=== PATIENT | female | born 1980 | race Two or more races ===

== ENCOUNTER 2024-03-18 18:36 | Observation (INO) | payer OTHER, SELFPAY ==
[2024-03-18] VITALS (17 sets, daily range): BP systolic 92–114; BP diastolic 52–69; PULSE 73–101; TEMP 37–37.1; O2SAT 94–100; BMI 36.3
--- NOTE | 2024-03-18 18:59 | XR_ITS ---
The [address] [address] Patient Name: MATTIE SKAGGS MRN: [id number] date: 1980 Sex: F Assigned Patient Location: ER Current Patient Location: ED.MAIN Accession/Order Number: [id number] Exam Date: 03/18/2024 20:20 Report Date: 03/18/2024 21:49 At the request of: KAYLYN GROVES Procedure: XR chest 1V EXAM: XR chest 1V HISTORY: weakness/ fatigue COMPARISON: None. TECHNIQUE: Chest X-ray AP, 1 view FINDINGS: Support devices: None. Lungs/pleura: No consolidation, effusion, or pneumothorax. Heart and mediastinum: Normal contours. Bones: No acute abnormality identified. XR/XR chest 1V Impression: No radiographic evidence of acute cardiopulmonary process. Electronically authenticated by: KRISS SULTANA Date: 03/18/2024 21:49
--- NOTE | 2024-03-18 18:59 | ECG_ITS ---
The [facility] Test Date: 2024-03-18 Pat Name: MATTIE SKAGGS Department: Room: - Gender: Female [employer]: : 1980 Requested By: ROX LEBRON Order Number: [id number] Reading MD: ROX LEBRON Measurements Intervals [place] Rate: 90 P: 46 UT: 200 QRS: 100 QRSD: 86 T: 60 QT: 370 QTc: 418 Interpretive Statements 1100 Sinus rhythm 1470 with occasional supraventricular premature complexes 7102 Moderate right axis deviation 9140 abnormal rhythm ECG No previous ECG available for comparison Electronically Signed On 03-19-2024 5:15:53 EST by ROX LEBRON
--- NOTE | 2024-03-18 19:01 | CT_ITS ---
The [address] [address] Patient Name: MATTIE SKAGGS MRN: [id number] date: 1980 Sex: F Assigned Patient Location: ER Current Patient Location: ER Accession/Order Number: [id number] Exam Date: 03/18/2024 20:20 Report Date: 03/18/2024 21:17 At the request of: KAYLYN GROVES Procedure: CT abdomen pelvis w con EXAM: CT abdomen pelvis w con HISTORY: abdominal pain, history of gastric by pass COMPARISON: None. TECHNIQUE: Axial CT imaging was performed through the abdomen and pelvis with intravenous contrast. Multiplanar reformats were performed. Dose reduction techniques were achieved by using automated exposure control and/or adjustment of mA and/or kV according to patient size and/or use of iterative reconstruction technique. FINDINGS: Lung bases: Lung bases are clear. No pleural effusion. GI upper: Gastric bypass surgery. Liver: The liver is cirrhotic in morphology and contour.. Gallbladder: Cholecystectomy. Biliary system: No intra or extrahepatic biliary ductal dilatation. Spleen: Normal size. Pancreas: Unremarkable. Adrenal glands: Normal adrenal glands. Kidneys/ureters: Normal contours. No hydronephrosis. No nephrolithiasis or ureterolithiasis. Vessels: No aneurysm. Lymph Nodes: No lymphadenopathy. Small bowel: No wall thickening or dilatation. Colon: No wall thickening or dilatation. Appendix: No findings of appendicitis. Peritoneal cavity: No free fluid or pneumoperitoneum. Lower : The uterus and left ovary are unremarkable. There is a 5 cm heterogeneous mass in the right ovary, containing macroscopic fat, representing teratoma. Nonemergent pelvic MRI with contrast is recommended for evaluation of benignity. Bones: No acute bony abnormality. Soft tissues: No acute finding. Additional findings: None. CT/CT abdomen pelvis w con IMPRESSION: No acute abnormality. A 5 cm heterogeneous mass in the right ovary, containing macroscopic fat, representing teratoma. Nonemergent pelvic MRI with contrast is recommended for evaluation of benignity. Electronically authenticated by: KRISS SULTANA Date: 03/18/2024 21:17
--- NOTE | 2024-03-18 19:05 | ED_ITS ---
HPI HPI - General Adult General Chief complaint: Skin/Abscess/Foreign Body Stated complaint: Abdominal Pain Time Seen by Provider: 03/18/24 18:45 Source: patient and friend Mode of arrival: walk-in Limitations: no limitations History of Present Illness HPI narrative: 43-year-old female with a pertinent history of gastric bypass surgery in May at [facility], Patient reports onset of fever and abdominal pain today. She took Tylenol earlier today. Patient had a normal bowel movement earlier today, reported feeling well yesterday. She denies any cough or congestion. Denies chest pain or shortness of breath. Patient states it has been several years since she has had cellulitis. Patient denies any vomiting or diarrhea. Patient notes that the skin on her abdomen has become thickened and hot with the development of her fever. Onset (ago): day(s) Location: Reports abdomen Severity: moderate Pain Consistency: Reports constant Relieving factors: Reports none Exacerbating factors: Reports none Related Data Previous Rx's ?Medication ?Instructions ?Recorded ciprofloxacin HCl 500 mg tablet 500 mg PO Q12H #30 tabs 03/20/24 (Cipro) clindamycin HCl 300 mg capsule 300 mg PO Q6H #60 caps 03/20/24 (Cleocin HCl) Allergies Allergy/AdvReac Type Severity Reaction Status Date / Time Penicillins Allergy Severe Anaphylaxis Verified 03/18/24 18:43 vancomycin Allergy Severe Kidney Verified 03/18/24 18:43 failure acetaminophen (From AdvReac Severe hallucinati Verified 03/18/24 18:43 Darvocet-N) on propoxyphene (From AdvReac Severe hallucinati Verified 03/18/24 18:43 Darvocet-N) on Opioid HPI Opioid Management Most Recent Opioid Data: Last Pain Assessment 03/20/24 11:52 Last ORT Total Score 0 03/19/24 11:38 03/19/24 Last ORT Risk Category Low Risk 03/19/24 11:38 03/19/24 Review of Systems ROS Constitutional Reports: fever and chills; Denies: change in weight Eyes Denies: change in vision Ears, nose, mouth, and throat Denies: throat pain or bad breath Cardiovascular Denies: chest pain or palpitations Respiratory Denies: shortness of breath, cough or wheezing Gastrointestinal Reports: abdominal pain; Denies: nausea, vomiting or diarrhea Musculoskeletal Denies: back pain, extremity pain or extremity swelling Integumentary/Breast Reports: skin pain, skin tenderness and skin swelling Neurological Denies: headache Psychiatric Denies: anxiety or mood swings [facility] Medical History (Updated 03/24/24 @ 00:01 by ) UTI (urinary tract infection) ?N39.0 - Urinary tract infection, site not specified (ICD-10) Cellulitis of abdominal wall ?L03.311 - Cellulitis of abdominal wall (ICD-10) Anxiety ?F41.9 - Anxiety disorder, unspecified (ICD-10) Lymphoma ?C85.90 - Non-Hodgkin lymphoma, unspecified, unspecified site (ICD-10) Surgical History (Updated 03/19/24 @ 11:06 by Sparkle Tillman RN) History of tonsillectomy ?Z90.89 - Acquired absence of other organs (ICD-10) History of cholecystectomy ?Z90.49 - Acquired absence of other specified parts of digestive tract (ICD- 10) Gastric bypass status for obesity ?Z98.84 - Bariatric surgery status (ICD-10) Family History (Updated 03/19/24 @ 11:07 by Sparkle Tillman RN) Father Family history of diabetes mellitus Family history of hypertension Grandmother Family history of cancer Family history of diabetes mellitus Grandfather Family history of diabetes mellitus Mother Family history of stroke Social History (Updated 03/19/24 @ 11:07 by Sparkle Tillman RN) Within the past year, how often did you have a drink containing alcohol: monthly or less Smoking status: Never smoker Non-prescribed substance use: denies use Little interest or pleasure in doing things: not at all Feeling down, depressed, or hopeless: not at all Exam Narrative Exam Narrative: Nurses notes and vital signs reviewed and patient is not hypoxic. General: The patient appears well notes that she feels fatigued. Patient is resting comfortably on cart. Skin: Warm, dry, no pallor noted. The pannus of the lower abdomen noted for thickening of the skin, peau d'orange appearance along with some mild erythema and notable tenderness. There is no erythema in the groin folds. Scar noted. no evidence of Rash. Suspected cellulitis to the lower abdomen pannus without evidence of circumferential involvement. Head: Normocephalic, atraumatic Neck: Supple, trachea mid-line, no tenderness, no lymphadenopathy Eye: Pupils are equal, round and reactive to light, EOMI Ears, Nose, Mouth, and Throat: TM are clear, normal light reflex, oral mucosa is moist, no posterior oropharynx erythema or hypertrophy, uvula is mid-line Cardiovascular: Regular Rate and Rhythm Respiratory: Patient is in no distress, no accessory muscle use, lungs are clear to auscultation, no wheezing, rales or rhonchi. Chest Wall: no tenderness Back: non-tender, no CVA tenderness, Musculoskeletal: normal ROM, no tenderness, moderate chronic appearing edema in lower legs. GI: Normal bowel sounds, tenderness to palpation, notable allodynia to the skin, no masses appreciated. No rebound, guarding, or rigidity noted. Neurological: A&O x4 Psychiatric: Cooperative Constitutional Vital Signs, click to edit/add: Last Vital Signs Temp 97.5 F L 03/20/24 07:32 Pulse 58 L 03/20/24 11:52 Resp 18 03/20/24 11:52 BP 114/73 03/20/24 11:52 Pulse Ox 95 03/20/24 11:52 O2 Del Method Room Air 03/20/24 11:52 Course Course Hospital Course: Patient with a history of recurrent abdominal wall cellulitis presented to emergency room with increasing pain and erythema and calor, CT scan did not show any abscess formation. Laboratory results consistent with sepsis. Patient was treated with IV antibiotics and fluids. Treated with Cipro and clindamycin. The following morning she was much improved the erythema is well inside the line of demarcation. She is no longer tender in her abdomen the calor is still persisting erythema is persisting but much improved. Patient did improve faster than anticipated. She feels comfortable going home, in light of the antibiotics chosen the and oral form as well will discharge patient to home in improving condition. Medications see list. Follow-up with her PCP within the next week. Vital Signs Vital signs: Vital Signs Temperature 98.6 F 03/18/24 18:44 Pulse Rate 98 H 03/18/24 18:44 Respiratory Rate 18 03/18/24 18:44 Blood Pressure 107/63 03/18/24 18:44 Pulse Oximetry 97 03/18/24 18:44 Oxygen Delivery Method Room Air 03/18/24 18:44 Temperature 97.5 F L 03/20/24 07:32 Pulse Rate 58 L 03/20/24 11:52 Respiratory Rate 18 03/20/24 11:52 Blood Pressure 114/73 03/20/24 11:52 Pulse Oximetry 95 03/20/24 11:52 Oxygen Delivery Method Room Air 03/20/24 11:52 Medical Decision Making [facility] Narrative Medical decision making narrative: Patient presents with clinical exam concerning for cellulitis to the lower abdomen, involves the main protruding fold of her pannus which is a large area, skin is thickened some erythema warmth is definitely appreciated. Patient has generalized some tenderness on palpation of the abdomen as well. Concern with recent gastric bypass surgery in May. Patient without vomiting or diarrhea. She notes a high fever at home and took Tylenol a few hours prior to arrival. Laboratory studies, blood cultures are pending, elevated lactic acid noted, CT of the abdomen and pelvis without evidence of acute intra-abdominal process, patient was made aware of teratoma suspected on CT, she was unaware and may require further imaging. Patient reported pain improved with medication given, sleeping but easily arousable. We discussed the IV clindamycin and reevaluation. She did respond to a 1 L IV fluid bolus and given her chest x-ray and BNP she will not be given additional fluid boluses unless needed. Given patient's area of skin involvement with suspected cellulitis to the abdomen and tenderness she will stay for observation pending some improvement in clinical symptoms. Patient agreeable to stay for observation. Patient's case was discussed with Dr. Barone the [facility] hospitalist. Lab Data Lab results reviewed: Yes I reviewed the patient's lab results Labs: Lab Results 03/18/24 03/18/24 03/18/24 Range/Units 19:02 20:40 21:29 WBC 9.5 (4.0-11.0) 10^3/uL RBC 3.48 L (4.20-5.40) 10^6/uL Hgb 10.7 L (12.0-16.0) g/dL Hct 32.3 L (36.0-48.0) % MCV 92.8 (81.0-99.0) fL MCH 30.7 (26.7-34.0) pg MCHC 33.1 (29.9-35.2) g/dL RDW 14.5 (11.0-15.0) % Plt Count 128 L (150-450) 10^3/uL MPV 10.4 (9.5-13.5) fL Neut % (Auto) 90.1 H (43.0-75.0) % Lymph % (Auto) 7.5 L (20.5-60.0) % Forrest % (Auto) 1.9 (1.7-12.0) % Eos % (Auto) 0.1 L (0.9-7.0) % Baso % (Auto) 0.1 L (0.2-2.0) % Neut # (Auto) 8.5 H (1.4-6.5) 10^3/uL Lymph # (Auto) 0.7 L (1.2-3.8) 10^3/uL Forrest # (Auto) 0.2 L (0.3-0.8) 10^3/uL Eos # (Auto) 0.0 (0.0-0.7) 10^3/uL Baso # (Auto) 0.0 (0.0-0.1) 10^3/uL Abs Immat Gran (auto) 0.03 (0.00-0.03) 10^3/uL Imm/Tot Granulo (auto) 0.3 (0.0-0.5) % ESR (<=20) mm/hr PT 12.6 H (9.0-11.6) sec INR 1.21 APTT 31.0 (22.3-36.2) sec Sodium 142 (136-145) mmol/L Potassium 4.0 (3.5-5.1) mmol/L Chloride 110 H (98-107) mmol/L Carbon Dioxide 21.0 (21.0-32.0) mmol/L Anion Gap 15.0 BUN 15.0 (7.0-18.0) mg/dL Creatinine 0.96 (0.55-1.02) mg/dL Est GFR ( Amer) >60 (>=60 mL/min/1.73m^2) Est GFR (Non-Af Amer) >60 (>=60 mL/min/1.73m^2) BUN/Creatinine Ratio 15.6 Glucose 139 H (74-106) mg/dL Lactate 2.6 H* 1.2 (0.4-2.0) mmol/L Calcium 8.0 L (8.5-10.1) mg/dL Magnesium (1.8-2.4) mg/dL Total Bilirubin 1.3 H (0.2-1.0) mg/dL AST 39 H (15-37) U/L ALT 35 (14-59) U/L Alkaline Phosphatase 101 (46-116) U/L Troponin I High Sens 6.9 (4.0-51.3) pg/mL C-Reactive Protein (<=0.50) mg/dL NT-Pro-B Natriuret Pep 1597.0 H* (<=450.0) pg/mL Total Protein 5.8 L (6.4-8.2) g/dL Albumin 2.5 L (3.4-5.0) g/dL Globulin 3.3 g/dL Albumin/Globulin Ratio 0.8 Urine Color Lt. yellow (YELLOW) Urine Clarity Clear (CLEAR) Urine pH 6.5 (5.0-9.0) Ur Specific Samson <=1.005 A (1.005-1.025) Urine Protein Negative (NEG/TRACE) mg/dL Urine Glucose (UA) Negative (NEGATIVE) mg/dL Urine Ketones Negative (NEGATIVE) mg/dL Urine Occult Blood Negative (NEGATIVE) Urine Nitrite Positive A (NEGATIVE) Urine Bilirubin Negative (NEGATIVE) Urine Urobilinogen 1.0 (0.2-1.0) EU/dL Ur Leukocyte Esterase Trace A (NEGATIVE) Urine RBC None seen (0-2) #/HPF Urine WBC 0-2 A (NONE SEEN) #/HPF Ur Squamous Epith Cells Rare (NONE/RARE) #/LPF Urine Crystals None seen (None Seen) #/HPF Urine Bacteria Moderate A (NONE SEEN) #/HPF Urine Casts None seen (NONE SEEN) #/LPF Urine Mucus None seen (NONE SEEN) Ur Culture Indicated? Yes 03/19/24 03/19/24 Range/Units 04:00 06:28 WBC 5.6 (4.0-11.0) 10^3/uL RBC 3.07 L (4.20-5.40) 10^6/uL Hgb 9.4 L (12.0-16.0) g/dL Hct 28.5 L (36.0-48.0) % MCV 92.8 (81.0-99.0) fL MCH 30.6 (26.7-34.0) pg MCHC 33.0 (29.9-35.2) g/dL RDW 14.5 (11.0-15.0) % Plt Count 106 L (150-450) 10^3/uL MPV 10.3 (9.5-13.5) fL Neut % (Auto) 73.1 (43.0-75.0) % Lymph % (Auto) 19.2 L (20.5-60.0) % Forrest % (Auto) 4.7 (1.7-12.0) % Eos % (Auto) 2.2 (0.9-7.0) % Baso % (Auto) 0.4 (0.2-2.0) % Neut # (Auto) 4.1 (1.4-6.5) 10^3/uL Lymph # (Auto) 1.1 L (1.2-3.8) 10^3/uL Forrest # (Auto) 0.3 (0.3-0.8) 10^3/uL Eos # (Auto) 0.1 (0.0-0.7) 10^3/uL Baso # (Auto) 0.0 (0.0-0.1) 10^3/uL Abs Immat Gran (auto) 0.02 (0.00-0.03) 10^3/uL Imm/Tot Granulo (auto) 0.4 (0.0-0.5) % ESR 10 (<=20) mm/hr PT (9.0-11.6) sec INR APTT (22.3-36.2) sec Sodium 142 (136-145) mmol/L Potassium 3.5 (3.5-5.1) mmol/L Chloride 109 H (98-107) mmol/L Carbon Dioxide 24.9 (21.0-32.0) mmol/L Anion Gap 11.6 BUN 13.0 (7.0-18.0) mg/dL Creatinine 0.67 (0.55-1.02) mg/dL Est GFR ( Amer) >60 (>=60 mL/min/1.73m^2) Est GFR (Non-Af Amer) >60 (>=60 mL/min/1.73m^2) BUN/Creatinine Ratio 19.4 Glucose 90 (74-106) mg/dL Lactate (0.4-2.0) mmol/L Calcium 8.2 L (8.5-10.1) mg/dL Magnesium 1.7 L (1.8-2.4) mg/dL Total Bilirubin 1.4 H (0.2-1.0) mg/dL AST 30 (15-37) U/L ALT 26 (14-59) U/L Alkaline Phosphatase 86 (46-116) U/L Troponin I High Sens 4.4 (4.0-51.3) pg/mL C-Reactive Protein 5.46 H (<=0.50) mg/dL NT-Pro-B Natriuret Pep 1676.0 H* (<=450.0) pg/mL Total Protein 5.3 L (6.4-8.2) g/dL Albumin 2.3 L (3.4-5.0) g/dL Globulin 3.0 g/dL Albumin/Globulin Ratio 0.8 Urine Color (YELLOW) Urine Clarity (CLEAR) Urine pH (5.0-9.0) Ur Specific Samson (1.005-1.025) Urine Protein (NEG/TRACE) mg/dL Urine Glucose (UA) (NEGATIVE) mg/dL Urine Ketones (NEGATIVE) mg/dL Urine Occult Blood (NEGATIVE) Urine Nitrite (NEGATIVE) Urine Bilirubin (NEGATIVE) Urine Urobilinogen (0.2-1.0) EU/dL Ur Leukocyte Esterase (NEGATIVE) Urine RBC (0-2) #/HPF Urine WBC (NONE SEEN) #/HPF Ur Squamous Epith Cells (NONE/RARE) #/LPF Urine Crystals (None Seen) #/HPF Urine Bacteria (NONE SEEN) #/HPF Urine Casts (NONE SEEN) #/LPF Urine Mucus (NONE SEEN) Ur Culture Indicated? Imaging Data CT scan - abdomen: Radiologist's impression: ITS Impressions Chest X-Ray 03/18/24 18:59 Impression: No radiographic evidence of acute cardiopulmonary process. Electronically authenticated by: KRISS SULTANA Date: 03/18/2024 21:49 Abdomen/Pelvis CT 03/18/24 19:01 IMPRESSION: No acute abnormality. A 5 cm heterogeneous mass in the right ovary, containing macroscopic fat, representing teratoma. Nonemergent pelvic MRI with contrast is recommended for evaluation of benignity. Electronically authenticated by: KRISS SULTANA Date: 03/18/2024 21:17 ECG Data Attestation: I personally reviewed and interpreted this ECG as follows: Interpretation: EKG interpretation: Emergency Department physician interpretation, normal sinus rhythm 90 NSR, no ectopy, no ST segment elevation, right axis deviation. Discharge Plan Discharge Chief Complaint: Skin/Abscess/Foreign Body Clinical Impression: Cellulitis of abdominal wall, UTI (urinary tract infection) Patient Disposition: Admitted as Observation Time of Disposition Decision: 21:42 Condition: Good Discharge Date/Time: 03/19/24 10:54
[2024-03-18 19:20] LABS: Basophils Percent Auto 0.1 % (0.2-2.0); Eosinophils Percent Auto 0.1 % (0.9-7.0); Hematocrit 32.3 % (36.0-48.0); Hemoglobin 10.7 g/dL (12.0-16.0); Immature Granulocytes Abs Auto 0.03 10^3/uL (0.00-0.03); Immature Granulocytes Pct Auto 0.3 % (0.0-0.5); Lymphocytes Absolute Auto 0.7 10^3/uL (1.2-3.8); Lymphocytes Percent Auto 7.5 % (20.5-60.0); Mean Corpuscular HGB Conc 33.1 g/dL (29.9-35.2); Mean Corpuscular Hemoglobin 30.7 pg (26.7-34.0); Mean Corpuscular Volume 92.8 fL (81.0-99.0); Mean Platelet Volume 10.4 fL (9.5-13.5); Monocytes Absolute Auto 0.2 10^3/uL (0.3-0.8); Monocytes Percent Auto 1.9 % (1.7-12.0); Neutrophils Absolute Auto 8.5 10^3/uL (1.4-6.5); Neutrophils Percent Auto 90.1 % (43.0-75.0); Platelet Count 128 10^3/uL (150-450); Red Blood Count 3.48 10^6/uL (4.20-5.40); Red Cell Distribution Width 14.5 % (11.0-15.0); White Blood Count 9.5 10^3/uL (4.0-11.0)
[2024-03-18 19:44] LABS: Alanine Aminotransferase 35 U/L (14-59); Albumin Globulin Ratio 0.8; Albumin Level 2.5 g/dL (3.4-5.0); Alkaline Phosphatase 101 U/L (46-116); Aspartate Amino Transferase 39 U/L (15-37); BUN Creatinine Ratio 15.6; Bilirubin Total 1.3 mg/dL (0.2-1.0); Chloride 110 mmol/L (98-107); Estimated GFR (African America >60 (>=60 mL/min/1.73m^2); Estimated GFR (Non-African Ame >60 (>=60 mL/min/1.73m^2); Globulin 3.3 g/dL; Glucose 139 mg/dL (74-106); Sodium 142 mmol/L (136-145); Total Protein 5.8 g/dL (6.4-8.2); Troponin I High Sensitivity 6.9 pg/mL (4.0-51.3)
[2024-03-18 19:45] LABS: INR 1.21; Prothrombin Time 12.6 sec (9.0-11.6)
[2024-03-18 19:51] LABS: Lactate/Lactic Acid 2.6 mmol/L (0.4-2.0)
[2024-03-18] MEDS: 0.9 % SODIUM CHLORIDE 1,000 ML 999 ML IV (19:51)
[2024-03-18] MEDS: FENTANYL CITRATE/PF 100 MCG/2 ML VIAL 50 MCG IV (19:53)
[2024-03-18] MEDS: CLINDAMYCIN PHOSPHATE/D5W 900 MG/50 ML PREMIX 100 MG IV (19:54)
[2024-03-18 21:02] LABS: Bilirubin Urine NEGATIVE (NEGATIVE); Blood Urine NEGATIVE (NEGATIVE); Clarity Urine CLEAR (CLEAR); Color Urine LT. YELLOW (YELLOW); Glucose Urine UA NEGATIVE (NEGATIVE); Ketones Urine NEGATIVE (NEGATIVE); Leukocyte Esterase Urine TRACE (NEGATIVE); Nitrite Urine POSITIVE (NEGATIVE); Protein Urine NEGATIVE (NEG/TRACE); Specific Gravity Urine <=1.005 (1.005-1.025); pH Urine 6.5 (5.0-9.0)
[2024-03-18 21:04] LABS: Urine Microscopic Indicated YES
[2024-03-18 21:11] LABS: Bacteria Urine MODERATE #/HPF (NONE SEEN); Cast Seen? NONE SEEN #/LPF (NONE SEEN); Crystals Seen? None Seen #/HPF (None Seen); Mucus Urine NONE SEEN (NONE SEEN); RBC Urine NONE SEEN #/HPF (0-2); Squamous Epithelial Cell Urine RARE #/LPF (NONE/RARE); Urine Culture Indicated YES; WBC Urine 0-2 #/HPF (NONE SEEN)
[2024-03-18 21:59] LABS: Lactate/Lactic Acid 1.2 mmol/L (0.4-2.0)
[2024-03-18] MEDS: LEVOFLOXACIN 500 MG TABLET 250 MG PO (22:44)
--- NOTE | 2024-03-18 22:48 | PC.NURSE ---
this patient is up and ambulated to the restroom with out any problems
[2024-03-19] VITALS (30 sets, daily range): BP systolic 95–111; BP diastolic 55–73; PULSE 66–86; TEMP 36.6–37; O2SAT 93–98; BMI 36.3
[2024-03-19 04:11] LABS: Basophils Percent Auto 0.4 % (0.2-2.0); Eosinophils Absolute Auto 0.1 10^3/uL (0.0-0.7); Eosinophils Percent Auto 2.2 % (0.9-7.0); Hematocrit 28.5 % (36.0-48.0); Hemoglobin 9.4 g/dL (12.0-16.0); Immature Granulocytes Abs Auto 0.02 10^3/uL (0.00-0.03); Immature Granulocytes Pct Auto 0.4 % (0.0-0.5); Lymphocytes Absolute Auto 1.1 10^3/uL (1.2-3.8); Lymphocytes Percent Auto 19.2 % (20.5-60.0); Mean Corpuscular Hemoglobin 30.6 pg (26.7-34.0); Mean Corpuscular Volume 92.8 fL (81.0-99.0); Mean Platelet Volume 10.3 fL (9.5-13.5); Monocytes Absolute Auto 0.3 10^3/uL (0.3-0.8); Monocytes Percent Auto 4.7 % (1.7-12.0); Neutrophils Absolute Auto 4.1 10^3/uL (1.4-6.5); Neutrophils Percent Auto 73.1 % (43.0-75.0); Platelet Count 106 10^3/uL (150-450); Red Blood Count 3.07 10^6/uL (4.20-5.40); Red Cell Distribution Width 14.5 % (11.0-15.0); White Blood Count 5.6 10^3/uL (4.0-11.0)
[2024-03-19] MEDS: CLINDAMYCIN PHOSPHATE/D5W 900 MG/50 ML PREMIX 100 MG IV ×2 (04:16→11:45)
[2024-03-19 04:27] LABS: Alanine Aminotransferase 26 U/L (14-59); Albumin Globulin Ratio 0.8; Albumin Level 2.3 g/dL (3.4-5.0); Alkaline Phosphatase 86 U/L (46-116); Anion Gap 11.6; Aspartate Amino Transferase 30 U/L (15-37); BUN Creatinine Ratio 19.4; Bilirubin Total 1.4 mg/dL (0.2-1.0); Calcium 8.2 mg/dL (8.5-10.1); Carbon Dioxide 24.9 mmol/L (21.0-32.0); Chloride 109 mmol/L (98-107); Estimated GFR (African America >60 (>=60 mL/min/1.73m^2); Estimated GFR (Non-African Ame >60 (>=60 mL/min/1.73m^2); Glucose 90 mg/dL (74-106); Magnesium 1.7 mg/dL (1.8-2.4); Potassium 3.5 mmol/L (3.5-5.1); Sodium 142 mmol/L (136-145); Total Protein 5.3 g/dL (6.4-8.2)
[2024-03-19] MEDS: CIPROFLOXACIN IN 5 % DEXTROSE 400 MG/200 ML PREMIX 200 MG IV ×2 (06:44→17:15)
[2024-03-19 07:03] LABS: C Reactive Protein 5.46 mg/dL (<=0.50); Troponin I High Sensitivity 4.4 pg/mL (4.0-51.3)
[2024-03-19 07:11] LABS: Erythrocyte Sedimentation Rate 10 mm/hr (<=20)
--- NOTE | 2024-03-19 08:24 | CA_ITS ---
Patient Name: MATTIE SKAGGS MR#: [id number] : 1980 Exam Date: 03/19/2024 Ordering Doctor: DR Justin Mohan . ECHOCARDIOGRAM REPORT PROCEDURE: CA ECHO DOPPLER COMPLETE INDICATIONS: edema, elevated BNP COMPARISON: None. DESCRIPTION: COMPLETE ECHOCARDIOGRAM Real-time transthoracic echocardiography with 2D, M-mode, spectral and color flow Doppler performed. QUALITY: Technical quality was good. LEFT VENTRICLE: Mild dilatation. Borderline wall thickness. Global left ventricular systolic function is normal. LV EF: Estimated left ventricular ejection fraction is 60%. DIASTOLIC: Grade II diastolic dysfunction. ATRIAL SEPTUM: LEFT ATRIUM: Moderate dilatation. RIGHT ATRIUM: Moderate dilatation. RIGHT VENTRICLE: Normal chamber size. Normal right ventricular systolic function. TRICUSPID VALVE: Normal mobility and thickness. No stenosis with mild to moderate regurgitation. Moderate pulmonary hypertension. RVSP 46 mmHg. MITRAL VALVE: Normal mobility and thickness. No evidence of mitral valve stenosis. There is no mitral annular calcification. Mild to moderate mitral regurgitation. AORTIC VALVE: Normal trileaflet appearance. No visible sclerosis. Normal leaflet mobility. No evidence of aortic valve stenosis. No aortic regurgitation. AORTIC ROOT: Normal diameter and appearance. PULMONIC VALVE: Normal thickness and mobility. No stenosis. Trivial regurgitation. PERICARDIUM: No evidence of pericardial effusion. IVC: Collapses with inspirations. Moderately dilated measuring 2.6cm. PLEURA: CONCLUSION: 1. The left ventricle is mildly dilated and exhibits normal systolic function. LVEF is estimated at 60%. 2. Normal right ventricular size and systolic function. 3. Grade 2 diastolic dysfunction. 4. Moderate biatrial dilatation. 5. Mild to moderate tricuspid and mitral regurgitation. 6. Moderately elevated right-sided pressures. Adult Echocardiography Procedure Report Left Ventricle LVEDD (3.7 - 5.6 cm): 5.66 cm LVESD (2.2 - 4.0 cm): 4.06 cm LVIVS thickness (0.6 - 1.2 cm): 1.08 cm LVPW thickness (0.5 - 1.0 cm): 0.84 cm e': 0.09 m/s E - e': 11.88 LVOT Max Gradient: 7.37 mm[Hg] LVOT Area (cm2): 1.36 m/s Peak Velocity (LVOT): 1.36 m/s Mean Velocity (LVOT): 0.96 m/s LVOT Diameter 2.16 cm Left Ventricular Ejection Fraction: 60 % Left Atrium LA Volume Index (2D A2C): 46.86 ml/m2 Left Atrium Systolic Dimension: 4.87 cm Mitral Valve MV E to A Ratio: 1.31 Mitral Valve A-Wave Peak Velocity: 0.84 m/s Mitral Valve E-Wave Peak Velocity: 1.10 m/s Right Ventricle RV Internal Diastolic Dimension: 3.90 cm Aorta AO Root Diam: 2.89 cm Ascending Ao Diam: 2.74 cm Aortic Valve AoV Area (Peak Yosi): 2.96 cm2, 2.96 cm2 AoV Area (VTI): 2.63 cm2, 2.63 cm2 Peak Velocity(Antegrade Flow): 1.69 m/s Peak Gradient(Antegrade Flow): 11.36 mm[Hg] Mean Velocity(Antegrade Flow): 1.24 m/s Mean Gradient(Antegrade Flow): 6.98 mm[Hg] Velocity Time Integral: 40.74 cm Tricuspid Valve Peak Velocity (Regurgitant Flow): 2.80 m/s, 2.90 m/s, 3.13 m/s, 3.07 m/s Pulmonic Valve Mean Gradient: 3.86 mm[Hg], 5.10 mm[Hg], 3.97 mm[Hg] Mean Velocity: 0.89 m/s, 1.08 m/s, 0.92 m/s Peak Velocity: 1.43 m/s Peak Gradient: 8.93 mm[Hg], 8.42 mm[Hg], 7.33 mm[Hg] Right Atrium Right Atrium Systolic Pressure: 74.87 ml, 74.87 ml Dictated by: Peter Martinez M.D. on 03/20/2024 at 10:16 Approved by: Peter Martienz M.D. on 03/20/2024 at 10:20
--- NOTE | 2024-03-19 08:28 | P.HP_ITS ---
HPI H&P: HPI History of Present Illness Chief complaint: Abdominal Pain Narrative: Patient presented to the emergency room with increasing erythema and abdominal pain. She has a history of abdominal wall cellulitis. That was in the significant past. She has a history of gastric bypass surgery. She noted home to have fever and chills. The fever was up to 103.7. When I saw patient in the emergency room, she was resting comfortably in bed. Only has pain when she moves. No shortness of breath no chest pain she does notice that her should have more swelling in her lower extremities than she normally has. Laboratory evaluation mentation shows positive BNP. Opioid HPI Opioid Management Most Recent Pain and Opioid Data: No Data to Display Review of Systems ROS Status of ROS 10 or more systems reviewed and unremark able except as noted in history and below [facility] Surgical History (Updated 03/19/24 @ 07:01 by Jonathan Olmos RN) Gastric bypass status for obesity ?Z98.84 - Bariatric surgery status (ICD-10) Social History Little interest or pleasure in doing things: not at all Feeling down, depressed, or hopeless: not at all Meds Home Medications and Allergies Home Medications ?Medication ?Instructions ?Recorded ?Confirmed ?Type No Known Home Medications 03/18/24 03/18/24 History Allergies Allergy/AdvReac Type Severity Reaction Status Date / Time Penicillins Allergy Severe Anaphylaxis Verified 03/18/24 18:43 vancomycin Allergy Severe Kidney Verified 03/18/24 18:43 failure acetaminophen (From AdvReac Severe hallucinati Verified 03/18/24 18:43 Darvocet-N) on propoxyphene (From AdvReac Severe hallucinati Verified 03/18/24 18:43 Darvocet-N) on Exam Constitutional Vital Signs, click to edit/add: Last Vital Signs Temp 98.6 F 03/19/24 04:02 Pulse 76 03/19/24 06:30 Resp 17 03/19/24 06:30 BP 108/65 03/19/24 07:00 Pulse Ox 94 L 03/19/24 06:30 O2 Del Method Room Air 03/19/24 05:03 Documenting provider has reviewed patient's vital signs: yes Common normals: no apparent distress HENMT Common normals: normocephalic Chest Common normals: inspection of chest normal Respiratory Common normals: normal respiratory effort and no retractions; not clear to ascultation bilaterally Auscultation: rales (In the bases) Cardio Common normals: regular rate and regular rhythm GI Common normals: negative for Normal to inspection, nondistended, normoactive bowel sounds present (Significant erythema in the abdominal wall, diffusely tender,pos calor) Extremity Common normals: abnormal to inspection (2-3+ edema bilateral lower extremities) Neuro Common normals: oriented x3 Results Labs Labs: Short CBC 03/18/24 03/19/24 Range/Units 19:02 04:00 WBC 9.5 5.6 (4.0-11.0) 10^3/uL Hgb 10.7 L 9.4 L (12.0-16.0) g/dL Hct 32.3 L 28.5 L (36.0-48.0) % Plt Count 128 L 106 L (150-450) 10^3/uL BMP 03/18/24 03/19/24 19:02 04:00 Sodium 142 142 Potassium 4.0 3.5 Chloride 110 H 109 H Carbon Dioxide 21.0 24.9 BUN 15.0 13.0 Creatinine 0.96 0.67 Glucose 139 H 90 Calcium 8.0 L 8.2 L Liver Function 03/18/24 03/19/24 Range/Units 19:02 04:00 Total Bilirubin 1.3 H 1.4 H (0.2-1.0) mg/dL AST 39 H 30 (15-37) U/L ALT 35 26 (14-59) U/L Alkaline Phosphatase 101 86 (46-116) U/L Albumin 2.5 L 2.3 L (3.4-5.0) g/dL Urine 03/18/24 Range/Units 20:40 Urine Color Lt. yellow (YELLOW) Urine Clarity Clear (CLEAR) Urine pH 6.5 (5.0-9.0) Ur Specific [place] <=1.005 A (1.005-1.025) Urine Protein Negative (NEG/TRACE) mg/dL Urine Glucose (UA) Negative (NEGATIVE) mg/dL Assessment and Plan Assessment and Plan (1) UTI (urinary tract infection): (2) Cellulitis of abdominal wall: (3) Gastric bypass status for obesity: Plan Admission findings: Hypotension, fever to 103.7, normal white blood cell count but with significant left shift, thrombocytopenia, positive lactic acidosis, positive CRP, elevated BNP, resulting in sepsis Abdominal wall cellulitis resulting in sepsis with lactic acidosis-IV antibiotics, need to hold off on penicillin or derivatives secondary to severe allergy. Medications see list. Cultures pending. Will have the area marked Acute elevation in BNP can and exam consistent with acute combined congestive heart failure-check echocardiogram, patient has no history of acute combined congestive heart failure, high-sensitivity troponin is negative Hypomagnesemia-supplement Hyperbilirubinemia-CT scan not consistent with acute changes on liver NIDDM-by history-will check Accu-Cheks, likely elevated secondary to the sepsis as outlined above Status post gastric bypass-diet management Thrombocytopenia likely secondary to the sepsis-monitor daily Iron deficiency anemia-likely secondary to gastric bypass-monitor daily Admission status: Patient with rapidly progressing over the last 12 to 16 hours cellulitis of the abdominal wall-history of this in the past. With the rapid progression, combined with the acute combined congestive heart failure and workup for that, medically necessary treatment will span 2 midnights. Inpatient status.
[2024-03-19] MEDS: MAGNESIUM OXIDE 400 MG TABLET PO ×2 (10:21→20:16)
[2024-03-19 11:38] LABS: Glucometer 97 mg/dL (74-106)
[2024-03-19] MEDS: FUROSEMIDE 40 MG/4 ML VIAL IVP (11:45)
[2024-03-19] MEDS: 0.9 % SODIUM CHLORIDE 250 ML 10 ML IV (12:56)
[2024-03-19 16:43] LABS: Glucometer 93 mg/dL (74-106)
[2024-03-19 19:30] LABS: Glucometer 102 mg/dL (74-106)
[2024-03-19] MEDS: CLINDAMYCIN PHOS 900 MG/50 ML D5W PREMIX 100 MG IV (20:16)
[2024-03-20 00:31] VITALS: BP 98/61; PULSE 70; TEMP 37.2; O2SAT 93
[2024-03-20 04:09] VITALS: O2SAT 92
[2024-03-20 04:26] VITALS: BP 108/67; PULSE 67; TEMP 36.8; O2SAT 93
[2024-03-20] MEDS: CLINDAMYCIN PHOS 900 MG/50 ML D5W PREMIX 100 MG IV (04:29)
[2024-03-20] MEDS: CIPROFLOXACIN IN 5 % DEXTROSE 400 MG/200 ML PREMIX 200 MG IV (05:18)
--- NOTE | 2024-03-20 05:59 | P.PN_ITS ---
Exam Constitutional Vital Signs, click to edit/add: Last Vital Signs Temp 98.3 F 03/20/24 04:26 Pulse 67 03/20/24 04:26 Resp 18 03/20/24 04:26 BP 108/67 03/20/24 04:26 Pulse Ox 93 L 03/20/24 04:26 O2 Del Method Room Air 03/20/24 04:26 Progress Note: Objective Labs Labs: Short CBC 03/18/24 Range/Units 19:02 WBC 9.5 (4.0-11.0) 10^3/uL Hgb 10.7 L (12.0-16.0) g/dL Hct 32.3 L (36.0-48.0) % Plt Count 128 L (150-450) 10^3/uL BMP 03/18/24 19:02 Sodium 142 Potassium 4.0 Chloride 110 H Carbon Dioxide 21.0 BUN 15.0 Creatinine 0.96 Glucose 139 H Calcium 8.0 L Liver Function 03/18/24 Range/Units 19:02 Total Bilirubin 1.3 H (0.2-1.0) mg/dL AST 39 H (15-37) U/L ALT 35 (14-59) U/L Alkaline Phosphatase 101 (46-116) U/L Albumin 2.5 L (3.4-5.0) g/dL Progress Note: A&P Assessment and Plan (1) UTI (urinary tract infection): (2) Cellulitis of abdominal wall: (3) Gastric bypass status for obesity: Plan Admission findings: Hypotension, fever to 103.7, normal white blood cell count but with significant left shift, thrombocytopenia, positive lactic acidosis, positive CRP, elevated BNP, resulting in sepsis Abdominal wall cellulitis resulting in sepsis with lactic acidosis-IV antibiotics, need to hold off on penicillin or derivatives secondary to severe allergy. Medications see list. Cultures pending. Will have the area marked Acute elevation in BNP can and exam consistent with acute combined congestive heart failure-check echocardiogram, patient has no history of acute combined congestive heart failure, high-sensitivity troponin is negative Hypomagnesemia-supplement Hyperbilirubinemia-CT scan not consistent with acute changes on liver NIDDM-by history-will check Accu-Cheks, likely elevated secondary to the sepsis as outlined above Status post gastric bypass-diet management Thrombocytopenia likely secondary to the sepsis-monitor daily Iron deficiency anemia-likely secondary to gastric bypass-monitor daily Admission status: Patient with rapidly progressing over the last 12 to 16 hours cellulitis of the abdominal wall-history of this in the past. With the rapid progression, combined with the acute combined congestive heart failure and workup for that, medically necessary treatment will span 2 midnights. Inpatient status. ?
[2024-03-20 06:01] LABS: Basophils Percent Auto 0.3 % (0.2-2.0); Eosinophils Absolute Auto 0.2 10^3/uL (0.0-0.7); Eosinophils Percent Auto 5.7 % (0.9-7.0); Hematocrit 28.5 % (36.0-48.0); Hemoglobin 9.4 g/dL (12.0-16.0); Immature Granulocytes Abs Auto 0.01 10^3/uL (0.00-0.03); Immature Granulocytes Pct Auto 0.3 % (0.0-0.5); Lymphocytes Absolute Auto 1.2 10^3/uL (1.2-3.8); Lymphocytes Percent Auto 34.5 % (20.5-60.0); Mean Corpuscular Hemoglobin 30.5 pg (26.7-34.0); Mean Corpuscular Volume 92.5 fL (81.0-99.0); Mean Platelet Volume 10.2 fL (9.5-13.5); Monocytes Absolute Auto 0.3 10^3/uL (0.3-0.8); Neutrophils Absolute Auto 1.7 10^3/uL (1.4-6.5); Neutrophils Percent Auto 51.2 % (43.0-75.0); Platelet Count 114 10^3/uL (150-450); Red Blood Count 3.08 10^6/uL (4.20-5.40); Red Cell Distribution Width 14.4 % (11.0-15.0); White Blood Count 3.4 10^3/uL (4.0-11.0)
[2024-03-20 06:25] LABS: Alanine Aminotransferase 21 U/L (14-59); Albumin Globulin Ratio 0.7; Albumin Level 2.2 g/dL (3.4-5.0); Alkaline Phosphatase 80 U/L (46-116); Anion Gap 12.9; Aspartate Amino Transferase 27 U/L (15-37); BUN Creatinine Ratio 20.3; Bilirubin Total 0.8 mg/dL (0.2-1.0); C Reactive Protein 6.05 mg/dL (<=0.50); Calcium 7.7 mg/dL (8.5-10.1); Carbon Dioxide 26.6 mmol/L (21.0-32.0); Chloride 110 mmol/L (98-107); Estimated GFR (African America >60 (>=60 mL/min/1.73m^2); Estimated GFR (Non-African Ame >60 (>=60 mL/min/1.73m^2); Glucose 92 mg/dL (74-106); Potassium 3.5 mmol/L (3.5-5.1); Sodium 146 mmol/L (136-145); Total Protein 5.2 g/dL (6.4-8.2)
--- OUTSIDE RECORDS SUMMARY | 2024-03-20 06:34 | XMS_ITS | CCD ---
Author Organization [facility] Care Team Providers Care Frame Operator Name Role Phone PHYSICIAN, DEFAULT Unavailable Unavailable PHYSICIAN, DEFAULT Unavailable Unavailable Josse Dumont Primary Care Provider CEZAR SIM Admitting Unavailable CEZAR SIM Attending Unavailable CEZAR SIM Consulting Unavailable CEZAR SIM Admitting Unavailable NADCEZAR DOZIER Attending Unavailable MISC, DOCTOR Primary Care Unavailable MAURY FARLEY Consulting Unavailable ECZAR SIM Admitting Unavailable CEZAR SIM Attending Unavailable CEZAR SIM Consulting Unavailable NABOR DECKER Consulting Unavailable SHAYY AREVALO V Admitting Unavailable SHAYY AREVALO V Attending Unavailable CLINKER, RAMÍREZ Admitting Unavailable CLINKER, RAMÍREZ Attending Unavailable CEZAR SIM Primary Care Unavailable NADTASIA, CEZAR House Primary Care Unavailable JUSTIN LEBRON Consulting Unavailable CEZAR SIM Admitting Unavailable NADTASIA, CEZAR House Attending Unavailable MAURY FARLEY Consulting Unavailable CEZAR SIM Consulting Unavailable MIGNON COTTON Consulting Unavailable DIVINE GOLDBERG Consulting Unavailable LINA WAY Consulting Unavailable ANDREW DURHAM Consulting Unavailable FILIBERTO SANCHEZ Admitting Unavaildeana e FILIBERTO SANCHEZ Attending Unavailabl e REQUEST, NONE LISTED Primary Care Unavailable JUSTIN LEBRON Admitting Unavailable JUSTIN LEBRON Attending Unavailable LANA CASTILLO Consulting Unavailable JUSTIN LEBRON Consulting Unavailable MENG CHAIREZ Consulting Unavailable Isma Christiansen Consulting Unavailable ELI LAMB Attending Unavailable DARNELL MILLER Referring Unavailable PERNELL GUTIERREZ Consulting Unavailable JESÚS NGUYEN Admitting Unavailable LAZARO SUN Consulting Unavailable JOLIE SEBASTIAN Consulting Unavailable SMITH DIAZ Consulting Unavailable ELI LAMB Consulting Unavailable AD RAMOS Consulting Unavailable NATALIE WOLF R Consulting Unavailable AL-NSOUR, MOHAMMAD A Consulting Unavailable JESÚS NGUYEN Consulting Unavailable Unavailable Primary Care Provider UnavailMD MARIA ELENA Magaña Referring Unavailable Ramsey Hoover Attending Unavailable Ramsey Hoover Attending Unavailable Unavailable Primary Care Provider UnavailJustin Corbin MD Primary Care Provider JUSTIN LEBRON Primary Care Unavailable SHAYY NIELSON Attending Unavailable Rajendra Saldana Primary Care Provider [phone] Marisol Bernard Primary Care Physician [phone] LYNDSAY BARAHNOA Primary Care Physician [phone] NON STAFF Attending Provider Unavailable Mignon Childress Attending Provider NO FAMILY, PHYSICIAN Primary Care Provider Unava ilable Mignon Childress Attending Provider NON STAFF Attending Provider Unavailable Mignon Childress Admitting Unavailable NO FAMILY, PHYSICIAN Primary Care Unavailable Mignon Childress Attending Unavailable NO FAMILY, PHYSICIAN Primary Care Unavailable Mignon Childress Attending Unavailable Mignon Childress Admitting Unavailable NO FAMILY, PHYSICIAN Primary Care Unavailable Mignon Childress Attending Unavailable Mignon Childress Admitting Unavailable JUSTIN LEBRON Primary Care Unavailable [place], SASIKALA T Admitting Unavailabl e [place], SASIKALA T Attending Unavailabl e ARMINDA SEGAL Attending Unavailable ENIX, PHILIP Referring Unavailable ENIX, PHILIP Referring Unavailable ENIX, PHILIP Attending Unavailable ENIX, PHILIP Attending Unavailable GISELA CHIN Attending Unavailable Adamowicz, Mino Admitting Unavailable Adamowicz, Mino Attending Unavailable Jack Young Attending Unavailable CLOAKARISTIDES Attending Unavailable Adamowicz, Mino Attending Unavailable CLOAK, ARISTIDES L Attending Unavailable Adamowicz, Mino Attending Unavailable Adamowicz, Mino Attending Unavailable CLOAK, ARISTIDES L Referring Unavailable Adamowicz, Mino Consulting Unavailable CLOAK, ARISTIDES L Admitting Unavailable CLOAK, ARISTIDES L Attending Unavailable Adamowicz, DO Mino Consulting Unavailabl e Adamowicz, Mino Consulting Unavailable Adamowicz, Mino Consulting Unavailable Adamowicz, Mino Consulting Unavailable Adamowicz, Mino Consulting Unavailable Adamowicz, Mino Consulting Unavailable Adamowicz, Mino Consulting Unavailable Adamowicz, Mino Consulting Unavailable Adamowicz, Mino Attending Unavailable Adamowicz, Mino Admitting Unavailable SIDELL, LYNDSAY W Admitting Unavailable SIDELL, LYNDSAY W Attending Unavailable LALOR, PETER Admitting Unavailable LALOR, PETER Attending Unavailable FORTINO, DECK SUPERVISOR PASCUAL J Admitting Unavailable FORTINO, DECK SUPERVISOR PASCUAL J Attending Unavailable Adamowicz, Mino Attending Unavailable Adamowicz, Mino Attending Unavailable CLOARISTIDES MARADIAGA L Attending Unavailable DOLCE, CEZAR Siddiqi Attending Unavailable DOLCE, CEZAR Siddiqi Attending Unavailable DOLCE, CEZAR Siddiqi Attending Unavailable DOLCE, CEZAR Siddiqi Attending Unavailable Unallocated MD, Noms Provider Primary Care Provi va Lyndsay Barahona MD Unavailable Allergies Allergy Classification Reported Allergen(s) Allergy Type Date of Onset Reaction(s) Facility acetaminophen / propoxyphene (2 sources) acetaminophen / propoxyphene; Translations: [acetaminophen-pr opoxyphene] Drug Allergy Hives [facility] Glycopeptides (antibiotic) (1 source) Vancomycin; Translations: [vancomycin] Drug Allergy Anaphylactic reaction, kidney failure [facility] Penicillins (antibiotic) (1 source) Penicillin; Translations: [penicillin] Drug Allergy Tachycardia (finding) [facility] Comment on above: Patient stated she m ay be allergic to this medication. She believes she may have had an allergic reaction to this medication at [facility]. Piperacillin / tazobactam (1 source) Piperacillin / tazobactam; Translations: [piperacillin-moreno obactam] Drug Allergy shortness of breath [facility] (10 sources) Propoxyphene; Translations: [PROPOXYPHENE] Drug Allergy 05-21-19 16 [facility] [place] (1 source) Acetaminophen / oxyCODONE Drug Allergy [facility] (3 sources) Piperacillin / tazobactam; Translations: [Zosyn] Drug Allergy 12-07-19 20 [facility] (8 sources) Vancomycin; Translations: [VANCOMYCIN] Drug Allergy 05-09-19 18 kidney failure [facility] (4 sources) Darvocet-N 100; Translations: [Darvocet-N 100] Drug allergy (disorder) 04-12-20 14 [facility] (7 sources) Penicillins; Translations: [PENICILLINS] Propensity to adverse reactions to drug 04-21-20 Swelling [facility] [place] [place] (20 sources) Vancomycin; Translations: [vancomycin] Drug Allergy 04-30-20 20 Rash, Unknown [facility] (5 sources) Penicillins Drug Allergy 07-22-19 Other: See Comments [facility] (20 sources) Piperacillin / tazobactam; Translations: [piperacillin-moreno obactam] Drug Allergy 07-22-19 22 Unknown [facility] (6 sources) Propoxyphene N-Acetaminophen; Translations: [PROPOXYPHENE N-ACETAMINOPHEN] Drug Allergy 09-25-19 17 [facility] (20 sources) acetaminophen / propoxyphene; Translations: [acetaminophen-pr opoxyphene] Drug Allergy [facility] (20 sources) Penicillin; Translations: [penicillin] Drug Allergy Tachycardia (finding) [facility] Comment on above: Patient stated she m ay be allergic to this medication. She believes she may have had an allergic reaction to this medication at [facility]. (1 source) Penicillins Drug allergy (disorder) 12-10-19 [facility] (1 source) Propoxyphene Drug Allergy 12-10-19 [facility] (1 source) Vancomycin Drug Allergy 12-10-19 [facility] (3 sources) Acetaminophen; Translations: [ACETAMINOPHEN] Drug Allergy 09-25-19 17 Unknown, [facility] (2 sources) Acetaminophen / Propoxyphene; Translations: [Darvocet A500] Drug Allergy [facility] (2 sources) Penicillin; Translations: [penicillin] Drug Allergy [facility] (2 sources) Penicillins Drug Intolerance 04-21-20 Anaphylaxis, Unknown, Swelling [facility] Medications Current Medications Medication Drug Class(es) Dates Sig (Normalized) Sig (Original) acetaminophen 250 mg / aspirin 250 mg / caffeine 65 mg oral tablet (1 source) Platelet Aggregation Inhibitor, Nonsteroidal Anti-inflammatory Drug, Central Nervous System Stimulant, Methylxanthine Start: 12-19-2018 aspirin-acetamin ophen-caffeine (EXCEDRIN MIGRAINE) per tablet 1 tablet acetaminophen 325 mg / butalbital 50 mg / caffeine 40 mg oral capsule (3 sources) Barbiturate, Central Nervous System Stimulant, Methylxanthine Start: 12-21-2022 End: 01-04-2023 take 1 capsule by mouth every six hours for headache APAP/butalbital/ caffeine 325 mg-50 mg-40 mg oral capsule 1 cap(s), Oral, q6hr for headache for 14 day(s), 56 cap(s), Refill(s) 0, [facility]/pharmacy #[id number], 175, cm, 12/21/22 15:49:00 EDT, Height/Length Dosing, 155, kg, 12/21/22 15:49:00 EDT, Weight Dosing Start Date: 12/21/22 Stop Date: 01/04/23 Status: Ordered Acetaminophen / HYDROcodone (6 sources) Opioid Agonist Start: 04-21-2020 HYDROcodone-acet aminophen (NORCO) 5-325 MG per tablet 1 tablet take 1 tablet by bailey th every six hours as needed HYDROcodone-acetaminophen (NORCO) 5-325 mg per tablet Take 1 tablet by mouth every 6 hours as needed. 0 Active Comment on above: Take 1 tablet by bailey th every 6 hours as needed. acetaminophen 325 mg / oxyCODONE hydrochloride 2.5 mg oral tablet (20 sources) Opioid Agonist Start: 10-01-2022 Percocet 2.5/325 oral tablet 1 tab(s), Oral, q6hr for pain, 84 tab(s), Refill(s) 0, [facility]/pharmacy #[id number], 180, cm, 09/17/22 9:13:00 EDT, Height/Length Dosing, 167.8, kg, 09/30/22 15:11:00 EDT, Weight Dosing Start Date: 10/01/22 Status: Ordered Start: 03-26-2021 take 1 tablet by bailey th every four hours for pain Percocet 2.5/325 oral tablet 1 tab(s), Oral, q4hr for pain, 45 tab(s), Refill(s) 0, prn break through pain., [facility] [place], 180, cm, 02/17/21 12:48:00 EDT, Height/Length Dosing, 198.2, kg, 02/17/21 12:48:00 EDT, Weight Dosing Start Date: 03/26/21 Status: Ordered Start: 10-30-2020 take 1 tablet by bailey th every twelve hours Oxycodone-Acetaminophen (Percocet) 5-325 mg Tablet Active 1 TAB PO Q12H October 30, 2020 12:00am Start: 04-28-2020 End: 04-28-2020 take 1 tablet by mouth once oxyCODONE-acetaminophen (P ERCOCET) 5-325 MG per tablet Indications: Acute osteomyelitis of right pelvic region and thigh (HCC) Take 1 tablet by mouth once for 1 dose. 0 04/28/2020 04/28/2020 Start: 10-24-2018 End: 12-12-2019 take 1 tablet by mouth every four to six hours Oxycodone-Acetaminophen (Percocet) 5-325 mg Tablet Discontinued 1 TAB PO EVERY 4-6 HOURS 7 3 September 30, 2019 December 12, 2019 1:18am Start: 07-04-2018 End: 08-14-2018 take 1 tablet by mouth every four hours Oxycodone-Acetaminophen Discontinued 1 TAB PO Q4H 10 July 04, 2018 1:00am August 14, 2018 10:40pm Start: 03-10-2018 End: 05-20-2018 take 5 mg by mouth three times daily Oxycodone-Acetaminophen Discontinued 5 MG PO Three times daily March 10, 2018 12:00am May 20, 2018 3:04pm Al/Mg/simeth 200/200/20 per 5 mL Oral Susp 30 mL (2 sources) Start: 10-08-2020 Al/Mg/simeth 200/200/20 per 5 mL Oral Susp 30 mL 30 mL, Oral, q6hr Indigestion, Refill(s) 0 Start Date: 10/08/20 Status: Ordered [id number] 200 actuat albuterol 0.09 mg/actuat metered dose inhaler (20 sources) beta2-Adrenerg ic Agonist Start: 04-21-2022 take 2 puff(s) by inhalation four times daily as needed for wheezing albuterol HFA 90 mcg/act inhaler INHALE 2 PUFFS 4 TIMES A DAY NEEDED FOR WHEEZING 04/21/2022 Active Start: 03-19-2021 take 2 puff(s) by in halation every four hours as needed for wheezing albuterol sulfate HFA (VENTOLIN HFA) 108 (90 Base) MCG/ACT inhaler Inhale 2 puffs into the lungs every 4 hours as needed for Wheezing or Shortness of Breath 18 g 0 03/19/2021 Active Start: 11-15-2020 take 1 puff(s) by in halation every four hours Albuterol Sulfate (Ventolin Hfa) 90 mcg/actuation Hfa Aerosol Inhaler Active 2 PUFF INHALATION Q4H November 15, 2020 12:00am Start: 04-21-2020 2.5 mg, Nebuli zation, EVERY 6 HOURS PRN, Wheezing, Starting 04/21/20 at 1211 Start: 01-04-2019 albuterol (PRO VENTIL) (2.5 MG/3ML) 0.083% nebulizer solution Take 3 mLs by nebulization every 6 hours as needed for Wheezing 120 each 3 01/04/2019 Active Start: 10-03-2018 End: 01-28-2020 take 2.5 mg by inhalation every eight hours Albuterol Sulfate Discontinued 2.5 MG INHALATION Q8H 180 October 03, 2018 12:00am January 28, 2020 9:43am Start: 06-19-2018 End: 01-28-2020 take 1 puff(s) by inhalation every four hours Albuterol Sulfate Discontinued 2 PUFF INHALATION Q4H June 19, 2018 1:00am January 28, 2020 9:43am Start: 05-20-2018 End: 06-19-2018 take 2.5 mg by inhalation every four to six hours Albuterol Sulfate Discontinued 2.5 MG INHALATION EVERY 4-6 HOURS 75 May 20, 2018 1:00am June 19, 2018 1:35pm Start: 04-14-2018 End: 08-22-2018 take 1 puff(s) by inhalation twice daily Albuterol Sulfate Discontinued 2 PUFF INHALATION Twice daily April 14, 2018 1:00am August 22, 2018 4:31pm Start: 04-03-2018 albuterol sulf ate HFA (PROVENTIL HFA) 108 (90 Base) MCG/ACT inhaler Inhale 2 puffs into the lungs every 6 hours as needed for Wheezing or Shortness of Breath (Space out to every 6 hours as symptoms improve) Space out to every 6 hours as symptoms improve. 1 Inhaler 0 04/03/2018 Active Start: 04-03-2018 2 puff, Inhala tion, EVERY 6 HOURS PRN, Wheezing, Shortness of Breath, Space out to every 6 hours as symptoms improve, Starting 04/21/20 at 1211 Start: 03-16-2018 albuterol (PRO VENTIL) (2.5 MG/3ML) 0.083% nebulizer solution Take 3 mLs by nebulization every 6 hours as needed for Wheezing 120 each 3 03/16/2018 Active aluminum hydroxide 40 mg/ml / magnesium hydroxide 40 mg/ml / simethicone 4 mg/ml oral suspension (4 sources) Start: 10-08-2020 take 1 mL by mouth every six hours Alum-Mag Hydroxide-Simeth (Mylanta) 200-200-20 mg/5 mL Suspension Active 30 ML PO Q6H October 30, 2020 12:00am apixaban 5 mg oral tablet (20 sources) Factor Xa Inhibitor Start: 03-26-2021 take 1 tablet by mouth twice daily Eliquis 5 mg oral tablet 5 mg = 1 tab(s), Oral, BID, # 60 tab(s), Refills(s) 11, Pharmacy: [id number], 180, cm, 02/25/22 10:46:00 EDT, Height/Length Dosing, 187.5, kg, 02/25/22 10:46:00 EDT, Weight Dosing Start Date: 04/07/22 Status: Ordered Start: 07-04-2018 End: 07-20-2019 take 1 tablet by mouth twice daily Apixaban (Eliquis) 5 mg Tablet Discontinued 5 MG PO Twice daily 0 October 03, 2018 12:00am July 20, 2019 5:04pm benzonatate 100 mg oral capsule (1 source) Non-narcotic Antitussive Start: 03-19-2021 End: 03-29-2021 take 1-2 capsules by mouth three times daily as needed for cough benzonatate (TESSALON) 100 MG capsule Take 1-2 capsules by mouth 3 times daily as needed for Cough 60 capsule 0 03/19/2021 03/29/2021 Active brompheniramine maleate 0.4 mg/ml / dextromethorphan hydrobromide 2 mg/ml / pseudoephedrine hydrochloride 6 mg/ml oral solution (3 sources) alpha-Adrenergic Agonist, Uncompetitive B-wcyipd-J-asparta te Receptor Antagonist, Sigma-1 Agonist Start: 06-21-2022 take 10 mL by mouth four times daily as needed for cough and congestion brompheniramine- pseudoephedrine- DM 30-2-10 MG/5ML syrup TAKE 10 ML BY MOUTH 4 TIMES A DAY NEEDED FOR COUGH AND CONGESTION FOR 10 DAYS 06/21/2022 Active Start: 06-21-2022 End: 07-01-2022 take 10 mL by mouth four times daily for cough and congestion Bromfed DM oral syrup 10 mL, Oral, QID for cough and congestion for 10 day(s), 240 mL, Refill(s) 0, [facility]/pharm[id number], 180, cm, 06/21/22 7:29:00 EST, Height/Length Dosing, 168.3, kg, 06/21/22 7:29:00 EST, Weight Dosing Start Date: 06/21/22 Stop Date: 07/01/22 Status: Ordered bumetanide 1 mg oral tablet (7 sources) Loop Diuretic take 1 tablet by mouth in the morning bumetanide (Bumex) 1 MG tablet Take 1 mg by mouth in the morning. Active Comment on above: Take 1 mg by mouth o nce daily. cefTRIAXone (ROCEPHIN) 2 g IVPB in D5W 50ml minibag (2 sources) Start: 04-25-2020 cefTRIAXone (ROCEPHIN) 2 g IVPB in D5W 50ml minibag Start: 12-20-2018 cefTRIAXone (R OCEPHIN) 2 g IVPB in D5W 50ml minibag cefTRIAXone (ROCEPHIN) infusion (2 sources) Start: 04-28-2020 End: 05-26-2020 take 2000 mg intravenous route every twelve hours cefTRIAXone (ROCEPHIN) infusion Infuse 2,000 mg intravenously every 12 hours for 28 days Compound per protocol Stop after 05/26/20 and call D Aouasally before pulling line Do the bone scan before the AB is over 112 g 0 04/28/2020 05/26/2020 Active Start: 12-20-2018 End: 01-09-2019 take 1000 mg intravenous route every twenty-four hours cefTRIAXone (ROCEPHIN) infusion Infuse 1,000 mg intravenously every 24 hours for 20 days Compound per protocol 20 g 0 12/20/2018 01/09/2019 Active cephalexin 500 mg oral capsule (13 sources) Cephalosporin Antibacterial Start: 09-03-2022 End: 09-13-2022 take 1 capsule by mouth four times daily cephalexin 500 mg Cap 500 mg = 1 cap(s), Oral, QID, X 10 day(s), # 40 cap(s), Refills(s) 0, Pharmacy: [facility]/pharm[id number], 180, cm, 09/03/22 13:49:00 EDT, Height/Length Dosing, 164.9, kg, 09/03/22 13:49:00 EDT, Weight Dosing Start Date: 09/03/22 Stop Date: 09/13/22 Status: Ordered Start: 12-04-2019 End: 12-06-2019 take 1 capsule by mouth twice daily Cephalexin (Keflex) 500 mg capsule Discontinued 500 MG PO Twice daily 10 December 04, 2019 12:00am December 06, 2019 4:01pm Start: 10-26-2019 End: 11-29-2019 take 1 capsule by mouth four times daily Cephalexin (Keflex) 500 mg Capsule Discontinued 500 MG PO Four times daily 40 October 26, 2019 12:00am November 29, 2019 11:25pm Start: 10-24-2018 End: 09-25-2019 take 1 capsule by mouth four times daily Cephalexin (Keflex) 500 mg Capsule Discontinued 500 MG PO Four times daily 40 October 24, 2018 12:00am September 25, 2019 11:57pm Start: 08-31-2018 End: 09-23-2018 take 2 capsules by mouth twice daily Cephalexin (Keflex) 500 mg capsule Discontinued 1000 MG PO Twice daily 40 August 31, 2018 12:00am September 23, 2018 10:45pm cholecalciferol 1000 unt oral tablet (7 sources) Vitamin D Start: 04-21-2020 take 6000 [IU] by mouth once daily 6,000 Units, Oral, DAILY, First dose on 12/14/20 at 1230 Therapeutic Dose. Start: 01-28-2020 End: 10-30-2020 take 1000 [IU] by mouth at bedtime Cholecalciferol (Vitamin D3) Discontinued 1000 UNIT PO Bedtime January 28, 2020 12:00am October 30, 2020 12:47pm Start: 09-26-2019 End: 01-28-2020 take 1 tablet by mouth at bedtime Cholecalciferol (Vitamin D3) (Vitamin D3) 50 mcg (2,000 unit) tablet Discontinued 50 MCG PO Bedtime September 26, 2019 12:00am January 28, 2020 9:43am clindamycin 150 mg oral capsule (2 sources) Lincosamide Antibacterial Start: 11-14-2023 End: 11-21-2023 take 3 capsules by mouth three times daily clindamycin 150 mg Cap 450 mg = 3 cap(s), Oral, TID, X 7 day(s), # 63 cap(s), Refills(s) 0, Pharmacy: [facility]/pharm[id number], 175, cm, 11/14/23 0:31:00 EDT, Height/Length Dosing, 116.9, kg, 11/14/23 0:31:00 EDT, Weight Dosing Start Date: 11/14/23 Stop Date: 11/21/23 Status: Ordered Start: 07-22-2022 End: 07-29-2022 take 3 capsules by mouth every eight hours clindamycin 150 mg Cap 450 mg = 3 cap(s), Oral, q8hr, X 7 day(s), # 63 cap(s), Refills(s) 0, Pharmacy: [facility]/pharmacy #[id number], 180.3, cm, 07/21/22 20:15:00 EDT, Height/Length Dosing, 170.8, kg, 07/21/22 20:15:00 EDT, Weight Dosing Start Date: 07/22/22 Stop Date: 07/29/22 Status: Ordered docusate sodium 100 mg oral capsule (14 sources) Start: 01-04-2019 take 1 capsule by mouth once daily Docusate Sodium (Colace) 100 mg Capsule Active 100 MG PO Daily October 30, 2020 12:00am Start: 08-16-2018 End: 01-28-2020 take 1 capsule by mouth twice daily Docusate Sodium (Colace) 100 mg Capsule Discontinued 100 MG PO Twice daily August 16, 2018 12:00am January 28, 2020 9:43am Start: 03-16-2018 take 100 mg by mouth once daily as needed for constipation 100 mg, Oral, DAILY PRN, Constipation, Starting Tu12/19/18 at 1436 Do not crush or break. doxepin hydrochloride 25 mg oral capsule (1 source) Tricyclic Antidepressant Start: 04-25-2023 take 1 capsule by mouth once daily at bedtime doxepin 25 mg Cap See Instructions, One PO qhs; if ineffective may increase to 2 PO qhs, # 60 cap(s), Refills(s) 1, Insomnia, Pharmacy: [id number], 175, cm, 04/07/23 13:59:00 EST, Height/Length Dosing, 139.4, kg, 04/07/23 13:59:00 EST, Weight Dosing Start Date: 04/25/23 Status: Ordered doxycycline hyclate 100 mg oral tablet (16 sources) Tetracycline-class Drug Start: 12-21-2022 End: 12-28-2022 take 1 tablet by mouth every twelve hours doxycycline hyclate 100 mg Tab 100 mg = 1 tab(s), Oral, q12hr, X 7 day(s), # 14 tab(s), Refills(s) 0, Pharmacy: [id number], 175, cm, 12/21/22 15:49:00 EDT, Height/Length Dosing, 155, kg, 12/21/22 15:49:00 EDT, Weight Dosing Start Date: 12/21/22 Stop Date: 12/28/22 Status: Ordered Start: 04-21-2022 End: 04-28-2022 take 1 tablet by mouth every twelve hours at mealtime doxycycline hyclate 100 mg Tab 100 mg = 1 tab(s), Oral, q12hr, with fluids, may take with food to minimize abdominal discomfort, X 7 day(s), # 14 tab(s), Refills(s) 0, Pharmacy: [id number], 180, cm, 04/21/22 14:19:00 EST, Height/Length Dosing, 177.2, kg, 04/21/22 14:19:0... Start Date: 04/21/22 Stop Date: 04/28/22 Status: Ordered Start: 10-30-2020 End: 11-15-2020 take 100 mg by mouth twice daily Doxycycline Hyclate Discontinued 100 MG PO Twice daily October 30, 2020 12:00am November 15, 2020 6:18am END 11/04/20 Start: 07-20-2019 End: 09-25-2019 take 100 mg by mouth twice daily Doxycycline Hyclate Discontinued 100 MG PO Twice daily 25 02July 20, 2019 12:00am September 25, 2019 11:57pm Start: 08-14-2018 End: 08-17-2018 take 1 tablet by mouth twice daily Doxycycline Hyclate Discontinued 1 TAB PO Twice daily August 15, 2018 12:00am August 17, 2018 5:36pm 0.8 ml enoxaparin sodium 100 mg/ml prefilled syringe (18 sources) Low Molecular Weight Heparin Start: 10-30-2020 Enoxaparin (Lovenox) 80 mg/0.8 mL Syringe Active 80 MG SUBCUT Q12H October 30, 2020 12:00am Start: 08-19-2020 inject 80 mg by subc utaneous injection twice daily Lovenox 80 mg/0.8 mL SC Minoo 80 mg, SubCutaneous, BID, # 60 pen needle(s), Refills(s) 2, Pharmacy: [id number], 180, cm, 10/12/22 8:27:00 EDT, Height/Length Dosing, 170.4, kg, 10/12/22 8:27:00 EDT, Weight Dosing Start Date: 10/12/22 Status: Ordered Start: 08-19-2020 inject 80 mg by subc utaneous injection twice daily Lovenox 80 mg/0.8 mL SC Minoo 80 mg, SubCutaneous, BID, # 60 pen needle(s), Refills(s) 2, Pharmacy: [id number], 180.3, cm, 08/19/20 10:26:00 EDT, Height/Length Dosing, 194.6, kg, 08/19/20 10:26:00 EDT, Weight Dosing Start Date: 08/19/20 Status: Ordered Start: 12-19-2018 enoxaparin (LO VENOX) injection 40 mg famotidine 20 mg oral tablet (20 sources) Histamine-2 Receptor Antagonist Start: 01-28-2020 End: 10-30-2020 take 20 mg by mouth once daily Famotidine Discontinued 20 MG PO Daily January 28, 2020 12:00am October 30, 2020 12:47pm Start: 12-19-2018 take 1 tablet by bailey th twice daily Pepcid 20 mg Tab 20 mg = 1 tab(s), Oral, BID, avoid eating and drinking for 10 minutes after each dose, # 60 tab(s), Refills(s) 11, Pharmacy: [id number], 180, cm, 10/12/22 8:27:00 EDT, Height/Length Dosing, 170.4, kg, 10/12/22 8:27:00 EDT, Weight Dosing Start Date: 10/12/22 Status: Ordered 72 hr fentaNYL 0.012 mg/hr transdermal system (9 sources) Opioid Agonist Start: 12-07-2022 fentaNYL 12 mcg/hr Transderm ER Film 1 patch(es), Topical, q72hr, 10 film, Refill(s) 0, [id number], 180, cm, 12/07/22 14:18:00 EDT, Height/Length Dosing, 156, kg, 12/07/22 14:18:00 EDT, Weight Dosing Start Date: 12/07/22 Status: Ordered fluconazole 100 mg oral tablet (3 sources) Azole Antifungal Start: 09-03-2022 End: 09-10-2022 take 1 tablet by mouth once daily fluconazole (Diflucan) 100 MG tablet TAKE 1 TABLET BY MOUTH EVERY DAY FOR 7 DAYS 09/03/2022 Active folic acid 1 mg oral tablet (1 source) Start: 04-21-2023 take 1 tablet by mouth once daily folic acid 1 mg Tab 1 mg = 1 tab(s), Oral, Daily, # 30 tab(s), Refills(s) 11, Pharmacy: [facility]/pharmacy #[id number], 175, cm, 04/07/23 13:59:00 EST, Height/Length Dosing, 139.4, kg, 04/07/23 13:59:00 EST, Weight Dosing Start Date: 04/21/23 Status: Ordered glucagon (rdna) 1 mg injection (1 source) Antihypoglycemic Agent Start: 04-25-2020 glucagon (rDNA) injection 1 mg glucose 0.417 mg/mg oral gel (3 sources) Start: 04-25-2020 glucose (GLUTOSE) 40 % oral gel 15 g Start: 04-25-2020 dextrose 50 % IV solution Start: 04-25-2020 dextrose 5 % s olution 12 hr guaiFENesin 600 mg extended release oral tablet (4 sources) Start: 03-19-2021 End: 04-03-2021 take 1 tablet by mouth twice daily guaiFENesin (MUCINEX) 600 MG extended release tablet Take 1 tablet by mouth 2 times daily for 15 days 30 tablet 0 03/19/2021 04/03/2021 Active Start: 10-03-2018 End: 10-24-2018 take 2 tablets by mouth twice daily, then take 1 tablet by mouth every twelve hours Guaifenesin (Mucinex) 600 mg Tablet Extended Release 12hr Discontinued 1200 MG PO Twice daily 12 October 03, 2018 12:00am October 24, 2018 12:34pm 1 ml heparin sodium, porcine 66731 unt/ml injection (2 sources) Unfractionated Heparin, Anti-coagulant Start: 04-22-2020 heparin (porcine) injection 10,000 Units Start: 04-21-2020 End: 04-21-2020 inject 1 dose by subcutaneous injection three times daily 5,000 Units, Subcutaneous, EVERY 8 HOURS SCHEDULED (3 times per day), First dose on Tue04/21/20 at 1400 hydrOXYzine hydrochloride 25 mg oral tablet (20 sources) Antihistamine Start: 10-12-2022 take 1 tablet by mouth every six hours as needed for anxiety hydrOXYzine hydrochloride 25 mg Tab 25 mg = 1 tab(s), Oral, q6hr, PRN as needed for anxiety, # 30 tab(s), Refills(s) 1, Pharmacy: [facility]/pharmacy #[id number], 180, cm, 10/12/22 8:27:00 EDT, Height/Length Dosing, 170.4, kg, 10/12/22 8:27:00 EDT, Weight Dosing Start Date: 10/12/22 Status: Ordered Start: 07-26-2022 hydrOXYzine HC l (Atarax) 25 MG tablet TAKE 1 TO 2 TABLETS BY MOUTH EVERY DAY AT BEDTIME NEEDED 30 07/26/2022 Active Start: 06-24-2021 Vistaril Refil ls(s) 0 Start Date: 06/24/21 Status: Ordered Start: 04-23-2021 End: 05-23-2021 take 2 capsules by mouth twice daily as needed for anxiety hydrOXYzine (VISTARIL) 25 MG capsule Take 2 capsules by mouth 2 times daily as needed for Anxiety 60 capsule 0 04/23/2021 05/23/2021 Active Start: 12-09-2020 take 25 mg by mouth every eight hours Hydroxyzine Hcl Active 25 MG PO Q8H December 09, 2020 12:00am hyoscyamine sulfate 0.125 mg oral tablet (14 sources) Start: 12-16-2022 take 1 tablet by mouth four times daily as needed for muscle spasms hyoscyamine 0.125 mg oral Tab 0.125 mg = 1 tab(s), Oral, QID, PRN for spasm, # 40 tab(s), Refills(s) 0 Start Date: 12/16/22 Status: Ordered insulin lispro 100 unt/ml injectable solution (2 sources) Insulin Analog Start: 04-21-2020 insulin lispro (HUMALOG) injection vial 0-6 Units insulin lispro 100 units/mL injectable solution (3 sources) Start: 10-08-2020 insulin lispro 100 units/mL injectable solution 0-10 Units, SubCutaneous, QIDACHS, Sliding scale insulin 4 times daily AC, Refills(s) 0 Start Date: 10/08/20 Status: Ordered levothyroxine sodium 0.025 mg oral tablet (20 sources) l-Thyroxine Start: 08-27-2022 take 1 tablet by mouth once daily levothyroxine 25 mcg (0.025 mg) Tab 25 mcg = 1 tab(s), Oral, Daily, Take on an empty stomach from other meds/vitamins/food by 60 minutes., # 30 tab(s), Refills(s) 5, Pharmacy: [facility]/pharmacy #[id number], 180, cm, 10/12/22 8:27:00 EDT, Height/Length Dosing, 170.4, kg, 10/12/22 8:27:00 EDT, Weight Dosing Start Date: 10/12/22 Status: Ordered Start: 06-25-2022 take 1 tablet by bailey th once daily levothyroxine 25 mcg (0.025 mg) Tab 25 mcg = 1 tab(s), Oral, Daily, Take on an empty stomach from other meds/vitamins/food by 60 minutes., # 30 tab(s), Refills(s) 1, [id number] 180, cm, 06/21/22 7:29:00 EST, Height/Length Dosing, 168.3, kg, 06/21/22 7:29:00... Start Date: 06/25/22 Status: Ordered Start: 02-25-2022 take 1 tablet by bailey once daily levothyroxine 25 mcg (0.025 mg) Tab 25 mcg = 1 tab(s), Oral, Daily, Take on an empty stomach from other meds/vitamins/food by 60 minutes., # 30 tab(s), Refills(s) 3, [id number] 180, cm, 02/25/22 10:46:00 EDT, Height/Length Dosing, 187.5, kg, 02/25/22 10:46:0... Start Date: 02/25/22 Status: Ordered levothyroxine (S ynthroid, Levoxyl) 25 MCG tablet TAKE 1 TABLET ON AN EMPTY STOMACH FROM OTHER MEDS/VITAMINS/FOOD BY 60 MINUTES ONCE A DAY Active lidocaine 0.05 mg/mg medicated patch (20 sources) Antiarrhythmic, Amide Local Anesthetic Start: 11-08-2022 lidocaine Top 5% toribio m Patch 1 patch(es), Topical, Daily, 30 film, Refill(s) 2, change patch every 24h, [facility]/pharmacy #[id number], 180, cm, 10/12/22 8:27:00 EDT, Height/Length Dosing, 170.4, kg, 10/12/22 8:27:00 EDT, Weight Dosing Start Date: 11/08/22 Status: Ordered Start: 04-21-2020 End: 04-21-2020 lidocaine 2 % injection Start: 12-20-2018 End: 12-20-2018 lidocaine 2 % injection 5 mL Magnesium Hydroxide (4 sources) Start: 10-30-2020 take 1 mL by mouth once daily at bedtime Magnesium Hydroxide (Milk Of Magnesia) 400 mg/5 mL Suspension Active 30 ML PO Daily at bedtime October 30, 2020 12:00am Start: 12-19-2018 magnesium hydr oxide (MILK OF MAGNESIA) 400 MG/5ML suspension 30 mL megestrol acetate 20 mg oral tablet (9 sources) Progestin Start: 04-21-2020 take 40 mg by mouth once daily 40 mg, Oral, DAILY, First dose on 04/21/20 at 1230 Hazardous Medication -- Refer to facility policy for handling and disposal. Start: 12-25-2018 megestrol (REYNA REX) 40 mg tablet Indications: Menorrhagia with irregular cycle , Iron deficiency anemia due to chronic blood loss Take one(1) tablet daily and Increase to twice daily if bleeding worsening 30 tablet 0 12/25/2018 Active Comment on above: Take one(1) tablet d aily and Increase to twice daily if bleeding worsening melatonin 3 mg oral tablet (3 sources) Start: 1 take 6 mg by mouth at bedtime Melatonin Active 6 MG PO Bedtime October 30, 2020 12:00am 24 hr metFORMIN hydrochloride 500 mg extended release oral tablet (20 sources) Biguanide Start: 2 take 1 tablet by mouth every twenty-four hours at mealtime metFORMIN XR (Glucophage-XR) 500 MG 24 hr tablet Take 500 mg by mouth in the evening. Take with meals. 02/25/2022 Active Start: 02-25-2022 take 1 tablet by bailey th once daily at dinner metformin 500 mg ER Tab 500 mg = 1 tab(s), Oral, Daily, with evening meal, # 30 tab(s), Refills(s) 3, Pharmacy: [facility]/pharmacy #[id number], 180, cm, 10/12/22 8:27:00 EDT, Height/Length Dosing, 170.4, kg, 10/12/22 8:27:00 EDT, Weight Dosing Start Date: 10/12/22 Status: Ordered Start: 01-16-2020 End: 10-30-2020 take 850 mg by mouth twice daily at mealtime Metformin Discontinued 850 MG PO Twice daily with meals 60 January 28, 2020 12:00am October 30, 2020 12:47pm Start: 03-10-2018 End: 07-19-2018 take 1000 mg by mouth once daily Metformin Discontinued 1000 MG PO Daily March 10, 2018 12:00am July 19, 2018 2:51pm take 1 tablet by bailey th twice daily at mealtime metFORMIN ER (FORTAMET) 1,000 mg 24 hr tablet Take 1,000 mg by mouth twice daily with meals. 0 Active Comment on above: Take 1,000 mg by bailey th twice daily with meals. metoclopramide 10 mg oral tablet (9 sources) Dopamine-2 Receptor Antagonist Start: 03-23-20 take 1 tablet by mouth three times daily metoclopramide 10 mg Tab 10 mg = 1 tab(s), Oral, TID, # 90 tab(s), Refills(s) 1, Pharmacy: [facility]/pharmacy #[id number], 175, cm, 03/16/23 10:41:00 EST, Height/Length Dosing, 152, kg, 01/04/23 14:31:00 EDT, Weight Dosing Start Date: 03/23/23 Status: Ordered take 1 tablet by bailey th four times daily metoclopramide HCl (REGLAN) 10 mg tablet Take 10 mg by mouth four times daily. 0 Active Comment on above: Take 10 mg by mouth four times daily. miconazole nitrate 0.02 mg/mg topical powder (6 sources) Azole Antifungal Start: 04-26-2020 miconazole (MICOTIN) 2 % powder Start: 12-21-2018 miconazole (PR COTIN) 2 % powder Apply topically 2 times daily. 45 g 1 12/21/2018 Active Start: 12-19-2018 miconazole (PR COTIN) 2 % powder mirtazapine 15 mg oral tablet (3 sources) Start: 10-30-2020 take 15 mg by mouth once daily at bedtime Mirtazapine Active 15 MG PO Daily at bedtime October 30, 2020 12:00am morphine sulfate 15 mg extended release oral tablet (18 sources) Opioid Agonist Start: 10-12-2022 take 1 tablet by mouth every twelve hours morphine 15 mg/8 hr oral tablet, extended release 15 mg = 1 tab(s), Oral, q12hr, # 60 tab(s), Refills(s) 0, Pharmacy: [facility]/pharmacy #[id number], 180, cm, 10/12/22 8:27:00 EDT, Height/Length Dosing, 170.4, kg, 10/12/22 8:27:00 EDT, Weight Dosing Start Date: 10/12/22 Status: Ordered Start: 04-23-2021 End: 04-23-2021 morphine sulfate (PF) inject ion 4 mg Start: 03-19-2021 End: 03-19-2021 morphine (PF) injection 2 mg Start: 02-02-2021 take 1 tablet by bailey th twice daily morphine 15 mg/8 hr oral tablet, extended release 15 mg = 1 tab(s), Oral, BID, # 10 tab(s), Refills(s) 0 Start Date: 02/02/21 Status: Ordered Start: 02-02-2021 take 1 tablet by bailey th twice daily morphine 15 mg/8 hr oral tablet, extended release 15 mg = 1 tab(s), Oral, BID, # 10 tab(s), Refills(s) 0 Start Date: 02/02/21 Status: Ordered Start: 10-30-2020 take 15 mg by mouth every eight hours Morphine Active 15 MG PO Q8H October 30, 2020 12:00am mupirocin 0.02 mg/mg topical ointment (20 sources) RNA Synthetase Inhibitor Antibacterial Start: 09-17-2022 mupirocin (Bactroban) 2 % ointment APPLY TO AFFECTED AREA 3 TIMES A DAY 09/17/2022 Active naproxen 500 mg delayed release oral tablet (7 sources) Nonsteroidal Anti-inflammatory Drug Start: 07-22-2022 take 1 tablet by mouth in the morning EC-Naproxen 500 MG EC tablet Take 500 mg by mouth in the morning and 500 mg before bedtime. 07/22/2022 Active OLANZapine 5 mg disintegrating oral tablet (3 sources) Atypical Antipsychotic Start: 01-04-2023 take 1 tablet by mouth once daily at bedtime olanzapine 5 mg oral tablet, disintegrating 5 mg = 1 tab(s), Oral, Once a day (at bedtime), do not swallow whole, allow tablet to dissolve on tongue, # 30 tab(s), Refills(s) 1, Pharmacy: [facility]/pharmacy #[id number], 175, cm, 01/04/23 14:31:00 EDT, Height/Length Dosing, 152, kg, 01/04/23 14:31:00 EDT, We... Start Date: 01/04/23 Status: Ordered ondansetron 4 mg disintegrating oral tablet (20 sources) Serotonin-3 Receptor Antagonist Start: 01-04-2023 take 1 tablet by mouth every six hours as needed for nausea ondansetron 4 mg Dis Tab See Instructions, PRN Nausea/Vomiting, 1 tab(s) Oral q6hr allow tablet to dissolve on tongue, # 60 tab(s), Refills(s) 2, Pharmacy: [facility]/pharmacy #[id number], 175, cm, 01/04/23 14:31:00 EDT, Height/Length Dosing, 152, kg, 01/04/23 14:31:00 EDT, Weight Dosing Start Date: 01/04/23 Status: Ordered Start: 12-16-2022 take 1 tablet by bailey th every eight hours as needed for nausea ondansetron 4 mg Tab 4 mg = 1 tab(s), Oral, q8hr, PRN Nausea/Vomiting, # 10 tab(s), Refills(s) 0 Start Date: 12/16/22 Status: Ordered Start: 04-23-2021 End: 04-23-2021 ondansetron (ZOFRAN) 4 MG/2M L injection Start: 03-19-2021 End: 03-24-2021 ondansetron (ZOFRAN-ODT) 4 M G disintegrating tablet Place 1 tablet under the tongue 3 times daily as needed for Nausea or Vomiting 15 tablet 0 03/19/2021 03/24/2021 Active Start: 03-19-2021 End: 03-19-2021 ondansetron (ZOFRAN) injecti on 4 mg Start: 10-30-2020 take 1 tablet by bailey th every eight hours Ondansetron Hcl (Zofran) 8 mg Tablet Active 8 MG PO Q8H October 30, 2020 12:00am Start: 01-04-2019 take 1 tablet by bailey th every eight hours as needed for nausea ondansetron (ZOFRAN ODT) 4 MG disintegrating tablet Take 1 tablet by mouth every 8 hours as needed for Nausea 10 tablet 3 01/04/2019 Active Start: 12-19-2018 ondansetron (Z OFRAN) injection 4 mg Start: 03-16-2018 take 1 tablet by bailey th every eight hours as needed for nausea ondansetron (ZOFRAN ODT) 4 MG disintegrating tablet Take 1 tablet by mouth every 8 hours as needed for Nausea 10 tablet 0 03/16/2018 Active OXcarbazepine 300 mg oral tablet (9 sources) Anti-epileptic Agent Start: 12-19-2018 take 300 mg by mouth once daily in the evening 300 mg, Oral, EVERY EVENING, First dose on Tue04/21/20 at 1800 Start: 07-05-2018 End: 08-14-2018 take 1 tablet by mouth once daily at bedtime Oxcarbazepine (Trileptal) 300 mg Tablet Discontinued 300 MG PO Daily at bedtime July 05, 2018 1:00am August 14, 2018 10:40pm oxyCODONE hydrochloride 5 mg oral tablet (9 sources) Opioid Agonist Start: 10-15-2022 take 1 tablet by mouth every four hours as needed for pain oxyCODONE 5 mg Tab 5 mg = 1 tab(s), Oral, q4hr, PRN as needed for pain, # 30 tab(s), Refills(s) 0, Pharmacy: [facility]/pharmacy #[id number], 180, cm, 10/12/22 8:27:00 EDT, Height/Length Dosing, 170.4, kg, 10/12/22 8:27:00 EDT, Weight Dosing Start Date: 10/15/22 Status: Ordered Start: 10-12-2022 take 1 tablet by bailey th every six hours as needed for pain oxyCODONE 5 mg Tab 5 mg = 1 tab(s), Oral, q6hr, PRN as needed for pain, # 30 tab(s), Refills(s) 0, Pharmacy: [facility]/pharmacy #[id number], 180, cm, 10/12/22 8:27:00 EDT, Height/Length Dosing, 170.4, kg, 10/12/22 8:27:00 EDT, Weight Dosing Start Date: 10/12/22 Status: Ordered pantoprazole (20 sources) Proton Pump Inhibitor Start: 12-21-2022 Protonix IV See Instructions, BID via IV, Refills(s) 0 Start Date: 12/21/22 Status: Ordered Start: 03-16-2018 take 1 tablet by bailey th once daily before breakfast pantoprazole (PROTONIX) 40 MG tablet Indications: Gastroesophageal reflux disease, esophagitis presence not specified Take 1 tablet by mouth every morning (before breakfast) 30 tablet 5 01/04/2019 Active Comment on above: Take 40 mg by mouth once daily. polyethylene glycol 3350 86802 mg powder for oral solution (17 sources) Osmotic Laxative Start: 12-17-19 take 17 g by mouth once daily as needed for constipation polyethylene glycol 3350 17 gram packet 17 gm, Oral, Daily, PRN Constipation, Refills(s) 0 Start Date: 12/16/22 Status: Ordered Start: 10-03-2018 End: 09-26-2019 Polyethylene Glycol 3350 (Mi ralax) 17 gram Powder In Packet Discontinued 17 GM PO Daily October 03, 2018 12:00am September 26, 2019 1:18am predniSONE 20 mg oral tablet (17 sources) Start: 03-01-2022 predniSONE 20 mg Tab See Instructions, Take 3 tablets for 3 days, then 2 tablets for 3 days, then 1 tablet for 3 days. Take in the morning with food., # 18 tab(s), Refills(s) 0, Pharmacy: [facility]/pharmacy #[id number], 180, cm, 02/25/22 10:46:00 EDT, Height/Length Dosing, 187.5, kg,... Start Date: 03/01/22 Status: Ordered Start: 11-30-2019 End: 12-12-2019 take 60 mg by mouth once daily Prednisone Discontinued 60 MG PO Daily 05 10November 30, 2019 12:00am December 12, 2019 1:18am Start: 08-22-2018 End: 08-31-2018 take 40 mg by mouth once daily Prednisone Discontinued 40 MG PO Daily 01 05August 22, 2018 12:00am August 31, 2018 8:47pm Start: 05-20-2018 End: 06-19-2018 take 40 mg by mouth once daily Prednisone Discontinued 40 MG PO Daily May 20, 2018 1:00am June 19, 2018 6:50pm prochlorperazine 10 mg oral tablet (20 sources) Phenothiazine Start: 03-16-2023 take 1 tablet by mouth four times daily prochlorperazine 10 mg Tab 10 mg = 1 tab(s), Oral, QID, # 120 tab(s), Refills(s) 1, Pharmacy: [facility]/pharmacy #[id number], 175, cm, 03/16/23 10:41:00 EST, Height/Length Dosing, 152, kg, 01/04/23 14:31:00 EDT, Weight Dosing Start Date: 03/16/23 Status: Ordered Start: 11-08-2022 take 1 tablet by bailey th every six hours as needed for nausea prochlorperazine 10 mg Tab 10 mg = 1 tab(s), Oral, q6hr, PRN Nausea, # 30 tab(s), Refills(s) 1, [id number] 180, cm, 10/12/22 8:27:00 EDT, Height/Length Dosing, 170.4, kg, 10/12/22 8:27:00 EDT, Weight Dosing Start Date: 11/08/22 Status: Ordered Start: 10-30-2020 take 10 mg by mouth four times daily Prochlorperazine Maleate Active 10 MG PO Four times daily October 30, 2020 12:00am Start: 08-05-2020 take 1 tablet by bailey th every six hours Compazine 10 mg oral tablet 10 mg = 1 tab(s), Oral, q6hr, # 60 tab(s), Refills(s) 3, [id number], 180.3, cm, 08/05/20 8:59:00 EDT, Height/Length Dosing, 194.8, kg, 08/05/20 8:59:00 EDT, Weight Dosing Start Date: 08/05/20 Status: Ordered promethazine hydrochloride 12.5 mg oral tablet (14 sources) Phenothiazine Start: 12-16-2022 take 1 tablet by mouth every eight hours as needed for nausea promethazine 12.5 mg oral tablet 12.5 mg = 1 tab(s), Oral, q8hr, PRN as needed for nausea/vomiting, # 60 tab(s), Refills(s) 0 Start Date: 12/16/22 Status: Ordered ramelteon 8 mg oral tablet (8 sources) Melatonin Receptor Agonist Start: 05-31-2023 take 1 tablet by mouth once daily at bedtime ramelteon 8 mg oral tablet 8 mg = 1 tab(s), Oral, Once a day (at bedtime), # 30 tab(s), Refills(s) 1, [id number] 175, cm, 05/31/23 10:55:00 EST, Height/Length Dosing, 131, kg, 05/31/23 10:55:00 EST, Weight Dosing Start Date: 05/31/23 Status: Ordered sennosides, senior living 8.6 mg oral tablet (16 sources) Start: 10-13-2022 take 1 tablet by mouth once daily as needed for constipation senna 8.6 mg Tab 8.6 mg = 1 tab(s), Oral, Daily, PRN as needed for constipation, # 60 tab(s), Refills(s) 1, Pharmacy: [facility]/pharmacy #[id number], 180, cm, 10/12/22 8:27:00 EDT, Height/Length Dosing, 170.4, kg, 10/12/22 8:27:00 EDT, Weight Dosing Start Date: 10/13/22 Status: Ordered sertraline 50 mg oral tablet (11 sources) Serotonin Reuptake Inhibitor Start: 09-10-2022 take 1 tablet by mouth once daily sertraline (Zoloft) 50 MG tablet TAKE 1 TABLET BY MOUTH EVERY DAY FOR 30 DAYS 09/10/2022 Active Start: 01-04-2019 take 1 tablet by bailey th once daily sertraline (ZOLOFT) 50 MG tablet Indications: Depression with anxiety Take 1 tablet by mouth daily 30 tablet 5 01/04/2019 Active Start: 08-10-2018 End: 08-14-2018 take 1 tablet by mouth once daily Sertraline Discontinued 1 TAB PO Daily August 14, 2018 12:00am August 14, 2018 10:41pm 5 ml sodium chloride 9 mg/ml injection (15 sources) Start: 04-23-2021 sodium chlorid e flush 0.9 % injection 10 mL Start: 04-23-2021 End: 04-23-2021 0.9 % sodium chloride bolus Start: 03-19-2021 End: 03-19-2021 0.9 % sodium chloride bolus Start: 04-21-2020 End: 04-25-2020 10 mL, Intravenous, EVERY 12 HOURS SCHEDULED (2 times per day), First dose on Tue04/21/20 at 2100 Start: 04-21-2020 End: 04-25-2020 sodium chloride flush 0.9 % injection 10 mL Start: 04-21-2020 End: 04-28-2020 take 1 mL intravenous route every hour Intravenous, at 50 mL/hr, CONTINUOUS, Starting Tue04/21/20 at 1230 Maintenance IV fluid order, if a bolus IV fluid order is present, begin this order after the bolus is complete. Start: 12-19-2018 sodium chlorid e flush 0.9 % injection 10 mL Start: 12-19-2018 End: 12-21-2018 0.9 % sodium chloride infusi on Start: 12-18-2018 End: 12-19-2018 0.9 % sodium chloride bolus TPN Electrolytes intravenous solution (8 sources) Start: 12-16-2022 TPN Electrolyt es intravenous solution IV Piggyback, Daily, Refill(s) 0 Start Date: 12/16/22 Status: Ordered traZODone hydrochloride 50 mg oral tablet (1 source) Serotonin Reuptake Inhibitor Start: 04-20-2023 take 0.5 tablet by mouth once daily at bedtime, then take 1 tablet by mouth once daily at bedtime traZODONE 50 mg Tab See Instructions, 1/2 tab PO qhs - if not effective may increase to 1 PO qhs, # 30 tab(s), Refills(s) 1, Pharmacy: [facility]/pharmacy #[id number], 175, cm, 04/07/23 13:59:00 EST, Height/Length Dosing, 139.4, kg, 04/07/23 13:59:00 EST, Weight Dosing Start Date: 04/20/23 Status: Ordered Completed/Discontinued Medications Medication Drug Class(es) Dates Sig (Normalized) Sig (Original) acetaminophen 500 mg oral tablet (12 sources) Start: 04-23-2021 End: 04-23-2021 acetaminophen (TYLENOL) tablet 1,000 mg Start: 12-09-2020 take 650 mg by mouth every six hours Acetaminophen Active 650 MG PO Q6H December 09, 2020 2:13am Start: 10-08-2020 take 2 tablets by mo uth every six hours as needed for pain acetaminophen 325 mg Tab 650 mg = 2 tab(s), Oral, q6hr, PRN Pain, Refills(s) 0 Start Date: 10/08/20 Status: Ordered Start: 01-28-2020 End: 12-09-2020 take 500 mg by mouth every six hours Acetaminophen Discontinued 500 MG PO Q6H 0 January 28, 2020 12:00am December 09, 2020 2:14am Start: 12-19-2018 acetaminophen (TYLENOL) tablet 650 mg Start: 12-18-2018 End: 12-18-2018 acetaminophen (TYLENOL) tabl et 1,000 mg albuterol HFA 90 mcg/inh MDI (1 source) Start: 04-21-2022 End: 05-21-2022 take 1 dose by inhalation four times daily albuterol HFA 90 mcg/inh MDI 2 puff(s), Inhalation, QID for wheezing for 30 day(s), 1 EA, Refill(s) 0, May substitute for ventolin/proair if needed., [facility] #[id number], 180, cm, 04/21/22 14:19:00 EST, Height/Length Dosing, 177.2, kg, 04/21/22 14:19:00 EST, Weight Dosing Start Date: 04/21/22 Stop Date: 05/21/22 Status: Ordered ALPRAZolam 1 mg oral tablet (20 sources) Benzodiazepine Start: 09-26-2019 End: 10-30-2020 take 1 mg by mouth three times daily Alprazolam Discontinued 1 MG PO Three times daily 07 03January 28, 2020 12:00am October 30, 2020 12:47pm Start: 12-19-2018 End: 04-28-2020 take 1 mg by mouth twice daily as needed for anxiety 1 mg, Oral, 2 TIMES DAILY PRN, Anxiety, Sleep, Starting Tue12/19/18 at 1436 Start: 03-10-2018 End: 08-14-2018 take 1 mg by mouth three times daily Alprazolam Discontinued 1 MG PO Three times daily March 10, 2018 12:00am August 14, 2018 10:41pm take 1 tablet by bailey th every twenty-four hours as needed ALPRAZolam (Xanax) 1 MG tablet Take 1 mg by mouth Daily as needed. Active Comment on above: Take 1 mg by mouth a t bedtime as needed. amitriptyline hydrochloride 25 mg oral tablet (6 sources) Tricyclic Antidepressant Start: 01-28-20 End: 10-31-19 take 25 mg by mouth at bedtime Amitriptyline Discontinued 25 MG PO Bedtime January 28, 2020 12:00am October 30, 2020 12:47pm Start: 09-26-2019 End: 01-28-2020 take 1 tablet by mouth at bedtime Amitriptyline Discontinued 1 TAB PO Bedtime September 26, 2019 12:00am January 28, 2020 9:43am amLODIPine 5 mg oral tablet (12 sources) Dihydropyridine Calcium Channel [place] Start: 08-14-2018 End: 04-29-2020 take 5 mg by mouth once daily Amlodipine Discontinued 5 MG PO Daily 0 October 03, 2018 12:00am September 30, 2019 8:50am Start: 03-12-2018 End: 06-19-2018 take 1 tablet by mouth once daily Amlodipine (Norvasc) 5 mg tablet Discontinued 5 MG PO Daily March 12, 2018 12:00am June 19, 2018 6:50pm amoxicillin 500 mg / clavulanate 125 mg oral tablet (3 sources) Penicillin-class Antibacterial Start: 08-17-2018 End: 08-27-2018 take 1 tablet by mouth every eight hours Amoxicillin-Pot Clavulanate (Augmentin) 500-125 mg tablet Discontinued 1 TAB PO Q8H 30 August 17, 2018 12:00am August 27, 2018 12:02am ampicillin (OMNIPEN) 2 g in sodium chloride 0.9 % 100 mL IVPB (1 source) Start: 12-19-2018 End: 12-20-2018 ampicillin (OMNIPEN) 2 g in sodium chloride 0.9 % 100 mL IVPB ascorbic acid 500 mg oral tablet (3 sources) Vitamin C Start: 01-28-2020 End: 10-30-2020 take 1 tablet by mouth twice daily Ascorbic Acid (Vitamin C) (Vitamin C) 500 mg Tablet Discontinued 500 MG PO Twice daily 60 January 28, 2020 12:00am October 30, 2020 12:47pm Balsam [place] Oil (Venelex) Ointment (3 sources) Start: 01-28-2020 End: 10-30-2020 Balsam [place] Oil (Venelex) Ointment Discontinued 1 APPLIC TOPICAL Three times daily 60 January 28, 2020 12:00am October 30, 2020 12:47pm caffeine 100 mg / ergotamine tartrate 1 mg oral tablet (3 sources) Central Nervous System Stimulant, Ergotamine Derivative, Methylxanthine Start: 12-06-2019 End: 01-28-2020 take 2 tablets by mouth every two hours Ergotamine-Caffeine Discontinued 0 PO .COMPLEX December 06, 2019 12:00am January 28, 2020 9:43am take 2 tablets at onset of headache; if no relief, may repeat 1 tablet after at least 2 hrs; max = 3 tabs/24 hrs cefdinir 300 mg oral capsule (3 sources) Cephalosporin Antibacterial Start: 09-30-2019 End: 11-29-2019 take 300 mg by mouth twice daily Cefdinir Discontinued 300 MG PO Twice daily 10 September 30, 2019 12:00am November 29, 2019 11:24pm cefepime (MAXIPIME) 2 g IVPB minibag (1 source) Start: 04-21-2020 End: 04-23-2020 2 g, Intravenous, EVERY 8 HOURS, First dose on Tue04/21/20 at 1230, Until Discontinued ciprofloxacin 500 mg oral tablet (3 sources) Quinolone Antimicrobial Start: 08-17-2018 End: 08-27-2018 take 1 tablet by mouth every twelve hours Ciprofloxacin Hcl (Cipro) 500 mg tablet Discontinued 500 MG PO Q12H 25 02August 17, 2018 12:00am August 27, 2018 12:02am codeine phosphate 2 mg/ml / promethazine hydrochloride 1.25 mg/ml oral solution (3 sources) Opioid Agonist, Phenothiazine Start: 04-14-2018 End: 05-20-2018 take 1 mL by mouth every four hours Promethazine-Codein e Discontinued 5 ML PO Q4H 120 April 14, 2018 1:00am May 20, 2018 3:04pm cyproheptadine hydrochloride 4 mg oral tablet (3 sources) Start: 01-28-2020 End: 10-30-2020 take 4 mg by mouth once daily at bedtime Cyproheptadine Discontinued 4 MG PO Daily at bedtime January 28, 2020 12:00am October 30, 2020 12:47pm dexamethasone 6 mg oral tablet (1 source) Corticosteroid Start: 04-21-2020 End: 04-21-2020 take 6 mg by mouth once daily 6 mg, Oral, DAILY, First dose on Tue04/21/20 at 1230, For 10 doses diclofenac sodium 0.01 mg/mg topical gel (5 sources) Nonsteroidal Anti-inflammatory Drug Start: 01-28-2020 End: 10-30-2020 apply 2 g topically three times daily Diclofenac Sodium Discontinued 2 GM TOPICAL Three times daily January 28, 2020 12:00am October 30, 2020 12:47pm Start: 01-04-2019 End: 04-28-2020 diclofenac sodium 1 % GEL In dications: Arthralgia, unspecified joint Apply 2 g topically 4 times daily 2 Tube 1 01/04/2019 04/28/2020 Discontinued (Stop Taking at Discharge) Start: 10-11-2018 diclofenac sod ium 1 % GEL Indications: Arthralgia, unspecified joint Apply 2 g topically 4 times daily 2 Tube 1 10/11/2018 Active DULoxetine 30 mg delayed release oral capsule (3 sources) Serotonin and Norepinephrine Reuptake Inhibitor Start: 10-30-2020 End: 11-15-2020 take 1 capsule by mouth once daily Duloxetine (Cymbalta) 30 mg Capsule,Delayed Release(Dr/Ec) Discontinued 30 MG PO Daily October 30, 2020 12:00am November 15, 2020 6:18am ferrous sulfate (5 sources) FERROUS SULFATE ORAL Take by mouth. 0 Active Comment on above: Take by mouth. furosemide 40 mg oral tablet (18 sources) Loop Diuretic Start: 12-19-2018 End: 04-29-2020 take 40 mg by mouth once daily 40 mg, Oral, DAILY, First dose on Tue12/19/18 at 1500 Start: 10-03-2018 End: 10-30-2020 take 40 mg by mouth twice daily Furosemide Discontinued 40 MG PO BID@0800,1600 60 January 28, 2020 12:00am October 30, 2020 12:47pm Start: 08-14-2018 End: 10-03-2018 take 40 mg by mouth once daily Furosemide Discontinued 40 MG PO Daily August 14, 2018 12:00am October 03, 2018 11:18am Start: 05-20-2018 End: 06-19-2018 take 1 tablet by mouth once daily Furosemide (Lasix) 20 mg tablet Discontinued 20 MG PO Daily May 20, 2018 1:00am June 19, 2018 1:35pm gabapentin 300 mg oral capsule (17 sources) Anti-epileptic Agent Start: 09-26-2019 End: 10-30-2020 take 300 mg by mouth at bedtime Gabapentin Discontinued 300 MG PO Bedtime January 28, 2020 12:00am October 30, 2020 12:47pm take 1 capsule by [facility] three times daily gabapentin (NEURONTIN) 100 mg capsule Ta ke 100 mg by mouth three times daily. 0 Active Comment on above: Take 100 mg by mouth three times daily. gentian socorro 10 mg/ml topical solution (3 sources) Start: 10-31-19 End: 11-16-19 Gentian Socorro Discontinued 1 APPLIC TOPICAL Twice daily October 30, 2020 12:00am November 15, 2020 6:18am APPLY TO R GREAT TOE glipiZIDE 5 mg oral tablet (3 sources) Sulfonylurea Start: 01-28-20 End: 10-31-19 take 5 mg by mouth twice daily before mealtime Glipizide Discontinued 5 MG PO Twice daily before meals 60 January 28, 2020 12:00am October 30, 2020 12:47pm Glucometer (20 sources) Start: 02-26-20 Glucometer Glucometer, See Instructions, 1 EA, 0, Glucometer, [id number], Supply, 180, cm, 02/25/22 10:46:00 EDT, Height/Length Dosing, 187.5, kg, 02/25/22 10:46:00 EDT, Weight Dosing Start Date: 02/25/22 Status: Ordered 3 ml insulin detemir 100 unt/ml pen injector (3 sources) Insulin Analog Start: 01-16-20 End: 01-28-20 Insulin Detemir U-100 (Levemir Flextouch U-100 Insuln) 100 unit/mL (3 mL) Insulin Pen Discontinued 30 UNIT SUBCUT Twice daily January 16, 2020 12:00am January 28, 2020 9:43am iopamidol (ISOVUE-300) 61 % injection 100 mL (1 source) Start: 04-23-20 End: 04-23-20 iopamidol (ISOVUE-300) 61 % injection 100 mL iopamidol (ISOVUE-370) 76 % injection 100 mL (1 source) Start: 03-19-20 End: 03-19-20 iopamidol (ISOVUE-370) 76 % injection 100 mL iopamidol (ISOVUE-370) 76 % injection 75 mL (1 source) Start: 04-24-20 End: 04-24-20 iopamidol (ISOVUE-370) 76 % injection 75 mL 1 ml ketorolac tromethamine 30 mg/ml cartridge (2 sources) Nonsteroidal Anti-inflammatory Drug, Cyclooxygenase Inhibitor Start: 04-23-20 End: 04-23-20 ketorolac (TORADOL) injection 30 mg Start: 12-19-2018 End: 12-24-2018 ketorolac (TORADOL) injectio n 15 mg levoFLOXacin 500 mg oral tablet (2 sources) Quinolone Antimicrobial Start: 04-23-2020 End: 04-28-2020 take 1 tablet by mouth once daily levoFLOXacin (LEVAQUIN) 500 MG tablet Take 1 tablet by mouth daily for 7 days 7 tablet 0 04/23/2020 04/28/2020 Discontinued (Stop Taking at Discharge) lisinopril 20 mg oral tablet (3 sources) Angiotensin Converting Enzyme Inhibitor Start: 09-26-2019 End: 01-16-2020 take 20 mg by mouth at bedtime Lisinopril Discontinued 20 MG PO Bedtime September 26, 2019 12:00am January 16, 2020 11:35am 1 ml LORazepam 2 mg/ml injection (1 source) Benzodiazepine Start: 04-23-2021 End: 04-23-2021 LORazepam (ATIVAN) injection 1 mg methylPREDNISolone 4 mg oral tablet (3 sources) Corticosteroid Start: 10-03-2018 End: 10-24-2018 take 1 tablet by mouth once Methylprednisolone (Medrol (Lamont)) 4 mg tablets,dose pack Discontinued 0 PO .COMPLEX October 03, 2018 12:00am October 24, 2018 12:34pm orally per package directions metoprolol tartrate 25 mg oral tablet (10 sources) beta-Adrenergic Gilson Start: 09-24-2018 End: 10-30-2020 take 25 mg by mouth twice daily Metoprolol Tartrate Discontinued 25 MG PO Twice daily 60 January 28, 2020 12:00am October 30, 2020 12:47pm midodrine hydrochloride 5 mg oral tablet (1 source) alpha-Adrenergic Agonist Start: 04-21-2020 End: 04-24-2020 midodrine (PROAMATINE) tablet 10 mg Multivitamin capsule (5 sources) take 1 capsule by mouth once daily Multivitamin capsule Take 1 capsule by mouth once daily. 0 Active Comment on above: Take 1 capsule by [facility] once daily. norepinephrine (LEVOPHED) 16 mg in sodium chloride 0.9 % 250 mL infusion (1 source) Start: 04-21-2020 End: 04-24-2020 norepinephrine (LEVOPHED) 16 mg in sodium chloride 0.9 % 250 mL infusion piperacillin-tazobacta m (ZOSYN) 3.375 g in dextrose 5 % 50 mL IVPB (mini-bag) (1 source) Start: 12-18-2018 End: 12-18-2018 piperacillin-tazobact am (ZOSYN) 3.375 g in dextrose 5 % 50 mL IVPB (mini-bag) piperacillin-tazobacta m (ZOSYN) 3.375 g in dextrose 5 % 50 mL IVPB extended infusion (mini-bag) (1 source) Start: 12-19-2018 End: 12-19-2018 piperacillin-tazobact am (ZOSYN) 3.375 g in dextrose 5 % 50 mL IVPB extended infusion (mini-bag) polysaccharide iron complex 200 mg oral capsule (3 sources) Start: 07-05-2018 End: 07-19-2018 Polysaccharide Iron Complex Discontinued 200 MG PO Every 48 hours July 05, 2018 1:00am July 19, 2018 2:52pm swallow whole; do not crush/chew; administer on an empty stomach, if possible microencapsulated potassium chloride 20 meq extended release oral tablet (12 sources) Start: 01-28-2020 End: 10-30-2020 Potassium Chloride (Klor-Con M20) 20 mEq Tablet,Er Particles/Crystals Discontinued 20 MEQ PO Daily January 28, 2020 12:00am October 30, 2020 12:47pm Start: 12-20-2018 take 1 tablet by bailey th once daily at breakfast, then take 0.5 tablet by mouth, then take 0.5 tablet by mouth 20 mEq, Oral, DAILY WITH BREAKFAST, First dose on Tue12/20/18 at 0800 Do not crush, chew, or suck on tablet. Tablet may also be broken in half and each half swallowed separately. Start: 08-14-2018 End: 08-31-2018 take 1 tablet by mouth once daily Potassium Chloride Discontinued 1 TAB PO Daily August 14, 2018 12:00am August 31, 2018 8:47pm Start: 05-20-2018 End: 06-19-2018 take 10 mEq by mouth once daily Potassium Chloride Dis continued 10 MEQ PO Daily May 20, 2018 1:00am June 19, 2018 1:35pm End: 04-29-2020 take 1 tablet by mouth once daily at breakfast potassium chloride (KLOR-CON M) 20 MEQ TBCR extended release tablet Take 20 mEq by mouth daily (with breakfast) 0 04/29/2020 Discontinued (Stop Taking at Discharge) rivaroxaban 10 mg oral tablet (8 sources) Factor Xa Inhibitor Start: 04-14-2018 End: 07-04-2018 take 1 tablet by mouth once daily Rivaroxaban (Xarelto) 10 mg tablet Discontinued 10 MG PO Daily April 14, 2018 1:00am July 04, 2018 4:14pm take 20 mg by mouth once daily R IVAROXABAN (XARELTO ORAL) Take 20 mg by mouth once daily. 0 Active Comment on above: Take 20 mg by mouth once daily. sulfamethoxazole 800 mg / trimethoprim 160 mg oral tablet (3 sources) Dihydrofolate Reductase Inhibitor Antibacterial, Sulfonamide Antimicrobial Start: 10-25-19 End: 09-25-19 take 1 tablet by mouth twice daily Sulfamethoxazole-Tr imethoprim (Bactrim Ds) 800-160 mg Tablet Discontinued 1 TAB PO Twice daily October 24, 2018 12:00am September 25, 2019 11:57pm technetium medronate (Tc-MDP) injection 28 millicurie (1 source) Start: 04-25-20 End: 04-25-20 technetium medronate (Tc-MDP) injection 28 millicurie traMADol hydrochloride 50 mg oral tablet (9 sources) Opioid Agonist Start: 01-16-20 End: 01-28-20 take 50 mg by mouth every eight hours Tramadol Discontinued 50 MG PO Q8H 15 January 16, 2020 12:00am January 28, 2020 9:43am Start: 12-19-2018 End: 12-24-2018 take 1 tablet by mouth every six hours as needed traMADol (ULTRAM) 50 MG tablet Take 50 mg by mouth every 6 hours as needed. 0 12/25/2018 Active 200 ml vancomycin 5 mg/ml injection (2 sources) Glycopeptide Antibacterial Start: 04-21-2020 End: 04-21-2020 vancomycin (VANCOCIN) 1000 mg in dextrose 5% 200 mL IVPB vancomycin (VANCOCIN) 2,000 mg in dextrose 5 % 500 mL IVPB (2 sources) Start: 04-22-2020 End: 04-22-2020 vancomycin (VANCOCIN) 2,000 mg in dextrose 5 % 500 mL IVPB Start: 12-19-2018 End: 12-19-2018 vancomycin (VANCOCIN) 2,000 mg in dextrose 5 % 500 mL IVPB vancomycin 1000 mg IVPB in 2 50 mL D5W addavial (1 source) Start: 12-18-2018 End: 12-19-2018 vancomycin 1000 mg IVPB in 2 50 mL D5W addavial Problems Active Problems Problem Classification Problem Date Documented Da te Episodic/Chronic Abdominal hernia (10 sources) Umbilical hernia; Translations: [Umbilical hernia without obstruction or gangrene] Onset: 7 12-27-2016 Episodic Abdominal pain (6 sources) Acute abdominal pain; Translations: [Unspecified abdominal pain] 12-04-2019 Episodic Acute and unspecified renal failure (5 sources) Acute injury of kidney; Translations: [Acute kidney failure, unspecified] Onset: 0 Resolved: 0 04-28-2020 Episodic Acute and unspecified renal failure (2 sources) Acute injury of kidney; Translations: [MARCIE (acute kidney injury)] Onset: 0 Resolved: 0 04-28-2020 Administrative/social admission (5 sources) Counseling procedure with explicit context; Translations: [Other reduced mobility] 10-13-2022 Episodic Anxiety disorders (20 sources) Anxiety; Translations: [Mixed anxiety and depressive disorder] 09-24-2021 Chronic Biliary tract disease (14 sources) Gallstone 09-22-2020 Episodic Cardiac dysrhythmias (15 sources) Tachycardia; Translations: [Sinus tachycardia] 02-25-2022 Episodic Chronic ulcer of skin (6 sources) Skin ulcer; Translations: [Non-pressure chronic ulcer of unspecified part of left lower leg with unspecified severity] Onset: 9 12-19-2018 Chronic Conditions associated with dizziness or vertigo (19 sources) Dizziness 12-23-2022 Episodic Deficiency and other anemia (1 source) Iron deficiency anemia, unspecified; Translations: [IRON DEFICIENCY ANEMIA UNSPECIFIED] Onset: 0 Episodic Deficiency and other anemia (20 sources) Anemia; Translations: [Anemia, unspecified] Onset: 3 07-25-2020 Episodic Diabetes mellitus with complications (8 sources) Type 2 diabetes mellitus with hyperglycemia; Translations: [Type 2 diabetes mellitus with other skin complications] Onset: 0 Chronic Diabetes mellitus with complications (1 source) Type 2 diabetes mellitus with diabetic polyneuropathy; Translations: [TYPE 2 DM W/DIABETIC POLYNEUROPATHY] Onset: 0 Diabetes mellitus without complication (20 sources) Diabetes mellitus; Translations: [Type 2 diabetes mellitus without complications] Onset: 6 12-19-2018 Chronic Disorders of lipid metabolism (20 sources) Hyperlipidemia; Translations: [Hyperlipidemia, unspecified] Onset: 3 Chronic Disorders of teeth and jaw (1 source) Disorder of teeth AND/OR supporting structures; Translations: [Other specified disorders of teeth and supporting structures] Onset: 4 Episodic Esophageal disorders (20 sources) Gastroesophageal reflux disease; Translations: [Gastroesophageal reflux disease without esophagitis] Onset: 3 07-25-2020 Chronic Esophageal disorders (2 sources) Esophageal disorders; Translations: [Gastro-esophageal reflux disease with esophagitis, without bleeding] Onset: 3 Essential hypertension (20 sources) Hypertensive disorder; Translations: [Essential (primary) hypertension] Onset: 0 12-19-2018 Chronic External cause codes: Unspecified (1 source) Nosocomial condition; Translations: [NOSOCOMIAL CONDITION] Onset: 0 Fever of unknown origin (1 source) Fever, unspecified; Translations: [FEVER UNSPECIFIED] Onset: 0 Episodic Fluid and electrolyte disorders (10 sources) Lactic acidosis; Translations: [Fluid overload, unspecified] Onset: 9 Resolved: 0 12-19-2018 Episodic Genitourinary symptoms and ill-defined conditions (1 source) Hematuria, unspecified; Translations: [HEMATURIA UNSPECIFIED] Onset: 0 Episodic Headache; including migraine (20 sources) Migraine; Translations: [Migraine, unspecified, not intractable, without status migrainosus] 03-16-2018 Chronic Headache; including migraine (4 sources) Headache; Translations: [Headache] Onset: 0 07-01-2018 Episodic Immunizations and screening for infectious disease (1 source) Contact with and (suspected) exposure to other viral communicable diseases; Translations: [CONTCT EXPS OTH VIRL COMMUNICABL DZ] Onset: 0 Episodic Infective arthritis and osteomyelitis (except that caused by tuberculosis or sexually transmitted disease) (1 source) Acute osteomyelitis of pelvic region and/or thigh; Translations: [Acute osteomyelitis of right pelvic region and thigh (HCC)] Chronic Malaise and fatigue (9 sources) Asthenia; Translations: [Other malaise] 01-10-2020 Episodic Miscellaneous mental health disorders (9 sources) Chronic insomnia 04-22-2023 Chronic Mood disorders (20 sources) Bipolar disorder, unspecified; Translations: [Bipolar disorder] Onset: 0 Chronic Mycoses (15 sources) Pain in toe; Translations: [Tinea unguium] Episodic Nausea and vomiting (9 sources) Nausea; Translations: [Nausea] Onset: 0 Episodic Non-Hodgkin`s lymphoma (20 sources) B-cell lymphoma (clinical); Translations: [Diffuse large B-cell lymphoma, extranodal and solid organ sites] Onset: 2 Chronic Nonspecific chest pain (20 sources) Other chest pain; Translations: [Chest pain] Onset: 0 Episodic Open wounds of extremities (3 sources) Disorder of lower extremity; Translations: [Unspecified open wound, left lower leg, initial encounter] 09-26-2019 Episodic Osteoarthritis (7 sources) Unilateral primary osteoarthritis, right hip; Translations: [Osteoarthritis] Onset: 0 10-26-2019 Chronic Other acquired deformities (2 sources) Contracture of joint of left ankle; Translations: [Contracture, left ankle] Onset: 3 09-27-2022 Chronic Other aftercare (1 source) 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; Translations: [OTH [facility] CURRENT DRUG THERAPY] Onset: 0 Episodic Other aftercare (1 source) Long-term current use of anticoagulant; Translations: [custodial (current) use of anticoagulants] Episodic Other aftercare (2 sources) Seen by palliative care medicine service 10-13-2022 Episodic Other aftercare (1 source) custodial (current) use of oral hypoglycemic drugs; Translations: [[facility] USE ORAL HYPOGLYCEMIC DX] Onset: 0 Other bone disease and musculoskeletal deformities (1 source) Costal chondritis; Translations: [Chondrocostal junction syndrome [Tietze]] Onset: 1 03-23-2021 Episodic Other connective tissue disease (3 sources) Swelling of lower limb; Translations: [Other specified soft tissue disorders] 10-24-2018 Episodic Other connective tissue disease (1 source) Pain of toe of left foot; Translations: [Pain in left toe(s)] 02-20-2024 Episodic Other connective tissue disease (1 source) Pain of toe of right foot; Translations: [Pain in right toe(s)] 02-20-2024 Episodic Other diseases of veins and lymphatics (1 source) Lymphedema, not elsewhere classified; Translations: [LYMPHEDEMA NOT ELSEWHERE CLASSIFIED] Onset: 0 Chronic Other diseases of veins and lymphatics (3 sources) Chronic acquired lymphedema; Translations: [Lymphedema, not elsewhere classified] 09-26-2019 Chronic Other diseases of veins and lymphatics (3 sources) Lymphedema; Translations: [Lymphedema, not elsewhere classified] 08-31-2018 Chronic Other diseases of veins and lymphatics (3 sources) Stasis dermatitis; Translations: [Venous insufficiency (chronic) (peripheral)] 10-26-2019 Episodic Other female genital disorders (3 sources) Mass of uterine adnexa; Translations: [Other specified conditions associated with female genital organs and menstrual cycle] 01-17-2020 Episodic Other gastrointestinal disorders (3 sources) Constipation; Translations: [Constipation, unspecified] 12-17-2019 Episodic Other gastrointestinal disorders (1 source) Bariatric surgery status; Translations: [Bariatric surgery status] Onset: 3 Episodic Other gastrointestinal disorders (12 sources) Swallowing painful 03-18-2023 Episodic Other gastrointestinal disorders (2 sources) Dysphagia, unspecified; Translations: [Dysphagia, unspecified] Onset: 3 Episodic Other hematologic conditions (3 sources) Raised cardiac enzyme or marker; Translations: [Other specified abnormalities of plasma proteins] 03-10-2018 Episodic Other infections; including parasitic (3 sources) Cutaneous myiasis; Translations: [CUTANEOUS MYIASIS] Onset: 0 Episodic Other injuries and conditions due to external causes (1 source) History of fall; Translations: [History of falling] Onset: 2 Episodic Other liver diseases (2 sources) Unspecified cirrhosis of liver; Translations: [Unspecified cirrhosis of liver] Onset: 3 Chronic Other lower respiratory disease (1 source) Cough; Translations: [Cough] Episodic Other lower respiratory disease (20 sources) Dyspnea; Translations: [Shortness of breath] 09-26-2019 Episodic Other lower respiratory disease (3 sources) Respiratory distress; Translations: [Acute respiratory distress] 12-17-2019 Episodic Other nervous system disorders (1 source) Other chronic pain; Translations: [OTHER CHRONIC PAIN] Onset: 0 Chronic Other nervous system disorders (1 source) Polyneuropathy; Translations: [Polyneuropathy, unspecified] Onset: 2 Chronic Other nervous system disorders (20 sources) Neuropathy 07-25-2020 Chronic Other nervous system disorders (20 sources) Pain due to neoplastic disease 10-12-2022 Chronic Other nervous system disorders (3 sources) Abnormal circadian rhythm; Translations: [Circadian rhythm sleep disorder, unspecified type] 01-17-2020 Chronic Other non-traumatic joint disorders (4 sources) Pain in right hip; Translations: [PAIN IN RIGHT HIP] Onset: 0 Episodic Other non-traumatic joint disorders (1 source) Pain in right hip joint; Translations: [Pain in right hip] Episodic Other non-traumatic joint disorders (17 sources) Hip pain; Translations: [Pain in unspecified hip] 01-29-2021 Episodic Other nutritional; endocrine; and metabolic disorders (20 sources) Morbid obesity; Translations: [Morbid (severe) obesity due to excess calories] Onset: 6 12-19-2018 Chronic Other nutritional; endocrine; and metabolic disorders (1 source) Morbid (severe) obesity due to excess calories; Translations: [MORBID SEVERE OBES D/T EXCESS LOIS] Onset: 0 Chronic Other nutritional; endocrine; and metabolic disorders (1 source) Body mass index (BMI) 60.0-69.9, adult; Translations: [BODY MASS INDEX BMI 60.0-69.9 ADULT] Onset: 0 Chronic Other nutritional; endocrine; and metabolic disorders (20 sources) Body mass index 40+ - severely obese; Translations: [Body mass index (BMI) 50.0-59.9, adult] Onset: 2 09-22-2020 Chronic Other screening for suspected conditions (not mental disorders or infectious disease) (3 sources) D-dimer above reference range; Translations: [Other specified abnormal findings of blood chemistry] 07-20-2019 Episodic Other skin disorders (20 sources) History of cellulitis 09-22-2020 Episodic Other skin disorders (14 sources) Impaired skin integrity 09-24-2021 Episodic Comment on above: Problem added on doc umentation of skin impairments. Other skin disorders (19 sources) Night sweats 12-23-2022 Episodic Other upper respiratory disease (3 sources) Bronchospasm; Translations: [Acute bronchospasm] 08-20-2018 Episodic Other upper respiratory infections (12 sources) Acute upper respiratory infection; Translations: [Acute upper respiratory infection, unspecified] Onset: 3 Episodic Pathological fracture (20 sources) Pathological fracture - pelvis and/or thigh 07-25-2020 Episodic Phlebitis; thrombophlebitis and thromboembolism (20 sources) Deep venous thrombosis; Translations: [Acute embolism and thrombosis of unspecified deep veins of unspecified lower extremity] Onset: 2 Episodic Pneumonia (except that caused by tuberculosis or sexually transmitted disease) (1 source) Other viral pneumonia; Translations: [OTHER VIRAL PNEUMONIA] Onset: 0 Episodic Pulmonary heart disease (20 sources) Pulmonary thromboembolism; Translations: [Other pulmonary embolism without acute cor pulmonale] Onset: 5 03-16-2018 Episodic Residual codes; unclassified (3 sources) Obstructive sleep apnea syndrome; Translations: [Obstructive sleep apnea (adult) (pediatric)] 12-12-2019 Chronic Residual codes; unclassified (20 sources) Insomnia; Translations: [Insomnia, unspecified] Onset: 3 07-25-2020 Episodic Residual codes; unclassified (14 sources) Sleep disorder 09-24-2021 Episodic Residual codes; unclassified (1 source) Patient encounter status; Translations: [Other specified health status] Onset: 3 Episodic Residual codes; unclassified (6 sources) Family history of breast cancer 06-02-2023 Episodic Respiratory failure; insufficiency; arrest (adult) (3 sources) [id number] respiratory failure; Translations: [Acute and chronic respiratory failure with hypoxia] 12-17-2019 Chronic Septicemia (except in labor) (11 sources) Sepsis; Translations: [Sepsis, unspecified organism] Onset: 6 Resolved: 0 11-01-2017 Episodic Skin and subcutaneous tissue infections (20 sources) Cellulitis of abdominal wall ; Translations: [Cellulitis and abscess of lower limb] Onset: 6 12-19-2018 Episodic Spondylosis; intervertebral disc disorders; other back problems (3 sources) Sciatica; Translations: [Sciatica, unspecified side] 11-30-2019 Episodic Sprains and strains (3 sources) Sprain of knee; Translations: [Sprain of unspecified site of right knee, initial encounter] 10-30-2020 Episodic Thyroid disorders (20 sources) Hypothyroidism; Translations: [Hypothyroidism, unspecified] Onset: 3 Chronic Unclassified (2 sources) Drug therapy finding; Translations: [Anticoagulated] Onset: 8 11-06-2017 Unclassified (3 sources) COVID-19; Translations: [COVID-19] Onset: 0 Unclassified (20 sources) Non-smoker 09-22-2020 Unclassified (4 sources) Patient encounter status 10-12-2022 Unclassified (1 source) Long-term current use of drug therapy 11-09-2022 Unclassified (20 sources) History of bypass of stomach 12-16-2022 Unclassified (1 source) Diffuse large B-cell lymphoma, extranodal and solid organ sites; Translations: [Diffuse large B-cell lymphoma, extranodal and solid organ sites] Onset: 3 Urinary tract infections (20 sources) Acute hemorrhagic cystitis; Translations: [Urinary tract infection, site not specified] Onset: 8 11-06-2017 Episodic Viral infection (13 sources) Other specified viral infection; Translations: [Disease caused by 2019-nCoV] Onset: 0 Resolved: 0 04-28-2020 Episodic Past or Other Problems Problem Classification Problem Date Documented Da te Episodic/Chronic Deficiency and other anemia (9 sources) Iron deficiency anemia; Translations: [Iron deficiency anemia, unspecified] Onset: 7 11-06-2017 Episodic Fracture of lower limb (2 sources) Closed fracture metatarsal head ; Translations: [Fracture of unspecified metatarsal bone(s), left foot, initial encounter for closed fracture] Onset: 3 09-27-2022 Episodic Other aftercare (2 sources) Drug therapy finding; Translations: [custodial (current) use of anticoagulants] Onset: 8 11-06-2017 Episodic Other complications of (4 sources) Antepartum deep vein thrombosis; Translations: [Deep phlebothrombosis in , unspecified trimester] Onset: 5 03-16-2018 Episodic Other connective tissue disease (5 sources) Pain in left lower limb; Translations: [Pain in left leg] Onset: 6 12-19-2018 Episodic Other connective tissue disease (4 sources) Non-traumatic rhabdomyolysis; Translations: [Rhabdomyolysis] Onset: 0 Resolved: 0 04-28-2020 Episodic Other fractures (4 sources) Fracture of pelvis; Translations: [Fracture of unspecified parts of lumbosacral spine and pelvis, initial encounter for closed fracture] Onset: 0 04-28-2020 Episodic Other gastrointestinal disorders (2 sources) Other dysphagia; Translations: [Other dysphagia] Onset: 3 Episodic Other nervous system disorders (4 sources) Abnormal gait; Translations: [Unspecified abnormalities of gait and mobility] Onset: 8 11-06-2017 Episodic Shock (2 sources) Septic shock; Translations: [Septic shock (HCC)] Onset: 0 Resolved: 0 04-28-2020 Episodic Superficial injury; contusion (2 sources) Contusion of left foot; Translations: [Contusion of left foot, initial encounter] Onset: 3 09-27-2022 Episodic Unclassified (14 sources) Bipolar (qualifier value) 04-30-2010 Unclassified (14 sources) Open wound of abdomen 09-24-2021 Varicose veins of lower extremity (4 sources) Ruptured varicose veins; Translations: [Varicose veins of unspecified lower extremity with other complications] Onset: 7 12-27-2016 Episodic Results Test Name Value Interpretation Reference Range Facility Oncology Supportive Care Not damon 02-08-2024 Oncology Supportive Care Note Oncology Supportive Care Note Patient canceled today's supportive oncology appointment and did not reschedule. Normal [facility] ED Clinical Summaryon 2023 ED Clinical Summary ED Clinical Summary [address] [address] ED Clinical Summary Person Information Name: LISA PINTO Torie/[facility] Age: 42 Years : 1980 Sex: Female Language: Nauruan PCP: LYNDSAY BARAHONA CNP Marital Status: Phone: [phone] MRN: Visit Id: Visit Reason: Mouth pain; Dental pain; RIGHT TOOTH PAIN Speciality: Acuity: 5 Enc Type: Emergency Med Service: Emergency Arrival: 11/14/2023 00:22:49 Discharge: 11/14/2023 00:53:40 LOS: 000 00:31 Checkin: 11/14/2023 00:22:49 Checkout: 11/14/2023 00:53:40 Dispo Type: Home (Routine DC) EVENTS: Event Name Event Status Request Date/Time Start Date/Time Complete Date/Time Arrive Complete 11/14/2023 00:22:49 11/14/2023 00:22:49 11/14/2023 00:22:49 Document Home Meds Request 11/14/2023 00:22:49 Triage Complete 11/14/2023 00:22:49 11/14/2023 00:31:12 11/14/2023 00:31:12 Bed Assign Complete 11/14/2023 00:23:47 11/14/2023 00:23:47 11/14/2023 00:23:47 Dr Exam Complete 11/14/2023 00:23:47 11/14/2023 00:23:50 11/14/2023 00:23:50 RN Exam Complete 11/14/2023 00:23:47 11/14/2023 00:54:49 11/14/2023 00:54:49 Registration Complete 11/14/2023 00:23:50 11/14/2023 00:25:40 11/14/2023 00:25:40 Reg Complete Request 11/14/2023 00:25:40 Reg Bed Request Complete 11/14/2023 00:25:40 11/14/2023 00:25:40 11/14/2023 00:25:40 Isolation Screening Request 11/14/2023 00:31:13 Meds Admin Request 11/14/2023 00:38:06 Discharge Complete 11/14/2023 00:39:39 11/14/2023 00:55:46 11/14/2023 00:55:46 Transfer Complete 11/14/2023 00:55:46 11/14/2023 00:55:46 11/14/2023 00:55:46 ADDRESS: [address] [facility] [id number] PHYS DOC NOTES: MEDICAL INFORMATION: Prescriptions Given: New Medications [id number], [address] [place] [phone], [phone] clindamycin (clindamycin 150 mg Cap) 3 Capsules By Mouth 3 times a day for 7 Days. Refills: 0. Medications to Continue with No Changes Other Medications apixaban (Eliquis 5 mg oral tablet) 1 Tablets By Mouth 2 times a day. Refills: 11. hydrOXYzine (hydrOXYzine hydrochloride 25 mg Tab) 1 Tablets By Mouth every 6 hours as needed as needed for anxiety. Refills: 1. levothyroxine (levothyroxine 25 mcg (0.025 mg) Tab) 1 Tablets By Mouth every day. Take on an empty stomach from other meds/vitamins/food by 60 minutes.. Refills: 5. lidocaine topical (lidocaine Top 5% film Patch) 1 Patches Topical every day. change patch every 24h. Refills: 2. Misc Prescription (Glucometer) Glucometer. Refills: 0. Misc Prescription (Lancets) Lancets. Refills: 11. Misc Prescription (Lancett device) uset to check bs. Refills: 1. Misc Prescription (Test strips) Test strips test 3 times a day. Refills: 11. ondansetron (ondansetron 4 mg Dis Tab) 1 tab(s) Oral q6hr allow tablet to dissolve on tongue; as needed Nausea/Vomiting. Refills: 2. ramelteon (ramelteon 8 mg oral tablet) 1 Tablets By Mouth once a day (at bedtime). Refills: 1. PATIENT EDUCATION INFORMATION: Instructions: Dental Pain Follow up: With: Address: When: Dental: [facility] [phone] In 3 days 11/17/2023 With: Address: When: Dental: [place] [email or web address] [phone] In 3 days 11/17/2023 With: Address: When: Dental: [facility] [phone] In 3 days 11/17/2023 With: Address: When: [employer] [place] [address] [place] [address] [employer] In 2 days 11/16/2023 DIAGNOSIS: Pain, dental Normal [facility] ED Note-Physicianon 11-14-19 ED Note-Physician ED Note-Physician Basic Information Time Seen: Jack Young DO 11/14/2023 00:23 Chief Complaint pt to ED with c/o R sided tooth pain. denies fevers or chills or nausea. ongoing for approx 3 days. History of Present Illness HPI: Patient is a 42-year-old female who presents the ED for right lower dental pain. Patient states for this has been going on for approximately 3 days. She has tried taking Tylenol at home but is unable to control pain. She denies any fever or chills. She denies any difficulty swallowing. She tried to eat into a dentist but they would be unable to see her for weeks. ROS: Pertinent review of systems conducted and is negative except as noted above. Physical exam: General: nontoxic appearing and in no distress HEENT: Mucous membranes moist. Broken right posterior most molar. Airway is intact. Neuro: awake and alert Neck: supple, trachea midline Card: Heart regular rate and rhythm no murmur Resp: Lungs clear to auscultation no wheeze or rhonchi Physical Exam Vitals & Measurements T: 36.5 ?C(Oral) HR: 66(Peripheral) RR: 18 BP: 114/74 SpO2: 99% HT: 175 cm WT: 116.9 kg BMI: 38.17 Medical Decision Making MEDICAL DECISION MAKING Number and Complexity of Problems Differential Diagnosis: [] [facility] Data External documents reviewed: N/A My EKG interpretation: Noted in chart if applicable My CT interpretation: N/A My X-ray interpretation: Noted in chart if applicable My Ultrasound interpretation: N/A Decision rules/scores evaluated: N/A Discussed with: N/A Treatment and Disposition ED Course: Patient is well-appearing no distress. She has a broken right lower molar where she is having pain. No other abnormal physical exam findings. Will give her a dose of Toradol here in the ED for comfort as well as lidocaine and benzocaine soaked cotton balls for topical relief. Will start her on clindamycin as she is penicillin allergic. Will give her resources for local dental clinics. Shared decision making: As above Code status: N/A Assessment/Plan Pain, dental (K08.89: Other specified disorders of teeth and supporting structures) Orders: benzocaine topical, 1 angel, Gel, Topical, QID for 30 day(s), Stop date 12/14/23 0:36:00 EDT, STAT, Start date 11/14/23 0:37:00 EDT clindamycin, 450 mg = 3 cap(s), Cap, Oral, Once, Stop date 11/14/23 0:37:00 EDT, STAT, Start date 11/14/23 0:37:00 EDT, 11/14/23 0:37:00 EDT clindamycin, 450 mg = 3 cap(s), Oral, TID, X 7 day(s), # 63 cap(s), Refills(s) 0, [facility]: [id number], 175, cm, 11/14/23 0:31:00 EDT, Height/Length Dosing, 116.9, kg, 11/14/23 0:31:00 EDT, Weight Dosing ketorolac, 30 mg = 1 mL, Injection, IntraMuscular, Once, Stop date 11/14/23 0:37:00 EDT, STAT, Start date 11/14/23 0:37:00 EDT, 11/14/23 0:37:00 EDT lidocaine topical, 200 mg, 10 mL, Soln-Oral, Oral, Once, Stop date 11/14/23 0:37:00 EDT, STAT, Start date 11/14/23 0:37:00 EDT Disposition Plan Discharge Prescription List Prescriptions clindamycin 150 mg Cap, 450 mg= 3 cap(s), Oral, TID Follow-up With When Contact Information Dental: [facility] [phone] In 3 days 11/17/2023 EDT Additional Instructions: Dental: [employer] [phone] In 3 days 11/17/2023 EDT Additional Instructions: Dental: [facility] [phone] In 3 days 11/17/2023 EDT Additional Instructions: [facility] In 2 days 11/16/20[address] [place] [address] [employer] (1) Additional Instructions: Patient Education Dental Pain Problem List/Past Medical History Ongoing Acute chest pain Anemia B-cell lymphoma Bipolar disorder BMI 50.0-59.9, adult Chest pain, rule out acute myocardial infarction Diffuse large B cell lymphoma Dizziness Esophageal dysmotility Family history of malignant neoplasm of breast Fatigue GERD (gastroesophageal reflux disease) History of cellulitis History of DVT in adulthood History of pulmonary embolism HLD (hyperlipidemia) HTN (hypertension) Hypothyroidism Insomnia Migraine Morbid obesity Neoplasm related pain (acute) (chronic) Neuropathy Night sweats Non-smoker Odynophagia Pathologic fracture of ilium PTSD S/P gastric bypass Shortness of breath Historical No qualifying data Procedure/Surgical History Endoscopy and biopsy (04/06/2023), Gastric sleeve (10/25/2022), section, Cholecystectomy, Gallbladder, Tonsillectomy, Tonsillectomy. Medications Inpatient benzocaine topical 20% gel, 1 angel, Topical, QID clindamycin 150 mg Cap, 450 mg= 3 cap(s), Oral, Once ketorolac 30 mg/mL Inj 1 mL, 30 mg= 1 mL, IntraMuscular, Once lidocaine Viscous Top 2% Minoo, 200 mg= 10 mL, Oral, Once Zero Hour, None, Day of Tx Home clindamycin 150 mg Cap, 450 mg= 3 cap(s), Oral, TID Eliquis 5 mg oral tablet, 5 mg= 1 tab(s), Oral, BID, 11 refills Glucometer, See Instructions, Not taking hydrOXYzine hydrochloride 25 mg Tab, 25 mg= 1 tab(s), Oral, q6hr, PRN, (more content not included)... Normal [facility] Comment on above: Result Comment: Elec tronically Signed By: Jakc Young DO\.br\Date and Time Signed: 11/14/23 00:42 EDT ED Patient Summaryon 024 ED Patient Summary ED Patient Summary [address] [address] Patient Discharge Instructions Person Information Name: LISA PINTO Age: 42 Years Arrival Date: 11/14/2023 00:22:49 Discharge Diagnosis: Pain, dental Primary Care Physician: LYNDSAY BARAHONA CNP Provider Information Primary Provider: Jack Young DO Advanced Java Project Manager:None The exam and treatment you received in the Emergency Department were for an urgent problem and are not intended as complete care. It is important that you follow up with a doctor, nurse practitioner, or physician?s bilingual office assistant for ongoing care. If your symptoms become worse or you do not improve as expected and you are unable to reach your usual health care provider, you should return to the Emergency Department. We are available 24 hours a day. LISA PINTO has been given the following list of patient education materials, prescriptions and follow-up instructions: Follow-up Instructions: With: Address: When: Dental: [facility] [phone] In 3 days 11/17/2023 With: Address: When: Dental: [place] [email or web address] [facility] [phone] In 3 days 11/17/2023 With: Address: When: Dental: [facility] [phone] In 3 days 11/17/2023 With: Address: When: [place] [id number] [facility] () In 2 days 11/16/2023 In the event that this physician does not participate in your insurance network, please consult with your insurance company to find a nearby participating provider. Patient Education Materials: Dental Pain A MESSAGE TO ALL PATIENTS REGARDING OPIOIDS PRESCRIPTION OPIOIDS: WHAT YOU NEED TO KNOW Prescription opioids can be used to help relieve azbeeilh-ls-grbqbc pain and are often prescribed following a surgery or injury, or for certain health conditions. These medications can be an important part of the treatment but also come with serious risks. It is important to work with your healthcare provider to make sure you are getting the safest, most effective care. WHAT ARE THE RISKS AND SIDE EFFECTS OF OPIOID USE? Prescription opioids carry serious risks of addiction and overdose, especially with prolonged use. An opioid overdose, often marked by slowed breathing, can cause sudden . The use of prescription opioids can have a number of side effects as well, even when taken as directed: ? Tolerance?meaning you might need to take more of the medication for the same pain relief ? Physical dependence?meaning you have symptoms of withdrawal when a medication is stopped ? Increased sensitivity to pain ? Constipation ? Nausea, vomiting, and dry mouth ? Sleepiness and dizziness ? Confusion ? Depression ? Low levels of testosterone that can result in lower sex drive, energy, and strength ? Itching and sweating RISKS ARE GREATER WITH: ? History of drug misuse, substance use disorder, or overdose ? Mental health conditions (such as depression or anxiety) ? Sleep apnea ? Older age (65 years and older) ? Avoid alcohol while taking prescription opioids. Also, unless specifically advised by your health care provider, medications to avoid include: ? Benzodiazepines (such as Xanax or Valium) ? Muscle relaxants (such as Soma or Flexeril) ? Hypnotics (such as Ambien or Lunesta) ? Other prescription opioids KNOW YOUR OPTIONS Talk to your health care provider about ways to manage your pain that don?t involve prescription opioids. Some of these options may actually work better and have fewer risks and side effects. Options may include: ? Pain relievers such as acetaminophen, ibuprofen, and naproxen ? Some medication that are also used for depression or seizures ? Physical therapy and exercise ? Cognitive behavioral therapy, a psychological, goal-directed approach, in which patients learn how to modify physical, behavioral, and emotional triggers of pain and stress. IF YOU ARE PRESCRIBED OPIOIDS FOR PAIN: ? Never take opioids in greater amounts or more often than prescribed. ? Follow up with your primary health care provider. o Work together to create a plan on how to manage your pain. o Talk about ways to help manage your pain that don?t involve prescription opioids. o Talk about any and all concerns and side effects. ? Help prevent misuse and abuse o Never sell or share prescription opioids. o Never use another person?s prescription opioids. ? Store prescription opioids in a secure place and out of reach of others (this may include visitors, children, friends, and family). ? Safely dispose of unused prescription opioids: Find your community drug take-back program or your pharmacy mail-back program, or flush them down the toilet, following guidance from the Food and Drug Administration (www.fda.gov/Drugs/Resou rcesForYou). ? Visit www.c (more content not included)... [facility] Prescriptions/Work Noteson 0 10-20-2023 Prescriptions/Work Notes [id number] FF [facility] Consent for Treatmenton Consent for Treatment [id number] F [facility] Oncology Progress Noteon Oncology Progress Note Chief Complaint Hx Lymphoma; asking if she needs a pet-ct Oncological History/ROS/PE/Assessmen t and Plan 42-year-old female past medical history significant for type 2 diabetes, hypertension, anemia, depression anxiety, elevated BMI, history of DVT/PE 2018 or so at [facility] was on xarelto for 6 mos or so. . She presented initially to the [facility] with a pathologic pelvic fracture on weightbearing without trauma. From a lytic ischial lesion in April 18, 2021. A bone biopsy was performed and nondiagnostic but diffuse large B-cell lymphoma was favored by biopsy. CT-guided bone biopsy repeated 2 separate times at [facility] before definitive tissue was obtained confirming diffuse large B-cell lymphoma. A PET/CT performed was Charlotte category 5 with a destructive lesion in the right ischium and inferior pubic ramus involving the right acetabulum with associated surrounding soft tissue mass. Also mild hypermetabolic right external iliac soft tissue lymph node. A CT of the chest abdomen and pelvis with IV contrast around Mondovi time confirmed the same but also added a dilated main pulmonary artery up to 4.1 cm consistent with pulmonary hypertension. Also bilateral upper lobar groundglass opacities. Also suspected chronic splenic vein thrombosis with multiple collaterals in the left upper quadrant. No abdominal or pelvic lymphadenopathy by size criteria. Enlarged right ovary, fatty liver. Bone marrow biopsy was negative for lymphoma on May 22, 2020. Pretreatment echocardiogram showed ejection fraction of normal 60 to 65% May 13, 2020. Right ventricle was not well visualized. Her EBV was negative, HIV was negative, CMV was negative, hepatitis panel with a hepatitis B surface antibody positive only. Also of note she tested positive for COVID-19 in November 2020 again in February. Lost her in April due to COVID. She received R-CHOP chemotherapy on May 22 and May 23. She did ok overall, fatigue was debilitating. She was admitted to the hospital for fevers on June 18, 2020 and given cycle 2 of R-CHOP on June 20, 2020. She received Neupogen from June 21 through June 30. She required blood transfusion during this hospitalization. 2020. She got this is an inpatient at [facility] again under the care of Dr. Sorensen. Cycle 3 was given July 11, 2020 at [facility]. She had ONPRO patch afterwards. She did ok, severe fatigue, mild nausea, weak, no appetite. She had been seeing Ramsey Hoover, oncologist in [facility] and transferred to [place] as I am much closer to her home. She was admitted to hospital on 08/02/20 for pain in L leg and ultimately diagnosed with bilateral lower extremity DVT. US revealed IMPRESSION: EVIDENCE OF VENOUS THROMBOSIS INVOLVING THE DEEP FEMORAL, FEMORAL, AND POPLITEAL VEINS OF THE RIGHT DEEP VENOUS SYSTEM. NO EVIDENCE OF VENOUS THROMBOSIS INVOLVING VISUALIZED DEEP VEINS OF THE LEFT LEG. FINDINGS CONSISTENT WITH SUPERFICIAL VENOUS THROMBOSIS INVOLVING THE LEFT GREATER SAPHENOUS VEIN. She is on lovenox BID for now 120mg. R-CHOP #5 on 08/27/2020. after c5 hospitalized for panniculitis. Copmleted 6 cycles of RCHOP. She has pet/ct recently at [facility] which showed NO DEFINITE HYPERMETABOLIC ACTIVITY SUSPICIOUS FOR MALINGNANCY. she did have no uptake in her ischium and pubic ramus on the R side. she taking morphine q12hr 15mg SR. 01/06/21 she is at [facility] [place]. [facility]. she is not sleeping well. today was video visit. she could not see or hear me but she could read what i type. i could see her and hear her without any difficulty. she has no long acting pain meds. she taking about 3 to 4 persoet per day. ] 01/29/21 inpatient consult today Recently was [facility]. Patient is not ambulatory and unable to care for herself at home. She has excruciating right hip pain. This led her to come back to the emergency room. She is essentially completely nonambulatory. 02/17/21 she is at [facility] in [facility] facility. she has no scheduled visit to see Dr. Burrell. His office called and ordered CT of pelvis. I doubt they realized MRI was performed in hospital. she continues morphine SR 15mg every 12 hours. she continues percocet about 3 to 4 tab per day. she apparently is no longer taking lovenox since being in the skilled facility. our revew of records shows it was filled though on 02/06/21. 03/25/21 she continues to have a lot of pain in right side. when she sits up she gets sharp pain from butt to hip. no fevers, sweats chills. no lumps or bumps. breathing well. she is no longer taking lovenox. 06/24/21 VIDEO VISIT TODAY. She resides in [facility] permanently for now. she was supposed to see ortho onc in May and again in jun but this didnt work out for various reasons. Dr. Jurado out of [place]. She notes her weight is stable. She is 420lbs now. She ureña (more content not included)... Normal [facility] CBC w/ Auto Diffon 4 Basophils/100 WBC (Bld) 0.4 % Normal 0.0-2.[address] [facility] Comment on above: Performed By: #### 2 [id number] #### [facility] [address] [place] [address] Basophils/Leukocytes Auto (Bld) [Pure # fraction] 0.0 E9/L Normal 0.0-0.2 [facility] Comment on above: Performed By: #### 2 [id number] #### [facility] [address] [place] [address] Eosinophils (Bld) [#/Vol] 0.1 E9/L Normal 0.0-0.5 [facility] Comment on above: Performed By: #### 2 [id number] #### [facility] [address] [place] [address] Eosinophils/100 WBC (Bld) 4.4 % Normal 0.0-8.0 [facility] Comment on above: Performed By: #### 2 [id number] #### [facility] [address] [place] [address] Erythrocyte distribution width (RBC) [Ratio] 14.4 % High 10.9-14.2 [facility] Comment on above: Performed By: #### 2 [id number] #### [facility] [address] [place] [address] Hematocrit (Bld) [Volume fraction] 35.7 % Normal 34.0-46.0 [facility] Comment on above: Performed By: #### 2 [id number] #### [facility] [address] [place] [address] Hemoglobin (Bld) [Mass/Vol] 12.0 g/dL Normal 12.0-16.0 [facility] Comment on above: Performed By: #### 2 [id number] #### [facility] [address] [place] [address] Lymphocytes (Bld) [#/Vol] 1.3 E9/L Normal 1.0-4.0 [facility] Comment on above: Performed By: #### 2 [id number] #### [facility] [address] [place] [address] Lymphocytes/100 WBC (Bld) 40.4 % Normal 14.0-50.0 [facility] Comment on above: Performed By: #### 2 [id number] #### [facility] [address] [place] [address] MCH (RBC) [Entitic mass] 31.6 pg Normal 27.0-34.0 [facility] Comment on above: Performed By: #### 2 [id number] #### [facility] [address] [place] [address] MCHC (RBC) [Mass/Vol] 33.7 g/dL Normal 31.4-36.0 [facility] Comment on above: Performed By: #### 2 [id number] #### [facility] [address] [place] [address] MCV (RBC) [Entitic vol] 93.6 fL Normal 80.0-100.[address] [facility] Comment on above: Performed By: #### 2 [id number] #### [facility] [address] [place] [address] Monocytes (Bld) [#/Vol] 0.2 E9/L Normal 0.2-1.[address] [facility] Comment on above: Performed By: #### 2 [id number] #### [facility] [address] [place] [address] Neutrophils (Bld) [#/Vol] 1.5 E9/L Low 2.0-7.5 [facility] Comment on above: Performed By: #### 2 638160 #### [facility] [address] [place] [address] Neutrophils/100 WBC (Bld) 47.8 % Normal 36.0-75.0 [facility] Comment on above: Performed By: #### 2 005586 #### [facility] [address] [place] [address] Platelet mean volume (Bld) [Entitic vol] 8.8 fL Normal 6.4-10.8 [facility] Comment on above: Performed By: #### 2 360942 #### [facility] [address] [place] [address] Platelets (Bld) [#/Vol] 131.0 E9/L Low 150.0-500.0 [facility] Comment on above: Performed By: #### 2 918165 #### [facility] [address] [place] [address] RBC (Bld) [#/Vol] 3.8 E12/L Low 4.3-5.9 [facility] Comment on above: Performed By: #### 2 717874 #### [facility] [address] [place] [address] WBC corrected for nucl RBC Auto (Bld) [#/Vol] 3.2 E9/L Low 4.0-11.0 [facility] Comment on above: Performed By: #### 2 273694 #### [facility] [address] [place] [address] CHEMISTRYOrdered By: SYSTEM SYSTEM on 10-07-2023 Albumin [Mass/Vol] 3.5 g/dL Normal 3.3 - 5.0 gm/dL Remisol Chem Albumin/Globulin [Mass ratio] 1.3 {ratio} Normal 1.1 - 2.2 Remisol Chem ALP [Catalytic activity/Vol] 80 [iU]/d Normal 21 - 98 Int._Unit/L Remisol Chem ALT No additional P-5'-P [Catalytic activity/Vol] 48 [iU]/d High 6 - 46 Int._Unit/L Remisol Chem Anion gap [Moles/Vol] 8 mmol/L Normal 6 - 16 mEq/L [facility] Chem AST [Catalytic activity/Vol] 50 [iU]/d High 5 - 43 Int._Unit/L Remisol Chem Bilirubin [Mass/Vol] 1.5 mg/dL High 0.0 - 1 .1 mg/dL [facility] Chem Calcium [Mass/Vol] 8.3 mg/dL Low 8.9 - 11. 1 mg/dL [facility] Chem Chloride [Moles/Vol] 110 mmol/L Normal 101 - 1 11 mmol/L [facility] Chem CO2 [Moles/Vol] 28 mmol/L Normal 21 - 31 mmol/L [facility] Chem Creatinine [Mass/Vol] 0.6 mg/dL Normal 0.5 - 1.3 mg/dL [facility] Chem eGFR 114 mL/min/1.73 m2 Normal >=59mL/mi n/ 1.73 m2 [facility] Chem Ferritin [Mass/Vol] 97 ng/mL Normal 11 - 307 ng/mL [facility] Chem Globulin (S) [Mass/Vol] 2.6 g/dL Normal 1.4 - 4.0 gm/dL [facility] Chem Glucose [Mass/Vol] 85 mg/dL Normal 55 - 199 mg/dL [facility] Chem Iron [Mass/Vol] 58 ug/dL Normal 35 - 153 mcg/dL Rem[facility] Chem Iron binding capacity [Mass/Vol] 265 ug/dL Normal 250 - 400 mcg/dL Rem[facility] Chem Iron saturation [Mass fraction] 22 % Normal 20 - 50 % Remisol Chem LDH 164 [iU]/d Normal 93 - 218 Int._Unit/L [facility] Chem Potassium [Moles/Vol] 3.3 mmol/L Low 3.5 - 5.3 mmol/L [facility] Chem Protein [Mass/Vol] 6.1 g/dL Normal 6.0 - 7.8 gm/dL [facility] Chem Sodium [Moles/Vol] 143 mmol/L Normal 135 - 145 mmol/L [facility] Chem Transferrin [Mass/Vol] 189 mg/dL Low 200 - 370 mg/dL [facility] Chem Urea nitrogen [Mass/Vol] 17 mg/dL Normal 5 - 21 mg/dL Rem[facility] Chem Urea nitrogen/Creatinine [Mass ratio] 28 mg/mg High 10 - 20 Remisol Chem Consent for Treatmenton 09-08 Consent for Treatment [id number] F Normal [facility] Ferritinon 10-07-2023 Ferritin [Mass/Vol] 97 ng/mL Normal 11-307 [facility] Comment on above: Performed By: #### 2 [id number] #### [facility] [address] [place] [address] HEMATOLOGYOrdered By: SYSTEM SYSTEM on 10-07-2023 Basophils/100 WBC (Bld) 0.4 % Normal 0.0 - 2.0 % [facility] Heme Basophils/Leukocytes Auto (Bld) [Pure # fraction] 0.0 E9/L Normal 0.0 - 0.2 E9/L [facility] Eosinophils (Bld) [#/Vol] 0.1 E9/L Normal 0.0 - 0.5 E9/L [facility]e Eosinophils/100 WBC (Bld) 4.4 % Normal 0.0 - 8.0 % [facility] Erythrocyte distribution width (RBC) [Ratio] 14.4 % High 10.9 - 14.2 % [facility] Hematocrit (Bld) [Volume fraction] 35.7 % Normal 34.0 - 46.0 % [facility] Hemoglobin (Bld) [Mass/Vol] 12.0 g/dL Normal 12.0 - 16.0 gm/dL [facility] Lymphocytes (Bld) [#/Vol] 1.3 E9/L Normal 1.0 - 4.0 E9/L [facility]e Lymphocytes/100 WBC (Bld) 40.4 % Normal 14.0 - 50.0 % [facility]e MCH (RBC) [Entitic mass] 31.6 pg Normal 27.0 - 34.0 pg [facility] Heme MCHC (RBC) [Mass/Vol] 33.7 g/dL Normal 31.4 - 36.0 gm/dL [facility]e MCV (RBC) [Entitic vol] 93.6 fL Normal 80.0 - 100.0 fL [facility] Monocytes (Bld) [#/Vol] 0.2 E9/L Normal 0.2 - 1.0 E9/L [facility]e Monocytes/100 WBC (Bld) 7.0 % Normal 4.0 - 14.0 % [facility] Neutrophils (Bld) [#/Vol] 1.5 E9/L Low 2.0 - 7.5 E9/L [facility] Neutrophils/100 WBC (Bld) 47.8 % Normal 36.0 - 75.0 % [facility] Platelet mean volume (Bld) [Entitic vol] 8.8 fL Normal 6.4 - 10.8 fL [facility] Platelets (Bld) [#/Vol] 131.0 E9/L Low 150. 0 - 500.0 E9/L [facility] RBC (Bld) [#/Vol] 3.8 E12/L Low 4.3 - 5.9 E12/L [facility] WBC corrected for nucl RBC Auto (Bld) [#/Vol] 3.2 E9/L Low 4.0 - 11.0 E9/L [facility] Vit B1on 07-13-2023 Thiamine (Bld) [Moles/Vol] 62.8 nmol/L Low 66.5-200.0 [facility] Comment on above: Result Comment: Ve rified by repeat analysis This test was developed and its performance characteristics determined by [facility]. It has not been cleared or approved by the Food and Drug Administration. Performed at: [address] [id number] MD Kemal Fay Performed By: #### 2 534116, 3384378, 69358655, 6447605, 649628808, 9595368, 6602298, 1628236, 9586577, 58279958 ####[facility] [address] [place] [address] CBC w/ Auto Diffon 4 Anisocytosis Ql (Bld) PRESENT Invalid Interpretation Code [facility] Comment on above: Performed By: #### 2 825639, 0051271, 53110237, 1356942, 952614724, 0620298, 3195971, 4669390, 5212088, 49063946 #### [facility] [address] [place] [address] RBC morphology finding Nom (Bld) SEE MORPHOLOGY Invalid Interpretation Code [facility] Comment on above: Performed By: #### 2 740089, 3399073, 99286138, 1833304, 032754428, 8802321, 3516614, 6320687, 2229014, 73043782 #### [facility] [address] [place] [address] Basophil Absolute 0.0 E9/L Normal 0.0-0.2 [facility] Comment on above: Performed By: #### 2 434413, 7409943, 84138404, 5118034, 424702705, 8288609, 6399380, 0592039, 1305463, 24625780 #### [facility] [address] [place] [address] Basophils/100 WBC (Bld) 0.8 % Normal 0.0-2.[address] [facility] Comment on above: Performed By: #### 2 831785, 4032223, 76938679, 7171942, 473955000, 6935063, 9226004, 0582779, 4402510, 25170853 #### [facility] [address] [place] [address] Eos Absolute 0.3 E9/L Normal 0.0-0.5 [facility] Comment on above: Performed By: #### 2 985577, 6553654, 07575894, 7183849, 656376877, 6813983, 2902873, 7832026, 7723717, 11704494 #### [facility] [address] [place] [address] Eosinophils/100 WBC (Bld) 8.7 % High 0.0-8.0 [facility] Comment on above: Performed By: #### 2 394852, 3510394, 36350754, 4739176, 499986745, 4978785, 1869789, 9739613, 4420206, 52478758 #### [facility] [address] [place] [address] Erythrocyte distribution width (RBC) [Ratio] 22.9 % High 10.9-14.2 [facility] Comment on above: Performed By: #### 2 847312, 4797450, 14726348, 0796648, 554229364, 9840730, 4023902, 5374663, 9480963, 92875913 #### [facility] [address] [place] [address] Hematocrit (Bld) [Volume fraction] 40.0 % Normal 34.0-46.0 [facility] Comment on above: Performed By: #### 2 816627, 4169718, 49610466, 8524071, 920713405, 8919955, 4074512, 3995865, 0421277, 36794985 #### [facility] [address] [place] [address] Hemoglobin (Bld) [Mass/Vol] 12.7 g/dL Normal 12.0-16.0 [facility] Comment on above: Performed By: #### 2 135448, 5166061, 71582636, 0943524, 892587007, 3722847, 0760399, 7379003, 8137932, 12156223 #### [facility] [address] [place] [address] Lymph Absolute 1.6 E9/L Normal 1.0-4.0 [facility] Comment on above: Performed By: #### 2 602280, 1078889, 79721272, 6459872, 903087864, 7838757, 9642900, 2840126, 7873616, 42166018 #### [facility] [address] [place] [address] Lymphocytes/100 WBC (Bld) 46.3 % Normal 14.0-50.0 [facility] Comment on above: Performed By: #### 2 269896, 7022932, 63029434, 7806252, 842801035, 2470813, 9791441, 3620167, 1827876, 44177294 #### [facility] [address] [place] [address] MCH (RBC) [Entitic mass] 28.1 pg Normal 27.0-34.0 [facility] Comment on above: Performed By: #### 2 259753, 9029747, 35607983, 7906813, 427165384, 4821102, 6987903, 2589841, 3436495, 35961361 #### [facility] [address] [place] [address] MCHC (RBC) [Mass/Vol] 32.0 g/dL Normal 31.4-36.0 [facility] Comment on above: Performed By: #### 2 977371, 7527788, 55316877, 2437014, 316455379, 7283205, 2630778, 5287830, 6101986, 57516529 #### [facility] [address] [place] [address] MCV (RBC) [Entitic vol] 87.8 fL Normal 80.0-100.[address] [facility] Comment on above: Performed By: #### 2 634938, 5740970, 97246300, 2891589, 898910256, 6910828, 6678466, 3831713, 3055462, 59857206 #### [facility] [address] [place] [address] [place] Absolute 0.2 E9/L Normal 0.2-1.0 [facility] Comment on above: Performed By: #### 2 480288, 1420368, 95004176, 3686216, 247834744, 5613001, 2088895, 6076508, 6161843, 56518634 #### [facility] [address] [place] [address] Monocytes/100 WBC (Bld) 5.7 % Normal 4.0-14.0 [facility] Comment on above: Performed By: #### 2 999200, 9872494, 58986273, 1259376, 705601370, 7207480, 3662722, 6993926, 6668630, 08463337 #### [facility] [address] [place] [address] Neutro Absolute 1.4 E9/L Low 2.0-7.5 [facility] Comment on above: Performed By: #### 2 975091, 4074380, 80966481, 6909557, 827152387, 3808079, 6483650, 9399749, 8631329, 29950410 #### [facility] [address] [place] [address] Neutro Auto 38.5 % Normal 36.0-75.0 [facility] Comment on above: Performed By: #### 2 039120, 3685236, 22437725, 9005751, 379728104, 3575646, 4541819, 8910666, 7823453, 04175606 #### [facility] [address] [place] [address] Platelet 122.0 E9/L Low 150.0-500.0 [facility] Comment on above: Performed By: #### 2 614926, 1224441, 32513217, 5782450, 709046004, 9382972, 3774628, 0919807, 7849071, 81246545 #### [facility] [address] [place] [address] Platelet mean volume (Bld) [Entitic vol] 9.1 fL Normal 6.4-10.8 [facility] Comment on above: Performed By: #### 2 814006, 9297826, 21338348, 0105818, 466983470, 2080482, 4819997, 5198310, 2189991, 03945472 #### [facility] [address] [place] [address] RBC 4.5 E12/L Normal 4.3-5.9 [facility] Comment on above: Performed By: #### 2 569722, 0780929, 50139136, 2714035, 286408142, 3464838, 3538346, 8904729, 3375234, 39781251 #### [facility] [address] [place] [address] WBC 3.5 E9/L Low 4.0-11.0 [facility] Comment on above: Performed By: #### 2 579253, 4781645, 53115371, 4731309, 446904805, 1883552, 7436087, 3863400, 2028481, 37759803 #### [facility] [address] [place] [address] CHEMISTRYOrdered By: SYSTEM SYSTEM on 07-05-2023 Albumin [Mass/Vol] 3.7 g/dL Normal 3.3 - 5.0 gm/dL Remisol Chem Albumin/Globulin [Mass ratio] 1.3 {ratio} Normal 1.1 - 2.2 Rem[facility] Chem Alk Phos 74 [iU]/d Normal 21 - 98 Int._Unit/L Remisol Chem ALT 62 [iU]/d High 6 - 46 Int._Unit/L Remisol Chem Anion gap [Moles/Vol] 10 mmol/L Normal 6 - 16 mEq/L Remisol Chem AST 80 [iU]/d High 5 - 43 Int._Unit/L Remisol Chem Bili Total 1.5 mg/dL High 0.0 - 1.1 mg/dL Rem[facility] Chem Calcium [Mass/Vol] 9.1 mg/dL Normal 8.9 - 11. 1 mg/dL Rem[facility] Chem Chloride [Moles/Vol] 110 mmol/L Normal 101 - 1 11 mmol/L [facility] Chem CO2 [Moles/Vol] 26 mmol/L Normal 21 - 31 mmol/L [facility] Chem Cobalamin (Vitamin B12) [Mass/Vol] 514 pg/mL Normal 50 - 1500 pg/mL Rem[facility] Chem Creatinine [Mass/Vol] 0.6 mg/dL Normal 0.5 - 1.3 mg/dL Remisol Chem eGFR 114 mL/min/1.73 m2 Normal >=59mL/mi n/ 1.73 m2 [facility] Chem Ferritin Lvl 209 ng/mL Normal 11 - 307 ng/mL [facility] Chem Folate Lvl 3.4 ng/mL Low >=6.7ng/mL [facility] Chem Globulin (S) [Mass/Vol] 2.8 g/dL Normal 1.4 - 4.0 gm/dL [facility] Chem Glucose [Mass/Vol] 79 mg/dL Normal 55 - 199 mg/dL Rem[facility] Chem Iron [Mass/Vol] 91 ug/dL Normal 35 - 153 mcg/dL Rem[facility] Chem Magnesium [Mass/Vol] 1.7 mg/dL Normal 1.3 - 2 .4 mg/dL Rem[facility] Chem Phosphate [Mass/Vol] 2.7 mg/dL Normal 1.9 - 4 .6 mg/dL Rem[facility] Chem Potassium [Moles/Vol] 3.4 mmol/L Low 3.5 - 5.3 mmol/L Remisol Chem Protein [Mass/Vol] 6.5 g/dL Normal 6.0 - 7.8 gm/dL Rem[facility] Chem Sodium [Moles/Vol] 143 mmol/L Normal 135 - 145 mmol/L Rem[facility] Chem Urea nitrogen [Mass/Vol] 24 mg/dL High 5 - 21 mg/dL Rem[facility] Chem Urea nitrogen/Creatinine [Mass ratio] 40 mg/mg High 10 - 20 Remisol Chem Vitamin D 25 Hydroxy 37.1 ng/mL Normal 30.0 - 100.0 ng/mL Remisol Chem CMPon 07-05-2023 Albumin [Mass/Vol] 3.7 g/dL Normal 3.3-5.0 [facility] Comment on above: Performed By: #### 2 784265, 2742321, 41233741, 9490564, 715894411, 2055609, 1439500, 3533219, 9944399, 83241989 ####[facility] [address] [place] [address] Albumin/Globulin [Mass ratio] 1.3 {ratio} Normal 1.1-2.2 [facility] Comment on above: Performed By: #### 2 783714, 5537596, 10293229, 4843764, 531771007, 6665296, 0120656, 6158226, 2194636, 90939231 ####[address] [place] [address] Alk Phos 74 Int._Unit/L Normal 21-98 [facility] Comment on above: Performed By: #### 2 023784, 3385112, 61000924, 0199598, 714808229, 0227812, 7732367, 6737744, 2367348, 36925394 ####[address] [place] [address] ALT 62 Int._Unit/L High 6-46 [facility] Comment on above: Performed By: #### 2 362583, 4310909, 41046000, 2072088, 040046587, 4976575, 6725001, 0886052, 8756560, 76720017 ####[address] [place] [address] Anion gap [Moles/Vol] 10 mmol/L Normal 6-16 [facility] Comment on above: Performed By: #### 2 756137, 2903697, 26047634, 4799131, 841482648, 3352822, 8315359, 4120484, 7039434, 32737443 ####[facility] [address] [place] [address] AST 80 Int._Unit/L High 5-43 [facility] Comment on above: Performed By: #### 2 986337, 1149718, 92976562, 3322895, 211524631, 8739874, 8564449, 6063797, 9453160, 01543850 ####[facility] [address] [place] [address] Bili Total 1.5 mg/dL High 0.0-1.1 [facility] Comment on above: Performed By: #### 2 249599, 9146434, 48837554, 5858958, 572507012, 6845884, 9214246, 0782438, 2504320, 44900107 ####[facility] [address] [place] [address] BUN/Creat Ratio 40 No Units High 10-20 [facility] Comment on above: Performed By: #### 2 707146, 3199138, 77920129, 8975510, 561070714, 7979918, 5707155, 4451484, 6348736, 43374903 ####[facility] [address] [place] [address] Calcium [Mass/Vol] 9.1 mg/dL Normal 8.9-11.1 [facility] Comment on above: Performed By: #### 2 164615, 2980835, 56678230, 2206510, 753936137, 3307315, 5368587, 4625282, 9533969, 01025538 ####[facility] [address] [place] [address] Chloride [Moles/Vol] 110 mmol/L Normal 101-111 [facility] Comment on above: Performed By: #### 2 886914, 4593679, 53028899, 5766831, 610298128, 8522255, 7475378, 3002511, 0446918, 50307582 ####[facility] [address] [place] [address] CO2 [Moles/Vol] 26 mmol/L Normal 21-31 [facility] Comment on above: Performed By: #### 2 473046, 9613788, 06703498, 5006426, 645729060, 0553693, 9980746, 2760906, 0488200, 92911546 ####[facility] [address] [place] [address] Creatinine [Mass/Vol] 0.6 mg/dL Normal 0.5-1.3 [facility] Comment on above: Performed By: #### 2 377821, 2569441, 00904620, 7723124, 369668366, 5740643, 7436564, 4002827, 1234013, 15390863 ####[facility] [address] [place] [address] Globulin (S) [Mass/Vol] 2.8 g/dL Normal 1.4-4.0 [facility] Comment on above: Performed By: #### 2 185406, 3478673, 58392599, 9892346, 320289692, 7628052, 3746104, 2960090, 8580155, 30679125 ####[facility] [address] [place] [address] Glucose [Mass/Vol] 79 mg/dL Normal 55-199 [facility] Comment on above: Performed By: #### 2 627603, 7670816, 09073506, 4852576, 126425760, 9043808, 2663231, 0760991, 3736245, 01664808 ####[facility] [address] [place] [address] Potassium [Moles/Vol] 3.4 mmol/L Low 3.5-5.3 [facility] Comment on above: Performed By: #### 2 985183, 5758310, 91176812, 5611327, 212856122, 2857570, 7213151, 8444826, 3067800, 48412048 ####[facility] [address] [place] [address] Protein [Mass/Vol] 6.5 g/dL Normal 6.0-7.8 [facility] Comment on above: Performed By: #### 2 022199, 2832931, 47446217, 3879959, 674436788, 6290157, 2174021, 9885260, 5579851, 53001725 ####[facility] [address] [place] [address] Sodium [Moles/Vol] 143 mmol/L Normal 135-145 [facility] Comment on above: Performed By: #### 2 023966, 6692508, 89247989, 8409677, 047455614, 0064323, 2100098, 7454627, 0588985, 50056016 ####[facility] [address] [place] [address] Urea nitrogen [Mass/Vol] 24 mg/dL High 5-21 [facility] Comment on above: Performed By: #### 2 072123, 7335388, 40587964, 4162681, 556104752, 2687589, 8725846, 0343258, 1465666, 90939528 ####[facility] [address] [place] [address] Consent for Treatmenton 06-10 Consent for Treatment [id number] F Normal [facility] Ferritinon 07-05-2023 Ferritin Lvl 209 ng/mL Normal 11-307 [facility] Comment on above: Performed By: #### 2 503471, 1497479, 14071333, 8835072, 908231605, 7209431, 0889711, 4319964, 8644963, 77686833 #### [facility] [address] [place] [address] Folateon 07-05-2023 Folate Lvl 3.4 ng/mL Low >=6.7 [facility] Comment on above: Performed By: #### 2 089190, 6612203, 48612569, 2129626, 286182502, 4844118, 4328386, 2278135, 2236943, 02391995 ####[facility] [address] [place] [address] HEMATOLOGYOrdered By: Ariel Angeles on 07-05-2023 Anisocytosis Ql (Bld) PRESENT Invalid Interpretation Code Remisol Heme RBC morphology finding Nom (Bld) SEE MORPHOLOGY Invalid Interpretation Code Remisol Heme HEMATOLOGYOrdered By: SYSTEM SYSTEM on 07-05-2023 Basophil Absolute 0.0 E9/L Normal 0.0 - 0.2 E9/L [facility] Basophils/100 WBC (Bld) 0.8 % Normal 0.0 - 2.0 % [facility] Eos Absolute 0.3 E9/L Normal 0.0 - 0.5 E9/L [facility] Eosinophils/100 WBC (Bld) 8.7 % High 0.0 - 8.0 % [facility] Erythrocyte distribution width (RBC) [Ratio] 22.9 % High 10.9 - 14.2 % [facility] Hematocrit (Bld) [Volume fraction] 40.0 % Normal 34.0 - 46.0 % [facility] Hemoglobin (Bld) [Mass/Vol] 12.7 g/dL Normal 12.0 - 16.0 gm/dL [facility] Lymph Absolute 1.6 E9/L Normal 1.0 - 4.0 E9/L [facility] Lymphocytes/100 WBC (Bld) 46.3 % Normal 14.0 - 50.0 % [facility] MCH (RBC) [Entitic mass] 28.1 pg Normal 27.0 - 34.0 pg [facility]e MCHC (RBC) [Mass/Vol] 32.0 g/dL Normal 31.4 - 36.0 gm/dL [facility] MCV (RBC) [Entitic vol] 87.8 fL Normal 80.0 - 100.0 fL Rem[facility] Heme [place] Absolute 0.2 E9/L Normal 0.2 - 1.0 E9/L [facility] Monocytes/100 WBC (Bld) 5.7 % Normal 4.0 - 14.0 % [facility] Neutro Absolute 1.4 E9/L Low 2.0 - 7.5 E9/L [facility] Neutro Auto 38.5 % Normal 36.0 - 75.0 % [facility] Platelet 122.0 E9/L Low 150.0 - 500.0 E9/L [facility] Platelet mean volume (Bld) [Entitic vol] 9.1 fL Normal 6.4 - 10.8 fL [facility] RBC 4.5 E12/L Normal 4.3 - 5.9 E12/L [facility] WBC 3.5 E9/L Low 4.0 - 11.0 E9/L [facility] Ironon 07-05-2023 Iron 91 microgram/dL Normal 35-153 [facility] Comment on above: Performed By: #### 2 223556, 1027876, 52617381, 6037732, 109419837, 5301118, 0678349, 2625475, 5792963, 79061711 ####[facility] [address] [place] [address] Magnesiumon 07-05-2023 Magnesium [Mass/Vol] 1.7 mg/dL Normal 1.3-2.4 [facility] Comment on above: Performed By: #### 2 049033, 4125587, 82525085, 2838360, 229819377, 6170535, 1034399, 7680965, 1323891, 26408783 ####[facility] [address] [place] [address] Phosphoruson 07-05-2023 Phosphate [Mass/Vol] 2.7 mg/dL Normal 1.9-4.6 [facility] Comment on above: Performed By: #### 2 756882, 1186099, 35366645, 0177940, 417794161, 3459003, 7565464, 9119714, 8892331, 90429852 ####[facility] [address] [place] [address] Physician Orderon 07-05-2023 Physician Order [id number] F Normal [facility] Vit B12on 07-05-2023 Cobalamin (Vitamin B12) [Mass/Vol] 514 pg/mL Normal 50-1500 [facility] Comment on above: Performed By: #### 2 753351 ####[facility] [address] [place] [address] Vitamin D 25 Hydroxyon 07-05 Vitamin D 25 Hydroxy 37.1 ng/mL Normal 30.0-100.0 [facility] Comment on above: Performed By: #### 2 274063, 9139369, 93427195, 1387124, 897740552, 2391691, 2907716, 7003257, 8824928, 26047881 ####[facility] [address] [place] [address] eGFRon 07-05-2023 eGFR 114 mL/min/1.73 m2 Normal >=59 [facility] Comment on above: Order Comment: Order added by Discern Expert. Performed By: #### 2 393651, 9625136, 56043076, 7426098, 402271035, 0343025, 9172494, 2482122, 8440716, 50038106 ####[facility] [address] [place] [address] ONC - Otheron 06-28-2023 ONC - Other Patient did not show for today's supportive oncology visit. Staff will attempt to reschedule. [facility] Patient History Officeon Patient History Office [id number] F [facility] ONC - Otheron 06-09-2023 ONC - Other Phone call to follow up on insomnia and response/tolerability of ramelteon. She did just pick it up yesterday, took it last night without benefit - sleep pattern pretty much the same. Explained that we were running out of pharmacotherapies that did not have addictive potential. She is very concerned about this and agreed to try it again, at least tonight. Will re-evaluate in a few days. Total 4 minutes telephone contact in follow-up of 05/31/23 visit. [facility] Consent for Treatmenton 05-11 Consent for Treatment [id number]#[id number] F [facility] Physician Orderon 06-07-2023 Physician Order [id number] FF Normal [facility] MA Mamm Screen w/CAD if perf and 3D Bilon 06-06-2023 MA Mamm Screen w/CAD if perf and 3D [place] Exam Date/Time: 06/02/2023 15:04 EST Reason for Exam: patient request;Screening Report IMPRESSION: BIRADS 1 NEGATIVE, NORMAL INTERVAL FOLLOW-UP. EXAMINATION: MA Mamm Screen w/CAD if perf and 3D [place] CLINICAL HISTORY: Screening, patient request COMPARISON: None. Baseline. RESULT: Digital mammography and 3D tomosynthesis of bilateral breasts was performed. Scattered areas of fibroglandular density. There is no suspicious mass, asymmetry, architectural distortion, or calcification. Vascular calcifications: Absent. CAD analysis was performed and used in the interpretation. Dense Breast: No Follow-up: 12 MONTH RECALL. Board Certified Radiologists. Accredited by the ACR and FDA. MAMMOGRAPHY IS VERY IMPORTANT TO YOUR HEALTH. THE [place] GUIDELINES RECOMMEND THAT WOMEN 40 YEARS OF AGE AND OLDER SHOULD HAVE A MAMMOGRAM EVERY YEAR. A REMINDER LETTER WILL BE SENT AT THE APPROPRIATE TIME. THIS FACILITY UTILIZES A REMINDER SYSTEM TO ENSURE ALL PATIENTS RECEIVE REMINDER NOTIFICATIONS AT THE APPROPRIATE TIME BASED ON THE RECOMMENDATIONS OF THIS EXAM. THIS INCLUDES REMINDERS FOR ROUTINE SCREENING MAMMOGRAMS, DIAGNOSTIC MAMMOGRAMS IN WHICH THE PATIENT IS ASKED TO RETURN FOR ADDITIONAL VIEWS, OR OTHER BREAST IMAGING INTERVENTIONS WHEN APPROPRIATE. THE PATIENT WILL BE PLACED IN THE APPROPRIATE REMINDER SYSTEM INCLUDING A REMINDER AT THE APPROPRIATE TIME FOR ANY PENDING ADDITIONAL VIEWS. Report Ordering Provider: ARISTIDES BORJA FINAL REPORT Dictated: 06/06/2023 10:23 am Divine Sales MD Signed (Electronic Signature): 06/06/2023 10:23 am Signed by: Divine Sales MD Transcribed by: EDENILSON Technologist: [facility] Assessment: BI-RADS Category 1-Negative Recommendation: Normal interval follow-up [facility] Consent for Treatmenton 05-10 Consent for Treatment [id number] F Normal [facility] ONC - Otheron 06-02-2023 ONC - Other Patient: LISA LIRIANO Age: 42 years Sex: Female : 1980 Associated Diagnoses: None Author: HUONG ARNETT, ARISTIDES Galvin Basic Information Visit type, purpose, and participants: Ms. Delfin Heart presents with her niece Nancy for supportive oncology follow-up visit. PCP: Lyndsay Barahona CNP Summary of oncologic history: 42-year-old woman with severe obesity, depression, anxiety, PTSD, hypothyroidism who initially developed right hip pain in late 2019, had a number of evaluations at different facilities with diagnosis of arthritis until she experienced acute on chronic pain in 04/2021 at which time imaging revealed a lytic lesion of the right ischium and inferior pubic ramus with pathologic pelvic fracture. PET scan showed associated hypermetabolic soft tissue mass and right external iliac node. 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 Treatment was complicated by neutropenic fever and DVT, severe fatigue and weakness. Follow-up PET scan showed no definite hypermetabolic activity, but she has had ongoing hip pain and extended penitentiary stays following hospitalizations for severe Covid-19 and panniculitis. She has been referred to orthopedic oncology surgeon for operative management of the pelvic fracture but was not a candidate due to morbid obesity for which she underwent sleeve gastrectomy on 10/25/22. Unfortunately, she has had multiple complications including 2 admissions for sepsis related to PICC line (December and January 2023) which was removed. Plans are now for reversal with bypass procedure (originally planned for late January 2023). She remains in complete remission from her lymphoma. Chief complaint/reason for referral: pain, support History of Present Illness Interval history: Last visit 04/20/23. Started IV iron on 05/24/23, receiving 2nd dose today. Per patient, she successfully underwent uncomplicated gastric bypass surgery at [facility] on 05/17/23 - no records available. 05/31/23: She is doing well overall. Followed up on gastric bypass surgery, nausea, pain, insomnia, fatigue, request for screening mammogram. States she is off all medications except apixaban and as-needed ondansetron. Bariatric surgery: She is recovering quite well; had minimal post-operative pain which has resolved. Still pretty fatigued and remains on clear liquid diet. She is losing weight but not as quickly as she hoped; down 8 kg since 04/07/23 and 21 kg since 01/04/23. Sees bariatric surgeon on 06/02 and hopes to be cleared to return to work. Nausea: This is greatly improved since reversal of sleeve gastrectomy during the bypass surgery and she's not having dysphagia, odynophagia or heartburn any more, though she does have some trouble taking a large gulp of fluid. Unfortunately, she has associated a lot of foods with nausea, particularly warm foods and those with stronger odors. 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 She said this occurs even if she takes anti-emetics so she stopped taking them regularly - still takes ondansetron occasionally. She has no nausea unless she's around food. 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 She does still like chicken, tuna, cottage cheese and hopes she'll be able to advance her diet soon. Pain: Continues to have moderate to severe hip pain - same location as previously. Sitting aggravates it a lot, also walking too far - limited to 100-200 yards at a time. She managed at work because she could sit down frequently. She is not taking any medication for pain (given [place] postoperatively but only took it once). Insomnia: At last visit, started on trazodone - ineffective up to a dose of 100 mg. Switched to doxepin on 04/25/23, reports no benefit with doses up to 50 mg. She has taken melatonin without benefit in the past. She has a lot of initial insomnia, some middle insomnia, no nightmares, no naps. She does get up out of bed when she can't sleep after half hour or so but she spends most of her time in bed scrolling on her phone, does not use a blue light filter. Fatigue: This has been worse since the surgery. No problems with activities of daily living and can still do light housework, dishes, etc. She's hoping that the iron infusions will be helpful. Said her bariatric surgeon is monitoring thyroid and vitamin/mineral levels. Request for screening mammogram: She was scheduled but had to cancel due to surgery appointment, will be rescheduling. She gave additional history that multiple maternal aunts have had breast cancer but not sure at what ages. Mother and grandmother also had breast cancer but not until ages 68-70. 04/20/23: Followed up on nausea, pain, odynophagia, anxiety/coping, request for screening mammogram; no new issues. Her bypass surgery is scheduled for 05/17/23. Nausea: At las (more content not included)... [facility] Consent for Treatmenton 05-10 Consent for Treatment [id number] FF [facility] Consent for Treatment [id number]#1.00TIF F [facility] Physician Orderon 05-31-2023 Physician Order [id number]#1.00TI FF [facility] Consent for Treatmenton 05-09 Consent for Treatment [id number]#1.00TIF F [facility] Consent for Treatment [id number]#1.00TIF F [facility] Pathology Noteon 05-24-2023 Pathology Note [id number]#1.00TIF F [facility] Physician Orderon 05-24-2023 Physician Order [id number]#1.00TIFF [facility] Patient History Officeon Patient History Office [id number]#1.00TI FF [facility] Patient History Officeon Patient History Office [id number]#1.00TI FF [facility] Insurance Correspondenceon 07-06-2022 Insurance Correspondence [id number]#1.00TI FF Normal [facility] Physician Orderon 05-05-2023 Physician Order [id number]#1.00TI FF Normal [facility] ONC - Otheron 04-25-2023 ONC - Other Patient: LISA LIRIANO MRN: Age: 42 years Sex: Female : 1980 Associated Diagnoses: None Author: ARISTIDES BORJA MD Phone call to patient to follow up on insomnia and response/tolerance of trazodone. She has been taking 2 tablets (100 mg) without adverse effects but also without benefit. She is OK with trying a different medication as long as it is not mind-altering or addictive. Discussed use of low-dose doxepin for sleep, including potential side effects of sedation and dry mouth. Will start with 25 mg, increase to 50 mg prn. She denied any other concerns. Oncologist is setting her up for IV iron. Total 5 minutes telephone contact in follow-up of 04/20/23 visit. Normal [facility] Vit B1on 04-24-2023 Thiamine (Bld) [Moles/Vol] 64.2 nmol/L Low 66.5-200.0 [facility] Comment on above: Result Comment: Ve rified by repeat analysis This test was developed and its performance characteristics determined by [facility]. It has not been cleared or approved by the Food and Drug Administration. Performed at: [address] [id number] MD Kemal Fay Performed By: #### 2 280541, [id number], 4789353, 85341919, 10418553, 0333399, 1203646, 9691131, 1132582, 06948881, 9960411, 8543373, 8185295 ####[facility] [address] [place] [address] ONC - Otheron 04-22-2023 ONC - Other Patient: LISA LIRIANO MRN: Age: 42 years Sex: Female : 1980 Associated Diagnoses: None Author: HUONG ARNETT, ARISTIDES Galvin Basic Information Visit type, purpose, and participants: Ms. Delfin Heart presents with her niece Nancy and another young niece for supportive oncology follow-up visit. PCP: Lyndsay Barahona CNP Summary of oncologic history: 42-year-old woman with severe obesity, depression, anxiety, PTSD, hypothyroidism who initially developed right hip pain in late 2019, had a number of evaluations at different facilities with diagnosis of arthritis until she experienced acute on chronic pain in 04/2021 at which time imaging revealed a lytic lesion of the right ischium and inferior pubic ramus with pathologic pelvic fracture. PET scan showed associated hypermetabolic soft tissue mass and right external iliac node. 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 Treatment was complicated by neutropenic fever and DVT, severe fatigue and weakness. Follow-up PET scan showed no definite hypermetabolic activity, but she has had ongoing hip pain and extended penitentiary stays following hospitalizations for severe Covid-19 and panniculitis. She has been referred to orthopedic oncology surgeon for operative management of the pelvic fracture but was not a candidate due to morbid obesity for which she underwent sleeve gastrectomy on 10/25/22. Unfortunately, she has had multiple complications, and plans are now for reversal with bypass procedure (originally planned for late January 2023). She remains in complete remission from her lymphoma. Chief complaint/reason for referral: pain, support History of Present Illness Interval history: Last visit 03/16, canceled appointment for 03/30. Records from [facility] received - admitted 01/11-01/19 with septic shock due to K pneumoniae bacteremia (previously admitted in December with S epidermidis bacteremia); infectious disease consulted, PICC exchanged, treated with IV levofloxacin and discharged to [facility] where per her report at last visit, PICC was discontinued. She saw oncologist on 04/07 - stable, no change to plan. 04/20/23: Followed up on nausea, pain, odynophagia, anxiety/coping, request for screening mammogram; no new issues. Her bypass surgery is scheduled for 05/17/23. Nausea: At last visit, she was advised to take ondansetron routinely, and routine prochlorperazine was added. The nausea persists and she has no appetite at all, but she is able to eat a little more and has not vomited. 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 She also gets nauseated if she eats much at a time, so she focuses on liquids and small amounts of cottage cheese, cheese, refried beans, and protein bowl. She sees the slicing machine tender frequently. She will need to be on an all-liquid diet for 2 weeks prior to surgery. Pain: Pain in right hip persists but has improved overall, which she attributes to weight loss - this has also enabled her to be more mobile. The pain is worse with sitting but also occurs if she walks too far. Previously she required a wheelchair at all times when outside the home, but she is now able to walk from the parking lot into the hospital, and today even walked the longer distance between the lab and the clinic. She does not take any medication for pain or want to do so, citing concerns about addiction and tolerance. Odynophagia: This persists unchanged; at last visit, was prescribed magic mouthwash but never picked it up (it is self-pay, about $20). She isn't using the sucralfate because it didn't help. Since last visit she had an EGD that by her report showed reflux esophagitis. She is taking a medication for reflux. Anxiety/coping: She's a little nervous about the surgery, but is telling herself that she has an excellent surgical team and a good hospital, and that she expects to do well. She is having more insomnia, sleeps only 3-4 hours a night. Denies being awakened by pain or nightmares, denies caffeine and alcohol. Has not tried any kind of medication for sleep. Request for screening mammogram: This was ordered at last visit 03/16 but she said she was never contacted to schedule it. 03/16/23: Followed up on nausea, pain, anxiety/coping; also addressed odynophagia and request for screening mammogram. Nausea: She continues to have nausea and severe heartburn whenever she eats. She can eat only a few bites of soft foods at a time. She is using ondansetron QID, no other anti-emetics. Vomiting is fairly infrequent since she adjusted her diet - follows closely with slicing machine tender in bariatric clinic. Reports she's lost weight quickly since stopping the TPN; e.g., 7# in a little over a week. She cannot consume protein shakes or supplements because they cause nausea, so focuses on cottage cheese, tuna or shredded chicken, milk - does not puree food but chews the me (more content not included)... Normal [facility] Insurance Correspondenceon 1 06-22-2022 Insurance Correspondence [id number]#1.00T IFF Normal [facility] Consent for Treatmenton 04-08 Consent for Treatment [id number]#1.00TIF F Normal [facility] Auto DiffOrdered By: SYSTEM SYSTEM on 04-18-2023 Basophils/100 WBC (Bld) 0.5 % Normal 0.0-2.0 [facility] Comment on above: Order Comment: Order Added by Discern Expert. Performed By: #### 2 211475, [id number], 4333762, 79638791, 96666763, 7530559, 0860880, 4248669, 3045492, 67464833, 2057542, 5234602, 6887513 ####[facility] [address] [place] [address] Basophils/Leukocytes Auto (Bld) [Pure # fraction] 0.0 E9/L Normal 0.0-0.2 [facility] Comment on above: Order Comment: Order Added by Discern Expert. Performed By: #### 2 404423, [id number], 2946274, 88804101, 78530482, 1624262, 6858072, 1024220, 7355000, 44810045, 9543912, 4936539, 0136409 ####[facility] [address] [place] [address] Eosinophils/100 WBC (Bld) 6.7 % Normal 0.0-8.0 [facility] Comment on above: Order Comment: Order Added by Discern Expert. Performed By: #### 2 983646, 778329966, 8289618, 92042659, 18022438, 1301938, 1903575, 5888168, 1679995, 50565976, 9969338, 6559761, 2244198 ####[facility] [address] [place] [address] Eosinophils/Leukocytes Auto (Bld) [Pure # fraction] 0.2 E9/L Normal 0.0-0.5 [facility] Comment on above: Order Comment: Order Added by Discern Expert. Performed By: #### 2 434642, 058663566, 7068151, 91822100, 57498809, 8904651, 9798868, 4028082, 4619497, 81766179, 8083152, 7167628, 2037633 ####[place] [address] [address] Lymphocytes/100 WBC (Bld) 49.6 % Normal 14.0-50.0 [facility] Comment on above: Order Comment: Order Added by Discern Expert. Performed By: #### 2 212244, 174560773, 2052580, 16569677, 76470731, 3481456, 1887067, 7499810, 0451509, 49559409, 1731017, 0769229, 2253965 ####[address] [address] Lymphocytes/Leukocytes Auto (Bld) [Pure # fraction] 1.7 E9/L Normal 1.0-4.0 [facility] Comment on above: Order Comment: Order Added by Discern Expert. Performed By: #### 2 256879, 194598592, 5764103, 73178820, 82030125, 1079323, 7423974, 9064929, 2265663, 83840128, 2517365, 8986128, 2691882 ####[place] [address] [address] Monocytes/100 WBC (Bld) 6.6 % Normal 4.0-14.0 [facility] Comment on above: Order Comment: Order Added by Discern Expert. Performed By: #### 2 949051, 380449301, 7115874, 95732574, 56983995, 8146495, 9593837, 7139545, 5246194, 66080262, 2362061, 8622824, 9172938 ####[place] [address] [place] [address] Monocytes/Leukocytes Auto (Bld) [Pure # fraction] 0.2 E9/L Normal 0.2-1.0 [facility] Comment on above: Order Comment: Order Added by Discern Expert. Performed By: #### 2 563484, 357168782, 3794298, 73996673, 74316896, 6973857, 2251094, 9088468, 9745885, 39470161, 6344541, 0424510, 4336869 ####[place] [address] [address] Neutrophils/100 WBC (Bld) 36.6 % Normal 36.0-75.0 [facility] Comment on above: Order Comment: Order Added by Discern Expert. Performed By: #### 2 250497, 227923855, 2714818, 89199753, 32062360, 5597935, 0105692, 9605878, 6380648, 58641423, 2410916, 4112838, 3975027 ####[address] [address] Neutrophils/Leukocytes Auto (Bld) [Pure # fraction] 1.2 E9/L Low 2.0-7.5 [facility] Comment on above: Order Comment: Order Added by Discern Expert. Performed By: #### 2 950434, 519982374, 6099639, 06250749, 41929483, 5233500, 8119723, 0835197, 3311233, 86791558, 4922635, 1207653, 7486537 ####[place] [address] [address] CBC w/ Auto DiffOrdered By: Radha Angeles on 04-18-2023 Erythrocyte distribution width (RBC) [Ratio] 15.6 % High 10.9-14.2 [facility] Comment on above: Performed By: #### 2 734551, 378574068, 6987519, 70492534, 74545445, 2504547, 1249369, 3171303, 2500034, 66157068, 9854706, 4492163, 1973873 ####[facility] [address] [place] [address] Hematocrit (Bld) [Volume fraction] 36.1 % Normal 34.0-46.0 [facility] Comment on above: Performed By: #### 2 885042, 824362716, 7668377, 16799826, 85140913, 0420819, 7286071, 2972426, 3003585, 72147560, 8196086, 5101096, 5237044 ####[place] [address] Hemoglobin (Bld) [Mass/Vol] 11.8 g/dL Low 12.0-16.0 [facility] Comment on above: Performed By: #### 2 455613, 452956993, 8397646, 33059518, 69052800, 9160592, 7175422, 1505124, 9009806, 69614506, 8419953, 8476044, 0000676 ####[place] [address] [place] [address] MCH (RBC) [Entitic mass] 26.5 pg Low 27.0-34.0 [facility] Comment on above: Performed By: #### 2 792736, 523450693, 7502554, 84282300, 94407067, 7345541, 0786288, 0330361, 0067421, 81464412, 5544202, 6907195, 0937161 ####[place] [address] [place] [address] MCHC (RBC) [Mass/Vol] 32.7 g/dL Normal 31.4-36.0 [facility] Comment on above: Performed By: #### 2 209090, 252135439, 2858640, 86796857, 30933760, 6267293, 1432294, 4336080, 7335842, 75179627, 6115242, 1255613, 3738937 ####[facility] [address] [place] [address] MCV (RBC) [Entitic vol] 81.0 fL Normal 80.0-100.0 F [facility] Comment on above: Performed By: #### 2 933698, 514934335, 8111940, 92974190, 97939507, 9417390, 1335435, 0617839, 2706711, 16887130, 2431714, 1663277, 7935139 ####[place] [address] [address] Platelet mean volume (Bld) [Entitic vol] 8.5 fL Normal 6.4-10.8 [facility] Comment on above: Performed By: #### 2 752128, 136481124, 8826600, 18884595, 92439426, 6723929, 8092336, 5678285, 6475159, 75890269, 3223006, 7096066, 8454100 ####[place] [address] [address] Platelets (Bld) [#/Vol] 149.0 E9/L Low 150.0-500.0 [facility] Comment on above: Performed By: #### 2 880026, 985102420, 5854377, 38425788, 58630105, 8893943, 6113237, 9007733, 0076638, 66087447, 6104131, 7966963, 9299517 ####[place] [address] [address] RBC (Bld) [#/Vol] 4.5 E12/L Normal 4.3-5.9 [facility] Comment on above: Performed By: #### 2 438233, 796427766, 1586662, 17360772, 29016942, 9954121, 3336676, 3607846, 8429027, 68826707, 9714999, 5789946, 6439671 ####[facility] [address] [place] [address] WBC corrected for nucl RBC Auto (Bld) [#/Vol] 3.4 E9/L Low 4.0-11.0 [facility] Comment on above: Performed By: #### 2 166340, 924482104, 7541793, 03719487, 47999665, 9893192, 9545405, 0209828, 0192649, 56596319, 4480631, 9140807, 9920033 ####[facility] [address] [place] [address] CHEMISTRYOrdered By: SYSTEM SYSTEM on 04-18-2023 Albumin/Globulin [Mass ratio] 0.9 {ratio} Low 1.1 - 2.2 [facility] Remisol ALP [Catalytic activity/Vol] 64 [iU]/d Normal 21 - 98 Int._Unit/L [facility] Remisol ALT No additional P-5'-P [Catalytic activity/Vol] 23 [iU]/d Normal 6 - 46 Int._Unit/L [facility] Remisol AST [Catalytic activity/Vol] 40 [iU]/d Normal 5 - 43 Int._Unit/L [facility] Remisol Iron [Mass/Vol] 37 ug/dL Normal 35 - 153 mcg/dL [facility] Remisol Iron binding capacity [Mass/Vol] 374 ug/dL Normal 250 - 400 mcg/dL [facility] Remisol Phosphate [Mass/Vol] 2.5 mg/dL Normal 1.9 - 4 .6 mg/dL [facility] Rem[facility] Urea nitrogen/Creatinine [Mass ratio] 25 mg/mg High 10 - 20 [facility] Remisol CMPOrdered By: SYSTEM SYSTEM on 04-18-2023 Albumin [Mass/Vol] 3.3 g/dL Normal 3.3-5.0 [facility] Comment on above: Performed By: #### 2 090180, 921218986, 4127682, 06755424, 37359656, 1517676, 9877865, 9403813, 3496942, 26907500, 8105315, 6789532, 9977027 ####[facility] [address] [place] [address] Anion gap [Moles/Vol] 13 mmol/L Normal 6-16 [facility] Comment on above: Performed By: #### 2 871567, 001907196, 1972966, 56331436, 38937748, 6053543, 2783871, 5175875, 3201335, 35501847, 4455569, 6868644, 5736949 ####[place] [address] [place] [address] Bilirubin [Mass/Vol] 0.9 mg/dL Normal 0.0-1.1 [facility] Comment on above: Performed By: #### 2 193990, 634832799, 0783717, 12213500, 76255640, 5897171, 8185120, 9666324, 4503796, 51913684, 8401078, 6718318, 6398639 ####[place] [address] [place] [address] Calcium [Mass/Vol] 9.0 mg/dL Normal 8.9-11.1 [facility] Remisol Comment on above: Performed By: #### 2 092824, 517319605, 0591058, 66241607, 28081687, 1933595, 8289350, 2298670, 5352641, 85111664, 1746333, 0163735, 4676578 ####[facility] [address] [place] [address] Chloride [Moles/Vol] 106 mmol/L Normal 101-111 [facility] Comment on above: Performed By: #### 2 580903, 313250963, 5515291, 49814046, 94345497, 6023311, 1378292, 1634486, 8925471, 27256480, 5334334, 0225356, 6405990 ####[facility] Center [address] [place] [address] CO2 [Moles/Vol] 26 mmol/L Normal 21-31 [facility] Remisol Comment on above: Performed By: #### 2 695308, 097782724, 3262216, 14228047, 14205191, 9174756, 4968100, 7312139, 6648884, 40542200, 1159451, 5192773, 1621004 ####[facility] [address] [place] [address] Creatinine [Mass/Vol] 0.6 mg/dL Normal 0.5-1.3 FT C Remisol Comment on above: Performed By: #### 2 243123, 772537040, 6699045, 08121952, 69170455, 4418444, 1998432, 3974123, 1110771, 42633173, 5543302, 1099199, 6737920 ####[facility] [address] [place] [address] Globulin (S) [Mass/Vol] 3.6 g/dL Normal 1.4-4.0 [facility] Remisol Comment on above: Performed By: #### 2 325006, 438128425, 7181033, 10258073, 15750542, 8664515, 4885787, 6029696, 5774969, 99548597, 0221624, 4940887, 5441767 ####[facility] [address] [place] [address] Glucose [Mass/Vol] 89 mg/dL Normal 55-199 [facility] Remisol Comment on above: Interpretive Data: I f this glucose result represents a fasting glucose, interpretation should refer to the following reference range: 55-99 mg/dL Result Comment: If t his glucose result represents a fasting glucose, interpretation should refer to the following reference range: 55-99 mg/dL Performed By: #### 2 171001, 934814502, 7471767, 07387020, 69592606, 9948023, 9716296, 1476067, 1594524, 24358227, 3673335, 6634517, 5367588 ####[facility] [address] [place] [address] Potassium [Moles/Vol] 3.5 mmol/L Normal 3.5-5.3 FTM C Remisol Comment on above: Performed By: #### 2 663595, 859118287, 8605368, 89563844, 12525039, 3975314, 8398437, 5876879, 1309448, 70254109, 3181414, 7830945, 4885215 ####[facility] [address] [place] [address] Protein [Mass/Vol] 6.9 g/dL Normal 6.0-7.8 [facility] Remisol Comment on above: Performed By: #### 2 708307, 247934997, 0556428, 28823799, 67647847, 4118138, 7704408, 5226605, 0923311, 25612731, 4763451, 7661541, 9665050 ####[facility] [address] [place] [address] Sodium [Moles/Vol] 141 mmol/L Normal 135-145 [facility] Remisol Comment on above: Performed By: #### 2 623444, 421729132, 2651131, 94079991, 80600324, 9612666, 6417043, 7300735, 5491883, 04014396, 0717375, 9420949, 7211820 ####[facility] [address] [place] [address] Urea nitrogen [Mass/Vol] 15 mg/dL Normal 5-21 [facility] Remisol Comment on above: Performed By: #### 2 003463, 056747464, 6108697, 58500257, 24216423, 7294845, 0339166, 7343016, 8782377, 91193728, 6947870, 7253980, 8953581 ####[facility] [address] [place] [address] [facility] 04-18-2023 Albumin/Globulin (S) [Mass conc ratio] 0.9 Low 1.1-2.2 [facility] Comment on above: Performed By: #### 2 705498, 705716206, 7873163, 49854579, 16237314, 1984279, 6612597, 8010976, 4326734, 11223712, 0098734, 9534393, 5159455 ####[facility] [address] [place] [address] ALP [Catalytic activity/Vol] 64 Int._Unit/L Normal 21-98 [facility] Comment on above: Performed By: #### 2 118183, 583058055, 5458722, 22575812, 54507837, 3220368, 5475726, 9412221, 2465230, 06505427, 7307987, 0261357, 0890395 ####[facility] [address] [place] [address] ALT No additional P-5'-P [Catalytic activity/Vol] 23 Int._Unit/L Normal 6-46 [facility] Comment on above: Performed By: #### 2 650934, 806503312, 7237991, 28256796, 98436244, 7299265, 6977629, 8794697, 2768402, 96716266, 1136499, 5811295, 9250425 ####[facility] [address] [place] [address] AST [Catalytic activity/Vol] 40 Int._Unit/L Normal 5-43 [facility] Comment on above: Performed By: #### 2 264647, 663584397, 1591192, 00088993, 12305269, 5721646, 6016114, 8622189, 6969081, 61265008, 7120968, 6118196, 8322664 ####[facility] [address] [place] [address] Urea nitrogen/Creatinine [Mass ratio] 25 No Units High 10-20 [facility] Comment on above: Performed By: #### 2 731715, 982836173, 6030739, 41018538, 85985540, 6243994, 9568570, 0858324, 7594593, 62048593, 9470756, 7499922, 6141749 ####[facility] [address] [place] [address] Consent for Treatmenton 04-08 Consent for Treatment [id number] F Normal [facility] FerritinOrdered By: Whit carrasco on 04-18-2023 Ferritin [Mass/Vol] 16 ng/mL Normal 11-307 [facility] Chem S Comment on above: Interpretive Data: N ORMALS MEN <30 YRS 16-132 ng/mL MEN >30 YRS 8-338 ng/mL WOMEN (PREMEN) 6-104 ng/mL WOMEN (POSTMEN) 12-210 ng/mL Result Comment: NORM ALS MEN <30 YRS 16-132 ng/mL MEN >30 YRS 8-338 ng/mL WOMEN (PREMEN) 6-104 ng/mL WOMEN (POSTMEN) 12-210 ng/mL Performed By: #### 2 804924, 074629067, 2818435, 14224765, 99192293, 3256703, 1133334, 9201306, 6787964, 71428168, 8986580, 2092147, 8234603 ####[facility] [address] [place] [address] FolateOrdered By: Whit Johansen on 04-18-2023 Folate [Mass/Vol] 5.2 ng/mL Low >=6.7 [facility] Ch em S Comment on above: Performed By: #### 2 336974, 570772394, 5552059, 51668715, 07513220, 1791977, 6073640, 5621784, 0147780, 26289384, 9805521, 4646410, 8455920 ####[facility] [address] [place] [address] Ironon 04-18-2023 Iron [Mass/Vol] 37 microgram/dL Normal 35-153 [facility] Comment on above: Performed By: #### 2 961849, 483924175, 7023001, 50972910, 47393431, 4709443, 0450366, 3903684, 4885784, 31530439, 7080970, 5090191, 5020019 ####[facility] [address] [place] [address] MagnesiumOrdered By: SYSTEM SYSTEM on 04-18-2023 Magnesium [Mass/Vol] 1.6 mg/dL Normal 1.3-2.4 [facility] Remisol Comment on above: Performed By: #### 2 098542, 940378904, 2241965, 20591314, 29455857, 1411083, 8883662, 8874971, 8977990, 02931714, 5535960, 5155951, 8949548 ####[address] [place] [address] Phosphoruson 04-18-2023 Phosphate [Mass/Vol] 2.5 mg/dL Normal 1.9-4.6 [facility] Comment on above: Performed By: #### 2 626467, 481790419, 5723752, 94405712, 93522090, 4928240, 9003848, 1482123, 0853302, 92491006, 7385804, 3851139, 9530315 ####[address] [place] [address] Physician Orderon 04-18-2023 Physician Order [id number]#1.00TIF F Normal [facility] TIBC Calculatedon 04-18-2023 Iron binding capacity [Mass/Vol] 374 microgram/dL Normal 250-400 [facility] Comment on above: Performed By: #### 2 765274, 773845525, 0430102, 51511907, 16328121, 1166425, 5221405, 6161041, 9924441, 30020014, 9069069, 1072600, 5321765 ####[facility] [place] [address] TIBC CalculatedOrdered By: S YSTEM SYSTEM on 04-18-2023 Transferrin [Mass/Vol] 267 mg/dL Normal 200-370 [facility] Remisol Comment on above: Performed By: #### 2 800761, 970516111, 6634072, 20943843, 50268995, 2973431, 5978913, 3449424, 2677658, 60411385, 8030428, 6711353, 1238272 ####[facility] [address] [place] [address] Vit Q87Rgbldik By: Whit meraz on 04-18-2023 Cobalamin (Vitamin B12) [Mass/Vol] 412 pg/mL Normal 50-1500 [facility] Chem S Comment on above: Performed By: #### 2 734948, 456447430, 2487001, 09541202, 80401559, 6165268, 1236177, 4445496, 0159819, 28899600, 3383374, 8888957, 6463246 ####[facility] [address] [place] [address] Vitamin D 25 HydroxyOrdered By: Whit Johansen on 04-18-2023 25-hydroxyvitamin D [Mass/Vol] 34.0 ng/mL Normal 30.0-100.0 [facility] Chem S Comment on above: Interpretive Data: Vitamin D deficiency has been defined as a level of serum 25-OH vitamin D less than 20 ng/mL (1,2) by the [place] [employer] and an Endocrine Society practice guideline. The Endocrine Society further defined vitamin D insufficiency as a level between 21 and 29 ng/mL (2). 1. IOM ([place] of [employer]). 2010. Dietary reference intakes for calcium and D. [place]: The National Academies Press. 2. Elda MF, Reyna DICK, Deangelo UREÑA, et al. Evaluation, treatment, and prevention of vitamin D deficiency: an Endocrine Society clinical practice guideline. JCEM. 2010; 96 (7):1911-30. Result Comment: Vit jett D deficiency has been defined as a level of serum 25-OH vitamin D less than 20 ng/mL (1,2) by the [place] [employer] and an Endocrine Society practice guideline. The Endocrine Society further defined vitamin D insufficiency as a level between 21 and 29 ng/mL (2). 1. IOM ([place] [employer]). 2010. Dietary reference intakes for calcium and D. [place]: The National Academies Press. 2. Elda MF, Reyna [place], Deangelo UREÑA, et al. Evaluation, treatment, and prevention of vitamin D deficiency: an Endocrine Society clinical practice guideline. JCEM. 2010; 96 (7):1911-30. Performed By: #### 2 487372, 490692952, 2820949, 45361313, 40285269, 7557352, 6371116, 6619186, 1861303, 53249436, 3105056, 8624227, 8899268 ####[facility] [address] [place] [address] eGFROrdered By: MUNIRA Strauss on 04-18-2023 GFR/1.73 sq M.predicted among non-blacks MDRD (S/P/Bld) [Vol rate/Area] 115 mL/min/1.73 m2 Normal >=59 [facility] Chem S Comment on above: Interpretive Data: C hronic kidney disease could be indicated at eGFR's of less than 60 mL/min/1.73m2. Kidney failure is indicated at less than 15 mL/min/1.73m2. Order Comment: Order added by Discern Expert. Result Comment: Sock Folder leola kidney disease could be indicated at eGFR's of less than 60 mL/min/1.73m2. Kidney failure is indicated at less than 15 mL/min/1.73m2. Performed By: #### 2 625359, 732581568, 8815505, 35040830, 17058424, 1552061, 6663925, 6209608, 3450893, 37437443, 3158315, 3742083, 9727107 ####[facility] [address] [place] [address] Orders Onlyon 04-13-2023 Orders Only [id number] Lisa Pinto 1980 F Date Provider Department Center 04/13/2023 GISELA HURTADO [facility] No family history on file Normal [facility] Orders Onlyon 04-04-2023 Orders Only [id number] Lisa Pinto 1980 F Date Provider Department Center 04/04/2023 JorgitoSherylNaziaGISELA CHIN [facility] No family history on file Normal [facility] ONC - Otheron 03-18-2023 ONC - Other Patient: LISA LIRIANO Age: 42 years Sex: Female : 1980 Associated Diagnoses: None Author: HUONG ARNETT, ARISTIDES Galvin Basic Information Visit type, purpose, and participants: Ms. Delfin Heart presents with her niece Nancy and another young niece for supportive oncology follow-up visit. Summary of oncologic history: 42-year-old woman with severe obesity, depression, anxiety, PTSD, hypothyroidism who initially developed right hip pain in late 2019, had a number of evaluations at different facilities with diagnosis of arthritis until she experienced acute on chronic pain in 04/2021 at which time imaging revealed a lytic lesion of the right ischium and inferior pubic ramus with pathologic pelvic fracture. PET scan showed associated hypermetabolic soft tissue mass and right external iliac node. 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 Treatment was complicated by neutropenic fever and DVT, severe fatigue and weakness. Follow-up PET scan showed no definite hypermetabolic activity, but she has had ongoing hip pain and extended penitentiary stays following hospitalizations for severe Covid-19 and panniculitis. She has been referred to orthopedic oncology surgeon for operative management of the pelvic fracture but was not a candidate due to morbid obesity for which she underwent sleeve gastrectomy on 10/25/22. Unfortunately, she has had multiple complications necessitating reversal with plans for bypass procedure in late January 2023. She remains in complete remission from her lymphoma. Chief complaint/reason for referral: pain, support History of Present Illness Interval history: Last visit 01/04. She was hospitalized at [facility] for septic shock on 01/11 then transferred to a hospital in [place] (?[facility]) then spent some time in rehab. She was in the hospital for 17 days. Records were not available. She did have her PICC line pulled due to the recurrent sepsis so is no longer on TPN. Her bariatric physician and machined parts metal sprayer at [facility] continue to follow her for DUARTE cirrhosis. 03/16/23: Followed up on nausea, pain, anxiety/coping; also addressed odynophagia and request for screening mammogram. Nausea: She continues to have nausea and severe heartburn whenever she eats. She can eat only a few bites of soft foods at a time. She is using ondansetron QID, no other anti-emetics. Vomiting is fairly infrequent since she adjusted her diet - follows closely with slicing machine tender in bariatric clinic. Reports she's lost weight quickly since stopping the TPN; e.g., 7# in a little over a week. She cannot consume protein shakes or supplements because they cause nausea, so focuses on cottage cheese, tuna or shredded chicken, milk - does not puree food but chews the meat very well. 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 Pain: Continues to have right hip pain, moderate in severity, exacerbated by movement, especially weight-bearing, and prolonged sitting in one spot. Overall it is modestly better even though she has been off all opioids since her hospitalization - she attributes this to weight loss. The coccygeal pain is quite a bit better. She does not use acetaminophen or NSAID due to her liver disease. She prefers to forgo resuming opioid pain medications at this time. Anxiety/coping: She acknowledges that the past two months have been stressful, but said I just push through it. She didn't seem to want to explore her feelings, probably because her nieces were in the room. She is happy to be off the TPN and current plans are for surgery clinic follow-up on 04/28 then gastric bypass tentatively planned for May. Her surgeon is pleased with her weight loss, told her it will enhance the safety and success of the procedure. She is anxious about the surgery since she has had so many medical complications in general. She is no longer taking the olanzapine which had been prescribed primarily for nausea, nor is she using hydroxyzine. Odynophagia: This has been severe. Localizes at and below sternal notch. Can only eat soft foods and even these cause some pain. She is prescribed pantoprazole and sucralfate, states the latter doesn't really help and tastes bad, so she has stopped using it. Not using anything topically. She had an EGD and esophageal dilation while she was hospitalized - records not available. Request for mammogram: She would like to get started with screening since her mother had breast cancer. She does not report any breast changes and has never before had a mammogram. 01/04/23: Followed up on pain, nausea, anxiety/coping. Pain: At last visit, morphine and oxycodone were discontinued due to patient's inability to keep medications down - she was started on fentanyl 12 mcg. Due to insurance issues she did not start this until 12/21. She feels i (more content not included)... [facility] CHEMISTRYOrdered By: Whit smith on 03-16-2023 Cholesterol [Mass/Vol] 140 mg/dL Normal 120 - 200 mg/dL [facility] Remisol Cholesterol in HDL [Mass/Vol] 30 mg/dL Invalid Interpretation Code [facility] Remisol Comment on above: Interpretive Data: H DL > or equal to 60 mg/dL: Low cardiovascular risk HDL < 40 mg/dL : High cardiovascular risk Cholesterol in LDL [Mass/Vol] 98 mg/dL Normal <=129mg/dL [facility] Remisol Cholesterol in VLDL [Mass/Vol] 16 mg/dL Normal 7 - 40 mg/dL [facility] Remisol Triglyceride [Mass/Vol] 78 mg/dL Normal <=149mg/dL [facility] Remisol CHEMISTRYOrdered By: Aleja Warner on 03-16-2023 HbA1c (Bld) [Mass fraction] 4.6 % Normal <=5.9% [facility] ChemAutoSS Consent for Treatmenton Consent for Treatment [id number]#1.00TIF F [facility] Consent for Treatment [id number] F [facility] GagS0uag 03-16-2023 HbA1c (Bld) [Mass fraction] 4.6 % Normal <=5.9 [facility] Comment on above: Performed By: #### 7 [id number], 1172635 #### [facility] [address] [place] [address] Lipid Panelon 03-16-2023 Cholesterol [Mass/Vol] 140 mg/dL Normal 120-200 [facility] Comment on above: Performed By: #### 7 61422101, 4920568 #### [facility] [address] [place] [address] Cholesterol in HDL [Mass/Vol] 30 mg/dL Invalid Interpretation Code [facility] Comment on above: Result Comment: HDL > or equal to 60 mg/dL: Low cardiovascular risk HDL < 40 mg/dL : High cardiovascular risk Performed By: #### 7 24494971, 6521122 #### [facility] [address] [place] [address] Cholesterol in LDL [Mass/Vol] 98 mg/dL Normal <=129 [facility] Comment on above: Performed By: #### 7 88132708, 2337939 #### [facility] [address] [place] [address] Cholesterol in VLDL [Mass/Vol] 16 mg/dL Normal 7-40 [facility] Comment on above: Performed By: #### 7 03581132, 0306298 #### [facility] [address] [place] [address] Triglyceride [Mass/Vol] 78 mg/dL Normal <=[address] [facility] Comment on above: Performed By: #### 7 [id number], 0287456 #### [facility] [address] [place] [address] Physician Orderon 03-16-2023 Physician Order [id number]#1.00TIF F Normal [facility] ONC - Otheron 03-15-2023 ONC - Other Patient: LISA LIRIANO Age: 42 years Sex: Female : 1980 Associated Diagnoses: None Author: ARISTIDES BORJA MD Patient canceled supportive oncology appointment today, rescheduled for 03/16. Normal [facility] ONC - Otheron 03-09-2023 ONC - Other Patient: LISA LIRIANO Age: 42 years Sex: Female : 1980 Associated Diagnoses: None Author: ARISTIDES BORJA MD Patient canceled supportive oncology appointment for today. Normal [facility] Follow-Upon 03-03-2023 Follow-Up [id number] Lisa Pinto 1980 F Date Provider Department Center 03/03/202379461-TNLMPHILIP [facility]ING [facility] No family history on file Level of Service:27443 [place] OFFICE/OUTPATIENT ESTABLISHED MOD MDM 30-39 MIN Reason for Visit and Comments: Follow-up [304623] - PT REPORTS NO IMPROVEMENT IN SYMPTOMS. Normal [facility] Follow-Upon 02-03-2023 Follow-Up [id number] Lisa Pinto 1980 F Date Provider Department Center 02/03/20237-GISELA CHIN [facility] GI [facility] No family history on file Level of Service:74611 [place] OFFICE/OUTPATIENT ESTABLISHED MOD MDM 30-39 MIN Reason for Visit and Comments: Follow-up [467792] - No concerns [facility] HISTOLOGY - TISSUE EXAMon LAB AP CASE REPORT Normal [facility] Comment on above: Result Comment: Surg ical Pathology Case: [id number] Authorizing Provider: Arminda Segal MD Collected: 01/31/2023 0854 Ordering Location: [facility] Received: 01/31/2023 0939 [facility] Pathologist: Yue Veliz MD Specimens: A) - Distal Esophagus, distal esophagus bx r/o reflux B) - Proximal Esophagus, proximal esophagus bx r/o EOE Performed By: #### L [id number] ####[facility] ([facility])[address] [place] [address] LAB AP CLINICAL INFORMATION Order Diagnoses [facility] Comment on above: Result Comment: R13. 10 - Dysphagia, unspecified type [ICD-10-CM] Performed By: #### L [id number] ####[facility] ([facility])[address] [place] [address] LAB AP GROSS DESCRIPTION [facility] Comment on above: Result Comment: A. D istal Esophagus. Part A is received in formalin and labeled Lisa Tobin Heart and distal esophagus biopsy. It consists of 2, 0.3 x 0.2 x 0.1 cm, white-penaloza fragments of mucosal tissue that are submitted in toto in 1 cassette. Kelly Pham, Pathologists' Veterinary Medicine Scientist Student B. Proximal Esophagus. Part B is received in formalin and labeled Lisa Tobin Heart and proximal esophagus biopsy. It consists of a 0.6 x 0.3 x 0.2 cm aggregate of white-pink fragments of mucosal tissue that are submitted in toto in 1 cassette. Kelly Pham, Pathologists' Veterinary Medicine Scientist Student Performed By: #### L [id number] ####[facility] ([facility])[address] [place] [address] LAB AP MICROSCOPIC DESCRIPTION Microscopic examination performed. [facility] Comment on above: Performed By: #### L [id number] ####[facility] ([facility])[address] [place] [address] LAB AP REPORT FINAL DIAGNOSIS NARRATIVE [facility] Comment on above: Result Comment: A. E sophagus, distal, biopsy: - Reflux esophagitis in junctional mucosa with focal activity - No intestinal metaplasia, dysplasia, or malignancy identified B. Esophagus, proximal, biopsy: - No significant pathologic findings in squamous mucosa Performed By: #### L [id number] ####[facility] ([facility])[address] [place] [address] HP 01-31-2023 ---- -------- Attestation signed by Arminda Segal MD at 01/31/2023 8:14 AM I personally saw and examined the patient on the same date of service as resident/fellow . I discussed the findings and therapeutic plan with the resident/fellow . I agree with the documentation, except for any edits/updates below. Assessment: Ms. Lisa Heart is a 42 y.o. female with newly diagnosed cirrhosis presenting for EGD for further evaluation of dysphagia. Plan: EGD -------- History Of Present Illness Lisa Heart is a 42 y.o. female with newly diagnosed cirrhosis presenting for EGD for further evaluation of dysphagia. Past Medical History She has a past medical history of Cirrhosis (CMS/HCC), Dysphagia, and GERD (gastroesophageal reflux disease). Surgical History She has a past surgical history that includes CT guided percutaneous bone deep (05/14/2020); CT guided percutaneous bone deep (05/05/2020); Hernia repair; Bariatric Surgery; and Upper gastrointestinal endoscopy. Social History She reports that she has never smoked. She has never used smokeless tobacco. She reports that she does not currently use alcohol. She reports that she does not use drugs. Family History No family history on file. Allergies Penicillins, Acetaminophen, Darvocet a500 [propoxyphene n-acetaminophen], Piperacillin-tazobactam, Propoxyphene, and Vancomycin Medications (Not in a hospital admission) Review of Systems Last Recorded Vitals Visit Vitals BP 118/65 Pulse 95 Temp 36 ???C (96.8 ???F) (Temporal) Resp 18 Ht 1.753 m (5' 9 ) Wt (!) 151 kg (332 lb 3.7 oz) SpO2 97% BMI 49.06 kg/m??? OB Status Having periods Smoking Status Never BSA 2.71 m??? Physical Exam Relevant Lab Results No results found for: NA, K, CL, CO2, BUN, CREATININE, GLUCOSE, CALCIUM, ANIONGAP, EGFR, BCR Relevant Imaging Results No image results found. Assessment/Plan Lisa Heart is a 42 y.o. female with newly diagnosed cirrhosis presenting for EGD for further evaluation of dysphagia. Plan: EGD Normal [facility] POCT GLUCOSE METER UNSOLICIT ED RESULTSon 01-31-2023 Glucose [Mass/Vol] 79 mg/dL Normal 70-105 [facility] Comment on above: Order Comment: Waive d Testing in the ED is performed under the ED CLIA certificate #[id number]. Result Comment: [email or web address] Performed By: #### L [id number] ####[facility] ([facility])[address] [place] [address] Glucose [Mass/Vol] 75 mg/dL Normal 70-105 [facility] Comment on above: Order Comment: Waive d Testing in the ED is performed under the ED CLIA certificate #[id number]. Result Comment: [email or web address] Performed By: #### L [id number] ####[facility] ([facility] [place] [address] XR HIP RIGHT (1 VIEW)on 01-07 XR HIP RIGHT (1 VIEW) 1 view, pelvis and right hip Comparison: None Findings: No acute fracture or dislocation. No significant arthritic change. The soft tissues are unremarkable. IMPRESSION: No acute findings. This document has been electronically signed by: Juanito Sharma MD on 01/22/2023 10:22 PM Interpreted by: Juanito Sharma MD Signed by: Juanito Sharma MD 01/22/23 Final result Normal [facility] 36on 01-06-20[address] Segal's recommendations are following EGD, if patient needs to return to [facility] for further care, will try to coordinate U/S with that visit. Pt agreeable to plan, denies any questions or concerns. Normal [facility] CHEMISTRYOrdered By: SYSTEM SYSTEM on 01-04-2023 Albumin [Mass/Vol] 2.7 g/dL Low 3.3 - 5.0 gm/dL [facility] Albumin/Globulin [Mass ratio] 0.8 {ratio} Low 1.1 - 2.2 [facility] ALP [Catalytic activity/Vol] 66 [iU]/d Normal 21 - 98 Int._Unit/L [facility] ALT No additional P-5'-P [Catalytic activity/Vol] 21 [iU]/d Normal 6 - 46 Int._Unit/L [facility] Anion gap [Moles/Vol] 8 mmol/L Normal 6 - 16 mEq/L [facility] AST [Catalytic activity/Vol] 33 [iU]/d Normal 5 - 43 Int._Unit/L [facility] Bilirubin [Mass/Vol] 0.7 mg/dL Normal 0.0 - 1 .1 mg/dL [facility] Calcium [Mass/Vol] 8.6 mg/dL Low 8.9 - 11. 1 mg/dL [facility] Chloride [Moles/Vol] 110 mmol/L Normal 101 - 1 11 mmol/L [facility] CK [Catalytic activity/Vol] 19 [iU]/d Normal 14 - 261 Int._Unit/L [facility] CO2 [Moles/Vol] 26 mmol/L Normal 21 - 31 mmol/L [facility] Creatinine [Mass/Vol] 0.7 mg/dL Normal 0.5 - 1.3 mg/dL [facility] GFR/1.73 sq M.predicted among non-blacks MDRD (S/P/Bld) [Vol rate/Area] 111 mL/min/1.73 m2 Normal >=59mL/min/ 1.73 m2 [facility] S Globulin (S) [Mass/Vol] 3.4 g/dL Normal 1.4 - 4.0 gm/dL [facility] Glucose [Mass/Vol] 86 mg/dL Normal 55 - 199 mg/dL [facility] Magnesium [Mass/Vol] 1.8 mg/dL Normal 1.3 - 2 .4 mg/dL [facility] Phosphate [Mass/Vol] 2.9 mg/dL Normal 1.9 - 4 .6 mg/dL [facility] Potassium [Moles/Vol] 3.9 mmol/L Normal 3.5 - 5.3 mmol/L [facility] Protein [Mass/Vol] 6.1 g/dL Normal 6.0 - 7.8 gm/dL [facility] Sodium [Moles/Vol] 140 mmol/L Normal 135 - 145 mmol/L [facility] Triglyceride [Mass/Vol] 91 mg/dL Normal <=149mg/dL [facility] Urea nitrogen [Mass/Vol] 23 mg/dL High 5 - 21 mg/dL [facility] Urea nitrogen/Creatinine [Mass ratio] 33 mg/mg High 10 - 20 [facility] HEMATOLOGYOrdered By: SYSTEM SYSTEM on 01-04-2023 Basophils/100 WBC (Bld) 1.0 % Normal 0.0 - 2.0 % [facility]eAutoSS Basophils/Leukocytes Auto (Bld) [Pure # fraction] 0.0 E9/L Normal 0.0 - 0.2 E9/L [facility] Eosinophils/100 WBC (Bld) 4.0 % Normal 0.0 - 8.0 % [facility] Eosinophils/Leukocytes Auto (Bld) [Pure # fraction] 0.2 E9/L Normal 0.0 - 0.5 E9/L [facility] Lymphocytes/100 WBC (Bld) 30.7 % Normal 14.0 - 50.0 % [facility] Lymphocytes/Leukocytes Auto (Bld) [Pure # fraction] 1.4 E9/L Normal 1.0 - 4.0 E9/L [facility] Monocytes/100 WBC (Bld) 6.7 % Normal 4.0 - 14.0 % [facility] Monocytes/Leukocytes Auto (Bld) [Pure # fraction] 0.3 E9/L Normal 0.2 - 1.0 E9/L [facility] Neutrophils/100 WBC (Bld) 57.6 % Normal 36.0 - 75.0 % [facility] Neutrophils/Leukocytes Auto (Bld) [Pure # fraction] 2.6 E9/L Normal 2.0 - 7.5 E9/L [facility] HEMATOLOGYOrdered By: Shalini Ovalles on 01-04-2023 Erythrocyte distribution width (RBC) [Ratio] 16.2 % High 10.9 - 14.2 % [facility] Hematocrit (Bld) [Volume fraction] 31.5 % Low 34.0 - 46.0 % [facility] Hemoglobin (Bld) [Mass/Vol] 10.3 g/dL Low 12.0 - 16.0 gm/dL [facility] MCH (RBC) [Entitic mass] 28.4 pg Normal 27.0 - 34.0 pg [facility] MCHC (RBC) [Mass/Vol] 32.7 g/dL Normal 31.4 - 36.0 gm/dL [facility] MCV (RBC) [Entitic vol] 86.6 fL Normal 80.0 - 100.0 fL [facility] Platelet mean volume (Bld) [Entitic vol] 9.2 fL Normal 6.4 - 10.8 fL [facility] Platelets (Bld) [#/Vol] 178.0 E9/L Normal 150. 0 - 500.0 E9/L [facility] RBC (Bld) [#/Vol] 3.6 E12/L Low 4.3 - 5.9 E12/L [facility] WBC corrected for nucl RBC Auto (Bld) [#/Vol] 4.5 E9/L Normal 4.0 - 11.0 E9/L [facility] Documentationon 12-29-2022 Documentation [id number] Lisa Pinto 1980 F Date Provider Department Center 12/29/[id number]-PYNPPHILIP IRVING [facility] No family history on file Normal [facility] CHEMISTRYOrdered By: SYSTEM SYSTEM on 12-27-2022 Albumin [Mass/Vol] 2.4 g/dL Low 3.3 - 5.0 gm/dL [facility] Albumin/Globulin [Mass ratio] 0.8 {ratio} Low 1.1 - 2.2 [facility] ALP [Catalytic activity/Vol] 65 [iU]/d Normal 21 - 98 Int._Unit/L [facility] ALT No additional P-5'-P [Catalytic activity/Vol] 19 [iU]/d Normal 6 - 46 Int._Unit/L [facility] Anion gap [Moles/Vol] 7 mmol/L Normal 6 - 16 mEq/L [facility] AST [Catalytic activity/Vol] 28 [iU]/d Normal 5 - 43 Int._Unit/L [facility] Bilirubin [Mass/Vol] 0.9 mg/dL Normal 0.0 - 1 .1 mg/dL [facility] Calcium [Mass/Vol] 7.5 mg/dL Low 8.9 - 11. 1 mg/dL [facility] Chloride [Moles/Vol] 111 mmol/L Normal 101 - 1 11 mmol/L [facility] CO2 [Moles/Vol] 23 mmol/L Normal 21 - 31 mmol/L [facility] Creatinine [Mass/Vol] 0.6 mg/dL Normal 0.5 - 1.3 mg/dL [facility] GFR/1.73 sq M.predicted among non-blacks MDRD (S/P/Bld) [Vol rate/Area] 115 mL/min/1.73 m2 Normal >=59mL/min/ 1.73 m2 [facility] Chem S Globulin (S) [Mass/Vol] 3.2 g/dL Normal 1.4 - 4.0 gm/dL [facility] Glucose [Mass/Vol] 74 mg/dL Normal 55 - 199 mg/dL [facility] Magnesium [Mass/Vol] 1.8 mg/dL Normal 1.3 - 2 .4 mg/dL [facility] Phosphate [Mass/Vol] 2.3 mg/dL Normal 1.9 - 4 .6 mg/dL [facility] Potassium [Moles/Vol] 3.9 mmol/L Normal 3.5 - 5.3 mmol/L [facility] Protein [Mass/Vol] 5.6 g/dL Low 6.0 - 7.8 gm/dL [facility] Sodium [Moles/Vol] 137 mmol/L Normal 135 - 145 mmol/L [facility] Triglyceride [Mass/Vol] 116 mg/dL Normal <=149mg/dL [facility] Urea nitrogen [Mass/Vol] 24 mg/dL High 5 - 21 mg/dL [facility] Urea nitrogen/Creatinine [Mass ratio] 40 mg/mg High 10 - 20 [facility] HEMATOLOGYOrdered By: SYSTEM SYSTEM on 12-27-2022 Basophils/100 WBC (Bld) 1.3 % Normal 0.0 - 2.0 % [facility]eAuto[facility] Basophils/Leukocytes Auto (Bld) [Pure # fraction] 0.1 E9/L Normal 0.0 - 0.2 E9/L [facility] Eosinophils/100 WBC (Bld) 5.1 % Normal 0.0 - 8.0 % [facility] Eosinophils/Leukocytes Auto (Bld) [Pure # fraction] 0.3 E9/L Normal 0.0 - 0.5 E9/L [facility] Lymphocytes/100 WBC (Bld) 16.6 % Normal 14.0 - 50.0 % [facility] Lymphocytes/Leukocytes Auto (Bld) [Pure # fraction] 0.9 E9/L Low 1.0 - 4.0 E9/L [facility] Monocytes/100 WBC (Bld) 8.4 % Normal 4.0 - 14.0 % [facility] Monocytes/Leukocytes Auto (Bld) [Pure # fraction] 0.5 E9/L Normal 0.2 - 1.0 E9/L [facility] Neutrophils/100 WBC (Bld) 68.6 % Normal 36.0 - 75.0 % [facility] Neutrophils/Leukocytes Auto (Bld) [Pure # fraction] 3.7 E9/L Normal 2.0 - 7.5 E9/L [facility] HEMATOLOGYOrdered By: Ritu Dyson on 12-27-2022 Erythrocyte distribution width (RBC) [Ratio] 15.9 % High 10.9 - 14.2 % [facility] Hematocrit (Bld) [Volume fraction] 31.0 % Low 34.0 - 46.0 % [facility] Hemoglobin (Bld) [Mass/Vol] 10.4 g/dL Low 12.0 - 16.0 gm/dL [facility] MCH (RBC) [Entitic mass] 29.1 pg Normal 27.0 - 34.0 pg [facility] MCHC (RBC) [Mass/Vol] 33.7 g/dL Normal 31.4 - 36.0 gm/dL [facility] MCV (RBC) [Entitic vol] 86.3 fL Normal 80.0 - 100.0 fL [facility] Platelet mean volume (Bld) [Entitic vol] 9.4 fL Normal 6.4 - 10.8 fL [facility] Platelets (Bld) [#/Vol] 134.0 E9/L Low 150. 0 - 500.0 E9/L [facility] HemeAutoSS RBC (Bld) [#/Vol] 3.6 E12/L Low 4.3 - 5.9 E12/L [facility] HemeAutoSS WBC corrected for nucl RBC Auto (Bld) [#/Vol] 5.5 E9/L Normal 4.0 - 11.0 E9/L [facility] HemeAutoSS Prep for Procedureon 023 Prep for Procedure [id number] Lisa Pinto 1980 F Date Provider Department Center 12/27/2022 ARMINDA SUGGS [facility] GIS GEORGEI No family history on file Normal [facility] Telephoneon 12-27-2022 Telephone [id number] Lisa Pinto 1980 F Date Provider Department [place] 12/27/202204212-AJEFPHILIP ZENG [facility] No family history on file Normal [facility] Orders Onlyon 12-24-2022 Orders Only [id number] Lisa Pinto 1980 F Date Provider Department Center 12/24/[id number]-IKWOPHILIP FERMIN [facility] No family history on file Normal [facility] Erroneous Encounteron 2022 Erroneous Encounter [id number] Lisa Pinto 1980 F Date Provider Department Center 12/22/[id number]-GEKNPHILIP FERMIN [facility] No family history on file Reason for Visit and Comments: Error (VOID this visit) [77] Normal [facility] Alanine aminotransferase [En zymatic activity/volume] in Serum or PlasmaOrdered By: NON STAFF on 12-21-2022 ALT [Catalytic activity/Vol] 30 U/L 7-52 [facility] Albumin [Mass/volume] in Ser um or Plasma by Bromocresol green (BCG) dye binding methoOrdered By: NON STAFF on 12-21-2022 Albumin BCG dye [Mass/Vol] 2.7 g/dL 3.5-5.7 [facility] Alkaline phosphatase [Enzyma tic activity/volume] in Serum or PlasmaOrdered By: NON STAFF on 12-21-2022 ALP [Catalytic activity/Vol] 68 U/L 34-104 [facility] Aspartate aminotransferase [ Enzymatic activity/volume] in Serum or PlasmaOrdered By: NON STAFF on 12-21-2022 AST [Catalytic activity/Vol] 49 U/L 13-39 [facility] Basophils Auto (Bld) [#/Vol] Ordered By: NON STAFF on 12-21-2022 Basophils (Bld) [#/Vol] 0.0 10*3/uL 0.0-0.2 [facility] Basophils/100 WBC Auto (Bld) Ordered By: NON STAFF on 12-21-2022 Basophils/100 WBC (Bld) 0.6 % . [facility] Bilirubin.total [Mass/volume ] in Serum or PlasmaOrdered By: NON STAFF on 12-21-2022 Bilirubin [Mass/Vol] 1.1 mg/dL 0.3-1.0 [facility] Calcium [Mass/volume] in Ser um or PlasmaOrdered By: NON STAFF on 12-21-2022 Calcium [Mass/Vol] 7.5 mg/dL 8.6-10.3 [facility] Carbon dioxide, total [Moles /volume] in Serum or PlasmaOrdered By: NON STAFF on 12-21-2022 CO2 [Moles/Vol] 29.5 mmol/L 21.0-31.0 [facility] Chloride [Moles/volume] in S shayla or PlasmaOrdered By: NON STAFF on 12-21-2022 Chloride [Moles/Vol] 102 mmol/L 98-107 [facility] Complete Blood Count Auto Di ffon 12-21-2022 Basophils (Bld) [#/Vol] 0.0 10*3/uL Normal 0.0-0.2 [facility] Comment on above: Result Comment: PERF ORMED BY: [facility] [address] [place] [address] PATHOLOGIST MANAGER [employer] LA[employer] DAWKINS M.D. Performed By: #### C BC, TRIG, MG, CMP, PHOS #### [facility] [address] Basophils/100 WBC (Bld) 0.6 % Normal . [facility] Comment on above: Performed By: #### C BC, TRIG, MG, CMP, PHOS #### [address] Eosinophils (Bld) [#/Vol] 0.1 10*3/uL Normal 0.0-0.45 [facility] Comment on above: Performed By: #### C BC, TRIG, MG, CMP, PHOS #### [address] Eosinophils/100 WBC (Bld) 1.4 % Normal . [facility] Comment on above: Performed By: #### C BC, TRIG, MG, CMP, PHOS #### [address] Erythrocyte distribution width (RBC) [Ratio] 15.3 % Normal 11.9-15.3 [facility] Comment on above: Performed By: #### C BC, TRIG, MG, CMP, PHOS #### [address] Hematocrit (Bld) [Volume fraction] 32.1 % Low 34.0-46.4 [facility] Comment on above: Performed By: #### C BC, TRIG, MG, CMP, PHOS #### [address] Hemoglobin (Bld) [Mass/Vol] 10.5 g/dL Low 11.8-15.4 [facility] Comment on above: Performed By: #### C BC, TRIG, MG, CMP, PHOS #### [address] Lymphocytes (Bld) [#/Vol] 0.9 10*3/uL Low 1.00-4.8 [facility] Comment on above: Performed By: #### C BC, TRIG, MG, CMP, PHOS #### [address] Lymphocytes/100 WBC (Bld) 19.9 % Normal . [facility] Comment on above: Performed By: #### C BC, TRIG, MG, CMP, PHOS #### [address] MCH (RBC) [Entitic mass] 28.3 pg Normal 24.7-34.3 [facility] Comment on above: Performed By: #### C BC, TRIG, MG, CMP, PHOS #### [address] MCV (RBC) [Entitic vol] 86.7 fL Normal 80-100 [facility] Comment on above: Performed By: #### C BC, TRIG, MG, CMP, PHOS #### [address] Mean Corpuscular HGB Conc 32.6 g/dL Normal 32.0-35.0 [facility] Comment on above: Performed By: #### C BC, TRIG, MG, CMP, PHOS #### [address] Monocytes (Bld) [#/Vol] 0.4 10*3/uL Normal 0.0-0.8 [facility] Comment on above: Performed By: #### C BC, TRIG, MG, CMP, PHOS #### [address] Monocytes/100 WBC (Bld) 7.4 % Normal . [facility] Comment on above: Performed By: #### C BC, TRIG, MG, CMP, PHOS #### [address] Neutrophils (Bld) [#/Vol] 3.4 10*3/uL Normal 1.8-7.7 [facility] Comment on above: Performed By: #### C BC, TRIG, MG, CMP, PHOS #### [address] Neutrophils/100 WBC (Bld) 70.7 % Normal . [facility] Comment on above: Performed By: #### C BC, TRIG, MG, CMP, PHOS #### [address] NRBC% 0.2 /100{WBC} Normal 0-0.5 [facility] Comment on above: Performed By: #### C BC, TRIG, MG, CMP, PHOS #### [address] Platelet mean volume (Bld) [Entitic vol] 11.0 fL High 6.3-10.7 [facility] Comment on above: Performed By: #### C BC, TRIG, MG, CMP, PHOS #### [address] Platelets (Bld) [#/Vol] 59 10*3/uL Low 150-450 [facility] Comment on above: Performed By: #### C BC, TRIG, MG, CMP, PHOS #### [address] RBC (Bld) [#/Vol] 3.71 10*6/uL Normal 3.60-5.00 [facility] Comment on above: Performed By: #### C BC, TRIG, MG, CMP, PHOS #### [address] WBC (Bld) [#/Vol] 4.8 10*3/uL Normal 3.8-11.6 [facility] Comment on above: Performed By: #### C BC, TRIG, MG, CMP, PHOS #### [address] Comprehensive Metabolic Pane elio 12-21-2022 Albumin [Mass/Vol] 2.7 g/dL Low 3.5-5.7 [facility] Comment on above: Performed By: #### C BC, TRIG, MG, CMP, PHOS #### [address] Albumin/Globulin [Mass ratio] 0.9 {ratio} Normal [facility] Comment on above: Performed By: #### C BC, TRIG, MG, CMP, PHOS #### [address] ALP [Catalytic activity/Vol] 68 U/L Normal 34-104 [facility] Comment on above: Performed By: #### C BC, TRIG, MG, CMP, PHOS #### [facility] [address] [place] [address] ALT [Catalytic activity/Vol] 30 U/L Normal 7-52 [facility] Comment on above: Performed By: #### C BC, TRIG, MG, CMP, PHOS #### [address] Anion gap [Moles/Vol] 9.0 mmol/L Normal 6.0-15.0 [facility] Comment on above: Performed By: #### C BC, TRIG, MG, CMP, PHOS #### [address] AST [Catalytic activity/Vol] 49 U/L High 13-39 [facility] Comment on above: Performed By: #### C BC, TRIG, MG, CMP, PHOS #### [address] Bilirubin [Mass/Vol] 1.1 mg/dL High 0.3-1.0 [facility] Comment on above: Performed By: #### C BC, TRIG, MG, CMP, PHOS #### [address] Calcium [Mass/Vol] 7.5 mg/dL Low 8.6-10.3 [facility] Comment on above: Performed By: #### C BC, TRIG, MG, CMP, PHOS #### [address] Chloride [Moles/Vol] 102 mmol/L Normal 98-107 [facility] Comment on above: Performed By: #### C BC, TRIG, MG, CMP, PHOS #### [address] CO2 [Moles/Vol] 29.5 mmol/L Normal 21.0-31.0 [facility] Comment on above: Performed By: #### C BC, TRIG, MG, CMP, PHOS #### [address] Creatinine [Mass/Vol] 0.73 mg/dL Normal 0.60-1.20 [facility] Comment on above: Performed By: #### C BC, TRIG, MG, CMP, PHOS #### [address] GFR/1.73 sq M.predicted MDRD (S/P/Bld) [Vol rate/Area] mL/min/{1.73_m2} Normal [facility] Comment on above: Performed By: #### C BC, TRIG, MG, CMP, PHOS #### [address] Globulin (S) [Mass/Vol] 2.9 g/dL Normal [facility] Comment on above: Performed By: #### C BC, TRIG, MG, CMP, PHOS #### [address] Glucose [Mass/Vol] 96 mg/dL Normal 70-100 [facility] Comment on above: Result Comment: [facility] Glucose Reference Range is dependent on time and content of last meal. Glucose of more than 200 mg/dL in a nonstressed, ambulatory subject supports the diagnosis of Diabetes Mellitus. ADA recommended reference range Performed By: #### C BC, TRIG, MG, CMP, PHOS #### [address] Potassium [Moles/Vol] 3.5 mmol/L Normal 3.5-5.1 [facility] Comment on above: Performed By: #### C BC, TRIG, MG, CMP, PHOS #### [address] Protein [Mass/Vol] 5.6 g/dL Low 6.4-8.9 [facility] Comment on above: Performed By: #### C BC, TRIG, MG, CMP, PHOS #### [address] Sodium [Moles/Vol] 137 mmol/L Normal 136-145 [facility] Comment on above: Performed By: #### C BC, TRIG, MG, CMP, PHOS #### [facility] [address] [place] [address] [place] Urea nitrogen [Mass/Vol] 20 mg/dL Normal 7-25 [facility] Comment on above: Performed By: #### C BC, TRIG, MG, CMP, PHOS #### [facility] [address] Creatinine [Mass/volume] in Serum or PlasmaOrdered By: NON STAFF on 12-21-2022 Creatinine [Mass/Vol] 0.73 mg/dL 0.60-1.20 [facility] Eosinophils Auto (Bld) [#/Vo l]Ordered By: NON STAFF on 12-21-2022 Eosinophils (Bld) [#/Vol] 0.1 10*3/uL 0.0-0.45 [facility] Eosinophils/100 WBC Auto (Bl d)Ordered By: NON STAFF on 12-21-2022 Eosinophils/100 WBC (Bld) 1.4 % . [facility] Erythrocyte distribution wid th Auto (RBC) [Ratio]Ordered By: NON STAFF on 12-21-2022 Erythrocyte distribution width (RBC) [Ratio] 15.3 % 11.9-15.3 [facility] Globulin Calc (S) [Mass/Vol] Ordered By: NON STAFF on 12-21-2022 Globulin (S) [Mass/Vol] 2.9 g/dL [facility] Glucose [Mass/volume] in Ser um or PlasmaOrdered By: NON STAFF on 12-21-2022 Glucose [Mass/Vol] 96 mg/dL 70-100 [facility] Comment on above: ADA recommended refe rence rangeRandom Glucose Reference Range is dependent on time and content of last meal. Glucose of more than 200 mg/dL in a nonstressed, ambulatory subject supports the diagnosis of Diabetes Mellitus. Hematocrit Auto (Bld) [Volum e fraction]Ordered By: NON STAFF on 12-21-2022 Hematocrit (Bld) [Volume fraction] 32.1 % 34.0-46.4 [facility] Hemoglobin [Mass/volume] in BloodOrdered By: NON STAFF on 12-21-2022 Hemoglobin (Bld) [Mass/Vol] 10.5 g/dL 11.8-15.4 [facility] Leukocytes [#/volume] correc val for nucleated erythrocytes in Blood by Automated counOrdered By: NON STAFF on 12-21-2022 WBC corrected for nucl RBC Auto (Bld) [#/Vol] 4.8 10*3/uL 3.8-11.6 [facility] Lymphocytes Auto (Bld) [#/Vo l]Ordered By: NON STAFF on 12-21-2022 Lymphocytes (Bld) [#/Vol] 0.9 10*3/uL 1.00-4.8 [facility] Lymphocytes/100 WBC Auto (Bl d)Ordered By: NON STAFF on 12-21-2022 Lymphocytes/100 WBC (Bld) 19.9 % . [facility] MCH Auto (RBC) [Entitic mass ]Ordered By: NON STAFF on 12-21-2022 MCH (RBC) [Entitic mass] 28.3 pg 24.7-34.3 [facility] MCHC Auto (RBC) [Mass/Vol]Or dered By: NON STAFF on 12-21-2022 MCHC (RBC) [Mass/Vol] 32.6 g/dL 32.0-35.0 [facility] MCV Auto (RBC) [Entitic vol] Ordered By: NON STAFF on 12-21-2022 MCV (RBC) [Entitic vol] 86.7 fL 80-100 [facility] Magnesiumon 12-21-2022 Magnesium [Mass/Vol] 1.9 mg/dL Normal 1.9-2.7 [facility] Comment on above: Performed By: #### C BC, TRIG, MG, CMP, PHOS #### [facility] [address] Magnesium [Mass/volume] in S shayla or PlasmaOrdered By: NON STAFF on 12-21-2022 Magnesium [Mass/Vol] 1.9 mg/dL 1.9-2.7 [facility] Monocytes Auto (Bld) [#/Vol] Ordered By: NON STAFF on 12-21-2022 Monocytes (Bld) [#/Vol] 0.4 10*3/uL 0.0-0.8 [facility] Monocytes/100 WBC Auto (Bld) Ordered By: NON STAFF on 12-21-2022 Monocytes/100 WBC (Bld) 7.4 % . [facility] Neutrophils Auto (Bld) [#/Vo l]Ordered By: NON STAFF on 12-21-2022 Neutrophils (Bld) [#/Vol] 3.4 10*3/uL 1.8-7.7 [facility] Neutrophils/100 WBC Auto (Bl d)Ordered By: NON STAFF on 12-21-2022 Neutrophils/100 WBC (Bld) 70.7 % . [facility] No Panel InformationOrdered By: NON STAFF on 12-21-2022 Estimated GFR (CKD-EPI) > 60.0 mL/Min [facility] Creatinine Clearance (Chem N/A [facility] Nucleated erythrocytes [Pres ence] in Blood by Automated countOrdered By: NON STAFF on 12-21-2022 Nucleated RBC Auto Ql (Bld) 0.2 /100{WBC} 0-0.5 [facility] Phosphate [Mass/volume] in S shayla or PlasmaOrdered By: NON STAFF on 12-21-2022 Phosphate [Mass/Vol] 2.2 mg/dL 3.7-7.2 [facility] Phosphoruson 12-21-2022 Phosphate [Mass/Vol] 2.2 mg/dL Low 3.7-7.2 [facility] Comment on above: Performed By: #### C BC, TRIG, MG, CMP, PHOS #### [facility] [address] Platelet mean volume Auto (B ld) [Entitic vol]Ordered By: NON STAFF on 12-21-2022 Platelet mean volume (Bld) [Entitic vol] 11.0 fL 6.3-10.7 [facility] Platelets Auto (Bld) [#/Vol] Ordered By: NON STAFF on 12-21-2022 Platelets (Bld) [#/Vol] 59 10*3/uL 150-450 [facility] Potassium [Moles/volume] in Serum or PlasmaOrdered By: NON STAFF on 12-21-2022 Potassium [Moles/Vol] 3.5 mmol/L 3.5-5.1 [facility] Protein [Mass/volume] in Ser um or PlasmaOrdered By: NON STAFF on 12-21-2022 Protein [Mass/Vol] 5.6 g/dL 6.4-8.9 [facility] RBC Auto (Bld) [#/Vol]Ordere d By: NON STAFF on 12-21-2022 RBC (Bld) [#/Vol] 3.71 10*6/uL 3.60-5.00 [facility] Serum or plasma albumin/glob ulin mass ratioOrdered By: NON STAFF on 12-21-2022 Albumin/Globulin [Mass ratio] 0.9 {ratio} [facility] Serum or plasma anion gap de terminationOrdered By: NON STAFF on 12-21-2022 Anion gap [Moles/Vol] 9.0 mmol/L 6.0-15.0 [facility] Sodium [Moles/volume] in Ser um or PlasmaOrdered By: NON STAFF on 12-21-2022 Sodium [Moles/Vol] 137 mmol/L 136-145 [facility] Triglyceride [Mass/volume] i n Serum or PlasmaOrdered By: NON STAFF on 12-21-2022 Triglyceride [Mass/Vol] 182 mg/dL 35-149 [facility] Comment on above: TRIG ATP III CLASSIF ICATIONTRIG less than 150 mg/dL NormalTRIG 150-199 mg/dL Borderline highTRIG 200-500 mg/dL High TRIG greater than 500 mg/dL Very highStandard traceable to the Center for Disease Conrtrol and Prevention (CDC) test method. Triglycerideson 12-21-2022 Triglyceride [Mass/Vol] 182 mg/dL High 35-149 [facility] Comment on above: Result Comment: TRIG ATP III CLASSIFICATION TRIG less than 150 mg/dL Normal TRIG 150-199 mg/dL Borderline high TRIG 200-500 mg/dL High TRIG greater than 500 mg/dL Very high Standard traceable to the Center for Disease Conrtrol and Prevention (CDC) test method. PERFORMED BY: [facility] [address] [place] [id number] PATHOLOGIST MA[employer]GER [employer] LA[employer] DAWKINS M.D. Performed By: #### C BC, TRIG, MG, CMP, PHOS #### [facility] [address] [place] [id number] [facility] Urea nitrogen [Mass/volume] in Serum or PlasmaOrdered By: NON STAFF on 12-21-2022 Urea nitrogen [Mass/Vol] 20 mg/dL 7- [facility] WBC Auto (Bld) [#/Vol]Ordere d By: NON STAFF on 12-21-2022 WBC (Bld) [#/Vol] 4.8 10*3/uL 3.8-11.6 [facility] Office Visiton 12-20-2022 Follow-up visit [id number] Lisa Pinto 1980 F Date Provider Department Center 12/20/[id number]-INXUPHILIP [place] [facility] No family history on file Level of Service:61133 [place] OFFICE/OUTPATIENT NEW MODERATE MDM 45-59 MINUTES Reason for Visit and Comments: New Patient [632] - Referred for abnormal liver results Normal [facility] CHEMISTRYOrdered By: SYSTEM SYSTEM on 12-16-2022 Troponin I.cardiac [Mass/Vol] 5.40 pg/mL Low 10.10 - 27.10 pg/mL [facility] Rem[facility] Troponin I.cardiac [Mass/Vol] 5.20 pg/mL Low 10.10 - 27.10 pg/mL [facility] Albumin [Mass/Vol] 3.1 g/dL Low 3.3 - 5.0 gm/dL [facility] Albumin/Globulin [Mass ratio] 0.8 {ratio} Low 1.1 - 2.2 [facility] ALP [Catalytic activity/Vol] 75 [iU]/d Normal 21 - 98 Int._Unit/L [facility] ALT No additional P-5'-P [Catalytic activity/Vol] 27 [iU]/d Normal 6 - 46 Int._Unit/L [facility] Anion gap [Moles/Vol] 8 mmol/L Normal 6 - 16 mEq/L [facility] AST [Catalytic activity/Vol] 41 [iU]/d Normal 5 - 43 Int._Unit/L [facility] Bilirubin [Mass/Vol] 0.8 mg/dL Normal 0.0 - 1 .1 mg/dL [facility] Bilirubin.direct [Mass/Vol] 0.2 mg/dL Normal 0.1 - 0.4 mg/dL [facility] Bilirubin.indirect [Mass or moles/Vol] 0.6 mg/dL Normal 0.1 - 0.9 mg/dL [facility] Calcium [Mass/Vol] 8.3 mg/dL Low 8.9 - 11. 1 mg/dL [facility] Chloride [Moles/Vol] 107 mmol/L Normal 101 - 1 11 mmol/L [facility] CO2 [Moles/Vol] 27 mmol/L Normal 21 - 31 mmol/L [facility] Creatinine [Mass/Vol] 0.7 mg/dL Normal 0.5 - 1.3 mg/dL [facility] GFR/1.73 sq M.predicted among non-blacks MDRD (S/P/Bld) [Vol rate/Area] 111 mL/min/1.73 m2 Normal >=59mL/min/ 1.73 m2 [facility] Chem S Globulin (S) [Mass/Vol] 3.9 g/dL Normal 1.4 - 4.0 gm/dL [facility] Glucose [Mass/Vol] 99 mg/dL Normal 55 - 199 mg/dL [facility] Lipase [Catalytic activity/Vol] 47 U/L Normal 13 - 58 unit/L [facility] Potassium [Moles/Vol] 3.6 mmol/L Normal 3.5 - 5.3 mmol/L [facility] Protein [Mass/Vol] 7.0 g/dL Normal 6.0 - 7.8 gm/dL [facility] Sodium [Moles/Vol] 138 mmol/L Normal 135 - 145 mmol/L [facility] Urea nitrogen [Mass/Vol] 24 mg/dL High 5 - 21 mg/dL [facility] Urea nitrogen/Creatinine [Mass ratio] 34 mg/mg High 10 - 20 [facility] CHEMISTRYOrdered By: Aleja Warner on 12-16-2022 Troponin I.cardiac [Mass/Vol] 3.70 pg/mL Low 10.10 - 27.10 pg/mL [facility] CHEMISTRYOrdered By: Lab ROP User on 12-16-2022 Glucose [Mass/Vol] 117 mg/dL High 55 - 99 mg/dL [facility] POC Subsection Comment on above: Result Comment: Isabel royal RN/ POC Device SN [id number] Invalid Interpretation Code [facility] POC Subsection POC User ID [id number] Invalid Interpretation Code [facility] POC Subsection POC Username BRIGHT REYES Invalid Interpretation Code [facility] POC Subsection COAGULATIONOrdered By: Lillian on Mynor on 12-16-2022 Fibrin D-dimer FEU (PPP) [Mass/Vol] 2153 ng/mL FEU Invalid Interpretation Code 215 - 500 ng/mL FEU [facility] Auto Coag Comment on above: Result Comment: Resu lts Called To Abril/ Emma Vo By MARIE And Read Back For Confirmation On 12/16/2022 12:40:13 EDT Results Verified By Repeat Analysis COAGULATIONOrdered By: Molina on Josr on 12-16-2022 aPTT Coag (PPP) [Time] 33.0 s Normal 25.1 - 36.5 second(s) [facility] Auto Coag INR Coag (PPP) [Relative time] 1.2 {INR} Invalid Interpretation Code [facility] Auto Coag PT Coag (PPP) [Time] 13.6 s High 9.4 - 1 2.5 second(s) [facility] Auto Coag HEMATOLOGYOrdered By: SYSTEM SYSTEM on 12-16-2022 Basophils/100 WBC (Bld) 0.3 % Normal 0.0 - 2.0 % [facility] HemeAutoSS Basophils/Leukocytes Auto (Bld) [Pure # fraction] 0.0 E9/L Normal 0.0 - 0.2 E9/L [facility] HemeAutoSS Eosinophils/100 WBC (Bld) 3.2 % Normal 0.0 - 8.0 % [facility] HemeAutoSS Eosinophils/Leukocytes Auto (Bld) [Pure # fraction] 0.2 E9/L Normal 0.0 - 0.5 E9/L [facility] HemeAutoSS Lymphocytes/100 WBC (Bld) 9.3 % Low 14.0 - 50.0 % [facility] HemeAutoSS Lymphocytes/Leukocytes Auto (Bld) [Pure # fraction] 0.5 E9/L Low 1.0 - 4.0 E9/L [facility] HemeAutoSS Monocytes/100 WBC (Bld) 4.3 % Normal 4.0 - 14.0 % [facility] HemeAutoSS Monocytes/Leukocytes Auto (Bld) [Pure # fraction] 0.2 E9/L Normal 0.2 - 1.0 E9/L [facility] HemeAutoSS Neutrophils/100 WBC (Bld) 82.9 % High 36.0 - 75.0 % [facility] HemeAutoSS Neutrophils/Leukocytes Auto (Bld) [Pure # fraction] 4.1 E9/L Normal 2.0 - 7.5 E9/L [facility] HemeAutoSS HEMATOLOGYOrdered By: Shalini Ovalles on 12-16-2022 Erythrocyte distribution width (RBC) [Ratio] 15.5 % High 10.9 - 14.2 % [facility] HemeAutoSS Hematocrit (Bld) [Volume fraction] 37.2 % Normal 34.0 - 46.0 % [facility]eAutoSS Hemoglobin (Bld) [Mass/Vol] 12.3 g/dL Normal 12.0 - 16.0 gm/dL [facility] HemeAutoSS MCH (RBC) [Entitic mass] 28.8 pg Normal 27.0 - 34.0 pg [facility]eAutoSS MCHC (RBC) [Mass/Vol] 33.0 g/dL Normal 31.4 - 36.0 gm/dL [facility]eAuto[facility] MCV (RBC) [Entitic vol] 87.1 fL Normal 80.0 - 100.0 fL [facility] HemeAutoSS Platelet mean volume (Bld) [Entitic vol] 7.8 fL Normal 6.4 - 10.8 fL [facility] HemeAutoSS Platelets (Bld) [#/Vol] 136.0 E9/L Low 150. 0 - 500.0 E9/L [facility]eAutoSS RBC (Bld) [#/Vol] 4.3 E12/L Normal 4.3 - 5.9 E12/L [facility] HemeAutoSS WBC corrected for nucl RBC Auto (Bld) [#/Vol] 5.0 E9/L Normal 4.0 - 11.0 E9/L [facility] HemeAutoSS Laboratory - Microbiology an d Antimicrobial susceptibilityOrdered By: Nela Osie on 12-16-2022 Bacteria identified Cx Nom (U) 1,000 cfu/ml Mixed skin contaminants [facility] URINALYSISOrdered By: Shalini Ovalles on 12-16-2022 Bilirubin Ql (U) Negative (12/16/22 4:33 AM) Normal Negative [facility] UA Auto SS Clarity (U) Clear (12/16/22 4:33 AM) Normal Clear [facility] UA Auto SS Color (U) Yellow (12/16/22 4:33 AM) Normal Yellow [facility] UA Auto SS Epithelial cells.squamous LM.HPF (Urine sed) [#/Area] 0-2 /HPF Normal 0-2/HPF [facility] UA Auto SS Glucose Test strip (U) [Mass/Vol] Negative (12/16/22 4:33 AM) Normal Negative [facility] UA Auto SS Hemoglobin Ql (U) Negative (12/16/22 4:33 AM) Normal Negative [facility] UA Auto SS Ketones (U) [Mass/Vol] Negative (12/16/22 4:33 AM) Normal Negative [facility] UA Auto SS [place].plasma/[place]. RBC (Bld) [Mass ratio] 0-3 /HPF Normal 0-3/HPF [facility] UA Auto SS Mucus Ql (Urine sed) Trace (12/16/22 4:33 AM) Normal [facility] UA Auto SS Nitrite Ql (U) Negative (12/16/22 4:33 AM) Normal Negative [facility] UA Auto SS pH (U) 7.0 *NA* (12/16/22 4:33 AM) Invalid Interpretation Code 5.0 - 9.0 [facility] UA Auto SS Protein (U) [Mass/Vol] Negative (12/16/22 4:33 AM) Normal Negative [facility] UA Auto SS Specific gravity (U) [Rel density] 1.010 *NA* (12/16/22 4:33 AM) Invalid Interpretation Code 1.005 - 1.030 [facility] UA Auto SS UA Spec Desc Clean Catch (12/16/22 4:33 AM) Normal [facility] UA Auto SS Urobilinogen Qn (U) [id number] {Donna'U}/dL Normal 0.0 - 1.0 EU/dL [facility] UA Auto SS WBC Auto Ql (U) 1+ *ABN* (12/16/22 4:33 AM) Invalid Interpretation Code Negative [facility] UA Auto SS WBC LM.HPF (Urine sed) [#/Area] 0-5 /HPF Normal 0-5/HPF [facility] UA Auto SS Alanine aminotransferase [En zymatic activity/volume] in Serum or PlasmaOrdered By: Mignon Childress on 12-14-2022 ALT [Catalytic activity/Vol] 14 U/L 7-52 [facility] Albumin [Mass/volume] in Ser um or Plasma by Bromocresol green (BCG) dye binding methoOrdered By: Mignon Childress on 12-14-2022 Albumin BCG dye [Mass/Vol] 2.9 g/dL 3.5-5.7 [facility] Alkaline phosphatase [Enzyma tic activity/volume] in Serum or PlasmaOrdered By: Mignon Childress on 12-14-2022 ALP [Catalytic activity/Vol] 73 U/L 34-104 [facility] Aspartate aminotransferase [ Enzymatic activity/volume] in Serum or PlasmaOrdered By: Mignon Childress on 12-14-2022 AST [Catalytic activity/Vol] 23 U/L 13-39 [facility] Basophils Auto (Bld) [#/Vol] Ordered By: Mignon Childress on 12-14-2022 Basophils (Bld) [#/Vol] 0.0 10*3/uL 0.0-0.2 [facility] Basophils/100 WBC Auto (Bld) Ordered By: Mignon Childress on 12-14-2022 Basophils/100 WBC (Bld) 0.8 % . [facility] Bilirubin.total [Mass/volume ] in Serum or PlasmaOrdered By: Mignon Childress on 12-14-2022 Bilirubin [Mass/Vol] 0.6 mg/dL 0.3-1.0 [facility] Calcium [Mass/volume] in Ser um or PlasmaOrdered By: Mignon Childress on 12-14-2022 Calcium [Mass/Vol] 8.0 mg/dL 8.6-10.3 [facility] Carbon dioxide, total [Moles /volume] in Serum or PlasmaOrdered By: Mignon Childress on 12-14-2022 CO2 [Moles/Vol] 26.4 mmol/L 21.0-31.0 [facility] Chloride [Moles/volume] in S shayla or PlasmaOrdered By: Mignon Childress on 12-14-2022 Chloride [Moles/Vol] 108 mmol/L 98-107 [facility] Complete Blood Count Auto Di ffon 12-14-2022 Basophils (Bld) [#/Vol] 0.0 10*3/uL Normal 0.0-0.2 [facility] Comment on above: Result Comment: PERF ORMED BY: [place] [address] PATHOLOGIST MANAGER [employer]LEMENTATION LAST DAWKINS M.D. Performed By: #### M G, TRIG, CBC, PHOS, CMP #### [address] Basophils/100 WBC (Bld) 0.8 % Normal . [facility] Comment on above: Performed By: #### M G, TRIG, CBC, PHOS, CMP #### [address] Eosinophils (Bld) [#/Vol] 0.6 10*3/uL High 0.0-0.45 [facility] Comment on above: Performed By: #### M G, TRIG, CBC, PHOS, CMP #### [address] Eosinophils/100 WBC (Bld) 10.9 % Normal . [facility] Comment on above: Performed By: #### M G, TRIG, CBC, PHOS, CMP #### [address] Erythrocyte distribution width (RBC) [Ratio] 15.4 % High 11.9-15.3 [facility] Comment on above: Performed By: #### M G, TRIG, CBC, PHOS, CMP #### [address] Hematocrit (Bld) [Volume fraction] 33.6 % Low 34.0-46.4 [facility] Comment on above: Performed By: #### M G, TRIG, CBC, PHOS, CMP #### [address] Hemoglobin (Bld) [Mass/Vol] 11.1 g/dL Low 11.8-15.4 [facility] Comment on above: Performed By: #### M G, TRIG, CBC, PHOS, CMP #### [address] Lymphocytes (Bld) [#/Vol] 1.5 10*3/uL Normal 1.00-4.8 [facility] Comment on above: Performed By: #### M G, TRIG, CBC, PHOS, CMP #### [address] Lymphocytes/100 WBC (Bld) 27.5 % Normal . [facility] Comment on above: Performed By: #### M G, TRIG, CBC, PHOS, CMP #### [address] MCH (RBC) [Entitic mass] 29.1 pg Normal 24.7-34.3 [facility] Comment on above: Performed By: #### M G, TRIG, CBC, PHOS, CMP #### [address] MCV (RBC) [Entitic vol] 88.3 fL Normal 80-100 [facility] Comment on above: Performed By: #### M G, TRIG, CBC, PHOS, CMP #### [address] Mean Corpuscular HGB Conc 32.9 g/dL Normal 32.0-35.0 [facility] Comment on above: Performed By: #### M G, TRIG, CBC, PHOS, CMP #### [address] Monocytes (Bld) [#/Vol] 0.3 10*3/uL Normal 0.0-0.8 [facility] Comment on above: Performed By: #### M G, TRIG, CBC, PHOS, CMP #### [address] Monocytes/100 WBC (Bld) 5.2 % Normal . [facility] Comment on above: Performed By: #### M G, TRIG, CBC, PHOS, CMP #### [place] [id number] [place] Neutrophils (Bld) [#/Vol] 2.9 10*3/uL Normal 1.8-7.7 [facility] Comment on above: Performed By: #### M G, TRIG, CBC, PHOS, CMP #### [address] Neutrophils/100 WBC (Bld) 55.6 % Normal . [facility] Comment on above: Performed By: #### M G, TRIG, CBC, PHOS, CMP #### [address] NRBC% 0.1 /100{WBC} Normal 0-0.5 [facility] Comment on above: Performed By: #### M G, TRIG, CBC, PHOS, CMP #### [address] Platelet mean volume (Bld) [Entitic vol] 8.5 fL Normal 6.3-10.7 [facility] Comment on above: Performed By: #### M G, TRIG, CBC, PHOS, CMP #### [address] Platelets (Bld) [#/Vol] 147 10*3/uL Low 150-450 [facility] Comment on above: Performed By: #### M G, TRIG, CBC, PHOS, CMP #### [address] RBC (Bld) [#/Vol] 3.81 10*6/uL Normal 3.60-5.00 [facility] Comment on above: Performed By: #### M G, TRIG, CBC, PHOS, CMP #### [place] [address] [place] WBC (Bld) [#/Vol] 5.3 10*3/uL Normal 3.8-11.6 [facility] Comment on above: Performed By: #### M G, TRIG, CBC, PHOS, CMP #### [address] Comprehensive Metabolic Pane elio 12-14-2022 Albumin [Mass/Vol] 2.9 g/dL Low 3.5-5.7 [facility] Comment on above: Performed By: #### M G, TRIG, CBC, PHOS, CMP #### [facility] [address] Albumin/Globulin [Mass ratio] 0.9 {ratio} Normal [facility] Comment on above: Performed By: #### M G, TRIG, CBC, PHOS, CMP #### [facility] [address] ALP [Catalytic activity/Vol] 73 U/L Normal 34-104 [facility] Comment on above: Performed By: #### M G, TRIG, CBC, PHOS, CMP #### [facility] [address] ALT [Catalytic activity/Vol] 14 U/L Normal 7-52 [facility] Comment on above: Performed By: #### M G, TRIG, CBC, PHOS, CMP #### [facility] [address] Anion gap [Moles/Vol] 7.6 mmol/L Normal 6.0-15.0 [facility] Comment on above: Performed By: #### M G, TRIG, CBC, PHOS, CMP #### [facility] [address] [place] [address] AST [Catalytic activity/Vol] 23 U/L Normal 13-39 [facility] Comment on above: Performed By: #### M G, TRIG, CBC, PHOS, CMP #### [facility] [address] [place] [address] [place] Bilirubin [Mass/Vol] 0.6 mg/dL Normal 0.3-1.0 [facility] Comment on above: Performed By: #### M G, TRIG, CBC, PHOS, CMP #### [facility] [address] Calcium [Mass/Vol] 8.0 mg/dL Low 8.6-10.3 [facility] Comment on above: Performed By: #### M G, TRIG, CBC, PHOS, CMP #### [facility] [address] Chloride [Moles/Vol] 108 mmol/L High 98-107 [facility] Comment on above: Performed By: #### M G, TRIG, CBC, PHOS, CMP #### [facility] [address] CO2 [Moles/Vol] 26.4 mmol/L Normal 21.0-31.0 [facility] Comment on above: Performed By: #### M G, TRIG, CBC, PHOS, CMP #### [facility] [address] Creatinine [Mass/Vol] 0.49 mg/dL Low 0.60-1.20 [facility] Comment on above: Performed By: #### M G, TRIG, CBC, PHOS, CMP #### [facility] [address] [place] [address] [place] GFR/1.73 sq M.predicted MDRD (S/P/Bld) [Vol rate/Area] mL/min/{1.73_m2} Normal [facility] Comment on above: Performed By: #### M G, TRIG, CBC, PHOS, CMP #### [facility] [address] Globulin (S) [Mass/Vol] 3.1 g/dL Normal [facility] Comment on above: Performed By: #### M G, TRIG, CBC, PHOS, CMP #### [facility] [address] Glucose [Mass/Vol] 82 mg/dL Normal 70-100 [facility] Comment on above: Result Comment: [place] Glucose Reference Range is dependent on time and content of last meal. Glucose of more than 200 mg/dL in a nonstressed, ambulatory subject supports the diagnosis of Diabetes Mellitus. ADA recommended reference range Performed By: #### M G, TRIG, CBC, PHOS, CMP #### [facility] [address] Potassium [Moles/Vol] 4.0 mmol/L Normal 3.5-5.1 [facility] Comment on above: Performed By: #### M G, TRIG, CBC, PHOS, CMP #### [facility] [address] Protein [Mass/Vol] 6.0 g/dL Low 6.4-8.9 [facility] Comment on above: Performed By: #### M G, TRIG, CBC, PHOS, CMP #### [facility] [address] Sodium [Moles/Vol] 138 mmol/L Normal 136-145 [facility] Comment on above: Performed By: #### M G, TRIG, CBC, PHOS, CMP #### [facility] [address] Urea nitrogen [Mass/Vol] 22 mg/dL Normal 7-25 [facility] Comment on above: Performed By: #### M G, TRIG, CBC, PHOS, CMP #### [facility] [address] [place] [address] Creatinine [Mass/volume] in Serum or PlasmaOrdered By: Mignon Childress on 12-14-2022 Creatinine [Mass/Vol] 0.49 mg/dL 0.60-1.20 [facility] Eosinophils Auto (Bld) [#/Vo l]Ordered By: Mignon Childress on 12-14-2022 Eosinophils (Bld) [#/Vol] 0.6 10*3/uL 0.0-0.45 [facility] Eosinophils/100 WBC Auto (Bl d)Ordered By: Mignon Childress on 12-14-2022 Eosinophils/100 WBC (Bld) 10.9 % . [facility] Erythrocyte distribution wid th Auto (RBC) [Ratio]Ordered By: Mignon Childress on 12-14-2022 Erythrocyte distribution width (RBC) [Ratio] 15.4 % 11.9-15.3 [facility] Globulin Calc (S) [Mass/Vol] Ordered By: Mignon Childress on 12-14-2022 Globulin (S) [Mass/Vol] 3.1 g/dL [facility] Glucose [Mass/volume] in Ser um or PlasmaOrdered By: Mignon Childress on 12-14-2022 Glucose [Mass/Vol] 82 mg/dL 70-100 [facility] Comment on above: ADA recommended refe rence rangeRandom Glucose Reference Range is dependent on time and content of last meal. Glucose of more than 200 mg/dL in a nonstressed, ambulatory subject supports the diagnosis of Diabetes Mellitus. Hematocrit Auto (Bld) [Volum e fraction]Ordered By: Mignon Childress on 12-14-2022 Hematocrit (Bld) [Volume fraction] 33.6 % 34.0-46.4 [facility] Hemoglobin [Mass/volume] in BloodOrdered By: Mignon Childress on 12-14-2022 Hemoglobin (Bld) [Mass/Vol] 11.1 g/dL 11.8-15.4 [facility] Leukocytes [#/volume] correc val for nucleated erythrocytes in Blood by Automated counOrdered By: Mignon Childress on 12-14-2022 WBC corrected for nucl RBC Auto (Bld) [#/Vol] 5.3 10*3/uL 3.8-11.6 [facility] Lymphocytes Auto (Bld) [#/Vo l]Ordered By: Mignon Childress on 12-14-2022 Lymphocytes (Bld) [#/Vol] 1.5 10*3/uL 1.00-4.8 [facility] Lymphocytes/100 WBC Auto (Bl d)Ordered By: Mignon Childress on 12-14-2022 Lymphocytes/100 WBC (Bld) 27.5 % . [facility] MCH Auto (RBC) [Entitic mass ]Ordered By: Mignon Childress on 12-14-2022 MCH (RBC) [Entitic mass] 29.1 pg 24.7-34.3 [facility] MCHC Auto (RBC) [Mass/Vol]Or dered By: Mignon Childress on 12-14-2022 MCHC (RBC) [Mass/Vol] 32.9 g/dL 32.0-35.0 [facility] MCV Auto (RBC) [Entitic vol] Ordered By: Mignon Childress on 12-14-2022 MCV (RBC) [Entitic vol] 88.3 fL 80-100 [facility] Magnesiumon 12-14-2022 Magnesium [Mass/Vol] 2.0 mg/dL Normal 1.9-2.7 [facility] Comment on above: Performed By: #### M G, TRIG, CBC, PHOS, CMP #### [facility] [address] Magnesium [Mass/volume] in S shayla or PlasmaOrdered By: Mignon Childress on 12-14-2022 Magnesium [Mass/Vol] 2.0 mg/dL 1.9-2.7 [facility] Monocytes Auto (Bld) [#/Vol] Ordered By: Mignon Childress on 12-14-2022 Monocytes (Bld) [#/Vol] 0.3 10*3/uL 0.0-0.8 [facility] Monocytes/100 WBC Auto (Bld) Ordered By: Mignon Childress on 12-14-2022 Monocytes/100 WBC (Bld) 5.2 % . [facility] Neutrophils Auto (Bld) [#/Vo l]Ordered By: Mignon Childress on 12-14-2022 Neutrophils (Bld) [#/Vol] 2.9 10*3/uL 1.8-7.7 [facility] Neutrophils/100 WBC Auto (Bl d)Ordered By: Mignon Childress on 12-14-2022 Neutrophils/100 WBC (Bld) 55.6 % . [facility] No Panel InformationOrdered By: Mignon Childress on 12-14-2022 Estimated GFR (CKD-EPI) > 60.0 mL/Min [facility] Creatinine Clearance (Chem N/A [facility] Nucleated erythrocytes [Pres ence] in Blood by Automated countOrdered By: Mignon Childress on 12-14-2022 Nucleated RBC Auto Ql (Bld) 0.1 /100{WBC} 0-0.5 [facility] Phosphate [Mass/volume] in S shayla or PlasmaOrdered By: Mignon Childress on 12-14-2022 Phosphate [Mass/Vol] 2.7 mg/dL 3.7-7.2 [facility] Phosphoruson 12-14-2022 Phosphate [Mass/Vol] 2.7 mg/dL Low 3.7-7.2 [facility] Comment on above: Performed By: #### M G, TRIG, CBC, PHOS, CMP #### [facility] [address] Platelet mean volume Auto (B ld) [Entitic vol]Ordered By: Mignon Childress on 12-14-2022 Platelet mean volume (Bld) [Entitic vol] 8.5 fL 6.3-10.7 [facility] Platelets Auto (Bld) [#/Vol] Ordered By: Mignon Childress on 12-14-2022 Platelets (Bld) [#/Vol] 147 10*3/uL 150-450 [facility] Potassium [Moles/volume] in Serum or PlasmaOrdered By: Mignon Childress on 12-14-2022 Potassium [Moles/Vol] 4.0 mmol/L 3.5-5.1 [facility] Protein [Mass/volume] in Ser um or PlasmaOrdered By: Mignon Childress on 12-14-2022 Protein [Mass/Vol] 6.0 g/dL 6.4-8.9 [facility] RBC Auto (Bld) [#/Vol]Ordere d By: Mignon Childress on 12-14-2022 RBC (Bld) [#/Vol] 3.81 10*6/uL 3.60-5.00 [facility] Serum or plasma albumin/glob ulin mass ratioOrdered By: Mignon Childress on 12-14-2022 Albumin/Globulin [Mass ratio] 0.9 {ratio} [facility] Serum or plasma anion gap de terminationOrdered By: Mignon Childress on 12-14-2022 Anion gap [Moles/Vol] 7.6 mmol/L 6.0-15.0 [facility] Sodium [Moles/volume] in Ser um or PlasmaOrdered By: Mignon Childress on 12-14-2022 Sodium [Moles/Vol] 138 mmol/L 136-145 [facility] Triglyceride [Mass/volume] i n Serum or PlasmaOrdered By: Mignon Childress on 12-14-2022 Triglyceride [Mass/Vol] 92 mg/dL 35-149 [facility] Comment on above: TRIG ATP III CLASSIF ICATIONTRIG less than 150 mg/dL NormalTRIG 150-199 mg/dL Borderline highTRIG 200-500 mg/dL High TRIG greater than 500 mg/dL Very highStandard traceable to the Center for Disease Conrtrol and Prevention (CDC) test method. Triglycerideson 12-14-2022 Triglyceride [Mass/Vol] 92 mg/dL Normal 35-149 [facility] Comment on above: Result Comment: TRIG ATP III CLASSIFICATION TRIG less than 150 mg/dL Normal TRIG 150-199 mg/dL Borderline high TRIG 200-500 mg/dL High TRIG greater than 500 mg/dL Very high Standard traceable to the Center for Disease Conrtrol and Prevention (CDC) test method. PERFORMED BY: [facility] [address] [place] [address] PATHOLOGIST MANAGER IMP[employer]ATION LAST DAWKINS M.D. Performed By: #### M G, TRIG, CBC, PHOS, CMP #### [facility] [address] [place] [id number] [place] Urea nitrogen [Mass/volume] in Serum or PlasmaOrdered By: Mignon Childress on 12-14-2022 Urea nitrogen [Mass/Vol] 22 mg/dL 7-25 [facility] WBC Auto (Bld) [#/Vol]Ordere d By: Mignon Childress on 12-14-2022 WBC (Bld) [#/Vol] 5.3 10*3/uL 3.8-11.6 [facility] Alanine aminotransferase [En zymatic activity/volume] in Serum or PlasmaOrdered By: NON STAFF on 12-08-2022 ALT [Catalytic activity/Vol] 12 U/L Normal 7-52 [facility] Comment on above: Performed By: #### M G, TRIG, CBC, PHOS, CMP #### [facility] [address] [place] [id number] [place] Albumin [Mass/volume] in Ser um or Plasma by Bromocresol green (BCG) dye binding methoOrdered By: NON STAFF on 12-08-2022 Albumin BCG dye [Mass/Vol] 2.9 g/dL 3.5-5.7 [facility] Alkaline phosphatase [Enzyma tic activity/volume] in Serum or PlasmaOrdered By: NON STAFF on 12-08-2022 ALP [Catalytic activity/Vol] 65 U/L Normal 34-104 [facility] Comment on above: Performed By: #### M G, TRIG, CBC, PHOS, CMP #### [address] Aspartate aminotransferase [ Enzymatic activity/volume] in Serum or PlasmaOrdered By: NON STAFF on 12-08-2022 AST [Catalytic activity/Vol] 22 U/L Normal 13-39 [facility] Comment on above: Performed By: #### M G, TRIG, CBC, PHOS, CMP #### [address] Automated basophil %Ordered By: NON STAFF on 12-08-2022 Basophils/100 WBC (Bld) 0.7 % Normal . [facility] Comment on above: Performed By: #### M G, TRIG, CBC, PHOS, CMP #### [address] Automated basophil countOrde red By: NON STAFF on 12-08-2022 Basophils (Bld) [#/Vol] 0.0 10*3/uL Normal 0.0-0.2 [facility] Comment on above: Result Comment: PERF ORMED BY: [address] [place] [address] PATHOLOGIST MA[employer] M.D. Performed By: #### M G, TRIG, CBC, PHOS, CMP #### [address] Automated blood monocyte cou ntOrdered By: NON STAFF on 12-08-2022 Monocytes (Bld) [#/Vol] 0.4 10*3/uL Normal 0.0-0.8 [facility] Comment on above: Performed By: #### M G, TRIG, CBC, PHOS, CMP #### [address] Automated eosinophil %Ordere d By: NON STAFF on 12-08-2022 Eosinophils/100 WBC (Bld) 8.0 % Normal . [facility] Comment on above: Performed By: #### M G, TRIG, CBC, PHOS, CMP #### [address] Automated eosinophil countOr dered By: NON STAFF on 12-08-2022 Eosinophils (Bld) [#/Vol] 0.4 10*3/uL Normal 0.0-0.45 [facility] Comment on above: Performed By: #### M G, TRIG, CBC, PHOS, CMP #### [address] Automated monocyte %Ordered By: NON STAFF on 12-08-2022 Monocytes/100 WBC (Bld) 7.6 % Normal . [facility] Comment on above: Performed By: #### M G, TRIG, CBC, PHOS, CMP #### [address] Automated neutrophil %Ordere d By: NON STAFF on 12-08-2022 Neutrophils/100 WBC (Bld) 62.8 % Normal . [facility] Comment on above: Performed By: #### M G, TRIG, CBC, PHOS, CMP #### [address] Bilirubin.total [Mass/volume ] in Serum or PlasmaOrdered By: NON STAFF on 12-08-2022 Bilirubin [Mass/Vol] 0.9 mg/dL Normal 0.3-1.0 [facility] Comment on above: Performed By: #### M G, TRIG, CBC, PHOS, CMP #### [address] Calcium [Mass/volume] in Ser um or PlasmaOrdered By: NON STAFF on 12-08-2022 Calcium [Mass/Vol] 7.9 mg/dL Low 8.6-10.3 [facility] Comment on above: Performed By: #### M G, TRIG, CBC, PHOS, CMP #### [place] [address] [place] Carbon dioxide, total [Moles /volume] in Serum or PlasmaOrdered By: NON STAFF on 12-08-2022 CO2 [Moles/Vol] 27.5 mmol/L Normal 21.0-31.0 [facility] Comment on above: Performed By: #### M G, TRIG, CBC, PHOS, CMP #### [address] Chloride [Moles/volume] in S shayla or PlasmaOrdered By: NON STAFF on 12-08-2022 Chloride [Moles/Vol] 107 mmol/L Normal 98-107 [facility] Comment on above: Performed By: #### M G, TRIG, CBC, PHOS, CMP #### [address] Complete Blood Count Auto Di ffon 12-08-2022 Mean Corpuscular HGB Conc 33.1 g/dL Normal 32.0-35.0 [facility] Comment on above: Performed By: #### M G, TRIG, CBC, PHOS, CMP #### [address] NRBC% 0.1 /100{WBC} Normal 0-0.5 [facility] Comment on above: Performed By: #### M G, TRIG, CBC, PHOS, CMP #### [address] Comprehensive Metabolic Pane elio 12-08-2022 Albumin [Mass/Vol] 2.9 g/dL Low 3.5-5.7 [facility] Comment on above: Performed By: #### M G, TRIG, CBC, PHOS, CMP #### [place] [address] [place] GFR/1.73 sq M.predicted MDRD (S/P/Bld) [Vol rate/Area] mL/min/{1.73_m2} Normal [facility] Comment on above: Performed By: #### M G, TRIG, CBC, PHOS, CMP #### [address] Creatinine [Mass/volume] in Serum or PlasmaOrdered By: NON STAFF on 12-08-2022 Creatinine [Mass/Vol] 0.54 mg/dL Low 0.60-1.20 [facility] Comment on above: Performed By: #### M G, TRIG, CBC, PHOS, CMP #### [facility] [address] Erythrocyte distribution wid th [Ratio] by Automated countOrdered By: NON STAFF on 12-08-2022 Erythrocyte distribution width (RBC) [Ratio] 15.0 % Normal 11.9-15.3 [facility] Comment on above: Performed By: #### M G, TRIG, CBC, PHOS, CMP #### [facility] [address] Erythrocytes [#/volume] in B lood by Automated countOrdered By: NON STAFF on 12-08-2022 RBC (Bld) [#/Vol] 3.74 10*6/uL Normal 3.60-5.00 [facility] Comment on above: Performed By: #### M G, TRIG, CBC, PHOS, CMP #### [facility] [address] Glucose [Mass/volume] in Ser um or PlasmaOrdered By: NON STAFF on 12-08-2022 Glucose [Mass/Vol] 98 mg/dL Normal 70-100 [facility] Comment on above: ADA recommended refe rence rangeRandom Glucose Reference Range is dependent on time and content of last meal. Glucose of more than 200 mg/dL in a nonstressed, ambulatory subject supports the diagnosis of Diabetes Mellitus. Result Comment: [place] om Glucose Reference Range is dependent on time and content of last meal. Glucose of more than 200 mg/dL in a nonstressed, ambulatory subject supports the diagnosis of Diabetes Mellitus. ADA recommended reference range Performed By: #### M G, TRIG, CBC, PHOS, CMP #### [facility] [address] Hematocrit [Volume Fraction] of Blood by Automated countOrdered By: NON STAFF on 12-08-2022 Hematocrit (Bld) [Volume fraction] 32.9 % Low 34.0-46.4 [facility] Comment on above: Performed By: #### M G, TRIG, CBC, PHOS, CMP #### [facility] [address] [place] [address] Hemoglobin [Mass/volume] in BloodOrdered By: NON STAFF on 12-08-2022 Hemoglobin (Bld) [Mass/Vol] 10.9 g/dL Low 11.8-15.4 [facility] Comment on above: Performed By: #### M G, TRIG, CBC, PHOS, CMP #### [address] Leukocytes [#/volume] correc val for nucleated erythrocytes in Blood by Automated counOrdered By: NON STAFF on 12-08-2022 WBC corrected for nucl RBC Auto (Bld) [#/Vol] 5.1 10*3/uL 3.8-11.6 [facility] Leukocytes [#/volume] in Blo od by Automated countOrdered By: NON STAFF on 12-08-2022 WBC (Bld) [#/Vol] 5.1 10*3/uL Normal 3.8-11.6 [facility] Comment on above: Performed By: #### M G, TRIG, CBC, PHOS, CMP #### [place] [address] [place] Lymphocytes [#/volume] in Bl ood by Automated countOrdered By: NON STAFF on 12-08-2022 Lymphocytes (Bld) [#/Vol] 1.1 10*3/uL Normal 1.00-4.8 [facility] Comment on above: Performed By: #### M G, TRIG, CBC, PHOS, CMP #### [facility] [address] [place] [address] [place] Lymphocytes/100 leukocytes i n Blood by Automated countOrdered By: NON STAFF on 12-08-2022 Lymphocytes/100 WBC (Bld) 20.9 % Normal . [facility] Comment on above: Performed By: #### M G, TRIG, CBC, PHOS, CMP #### [facility] [address] [place] [address] [place] MCH [Entitic mass] by Automa val countOrdered By: NON STAFF on 12-08-2022 MCH (RBC) [Entitic mass] 29.0 pg Normal 24.7-34.3 [facility] Comment on above: Performed By: #### M G, TRIG, CBC, PHOS, CMP #### [address] MCHC Auto (RBC) [Mass/Vol]Or dered By: NON STAFF on 12-08-2022 MCHC (RBC) [Mass/Vol] 33.1 g/dL 32.0-35.0 [facility] MCV [Entitic volume] by Auto mated countOrdered By: NON STAFF on 12-08-2022 MCV (RBC) [Entitic vol] 87.8 fL Normal 80-100 [facility] Comment on above: Performed By: #### M G, TRIG, CBC, PHOS, CMP #### [facility] [address] [place] [address] Magnesium [Mass/volume] in S shayla or PlasmaOrdered By: NON STAFF on 12-08-2022 Magnesium [Mass/Vol] 2.1 mg/dL Normal 1.9-2.7 [facility] Comment on above: Performed By: #### M G, TRIG, CBC, PHOS, CMP #### [facility] [address] [place] [address] Neutrophils [#/volume] in Bl ood by Automated countOrdered By: NON STAFF on 12-08-2022 Neutrophils (Bld) [#/Vol] 3.2 10*3/uL Normal 1.8-7.7 [facility] Comment on above: Performed By: #### M G, TRIG, CBC, PHOS, CMP #### [facility] [address] [place] [address] No Panel InformationOrdered By: NON STAFF on 12-08-2022 Estimated GFR (CKD-EPI) > 60.0 mL/Min [facility] Creatinine Clearance (Chem N/A [facility] Nucleated erythrocytes [Pres ence] in Blood by Automated countOrdered By: NON STAFF on 12-08-2022 Nucleated RBC Auto Ql (Bld) 0.1 /100{WBC} 0-0.5 [facility] PSA Screen (Yearly Only)on 0 12-08-2022 PSA Screen (Yearly Only) < 0.008 Normal [facility] Comment on above: Result Comment: PERF ORMED BY: [place] [id number] PATHOLOGIST MANAGER IMPLEMENTATION LAST DAWKINS M.D. Performed By: #### M G, TRIG, CBC, PHOS, CMP #### [facility] [address] [place] [address] [place] Phosphate [Mass/volume] in S shayla or PlasmaOrdered By: NON STAFF on 12-08-2022 Phosphate [Mass/Vol] 2.4 mg/dL Low 3.7-7.2 [facility] Comment on above: Performed By: #### M G, TRIG, CBC, PHOS, CMP #### [facility] [address] [place] [address] [place] Platelet mean volume [Entiti c volume] in Blood by Automated countOrdered By: NON STAFF on 12-08-2022 Platelet mean volume (Bld) [Entitic vol] 9.4 fL Normal 6.3-10.7 [facility] Comment on above: Performed By: #### M G, TRIG, CBC, PHOS, CMP #### [facility] [address] [place] [address] [place] Platelets [#/volume] in Bloo d by Automated countOrdered By: NON STAFF on 12-08-2022 Platelets (Bld) [#/Vol] 105 10*3/uL Low 150-450 [facility] Comment on above: Performed By: #### M G, TRIG, CBC, PHOS, CMP #### [facility] [address] [place] [address] [place] Potassium [Moles/volume] in Serum or PlasmaOrdered By: NON STAFF on 12-08-2022 Potassium [Moles/Vol] 3.8 mmol/L Normal 3.5-5.1 [facility] Comment on above: Performed By: #### M G, TRIG, CBC, PHOS, CMP #### [address] [place] [address] [place] Prealbumin [Mass/volume] in Serum or PlasmaOrdered By: NON STAFF on 12-08-2022 Prealbumin [Mass/Vol] 6.8 mg/dL Low 17.0-34.0 [facility] Comment on above: Performed By: #### M G, TRIG, CBC, PHOS, CMP #### [address] Prostate specific Ag [Mass/v olume] in Serum or PlasmaOrdered By: NON STAFF on 12-08-2022 Prostate specific Ag [Mass/Vol] ng/mL [facility] Protein [Mass/volume] in Ser um or PlasmaOrdered By: NON STAFF on 12-08-2022 Protein [Mass/Vol] 5.7 g/dL Low 6.4-8.9 [facility] Comment on above: Performed By: #### M G, TRIG, CBC, PHOS, CMP #### [address] Serum globulin measurement b y calculation (mass/volume)Ordered By: NON STAFF on 12-08-2022 Globulin (S) [Mass/Vol] 2.8 g/dL Normal [facility] Comment on above: Performed By: #### M G, TRIG, CBC, PHOS, CMP #### [address] Serum or plasma albumin/glob ulin mass ratioOrdered By: NON STAFF on 12-08-2022 Albumin/Globulin [Mass ratio] 1.0 {ratio} [facility] Comment on above: Performed By: #### M G, TRIG, CBC, PHOS, CMP #### [address] Serum or plasma anion gap de terminationOrdered By: NON STAFF on 12-08-2022 Anion gap [Moles/Vol] 9.3 mmol/L Normal 6.0-15.0 [facility] Comment on above: Performed By: #### M G, TRIG, CBC, PHOS, CMP #### [address] [address] [facility] Sodium [Moles/volume] in Ser um or PlasmaOrdered By: NON STAFF on 12-08-2022 Sodium [Moles/Vol] 140 mmol/L Normal 136-145 [facility] Comment on above: Performed By: #### M G, TRIG, CBC, PHOS, CMP #### [facility] [address] [place] [id number] [facility] Triglyceride [Mass/volume] i n Serum or PlasmaOrdered By: NON STAFF on 12-08-2022 Triglyceride [Mass/Vol] 89 mg/dL Normal 35-149 [facility] Comment on above: TRIG ATP III CLASSIF ICATIONTRIG less than 150 mg/dL NormalTRIG 150-199 mg/dL Borderline highTRIG 200-500 mg/dL High TRIG greater than 500 mg/dL Very highStandard traceable to the Center for Disease Conrtrol and Prevention (CDC) test method. Result Comment: TRIG ATP III CLASSIFICATION TRIG less than 150 mg/dL Normal TRIG 150-199 mg/dL Borderline high TRIG 200-500 mg/dL High TRIG greater than 500 mg/dL Very high Standard traceable to the Center for Disease Conrtrol and Prevention (CDC) test method. PERFORMED BY: [place] [address] PATHOLOGIST MANAGER IMP[employer] LAST DAWKINS M.D. Performed By: #### M G, TRIG, CBC, PHOS, CMP #### [facility] [address] [place], [place] [id number] [facility] Urea nitrogen [Mass/volume] in Serum or PlasmaOrdered By: NON STAFF on 12-08-2022 Urea nitrogen [Mass/Vol] 21 mg/dL Normal 7-25 [facility] Comment on above: Performed By: #### M G, TRIG, CBC, PHOS, CMP #### [facility] [address] [place] [id number] [place] Telephoneon 12-01-2022 Telephone [phone] Lisa Pinto 1980 F Date Provider Department Center 12/01/2022 [place] [facility] No family history on file Normal [facility] CHEMISTRYOrdered By: SYSTEM SYSTEM on 10-11-2022 Anion gap [Moles/Vol] 11 mmol/L Normal 6 - 16 mEq/L [facility] Calcium [Mass/Vol] 8.5 mg/dL Low 8.9 - 11. 1 mg/dL [facility] Chloride [Moles/Vol] 105 mmol/L Normal 101 - 1 11 mmol/L [facility] CO2 [Moles/Vol] 26 mmol/L Normal 21 - 31 mmol/L [facility] Creatinine [Mass/Vol] 0.7 mg/dL Normal 0.5 - 1.3 mg/dL [facility] GFR/1.73 sq M.predicted among non-blacks MDRD (S/P/Bld) [Vol rate/Area] 111 mL/min/1.73 m2 Normal >=59mL/min/ 1.73 m2 [facility] Glucose [Mass/Vol] 98 mg/dL Normal 55 - 199 mg/dL [facility] Potassium [Moles/Vol] 3.9 mmol/L Normal 3.5 - 5.3 mmol/L [facility] Sodium [Moles/Vol] 138 mmol/L Normal 135 - 145 mmol/L [facility] Urea nitrogen [Mass/Vol] 15 mg/dL Normal 5 - 21 mg/dL [facility] Urea nitrogen/Creatinine [Mass ratio] 21 mg/mg High 10 - 20 [facility] HEMATOLOGYOrdered By: SYSTEM SYSTEM on 10-11-2022 Basophils/100 WBC (Bld) 0.7 % Normal 0.0 - 2.0 % [facility] Basophils/Leukocytes Auto (Bld) [Pure # fraction] 0.0 E9/L Normal 0.0 - 0.2 E9/L [facility] Eosinophils/100 WBC (Bld) 4.7 % Normal 0.0 - 8.0 % [facility] Eosinophils/Leukocytes Auto (Bld) [Pure # fraction] 0.3 E9/L Normal 0.0 - 0.5 E9/L [facility] Lymphocytes/100 WBC (Bld) 22.2 % Normal 14.0 - 50.0 % [facility] Lymphocytes/Leukocytes Auto (Bld) [Pure # fraction] 1.4 E9/L Normal 1.0 - 4.0 E9/L [facility] Monocytes/100 WBC (Bld) 6.0 % Normal 4.0 - 14.0 % [facility] Monocytes/Leukocytes Auto (Bld) [Pure # fraction] 0.4 E9/L Normal 0.2 - 1.0 E9/L [facility] Neutrophils/100 WBC (Bld) 66.4 % Normal 36.0 - 75.0 % [facility] Neutrophils/Leukocytes Auto (Bld) [Pure # fraction] 4.2 E9/L Normal 2.0 - 7.5 E9/L [facility] HEMATOLOGYOrdered By: Ritu Dyson on 10-11-2022 Erythrocyte distribution width (RBC) [Ratio] 14.8 % High 10.9 - 14.2 % [facility] Hematocrit (Bld) [Volume fraction] 39.4 % Normal 34.0 - 46.0 % [facility] Hemoglobin (Bld) [Mass/Vol] 13.1 g/dL Normal 12.0 - 16.0 gm/dL [facility] MCH (RBC) [Entitic mass] 29.9 pg Normal 27.0 - 34.0 pg [facility] MCHC (RBC) [Mass/Vol] 33.4 g/dL Normal 31.4 - 36.0 gm/dL [facility] MCV (RBC) [Entitic vol] 89.6 fL Normal 80.0 - 100.0 fL [facility] Platelet mean volume (Bld) [Entitic vol] 8.0 fL Normal 6.4 - 10.8 fL [facility] Platelets (Bld) [#/Vol] 181.0 E9/L Normal 150. 0 - 500.0 E9/L [facility] RBC (Bld) [#/Vol] 4.4 E12/L Normal 4.3 - 5.9 E12/L [facility] WBC corrected for nucl RBC Auto (Bld) [#/Vol] 6.3 E9/L Normal 4.0 - 11.0 E9/L [facility] CHEMISTRYOrdered By: SYSTEM SYSTEM on 07-30-2022 TSH Qn 2.91 m[IU]/L Normal 0.34 - 5.60 mcIU/mL [facility] CHEMISTRYOrdered By: SYSTEM SYSTEM on 07-22-2022 Lactate [Mass/Vol] 1.5 mmol/L Normal 0.5 - 2.2 mmol/L [facility] CHEMISTRYOrdered By: SYSTEM SYSTEM on 07-21-2022 Albumin [Mass/Vol] 3.5 g/dL Normal 3.3 - 5.0 gm/dL [facility] Albumin/Globulin [Mass ratio] 1.0 {ratio} Low 1.1 - 2.2 [facility] ALP [Catalytic activity/Vol] 85 [iU]/d Normal 21 - 98 Int._Unit/L [facility] ALT No additional P-5'-P [Catalytic activity/Vol] 24 [iU]/d Normal 6 - 46 Int._Unit/L [facility] Anion gap [Moles/Vol] 14 mmol/L Normal 6 - 16 mEq/L [facility] AST [Catalytic activity/Vol] 30 [iU]/d Normal 5 - 43 Int._Unit/L [facility] Bilirubin [Mass/Vol] 0.8 mg/dL Normal 0.0 - 1 .1 mg/dL [facility] Bilirubin.direct [Mass/Vol] 0.2 mg/dL Normal 0.1 - 0.4 mg/dL [facility] Bilirubin.indirect [Mass or moles/Vol] 0.6 mg/dL Normal 0.1 - 0.9 mg/dL [facility] Calcium [Mass/Vol] 8.7 mg/dL Low 8.9 - 11. 1 mg/dL [facility] Chloride [Moles/Vol] 107 mmol/L Normal 101 - 1 11 mmol/L [facility] CO2 [Moles/Vol] 21 mmol/L Normal 21 - 31 mmol/L [facility] Creatinine [Mass/Vol] 0.7 mg/dL Normal 0.5 - 1.3 mg/dL [facility] GFR/1.73 sq M.predicted among blacks MDRD (S/P/Bld) [Vol rate/Area] mL/min/1.73 m2 Normal >=59mL/min/ 1.73 m2 [facility] Chem S GFR/1.73 sq M.predicted among non-blacks MDRD (S/P/Bld) [Vol rate/Area] mL/min/1.73 m2 Normal >=59mL/min/ 1.73 m2 [facility] Globulin (S) [Mass/Vol] 3.4 g/dL Normal 1.4 - 4.0 gm/dL [facility] Glucose [Mass/Vol] 115 mg/dL Normal 55 - 199 mg/dL [facility] Lactate [Mass/Vol] 2.4 mmol/L High 0.5 - 2.2 mmol/L [facility] Lipase [Catalytic activity/Vol] 38 U/L Normal 13 - 58 unit/L [facility] Potassium [Moles/Vol] 3.8 mmol/L Normal 3.5 - 5.3 mmol/L [facility] Protein [Mass/Vol] 6.9 g/dL Normal 6.0 - 7.8 gm/dL [facility] Sodium [Moles/Vol] 138 mmol/L Normal 135 - 145 mmol/L [facility] Urea nitrogen [Mass/Vol] 18 mg/dL Normal 5 - 21 mg/dL [facility] Urea nitrogen/Creatinine [Mass ratio] 26 mg/mg High 10 - 20 [facility] HEMATOLOGYOrdered By: SYSTEM SYSTEM on 07-21-2022 Basophils/100 WBC (Bld) 0.4 % Normal 0.0 - 2.0 % [facility] Basophils/Leukocytes Auto (Bld) [Pure # fraction] 0.0 E9/L Normal 0.0 - 0.2 E9/L [facility] Eosinophils/100 WBC (Bld) 4.6 % Normal 0.0 - 8.0 % [facility] Eosinophils/Leukocytes Auto (Bld) [Pure # fraction] 0.4 E9/L Normal 0.0 - 0.5 E9/L [facility] Lymphocytes/100 WBC (Bld) 21.7 % Normal 14.0 - 50.0 % [facility] Lymphocytes/Leukocytes Auto (Bld) [Pure # fraction] 1.7 E9/L Normal 1.0 - 4.0 E9/L [facility] Monocytes/100 WBC (Bld) 5.9 % Normal 4.0 - 14.0 % [facility] Monocytes/Leukocytes Auto (Bld) [Pure # fraction] 0.4 E9/L Normal 0.2 - 1.0 E9/L [facility] Neutrophils/100 WBC (Bld) 67.4 % Normal 36.0 - 75.0 % [facility] Neutrophils/Leukocytes Auto (Bld) [Pure # fraction] 5.1 E9/L Normal 2.0 - 7.5 E9/L [facility] HEMATOLOGYOrdered By: Kp Burks on 07-21-2022 Erythrocyte distribution width (RBC) [Ratio] 15.6 % High 10.9 - 14.2 % [facility] Hematocrit (Bld) [Volume fraction] 44.2 % Normal 34.0 - 46.0 % [facility] Hemoglobin (Bld) [Mass/Vol] 14.3 g/dL Normal 12.0 - 16.0 gm/dL [facility] MCH (RBC) [Entitic mass] 29.2 pg Normal 27.0 - 34.0 pg [facility] MCHC (RBC) [Mass/Vol] 32.4 g/dL Normal 31.4 - 36.0 gm/dL [facility] MCV (RBC) [Entitic vol] 90.2 fL Normal 80.0 - 100.0 fL [facility] Platelet mean volume (Bld) [Entitic vol] 8.3 fL Normal 6.4 - 10.8 fL [facility] Platelets (Bld) [#/Vol] 159.0 E9/L Normal 150. 0 - 500.0 E9/L [facility] RBC (Bld) [#/Vol] 4.9 E12/L Normal 4.3 - 5.9 E12/L [facility] WBC corrected for nucl RBC Auto (Bld) [#/Vol] 7.6 E9/L Normal 4.0 - 11.0 E9/L [facility] CHEMISTRYOrdered By: SYSTEM SYSTEM on 07-15-2022 Amphetamines Screen method >1000 ng/mL Ql (U) Negative (07/15/22 10:16 AM) Normal Negative [facility] Barbiturates Screen Ql (U) Negative (07/15/22 10:16 AM) Normal Negative [facility] Benzodiazepines Ql (U) Negative (07/15/22 10:16 AM) Normal Negative [facility] Cocaine Ql (U) Negative (07/15/22 10:16 AM) Normal Negative [facility] Opiates Screen Ql (U) Negative (07/15/22 10:16 AM) Normal Negative [facility] Phencyclidine Screen method >25 ng/mL Ql (U) Negative (07/15/22 10:16 AM) Normal Negative [facility] Tetrahydrocannabinol Screen method >50 ng/mL Ql (U) Negative (07/15/22 10:16 AM) Normal Negative [facility] CNOVon 08-17-2021 CNOV Office Visit (LOORRM ) -------- LISA PINTO ([id number]) 1980 F Date Time Provider Department 08/17/21 9:30 AM GAMAL YIN During your visit today, we recorded the following information about you: Gamal Yin PA-C 08/18/2021 8:58 AM Signed appt cancelled. Referring Provider: SELF [[id number]] Allergies As of Date: 08/17/2021 Noted Allergy Reaction DARVOCET A500 (PROPOXYPHENE N-REX*09/24/2016 4 - Hives PENICILLINS 07/21/2021 14 - Other: See Comments VANCOMYCIN 07/21/2021 16 - Unknown ZOSYN (PIPERACILLIN-TAZOBACTAM ) 07/21/2021 16 - Unknown Date Reviewed: 07/30/2021 Reviewed by: Cliff Flores DPM - Fully Assessed Primary Visit Diagnosis:Pain in right hip [M25.551] Order(s):XR HIP GENERAL 3V PELV/AP/LAT RIGHT [[id number]] Order #: [id number] FUTURE Prescriptions as of 08/18/2021 - megestrol (MEGACE) 40 mg tablet Take one(1) tablet daily and Increase to twice daily if bleeding worsening - RIVAROXABAN (XARELTO ORAL) Take 20 mg by mouth once daily. - HYDROcodone-acetaminophe n (NORCO) 5-325 mg per tablet Take 1 tablet by mouth every 6 hours as needed. - gabapentin (NEURONTIN) 100 mg capsule Take 100 mg by mouth three times daily. - Multivitamin capsule Take 1 capsule by mouth once daily. - FERROUS SULFATE ORAL Take by mouth. - ALPRAZolam (XANAX) 1 mg tablet Take 1 mg by mouth at bedtime as needed. - metoclopramide HCl (REGLAN) 10 mg tablet Take 10 mg by mouth four times daily. - bumetanide (BUMEX) 1 mg tablet Take 1 mg by mouth once daily. - pantoprazole DR (PROTONIX) 40 mg tablet Take 40 mg by mouth once daily. - metFORMIN ER (FORTAMET) 1,000 mg 24 hr tablet Take 1,000 mg by mouth twice daily with meals. Problem List As Of Date 08/17/2021 Noted Resolved Iron deficiency anemia [D50.9] 09/24/2016 Morbid obesity due to excess calories (HCC) [E6*09/24/2016 Encounter Status:Closed by GAMAL YIN on 08/18/21 [facility] CNOVon 07-21-2021 CNOV Office Visit (ORTHMN ) -------- LISA PINTO ([id number]) 1980 F Date Time Provider Department 07/21/21 11:00 AM PADMINI ELIZONDO During your visit today, we recorded the following information about you: Padmini Elizondo MD 07/21/2021 11:50 AM Signed [facility] STAFF PHYSICIAN NOTE OF PERSONAL INVOLVEMENT IN CARE Resident's history reviewed. I have personally examined the patient and repeated the mays components of the exam/history. The assessment and plan were formulated and discussed with the resident/fellow. Please see my below dicatation for all pertinent highlights, including historical emphasis, clinical exam, tests ordered, and the plan moving forward. See resident's note for additional details. Regarding the plan, we have had an in depth discussion today regarding the current symptomatology and possible causes for the current symptoms. This discussion included a personal review of all the available imaging studies with the patient, pertinent lab values, and highlighting mays findings. I have spent a total time of 45min reviewing all available information, with 30min of that time spent in [id number] time with the patient. Greater than 50% of this visit time was spent in counseling an/or care coordination. This is largely been spent reviewing x-rays/CT imaging, as well as counseling with regard to expectations moving forward from a symptomatic standpoint, weight loss, and anti-inflammatory use. In Summary: Highlights: This is my 1st visit with Lisa, who is here today for evaluation of Right hip pain. Please see a summary, as below: Lisa is here today with inability to ambulate. Has talked with Dr. Burrell in the past (Virtual Visit) H/o DLBCL with involvement in a mass at the right ischium, inferior pubic ramus, right acetabulum with soft tissue component, and a right external iliac lymph node. Dx'd in Apr 2020 -- severe stiffness and pain in the right hip -- sought Rx in [place], [place] and then trx'd to [facility] Biopsy proven (Stage IIE), germinal center type s/p [facility] [id number] (last Rx was in July 2020) Sees palliative medicine and is on Oxycodone + Morphine NSAIDS - none prior to his. No prior injections. Has been having surveillance at [facility] -- in remission currently Primary complaint is persistent pain in the right hip (right buttock, worse with ambulation, no groin pain) She has had no injections Her last PT was in November 2020 -- had a fall and had exacerbation of the right hip pain profile She lives i PMHx: Diffuse large B-cell lymphoma per above, history of DVT/PE on Xarelto (2017), DM (A1c 6.3), morbid obesity (BMI 60) Lives in a facility presently -- has not been home in a long time (previously lived with parents) Smoking status: Nonsmoker Occupation: Not working Hobbies: Visiting dirt bike tracks Exam: Please see my resident note, below, for details. To highlight: Exam was difficult today as she was on a gurney, and given her weight, it was impossible to move her. She points directly over her right ischium as the origin of the pain. She is appropriately conversive, but outside of that I was unable to do any major exam today. She does have obvious lymphedema in bilateral lower extremities, which is largely a harbinger of her morbid obesity. Imaging: Plain film x-ray imaging from 06/04/2021 is reviewed. This shows a chronic appearing process that shows a previous aggressive lytic lesion process in the right ischium, with some heterotopic ossification overgrowth. The acetabulum, proper, shows degenerative changes in the hip with a calcified labrum, and mild joint space loss, bilaterally. There are no concerns for pathologic fracture, all column anatomic landmarks (anterior/posterior) are essentially normal. CT imaging from 06/04/2021 is reviewed. There are changes from a previously treated lymphoma of the right ischium and inferior posterior wall, which has a honeycomb appearance, with mixed lucency and sclerotic changes and coarse trabeculae. There are erosive changes in the ischial tuberosity, with no evident soft tissue mass. The posterior wall, other than the most inferior aspect of it, is showing no signs of involvement. The rest of the acetabulum appears largely normal. She does have moderate arthritic changes with osteophyte formation over the anterior/superior acetabulum, and mild to moderate joint space narrowing on axial views. Plan: - Lisa was referred to me today for evaluation of potential hip replacement surgery. I do not believe that this is a pragmatic consideration, given the lack of symptoms emanating from her hip joint proper, her morbid obesity, and the lack of structural integrity loss to the hip joint proper. - OK for PT to work with Lisa --while she has distorted anatomy around her ischium, which is causing hamstring tendinitis exace (more content not included)... Normal [facility] CBC Auto Differentialon 12- Anisocytosis Ql (Bld) 3+ [facility] Basophils (Bld) [#/Vol] 0.1 10*3/uL 0.0 - 0.2 K/uL [facility] Basophils/100 WBC (Bld) 2.0 % [facility] Eosinophils (Bld) [#/Vol] 0.6 10*3/uL 0.0 - 0.7 K/uL [facility] Eosinophils/100 WBC (Bld) 13 % [facility] Hematocrit (Bld) [Volume fraction] 39.3 % 37.0 - 47.0 % [facility] Hemoglobin.gastrointest inal spec 1 Ql (Stl) 12.7 g/dL 12.0 - 16.0 g/dL [facility] Hypochromia 1+ [facility] Interpretation and review of laboratory results Abnormal [facility] Lymphocytes (Bld) [#/Vol] 1.5 10*3/uL 1.0 - 4.8 K/uL [facility] Lymphocytes/100 WBC (Bld) 32.0 % [facility] MCH (RBC) [Entitic mass] 24.0 pg Low 27.0 - 31.3 pg [facility] MCHC (RBC) [Mass/Vol] 32.2 % Low 33.0 - 37.0 % [facility] MCV (RBC) [Entitic vol] 74.5 fL Low 82.0 - 100.0 fL [facility] Microcytes 1+ [facility] Monocytes (Bld) [#/Vol] 0.1 10*3/uL Low 0.2 - 0.8 K/uL [facility] Monocytes/100 WBC (Bld) 2.8 % [facility] Neutrophils Absolute 2.4 K/uL 1.4 - 6 .5 K/uL [facility] Neutrophils/100 WBC (Bld) 50.0 % [facility] Ovalocytes 1+ [facility] Platelet distribution width (Bld) [Ratio] 20.8 % High 11.5 - 14.5 % [facility] PLATELET SLIDE REVIEW Normal [facility] Platelets (Bld) [#/Vol] 162 10*3/uL 130 - 400 K/uL [facility] Poikilocytes 1+ [facility] RBC (Bld) [#/Vol] 5.28 10*6/uL [facility] WBC (Bld) [#/Vol] 4.8 10*3/uL 4.8 - 10.8 K/uL [facility] CBC With Platelet and Differ entialon 04-23-2021 Anisocytosis Ql (Bld) 3+ Normal [facility] Comment on above: Performed By: #### P T #### [facility] [address] [place] [address] Basophils (Bld) [#/Vol] 0.1 10*3/uL Normal 0.0-0.2 [facility] Comment on above: Performed By: #### P T #### [facility] [address] [place] [address] Basophils/100 WBC (Bld) 2.0 % Normal [facility] Comment on above: Performed By: #### P T #### [facility] [address] [place] [address] Eosinophils (Bld) [#/Vol] 0.6 10*3/uL Normal 0.0-0.7 [facility] Comment on above: Performed By: #### P T #### [facility] [address] [place] [address] Eosinophils/100 WBC (Bld) 13.0 % Normal [facility] Comment on above: Performed By: #### P T #### [facility] [address] [place] [address] Hypochromia 1+ Normal [facility] Comment on above: Performed By: #### P T #### [facility] [address] [place] [address] Lymphocytes (Bld) [#/Vol] 1.5 10*3/uL Normal 1.0-4.8 [facility] Comment on above: Performed By: #### P T #### [facility] [address] [place] [address] Lymphocytes/100 WBC (Bld) 32.0 % Normal [facility] Comment on above: Performed By: #### P T #### [facility] [address] [place] [address] Microcytic 1+ Normal [facility] Comment on above: Performed By: #### P T #### [facility] [address] [place] [address] Monocytes (Bld) [#/Vol] 0.1 10*3/uL Low 0.2-0.8 [facility] Comment on above: Performed By: #### P T #### [facility] [address] [place] [address] Monocytes/100 WBC (Bld) 2.8 % Normal [facility] Comment on above: Performed By: #### P T #### [facility] [address] [place] [address] Neutrophils (Bld) [#/Vol] 2.4 10*3/uL Normal 1.4-6.5 [facility] Comment on above: Performed By: #### P T #### [facility] [address] [place] [address] Neutrophils/100 WBC (Bld) 50.0 % Normal [facility] Comment on above: Performed By: #### P T #### [facility] [address] [place] [address] Ovalocytes 1+ Normal [facility] Comment on above: Performed By: #### P T #### [facility] [address] [place] [address] Platelet Slide Review Normal Normal [facility] Comment on above: Performed By: #### P T #### [facility] [address] [place] [address] Poikilocytosis 1+ Normal [facility] Comment on above: Performed By: #### P T #### [facility] [address] [place] [address] Erythrocyte distribution width (RBC) [Ratio] 20.8 % Critically high 11.5-14.5 [facility] Comment on above: Performed By: #### P T #### [facility] [address] [place] [address] Hematocrit (Bld) [Volume fraction] 39.3 % Normal 37.0-47.0 [facility] Comment on above: Performed By: #### P T #### [facility] [address] [place] [address] Hemoglobin (Bld) [Mass/Vol] 12.7 g/dL Normal 12.0-16.0 [facility] Comment on above: Performed By: #### P T #### [facility] [address] [place] [address] MCH (RBC) [Entitic mass] 24.0 pg Low 27.0-31.3 [facility] Comment on above: Performed By: #### P T #### [facility] [address] [place] [address] MCHC 32.2 % Low 33.0-37.0 [facility] Comment on above: Performed By: #### P T #### [facility] [address] [place] [address] MCV (RBC) [Entitic vol] 74.5 fL Low 82.0-100.0 [facility] Comment on above: Performed By: #### P T #### [facility] [address] [place] [address] Platelets (Bld) [#/Vol] 162 10*3/uL Normal 130-400 [facility] Comment on above: Performed By: #### P T #### [facility] [address] [place] [address] RBC (Bld) [#/Vol] 5.28 10*6/uL Normal 4.20-5.40 [facility] Comment on above: Performed By: #### P T #### [facility] [address] [place] [address] WBC (Bld) [#/Vol] 4.8 10*3/uL Normal 4.8-10.8 [facility] Comment on above: Performed By: #### P T #### [facility] [address] [place] [address] COVID-19on 04-23-2021 SARS-CoV-2 (COVID-19) RNA KARY+probe Ql (Unsp spec) Not detected Normal Not Detect [facility] Comment on above: Result Comment: Rapi d NAAT: Negative results should be treated as presumptive and, if inconsistent with clinical signs and symptoms or necessary for patient management, should be tested with an alternative molecular assay. Negative results do not preclude SARS-CoV-2 infection and should not be used as the sole basis for patient management decisions. This test has been authorized by the FDA under an Emergency Use Authorization (EUA) for use by authorized laboratories. Fact sheet for Healthcare Providers: https://www.fda.gov/media/834722/download Fact sheet for Patients: https://www.fda.gov/media/756638/download METHODOLOGY: Isothermal Nucleic Acid Amplification Performed By: #### P T #### [facility] [address] [facility] [id number] COVID-19, Rapidon 04-23-2021 SARS-CoV-2 (COVID-19) RNA KARY+probe Ql (Unsp spec) Not detected Not Detected [facility] Comment on above: Rapid NAAT: Negative results should be treated as presumptive and, if inconsistent with clinical signs and symptoms or necessary for patient management, should be tested with an alternative molecular assay. Negative results do not preclude SARS-CoV-2 infection and should not be used as the sole basis for patient management decisions. This test has been authorized by the FDA under an Emergency Use Authorization (EUA) for use by authorized laboratories. Fact sheet for Healthcare Providers: https://www.fda.gov/media/532745/download Fact sheet for Patients: https://www.fda.gov/media/685698/download METHODOLOGY: Isothermal Nucleic Acid Amplification [facility] CTA CHEST W WO CONTRASTon CTA CHEST W WO CONTRAST CT PULMONARY ANG IOGRAM WITH INTRAVENOUS CONTRAST MEDIUM. REASON FOR EXAMINATION: CHEST PAIN, SHORTNESS OF BREATH, ANXIETY. HISTORY OF PULMONARY EMBOLI AND DEEP VEIN THROMBOSIS. CURRENTLY NOT RECEIVING ANTICOAGULATION. HISTORY COVID 19 PNEUMONIA. TECHNIQUE: Helical CTA was performed through the chest utilizing 100 ml of Isovue-300 intravenous contrast. Images were obtained with bolus tracking in order to opacify the pulmonary arteries. Thick section coronal MIP 3D reconstructions were performed on a separate workstation. COMPARISON:none FINDINGS: Pulmonary arteries: Suboptimal bolus formation, coupled with beam hardening artifact from large body habitus, precludes evaluation of segmental and subsegmental branches. However, no intraluminal filling defects are identified within the main, right, and left pulmonary arteries. Thoracic aorta: Normal in course and caliber. Cardiac Size: Enlarged. Pericardial effusion: None. Right lung: No nodules, masses, pleural effusion. Groundglass opacities identified in right upper, mid, and lower lobes. Left lung: No nodules, masses, pleural effusion. Groundglass opacity is identified, in left upper and left lower lobe, lesser degree than those found in contralateral side. Lymph nodes: No hilar, mediastinal, or axillary lymph node enlargement. Upper abdomen:Limited imaging upper abdomen shows no gross anomaly. Musculoskeletal:No osteoblastic, and no osteolytic lesions. IMPRESSION: Limited study as discussed. Cannot exclude presence of pulmonary emboli in segmental and subsegmental branches bilaterally. However, no pulmonary emboli are identified within the main, right, and left pulmonary arteries. Mild bilateral asymmetric groundglass opacity. Findings may be secondary to inflammatory or infectious etiology. Findings somewhat atypical covid [address] scans at this facility use dose modulation, iterative reconstruction, and/or weight based dosing when appropriate to reduce radiation dose to as low as reasonably achievable. Interpreted by: Steph Charles MD Signed by: Steph Charles MD 04/23/21 Final result Normal [facility] CTA Chest W WO (PE study)on 04-23-2021 Limited study as discussed. Cannot exclude presence of pulmonary emboli in segmental and subsegmental branches bilaterally. However, no pulmonary emboli are identified within the main, right, and left pulmonary arteries. Mild bilateral asymmetric groundglass opacity. Findings may be secondary to inflammatory or infectious etiology. Findings somewhat atypical covid [address] scans at this facility use dose modulation, iterative reconstruction, and/or weight based dosing when appropriate to reduce radiation dose to as low as reasonably achievable. [facility] RADIOLOGY CT PULMONARY ANGIOGR AM WITH INTRAVENOUS CONTRAST MEDIUM. REASON FOR EXAMINATION: CHEST PAIN, SHORTNESS OF BREATH, ANXIETY. HISTORY OF PULMONARY EMBOLI AND DEEP VEIN THROMBOSIS. CURRENTLY NOT RECEIVING ANTICOAGULATION. HISTORY COVID 19 PNEUMONIA. TECHNIQUE: Helical CTA was performed through the chest utilizing 100 ml of Isovue-300 intravenous contrast. Images were obtained with bolus tracking in order to opacify the pulmonary arteries. Thick section coronal MIP 3D reconstructions were performed on a separate workstation. COMPARISON:none FINDINGS: Pulmonary arteries: Suboptimal bolus formation, coupled with beam hardening artifact from large body habitus, precludes evaluation of segmental and subsegmental branches. However, no intraluminal filling defects are identified within the main, right, and left pulmonary arteries. Thoracic aorta: Normal in course and caliber. Cardiac Size: Enlarged. Pericardial effusion: None. Right lung: No nodules, masses, pleural effusion. Groundglass opacities identified in right upper, mid, and lower lobes. Left lung: No nodules, masses, pleural effusion. Groundglass opacity is identified, in left upper and left lower lobe, lesser degree than those found in contralateral side. Lymph nodes: No hilar, mediastinal, or axillary lymph node enlargement. Upper abdomen:Limited imaging upper abdomen shows no gross anomaly. Musculoskeletal:No osteoblastic, and no osteolytic lesions. [facility] RADIOLOGY Signer, MD Steph - 04/23/2021 CT PULMONARY ANGIOGRAM WITH INTRAVENOUS CONTRAST MEDIUM. REASON FOR EXAMINATION: CHEST PAIN, SHORTNESS OF BREATH, ANXIETY. HISTORY OF PULMONARY EMBOLI AND DEEP VEIN THROMBOSIS. CURRENTLY NOT RECEIVING ANTICOAGULATION. HISTORY COVID 19 PNEUMONIA. TECHNIQUE: Helical CTA was performed through the chest utilizing 100 ml of Isovue-300 intravenous contrast. Images were obtained with bolus tracking in order to opacify the pulmonary arteries. Thick section coronal MIP 3D reconstructions were performed on a separate workstation. COMPARISON:none FINDINGS: Pulmonary arteries: Suboptimal bolus formation, coupled with beam hardening artifact from large body habitus, precludes evaluation of segmental and subsegmental branches. However, no intraluminal filling defects are identified within the main, right, and left pulmonary arteries. Thoracic aorta: Normal in course and caliber. Cardiac Size: Enlarged. Pericardial effusion: None. Right lung: No nodules, masses, pleural effusion. Groundglass opacities identified in right upper, mid, and lower lobes. Left lung: No nodules, masses, pleural effusion. Groundglass opacity is identified, in left upper and left lower lobe, lesser degree than those found in contralateral side. Lymph nodes: No hilar, mediastinal, or axillary lymph node enlargement. Upper abdomen:Limited imaging upper abdomen shows no gross anomaly. Musculoskeletal:No osteoblastic, and no osteolytic lesions. IMPRESSION: Limited study as discussed. Cannot exclude presence of pulmonary emboli in segmental and subsegmental branches bilaterally. However, no pulmonary emboli are identified within the main, right, and left pulmonary arteries. Mild bilateral asymmetric groundglass opacity. Findings may be secondary to inflammatory or infectious etiology. Findings somewhat atypical covid [address] scans at this facility use dose modulation, iterative reconstruction, and/or weight based dosing when appropriate to reduce radiation dose to as low as reasonably achievable. [facility] [employer] Phone: Radiology Study observation (narrative) [facility] [employer] Phone: CTA Chest W WO (PE study)Ord ered By: Steph Charles on 04-23-2021 [facility] [employer] Phone: Comprehensive Metabolic Pane elio 04-23-2021 Albumin [Mass/Vol] 3.8 g/dL Normal 3.5-4.6 [facility] Comment on above: Performed By: #### P T #### [facility] [address] [place] [address] ALP [Catalytic activity/Vol] 86 U/L Normal 40-130 [facility] Comment on above: Performed By: #### P T #### [facility] [address] [place] [address] ALT [Catalytic activity/Vol] 23 U/L Normal 0-33 [facility] Comment on above: Performed By: #### P T #### [facility] [address] [place] [address] Anion gap [Moles/Vol] 9 mmol/L Normal 9-15 [facility] Comment on above: Performed By: #### P T #### [facility] [address] [place] [address] AST [Catalytic activity/Vol] 29 U/L Normal 0-35 [facility] Comment on above: Performed By: #### P T #### [facility] [address] [place] [address] Bilirubin [Mass/Vol] 0.8 mg/dL Critically high 0.2-0.7 [facility] Comment on above: Performed By: #### P T #### [facility] [address] [place] [address] Calcium [Mass/Vol] 9.4 mg/dL Normal 8.5-9.9 [facility] Comment on above: Performed By: #### P T #### [facility] [address] [place] [address] Chloride [Moles/Vol] 103 mmol/L Normal 95-107 [facility] Comment on above: Performed By: #### P T #### [facility] [address] [place] [address] CO2 [Moles/Vol] 26 mmol/L Normal 20-31 [facility] Comment on above: Performed By: #### P T #### [facility] [address] [place] [address] Creatinine [Mass/Vol] 0.60 mg/dL Normal 0.50-0.90 [facility] Comment on above: Performed By: #### P T #### [facility] [address] [place] [address] GFR >60.0 Normal >60 [facility] Comment on above: Result Comment: >60 mL/min/1.73m2 EGFR, calc. for ages 18 and older using the MDRD formula (not corrected for weight), is valid for stable renal function. Performed By: #### P T #### [facility] [address] [place] [address] GFR/1.73 sq M.predicted among blacks MDRD (S/P/Bld) [Vol rate/Area] mL/min/{1.73_m2} Normal >60 [facility] Comment on above: Result Comment: >60 mL/min/1.73m2 EGFR, calc. for ages 18 and older using the MDRD formula (not corrected for weight), is valid for stable renal function. Performed By: #### P T #### [facility] [address] [place] [address] Globulin (S) [Mass/Vol] 2.7 g/dL Normal 2.3-3.5 [facility] Comment on above: Performed By: #### P T #### [facility] [address] [place] [address] Glucose [Mass/Vol] 111 mg/dL Critically high 70-99 [facility] Comment on above: Performed By: #### P T #### [facility] [address] [place] [address] Potassium [Moles/Vol] 3.8 mmol/L Normal 3.4-4.9 [facility] Comment on above: Performed By: #### P T #### [facility] [address] [place] [address] Protein [Mass/Vol] 6.5 g/dL Normal 6.3-8.0 [facility] Comment on above: Performed By: #### P T #### [facility] [address] [place] [address] Sodium [Moles/Vol] 138 mmol/L Normal 135-144 [facility] Comment on above: Performed By: #### P T #### [facility] [address] [place] [address] Urea nitrogen [Mass/Vol] 15 mg/dL Normal 6-20 [facility] Comment on above: Performed By: #### P T #### [facility] [address] [place] [address] Albumin [Mass/Vol] 3.8 g/dL 3.5 - 4.6 g/dL [facility] ALP (Bld) [Catalytic activity/Vol] 86 U/L 40 - 130 U/L [facility] ALT [Catalytic activity/Vol] 23 U/L 0 - 33 U/L [facility] Anion gap [Moles/Vol] 9 mmol/L [facility] AST [Catalytic activity/Vol] 29 U/L 0 - 35 U/L [facility] Bilirubin [Mass/Vol] 0.8 mg/dL High 0.2 - 0 .7 mg/dL [facility] Calcium [Mass/Vol] 9.4 mg/dL 8.5 - 9.9 mg/dL [facility] [employer] Chloride [Moles/Vol] 103 mmol/L [facility] [employer] CO2 [Moles/Vol] 26 mmol/L [facility] Creatinine [Mass/Vol] 0.6 mg/dL 0.50 - 0.90 mg/dL [facility] Free PSA/Total PSA [Mass fraction] 6.5 g/dL 6.3 - 8.0 g/dL [facility] GFR >60.0 >60 [facility] Comment on above: >60 mL/min/1.73m2 EG FR, calc. for ages 18 and older using the MDRD formula (not corrected for weight), is valid for stable renal function. GFR Non- >60.0 >60 [facility] Comment on above: >60 mL/min/1.73m2 EG FR, calc. for ages 18 and older using the MDRD formula (not corrected for weight), is valid for stable renal function. Globulin (S) [Mass/Vol] 2.7 g/dL 2.3 - 3.5 g/dL [facility] Glucose [Mass/Vol] 111 mg/dL High 70 - 99 mg/dL [facility] Interpretation and review of laboratory results Abnormal [facility] Potassium [Moles/Vol] 3.8 mmol/L [facility] Sodium [Moles/Vol] 138 mmol/L [facility] Urea nitrogen (BldV) [Mass/Vol] 15 mg/dL 6 - 20 mg/dL [facility] Magnesiumon 04-23-2021 Magnesium [Mass/Vol] 1.7 mg/dL Normal 1.7-2.4 [facility] Comment on above: Performed By: #### P T #### [facility] [address] [place] [address] Magnesium [Mass/Vol] 1.7 mg/dL 1.7 - 2 .4 mg/dL [facility] No Panel Informationon 04-23 [facility] Troponinon 04-23-2021 Troponin I.cardiac [Mass/Vol] ng/mL Normal 0.000-0.01 [facility] Comment on above: Result Comment: Meth odology by Troponin T. Performed By: #### P T #### [facility] [address] [place] [address] Troponin I.cardiac [Mass/Vol] ng/mL 0.000 - 0.010 ng/mL [facility] Comment on above: Methodology by Brooks Navarro [facility] Basic Metabolic Panlon 04-14 Anion gap [Moles/Vol] 9 mmol/L Normal 9-18 [facility] Comment on above: Performed By: #### V ITD #### [facility] Routine Lab [address] [place] [phone] #### BMP, CBC #### [place] [phone] Calcium [Mass/Vol] 9.5 mg/dL Normal 8.5-10.5 [facility] Comment on above: Performed By: #### V ITD #### [facility] Routine Lab [address] [place] [phone] #### BMP, CBC #### [address] Chloride [Moles/Vol] 101 mmol/L Normal 98-110 [facility] Comment on above: Performed By: #### V ITD #### [facility] Routine Lab [address] [place] [phone] #### BMP, CBC #### [place] [phone] CO2 [Moles/Vol] 29 mmol/L Normal 23-32 [facility] Comment on above: Performed By: #### V ITD #### [facility] Routine Lab [address] [phone] #### BMP, CBC #### [place] [phone] Creatinine [Mass/Vol] 0.71 mg/dL Normal 0.70-1.40 [facility] Comment on above: Performed By: #### V ITD #### [facility] Routine Lab [address] [phone] #### BMP, CBC #### [place] [phone] eGFR- Amer. >60 Normal >59 [facility] Comment on above: Performed By: #### V ITD #### [facility] Routine Lab [address] [place] [phone] #### BMP, CBC #### [place] [phone] eGFR-All Other Races >60 Normal >59 [facility] Comment on above: Performed By: #### V ITD #### [facility] Routine Lab [address] [place] [phone] #### BMP, CBC #### [place] [phone] Glucose [Mass/Vol] 85 mg/dL Normal 65-100 [facility] Comment on above: Performed By: #### V ITD #### [facility] Routine Lab [address] [phone] #### BMP, CBC #### [place] [phone] Potassium [Moles/Vol] 4.6 mmol/L Normal 3.5-5.0 [facility] Comment on above: Performed By: #### V ITD #### [facility] Routine Lab [address] [place] [phone] #### BMP, CBC #### [place] [phone] Sodium [Moles/Vol] 139 mmol/L Normal 132-148 [facility] Comment on above: Performed By: #### V ITD #### [facility] Routine Lab [address] [phone] #### BMP, CBC #### [place] [phone] Urea nitrogen [Mass/Vol] 12 mg/dL Normal 8-25 [facility] Comment on above: Performed By: #### V ITD #### [facility] Routine Lab [address] [phone] #### BMP, CBC #### [place] [phone] CBCon 04-14-2021 Platelet mean volume (Bld) [Entitic vol] 10.7 fL Normal 9.0-12.7 [facility] Comment on above: Performed By: #### V ITD #### [facility] Routine Lab [facility] [place] [phone] #### BMP, CBC #### [place] [phone] Platelets (Bld) [#/Vol] 186 10*3/uL Normal 150-400 [facility] Comment on above: Performed By: #### V ITD #### [facility] Routine Lab [address] [phone] #### BMP, CBC #### [place] [phone] Absolute nRBC <0.01 Normal <0.01 [facility] Comment on above: Performed By: #### V ITD #### [facility] Routine Lab [facility] [place] [phone] #### BMP, CBC #### [place] [phone] Erythrocyte distribution width (RBC) [Ratio] 20.1 % High 11.5-15.0 [facility] Comment on above: Performed By: #### V ITD #### [facility] Routine Lab [address] [phone] #### BMP, CBC #### [place] [phone] Hematocrit (Bld) [Volume fraction] 41.9 % Normal 36.0-46.0 [facility] Comment on above: Performed By: #### V ITD #### [facility] Routine Lab [facility] [place] [phone] #### BMP, CBC #### [place] [phone] Hemoglobin (Bld) [Mass/Vol] 12.7 g/dL Normal 11.5-15.5 [facility] Comment on above: Performed By: #### V ITD #### [facility] Routine Lab [address] [place], [place] [phone] #### BMP, CBC #### [place] [phone] MCH 23.7 pG Low 26.0-34.0 [facility] Comment on above: Performed By: #### V ITD #### [facility] Routine Lab [address] [place] [phone] #### BMP, CBC #### [place] [phone] MCHC (RBC) [Mass/Vol] 30.3 g/dL Low 30.5-36.0 [facility] Reference [facility] Comment on above: Performed By: #### V ITD #### [facility] Routine Lab [address] [place] [phone] #### BMP, CBC #### [place] [phone] MCV (RBC) [Entitic vol] 78.2 fL Low 80.0-100.0 C [facility] Comment on above: Performed By: #### V ITD #### [facility] Routine Lab [address] [place], [place] [phone] #### BMP, CBC #### [place] [phone] RBC (Bld) [#/Vol] 5.36 10*6/uL High 3.90-5.[address] [facility] Reference Lab Comment on above: Performed By: #### V ITD #### [facility] Routine Lab [address] [phone] #### BMP, CBC #### [place] [phone] WBC (Bld) [#/Vol] 5.73 10*3/uL Normal 3.70-11.[address] [facility] Reference Lab Comment on above: Performed By: #### V ITD #### [facility] Routine Lab [address] [phone] #### BMP, CBC #### [place] [phone] Vitamin D 25 Hydroxyon 04-11 Vitamin D 25 Hydroxy 43.8 ng/mL Normal 31.0-80.0 [facility] Reference Lab Comment on above: Performed By: #### V ITD #### [facility] Routine Lab [address] [phone] #### BMP, CBC #### [place] [phone] Basic Metabolic Panlon 04-09 Anion gap [Moles/Vol] 9 mmol/L Normal 9-18 [facility] Comment on above: Performed By: #### V ITD #### [facility] Routine Lab [address] [phone] #### BMP, CBC #### [place] [phone] Calcium [Mass/Vol] 9.6 mg/dL Normal 8.5-10.5 [facility] Reference [facility] Comment on above: Performed By: #### V ITD #### [facility] Routine Lab [address] [phone] #### BMP, CBC #### [place] [phone] Chloride [Moles/Vol] 102 mmol/L Normal 98-110 [facility] Comment on above: Performed By: #### V ITD #### [facility] Routine Lab [address] [phone] #### BMP, CBC #### [place] [id number] CO2 [Moles/Vol] 29 mmol/L Normal 23-32 [facility] Comment on above: Performed By: #### V ITD #### [facility] Routine Lab [address] [phone] #### BMP, CBC #### [place] [phone] Creatinine [Mass/Vol] 0.69 mg/dL Low 0.70-1.40 [facility] Comment on above: Performed By: #### V ITD #### [facility] Routine Lab [facility] [place] [phone] #### BMP, CBC #### [place] [id number] eGFR- Amer. >60 Normal >59 [facility] Reference [facility] Comment on above: Performed By: #### V ITD #### [facility] Routine Lab [address] [phone] #### BMP, CBC #### [place] [phone] eGFR-All Other Races >60 Normal >59 [facility] Reference [facility] Comment on above: Performed By: #### V ITD #### [facility] Routine Lab [address] [phone] #### BMP, CBC #### [place] [phone] Glucose [Mass/Vol] 80 mg/dL Normal 65-100 [facility] Comment on above: Performed By: #### V ITD #### [facility] Routine Lab [address] [phone] #### BMP, CBC #### [place] [phone] Potassium [Moles/Vol] 4.3 mmol/L Normal 3.5-5.0 [facility] Comment on above: Performed By: #### V ITD #### [facility] Routine Lab [address] [phone] #### BMP, CBC #### [place] [phone] Sodium [Moles/Vol] 140 mmol/L Normal 132-148 [facility] Comment on above: Performed By: #### V ITD #### [facility] Routine Lab [address] [phone] #### BMP, CBC #### [place] [phone] Urea nitrogen [Mass/Vol] 13 mg/dL Normal 8-25 [facility] Comment on above: Performed By: #### V ITD #### [facility] Routine Lab [address] [phone] #### BMP, CBC #### [phone] CBCon 04-09-2021 Absolute nRBC <0.01 Normal <0.01 [facility] Comment on above: Performed By: #### V ITD #### [facility] Routine Lab [address] [phone] #### BMP, CBC #### [place] [phone] Erythrocyte distribution width (RBC) [Ratio] 20.0 % High 11.5-15.0 [facility] Comment on above: Performed By: #### V ITD #### [facility] Routine Lab [address] [place] [phone] #### BMP, CBC #### [place] [phone] Hematocrit (Bld) [Volume fraction] 40.1 % Normal 36.0-46.0 [facility] Comment on above: Performed By: #### V ITD #### [facility] Routine Lab [address] [place], [place] [phone] #### BMP, CBC #### [place] [phone] Hemoglobin (Bld) [Mass/Vol] 12.3 g/dL Normal 11.5-15.5 [facility] Comment on above: Performed By: #### V ITD #### [facility] Routine Lab [address] [place] [phone] #### BMP, CBC #### [place] [id number] MCH 23.4 pG Low 26.0-34.0 [facility] Comment on above: Performed By: #### V ITD #### [facility] Routine Lab [address] [place] [phone] #### BMP, CBC #### [place] [phone] MCHC (RBC) [Mass/Vol] 30.7 g/dL Normal 30.5-36.0 [facility] Comment on above: Performed By: #### V ITD #### [facility] Routine Lab [address] [place] [phone] #### BMP, CBC #### [place] [phone] MCV (RBC) [Entitic vol] 76.4 fL Low 80.0-100.0 [facility] Comment on above: Performed By: #### V ITD #### [facility] Routine Lab [address] [phone] #### BMP, CBC #### [place] [phone] Platelet mean volume (Bld) [Entitic vol] 10.3 fL Normal 9.0-12.7 [facility] Comment on above: Performed By: #### V ITD #### [facility] Routine Lab [facility] [phone] #### BMP, CBC #### [place] [phone] Platelets (Bld) [#/Vol] 211 10*3/uL Normal 150-400 [facility] Comment on above: Performed By: #### V ITD #### [facility] Routine Lab [phone] #### BMP, CBC #### [place] [phone] RBC (Bld) [#/Vol] 5.25 10*6/uL High 3.90-5.[address] [facility] Reference Lab Comment on above: Performed By: #### V ITD #### [facility] Routine Lab [address] [phone] #### BMP, CBC #### [place] [phone] WBC (Bld) [#/Vol] 4.31 10*3/uL Normal 3.70-11.[address] [facility] Reference [facility] Comment on above: Performed By: #### V ITD #### [facility] Routine Lab [address] [phone] #### BMP, CBC #### [place] [phone] Basic Metabolic Panlon 04-07 Anion gap [Moles/Vol] 10 mmol/L Normal 9-18 [facility] Comment on above: Performed By: #### B MP #### [place] [phone] Calcium [Mass/Vol] 9.3 mg/dL Normal 8.5-10.5 [facility] Comment on above: Performed By: #### B MP #### [place] [phone] Chloride [Moles/Vol] 102 mmol/L Normal 98-110 [facility] Comment on above: Performed By: #### B MP #### [place] [phone] CO2 [Moles/Vol] 29 mmol/L Normal 23-32 [facility] Comment on above: Performed By: #### B MP #### [place] [phone] Creatinine [Mass/Vol] 0.69 mg/dL Low 0.70-1.40 [facility] Comment on above: Performed By: #### B MP #### [place] [address] eGFR- Amer. >60 Normal >59 [facility] Comment on above: Performed By: #### B MP #### [place] [phone] eGFR-All Other Races >60 Normal >59 [facility] Comment on above: Performed By: #### B MP #### [place] [phone] Glucose [Mass/Vol] 83 mg/dL Normal 65-100 [facility] Comment on above: Performed By: #### B MP #### [place] [phone] Potassium [Moles/Vol] 4.3 mmol/L Normal 3.5-5.0 [facility] Comment on above: Performed By: #### B MP #### [place] [address] Sodium [Moles/Vol] 141 mmol/L Normal 132-148 [facility] Comment on above: Performed By: #### B MP #### [place] [address] Urea nitrogen [Mass/Vol] 14 mg/dL Normal 8-25 [facility] Comment on above: Performed By: #### B MP #### [place] [address] COVID, Flu A+B, +RSV, Routin damon 04-07-2021 SARS-CoV-2 (COVID-19) RNA KARY+probe Ql (Unsp spec) Abnormal Negative for COVID19 (SARS CoV2) by RT-PCR or equival [facility] Comment on above: Result Comment: Posi tive for This test was developed and its performance characteristics determined by [facility] [place]. This test has been authorized by FDA under an Emergency Use Authorization (EUA). This test has been validated in accordance with the FDA's Guidance Document Policy for Diagnostics Testing in Laboratories Certified to Perform High Complexity Testing under CLIA prior to Emergency use Authorization for Coronavirus Disease 2019 during the Public Health Emergency issued on July 07, 2019. Test performed by [facility], [facility] [place], [address] [place] [id number]. COVID19 (SARS This test was developed and its performance characteristics determined by [facility] [place]. This test has been authorized by FDA under an Emergency Use Authorization (EUA). This test has been validated in accordance with the FDA's Guidance Document Policy for Diagnostics Testing in Laboratories Certified to Perform High Complexity Testing under CLIA prior to Emergency use Authorization for Coronavirus Disease 2019 during the Public Health Emergency issued on July 07, 2019. Test performed by [facility], [facility], [address] [address]. CoV2) by RT-PCR This test was developed and its performance characteristics determined by [facility]. This test has been authorized by [facility] under an Emergency Use Authorization (EUA). This test has been validated in accordance with the FDA's Guidance Document Policy for Diagnostics Testing in Laboratories Certified to Perform High Complexity Testing under CLIA prior to Emergency use Authorization for Coronavirus Disease 2019 during the Public Health Emergency issued on July 07, 2019. Test performed by [facility], [facility], [address] [address]. or equivalent This test was developed and its performance characteristics determined by [facility]. This test has been authorized by FDA under an Emergency Use Authorization (EUA). This test has been validated in accordance with the FDA's Guidance Document Policy for Diagnostics Testing in Laboratories Certified to Perform High Complexity Testing under CLIA prior to Emergency use Authorization for Coronavirus Disease 2019 during the Public Health Emergency issued on July 07, 2019. Test performed by [facility], [facility], [address] [address]. ethod.(*) This test was developed and its performance characteristics determined by [facility]. This test has been authorized by FDA under an Emergency Use Authorization (EUA). This test has been validated in accordance with the FDA's Guidance Document Policy for Diagnostics Testing in Laboratories Certified to Perform High Complexity Testing under CLIA prior to Emergency use Authorization for Coronavirus Disease 2019 during the Public Health Emergency issued on July 07, 2019. Test performed by [facility], [facility], [address] [id number]. Performed By: #### C [facility] #### [place] [address] Influenza A PCR Normal [facility] Comment on above: Result Comment: Nega tive for This test was developed and its performance characteristics determined by [facility] [place] ([facility]). It has not been cleared or approved by the FDA. RT PLMI is regulated under CLIA as qualified to perform high complexity testing. This test is used for clinical purposes. It should not be regarded as investigational or for research. Influenza A by This test was developed and its performance characteristics determined by [facility] [place] ([facility]). It has not been cleared or approved by the FDA. RT [facility] is regulated under CLIA as qualified to perform high complexity testing. This test is used for clinical purposes. It should not be regarded as investigational or for research. RT PCR This test was developed and its performance characteristics determined by [facility] [place] ([facility]). It has not been cleared or approved by the FDA. RT PLPR is regulated under CLIA as qualified to perform high complexity testing. This test is used for clinical purposes. It should not be regarded as investigational or for research. Performed By: #### C VFLRS #### [place] [address] Influenza B PCR FLBNEG [facility] Comment on above: Performed By: #### C VFLRS #### [place] [address] RSV PCR RSVNG [facility] Comment on above: Performed By: #### C VFLRS #### [place] [id number] COVID, Flu A+B, +RSV, Routin damon 04-06-2021 Specimen source Nom (Unsp spec) WEATHER ANALYST Normal [facility] Comment on above: Performed By: #### C VFLRS #### [place] [id number] SARS-CoV-2 (COVID-19) RNA KARY+probe Ql (Unsp spec) WEATHER ANALYST Normal [facility] Comment on above: Performed By: #### C VFLRS #### [facility] [address] [place] [address] APTTon 03-19-2021 aPTT Coag (Bld) [Time] 30.8 s [facility] Comment on above: Effective 03/12/2020: Heparin Therapeutic Range: 64.0 98.0 seconds. Brain Natriuretic Peptideon 03-19-2021 Natriuretic peptide B (Bld) [Mass/Vol] 44 pg/mL [facility] Comment on above: NT-pro BNP ACUTE Int erpretive Guidelines: Age Cutoff for Heart Failure Less than 50 yrs 450 pg/mL 50-75 yrs 900 pg/mL Greater than 75 yrs 1800 pg/mL NT-pro BNP NON-ACUTE Interpretive Guidelines: Age Reference Range Less than 74 yrs 0-125 pg/mL Greater than 74 yrs 0-450 pg/mL Other possible causes of an elevated NT-proBNP include: cardiac ischemia, acute coronary syndrome, COPD, pneumonia, atrial fibrillation, pulmonary emboli, pulmonary hypertension, pericarditis Reference: Maria Luisa Braden et al. NT-proBNP testing for diagnosis and short-term prognosis in acute destabilized HF: an international pooled analysis of 1256 patients. Heart Journal. 2006;27:330-337 CBC Auto Differentialon 03-09 Anisocytosis Ql (Bld) 2+ [facility] Basophils (Bld) [#/Vol] 0.0 10*3/uL 0.0 - 0.2 K/uL [facility] Basophils/100 WBC (Bld) 0.6 % [facility] Eosinophils (Bld) [#/Vol] 0.4 10*3/uL 0.0 - 0.7 K/uL [facility] Eosinophils/100 WBC (Bld) 8.3 % [facility] Hematocrit (Bld) [Volume fraction] 38.5 % 37.0 - 47.0 % [facility] Hemoglobin.gastrointest inal spec 1 Ql (Stl) 12.2 g/dL 12.0 - 16.0 g/dL [facility] Hypochromia 1+ [facility] Interpretation and review of laboratory results Abnormal [facility] Lymphocytes (Bld) [#/Vol] 0.8 10*3/uL Low 1.0 - 4.8 K/uL [facility] Lymphocytes/100 WBC (Bld) 17.0 % [facility] MCH (RBC) [Entitic mass] 23.2 pg Low 27.0 - 31.3 pg [facility] MCHC (RBC) [Mass/Vol] 31.7 % Low 33.0 - 37.0 % [facility] MCV (RBC) [Entitic vol] 73.3 fL Low 82.0 - 100.0 fL [facility] Microcytes 2+ [facility] Monocytes (Bld) [#/Vol] 0.3 10*3/uL 0.2 - 0.8 K/uL [facility] Monocytes/100 WBC (Bld) 7.3 % [facility] Neutrophils Absolute 3.1 K/uL 1.4 - 6 .5 K/uL [facility] Neutrophils/100 WBC (Bld) 66.8 % [facility] Ovalocytes 1+ [facility] Platelet distribution width (Bld) [Ratio] 21.9 % High 11.5 - 14.5 % [facility] Platelets (Bld) [#/Vol] 169 10*3/uL 130 - 400 K/uL [facility] RBC (Bld) [#/Vol] 5.26 10*6/uL [facility] WBC (Bld) [#/Vol] 4.7 10*3/uL Low 4.8 - 10.8 K/uL [facility] CBC With Platelet and Differ entialon 03-19-2021 Anisocytosis Ql (Bld) 2+ Normal [facility] Comment on above: Performed By: #### C BCWD #### [facility] [address] [place] [address] Hypochromia 1+ Normal [facility] Comment on above: Performed By: #### C BCWD #### [facility] [address] [place] [address] Microcytic 2+ Normal [facility] Comment on above: Performed By: #### C BCWD #### [facility] [address] [place] [address] Ovalocytes 1+ Normal [facility] Comment on above: Performed By: #### C BCWD #### [facility] [address] [place] [address] Basophils (Bld) [#/Vol] 0.0 10*3/uL Normal 0.0-0.2 [facility] Comment on above: Performed By: #### C BCWD #### [facility] [address] [place] [address] Basophils/100 WBC (Bld) 0.6 % Normal [facility] Comment on above: Performed By: #### C BCWD #### [facility] [address] [place] [address] Eosinophils (Bld) [#/Vol] 0.4 10*3/uL Normal 0.0-0.7 [facility] Comment on above: Performed By: #### C BCWD #### [facility] [address] [place] [address] Eosinophils/100 WBC (Bld) 8.3 % Normal [facility] Comment on above: Performed By: #### C BCWD #### [facility] [address] [place] [address] Erythrocyte distribution width (RBC) [Ratio] 21.9 % Critically high 11.5-14.5 [facility] Comment on above: Performed By: #### C BCWD #### [facility] [address] [place] [address] Hematocrit (Bld) [Volume fraction] 38.5 % Normal 37.0-47.0 [facility] Comment on above: Performed By: #### C BCWD #### [facility] [address] [place] [address] Hemoglobin (Bld) [Mass/Vol] 12.2 g/dL Normal 12.0-16.0 [facility] Comment on above: Performed By: #### C BCWD #### [facility] [address] [place] [address] Lymphocytes (Bld) [#/Vol] 0.8 10*3/uL Low 1.0-4.8 [facility] Comment on above: Performed By: #### C BCWD #### [facility] [address] [place] [address] Lymphocytes/100 WBC (Bld) 17.0 % Normal [facility] Comment on above: Performed By: #### C BCWD #### [facility] [address] [place] [address] MCH (RBC) [Entitic mass] 23.2 pg Low 27.0-31.3 [facility] Comment on above: Performed By: #### C BCWD #### [facility] [address] [place] [address] MCHC 31.7 % Low 33.0-37.0 [facility] Comment on above: Performed By: #### C BCWD #### [facility] [address] [place] [address] MCV (RBC) [Entitic vol] 73.3 fL Low 82.0-100.0 [facility] Comment on above: Performed By: #### C BCWD #### [facility] [address] [place] [address] Monocytes (Bld) [#/Vol] 0.3 10*3/uL Normal 0.2-0.8 [facility] Comment on above: Performed By: #### C BCWD #### [facility] [address] [place] [address] Monocytes/100 WBC (Bld) 7.3 % Normal [facility] Comment on above: Performed By: #### C BCWD #### [facility] [address] [place] [address] Neutrophils (Bld) [#/Vol] 3.1 10*3/uL Normal 1.4-6.5 [facility] Comment on above: Performed By: #### C BCWD #### [facility] [address] [place] [address] Neutrophils/100 WBC (Bld) 66.8 % Normal [facility] Comment on above: Performed By: #### C BCWD #### [facility] [address] [place] [address] Platelets (Bld) [#/Vol] 169 10*3/uL Normal 130-400 [facility] Comment on above: Performed By: #### C BCWD #### [facility] [address] [facility] [address] RBC (Bld) [#/Vol] 5.26 10*6/uL Normal 4.20-5.40 [facility] Comment on above: Performed By: #### C BCWD #### [facility] [address] [facility] [address] WBC (Bld) [#/Vol] 4.7 10*3/uL Low 4.8-10.8 [facility] Comment on above: Performed By: #### C BCWD #### [facility] [address] [facility] [address] COVID-19on 03-19-2021 SARS-CoV-2 (COVID-19) RNA KARY+probe Ql (Unsp spec) Not detected Normal Not Detect [facility] Comment on above: Result Comment: Asiai sally NAAT: Negative results should be treated as presumptive and, if inconsistent with clinical signs and symptoms or necessary for patient management, should be tested with an alternative molecular assay. Negative results do not preclude SARS-CoV-2 infection and should not be used as the sole basis for patient management decisions. This test has been authorized by the FDA under an Emergency Use Authorization (EUA) for use by authorized laboratories. Fact sheet for Healthcare Providers: https://www.fda.gov/media/540028/download Fact sheet for Patients: https://www.fda.gov/media/753478/download METHODOLOGY: Isothermal Nucleic Acid Amplification Performed By: #### C OVRG #### [facility] [address] [place] [address] COVID-19, Rapidon 03-19-2021 SARS-CoV-2 (COVID-19) RNA KARY+probe Ql (Unsp spec) Not detected Not Detected [facility] Comment on above: Rapid NAAT: Negative results should be treated as presumptive and, if inconsistent with clinical signs and symptoms or necessary for patient management, should be tested with an alternative molecular assay. Negative results do not preclude SARS-CoV-2 infection and should not be used as the sole basis for patient management decisions. This test has been authorized by the FDA under an Emergency Use Authorization (EUA) for use by authorized laboratories. Fact sheet for Healthcare Providers: https://www.fda.gov/media/075695/download Fact sheet for Patients: https://www.fda.gov/media/132431/download METHODOLOGY: Isothermal Nucleic Acid Amplification [facility] CTA CHEST W WO CONTRASTon CTA CHEST W WO CONTRAST EXAMINATION: [facility] CTA WITH CONTRAST (PULMONARY EMBOLISM PROTOCOL) CLINICAL HISTORY: Chest pain. Shortness of breath. History of pulmonary embolism. Technique: Spiral axial CT acquisition of the chest from the thoracic inlet to the upper abdomen following IV contrast. 2-D images were reconstructed in the sagittal and coronal planes. 3-D MIPS images were generated in the coronal and axial planes. Images were reviewed on the PACS workstation. All images including the 3-D MIPS were personally archived. Contrast: IV administration of 100 ml Isovue [address] scans at this facility use dose modulation, iterative reconstruction, and/or weight based dosing when appropriate to reduce radiation dose to as low as reasonably achievable. Comparison: CTA chest 05/21/2015. RESULT: Limitations: Patient body habitus. Should artifact related to patient body habitus and overlying leads. Respiratory motion. Lines, tubes, and devices: None. Evaluation for thromboembolic disease: No evidence for ACUTE thromboembolic disease involving the right heart chambers, main pulmonary arteries, lobar pulmonary arteries, segmental pulmonary arteries, or visualized subsegmental pulmonary arteries. Few areas of chronic appearing webbing, especially involving the lower lobes, consistent with sequela from chronic thromboembolic disease with some limitation in evaluation due to motion and artifact. Lung parenchyma and pleura: Central airways grossly patent. Areas of ill-defined mosaic attenuation within the lungs bilaterally, especially at the level of the graciela, overall nonspecific. Differential includes atelectasis, pneumonitis, air trapping, artifact, etc. No consolidative opacity. No pleural effusion or pneumothorax. No suspicious pulmonary nodules within limits of the study. Possible few subcentimeter less than 6 mm nodules. Thoracic inlet, heart, and mediastinum: Visualized thyroid unremarkable. No axillary, mediastinal, or hilar lymphadenopathy. Normal thoracic aorta. Pulmonary artery dilated, suggestive of pulmonary hypertension, measuring 36 mm. Normal heart size. No coronary artery calcifications. No pericardial effusion or thickening. Esophagus nondilated. Bones: No acute osseous findings. No destructive osseous lesions. Multilevel bridging osteophytes within the thoracic spine with degenerative changes. Soft tissues: Unremarkable. Upper abdomen: Probable diffuse hepatic steatosis. Cirrhotic/nodular liver morphology. Cholecystectomy. IMPRESSION: No CT evidence for ACUTE pulmonary embolism. Findings of chronic thromboembolic disease with pulmonary hypertension. Areas of ill-defined mosaic attenuation within the lungs bilaterally, especially at the level of the graciela, overall nonspecific. Differential includes atelectasis, pneumonitis, air trapping, artifact, etc. Interpreted by: Divine Sales MD Signed by: Divine Sales MD 03/19/21 Final result Normal [facility] Comprehensive Metabolic Pane elio 03-19-2021 Albumin [Mass/Vol] 3.9 g/dL Normal 3.5-4.6 [facility] Comment on above: Performed By: #### C MP #### [facility] [address] [place] [address] ALP [Catalytic activity/Vol] 94 U/L Normal 40-130 [facility] Comment on above: Performed By: #### C MP #### [facility] [address] [place] [address] ALT [Catalytic activity/Vol] 26 U/L Normal 0-33 [facility] Comment on above: Performed By: #### C MP #### [facility] [address] [place] [address] Anion gap [Moles/Vol] 9 mmol/L Normal 9-15 [facility] Comment on above: Performed By: #### C MP #### [facility] [address] [place] [address] AST [Catalytic activity/Vol] 35 U/L Normal 0-35 [facility] Comment on above: Performed By: #### C MP #### [facility] [address] [place] [address] Bilirubin [Mass/Vol] 0.6 mg/dL Normal 0.2-0.7 [facility] Comment on above: Performed By: #### C MP #### [facility] [address] [place] [address] Calcium [Mass/Vol] 9.2 mg/dL Normal 8.5-9.9 [facility] Comment on above: Performed By: #### C MP #### [facility] [address] [place] [address] Chloride [Moles/Vol] 102 mmol/L Normal 95-107 [facility] Comment on above: Performed By: #### C MP #### [facility] [address] [place] [address] CO2 [Moles/Vol] 26 mmol/L Normal 20-31 [facility] Comment on above: Performed By: #### C MP #### [facility] [address] [place] [address] Creatinine [Mass/Vol] 0.47 mg/dL Low 0.50-0.90 [facility] Comment on above: Performed By: #### C MP #### [facility] [address] [place] [address] GFR >60.0 Normal >60 [facility] Comment on above: Result Comment: >60 mL/min/1.73m2 EGFR, calc. for ages 18 and older using the MDRD formula (not corrected for weight), is valid for stable renal function. Performed By: #### C MP #### [facility] [address] [place] [address] GFR/1.73 sq M.predicted among blacks MDRD (S/P/Bld) [Vol rate/Area] mL/min/{1.73_m2} Normal >60 [facility] Comment on above: Result Comment: >60 mL/min/1.73m2 EGFR, calc. for ages 18 and older using the MDRD formula (not corrected for weight), is valid for stable renal function. Performed By: #### C MP #### [facility] [address] [place] [address] Globulin (S) [Mass/Vol] 2.4 g/dL Normal 2.3-3.5 [facility] Comment on above: Performed By: #### C MP #### [facility] [address] [place] [address] Glucose [Mass/Vol] 99 mg/dL Normal 70-99 [facility] Comment on above: Performed By: #### C MP #### [facility] [address] [place] [address] Potassium [Moles/Vol] 3.9 mmol/L Normal 3.4-4.9 [facility] Comment on above: Performed By: #### C MP #### [facility] [address] [place] [address] Protein [Mass/Vol] 6.3 g/dL Normal 6.3-8.0 [facility] Comment on above: Performed By: #### C MP #### [facility] [address] [place] [address] Sodium [Moles/Vol] 137 mmol/L Normal 135-144 [facility] Comment on above: Performed By: #### C MP #### [facility] [address] [place] [address] Urea nitrogen [Mass/Vol] 11 mg/dL Normal 6-20 [facility] Comment on above: Performed By: #### C MP #### [facility] [address] [place] [address] Albumin [Mass/Vol] 3.9 g/dL 3.5 - 4.6 g/dL [facility] ALP (Bld) [Catalytic activity/Vol] 94 U/L 40 - 130 U/L [facility] ALT [Catalytic activity/Vol] 26 U/L 0 - 33 U/L [facility] Anion gap [Moles/Vol] 9 mmol/L [facility] AST [Catalytic activity/Vol] 35 U/L 0 - 35 U/L [facility] Bilirubin [Mass/Vol] 0.6 mg/dL 0.2 - 0 .7 mg/dL [facility] Calcium [Mass/Vol] 9.2 mg/dL 8.5 - 9.9 mg/dL [facility] Chloride [Moles/Vol] 102 mmol/L [facility] CO2 [Moles/Vol] 26 mmol/L [facility] Creatinine [Mass/Vol] 0.47 mg/dL Low 0.50 - 0.90 mg/dL [facility] Free PSA/Total PSA [Mass fraction] 6.3 g/dL 6.3 - 8.0 g/dL [facility] GFR >60.0 >60 [facility] Comment on above: >60 mL/min/1.73m2 EG FR, calc. for ages 18 and older using the MDRD formula (not corrected for weight), is valid for stable renal function. GFR Non- >60.0 >60 [facility] Comment on above: >60 mL/min/1.73m2 EG FR, calc. for ages 18 and older using the MDRD formula (not corrected for weight), is valid for stable renal function. Globulin (S) [Mass/Vol] 2.4 g/dL 2.3 - 3.5 g/dL [facility] Glucose [Mass/Vol] 99 mg/dL 70 - 99 mg/dL [facility] Interpretation and review of laboratory results Abnormal [facility] Potassium [Moles/Vol] 3.9 mmol/L [facility] Sodium [Moles/Vol] 137 mmol/L [facility] Urea nitrogen (BldV) [Mass/Vol] 11 mg/dL 6 - 20 mg/dL [facility] HCG Qualitative, Serumon hCG Qual Negative [facility] Magnesiumon 03-19-2021 Magnesium [Mass/Vol] 1.8 mg/dL Normal 1.7-2.4 [facility] Comment on above: Performed By: #### M G #### [facility] [address] [place] [address] Magnesium [Mass/Vol] 1.8 mg/dL 1.7 - 2 .4 mg/dL [facility] No Panel Informationon 03-19 [facility] POCT CREATININEon 03-19-2021 Interpretation and review of laboratory results Normal [facility] Phone: POC CREATININE WHOLE BLOOD 0.5 [facility] Phone[facility]: POCT Venouson 03-19-2021 Creatinine [Mass/Vol] 0.5 mg/dL Low 0.6-1.1 [facility] Comment on above: Performed By: #### P T #### [facility] [address] [place] [address] GFR >60 Normal >60 [facility] Comment on above: Result Comment: >60 mL/min/1.73m2 EGFR, calc. for ages 18 and older using the MDRD formula (not corrected for weight), is valid for stable renal function. Performed By: #### P T #### [facility] [address] [place] [address] GFR/1.73 sq M.predicted among blacks MDRD (S/P/Bld) [Vol rate/Area] mL/min/{1.73_m2} Normal >60 [facility] Comment on above: Result Comment: >60 mL/min/1.73m2 EGFR, calc. for ages 18 and older using the MDRD formula (not corrected for weight), is valid for stable renal function. Performed By: #### P T #### [facility] [address] [place] [address] POC Performed on SEE BELOW [facility] Comment on above: Result Comment: Perf ormed on POC Performed By: #### P T #### [facility] [address] [place] [address] POC Sample Type IVAN [facility] Comment on above: Performed By: #### P T #### [facility] [address] [place] [address] Partial Thromboplastin Timeo n 03-19-2021 aPTT Coag (Bld) [Time] 30.8 s Normal 24.4-36.8 [facility] Comment on above: Result Comment: Effe ctive 03/12/2020: Heparin Therapeutic Range: 64.0 ? 98.0 seconds. Performed By: #### P TT #### [facility] [address] [place] [address] Prothrombin Timeon INR Coag (PPP) [Relative time] 1.1 {INR} Normal [facility] Comment on above: Performed By: #### P T #### [facility] [address] [place] [address] PT Coag (PPP) [Time] 14.6 s Normal 12.3-14.9 [facility] Comment on above: Performed By: #### P T #### [facility] [address] [place] [address] Protime-INRon 03-19-2021 INR Coag (Bld) [Relative time] 1.1 {INR} [facility] PT Coag (PPP) [Time] 14.6 s [facility] Serum HCG Qualitativeon 03-09 Serum HCG Qualitative Negative Normal [facility] Comment on above: Performed By: #### S HCG #### [facility] [address] [place] [address] Troponinon 03-19-2021 Troponin I.cardiac [Mass/Vol] ng/mL Normal 0.000-0.01 [facility] Comment on above: Result Comment: Meth odology by Troponin T. Performed By: #### T ROP #### [facility] [address] [place] [address] Troponin I.cardiac [Mass/Vol] ng/mL 0.000 - 0.010 ng/mL [facility] Comment on above: Methodology by Brooks Navarro [facility] Troponin I.cardiac [Mass/Vol] ng/mL Normal 0.000-0.01 [facility] Comment on above: Result Comment: Meth odology by Troponin T. Performed By: #### T ROP #### [facility] [address] [place] [address] Troponin I.cardiac [Mass/Vol] ng/mL 0.000 - 0.010 ng/mL [facility] Comment on above: Methodology by Brooks Navarro XR CHEST PORTABLEon 03-19-20 XR CHEST PORTABLE EXAMINATION: CHEST RADIOGRAPH (PORTABLE SINGLE AP VIEW) Exam Date/Time: 03/19/2021 12:50 AM Clinical History: cough cp sob Comparison: Chest radiograph 11/06/2018 FINDINGS: Cardiomediastinal silhouette: Stable. Lungs and pleura: There are low lung volumes with crowding of pulmonary vasculature. Otherwise, no focal consolidation, significant pleural effusion or pneumothorax. IMPRESSION: No acute cardiopulmonary process. Interpreted by: Amna Rivas MD Signed by: Amna Rivas MD 03/19/21 Final result Normal [facility] proBNPon 03-19-2021 Natriuretic peptide B (Bld) [Mass/Vol] 44 pg/mL Normal [facility] Comment on above: Result Comment: NT-p ro BNP ACUTE Interpretive Guidelines: Age Cutoff for Heart Failure Less than 50 yrs 450 pg/mL 50-75 yrs 900 pg/mL Greater than 75 yrs 1800 pg/mL NT-pro BNP NON-ACUTE Interpretive Guidelines: Age Reference Range Less than 74 yrs 0-125 pg/mL Greater than 74 yrs 0-450 pg/mL Other possible causes of an elevated NT-proBNP include: cardiac ischemia, acute coronary syndrome, COPD, pneumonia, atrial fibrillation, pulmonary emboli, pulmonary hypertension, pericarditis Reference: Maria Luisa Braden, et al. NT-proBNP testing for diagnosis and short-term prognosis in acute destabilized HF: an international pooled analysis of 1256 patients. Heart Journal. 2006;27:330-337 Performed By: #### B NPPR #### [facility] [address] [facility] [id number] Vitamin D 25 Hydroxyon 02-10 Vitamin D 25 Hydroxy 16.8 ng/mL Low 31.0-80.0 [facility] Comment on above: Performed By: #### V ITD #### [facility] Routine Lab [address] [place], [place] [address] #### BMP, TSH, CBC, LIPB #### [facility] [address] [place] [phone] Basic Metabolic Panlon 02-09 Anion gap [Moles/Vol] 13 mmol/L Normal 9-18 [facility] Comment on above: Performed By: #### V ITD #### [facility] Routine Lab [address] [place] [phone] #### BMP, TSH, CBC, LIPB #### [place] [phone] Calcium [Mass/Vol] 9.2 mg/dL Normal 8.5-10.5 [facility] Reference [facility] Comment on above: Performed By: #### V ITD #### [facility] Routine Lab [address] [place] [phone] #### BMP, TSH, CBC, LIPB #### [place] [phone] Chloride [Moles/Vol] 102 mmol/L Normal 98-110 [facility] Comment on above: Performed By: #### V ITD #### [facility] Routine [facility] [address] [place] [phone] #### BMP, TSH, CBC, LIPB #### [place] [phone] CO2 [Moles/Vol] 28 mmol/L Normal 23-32 [facility] Comment on above: Performed By: #### V ITD #### [facility] Routine Lab [address] [place] [phone] #### BMP, TSH, CBC, LIPB #### [place] [phone] Creatinine [Mass/Vol] 0.56 mg/dL Low 0.70-1.40 [facility] Comment on above: Performed By: #### V ITD #### [facility] Routine Lab [address] [place] [phone] #### BMP, TSH, CBC, LIPB #### [phone] eGFR- Amer. >60 Normal >60 [facility] Reference [facility] Comment on above: Performed By: #### V ITD #### [facility] Routine Lab [phone] #### BMP, TSH, CBC, LIPB #### [place] [phone] eGFR-All Other Races >60 Normal >60 [facility] Reference [facility] Comment on above: Performed By: #### V ITD #### [facility] Routine Lab [facility] [place] [phone] #### BMP, TSH, CBC, LIPB #### [place] [phone] Glucose [Mass/Vol] 107 mg/dL High 65-100 [facility] Comment on above: Performed By: #### V ITD #### [facility] Routine Lab [facility] [place] [phone] #### BMP, TSH, CBC, LIPB #### [place] [phone] Potassium [Moles/Vol] 4.0 mmol/L Normal 3.5-5.0 [facility] Comment on above: Performed By: #### V ITD #### [facility] Routine Lab [address] [place] [phone] #### BMP, TSH, CBC, LIPB #### [place] [phone] Sodium [Moles/Vol] 143 mmol/L Normal 132-148 [facility] Comment on above: Performed By: #### V ITD #### [facility] Routine Lab [address] [place] [phone] #### BMP, TSH, CBC, LIPB #### [place] [address] Urea nitrogen [Mass/Vol] 13 mg/dL Normal 8-25 [facility] Comment on above: Performed By: #### V ITD #### [facility] Routine Lab [address] [place], [place] [phone] #### BMP, TSH, CBC, LIPB #### [place] [phone] CBCon 02-09-2021 Absolute nRBC <0.01 Normal <0.01 [facility] Comment on above: Performed By: #### V ITD #### [facility] Routine Lab [address] [place], [place] [phone] #### BMP, TSH, CBC, LIPB #### [address] Erythrocyte distribution width (RBC) [Ratio] 20.7 % High 11.5-15.0 [facility] Comment on above: Performed By: #### V ITD #### [facility] Routine Lab [address] [place], [place] [phone] #### BMP, TSH, CBC, LIPB #### [place] [address] Hematocrit (Bld) [Volume fraction] 36.3 % Normal 36.0-46.0 [facility] Comment on above: Performed By: #### V ITD #### [facility] Routine Lab [address] [place], [place] [phone] #### BMP, TSH, CBC, LIPB #### [place] [phone] Hemoglobin (Bld) [Mass/Vol] 10.7 g/dL Low 11.5-15.5 [facility] Comment on above: Performed By: #### V ITD #### [facility] Routine Lab [address] [place] [phone] #### BMP, TSH, CBC, LIPB #### [place] [phone] MCH 22.7 pG Low 26.0-34.0 [facility] Comment on above: Performed By: #### V ITD #### [facility] Routine Lab [address] [place], [place] [phone] #### BMP, TSH, CBC, LIPB #### [place] [phone] MCHC (RBC) [Mass/Vol] 29.5 g/dL Low 30.5-36.0 [facility] Comment on above: Performed By: #### V ITD #### [facility] Routine Lab [address] [place] [phone] #### BMP, TSH, CBC, LIPB #### [place] [phone] MCV (RBC) [Entitic vol] 76.9 fL Low 80.0-100.0 [facility] Reference Lab Comment on above: Performed By: #### V ITD #### [facility] Routine Lab [address] [place] [phone] #### BMP, TSH, CBC, LIPB #### [place] [phone] Platelet mean volume (Bld) [Entitic vol] 11.2 fL Normal 9.0-12.7 [facility] Comment on above: Performed By: #### V ITD #### [facility] Routine Lab [address] [place] [phone] #### BMP, TSH, CBC, LIPB #### [place] [phone] Platelets (Bld) [#/Vol] 239 10*3/uL Normal 150-400 [facility] Comment on above: Performed By: #### V ITD #### [facility] Routine Lab [address] [place] [phone] #### BMP, TSH, CBC, LIPB #### [place] [phone] RBC (Bld) [#/Vol] 4.72 10*6/uL Normal 3.90-5.[address] [facility] Reference Lab Comment on above: Performed By: #### V ITD #### [facility] Routine Lab [facility] [place] [phone] #### BMP, TSH, CBC, LIPB #### [place] [phone] WBC (Bld) [#/Vol] 4.85 10*3/uL Normal 3.70-11.[address] [facility] Reference Lab Comment on above: Performed By: #### V ITD #### [facility] Routine Lab [facility] [place] [phone] #### BMP, TSH, CBC, LIPB #### [place] [phone] Lipid Panel, [facility] 021 Cholesterol [Mass/Vol] 125 mg/dL Normal <200 [facility] Reference Lab Comment on above: Performed By: #### V ITD #### [facility] Routine Lab [facility] [place] [phone] #### BMP, TSH, CBC, LIPB #### [place] [phone] Cholesterol in HDL [Mass/Vol] 20 mg/dL Low >39 [facility] Lab Comment on above: Performed By: #### V ITD #### [facility] Routine Lab [facility] [place] [phone] #### BMP, TSH, CBC, LIPB #### [place] [address] Cholesterol in LDL [Mass/Vol] 75 mg/dL Normal <100 [facility] Comment on above: Performed By: #### V ITD #### [facility] Routine Lab [address] [place] [phone] #### BMP, TSH, CBC, LIPB #### [place] [address] Cholesterol in VLDL [Mass/Vol] 30 mg/dL High <30 [facility] Comment on above: Performed By: #### V ITD #### [facility] Routine Lab [address] [place] [phone] #### BMP, TSH, CBC, LIPB #### [place] [address] Cholesterol non HDL [Mass/Vol] 105 mg/dL Normal <130 [facility] Comment on above: Performed By: #### V ITD #### [facility] Routine Lab [address] [place] [address] #### BMP, TSH, CBC, LIPB #### [place] [address] LDL:HDL Ratio 3.75 High <2.54 [facility] Comment on above: Performed By: #### V ITD #### [facility] [address] [place] [phone] #### BMP, TSH, CBC, LIPB #### [place] [address] TC:HDL Ratio 6.25 High <5.10 [facility] Comment on above: Performed By: #### V ITD #### [facility] [address] [place] [phone] #### BMP, TSH, CBC, LIPB #### [place] [phone] Triglyceride [Mass/Vol] 152 mg/dL High <150 [facility] Reference Lab Comment on above: Performed By: #### V ITD #### [facility] Routine Lab [address] [place] [phone] #### BMP, TSH, CBC, LIPB #### [phone] Fasting Time 000 hrs Normal [facility] Comment on above: Performed By: #### V ITD #### [facility] Routine Lab [address] [place] [phone] #### BMP, TSH, CBC, LIPB #### [place] [phone] TSHon 02-09-2021 TSH Qn 2.650 m[IU]/L Normal 0.270-4.200 [facility] Comment on above: Performed By: #### V ITD #### [facility] Routine Lab [address] [place] [phone] #### BMP, TSH, CBC, LIPB #### [place] [phone] CBC w/Indiceson 08-04-2020 Erythrocyte distribution width (RBC) [Ratio] 22.8 % High 10.9-14.2 [facility] Comment on above: Performed By: #### 2 [id number] #### [facility] Laboratory [address] [place] [address] Hematocrit (Bld) [Volume fraction] 29.8 % Low 34.0-46.0 [facility] Comment on above: Performed By: #### 2 [id number] #### [facility] [address] [place] [address] Hemoglobin (Bld) [Mass/Vol] 9.5 g/dL Low 12.0-16.0 [facility] Comment on above: Performed By: #### 2 [id number] #### [facility] [address] [place] [address] MCH (RBC) [Entitic mass] 24.3 pg Low 27.0-34.0 [facility] Comment on above: Performed By: #### 2 [id number] #### [facility] [address] [place] [address] MCHC (RBC) [Mass/Vol] 31.8 g/dL Normal 31.4-36.0 [facility] Comment on above: Performed By: #### 2 [id number] #### [facility] [address] [place] [address] MCV (RBC) [Entitic vol] 76.3 fL Low 80.0-100.[address] [facility] Comment on above: Performed By: #### 2 [id number] #### [facility] [address] [place] [address] Platelet mean volume (Bld) [Entitic vol] 8.1 fL Normal 6.4-10.8 [facility] Comment on above: Performed By: #### 2 [id number] #### [facility] [address] [place] [address] Platelets (Bld) [#/Vol] 221.0 E9/L Normal 150.0-500.0 [facility] Comment on above: Performed By: #### 2 [id number] #### [facility] [address] [place] [address] RBC (Bld) [#/Vol] 3.9 E12/L Low 4.3-5.9 [facility] Comment on above: Performed By: #### 2 [id number] #### [facility] [address] [place] [address] WBC corrected for nucl RBC Auto (Bld) [#/Vol] 5.0 E9/L Normal 4.0-11.0 [facility] Comment on above: Performed By: #### 2 [id number] #### [facility] [address] [place] [address] Monitor Recordon 08-04-2020 Monitor Record [id number] :127 Normal [facility] Morphon 08-04-2020 Anisocytosis Ql (Bld) Present Normal [facility] Comment on above: Order Comment: Order Added by Discern Expert. Performed By: #### 2 [id number] #### [facility] [address] [place] [address] Elliptocytes LM Ql (Bld) Present Normal [facility] Comment on above: Order Comment: Order Added by Discern Expert. Performed By: #### 2 143452 #### [facility] [address] [place] [address] Hypochromia Auto Ql (Bld) Present Normal [facility] Comment on above: Order Comment: Order Added by Discern Expert. Performed By: #### 2 [id number] #### [facility] [address] [place] [address] Microcytes Ql (Bld) Present Normal [facility] Comment on above: Order Comment: Order Added by Discern Expert. Performed By: #### 2 051779 #### [facility] [address] [place] [address] Morphology Dann (Bld) [Interp] See Morphology Normal [facility] Comment on above: Order Comment: Order Added by Discern Expert. Performed By: #### 2 663448 #### [facility] [address] [place] [address] Ovalocytes LM Ql (Bld) Present Normal [facility] Comment on above: Order Comment: Order Added by Discern Expert. Performed By: #### 2 [id number] #### [facility] [address] [place] [address] Poikilocytosis Auto Ql (Bld) Present Normal [facility] Comment on above: Order Comment: Order Added by Discern Expert. Performed By: #### 2 526386 #### [facility] [address] [place] [address] Teardrop Cell Present Normal [facility] Comment on above: Order Comment: Order Added by Discern Expert. Performed By: #### 2 525903 #### [facility] [address] [place] [address] PTTon 08-04-2020 aPTT Coag (PPP) [Time] 85.8 second(s) High 25.1-36.5 [facility] Comment on above: Result Comment: Hepa rin therapeutic range (represented by Anti-Factor Xa activity of 0.2 - 0.4 U/mL) corresponds to PTT of 56.6 - 109.0 sec. Performed By: #### 2 654115 #### [facility] [address] [place] [address] Auto Diffon 08-03-2020 Basophils/100 WBC (Bld) 1.3 % Normal 0.0-2.[address] [facility] Comment on above: Order Comment: Order Added by Discern Expert. Performed By: #### 2 070574, [id number], 9467447, 6142351 #### [facility] [address] [place] [address] Basophils/Leukocytes Auto (Bld) [Pure # fraction] 0.1 E9/L Normal 0.0-0.2 [facility] Comment on above: Order Comment: Order Added by Discern Expert. Performed By: #### 2 059873, 15946638, 8110501, 7423524 #### [facility] [address] [place] [address] Eosinophils/100 WBC (Bld) 3.2 % Normal 0.0-8.0 [facility] Comment on above: Order Comment: Order Added by Discern Expert. Performed By: #### 2 614737, 07216300, 2883649, 0088185 #### [facility] [address] [place] [address] Eosinophils/Leukocytes Auto (Bld) [Pure # fraction] 0.2 E9/L Normal 0.0-0.5 [facility] Comment on above: Order Comment: Order Added by Discern Expert. Performed By: #### 2 401941, 49251964, 2541340, 0701808 #### [facility] [address] [place] [address] Lymphocytes/100 WBC (Bld) 15.4 % Normal 14.0-50.0 [facility] Comment on above: Order Comment: Order Added by Discern Expert. Performed By: #### 2 537859, 22763464, 8609699, 1333606 #### [facility] [address] [place] [address] Lymphocytes/Leukocytes Auto (Bld) [Pure # fraction] 0.9 E9/L Low 1.0-4.0 [facility] Comment on above: Order Comment: Order Added by Discern Expert. Performed By: #### 2 225467, 61400771, 6907394, 9155473 #### [facility] [address] [place] [address] Monocytes/100 WBC (Bld) 10.7 % Normal 4.0-14.0 [facility] Comment on above: Order Comment: Order Added by Discern Expert. Performed By: #### 2 266446, 15187743, 5935083, 9304467 #### [facility] [address] [place] [address] Monocytes/Leukocytes Auto (Bld) [Pure # fraction] 0.6 E9/L Normal 0.2-1.0 [facility] Comment on above: Order Comment: Order Added by Discern Expert. Performed By: #### 2 163254, 36618411, 5876426, 2303578 #### [facility] [address] [place] [address] Neutrophils/100 WBC (Bld) 69.4 % Normal 36.0-75.0 [facility] Comment on above: Order Comment: Order Added by Discern Expert. Performed By: #### 2 002421, 06547436, 3312043, 3653744 #### [facility] [address] [place] [address] Neutrophils/Leukocytes Auto (Bld) [Pure # fraction] 4.0 E9/L Normal 2.0-7.5 [facility] Comment on above: Order Comment: Order Added by Discern Expert. Performed By: #### 2 417799, 34665666, 8530498, 9521941 #### [facility] [address] [place] [address] BMPon 08-03-2020 Anion gap [Moles/Vol] 11 mmol/L Normal 6-16 [facility] Comment on above: Performed By: #### 2 992607, 21198038, 9031541, 3053180 #### [facility] [address] [place] [address] Calcium [Mass/Vol] 8.2 mg/dL Low 8.9-11.1 [facility] Comment on above: Performed By: #### 2 977975, 65024291, 0732583, 9332995 #### [facility] [address] [place] [address] Chloride [Moles/Vol] 109 mmol/L Normal 101-111 [facility] Comment on above: Performed By: #### 2 058926, 51173914, 2090952, 1224763 #### [facility] [address] [place] [address] CO2 [Moles/Vol] 24 mmol/L Normal 21-31 [facility] Comment on above: Performed By: #### 2 334229, 05791127, 4196554, 4911880 #### [facility] [address] [place] [address] Creatinine [Mass/Vol] 0.7 mg/dL Normal 0.5-1.3 [facility] Comment on above: Performed By: #### 2 905146, 94007190, 9641414, 4636871 #### [facility] [address] [place] [address] Glucose [Mass/Vol] 135 mg/dL Normal 55-199 [facility] Comment on above: Result Comment: If t his glucose result represents a fasting glucose, interpretation should refer to the following reference range: 55-99 mg/dL Performed By: #### 2 578713, 65153437, 3194121, 4187341 #### [facility] [address] [place] [address] Potassium [Moles/Vol] 3.6 mmol/L Normal 3.5-5.3 [facility] Comment on above: Performed By: #### 2 087609, 02052989, 8741282, 8387935 #### [facility] [address] [place] [address] Sodium [Moles/Vol] 140 mmol/L Normal 135-145 [facility] Comment on above: Performed By: #### 2 000865, 15881695, 9025795, 4920463 #### [facility] [address] [place] [address] Urea nitrogen [Mass/Vol] 17 mg/dL Normal 5-21 [facility] Comment on above: Performed By: #### 2 615758, 74843233, 4969602, 6246789 #### [facility] [address] [place] [address] Urea nitrogen/Creatinine [Mass ratio] 24 No Units High 10-20 [facility] Comment on above: Performed By: #### 2 502499, 07315087, 5992403, 2665744 #### [facility] [address] [place] [address] CBC w/ Auto Diffon Erythrocyte distribution width (RBC) [Ratio] 22.7 % High 10.9-14.2 [facility] Comment on above: Performed By: #### 2 557793, 54589841, 0267012, 8396085 #### [facility] [address] [place] [address] Hematocrit (Bld) [Volume fraction] 29.0 % Low 34.0-46.0 [facility] Comment on above: Performed By: #### 2 014011, 28076148, 1738416, 4162473 #### [facility] [address] [place] [address] Hemoglobin (Bld) [Mass/Vol] 9.1 g/dL Low 12.0-16.0 [facility] Comment on above: Performed By: #### 2 358478, 22022327, 5435781, 8533661 #### [facility] [address] [place] [address] MCH (RBC) [Entitic mass] 24.2 pg Low 27.0-34.0 [facility] Comment on above: Performed By: #### 2 213328, 68578766, 8455836, 3355788 #### [facility] [address] [place] [address] MCHC (RBC) [Mass/Vol] 31.5 g/dL Normal 31.4-36.0 [facility] Comment on above: Performed By: #### 2 949214, 95933126, 7448406, 2109655 #### [facility] [address] [place] [address] MCV (RBC) [Entitic vol] 76.6 fL Low 80.0-100.[address] [facility] Comment on above: Performed By: #### 2 800854, 18161340, 0121882, 8513447 #### [facility] [address] [place] [address] Platelet mean volume (Bld) [Entitic vol] 7.9 fL Normal 6.4-10.8 [facility] Comment on above: Performed By: #### 2 904020, 54491294, 4413109, 1814486 #### [facility] [address] [place] [address] Platelets (Bld) [#/Vol] 213.0 E9/L Normal 150.0-500.0 [facility] Comment on above: Performed By: #### 2 501170, 91863708, 4667178, 2041429 #### [facility] [address] [place] [address] RBC (Bld) [#/Vol] 3.8 E12/L Low 4.3-5.9 [facility] Comment on above: Performed By: #### 2 654185, 78773396, 7973049, 5169645 #### [facility] [address] [place] [address] WBC corrected for nucl RBC Auto (Bld) [#/Vol] 5.8 E9/L Normal 4.0-11.0 [facility] Comment on above: Result Comment: Slid e reviewed by BR. Performed By: #### 2 057428, 79632054, 0895262, 6685450 #### [facility] [address] [place] [address] Fecal WBC Lactoferrinon 07-08 Fecal WBC Lactoferrin Negative Normal Negative [facility] Comment on above: Result Comment: The semi-quantitative detection of elevated levels of fecal lactoferrin is a marker for fecal leukocytes and an indication of intestinal inflammation. Performed By: #### 3 0414687 #### [facility] [address] [place] [address] [id number] 08-03-2020 HbA1c (Bld) [Mass fraction] 6.9 % High <=5.9 [facility] Comment on above: Performed By: #### 2 790024, 71889320, 9077578, 7373553 #### [facility] [address] [place] [address] Interdisciplinary Note - Ethan e Manageron 08-03-2020 Interdisciplinary Note - Packing Machine Pilot Can Router JACINTO Aponte entered room at this time to discuss discharge planning. Patient is alert & involved in plan of care. Labs & diagnostics reviewed. DME discussed. PCP/insurance information verified. Contact information provided with white board updated. Patient is on Heparin drip for DVT, plan to transition to Coumadin. Vascular & wound care consulted. Patient states she is seeing Dr Fishman with Oncology now, last chemo treatment was 07/11/20. States her in April d/t COVID so she is now living with her parents. She is current with [facility] RN/PT/OT, referral to verify services. JACINTO Aponte discussed PT recommendations for SNF, patient tells me she is not going to any rehab/SNF, wants to return home with Home Health. States Mother will be her transportation upon discharge. Anticipated discharge TBD. CRM to follow. Normal [facility] Comment on above: Result Comment: Elec tronically Signed By: David VARGAS, Fay Ann\Date and Time Signed: 08/03/20 13:16 EDT Interdisciplinary Note - PTo n 08-03-2020 Interdisciplinary Note - PT P.T. Evaluation done this date. Pt. with on AM-PAC this date, mainly due to bilat LE pain and fatigue. Currently would recommend SNF but pt. is hopeful to go home with family and home health. Will continue to follow and progress functional activities. Normal [facility] Monitor Recordon 08-03-2020 Monitor Record [id number] :127 Normal [facility] Morphon 08-03-2020 Anisocytosis Ql (Bld) Present Normal [facility] Comment on above: Order Comment: Order Added by Discern Expert. Performed By: #### 2 041479, 19160875, 6832304, 8721773 #### [facility] [address] [place] [address] Hypochromia Auto Ql (Bld) Present Normal [facility] Comment on above: Order Comment: Order Added by Discern Expert. Performed By: #### 2 984713, 95834487, 0904482, 9004992 #### [facility] [address] [place] [address] Microcytes Ql (Bld) Present Normal [facility] Comment on above: Order Comment: Order Added by Discern Expert. Performed By: #### 2 364271, 80314707, 5348591, 9919797 #### [facility] [address] [place] [address] Morphology Dann (Bld) [Interp] See Morphology Normal [facility] Comment on above: Order Comment: Order Added by Discern Expert. Performed By: #### 2 374013, 07049320, 7655092, 0987141 #### [facility] [address] [place] [address] PTTon 08-03-2020 aPTT Coag (PPP) [Time] 82.5 second(s) High 25.1-36.5 [facility] Comment on above: Result Comment: Hepa rin therapeutic range (represented by Anti-Factor Xa activity of 0.2 - 0.4 U/mL) corresponds to PTT of 56.6 - 109.0 sec. Performed By: #### 2 398700 #### [facility] [address] [place] [address] aPTT Coag (PPP) [Time] 75.4 second(s) High 25.1-36.5 [facility] Comment on above: Result Comment: Hepa rin therapeutic range (represented by Anti-Factor Xa activity of 0.2 - 0.4 U/mL) corresponds to PTT of 56.6 - 109.0 sec. Performed By: #### 2 832659, 08654864, 2108284, 5366612 #### [facility] [address] [place] [address] aPTT Coag (PPP) [Time] 102.6 second(s) Abnormal 25.1-36. 5 [facility] Comment on above: Result Comment: Resu lts Verified By Repeat Analysis Results Called To Awa Palafox/ 3S By Ivette Angeles And Read Back For Confirmation On 08/03/2020 05:58:44 EDT. Heparin therapeutic range (represented by Anti-Factor Xa activity of 0.2 - 0.4 U/mL) corresponds to PTT of 56.6 - 109.0 sec. Performed By: #### 2 287636, 53624384, 8266944, 7833756 #### [facility] [address] [place] [address] aPTT Coag (PPP) [Time] s Abnormal 25.1-36.5 [facility] Comment on above: Result Comment: Resu lts Verified By Repeat Analysis Results Called To Awa Marcum/ 3S By Ivette Angeles And Read Back For Confirmation On 08/02/2020 22:12:35 EDT. Heparin therapeutic range (represented by Anti-Factor Xa activity of 0.2 - 0.4 U/mL) corresponds to PTT of 56.6 - 109.0 sec. Performed By: #### 2 793539 #### [facility] [address] [place] [address] Progress Note-Nurseon 2020 Progress Note-Nurse When changing the ra te on the heparin drip at 2315 on 08/02/20 to 13 unit/kg/hr with Molly Garner RN it would not allow me to change the person doing the rate change to my name. It had Kelton Joy grayed out because he was the person that began the bag and it was not allowing me to put my name in even though I was signed in. Normal [facility] Progress Note-Physicianon Progress Note-Physician Assessment/Plan PLAN: 1. DVT of lower limb, acute (I82.409: Acute embolism and thrombosis of unspecified deep veins of unspecified lower extremity) -Bilateral lower leg DVTs noted - USLE Venous Duplex-Shows venous thrombosis involving the deep femoral, femoral and popliteal veins of the right deep venous system. No noted to the left superficial venous thrombosis involving the left greater saphenous vein. -Continue Heparin gtt -Consult vascular for anticoag recommendations due to complexity -> hx DVT/Morbid obesity. -Elevate extremity 2. Elevated d-dimer (R79.89: Other specified abnormal findings of blood chemistry) -D dimer 5,824 -See #1 3. Left leg swelling (M79.89: Other specified soft tissue disorders) -Left lower leg swollen with tenderness and very mildly raised round/light pink area. -Positive Christian's sign however Duplex negative for DVT right leg. -Warm compress and elevation. 4. NHL (non-Hodgkin's lymphoma) (C85.90: Non-Hodgkin lymphoma, unspecified, unspecified site) Pt recent diagnosis 04/27 at [facility] -Has had 3 chemo treatments and transitioning back to [facility] from [place] -Will follow Dr. Stanley was following in [place] 5. Immunocompromised (D84.9: Immunodeficiency, unspecified) -Due to #4 and likely residual from #7 6. Anemia (D64.9: Anemia, unspecified) -Hgb 10.2 likely d/t NHL/chemo -Iron studies -normal. -Stool occult pending -Trend labs. 7. Cough (R05: Cough) -Recent cough in last week. -Hx Covid -Covid Antigen negative -Chest x-ray shows: No acute findings. -SPO2 96-98% on room air. -Sputum cx pending. 8. History of COVID-19 (Z86.16: Personal history of COVID-19) -States had Covid twice in 11/25 and again towards end of the year. -Was hospitalized at [facility] then [facility]. 9. Wound of abdomen (S31.109A: Unspecified open wound of abdominal wall, unspecified quadrant without penetration into peritoneal cavity, initial encounter) -Stage II pressure ulcer to left pannus area -Consult wound -Clean with warm soapy water, pat dry and apply dressing until seen by wound. Ordered: Initial Hospital Care/Day High 70 Minutes [id number] 10. Morbid obesity (E66.01: Morbid (severe) obesity due to excess calories) -BMI 60.19 -[employer] on diet, exercise, weight loss and lifestyle modifications. DVT prophylaxis: Heparin drip Patient will be inpatient status that she will likely require greater than 2 midnight stays for further work-up and treatment. Subjective pt resting in bed. States that she did not sleep well last night. Only went to sleep a few hours ago. Denies CP. States she still has dry cough but only intermittently Feels wheezy today. Still c/o milf left lower leg pain but improved. Objective Vitals & Measurements T: 36.7 ?C (Oral) TMIN: 36.6 ?C (Oral) TMAX: 36.9 ?C (Oral) HR: 84(Monitored) RR: 18 BP: 131/67 SpO2: 98% WT: 195.1 kg Intake & Output This visit (24 hour periods starting at 07:00 EDT) 08/03/20 * 08/02/20 08/01/20 Total Summary Intake mL -- 653.81 -- Output mL 400 200 -- Fluid Balance -400 453.81 -- Intake (3) Oral Intake mL -- 650 -- Sodium Chloride 0.9% intravenous solution 500 mL mL -- 2.81 -- heparin mL -- 1 -- Total -- 653.81 -- Output (1) Urine Voided mL 400 200 -- Total 400 200 -- Counts (2) Stool Count -- 1 -- Urine Count -- 1 -- * This column has not completed the indicated time period. Physical Exam General: Alert and oriented, No acute distress. Eye: Pupils are equal, round and reactive to light. HENT: Normal hearing, No pharyngeal erythema. Moist oral mucosa. Neck: Supple, Non-tender, very large neck circumference. Respiratory: Lungs are clear to auscultation with diminished bases; no rales or rhonchi noted. Respirations are non-labored, Cardiovascular: Normal rate, Regular rhythm, faint pulses to BLLE 1-2+ pitting. Leg circumference normally large. Gastrointestinal: Soft, morbidly obese, Non-tender, Normal bowel sounds. Musculoskeletal Limited range of motion to BLLE due to pain, decreased strength. Integumentary: Warm, not intact, large stage II pressure ulcer noted under left pannus. (see wound sheet for measurements) under pannus moist, foul yeast smell. Neurologic: Alert, Oriented, No focal deficits. Psychiatric: Cooperative, Appropriate mood & affect, Normal judgment. Lab Results WBC: 5.8 E9/L (08/03/20 05:06:00) RBC: 3.8 E12/L Low (08/03/20 05:06:00) Hgb: 9.1 gm/dL Low (08/03/20 05:06:00) Hct: 29 % Low (08/03/20 05:06:00) MCV: 76.6 fL Low (08/03/20 05:06:00) MCH: 24.2 pg Low (08/03/20 05:06:00) MCHC: 31.5 gm/dL (08/03/20 05:06:00) RDW: 22.7 % High (08/03/20 05:06:00) Platelet: 213 E9/L (08/03/20 05:06:00) MPV: 7.9 fL (08/03/20 05:06:00) Neutro Auto: 69.4 % (08/03/20 05:06:00) Lymph Auto: 15.4 % (08/03/20 05:06:00) Lincoln Auto: 10.7 % (08/03/20 05:06:00) Eos Auto: 3.2 % (08/03/20 05:06:00) Basophil Auto: 1.3 % (08/03/20 05:06:00) Neutro Absolute: 4 E9/L (08/03/20 05:06:00) Lymph Absolute: 0.9 E9/L Low (08/03/20 05:06:00) Lincoln Absolute: 0.6 E9/L (08/03/20 05:06:00) Eos Absolute: 0.2 E9/L (08/03/20 05:06:00) Basophil Absolute: 0.1 E9/L (08/03/20 05:06:00) Reticulocyte: 2.3 % High (08/02/20 19:06:00) RBC Morph: See Morphology (08/03/20 05:06:00) Anisocytosis: Present (08/03/20 05:06:00) Microcyte: Present (08/03/20 05:06:00) Hypochromasia: Present (08/03/20 05:06:00) PT: 13.1 second(s) High (08/02/20 15:04:00) INR: 1.1 (08/02/20 15:04:00) PTT: 75.4 second(s) High (08/03/20 12:01:00) D-Dimer: 5824 ng/mL Critical (08/02/20 15:04:00) Glucose Lvl: 135 mg/dL (08/03/20 05:06:00) BUN: 17 mg/dL (08/03/20 05:06:00) Creatinine: 0.7 mg/dL (08/03/20 05:06:00) eGFR: >60 (08/03/20 05:06:00) eGFR AA: >60 (08/03/20 05:06:00) BUN/Creat Ratio: 24 High (08/03/20 05:06:00) Sodium Lvl: 140 mmol/L (08/03/20 05:06:00) Potassium Lvl: 3.6 mmol/L (08/03/20 05:06:00) Chloride: 109 mmol/L (08/03/20 05:06:00) CO2: 24 mmol/L (08/03/20 05:06:00) AGAP: 11 mEq/L (08/03/20 05:06:00) Calcium Lvl: 8.2 mg/dL Low (08/03/20 05:06:00) Lactic Acid Lvl: 1.3 mmol/L (08/02/20 15:04:00) Iron: 42 mcg/dL (08/02/20 15:04:00) Transferrin: 228 mg/dL (08/02/20 15:04:00) TIBC: 319 mcg/dL (08/02/20 15:04:00) Chol: 147 mg/dL (08/02/20 19:06:00) Tri mg/dL (08/02/20 19:06:00) HDL: 32 mg/dL (08/02/20 19:06:00) LDL Direct: 97 mg/dL (08/02/20 19:06:00) VLDL: 16 mg/dL (08/02/20 19:06:00) LDH: 170 Int._Unit/L (08/02/20 15:04:00) TSH: 3.17 mcIU/mL (08/02/20 15:04:00) Troponin: 5.7 pg/mL Low (08/02/20 19:06:00) Ferritin Lvl: 41 ng/mL (08/02/20 15:04:00) UA Spec Desc: Clean Catch (08/03/20 04:30:00) UA Color: Dark Yellow3 Abnormal (08/03/20 04:30:00) UA Clarity: Cloudy2 Abnormal (08/03/20 04:30:00) UA Spec Grav: 1.025 (08/03/20 04:30:00) UA pH: 6.0 (08/03/20 04:30:00) UA Protein: NEGATIVE1 (08/03/20 04:30:00) UA Glucose: NEGATIVE1 (08/03/20 04:30:00) UA Ketones: NEGATIVE1 (08/03/20 04:30:00) UA Bili: NEGATIVE1 (08/03/20 04:30:00) UA Blood: 3+ Abnormal (08/03/20 04:30:00) UA Nitrite: NEGATIVE1 (08/03/20 04:30:00) UA Urobilinogen: 0.2 (08/03/20 04:30:00) UA Leuk Est: NEGATIVE1 (08/03/20 04:30:00) UA RBC: 4-20 (08/03/20 04:30:00) UA Squam Epithelial: 3-4 (08/03/20 04:30:00) UA WBC: 0-5 (08/03/20 04:30:00) UA Bacteria: 1+ Abnormal (08/03/20 04:30:00) UA Amorph Kirsten: Present (08/03/20 04:30:00) UA Mucous: 1+ (08/03/20 04:30:00) Occult Bld Stl: NEGATIVE1 (08/02/20 20:20:00) Fecal WBC Lactoferrin: NEGATIVE1 (08/02/20 20:20:00) Rapid COVID Ag: Not Detected (08/02/20 17:40:00) Rapid COV Int NEG Ctl: Pass (08/02/20 17:40:00) Rapid COV Int POS Ctl: Pass (08/02/20 17:40:00) First Test: NO (08/02/20 17:40:00) Employed in Healthcare: NO (08/02/20 17:40:00) Symptomatic as defined by CDC: YES (08/02/20 17:40:00) Hospitalized?: YES (08/02/20 17:40:00) ICU: NO (08/02/20 17:40:00) Resides in a Congregate Care Setting: NO (08/02/20 17:40:00) ?: Unknown (08/02/20 17:40:00) Diagnostic Results (08/02/2020 15:44 EDT US LE Venous Duplex Bilateral) * Final Report * Reason For Exam History of DVT POWERSCRIBE REPORT IMPRESSION: EVIDENCE OF VENOUS THROMBOSIS INVOLVING THE DEEP FEMORAL, FEMORAL, AND POPLITEAL VEINS OF THE RIGHT DEEP VENOUS SYSTEM. NO EVIDENCE OF VENOUS THROMBOSIS INVOLVING VISUALIZED DEEP VEINS OF THE LEFT LEG. FINDINGS CONSISTENT WITH SUPERFICIAL VENOUS THROMBOSIS INVOLVING THE LEFT GREATER SAPHENOUS VEIN. CLINICAL HISTORY: History of DVT. Shortness of breath. Leg pain and swelling. COMMENT: On the right, there is flow and compressibility of the greater saphenous vein and common femoral vein. There is lack of compressibility of the right deep femoral, femoral, and popliteal veins, consistent with venous thrombosis. The right posterior tibial and peroneal deep calf veins are not visualized. On the left, there is flow and compressibility of the greater saphenous vein in the upper thigh, but there is lack of compressibility of the greater saphenous vein in the mid and lower thigh. On the left, there is flow and compressibility of the common femoral, deep femoral, femoral, and popliteal veins. The left posterior tibial and peroneal deep calf veins are not visualized. Signature Line FINAL REPORT Dictated: 08/02/2020 8:59 pm Adalberto Griffin M.D. Signed (Electronic Signature): 08/02/2020 8:59 pm Signed by: Adalberto Griffni M.D. Transcribed by: EDENILSON Technologist: ADRI RAD REPORT This document has an image Result type: US LE Venous Duplex Bilateral Result date: August 02, 2020 15:44 EDT Result status: Auth (Verified) Result title: US LE Venous Duplex Bilateral Performed by: Adalberto Griffin M.D. on August 02, 2020 20:59 EDT Verified by: Adalberto Griffin M.D. on August 02, 2020 20:59 EDT Encounter info: [id number], [facility], Inpatient, 08/02/2020 - [1] (08/02/2020 14:40 EDT XR Chest Single View) * Final Report * Reason For Exam Shortness of breath (SOB) POWERSCRIBE REPORT IMPRESSION: NO EVIDENCE OF ACUTE CHEST DISEASE. CLINICAL HISTORY: Shortness of breath (SOB). COMMENT: AP portable. There is a right subclavian venous catheter, with the tip in the superior vena cava. The heart is upper limits of normal in size. There is mild mediastinal prominence. The central pulmonary vessels are mildly prominent. The up appearance of these structures may in part be related to the AP portable technique and less than deep respiration. No consolidated airspace opacification nor pleural effusion is evident. Signature Line FINAL REPORT Dictated: 08/02/2020 8:29 pm Adalberto Griffin M.D. Signed (Electronic Signature): 08/02/2020 8:29 pm Signed by: Adalberto Griffin M.D. Transcribed by: EDENILSON Technologist: KEVIN RAD REPORT This document has an image Result type: XR Chest Single View Result date: August 02, 2020 14:40 EDT Result status: Auth (Verified) Result title: XR Chest Single View Performed by: Adalberto Griffin M.D. on August 02, 2020 20:29 EDT Verified by: Adalberto Griffin M.D. on August 02, 2020 20:29 EDT Encounter info: [id number], [facility], Inpatient, 08/02/2020 - [2] Problem List/Past Medical History Ongoing No qualifying data Historical No qualifying data Medications Inpatient acetaminophen 325 mg Tab, 650 mg= 2 tab(s), Oral, q6hr, PRN Al hydroxide/Mg hydroxide/simethicone 200 mg-200 mg-20 mg/5 mL oral suspension, 30 mL, Oral, q6hr, PRN Al hydroxide/Mg hydroxide/simethicone 200 mg-200 mg-20 mg/5 mL oral suspension, 30 mL, Oral, q6hr, PRN Claritin 10 mg Tab, 10 mg= 1 tab(s), Oral, Daily Colace 100 mg Cap, 100 mg= 1 cap(s), Oral, BID diphenhydrAMINE 25 mg Cap, 50 mg= 2 cap(s), Oral, q6hr, PRN heparin additive 25,000 unit(s) [18 unit/kg/hr] + Premix Dextrose 5% Diluent 250 mL hydrALAZINE 20 mg/mL Inj, 10 mg= 0.5 mL, IV Push, q6hr, PRN Immodium A-D 2 mg Tab, 2 mg= 1 tab(s), Oral, q6hr, PRN ketorolac 30 mg/mL Inj 1 mL, 30 mg= 1 mL, IV, q6hr, PRN Percocet 325 mg-5 mg Tab, 2 tab(s), Oral, q6hr, PRN Sodium Chloride 0.9% IV Minoo 500 mL 500 mL, 500 mL, IV Zofran 4 mg/2 mL Injection, 4 mg= 2 mL, IV Push, q6hr, PRN Home No active home medications [1] US LE Venous Duplex Bilateral; Adalberto Griffin M.D. 08/02/2020 15:44 EDT [2] XR Chest Single View; Adalberto Griffin M.D. 08/02/2020 14:40 EDT Normal [facility] Comment on above: Result Comment: Elec tronically Signed By: Vida MURGUIA\.br\Date and Time Signed: 08/03/20 12:46 EDT\.br\Electronically Co-Signed By: Vida MURGUIA\.br\Date and Time Co-Signed: 08/03/20 12:47 EDT\.br\Electronically Co-Signed By: Eder Miller MD\.br\Date and Time Co-Signed: 08/03/20 13:11 EDT Stl [facility] 08-03-2020 Occult Bld Stl Negative Normal Negative [facility] Comment on above: Performed By: #### 2 [id number] #### [facility] [address] [place] [address] UA With Cult Reflexon 2020 Bacteria LM Ql (Urine sed) 1+ /HPF Abnormal Trace [facility] Comment on above: Performed By: #### 1 [id number] #### [facility] [address] [place] [address] Bilirubin Ql (U) Negative Normal Negative [facility] Comment on above: Performed By: #### 1 [id number] #### [facility] [address] [place] [address] Clarity (U) CLOUDY Abnormal Clear [facility] Comment on above: Performed By: #### 1 [id number] #### [facility] [address] [place] [address] Color (U) DARK YELLO Abnormal Yellow [facility] Comment on above: Performed By: #### 1 [id number] #### [facility] [address] [place] [address] Crystals LM Ql (Urine sed) Present Normal [facility] Comment on above: Performed By: #### 1 [id number] #### [facility] [address] [place] [address] Epithelial cells.squamous LM.HPF (Urine sed) [#/Area] 3-4 Normal 0-2 [facility] Comment on above: Performed By: #### 1 [id number] #### [facility] [address] [place] [address] Glucose Test strip (U) [Mass/Vol] Negative Normal Negative [facility] Comment on above: Performed By: #### 1 [id number] #### [facility] [address] [place] [address] Hemoglobin Ql (U) 3+ Abnormal Negative [facility] Comment on above: Performed By: #### 1 [id number] #### [facility] [address] [place] [address] Ketones (U) [Mass/Vol] Negative Normal Negative [facility] Comment on above: Performed By: #### 1 [id number] #### [facility] [address] [place] [address] La Liga.plasma/La Liga. RBC (Bld) [Mass ratio] 4-20 Normal 0-3 [facility] Comment on above: Performed By: #### 1 [id number] #### [facility] [address] [place] [address] Mucus Ql (Urine sed) 1+ Normal Fish [facility] Comment on above: Performed By: #### 1 [id number] #### [facility] [address] [place] [address] Nitrite Ql (U) Negative Normal Negative [facility] Comment on above: Performed By: #### 1 [id number] #### [facility] [address] [place] [address] pH (U) 6.0 [pH] 5.0-9.0 [facility] Comment on above: Performed By: #### 1 [id number] #### [facility] [address] [place] [address] Protein (U) [Mass/Vol] Negative Normal Negative [facility] Comment on above: Performed By: #### 1 [id number] #### [facility] [address] [place] [address] Specific gravity (U) [Rel density] 1.025 1.005-1.030 [facility] Comment on above: Performed By: #### 1 [id number] #### [facility] [address] [place] [address] UA Spec Desc Clean Catch Normal [facility] Comment on above: Performed By: #### 1 [id number] #### [facility] [address] [place] [address] Urobilinogen Qn (U) 0.2 {Donna'U}/dL Normal 0.0-1.0 [facility] Comment on above: Performed By: #### 1 [id number] #### [facility] [address] [place] [address] WBC Auto Ql (U) Negative Normal Negative [facility] Comment on above: Performed By: #### 1 [id number] #### [facility] [address] [place] [address] WBC LM.HPF (Urine sed) [#/Area] 0-5 Normal 0-5 [facility] Comment on above: Performed By: #### 1 [id number] #### [facility] [address] [place] [address] eGFRon 08-03-2020 GFR/1.73 sq M predicted among blacks MDRD (S/P/Bld) [Vol rate/Area] mL/min/{1.73_m2} Normal >=59 [facility] Comment on above: Order Comment: Order Added by Discern Expert. Result Comment: eGFR is race adjusted. AA=. Performed By: #### 2 720247, [id number], 0635991, 2038215 #### [facility] [address] [place] [address] GFR/1.73 sq M predicted among non-blacks MDRD (S/P/Bld) [Vol rate/Area] mL/min/{1.73_m2} Normal >=59 [facility] Comment on above: Order Comment: Order Added by Discern Expert. Result Comment: Sock Folder leola kidney disease could be indicated at eGFR's of less than 60 mL/min/1.73m2. Kidney failure is indicated at less than 15 mL/min/1.73m2. Performed By: #### 2 230636, [id number], 6887087, 2373424 #### [facility] [address] [place] [address] Auto Diffon 08-02-2020 Basophils/100 WBC (Bld) 1.3 % Normal 0.0-2.0 [facility] Comment on above: Order Comment: Order Added by Discern Expert. Performed By: #### 2 035362, 85943005, 8348777, 3175963 #### [facility] [address] [place] [address] Basophils/Leukocytes Auto (Bld) [Pure # fraction] 0.1 E9/L Normal 0.0-0.2 [facility] Comment on above: Order Comment: Order Added by Discern Expert. Performed By: #### 2 408217, 21746704, 9242810, 3272889 #### [facility] [address] [place] [address] Eosinophils/100 WBC (Bld) 2.2 % Normal 0.0-8.0 [facility] Comment on above: Order Comment: Order Added by Discern Expert. Performed By: #### 2 346000, 99104180, 8427789, 0498402 #### [facility] [address] [place] [address] Eosinophils/Leukocytes Auto (Bld) [Pure # fraction] 0.2 E9/L Normal 0.0-0.5 [facility] Comment on above: Order Comment: Order Added by Discern Expert. Performed By: #### 2 689022, 22010545, 4925271, 0404546 #### [facility] [address] [place] [address] Lymphocytes/100 WBC (Bld) 11.5 % Low 14.0-50.0 [facility] Comment on above: Order Comment: Order Added by Discern Expert. Performed By: #### 2 119709, 62796072, 5922185, 4519401 #### [facility] [address] [place] [address] Lymphocytes/Leukocytes Auto (Bld) [Pure # fraction] 1.0 E9/L Normal 1.0-4.0 [facility] Comment on above: Order Comment: Order Added by Discern Expert. Performed By: #### 2 476223, 43111050, 9779634, 5569402 #### [facility] [address] [place] [address] Monocytes/100 WBC (Bld) 8.0 % Normal 4.0-14.[address] [facility] Comment on above: Order Comment: Order Added by Discern Expert. Performed By: #### 2 297761, 82204828, 6623309, 8816208 #### [facility] [address] [place] [address] Monocytes/Leukocytes Auto (Bld) [Pure # fraction] 0.7 E9/L Normal 0.2-1.0 [facility] Comment on above: Order Comment: Order Added by Yobany Expert. Performed By: #### 2 667579, 69835972, 6862821, 3156582 #### [facility] [address] [place] [address] Neutrophils/100 WBC (Bld) 77.0 % High 36.0-75.0 [facility] Comment on above: Order Comment: Order Added by Discern Expert. Performed By: #### 2 455474, 14204241, 3007640, 8340611 #### [facility] [address] [place] [address] Neutrophils/Leukocytes Auto (Bld) [Pure # fraction] 6.5 E9/L Normal 2.0-7.5 [facility] Comment on above: Order Comment: Order Added by Discern Expert. Performed By: #### 2 841243, 10981623, 7106190, 2098788 #### [facility] [address] [place] [address] Basophils/100 WBC (Bld) 1.2 % Normal 0.0-2.[address] [facility] Comment on above: Order Comment: Order Added by Discern Expert. Performed By: #### 2 585766 #### [facility] [address] [place] [address] Basophils/Leukocytes Auto (Bld) [Pure # fraction] 0.1 E9/L Normal 0.0-0.2 [facility] Comment on above: Order Comment: Order Added by Discern Expert. Performed By: #### 2 465735 #### [facility] [address] [place] [address] Eosinophils/100 WBC (Bld) 2.4 % Normal 0.0-8.0 [facility] Comment on above: Order Comment: Order Added by Discern Expert. Performed By: #### 2 797266 #### [facility] [address] [place] [address] Eosinophils/Leukocytes Auto (Bld) [Pure # fraction] 0.2 E9/L Normal 0.0-0.5 [facility] Comment on above: Order Comment: Order Added by Discern Expert. Performed By: #### 2 654154 #### [facility] [address] [place] [address] Lymphocytes/100 WBC (Bld) 12.0 % Low 14.0-50.0 [facility] Comment on above: Order Comment: Order Added by Discern Expert. Performed By: #### 2 155902 #### [facility] [address] [place] [address] Lymphocytes/Leukocytes Auto (Bld) [Pure # fraction] 1.0 E9/L Normal 1.0-4.0 [facility] Comment on above: Order Comment: Order Added by Discern Expert. Performed By: #### 2 934165 #### [facility] [address] [place] [address] Monocytes/100 WBC (Bld) 9.6 % Normal 4.0-14.0 [facility] Comment on above: Order Comment: Order Added by Discern Expert. Performed By: #### 2 109795 #### [facility] [address] [place] [address] Monocytes/Leukocytes Auto (Bld) [Pure # fraction] 0.8 E9/L Normal 0.2-1.0 [facility] Comment on above: Order Comment: Order Added by Discern Expert. Performed By: #### 2 347667 #### [facility] [address] [place] [address] Neutrophils/100 WBC (Bld) 74.8 % Normal 36.0-75.0 [facility] Comment on above: Order Comment: Order Added by Discern Expert. Performed By: #### 2 953624 #### [facility] [address] [place] [address] Neutrophils/Leukocytes Auto (Bld) [Pure # fraction] 6.1 E9/L Normal 2.0-7.5 [facility] Comment on above: Order Comment: Order Added by Discern Expert. Performed By: #### 2 687429 #### [facility] [address] [place] [address] BMPon 08-02-2020 Creatinine [Mass/Vol] 0.6 mg/dL Normal 0.5-1.3 [facility] Comment on above: Performed By: #### 2 366917, 5723228, 8391556, 4659334, 82194189, 55887197, 16373103, 96594447, 6717427, 06287925, 3500768 #### [facility] [address] [place] [address] Urea nitrogen [Mass/Vol] 13 mg/dL Normal 5-21 [facility] Comment on above: Performed By: #### 2 690127, 8578458, 8042346, 4999866, 29191956, 74028580, 77539969, 75192333, 0602842, 52905831, 6743362 #### [facility] [address] [place] [address] Urea nitrogen/Creatinine [Mass ratio] 22 No Units High 10-20 [facility] Comment on above: Performed By: #### 2 917923, 9845459, 1660085, 1096018, 11629009, 05671273, 03121146, 54507915, 2601249, 54355466, 9196278 #### [facility] [address] [place] [address] Anion gap [Moles/Vol] 11 mmol/L Normal 6-16 [facility] Comment on above: Performed By: #### 2 667216, 0400426, 7579895, 5170633, 59903584, 78857217, 25031287, 02112368, 2936205, 27963121, 7911561 #### [facility] [address] [place] [address] Calcium [Mass/Vol] 8.8 mg/dL Low 8.9-11.1 [facility] Comment on above: Performed By: #### 2 245339, 2576404, 7316316, 2833559, 90188515, 62621354, 93085376, 87770340, 8529028, 02041425, 2681517 #### [facility] [address] [place] [address] Chloride [Moles/Vol] 110 mmol/L Normal 101-111 [facility] Comment on above: Performed By: #### 2 609829, 3873964, 2001188, 0664171, 08442954, 33273239, 55604419, 57703453, 9204864, 71856395, 5487532 #### [facility] [address] [place] [address] CO2 [Moles/Vol] 21 mmol/L Normal 21-31 [facility] Comment on above: Performed By: #### 2 522157, 2432332, 2675521, 2765718, 58289483, 39882447, 93976295, 43708945, 4714127, 50963386, 9190860 #### [facility] [address] [place] [address] Glucose [Mass/Vol] 101 mg/dL Normal 55-199 [facility] Comment on above: Result Comment: If t his glucose result represents a fasting glucose, interpretation should refer to the following reference range: 55-99 mg/dL Performed By: #### 2 986769, 3956202, 1936320, 5652146, 91692659, 82897807, 09570467, 03154505, 8269944, 42724410, 7164947 #### [facility] [address] [place] [address] Potassium [Moles/Vol] 3.7 mmol/L Normal 3.5-5.3 [facility] Comment on above: Performed By: #### 2 757771, 8322949, 8963484, 4653045, 35012231, 38219378, 51603754, 93603109, 4240641, 57774579, 7249318 #### [facility] [address] [place] [address] Sodium [Moles/Vol] 138 mmol/L Normal 135-145 [facility] Comment on above: Performed By: #### 2 102638, 0075430, 8171053, 6621103, 34513350, 04796489, 54720645, 09708495, 1838011, 34442249, 9815750 #### [facility] [address] [place] [address] CBC w/ Auto Diffon Erythrocyte distribution width (RBC) [Ratio] 23.1 % High 10.9-14.2 [facility] Comment on above: Performed By: #### 2 596969, 75940240, 6220276, 3513916 #### [facility] [address] [place] [address] Hematocrit (Bld) [Volume fraction] 31.1 % Low 34.0-46.0 [facility] Comment on above: Performed By: #### 2 014597, 23087345, 1281146, 4455460 #### [facility] [address] [place] [address] Hemoglobin (Bld) [Mass/Vol] 10.0 g/dL Low 12.0-16.0 [facility] Comment on above: Performed By: #### 2 835202, 74961265, 7550028, 8356013 #### [facility] [address] [place] [address] MCH (RBC) [Entitic mass] 24.4 pg Low 27.0-34.0 [facility] Comment on above: Performed By: #### 2 984106, 39249325, 0215085, 1296410 #### [facility] [address] [place] [address] MCHC (RBC) [Mass/Vol] 32.1 g/dL Normal 31.4-36.0 [facility] Comment on above: Performed By: #### 2 419498, 84644848, 9306721, 3652245 #### [facility] [address] [place] [address] MCV (RBC) [Entitic vol] 76.0 fL Low 80.0-100.[address] [facility] Comment on above: Performed By: #### 2 550623, 86511792, 7276309, 5520115 #### [facility] [address] [place] [address] Platelet mean volume (Bld) [Entitic vol] 8.0 fL Normal 6.4-10.8 [facility] Comment on above: Performed By: #### 2 682057, 58395400, 5482379, 7617360 #### [facility] [address] [place] [address] Platelets (Bld) [#/Vol] 249.0 E9/L Normal 150.0-500.0 [facility] Comment on above: Performed By: #### 2 904632, 61705797, 0045286, 6621276 #### [facility] [address] [place] [address] 11884 RBC (Bld) [#/Vol] 4.1 E12/L Low 4.3-5.9 [facility] Comment on above: Performed By: #### 2 611424, 98224146, 0580784, 0702074 #### [facility] [address] [place] [address] WBC corrected for nucl RBC Auto (Bld) [#/Vol] 8.5 E9/L Normal 4.0-11.0 [facility] Comment on above: Performed By: #### 2 209275, 58911189, 0948817, 4535888 #### [facility] [address] [place] [address] Erythrocyte distribution width (RBC) [Ratio] 23.0 % High 10.9-14.2 [facility] Comment on above: Performed By: #### 2 145900 #### [facility] [address] [place] [address] Hematocrit (Bld) [Volume fraction] 32.8 % Low 34.0-46.0 [facility] Comment on above: Performed By: #### 2 229732 #### [facility] [address] [place] [address] Hemoglobin (Bld) [Mass/Vol] 10.2 g/dL Low 12.0-16.0 [facility] Comment on above: Performed By: #### 2 463724 #### [facility] [address] [place] [address] MCH (RBC) [Entitic mass] 23.9 pg Low 27.0-34.0 [facility] Comment on above: Performed By: #### 2 356624 #### [facility] [address] [place] [address] MCHC (RBC) [Mass/Vol] 30.9 g/dL Low 31.4-36.0 [facility] Comment on above: Performed By: #### 2 598444 #### [facility] [address] [place] [address] MCV (RBC) [Entitic vol] 77.2 fL Low 80.0-100.[address] [facility] Comment on above: Performed By: #### 2 613196 #### [facility] [address] [place] [address] Platelet mean volume (Bld) [Entitic vol] 7.8 fL Normal 6.4-10.8 [facility] Comment on above: Performed By: #### 2 973961 #### [facility] [address] [place] [address] Platelets (Bld) [#/Vol] 246.0 E9/L Normal 150.0-500.0 [facility] Comment on above: Performed By: #### 2 499767 #### [facility] [address] [place] [address] RBC (Bld) [#/Vol] 4.3 E12/L Normal 4.3-5.9 [facility] Comment on above: Performed By: #### 2 224876 #### [facility] [address] [place] [address] WBC corrected for nucl RBC Auto (Bld) [#/Vol] 8.2 E9/L Normal 4.0-11.0 [facility] Comment on above: Performed By: #### 2 485809 #### [facility] [address] [place] [address] Consent for Treatmenton 07-08 Consent for Treatment [id number] Normal [facility] D-Dimeron 08-02-2020 Fibrin D-dimer FEU (PPP) [Mass/Vol] 5824 ng/mL Abnormal 215-500 [facility] Comment on above: Result Comment: Resu lts Verified By Repeat Analysis. Results Called To Dennise Salazar By And Read Back For Confirmation On 08/02/2020 15:32:55 EDT. This D-Dimer assay may be used in conjunction with a non-high clinical pretest probability assessment to exclude deep-vein thrombosis(DVT). For exclusion of venous thrombosis or pulmonary embolism the analyte D-Dimer should not be used as an aid in patients with: Therapeutic dose anticoagulant therapy for >24 hours Fibrinolytic therapy within previous 7 days Trauma or surgery within previous 4 weeks Disseminated malignacies Aortic aneurysm Sepsis, severe infections, pneumonia, severe skin infections Liver cirrhosis Performed By: #### [id number] #### [facility] [address] [place] [address] ED Clinical Summaryon 2020 ED Clinical Summary (Inserted Image. Arnel ble to display) [place] [id number] ED Clinical Summary Person Information Name: LISA BURRELL/FlakitoRafia Age: 39 Years : 1980 Sex: Female Language: Nauruan PCP: Valdemar ARNETT, Mignon Siddiqi Marital Status: Visit Id: Visit Reason: Leg pain-swelling; ACUTE DVT OF LOWER LIMB, ANEMIA, ELEVATED D TIMER Speciality: Acuity: 3 Enc Type: Observation Med Service: Medical Arrival: 08/02/2020 14:04:42 Discharge: LOS: 000 04:31 Checkin: 08/02/2020 14:04:42 Checkout: 08/02/2020 18:35:54 Dispo Type: Admitted as IP to this [facility] EVENTS: Event Name Event Status Request Date/Time Start Date/Time Complete Date/Time Arrive Complete 08/02/2020 14:04:42 08/02/2020 14:04:42 08/02/2020 14:04:42 Document Home Meds Request 08/02/2020 14:04:42 Triage Complete 08/02/2020 14:04:42 08/02/2020 14:16:20 08/02/2020 14:16:20 Bed Assign Complete 08/02/2020 14:05:17 08/02/2020 14:05:17 08/02/2020 14:05:17 Dr Exam Complete 08/02/2020 14:05:17 08/02/2020 14:12:33 08/02/2020 14:12:33 RN Exam Complete 08/02/2020 14:05:17 08/02/2020 14:19:57 08/02/2020 14:19:57 Registration Complete 08/02/2020 14:12:33 08/02/2020 15:05:02 08/02/2020 15:05:02 Dr Exam Complete 08/02/2020 14:17:45 08/02/2020 14:17:45 08/02/2020 14:17:45 Fall Risk Request 08/02/2020 14:19:57 EKG Complete 08/02/2020 14:24:17 08/02/2020 14:45:05 Pending Labs Request 08/02/2020 14:24:17 Lab Request 08/02/2020 14:24:17 Urine Collect Request 08/02/2020 14:24:17 X-Ray Complete 08/02/2020 14:24:17 08/02/2020 14:28:45 08/02/2020 14:40:35 US Complete 08/02/2020 14:24:17 08/02/2020 14:55:37 08/02/2020 15:44:57 Wet Read Request 08/02/2020 14:40:35 Reg Complete Request 08/02/2020 15:05:02 Reg Bed Request Complete 08/02/2020 15:05:02 08/02/2020 15:05:02 08/02/2020 15:05:02 Pending Labs Complete 08/02/2020 15:14:24 08/02/2020 15:14:24 08/02/2020 15:32:54 Lab Complete 08/02/2020 15:14:24 08/02/2020 15:14:24 08/02/2020 15:32:54 Pending Labs Complete 08/02/2020 15:32:01 08/02/2020 17:04:28 Lab Complete 08/02/2020 15:32:01 08/02/2020 17:04:28 Meds Admin Request 08/02/2020 15:38:54 Patient Care Request 08/02/2020 15:38:54 Consult Request 08/02/2020 16:09:48 Hospitalist Consult Request 08/02/2020 16:09:49 Pending Labs Complete 08/02/2020 17:03:49 08/02/2020 17:03:49 08/02/2020 17:04:28 Pending Labs Complete 08/02/2020 17:03:49 08/02/2020 17:03:49 08/02/2020 17:04:36 Lab Complete 08/02/2020 17:03:49 08/02/2020 17:03:49 08/02/2020 17:04:36 Patient Care Request 08/02/2020 17:14:55 Pending Labs Request 08/02/2020 17:14:55 Lab Request 08/02/2020 17:14:55 Meds Admin Request 08/02/2020 17:14:55 RT Request 08/02/2020 17:14:55 RT Tx/ABG Request 08/02/2020 17:14:55 Bed Request Request 08/02/2020 17:14:55 Reg Bed Request Complete 08/02/2020 17:14:55 08/02/2020 17:17:23 08/02/2020 17:17:23 Admit Request 08/02/2020 17:14:55 Pending Labs Request 08/02/2020 17:15:29 Lab Request 08/02/2020 17:15:29 Patient Care Request 08/02/2020 17:17:35 Patient Care Request 08/02/2020 17:18:16 Pending Labs Request 08/02/2020 17:18:49 Pending Labs Complete 08/02/2020 17:19:19 08/02/2020 18:02:11 Lab Complete 08/02/2020 17:19:19 08/02/2020 18:02:11 Consult Request 08/02/2020 17:19:38 Patient Care Request 08/02/2020 17:20:30 Pending Labs Complete 08/02/2020 17:21:05 08/02/2020 17:21:05 08/02/2020 17:21:05 Pending Labs Request 08/02/2020 17:21:32 Lab Request 08/02/2020 17:21:32 Pending Labs Inlab 08/02/2020 17:35:12 08/02/2020 17:35:12 Lab Inlab 08/02/2020 17:35:12 08/02/2020 17:35:12 Pending Labs Complete 08/02/2020 17:36:54 08/02/2020 17:36:54 08/02/2020 18:08:35 Lab Complete 08/02/2020 17:36:54 08/02/2020 17:36:54 08/02/2020 17:57:18 Pending Labs Request 08/02/2020 18:14:24 Lab Request 08/02/2020 18:14:24 Pending Labs Request 08/02/2020 18:24:28 Patient Care Request 08/02/2020 18:29:32 Patient Care Request 08/02/2020 18:29:32 Patient Care Request 08/02/2020 18:29:33 Patient Care Request 08/02/2020 18:29:33 ADDRESS: [address] [place] [id number] PHYS DOC NOTES: MEDICAL INFORMATION: Prescriptions Given: PATIENT EDUCATION INFORMATION: Instructions: Follow up: DIAGNOSIS: 1:DVT of lower limb, acute; 2:Elevated d-dimer; 3:Left leg swelling; 4:NHL (non-Hodgkin's lymphoma); 5:Immunocompromised; 6:Anemia; 7:Cough; 8:History of COVID-19; 9:Wound of abdomen; 10:Morbid obesity Normal [facility] ED Patient Education Noteon 08-02-2020 ED Patient Education Note Normal [facility] ED Patient Summaryon ED Patient Summary (Inserted Image. Arnel ble to display) [place] [id number] Patient Discharge Instructions Person Information Name: ARNULFO GODFREYKAROLIE Age: 39 Years Arrival Date: 08/02/2020 14:04:42 Discharge Diagnosis: 1:DVT of lower limb, acute; 2:Elevated d-dimer; 3:Left leg swelling; 4:NHL (non-Hodgkin's lymphoma); 5:Immunocompromised; 6:Anemia; 7:Cough; 8:History of COVID-19; 9:Wound of abdomen; 10:Morbid obesity Primary Care Physician: Mignon Aldrich MD Provider Information Primary Provider: Dara Barrett DO Advanced Java Project Manager:None The exam and treatment you received in the Emergency Department were for an urgent problem and are not intended as complete care. It is important that you follow up with a doctor, nurse practitioner, or physician?s bilingual office assistant for ongoing care. If your symptoms become worse or you do not improve as expected and you are unable to reach your usual health care provider, you should return to the Emergency Department. We are available 24 hours a day. LISA BURRELL has been given the following list of patient education materials, prescriptions and follow-up instructions: Follow-up Instructions: In the event that this physician does not participate in your insurance network, please consult with your insurance company to find a nearby participating provider. Patient Education Materials: A MESSAGE TO ALL PATIENTS REGARDING OPIOIDS PRESCRIPTION OPIOIDS: WHAT YOU NEED TO KNOW Prescription opioids can be used to help relieve zxzljnyl-rh-vdhtfj pain and are often prescribed following a surgery or injury, or for certain health conditions. These medications can be an important part of the treatment but also come with serious risks. It is important to work with your healthcare provider to make sure you are getting the safest, most effective care. WHAT ARE THE RISKS AND SIDE EFFECTS OF OPIOID USE? Prescription opioids carry serious risks of addiction and overdose, especially with prolonged use. An opioid overdose, often marked by slowed breathing, can cause sudden . The use of prescription opioids can have a number of side effects as well, even when taken as directed: ? Tolerance?meaning you might need to take more of the medication for the same pain relief ? Physical dependence?meaning you have symptoms of withdrawal when a medication is stopped ? Increased sensitivity to pain ? Constipation ? Nausea, vomiting, and dry mouth ? Sleepiness and dizziness ? Confusion ? Depression ? Low levels of testosterone that can result in lower sex drive, energy, and strength ? Itching and sweating RISKS ARE GREATER WITH: ? History of drug misuse, substance use disorder, or overdose ? Mental health conditions (such as depression or anxiety) ? Sleep apnea ? Older age (65 years and older) ? Avoid alcohol while taking prescription opioids. Also, unless specifically advised by your health care provider, medications to avoid include: ? Benzodiazepines (such as Xanax or Valium) ? Muscle relaxants (such as Soma or Flexeril) ? Hypnotics (such as Ambien or Lunesta) ? Other prescription opioids KNOW YOUR OPTIONS Talk to your health care provider about ways to manage your pain that don?t involve prescription opioids. Some of these options may actually work better and have fewer risks and side effects. Options may include: ? Pain relievers such as acetaminophen, ibuprofen, and naproxen ? Some medication that are also used for depression or seizures ? Physical therapy and exercise ? Cognitive behavioral therapy, a psychological, goal-directed approach, in which patients learn how to modify physical, behavioral, and emotional triggers of pain and stress. IF YOU ARE PRESCRIBED OPIOIDS FOR PAIN: ? Never take opioids in greater amounts or more often than prescribed. ? Follow up with your primary health care provider. o Work together to create a plan on how to manage your pain. o Talk about ways to help manage your pain that don?t involve prescription opioids. o Talk about any and all concerns and side effects. ? Help prevent misuse and abuse o Never sell or share prescription opioids. o Never use another person?s prescription opioids. ? Store prescription opioids in a secure place and out of reach of others (this may include visitors, children, friends, and family). ? Safely dispose of unused prescription opioids: Find your community drug take-back program or your pharmacy mail-back program, or flush them down the toilet, following guidance from the Food and Drug Administration (www.fda.gov/Drugs/Resou rcesForYou). ? Visit www.cdc.gov/drugoverdose to learn about the risks of opioids abuse and overdose. ? If you believe you may be struggling with addiction, tell your health child care teacher and ask for guidance or call [facility]?S National Helpline at 4-718-322-WTVJ. f Source: US Department of Health and Human Services/Center for Disease Control & Prevention [facility] Medications Given: Medication Dose Route heparin 70446.00 unit(s) IV Push Right Upper Arm Dextrose 5% in Water intravenous solution 250.00 mL Initial Volume 35.10 mL/hr IV Right Upper Arm heparin 250.00 mL Initial Volume 35.10 mL/hr IV Right Upper Arm Medication Information: Comment: Pharmacy Information: You may receive a survey from [facility] asking you to rate your care experience. Your feedback is important and will help us understand what we do well and how we can improve the quality of care we provide to you, your loved ones and our community. It?s an honor to serve you. Thank you for choosing [facility] Patient Education Materials: ARNULFO Perez JULIE , have received the following patient education materials/instructions and have verbalized understanding: Patient Education Materials: Follow-up Instructions: Patient Signature ___ Clinician/Nurse Signature Date 08/02/2020 18:35:56 Normal [facility] Ferritinon 08-02-2020 Ferritin [Mass/Vol] 41 ng/mL Normal 11-307 [facility] Comment on above: Result Comment: NORM ALS MEN <30 YRS 16-132 ng/mL MEN >30 YRS 8-338 ng/mL WOMEN (PREMEN) 6-104 ng/mL WOMEN (POSTMEN) 12-210 ng/mL Performed By: #### [id number] #### [facility] [address] [place] [address] History and Physicalon 08-02 History and Physical Chief Complaint Pt presenting from home via [facility]. Pt has had left calf pain going on two days. Says that the pain has gotten worse over that time. Pt has history of blood clots. History of Present Illness 39-year-old morbidly obese female with past medical history significant for new diagnosis of non-Hodgkin's lymphoma to right hip, DVTs, COVID-19 x2, has been hospitalized since until . Patient reports that she was transferred from [facility] to the [facility] following a COVID-19 diagnosis with clot. States she was hospitalized at [facility] for several months with worsening condition. States she was transferred to the [facility] in [facility] for further assessment of right hip pain in April and was diagnosed with non-Hodgkin's lymphoma at that time. Patient has since started on chemo x3 doses in [place]. She is transitioning back to [facility] with Dr. Ruiz wants to continue her chemo treatments. Patient with recent loss of spouse in April due to COVID-19. Patient states that she continues to experience increase weakness, fatigue and shortness of breath. Patient reports new onset of a cough in the last week. States cough has been persistent and dry. States that she does become short of breath with exertion. Patient presents today with complaints of left lower leg swelling and pain. Patient states that pain is so severe that it is causing her inability to ambulate. Bilateral lower leg venous duplex was obtained which showed clot to right lower extremity. Patient was started on a heparin drip per protocol. Patient was also found to have a pressure ulcer on her left pannus. Patient was referred to the hospitalist group for further work-up and treatment. Review of Systems Additional ROS info: Except as noted in the above Review of Systems and in the History of Present Illness all other systems have been reviewed and are negative or noncontributory. Physical Exam Vitals & Measurements T: 36.9 ?C (Oral) HR: 69(Peripheral) RR: 18 BP: 123/76 SpO2: 98% WT: 195.0 kg WT: 195 kg General: Alert and oriented, No acute distress. Eye: Pupils are equal, round and reactive to light. HENT: Normal hearing, No pharyngeal erythema. Moist oral mucosa. Neck: Supple, Non-tender, very large neck circumference. Respiratory: Lungs are clear to auscultation with diminished bases; no rales or rhonchi noted. Respirations are non-labored, Cardiovascular: Normal rate, Regular rhythm, faint pulses to BLLE 1-2+ pitting. Leg circumference normally large. Gastrointestinal: Soft, morbidly obese, Non-tender, Normal bowel sounds. Musculoskeletal Limited range of motion to BLLE due to pain, decreased strength. Integumentary: Warm, not intact, large stage II pressure ulcer noted under left pannus. (see wound sheet for measurements) under pannus moist, foul yeast smell. Neurologic: Alert, Oriented, No focal deficits. Psychiatric: Cooperative, Appropriate mood & affect, Normal judgment. Lab Results WBC: 8.2 E9/L (08/02/20 16:32:00) RBC: 4.3 E12/L (08/02/20 16:32:00) Hgb: 10.2 gm/dL Low (08/02/20 16:32:00) Hct: 32.8 % Low (08/02/20 16:32:00) MCV: 77.2 fL Low (08/02/20 16:32:00) MCH: 23.9 pg Low (08/02/20 16:32:00) MCHC: 30.9 gm/dL Low (08/02/20 16:32:00) RDW: 23 % High (08/02/20 16:32:00) Platelet: 246 E9/L (08/02/20 16:32:00) MPV: 7.8 fL (08/02/20 16:32:00) Neutro Auto: 74.8 % (08/02/20 16:32:00) Lymph Auto: 12 % Low (08/02/20 16:32:00) Lincoln Auto: 9.6 % (08/02/20 16:32:00) Eos Auto: 2.4 % (08/02/20 16:32:00) Basophil Auto: 1.2 % (08/02/20 16:32:00) Neutro Absolute: 6.1 E9/L (08/02/20 16:32:00) Lymph Absolute: 1 E9/L (08/02/20 16:32:00) Lincoln Absolute: 0.8 E9/L (08/02/20 16:32:00) Eos Absolute: 0.2 E9/L (08/02/20 16:32:00) Basophil Absolute: 0.1 E9/L (08/02/20 16:32:00) RBC Morph: See Morphology (08/02/20 16:32:00) Anisocytosis: Present (08/02/20 16:32:00) Microcyte: Present (08/02/20 16:32:00) PT: 13.1 second(s) High (08/02/20 15:04:00) INR: 1.1 (08/02/20 15:04:00) PTT: 16.6 second(s) Low (08/02/20 15:04:00) D-Dimer: 5824 ng/mL Critical (08/02/20 15:04:00) Glucose Lvl: 101 mg/dL (08/02/20 15:04:00) BUN: 13 mg/dL (08/02/20 15:04:00) Creatinine: 0.6 mg/dL (08/02/20 15:04:00) eGFR: >60 (08/02/20 15:04:00) eGFR AA: >60 (08/02/20 15:04:00) BUN/Creat Ratio: 22 High (08/02/20 15:04:00) Sodium Lvl: 138 mmol/L (08/02/20 15:04:00) Potassium Lvl: 3.7 mmol/L (08/02/20 15:04:00) Chloride: 110 mmol/L (08/02/20 15:04:00) CO2: 21 mmol/L (08/02/20 15:04:00) AGAP: 11 mEq/L (08/02/20 15:04:00) Calcium Lvl: 8.8 mg/dL Low (08/02/20 15:04:00) Lactic Acid Lvl: 1.3 mmol/L (08/02/20 15:04:00) Iron: 42 mcg/dL (08/02/20 15:04:00) Transferrin: 228 mg/dL (08/02/20 15:04:00) TIBC: 319 mcg/dL (08/02/20 15:04:00) LDH: 170 Int._Unit/L (08/02/20 15:04:00) TSH: 3.17 mcIU/mL (08/02/20 15:04:00) Troponin: 5.1 pg/mL Low (08/02/20 15:04:00) Rapid COVID Ag: Not Detected (08/02/20 17:40:00) Rapid COV Int NEG Ctl: Pass (08/02/20 17:40:00) Rapid COV Int POS Ctl: Pass (08/02/20 17:40:00) First Test: NO (08/02/20:40:00) Employed in Healthcare: NO (08/02/20 17:40:00) Symptomatic as defined by CDC: YES (08/02/20 17:40:00) Hospitalized?: YES (08/02/20 17:40:00) ICU: NO (08/02/20 17:40:00) Resides in a Congregate Care Setting: NO (08/02/20 17:40:00) ?: Unknown (08/02/20 17:40:00) Assessment/Plan PLAN: 1. DVT of lower limb, acute (I82.409: Acute embolism and thrombosis of unspecified deep veins of unspecified lower extremity) - USLE Venous Duplex -Start Heparin gtt -Will transition Heparin at some point to Coumadin. Pt weighs too much for Xarelto/Eliquis. -Elevate extremity Ordered: Initial Hospital Care/Day High 70 Minutes 97998 2. Elevated d-dimer (R79.89: Other specified abnormal findings of blood chemistry) -D dimer 5,824 -See #1 Ordered: Initial Hospital Care/Day High 70 Minutes 44201 3. Left leg swelling (M79.89: Other specified soft tissue disorders) -Left lower leg swollen with tenderness and very mildly raised round/light pink area. -Positive Christian's sign however Duplex negative for DVT right leg. -Warm compress and elevation. Ordered: Initial Hospital Care/Day High 70 Minutes 74967 4. NHL (non-Hodgkin's lymphoma) (C85.90: Non-Hodgkin lymphoma, unspecified, unspecified site) Pt recent diagnosis 04/27 at [facility] in [place] -Has had 3 chemo treatments and transitioning back to [facility] from [place] -Will follow Dr. Stanley was following in [place] Ordered: Initial Hospital Care/Day High 70 Minutes 77230 5. Immunocompromised (D84.9: Immunodeficiency, unspecified) -Due to #4 and likely residual from #7 Ordered: Initial Hospital Care/Day High 70 Minutes 22886 6. Anemia (D64.9: Anemia, unspecified) -Hgb 10.2 likely d/t NHL/chemo -Iron studies pending. -Stool occult pending -Trend labs. 7. Cough (R05: Cough) -Recent cough in last week. -Hx Covid -Covid Antigen pending. -Chest x-ray shows: -SPO2 96-98% on room air. -Sputum cx pending. 8. History of COVID-19 (Z86.16: Personal history of COVID-19) -States had Covid twice in 11/25 and again towards end of the year. -Was hospitalized at [facility] then [facility]. 9. Wound of abdomen (S31.109A: Unspecified open wound of abdominal wall, unspecified quadrant without penetration into peritoneal cavity, initial encounter) -Stage II pressure ulcer to left pannus area -Consult wound -Clean with warm soapy water, pat dry and apply dressing until seen by wound. Ordered: Initial Hospital Care/Day High 70 Minutes 40870 10. Morbid obesity (E66.01: Morbid (severe) obesity due to excess calories) -BMI 60.19 -[employer] on diet, exercise, weight loss and lifestyle modifications. DVT prophylaxis: Heparin drip Patient will be inpatient status that she will likely require greater than 2 midnight stays for further work-up and treatment. Orders: acetaminophen, 650 mg = 2 tab(s), Tab, Oral, q6hr PRN Pain, Routine, Start date 08/02/20 17:14:00 EDT Al hydroxide/Mg hydroxide/simethicone, 30 mL, Susp-Oral, Oral, q6hr PRN Indigestion, STAT, Start date 08/02/20 17:14:00 EDT docusate, 100 mg = 1 cap(s), Cap, Oral, BID, Routine, Start date 08/02/20 21:00:00 EDT hydrALAZINE, 10 mg = 0.5 mL, Injection, IV Push, q6hr PRN Other (see comment), Routine, Start date 08/02/20 17:14:00 EDT ondansetron, 4 mg = 2 mL, Injection, IV Push, q6hr PRN Nausea, Routine, Start date 08/02/20 17:14:00 EDT Ambulate with Assistance Basic Metabolic Panel Cardiac Monitoring CBC w/ Auto Diff CBC w/ Auto Diff Communication Order Physician to Nursing Communication Order Physician to Nursing Communication Order Physician to Pharmacy [F] Consult to Wound Care Elevate Affected Extremity Evaluate Need For Continued Telemetry Ferritin Folate Level HgbA1c Incentive Spirometry Intake and Output Iron Level K-Pad Lactate Dehydrogenase Lipid Panel Notify Provider Vital Signs Notify Provider Vital Signs Occupational Therapy Evaluate Patient, Develop a Plan of Care and Implement Plan Oxygen Protocol Physical Therapy Evaluate Patient, Develop a Plan of Care and Implement Plan Precautions Pulse Oximetry Rapid COVID Antigen ([facility]) Regular Diet Respiratory Protocol Resuscitation Status - Full Reticulocyte Count Stool Occult Blood TIBC Calculated TSH With T4fr Reflex Turn Patient Vital Signs Vitamin B12 Level Weight Problem List/Past Medical History Ongoing No qualifying data Historical No qualifying data Medications Inpatient acetaminophen 325 mg Tab, 650 mg= 2 tab(s), Oral, q6hr, PRN Al hydroxide/Mg hydroxide/simethicone 200 mg-200 mg-20 mg/5 mL oral suspension, 30 mL, Oral, q6hr, PRN Colace 100 mg Cap, 100 mg= 1 cap(s), Oral, BID heparin additive 25,000 unit(s) [18 unit/kg/hr] + Premix Dextrose 5% Diluent 250 mL hydrALAZINE 20 mg/mL Inj, 10 mg= 0.5 mL, IV Push, q6hr, PRN Zofran 4 mg/2 mL Injection, 4 mg= 2 mL, IV Push, q6hr, PRN Home No active home medications Allergies Darvocet A500 (Hives) penicillin (Tachycardia) vancomycin (Anaphylactic reaction) Normal [facility] Comment on above: Result Comment: Elec tronically Signed By: Vida MURGUIA\.br\Date and Time Signed: 08/02/20 18:21 EDT\.br\Electronically Co-Signed By: Paul ARNETT, Eder Hennessy\.br\Date and Time Co-Signed: 08/02/20 18:32 EDT Ironon 08-02-2020 Iron [Mass/Vol] 42 microgram/dL Normal 35-153 [facility] Comment on above: Performed By: #### [id number] #### [facility] [address] [place] [address] ANTONIETA/[place] POC FT Amb-Ramesh ton 08-02-2020 ANTONIETA/[place] P[facility] FT Amb-Text Basic Information Time Seen: Amy Rey PA-C 08/02/2020 14:12 Chief Complaint Pt presenting from home via [facility]. Pt has had left calf pain going on two days. Says that the pain has gotten worse over that time. Pt has history of blood clots. History of Present Illness This patient comes in today with chief complaint of pain to her left lower extremity. She was brought in by EMS. She states this started 2 days ago. She states it is worse today. She states the pain starts right behind her calf. She denies any fevers chills or sweats. The patient does ambulate at home. 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 In the past she was on Xarelto. The patient is currently on chemotherapy for what she thinks is lymphoma. She states the lymphoma is in her hip. She does not know what medication she has been given on chemotherapy. She receives her chemotherapy at the [facility] in [place]. Her last chemotherapy was July 11. Her next 1 is due this coming Tuesday. The patient also has a history of hypertension. The patient does not smoke, drink alcohol, or use any street drugs. Review of Systems Constitutional: Denies weight loss, fevers, chills, sweats, malaise Eyes: Denies visual changes, eye pain, double vision, scotomas, floaters ENT: Denies runny nose, epistaxis, sinus pain, ear pain, ringing in ears, tooth ache, sore throat, pain with swallowing Cardiovascular: Denies chest pain, shortness of breath, orthopnea, edema, palpitations, loss of consciousness, claudication Respiratory: Denies cough, sputum production, wheezing, hemoptysis, shortness of breath, dyspnea on exertion Gastrointestinal: Denies abdominal pain, unintentional weight loss, difficulty swallowing, indigestion, bloating, cramping, loss of appetite, nausea vomiting, diarrhea, constipation, hematochezia, melena Genitourinary: Denies any incontinence of urine, dysuria, hematuria, nocturia, polyuria, hesitancy, frequency, urgency, burning Musculoskeletal: pain in left calf Integumentary: Denies any pruritus, rashes, lesions, wounds, petechiae Neurologic: Denies any changes in sight, smell, hearing, taste, seizures, headache, paresthesia, numbness, weakness balance disturbance Psychiatric denies any depression, change in sleep patterns, anxiety, difficulty concentrating, paranoia, anhedonia, lack of energy, johnson Hematologic/lymphatic: Denies any purpura, petechiae excessive bleeding, bruising Physical Exam Vitals & Measurements T: 36.9 ?C (Oral) HR: 69(Peripheral) RR: 18 BP: 123/76 SpO2: 98% HT: 180.0 cm HT: 180 cm WT: 195.0 kg WT: 195 kg BMI: 60.19 Vital signs and nursing notes reviewed. General: Awake, alert, NAD. Morbidly obese HEENT: Head is normocephalic, atraumatic. PERRL. EOMI. Sclerae are anicteric. External ears are normal. TMs are intact bilaterally. Canals are clear bilaterally. Nares are patent bilaterally. Oral mucosa is pink and moist. No lesions noted. Tongue protrudes in midline. Uvula rises with phonation. Neck is supple, no no palpable adenopathy. No JVD. Trachea is midline. Thorax: Symmetrical rise and fall Lungs: Clear to auscultation throughout all jacobsen, no wheezes, no crackles Heart: Regular rate and rhythm. No murmur, gallop, or rub Abdomen: Obese. No tenderness on palpation. Bowel sounds are present active and normal. No organomegaly. No palpable masses. No CVA tenderness. Extremities: Motor sensory pulses intact x4 extremities. PICC line RUE. Tenderness on palpation LLE, calf. negative christian's sign. there si slight erythema to anterior L lower leg. RLE no skin color changes. No tenderness on palpation. Skin: No lesions, rashes, ulcerations. No bruising or petechiae. Color appropriate, warm and dry Neuro: No oriented x3, cranial nerves II through XII are grossly intact with no focal neuro deficits Psych: Mood and affect are normal Medical Decision Making DVT, cellulitis, neutropenia, pancytopenia, PE, obesity Assessment/Plan 1. DVT of lower limb, acute (I82.409: Acute embolism and thrombosis of unspecified deep veins of unspecified lower extremity) 2. Elevated d-dimer (R79.89: Other specified abnormal findings of blood chemistry) 3. Left leg swelling (M79.89: Other specified soft tissue disorders) 4. NHL (non-Hodgkin's lymphoma) (C85.90: Non-Hodgkin lymphoma, unspecified, unspecified site) 5. Immunocompromised (D84.9: Immunodeficiency, unspecified) 6. Anemia (D64.9: Anemia, unspecified) 7. Cough (R05: Cough) 8. History of COVID-19 (Z86.16: Personal history of COVID-19) 9. Wound of abdomen (S31.109A: Unspecified open wound of abdominal wall, unspecified quadrant without penetration into peritoneal cavity, initial encounter) 10. Morbid obesity (E66.01: Morbid (severe) obesity due to excess calories) Orders: heparin, 10,000 unit(s) = 1 mL, Injection, IV Push, Once, Stop date 08/02/20 15:38:00 EDT, STAT, Start date 08/02/20 15:38:00 EDT, Maximum 10,000 units. Use table #1 on Reference Text. heparin 25,000 unit(s) [18 unit/kg/hr] + Dextrose 5% in Water intravenous solution 250 mL, 250 mL, IV, 35.1 mL/hr, Routine, Start date 08/02/20 15:38:00 EDT, 7.1 hour(s), Total volume (mL): 250, Titrate per high intensity heparin protocol (Table 3 on reference text), 195 kg, Max INITIAL rate = 2000 unit(s)/hr (20 mL/hr). May go above this o... Basic Metabolic Panel Blood Culture Charcoal Blood Culture Charcoal Communication Order Physician to Nursing D-Dimer ECG 12 Lead Adult eGFR Extra SST Tube Lactic Acid PT & PTT Troponin 0 Hr. Troponin 3 Hr. UA With Cult Reflex US LE Venous Duplex Bilateral XR Chest Single View This patient was interviewed and examined. The appropriate ER work-up has been initiated. Patient has risk factors including malignancy, sedentary lifestyle, obesity, history of DVT and PE. Bilateral duplex ultrasound of the lower extremities have been ordered. Patient was found to be positive for DVT of the right lower extremity. Given patient's weight, the only option for anticoagulation is heparin drip and most likely transition to warfarin. I have discussed this case in its entirety with the admitting hospitalist, Dr Miller has accepted the patient for admission. She will be admitted in stable condition. I have reviewed all the patient's labs including the CBC prior to the patient being transferred to the floor. Medications Administered Given heparin additive 25,000 unit(s) [18 unit/kg/hr] + Premix Dextrose 5% Diluent 250 mL, IV heparin 10,000 units/mL Inj 1 mL, 04923 unit(s), IV Push Disposition Plan Patient Discharge Condition stable Discharge Disposition home Discharge Prescription List Prescriptions No active prescription medications Follow-up No qualifying data available Attestation Patient was treated and evaluated by the Physician Veterinary Medicine Scientist. The attending physician was in the Emergency Department at all times and supervised care. The case was discussed with the attending physician and diagnostics were reviewed as needed. Problem List/Past Medical History Ongoing No qualifying data Historical No qualifying data Medications Inpatient acetaminophen 325 mg Tab, 650 mg= 2 tab(s), Oral, q6hr, PRN Al hydroxide/Mg hydroxide/simethicone 200 mg-200 mg-20 mg/5 mL oral suspension, 30 mL, Oral, q6hr, PRN Colace 100 mg Cap, 100 mg= 1 cap(s), Oral, BID heparin additive 25,000 unit(s) [18 unit/kg/hr] + Premix Dextrose 5% Diluent 250 mL hydrALAZINE 20 mg/mL Inj, 10 mg= 0.5 mL, IV Push, q6hr, PRN Zofran 4 mg/2 mL Injection, 4 mg= 2 mL, IV Push, q6hr, PRN Home No active home medications Allergies Darvocet A500 (Hives) penicillin (Tachycardia) vancomycin (Anaphylactic reaction) Lab Results WBC: 8.2 E9/L (08/02/20 16:32:00) RBC: 4.3 E12/L (08/02/20 16:32:00) Hgb: 10.2 gm/dL Low (08/02/20 16:32:00) Hct: 32.8 % Low (08/02/20 16:32:00) MCV: 77.2 fL Low (08/02/20 16:32:00) MCH: 23.9 pg Low (08/02/20 16:32:00) MCHC: 30.9 gm/dL Low (08/02/20 16:32:00) RDW: 23 % High (08/02/20 16:32:00) Platelet: 246 E9/L (08/02/20 16:32:00) MPV: 7.8 fL (08/02/20 16:32:00) Neutro Auto: 74.8 % (08/02/20 16:32:00) Lymph Auto: 12 % Low (08/02/20 16:32:00) Lincoln Auto: 9.6 % (08/02/20 16:32:00) Eos Auto: 2.4 % (08/02/20 16:32:00) Basophil Auto: 1.2 % (08/02/20 16:32:00) Neutro Absolute: 6.1 E9/L (08/02/20 16:32:00) Lymph Absolute: 1 E9/L (08/02/20 16:32:00) Lincoln Absolute: 0.8 E9/L (08/02/20 16:32:00) Eos Absolute: 0.2 E9/L (08/02/20 16:32:00) Basophil Absolute: 0.1 E9/L (08/02/20 16:32:00) RBC Morph: See Morphology (08/02/20 16:32:00) Anisocytosis: Present (08/02/20 16:32:00) Microcyte: Present (08/02/20 16:32:00) PT: 13.1 second(s) High (08/02/20 15:04:00) INR: 1.1 (08/02/20 15:04:00) PTT: 16.6 second(s) Low (08/02/20 15:04:00) D-Dimer: 5824 ng/mL Critical (08/02/20 15:04:00) Glucose Lvl: 101 mg/dL (08/02/20 15:04:00) BUN: 13 mg/dL (08/02/20 15:04:00) Creatinine: 0.6 mg/dL (08/02/20 15:04:00) eGFR: >60 (08/02/20 15:04:00) eGFR AA: >60 (08/02/20 15:04:00) BUN/Creat Ratio: 22 High (08/02/20 15:04:00) Sodium Lvl: 138 mmol/L (08/02/20 15:04:00) Potassium Lvl: 3.7 mmol/L (08/02/20 15:04:00) Chloride: 110 mmol/L (08/02/20 15:04:00) CO2: 21 mmol/L (08/02/20 15:04:00) AGAP: 11 mEq/L (08/02/20 15:04:00) Calcium Lvl: 8.8 mg/dL Low (08/02/20 15:04:00) Lactic Acid Lvl: 1.3 mmol/L (08/02/20 15:04:00) Iron: 42 mcg/dL (08/02/20 15:04:00) Transferrin: 228 mg/dL (08/02/20 15:04:00) TIBC: 319 mcg/dL (08/02/20 15:04:00) LDH: 170 Int._Unit/L (08/02/20 15:04:00) TSH: 3.17 mcIU/mL (08/02/20 15:04:00) Troponin: 5.1 pg/mL Low (08/02/20 15:04:00) Rapid COVID Ag: Not Detected (08/02/20 17:40:00) Rapid COV Int NEG Ctl: Pass (08/02/20 17:40:00) Rapid COV Int POS Ctl: Pass (08/02/20 17:40:00) First Test: NO (08/02/20 17:40:00) Employed in Healthcare: NO (08/02/20 17:40:00) Symptomatic as defined by CDC: YES (08/02/20 17:40:00) Hospitalized?: YES (08/02/20 17:40:00) ICU: NO (08/02/20 17:40:00) Resides in a Congregate Care Setting: NO (08/02/20 17:40:00) ?: Unknown (08/02/20 17:40:00) Diagnostic Results XR Chest Single View * Preliminary * 08/02/20 14:48:57 NEGATIVE: No infiltrate, mass or other acute cardiopulmonary abnormality Read By: Dara Barrett DO EKG Results EC08/02/20: SINUS RHYTHM POSSIBLE ANTERIOR MYOCARDIAL INFARCTION, PROBABLY OLD RATE 90, NORMAL VT AND QRS, NO ST ELEVATION OR DEPRESSION BORDERLINE ECG Signed By: Dara Barrett DO 08/02/2020 14:46:14 Normal [facility] LDHon 08-02-2020 LDH [Catalytic activity/Vol] 170 Int._Unit/L Normal 93-218 [facility] Comment on above: Performed By: #### 2 [id number] #### [facility] [address] [place] [address] Lactic Acidon 08-02-2020 Lactate [Mass/Vol] 1.3 mmol/L Normal 0.5-2.2 [facility] Comment on above: Performed By: #### 2 [id number] #### [facility] [address] [place] [address] Lipid Panelon 08-02-2020 Cholesterol [Mass/Vol] 147 mg/dL Normal 120-200 [facility] Comment on above: Performed By: #### 2 [id number] #### [facility] [address] [place] [address] Cholesterol in HDL [Mass/Vol] 32 mg/dL [facility] Comment on above: Result Comment: HDL > or equal to 60 mg/dL: Low cardiovascular risk HDL < 40 mg/dL : High cardiovascular risk Performed By: #### 2 [id number] #### [facility] [address] [place] [address] Cholesterol in LDL [Mass/Vol] 97 mg/dL Normal <=129 [facility] Comment on above: Performed By: #### 2 [id number] #### [facility] [address] [place] [address] Cholesterol in VLDL [Mass/Vol] 16 mg/dL Normal 7-40 [facility] Comment on above: Performed By: #### 2 [id number] #### [facility] [address] [place] [address] Triglyceride [Mass/Vol] 79 mg/dL Normal <=[address] [facility] Comment on above: Performed By: #### 2 [id number] #### [facility] [address] [place] [address] Monitor Recordon 08-02-2020 Monitor Record [id number] :127 Normal [facility] Morphon 08-02-2020 Anisocytosis Ql (Bld) Present Normal [facility] Comment on above: Order Comment: Order Added by Discern Expert. Performed By: #### 2 [id number], [id number] #### [facility] [address] [place] [address] Hypochromia Auto Ql (Bld) Present Normal [facility] Comment on above: Order Comment: Order Added by Discern Expert. Performed By: #### 2 [id number], [id number] #### [facility] [address] [place] [address] Microcytes Ql (Bld) Present Normal [facility] Comment on above: Order Comment: Order Added by Discern Expert. Performed By: #### 2 [id number], [id number], [id number], [id number] #### [facility] [address] [place] [address] Morphology Dann (Bld) [Interp] See Morphology Normal [facility] Comment on above: Order Comment: Order Added by Discern Expert. Performed By: #### 2 [id number], [id number], [id number] #### [facility] [address] [place] [address] Anisocytosis Ql (Bld) Present Normal [facility] Comment on above: Order Comment: Order Added by Discern Expert. Performed By: #### 2 [id number] #### [facility] [address] [place] [address] Microcytes Ql (Bld) Present Normal [facility] Comment on above: Order Comment: Order Added by Discern Expert. Performed By: #### 2 [id number] #### [facility] [address] [place] [address] Morphology Dann (Bld) [Interp] See Morphology Normal [facility] Comment on above: Order Comment: Order Added by Discern Expert. Performed By: #### 2 [id number] #### [facility] [address] [place] [address] PT & PTTon 08-02-2020 aPTT Coag (PPP) [Time] 16.6 second(s) Low 25.1-36.5 [facility] Comment on above: Result Comment: Hepa rin therapeutic range (represented by Anti-Factor Xa activity of 0.2 - 0.4 U/mL) corresponds to PTT of 56.6 - 109.0 sec. Performed By: #### 2 [id number] #### [facility] [address] [place] [address] INR Coag (PPP) [Relative time] 1.1 {INR} [facility] Comment on above: Result Comment: INR results are specifically intended to assess patients stabilized on long-term Anticoagulation therapy suggested INR?s ?Less Intensive Anticoagulation? 2.0 ? 3.0 Conventional Range 3.0 ? 4.5 Performed By: #### 2 [id number] #### [facility] [address] [place] [address] PT Coag (PPP) [Time] 13.1 second(s) High 10.2-12.9 [facility] Comment on above: Performed By: #### 2 [id number] #### [facility] [address] [place] [address] Pre-Arrival Noteon Pre-Arrival Note Pre-Arrival Summary Name: ncems-left leg/calf pain, eta 1353 Current Date: 08/02/2020 14:05:44 EDT Gender: Female Date of : Age: 39 Pre-Arrival Type: EMS ETA: 08/02/2020 14:20:00 EDT Primary Care Physician: Presenting Problem: Pre-Arrival User: Lori Salas Referring Source: Location: [place] Completion Date/Time: 08/03/2020 13:49:00 [facility] Emergency Department Pre-Hospital Report Form Vital Signs: Pre-Hospital Report: Treatment in Route: Response to Treatment: Misc. Issues: Normal [facility] Progress Note-Nurseon 2020 Progress Note-Nurse Ultrasound at bedside Normal [facility] Rapid COVID Antigen ([facility])on 08-02-2020 Rapid COV Int NEG Ctl Pass Normal [facility] Comment on above: Performed By: #### 2 [id number] #### [facility] [address] [place] [address] Rapid COV Int POS Ctl Pass Normal [facility] Comment on above: Performed By: #### 2 [id number] #### [facility] [address] [place] [address] Rapid COVID Ag Not Detected Normal Not Detected [facility] Comment on above: Result Comment: The [employer]? System for Rapid Detection of SARS-CoV-2 is a chromatographic digital immunoassay intended for the direct and qualitative detection of SARS-CoV-2 nucleocapsid antigens in nasal swabs from individuals who are suspected of COVID-19 by their healthcare provider within the first five days of the onset of symptoms. Negative results should be treated as presumptive, do not rule out SARS-CoV-2 infection and should not be used as the sole basis for treatment or patient management decisions, including infection control decisions. Negative results should be considered in the context of a patient?s recent exposures, history and the presence of clinical signs and symptoms consistent with COVID-19, and confirmed with a molecular assay, if necessary, for patient management. For in vitro diagnostic use. In the [place], only for use under an Emergency Use Authorization. In the [place], this test has not been FDA cleared or approved; this test has been authorized by FDA under an EUA for use by authorized laboratories; use by laboratories certified under the CLIA, 42 U.S.C. ?263a, that meet requirements to perform moderate, high, or waived complexity tests and at the Point of Care (POC), i.e., in patient care settings operating under a CLIA Certificate of Waiver, Certificate of Compliance, or Certificate of Accreditation. This test has been authorized only for the detection of proteins from SARS-CoV-2, not for any other viruses or pathogens; and, in the [place], this test is only authorized for the duration of the declaration that circumstances exist justifying the authorization of emergency use of in vitro diagnostics for detection and/or diagnosis of the virus that causes COVID-19 under Section 564(b)(1) of the Act, 21 U.S.C. ? 360bbb-3(b)(1), unless the authorization is terminated or revoked sooner. Performed By: #### 2 [id number] #### [facility] [address] [place] [address] Employed in Healthcare NO Normal [facility] Comment on above: Performed By: #### 2 [id number] #### [facility] [address] [place] [address] First Test NO Normal [facility] Comment on above: Performed By: #### 2 [id number] #### [facility] [address] [place] [address] Hospitalized? YES Normal [facility] Comment on above: Performed By: #### 2 478174 #### [facility] [address] [place] [address] ICU NO Normal [facility] Comment on above: Performed By: #### 2 [id number] #### [facility] [address] [place] [address] ? Unknown Normal [facility] Comment on above: Performed By: #### 2 036172 #### [facility] [address] [place] [address] Resides in a [facility] Care Setting NO Normal [facility] Comment on above: Performed By: #### 2 466157 #### [facility] [address] [place] [address] Symptomatic as defined by CDC YES Normal [facility] Comment on above: Performed By: #### 2 [id number] #### [facility] [address] [place] [address] Retic Counton 08-02-2020 Reticulocytes (Bld) [#/Vol] 2.3 % High 0.5-1.5 [facility] Comment on above: Result Comment: This Reticulocyte Count Has Been Corrected For Anemia Performed By: #### 2 [id number], [id number], [id number], [id number] #### [facility] [address] [place] [address] TIBC Calculatedon 08-02-2020 Iron binding capacity [Mass/Vol] 319 microgram/dL Normal 250-400 [facility] Comment on above: Performed By: #### 2 [id number] #### [facility] [address] [place] [address] Transferrin [Mass/Vol] 228 mg/dL Normal 200-370 [facility] Comment on above: Performed By: #### 2 423089 #### [facility] [address] [place] [address] TSH With T4fr Reflexon 08-02 TSH Qn 3.17 mcIU/mL Normal 0.34-5.60 [facility] Comment on above: Performed By: #### 2 [id number] #### [facility] [address] [place] [address] Troponin 0 Hr.on 08-02-2020 Troponin I.cardiac [Mass/Vol] 5.10 pg/mL Low 10.10-27.10 [facility] Comment on above: Result Comment: The 95% CI (Confidence Interval) PPV (Positive Predictive Value) for myocardial infarction in females is 38 pg/mL, in males 51 pg/mL. The results should be used in conjunction with clinical conditions of myocardial infarction. (Access High Sensitivity Troponin I Instructions For Use, [email or web address], December 2017) Performed By: #### 2 [id number] #### [facility] [address] [place] [address] Troponin 3 Hr.on 08-02-2020 Troponin I.cardiac [Mass/Vol] 5.70 pg/mL Low 10.10-27.10 [facility] Comment on above: Result Comment: The 95% CI (Confidence Interval) PPV (Positive Predictive Value) for myocardial infarction in females is 38 pg/mL, in males 51 pg/mL. The results should be used in conjunction with clinical conditions of myocardial infarction. (Access High Sensitivity Troponin I Instructions For Use, [email or web address], December 2017) Performed By: #### 2 [id number] #### [facility] [address] [place] [address] US LE Venous Duplex Bilatera elio 08-02-2020 LE Venous Duplex Bilateral Exam Date/Time: 08/02/2020 15:44 EDT Reason for Exam: History of DVT Report IMPRESSION: EVIDENCE OF VENOUS THROMBOSIS INVOLVING THE DEEP FEMORAL, FEMORAL, AND POPLITEAL VEINS OF THE RIGHT DEEP VENOUS SYSTEM. NO EVIDENCE OF VENOUS THROMBOSIS INVOLVING VISUALIZED DEEP VEINS OF THE LEFT LEG. FINDINGS CONSISTENT WITH SUPERFICIAL VENOUS THROMBOSIS INVOLVING THE LEFT GREATER SAPHENOUS VEIN. CLINICAL HISTORY: History of DVT. Shortness of breath. Leg pain and swelling. COMMENT: On the right, there is flow and compressibility of the greater saphenous vein and common femoral vein. There is lack of compressibility of the right deep femoral, femoral, and popliteal veins, consistent with venous thrombosis. The right posterior tibial and peroneal deep calf veins are not visualized. On the left, there is flow and compressibility of the greater saphenous vein in the upper thigh, but there is lack of compressibility of the greater saphenous vein in the mid and lower thigh. On the left, there is flow and compressibility of the common femoral, deep femoral, femoral, and popliteal veins. The left posterior tibial and peroneal deep calf veins are not visualized. FINAL REPORT Dictated: 08/02/2020 8:59 pm Adalberto Griffin M.D. Signed (Electronic Signature): 08/02/2020 8:59 pm Signed by: Adalberto Griffin M.D. Transcribed by: EDENILSON Technologist: ADRI Castro [facility] XR Chest Single Viewon 08-02 XR Chest Single View Exam Date/Time: 08/02/2020 14:40 EDT Reason for Exam: Shortness of breath (SOB) Report IMPRESSION: NO EVIDENCE OF ACUTE CHEST DISEASE. CLINICAL HISTORY: Shortness of breath (SOB). COMMENT: AP portable. There is a right subclavian venous catheter, with the tip in the superior vena cava. The heart is upper limits of normal in size. There is mild mediastinal prominence. The central pulmonary vessels are mildly prominent. The up appearance of these structures may in part be related to the AP portable technique and less than deep respiration. No consolidated airspace opacification nor pleural effusion is evident. FINAL REPORT Dictated: 08/02/2020 8:29 pm Adalberto Griffin M.D. Signed (Electronic Signature): 08/02/2020 8:29 pm Signed by: Adalberto Griffin M.D. Transcribed by: EDENILSON Technologist: KEVIN Normal [facility] eGFRon 08-02-2020 GFR/1.73 sq M predicted among blacks MDRD (S/P/Bld) [Vol rate/Area] mL/min/{1.73_m2} Normal >=59 [facility] Comment on above: Order Comment: Order added by Discern Expert. Result Comment: eGFR is race adjusted. AA=. Performed By: #### 2 [id number], [id number], 3995258, [id number], [id number], [id number], [id number], [id number], [id number], [id number], [id number] #### [facility] [address] [place] [address] GFR/1.73 sq M predicted among non-blacks MDRD (S/P/Bld) [Vol rate/Area] mL/min/{1.73_m2} Normal >=59 [facility] Comment on above: Order Comment: Order added by Discern Expert. Result Comment: Sock Folder leola kidney disease could be indicated at eGFR's of less than 60 mL/min/1.73m2. Kidney failure is indicated at less than 15 mL/min/1.73m2. Performed By: #### 2 893191, [id number], [id number] [id number], [id number], [id number], [id number], [id number], [id number], [id number], [id number] #### [facility] [address] [place] [address] Hematology Consultationon Hematology Consultation Chief Complaint Diffuse large B cell lymphoma History of Present Illness Ms. Delfin Heart is a 39 year old female with past medical history of morbid obesity, DM, HTN, MDD/JOSÉ, GERD, TYLER, in addition to DLBCL. 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 The patient suffered significant infection with COVID-19 11/2019 with significant hospitalization and hypoxemia gradually recovering. Subsequently the patient began developing progressive right hip pain and discomfort and decreased mobility. Eventually this lead to further evaluation in 04/2020 that revealed a destructive mass in the right pelvis. Imaging 04/18/2020 with mass in the right ischium/inferior pubic ramus and right acetabulum with soft tissue extension as well as right iliac with iliac lymphadenopathy. 04/25 biopsy non diagnostic and the patient was transferred to [facility] for further evaluation. While at [facility] the patient had a core biopsy performed 05/05/2020 that was also non diagnostic. Further biopsy 05/2020 most consistent with aggressive B cell lymphoma consistent with DLBCL, GCB-SPLIT LEATHER MOSSER, non DEL/DHL (-FISH for BCL2, BCL6, MYC). Bone marrow aspiration and biopsy 05/22/2020 negative. PET scan 05/12/2020 with destructive lesion right ischium, inferior pubic ramus involving the posterior right acetabulum with surrounding soft tissue mass. Echo 05/23/2020 with LVEF 62%. Hepatitis testing negative. Received C1D1 R-CHOP +daily Neupogen given her co morbid conditions started on 05/22/2020 at [facility]. Discharged SNF given her debilitation and immobility from her destructive right hip pelvic mass. She presented as an outpatient 06/13/2020, however was admitted secondary to fever and treated for UTI with delayed therapy with C2 beginning 06/20/2020. Reports she did receive 1 transfusion during this cycle. She received C3 outpatient although while at [facility] which was received 07/11/2020. The patient presents for further outpatient management. The patient in significant discomfort today. States she took 1 Oxycodone at 4:00AM today, however did not think to take any before her trip as well as did not bring any with her. She remains in significant discomfort throughout our visit. Discussed how difficult the car ride was in regards to degree of discomfort. Recently transitioned from [facility] to her mother?s house in [place]. Significant concern about travel distance for therapy. This is the reason for transition of care more local although still notes significant travel distance associated with today?s visit. She is in visible discomfort today. This continues to be in the right hip location. She has no new pain. Denies any fevers, night sweats, unintentional weight loss. She states toxicities with chemotherapy including mild continuous neuropathy in her distal extremities, oral and esophageal discomfort, fatigue, nausea with associated vomiting. She has no fevers or other signs of infection. Review of Systems 10 point review of systems reviewed and negative other than HPI Physical Exam Vitals & Measurements T: 36.3 ?C (Oral) BP: 121/73 SpO2: 97% HT: 180 cm HT: 180 cm ECOG performance status: 0 Constitutional: No acute distress, alert and oriented x3, visible discomfort, obese HEENT: Normocephalic atraumatic, moist mucous membranes, conjunctivae non-injected without lesion Neck: Supple, no rigidity, no lymphadenopathy Cardiac: Regular rate and rhythm without murmur or gallop Respiratory: Clear to auscultation bilaterally without wheeze, rhonchi or rale Abdomen: Soft non tender, non distended, bowel sounds positive, no hepatosplenomegaly Extremities: No clubbing, cyanosis or edema Neurologic: Cranial nerves 2-12 intact, no focal deficits Skin: Intact without visible lesion or rash Lymph Node survey: No cervical, axillary or inguinal lymphadenopathy Laboratory Studies: No new labs. As in HPI Assessment/Plan 39 year old female with past medical history of morbid obesity, DM, HTN, MDD/JOSÉ, GERD, TYLER, in addition to DLBCL. 1. Non-Hodgkin lymphoma ? DLBCL. GCB/SPLIT LEATHER MOSSER. [place] stage IIE. IPI low risk/1. 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 Diagnosed with progressive right hip pain and found to have destructive right pelvic mass with biopsy suggestive of DLBCL. Started on standard R-CHOP 05/2020, status post 3 cycles. - Today I spent significant time with Lisa and her mother reviewing her treatment history thus far. The patient has had a complicated course with issues including urinary tract infection with delay in C2, hyperglycemia requiring insulin, decreased mobility and function from her destructive right hip mas, complicated by morbid obesity. She has no symptoms today. I reviewed with her and her mother diagnosis of non-Hodgkin lymphoma. Reviewed that this is a potentially curable malignancy by systemic therapy with targeted therapy with Rituxan as relative standard of care. Discussed in some situations can consider radiotherapy for localized disease and palliation. Reviewed the recommendations from Dr. Carias (more content not included)... Normal [facility] BETA HCG, QUAL, BLOODon 03-0 HCG (Qual) Serum Negative Normal Negative [facility] Comment on above: Performed By: #### C A, LDO, CHM7, MGO, BILI, ASTO #### [facility] (DEFAULT) [address] [place] [address] CALCIUMon 07-11-2020 Calcium [Mass/Vol] 8.6 mg/dL Normal 8.6-10.5 [facility] Comment on above: Performed By: #### C A, LDO, CHM7, MGO, BILI, ASTO #### [facility] (DEFAULT) [address] [place] [address] 78114 CBC AND ELECTRONIC DIFFon Basophils (Bld) [#/Vol] 0.07 10*3/uL Normal 0.00-0.15 [facility] Comment on above: Performed By: #### C A, LDO, CHM7, MGO, BILI, ASTO #### [facility] (DEFAULT) [address] [place] [address] 73532 Basophils/100 WBC (Bld) 1.1 % Normal O [facility] Comment on above: Performed By: #### C A, LDO, CHM7, MGO, BILI, ASTO #### [facility] (DEFAULT) [address] [place] [address] 51117 DIFF STATUS Electronic Differential Normal [facility] Comment on above: Performed By: #### C A, LDO, CHM7, MGO, BILI, ASTO #### [facility] (DEFAULT) [address] [place] [address] 04309 Eosinophils (Bld) [#/Vol] 0.07 10*3/uL Normal 0.00-0.42 [facility] Comment on above: Performed By: #### C A, LDO, CHM7, MGO, BILI, ASTO #### [facility] (DEFAULT) [address] [place] [address] 25801 Eosinophils/100 WBC (Bld) 1.1 % Normal [facility] Comment on above: Performed By: #### C A, LDO, CHM7, MGO, BILI, ASTO #### [facility] (DEFAULT) [address] [place] [address] 60977 Hematocrit (Bld) [Volume fraction] 34.3 % Low 34.9-44.3 [facility] Comment on above: Performed By: #### C A, LDO, CHM7, MGO, BILI, ASTO #### [facility] (DEFAULT) [address] [place] [address] 80460 Hemoglobin (Bld) [Mass/Vol] 10.2 g/dL Low 11.4-15.2 [facility] Comment on above: Performed By: #### C A, LDO, CHM7, MGO, BILI, ASTO #### [facility] (DEFAULT) [address] [place] [address] 11494 Immature Grans % 0.5 % Normal [facility] Comment on above: Performed By: #### C A, LDO, CHM7, MGO, BILI, ASTO #### [facility] (DEFAULT) [address] [place] [address] 78366 Immature Grans Absolute <0.04 Normal <=0.09 O [facility] Comment on above: Performed By: #### C A, LDO, CHM7, MGO, BILI, ASTO #### [facility] (DEFAULT) [address] [place] [address] 87072 Lymphocytes (Bld) [#/Vol] 0.67 10*3/uL Low 1.16-3.51 [facility] Comment on above: Performed By: #### C A, LDO, CHM7, MGO, BILI, ASTO #### [facility] (DEFAULT) [address] [place] [address] 33118 Lymphocytes/100 WBC (Bld) 10.1 % Normal [facility] Comment on above: Performed By: #### C A, LDO, CHM7, MGO, BILI, ASTO #### [facility] (DEFAULT) [address] [place] [address] 97078 MCV (RBC) [Entitic vol] 80.5 fL Normal 79.6-97.7 O [facility] Comment on above: Performed By: #### C A, LDO, CHM7, MGO, BILI, ASTO #### [facility] (DEFAULT) [address] [place] [address] 38540 Mean Cell Hgb 23.9 pg Low 25.9-33.9 [facility] Comment on above: Performed By: #### C A, LDO, CHM7, MGO, BILI, ASTO #### [facility] (DEFAULT) [address] [place] [address] 92571 Mean Cell Hgb Conc 29.7 g/dL Low 31.4-35.9 [facility] Comment on above: Performed By: #### C A, LDO, CHM7, MGO, BILI, ASTO #### [facility] (DEFAULT) [address] [place] [address] 90309 Monocytes (Bld) [#/Vol] 0.55 10*3/uL Normal 0.22-0.87 [facility] Comment on above: Performed By: #### C A, LDO, CHM7, MGO, BILI, ASTO #### [facility] (DEFAULT) [address] [place] [address] 20707 Monocytes/100 WBC (Bld) 8.3 % Normal O [facility] Comment on above: Performed By: #### C A, LDO, CHM7, MGO, BILI, ASTO #### [facility] (DEFAULT) [address] [place] [address] 02581 Nucleated RBC 0.0 /100 WBC Normal <=0.2 [facility] Comment on above: Performed By: #### C A, LDO, CHM7, MGO, BILI, ASTO #### [facility] (DEFAULT) [address] [place] [address] 44069 Platelet mean volume (Bld) [Entitic vol] 11.5 fL Normal 8.5-12.2 [facility] Comment on above: Performed By: #### C A, LDO, CHM7, MGO, BILI, ASTO #### [facility] (DEFAULT) [address] [place] [address] 39298 Platelets (Bld) [#/Vol] 213 10*3/uL Normal 150-393 [facility] Comment on above: Performed By: #### C A, LDO, CHM7, MGO, BILI, ASTO #### [facility] (DEFAULT) [address] [place] [address] 07480 RBC (Bld) [#/Vol] 4.26 10*6/uL Normal 3.91-5.04 [facility] Comment on above: Performed By: #### C A, LDO, CHM7, MGO, BILI, ASTO #### [facility] (DEFAULT) [address] [place] [address] 84275 RBC Distribution 19.6 % High 10.8-14.9 [facility] Comment on above: Performed By: #### C A, LDO, CHM7, MGO, BILI, ASTO #### [facility] (DEFAULT) [address] [place] [address] 41711 Segs + Bands Auto 78.9 % Normal [facility] Comment on above: Performed By: #### C A, LDO, CHM7, MGO, BILI, ASTO #### [facility] (DEFAULT) [address] [place] [address] 35958 Segs + Bands,Absolute Auto 5.23 K/uL Normal 1.64-7.28 [facility] Comment on above: Performed By: #### C A, LDO, CHM7, MGO, BILI, ASTO #### [facility] (DEFAULT) [address] [place] [address] 04952 WBC (Bld) [#/Vol] 6.62 10*3/uL Normal 3.99-11.19 [facility] Comment on above: Performed By: #### C A, LDO, CHM7, MGO, BILI, ASTO #### [facility] (DEFAULT) [address] [place] [address] 02027 CHEM 6 (LYTES, BUN CREA)on 0 07-11-2020 Anion gap [Moles/Vol] 10 mmol/L Normal 7-17 [facility] Comment on above: Performed By: #### C A, LDO, CHM7, MGO, BILI, ASTO #### [facility] (DEFAULT) [address] [place] [address] 22967 Chloride [Moles/Vol] 110 mmol/L High 98-108 [facility] Comment on above: Performed By: #### C A, LDO, CHM7, MGO, BILI, ASTO #### [facility] (DEFAULT) [address] [place] [address] 19005 CO2 [Moles/Vol] 24 mmol/L Normal 22-30 [facility] Comment on above: Performed By: #### C A, LDO, CHM7, MGO, BILI, ASTO #### [facility] (DEFAULT) [address] [place] [address] 59270 Creatinine [Mass/Vol] 0.63 mg/dL Normal 0.50-1.20 [facility] Comment on above: Performed By: #### C A, LDO, CHM7, MGO, BILI, ASTO #### [facility] (DEFAULT) [address] [place] [address] 23470 EST GFR, >=60 Normal >=60 [facility] Comment on above: Performed By: #### C A, LDO, CHM7, MGO, BILI, ASTO #### [facility] (DEFAULT) [address] [place] [address] 65265 EST GFR,Non >=60 Normal >=60 [facility] Comment on above: Performed By: #### C A, LDO, CHM7, MGO, BILI, ASTO #### [facility] (DEFAULT) [address] [place] [address] 88217 Potassium [Moles/Vol] 3.8 mmol/L Normal 3.5-5.0 [facility] Comment on above: Performed By: #### C A, LDO, CHM7, MGO, BILI, ASTO #### [facility] (DEFAULT) [address] [place] [address] 79531 Sodium [Moles/Vol] 140 mmol/L Normal 133-143 [facility] Comment on above: Performed By: #### C A, LDO, CHM7, MGO, BILI, ASTO #### [facility] (DEFAULT) [address] [place] [address] 80286 Urea nitrogen [Mass/Vol] 13 mg/dL Normal 7-22 [facility] Comment on above: Performed By: #### C A, LDO, CHM7, MGO, BILI, ASTO #### [facility] (DEFAULT) [address] [place] [address] 50333 Urea nitrogen/Creatinine [Mass ratio] 21 mg/mg Normal [facility] Comment on above: Performed By: #### C A, LDO, CHM7, MGO, BILI, ASTO #### [facility] (DEFAULT) [address] [place] [address] 47082 GLUCOSEon 07-11-2020 Glucose [Mass/Vol] 128 mg/dL High 70-99 [facility] Comment on above: Order Comment: If ruby germain is diabetic or on steroids Performed By: #### X M #### [facility] (DEFAULT) [address] [place] [address] 67874 HEPATIC FUNCTION PANELon Albumin [Mass/Vol] 3.7 g/dL Normal 3.5-5.0 [facility] Comment on above: Performed By: #### C A, LDO, CHM7, MGO, BILI, ASTO #### [facility] (DEFAULT) [address] [place] [address] 46837 ALP [Catalytic activity/Vol] 73 U/L Normal 32-126 [facility] Comment on above: Performed By: #### C A, LDO, CHM7, MGO, BILI, ASTO #### [facility] (DEFAULT) [address] [place] [address] 54658 ALT [Catalytic activity/Vol] 12 U/L Normal 9-48 [facility] Comment on above: Performed By: #### C A, LDO, CHM7, MGO, BILI, ASTO #### [facility] (DEFAULT) [address] [place] [address] 67599 AST [Catalytic activity/Vol] 19 U/L Normal 14-40 [facility] Comment on above: Performed By: #### C A, LDO, CHM7, MGO, BILI, ASTO #### [facility] (DEFAULT) [address] [place] [address] 45360 Bilirubin [Mass/Vol] 0.5 mg/dL Normal <1.5 [facility] Comment on above: Performed By: #### C A, LDO, CHM7, MGO, BILI, ASTO #### [facility] (DEFAULT) [address] [place] [address] 10592 Bilirubin.indirect [Mass/Vol] 0.1 mg/dL Normal <0.3 [facility] Comment on above: Performed By: #### C A, LDO, CHM7, MGO, BILI, ASTO #### [facility] (DEFAULT) [address] [place] [address] 37389 Protein [Mass/Vol] 6.1 g/dL Low 6.4-8.3 [facility] Comment on above: Performed By: #### C A, LDO, CHM7, MGO, BILI, ASTO #### [facility] (DEFAULT) [address] [place] [address] 89179 LACTATE DEHYDROGENASEon 03-0 -2020 LD Total 172 U/L Normal 100-190 [facility] Comment on above: Performed By: #### X M #### [facility] ([facility]) [address] [place] [address] Basic Metabolic Panelon 06-10 Anion gap [Moles/Vol] 7.0 mmol/L Normal 6.0-18.0 [facility] Comment on above: Performed By: #### 1 0839-9, 02435-9, 05501-8r0, 87975-2 #### [facility] [address], [place] Calcium [Mass/Vol] 8.6 mg/dL Low 8.9-10.3 [facility] Comment on above: Performed By: #### 1 0839-9, 51533-2, 29991-2q1, 06187-8 #### [facility] [address], [place] Chloride [Moles/Vol] 109 mmol/L High 98-107 [facility] Comment on above: Performed By: #### 1 0839-9, 03490-8, 84963-2z1, 13120-8 #### [facility] [address], [place] CO2 [Moles/Vol] 26 mmol/L Normal 22-32 [facility] Comment on above: Performed By: #### 1 0839-9, 41432-2, 19387-0m9, 28875-8 #### [facility] [address], [place] Creatinine [Mass/Vol] 0.63 mg/dL Normal 0.60-1.30 Bailey [facility] Comment on above: Performed By: #### 1 0839-9, 73803-8, 79575-8x0, 89526-1 #### [facility] [address], [place] Glucose [Mass/Vol] 107 mg/dL High 70-99 [facility] Comment on above: Result Comment: U pdated ADA Reference Range A normal fasting glucose concentration is less than 100 mg/dL. An impaired fasting glucose concentration is 100-125 mg/dL. A provisional diagnosis of diabetes mellitus can be made when a fasting glucose concentration is greater than 125 mg/dL. Performed By: #### 1 0839-9, 31628-9, 18930-3z7, 88989-6 #### [facility] [address], [place] Potassium [Moles/Vol] 3.6 mmol/L Normal 3.6-5.1 Bailey [facility] Comment on above: Performed By: #### 1 0839-9, 57674-2, 47247-1d6, 97154-6 #### [facility] [address], [place] Sodium [Moles/Vol] 142 mmol/L Normal 136-145 [facility] Comment on above: Performed By: #### 1 0839-9, 97432-4, 12876-7k3, 74412-7 #### [place] [address], [place] Urea nitrogen (BldV) [Mass/Vol] 7 mg/dL Low 8-20 [facility] Comment on above: Performed By: #### 1 0839-9, 51191-0, 03336-2u0, 22445-4 #### [facility] [address], [place] CBC with Differentialon 06-10 Erythrocyte distribution width (RBC) [Entitic vol] 18.7 % High 11.0-14.8 [facility] Comment on above: Performed By: #### 2 4318-8, 26639-0 #### [facility] [address], [place] Hematocrit (Bld) [Volume fraction] 28.5 % Low 35.0-45.0 [facility] Comment on above: Performed By: #### 2 4318-8, 09478-5 #### [facility] [address], [place] Hemoglobin (Bld) [Mass/Vol] 8.9 g/dL Low 12.0-16.0 [facility] Comment on above: Performed By: #### 2 4318-8, 64625-5 #### [facility] [address], [place] MCH (RBC) [Entitic mass] 24.2 Picograms Low 27.0-34.0 [facility] Comment on above: Performed By: #### 2 4317-8, 11082-4 #### [facility] [address], [place] MCHC (RBC) [Mass/Vol] 31.3 g/dL Low 32.0-36.0 [facility] Comment on above: Performed By: #### 2 4317-8, 84754-8 #### [facility] [address], [place] MCV (RBC) [Entitic vol] 77.4 fL Low 80.0-97.0 M [facility] Comment on above: Performed By: #### 2 4317-8, 16335-4 #### [facility] [address], [place] Platelet mean volume (Bld) [Entitic vol] 9.4 fL Normal 6.2-12.1 [facility] Comment on above: Performed By: #### 2 4317-8, 46524-4 #### [facility] [address], [place] Platelets (Bld) [#/Vol] 149 thou/mcL Normal 142-424 [facility] Comment on above: Performed By: #### 2 4317-8, 47702-6 #### [facility] [address], [place] RBC (Bld) [#/Vol] 3.68 million/mcL Low 3.80-5.10 M [facility] Comment on above: Performed By: #### 2 4317-8, 00034-7 #### [facility] [address], [place] WBC (Bld) [#/Vol] 4.3 thou/mcL Low 4.6-10.2 [facility] Comment on above: Performed By: #### 2 4317-8, 80316-3 #### [facility] [address], [place] Differential Manualon 2020 Anisocytosis Ql (Bld) 2+ Abnormal [facility] Comment on above: Performed By: #### 2 4317-8, 76483-5 #### [facility] [address], [place] Band form neutrophils/100 WBC (Bld) 8 % Normal [facility] Comment on above: Performed By: #### 2 4317-8, 28667-2 #### [facility] [address], [place] Basophils/100 WBC (Bld) 1 % Normal 0-2 M [facility] Comment on above: Performed By: #### 2 4317-8, 02760-4 #### [facility] [address], [place] Cells Counted Total (Bld) [#] 100 {cells} Normal [facility] Comment on above: Performed By: #### 2 4317-8, 64232-1 #### [facility] [address], [place] Dacrocytes LM Ql (Bld) 1+ Normal Mo [facility] Comment on above: Performed By: #### 2 4317-8, 13236-0 #### [facility] [address], [place] Dohle body LM Ql (Bld) 1+ Normal Mo [facility] Comment on above: Performed By: #### 2 4317-8, 96219-2 #### [facility] [address], [place] Eosinophils/100 WBC (Bld) 7 % Normal 0-7 [facility] Comment on above: Performed By: #### 2 4317-8, 69197-1 #### [facility] [address], [place] Hypochromia Ql (Bld) 1+ Normal [facility] Comment on above: Performed By: #### 2 4317-8, 60144-1 #### [facility] [address], [place] Lymphocytes/100 WBC (Bld) 20 % Low 22-44 [facility] Comment on above: Performed By: #### 2 4317-8, 80688-1 #### [facility] [address], [place] Microcytes Ql (Bld) 1+ Normal [facility] Comment on above: Performed By: #### 2 4317-8, 61090-1 #### [facility] [address], [place] Monocytes/100 WBC (Bld) 14 % High 0-12 M [facility] Comment on above: Performed By: #### 2 4317-8, 38757-5 #### [facility] [address], [place] Neutrophils (Bld) [#/Vol] 2.49 thou/mcL Normal 1.80-7.70 [facility] Comment on above: Result Comment: CALC ULATION BASED ON THE MANUAL DIFFERENTIAL RESULTS. Performed By: #### 2 4317-8, 91607-1 #### [facility] [address], [place] Nucleated RBC/100 WBC (Bld) [Ratio] 3 Cells High 0-0 [facility] Comment on above: Performed By: #### 2 4317-8, 98939-8 #### [facility] [address], [place] Ovalocytes LM Ql (Bld) 1+ Normal [facility] Comment on above: Performed By: #### 2 4317-8, 13642-2 #### [facility] [address], [place] Polychromasia LM Ql (Bld) 1+ Normal [facility] Comment on above: Performed By: #### 2 4317-8, 93829-6 #### [facility] [address], [place] Segmented neutrophils/100 WBC (Bld) 50 % Normal 40-70 [facility] Comment on above: Performed By: #### 2 4317-8, 73401-2 #### [facility] [address], [place] Toxic granules LM Ql (Bld) 1+ Normal [facility] Comment on above: Performed By: #### 2 4318-8, 73086-2 #### [facility] [address], [place] ED Pat Eduon 06-30-2020 ED Pat Edu [facility] [address] [place], [place] [id number] Emergency Department Discharge Instructions ENEDELIA LISA , Please provide this information to your Primary Care/Specialist Name : LISA MCDANIELS Current Date : 06/30/2020 03:00:36 : 1980 Primary Care Physician : Divine Herrera MD Diagnosis: Follow-Up Instructions: LISA MCDANIELS has been given these follow-up instructions: FOLLOW-UP APPOINTMENTS: Provider: Specialty: Address: Date: Divine Herrera MD Internal Medicine [address] [place], [place] [id number] (0) Follow-up as needed Laboratory Orders: Name: Status: Basic Metabolic Panel Completed CBC with Differential Completed Troponin I Completed Hold Clot (Blood Bank) Completed GFRaa Completed GFRbb Completed Differential Manual Completed Differential Manual Completed Radiology Orders: Name: Status: XR Chest 2 Views Completed Diagnostic Tests: Name: Status: ECG 12 Lead Ordered Procedure(s) and Patient Education(s) : Nonspecific Chest Pain EMERGENCY SERVICES MEDICATION LIST Lista de Medicaciones de los Servicios de Emergencia Name LISA MCDANIELS MRN ([facility])-[id number] PLEASE READ THE FOLLOWING REGARDING YOUR MEDICATIONS Based on the information available during your visit we have given you the medication instructions below. Continue taking medications you took prior to your visit unless you have been told to change. Please share this information with your own doctor. Carry a list of your medications with you in case of an emergency. Update it when medications are stopped, doses are changed, or new medications (including tdii-ddc-ltobrjx products) are added. If you have any questions, check with your doctor. Por la informaci??n disponible papa hanna visita, las instrucciones de medicaci??n aparecen debajo. Favor de continuar tomando las medicaciones Ud. toan?? antes de hanna visita por lo menos que hay cambios. Favor de compartir esta informaci??n con hanna medico. Lleva arnel lista de medicaciones consigo por lucho de emergenc??a. Actualiza la lista cuando Ud. anni de emre las medicaciones, si cambian las dosis, o si hay nuevas medicaciones a??adidas (incluyendo medicaciones vendidas sin prescripci??n). Favor de preguntar a hanna medico por cualquier eduardo. THESE ARE THE MEDICATIONS YOU SHOULD BE TAKING No Medications Documented MEDICATIONS GIVEN DURING MEDICAL VISIT acetaminophen-hydrocodon e 2 Tab last dose given on 06/30/2020 at 02:42 Route: By Mouth Maximum 4 Gm Acetaminophen/Day for Adults NON-MEDICATION PRESCRIPTION SCHEDULING PHONE NUMBER: MEDICATION CHANGE DETAILS (Not your Final Home Medication List) During the course of your visit, your home medication list was updated with the most current information. The details of those changes are shown below: NEW MEDICATIONS None UPDATED MEDICATIONS None UNCHANGED MEDICATIONS None STOP TAKING THESE MEDICATIONS None DO NOT TAKE UNTIL YOU TALK TO YOUR DOCTOR None [address] [address] Emergency Department Discharge Instructions Name: LISA MCDANIELS Current Date: 06/30/2020 03:00:36 : 1980 Primary Physician: Javier ARNETT , Divine Galvin We would like to thank you for choosing [facility] for your emergency medical needs. We examined and treated you today on an emergency basis only. This was not a substitute for, or an effort to provide, complete medical care. In most cases, you must let your doctor (or the doctor we referred you to) check you again. Tell your doctor about any new or lasting problems. We cannot recognize and treat all injuries or illnesses in one emergency department visit. After you leave, you should follow the directions attached. Instructions for obtaining X-rays: When following up with your doctor or a bone doctor, you may need to take copies of your x-rays that were done in the Emergency Department. If you didn't receive these upon your discharge from the emergency department, please call . When the final report becomes available and it is reviewed, the emergency department will attempt to contact you if there are any changes in your instructions. It is important that you leave accurate information with us on how to contact you. IF you cannot be contacted, YOU must contact the follow-up doctor that you were assigned to make sure that the final official x-ray report does not require a change in your treatment. Instructions for obtaining medical records: If you need a copy of your medical records for follow-up, please contact the Health Information Management Department at . Their office hours are 8 AM- 4:30 PM, Tuesday through Tuesday. Please note: Results are not immediately available. Please allow a minimum of 48 hours for documentation and results. If you were prescribed an antibiotic: Antibiotics are life-saving drugs and they need to be used properly. Your team might change your antibiotic because test results show that a different antibiotic would be better to treat your infection. Like all medications, antibiotics have side effects. Some can be serious. This includes the risk of getting an antibiotic-resistant infection later, which may be difficult to treat. Remember to take your antibiotics as prescribed. If you have any questions please talk to your healthcare team. Seatbelts: There is no doubt that seatbelts save lives. Every day, people without seatbelts have more serious injuries. Have everyone buckle up, using age appropriate seatbelts or car seats, to reduce their risk of injury. Smoking: If you do smoke, we encourage you to stop. Smoking affects all aspects of your health and the health of those around you. [facility] offers many resources to help with smoking cessation. Call the [place] Tobacco Quit Line at 4-365-BKOS-NOW ( ). High blood pressure: Your screening blood pressure today was 118 mm Hg / 59 mm Hg. Hypertension (high blood pressure) is blood pressure over 120/80. People with hypertension should contact their primary care provider within 30 days to follow up. Check your patient portal for additional blood pressure information. Immunizations: Immunization is a way to protect against deadly infections. Discuss this with your child's graduate assistant athletic trainer, or Public Health Department. Your family practice doctor can determine if you need pneumonia or flu vaccine. The [facility] Department can be reached at . Substance Abuse Program: Concerns with addiction to alcohol, benzodiazepines (Ativan or Xanax) and Opiates (Heroin, Percocet, OxyContin, Methadone or Fentanyl)? [facility] offers an inpatient Substance Abuse Program to help treat the symptoms associated with medical detoxification of addictive substances. The new program offers care for non- adults (18 and older) looking to break the chain to addictive chemicals. The Substance Abuse Program is a voluntary inpatient admission and it starts with a pre-screening phone call to a social services. During the call, goals and objectives for recovery and how the patient will transition to outpatient care will be established. Please call [phone] to get help today. Domestic Violence: If you are a victim of domestic violence (physical, verbal, or emotional), you are not alone. Discuss this with your physician or a friend and call the [place] Domestic Violence Hotline or [place] Domestic Violence Hotline for assistance and support. You are the most important factor in your recovery. Follow the provided instructions carefully. Take your medications as prescribed. Most importantly, see a doctor again as discussed. If you have problems that we have not discussed, call or visit your doctor right away. If you do not have a primary care physician, we have provided one for you to follow up with. When you call for an appointment, please inform them that you were seen in the emergency department and the date of your visit. If you are unable to reach your doctor and are still experiencing problems, return to the emergency department. For assistance finding a primary care physician, call the Physician Referral Line at [phone] ([phone]). Suicide Hotline: Your mental and emotional well-being is important. If you are in a mental health crisis or are having thoughts of suicide, please call the nationwide suicide hotline, anytime day or night, at 7-211-400-AJTE (4875). Community Technical Administrative Assistant: You may be contacted by your local fire department for a follow up visit from a community shingles roofer. The community shingles roofer can help with a home safety check; follow up care, and general home care management. myHealth: With [employer] online patient portal you can check your hospital medical information any time, review and keep track of prescriptions, quickly access radiology and basic lab results, review all of your immunizations, allergies and medical history. In addition you can view your account balances and make payments online as well as manage a [employer] account for another adult such as spouse, parent or friend. Based on the tests ordered, there may be a delay in results posting to the patient portal. It's easy to sign up for [employer]: 1. Visit [employer] 2. Click on ??[place] for [employer]' 3. Verify your identity by entering your last name and date of (MM/DD/YYYY) 4. You'll be asked to set up a username and password. 5. Next, you'll create three security questions. Be sure to supply answers that are not easy for others to guess or discover. 6. If all information (first name, last name and date of ) matches what we have on file, we'll then send a PIN to your phone that you'll be asked to enter. 7. When your identity is verified, you'll be able to access your patient record. 8. Once all of this is complete and you've successfully activated your account, you'll be redirected to the [employer] login page. Login and check to see your results. Questions? For help with account enrollment, call [employer] Customer Support toll-free at [phone]. Pharmacy Information: Below is a list of 24 hour pharmacies that we are aware of. We suggest that you call the specific pharmacy for their hours before traveling to a location. Hours may vary on holidays. [facility] [address] [place], [place] [address] [address] [place], [place] [id number] [address] [place], [place] [id number] [address], [place] [id number] [address] [place], [place] [address] Take all medications as directed. If you need prescription assistance, contact the following agencies: ?? Partnership for Prescription Assistance at or www.pparx.org ?? [facility] Best Rx at or www.Fundabilitybestrx.org ?? www.[employer]abase is a site with many valuable coupons Patient Education Materials TOBIN-LISA [employer]ART has been given the following patient education materials: Cardiovascular Nonspecific Chest Pain Chest pain can be caused by many different conditions. There is always a chance that your pain could be related to something serious, such as a heart attack or a blood clot in your lungs. Chest pain can also be caused by conditions that are not life-threatening. If you have chest pain, it is very important to follow up with your health care provider. CAUSES Chest pain can be caused by: ?? Heartburn. ?? Pneumonia or bronchitis. ?? Anxiety or stress. ?? Inflammation around your heart (pericarditis) or lung (pleuritis or pleurisy). ?? A blood clot in your lung. ?? A collapsed lung (pneumothorax). It can develop suddenly on its own (spontaneous pneumothorax) or from trauma to the chest. ?? Shingles infection (varicella-zoster virus). ?? Heart attack. ?? Damage to the bones, muscles, and cartilage that make up your chest wall. This can include: ? Bruised bones due to injury. ? Strained muscles or cartilage due to frequent or repeated coughing or overwork. ? Fracture to one or more ribs. ? Sore cartilage due to inflammation (costochondritis). RISK FACTORS Risk factors for chest pain may include: ?? Activities that increase your risk for trauma or injury to your chest. ?? Respiratory infections or conditions that cause frequent coughing. ?? Medical conditions or overeating that can cause heartburn. ?? Heart disease or family history of heart disease. ?? Conditions or health behaviors that increase your risk of developing a blood clot. ?? Having had chicken pox (varicella zoster). SIGNS AND SYMPTOMS Chest pain can feel like: ?? Burning or tingling on the surface of your chest or deep in your chest. ?? Crushing, pressure, aching, or squeezing pain. ?? Dull or sharp pain that is worse when you move, cough, or take a deep breath. ?? Pain that is also felt in your back, neck, shoulder, or arm, or pain that spreads to any of these areas. Your chest pain may come and go, or it may stay constant. DIAGNOSIS Lab tests or other studies may be needed to find the cause of your pain. Your health care provider may have you take a test called an ambulatory ECG (electrocardiogram). An ECG records your heartbeat patterns at the time the test is performed. You may also have other tests, such as: ?? Transthoracic echocardiogram (TTE). During echocardiography, sound waves are used to create a picture of all of the heart structures and to look at how blood flows through your heart. ?? Transesophageal echocardiogram (MIRYAM). This is a more advanced imaging test that obtains images from inside your body. It allows your health care provider to see your heart in finer detail. ?? Cardiac monitoring. This allows your health care provider to monitor your heart rate and rhythm in real time. ?? Holter monitor. This is a portable device that records your heartbeat and can help to diagnose abnormal heartbeats. It allows your health care provider to track your heart activity for several days, if needed. ?? Stress tests. These can be done through exercise or by taking medicine that makes your heart beat more quickly. ?? Blood tests. ?? Imaging tests. TREATMENT Your treatment depends on what is causing your chest pain. Treatment may include: ?? Medicines. These may include: ? Acid blockers for heartburn. ? Anti-inflammatory medicine. ? Pain medicine for inflammatory conditions. ? Antibiotic medicine, if an infection is present. ? Medicines to dissolve blood clots. ? Medicines to treat coronary artery disease. ?? Supportive care for conditions that do not require medicines. This may include: ? Resting. ? Applying heat or cold packs to injured areas. ? Limiting activities until pain decreases. HOME CARE INSTRUCTIONS ?? If you were prescribed an antibiotic medicine, finish it all even if you start to feel better. ?? Avoid any activities that bring on chest pain. ?? Do not use any tobacco products, including cigarettes, chewing tobacco, or electronic cigarettes. If you need help quitting, ask your health care provider. ?? Do not drink alcohol. ?? Take medicines only as directed by your health care provider. ?? Keep all follow-up visits as directed by your health care provider. This is important. This includes any further testing if your chest pain does not go away. ?? If heartburn is the cause for your chest pain, you may be told to keep your head raised (elevated) while sleeping. This reduces the chance that acid will go from your stomach into your esophagus. ?? Make lifestyle changes as directed by your health care provider. These may include: ? Getting regular exercise. Ask your health care provider to suggest some activities that are safe for you. ? Eating a heart-healthy diet. A registered dietitian can help you to learn healthy eating options. ? Maintaining a healthy weight. ? Managing diabetes, if necessary. ? Reducing stress. SEEK MEDICAL CARE IF: ?? Your chest pain does not go away after treatment. ?? You have a rash with blisters on your chest. ?? You have a fever. SEEK IMMEDIATE MEDICAL CARE IF: ?? Your chest pain is worse. ?? You have an increasing cough, or you cough up blood. ?? You have severe abdominal pain. ?? You have severe weakness. ?? You faint. ?? You have chills. ?? You have sudden, unexplained chest discomfort. ?? You have sudden, unexplained discomfort in your arms, back, neck, or jaw. ?? You have shortness of breath at any time. ?? You suddenly start to sweat, or your skin gets clammy. ?? You feel nauseous or you vomit. ?? You suddenly feel light-headed or dizzy. ?? Your heart begins to beat quickly, or it feels like it is skipping beats. These symptoms may represent a serious problem that is an emergency. Do not wait to see if the symptoms will go away. Get medical help right away. Call your local emergency services (911 in the [place] Do not drive yourself to the hospital. This information is not intended to replace advice given to you by your health care provider. Make sure you discuss any questions you have with your health care provider. Document Released: 02/02/2006 Document Revised: 05/16/2015 Document Reviewed: 11/29/2014 [employer] Interactive Patient Education ??2016 [employer] <><><><><><><><><><><><> <><><><><><><><><><><><> <><> Patient Visit Summary Signature LISA MCDANIELS has been given the following list of patient education materials, prescriptions and follow-up instructions: ENEDELIA Perez JULIE, have received the above patient education materials/instructions and have verbalized understanding: Date Time Patient Signature Date Time Provider Signature [facility] GFRaaon 06-30-2020 GFR/1.73 sq M predicted among blacks MDRD (S/P/Bld) [Vol rate/Area] mL/min/{1.73_m2} [facility] Comment on above: Result Comment: The MDRD equation has not been validated for those over 70 years, women, patients with serious co-morbid conditions, or with extremes of body size, muscle mass of nutritional status. Performed By: #### 1 0839-9, 61087-3, 88249-7j1, 93733-2 #### [address] GFRbbon 06-30-2020 GFR/1.73 sq M predicted among non-blacks MDRD (S/P/Bld) [Vol rate/Area] mL/min/{1.73_m2} [facility] Comment on above: Performed By: #### 1 0839-9, 63357-5, 81236-1v4, 80223-0 #### [facility] [address], [place] Hold Clot (Blood Bank)on Other useful information NOTNEED [facility] Comment on above: Performed By: #### 1 1111-6 #### [facility] [address] [place] [address] Troponin Ion 06-30-2020 Troponin I.cardiac [Mass/Vol] ng/mL Normal <0.06 [facility] Comment on above: Performed By: #### 1 0839-9, 26926-5, 77225-4z1, 46733-0 #### [facility] [address], [place] XR Chest 2 Viewson 1 XR Chest 2 views STUDY: Chest two vie ws dated 06/30/2020 1:01 AM. COMPARISON: None. HISTORY: Chest Pain. Midsternal chest pain radiating to left jaw and lower back. 10 out of 10 severity. FINDINGS: 2 views with 3 images. Limitation by body habitus. Right-sided PICC is present, tip in SVC just above cavoatrial junction. The cardiac contour is magnified by AP technique and body habitus, borderline to mildly enlarged. Mediastinum magnified, possibly widened versus technique. No large effusion visible, small effusion difficult to exclude. No visible pneumothorax. Central vascular congestion and possible mild edema. Right medial basilar opacity could represent cardiophrenic fat pad or atelectasis/infiltrate. IMPRESSION: 1. Limited study as above. 2. Borderline heart with vascular congestion. I cannot exclude mild edema. 3. Possible medial right basilar atelectasis or infiltrate versus cardiophrenic fat pad. 4. Possible mediastinal widening versus technical factors. Follow-up with PA chest x-ray, or CT if indicated, advised. 5. Right PICC and other findings above. Stat reading provided. [place] thanks you for the opportunity to care for your patient. Workstation ID: [id number] FINAL REPORT Dictated By: Maury Stovall MD 06/30/2020 01:08 Assigned Physician: Maury Stovall MD Reviewed and Electronically Signed By: Maury Stovall MD 06/30/2020 01:14 Transcribed by: VARGAS 06/30/2020 01:08 Technologist: SULMA Normal [facility] Idalmis 06-27-2020 AST [Catalytic activity/Vol] 14 U/L Normal 14-40 [facility] Comment on above: Performed By: #### C A, LDO, CHM7, MGO, BILI, ASTO #### [facility] (DEFAULT) [address] [place] [address] BILIRUBIN, TOTAL AND DIRECTo n 06-27-2020 Bilirubin [Mass/Vol] 0.4 mg/dL Normal <1.5 [facility] Comment on above: Performed By: #### C A, LDO, CHM7, MGO, BILI, ASTO #### [facility] (DEFAULT) [address] [place] [address]278 Bilirubin.indirect [Mass/Vol] 0.1 mg/dL Normal <0.3 [facility] Comment on above: Performed By: #### C A, LDO, CHM7, MGO, BILI, ASTO #### [facility] (DEFAULT) [address] [place] [address] CALCIUMon 06-27-2020 Calcium [Mass/Vol] 8.1 mg/dL Low 8.6-10.5 [facility] Comment on above: Performed By: #### C A, LDO, CHM7, MGO, BILI, ASTO #### [facility] (DEFAULT) [address] [place] [address] CBC AND ELECTRONIC DIFFon Abs Baso Auto Normal [facility] Comment on above: Performed By: #### C A, LDO, CHM7, MGO, BILI, ASTO #### [facility] (DEFAULT) [address] [place] [address]1918 Abs Eos Auto Normal [facility] Comment on above: Performed By: #### C A, LDO, CHM7, MGO, BILI, ASTO #### [facility] (DEFAULT) [address] [place] [address] 49762 Abs Lymph Auto Normal [facility] Comment on above: Performed By: #### C A, LDO, CHM7, MGO, BILI, ASTO #### [facility] (DEFAULT) [address] [place] [address]201 Abs [place] Auto Normal [facility] Comment on above: Performed By: #### C A, LDO, CHM7, MGO, BILI, ASTO #### [facility] (DEFAULT) [address] [place] [address]97 Basophil % Auto Normal [facility] Comment on above: Performed By: #### C A, LDO, CHM7, MGO, BILI, ASTO #### [facility] (DEFAULT) [address] [place] [address] 29244 Eosinophil % Auto Normal [facility] Comment on above: Performed By: #### C A, LDO, CHM7, MGO, BILI, ASTO #### [facility] (DEFAULT) [address] [place] [address] 36381 Hematocrit (Bld) [Volume fraction] 23.2 % Low 34.9-44.3 [facility] Comment on above: Performed By: #### C A, LDO, CHM7, MGO, BILI, ASTO #### [facility] (DEFAULT) [address] [place] [address] 38856 Hemoglobin (Bld) [Mass/Vol] 7.0 g/dL Low 11.4-15.2 [facility] Comment on above: Performed By: #### C A, LDO, CHM7, MGO, BILI, ASTO #### [facility] (DEFAULT) [address] [place] [address] 58960 Immature Grans % Normal [facility] Comment on above: Performed By: #### C A, LDO, CHM7, MGO, BILI, ASTO #### [facility] (DEFAULT) [address] [place] [address] 07434 Immature Grans Absolute Normal [facility] Comment on above: Performed By: #### C A, LDO, CHM7, MGO, BILI, ASTO #### [facility] (DEFAULT) [address] [place] [address] 44303 Lymphocyte % Auto Normal [facility] Comment on above: Performed By: #### C A, LDO, CHM7, MGO, BILI, ASTO #### [facility] (DEFAULT) [address] [place] [address] 63270 MCV (RBC) [Entitic vol] 78.6 fL Low 79.6-97.7 O [facility] Comment on above: Performed By: #### C A, LDO, CHM7, MGO, BILI, ASTO #### [facility] (DEFAULT) [address] [place] [address] 25653 Mean Cell Hgb 23.7 pg Low 25.9-33.9 [facility] Comment on above: Performed By: #### C A, LDO, CHM7, MGO, BILI, ASTO #### [facility] (DEFAULT) [address] [place] [address] 81618 Mean Cell Hgb Conc 30.2 g/dL Low 31.4-35.9 [facility] Comment on above: Performed By: #### C A, LDO, CHM7, MGO, BILI, ASTO #### [facility] (DEFAULT) [address] [place] [address] 29454 Monocyte % Auto Normal [facility] Comment on above: Performed By: #### C A, LDO, CHM7, MGO, BILI, ASTO #### [facility] (DEFAULT) [address] [place] [address] 88951 Platelet mean volume (Bld) [Entitic vol] 10.9 fL Normal 8.5-12.2 [facility] Comment on above: Performed By: #### C A, LDO, CHM7, MGO, BILI, ASTO #### [facility] (DEFAULT) [address] [place] [address] 92129 Platelets (Bld) [#/Vol] 167 10*3/uL Normal 150-393 [facility] Comment on above: Performed By: #### C A, LDO, CHM7, MGO, BILI, ASTO #### [facility] (DEFAULT) [address] [place] [address] 04058 RBC (Bld) [#/Vol] 2.95 10*6/uL Low 3.91-5.04 [facility] Comment on above: Performed By: #### C A, LDO, CHM7, MGO, BILI, ASTO #### [facility] (DEFAULT) [address] [place] [address] 76051 RBC Distribution 16.8 % High 10.8-14.9 [facility] Comment on above: Performed By: #### C A, LDO, CHM7, MGO, BILI, ASTO #### [facility] (DEFAULT) [address] [place] [address] 59550 Segs + Bands Auto Normal [facility] Comment on above: Performed By: #### C A, LDO, CHM7, MGO, BILI, ASTO #### [facility] (DEFAULT) [address] [place] [address] 07209 Segs + Bands,Absolute Auto Normal [facility] Comment on above: Performed By: #### C A, LDO, CHM7, MGO, BILI, ASTO #### [facility] (DEFAULT) [address] [place] [address] 38041 WBC (Bld) [#/Vol] 4.60 10*3/uL Normal 3.99-11.19 [facility] Comment on above: Performed By: #### C A, LDO, CHM7, MGO, BILI, ASTO #### [facility] (DEFAULT) [address] [place] [address] 64100 CHEM 7 (LYTES,BUN,CREA,GLUC) on 06-27-2020 Anion gap [Moles/Vol] 11 mmol/L Normal 7-17 [facility] Comment on above: Performed By: #### C A, LDO, CHM7, MGO, BILI, ASTO #### [facility] (DEFAULT) [address] [place] [address] 63277 Chloride [Moles/Vol] 106 mmol/L Normal 98-108 [facility] Comment on above: Performed By: #### C A, LDO, CHM7, MGO, BILI, ASTO #### [facility] (DEFAULT) [address] [place] [address] 81210 CO2 [Moles/Vol] 27 mmol/L Normal 22-30 [facility] Comment on above: Performed By: #### C A, LDO, CHM7, MGO, BILI, ASTO #### [facility] (DEFAULT) [address] [place] [address] 81591 Creatinine [Mass/Vol] 0.61 mg/dL Normal 0.50-1.20 [facility] Comment on above: Performed By: #### C A, LDO, CHM7, MGO, BILI, ASTO #### [facility] (DEFAULT) [address] [place] [address] 49000 EST GFR, >=60 Normal >=60 [facility] Comment on above: Performed By: #### C A, LDO, CHM7, MGO, BILI, ASTO #### [facility] (DEFAULT) [address] [place] [address] 16339 EST GFR,Non >=60 Normal >=60 [facility] Comment on above: Performed By: #### C A, LDO, CHM7, MGO, BILI, ASTO #### [facility] (DEFAULT) [address] [place] [address] 41319 Glucose [Mass/Vol] 117 mg/dL High 70-99 [facility] Comment on above: Performed By: #### C A, LDO, CHM7, MGO, BILI, ASTO #### [facility] (DEFAULT) [address] [place] [address] 77941 Osmolality [Osmolality] 294 mosm/kg Normal 278-305 [facility] Comment on above: Performed By: #### C A, LDO, CHM7, MGO, BILI, ASTO #### [facility] (DEFAULT) [address] [place] [address] 11745 Potassium [Moles/Vol] 3.9 mmol/L Normal 3.5-5.0 [facility] Comment on above: Performed By: #### C A, LDO, CHM7, MGO, BILI, ASTO #### [facility] (DEFAULT) [address] [place] [address] 74904 Sodium [Moles/Vol] 140 mmol/L Normal 133-143 [facility] Comment on above: Performed By: #### C A, LDO, CHM7, MGO, BILI, ASTO #### [facility] (DEFAULT) [address] [place] [address] 56933 Urea nitrogen [Mass/Vol] 13 mg/dL Normal 7-22 [facility] Comment on above: Performed By: #### C A, LDO, CHM7, MGO, BILI, ASTO #### [facility] (DEFAULT) [address] [place] [address] 98643 Urea nitrogen/Creatinine [Mass ratio] 21 mg/mg Normal [facility] Comment on above: Performed By: #### C A, LDO, CHM7, MGO, BILI, ASTO #### [facility] (DEFAULT) [address] [place] [address] 97227 LACTATE DEHYDROGENASEon - LD Total 183 U/L Normal 100-190 [facility] Comment on above: Performed By: #### C A, LDO, CHM7, MGO, BILI, ASTO #### [facility] (DEFAULT) [address] [place] [address] MAGNESIUMon 06-27-2020 Magnesium [Mass/Vol] 2.0 mg/dL Normal 1.6-2.6 [facility] Comment on above: Performed By: #### C A, LDO, CHM7, MGO, BILI, ASTO #### [facility] (DEFAULT) [address] [place] [address] MANUAL DIFFon 06-27-2020 Abs Baso Manual 0.00 K/uL Normal 0.00-0.15 [facility] Comment on above: Performed By: #### C A, LDO, CHM7, MGO, BILI, ASTO #### [facility] (DEFAULT) [address] [place] [address] Abs Eos Manual 0.37 K\uL Normal 0.00-0.42 [facility] Comment on above: Performed By: #### Kenna A, LDO, CHM7, MGO, BILI, ASTO #### [facility] (DEFAULT) [address] [place] [address] Abs Lymph Manual 0.74 K/uL Low 1.16-3.51 [facility] Comment on above: Performed By: #### C A, LDO, CHM7, MGO, BILI, ASTO #### [facility] (DEFAULT) [address] [place] [address] 87415 Abs Lincoln Manual 0.00 K/uL Low 0.22-0.87 [facility] Comment on above: Performed By: #### C A, LDO, CHM7, MGO, BILI, ASTO #### [facility] (DEFAULT) [address] [place] [address] 88172 Bands Relative 0.0 % Normal [facility] Comment on above: Performed By: #### C A, LDO, CHM7, MGO, BILI, ASTO #### [facility] (DEFAULT) [address] [place] [address] Baso Relative 0.0 % Normal [facility] Comment on above: Performed By: #### C A, LDO, CHM7, MGO, BILI, ASTO #### [facility] (DEFAULT) [address] [place] [address] 50192 BKR SEGS + BANDS, ABSOLUTE 3.49 K/uL Normal Male: 1.57-6.19, Female: 1.64-7..28 [facility] Comment on above: Performed By: #### C A, LDO, CHM7, MGO, BILI, ASTO #### [facility] (DEFAULT) [address] [place] [address] 85083 DIFF STATUS Manual Differential Normal [facility] Comment on above: Performed By: #### C A, LDO, CHM7, MGO, BILI, ASTO #### [facility] (DEFAULT) [address] [place] [address] 90572 Eos Relative 8.0 % Normal [facility] Comment on above: Performed By: #### C A, LDO, CHM7, MGO, BILI, ASTO #### [facility] (DEFAULT) [address] [place] [address] 34102 Lymph Relative 16.1 % Normal [facility] Comment on above: Performed By: #### C A, LDO, CHM7, MGO, BILI, ASTO #### [facility] (DEFAULT) [address] [place] [address] 54720 Lincoln Relative 0.0 % Normal [facility] Comment on above: Performed By: #### C A, LDO, CHM7, MGO, BILI, ASTO #### [facility] (DEFAULT) [address] [place] [address] 74238 Nucleated RBC 1.8 /100 WBC High <=0.0 [facility] Comment on above: Performed By: #### C A, LDO, CHM7, MGO, BILI, ASTO #### [facility] (DEFAULT) [address] [place] [address] 78398 Ovalocytes Present Abnormal (none) [facility] Comment on above: Performed By: #### C A, LDO, CHM7, MGO, BILI, ASTO #### [facility] (DEFAULT) [address] [place] [address] 44479 Platelet Estimate Automated platelet c ount confirmed by manual slide review Normal [facility] Comment on above: Performed By: #### C A, LDO, CHM7, MGO, BILI, ASTO #### [facility] (DEFAULT) [address] [place] [address] 61785 RBC Morphology RBC INDICES CONFIRME D WITH MANUAL SLIDE REVIEW Normal [facility] Comment on above: Performed By: #### C A, LDO, CHM7, MGO, BILI, ASTO #### [facility] (DEFAULT) [address] [place] [address] 97267 Segs Relative 75.9 % Normal [facility] Comment on above: Performed By: #### C A, LDO, CHM7, MGO, BILI, ASTO #### [facility] (DEFAULT) [address] [place] [address] 04775 PHOSPHATE, INORGANICon 06-27 Phosphorous 3.3 mg/dL Normal 2.2-4.6 [facility] Comment on above: Performed By: #### X M #### [facility] (DEFAULT) [address] [place] [address] 03132 TYPE AND SCREENon 06-27-2020 ABO/RH(D) TYPE Positive Normal [facility] Comment on above: Performed By: #### X M #### [facility] (DEFAULT) [address] [place] [address] 92518 Idalmis 06-26-2020 AST [Catalytic activity/Vol] 18 U/L Normal 14-40 [facility] Comment on above: Performed By: #### C A, LDO, CHM7, MGO, BILI, ASTO #### [facility] (DEFAULT) [address] [place] [address] 64534 BILIRUBIN, TOTAL AND DIRECTo n 06-26-2020 Bilirubin [Mass/Vol] 0.5 mg/dL Normal <1.5 [facility] Comment on above: Performed By: #### C A, LDO, CHM7, MGO, BILI, ASTO #### [facility] (DEFAULT) [address] [place] [address] 04649 Bilirubin.indirect [Mass/Vol] 0.1 mg/dL Normal <0.3 [facility] Comment on above: Performed By: #### C A, LDO, CHM7, MGO, BILI, ASTO #### [facility] (DEFAULT) [address] [place] [address] 40699 CALCIUMon 06-26-2020 Calcium [Mass/Vol] 8.1 mg/dL Low 8.6-10.5 [facility] Comment on above: Performed By: #### C A, LDO, CHM7, MGO, BILI, ASTO #### [facility] (DEFAULT) [address] [place] [address] 69619 CBC AND ELECTRONIC DIFFon Abs Baso Auto Normal [facility] Comment on above: Performed By: #### C A, LDO, CHM7, MGO, BILI, ASTO #### [facility] (DEFAULT) [address] [place] [address] 29926 Abs Eos Auto Normal [facility] Comment on above: Performed By: #### C A, LDO, CHM7, MGO, BILI, ASTO #### [facility] (DEFAULT) [address] [place] [address] 34778 Abs Lymph Auto Normal [facility] Comment on above: Performed By: #### C A, LDO, CHM7, MGO, BILI, ASTO #### [facility] (DEFAULT) [address] [place] [address] 57959 Abs Lincoln Auto Normal [facility] Comment on above: Performed By: #### C A, LDO, CHM7, MGO, BILI, ASTO #### [facility] (DEFAULT) [address] [place] [address] 77435 Basophil % Auto Normal [facility] Comment on above: Performed By: #### C A, LDO, CHM7, MGO, BILI, ASTO #### [facility] (DEFAULT) [address] [place] [address] 29039 Eosinophil % Auto Normal [facility] Comment on above: Performed By: #### C A, LDO, CHM7, MGO, BILI, ASTO #### [facility] (DEFAULT) [address] [place] [address] 54945 Hematocrit (Bld) [Volume fraction] 26.6 % Low 34.9-44.3 [facility] Comment on above: Performed By: #### C A, LDO, CHM7, MGO, BILI, ASTO #### [facility] (DEFAULT) [address] [place] [address] 51776 Hemoglobin (Bld) [Mass/Vol] 7.9 g/dL Low 11.4-15.2 [facility] Comment on above: Performed By: #### C A, LDO, CHM7, MGO, BILI, ASTO #### [facility] (DEFAULT) [address] [place] [address] 59494 Immature Grans % Normal [facility] Comment on above: Performed By: #### C A, LDO, CHM7, MGO, BILI, ASTO #### [facility] (DEFAULT) [address] [place] [address] 56941 Immature Grans Absolute Normal O [facility] Comment on above: Performed By: #### C A, LDO, CHM7, MGO, BILI, ASTO #### [facility] (DEFAULT) [address] [place] [address] 81601 Lymphocyte % Auto Normal [facility] Comment on above: Performed By: #### C A, LDO, CHM7, MGO, BILI, ASTO #### [facility] (DEFAULT) [address] [place] [address] 34819 MCV (RBC) [Entitic vol] 78.5 fL Low 79.6-97.7 [facility] Comment on above: Performed By: #### C A, LDO, CHM7, MGO, BILI, ASTO #### [facility] (DEFAULT) [address] [place] [address] 39834 Mean Cell Hgb 23.3 pg Low 25.9-33.9 [facility] Comment on above: Performed By: #### C A, LDO, CHM7, MGO, BILI, ASTO #### [facility] (DEFAULT) [address] [place] [address] 45431 Mean Cell Hgb Conc 29.7 g/dL Low 31.4-35.9 [facility] Comment on above: Performed By: #### C A, LDO, CHM7, MGO, BILI, ASTO #### [facility] (DEFAULT) [address] [place] [address] 15425 Monocyte % Auto Normal [facility] Comment on above: Performed By: #### C A, LDO, CHM7, MGO, BILI, ASTO #### [facility] (DEFAULT) [address] [place] [address] 90249 Platelet mean volume (Bld) [Entitic vol] 11.2 fL Normal 8.5-12.2 [facility] Comment on above: Result Comment: This is an appended report. These results have been appended to a previously preliminary verified report. Performed By: #### C A, LDO, CHM7, MGO, BILI, ASTO #### [facility] (DEFAULT) [address] [place] [address] 25096 Platelets (Bld) [#/Vol] 189 10*3/uL Normal 150-393 [facility] Comment on above: Result Comment: This is an appended report. These results have been appended to a previously preliminary verified report. Performed By: #### C A, LDO, CHM7, MGO, BILI, ASTO #### [facility] (DEFAULT) [address] [place] [address] 96498 RBC (Bld) [#/Vol] 3.39 10*6/uL Low 3.91-5.04 [facility] Comment on above: Performed By: #### C A, LDO, CHM7, MGO, BILI, ASTO #### [facility] (DEFAULT) [address] [place] [address] 87692 RBC Distribution 16.7 % High 10.8-14.9 [facility] Comment on above: Performed By: #### C A, LDO, CHM7, MGO, BILI, ASTO #### [facility] (DEFAULT) [address] [place] [address] 92689 Segs + Bands Auto Normal [facility] Comment on above: Performed By: #### C A, LDO, CHM7, MGO, BILI, ASTO #### [facility] (DEFAULT) [address] [place] [address] 95441 Segs + Bands,Absolute Auto Normal [facility] Comment on above: Performed By: #### C A, LDO, CHM7, MGO, BILI, ASTO #### [facility] (DEFAULT) [address] [place] [address] 84325 WBC (Bld) [#/Vol] 14.84 10*3/uL High 3.99-11.19 [facility] Comment on above: Result Comment: This is an appended report. These results have been appended to a previously preliminary verified report. Performed By: #### C A, LDO, CHM7, MGO, BILI, ASTO #### [facility] (DEFAULT) [address] [place] [address] 61449 CHEM 7 (LYTES,BUN,CREA,GLUC) on 06-26-2020 Anion gap [Moles/Vol] 10 mmol/L Normal 7-17 [facility] Comment on above: Performed By: #### C A, LDO, CHM7, MGO, BILI, ASTO #### [facility] (DEFAULT) [address] [place] [address] 99372 Chloride [Moles/Vol] 106 mmol/L Normal 98-108 [facility] Comment on above: Performed By: #### C A, LDO, CHM7, MGO, BILI, ASTO #### [facility] (DEFAULT) [address] [place] [address] 02116 CO2 [Moles/Vol] 27 mmol/L Normal 22-30 [facility] Comment on above: Performed By: #### C A, LDO, CHM7, MGO, BILI, ASTO #### [facility] (DEFAULT) [address] [place] [address] 45080 Creatinine [Mass/Vol] 0.53 mg/dL Normal 0.50-1.20 [facility] Comment on above: Performed By: #### C A, LDO, CHM7, MGO, BILI, ASTO #### [facility] (DEFAULT) [address] [place] [address] 40335 EST GFR, >=60 Normal >=60 [facility] Comment on above: Performed By: #### C A, LDO, CHM7, MGO, BILI, ASTO #### [facility] (DEFAULT) [address] [place] [address] 25211 EST GFR,Non >=60 Normal >=60 [facility] Comment on above: Performed By: #### C A, LDO, CHM7, MGO, BILI, ASTO #### [facility] (DEFAULT) [address] [place] [address] 08568 Glucose [Mass/Vol] 86 mg/dL Normal 70-99 [facility] Comment on above: Performed By: #### C A, LDO, CHM7, MGO, BILI, ASTO #### [facility] (DEFAULT) [address] [place] [address] 63884 Osmolality [Osmolality] 292 mosm/kg Normal 278-305 [facility] Comment on above: Performed By: #### C A, LDO, CHM7, MGO, BILI, ASTO #### [facility] (DEFAULT) [address] [place] [address] 77764 Potassium [Moles/Vol] 4.1 mmol/L Normal 3.5-5.0 [facility] Comment on above: Performed By: #### C A, LDO, CHM7, MGO, BILI, ASTO #### [facility] (DEFAULT) [address] [place] [address] 58261 Sodium [Moles/Vol] 139 mmol/L Normal 133-143 [facility] Comment on above: Performed By: #### C A, LDO, CHM7, MGO, BILI, ASTO #### [facility] (DEFAULT) [address] [place] [address] 99227 Urea nitrogen [Mass/Vol] 17 mg/dL Normal 7-22 [facility] Comment on above: Performed By: #### C A, LDO, CHM7, MGO, BILI, ASTO #### [facility] (DEFAULT) [address] [place] [address] 66794 Urea nitrogen/Creatinine [Mass ratio] 32 mg/mg Normal [facility] Comment on above: Performed By: #### C A, LDO, CHM7, MGO, BILI, ASTO #### [facility] (DEFAULT) [address] [place] [address] 42706 LACTATE DEHYDROGENASEon 06-09 LD Total 191 U/L High 100-190 [facility] Comment on above: Performed By: #### C A, LDO, CHM7, MGO, BILI, ASTO #### [facility] (DEFAULT) [address] [place] [address] 45856 MAGNESIUMon 06-26-2020 Magnesium [Mass/Vol] 1.8 mg/dL Normal 1.6-2.6 [facility] Comment on above: Performed By: #### C A, LDO, CHM7, MGO, BILI, ASTO #### [facility] (DEFAULT) [address] [place] [address] 81608 MANUAL DIFFon 06-26-2020 Abs Baso Manual 0.00 K/uL Normal 0.00-0.15 [facility] Comment on above: Performed By: #### C A, LDO, CHM7, MGO, BILI, ASTO #### [facility] (DEFAULT) [address] [place] [address] 52195 Abs Eos Manual 0.27 K\uL Normal 0.00-0.42 [facility] Comment on above: Performed By: #### C A, LDO, CHM7, MGO, BILI, ASTO #### [facility] (DEFAULT) [address] [place] [address] 35916 Abs Lymph Manual 1.42 K/uL Normal 1.16-3.51 [facility] Comment on above: Performed By: #### C A, LDO, CHM7, MGO, BILI, ASTO #### [facility] (DEFAULT) [address] [place] [address] 15080 Abs Lincoln Manual 0.00 K/uL Low 0.22-0.87 [facility] Comment on above: Performed By: #### C A, LDO, CHM7, MGO, BILI, ASTO #### [facility] (DEFAULT) [address] [place] [address] 26020 Bands Relative 0.0 % Normal [facility] Comment on above: Performed By: #### C A, LDO, CHM7, MGO, BILI, ASTO #### [facility] (DEFAULT) [address] [place] [address] 37719 Baso Relative 0.0 % Normal [facility] Comment on above: Performed By: #### C A, LDO, CHM7, MGO, BILI, ASTO #### [facility] (DEFAULT) [address] [place] [address] 90695 BKR SEGS + BANDS, ABSOLUTE 13.15 K/uL High Male: 1.57-6.19, Female: 1.64-7..28 [facility] Comment on above: Performed By: #### C A, LDO, CHM7, MGO, BILI, ASTO #### [facility] (DEFAULT) [address] [place] [address] 21299 DIFF STATUS Manual Differential Normal [facility] Comment on above: Performed By: #### C A, LDO, CHM7, MGO, BILI, ASTO #### [facility] (DEFAULT) [address] [place] [address] 40399 Eos Relative 1.8 % Normal [facility] Comment on above: Performed By: #### C A, LDO, CHM7, MGO, BILI, ASTO #### [facility] (DEFAULT) [address] [place] [address] 13743 Lymph Relative 9.6 % Normal [facility] Comment on above: Performed By: #### C A, LDO, CHM7, MGO, BILI, ASTO #### [facility] (DEFAULT) [address] [place] [address] 03847 Lincoln Relative 0.0 % Normal [facility] Comment on above: Performed By: #### C A, LDO, CHM7, MGO, BILI, ASTO #### [facility] (DEFAULT) [address] [place] [address] 61814 Nucleated RBC 2.6 /100 WBC High <=0.0 [facility] Comment on above: Performed By: #### C A, LDO, CHM7, MGO, BILI, ASTO #### [facility] (DEFAULT) [address] [place] [address] 90083 Ovalocytes Present Abnormal (none) [facility] Comment on above: Performed By: #### C A, LDO, CHM7, MGO, BILI, ASTO #### [facility] (DEFAULT) [address] [place] [address] 34427 Platelet Estimate Automated platelet c ount confirmed by manual slide review Normal [facility] Comment on above: Performed By: #### C A, LDO, CHM7, MGO, BILI, ASTO #### [facility] (DEFAULT) [address] [place] [address] 75111 Polychromasia 1+ Abnormal (none) [facility] Comment on above: Performed By: #### C A, LDO, CHM7, MGO, BILI, ASTO #### [facility] (DEFAULT) [address] [place] [address] 41727 RBC Morphology RBC INDICES CONFIRME D WITH MANUAL SLIDE REVIEW Normal [facility] [facility] Comment on above: Performed By: #### C A, LDO, CHM7, MGO, BILI, ASTO #### [facility] (DEFAULT) [address] [place] [address] 22876 Segs Relative 88.6 % Normal [facility] Comment on above: Performed By: #### C A, LDO, CHM7, MGO, BILI, ASTO #### [facility] (DEFAULT) [address] [place] [address] 06444 PHOSPHATE, INORGANICon 06-26 Phosphorous 3.8 mg/dL Normal 2.2-4.6 [facility] Comment on above: Performed By: #### C A, LDO, CHM7, MGO, BILI, ASTO #### [facility] (DEFAULT) [address] [place] [address] 09202 Idalmis 06-25-2020 AST [Catalytic activity/Vol] 14 U/L Normal 14-40 [facility] Comment on above: Performed By: #### T YPEC #### [facility] (DEFAULT) [address] [place] [address] 97490 BILIRUBIN, TOTAL AND DIRECTo n 06-25-2020 Bilirubin [Mass/Vol] 0.6 mg/dL Normal <1.5 [facility] Comment on above: Performed By: #### T YPEC #### [facility] (DEFAULT) [address] [place] [address] 94382 Bilirubin.indirect [Mass/Vol] 0.1 mg/dL Normal <0.3 [facility] Comment on above: Performed By: #### T YPEC #### [facility] (DEFAULT) [address] [place] [address] 00015 CALCIUMon 06-25-2020 Calcium [Mass/Vol] 8.2 mg/dL Low 8.6-10.5 [facility] Comment on above: Performed By: #### T YPEC #### [facility] (DEFAULT) [address] [place] [address] 25942 CBC AND ELECTRONIC DIFFon Abs Baso Auto Normal [facility] Comment on above: Performed By: #### C A, LDO, CHM7, MGO, BILI, ASTO #### [facility] (DEFAULT) [address] [place] [address] 35128 Abs Eos Auto Normal [facility] Comment on above: Performed By: #### C A, LDO, CHM7, MGO, BILI, ASTO #### [facility] (DEFAULT) [address] [place] [address] 58586 Abs Lymph Auto Normal [facility] Comment on above: Performed By: #### C A, LDO, CHM7, MGO, BILI, ASTO #### [facility] (DEFAULT) [address] [place] [address] 33031 Abs Lincoln Auto Normal [facility] Comment on above: Performed By: #### C A, LDO, CHM7, MGO, BILI, ASTO #### [facility] (DEFAULT) [address] [place] [address] 62193 Basophil % Auto Normal [facility] Comment on above: Performed By: #### C A, LDO, CHM7, MGO, BILI, ASTO #### [facility] (DEFAULT) [address] [place] [address] 21998 Eosinophil % Auto Normal [facility] Comment on above: Performed By: #### C A, LDO, CHM7, MGO, BILI, ASTO #### [facility] (DEFAULT) [address] [place] [address] 10781 Hematocrit (Bld) [Volume fraction] 24.9 % Low 34.9-44.3 [facility] Comment on above: Performed By: #### C A, LDO, CHM7, MGO, BILI, ASTO #### [facility] (DEFAULT) [address] [place] [address] 50924 Hemoglobin (Bld) [Mass/Vol] 7.8 g/dL Low 11.4-15.2 [facility] Comment on above: Performed By: #### C A, LDO, CHM7, MGO, BILI, ASTO #### [facility] (DEFAULT) [address] [place] [address] 53374 Immature Grans % Normal [facility] Comment on above: Performed By: #### C A, LDO, CHM7, MGO, BILI, ASTO #### [facility] (DEFAULT) [address] [place] [address] 52110 Immature Grans Absolute Normal [facility] Comment on above: Performed By: #### C A, LDO, CHM7, MGO, BILI, ASTO #### [facility] (DEFAULT) [address] [place] [address] 17689 Lymphocyte % Auto Normal [facility] Comment on above: Performed By: #### C A, LDO, CHM7, MGO, BILI, ASTO #### [facility] (DEFAULT) [address] [place] [address] 83371 MCV (RBC) [Entitic vol] 77.6 fL Low 79.6-97.7 [facility] Comment on above: Performed By: #### C A, LDO, CHM7, MGO, BILI, ASTO #### [facility] (DEFAULT) [address] [place] [address] 75266 Mean Cell Hgb 24.3 pg Low 25.9-33.9 [facility] Comment on above: Performed By: #### C A, LDO, CHM7, MGO, BILI, ASTO #### [facility] (DEFAULT) [address] [place] [address] 67532 Mean Cell Hgb Conc 31.3 g/dL Low 31.4-35.9 [facility] Comment on above: Performed By: #### C A, LDO, CHM7, MGO, BILI, ASTO #### [facility] (DEFAULT) [address] [place] [address] 53779 Monocyte % Auto Normal [facility] Comment on above: Performed By: #### C A, LDO, CHM7, MGO, BILI, ASTO #### [facility] (DEFAULT) [address] [place] [address] 15869 Platelet mean volume (Bld) [Entitic vol] 11.7 fL Normal 8.5-12.2 [facility] Comment on above: Performed By: #### C A, LDO, CHM7, MGO, BILI, ASTO #### [facility] (DEFAULT) [address] [place] [address] 74058 Platelets (Bld) [#/Vol] 213 10*3/uL Normal 150-393 [facility] Comment on above: Performed By: #### C A, LDO, CHM7, MGO, BILI, ASTO #### [facility] (DEFAULT) [address] [place] [address] 15782 RBC (Bld) [#/Vol] 3.21 10*6/uL Low 3.91-5.04 [facility] Comment on above: Performed By: #### C A, LDO, CHM7, MGO, BILI, ASTO #### [facility] (DEFAULT) [address] [place] [address] 13399 RBC Distribution 16.4 % High 10.8-14.9 [facility] Comment on above: Performed By: #### C A, LDO, CHM7, MGO, BILI, ASTO #### [facility] (DEFAULT) [address] [place] [address] 34680 Segs + Bands Auto Normal [facility] Comment on above: Performed By: #### C A, LDO, CHM7, MGO, BILI, ASTO #### [facility] (DEFAULT) [address] [place] [address] 99271 Segs + Bands,Absolute Auto Normal [facility] Comment on above: Performed By: #### C A, LDO, CHM7, MGO, BILI, ASTO #### [facility] (DEFAULT) [address] [place] [address] 36377 WBC (Bld) [#/Vol] 36.41 10*3/uL Critically high 3.99-11.19 [facility] Comment on above: Result Comment: This result has been called to KAYLYN STACK RN by Aliyah Kathleen on 06 25 2020 at 0449, and has been read back. Performed By: #### C A, LDO, CHM7, MGO, BILI, ASTO #### [facility] (DEFAULT) [address] [place] [address] 98799 CHEM 7 (LYTES,BUN,CREA,GLUC) on 06-25-2020 Anion gap [Moles/Vol] 8 mmol/L Normal 7-17 [facility] Comment on above: Performed By: #### T YPEC #### [facility] (DEFAULT) [address] [address] Chloride [Moles/Vol] 105 mmol/L Normal 98-108 [facility] Comment on above: Performed By: #### T YPEC #### [facility] (DEFAULT) [address] 8[address]21 CO2 [Moles/Vol] 29 mmol/L Normal 22-30 [facility] Comment on above: Performed By: #### T YPEC #### [facility] (DEFAULT) [address] [address] Creatinine [Mass/Vol] 0.54 mg/dL Normal 0.50-1.20 [facility] Comment on above: Performed By: #### T YPEC #### [facility] (DEFAULT) [address] [address] EST GFR, >=60 Normal >=60 [facility] Comment on above: Performed By: #### T YPEC #### [facility] (DEFAULT) [address] 914[address] EST GFR,Non >=60 Normal >=60 [facility] Comment on above: Performed By: #### T YPEC #### [facility] (DEFAULT) [address] 19294 Glucose [Mass/Vol] 94 mg/dL Normal 70-99 [facility] Comment on above: Performed By: #### T YPEC #### [facility] (DEFAULT) [address] [address] Osmolality [Osmolality] 290 mosm/kg Normal 278-305 [facility] Comment on above: Performed By: #### T YPEC #### [facility] (DEFAULT) [address] 14953 Potassium [Moles/Vol] 3.9 mmol/L Normal 3.5-5.0 [facility] Comment on above: Performed By: #### T YPEC #### [facility] (DEFAULT) [address] [address]263 Sodium [Moles/Vol] 138 mmol/L Normal 133-143 [facility] Comment on above: Performed By: #### T YPEC #### [facility] (DEFAULT) [address] [address]13 Urea nitrogen [Mass/Vol] 18 mg/dL Normal 7-22 [facility] Comment on above: Performed By: #### T YPEC #### [facility] (DEFAULT) [address] [address]472 Urea nitrogen/Creatinine [Mass ratio] 33 mg/mg Normal [facility] Comment on above: Performed By: #### T YPEC #### [facility] (DEFAULT) [address] [address] LACTATE DEHYDROGENASEon 06-09 LD Total 221 U/L High 100-190 [facility] Comment on above: Performed By: #### T YPEC #### [facility] (DEFAULT) [address] [address] MAGNESIUMon 06-25-2020 Magnesium [Mass/Vol] 2.1 mg/dL Normal 1.6-2.6 [facility] Comment on above: Performed By: #### T YPEC #### [facility] (DEFAULT) [address] [address] MANUAL DIFFon 06-25-2020 Abs Baso Manual 0.00 K/uL Normal 0.00-0.15 [facility] Comment on above: Performed By: #### C A, LDO, CHM7, MGO, BILI, ASTO #### [facility] (DEFAULT) [address] 14245 Abs Eos Manual 0.00 K\uL Normal 0.00-0.42 [facility] Comment on above: Performed By: #### C A, LDO, CHM7, MGO, BILI, ASTO #### [facility] (DEFAULT) [address] [place] [address] 41421 Abs Lymph Manual 1.27 K/uL Normal 1.16-3.51 [facility] Comment on above: Performed By: #### C A, LDO, CHM7, MGO, BILI, ASTO #### [facility] (DEFAULT) [address] [place] [address] 49387 Abs Lincoln Manual 0.33 K/uL Normal 0.22-0.87 [facility] Comment on above: Performed By: #### C A, LDO, CHM7, MGO, BILI, ASTO #### [facility] (DEFAULT) [address] [place] [address] 89782 Bands Relative 0.0 % Normal [facility] Comment on above: Performed By: #### C A, LDO, CHM7, MGO, BILI, ASTO #### [facility] (DEFAULT) [address] [place] [address] 36843 Baso Relative 0.0 % Normal [facility] Comment on above: Performed By: #### C A, LDO, CHM7, MGO, BILI, ASTO #### [facility] (DEFAULT) [address] [place] [address] 67642 BKR SEGS + BANDS, ABSOLUTE 34.81 K/uL High Male: 1.57-6.19, Female: 1.64-7..28 [facility] Comment on above: Performed By: #### C A, LDO, CHM7, MGO, BILI, ASTO #### [facility] (DEFAULT) [address] [place] [address] 78063 DIFF STATUS Manual Differential Normal [facility] Comment on above: Performed By: #### C A, LDO, CHM7, MGO, BILI, ASTO #### [facility] (DEFAULT) [address] [place] [address] 58898 Eos Relative 0.0 % Normal [facility] Comment on above: Performed By: #### C A, LDO, CHM7, MGO, BILI, ASTO #### [facility] (DEFAULT) [address] [place] [address] 92344 Lymph Relative 3.5 % Normal [facility] Comment on above: Performed By: #### C A, LDO, CHM7, MGO, BILI, ASTO #### [facility] (DEFAULT) [address] [place] [address] 78125 Lincoln Relative 0.9 % Normal [facility] Comment on above: Performed By: #### C A, LDO, CHM7, MGO, BILI, ASTO #### [facility] (DEFAULT) [address] [place] [address] 49031 Ovalocytes Present Abnormal (none) [facility] Comment on above: Performed By: #### C A, LDO, CHM7, MGO, BILI, ASTO #### [facility] (DEFAULT) [address] [place] [address] 24530 Platelet Estimate Automated platelet c ount confirmed by manual slide review Normal [facility] Comment on above: Performed By: #### C A, LDO, CHM7, MGO, BILI, ASTO #### [facility] (DEFAULT) [address] [place] [address] 20492 Polychromasia 1+ Abnormal (none) [facility] Comment on above: Performed By: #### C A, LDO, CHM7, MGO, BILI, ASTO #### [facility] (DEFAULT) [address] [place] [address] 86523 RBC Morphology RBC INDICES CONFIRME D WITH MANUAL SLIDE REVIEW Normal [facility] Comment on above: Performed By: #### C A, LDO, CHM7, MGO, BILI, ASTO #### [facility] (DEFAULT) [address] [place] [address] 62411 Segs Relative 95.6 % Normal [facility] Comment on above: Performed By: #### C A, LDO, CHM7, MGO, BILI, ASTO #### [facility] (DEFAULT) [address] [place] [address] 64046 Teardrop Cells Present Abnormal (none) [facility] Comment on above: Performed By: #### C A, LDO, CHM7, MGO, BILI, ASTO #### [facility] (DEFAULT) [address] [place] [address] 94189 NOVEL CORONAVIRUS PCRon 06-09 SARS-CoV-2 (COVID-19) RNA KARY+probe Ql (Unsp spec) Not detected Normal NOT DETECTED [facility] Comment on above: Order Comment: Viral transport media or BAL specimen - Collection must be done while wearing N-95 mask, eye protection, gown and gloves. Please label ALL specimens as 2019-nCoV rule out and deliver by hand.This test was performed using real time PCR and has been approved for the qualitative detection of SARS-CoV-2 nucleic acid. The test has been authorized by the FDA under an emergency use authorization for use by authorized laboratories. Result Comment: Nega tive results do not preclude SARS-CoV-2 infection and should not be used as the sole basis for treatment or other patient management decisions. Optimum specimen types and timing for peak viral levels during infections caused by SARS-CoV-2 has not been determined. The possibility of a false negative result should especially be considered if the patient's recent exposures or clinical presentation suggest that SARS-CoV-2 infection is probable, and diagnostic tests for other causes of illness (e.g., other respiratory illness) are negative. Collection of a new specimen and re-testing may be necessary if the patient is critically ill or clinically deteriorating. Performed By: #### C A, LDO, CHM7, MGO, BILI, ASTO #### [facility] (DEFAULT) [address] [place] [address] 42373 PHOSPHATE, INORGANICon 06-25 Phosphorous 3.0 mg/dL Normal 2.2-4.6 [facility] Comment on above: Performed By: #### I PB ####[facility] (DEFAULT)[address] [place] [address] 38229 Idalmis 06-24-2020 AST [Catalytic activity/Vol] 13 U/L Low 14-40 [facility] Comment on above: Performed By: #### C A, LDO, CHM7, MGO, BILI, ASTO #### [facility] (DEFAULT) [address] [place] [address] 18171 BILIRUBIN, TOTAL AND DIRECTo n 06-24-2020 Bilirubin [Mass/Vol] 0.5 mg/dL Normal <1.5 [facility] Comment on above: Performed By: #### C A, LDO, CHM7, MGO, BILI, ASTO #### [facility] (DEFAULT) [address] [place] [address] 37011 Bilirubin.indirect [Mass/Vol] 0.1 mg/dL Normal <0.3 [facility] Comment on above: Performed By: #### C A, LDO, CHM7, MGO, BILI, ASTO #### [facility] (DEFAULT) [address] [place] [address] 04516 CALCIUMon 06-24-2020 Calcium [Mass/Vol] 8.5 mg/dL Low 8.6-10.5 [facility] Comment on above: Performed By: #### C A, LDO, CHM7, MGO, BILI, ASTO #### [facility] (DEFAULT) [address] [place] [address] 04139 CBC AND ELECTRONIC DIFFon Abs Baso Auto Normal [facility] Comment on above: Performed By: #### C A, LDO, CHM7, MGO, BILI, ASTO #### [facility] (DEFAULT) [address] [place] [address] 19933 Abs Eos Auto Normal [facility] Comment on above: Performed By: #### C A, LDO, CHM7, MGO, BILI, ASTO #### [facility] (DEFAULT) [address] [place] [address] 03091 Abs Lymph Auto Normal [facility] Comment on above: Performed By: #### C A, LDO, CHM7, MGO, BILI, ASTO #### [facility] (DEFAULT) [address] [place] [address] 53678 Abs Lincoln Auto Normal [facility] Comment on above: Performed By: #### C A, LDO, CHM7, MGO, BILI, ASTO #### [facility] (DEFAULT) [address] [place] [address] 64609 Basophil % Auto Normal [facility] Comment on above: Performed By: #### C A, LDO, CHM7, MGO, BILI, ASTO #### [facility] (DEFAULT) [address] [place] [address] 52153 Eosinophil % Auto Normal [facility] Comment on above: Performed By: #### C A, LDO, CHM7, MGO, BILI, ASTO #### [facility] (DEFAULT) [address] [place] [address] 60594 Hematocrit (Bld) [Volume fraction] 26.5 % Low 34.9-44.3 [facility] Comment on above: Performed By: #### C A, LDO, CHM7, MGO, BILI, ASTO #### [facility] (DEFAULT) [address] [place] [address] 32315 Hemoglobin (Bld) [Mass/Vol] 8.2 g/dL Low 11.4-15.2 [facility] Comment on above: Performed By: #### C A, LDO, CHM7, MGO, BILI, ASTO #### [facility] (DEFAULT) [address] [place] [address] 78799 Immature Grans % Normal [facility] Comment on above: Performed By: #### C A, LDO, CHM7, MGO, BILI, ASTO #### [facility] (DEFAULT) [address] [place] [address] 31766 Immature Grans Absolute Normal [facility] Comment on above: Performed By: #### C A, LDO, CHM7, MGO, BILI, ASTO #### [facility] (DEFAULT) [address] [place] [address] 62437 Lymphocyte % Auto Normal [facility] Comment on above: Performed By: #### C A, LDO, CHM7, MGO, BILI, ASTO #### [facility] (DEFAULT) [address] [place] [address] 23067 MCV (RBC) [Entitic vol] 78.2 fL Low 79.6-97.7 [facility] Comment on above: Performed By: #### C A, LDO, CHM7, MGO, BILI, ASTO #### [facility] (DEFAULT) [address] [place] [address] 22177 Mean Cell Hgb 24.2 pg Low 25.9-33.9 [facility] Comment on above: Performed By: #### C A, LDO, CHM7, MGO, BILI, ASTO #### [facility] (DEFAULT) [address] [place] [address] 58607 Mean Cell Hgb Conc 30.9 g/dL Low 31.4-35.9 [facility] Comment on above: Performed By: #### C A, LDO, CHM7, MGO, BILI, ASTO #### [facility] (DEFAULT) [address] [place] [address] 93093 Monocyte % Auto Normal [facility] Comment on above: Performed By: #### C A, LDO, CHM7, MGO, BILI, ASTO #### [facility] (DEFAULT) [address] [place] [address] 08762 Platelet mean volume (Bld) [Entitic vol] 11.7 fL Normal 8.5-12.2 [facility] Comment on above: Performed By: #### C A, LDO, CHM7, MGO, BILI, ASTO #### [facility] (DEFAULT) [address] [place] [address] 67435 Platelets (Bld) [#/Vol] 215 10*3/uL Normal 150-393 [facility] Comment on above: Performed By: #### C A, LDO, CHM7, MGO, BILI, ASTO #### [facility] (DEFAULT) [address] [place] [address] 67856 RBC (Bld) [#/Vol] 3.39 10*6/uL Low 3.91-5.04 [facility] Comment on above: Performed By: #### C A, LDO, CHM7, MGO, BILI, ASTO #### [facility] (DEFAULT) [address] [place] [address] 43035 RBC Distribution 16.6 % High 10.8-14.9 [facility] Comment on above: Performed By: #### C A, LDO, CHM7, MGO, BILI, ASTO #### [facility] (DEFAULT) [address] [place] [address] 03388 Segs + Bands Auto Normal [facility] Comment on above: Performed By: #### C A, LDO, CHM7, MGO, BILI, ASTO #### [facility] (DEFAULT) [address] [place] [address] 49027 Segs + Bands,Absolute Auto Normal [facility] Comment on above: Performed By: #### C A, LDO, CHM7, MGO, BILI, ASTO #### [facility] (DEFAULT) [address] [place] [address] 09905 WBC (Bld) [#/Vol] 38.80 10*3/uL Critically high 3.99-11.19 [facility] Comment on above: Result Comment: This result has been called to KAYLYN STACK RN by Mando Padilla on 06 24 2020 at 0151, and has been read back. Performed By: #### C A, LDO, CHM7, MGO, BILI, ASTO #### [facility] (DEFAULT) [address] [place] [address] 48646 CHEM 7 (LYTES,BUN,CREA,GLUC) on 06-24-2020 Anion gap [Moles/Vol] 10 mmol/L Normal 7-17 [facility] Comment on above: Performed By: #### C A, LDO, CHM7, MGO, BILI, ASTO #### [facility] (DEFAULT) [address] [place] [address] 27288 Chloride [Moles/Vol] 105 mmol/L Normal 98-108 [facility] Comment on above: Performed By: #### C A, LDO, CHM7, MGO, BILI, ASTO #### [facility] (DEFAULT) [address] [place] [address] 85780 CO2 [Moles/Vol] 26 mmol/L Normal 22-30 [facility] Comment on above: Performed By: #### C A, LDO, CHM7, MGO, BILI, ASTO #### [facility] (DEFAULT) [address] [place] [address] 18139 Creatinine [Mass/Vol] 0.55 mg/dL Normal 0.50-1.20 [facility] Comment on above: Performed By: #### C A, LDO, CHM7, MGO, BILI, ASTO #### [facility] (DEFAULT) [address] [place] [address] 56097 EST GFR, >=60 Normal >=60 [facility] Comment on above: Performed By: #### C A, LDO, CHM7, MGO, BILI, ASTO #### [facility] (DEFAULT) [address] [place] [address] 69756 EST GFR,Non >=60 Normal >=60 [facility] Comment on above: Performed By: #### C A, LDO, CHM7, MGO, BILI, ASTO #### [facility] (DEFAULT) [address] [place] [address] 25306 Glucose [Mass/Vol] 128 mg/dL High 70-99 [facility] Comment on above: Performed By: #### C A, LDO, CHM7, MGO, BILI, ASTO #### [facility] (DEFAULT) [address] [place] [address] 07921 Osmolality [Osmolality] 291 mosm/kg Normal 278-305 [facility] Comment on above: Performed By: #### C A, LDO, CHM7, MGO, BILI, ASTO #### [facility] (DEFAULT) [address] [place] [address] 50092 Potassium [Moles/Vol] 4.3 mmol/L Normal 3.5-5.0 [facility] Comment on above: Performed By: #### C A, LDO, CHM7, MGO, BILI, ASTO #### [facility] (DEFAULT) [address] [place] [address] 06679 Sodium [Moles/Vol] 137 mmol/L Normal 133-143 [facility] Comment on above: Performed By: #### C A, LDO, CHM7, MGO, BILI, ASTO #### [facility] (DEFAULT) [address] [place] [address] 29555 Urea nitrogen [Mass/Vol] 16 mg/dL Normal 7-22 [facility] Comment on above: Performed By: #### C A, LDO, CHM7, MGO, BILI, ASTO #### [facility] (DEFAULT) [address] [place] [address] 76437 Urea nitrogen/Creatinine [Mass ratio] 29 mg/mg Normal [facility] Comment on above: Performed By: #### C A, LDO, CHM7, MGO, BILI, ASTO #### [facility] (DEFAULT) [address] [place] [address] 79747 LACTATE DEHYDROGENASEon 06-09 LD Total 204 U/L High 100-190 [facility] Comment on above: Performed By: #### C A, LDO, CHM7, MGO, BILI, ASTO #### [facility] (DEFAULT) [address] [place] [address] 94150 MAGNESIUMon 06-24-2020 Magnesium [Mass/Vol] 2.2 mg/dL Normal 1.6-2.6 [facility] Comment on above: Performed By: #### Kenna A, LDO, CHM7, MGO, BILI, ASTO #### [facility] (DEFAULT) [address] [place] [address] 52819 MANUAL DIFFon 06-24-2020 Abs Baso Manual 0.00 K/uL Normal 0.00-0.15 [facility] Comment on above: Performed By: #### C A, LDO, CHM7, MGO, BILI, ASTO #### [facility] (DEFAULT) [address] [place] [address] 01133 Abs Eos Manual 0.00 K\uL Normal 0.00-0.42 [facility] Comment on above: Performed By: #### C A, LDO, CHM7, MGO, BILI, ASTO #### [facility] (DEFAULT) [address] [place] [address] 36232 Abs Lymph Manual 0.66 K/uL Low 1.16-3.51 [facility] Comment on above: Performed By: #### C A, LDO, CHM7, MGO, BILI, ASTO #### [facility] (DEFAULT) [address] [place] [address] 99655 Abs Lincoln Manual 0.35 K/uL Normal 0.22-0.87 [facility] Comment on above: Performed By: #### C A, LDO, CHM7, MGO, BILI, ASTO #### [facility] (DEFAULT) [address] [place] [address] 64484 Bands Relative 0.0 % Normal [facility] Comment on above: Performed By: #### C A, LDO, CHM7, MGO, BILI, ASTO #### [facility] (DEFAULT) [address] [place] [address] 74245 Baso Relative 0.0 % Normal [facility] Comment on above: Performed By: #### C A, LDO, CHM7, MGO, BILI, ASTO #### [facility] (DEFAULT) [address] [place] [address] 42905 BKR SEGS + BANDS, ABSOLUTE 37.79 K/uL High Male: 1.57-6.19, Female: 1.64-7..28 [facility] Comment on above: Performed By: #### C A, LDO, CHM7, MGO, BILI, ASTO #### [facility] (DEFAULT) [address] [place] [address] 78041 DIFF STATUS Manual Differential Normal [facility] Comment on above: Performed By: #### C A, LDO, CHM7, MGO, BILI, ASTO #### [facility] (DEFAULT) [address] [place] [address] 94989 Eos Relative 0.0 % Normal [facility] Comment on above: Performed By: #### C A, LDO, CHM7, MGO, BILI, ASTO #### [facility] (DEFAULT) [address] [place] [address] 96791 Lymph Relative 1.7 % Normal [facility] Comment on above: Performed By: #### C A, LDO, CHM7, MGO, BILI, ASTO #### [facility] (DEFAULT) [address] [place] [address] 58779 Lincoln Relative 0.9 % Normal [facility] Comment on above: Performed By: #### C A, LDO, CHM7, MGO, BILI, ASTO #### [facility] (DEFAULT) [address] [place] [address] 80832 Ovalocytes Present Abnormal (none) [facility] Comment on above: Performed By: #### C A, LDO, CHM7, MGO, BILI, ASTO #### [facility] (DEFAULT) [address] [place] [address] 99633 Platelet Estimate Automated platelet c ount confirmed by manual slide review Normal [facility] Comment on above: Performed By: #### C A, LDO, CHM7, MGO, BILI, ASTO #### [facility] (DEFAULT) [address] [place] [address] 53748 RBC Morphology RBC INDICES CONFIRME D WITH MANUAL SLIDE REVIEW Normal [facility] Comment on above: Performed By: #### C A, LDO, CHM7, MGO, BILI, ASTO #### [facility] (DEFAULT) [address] [place] [address] 60441 Segs Relative 97.4 % Normal [facility] Comment on above: Performed By: #### C A, LDO, CHM7, MGO, BILI, ASTO #### [facility] (DEFAULT) [address] [place] [address] 10220 PHOSPHATE, INORGANICon 06-24 Phosphorous 2.7 mg/dL Normal 2.2-4.6 [facility] Comment on above: Performed By: #### X M #### [facility] (DEFAULT) [address] [place] [address] 43033 TYPE AND SCREENon 06-24-2020 ABO/RH(D) TYPE Positive Normal [facility] Comment on above: Performed By: #### X M #### [facility] (DEFAULT) [address] [place] [address] 58690 Idalmis 06-23-2020 AST [Catalytic activity/Vol] 11 U/L Low 14-40 [facility] Comment on above: Performed By: #### A STO, LDO, MGO, CHM7, BILI, CA ####[facility] (DEFAULT)[address] [place] [address] 20667 BILIRUBIN, TOTAL AND DIRECTo n 06-23-2020 Bilirubin [Mass/Vol] 0.4 mg/dL Normal <1.5 [facility] Comment on above: Performed By: #### A STO, LDO, MGO, CHM7, BILI, CA ####[facility] (DEFAULT)[address] [place] [address] 99874 Bilirubin.indirect [Mass/Vol] 0.1 mg/dL Normal <0.3 [facility] Comment on above: Performed By: #### A STO, LDO, MGO, CHM7, BILI, CA ####[facility] (DEFAULT)[address] [place] [address] 17480 CALCIUMon 06-23-2020 Calcium [Mass/Vol] 8.0 mg/dL Low 8.6-10.5 [facility] Comment on above: Performed By: #### A STO, LDO, MGO, CHM7, BILI, CA ####[facility] (DEFAULT)[address] [place] [address] 70304 CBC AND ELECTRONIC DIFFon Abs Baso Auto Normal [facility] Comment on above: Performed By: #### C A, LDO, CHM7, MGO, BILI, ASTO #### [facility] (DEFAULT) [address] [place] [address] 36751 Abs Eos Auto Normal [facility] Comment on above: Performed By: #### C A, LDO, CHM7, MGO, BILI, ASTO #### [facility] (DEFAULT) [address] [place] [address] 53782 Abs Lymph Auto Normal [facility] Comment on above: Performed By: #### C A, LDO, CHM7, MGO, BILI, ASTO #### [facility] (DEFAULT) [address] [place] [address] 96901 Abs Lincoln Auto Normal [facility] Comment on above: Performed By: #### C A, LDO, CHM7, MGO, BILI, ASTO #### [facility] (DEFAULT) [address] [place] [address] 97717 Basophil % Auto Normal [facility] Comment on above: Performed By: #### C A, LDO, CHM7, MGO, BILI, ASTO #### [facility] (DEFAULT) [address] [place] [address] 33448 Eosinophil % Auto Normal [facility] Comment on above: Performed By: #### C A, LDO, CHM7, MGO, BILI, ASTO #### [facility] (DEFAULT) [address] [place] [address] 30302 Hematocrit (Bld) [Volume fraction] 26.7 % Low 34.9-44.3 [facility] Comment on above: Performed By: #### C A, LDO, CHM7, MGO, BILI, ASTO #### [facility] (DEFAULT) [address] [place] [address] 00900 Hemoglobin (Bld) [Mass/Vol] 8.0 g/dL Low 11.4-15.2 [facility] Comment on above: Performed By: #### C A, LDO, CHM7, MGO, BILI, ASTO #### [facility] (DEFAULT) [address] [place] [address] 69670 Immature Grans % Normal [facility] Comment on above: Performed By: #### C A, LDO, CHM7, MGO, BILI, ASTO #### [facility] (DEFAULT) [address] [place] [address] 40207 Immature Grans Absolute Normal O [facility] Comment on above: Performed By: #### C A, LDO, CHM7, MGO, BILI, ASTO #### [facility] (DEFAULT) [address] [place] [address] 31999 Lymphocyte % Auto Normal [facility] Comment on above: Performed By: #### Kenna A, LDO, CHM7, MGO, BILI, ASTO #### [facility] (DEFAULT) [address] [place] [address] 55290 MCV (RBC) [Entitic vol] 80.2 fL Normal 79.6-97.7 O [facility] Comment on above: Performed By: #### Kenna A, LDO, CHM7, MGO, BILI, ASTO #### [facility] (DEFAULT) [address] [place] [address] 78953 Mean Cell Hgb 24.0 pg Low 25.9-33.9 [facility] Comment on above: Performed By: #### Kenna A, LDO, CHM7, MGO, BILI, ASTO #### [facility] (DEFAULT) [address] [place] [address] 08814 Mean Cell Hgb Conc 30.0 g/dL Low 31.4-35.9 [facility] Comment on above: Performed By: #### Kenna A, LDO, CHM7, MGO, BILI, ASTO #### [facility] (DEFAULT) [address] [place] [address] 81569 Monocyte % Auto Normal [facility] Comment on above: Performed By: #### C A, LDO, CHM7, MGO, BILI, ASTO #### [facility] (DEFAULT) [address] [place] [address] 74471 Platelet mean volume (Bld) [Entitic vol] 11.3 fL Normal 8.5-12.2 [facility] Comment on above: Performed By: #### C A, LDO, CHM7, MGO, BILI, ASTO #### [facility] (DEFAULT) [address] [place] [address] 60748 Platelets (Bld) [#/Vol] 210 10*3/uL Normal 150-393 [facility] Comment on above: Performed By: #### C A, LDO, CHM7, MGO, BILI, ASTO #### [facility] (DEFAULT) [address] [place] [address] 33867 RBC (Bld) [#/Vol] 3.33 10*6/uL Low 3.91-5.04 [facility] Comment on above: Performed By: #### C A, LDO, CHM7, MGO, BILI, ASTO #### [facility] (DEFAULT) [address] [place] [address] 28265 RBC Distribution 16.7 % High 10.8-14.9 [facility] Comment on above: Performed By: #### C A, LDO, CHM7, MGO, BILI, ASTO #### [facility] (DEFAULT) [address] [place] [address] 94148 Segs + Bands Auto Normal [facility] Comment on above: Performed By: #### C A, LDO, CHM7, MGO, BILI, ASTO #### [facility] (DEFAULT) [address] [place] [address] 94075 Segs + Bands,Absolute Auto Normal [facility] Comment on above: Performed By: #### C A, LDO, CHM7, MGO, BILI, ASTO #### [facility] (DEFAULT) [address] [place] [address] 28133 WBC (Bld) [#/Vol] 31.55 10*3/uL High 3.99-11.19 [facility] Comment on above: Performed By: #### C A, LDO, CHM7, MGO, BILI, ASTO #### [facility] (DEFAULT) [address] [place] [address] 19592 CHEM 7 (LYTES,BUN,CREA,GLUC) on 06-23-2020 Anion gap [Moles/Vol] 9 mmol/L Normal 7-17 [facility] Comment on above: Performed By: #### A STO, LDO, MGO, CHM7, BILI, CA ####[facility] (DEFAULT)[address] [place] [address] 97997 Chloride [Moles/Vol] 109 mmol/L High 98-108 [facility] Comment on above: Performed By: #### A STO, LDO, MGO, CHM7, BILI, CA ####[facility] (DEFAULT)[address] [place] [address] 58552 CO2 [Moles/Vol] 25 mmol/L Normal 22-30 [facility] Comment on above: Performed By: #### A STO, LDO, MGO, CHM7, BILI, CA ####[facility] (DEFAULT)[address] [place] [address] 49890 Creatinine [Mass/Vol] 0.53 mg/dL Normal 0.50-1.20 [facility] Comment on above: Performed By: #### A STO, LDO, MGO, CHM7, BILI, CA ####[facility] (DEFAULT)[address] [place] [address] 35084 EST GFR, >=60 Normal >=60 [facility] Comment on above: Performed By: #### A STO, LDO, MGO, CHM7, BILI, CA ####[facility] (DEFAULT)[address] [place] [address] 88682 EST GFR,Non >=60 Normal >=60 [facility] Comment on above: Performed By: #### A STO, LDO, MGO, CHM7, BILI, CA ####[facility] (DEFAULT)[address] [place] [address] Glucose [Mass/Vol] 145 mg/dL High 70-99 [facility] Comment on above: Performed By: #### A STO, LDO, MGO, CHM7, BILI, CA ####[facility] (DEFAULT)[address] [place] [address] Osmolality [Osmolality] 294 mosm/kg Normal 278-305 [facility] Comment on above: Performed By: #### A STO, LDO, MGO, CHM7, BILI, CA ####[facility] (DEFAULT)[address] [place] [address] Potassium [Moles/Vol] 4.1 mmol/L Normal 3.5-5.0 [facility] Comment on above: Performed By: #### A STO, LDO, MGO, CHM7, BILI, CA ####[facility] (DEFAULT)[address] [place] [address] Sodium [Moles/Vol] 139 mmol/L Normal 133-143 [facility] Comment on above: Performed By: #### A STO, LDO, MGO, CHM7, BILI, CA ####[facility] (DEFAULT)[address] [place] [address] Urea nitrogen [Mass/Vol] 14 mg/dL Normal 7-22 [facility] Comment on above: Performed By: #### A STO, LDO, MGO, CHM7, BILI, CA ####[facility] (DEFAULT)[address] [place] [address] Urea nitrogen/Creatinine [Mass ratio] 26 mg/mg Normal [facility] Comment on above: Performed By: #### A STO, LDO, MGO, CHM7, BILI, CA ####[facility] (DEFAULT)[address] [place] [address] LACTATE DEHYDROGENASEon 06-09 LD Total 169 U/L Normal 100-190 [facility] Comment on above: Performed By: #### A STO, LDO, MGO, CHM7, BILI, CA ####[facility] (DEFAULT)[address] [place] [address] 47780 MAGNESIUMon 06-23-2020 Magnesium [Mass/Vol] 1.8 mg/dL Normal 1.6-2.6 [facility] Comment on above: Performed By: #### A STO, LDO, MGO, CHM7, BILI, CA ####[facility] (DEFAULT)[address] [place] [address] 37596 MANUAL DIFFon 06-23-2020 Abs Baso Manual 0.00 K/uL Normal 0.00-0.15 [facility] Comment on above: Performed By: #### C A, LDO, CHM7, MGO, BILI, ASTO #### [facility] (DEFAULT) [address] [place] [address] 44268 Abs Eos Manual 0.00 K\uL Normal 0.00-0.42 [facility] Comment on above: Performed By: #### C A, LDO, CHM7, MGO, BILI, ASTO #### [facility] (DEFAULT) [address] [place] [address] 49139 Abs Lymph Manual 0.28 K/uL Low 1.16-3.51 [facility] Comment on above: Performed By: #### C A, LDO, CHM7, MGO, BILI, ASTO #### [facility] (DEFAULT) [address] [place] [address] 76163 Abs Lincoln Manual 0.00 K/uL Low 0.22-0.87 [facility] Comment on above: Performed By: #### C A, LDO, CHM7, MGO, BILI, ASTO #### [facility] (DEFAULT) [address] [place] [address] 30991 Bands Relative 0.0 % Normal [facility] Comment on above: Performed By: #### C A, LDO, CHM7, MGO, BILI, ASTO #### [facility] (DEFAULT) [address] [place] [address] 46773 Baso Relative 0.0 % Normal [facility] Comment on above: Performed By: #### C A, LDO, CHM7, MGO, BILI, ASTO #### [facility] (DEFAULT) [address] [place] [address] 28430 BKR SEGS + BANDS, ABSOLUTE 31.27 K/uL High Male: 1.57-6.19, Female: 1.64-7..28 [facility] Comment on above: Performed By: #### C A, LDO, CHM7, MGO, BILI, ASTO #### [facility] (DEFAULT) [address] [place] [address] 51700 DIFF STATUS Manual Differential Normal [facility] Comment on above: Performed By: #### C A, LDO, CHM7, MGO, BILI, ASTO #### [facility] (DEFAULT) [address] [place] [address] 24704 Eos Relative 0.0 % Normal [facility] Comment on above: Performed By: #### C A, LDO, CHM7, MGO, BILI, ASTO #### [facility] (DEFAULT) [address] [place] [address] 28761 Lymph Relative 0.9 % Normal [facility] Comment on above: Performed By: #### C A, LDO, CHM7, MGO, BILI, ASTO #### [facility] (DEFAULT) [address] [place] [address] 97799 Lincoln Relative 0.0 % Normal [facility] Comment on above: Performed By: #### C A, LDO, CHM7, MGO, BILI, ASTO #### [facility] (DEFAULT) [address] [place] [address] 99333 Ovalocytes Present Abnormal (none) [facility] Comment on above: Performed By: #### C A, LDO, CHM7, MGO, BILI, ASTO #### [facility] (DEFAULT) [address] [place] [address] 75057 Platelet Estimate Automated platelet c ount confirmed by manual slide review Normal [facility] Comment on above: Performed By: #### C A, LDO, CHM7, MGO, BILI, ASTO #### [facility] (DEFAULT) [address] [place] [address] 00036 Polychromasia 1+ Abnormal (none) [facility] Comment on above: Performed By: #### C A, LDO, CHM7, MGO, BILI, ASTO #### [facility] (DEFAULT) [address] [place] [address] 97551 RBC Morphology RBC INDICES CONFIRME D WITH MANUAL SLIDE REVIEW Normal [facility] Comment on above: Performed By: #### C A, LDO, CHM7, MGO, BILI, ASTO #### [facility] (DEFAULT) [address] [place] [address] 70822 Segs Relative 99.1 % Normal [facility] Comment on above: Performed By: #### C A, LDO, CHM7, MGO, BILI, ASTO #### [facility] (DEFAULT) [address] [place] [address] 85806 PHOSPHATE, INORGANICon 06-23 Phosphorous 2.6 mg/dL Normal 2.2-4.6 [facility] Comment on above: Performed By: #### C A, LDO, CHM7, MGO, BILI, ASTO #### [facility] (DEFAULT) [address] [place] [address] 96027 Idalmis 06-22-2020 AST [Catalytic activity/Vol] 14 U/L Normal 14-40 [facility] Comment on above: Performed By: #### C A, LDO, CHM7, MGO, BILI, ASTO #### [facility] (DEFAULT) [address] [place] [address] 70589 BILIRUBIN, TOTAL AND DIRECTo n 06-22-2020 Bilirubin [Mass/Vol] 0.4 mg/dL Normal <1.5 [facility] Comment on above: Performed By: #### C A, LDO, CHM7, MGO, BILI, ASTO #### [facility] (DEFAULT) [address] [place] [address] 30724 Bilirubin.indirect [Mass/Vol] mg/dL Normal <0.3 [facility] Comment on above: Performed By: #### C A, LDO, CHM7, MGO, BILI, ASTO #### [facility] (DEFAULT) [address] [place] [address] 41820 CALCIUMon 06-22-2020 Calcium [Mass/Vol] 7.8 mg/dL Low 8.6-10.5 [facility] Comment on above: Performed By: #### C A, LDO, CHM7, MGO, BILI, ASTO #### [facility] (DEFAULT) [address] [place] [address] 97377 CBC AND ELECTRONIC DIFFon Basophils (Bld) [#/Vol] 0.06 10*3/uL Normal 0.00-0.15 [facility] Comment on above: Performed By: #### L [id number] ####[facility] (DEFAULT)[address] [place] [address] 72276 Basophils/100 WBC (Bld) 0.4 % Normal O [facility] Comment on above: Performed By: #### L [id number] ####[facility] (DEFAULT)[address] [place] [address] 21048 DIFF STATUS Electronic Differential Normal [facility] Comment on above: Performed By: #### L AB980 ####[facility] (DEFAULT)[address] [place] [address] 45379 Eosinophils (Bld) [#/Vol] 0.23 10*3/uL Normal 0.00-0.42 [facility] Comment on above: Performed By: #### L AB980 ####[facility] (DEFAULT)[address] [place] [address] Eosinophils/100 WBC (Bld) 1.6 % Normal [facility] Comment on above: Performed By: #### L [id number] ####[facility] (DEFAULT)[address] [place] [address] Hematocrit (Bld) [Volume fraction] 26.7 % Low 34.9-44.3 [facility] Comment on above: Performed By: #### L [id number] ####[facility] (DEFAULT)[address] [place] [address] Hemoglobin (Bld) [Mass/Vol] 7.9 g/dL Low 11.4-15.2 [facility] Comment on above: Performed By: #### L [id number] ####[facility] (DEFAULT)[address] [place] [address] Immature Grans % 0.8 % Normal [facility] Comment on above: Performed By: #### L [id number] ####[facility] (DEFAULT)[address] [place] [address] Immature Grans Absolute 0.11 K/uL High <=0.09 O [facility] Comment on above: Performed By: #### L [id number] ####[facility] (DEFAULT)[address] [place] [address] Lymphocytes (Bld) [#/Vol] 1.01 10*3/uL Low 1.16-3.51 [facility] Comment on above: Performed By: #### L [id number] ####[facility] (DEFAULT)[address] [place] [address] Lymphocytes/100 WBC (Bld) 7.2 % Normal [facility] Comment on above: Performed By: #### L [id number] ####[facility] (DEFAULT)[address] [place] [address] MCV (RBC) [Entitic vol] 79.9 fL Normal 79.6-97.7 O [facility] Comment on above: Performed By: #### L [id number] ####[facility] (DEFAULT)[address] [place] [address] Mean Cell Hgb 23.7 pg Low 25.9-33.9 [facility] Comment on above: Performed By: #### L [id number] ####[facility] (DEFAULT)[address] [place] [address] Mean Cell Hgb Conc 29.6 g/dL Low 31.4-35.9 [facility] Comment on above: Performed By: #### L [id number] ####[facility] (DEFAULT)[address] [place] [address] Monocytes (Bld) [#/Vol] 0.89 10*3/uL High 0.22-0.87 [facility] Comment on above: Performed By: #### L [id number] ####[facility] (DEFAULT)[address] [place] [address] Monocytes/100 WBC (Bld) 6.3 % Normal O [facility] Comment on above: Performed By: #### L [id number] ####[facility] (DEFAULT)[address] [place] [address] Nucleated RBC 0.0 /100 WBC Normal <=0.2 [facility] Comment on above: Performed By: #### L [id number] ####[facility] (DEFAULT)[address] [place] [address] Platelet mean volume (Bld) [Entitic vol] 11.3 fL Normal 8.5-12.2 [facility] Comment on above: Performed By: #### L [id number] ####[facility] (DEFAULT)[address] [place] [address] Platelets (Bld) [#/Vol] 200 10*3/uL Normal 150-393 [facility] Comment on above: Performed By: #### L [id number] ####[facility] (DEFAULT)[address] [place] [address] RBC (Bld) [#/Vol] 3.34 10*6/uL Low 3.91-5.04 [facility] Comment on above: Performed By: #### L [id number] ####[facility] (DEFAULT)[address] [place] [address] RBC Distribution 16.5 % High 10.8-14.9 [facility] Comment on above: Performed By: #### L [id number] ####[facility] (DEFAULT)[address] [place] [address] Segs + Bands Auto 83.7 % Normal [facility] Comment on above: Performed By: #### L [id number] ####[facility] (DEFAULT)[address] [place] [address] Segs + Bands,Absolute Auto 11.81 K/uL High 1.64-7.28 [facility] Comment on above: Performed By: #### L [id number] ####[facility] (DEFAULT)[address] [place] [address] WBC (Bld) [#/Vol] 14.11 10*3/uL High 3.99-11.19 [facility] Comment on above: Performed By: #### L [id number] ####[facility] (DEFAULT)[address] [place] [address] CHEM 7 (LYTES,BUN,CREA,GLUC) on 06-22-2020 Anion gap [Moles/Vol] 11 mmol/L Normal 7-17 [facility] Comment on above: Performed By: #### C A, LDO, CHM7, MGO, BILI, ASTO #### [facility] (DEFAULT) [address] [place] [address] 87754 Chloride [Moles/Vol] 109 mmol/L High 98-108 [facility] Comment on above: Performed By: #### C A, LDO, CHM7, MGO, BILI, ASTO #### [facility] (DEFAULT) [address] [place] [address] 55948 CO2 [Moles/Vol] 22 mmol/L Normal 22-30 [facility] Comment on above: Performed By: #### C A, LDO, CHM7, MGO, BILI, ASTO #### [facility] (DEFAULT) [address] [place] [address] 06045 Creatinine [Mass/Vol] 0.57 mg/dL Normal 0.50-1.20 [facility] Comment on above: Performed By: #### C A, LDO, CHM7, MGO, BILI, ASTO #### [facility] (DEFAULT) [address] [place] [address] 64794 EST GFR, >=60 Normal >=60 [facility] Comment on above: Performed By: #### C A, LDO, CHM7, MGO, BILI, ASTO #### [facility] (DEFAULT) [address] [place] [address] 27561 EST GFR,Non >=60 Normal >=60 [facility] Comment on above: Performed By: #### C A, LDO, CHM7, MGO, BILI, ASTO #### [facility] (DEFAULT) [address] [place] [address] 19268 Glucose [Mass/Vol] 120 mg/dL High 70-99 [facility] Comment on above: Performed By: #### C A, LDO, CHM7, MGO, BILI, ASTO #### [facility] (DEFAULT) [address] [place] [address] 86624 Osmolality [Osmolality] 290 mosm/kg Normal 278-305 [facility] Comment on above: Performed By: #### C A, LDO, CHM7, MGO, BILI, ASTO #### [facility] (DEFAULT) [address] [place] [address] 35216 Potassium [Moles/Vol] 3.5 mmol/L Normal 3.5-5.0 [facility] Comment on above: Performed By: #### C A, LDO, CHM7, MGO, BILI, ASTO #### [facility] (DEFAULT) [address] [place] [address] 91899 Sodium [Moles/Vol] 138 mmol/L Normal 133-143 [facility] Comment on above: Performed By: #### C A, LDO, CHM7, MGO, BILI, ASTO #### [facility] (DEFAULT) [address] [place] [address] 96185 Urea nitrogen [Mass/Vol] 14 mg/dL Normal 7-22 [facility] Comment on above: Performed By: #### C A, LDO, CHM7, MGO, BILI, ASTO #### [facility] (DEFAULT) [address] [place] [address] 78313 Urea nitrogen/Creatinine [Mass ratio] 25 mg/mg Normal [facility] Comment on above: Performed By: #### C A, LDO, CHM7, MGO, BILI, ASTO #### [facility] (DEFAULT) [address] [place] [address] 38072 LACTATE DEHYDROGENASEon 06-09 LD Total 201 U/L High 100-190 [facility] Comment on above: Performed By: #### C A, LDO, CHM7, MGO, BILI, ASTO #### [facility] (DEFAULT) [address] [place] [address] 20459 MAGNESIUMon 06-22-2020 Magnesium [Mass/Vol] 1.8 mg/dL Normal 1.6-2.6 [facility] Comment on above: Performed By: #### C A, LDO, CHM7, MGO, BILI, ASTO #### [facility] (DEFAULT) [address] [place] [address] 75169 PHOSPHATE, INORGANICon 06-22 Phosphorous 2.4 mg/dL Normal 2.2-4.6 [facility] Comment on above: Performed By: #### C A, LDO, CHM7, MGO, BILI, ASTO #### [facility] (DEFAULT) [address] [place] [address] 42330 ABORH TYPE RECONFIRMATIONon 06-21-2020 ABO/RH(D) TYPE Positive Normal [facility] Comment on above: Performed By: #### T YPEC #### [facility] (DEFAULT) [address] [place] [address] 49012 Idalmis 06-21-2020 AST [Catalytic activity/Vol] 14 U/L Normal 14-40 [facility] Comment on above: Performed By: #### C A, LDO, CHM7, MGO, BILI, ASTO #### [facility] (DEFAULT) [address] [place] [address] 72730 BILIRUBIN, TOTAL AND DIRECTo n 06-21-2020 Bilirubin [Mass/Vol] 0.4 mg/dL Normal <1.5 [facility] Comment on above: Performed By: #### C A, LDO, CHM7, MGO, BILI, ASTO #### [facility] (DEFAULT) [address] [place] [address] 05596 Bilirubin.indirect [Mass/Vol] 0.1 mg/dL Normal <0.3 [facility] Comment on above: Performed By: #### C A, LDO, CHM7, MGO, BILI, ASTO #### [facility] (DEFAULT) [address] [place] [address] 98102 CALCIUMon 06-21-2020 Calcium [Mass/Vol] 7.9 mg/dL Low 8.6-10.5 [facility] Comment on above: Performed By: #### C A, LDO, CHM7, MGO, BILI, ASTO #### [facility] (DEFAULT) [address] [place] [address] 91690 CBC AND ELECTRONIC DIFFon Basophils (Bld) [#/Vol] 10*3/uL Normal 0.00-0.15 O [facility] Comment on above: Performed By: #### C A, LDO, CHM7, MGO, BILI, ASTO #### [facility] (DEFAULT) [address] [place] [address] 84395 Basophils/100 WBC (Bld) 0.1 % Normal O [facility] Comment on above: Performed By: #### C A, LDO, CHM7, MGO, BILI, ASTO #### [facility] (DEFAULT) [address] [place] [address] 87384 DIFF STATUS Electronic Differential Normal [facility] Comment on above: Performed By: #### C A, LDO, CHM7, MGO, BILI, ASTO #### [facility] (DEFAULT) [address] [place] [address] 31428 Eosinophils (Bld) [#/Vol] 10*3/uL Normal 0.00-0.42 [facility] Comment on above: Performed By: #### C A, LDO, CHM7, MGO, BILI, ASTO #### [facility] (DEFAULT) [address] [place] [address] 46389 Eosinophils/100 WBC (Bld) 0.1 % Normal [facility] Comment on above: Performed By: #### C A, LDO, CHM7, MGO, BILI, ASTO #### [facility] (DEFAULT) [address] [place] [address] 99242 Hematocrit (Bld) [Volume fraction] 28.3 % Low 34.9-44.3 [facility] Comment on above: Performed By: #### C A, LDO, CHM7, MGO, BILI, ASTO #### [facility] (DEFAULT) [address] [place] [address] 63883 Hemoglobin (Bld) [Mass/Vol] 8.4 g/dL Low 11.4-15.2 [facility] Comment on above: Performed By: #### C A, LDO, CHM7, MGO, BILI, ASTO #### [facility] (DEFAULT) [address] [place] [address] 43205 Immature Grans % 1.6 % Normal [facility] Comment on above: Performed By: #### C A, LDO, CHM7, MGO, BILI, ASTO #### [facility] (DEFAULT) [address] [place] [address] 74297 Immature Grans Absolute 0.12 K/uL High <=0.09 O [facility] Comment on above: Performed By: #### C A, LDO, CHM7, MGO, BILI, ASTO #### [facility] (DEFAULT) [address] [place] [address] 11327 Lymphocytes (Bld) [#/Vol] 0.41 10*3/uL Low 1.16-3.51 [facility] Comment on above: Performed By: #### C A, LDO, CHM7, MGO, BILI, ASTO #### [facility] (DEFAULT) [address] [place] [address] 41292 Lymphocytes/100 WBC (Bld) 5.5 % Normal [facility] Comment on above: Performed By: #### C A, LDO, CHM7, MGO, BILI, ASTO #### [facility] (DEFAULT) [address] [place] [address] 37037 MCV (RBC) [Entitic vol] 80.4 fL Normal 79.6-97.7 O [facility] Comment on above: Performed By: #### C A, LDO, CHM7, MGO, BILI, ASTO #### [facility] (DEFAULT) [address] [place] [address] 86625 Mean Cell Hgb 23.9 pg Low 25.9-33.9 [facility] Comment on above: Performed By: #### C A, LDO, CHM7, MGO, BILI, ASTO #### [facility] (DEFAULT) [address] [place] [address] 53444 Mean Cell Hgb Conc 29.7 g/dL Low 31.4-35.9 [facility] Comment on above: Performed By: #### C A, LDO, CHM7, MGO, BILI, ASTO #### [facility] (DEFAULT) [address] [place] [address] 00356 Monocytes (Bld) [#/Vol] 0.13 10*3/uL Low 0.22-0.87 [facility] Comment on above: Performed By: #### C A, LDO, CHM7, MGO, BILI, ASTO #### [facility] (DEFAULT) [address] [place] [address] 75264 Monocytes/100 WBC (Bld) 1.8 % Normal O [facility] Comment on above: Performed By: #### C A, LDO, CHM7, MGO, BILI, ASTO #### [facility] (DEFAULT) [address] [place] [address] 25866 Nucleated RBC 0.0 /100 WBC Normal <=0.2 [facility] Comment on above: Performed By: #### C A, LDO, CHM7, MGO, BILI, ASTO #### [facility] (DEFAULT) [address] [place] [address] 15144 Platelet mean volume (Bld) [Entitic vol] 11.4 fL Normal 8.5-12.2 [facility] Comment on above: Performed By: #### C A, LDO, CHM7, MGO, BILI, ASTO #### [facility] (DEFAULT) [address] [place] [address] 63454 Platelets (Bld) [#/Vol] 209 10*3/uL Normal 150-393 [facility] Comment on above: Performed By: #### C A, LDO, CHM7, MGO, BILI, ASTO #### [facility] (DEFAULT) [address] [place] [address] 53015 RBC (Bld) [#/Vol] 3.52 10*6/uL Low 3.91-5.04 [facility] Comment on above: Performed By: #### C A, LDO, CHM7, MGO, BILI, ASTO #### [facility] (DEFAULT) [address] [place] [address] 33394 RBC Distribution 16.4 % High 10.8-14.9 [facility] Comment on above: Performed By: #### C A, LDO, CHM7, MGO, BILI, ASTO #### [facility] (DEFAULT) [address] [place] [address] 62188 Segs + Bands Auto 90.9 % Normal [facility] Comment on above: Performed By: #### C A, LDO, CHM7, MGO, BILI, ASTO #### [facility] (DEFAULT) [address] [place] [address] 59708 Segs + Bands,Absolute Auto 6.71 K/uL Normal 1.64-7.28 [facility] Comment on above: Performed By: #### C A, LDO, CHM7, MGO, BILI, ASTO #### [facility] (DEFAULT) [address] [place] [address] 97839 WBC (Bld) [#/Vol] 7.39 10*3/uL Normal 3.99-11.19 [facility] Comment on above: Performed By: #### C A, LDO, CHM7, MGO, BILI, ASTO #### [facility] (DEFAULT) [address] [place] [address] 91654 CHEM 7 (LYTES,BUN,CREA,GLUC) on 06-21-2020 Anion gap [Moles/Vol] 9 mmol/L Normal 7-17 [facility] Comment on above: Performed By: #### C A, LDO, CHM7, MGO, BILI, ASTO #### [facility] (DEFAULT) [address] [place] [address] 64517 Chloride [Moles/Vol] 110 mmol/L High 98-108 [facility] Comment on above: Performed By: #### C A, LDO, CHM7, MGO, BILI, ASTO #### [facility] (DEFAULT) [address] [place] [address] 30585 CO2 [Moles/Vol] 24 mmol/L Normal 22-30 [facility] Comment on above: Performed By: #### C A, LDO, CHM7, MGO, BILI, ASTO #### [facility] (DEFAULT) [address] [place] [address] 67854 Creatinine [Mass/Vol] 0.46 mg/dL Low 0.50-1.20 [facility] Comment on above: Performed By: #### C A, LDO, CHM7, MGO, BILI, ASTO #### [facility] (DEFAULT) [address] [place] [address] 93154 EST GFR, >=60 Normal >=60 [facility] Comment on above: Performed By: #### C A, LDO, CHM7, MGO, BILI, ASTO #### [facility] (DEFAULT) [address] [place] [address] 70077 EST GFR,Non >=60 Normal >=60 [facility] Comment on above: Performed By: #### C A, LDO, CHM7, MGO, BILI, ASTO #### [facility] (DEFAULT) [address] [place] [address] 05405 Glucose [Mass/Vol] 171 mg/dL High 70-99 [facility] Comment on above: Performed By: #### C A, LDO, CHM7, MGO, BILI, ASTO #### [facility] (DEFAULT) [address] [place] [address] 26379 Osmolality [Osmolality] 295 mosm/kg Normal 278-305 [facility] Comment on above: Performed By: #### C A, LDO, CHM7, MGO, BILI, ASTO #### [facility] (DEFAULT) [address] [place] [address] 60671 Potassium [Moles/Vol] 4.2 mmol/L Normal 3.5-5.0 [facility] Comment on above: Performed By: #### C A, LDO, CHM7, MGO, BILI, ASTO #### [facility] (DEFAULT) [address] [place] [address] 10376 Sodium [Moles/Vol] 139 mmol/L Normal 133-143 [facility] Comment on above: Performed By: #### C A, LDO, CHM7, MGO, BILI, ASTO #### [facility] (DEFAULT) [address] [place] [address] 54298 Urea nitrogen [Mass/Vol] 10 mg/dL Normal 7-22 [facility] Comment on above: Performed By: #### C A, LDO, CHM7, MGO, BILI, ASTO #### [facility] (DEFAULT) [address] [place] [address] 86732 Urea nitrogen/Creatinine [Mass ratio] 22 mg/mg Normal [facility] Comment on above: Performed By: #### C A, LDO, CHM7, MGO, BILI, ASTO #### [facility] (DEFAULT) [address] [place] [address] 08682 LACTATE DEHYDROGENASEon - LD Total 185 U/L Normal 100-190 [facility] Comment on above: Performed By: #### C A, LDO, CHM7, MGO, BILI, ASTO #### [facility] (DEFAULT) [address] [place] [address] 21253 MAGNESIUMon 06-21-2020 Magnesium [Mass/Vol] 1.8 mg/dL Normal 1.6-2.6 [facility] Comment on above: Performed By: #### C A, LDO, CHM7, MGO, BILI, ASTO #### [facility] (DEFAULT) [address] [place] [address] 20758 PHOSPHATE, INORGANICon 06-21 Phosphorous 2.8 mg/dL Normal 2.2-4.6 [facility] Comment on above: Performed By: #### C A, LDO, CHM7, MGO, BILI, ASTO #### [facility] (DEFAULT) [address] [place] [address] 56326 TYPE AND SCREENon 06-21-2020 ABO/RH(D) TYPE Positive Normal [facility] Comment on above: Performed By: #### C A, LDO, CHM7, MGO, BILI, ASTO #### [facility] (DEFAULT) [address] [place] [address] 25851 Idalmis 06-20-2020 AST [Catalytic activity/Vol] 17 U/L Normal 14-40 [facility] Comment on above: Performed By: #### C A, LDO, CHM7, MGO, BILI, ASTO #### [facility] (DEFAULT) [address] [place] [address] 53294 BILIRUBIN, TOTAL AND DIRECTo n 06-20-2020 Bilirubin [Mass/Vol] 0.4 mg/dL Normal <1.5 [facility] Comment on above: Performed By: #### C A, LDO, CHM7, MGO, BILI, ASTO #### [facility] (DEFAULT) [address] [place] [address] 57887 Bilirubin.indirect [Mass/Vol] 0.1 mg/dL Normal <0.3 [facility] Comment on above: Performed By: #### C A, LDO, CHM7, MGO, BILI, ASTO #### [facility] (DEFAULT) [address] [place] [address] 99160 CALCIUMon 06-20-2020 Calcium [Mass/Vol] 8.2 mg/dL Low 8.6-10.5 [facility] Comment on above: Performed By: #### C A, LDO, CHM7, MGO, BILI, ASTO #### [facility] (DEFAULT) [address] [place] [address] 73116 CBC AND ELECTRONIC DIFFon Basophils (Bld) [#/Vol] 10*3/uL Normal 0.00-0.15 O [facility] Comment on above: Performed By: #### L [id number] ####[facility] (DEFAULT)[address] [place] [address] 75418 Basophils/100 WBC (Bld) 0.4 % Normal [facility] Comment on above: Performed By: #### L AB980 ####[facility] (DEFAULT)[address] [place] [address] 80417 DIFF STATUS Electronic Differential Normal [facility] Comment on above: Performed By: #### L AB980 ####[facility] (DEFAULT)[address] [place] [address] 48347 Eosinophils (Bld) [#/Vol] 0.52 10*3/uL High 0.00-0.42 [facility] Comment on above: Performed By: #### L AB980 ####[facility] (DEFAULT)[address] [place] [address] 51177 Eosinophils/100 WBC (Bld) 6.5 % Normal [facility] Comment on above: Performed By: #### L AB980 ####[facility] (DEFAULT)[address] [place] [address] 51898 Hematocrit (Bld) [Volume fraction] 28.1 % Low 34.9-44.3 [facility] Comment on above: Performed By: #### L AB980 ####[facility] (DEFAULT)[address] [place] [address] Hemoglobin (Bld) [Mass/Vol] 8.3 g/dL Low 11.4-15.2 [facility] Comment on above: Performed By: #### L AB980 ####[facility] (DEFAULT)[address] [place] [address] Immature Grans % 0.9 % Normal [facility] Comment on above: Performed By: #### L AB980 ####[facility] (DEFAULT)[address] [place] [address] Immature Grans Absolute 0.07 K/uL Normal <=0.09 O [facility] Comment on above: Performed By: #### L AB980 ####[facility] (DEFAULT)[address] [place] [address] Lymphocytes (Bld) [#/Vol] 1.00 10*3/uL Low 1.16-3.51 [facility] Comment on above: Performed By: #### L AB980 ####[facility] (DEFAULT)[address] [place] [address] Lymphocytes/100 WBC (Bld) 12.5 % Normal [facility] Comment on above: Performed By: #### L AB980 ####[facility] (DEFAULT)[address] [place] [address] MCV (RBC) [Entitic vol] 80.7 fL Normal 79.6-97.7 O [facility] Comment on above: Performed By: #### L AB980 ####[facility] (DEFAULT)[address] [place] [address] Mean Cell Hgb 23.9 pg Low 25.9-33.9 [facility] Comment on above: Performed By: #### L AB980 ####[facility] (DEFAULT)[address] [place] [address] Mean Cell Hgb Conc 29.5 g/dL Low 31.4-35.9 [facility] Comment on above: Performed By: #### L AB980 ####[facility] (DEFAULT)[address] [place] [address] Monocytes (Bld) [#/Vol] 0.76 10*3/uL Normal 0.22-0.87 [facility] Comment on above: Performed By: #### L AB980 ####[facility] (DEFAULT)[address] [place] [address] Monocytes/100 WBC (Bld) 9.5 % Normal [facility] Comment on above: Performed By: #### L AB980 ####[facility] (DEFAULT)[address] [place] [address] Nucleated RBC 0.2 /100 WBC Normal <=0.2 [facility] Comment on above: Performed By: #### L [id number] ####[facility] (DEFAULT)[address] [place] [address] Platelet mean volume (Bld) [Entitic vol] 11.5 fL Normal 8.5-12.2 [facility] Comment on above: Performed By: #### L AB980 ####[facility] (DEFAULT)[address] [place] [address] Platelets (Bld) [#/Vol] 216 10*3/uL Normal 150-393 [facility] Comment on above: Performed By: #### L [id number] ####[facility] (DEFAULT)[address] [place] [address] RBC (Bld) [#/Vol] 3.48 10*6/uL Low 3.91-5.04 [facility] Comment on above: Performed By: #### L AB980 ####[facility] (DEFAULT)[address] [place] [address] RBC Distribution 16.8 % High 10.8-14.9 [facility] Comment on above: Performed By: #### L AB980 ####[facility] (DEFAULT)[address] [place] [address] Segs + Bands Auto 70.2 % Normal [facility] Comment on above: Performed By: #### L [id number] ####[facility] (DEFAULT)[address] [place] [address] Segs + Bands,Absolute Auto 5.64 K/uL Normal 1.64-7.28 [facility] Comment on above: Performed By: #### L [id number] ####[facility] (DEFAULT)[address] [place] [address] 25797 WBC (Bld) [#/Vol] 8.02 10*3/uL Normal 3.99-11.19 [facility] Comment on above: Performed By: #### L [id number] ####[facility] (DEFAULT)[address] [place] [address] 10677 CHEM 7 (LYTES,BUN,CREA,GLUC) on 06-20-2020 Anion gap [Moles/Vol] 11 mmol/L Normal 7-17 [facility] Comment on above: Performed By: #### C A, LDO, CHM7, MGO, BILI, ASTO #### [facility] (DEFAULT) [address] [place] [address] 05377 Chloride [Moles/Vol] 111 mmol/L High 98-108 [facility] Comment on above: Performed By: #### C A, LDO, CHM7, MGO, BILI, ASTO #### [facility] (DEFAULT) [address] [place] [address] 57335 CO2 [Moles/Vol] 25 mmol/L Normal 22-30 [facility] Comment on above: Performed By: #### C A, LDO, CHM7, MGO, BILI, ASTO #### [facility] (DEFAULT) [address] [place] [address] 68387 Creatinine [Mass/Vol] 0.62 mg/dL Normal 0.50-1.20 [facility] Comment on above: Performed By: #### C A, LDO, CHM7, MGO, BILI, ASTO #### [facility] (DEFAULT) [address] [place] [address] 09169 EST GFR, >=60 Normal >=60 [facility] Comment on above: Performed By: #### C A, LDO, CHM7, MGO, BILI, ASTO #### [facility] (DEFAULT) [address] [place] [address] 85614 EST GFR,Non >=60 Normal >=60 [facility] Comment on above: Performed By: #### C A, LDO, CHM7, MGO, BILI, ASTO #### [facility] (DEFAULT) [address] [place] [address] 49744 Glucose [Mass/Vol] 105 mg/dL High 70-99 [facility] Comment on above: Performed By: #### C A, LDO, CHM7, MGO, BILI, ASTO #### [facility] (DEFAULT) [address] [place] [address] 40191 Osmolality [Osmolality] 297 mosm/kg Normal 278-305 [facility] Comment on above: Performed By: #### C A, LDO, CHM7, MGO, BILI, ASTO #### [facility] (DEFAULT) [address] [place] [address] 73476 Potassium [Moles/Vol] 3.9 mmol/L Normal 3.5-5.0 [facility] Comment on above: Performed By: #### C A, LDO, CHM7, MGO, BILI, ASTO #### [facility] (DEFAULT) [address] [place] [address] 41917 Sodium [Moles/Vol] 143 mmol/L Normal 133-143 [facility] Comment on above: Performed By: #### C A, LDO, CHM7, MGO, BILI, ASTO #### [facility] (DEFAULT) [address] [place] [address] 55612 Urea nitrogen [Mass/Vol] 8 mg/dL Normal 7-22 [facility] Comment on above: Performed By: #### C A, LDO, CHM7, MGO, BILI, ASTO #### [facility] (DEFAULT) [address] [place] [address] 41846 Urea nitrogen/Creatinine [Mass ratio] 13 mg/mg Normal [facility] Comment on above: Performed By: #### C A, LDO, CHM7, MGO, BILI, ASTO #### [facility] (DEFAULT) [address] [place] [address] 87142 HCG QUALITATIVE, URINEon Beta HCG ( test) Ql (U) Negative Normal Negative [facility] Comment on above: Order Comment: A uri ne test should be obtained within 7 days of the initiation of chemotherapy for all female patients of child-bearing potential who do not have an exclusionary condition. Performed By: #### T YPEC #### [facility] (DEFAULT) [address] [place] [address] 01918 LACTATE DEHYDROGENASEon 06-09 LD Total 204 U/L High 100-190 [facility] Comment on above: Performed By: #### C A, LDO, CHM7, MGO, BILI, ASTO #### [facility] (DEFAULT) [address] [place] [address] 84484 MAGNESIUMon 06-20-2020 Magnesium [Mass/Vol] 2.0 mg/dL Normal 1.6-2.6 [facility] Comment on above: Performed By: #### C A, LDO, CHM7, MGO, BILI, ASTO #### [facility] (DEFAULT) [address] [place] [address] 31477 PHOSPHATE, INORGANICon 06-20 Phosphorous 2.9 mg/dL Normal 2.2-4.6 [facility] Comment on above: Performed By: #### C A, LDO, CHM7, MGO, BILI, ASTO #### [facility] (DEFAULT) [address] [place] [address] 71430 URINE CULTUREon 06-20-2020 Bacteria identified Cx Nom (U) No Growth Normal [facility] Comment on above: Order Comment: Momin top vacutainer. Urine must be to the fill line to process (4mls). If minimum volume, send urine in a yellow top vacutainer tube.Recollect per lab recommendation. Performed By: #### X M #### [facility] (DEFAULT) [address] [place] [address] 10461 Idalmis 06-19-2020 AST [Catalytic activity/Vol] 23 U/L Normal 14-40 [facility] Comment on above: Performed By: #### X M #### [facility] (DEFAULT) [address] [place] [address] 80472 BILIRUBIN, TOTAL AND DIRECTo n 06-19-2020 Bilirubin [Mass/Vol] 0.4 mg/dL Normal <1.5 [facility] Comment on above: Performed By: #### X M #### [facility] (DEFAULT) [address] [place] [address] 41334 Bilirubin.indirect [Mass/Vol] mg/dL Normal <0.3 [facility] Comment on above: Performed By: #### X M #### [facility] (DEFAULT) [address] [place] [address] 52173 CALCIUMon 06-19-2020 Calcium [Mass/Vol] 8.2 mg/dL Low 8.6-10.5 [facility] Comment on above: Performed By: #### X M #### [facility] (DEFAULT) [address] [place] [address] 37351 CBC AND ELECTRONIC DIFFon Basophils (Bld) [#/Vol] 0.05 10*3/uL Normal 0.00-0.15 [facility] Comment on above: Performed By: #### C A, LDO, CHM7, MGO, BILI, ASTO #### [facility] (DEFAULT) [address] [place] [address] 19811 Basophils/100 WBC (Bld) 0.7 % Normal O [facility] Comment on above: Performed By: #### C A, LDO, CHM7, MGO, BILI, ASTO #### [facility] (DEFAULT) [address] [place] [address] 48600 DIFF STATUS Electronic Differential Normal [facility] Comment on above: Performed By: #### C A, LDO, CHM7, MGO, BILI, ASTO #### [facility] (DEFAULT) [address] [place] [address] 92970 Eosinophils (Bld) [#/Vol] 0.49 10*3/uL High 0.00-0.42 [facility] Comment on above: Performed By: #### C A, LDO, CHM7, MGO, BILI, ASTO #### [facility] (DEFAULT) [address] [place] [address] 82673 Eosinophils/100 WBC (Bld) 6.7 % Normal [facility] Comment on above: Performed By: #### C A, LDO, CHM7, MGO, BILI, ASTO #### [facility] (DEFAULT) [address] [place] [address] 41679 Hematocrit (Bld) [Volume fraction] 30.4 % Low 34.9-44.3 [facility] Comment on above: Performed By: #### C A, LDO, CHM7, MGO, BILI, ASTO #### [facility] (DEFAULT) [address] [place] [address] 23307 Hemoglobin (Bld) [Mass/Vol] 9.0 g/dL Low 11.4-15.2 [facility] Comment on above: Performed By: #### C A, LDO, CHM7, MGO, BILI, ASTO #### [facility] (DEFAULT) [address] [place] [address] 50758 Immature Grans % 1.2 % Normal [facility] Comment on above: Performed By: #### C A, LDO, CHM7, MGO, BILI, ASTO #### [facility] (DEFAULT) [address] [place] [address] 05520 Immature Grans Absolute 0.09 K/uL Normal <=0.09 O [facility] Comment on above: Performed By: #### C A, LDO, CHM7, MGO, BILI, ASTO #### [facility] (DEFAULT) [address] [place] [address] 88188 Lymphocytes (Bld) [#/Vol] 1.13 10*3/uL Low 1.16-3.51 [facility] Comment on above: Performed By: #### C A, LDO, CHM7, MGO, BILI, ASTO #### [facility] (DEFAULT) [address] [place] [address] 46647 Lymphocytes/100 WBC (Bld) 15.4 % Normal [facility] Comment on above: Performed By: #### C A, LDO, CHM7, MGO, BILI, ASTO #### [facility] (DEFAULT) [address] [place] [address] 60179 MCV (RBC) [Entitic vol] 81.3 fL Normal 79.6-97.7 [facility] Comment on above: Performed By: #### C A, LDO, CHM7, MGO, BILI, ASTO #### [facility] (DEFAULT) [address] [place] [address] 33929 Mean Cell Hgb 24.1 pg Low 25.9-33.9 [facility] Comment on above: Performed By: #### C A, LDO, CHM7, MGO, BILI, ASTO #### [facility] (DEFAULT) [address] [place] [address] 95065 Mean Cell Hgb Conc 29.6 g/dL Low 31.4-35.9 [facility] Comment on above: Performed By: #### C A, LDO, CHM7, MGO, BILI, ASTO #### [facility] (DEFAULT) [address] [place] [address] 18690 Monocytes (Bld) [#/Vol] 0.69 10*3/uL Normal 0.22-0.87 [facility] Comment on above: Performed By: #### Kenna A, LDO, CHM7, MGO, BILI, ASTO #### [facility] (DEFAULT) [address] [place] [address] 52732 Monocytes/100 WBC (Bld) 9.4 % Normal O [facility] Comment on above: Performed By: #### Kenna A, LDO, CHM7, MGO, BILI, ASTO #### [facility] (DEFAULT) [address] [place] [address] 24059 Nucleated RBC 0.4 /100 WBC High <=0.2 [facility] Comment on above: Performed By: #### C A, LDO, CHM7, MGO, BILI, ASTO #### [facility] (DEFAULT) [address] [place] [address] 48636 Platelet mean volume (Bld) [Entitic vol] 11.2 fL Normal 8.5-12.2 [facility] Comment on above: Performed By: #### C A, LDO, CHM7, MGO, BILI, ASTO #### [facility] (DEFAULT) [address] [place] [address] 49662 Platelets (Bld) [#/Vol] 255 10*3/uL Normal 150-393 [facility] Comment on above: Performed By: #### C A, LDO, CHM7, MGO, BILI, ASTO #### [facility] (DEFAULT) [address] [place] [address] 11624 RBC (Bld) [#/Vol] 3.74 10*6/uL Low 3.91-5.04 [facility] Comment on above: Performed By: #### C A, LDO, CHM7, MGO, BILI, ASTO #### [facility] (DEFAULT) [address] [place] [address] 30940 RBC Distribution 16.9 % High 10.8-14.9 [facility] Comment on above: Performed By: #### C A, LDO, CHM7, MGO, BILI, ASTO #### [facility] (DEFAULT) [address] [place] [address] 02352 Segs + Bands Auto 66.6 % Normal [facility] Comment on above: Performed By: #### C A, LDO, CHM7, MGO, BILI, ASTO #### [facility] (DEFAULT) [address] [place] [address] 11875 Segs + Bands,Absolute Auto 4.91 K/uL Normal 1.64-7.28 [facility] Comment on above: Performed By: #### C A, LDO, CHM7, MGO, BILI, ASTO #### [facility] (DEFAULT) [address] [place] [address] 35320 WBC (Bld) [#/Vol] 7.36 10*3/uL Normal 3.99-11.19 [facility] Comment on above: Performed By: #### C A, LDO, CHM7, MGO, BILI, ASTO #### [facility] (DEFAULT) [address] [place] [address] 11885 CHEM 7 (LYTES,BUN,CREA,GLUC) on 06-19-2020 Anion gap [Moles/Vol] 14 mmol/L Normal 7-17 [facility] Comment on above: Performed By: #### X M #### [facility] (DEFAULT) [address] [place] [address] 36152 Chloride [Moles/Vol] 109 mmol/L High 98-108 [facility] Comment on above: Performed By: #### X M #### [facility] (DEFAULT) [address] [place] [address] 09794 CO2 [Moles/Vol] 23 mmol/L Normal 22-30 [facility] Comment on above: Performed By: #### X M #### [facility] (DEFAULT) [address] [place] [address] 49936 Creatinine [Mass/Vol] 0.70 mg/dL Normal 0.50-1.20 [facility] Comment on above: Performed By: #### X M #### [facility] (DEFAULT) [address] [place] [address] 61761 EST GFR, >=60 Normal >=60 [facility] Comment on above: Performed By: #### X M #### [facility] (DEFAULT) [address] [place] [address] 87053 EST GFR,Non >=60 Normal >=60 [facility] Comment on above: Performed By: #### X M #### [facility] (DEFAULT) [address] [place] [address] 42677 Glucose [Mass/Vol] 105 mg/dL High 70-99 [facility] Comment on above: Performed By: #### X M #### [facility] (DEFAULT) [address] [address] Osmolality [Osmolality] 295 mosm/kg Normal 278-305 [facility] Comment on above: Performed By: #### X M #### [facility] (DEFAULT) [address] [place] [address] 05786 Potassium [Moles/Vol] 3.9 mmol/L Normal 3.5-5.0 [facility] Comment on above: Performed By: #### X M #### [facility] (DEFAULT) [address] [place] [address] 92413 Sodium [Moles/Vol] 142 mmol/L Normal 133-143 [facility] Comment on above: Performed By: #### X M #### [facility] (DEFAULT) [address] [place] [address] 66402 Urea nitrogen [Mass/Vol] 9 mg/dL Normal 7-22 [facility] Comment on above: Performed By: #### X M #### [facility] (DEFAULT) [address] [place] [address] 30903 Urea nitrogen/Creatinine [Mass ratio] 13 mg/mg Normal [facility] Comment on above: Performed By: #### X M #### [facility] (DEFAULT) [address] [place] [address] 61373 LACTATE DEHYDROGENASEon 06-09 LD Total 222 U/L High 100-190 [facility] Comment on above: Performed By: #### X M #### [facility] (DEFAULT) [address] [place] [address] 42126 MAGNESIUMon 06-19-2020 Magnesium [Mass/Vol] 1.7 mg/dL Normal 1.6-2.6 [facility] Comment on above: Performed By: #### X M #### [facility] (DEFAULT) [address] [place] [address] 97989 PHOSPHATE, INORGANICon 06-19 Phosphorous 3.0 mg/dL Normal 2.2-4.6 [facility] Comment on above: Performed By: #### C A, LDO, CHM7, MGO, BILI, ASTO #### [facility] (DEFAULT) [address] [place] [address] 12214 BASIC METABOLIC PANELon 06-09 Anion gap [Moles/Vol] 7 mmol/L Normal 7-17 [facility] Comment on above: Performed By: #### X M #### [facility] (DEFAULT) [address] [place] [address] 96033 Calcium [Mass/Vol] 8.4 mg/dL Low 8.6-10.5 [facility] Comment on above: Performed By: #### X M #### [facility] (DEFAULT) [address] [place] [address] 15393 Chloride [Moles/Vol] 109 mmol/L High 98-108 [facility] Comment on above: Performed By: #### X M #### [facility] (DEFAULT) [address] [place] [address] 37351 CO2 [Moles/Vol] 29 mmol/L Normal 22-30 [facility] Comment on above: Performed By: #### X M #### [facility] (DEFAULT) [address] [place] [address] 03820 Creatinine [Mass/Vol] 0.66 mg/dL Normal 0.50-1.20 [facility] Comment on above: Performed By: #### X M #### [facility] (DEFAULT) [address] [place] [address] 43139 EST GFR, >=60 Normal >=60 [facility] Comment on above: Performed By: #### X M #### [facility] (DEFAULT) [address] [place] [address] 52105 EST GFR,Non >=60 Normal >=60 [facility] Comment on above: Performed By: #### X M #### [facility] (DEFAULT) [address] [place] [address] 93582 Glucose [Mass/Vol] 135 mg/dL High 70-99 [facility] Comment on above: Performed By: #### X M #### [facility] (DEFAULT) [address] [place] [address] 60036 Osmolality [Osmolality] 296 mosm/kg Normal 278-305 [facility] Comment on above: Performed By: #### X M #### [facility] (DEFAULT) [address] [place] [address] 12694 Potassium [Moles/Vol] 3.9 mmol/L Normal 3.5-5.0 [facility] Comment on above: Performed By: #### X M #### [facility] (DEFAULT) [address] [place] [address] 11089 Sodium [Moles/Vol] 141 mmol/L Normal 133-143 [facility] Comment on above: Performed By: #### X M #### [facility] (DEFAULT) [address] [place] [address] 86310 Urea nitrogen [Mass/Vol] 11 mg/dL Normal 7-22 [facility] Comment on above: Performed By: #### X M #### [facility] (DEFAULT) [address] [place] [address] 74657 Urea nitrogen/Creatinine [Mass ratio] 17 mg/mg Normal [facility] Comment on above: Performed By: #### X M #### [facility] (DEFAULT) [address] [place] [address] 63433 BLOOD CULTUREon 06-18-2020 Bacteria identified Cx Nom (Unsp spec) NO GROWTH DAY 5 OF 5 Normal [facility] Comment on above: Order Comment: 2 Bot tles (1 Set - consists of 1 Aerobic (blue) bottle and 1 Anaerobic (purple) bottle) -1st Peripheral DrawFor syringe method draw:If able to obtain adequate sample (20 ml) inoculate anaerobic bottle firstIf inadequate sample obtained (less than 20 ml) inoculate aerobic bottle firstFor vacutainer method draw: Fill aerobic bottle first, then anaerobic Performed By: #### X M #### [facility] (DEFAULT) [address] [place] [address] 98273 CBC AND ELECTRONIC DIFFon Basophils (Bld) [#/Vol] 0.04 10*3/uL Normal 0.00-0.15 [facility] Comment on above: Performed By: #### L [id number] ####[facility] (DEFAULT)[address] [place] [address] Basophils/100 WBC (Bld) 0.6 % Normal O [facility] Comment on above: Performed By: #### L AB980 ####[facility] (DEFAULT)[address] [place] [address] DIFF STATUS Electronic Differential Normal [facility] Comment on above: Performed By: #### L [id number] ####[facility] (DEFAULT)[address] [place] [address] Eosinophils (Bld) [#/Vol] 0.44 10*3/uL High 0.00-0.42 [facility] Comment on above: Performed By: #### L AB980 ####[facility] (DEFAULT)[address] [place] [address] Eosinophils/100 WBC (Bld) 6.4 % Normal [facility] Comment on above: Performed By: #### L AB980 ####[facility] (DEFAULT)[address] [place] [address] Hematocrit (Bld) [Volume fraction] 30.3 % Low 34.9-44.3 [facility] Comment on above: Performed By: #### L [id number] ####[facility] (DEFAULT)[address] [facility] [place] [address] Hemoglobin (Bld) [Mass/Vol] 8.8 g/dL Low 11.4-15.2 [facility] Comment on above: Performed By: #### L AB980 ####[facility] (DEFAULT)[address] [place] [address] Immature Grans % 0.9 % Normal [facility] Comment on above: Performed By: #### L AB980 ####[facility] (DEFAULT)[address] [place] [address] Immature Grans Absolute 0.06 K/uL Normal <=0.09 [facility] Comment on above: Performed By: #### L AB980 ####[facility] (DEFAULT)[address] [place] [address] Lymphocytes (Bld) [#/Vol] 0.73 10*3/uL Low 1.16-3.51 [facility] Comment on above: Performed By: #### L AB980 ####[facility] (DEFAULT)[address] [place] [address] Lymphocytes/100 WBC (Bld) 10.6 % Normal [facility] Comment on above: Performed By: #### L [id number] ####[facility] (DEFAULT)[address] [place] [address] MCV (RBC) [Entitic vol] 82.6 fL Normal 79.6-97.7 [facility] Comment on above: Performed By: #### L [id number] ####[facility] (DEFAULT)[address] [place] [address] Mean Cell Hgb 24.0 pg Low 25.9-33.9 [facility] Comment on above: Performed By: #### L AB980 ####[facility] (DEFAULT)[address] [place] [address] Mean Cell Hgb Conc 29.0 g/dL Low 31.4-35.9 [facility] Comment on above: Performed By: #### L AB980 ####[facility] (DEFAULT)[address] [place] [address] Monocytes (Bld) [#/Vol] 0.75 10*3/uL Normal 0.22-0.87 [facility] Comment on above: Performed By: #### L AB980 ####[facility] (DEFAULT)[address] [place] [address] Monocytes/100 WBC (Bld) 10.9 % Normal [facility] Comment on above: Performed By: #### L [id number] ####[facility] (DEFAULT)[address] [place] [address] Nucleated RBC 0.3 /100 WBC High <=0.2 [facility] Comment on above: Performed By: #### L [id number] ####[facility] (DEFAULT)[address] [place] [address] Platelet mean volume (Bld) [Entitic vol] 11.1 fL Normal 8.5-12.2 [facility] Comment on above: Performed By: #### L [id number] ####[facility] (DEFAULT)[address] [place] [address] Platelets (Bld) [#/Vol] 212 10*3/uL Normal 150-393 [facility] Comment on above: Performed By: #### L [id number] ####[facility] (DEFAULT)[address] [place] [address] RBC (Bld) [#/Vol] 3.67 10*6/uL Low 3.91-5.04 [facility] Comment on above: Performed By: #### L [id number] ####[facility] (DEFAULT)[address] [place] [address] RBC Distribution 16.6 % High 10.8-14.9 [facility] Comment on above: Performed By: #### L AB980 ####[facility] (DEFAULT)[address] [place] [address] Segs + Bands Auto 70.6 % Normal [facility] Comment on above: Performed By: #### L [id number] ####[facility] (DEFAULT)[address] [place] [address] Segs + Bands,Absolute Auto 4.86 K/uL Normal 1.64-7.28 [facility] Comment on above: Performed By: #### L [id number] ####[facility] (DEFAULT)[address] [place] [address] WBC (Bld) [#/Vol] 6.88 10*3/uL Normal 3.99-11.19 [facility] Comment on above: Performed By: #### L [id number] ####[facility] (DEFAULT)[address] [place] [address] HEPATIC FUNCTION PANELon Albumin [Mass/Vol] 3.2 g/dL Low 3.5-5.0 [facility] Comment on above: Performed By: #### X M #### [facility] (DEFAULT) [address] [place] [address] ALP [Catalytic activity/Vol] 74 U/L Normal 32-126 [facility] Comment on above: Performed By: #### X M #### [facility] (DEFAULT) [address] [place] [address]674 ALT [Catalytic activity/Vol] 13 U/L Normal 9-48 [facility] Comment on above: Performed By: #### X M #### [facility] (DEFAULT) [address] [place] [address] AST [Catalytic activity/Vol] 21 U/L Normal 14-40 [facility] Comment on above: Performed By: #### X M #### [facility] (DEFAULT) [address] [place] [address] Bilirubin [Mass/Vol] 0.4 mg/dL Normal <1.5 [facility] Comment on above: Performed By: #### X M #### [facility] (DEFAULT) [address] [place] [address] Bilirubin.indirect [Mass/Vol] 0.1 mg/dL Normal <0.3 [facility] Comment on above: Performed By: #### X M #### [facility] (DEFAULT) [address] [place] [address] Protein [Mass/Vol] 5.5 g/dL Low 6.4-8.3 [facility] Comment on above: Performed By: #### X M #### [facility] (DEFAULT) [address] [address] IMMUNOCOMPROMISED RESPIRATOR Y PANELon 06-18-2020 Adenovirus - Pcr Not detected Normal Not Detected [facility] Comment on above: Order Comment: Viral transport media (red screw top with red liquid media) or respiratory fluids or tissue.Results should be used in conjunction with other clinical and laboratory findings. This result does not rule out co-infections with pathogens that are not screened for by the Respiratory Panel(RP). This RP assay was performed using a Film Array multiplex nucleic acid assay.This panel does NOT detect the 2019 Novel Coronavirus (2019-nCoV) Performed By: #### X M #### [facility] (DEFAULT) [address] [address] Bordetella Parapertussis Not detected Normal Not Detected [facility] Comment on above: Order Comment: Viral transport media (red screw top with red liquid media) or respiratory fluids or tissue.Results should be used in conjunction with other clinical and laboratory findings. This result does not rule out co-infections with pathogens that are not screened for by the Respiratory Panel(RP). This RP assay was performed using a Film Array multiplex nucleic acid assay.This panel does NOT detect the 2019 Novel Coronavirus (2019-nCoV) Performed By: #### X M #### [facility] (DEFAULT) [address] [address] Bordetella Pertussis Not detected Normal Not Detected [facility] Comment on above: Order Comment: Viral transport media (red screw top with red liquid media) or respiratory fluids or tissue.Results should be used in conjunction with other clinical and laboratory findings. This result does not rule out co-infections with pathogens that are not screened for by the Respiratory Panel(RP). This RP assay was performed using a Film Array multiplex nucleic acid assay.This panel does NOT detect the 2019 Novel Coronavirus (2019-nCoV) Performed By: #### X M #### [facility] (DEFAULT) [address] [address] Chlamydia Pneumoniae Not detected Normal Not Detected [facility] Comment on above: Order Comment: Viral transport media (red screw top with red liquid media) or respiratory fluids or tissue.Results should be used in conjunction with other clinical and laboratory findings. This result does not rule out co-infections with pathogens that are not screened for by the Respiratory Panel(RP). This RP assay was performed using a Film Array multiplex nucleic acid assay.This panel does NOT detect the 2019 Novel Coronavirus (2019-nCoV) Performed By: #### X M #### [facility] (DEFAULT) [address] [address] Coronavirus 229E Not detected Normal Not Detected [facility] Comment on above: Order Comment: Viral transport media (red screw top with red liquid media) or respiratory fluids or tissue.Results should be used in conjunction with other clinical and laboratory findings. This result does not rule out co-infections with pathogens that are not screened for by the Respiratory Panel(RP). This RP assay was performed using a Film Array multiplex nucleic acid assay.This panel does NOT detect the 2019 Novel Coronavirus (2019-nCoV) Performed By: #### X M #### [facility] (DEFAULT) [address] [address] Coronavirus Hku1 Not detected Normal Not Detected [facility] Comment on above: Order Comment: Viral transport media (red screw top with red liquid media) or respiratory fluids or tissue.Results should be used in conjunction with other clinical and laboratory findings. This result does not rule out co-infections with pathogens that are not screened for by the Respiratory Panel(RP). This RP assay was performed using a Film Array multiplex nucleic acid assay.This panel does NOT detect the 2019 Novel Coronavirus (2019-nCoV) Performed By: #### X M #### [facility] (DEFAULT) [address] [address] Coronavirus Nl63 Not detected Normal Not Detected [facility] Comment on above: Order Comment: Viral transport media (red screw top with red liquid media) or respiratory fluids or tissue.Results should be used in conjunction with other clinical and laboratory findings. This result does not rule out co-infections with pathogens that are not screened for by the Respiratory Panel(RP). This RP assay was performed using a Film Array multiplex nucleic acid assay.This panel does NOT detect the 2019 Novel Coronavirus (2019-nCoV) Performed By: #### X M #### [facility] (DEFAULT) [address] [address] Coronavirus Oc43 Not detected Normal Not Detected [facility] Comment on above: Order Comment: Viral transport media (red screw top with red liquid media) or respiratory fluids or tissue.Results should be used in conjunction with other clinical and laboratory findings. This result does not rule out co-infections with pathogens that are not screened for by the Respiratory Panel(RP). This RP assay was performed using a Film Array multiplex nucleic acid assay.This panel does NOT detect the 2019 Novel Coronavirus (2019-nCoV) Performed By: #### X M #### [facility] (DEFAULT) [address] [address] Influenza A - Pcr Not detected Normal Not Detected [facility] Comment on above: Order Comment: Viral transport media (red screw top with red liquid media) or respiratory fluids or tissue.Results should be used in conjunction with other clinical and laboratory findings. This result does not rule out co-infections with pathogens that are not screened for by the Respiratory Panel(RP). This RP assay was performed using a Film Array multiplex nucleic acid assay.This panel does NOT detect the 2019 Novel Coronavirus (2019-nCoV) Performed By: #### X M #### [facility] (DEFAULT) [address] [address] Influenza B - Pcr Not detected Normal Not Detected [facility] Comment on above: Order Comment: Viral transport media (red screw top with red liquid media) or respiratory fluids or tissue.Results should be used in conjunction with other clinical and laboratory findings. This result does not rule out co-infections with pathogens that are not screened for by the Respiratory Panel(RP). This RP assay was performed using a Film Array multiplex nucleic acid assay.This panel does NOT detect the 2019 Novel Coronavirus (2019-nCoV) Performed By: #### X M #### [facility] (DEFAULT) [address] [address] Metapneumovirus - Pcr Not detected Normal Not Detected [facility] Comment on above: Order Comment: Viral transport media (red screw top with red liquid media) or respiratory fluids or tissue.Results should be used in conjunction with other clinical and laboratory findings. This result does not rule out co-infections with pathogens that are not screened for by the Respiratory Panel(RP). This RP assay was performed using a Film Array multiplex nucleic acid assay.This panel does NOT detect the 2019 Novel Coronavirus (2019-nCoV) Performed By: #### X M #### [facility] (DEFAULT) [address] [address] Mycoplasma Pneumoniae Not detected Normal Not Detected [facility] Comment on above: Order Comment: Viral transport media (red screw top with red liquid media) or respiratory fluids or tissue.Results should be used in conjunction with other clinical and laboratory findings. This result does not rule out co-infections with pathogens that are not screened for by the Respiratory Panel(RP). This RP assay was performed using a Film Array multiplex nucleic acid assay.This panel does NOT detect the 2019 Novel Coronavirus (2019-nCoV) Performed By: #### X M #### [facility] (DEFAULT) [address] [place] [address] Parainfluenza 1 - Pcr Not detected Normal Not Detected [facility] Comment on above: Order Comment: Viral transport media (red screw top with red liquid media) or respiratory fluids or tissue.Results should be used in conjunction with other clinical and laboratory findings. This result does not rule out co-infections with pathogens that are not screened for by the Respiratory Panel(RP). This RP assay was performed using a Film Array multiplex nucleic acid assay.This panel does NOT detect the 2019 Novel Coronavirus (2019-nCoV) Performed By: #### X M #### [facility] (DEFAULT) [address] [address] Parainfluenza 2 - Pcr Not detected Normal Not Detected [facility] Comment on above: Order Comment: Viral transport media (red screw top with red liquid media) or respiratory fluids or tissue.Results should be used in conjunction with other clinical and laboratory findings. This result does not rule out co-infections with pathogens that are not screened for by the Respiratory Panel(RP). This RP assay was performed using a Film Array multiplex nucleic acid assay.This panel does NOT detect the 2019 Novel Coronavirus (2019-nCoV) Performed By: #### X M #### [facility] (DEFAULT) [address] [address] Parainfluenza 3 - Pcr Not detected Normal Not Detected [facility] Comment on above: Order Comment: Viral transport media (red screw top with red liquid media) or respiratory fluids or tissue.Results should be used in conjunction with other clinical and laboratory findings. This result does not rule out co-infections with pathogens that are not screened for by the Respiratory Panel(RP). This RP assay was performed using a Film Array multiplex nucleic acid assay.This panel does NOT detect the 2019 Novel Coronavirus (2019-nCoV) Performed By: #### X M #### [facility] (DEFAULT) [address] [address] Parainfluenza 4 - Pcr Not detected Normal Not Detected [facility] Comment on above: Order Comment: Viral transport media (red screw top with red liquid media) or respiratory fluids or tissue.Results should be used in conjunction with other clinical and laboratory findings. This result does not rule out co-infections with pathogens that are not screened for by the Respiratory Panel(RP). This RP assay was performed using a Film Array multiplex nucleic acid assay.This panel does NOT detect the 2019 Novel Coronavirus (2019-nCoV) Performed By: #### X M #### [facility] (DEFAULT) [address] [address] Rhinovirus/Enterovirus - PCR Not detected Normal Not Detected [facility] Comment on above: Order Comment: Viral transport media (red screw top with red liquid media) or respiratory fluids or tissue.Results should be used in conjunction with other clinical and laboratory findings. This result does not rule out co-infections with pathogens that are not screened for by the Respiratory Panel(RP). This RP assay was performed using a Film Array multiplex nucleic acid assay.This panel does NOT detect the 2019 Novel Coronavirus (2019-nCoV) Performed By: #### X M #### [facility] (DEFAULT) [address] [place] [address] Rsv - Pcr Not detected Normal Not Detected [facility] Comment on above: Order Comment: Viral transport media (red screw top with red liquid media) or respiratory fluids or tissue.Results should be used in conjunction with other clinical and laboratory findings. This result does not rule out co-infections with pathogens that are not screened for by the Respiratory Panel(RP). This RP assay was performed using a Film Array multiplex nucleic acid assay.This panel does NOT detect the 2019 Novel Coronavirus (2019-nCoV) Performed By: #### X M #### [facility] (DEFAULT) [address] [place] [address] LEGIONELLA URINARY AGon 06-09 Legionella Urinary Antigen Negative Normal Negative [facility] Comment on above: Performed By: #### T YPEC #### [facility] (DEFAULT) [address] [place] [address] LIPASEon 06-18-2020 Lipase [Catalytic activity/Vol] 19 U/L Normal 11-82 [facility] Comment on above: Performed By: #### X M #### [facility] (DEFAULT) [address] [address] MAGNESIUMon 06-18-2020 Magnesium [Mass/Vol] 1.7 mg/dL Normal 1.6-2.6 [facility] Comment on above: Performed By: #### X M #### [facility] (DEFAULT) [address] [place] [address] NOVEL CORONAVIRUS PCRon 06-09 SARS-CoV-2 (COVID-19) RNA KARY+probe Ql (Unsp spec) Not detected Normal NOT DETECTED [facility] Comment on above: Order Comment: Viral transport media or BAL specimen - Collection must be done while wearing N-95 mask, eye protection, gown and gloves. Please label ALL specimens as 2019-nCoV rule out and deliver by hand.This test was performed using real time PCR and has been approved for the qualitative detection of SARS-CoV-2 nucleic acid. The test has been authorized by the FDA under an emergency use authorization for use by authorized laboratories. Result Comment: Nega tive results do not preclude SARS-CoV-2 infection and should not be used as the sole basis for treatment or other patient management decisions. Optimum specimen types and timing for peak viral levels during infections caused by SARS-CoV-2 has not been determined. The possibility of a false negative result should especially be considered if the patient's recent exposures or clinical presentation suggest that SARS-CoV-2 infection is probable, and diagnostic tests for other causes of illness (e.g., other respiratory illness) are negative. Collection of a new specimen and re-testing may be necessary if the patient is critically ill or clinically deteriorating. Performed By: #### T YPEC #### [facility] (DEFAULT) [address] [place] [address] PHOSPHATE, INORGANICon 06-18 Phosphorous 2.5 mg/dL Normal 2.2-4.6 [facility] Comment on above: Performed By: #### X M #### [facility] (DEFAULT) [address] [place] [address] PT,INR,PTTon 06-18-2020 aPTT Coag (Bld) [Time] 30.5 s Normal 24.0-34.3 [facility] [place] Comment on above: Performed By: #### C A, LDO, CHM7, MGO, BILI, ASTO #### [facility] (DEFAULT) [address] [place] [address] INR Coag (PPP) [Relative time] 1.1 {INR} Normal 0.9-1.1 [facility] Comment on above: Performed By: #### C A, LDO, CHM7, MGO, BILI, ASTO #### [facility] (DEFAULT) [address] [place] [address] PT Coag (PPP) [Time] 14.4 s High 11.9-14.2 [facility] Comment on above: Performed By: #### C A, LDO, CHM7, MGO, BILI, ASTO #### [facility] (DEFAULT) [address] [place] [address] STREP PNEUMONIAE ANTIGEN, UR INEon 06-18-2020 Strep Pneumoniae Antigen,Urine Negative Normal Negative [facility] Comment on above: Performed By: #### T YPEC #### [facility] (DEFAULT) [address] [place] [address] URINALYSISon 06-18-2020 Appearance (U) Cloudy Abnormal Clear [facility] Comment on above: Performed By: #### C A, LDO, CHM7, MGO, BILI, ASTO #### [facility] (DEFAULT) [address] [place] [address] Bacteria TRACE Abnormal ABSENT [facility] Comment on above: Performed By: #### C A, LDO, CHM7, MGO, BILI, ASTO #### [facility] (DEFAULT) [address] [place] [address] Blood Urine Trace Abnormal Negative [facility] Comment on above: Performed By: #### C A, LDO, CHM7, MGO, BILI, ASTO #### [facility] (DEFAULT) [address] [place] [address] Color (U) Yellow Normal Yellow [facility] Comment on above: Performed By: #### C A, LDO, CHM7, MGO, BILI, ASTO #### [facility] (DEFAULT) [address] [place] [address] Glucose Ql (U) Negative Normal Negative [facility] Comment on above: Performed By: #### C A, LDO, CHM7, MGO, BILI, ASTO #### [facility] (DEFAULT) [address] [place] [address] Ketones Ql (U) Negative Normal Negative [facility] Comment on above: Performed By: #### C A, LDO, CHM7, MGO, BILI, ASTO #### [facility] (DEFAULT) [address] [place] [address] Leukocyte esterase Test strip Ql (U) Moderate Abnormal Negative [facility] Comment on above: Performed By: #### C A, LDO, CHM7, MGO, BILI, ASTO #### [facility] (DEFAULT) [address] [place] [address] Nitrites Urine Negative Normal Negative [facility] Comment on above: Performed By: #### C A, LDO, CHM7, MGO, BILI, ASTO #### [facility] (DEFAULT) [address] [place] [address] pH (U) 6.5 [pH] Normal 5.0-7.0 [facility] Comment on above: Performed By: #### C A, LDO, CHM7, MGO, BILI, ASTO #### [facility] (DEFAULT) [address] [place] [address] Protein Urine 30 mg/dL Abnormal Negative [facility] Comment on above: Performed By: #### C A, LDO, CHM7, MGO, BILI, ASTO #### [facility] (DEFAULT) [address] [place] [address] RBC Urine 0-2 Normal 0-2 [facility] Comment on above: Performed By: #### C A, LDO, CHM7, MGO, BILI, ASTO #### [facility] (DEFAULT) [address] [place] [address] Specific [place] Urine 1.015 Normal >1.00 1-<1.0 35 [facility] Comment on above: Performed By: #### C A, LDO, CHM7, MGO, BILI, ASTO #### [facility] (DEFAULT) [address] [place] [address] Squamous/Epithelial Cells 2-5/hpf = 2+ Normal 1/hpf = 1+, 2-5/hpf = 2+, 0/hpf = 0+, ABSENT [facility] Comment on above: Performed By: #### C A, LDO, CHM7, MGO, BILI, ASTO #### [facility] (DEFAULT) [address] [place] [address] Urobilinogen Urine 0.2 E.U./dL Normal 0.2-1.0 [facility] Comment on above: Performed By: #### C A, LDO, CHM7, MGO, BILI, ASTO #### [facility] (DEFAULT) [address] [place] [address] WBC LM.HPF (Urine sed) [#/Area] /[HPF] Abnormal 0-5 [facility] Comment on above: Performed By: #### C A, LDO, CHM7, MGO, BILI, ASTO #### [facility] (DEFAULT) [address] [place] [address] URINE CULTUREon 06-18-2020 Bacteria identified Cx Nom (U) Normal [facility] Comment on above: Order Comment: Momin top vacutainer. Urine must be to the fill line to process (4mls). If minimum volume, send urine in a yellow top vacutainer tube.Multiple bacterial morphotypes present. Suggest appropriate recollection if clinically indicated. Result Comment: Grow th [id number] MICROBESMIXED MICROBES <100,000 CFU/mL Mixed microbes Performed By: #### X M #### [facility] (DEFAULT) [address] [place] [address] XR CHEST AP PORTABLEon 06-18 XR CHEST AP PORTABLE EXAM: XR CHEST AP PORTABLE, 06/18/2020 13:38 PM COMPARISON: April 30, 2020 CLINICAL INDICATIONS: fever on chemo RELEVANT CLINICAL HISTORY: FINDINGS: (Compromised by rotation to the right) Life Support Devices: Stable Chest Wall: Stable Mariaelena: Normal Mediastinum: Normal Pleural Spaces: No definite pleural effusion. No definite pneumothorax. Stable elevated right hemidiaphragm. Lungs: No new consolidation. Cardiac Silhouette: Normal, without overall or specific chamber enlargement, or abnormal calcification Thoracic Aorta: Normal Pulmonary Vessels: Normal, without PVH IMPRESSION: No acute cardiopulmonary disease. Normal [facility] Cult,Bloodon 05-01-2020 Cult,Blood Specimen Description .BLOOD Special Requests RT HAND 2ML Culture NO GROWTH 6 DAYS Report Status FINAL 05/01/2020 Normal [facility] Comment on above: Performed By: #### T SHX, CBC, LIVP, BMP, FT4 #### [facility] [place], [place] [phone] Field Sales Trainer: Yosi Espinal MD Cult,Aerobe/Anaerobeon 04-30 Cult,Aerobe/Anaerobe Specimen Descriptio n .TISSUE RIGHT ISCHIUM CORE BIOPSY Special Requests NOT REPORTED Direct Exam NO NEUTROPHILS SEEN NO BACTERIA SEEN Culture NO GROWTH 5 DAYS Report Status FINAL 04/30/2020 Normal [facility] Comment on above: Performed By: #### T SHX, CBC, LIVP, BMP, FT4 #### [facility] [place], [place] [phone] Field Sales Trainer: Yosi Espinal MD BASIC METABOLIC PANELon 04-09 Anion gap [Moles/Vol] 9 mmol/L 9 - 17 mmol/L [place] Bun/Cre Ratio NOT REPORTED [place] Calcium [Mass/Vol] 9.2 mg/dL 8.6 - 10. 4 mg/dL [place] Chloride [Moles/Vol] 107 mmol/L 98 - 10 7 mmol/L [place] CO2 [Moles/Vol] 22 mmol/L 20 - 31 mmol/L [place] Creatinine [Mass/Vol] 0.58 mg/dL 0.5 - 0.9 mg/dL [place] GFR >60 >60 mL/min [place] GFR Non- >60 >60 mL/min [place] GFR/1.73 sq M predicted among non-blacks MDRD (S/P/Bld) [Vol rate/Area] NOT REPORTED [place] GFR/1.73 sq M predicted among non-blacks MDRD (S/P/Bld) [Vol rate/Area] [place] Comment on above: Average GFR for 30-3 9 years old: 107 mL/min/1.73sq m Chronic Kidney Disease: <60 mL/min/1.73sq m Kidney failure: <15 mL/min/1.73sq m eGFR calculated using average adult body mass. Additional eGFR calculator available at: http://www.[employer]/multiple_crcl_2012.htm Glucose [Mass/Vol] 90 mg/dL 70 - 99 mg/dL [place] Potassium [Moles/Vol] 4.8 mmol/L 3.7 - 5.3 mmol/L [place] Sodium [Moles/Vol] 138 mmol/L 135 - 144 mmol/L [place] Urea nitrogen [Mass/Vol] 11 mg/dL 6 - 20 mg/dL [place] Basic Metabolic Profon 04-29 (cont.) Normal [facility] Comment on above: Result Comment: Aver age GFR for 30-39 years old: 107 mL/min/1.73sq m Chronic Kidney Disease: <60 mL/min/1.73sq m Kidney failure: <15 mL/min/1.73sq m eGFR calculated using average adult body mass. Additional eGFR calculator available at: http://www.[employer]/multiple_crcl_2012.htm Performed By: #### B C #### [facility] [address] [place] [address] [phone] Field Sales Trainer: Yosi Espinal MD Anion gap [Moles/Vol] 9 mmol/L Normal 9-17 [facility] Comment on above: Performed By: #### B C #### [facility] [address] [place] [address] [phone] Field Sales Trainer: Yosi Espinal MD Calcium [Mass/Vol] 9.2 mg/dL Normal 8.6-10.4 [facility] Comment on above: Performed By: #### B C #### [facility] [address] [place] [address] [phone] Field Sales Trainer: Yosi Espinal MD Chloride [Moles/Vol] 107 mmol/L Normal 98-107 [facility] Comment on above: Performed By: #### B C #### [address] [address] Field Sales Trainer: Yosi Espinal MD CO2 [Moles/Vol] 22 mmol/L Normal 20-31 [facility] Comment on above: Performed By: #### B C #### [address] [address] Field Sales Trainer: Yosi Espinal MD Creatinine [Mass/Vol] 0.58 mg/dL Normal 0.50-0.90 [facility] Comment on above: Performed By: #### B C #### [address] [address] Field Sales Trainer: Yosi Espinal MD GFR, Amer >60 Normal >60 [facility] Comment on above: Performed By: #### B C #### [address] [address] Field Sales Trainer: Yosi Espinal MD GFR,non Amer >60 Normal >60 [facility] Comment on above: Performed By: #### B C #### [address] [address] Field Sales Trainer: Yosi Espinal MD Glucose [Mass/Vol] 90 mg/dL Normal 70-99 [facility] Comment on above: Performed By: #### B C #### [address] [address] Field Sales Trainer: Yosi Espinal MD Potassium [Moles/Vol] 4.8 mmol/L Normal 3.7-5.3 [facility] Comment on above: Performed By: #### B C #### [address] [address] Field Sales Trainer: Yosi Espinal MD Sodium [Moles/Vol] 138 mmol/L Normal 135-144 [facility] Comment on above: Performed By: #### B C #### [facility] [address] [place] [address] Field Sales Trainer: Yosi Espinal MD Urea nitrogen [Mass/Vol] 11 mg/dL Normal 6-20 [facility] Comment on above: Performed By: #### B C #### [facility] [address] [place] [address] Field Sales Trainer: Yosi Espinal MD BUN/CRE Ratio NOT REPORTED Normal - [facility] Comment on above: Performed By: #### B C #### [address] [address] Field Sales Trainer: Yosi Espinal MD Staging: NOT REPORTED Normal [facility] Comment on above: Performed By: #### B C #### [facility] [place] [address] Field Sales Trainer: Yosi Espinal MD POC Glucose Fingerstickon Glucose [Mass/Vol] 108 mg/dL High 65 - 105 mg/dL [place] Interpretation and review of laboratory results Abnormal [place] Glucose [Mass/Vol] 111 mg/dL High 65 - 105 mg/dL [place] Interpretation and review of laboratory results Abnormal [place] Glucose [Mass/Vol] 136 mg/dL High 65 - 105 mg/dL [place] Interpretation and review of laboratory results Abnormal [place] Glucose [Mass/Vol] 90 mg/dL 65 - 105 mg/dL [place] BASIC METABOLIC PANELon - Anion gap [Moles/Vol] 7 mmol/L Low 9 - 17 mmol/L [place] Bun/Cre Ratio NOT REPORTED [place] Calcium [Mass/Vol] 9.0 mg/dL 8.6 - 10. 4 mg/dL [place] Chloride [Moles/Vol] 108 mmol/L High 98 - 10 7 mmol/L [place] CO2 [Moles/Vol] 23 mmol/L 20 - 31 mmol/L [place] Creatinine [Mass/Vol] 0.63 mg/dL 0.5 - 0.9 mg/dL [place] GFR >60 >60 mL/min [place] GFR Non- >60 >60 mL/min [place] GFR/1.73 sq M predicted among non-blacks MDRD (S/P/Bld) [Vol rate/Area] [place] Comment on above: Average GFR for 30-3 9 years old: 107 mL/min/1.73sq m Chronic Kidney Disease: <60 mL/min/1.73sq m Kidney failure: <15 mL/min/1.73sq m eGFR calculated using average adult body mass. Additional eGFR calculator available at: http://www.[employer]/multiple_crcl_2012.htm GFR/1.73 sq M predicted among non-blacks MDRD (S/P/Bld) [Vol rate/Area] NOT REPORTED [place] Glucose [Mass/Vol] 90 mg/dL 70 - 99 mg/dL [place] Interpretation and review of laboratory results Abnormal [place] Potassium [Moles/Vol] 4.6 mmol/L 3.7 - 5.3 mmol/L [place] Sodium [Moles/Vol] 138 mmol/L 135 - 144 mmol/L [place] Urea nitrogen [Mass/Vol] 13 mg/dL 6 - 20 mg/dL [place] Basic Metabolic Profon 04-28 (cont.) Normal [facility] Comment on above: Result Comment: Aver age GFR for 30-39 years old: 107 mL/min/1.73sq m Chronic Kidney Disease: <60 mL/min/1.73sq m Kidney failure: <15 mL/min/1.73sq m eGFR calculated using average adult body mass. Additional eGFR calculator available at: http://www.[employer].com/multiple_crcl_2012.htm Performed By: #### T SHX, CBC, LIVP, BMP, FT4 #### [facility] [address] [place] [phone] Field Sales Trainer: Yosi Espinal MD Anion gap [Moles/Vol] 7 mmol/L Low 9-17 [facility] Comment on above: Performed By: #### T SHX, CBC, LIVP, BMP, FT4 #### [facility] [address] [place] [phone] Field Sales Trainer: Yosi Espinal MD Calcium [Mass/Vol] 9.0 mg/dL Normal 8.6-10.4 [facility] Comment on above: Performed By: #### T SHX, CBC, LIVP, BMP, FT4 #### [facility] [address] [place] [address] Field Sales Trainer: Yosi Espinal MD Chloride [Moles/Vol] 108 mmol/L High 98-107 [facility] Comment on above: Performed By: #### T SHX, CBC, LIVP, BMP, FT4 #### [facility] [address] [place] [address] Field Sales Trainer: Yosi Espinal MD CO2 [Moles/Vol] 23 mmol/L Normal 20-31 [facility] Comment on above: Performed By: #### T SHX, CBC, LIVP, BMP, FT4 #### [facility] [address] [place] [address] Field Sales Trainer: Yosi Espinal MD Creatinine [Mass/Vol] 0.63 mg/dL Normal 0.50-0.90 [facility] Comment on above: Performed By: #### T SHX, CBC, LIVP, BMP, FT4 #### [facility] [address] [place] [address] Field Sales Trainer: Yosi Espinal MD GFR, Amer >60 Normal >60 [facility] Comment on above: Performed By: #### T SHX, CBC, LIVP, BMP, FT4 #### [facility] [address] [place] [address] Field Sales Trainer: Yosi Espinal MD GFR,non Amer >60 Normal >60 [facility] Comment on above: Performed By: #### T SHX, CBC, LIVP, BMP, FT4 #### [facility] [address] [place] [address] Field Sales Trainer: Yosi Espinal MD Glucose [Mass/Vol] 90 mg/dL Normal 70-99 [facility] Comment on above: Performed By: #### T SHX, CBC, LIVP, BMP, FT4 #### [facility] [address] [place] [address] Field Sales Trainer: Yosi Espinal MD Potassium [Moles/Vol] 4.6 mmol/L Normal 3.7-5.3 [facility] Comment on above: Performed By: #### T SHX, CBC, LIVP, BMP, FT4 #### [facility] [address] [place] [address] Field Sales Trainer: Yosi Espinal MD Sodium [Moles/Vol] 138 mmol/L Normal 135-144 [facility] Comment on above: Performed By: #### T SHX, CBC, LIVP, BMP, FT4 #### [facility] [address] [place] [address] Field Sales Trainer: Yosi Espinal MD Urea nitrogen [Mass/Vol] 13 mg/dL Normal 6-20 [facility] Comment on above: Performed By: #### T SHX, CBC, LIVP, BMP, FT4 #### [facility] [address] [place] [address] Field Sales Trainer: Yosi Espinal MD BUN/CRE Ratio NOT REPORTED Normal - [facility] Comment on above: Performed By: #### T SHX, CBC, LIVP, BMP, FT4 #### [facility] [address] [place] [address] Field Sales Trainer: Yosi Espinal MD Staging: NOT REPORTED Normal [facility] Comment on above: Performed By: #### T SHX, CBC, LIVP, BMP, FT4 #### [facility] [address] [place], [place] [phone] Field Sales Trainer: Yosi Espinal MD ECHO Complete 2D W Doppler W Coloron 04-28-2020 [place], [facility] Incoming Cardio Results From [facility]/Ge - 04/28/2020 6:21 PM EST [facility] Transthoracic Echocardiography Report (TTE) Patient Name ENEDELIA Date of Study 04/28/2020 LISA A Date of 1980 Gender Female Age 39 year(s) Race Other Room Number 0428 Height: 69 inch, 175.26 cm Corporate ID [id number] Weight: 415 pounds, 188.2 kg # Patient Acct [id number] BSA: 2.82 m^2 BMI: 61.29 kg/m^2 # MR # [id number] [employer] Worker Wendy Lowery Interpreting Physician Aidan Peoples Fellow Referring Nurse Practitioner Interpreting Referring Physician Elpidio Herrera Fellow Additional Comments Technically difficult study, patient morbidly obese. Type of Study TTE procedure:2D Echocardiogram, M-Mode, Doppler, Color Doppler. Procedure Date Date: 04/28/2020 Start: 08:47 AM Study Location: [facility] Technical Quality: Adequate visualization Indications:Rule out vegetation. History / Tech. Comments: Procedure explained to patient. HTN Patient Status: Inpatient Height: 69 inches Weight: 415.01 pounds BSA: 2.82 m^2 BMI: 61.29 kg/m^2 CONCLUSIONS Summary Left ventricle is normal in size, mild left ventricular hypertrophy, global left ventricular systolic function is low normal, calculated ejection fraction is 50%. Left atrium is mildly dilated. Thickened mitral valve leaflets. At least mild mitral regurgitation. Mild tricuspid regurgitation. Estimated right ventricular systolic pressure is 33 mmHg. Trivial pulmonic insufficiency. No obvious vegetation on this study, consider MIRYAM when indicated. Signature --- - --- - --- - --- - FINDINGS Left Atrium Left atrium is mildly dilated. Inter-atrial septum is intact with no evidence for an atrial septal defect. Left Ventricle Left ventricle is normal in size, mild left ventricular hypertrophy, global left ventricular systolic function is low normal, calculated ejection fraction is 50%. Right Atrium Right atrium is normal in size. Right Ventricle Normal right ventricular size and function. Mitral Valve Normal mitral valve structure. Thickened mitral valve leaflets. No mitral valve vegetations seen. At least mild mitral regurgitation. Aortic Valve Aortic valve is trileaflet. No obvious vegetation. No evidence of aortic insufficiency or stenosis. Tricuspid Valve Normal tricuspid valve leaflets. No obvious vegetation. Mild tricuspid regurgitation. Estimated right ventricular systolic pressure is 33 mmHg. Pulmonic Valve Pulmonic valve not well visualized but Doppler velocities are normal. No obvious vegetation. Trivial pulmonic insufficiency. Pericardial Effusion No significant pericardial effusion is seen. Miscellaneous Normal aortic root dimension. E/E' average = 13.2. IVC not well visualized. M-mode / 2D Measurements & Calculations: LVIDd:5.3 cm(3.7 - 5.6 cm) Diastolic Volume:137 ml IVSd:1.1 cm(0.6 - 1.1 cm) Systolic Volume:67.8 ml LVPWd:1.1 cm(0.6 - 1.1 cm) Aortic Root:3.1 cm(2.0 - 3.7 cm) LA Dimension: 4.3 cm(1.9 - 4.0 cm) Calculated LVEF (%): 50.51 % LA volume/Index: 101 ml /36m^2 LVOT:2.1 cm RVDd:3.4 cm Mitral: Aortic Valve Area (P1/2-Time): 3.14 cm^2 Peak Velocity: 2.28 m/s Peak E-Wave: 1.42 m/s Mean Velocity: 1.53 m/s Peak A-Wave: 1.08 m/s Peak Gradient: 20.79 mmHg E/A Ratio: 1.31 Mean Gradient: 11 mmHg Peak Gradient: 8.07 mmHg Mean Gradient: 6 mmHg Deceleration Time: 254 msec Area (continuity): 2.69 cm^2 P1/2t: 70 msec AV VTI: 48.8 cm Area (continuity): 2.66 cm^2 Mean Velocity: 1.16 m/s Tricuspid: Pulmonic: Estimated RVSP: 33 mmHg Peak Velocity: 1.55 m/s Peak TR Velocity: 2.68 m/s Peak Gradient: 9.61 mmHg Peak TR Gradient: 28.7296 mmHg Diastology / Tissue Doppler Septal Wall E' velocity:0.10 m/s Septal Wall E/E':14.7 Lateral Wall E' velocity:0.12 m/s Lateral Wall E/E':11.7 [facility] Transthoracic Echocardiography Report (TTE) Patient Name ENEDELIA Date of Study 04/28/2020 LISA House Date of 1980 Gender Female Age 39 year(s) Race Other Room Number 0428 Height: 69 inch, 175.26 cm Corporate ID [id number] Weight: 415 pounds, 188.2 kg # Patient Acct [id number] BSA: 2.82 m^2 BMI: 61.29 kg/m^2 # MR # [id number] [employer] Worker Wendy Lowery Interpreting Physician Aidan Peoples Fellow Referring Nurse Practitioner Interpreting Referring Physician Elpidio Herrera Fellow Additional Comments Technically difficult study, patient morbidly obese. Type of Study TTE procedure:2D Echocardiogram, M-Mode, Doppler, Color Doppler. Procedure Date Date: 04/28/2020 Start: 08:47 AM Study Location: [facility] Technical Quality: Adequate visualization Indications:Rule out vegetation. History / Tech. Comments: Procedure explained to patient. HTN Patient Status: Inpatient Height: 69 inches Weight: 415.01 pounds BSA: 2.82 m^2 BMI: 61.29 kg/m^2 CONCLUSIONS Summary Left ventricle is normal in size, mild left ventricular hypertrophy, global left ventricular systolic function is low normal, calculated ejection fraction is 50%. Left atrium is mildly dilated. Thickened mitral valve leaflets. At least mild mitral regurgitation. Mild tricuspid regurgitation. Estimated right ventricular systolic pressure is 33 mmHg. Trivial pulmonic insufficiency. No obvious vegetation on this study, consider MIRYAM when indicated. Signature ---- ---- ---- ---- FINDINGS Left Atrium Left atrium is mildly dilated. Inter-atrial septum is intact with no evidence for an atrial septal defect. Left Ventricle Left ventricle is normal in size, mild left ventricular hypertrophy, global left ventricular systolic function is low normal, calculated ejection fraction is 50%. Right Atrium Right atrium is normal in size. Right Ventricle Normal right ventricular size and function. Mitral Valve Normal mitral valve structure. Thickened mitral valve leaflets. No mitral valve vegetations seen. At least mild mitral regurgitation. Aortic Valve Aortic valve is trileaflet. No obvious vegetation. No evidence of aortic insufficiency or stenosis. Tricuspid Valve Normal tricuspid valve leaflets. No obvious vegetation. Mild tricuspid regurgitation. Estimated right ventricular systolic pressure is 33 mmHg. Pulmonic Valve Pulmonic valve not well visualized but Doppler velocities are normal. No obvious vegetation. Trivial pulmonic insufficiency. Pericardial Effusion No significant pericardial effusion is seen. Miscellaneous Normal aortic root dimension. E/E' average = 13.2. IVC not well visualized. M-mode / 2D Measurements & Calculations: LVIDd:5.3 cm(3.7 - 5.6 cm) Diastolic Volume:137 ml IVSd:1.1 cm(0.6 - 1.1 cm) Systolic Volume:67.8 ml LVPWd:1.1 cm(0.6 - 1.1 cm) Aortic Root:3.1 cm(2.0 - 3.7 cm) LA Dimension: 4.3 cm(1.9 - 4.0 cm) Calculated LVEF (%): 50.51 % LA volume/Index: 101 ml /36m^2 LVOT:2.1 cm RVDd:3.4 cm Mitral: Aortic Valve Area (P1/2-Time): 3.14 cm^2 Peak Velocity: 2.28 m/s Peak E-Wave: 1.42 m/s Mean Velocity: 1.53 m/s Peak A-Wave: 1.08 m/s Peak Gradient: 20.79 mmHg E/A Ratio: 1.31 Mean Gradient: 11 mmHg Peak Gradient: 8.07 mmHg Mean Gradient: 6 mmHg Deceleration Time: 254 msec Area (continuity): 2.69 cm^2 P1/2t: 70 msec AV VTI: 48.8 cm Area (continuity): 2.66 cm^2 Mean Velocity: 1.16 m/s Tricuspid: Pulmonic: Estimated RVSP: 33 mmHg Peak Velocity: 1.55 m/s Peak TR Velocity: 2.68 m/s Peak Gradient: 9.61 mmHg Peak TR Gradient: 28.7296 mmHg Diastology / Tissue Doppler Septal Wall E' velocity:0.10 m/s Septal Wall E/E':14.7 Lateral Wall E' velocity:0.12 m/s Lateral Wall E/E':11.7 [place] POC Glucose Fingerstickon Glucose [Mass/Vol] 91 mg/dL 65 - 105 mg/dL [place] Glucose [Mass/Vol] 100 mg/dL 65 - 105 mg/dL [place] Glucose [Mass/Vol] 112 mg/dL High 65 - 105 mg/dL [place] Interpretation and review of laboratory results Abnormal [place] Glucose [Mass/Vol] 98 mg/dL 65 - 105 mg/dL [place] Glucose [Mass/Vol] 87 mg/dL 65 - 105 mg/dL [place] Surgical Pathologyon 020 Surgical Pathology Report -- Diagnosis -- BONE, RIGHT ISCHIUM, IMAGE GUIDED BONE BIOPSY: - BONE AND MARROW NECROSIS WITH GRANULATION TISSUE AND BONE REMODELING. - SPECIAL STAINS APPEAR NEGATIVE FOR MICROORGANISMS (BACTERIAL, FUNGAL OR MYCOBACTERIAL). - PANKERATIN IMMUNOSTAIN IS NEGATIVE FOR METASTATIC CARCINOMA. - SEE COMMENT. -- Diagnosis Comment -- THERE IS NO EVIDENCE OF MALIGNANCY IN THE SECTIONS, HOWEVER THERE IS ALSO NO EVIDENCE OF AN IDENTIFIABLE INFECTIOUS ETIOLOGY. CONSIDERATION FOR A SURGICAL INCISIONAL BIOPSY AT A FUTURE DATE (BOTH FOR ROUTINE HISTOLOGY WELL TISSUE MICROBIOLOGICAL CULTURE) MAY BE FURTHER CONTRIBUTORY, IF THE PATIENT FAILS TO RESPOND TO CONSERVATIVE THERAPY. FINDINGS WERE DISCUSSED WITH DR. DIAZ ON 04/28/2020 AT 4:45 PM. Juan Luis Hoover M.D. Electronically Signed Out ham/04/28/2020 Clinical Information Pre-op Diagnosis: PROBABLE METS WITH BONY DESTRUCTION Operative Findings: R ISCHIAL BONE BX Operation Performed: RIGHT HIP ASPIRATE ISCHIUM BONE BIOPSY Source of Specimen 1: R ISCHIUM BONE BX Gross Description LISA MCDANIELS, RIGHT ISCHIUM BX Six penaloza-white cores and fragments from 0.2 to 1.7 cm and are 1.7 x 0.6 x 0.2 cm in aggregate. Entirely 2cs after short decalcification. mpb tm Intraoperative Diagnosis Pass 1: Fibroadipose tissue and inflammatory cells. Pass 2: Necrotic cells.Pass 3: Necrotic cells. Portion for culture. Pass 4: Inflammatory cells. Pass 5: Inflammatory cells. Adequate. (JET) Microscopic Description Sections show multiple cores of bone and fibroadipose tissue. The bone shows prominent areas of remodeling and necrosis, with marrow spaces with granulation tissue change. There are also areas of abrupt transition of necrotic bone to necrotic marrow. There is no definite evidence of cytologic atypia, neoplastic osteoid, or viable neoplasm in these sections. A pankeratin immunostain is negative for metastatic carcinoma. A Gram stain is negative for bacteria. A GMS stain is negative for fungal organisms. An acid-fast bacilli stain is negative for mycobacteria. Controls stain appropriately. Slides were reviewed with a second pathologist (ROSSY) who agrees with the diagnosis. SURGICAL PATHOLOGY CONSULTATION Patient Name: LISA MCDANIELS [facility] Rec: [id number] Path Number: [id number] [facility] ANAT[facility]IC PATHOLOG[facility] [address] [place] [address]. [place], [place] [address] [place] BASIC METABOLIC PANELon 12-2 Anion gap [Moles/Vol] 10 mmol/L 9 - 17 mmol/L [place] Bun/Cre Ratio NOT REPORTED [place] Calcium [Mass/Vol] 8.5 mg/dL Low 8.6 - 10. 4 mg/dL [place] Chloride [Moles/Vol] 106 mmol/L 98 - 10 7 mmol/L [place] CO2 [Moles/Vol] 21 mmol/L 20 - 31 mmol/L [place] Creatinine [Mass/Vol] 0.65 mg/dL 0.5 - 0.9 mg/dL [place] GFR >60 >60 mL/min [place] GFR Non- >60 >60 mL/min [place] GFR/1.73 sq M predicted among non-blacks MDRD (S/P/Bld) [Vol rate/Area] [place] Comment on above: Average GFR for 30-3 9 years old: 107 mL/min/1.73sq m Chronic Kidney Disease: <60 mL/min/1.73sq m Kidney failure: <15 mL/min/1.73sq m eGFR calculated using average adult body mass. Additional eGFR calculator available at: http://www.[employer]/multiple_crcl_2012.htm GFR/1.73 sq M predicted among non-blacks MDRD (S/P/Bld) [Vol rate/Area] NOT REPORTED [place] Glucose [Mass/Vol] 86 mg/dL 70 - 99 mg/dL [place] Interpretation and review of laboratory results Abnormal [place] Potassium [Moles/Vol] 5.1 mmol/L 3.7 - 5.3 mmol/L [place] Sodium [Moles/Vol] 137 mmol/L 135 - 144 mmol/L [place] Urea nitrogen [Mass/Vol] 13 mg/dL 6 - 20 mg/dL [place] Basic Metabolic Profon 04-27 (cont.) Normal [facility] Comment on above: Result Comment: Aver age GFR for 30-39 years old: 107 mL/min/1.73sq m Chronic Kidney Disease: <60 mL/min/1.73sq m Kidney failure: <15 mL/min/1.73sq m eGFR calculated using average adult body mass. Additional eGFR calculator available at: http://www.[employer].com/multiple_crcl_2012.htm Performed By: #### T SHX, CBC, LIVP, BMP, FT4 #### [facility] [address] [place] [address] Field Sales Trainer: Yosi Espinal MD Anion gap [Moles/Vol] 10 mmol/L Normal 9-17 [facility] Comment on above: Performed By: #### T SHX, CBC, LIVP, BMP, FT4 #### [facility] [address] [place] [address] Field Sales Trainer: Yosi Espinal MD Calcium [Mass/Vol] 8.5 mg/dL Low 8.6-10.4 [facility] Comment on above: Performed By: #### T SHX, CBC, LIVP, BMP, FT4 #### [facility] [address] [place] [address] Field Sales Trainer: Yosi Espinal MD Chloride [Moles/Vol] 106 mmol/L Normal 98-107 [facility] Comment on above: Performed By: #### T SHX, CBC, LIVP, BMP, FT4 #### [facility] [address] [place] [address] Field Sales Trainer: Yosi Espinal MD CO2 [Moles/Vol] 21 mmol/L Normal 20-31 [facility] Comment on above: Performed By: #### T SHX, CBC, LIVP, BMP, FT4 #### [facility] [address] [place] [address] Field Sales Trainer: Yosi Espinal MD Creatinine [Mass/Vol] 0.65 mg/dL Normal 0.50-0.90 [facility] Comment on above: Performed By: #### T SHX, CBC, LIVP, BMP, FT4 #### [facility] [address] [place] [address] Field Sales Trainer: Yosi Espinal MD GFR, Amer >60 Normal >60 [facility] Comment on above: Performed By: #### T SHX, CBC, LIVP, BMP, FT4 #### [facility] [address] [place] [address] Field Sales Trainer: Yosi Espinal MD GFR,non Amer >60 Normal >60 [facility] Comment on above: Performed By: #### T SHX, CBC, LIVP, BMP, FT4 #### [facility] [address] [place] [address] [phone] Field Sales Trainer: Yosi Espinal MD Glucose [Mass/Vol] 86 mg/dL Normal 70-99 [facility] Comment on above: Performed By: #### T SHX, CBC, LIVP, BMP, FT4 #### [facility] [address] [place] [address] 70182 Field Sales Trainer: Yosi Espinal MD Potassium [Moles/Vol] 5.1 mmol/L Normal 3.7-5.3 [facility] Comment on above: Performed By: #### T SHX, CBC, LIVP, BMP, FT4 #### [facility] [address] [place] [address] 37308 Field Sales Trainer: Yosi Espinal MD Sodium [Moles/Vol] 137 mmol/L Normal 135-144 [facility] Comment on above: Performed By: #### T SHX, CBC, LIVP, BMP, FT4 #### [facility] [address] [place] [address] [phone] Field Sales Trainer: Yosi Espinal MD Urea nitrogen [Mass/Vol] 13 mg/dL Normal 6-20 [facility] Comment on above: Performed By: #### T SHX, CBC, LIVP, BMP, FT4 #### [facility] [address] [place] [address] 80280 Field Sales Trainer: Yosi Espinal MD BUN/CRE Ratio NOT REPORTED Normal - [facility] Comment on above: Performed By: #### T SHX, CBC, LIVP, BMP, FT4 #### [facility] [address] [place] [address] [phone] Field Sales Trainer: Yosi Espinal MD Staging: NOT REPORTED Normal [facility] Comment on above: Performed By: #### T SHX, CBC, LIVP, BMP, FT4 #### [facility] [address] [place] [address] [phone] Field Sales Trainer: Yosi Espinal MD CA 27-29on 04-27-2020 CA 27-29 21 U/mL Normal 0-38 [facility] Comment on above: Performed By: #### T SHX, CBC, LIVP, BMP, FT4 #### [address] [phone] Field Sales Trainer: Yosi Espinal MD CANCER ANTIGEN 27.29on 04-27 CA 27-29 21 U/mL 0 - 38 U/mL [place], [place] CBCon 04-27-2020 Erythrocyte distribution width (RBC) [Ratio] 19.7 % High 11.8-14.4 [facility] Comment on above: Performed By: #### T SHX, CBC, LIVP, BMP, FT4 #### [facility] [address] [place] [address] [phone] Field Sales Trainer: Yosi Espinal MD Hematocrit (Bld) [Volume fraction] 30.4 % Low 36.3-47.1 [facility] Comment on above: Performed By: #### T SHX, CBC, LIVP, BMP, FT4 #### [facility] [address] [place] [address] [phone] Field Sales Trainer: Yosi Espinal MD Hemoglobin (Bld) [Mass/Vol] 9.4 g/dL Low 11.9-15.1 [facility] Comment on above: Performed By: #### T SHX, CBC, LIVP, BMP, FT4 #### [address] [address] Field Sales Trainer: Yosi Espinal MD MCH (RBC) [Entitic mass] 25.0 pg Low 25.2-33.5 [facility] Comment on above: Performed By: #### T SHX, CBC, LIVP, BMP, FT4 #### [address] [address] Field Sales Trainer: Yosi Esipnal MD MCHC (RBC) [Mass/Vol] 30.9 g/dL Normal 28.4-34.8 [facility] Comment on above: Performed By: #### T SHX, CBC, LIVP, BMP, FT4 #### [address] [address] Field Sales Trainer: Yosi Espinal MD MCV (RBC) [Entitic vol] 80.9 fL Low 82.6-102.9 [facility] Comment on above: Performed By: #### T SHX, CBC, LIVP, BMP, FT4 #### [address] [address] Field Sales Trainer: Yosi Espinal MD NRBC Automated 0.0 per 100 WBC Normal 0.0 [facility] Comment on above: Performed By: #### T SHX, CBC, LIVP, BMP, FT4 #### [address] [address] Field Sales Trainer: Yosi Espinal MD Platelets (Bld) [#/Vol] See Reflexed IPF Result Normal 138-453 [facility] Comment on above: Performed By: #### T SHX, CBC, LIVP, BMP, FT4 #### [address] [address] Field Sales Trainer: Yosi Espinal MD RBC (Bld) [#/Vol] 3.76 10*6/uL Low 3.95-5.11 [facility] Comment on above: Performed By: #### T SHX, CBC, LIVP, BMP, FT4 #### [facility] [place], [place] [phone] Field Sales Trainer: Yosi Espinal MD WBC (Bld) [#/Vol] 9.0 10*3/uL Normal 3.5-11.3 [facility] Comment on above: Performed By: #### T SHX, CBC, LIVP, BMP, FT4 #### [facility] [place], [place] [phone] Field Sales Trainer: Yosi Espinal MD Platelet mean volume (Bld) [Entitic vol] NOT REPORTED Normal 8.1-13.5 [facility] Comment on above: Performed By: #### T SHX, CBC, LIVP, BMP, FT4 #### [facility] [address] [place] [address] [phone] Field Sales Trainer: Yosi Espinal MD Erythrocyte distribution width (RBC) [Ratio] 19.7 % High 11.8 - 14.4 % [place] Hematocrit (Bld) [Volume fraction] 30.4 % Low 36.3 - 47.1 % [place] Hemoglobin (Bld) [Mass/Vol] 9.4 g/dL Low 11.9 - 15.1 g/dL [place] Interpretation and review of laboratory results Abnormal [place] MCH (RBC) [Entitic mass] 25.0 pg Low 25.2 - 33.5 pg [place] MCHC (RBC) [Mass/Vol] 30.9 g/dL 28.4 - 34.8 g/dL [place] MCV (RBC) [Entitic vol] 80.9 fL Low 82.6 - 102.9 fL [place] Platelet mean volume (Bld) [Entitic vol] NOT REPORTED 8.1 - 13.5 fL [place] Platelets (Bld) [#/Vol] See Reflexed IPF Result [place] RBC (Bld) [#/Vol] 3.76 10*6/uL Low 3.95 - 5.1 1 m/uL [place] WBC (Bld) [#/Vol] 0.0 10*3/uL 0.0 per 10 0 WBC [place] WBC (Bld) [#/Vol] 9.0 10*3/uL [place] Cult,Bloodon 04-27-2020 Cult,Blood Specimen Description .BLOOD Special Requests LT HAND 5ML Culture POSITIVE Blood Culture Results called to and read back by: WEI Tim AT 2110 ON 04/25/2020 DIRECT GRAM STAIN FROM BOTTLE: GRAM POSITIVE COCCI IN CLUSTERS Staphylococcus epidermidis Detected: mecA/C Gene Detected- Methicillin Resistant Organism Methodology- Polymerase Chain Reaction (PCR) STAPHYLOCOCCUS EPIDERMIDIS A single positive blood culture of coagulase negative Staphylocci, diptheroids, micrococci, Cutibacterium, viridans Streptocci, Bacillus, or Lactobacillus species should be interpreted with caution and viewed as a likely skin contaminant. Report Status FINAL 04/27/2020 Normal [facility] Comment on above: Performed By: #### T SHX, CBC, LIVP, BMP, FT4 #### [facility] [address] [place] [phone] Field Sales Trainer: Yosi Espinal MD Cult,Blood Specimen Description .BLOOD Special Requests LT HAND 6ML Culture NO GROWTH 6 DAYS Report Status FINAL 04/27/2020 Normal [facility] Comment on above: Performed By: #### B C #### [facility] [address] [place] [phone] Field Sales Trainer: Yosi Espinal MD Culture, Blood 1on 0 Culture POSITIVE Blood Cultu re Results called to and read back by: WEI Tim AT 2110 ON 04/25/2020 Abnormal [place] Culture STAPHYLOCOCCUS EPIDERMIDIS A single positive blood culture of coagulase negative Staphylocci, diptheroids, micrococci, Cutibacterium, viridans Streptocci, Bacillus, or Lactobacillus species should be interpreted with caution and viewed as a likely skin contaminant. Abnormal [place] Culture DIRECT GRAM STAIN FR OM BOTTLE: GRAM POSITIVE COCCI IN CLUSTERS [place] INR Coag (Bld) [Relative time] Staphylococcus epidermidis Detected: mecA/C Gene Detected- Methicillin Resistant Organism Methodology- Polymerase Chain Reaction (PCR) Abnormal [place] Interpretation and review of laboratory results Abnormal [place] Special Requests LT HAND 5ML [place] Specimen Description .BLOOD [place] Culture NO GROWTH 6 DAYS [place] Special Requests LT HAND 6ML [place] Specimen Description .BLOOD [place] Immature Platelet Fractionon 04-27-2020 Platelet, Fluorescence Platelet clumps p resent, count appears adequate. [place] PLT, Immature Fract.on 04-27 Platelet, Fluoresc. Platelet clumps pres ent, count appears adequate. Normal 138-453 [facility] Comment on above: Performed By: #### T SHX, CBC, LIVP, BMP, FT4 #### [facility] [address] [place] [address] [phone] Field Sales Trainer: Yosi Espinal MD PLT, Immature Fract. NOT REPORTED Normal 1.1-10.3 [facility] Comment on above: Performed By: #### T SHX, CBC, LIVP, BMP, FT4 #### [address] [phone] Field Sales Trainer: Yosi Espinal MD POC Glucose Fingerstickon Glucose [Mass/Vol] 119 mg/dL High 65 - 105 mg/dL [place] Interpretation and review of laboratory results Abnormal [place] Glucose [Mass/Vol] 94 mg/dL 65 - 105 mg/dL [place] Glucose [Mass/Vol] 79 mg/dL 65 - 105 mg/dL [place] Glucose [Mass/Vol] 76 mg/dL 65 - 105 mg/dL [place] BASIC METABOLIC PANELon - Anion gap [Moles/Vol] 8 mmol/L Low 9 - 17 mmol/L [place] Bun/Cre Ratio NOT REPORTED [place] Calcium [Mass/Vol] 8.3 mg/dL Low 8.6 - 10. 4 mg/dL [place] Chloride [Moles/Vol] 106 mmol/L 98 - 10 7 mmol/L [place] CO2 [Moles/Vol] 21 mmol/L 20 - 31 mmol/L [place] Creatinine [Mass/Vol] 0.63 mg/dL 0.5 - 0.9 mg/dL [place] GFR >60 >60 mL/min [place] GFR Non- >60 >60 mL/min [place] GFR/1.73 sq M predicted among non-blacks MDRD (S/P/Bld) [Vol rate/Area] NOT REPORTED [place] GFR/1.73 sq M predicted among non-blacks MDRD (S/P/Bld) [Vol rate/Area] [place] Comment on above: Average GFR for 30-3 9 years old: 107 mL/min/1.73sq m Chronic Kidney Disease: <60 mL/min/1.73sq m Kidney failure: <15 mL/min/1.73sq m eGFR calculated using average adult body mass. Additional eGFR calculator available at: http://www.[employer]/multiple_crcl_2012.htm Glucose [Mass/Vol] 85 mg/dL 70 - 99 mg/dL [place] Interpretation and review of laboratory results Abnormal [place] Potassium [Moles/Vol] 5.1 mmol/L 3.7 - 5.3 mmol/L [place] Comment on above: SPECIMEN SLIGHTLY HE MOLYZED, RESULTS MAY BE ADVERSELY AFFECTED. Sodium [Moles/Vol] 135 mmol/L 135 - 144 mmol/L [place] Urea nitrogen [Mass/Vol] 15 mg/dL 6 - 20 mg/dL [place] Basic Metabolic Profon 04-26 (cont.) Normal [facility] Comment on above: Result Comment: Aver age GFR for 30-39 years old: 107 mL/min/1.73sq m Chronic Kidney Disease: <60 mL/min/1.73sq m Kidney failure: <15 mL/min/1.73sq m eGFR calculated using average adult body mass. Additional eGFR calculator available at: http://www.[employer]/multiple_crcl_2012.htm Performed By: #### T SHX, CBC, LIVP, BMP, FT4 #### [facility] [address] [place] [address] [phone] Field Sales Trainer: Yosi Espinal MD Anion gap [Moles/Vol] 8 mmol/L Low 9-17 [facility] Comment on above: Performed By: #### T SHX, CBC, LIVP, BMP, FT4 #### [facility] [address] [place] [address] [phone] Field Sales Trainer: Yosi Espinal MD Calcium [Mass/Vol] 8.3 mg/dL Low 8.6-10.4 [facility] Comment on above: Performed By: #### T SHX, CBC, LIVP, BMP, FT4 #### [facility] [address] [place] [address] [phone] Field Sales Trainer: Yosi Espinal MD Chloride [Moles/Vol] 106 mmol/L Normal 98-107 [facility] Comment on above: Performed By: #### T SHX, CBC, LIVP, BMP, FT4 #### [facility] [address] [place] [address] [phone] Field Sales Trainer: Yosi Espinal MD CO2 [Moles/Vol] 21 mmol/L Normal 20-31 [facility] Comment on above: Performed By: #### T SHX, CBC, LIVP, BMP, FT4 #### [facility] [address] [place] [address] [phone] Field Sales Trainer: Yosi Espinal MD Creatinine [Mass/Vol] 0.63 mg/dL Normal 0.50-0.90 [facility] Comment on above: Performed By: #### T SHX, CBC, LIVP, BMP, FT4 #### [facility] [address] [place] [address] [phone] Field Sales Trainer: Yosi Espinal MD GFR, Amer >60 Normal >60 [facility] Comment on above: Performed By: #### T SHX, CBC, LIVP, BMP, FT4 #### [facility] [address] [place] [address] 40535 Field Sales Trainer: Yosi Espinal MD GFR,non Amer >60 Normal >60 [facility] Comment on above: Performed By: #### T SHX, CBC, LIVP, BMP, FT4 #### [facility] [address] [place] [address] 23782 Field Sales Trainer: Yosi Espinal MD Glucose [Mass/Vol] 85 mg/dL Normal 70-99 [facility] Comment on above: Performed By: #### T SHX, CBC, LIVP, BMP, FT4 #### [facility] [address] [place] [address] [phone] Field Sales Trainer: Yosi Espinal MD Potassium [Moles/Vol] 5.1 mmol/L Normal 3.7-5.3 [facility] Comment on above: Result Comment: SPEC IMEN SLIGHTLY HEMOLYZED, RESULTS MAY BE ADVERSELY AFFECTED. Performed By: #### T SHX, CBC, LIVP, BMP, FT4 #### [facility] [address] [place] [address] [phone] Field Sales Trainer: Yosi Espinal MD Sodium [Moles/Vol] 135 mmol/L Normal 135-144 [facility] Comment on above: Performed By: #### T SHX, CBC, LIVP, BMP, FT4 #### [facility] [address] [place] [address] [phone] Field Sales Trainer: Yosi Espinal MD Urea nitrogen [Mass/Vol] 15 mg/dL Normal 6-20 [facility] Comment on above: Performed By: #### T SHX, CBC, LIVP, BMP, FT4 #### [facility] [address] [place] [phone] Field Sales Trainer: Yosi Espinal MD BUN/CRE Ratio NOT REPORTED Normal - [facility] Comment on above: Performed By: #### T SHX, CBC, LIVP, BMP, FT4 #### [facility] [address] [place] [address] [phone] Field Sales Trainer: Yosi Espinal MD Staging: NOT REPORTED Normal [facility] Comment on above: Performed By: #### T SHX, CBC, LIVP, BMP, FT4 #### [facility] [address] [place] [address] [phone] Field Sales Trainer: Yosi Espinal MD CBCon 04-26-2020 Erythrocyte distribution width (RBC) [Ratio] 19.9 % High 11.8-14.4 [facility] Comment on above: Performed By: #### T SHX, CBC, LIVP, BMP, FT4 #### [facility] [address] [place] [address] [phone] Field Sales Trainer: Yosi Espinal MD Hematocrit (Bld) [Volume fraction] 29.1 % Low 36.3-47.1 [facility] Comment on above: Performed By: #### T SHX, CBC, LIVP, BMP, FT4 #### [facility] [address] [place] [address] 93880 Field Sales Trainer: Yosi Espinal MD Hemoglobin (Bld) [Mass/Vol] 8.5 g/dL Low 11.9-15.1 [facility] Comment on above: Performed By: #### T SHX, CBC, LIVP, BMP, FT4 #### [facility] [address] [place] [address] 51831 Field Sales Trainer: Yosi Espinal MD MCH (RBC) [Entitic mass] 24.9 pg Low 25.2-33.5 [facility] Comment on above: Performed By: #### T SHX, CBC, LIVP, BMP, FT4 #### [facility] [address] [place] [address] 97589 Field Sales Trainer: Yosi Espinal MD MCHC (RBC) [Mass/Vol] 29.2 g/dL Normal 28.4-34.8 [facility] Comment on above: Performed By: #### T SHX, CBC, LIVP, BMP, FT4 #### [address] [address] Field Sales Trainer: Yosi Espinal MD MCV (RBC) [Entitic vol] 85.1 fL Normal 82.6-102.9 [facility] Comment on above: Performed By: #### T SHX, CBC, LIVP, BMP, FT4 #### [address] [address] Field Sales Trainer: Yosi Espinal MD NRBC Automated 0.3 per 100 WBC High 0.0 [facility] Comment on above: Performed By: #### T SHX, CBC, LIVP, BMP, FT4 #### [address] [address] Field Sales Trainer: Yosi Espinal MD Platelet mean volume (Bld) [Entitic vol] 10.0 fL Normal 8.1-13.5 [facility] Comment on above: Performed By: #### T SHX, CBC, LIVP, BMP, FT4 #### [address] [address] Field Sales Trainer: Yosi Espinal MD Platelets (Bld) [#/Vol] 183 10*3/uL Normal 138-453 [facility] Comment on above: Performed By: #### T SHX, CBC, LIVP, BMP, FT4 #### [place] [id number] [place], [place] [phone] Field Sales Trainer: Yosi Espinal MD RBC (Bld) [#/Vol] 3.42 10*6/uL Low 3.95-5.11 [facility] Comment on above: Performed By: #### T SHX, CBC, LIVP, BMP, FT4 #### [facility] [address] [place], [place] [phone] Field Sales Trainer: Yosi Espinal MD WBC (Bld) [#/Vol] 8.7 10*3/uL Normal 3.5-11.3 [facility] Comment on above: Performed By: #### T SHX, CBC, LIVP, BMP, FT4 #### [facility] [address] [place], [place] [phone] Field Sales Trainer: Yosi Espinal MD Erythrocyte distribution width (RBC) [Ratio] 19.9 % High 11.8 - 14.4 % [place] Hematocrit (Bld) [Volume fraction] 29.1 % Low 36.3 - 47.1 % [place] Hemoglobin (Bld) [Mass/Vol] 8.5 g/dL Low 11.9 - 15.1 g/dL [place] Interpretation and review of laboratory results Abnormal [place] MCH (RBC) [Entitic mass] 24.9 pg Low 25.2 - 33.5 pg [place] MCHC (RBC) [Mass/Vol] 29.2 g/dL 28.4 - 34.8 g/dL [place] MCV (RBC) [Entitic vol] 85.1 fL 82.6 - 102.9 fL [place] Platelet mean volume (Bld) [Entitic vol] 10.0 fL 8.1 - 13.5 fL [place] Platelets (Bld) [#/Vol] 183 10*3/uL [place] RBC (Bld) [#/Vol] 3.42 10*6/uL Low 3.95 - 5.1 1 m/uL [place] WBC (Bld) [#/Vol] 0.3 10*3/uL High 0.0 per 10 0 WBC [place] WBC (Bld) [#/Vol] 8.7 10*3/uL [place] POC Glucose Fingerstickon Glucose [Mass/Vol] 104 mg/dL 65 - 105 mg/dL [place] Glucose [Mass/Vol] 91 mg/dL 65 - 105 mg/dL [place] Glucose [Mass/Vol] 77 mg/dL 65 - 105 mg/dL [place] BASIC METABOLIC PANELon 04-08 Anion gap [Moles/Vol] 7 mmol/L Low 9 - 17 mmol/L [place] Bun/Cre Ratio NOT REPORTED [place] Calcium [Mass/Vol] 8.1 mg/dL Low 8.6 - 10. 4 mg/dL [place] Chloride [Moles/Vol] 110 mmol/L High 98 - 10 7 mmol/L [place] CO2 [Moles/Vol] 21 mmol/L 20 - 31 mmol/L [place] Creatinine [Mass/Vol] 0.63 mg/dL 0.5 - 0.9 mg/dL [place] GFR >60 >60 mL/min [place] GFR Non- >60 >60 mL/min [place] GFR/1.73 sq M predicted among non-blacks MDRD (S/P/Bld) [Vol rate/Area] NOT REPORTED [place] GFR/1.73 sq M predicted among non-blacks MDRD (S/P/Bld) [Vol rate/Area] [place] Comment on above: Average GFR for 30-3 9 years old: 107 mL/min/1.73sq m Chronic Kidney Disease: <60 mL/min/1.73sq m Kidney failure: <15 mL/min/1.73sq m eGFR calculated using average adult body mass. Additional eGFR calculator available at: http://www.[employer]/multiple_crcl_2012.htm Glucose [Mass/Vol] 81 mg/dL 70 - 99 mg/dL [place] Interpretation and review of laboratory results Abnormal [place] Potassium [Moles/Vol] 4.7 mmol/L 3.7 - 5.3 mmol/L [place] Sodium [Moles/Vol] 138 mmol/L 135 - 144 mmol/L [place] Urea nitrogen [Mass/Vol] 20 mg/dL 6 - 20 mg/dL [place] Basic Metabolic Profon 04-25 (cont.) Normal [facility] Comment on above: Result Comment: Aver age GFR for 30-39 years old: 107 mL/min/1.73sq m Chronic Kidney Disease: <60 mL/min/1.73sq m Kidney failure: <15 mL/min/1.73sq m eGFR calculated using average adult body mass. Additional eGFR calculator available at: http://www.[employer]/multiple_crcl_2011.htm Performed By: #### T SHX, CBC, LIVP, BMP, FT4 #### [facility] [address] [place] [address] [phone] Field Sales Trainer: Yosi Espinal MD Anion gap [Moles/Vol] 7 mmol/L Low 9-17 [facility] Comment on above: Performed By: #### T SHX, CBC, LIVP, BMP, FT4 #### [facility] [address] [place] [address] [phone] Field Sales Trainer: Yosi Espinal MD Calcium [Mass/Vol] 8.1 mg/dL Low 8.6-10.4 [facility] Comment on above: Performed By: #### T SHX, CBC, LIVP, BMP, FT4 #### [facility] [address] [place] [address] [phone] Field Sales Trainer: Yosi Espinal MD Chloride [Moles/Vol] 110 mmol/L High 98-107 [facility] Comment on above: Performed By: #### T SHX, CBC, LIVP, BMP, FT4 #### [facility] [address] [place] [address] [phone] Field Sales Trainer: Yosi Espinal MD CO2 [Moles/Vol] 21 mmol/L Normal 20-31 [facility] Comment on above: Performed By: #### T SHX, CBC, LIVP, BMP, FT4 #### [facility] [address] [place] [address] 56031 Field Sales Trainer: Yosi Espinal MD Creatinine [Mass/Vol] 0.63 mg/dL Normal 0.50-0.90 [facility] Comment on above: Performed By: #### T SHX, CBC, LIVP, BMP, FT4 #### [facility] [address] [place] [address] 52970 Field Sales Trainer: Yosi Espinal MD GFR, Amer >60 Normal >60 [facility] Comment on above: Performed By: #### T SHX, CBC, LIVP, BMP, FT4 #### [facility] [address] [place] [address] [phone] Field Sales Trainer: Yosi Espinal MD GFR,non Amer >60 Normal >60 [facility] Comment on above: Performed By: #### T SHX, CBC, LIVP, BMP, FT4 #### [facility] [address] [place] [address] 93866 Field Sales Trainer: Yosi Espinal MD Glucose [Mass/Vol] 81 mg/dL Normal 70-99 [facility] Comment on above: Performed By: #### T SHX, CBC, LIVP, BMP, FT4 #### [facility] [address] [place] [address] [phone] Field Sales Trainer: Yosi Espinal MD Potassium [Moles/Vol] 4.7 mmol/L Normal 3.7-5.3 [facility] Comment on above: Performed By: #### T SHX, CBC, LIVP, BMP, FT4 #### [facility] [address] [place] [address] 24804 Field Sales Trainer: Yosi Espinal MD Sodium [Moles/Vol] 138 mmol/L Normal 135-144 [facility] Comment on above: Performed By: #### T SHX, CBC, LIVP, BMP, FT4 #### [facility] [address] [place] [address] [phone] Field Sales Trainer: Yosi Espinal MD Urea nitrogen [Mass/Vol] 20 mg/dL Normal 6-20 [facility] Comment on above: Performed By: #### T SHX, CBC, LIVP, BMP, FT4 #### [facility] [address] [place] [address] [phone] Field Sales Trainer: Yosi Espinal MD BUN/CRE Ratio NOT REPORTED Normal -20 [facility] Comment on above: Performed By: #### T SHX, CBC, LIVP, BMP, FT4 #### [facility] [address] [place] [address] [phone] Field Sales Trainer: Yosi Espinal MD Staging: NOT REPORTED Normal [facility] Comment on above: Performed By: #### T SHX, CBC, LIVP, BMP, FT4 #### [facility] [address] [place] [address] 61829 Field Sales Trainer: Yosi Espinal MD C-REACTIVE PROTEINon 020 CRP [Mass/Vol] 29.6 mg/L High 0 - 5 mg/L [place] Interpretation and review of laboratory results Abnormal [place] C-Reactive Proteinon 020 CRP [Mass/Vol] 29.6 mg/L High 0.0-5.0 [facility] Comment on above: Performed By: #### T SHX, CBC, LIVP, BMP, FT4 #### [facility] [address] [place] [address] [phone] Field Sales Trainer: Yosi Espinal MD CBCon 04-25-2020 Erythrocyte distribution width (RBC) [Ratio] 19.9 % High 11.8-14.4 [facility] Comment on above: Performed By: #### T SHX, CBC, LIVP, BMP, FT4 #### [address] [address] Field Sales Trainer: Yosi Espinal MD Hematocrit (Bld) [Volume fraction] 31.0 % Low 36.3-47.1 [facility] Comment on above: Performed By: #### T SHX, CBC, LIVP, BMP, FT4 #### [address] [address] Field Sales Trainer: Yosi Espinal MD Hemoglobin (Bld) [Mass/Vol] 9.0 g/dL Low 11.9-15.1 [facility] Comment on above: Performed By: #### T SHX, CBC, LIVP, BMP, FT4 #### [address] [address] Field Sales Trainer: Yosi Espinal MD MCH (RBC) [Entitic mass] 25.2 pg Normal 25.2-33.5 [facility] Comment on above: Performed By: #### T SHX, CBC, LIVP, BMP, FT4 #### [address] [address] Field Sales Trainer: Yosi Espinal MD MCHC (RBC) [Mass/Vol] 29.0 g/dL Normal 28.4-34.8 [facility] Comment on above: Performed By: #### T SHX, CBC, LIVP, BMP, FT4 #### [address] [address] Field Sales Trainer: Yosi Espinal MD MCV (RBC) [Entitic vol] 86.8 fL Normal 82.6-102.9 [facility] Comment on above: Performed By: #### T SHX, CBC, LIVP, BMP, FT4 #### [facility] [address] [place] [phone] Field Sales Trainer: Yosi Espinal MD NRBC Automated 0.0 per 100 WBC Normal 0.0 [facility] Comment on above: Performed By: #### T SHX, CBC, LIVP, BMP, FT4 #### [facility] [address] [place] [phone] Field Sales Trainer: Yosi Espinal MD Platelet mean volume (Bld) [Entitic vol] 10.5 fL Normal 8.1-13.5 [facility] Comment on above: Performed By: #### T SHX, CBC, LIVP, BMP, FT4 #### [facility] [address] [place] [address] Field Sales Trainer: Yosi Espinal MD Platelets (Bld) [#/Vol] 180 10*3/uL Normal 138-453 [facility] Comment on above: Performed By: #### T SHX, CBC, LIVP, BMP, FT4 #### [facility] [address] [place] [phone] Field Sales Trainer: Yosi Espinal MD RBC (Bld) [#/Vol] 3.57 10*6/uL Low 3.95-5.11 [facility] Comment on above: Performed By: #### T SHX, CBC, LIVP, BMP, FT4 #### [facility] [address] [place] [phone] Field Sales Trainer: Yosi Espinal MD WBC (Bld) [#/Vol] 7.0 10*3/uL Normal 3.5-11.3 [facility] Comment on above: Performed By: #### T SHX, CBC, LIVP, BMP, FT4 #### [facility] [address] [place] [phone] Field Sales Trainer: Yosi Espinal MD Erythrocyte distribution width (RBC) [Ratio] 19.9 % High 11.8 - 14.4 % [place] Hematocrit (Bld) [Volume fraction] 31.0 % Low 36.3 - 47.1 % [place] Hemoglobin (Bld) [Mass/Vol] 9.0 g/dL Low 11.9 - 15.1 g/dL [place] Interpretation and review of laboratory results Abnormal [place] MCH (RBC) [Entitic mass] 25.2 pg 25.2 - 33.5 pg [place] MCHC (RBC) [Mass/Vol] 29.0 g/dL 28.4 - 34.8 g/dL [place] MCV (RBC) [Entitic vol] 86.8 fL 82.6 - 102.9 fL [place] Platelet mean volume (Bld) [Entitic vol] 10.5 fL 8.1 - 13.5 fL [place] Platelets (Bld) [#/Vol] 180 10*3/uL [place] RBC (Bld) [#/Vol] 3.57 10*6/uL Low 3.95 - 5.1 1 m/uL [place] WBC (Bld) [#/Vol] 7.0 10*3/uL [place] WBC (Bld) [#/Vol] 0.0 10*3/uL 0.0 per 10 0 WBC [place] Free [place]ils + Lambdaon 2019 Free [place] Lt Chains 1.92 mg/dL Normal 0.37-1.94 [facility] Comment on above: Performed By: #### T SHX, CBC, LIVP, BMP, FT4 #### [facility] [address] [place], [place] [phone] Field Sales Trainer: Yosi Espinal MD Free Seven [place]ils/Lambda Rat 0.89 Normal 0.26-1.65 [facility] Comment on above: Performed By: #### T SHX, CBC, LIVP, BMP, FT4 #### [facility] [address] [place] [address] Field Sales Trainer: Yosi Espinal MD Free Lambda Lt Chains 2.15 mg/dL Normal 0.57-2.63 [facility] Comment on above: Performed By: #### T SHX, CBC, LIVP, BMP, FT4 #### [facility] [address] [place] [address] Field Sales Trainer: Yosi Espinal MD Hepatic Function Panelon Albumin [Mass/Vol] 2.6 g/dL Low 3.5 - 5.2 g/dL [place] Albumin/Globulin [Mass ratio] 0.9 {ratio} Low [place] ALP [Catalytic activity/Vol] 89 U/L 35 - 104 U/L [place] ALT [Catalytic activity/Vol] 20 U/L 5 - 33 U/L [place] AST [Catalytic activity/Vol] 26 U/L <32 [place] Bilirubin Ql (U) 0.23 mg/dL Low 0.3 - 1.2 mg/dL [place] Bilirubin, Indirect CANNOT BE CALCULATED 0 - 1 mg/dL [place] Bilirubin.direct [Mass/Vol] mg/dL <0.31 mg/dL [place] Globulin (S) [Mass/Vol] NOT REPORTED 1.5 - 3.8 g/dL [place] Interpretation and review of laboratory results Abnormal [place] Protein [Mass/Vol] 5.4 g/dL Low 6.4 - 8.3 g/dL [place] IR BIOPSY SUPERFICIAL BONEon 04-25-2020 IR BIOPSY SUPERFICIAL BONE PROCEDURE: FLUOROSCOPY GUIDED CORE NEEDLE BONE BIOPSY OF THE right ischial BONE. 04/25/2020 HISTORY: ORDERING SYSTEM PROVIDED HISTORY: Right ischial bone lesion; pelvic bone mass; lytic mass of the right ischium. SEDATION: Local only. No moderate sedation was performed. TECHNIQUE: Informed consent was obtained following a detailed explanation of the procedure including risks, benefits, and alternatives. Zebulon protocol was followed. A time-out was performed to confirm the correct patient and procedure. Under fluoroscopic guidance a suitable skin site was determined and marked in the right gluteal region. Marked site was prepped and draped in usual sterile fashion. 1% lidocaine was used for local anesthesia. A 17 gauge coaxial advanced into the right ischial lesion under fluoroscopic guidance. 18 gauge core samples were obtained through the coaxial needle. 5 passes were made in total. The coaxial needle was removed and manual pressure held for hemostasis. The samples were given to pathology to help confirm sample adequacy. A sterile dressing was applied. Patient tolerated the procedure well. No immediate complication. Estimated blood loss: Less than 1 mL. IMPRESSION: Successful fluoroscopy guided core biopsy of the right ischial lesion. Interpreted by: Steph Veliz MD Signed by: Steph Veliz MD 04/25/20 Final result Normal [facility] PROCEDURE: FLUOROSCO PY GUIDED CORE NEEDLE BONE BIOPSY OF THE right ischial BONE. 04/25/2020 HISTORY: ORDERING SYSTEM PROVIDED HISTORY: Right ischial bone lesion; pelvic bone mass; lytic mass of the right ischium. SEDATION: Local only. No moderate sedation was performed. TECHNIQUE: Informed consent was obtained following a detailed explanation of the procedure including risks, benefits, and alternatives. Zebulon protocol was followed. A time-out was performed to confirm the correct patient and procedure. Under fluoroscopic guidance a suitable skin site was determined and marked in the right gluteal region. Marked site was prepped and draped in usual sterile fashion. 1% lidocaine was used for local anesthesia. A 17 gauge coaxial advanced into the right ischial lesion under fluoroscopic guidance. 18 gauge core samples were obtained through the coaxial needle. 5 passes were made in total. The coaxial needle was removed and manual pressure held for hemostasis. The samples were given to pathology to help confirm sample adequacy. A sterile dressing was applied. Patient tolerated the procedure well. No immediate complication. Estimated blood loss: Less than 1 mL. [facility] Successful fluorosco py guided core biopsy of the right ischial lesion. [facility] [place], Mhpn Incoming Radiant Results From [facility] - 04/25/2020 2:52 PM EST PROCEDURE: FLUOROSCOPY GUIDED CORE NEEDLE BONE BIOPSY OF THE right ischial BONE. 04/25/2020 HISTORY: ORDERING SYSTEM PROVIDED HISTORY: Right ischial bone lesion; pelvic bone mass; lytic mass of the right ischium. SEDATION: Local only. No moderate sedation was performed. TECHNIQUE: Informed consent was obtained following a detailed explanation of the procedure including risks, benefits, and alternatives. Zebulon protocol was followed. A time-out was performed to confirm the correct patient and procedure. Under fluoroscopic guidance a suitable skin site was determined and marked in the right gluteal region. Marked site was prepped and draped in usual sterile fashion. 1% lidocaine was used for local anesthesia. A 17 gauge coaxial advanced into the right ischial lesion under fluoroscopic guidance. 18 gauge core samples were obtained through the coaxial needle. 5 passes were made in total. The coaxial needle was removed and manual pressure held for hemostasis. The samples were given to pathology to help confirm sample adequacy. A sterile dressing was applied. Patient tolerated the procedure well. No immediate complication. Estimated blood loss: Less than 1 mL. IMPRESSION: Successful fluoroscopy guided core biopsy of the right ischial lesion. [place] KAPPA/LAMBDA QUANT FREE LIGH T CHAINS SERUMon 04-25-2020 Free [place]ils/Lambda Ratio 0.89 M [place]ils Free Light Chains QNT 1.92 mg/dL 0.37 - 1.94 mg/dL [place] Lambda Free Light Chains QNT 2.15 mg/dL 0.57 - 2.63 mg/dL [place] Liver Profileon 04-25-2020 Albumin [Mass/Vol] 2.6 g/dL Low 3.5-5.2 [facility] Comment on above: Performed By: #### T SHX, CBC, LIVP, BMP, FT4 #### [facility] [address] [place] [address] [phone] Field Sales Trainer: Yosi Espinal MD Albumin/Globulin [Mass ratio] 0.9 {ratio} Low 1.0-2.5 [facility] Comment on above: Performed By: #### T SHX, CBC, LIVP, BMP, FT4 #### [facility] [address] [place] [address] [phone] Field Sales Trainer: Yosi Espinal MD Alkaline Phos 89 U/L Normal 35-104 [facility] Comment on above: Performed By: #### T SHX, CBC, LIVP, BMP, FT4 #### [facility] [address] [place] [address] Field Sales Trainer: Yosi Espinal MD ALT [Catalytic activity/Vol] 20 U/L Normal 5-33 [facility] Comment on above: Performed By: #### T SHX, CBC, LIVP, BMP, FT4 #### [facility] [address] [place] [address] Field Sales Trainer: Yosi Espinal MD AST [Catalytic activity/Vol] 26 U/L Normal <32 [facility] Comment on above: Performed By: #### T SHX, CBC, LIVP, BMP, FT4 #### [facility] [address] [place] [phone] Field Sales Trainer: Yosi Espinal MD Bilirubin Ql (U) 0.23 mg/dL Low 0.3-1.2 [facility] Comment on above: Performed By: #### T SHX, CBC, LIVP, BMP, FT4 #### [facility] [address] [place] [address] Field Sales Trainer: Yosi Espinal MD Bilirubin, Indirect CANNOT BE CALCULATED Normal 0.00-1 .00 [facility] Comment on above: Performed By: #### T SHX, CBC, LIVP, BMP, FT4 #### [facility] [address] [place] [phone] Field Sales Trainer: Yosi Espinal MD Bilirubin.direct [Mass/Vol] mg/dL Normal <0.31 [facility] Comment on above: Performed By: #### T SHX, CBC, LIVP, BMP, FT4 #### [facility] [address] [place] [address] Field Sales Trainer: Yosi Espinal MD Protein [Mass/Vol] 5.4 g/dL Low 6.4-8.3 [facility] Comment on above: Performed By: #### T SHX, CBC, LIVP, BMP, FT4 #### [facility] [address] [place] [address] Field Sales Trainer: Yosi Espinal MD Globulin (S) [Mass/Vol] NOT REPORTED Normal 1.5-3.8 [facility] Comment on above: Performed By: #### T SHX, CBC, LIVP, BMP, FT4 #### [facility] [address] [place] [address] Field Sales Trainer: Yosi Espinal MD NM BONE SCAN 3 PHASEon 04-25 NM BONE SCAN 3 PHASE EXAMINATION: THREE PHASE BONE SCAN 04/25/2020 8:16 am TECHNIQUE: The patient was injected intravenously with 28 mCi of 99 mTc MDP. Initial blood flow and pool images of the pelvis were acquired. After 3 hours, delayed bone images were acquired. COMPARISON: CT pelvis one day earlier HISTORY: ORDERING SYSTEM PROVIDED HISTORY: Destructive lesion right ischial tuberosity on CT scan. Osteomyelitis versus osseous destructive process. BMI of 62. FINDINGS: Images are limited due to the patient's condition and extremely large body habitus. Flow and blood pool images are grossly unremarkable. No evidence of hyperemia in the patient's right ischial tuberosity. Delayed images show heterogenous radiotracer distribution in the right ischial tuberosity region. There are areas of diminished activity which may be related to rapid bone turnover. IMPRESSION: 1. Study limited due to patient's condition and morbid obesity. 2. No definite evidence of hyperemia. 3. Heterogeneous uptake of radiotracer in the right ischial bone where the patient has an expansile lytic lesion. No abnormal increased activity. Decreased radiotracer uptake may be related to rapid bone turnover. Findings suspicious for metastatic disease rather than infection. Renal cell carcinoma, thyroid carcinoma and breast carcinoma would be likely etiology in the event of metastatic etiology. 4. Favor neoplastic bony destructive process over infectious process. RECOMMENDATIONS: Tissue sampling may be required for definitive diagnosis. Given findings suspicious for lytic metastatic disease, suggest assessment for thyroid and breast cancer. Ultrasound of the kidneys was performed demonstrating no renal mass. Interpreted by: Candis Mckeon MD Signed by: Candis Mckeon MD 04/25/20 Final result Normal [facility] 1. Study limited due to patient's condition and morbid obesity. 2. No definite evidence of hyperemia. 3. Heterogeneous uptake of radiotracer in the right ischial bone where the patient has an expansile lytic lesion. No abnormal increased activity. Decreased radiotracer uptake may be related to rapid bone turnover. Findings suspicious for metastatic disease rather than infection. Renal cell carcinoma, thyroid carcinoma and breast carcinoma would be likely etiology in the event of metastatic etiology. 4. Favor neoplastic bony destructive process over infectious process. RECOMMENDATIONS: Tissue sampling may be required for definitive diagnosis. Given findings suspicious for lytic metastatic disease, suggest assessment for thyroid and breast cancer. Ultrasound of the kidneys was performed demonstrating no renal mass. [place] EXAMINATION: THREE P HASE BONE SCAN 04/25/2020 8:16 am TECHNIQUE: The patient was injected intravenously with 28 mCi of 99 mTc MDP. Initial blood flow and pool images of the pelvis were acquired. After 3 hours, delayed bone images were acquired. COMPARISON: CT pelvis one day earlier HISTORY: ORDERING SYSTEM PROVIDED HISTORY: Destructive lesion right ischial tuberosity on CT scan. Osteomyelitis versus osseous destructive process. BMI of 62. FINDINGS: Images are limited due to the patient's condition and extremely large body habitus. Flow and blood pool images are grossly unremarkable. No evidence of hyperemia in the patient's right ischial tuberosity. Delayed images show heterogenous radiotracer distribution in the right ischial tuberosity region. There are areas of diminished activity which may be related to rapid bone turnover. [place], [place] Ros[place], Mhpn Incoming Radiant Results From [facility] - 04/25/2020 6:46 PM EST EXAMINATION: THREE PHASE BONE SCAN 04/25/2020 8:16 am TECHNIQUE: The patient was injected intravenously with 28 mCi of 99 mTc MDP. Initial blood flow and pool images of the pelvis were acquired. After 3 hours, delayed bone images were acquired. COMPARISON: CT pelvis one day earlier HISTORY: ORDERING SYSTEM PROVIDED HISTORY: Destructive lesion right ischial tuberosity on CT scan. Osteomyelitis versus osseous destructive process. BMI of 62. FINDINGS: Images are limited due to the patient's condition and extremely large body habitus. Flow and blood pool images are grossly unremarkable. No evidence of hyperemia in the patient's right ischial tuberosity. Delayed images show heterogenous radiotracer distribution in the right ischial tuberosity region. There are areas of diminished activity which may be related to rapid bone turnover. IMPRESSION: 1. Study limited due to patient's condition and morbid obesity. 2. No definite evidence of hyperemia. 3. Heterogeneous uptake of radiotracer in the right ischial bone where the patient has an expansile lytic lesion. No abnormal increased activity. Decreased radiotracer uptake may be related to rapid bone turnover. Findings suspicious for metastatic disease rather than infection. Renal cell carcinoma, thyroid carcinoma and breast carcinoma would be likely etiology in the event of metastatic etiology. 4. Favor neoplastic bony destructive process over infectious process. RECOMMENDATIONS: Tissue sampling may be required for definitive diagnosis. Given findings suspicious for lytic metastatic disease, suggest assessment for thyroid and breast cancer. Ultrasound of the kidneys was performed demonstrating no renal mass. [facility] [place] POC Glucose Fingerstickon Glucose [Mass/Vol] 95 mg/dL 65 - 105 mg/dL [place] Glucose [Mass/Vol] 96 mg/dL 65 - 105 mg/dL [place] Glucose [Mass/Vol] 71 mg/dL 65 - 105 mg/dL [place] Glucose [Mass/Vol] 79 mg/dL 65 - 105 mg/dL [place] Surgical Pathologyon 020 Surgical Pathology (NOTE) -- Diagnosis -- BONE, RIGHT ISCHIUM, IMAGE GUIDED BONE BIOPSY: - BONE AND MARROW NECROSIS WITH GRANULATION TISSUE AND BONE REMODELING. - SPECIAL STAINS APPEAR NEGATIVE FOR MICROORGANISMS (BACTERIAL, FUNGAL OR MYCOBACTERIAL). - PANKERATIN IMMUNOSTAIN IS NEGATIVE FOR METASTATIC CARCINOMA. - SEE COMMENT. -- Diagnosis Comment -- THERE IS NO EVIDENCE OF MALIGNANCY IN THE SECTIONS, HOWEVER THERE IS ALSO NO EVIDENCE OF AN IDENTIFIABLE INFECTIOUS ETIOLOGY. CONSIDERATION FOR A SURGICAL INCISIONAL BIOPSY AT A FUTURE DATE (BOTH FOR ROUTINE HISTOLOGY WELL TISSUE MICROBIOLOGICAL CULTURE) MAY BE FURTHER CONTRIBUTORY, IF THE PATIENT FAILS TO RESPOND TO CONSERVATIVE THERAPY. FINDINGS WERE DISCUSSED WITH DR. DIAZ ON 04/28/2020 AT 4:45 PM. Juan Luis Hoover M.D. Electronically Signed Out 04/28/2020 Clinical Information Pre-op Diagnosis: PROBABLE METS WITH BONY DESTRUCTION Operative Findings: R ISCHIAL BONE BX Operation Performed: RIGHT HIP ASPIRATE ISCHIUM BONE BIOPSY Source of Specimen 1: R ISCHIUM BONE BX Gross Description LISA MCDANIELS, RIGHT ISCHIUM BX Six penaloza-white cores and fragments from 0.2 to 1.7 cm and are 1.7 x 0.6 x 0.2 cm in aggregate. Entirely 2cs after short decalcification. mpb tm Intraoperative Diagnosis Pass 1: Fibroadipose tissue and inflammatory cells. Pass 2: Necrotic cells.Pass 3: Necrotic cells. Portion for culture. Pass 4: Inflammatory cells. Pass 5: Inflammatory cells. Adequate. (JET) Microscopic Description Sections show multiple cores of bone and fibroadipose tissue. The bone shows prominent areas of remodeling and necrosis, with marrow spaces with granulation tissue change. There are also areas of abrupt transition of necrotic bone to necrotic marrow. There is no definite evidence of cytologic atypia, neoplastic osteoid, or viable neoplasm in these sections. A pankeratin immunostain is negative for metastatic carcinoma. A Gram stain is negative for bacteria. A GMS stain is negative for fungal organisms. An acid-fast bacilli stain is negative for mycobacteria. Controls stain appropriately. Slides were reviewed with a second pathologist (ROSSY) who agrees with the diagnosis. SURGICAL PATHOLOGY CONSULTATION Patient Name: LISA MCDANIELS [facility] Rec: [id number] Path Number: [id number] [facility] ANATOMIC PATHOLOGY [address] [place] [phone] Normal [facility] Comment on above: Performed By: #### U MICAO, UAX #### [facility] [address] [place] [phone] Field Sales Trainer: Yosi Espinal MD T4, Freeon 04-25-2020 Thyroxine, Free 1.10 ng/dL 0.93 - 1.7 ng/dL [place] TSH w/reflex to FT4on 2019 TSH Qn 7.03 m[IU]/L High 0.30-5.00 [facility] Comment on above: Performed By: #### T SHX, CBC, LIVP, BMP, FT4 #### [facility] [address] [place] [address] [phone] Field Sales Trainer: Yosi Espinal MD TSH with Reflexon 04-25-2020 Interpretation and review of laboratory results Abnormal [place] TSH Qn 7.03 m[IU]/L High [place] Thyroxine, Freeon 04-25-2020 Thyroxine, Free 1.10 ng/dL Normal 0.93-1.70 [facility] Comment on above: Performed By: #### T SHX, CBC, LIVP, BMP, FT4 #### [facility] [address] [place] [address] [phone] Field Sales Trainer: Yosi Espinal MD AFP TUMOR MARKERon 0 AFP (Alpha Fetoprotein) 4.8 ug/L <8.4 [place] Comment on above: The [employer] ECLIA as say is used. Results obtained with different assay methods cannot be used interchangeably. APTTon 04-24-2020 aPTT Coag (Bld) [Time] 20.8 s Normal 20.5-30.5 [facility] Comment on above: Result Comment: IV Heparin Therapy Range: 48.6-77.8 Performed By: #### T SHX, CBC, LIVP, BMP, FT4 #### [facility] [address] [place] [address] [phone] Field Sales Trainer: Yosi Espinal MD aPTT Coag (Bld) [Time] 20.8 s [place] Comment on above: IV Heparin Therapy Range: 48.6-77.8 Alpha Fetoproteinon 04-24-20 20 Alpha Fetoprotein 4.8 ug/L Normal <8.4 [facility] Comment on above: Result Comment: The [employer] ECLIA assay is used. Results obtained with different assay methods cannot be used interchangeably. Performed By: #### U MICAO, UAX #### [facility] [address] [place] [phone] Field Sales Trainer: Yosi Espinal MD BASIC METABOLIC PANELon 04-08 Anion gap [Moles/Vol] 11 mmol/L 9 - 17 mmol/L [place] Bun/Cre Ratio NOT REPORTED [place] Calcium [Mass/Vol] 8.2 mg/dL Low 8.6 - 10. 4 mg/dL [place] Chloride [Moles/Vol] 109 mmol/L High 98 - 10 7 mmol/L [place] CO2 [Moles/Vol] 21 mmol/L 20 - 31 mmol/L [place] Creatinine [Mass/Vol] 0.82 mg/dL 0.5 - 0.9 mg/dL [place] GFR >60 >60 mL/min [place] GFR Non- >60 >60 mL/min [place] GFR/1.73 sq M predicted among non-blacks MDRD (S/P/Bld) [Vol rate/Area] NOT REPORTED [place] GFR/1.73 sq M predicted among non-blacks MDRD (S/P/Bld) [Vol rate/Area] [place] Comment on above: Average GFR for 30-3 9 years old: 107 mL/min/1.73sq m Chronic Kidney Disease: <60 mL/min/1.73sq m Kidney failure: <15 mL/min/1.73sq m eGFR calculated using average adult body mass. Additional eGFR calculator available at: http://www.Monkey Bizness/multiple_crcl_2012.htm Glucose [Mass/Vol] 96 mg/dL 70 - 99 mg/dL [place] Interpretation and review of laboratory results Abnormal [place] Potassium [Moles/Vol] 4.8 mmol/L 3.7 - 5.3 mmol/L [place] Sodium [Moles/Vol] 141 mmol/L 135 - 144 mmol/L [place] Urea nitrogen [Mass/Vol] 27 mg/dL High 6 - 20 mg/dL [place] Basic Metabolic Profon 04-24 (cont.) Normal [facility] Comment on above: Result Comment: Aver age GFR for 30-39 years old: 107 mL/min/1.73sq m Chronic Kidney Disease: <60 mL/min/1.73sq m Kidney failure: <15 mL/min/1.73sq m eGFR calculated using average adult body mass. Additional eGFR calculator available at: http://www.[employer]in[employer].Factabase/multiple_crcl_2012.htm Performed By: #### T SHX, CBC, LIVP, BMP, FT4 #### [facility] [address] [place] [id number] Field Sales Trainer: Yosi Espinal MD Anion gap [Moles/Vol] 11 mmol/L Normal 9-17 [facility] Comment on above: Performed By: #### T SHX, CBC, LIVP, BMP, FT4 #### [facility] [address] [place] [address] Field Sales Trainer: Yosi Espinal MD Calcium [Mass/Vol] 8.2 mg/dL Low 8.6-10.4 [facility] Comment on above: Performed By: #### T SHX, CBC, LIVP, BMP, FT4 #### [facility] [address] [place] [phone] Field Sales Trainer: Yosi Espinal MD Chloride [Moles/Vol] 109 mmol/L High 98-107 [facility] Comment on above: Performed By: #### T SHX, CBC, LIVP, BMP, FT4 #### [facility] [address] [place] [phone] Field Sales Trainer: Yosi Espinal MD CO2 [Moles/Vol] 21 mmol/L Normal 20-31 [facility] Comment on above: Performed By: #### T SHX, CBC, LIVP, BMP, FT4 #### [facility] [address] [place] [phone] Field Sales Trainer: Yosi Espinal MD Creatinine [Mass/Vol] 0.82 mg/dL Normal 0.50-0.90 [facility] Comment on above: Performed By: #### T SHX, CBC, LIVP, BMP, FT4 #### [facility] [address] [place] [address] Field Sales Trainer: Yosi Espinal MD GFR, Amer >60 Normal >60 [facility] Comment on above: Performed By: #### T SHX, CBC, LIVP, BMP, FT4 #### [facility] [address] [place] [address] Field Sales Trainer: Yosi Espinal MD GFR,non Amer >60 Normal >60 [facility] Comment on above: Performed By: #### T SHX, CBC, LIVP, BMP, FT4 #### [facility] [address] [place] [address] Field Sales Trainer: Yosi Espinal MD Glucose [Mass/Vol] 96 mg/dL Normal 70-99 [facility] Comment on above: Performed By: #### T SHX, CBC, LIVP, BMP, FT4 #### [facility] [address] [place] [address] Field Sales Trainer: Yosi Espinal MD Potassium [Moles/Vol] 4.8 mmol/L Normal 3.7-5.3 [facility] Comment on above: Performed By: #### T SHX, CBC, LIVP, BMP, FT4 #### [facility] [address] [place] [address] Field Sales Trainer: Yosi Espinal MD Sodium [Moles/Vol] 141 mmol/L Normal 135-144 [facility] Comment on above: Performed By: #### T SHX, CBC, LIVP, BMP, FT4 #### [facility] [address] [place] [address] Field Sales Trainer: Yosi Espinal MD Urea nitrogen [Mass/Vol] 27 mg/dL High 6-20 [facility] Comment on above: Performed By: #### T SHX, CBC, LIVP, BMP, FT4 #### [facility] [address] [place] [address] Field Sales Trainer: Yosi Espinal MD BUN/CRE Ratio NOT REPORTED Normal 9-20 [facility] Comment on above: Performed By: #### T SHX, CBC, LIVP, BMP, FT4 #### [facility] [address] [place] [address] Field Sales Trainer: Yosi Espinal MD Staging: NOT REPORTED Normal [facility] Comment on above: Performed By: #### T SHX, CBC, LIVP, BMP, FT4 #### [facility] [address] [place] [address] Field Sales Trainer: Yosi Espinal MD CA 125on 04-24-2020 CA 125 22 U/mL Normal <38 [facility] Comment on above: Performed By: #### C A125 #### [facility] [address] [place] [address] Field Sales Trainer: Yosi Espinal MD CA 125 22 U/mL <38 [place], [place] CA 19-9on 04-24-2020 CA 19-9 14 U/mL Normal 0-35 [facility] Comment on above: Result Comment: The Sinan ECLIA assay is used. Results obtained with different assay methods cannot be used interchangeably. Performed By: #### U MICAO, UAX #### [address] [address] Field Sales Trainer: Yosi Espinal MD CANCER ANTIGEN 19-9on 2019 CA 19-9 14 U/mL 0 - 35 U/mL [place], [place] Comment on above: The Sinan ECLIA as say is used. Results obtained with different assay methods cannot be used interchangeably. CBCon 04-24-2020 Erythrocyte distribution width (RBC) [Ratio] 20.3 % High 11.8-14.4 [facility] Comment on above: Performed By: #### T SHX, CBC, LIVP, BMP, FT4 #### [facility] [address] [place] [address] Field Sales Trainer: Yosi Espinal MD Hematocrit (Bld) [Volume fraction] 31.1 % Low 36.3-47.1 [facility] Comment on above: Performed By: #### T SHX, CBC, LIVP, BMP, FT4 #### [address] [address] Field Sales Trainer: Yosi Espinal MD Hemoglobin (Bld) [Mass/Vol] 9.1 g/dL Low 11.9-15.1 [facility] Comment on above: Performed By: #### T SHX, CBC, LIVP, BMP, FT4 #### [address] [address] Field Sales Trainer: Yosi Espinal MD MCH (RBC) [Entitic mass] 25.4 pg Normal 25.2-33.5 [facility] Comment on above: Performed By: #### T SHX, CBC, LIVP, BMP, FT4 #### [address] [address] Field Sales Trainer: Yosi Espinal MD MCHC (RBC) [Mass/Vol] 29.3 g/dL Normal 28.4-34.8 [facility] Comment on above: Performed By: #### T SHX, CBC, LIVP, BMP, FT4 #### [address] [address] Field Sales Trainer: Yosi Espinal MD MCV (RBC) [Entitic vol] 86.9 fL Normal 82.6-102.9 [facility] Comment on above: Performed By: #### T SHX, CBC, LIVP, BMP, FT4 #### [address] [address] Field Sales Trainer: Yosi Espinal MD NRBC Automated 0.3 per 100 WBC High 0.0 [facility] Comment on above: Performed By: #### T SHX, CBC, LIVP, BMP, FT4 #### [facility] [address] [place] [address] Field Sales Trainer: Yosi Espinal MD Platelet mean volume (Bld) [Entitic vol] 10.4 fL Normal 8.1-13.5 [facility] Comment on above: Performed By: #### T SHX, CBC, LIVP, BMP, FT4 #### [facility] [address] [place] [address] Field Sales Trainer: Yosi Espinal MD Platelets (Bld) [#/Vol] 223 10*3/uL Normal 138-453 [facility] Comment on above: Performed By: #### T SHX, CBC, LIVP, BMP, FT4 #### [facility] [address] [place] [address] Field Sales Trainer: Yosi Espinal MD RBC (Bld) [#/Vol] 3.58 10*6/uL Low 3.95-5.11 [facility] Comment on above: Performed By: #### T SHX, CBC, LIVP, BMP, FT4 #### [facility] [address] [place] [address] Field Sales Trainer: Yosi Espinal MD WBC (Bld) [#/Vol] 7.6 10*3/uL Normal 3.5-11.3 [facility] Comment on above: Performed By: #### T SHX, CBC, LIVP, BMP, FT4 #### [facility] [address] [place] [address] Field Sales Trainer: Yosi Espinal MD Erythrocyte distribution width (RBC) [Ratio] 20.3 % High 11.8 - 14.4 % [place], [place] Hematocrit (Bld) [Volume fraction] 31.1 % Low 36.3 - 47.1 % [place] Hemoglobin (Bld) [Mass/Vol] 9.1 g/dL Low 11.9 - 15.1 g/dL [place] Interpretation and review of laboratory results Abnormal [place] MCH (RBC) [Entitic mass] 25.4 pg 25.2 - 33.5 pg [place] MCHC (RBC) [Mass/Vol] 29.3 g/dL 28.4 - 34.8 g/dL [place] MCV (RBC) [Entitic vol] 86.9 fL 82.6 - 102.9 fL [place] Platelet mean volume (Bld) [Entitic vol] 10.4 fL 8.1 - 13.5 fL [place] Platelets (Bld) [#/Vol] 223 10*3/uL [place] RBC (Bld) [#/Vol] 3.58 10*6/uL Low 3.95 - 5.1 1 m/uL [place] WBC (Bld) [#/Vol] 0.3 10*3/uL High 0.0 per 10 0 WBC [place] WBC (Bld) [#/Vol] 7.6 10*3/uL [place] CEAon 04-24-2020 CEA 2.2 ng/mL <3.9 [place] Comment on above: The [employer] ECLIA as say is used. Results obtained with different assay methods cannot be used interchangeably. CT HIP RIGHT W CONTRASTon CT HIP RIGHT W CONTRAST EXAMINATION: CT OF THE PELVIS WITH CONTRAST; CT OF THE RIGHT HIP WITH CONTRAST 04/24/2020 9:27 am TECHNIQUE: CT of the pelvis was performed with the administration of intravenous contrast. Multiplanar reformatted images are provided for review. Dose modulation, iterative reconstruction, and/or weight based adjustment of the mA/kV was utilized to reduce the radiation dose to as low as reasonably achievable.; CT of the right hip was performed with the administration of intravenous contrast. Multiplanar reformatted images are provided for review. Dose modulation, iterative reconstruction, and/or weight based adjustment of the mA/kV was utilized to reduce the radiation dose to as low as reasonably achievable. COMPARISON: Pelvis plain radiographs from 04/23/2020 HISTORY: ORDERING SYSTEM PROVIDED HISTORY: look for osteomyelitis and abscess right hip and pelvis area- and for pathological fracture TECHNOLOGIST PROVIDED HISTORY: pls minimize contrast; Include bone reformats per Ortho look for osteomyelitis and abscess right hip and pelvis area- and for pathological fracture Reason for Exam: look for osteomyelitis and abscess right hip and pelvis area- and for pathological fracture 39-year-old female with possible abscess and osteomyelitis in the right hip and pelvis area; evaluate for pathological fracture FINDINGS: No obvious ulceration is evident. Aggressive osseous destruction with fragmented ossific densities and ossific debris with destruction of the right ischial tuberosity and extending to the posterior column of the right acetabulum on image 90, series 2 through image 106, series 2 with heterogeneous low attenuation surrounding the ossific debris likely representing a combination of osteomyelitis and surrounding soft tissue phlegmon or a destructive metastatic lesion with surrounding soft tissue mass. Moderate bilateral hip osteoarthrosis. Both femoral heads are properly located within the bilateral acetabula without clear evidence for acute fracture, dislocation or femoral head flattening. Moderate osteophyte spurring at the lateral margins of the bilateral acetabula. Mild degenerative changes of the pubic symphysis. Leiva catheter is present within a collapsed urinary bladder. Moderate sigmoid colonic diverticulosis. Fat-containing lesion in the right adnexa measuring up to 6.3 x 4.4 cm likely representing dermoid cyst on image 78, series 2. No significant free fluid in the pelvis. Mild degenerative changes in the lumbar spine. Fat-containing large anterior abdominal wall hernia measuring up to 12.3 x 13.0 cm on image 83, series 4 and image 17, series 602. IMPRESSION: 1. Aggressive osseous destruction and fragmented ossific densities and ossific debris with destruction of the right ischial tuberosity extending to the posterior column of the right acetabulum. Differential consideration includes destructive metastatic lesion with surrounding soft tissue mass with superinfection not excluded versus a combination of osteomyelitis and surrounding phlegmonous changes. However, there is no ulceration extending to this region making primary infection less likely. Destructive metastatic lesion and/or pathological fracture/osseous destruction is suspected. 2. Moderate bilateral hip osteoarthrosis. 3. Moderate sigmoid colonic diverticulosis. 4. Mild degenerative changes at the pubic symphysis and lumbar spine. 5. Right adnexal 6.3 cm dermoid cyst. 6. Large fat-containing anterior abdominal wall hernia measuring 12.3 x 13 cm. The findings were sent to the [facility] at 10:39 am on 04/24/2020to be communicated to a licensed caregiver. Interpreted by: Indra Weir MD Signed by: Indra Weir MD 04/24/20 Final result Normal [facility] CT PELVIS W CONTRASTon 04-24 CT PELVIS W CONTRAST EXAMINATION: CT OF THE PELVIS WITH CONTRAST; CT OF THE RIGHT HIP WITH CONTRAST 04/24/2020 9:27 am TECHNIQUE: CT of the pelvis was performed with the administration of intravenous contrast. Multiplanar reformatted images are provided for review. Dose modulation, iterative reconstruction, and/or weight based adjustment of the mA/kV was utilized to reduce the radiation dose to as low as reasonably achievable.; CT of the right hip was performed with the administration of intravenous contrast. Multiplanar reformatted images are provided for review. Dose modulation, iterative reconstruction, and/or weight based adjustment of the mA/kV was utilized to reduce the radiation dose to as low as reasonably achievable. COMPARISON: Pelvis plain radiographs from 04/23/2020 HISTORY: ORDERING SYSTEM PROVIDED HISTORY: look for osteomyelitis and abscess right hip and pelvis area- and for pathological fracture TECHNOLOGIST PROVIDED HISTORY: pls minimize contrast; Include bone reformats per Ortho look for osteomyelitis and abscess right hip and pelvis area- and for pathological fracture Reason for Exam: look for osteomyelitis and abscess right hip and pelvis area- and for pathological fracture 39-year-old female with possible abscess and osteomyelitis in the right hip and pelvis area; evaluate for pathological fracture FINDINGS: No obvious ulceration is evident. Aggressive osseous destruction with fragmented ossific densities and ossific debris with destruction of the right ischial tuberosity and extending to the posterior column of the right acetabulum on image 90, series 2 through image 106, series 2 with heterogeneous low attenuation surrounding the ossific debris likely representing a combination of osteomyelitis and surrounding soft tissue phlegmon or a destructive metastatic lesion with surrounding soft tissue mass. Moderate bilateral hip osteoarthrosis. Both femoral heads are properly located within the bilateral acetabula without clear evidence for acute fracture, dislocation or femoral head flattening. Moderate osteophyte spurring at the lateral margins of the bilateral acetabula. Mild degenerative changes of the pubic symphysis. Leiva catheter is present within a collapsed urinary bladder. Moderate sigmoid colonic diverticulosis. Fat-containing lesion in the right adnexa measuring up to 6.3 x 4.4 cm likely representing dermoid cyst on image 78, series 2. No significant free fluid in the pelvis. Mild degenerative changes in the lumbar spine. Fat-containing large anterior abdominal wall hernia measuring up to 12.3 x 13.0 cm on image 83, series 4 and image 17, series 602. IMPRESSION: 1. Aggressive osseous destruction and fragmented ossific densities and ossific debris with destruction of the right ischial tuberosity extending to the posterior column of the right acetabulum. Differential consideration includes destructive metastatic lesion with surrounding soft tissue mass with superinfection not excluded versus a combination of osteomyelitis and surrounding phlegmonous changes. However, there is no ulceration extending to this region making primary infection less likely. Destructive metastatic lesion and/or pathological fracture/osseous destruction is suspected. 2. Moderate bilateral hip osteoarthrosis. 3. Moderate sigmoid colonic diverticulosis. 4. Mild degenerative changes at the pubic symphysis and lumbar spine. 5. Right adnexal 6.3 cm dermoid cyst. 6. Large fat-containing anterior abdominal wall hernia measuring 12.3 x 13 cm. The findings were sent to the Radiology Results Communication [facility] at 10:39 am on 04/24/2020to be communicated to a licensed caregiver. Interpreted by: Indra Weir MD Signed by: Indra Weir MD 04/24/20 Final result Normal [facility] Carcinoembry. Antig.on 04-24 Carcinoembry. Antig. 2.2 ng/mL Normal <3.9 [facility] Comment on above: Result Comment: The [employer] ECLIA assay is used. Results obtained with different assay methods cannot be used interchangeably. Performed By: #### U MICAO, UAX #### [facility] [place] [address] Field Sales Trainer: Yosi Espinal MD Cult,Urineon 04-24-2020 Cult,Urine Specimen Description .URINE Special Requests NOT REPORTED Culture ENTEROCOCCUS FAECALIS 50 to 100,000 CFU/ML STAPHYLOCOCCUS AUREUS 10 to 50,000 CFU/ML This isolate is methicillin susceptible. Report Status FINAL 04/24/2020 SUSCEPTIBILITY Organism ENTEROCOCCUS FAECALIS Method SAI Ampicillin <=2 SUSCEPTIBLE Penicillin NOT REPORTED Ciprofloxacin 1 SUSCEPTIBLE Erythromycin NOT REPORTED Gentamicin,High Level NOT REPORTED Levofloxacin 1 SUSCEPTIBLE Nitrofurantoin <=16 SUSCEPTIBLE Synercid NOT REPORTED Streptomycin,Hi Level NOT REPORTED Tetracycline >=16 RESISTANT Tigecycline NOT REPORTED Vancomycin 2 SUSCEPTIBLE SUSCEPTIBILITY Organism STAPHYLOCOCCUS AUREUS Method SAI Penicillin >=0.5 RESISTANT Cefoxitin Screen NOT REPORTED Ciprofloxacin NOT REPORTED Clindamycin NOT REPORTED Erythromycin NOT REPORTED Gentamicin <=0.5 SUSCEPTIBLE Gentamicin is used only in combination with other active agents that test susceptible. Induced Clind Resist NOT REPORTED Levofloxacin <=0.12 SUSCEPTIBLE Linezolid NOT REPORTED Moxifloxacin NOT REPORTED Nitrofurantoin <=16 SUSCEPTIBLE Oxacillin <=0.25 SUSCEPTIBLE Synercid NOT REPORTED Rifampin NOT REPORTED Tetracycline <=1 SUSCEPTIBLE Tigecycline NOT REPORTED Trimethoprim/Sulfa <=10 SUSCEPTIBLE Vancomycin NOT REPORTED Normal [facility] Comment on above: Performed By: #### T SHX, CBC, LIVP, BMP, FT4 #### [facility] [address] [place] [address] Field Sales Trainer: Yosi Espinal MD Culture, Urineon 04-24-2020 Culture ENTEROCOCCUS FAECALI S 50 to 100,000 CFU/ML Abnormal [place], [place] Culture STAPHYLOCOCCUS AUREU S 10 to 50,000 CFU/ML This isolate is methicillin susceptible. Abnormal [place] Interpretation and review of laboratory results Abnormal [place] Special Requests NOT REPORTED [place] Specimen Description .URINE [place], [place] Inf Dis Interventionon 04-24 Intervention: Targeted therapy Normal [facility] Comment on above: Performed By: #### T SHX, CBC, LIVP, BMP, FT4 #### [facility] [address] [place], [place] [id number] Field Sales Trainer: Yosi Espinal MD Infectious Disease Intervent ionon 04-24-2020 Intervention Targeted therapy [place], [place] Otheron 04-24-2020 EXAMINATION: CT OF T HE PELVIS WITH CONTRAST; CT OF THE RIGHT HIP WITH CONTRAST 04/24/2020 9:27 am TECHNIQUE: CT of the pelvis was performed with the administration of intravenous contrast. Multiplanar reformatted images are provided for review. Dose modulation, iterative reconstruction, and/or weight based adjustment of the mA/kV was utilized to reduce the radiation dose to as low as reasonably achievable.; CT of the right hip was performed with the administration of intravenous contrast. Multiplanar reformatted images are provided for review. Dose modulation, iterative reconstruction, and/or weight based adjustment of the mA/kV was utilized to reduce the radiation dose to as low as reasonably achievable. COMPARISON: Pelvis plain radiographs from 04/23/2020 HISTORY: ORDERING SYSTEM PROVIDED HISTORY: look for osteomyelitis and abscess right hip and pelvis area- and for pathological fracture TECHNOLOGIST PROVIDED HISTORY: pls minimize contrast; Include bone reformats per Ortho look for osteomyelitis and abscess right hip and pelvis area- and for pathological fracture Reason for Exam: look for osteomyelitis and abscess right hip and pelvis area- and for pathological fracture 39-year-old female with possible abscess and osteomyelitis in the right hip and pelvis area; evaluate for pathological fracture FINDINGS: No obvious ulceration is evident. Aggressive osseous destruction with fragmented ossific densities and ossific debris with destruction of the right ischial tuberosity and extending to the posterior column of the right acetabulum on image 90, series 2 through image 106, series 2 with heterogeneous low attenuation surrounding the ossific debris likely representing a combination of osteomyelitis and surrounding soft tissue phlegmon or a destructive metastatic lesion with surrounding soft tissue mass. Moderate bilateral hip osteoarthrosis. Both femoral heads are properly located within the bilateral acetabula without clear evidence for acute fracture, dislocation or femoral head flattening. Moderate osteophyte spurring at the lateral margins of the bilateral acetabula. Mild degenerative changes of the pubic symphysis. Leiva catheter is present within a collapsed urinary bladder. Moderate sigmoid colonic diverticulosis. Fat-containing lesion in the right adnexa measuring up to 6.3 x 4.4 cm likely representing dermoid cyst on image 78, series 2. No significant free fluid in the pelvis. Mild degenerative changes in the lumbar spine. Fat-containing large anterior abdominal wall hernia measuring up to 12.3 x 13.0 cm on image 83, series 4 and image 17, series 602. [facility]- [place], [place], [facility] Incoming Radiant Results From [facility] - 04/24/2020 2:17 PM EST EXAMINATION: CT OF THE PELVIS WITH CONTRAST; CT OF THE RIGHT HIP WITH CONTRAST 04/24/2020 9:27 am TECHNIQUE: CT of the pelvis was performed with the administration of intravenous contrast. Multiplanar reformatted images are provided for review. Dose modulation, iterative reconstruction, and/or weight based adjustment of the mA/kV was utilized to reduce the radiation dose to as low as reasonably achievable.; CT of the right hip was performed with the administration of intravenous contrast. Multiplanar reformatted images are provided for review. Dose modulation, iterative reconstruction, and/or weight based adjustment of the mA/kV was utilized to reduce the radiation dose to as low as reasonably achievable. COMPARISON: Pelvis plain radiographs from 04/23/2020 HISTORY: ORDERING SYSTEM PROVIDED HISTORY: look for osteomyelitis and abscess right hip and pelvis area- and for pathological fracture TECHNOLOGIST PROVIDED HISTORY: pls minimize contrast; Include bone reformats per Ortho look for osteomyelitis and abscess right hip and pelvis area- and for pathological fracture Reason for Exam: look for osteomyelitis and abscess right hip and pelvis area- and for pathological fracture 39-year-old female with possible abscess and osteomyelitis in the right hip and pelvis area; evaluate for pathological fracture FINDINGS: No obvious ulceration is evident. Aggressive osseous destruction with fragmented ossific densities and ossific debris with destruction of the right ischial tuberosity and extending to the posterior column of the right acetabulum on image 90, series 2 through image 106, series 2 with heterogeneous low attenuation surrounding the ossific debris likely representing a combination of osteomyelitis and surrounding soft tissue phlegmon or a destructive metastatic lesion with surrounding soft tissue mass. Moderate bilateral hip osteoarthrosis. Both femoral heads are properly located within the bilateral acetabula without clear evidence for acute fracture, dislocation or femoral head flattening. Moderate osteophyte spurring at the lateral margins of the bilateral acetabula. Mild degenerative changes of the pubic symphysis. Leiva catheter is present within a collapsed urinary bladder. Moderate sigmoid colonic diverticulosis. Fat-containing lesion in the right adnexa measuring up to 6.3 x 4.4 cm likely representing dermoid cyst on image 78, series 2. No significant free fluid in the pelvis. Mild degenerative changes in the lumbar spine. Fat-containing large anterior abdominal wall hernia measuring up to 12.3 x 13.0 cm on image 83, series 4 and image 17, series 602. IMPRESSION: 1. Aggressive osseous destruction and fragmented ossific densities and ossific debris with destruction of the right ischial tuberosity extending to the posterior column of the right acetabulum. Differential consideration includes destructive metastatic lesion with surrounding soft tissue mass with superinfection not excluded versus a combination of osteomyelitis and surrounding phlegmonous changes. However, there is no ulceration extending to this region making primary infection less likely. Destructive metastatic lesion and/or pathological fracture/osseous destruction is suspected. 2. Moderate bilateral hip osteoarthrosis. 3. Moderate sigmoid colonic diverticulosis. 4. Mild degenerative changes at the pubic symphysis and lumbar spine. 5. Right adnexal 6.3 cm dermoid cyst. 6. Large fat-containing anterior abdominal wall hernia measuring 12.3 x 13 cm. The findings were sent to the Radiology Results Communication Center at 10:39 am on 04/24/2020to be communicated to a licensed caregiver. [place], [place] 1. Aggressive osseou s destruction and fragmented ossific densities and ossific debris with destruction of the right ischial tuberosity extending to the posterior column of the right acetabulum. Differential consideration includes destructive metastatic lesion with surrounding soft tissue mass with superinfection not excluded versus a combination of osteomyelitis and surrounding phlegmonous changes. However, there is no ulceration extending to this region making primary infection less likely. Destructive metastatic lesion and/or pathological fracture/osseous destruction is suspected. 2. Moderate bilateral hip osteoarthrosis. 3. Moderate sigmoid colonic diverticulosis. 4. Mild degenerative changes at the pubic symphysis and lumbar spine. 5. Right adnexal 6.3 cm dermoid cyst. 6. Large fat-containing anterior abdominal wall hernia measuring 12.3 x 13 cm. The findings were sent to the [facility] at 10:39 am on 04/24/2020to be communicated to a licensed caregiver. [place] POC Glucose Fingerstickon Glucose [Mass/Vol] 90 mg/dL 65 - 105 mg/dL [place] Glucose [Mass/Vol] 88 mg/dL 65 - 105 mg/dL [place] Glucose [Mass/Vol] 69 mg/dL 65 - 105 mg/dL [place] Glucose [Mass/Vol] 90 mg/dL 65 - 105 mg/dL [place] PROTIME-INRon 04-24-2020 INR Coag (PPP) [Relative time] 1.0 {INR} [place] Comment on above: Therapeutic Range: Moderate Anticoagulant Intensity: INR = 2.0-3.0 High Anticoagulant Intensity: INR = 2.5-3.5 PT Coag (PPP) [Time] 10.4 s [facility] [place], [place] PTon 04-24-2020 INR Coag (PPP) [Relative time] 1.0 {INR} Normal [facility] Comment on above: Result Comment: Therapeutic Range: Moderate Anticoagulant Intensity: INR = 2.0-3.0 High Anticoagulant Intensity: INR = 2.5-3.5 Performed By: #### T SHX, CBC, LIVP, BMP, FT4 #### [facility] [address] [place], [place] [id number] Field Sales Trainer: Yosi Espinal MD PT Coag (PPP) [Time] 10.4 s Normal 9.0-12.0 [facility] Comment on above: Performed By: #### T SHX, CBC, LIVP, BMP, FT4 #### [facility] [address] [place], [place] [id number] Field Sales Trainer: Yosi Espinal MD XR CHEST (SINGLE VIEW FRONTA L)on 04-24-2020 XR CHEST (SINGLE VIEW FRONTAL) EXAMINATION: ONE XRAY VIEW OF THE CHEST 04/24/2020 1:01 pm COMPARISON: None. HISTORY: ORDERING SYSTEM PROVIDED HISTORY: infection TECHNOLOGIST PROVIDED HISTORY: infection FINDINGS: There is suboptimal inspiration. Right central venous catheter with tip in the superior vena cava. The cardiac size is mildly enlarged. Opacity seen in the right lower lobe suggesting atelectasis or possible infiltrate. Pulmonary vascularity appears hazy and indistinct. Widening of the mediastinum which could be secondary to technique.No acute bony abnormalities. The hilar structures are normal. IMPRESSION: Right basilar atelectasis versus infiltrate. Evidence of pulmonary vascular congestion Widening of the mediastinum. Consider CT for further workup if clinically indicated Interpreted by: Adalberto Reese MD Signed by: Adalberto Reese MD 04/24/20 Final result Normal [facility] EXAMINATION: ONE XRA Y VIEW OF THE CHEST 04/24/2020 1:01 pm COMPARISON: None. HISTORY: ORDERING SYSTEM PROVIDED HISTORY: infection TECHNOLOGIST PROVIDED HISTORY: infection FINDINGS: There is suboptimal inspiration. Right central venous catheter with tip in the superior vena cava. The cardiac size is mildly enlarged. Opacity seen in the right lower lobe suggesting atelectasis or possible infiltrate. Pulmonary vascularity appears hazy and indistinct. Widening of the mediastinum which could be secondary to technique.No acute bony abnormalities. The hilar structures are normal. [place], [place], [place] Incoming Radiant Results From [facility] - 04/24/2020 4:41 PM EST EXAMINATION: ONE XRAY VIEW OF THE CHEST 04/24/2020 1:01 pm COMPARISON: None. HISTORY: ORDERING SYSTEM PROVIDED HISTORY: infection TECHNOLOGIST PROVIDED HISTORY: infection FINDINGS: There is suboptimal inspiration. Right central venous catheter with tip in the superior vena cava. The cardiac size is mildly enlarged. Opacity seen in the right lower lobe suggesting atelectasis or possible infiltrate. Pulmonary vascularity appears hazy and indistinct. Widening of the mediastinum which could be secondary to technique.No acute bony abnormalities. The hilar structures are normal. IMPRESSION: Right basilar atelectasis versus infiltrate. Evidence of pulmonary vascular congestion Widening of the mediastinum. Consider CT for further workup if clinically indicated [place] Right basilar atelectasis versus infiltrate. Evidence of pulmonary vascular congestion Widening of the mediastinum. Consider CT for further workup if clinically indicated [place] BASIC METABOLIC PANELon 12- Anion gap [Moles/Vol] 7 mmol/L Low 9 - 17 mmol/L [place] Bun/Cre Ratio NOT REPORTED [place] Calcium [Mass/Vol] 8.0 mg/dL Low 8.6 - 10. 4 mg/dL [place] Chloride [Moles/Vol] 111 mmol/L High 98 - 10 7 mmol/L [place] CO2 [Moles/Vol] 22 mmol/L 20 - 31 mmol/L [place] Creatinine [Mass/Vol] 0.9 mg/dL 0.5 - 0.9 mg/dL [place] GFR >60 >60 mL/min [place] GFR Non- >60 >60 mL/min [place] GFR/1.73 sq M predicted among non-blacks MDRD (S/P/Bld) [Vol rate/Area] [place] Comment on above: Average GFR for 30-3 9 years old: 107 mL/min/1.73sq m Chronic Kidney Disease: <60 mL/min/1.73sq m Kidney failure: <15 mL/min/1.73sq m eGFR calculated using average adult body mass. Additional eGFR calculator available at: http://www.Monkey Bizness/multiple_crcl_2012.htm GFR/1.73 sq M predicted among non-blacks MDRD (S/P/Bld) [Vol rate/Area] NOT REPORTED [place] Glucose [Mass/Vol] 150 mg/dL High 70 - 99 mg/dL [place] Interpretation and review of laboratory results Abnormal [place] Potassium [Moles/Vol] 4.5 mmol/L 3.7 - 5.3 mmol/L [place] Sodium [Moles/Vol] 140 mmol/L 135 - 144 mmol/L [place] Urea nitrogen [Mass/Vol] 29 mg/dL High 6 - 20 mg/dL [place] Basic Metabolic Profon 04-23 (cont.) Normal [facility] Comment on above: Result Comment: Aver age GFR for 30-39 years old: 107 mL/min/1.73sq m Chronic Kidney Disease: <60 mL/min/1.73sq m Kidney failure: <15 mL/min/1.73sq m eGFR calculated using average adult body mass. Additional eGFR calculator available at: http://www.Monkey Bizness/multiple_crcl_2011.htm Performed By: #### T SHX, CBC, LIVP, BMP, FT4 #### [facility] [address] [place] [id number] Field Sales Trainer: Yosi Espinal MD Anion gap [Moles/Vol] 7 mmol/L Low 9-17 [facility] Comment on above: Performed By: #### T SHX, CBC, LIVP, BMP, FT4 #### [facility] [address] [place] [address] Field Sales Trainer: Yosi Espinal MD Calcium [Mass/Vol] 8.0 mg/dL Low 8.6-10.4 [facility] Comment on above: Performed By: #### T SHX, CBC, LIVP, BMP, FT4 #### [facility] [address] [place] [address] Field Sales Trainer: Yosi Espinal MD Chloride [Moles/Vol] 111 mmol/L High 98-107 [facility] Comment on above: Performed By: #### T SHX, CBC, LIVP, BMP, FT4 #### [facility] [address] [place] [address] Field Sales Trainer: Yosi Espinal MD CO2 [Moles/Vol] 22 mmol/L Normal 20-31 [facility] Comment on above: Performed By: #### T SHX, CBC, LIVP, BMP, FT4 #### [facility] [address] [place] [address] Field Sales Trainer: Yosi Espinal MD Creatinine [Mass/Vol] 0.90 mg/dL Normal 0.50-0.90 [facility] Comment on above: Performed By: #### T SHX, CBC, LIVP, BMP, FT4 #### [facility] [address] [place] [address] Field Sales Trainer: Yosi Espinal MD GFR, Amer >60 Normal >60 [facility] Comment on above: Performed By: #### T SHX, CBC, LIVP, BMP, FT4 #### [facility] [address] [place] [address] Field Sales Trainer: Yosi Espinal MD GFR,non Amer >60 Normal >60 [facility] Comment on above: Performed By: #### T SHX, CBC, LIVP, BMP, FT4 #### [facility] [address] [place] [address] Field Sales Trainer: Yosi Espinal MD Glucose [Mass/Vol] 150 mg/dL High 70-99 [facility] Comment on above: Performed By: #### T SHX, CBC, LIVP, BMP, FT4 #### [facility] [address] [place] [address] Field Sales Trainer: Yosi Espinal MD Potassium [Moles/Vol] 4.5 mmol/L Normal 3.7-5.3 [facility] Comment on above: Performed By: #### T SHX, CBC, LIVP, BMP, FT4 #### [facility] [address] [place] [address] Field Sales Trainer: Yosi Espinal MD Sodium [Moles/Vol] 140 mmol/L Normal 135-144 [facility] Comment on above: Performed By: #### T SHX, CBC, LIVP, BMP, FT4 #### [facility] [address] [place] [address] Field Sales Trainer: Yosi Espinal MD Urea nitrogen [Mass/Vol] 29 mg/dL High 6-20 [facility] Comment on above: Performed By: #### T SHX, CBC, LIVP, BMP, FT4 #### [facility] [address] [place] [address] Field Sales Trainer: Yosi Espinal MD BUN/CRE Ratio NOT REPORTED Normal 9-20 [facility] Comment on above: Performed By: #### T SHX, CBC, LIVP, BMP, FT4 #### [facility] [address] [place] [address] Field Sales Trainer: Yosi Espinal MD Staging: NOT REPORTED Normal [facility] Comment on above: Performed By: #### T SHX, CBC, LIVP, BMP, FT4 #### [facility] [address] [place] [address] Field Sales Trainer: Yosi Espinal MD C-REACTIVE PROTEINon 020 CRP [Mass/Vol] 72.7 mg/L High 0 - 5 mg/L [place] Interpretation and review of laboratory results Abnormal [place] C-Reactive Proteinon 020 CRP [Mass/Vol] 72.7 mg/L High 0.0-5.0 [facility] Comment on above: Performed By: #### T SHX, CBC, LIVP, BMP, FT4 #### [facility] [address] [place] [address] Field Sales Trainer: Yosi Espinal MD CBC Auto Differentialon 04-08 Basophils (Bld) [#/Vol] 10*3/uL [place] Basophils/100 WBC (Bld) 0 % 0 - 2 % [place] Differential Type NOT REPORTED [place] Eosinophils (Bld) [#/Vol] 0.03 10*3/uL [place] Eosinophils/100 WBC (Bld) 0 % Low 1 - 4 % [place] Erythrocyte distribution width (RBC) [Ratio] 19.9 % High 11.8 - 14.4 % [place] Hematocrit (Bld) [Volume fraction] 27.6 % Low 36.3 - 47.1 % [place] Hemoglobin (Bld) [Mass/Vol] 8.4 g/dL Low 11.9 - 15.1 g/dL [place] Immature granulocytes (Bld) [#/Vol] 0.04 10*3/uL [place] Immature granulocytes (Bld) [#/Vol] 1 % High 0 [place] Interpretation and review of laboratory results Abnormal [place] Lymphocytes (Bld) [#/Vol] 1.74 10*3/uL [place] Lymphocytes/100 WBC (Bld) 21 % Low 24 - 43 % [place] MCH (RBC) [Entitic mass] 24.9 pg Low 25.2 - 33.5 pg [place] MCHC (RBC) [Mass/Vol] 30.4 g/dL 28.4 - 34.8 g/dL [place] MCV (RBC) [Entitic vol] 81.9 fL Low 82.6 - 102.9 fL [place] Monocytes (Bld) [#/Vol] 0.55 10*3/uL [place] Monocytes/100 WBC (Bld) 7 % 3 - 12 % M [place] Platelet mean volume (Bld) [Entitic vol] 10.3 fL 8.1 - 13.5 fL [place] Platelets (Bld) [#/Vol] NOT REPORTED [place] Platelets (Bld) [#/Vol] 206 10*3/uL [place] RBC (Bld) [#/Vol] 3.37 10*6/uL Low 3.95 - 5.1 1 m/uL [place] RBC morphology finding Nom (Bld) ANISOCYTOSIS PRESENT [place] Comment on above: MICROCYTOSIS PRESENT Segmented neutrophils/100 WBC (Bld) 71 % High 36 - 65 % [place] Segs Absolute 5.79 [place] WBC (Bld) [#/Vol] 0.0 10*3/uL 0.0 per 10 0 WBC [place] WBC (Bld) [#/Vol] 8.2 10*3/uL [place] WBC Morphology NOT REPORTED [place] CBC with Diffon 04-23-2020 Abs. Basophil <0.03 Normal 0.00-0.20 [facility] Comment on above: Performed By: #### U KATHARINEO, UAX #### [facility] [address] [place], [place] [phone] Field Sales Trainer: Yosi Espinal MD Abs.Imm.Granulocyte 0.04 k/uL Normal 0.00-0.30 [facility] Comment on above: Performed By: #### U MICAO, UAX #### [facility] [address] [place], [place] [address] Field Sales Trainer: Yosi Espinal MD Abs.Neutrophil (Seg) 5.79 k/uL Normal 1.50-8.10 [facility] Comment on above: Performed By: #### U GAUDENCIO UAX #### [address] [address] Field Sales Trainer: Yosi Espinal MD Basophils/100 WBC (Bld) 0 % Normal 0-2 M [facility] Comment on above: Performed By: #### U GAUDENCIO, UAX #### [address] [address] Field Sales Trainer: Yosi Espinal MD Eosinophils (Bld) [#/Vol] 0.03 10*3/uL Normal 0.00-0.44 [facility] Comment on above: Performed By: #### U GAUDENCIO, UAX #### [address] [address] Field Sales Trainer: Yosi Espinal MD Eosinophils/100 WBC (Bld) 0 % Low 1-4 [facility] Comment on above: Performed By: #### U GAUDENCIO UAX #### [address] [address] Field Sales Trainer: Yosi Espinal MD Erythrocyte distribution width (RBC) [Ratio] 19.9 % High 11.8-14.4 [facility] Comment on above: Performed By: #### U GAUDENCIO UAX #### [address] [address] Field Sales Trainer: Yosi Espinal MD Hematocrit (Bld) [Volume fraction] 27.6 % Low 36.3-47.1 [facility] Comment on above: Performed By: #### U GAUDENCIO, UAX #### [address] [address] Field Sales Trainer: Yosi Espinal MD Hemoglobin (Bld) [Mass/Vol] 8.4 g/dL Low 11.9-15.1 [facility] Comment on above: Performed By: #### U GAUDENCIO, UAX #### [address] [address] Field Sales Trainer: Yosi Espinal MD Immature granulocytes (Bld) [#/Vol] 1 % High 0 [facility] Comment on above: Performed By: #### U GAUDENCIO, UAX #### [address] [address] Field Sales Trainer: Yosi Espinal MD Lymphocytes (Bld) [#/Vol] 1.74 10*3/uL Normal 1.10-3.70 [facility] Comment on above: Performed By: #### U GAUDENCIO, UAX #### [address] [address] Field Sales Trainer: Yosi Espinal MD Lymphocytes/100 WBC (Bld) 21 % Low 24-43 [facility] Comment on above: Performed By: #### Nayan RATLIFF UAX #### [address] [address] Field Sales Trainer: Yosi Espinal MD MCH (RBC) [Entitic mass] 24.9 pg Low 25.2-33.5 [facility] Comment on above: Performed By: #### Nayan RATLIFF UAX #### [address] [address] Field Sales Trainer: Yosi Espinal MD MCHC (RBC) [Mass/Vol] 30.4 g/dL Normal 28.4-34.8 [facility] Comment on above: Performed By: #### U GAUDENCIO, UAX #### [address] [address] Field Sales Trainer: Yosi Espinal MD MCV (RBC) [Entitic vol] 81.9 fL Low 82.6-102.9 M [facility] Comment on above: Performed By: #### U GAUDENCIO, UAX #### [address] [address] Field Sales Trainer: Yosi Espinal MD Monocytes (Bld) [#/Vol] 0.55 10*3/uL Normal 0.10-1.20 [facility] Comment on above: Performed By: #### U KATHARINEO, UAX #### [address] [address] Field Sales Trainer: Yosi Espinal MD Monocytes/100 WBC (Bld) 7 % Normal 3-12 [facility] Comment on above: Performed By: #### U GAUDENCIO, UAX #### [address] [address] Field Sales Trainer: Yosi Espinal MD Neutrophil (Seg) 71 % High 36-65 [facility] Comment on above: Performed By: #### U GAUDENCIO, UAX #### [address] [address] Field Sales Trainer: Yosi Espinal MD NRBC Automated 0.0 per 100 WBC Normal 0.0 [facility] Comment on above: Performed By: #### U GAUDENCIO, UAX #### [address] [address] Field Sales Trainer: Yosi Espinal MD Platelet mean volume (Bld) [Entitic vol] 10.3 fL Normal 8.1-13.5 [facility] Comment on above: Performed By: #### U GAUDENCIO, UAX #### [address] [address] Field Sales Trainer: Yosi Espinal MD Platelets (Bld) [#/Vol] 206 10*3/uL Normal 138-453 [facility] Comment on above: Performed By: #### U GAUDENCIO, UAX #### [address] [place] [address] Field Sales Trainer: Yosi Espinal MD RBC (Bld) [#/Vol] 3.37 10*6/uL Low 3.95-5.11 [facility] Comment on above: Performed By: #### U MICAO, UAX #### [facility] [address] [place] [address] Field Sales Trainer: Yosi Espinal MD RBC morphology finding Nom (Bld) ANISOCYTOSIS PRESENT Normal [facility] Comment on above: Result Comment: MICR OCYTOSIS PRESENT Performed By: #### U MICAO, UAX #### [facility] [address] [place] [address] Field Sales Trainer: Yosi Espinal MD WBC (Bld) [#/Vol] 8.2 10*3/uL Normal 3.5-11.3 [facility] Comment on above: Performed By: #### U MICAO, UAX #### [facility] [address] [place] [address] Field Sales Trainer: Yosi Espinal MD Auto Diff Performed NOT REPORTED Normal [facility] Comment on above: Performed By: #### U MICAO, UAX #### [facility] [address] [place] [address] Field Sales Trainer: Yosi Espinal MD Platelets (Bld) [#/Vol] NOT REPORTED Normal [facility] Comment on above: Performed By: #### U MICAO, UAX #### [facility] [address] [place] [address] Field Sales Trainer: Yosi Espinal MD WBC Morphology NOT REPORTED Normal [facility] Comment on above: Performed By: #### U MICAO, UAX #### [facility] [address] [place] [address] Field Sales Trainer: Yosi Espinal MD Calcium, Ionicon 04-23-2020 Calcium [Mass/Vol] 1.11 mmol/L Low 1.13-1.33 [facility] Comment on above: Performed By: #### I OCAL #### [facility] [address] [place], [place] [phone] Field Sales Trainer: Yosi Espinal MD Calcium, Ionizedon 0 Calcium [Mass/Vol] 1.11 mmol/L Low 1.13 - 1. 33 mmol/L [place] Interpretation and review of laboratory results Abnormal [place] Hematologyon 04-23-2020 INR Coag (Bld) [Relative time] NOT REPORTED [place] POC Glucose Fingerstickon Glucose [Mass/Vol] 119 mg/dL High 65 - 105 mg/dL [place] Interpretation and review of laboratory results Abnormal [place] Glucose [Mass/Vol] 113 mg/dL High 65 - 105 mg/dL [place] Interpretation and review of laboratory results Abnormal [place] Glucose [Mass/Vol] 124 mg/dL High 65 - 105 mg/dL [place] Interpretation and review of laboratory results Abnormal [place] Glucose [Mass/Vol] 116 mg/dL High 65 - 105 mg/dL [place] Interpretation and review of laboratory results Abnormal [place] SPECIMEN REJECTIONon 020 Ordered Test CDP [place] Reason for Rejection Unable to perform testing: Specimen clotted. [place] Specimen source Nom (Unsp spec) .BLOOD [place] - NOT REPORTED [place] Specimen Rejectionon 020 Reason for rejection Unable to perform testing: Specimen clotted. Normal [facility] Comment on above: Performed By: #### T SHX, CBC, LIVP, BMP, FT4 #### [facility] [address] [place], [place] [id number] Field Sales Trainer: Yosi Espinal MD Source of sample .BLOOD Normal [facility] Comment on above: Performed By: #### T SHX, CBC, LIVP, BMP, FT4 #### [facility] [address] [place], [place] [phone] Field Sales Trainer: Yosi Espinal MD Test ordered CDP Normal [facility] Comment on above: Performed By: #### T SHX, CBC, LIVP, BMP, FT4 #### [facility] [address] [place], [place] [phone] Field Sales Trainer: Yosi Espinal MD ----- NOT REPORTED Normal [facility] Comment on above: Performed By: #### T SHX, CBC, LIVP, BMP, FT4 #### [facility] [address] [place] [phone] Field Sales Trainer: Yosi Espinal MD VANCOMYCIN, RANDOMon 020 INR Coag (Bld) [Relative time] 12.6 ug/mL [place] Comment on above: Higher trough serum vancomycin concentrations of 15-20 ug/mL are recommended for complicated infections such as bacteremia, endocarditis, osteomyelitis, meningitis, and hospital acquired pneumonia. XR PELVIS (MIN 3 VIEWS)on XR PELVIS (MIN 3 VIEWS) EXAMINATION: ONE XRAY VIEW OF THE PELVIS 04/23/2020 7:05 pm COMPARISON: None. HISTORY: ORDERING SYSTEM PROVIDED HISTORY: Fracture. AP, inlet, outlet TECHNOLOGIST PROVIDED HISTORY: Fracture. AP, inlet, outlet Reason for Exam: ap, inlet, outlet - fx Acuity: Acute Type of Exam: Initial FINDINGS: Inadequate technique. There is of appears to be diastasis left SI joint. There is appears to be a fracture right inferior pubic ramus. Abnormal density of the inferior pubic ramus suggested. Further evaluation with CT of the pelvis is recommended IMPRESSION: Diastasis left SI joint suggested fracture of the right inferior pubic ramus possible of pathologic fracture cannot be excluded there is a inadequate evaluation of the pelvis due to technique and further evaluation with CT of the pelvis is recommended Interpreted by: Kris Mayes MD Signed by: Kris Mayes MD 04/23/20 Final result Normal [facility] Diastasis left SI palma int suggested fracture of the right inferior pubic ramus possible of pathologic fracture cannot be excluded there is a inadequate evaluation of the pelvis due to technique and further evaluation with CT of the pelvis is recommended [place] EXAMINATION: ONE XRA Y VIEW OF THE PELVIS 04/23/2020 7:05 pm COMPARISON: None. HISTORY: ORDERING SYSTEM PROVIDED HISTORY: Fracture. AP, inlet, outlet TECHNOLOGIST PROVIDED HISTORY: Fracture. AP, inlet, outlet Reason for Exam: ap, inlet, outlet - fx Acuity: Acute Type of Exam: Initial FINDINGS: Inadequate technique. There is of appears to be diastasis left SI joint. There is appears to be a fracture right inferior pubic ramus. Abnormal density of the inferior pubic ramus suggested. Further evaluation with CT of the pelvis is recommended [place], [place] Incoming Radiant Results From [facility] - 04/23/2020 7:52 PM EST EXAMINATION: ONE XRAY VIEW OF THE PELVIS 04/23/2020 7:05 pm COMPARISON: None. HISTORY: ORDERING SYSTEM PROVIDED HISTORY: Fracture. AP, inlet, outlet TECHNOLOGIST PROVIDED HISTORY: Fracture. AP, inlet, outlet Reason for Exam: ap, inlet, outlet - fx Acuity: Acute Type of Exam: Initial FINDINGS: Inadequate technique. There is of appears to be diastasis left SI joint. There is appears to be a fracture right inferior pubic ramus. Abnormal density of the inferior pubic ramus suggested. Further evaluation with CT of the pelvis is recommended IMPRESSION: Diastasis left SI joint suggested fracture of the right inferior pubic ramus possible of pathologic fracture cannot be excluded there is a inadequate evaluation of the pelvis due to technique and further evaluation with CT of the pelvis is recommended [place] Basic Metab w/rfx MGon 04-22 (cont.) Normal [facility] Comment on above: Result Comment: Aver age GFR for 30-39 years old: 107 mL/min/1.73sq m Chronic Kidney Disease: <60 mL/min/1.73sq m Kidney failure: <15 mL/min/1.73sq m eGFR calculated using average adult body mass. Additional eGFR calculator available at: http://www.[employer].Factabase/multiple_crcl_2012.htm Performed By: #### U DONYA RATLIFF #### [facility] [address] [place] [address] Field Sales Trainer: Yosi Espinal MD Anion gap [Moles/Vol] 10 mmol/L Normal 9-17 [facility] Comment on above: Performed By: #### U MICAO, UAX #### [facility] [address] [place] [address] Field Sales Trainer: Yosi Espinal MD Calcium [Mass/Vol] 7.9 mg/dL Low 8.6-10.4 [facility] Comment on above: Performed By: #### U MICAO, UAX #### [facility] [address] [place] [address] Field Sales Trainer: Yosi Espinal MD Chloride [Moles/Vol] 102 mmol/L Normal 98-107 [facility] Comment on above: Performed By: #### U MICAO, UAX #### [facility] [address] [place] [address] Field Sales Trainer: Yosi Espinal MD CO2 [Moles/Vol] 23 mmol/L Normal 20-31 [facility] Comment on above: Performed By: #### U MICAO, UAX #### [facility] [address] [place] [address] Field Sales Trainer: Yosi Espinal MD Creatinine [Mass/Vol] 1.86 mg/dL High 0.50-0.90 [facility] Comment on above: Performed By: #### U MICAO, UAX #### [facility] [address] [place] [address] Field Sales Trainer: Yosi Espinal MD GFR, Amer 37 mL/min Low >60 [facility] Comment on above: Performed By: #### U MICAO, UAX #### [facility] [address] [place] [address] Field Sales Trainer: Yosi Espinal MD GFR,non Amer 30 mL/min Low >60 [facility] Comment on above: Performed By: #### U MICAO, UAX #### [facility] [address] [place] [address] Field Sales Trainer: Yosi Espinal MD Glucose [Mass/Vol] 235 mg/dL High 70-99 [facility] Comment on above: Performed By: #### U MICAO, UAX #### [facility] [address] [place] [address] Field Sales Trainer: Yosi Espinal MD Potassium [Moles/Vol] 5.0 mmol/L Normal 3.7-5.3 [facility] Comment on above: Performed By: #### U MICAO, UAX #### [facility] [address] [place] [address] Field Sales Trainer: Yosi Espinal MD Sodium [Moles/Vol] 135 mmol/L Normal 135-144 [facility] Comment on above: Performed By: #### U MICAO, UAX #### [address] [address] Field Sales Trainer: Yosi Espinal MD Urea nitrogen [Mass/Vol] 34 mg/dL High 6-20 [facility] Comment on above: Performed By: #### U MICAO, UAX #### [address] [address] Field Sales Trainer: Yosi Espinal MD BUN/CRE Ratio NOT REPORTED Normal 9-20 [facility] Comment on above: Performed By: #### U MICAO, UAX #### [address] [address] Field Sales Trainer: Yosi Espinal MD Staging: NOT REPORTED Normal [facility] Comment on above: Performed By: #### U MICAO, UAX #### [facility] [address] [place] [address] Field Sales Trainer: Yosi Espinal MD CBCon 04-22-2020 Erythrocyte distribution width (RBC) [Ratio] 19.7 % High 11.8-14.4 [facility] Comment on above: Performed By: #### B C #### [address] [address] Field Sales Trainer: oYsi Espinal MD Hematocrit (Bld) [Volume fraction] 30.3 % Low 36.3-47.1 [facility] Comment on above: Performed By: #### B C #### [address] [address] Field Sales Trainer: Yosi Espinal MD Hemoglobin (Bld) [Mass/Vol] 8.9 g/dL Low 11.9-15.1 [facility] Comment on above: Performed By: #### B C #### [address] [address] Field Sales Trainer: Yosi Espinal MD MCH (RBC) [Entitic mass] 25.0 pg Low 25.2-33.5 [facility] Comment on above: Performed By: #### B C #### [address] [address] Field Sales Trainer: Yosi Espinal MD MCHC (RBC) [Mass/Vol] 29.4 g/dL Normal 28.4-34.8 [facility] Comment on above: Performed By: #### B C #### [address] [address] Field Sales Trainer: Yosi Espinal MD MCV (RBC) [Entitic vol] 85.1 fL Normal 82.6-102.9 [facility] Comment on above: Performed By: #### B C #### [address] [address] Field Sales Trainer: Yosi Espinal MD NRBC Automated 0.0 per 100 WBC Normal 0.0 [facility] Comment on above: Performed By: #### B C #### [address] [address] Field Sales Trainer: Yosi Espinal MD Platelet mean volume (Bld) [Entitic vol] 10.4 fL Normal 8.1-13.5 [facility] Comment on above: Performed By: #### B C #### [address] [address] Field Sales Trainer: Yosi Espinal MD Platelets (Bld) [#/Vol] 229 10*3/uL Normal 138-453 [facility] Comment on above: Performed By: #### B C #### [address] [address] Field Sales Trainer: Yosi Espinal MD RBC (Bld) [#/Vol] 3.56 10*6/uL Low 3.95-5.11 [facility] Comment on above: Performed By: #### B C #### [address] [address] Field Sales Trainer: Yosi Espinal MD WBC (Bld) [#/Vol] 8.5 10*3/uL Normal 3.5-11.3 [facility] Comment on above: Performed By: #### B C #### [address] [address] Field Sales Trainer: Yosi Espinal MD Erythrocyte distribution width (RBC) [Ratio] 19.7 % High 11.8 - 14.4 % [place] Hematocrit (Bld) [Volume fraction] 30.3 % Low 36.3 - 47.1 % [place] Hemoglobin (Bld) [Mass/Vol] 8.9 g/dL Low 11.9 - 15.1 g/dL [place] Interpretation and review of laboratory results Abnormal [place] MCH (RBC) [Entitic mass] 25.0 pg Low 25.2 - 33.5 pg [place] MCHC (RBC) [Mass/Vol] 29.4 g/dL 28.4 - 34.8 g/dL [place] MCV (RBC) [Entitic vol] 85.1 fL 82.6 - 102.9 fL [place] Platelet mean volume (Bld) [Entitic vol] 10.4 fL 8.1 - 13.5 fL [place] Platelets (Bld) [#/Vol] 229 10*3/uL [place] RBC (Bld) [#/Vol] 3.56 10*6/uL Low 3.95 - 5.1 1 m/uL [place] WBC (Bld) [#/Vol] 0.0 10*3/uL 0.0 per 10 0 WBC [place] WBC (Bld) [#/Vol] 8.5 10*3/uL [place] CKon 04-22-2020 Total CK 1058 U/L High 26 - 192 U/L [place] Chloride, Random Urineon Chloride, Ur 49 mmol/L [place] Comment on above: No normal range esta blished. Chloride,Random Uron 020 Cl Conc. 49 mmol/L Normal [facility] Comment on above: Result Comment: No n ormal range established. Performed By: #### T SHX, CBC, LIVP, BMP, FT4 #### [facility] [address] [place] [address] Field Sales Trainer: Yosi Espinal MD Comp Metabolic Pr/rfx MGon 1 06-23-2019 (cont.) Normal [facility] Comment on above: Result Comment: Aver age GFR for 30-39 years old: 107 mL/min/1.73sq m Chronic Kidney Disease: <60 mL/min/1.73sq m Kidney failure: <15 mL/min/1.73sq m eGFR calculated using average adult body mass. Additional eGFR calculator available at: http://www.Affinio.Factabase/multiple_crcl_2011.htm Performed By: #### B C #### [address] [address] Field Sales Trainer: Yosi Espinal MD Albumin [Mass/Vol] 2.6 g/dL Low 3.5-5.2 [facility] Comment on above: Performed By: #### B C #### [address] [address] Field Sales Trainer: Yosi Espinal MD Albumin/Globulin [Mass ratio] 0.8 {ratio} Low 1.0-2.5 [facility] Comment on above: Performed By: #### B C #### [address] [address] Field Sales Trainer: Yosi Espinal MD Alkaline Phos 89 U/L Normal 35-104 [facility] Comment on above: Performed By: #### B C #### [address] [address] Field Sales Trainer: Yosi Espinal MD ALT [Catalytic activity/Vol] 25 U/L Normal 5-33 [facility] Comment on above: Performed By: #### B C #### [address] [address] Field Sales Trainer: Yosi Espinal MD Anion gap [Moles/Vol] 10 mmol/L Normal 9-17 [facility] Comment on above: Performed By: #### B C #### [address] [address] Field Sales Trainer: Yosi Espinal MD AST [Catalytic activity/Vol] 39 U/L High <32 [facility] Comment on above: Performed By: #### B C #### [address] [address] Field Sales Trainer: Yosi Espinal MD Bilirubin Ql (U) 0.62 mg/dL Normal 0.3-1.2 [facility] Comment on above: Performed By: #### B C #### [address] [address] Field Sales Trainer: Yosi Espinal MD Calcium [Mass/Vol] 8.2 mg/dL Low 8.6-10.4 [facility] Comment on above: Performed By: #### B C #### [address] [address] Field Sales Trainer: Yosi Espinal MD Chloride [Moles/Vol] 106 mmol/L Normal 98-107 [facility] Comment on above: Performed By: #### B C #### [address] [address] Field Sales Trainer: Yosi Espinal MD CO2 [Moles/Vol] 23 mmol/L Normal 20-31 [facility] Comment on above: Performed By: #### B C #### [address] [address] Field Sales Trainer: Yosi Espinal MD Creatinine [Mass/Vol] 1.42 mg/dL High 0.50-0.90 [facility] Comment on above: Performed By: #### B C #### [address] [address] Field Sales Trainer: Yosi Espinal MD GFR, Amer 50 mL/min Low >60 [facility] Comment on above: Performed By: #### B C #### [address] [address] Field Sales Trainer: Yosi Espinal MD GFR,non Amer 41 mL/min Low >60 [facility] Comment on above: Performed By: #### B C #### [address] [address] Field Sales Trainer: Yosi Espinal MD Glucose [Mass/Vol] 206 mg/dL High 70-99 [facility] Comment on above: Performed By: #### B C #### [address] [address] Field Sales Trainer: Yosi Espinal MD Potassium [Moles/Vol] 4.5 mmol/L Normal 3.7-5.3 [facility] Comment on above: Performed By: #### B C #### [address] [address] Field Sales Trainer: Yosi Espinal MD Protein [Mass/Vol] 5.7 g/dL Low 6.4-8.3 [facility] Comment on above: Performed By: #### B C #### [address] [address] Field Sales Trainer: Yosi Espinal MD Sodium [Moles/Vol] 139 mmol/L Normal 135-144 [facility] Comment on above: Performed By: #### B C #### [address] [address] Field Sales Trainer: Yosi Espinal MD Urea nitrogen [Mass/Vol] 31 mg/dL High 6-20 [facility] Comment on above: Performed By: #### B C #### [address] [address] Field Sales Trainer: Yosi Espinal MD BUN/CRE Ratio NOT REPORTED Normal 9-20 [facility] Comment on above: Performed By: #### B C #### [address] [address] Field Sales Trainer: Yosi Espinal MD Staging: NOT REPORTED Normal [facility] Comment on above: Performed By: #### B C #### [address] [address] Field Sales Trainer: Yosi Espinal MD Comprehensive Metabolic Pane l w/ Reflex to MGon 04-22-2020 Albumin [Mass/Vol] 2.6 g/dL Low 3.5 - 5.2 g/dL [place] Albumin/Globulin [Mass ratio] 0.8 {ratio} Low [place] ALP [Catalytic activity/Vol] 89 U/L 35 - 104 U/L [place] ALT [Catalytic activity/Vol] 25 U/L 5 - 33 U/L [place] Anion gap [Moles/Vol] 10 mmol/L 9 - 17 mmol/L [place] AST [Catalytic activity/Vol] 39 U/L High <32 [place] Bilirubin Ql (U) 0.62 mg/dL 0.3 - 1.2 mg/dL [place] Bun/Cre Ratio NOT REPORTED [place] Calcium [Mass/Vol] 8.2 mg/dL Low 8.6 - 10. 4 mg/dL [place] Chloride [Moles/Vol] 106 mmol/L 98 - 10 7 mmol/L [place] CO2 [Moles/Vol] 23 mmol/L 20 - 31 mmol/L [place] Creatinine [Mass/Vol] 1.42 mg/dL High 0.5 - 0.9 mg/dL [place] GFR 50 mL/min Low >60 [place] GFR Non- 41 mL/min Low >60 [place] GFR/1.73 sq M predicted among non-blacks MDRD (S/P/Bld) [Vol rate/Area] NOT REPORTED [place] GFR/1.73 sq M predicted among non-blacks MDRD (S/P/Bld) [Vol rate/Area] [place] Comment on above: Average GFR for 30-3 9 years old: 107 mL/min/1.73sq m Chronic Kidney Disease: <60 mL/min/1.73sq m Kidney failure: <15 mL/min/1.73sq m eGFR calculated using average adult body mass. Additional eGFR calculator available at: http://www.globalrph.Factabase/multiple_crcl_2012.htm Glucose [Mass/Vol] 206 mg/dL High 70 - 99 mg/dL [place] Potassium [Moles/Vol] 4.5 mmol/L 3.7 - 5.3 mmol/L [place] Protein [Mass/Vol] 5.7 g/dL Low 6.4 - 8.3 g/dL [place] Sodium [Moles/Vol] 139 mmol/L 135 - 144 mmol/L [place] Urea nitrogen [Mass/Vol] 31 mg/dL High 6 - 20 mg/dL [place] Creatine Kinaseon 04-22-2020 CK [Catalytic activity/Vol] 1058 U/L High 26-192 [facility] Comment on above: Performed By: #### B C #### [address] [id number] Field Sales Trainer: Yosi Espinal MD Creatinine, Random Urineon 1 06-23-2019 Creatinine, Ur 53.8 mg/dL 28 - 217 mg/dL [place] Creatinine,Random Uron 04-22 Creatinine [Mass/Vol] 53.8 mg/dL Normal 28.0-217.0 [facility] Comment on above: Performed By: #### T SHX, CBC, LIVP, BMP, FT4 #### [facility] [address] [place] [address] Field Sales Trainer: Yosi Espinal MD Hematologyon 04-22-2020 INR Coag (Bld) [Relative time] NOT REPORTED [place] Lactate, Sepsison 04-22-2020 Lactic Acid,Sep Wbld 1.6 mmol/L Normal 0.5-1.9 [facility] Comment on above: Performed By: #### T SHX, CBC, LIVP, BMP, FT4 #### [facility] [address] [place] [address] [phone] Field Sales Trainer: Yosi Espinal MD Lactic Acid, Sepsis NOT REPORTED 0.5 - 1. 9 mmol/L [place] Lactic Acid, Sepsis, Whole Blood 1.6 mmol/L 0.5 - 1.9 mmol/L [place] MYOGLOBIN, SERUMon 0 Myoglobin [Mass/Vol] 152 ng/mL High 25 - 58 ng/mL [place] Magnesiumon 04-22-2020 Magnesium [Mass/Vol] 1.8 mg/dL Normal 1.6-2.6 [facility] Comment on above: Performed By: #### B C #### [facility] [place], [place] [phone] Field Sales Trainer: Yosi Espinal MD Magnesium [Mass/Vol] 1.8 mg/dL 1.6 - 2 .6 mg/dL [place] Myoglobinon 04-22-2020 Myoglobin [Mass/Vol] 152 ng/mL High 25-58 [facility] Comment on above: Performed By: #### B C #### [facility] [address] [place], [place] [phone] Field Sales Trainer: Yosi Espinal MD Otheron 04-22-2020 Interpretation and review of laboratory results Abnormal [place] POC Glucose Fingerstickon Glucose [Mass/Vol] 145 mg/dL High 65 - 105 mg/dL [place] Interpretation and review of laboratory results Abnormal [place] Glucose [Mass/Vol] 121 mg/dL High 65 - 105 mg/dL [place] Interpretation and review of laboratory results Abnormal [place] Glucose [Mass/Vol] 162 mg/dL High 65 - 105 mg/dL [place] Interpretation and review of laboratory results Abnormal [place] Glucose [Mass/Vol] 147 mg/dL High 65 - 105 mg/dL [place] Interpretation and review of laboratory results Abnormal [place] Phosphoruson 04-22-2020 Phosphate [Mass/Vol] 2.8 mg/dL 2.6 - 4 .5 mg/dL [place] Phosphorus, Inorg.on 020 Phosphorus, Inorg. 2.8 mg/dL Normal 2.6-4.5 [facility] Comment on above: Performed By: #### B C #### [facility] [address] [place] [address] Field Sales Trainer: Yosi Espinal MD Potassium, urine, randomon 1 06-23-2019 Potassium, Ur 21.4 mmol/L [place] Comment on above: No normal range esta blished. Potassium,Random Uron 2019 K Conc. 21.4 mmol/L Normal [facility] Comment on above: Result Comment: No n ormal range established. Performed By: #### T SHX, CBC, LIVP, BMP, FT4 #### [facility] [place], [place] [phone] Field Sales Trainer: Yosi Espinal MD Protein, urine, randomon Protein (U) [Mass/Vol] 11 mg/dL [place] Comment on above: No normal range esta blished. Protein,Tot,[place] Uron 2019 Tot Prot. Conc. 11 mg/dL Normal [facility] Comment on above: Result Comment: No n ormal range established. Performed By: #### T SHX, CBC, LIVP, BMP, FT4 #### [facility] [place] [address] Field Sales Trainer: Yosi Espinal MD SPECIMEN REJECTIONon 020 Ordered Test IOCAL [place] Reason for Rejection Unable to perform testing: No specimen received. [place] Specimen source Nom (Unsp spec) .BLOOD [place] - NOT REPORTED [place] Sodium, Random Uron 04-22-20 20 Na Conc. Urine 60 mmol/L Normal [facility] Comment on above: Result Comment: No n ormal range established. Performed By: #### T SHX, CBC, LIVP, BMP, FT4 #### [facility] [address] [place] [address] Field Sales Trainer: Yosi Espinal MD Sodium, urine, randomon 04-08 Sodium (U) [Moles/Vol] 60 mmol/L [facility] [place] Comment on above: No normal range esta blished. Specimen Rejectionon 020 Reason for rejection Unable to perform testing: No specimen received. Normal [facility] Comment on above: Performed By: #### B C #### [facility] [address] [place] [address] [phone] Field Sales Trainer: Yosi Espinal MD Source of sample .BLOOD Normal [facility] Comment on above: Performed By: #### B C #### [facility] [address] [place] [address] [phone] Field Sales Trainer: Yosi Espinal MD Test ordered IOCAL Normal [facility] Comment on above: Performed By: #### B C #### [facility] [address] [place] [address] [phone] Field Sales Trainer: Yosi Espinal MD ----- NOT REPORTED Normal [facility] Comment on above: Performed By: #### B C #### [facility] [address] [place] [address] [phone] Field Sales Trainer: Yosi Espinal MD US RENAL LIMITEDon 0 US RENAL LIMITED EXAMINATION: ULTRASOUND OF THE KIDNEYS 04/22/2020 11:51 am COMPARISON: None. HISTORY: ORDERING SYSTEM PROVIDED HISTORY: MARCIE TECHNOLOGIST PROVIDED HISTORY: MARCIE FINDINGS: The right kidney measures 12.8 cm in length and the left kidney measures 12 cm in length. Kidneys demonstrate normal cortical echogenicity. No hydronephrosis or intrarenal stones. No focal lesions. The right kidney is not as well seen as the left. Overall exam is somewhat limited due to patient body habitus and overlying bowel gas. IMPRESSION: Essentially unremarkable renal ultrasound Interpreted by: Prakash Mariscal MD Signed by: Prakash Mariscal MD 12/15/20 Final result Normal [facility] [place], [facility] Incoming Radiant Results From [employer] - 04/22/2020 1:00 PM EST EXAMINATION: ULTRASOUND OF THE KIDNEYS 04/22/2020 11:51 am COMPARISON: None. HISTORY: ORDERING SYSTEM PROVIDED HISTORY: MARCIE TECHNOLOGIST PROVIDED HISTORY: MARCIE FINDINGS: The right kidney measures 12.8 cm in length and the left kidney measures 12 cm in length. Kidneys demonstrate normal cortical echogenicity. No hydronephrosis or intrarenal stones. No focal lesions. The right kidney is not as well seen as the left. Overall exam is somewhat limited due to patient body habitus and overlying bowel gas. IMPRESSION: Essentially unremarkable renal ultrasound [place] Essentially unremark able renal ultrasound [place] EXAMINATION: ULTRASO UND OF THE KIDNEYS 04/22/2020 11:51 am COMPARISON: None. HISTORY: ORDERING SYSTEM PROVIDED HISTORY: MARCIE TECHNOLOGIST PROVIDED HISTORY: MARCIE FINDINGS: The right kidney measures 12.8 cm in length and the left kidney measures 12 cm in length. Kidneys demonstrate normal cortical echogenicity. No hydronephrosis or intrarenal stones. No focal lesions. The right kidney is not as well seen as the left. Overall exam is somewhat limited due to patient body habitus and overlying bowel gas. [place] Urinalysis w/ Microon 2019 ----- Normal [facility] Comment on above: Performed By: #### T SHX, CBC, LIVP, BMP, FT4 #### [facility] [address] [place] [address] Field Sales Trainer: Yosi Espinal MD Acetoacetic Acid,Ur Negative Normal NEG [facility] Comment on above: Performed By: #### T SHX, CBC, LIVP, BMP, FT4 #### [facility] [address] [place] [address] Field Sales Trainer: Yosi Espinal MD Bilirubin, SemiQt,Ur Negative Normal NEG [facility] Comment on above: Performed By: #### T SHX, CBC, LIVP, BMP, FT4 #### [facility] [address] [place] [address] Field Sales Trainer: Yosi Espinal MD Casts LM.LPF (Urine sed) [#/Area] 2 TO 5 HYALINE Normal 0-8 [facility] Comment on above: Result Comment: Refe rence range defined for non-centrifuged specimen. Performed By: #### T SHX, CBC, LIVP, BMP, FT4 #### [facility] [address] [place] [address] Field Sales Trainer: Yosi Espinal MD Color (U) YELLOW Normal YEL [facility] Comment on above: Performed By: #### T SHX, CBC, LIVP, BMP, FT4 #### [facility] [address] [place] [address] Field Sales Trainer: Yosi Espinal MD Epithelial cells LM.HPF (Urine sed) [#/Area] 2 TO 5 Normal 0-5 [facility] Comment on above: Performed By: #### T SHX, CBC, LIVP, BMP, FT4 #### [facility] [address] [place] [address] Field Sales Trainer: Yosi Espinal MD Glucose Ql (U) Negative Normal NEG [facility] Comment on above: Performed By: #### T SHX, CBC, LIVP, BMP, FT4 #### [facility] [address] [place] [address] Field Sales Trainer: Yosi Espinal MD Hemoglobin, Ur Negative Normal NEG [facility] Comment on above: Performed By: #### T SHX, CBC, LIVP, BMP, FT4 #### [facility] [address] [place] [phone] Field Sales Trainer: Yosi Espinal MD Leukocyte esterase Test strip Ql (U) TRACE Abnormal NEG [facility] Comment on above: Performed By: #### T SHX, CBC, LIVP, BMP, FT4 #### [facility] [address] [place] [address] Field Sales Trainer: Yosi Espinal MD Nitrite,Ur Negative Normal NEG [facility] Comment on above: Performed By: #### T SHX, CBC, LIVP, BMP, FT4 #### [facility] [address] [place] [address] Field Sales Trainer: Yosi Espinal MD pH (U) 6.0 [pH] Normal 5.0-8.0 [facility] Comment on above: Performed By: #### T SHX, CBC, LIVP, BMP, FT4 #### [facility] [address] [place] [address] Field Sales Trainer: Yosi Espinal MD Protein Ql (U) Negative Normal NEG [facility] Comment on above: Performed By: #### T SHX, CBC, LIVP, BMP, FT4 #### [facility] [address] [place] [phone] Field Sales Trainer: Yosi Espinal MD RBC (U) [#/Vol] 2 TO 5 Normal 0-4 [facility] Comment on above: Result Comment: Refe rence range defined for non-centrifuged specimen. Performed By: #### T SHX, CBC, LIVP, BMP, FT4 #### [facility] [address] [place] [address] Field Sales Trainer: Yosi Espinal MD Specific gravity (U) [Rel density] 1.013 Normal 1.005-1.030 [facility] Comment on above: Performed By: #### T SHX, CBC, LIVP, BMP, FT4 #### [facility] [address] [place] [phone] Field Sales Trainer: Yosi Espinal MD Turbidity CLEAR Normal CLEAR [facility] Comment on above: Performed By: #### T SHX, CBC, LIVP, BMP, FT4 #### [facility] [address] [place] [phone] Field Sales Trainer: Yosi Espinal MD Urobilinogen,Ur Normal Normal NORM [facility] Comment on above: Performed By: #### T SHX, CBC, LIVP, BMP, FT4 #### [facility] [address] [place] [phone] Field Sales Trainer: Yosi Espinal MD WBC (U) [#/Vol] 2 TO 5 Normal 0-5 [facility] Comment on above: Performed By: #### T SHX, CBC, LIVP, BMP, FT4 #### [facility] [address] [place] [address] Field Sales Trainer: Yosi Espinal MD Amorphous sediment LM Ql (Urine sed) NOT REPORTED Normal NONE [facility] Comment on above: Performed By: #### T SHX, CBC, LIVP, BMP, FT4 #### [facility] [address] [place] [phone] Field Sales Trainer: Yosi Espinal MD Bacteria LM.HPF (Urine sed) [#/Area] NOT REPORTED Normal NONE [facility] Comment on above: Performed By: #### T SHX, CBC, LIVP, BMP, FT4 #### [facility] [address] [place] [phone] Field Sales Trainer: Yosi Espinal MD Crystals LM Nom (Urine sed) NOT REPORTED Normal NONE [facility] Comment on above: Performed By: #### T SHX, CBC, LIVP, BMP, FT4 #### [facility] [address] [place] [phone] Field Sales Trainer: Yosi Espinal MD Epithelial, Renal NOT REPORTED Normal 0 [facility] Comment on above: Performed By: #### T SHX, CBC, LIVP, BMP, FT4 #### [facility] [address] [place] [phone] Field Sales Trainer: Yosi Espinal MD Mucus Strands NOT REPORTED Normal NONE [facility] Comment on above: Performed By: #### T SHX, CBC, LIVP, BMP, FT4 #### [facility] [place] [address] Field Sales Trainer: Yosi Espinal MD Other Observations NOT REPORTED Normal NREQ [facility] Comment on above: Performed By: #### T SHX, CBC, LIVP, BMP, FT4 #### [facility] [address] [place] [phone] Field Sales Trainer: Yosi Espinal MD Trichomonas NOT REPORTED Normal NONE [facility] Comment on above: Performed By: #### T SHX, CBC, LIVP, BMP, FT4 #### [facility] [address] [place] [phone] Field Sales Trainer: Yosi Espinal MD Yeast LM Ql (Urine sed) NOT REPORTED Normal NONE [facility] Comment on above: Performed By: #### T SHX, CBC, LIVP, BMP, FT4 #### [facility] [address] [place] [phone] Field Sales Trainer: Yosi Espinal MD Urinalysis with Microscopico n 04-22-2020 Amorphous, UA NOT REPORTED None [facility], [place] Bacteria, UA NOT REPORTED None [facility], [place] Bilirubin Urine Negative NEGATIVE [facility], [place] Casts UA 2 TO 5 HYALINE Refer ence range defined for non-centrifuged specimen. [facility] [place] Color, UA YELLOW YELLOW [facility] [place] Crystals, UA NOT REPORTED None /HPF [facility] [place], [place] Epithelial Cells UA 2 TO 5 [facility] [place] Glucose, Ur Negative NEGATIVE [facility] Interpretation and review of laboratory results Abnormal [facility] Ketones Ql (U) Negative NEGATIVE [facility] [place] Leukocyte esterase Test strip Ql (U) TRACE Abnormal NEGATIVE [facility] Mucus, UA NOT REPORTED None [facility], [place] Nitrite, Urine Negative NEGATIVE [facility], [place] Other Observations UA NOT REPORTED NOT REQ. M [place] pH, UA 6.0 [place], [place] Protein (U) [Mass/Vol] Negative NEGATIVE [place] RBC (U) [#/Vol] 2 TO 5 [place], [place] Comment on above: Reference range defi [place] for non-centrifuged specimen. Renal Epithelial, UA NOT REPORTED 0 /HPF Me [place], [place] Specific [place], UA 1.013 [place], [place] Trichomonas, UA NOT REPORTED None [place], [place] Turbidity UA CLEAR CLEAR [place] Urine Hgb Negative NEGATIVE [place] Urobilinogen, Urine Normal Normal [place] WBC, UA 2 TO 5 [place] Yeast, UA NOT REPORTED None [place] Vancomycin, Randomon 12-15-2 020 INR Coag (Bld) [Relative time] 11.7 ug/mL [place] Comment on above: Higher trough serum vancomycin concentrations of 15-20 ug/mL are recommended for complicated infections such as bacteremia, endocarditis, osteomyelitis, meningitis, and hospital acquired pneumonia. Vancomycin,Randomon 12-15-20 20 Vancomycin 11.7 ug/mL Normal [facility] Comment on above: Result Comment: High er trough serum vancomycin concentrations of 15-20 ug/mL are recommended for complicated infections such as bacteremia, endocarditis, osteomyelitis, meningitis, and hospital acquired pneumonia. Performed By: #### B C #### [facility] [address] [place] [address] [phone] Field Sales Trainer: Yosi Espinal MD Date last dose, NOT REPORTED Normal [facility] Comment on above: Performed By: #### B C #### [facility] [address] [place] [address] [phone] Field Sales Trainer: Yosi Espinal MD Dose amount, NOT REPORTED Normal [facility] Comment on above: Performed By: #### B C #### [facility] [address] [place] [address] [phone] Field Sales Trainer: Yosi Espinal MD Time last dose, NOT REPORTED Normal [facility] Comment on above: Performed By: #### B C #### [facility] [address] [phone] Field Sales Trainer: Yosi Espinal MD Basic Metabolic Panel w/ Ref carlos to MGon 04-21-2020 Anion gap [Moles/Vol] 10 mmol/L 9 - 17 mmol/L [place] Bun/Cre Ratio NOT REPORTED [place] Calcium [Mass/Vol] 7.9 mg/dL Low 8.6 - 10. 4 mg/dL [place] Chloride [Moles/Vol] 102 mmol/L 98 - 10 7 mmol/L [place] CO2 [Moles/Vol] 23 mmol/L 20 - 31 mmol/L [place] Creatinine [Mass/Vol] 1.86 mg/dL High 0.5 - 0.9 mg/dL [place] GFR 37 mL/min Low >60 [place] GFR Non- 30 mL/min Low >60 [place] GFR/1.73 sq M predicted among non-blacks MDRD (S/P/Bld) [Vol rate/Area] [place] Comment on above: Average GFR for 30-3 9 years old: 107 mL/min/1.73sq m Chronic Kidney Disease: <60 mL/min/1.73sq m Kidney failure: <15 mL/min/1.73sq m eGFR calculated using average adult body mass. Additional eGFR calculator available at: http://www.Affinio.Factabase/multiple_crcl_2012.htm GFR/1.73 sq M predicted among non-blacks MDRD (S/P/Bld) [Vol rate/Area] NOT REPORTED [place], [place] Glucose [Mass/Vol] 235 mg/dL High 70 - 99 mg/dL [place] Interpretation and review of laboratory results Abnormal [place] Potassium [Moles/Vol] 5.0 mmol/L 3.7 - 5.3 mmol/L [place] Sodium [Moles/Vol] 135 mmol/L 135 - 144 mmol/L [place] Urea nitrogen [Mass/Vol] 34 mg/dL High 6 - 20 mg/dL [place] C-Reactive Proteinon 04-21- 020 CRP [Mass/Vol] 237.5 mg/L High 0.0-5.0 [facility] Comment on above: Performed By: #### T SHX, CBC, LIVP, BMP, FT4 #### [facility] [address] [place] [address] Field Sales Trainer: Yosi Espinal MD CRP [Mass/Vol] 237.5 mg/L High 0 - 5 mg/L [place] Interpretation and review of laboratory results Abnormal [place], [place] CBC Auto Differentialon 04-08 Basophils (Bld) [#/Vol] 0.00 10*3/uL [place] Basophils/100 WBC (Bld) 0 % 0 - 2 % [place] Differential Type NOT REPORTED [place] Eosinophils (Bld) [#/Vol] 0.24 10*3/uL [place] Eosinophils/100 WBC (Bld) 2 % 1 - 4 % [place] Erythrocyte distribution width (RBC) [Ratio] 19.9 % High 11.8 - 14.4 % [place] Hematocrit (Bld) [Volume fraction] 31.3 % Low 36.3 - 47.1 % [place] Hemoglobin (Bld) [Mass/Vol] 9.5 g/dL Low 11.9 - 15.1 g/dL [place] Immature granulocytes (Bld) [#/Vol] 0.00 10*3/uL [place] Immature granulocytes (Bld) [#/Vol] 0 % 0 [place] Interpretation and review of laboratory results Abnormal [place] Lymphocytes (Bld) [#/Vol] 1.20 10*3/uL [place] Lymphocytes/100 WBC (Bld) 10 % Low 24 - 44 % [place] MCH (RBC) [Entitic mass] 24.9 pg Low 25.2 - 33.5 pg [place] MCHC (RBC) [Mass/Vol] 30.4 g/dL 28.4 - 34.8 g/dL [place] MCV (RBC) [Entitic vol] 82.2 fL Low 82.6 - 102.9 fL [place] Monocytes (Bld) [#/Vol] 1.08 10*3/uL [place] Monocytes/100 WBC (Bld) 9 % High 1 - 7 % [place] Morphology Dann (Bld) [Interp] ANISOCYTOSIS PRESENT [place] Morphology Dann (Bld) [Interp] MICROCYTOSIS PRESENT [place] Morphology Dann (Bld) [Interp] HYPOCHROMIA PRESENT [place] Platelet mean volume (Bld) [Entitic vol] 10.1 fL 8.1 - 13.5 fL [place] Platelets (Bld) [#/Vol] 278 10*3/uL [place] Platelets (Bld) [#/Vol] NOT REPORTED [place] RBC (Bld) [#/Vol] 3.81 10*6/uL Low 3.95 - 5.1 1 m/uL [place] RBC morphology finding Nom (Bld) NOT REPORTED [place] Segmented neutrophils/100 WBC (Bld) 79 % High 36 - 66 % [place] Segs Absolute 9.48 High [place] WBC (Bld) [#/Vol] 0.0 10*3/uL 0.0 per 10 0 WBC [place] WBC (Bld) [#/Vol] 12.0 10*3/uL [place] WBC Morphology NOT REPORTED [place] CBC with Diffon 04-21-2020 Abs. Basophil 0.00 k/uL Normal 0.0-0.2 [facility] Comment on above: Performed By: #### T SHX, CBC, LIVP, BMP, FT4 #### [address] [address] Field Sales Trainer: Yosi Espinal MD Abs.Imm.Granulocyte 0.00 k/uL Normal 0.00-0.30 [facility] Comment on above: Performed By: #### T SHX, CBC, LIVP, BMP, FT4 #### [place] [address] Field Sales Trainer: Yosi Espinal MD Abs.Neutrophil (Seg) 9.48 k/uL High 1.8-7.7 [facility] Comment on above: Performed By: #### T SHX, CBC, LIVP, BMP, FT4 #### [place] [address] Field Sales Trainer: Yosi Espinal MD Basophils/100 WBC (Bld) 0 % Normal 0-2 [facility] Comment on above: Performed By: #### T SHX, CBC, LIVP, BMP, FT4 #### [place] [address] Field Sales Trainer: Yosi Espinal MD Eosinophils (Bld) [#/Vol] 0.24 10*3/uL Normal 0.0-0.4 [facility] Comment on above: Performed By: #### T SHX, CBC, LIVP, BMP, FT4 #### [address] [address] Field Sales Trainer: Yosi Espinal MD Eosinophils/100 WBC (Bld) 2 % Normal 1-4 [facility] Comment on above: Performed By: #### T SHX, CBC, LIVP, BMP, FT4 #### [place] [address] Field Sales Trainer: Yosi Espinal MD Immature granulocytes (Bld) [#/Vol] 0 % Normal 0 [facility] Comment on above: Performed By: #### T SHX, CBC, LIVP, BMP, FT4 #### [facility] [address] [place] [address] Field Sales Trainer: Yosi Espinal MD Lymphocytes (Bld) [#/Vol] 1.20 10*3/uL Normal 1.0-4.8 [facility] Comment on above: Performed By: #### T SHX, CBC, LIVP, BMP, FT4 #### [facility] [address] [place] [address] Field Sales Trainer: Yosi Espinal MD Lymphocytes/100 WBC (Bld) 10 % Low 24-44 [facility] Comment on above: Performed By: #### T SHX, CBC, LIVP, BMP, FT4 #### [facility] [address] [place] [address] Field Sales Trainer: Yosi Espinal MD Monocytes (Bld) [#/Vol] 1.08 10*3/uL High 0.1-0.8 [facility] Comment on above: Performed By: #### T SHX, CBC, LIVP, BMP, FT4 #### [facility] [address] [place] [address] Field Sales Trainer: Yosi Espinal MD Monocytes/100 WBC (Bld) 9 % High 1-7 M [facility] Comment on above: Performed By: #### T SHX, CBC, LIVP, BMP, FT4 #### [facility] [address] [place] [address] Field Sales Trainer: Yosi Espinal MD Morphology Dann (Bld) [Interp] ANISOCYTOSIS PRESENT Normal [facility] Comment on above: Result Comment: MICR OCYTOSIS PRESENT HYPOCHROMIA PRESENT Performed By: #### T SHX, CBC, LIVP, BMP, FT4 #### [facility] [address] [place] [address] Field Sales Trainer: Yosi Espinal MD Neutrophil (Seg) 79 % High 36-66 [facility] Comment on above: Performed By: #### T SHX, CBC, LIVP, BMP, FT4 #### [facility] [address] [place] [address] [phone] Field Sales Trainer: Yosi Espinal MD Erythrocyte distribution width (RBC) [Ratio] 19.9 % High 11.8-14.4 [facility] Comment on above: Performed By: #### T SHX, CBC, LIVP, BMP, FT4 #### [facility] [address] [place] [address] Field Sales Trainer: Yosi Espinal MD Hematocrit (Bld) [Volume fraction] 31.3 % Low 36.3-47.1 [facility] Comment on above: Performed By: #### T SHX, CBC, LIVP, BMP, FT4 #### [facility] [address] [place] [address] Field Sales Trainer: Yosi Espinal MD Hemoglobin (Bld) [Mass/Vol] 9.5 g/dL Low 11.9-15.1 [facility] Comment on above: Performed By: #### T SHX, CBC, LIVP, BMP, FT4 #### [facility] [address] [place] [phone] Field Sales Trainer: Yosi Espinal MD MCH (RBC) [Entitic mass] 24.9 pg Low 25.2-33.5 [facility] Comment on above: Performed By: #### T SHX, CBC, LIVP, BMP, FT4 #### [facility] [address] [place] [address] 94598 Field Sales Trainer: Yosi Espinal MD MCHC (RBC) [Mass/Vol] 30.4 g/dL Normal 28.4-34.8 [facility] Comment on above: Performed By: #### T SHX, CBC, LIVP, BMP, FT4 #### [facility] [address] [place] [address]28 Field Sales Trainer: Yosi Espinal MD MCV (RBC) [Entitic vol] 82.2 fL Low 82.6-102.9 M [facility] Comment on above: Performed By: #### T SHX, CBC, LIVP, BMP, FT4 #### [address] [address] Field Sales Trainer: Yosi Espinal MD NRBC Automated 0.0 per 100 WBC Normal 0.0 [facility] Comment on above: Performed By: #### T SHX, CBC, LIVP, BMP, FT4 #### [address] [address] Field Sales Trainer: Yosi Espinal MD Platelet mean volume (Bld) [Entitic vol] 10.1 fL Normal 8.1-13.5 [facility] Comment on above: Performed By: #### T SHX, CBC, LIVP, BMP, FT4 #### [address] [address] Field Sales Trainer: Yosi Espinal MD Platelets (Bld) [#/Vol] 278 10*3/uL Normal 138-453 [facility] Comment on above: Performed By: #### T SHX, CBC, LIVP, BMP, FT4 #### [address] [address] Field Sales Trainer: Yosi Espinal MD RBC (Bld) [#/Vol] 3.81 10*6/uL Low 3.95-5.11 [facility] Comment on above: Performed By: #### T SHX, CBC, LIVP, BMP, FT4 #### [address] [address] Field Sales Trainer: Yosi Espinal MD WBC (Bld) [#/Vol] 12.0 10*3/uL High 3.5-11.3 [facility] Comment on above: Performed By: #### T SHX, CBC, LIVP, BMP, FT4 #### [facility] [place] [address] Field Sales Trainer: Yosi Espinal MD Auto Diff Performed NOT REPORTED Normal [facility] Comment on above: Performed By: #### T SHX, CBC, LIVP, BMP, FT4 #### [address] [address] Field Sales Trainer: Yosi Espinal MD Platelets (Bld) [#/Vol] NOT REPORTED Normal [facility] Comment on above: Performed By: #### T SHX, CBC, LIVP, BMP, FT4 #### [facility] [address] [place] [address] Field Sales Trainer: Yosi Espinal MD RBC morphology finding Nom (Bld) NOT REPORTED Normal [facility] Comment on above: Performed By: #### T SHX, CBC, LIVP, BMP, FT4 #### [address] [address] Field Sales Trainer: Yosi Espinal MD WBC Morphology NOT REPORTED Normal [facility] Comment on above: Performed By: #### T SHX, CBC, LIVP, BMP, FT4 #### [address] [address] Field Sales Trainer: Yosi Espinal MD CKon 04-21-2020 Total CK 1836 U/L High 26 - 192 U/L [facility], [place] Comp Metabolic Profon 2019 (cont.) Normal [facility] Comment on above: Result Comment: Aver age GFR for 30-39 years old: 107 mL/min/1.73sq m Chronic Kidney Disease: <60 mL/min/1.73sq m Kidney failure: <15 mL/min/1.73sq m eGFR calculated using average adult body mass. Additional eGFR calculator available at: http://www.globalrph.Factabase/multiple_crcl_2012.htm Performed By: #### T SHX, CBC, LIVP, BMP, FT4 #### [address] [address] Field Sales Trainer: Yosi Espinal MD Albumin [Mass/Vol] 2.9 g/dL Low 3.5-5.2 [facility] Comment on above: Performed By: #### T SHX, CBC, LIVP, BMP, FT4 #### [facility] [address] [place] [address] Field Sales Trainer: Yosi Espinal MD Albumin/Globulin [Mass ratio] 0.9 {ratio} Low 1.0-2.5 [facility] Comment on above: Performed By: #### T SHX, CBC, LIVP, BMP, FT4 #### [address] [address] Field Sales Trainer: Yosi Espinal MD Alkaline Phos 95 U/L Normal 35-104 [facility] Comment on above: Performed By: #### T SHX, CBC, LIVP, BMP, FT4 #### [facility] [address] [place] [address] Field Sales Trainer: Yosi Espinal MD ALT [Catalytic activity/Vol] 27 U/L Normal 5-33 [facility] Comment on above: Performed By: #### T SHX, CBC, LIVP, BMP, FT4 #### [facility] [address] [place] [phone] Field Sales Trainer: Yosi Espinal MD Anion gap [Moles/Vol] 14 mmol/L Normal 9-17 [facility] Comment on above: Performed By: #### T SHX, CBC, LIVP, BMP, FT4 #### [facility] [address] [place] [address] Field Sales Trainer: Yosi Espinal MD AST [Catalytic activity/Vol] 54 U/L High <32 [facility] Comment on above: Performed By: #### T SHX, CBC, LIVP, BMP, FT4 #### [facility] [address] [place] [address] Field Sales Trainer: Yosi Espinal MD Bilirubin Ql (U) 0.88 mg/dL Normal 0.3-1.2 [facility] Comment on above: Performed By: #### T SHX, CBC, LIVP, BMP, FT4 #### [facility] [address] [place] [address] Field Sales Trainer: Yosi Espinal MD Calcium [Mass/Vol] 8.2 mg/dL Low 8.6-10.4 [facility] Comment on above: Performed By: #### T SHX, CBC, LIVP, BMP, FT4 #### [facility] [address] [place] [address] Field Sales Trainer: Yosi Espinal MD Chloride [Moles/Vol] 102 mmol/L Normal 98-107 [facility] Comment on above: Performed By: #### T SHX, CBC, LIVP, BMP, FT4 #### [facility] [address] [place] [address] Field Sales Trainer: Yosi Espinal MD CO2 [Moles/Vol] 21 mmol/L Normal 20-31 [facility] Comment on above: Performed By: #### T SHX, CBC, LIVP, BMP, FT4 #### [facility] [address] [place] [address] Field Sales Trainer: Yosi Espinal MD Creatinine [Mass/Vol] 2.57 mg/dL High 0.50-0.90 [facility] Comment on above: Performed By: #### T SHX, CBC, LIVP, BMP, FT4 #### [facility] [address] [place] [address] Field Sales Trainer: Yosi Espinal MD GFR, Amer 25 mL/min Low >60 [facility] Comment on above: Performed By: #### T SHX, CBC, LIVP, BMP, FT4 #### [facility] [address] [place] [address] Field Sales Trainer: Yosi Espinal MD GFR,non Amer 21 mL/min Low >60 [facility] Comment on above: Performed By: #### T SHX, CBC, LIVP, BMP, FT4 #### [facility] [address] [place] [address] Field Sales Trainer: Yosi Espinal MD Glucose [Mass/Vol] 182 mg/dL High 70-99 [facility] Comment on above: Performed By: #### T SHX, CBC, LIVP, BMP, FT4 #### [facility] [address] [place] [address] Field Sales Trainer: Yosi Espinal MD Potassium [Moles/Vol] 5.1 mmol/L Normal 3.7-5.3 [facility] Comment on above: Performed By: #### T SHX, CBC, LIVP, BMP, FT4 #### [facility] [address] [place] [address] Field Sales Trainer: Yosi Espinal MD Protein [Mass/Vol] 6.0 g/dL Low 6.4-8.3 [facility] Comment on above: Performed By: #### T SHX, CBC, LIVP, BMP, FT4 #### [facility] [address] [place] [address] Field Sales Trainer: Yosi Espinal MD Sodium [Moles/Vol] 137 mmol/L Normal 135-144 [facility] Comment on above: Performed By: #### T SHX, CBC, LIVP, BMP, FT4 #### [facility] [address] [place] [address] Field Sales Trainer: Yosi Espinal MD Urea nitrogen [Mass/Vol] 42 mg/dL High 6-20 [facility] Comment on above: Performed By: #### T SHX, CBC, LIVP, BMP, FT4 #### [facility] [address] [place] [address] Field Sales Trainer: Yosi Espinal MD BUN/CRE Ratio NOT REPORTED Normal 9-20 [facility] Comment on above: Performed By: #### T SHX, CBC, LIVP, BMP, FT4 #### [facility] [address] [place] [address] Field Sales Trainer: Yosi Espinal MD Staging: NOT REPORTED Normal [facility] Comment on above: Performed By: #### T SHX, CBC, LIVP, BMP, FT4 #### [facility] [address] [place] [address] Field Sales Trainer: Yosi Espinal MD Comprehensive Metabolic [facility] 04-21-2020 Albumin [Mass/Vol] 2.9 g/dL Low 3.5 - 5.2 g/dL [place] Albumin/Globulin [Mass ratio] 0.9 {ratio} Low [place] ALP [Catalytic activity/Vol] 95 U/L 35 - 104 U/L [place] ALT [Catalytic activity/Vol] 27 U/L 5 - 33 U/L [place] Anion gap [Moles/Vol] 14 mmol/L 9 - 17 mmol/L [place] AST [Catalytic activity/Vol] 54 U/L High <32 [place] Bilirubin Ql (U) 0.88 mg/dL 0.3 - 1.2 mg/dL [place] Bun/Cre Ratio NOT REPORTED [place] Calcium [Mass/Vol] 8.2 mg/dL Low 8.6 - 10. 4 mg/dL [place] Chloride [Moles/Vol] 102 mmol/L 98 - 10 7 mmol/L [place] CO2 [Moles/Vol] 21 mmol/L 20 - 31 mmol/L [place] Creatinine [Mass/Vol] 2.57 mg/dL High 0.5 - 0.9 mg/dL [place] GFR 25 mL/min Low >60 [place] GFR Non- 21 mL/min Low >60 [place] GFR/1.73 sq M predicted among non-blacks MDRD (S/P/Bld) [Vol rate/Area] NOT REPORTED [place] GFR/1.73 sq M predicted among non-blacks MDRD (S/P/Bld) [Vol rate/Area] [place] Comment on above: Average GFR for 30-3 9 years old: 107 mL/min/1.73sq m Chronic Kidney Disease: <60 mL/min/1.73sq m Kidney failure: <15 mL/min/1.73sq m eGFR calculated using average adult body mass. Additional eGFR calculator available at: http://www.Monkey Bizness/multiple_crcl_2012.htm Glucose [Mass/Vol] 182 mg/dL High 70 - 99 mg/dL [place] Potassium [Moles/Vol] 5.1 mmol/L 3.7 - 5.3 mmol/L [place] Protein [Mass/Vol] 6.0 g/dL Low 6.4 - 8.3 g/dL [place] Sodium [Moles/Vol] 137 mmol/L 135 - 144 mmol/L [place] Urea nitrogen [Mass/Vol] 42 mg/dL High 6 - 20 mg/dL [place] Covid-19, Antibody, Totalon 04-21-2020 SARS-CoV-2, Total Positive Abnormal NEGATIVE [place] Comment on above: A positive result suggests exposure to SARS-CoV-2 (COVID-19) but does not necessarily indicate immunity. Results from antibody testing should not be used as the sole basis to diagnose or exclude SARS-CoV-2 infection or to inform infection status. This test has been authorized by the FDA under an Emergency Use Authorization (EUA) for use by authorized laboratories. Fact sheet for Healthcare Providers: https://www.fda.gov/media/426849/download Fact sheet for Patients: https://www.fda.gov/media/878496/download METHODOLOGY: ECIA Results reported to the appropriate Health Department Creatine Kinaseon 04-21-2020 CK [Catalytic activity/Vol] 1836 U/L High 26-192 [facility] Comment on above: Performed By: #### T SHX, CBC, LIVP, BMP, FT4 #### [facility] [address] [place] [address] [phone] Field Sales Trainer: Yosi Espinal MD Ferritinon 04-21-2020 Ferritin [Mass/Vol] 196 ug/L High 13-150 [facility] Comment on above: Performed By: #### T SHX, CBC, LIVP, BMP, FT4 #### [facility] [address] [place] [address] [phone] Field Sales Trainer: Yosi Espinal MD Ferritin [Mass/Vol] 196 ug/L High 13 - 150 ug/L [place] Fibrinogenon 04-21-2020 Fibrinogen 605 mg/dL High 140-420 [facility] Comment on above: Performed By: #### T SHX, CBC, LIVP, BMP, FT4 #### [facility] [address] [place] [address] Field Sales Trainer: Yosi Espinal MD Fibrinogen 605 mg/dL High 140 - 420 mg/dL [place] Interpretation and review of laboratory results Abnormal [place] Hemoglobin A1Con 04-21-2020 HbA1c (Bld) [Mass fraction] 5.7 % Normal 4.0-6.0 [facility] Comment on above: Performed By: #### T SHX, CBC, LIVP, BMP, FT4 #### [facility] [address] [place] [address] Field Sales Trainer: Yosi Espinal MD HbA1c (Bld) [Mass fraction] 117 mg/dL Normal [facility] Comment on above: Result Comment: The ADA and AACC recommend providing the estimated average glucose result to permit better patient understanding of their HBA1c result. Performed By: #### T SHX, CBC, LIVP, BMP, FT4 #### [facility] [address] [place] [phone] Field Sales Trainer: Yosi Espinal MD Glucose [Mass/Vol] 117 mg/dL [place] Comment on above: The ADA and AACC rec ommend providing the estimated average glucose result to permit better patient understanding of their HBA1c result. HbA1c (Bld) [Mass fraction] 5.7 % 4 - 6 % [place] Lactate Dehydrogenaseon 04-08 LDH [Catalytic activity/Vol] 422 U/L High 135-214 [facility] Comment on above: Performed By: #### T SHX, CBC, LIVP, BMP, FT4 #### [facility] [address] [place] [address] Field Sales Trainer: Yosi Espinal MD LD 422 U/L High 135 - 214 U/L [place] Lactate, Sepsison 04-21-2020 Lactic Acid, Sepsis NOT REPORTED Normal 0.5-1.9 [facility] Comment on above: Performed By: #### T SHX, CBC, LIVP, BMP, FT4 #### [facility] [address] [place] [address] Field Sales Trainer: Yosi sEpinal MD Lactic Acid,Sep Wbld 3.0 mmol/L High 0.5-1.9 [facility] Comment on above: Performed By: #### B C #### [facility] [address] [place] [address] Field Sales Trainer: Yosi Espinal MD Lactic Acid, Sepsis NOT REPORTED Normal 0.5-1.9 [facility] Comment on above: Performed By: #### B C #### [facility] [address] [place] [address] Field Sales Trainer: Yosi Espinal MD Interpretation and review of laboratory results Abnormal [place] Lactic Acid, Sepsis NOT REPORTED 0.5 - 1. 9 mmol/L [place] Lactic Acid, Sepsis, Whole Blood 3.0 mmol/L High 0.5 - 1.9 mmol/L [place] Microscopic Urinalysison Amorphous, UA NOT REPORTED None [place] Bacteria, UA MODERATE Abnormal None [place] Casts UA NOT REPORTED [place] Crystals, UA NOT REPORTED None /HPF [place] Epithelial Cells UA 20 TO 50 [place] Interpretation and review of laboratory results Abnormal [place] Mucus, UA NOT REPORTED None [place] Other Observations UA NOT REPORTED NOT REQ. M [place] RBC (U) [#/Vol] 20 TO 50 [place] Renal Epithelial, UA NOT REPORTED 0 /HPF [place] Trichomonas, UA NOT REPORTED None [place] WBC, UA 50 TO 100 [place] Yeast, UA NOT REPORTED None [place] Myoglobinon 04-21-2020 Myoglobin [Mass/Vol] 484 ng/mL High 25-58 [facility] Comment on above: Performed By: #### T SHX, CBC, LIVP, BMP, FT4 #### [facility] [address] [place] [address] Field Sales Trainer: Yosi Espinal MD Myoglobin, Serumon 0 Myoglobin [Mass/Vol] 484 ng/mL High 25 - 58 ng/mL [place] Otheron 04-21-2020 Priscilla Negro RN 04/21/2020 8:08 PM History/labs/allergies reviewed Placed by Magan Consent signed and obtained by physician Time out performed using two identifiers Catheter type triple lumen picc Product type solo2 w 3cg Lot # [id number] Expiration date 03/08/2021 Catheter size 5 norwegian Trimmed at 48 Total length 49 External catheter length 1 cm Location RBV Number of attempts 1 Estimated blood loss 1 ml Pre procedure cardiac Rhythm NSR per bedside telemetry and/or 3CG Tracing. Placement verified by- CXR and/or 3cg Max P wave noted by amplitude changes of the P wave, positive blood return, flushes easily Special equipment used- ultrasound, micro-introducer technique and 3cg technology if indicated Catheter secured with statlock Dressing applied- Tegaderm CHG Lidocaine administered intradermally conc. 1% 1 mL PICC line education: [ X ] Discussed with patient/Family or POA prior to signing Informed Procedural Consent. Risks and Benefits along with reason for procedure were discussed and teaching was reinforced with an education handout on PICC insertion. [facility] FAQ Catheter Associated Blood Stream Infections and [facility] 30786 REV. 11/18 Nursing and Booklet left at bedside or in chart. Patient (Family or POA) acknowledged understanding of information taught and agreed to procedure. [ ] Was not discussed with patient/family or POA due to pts medical status at time of procedure. pts family or POA not available to discuss PICC education. [facility] FAQ Catheter Associated Blood Stream Infections and [facility] 79951 REV. 11/18 Nursing and Booklet left at bedside or in chart [place] Interpretation and review of laboratory results Abnormal [place] Interpretation and review of laboratory results Abnormal [place] Interpretation and review of laboratory results Abnormal [place] POC Glucose Fingerstickon Glucose [Mass/Vol] 233 mg/dL High 65 - 105 mg/dL [place] Interpretation and review of laboratory results Abnormal [place] Glucose [Mass/Vol] 233 mg/dL High 65 - 105 mg/dL [place] Interpretation and review of laboratory results Abnormal [place] Procalcitoninon 04-21-2020 Procalcitonin 1.71 ng/mL High <0.09 [facility] Comment on above: Result Comment: Suspected Sepsis: <0.50 ng/mL Low likelihood of sepsis. 0.50-2.00 ng/mL Increased likelihood of sepsis. Antibiotics encouraged. >2.00 ng/mL High risk of sepsis/shock. Antibiotics strongly encouraged. Suspected Lower Resp Tract Infections: <0.24 ng/mL Low likelihood of bacterial infection. >0.24 ng/mL Increased likelihood of bacterial infection. Antibiotics encouraged. With successful antibiotic therapy, PCT levels should decrease rapidly. (Half-life of 24 to 36 hours.) Procalcitonin values from samples collected within the first 6 hours of systemic infection may still be low. Retesting may be indicated. Values from day 1 and day 4 can be entered into the Change in Procalcitonin Calculator (www.soczwe-izz-iyzcjzxnil.Factabase) to determine the patient's Mortality Risk Prognosis In healthy neonates, plasma Procalcitonin (PCT) concentrations increase gradually after , reaching peak values at about 24 hours of age then decrease to normal values below 0.5 ng/mL by 48-72 hours of age. Performed By: #### T SHX, CBC, LIVP, BMP, FT4 #### [place] [address] Field Sales Trainer: Yosi Espinal MD Procalcitonin 1.71 ng/mL High <0.09 [place] Comment on above: Suspected Sepsis: <0.50 ng/mL Low likelihood of sepsis. 0.50-2.00 ng/mL Increased likelihood of sepsis. Antibiotics encouraged. >2.00 ng/mL High risk of sepsis/shock. Antibiotics strongly encouraged. Suspected Lower Resp Tract Infections: <0.24 ng/mL Low likelihood of bacterial infection. >0.24 ng/mL Increased likelihood of bacterial infection. Antibiotics encouraged. With successful antibiotic therapy, PCT levels should decrease rapidly. (Half-life of 24 to 36 hours.) Procalcitonin values from samples collected within the first 6 hours of systemic infection may still be low. Retesting may be indicated. Values from day 1 and day 4 can be entered into the Change in Procalcitonin Calculator (wwwApp Anniedaypnm-wcx-sughtrhtik.Factabase) to determine the patient's Mortality Risk Prognosis In healthy neonates, plasma Procalcitonin (PCT) concentrations increase gradually after , reaching peak values at about 24 hours of age then decrease to normal values below 0.5 ng/mL by 48-72 hours of age. SARS-CoV-19 [facility] 04-21-2020 SARS-CoV-19 Ab, Tot Positive Abnormal NEG [facility] Comment on above: Result Comment: A positive result suggests exposure to SARS-CoV-2 (COVID-19) but does not necessarily indicate immunity. Results from antibody testing should not be used as the sole basis to diagnose or exclude SARS-CoV-2 infection or to inform infection status. This test has been authorized by the FDA under an Emergency Use Authorization (EUA) for use by authorized laboratories. Fact sheet for Healthcare Providers: https://www.fda.gov/media/658180/download Fact sheet for Patients: https://www.fda.gov/media/701809/download METHODOLOGY: ECIA Results reported to the appropriate Health Department Performed By: #### T SHX, CBC, LIVP, BMP, FT4 #### [address] [address] Field Sales Trainer: Yosi Espinal MD TSH w/reflex to FT4on 2019 TSH Qn 0.91 m[IU]/L Normal 0.30-5.00 [facility] Comment on above: Performed By: #### T SHX, CBC, LIVP, BMP, FT4 #### [facility] [address] [place] [address] Field Sales Trainer: Yosi Espinal MD TSH with Reflexon 04-21-2020 TSH Qn 0.91 m[IU]/L [place] Troponinon 04-21-2020 Troponin I.cardiac [Mass/Vol] 17 ng/L High [facility] Comment on above: Result Comment: High Sensitivity Troponin values cannot be compared with other Troponin methodologies. Patients with high levels of Biotin oral intake (i.e >5mg/day) may have falsely decreased Troponin levels. Samples collected within 8 hours of biotin intake may require additional information for diagnosis. Performed By: #### T SHX, CBC, LIVP, BMP, FT4 #### [address] [address] Field Sales Trainer: Yosi Espinal MD Troponin I.cardiac [Mass/Vol] NOT REPORTED Normal [facility] Comment on above: Performed By: #### T SHX, CBC, LIVP, BMP, FT4 #### [facility] [address] [place] [address] Field Sales Trainer: Yosi Espinal MD Troponin I.cardiac [Mass/Vol] NOT REPORTED [place] Troponin T.cardiac [Mass/Vol] NOT REPORTED <0.03 ng/mL [place] Troponin, High Sensitivity 17 ng/L High 0 - 14 ng/L [place] Comment on above: High Sensitivity Troponin values cannot be compared with other Troponin methodologies. Patients with high levels of Biotin oral intake (i.e >5mg/day) may have falsely decreased Troponin levels. Samples collected within 8 hours of biotin intake may require additional information for diagnosis. UA w/Reflex Cultureon 2019 Acetoacetic Acid,Ur Negative Normal NEG [facility] Comment on above: Performed By: #### U GAUDENCIO UAX #### [facility] [address] [place] [address] Field Sales Trainer: Yosi Espinal MD Bilirubin, SemiQt,Ur Negative Normal NEG [facility] Comment on above: Performed By: #### U GAUDENCIO UAX #### [facility] [address] [place] [address] Field Sales Trainer: Yosi Espinal MD Color (U) YELLOW Normal YEL [facility] Comment on above: Performed By: #### U MICAO, UAX #### [facility] [address] [place] [address] Field Sales Trainer: Yosi Espinal MD Glucose Ql (U) Negative Normal NEG [facility] Comment on above: Performed By: #### U MICAO, UAX #### [facility] [address] [place] [address] Field Sales Trainer: Yosi Espinal MD Hemoglobin, Ur SMALL Abnormal NEG [facility] Comment on above: Performed By: #### U MICAO, UAX #### [facility] [address] [place] [address] Field Sales Trainer: Yosi Espinal MD Leukocyte esterase Test strip Ql (U) MODERATE Abnormal NEG [facility] Comment on above: Performed By: #### U MICAO, UAX #### [address] [address] Field Sales Trainer: Yosi Espinal MD Nitrite,Ur Negative Normal NEG [facility] Comment on above: Performed By: #### U MICAO, UAX #### [facility] [address] [place] [address] Field Sales Trainer: Yosi Espinal MD pH (U) 5.5 [pH] Normal 5.0-8.0 [facility] Comment on above: Performed By: #### U KATHARINEO, UAX #### [address] [address] Field Sales Trainer: Yosi Espinal MD Protein Ql (U) 1+ Abnormal NEG [facility] Comment on above: Performed By: #### U KATHARINEO, UAX #### [address] [address] Field Sales Trainer: Yosi Espinal MD Specific gravity (U) [Rel density] 1.016 Normal 1.005-1.030 [facility] Comment on above: Performed By: #### U MICAO, UAX #### [facility] [address] [place] [address] Field Sales Trainer: Yosi Espinal MD Turbidity CLOUDY Abnormal CLEAR [facility] Comment on above: Performed By: #### U MICAO, UAX #### [facility] [address] [place] [address] Field Sales Trainer: Yosi Espinal MD Urobilinogen,Ur Normal Normal NORM [facility] Comment on above: Performed By: #### U MICAO, UAX #### [facility] [place], [place] [phone] Field Sales Trainer: Yosi Espinal MD Comment NOT REPORTED Normal [facility] Comment on above: Performed By: #### U MICAO, UAX #### [facility] [address] [place] [address] [phone] Field Sales Trainer: Yosi Espinal MD Urinalysis Reflex to Culture on 04-21-2020 Bilirubin Urine Negative NEGATIVE [place] Color, UA YELLOW YELLOW [place] Glucose, Ur Negative NEGATIVE [place] Interpretation and review of laboratory results Abnormal [place] Ketones Ql (U) Negative NEGATIVE [place] Leukocyte esterase Test strip Ql (U) MODERATE Abnormal NEGATIVE [place] Nitrite, Urine Negative NEGATIVE [place] pH, UA 5.5 [place] Protein (U) [Mass/Vol] 1+ Abnormal NEGATIVE [place] Specific [place], UA 1.016 [place] Turbidity UA CLOUDY Abnormal CLEAR [place] Urinalysis Comments NOT REPORTED [place] Urine Hgb SMALL Abnormal NEGATIVE [place] Urobilinogen, Urine Normal Normal [place] Urinalysis,Microon 0 ----- Normal [facility] Comment on above: Performed By: #### U GAUDENCIO, UAX #### [facility] [address] [place] [address] Field Sales Trainer: Yosi Espinal MD Bacteria LM.HPF (Urine sed) [#/Area] MODERATE Abnormal NONE [facility] Comment on above: Performed By: #### U MICAO, UAX #### [facility] [address] [place], [place] [phone] Field Sales Trainer: Yosi Espinal MD Epithelial cells LM.HPF (Urine sed) [#/Area] 20 TO 50 Normal 0-5 [facility] Comment on above: Performed By: #### U MICAO, UAX #### [facility] [address] [place] [address] Field Sales Trainer: Yosi Espinal MD RBC (U) [#/Vol] 20 TO 50 Normal 0-2 [facility] Comment on above: Performed By: #### U MICAO, UAX #### [facility] [address] [place] [address] Field Sales Trainer: Yosi Espinal MD WBC (U) [#/Vol] 50 TO 100 Normal 0-5 [facility] Comment on above: Performed By: #### U MICAO, UAX #### [facility] [address] [place] [address] Field Sales Trainer: Yosi Espinal MD Amorphous sediment LM Ql (Urine sed) NOT REPORTED Normal NONE [facility] Comment on above: Performed By: #### U MICAO, UAX #### [facility] [address] [place] [address] Field Sales Trainer: Yosi Espinal MD Casts LM.LPF (Urine sed) [#/Area] NOT REPORTED Normal 0-2 [facility] Comment on above: Performed By: #### U MICAO, UAX #### [facility] [address] [place] [address] Field Sales Trainer: Yosi Espinal MD Crystals LM Nom (Urine sed) NOT REPORTED Normal NONE [facility] Comment on above: Performed By: #### U MICAO, UAX #### [facility] [address] [place] [address] Field Sales Trainer: Yosi Espinal MD Epithelial, Renal NOT REPORTED Normal 0 [facility] Comment on above: Performed By: #### U MICAO, UAX #### [facility] [address] [place] [address] Field Sales Trainer: Yosi Espinal MD Mucus Strands NOT REPORTED Normal [facility] Comment on above: Performed By: #### U GAUDENCIO UAX #### [address] [address] Field Sales Trainer: Yosi Espinal MD Other Observations NOT REPORTED Normal NREQ [facility] Comment on above: Performed By: #### U GAUDENCIO, UAX #### [facility] [address] [place] [address] Field Sales Trainer: Yosi Espinal MD Trichomonas NOT REPORTED Normal [facility] Comment on above: Performed By: #### U GAUDENCIO UAX #### [address] [address] Field Sales Trainer: Yosi Espinal MD Yeast LM Ql (Urine sed) NOT REPORTED Normal [facility] Comment on above: Performed By: #### Nayan RATLIFF UAX #### [address] [address] Field Sales Trainer: Yosi Espinal MD CBC AUTO DIFFon 12-10-2019 Basophils (Bld) [#/Vol] 0.0 103/ul Normal 0.0-0.1 [facility] Comment on above: Performed By: #### C BC #### [facility] [place] [facility] [address] [place], [place] [address] [place] Basophils/100 WBC (Bld) 0.0 % Critically low 0.2-2.0 [facility] Comment on above: Performed By: #### C BC #### [facility] [place] [facility] [address] [place], [place] [address] [place] Eosinophils (Bld) [#/Vol] 0.0 103/ul Normal 0.0-0.7 [facility] Comment on above: Performed By: #### C BC #### [facility] [place] [facility] [address] [place], [place] [address] [place] Eosinophils/100 WBC (Bld) 0.0 % Critically low 0.9-7.0 [facility] Comment on above: Performed By: #### C BC #### [facility] [place] [facility] [address] [place] [address] Gumaro Jones Erythrocyte distribution width (RBC) [Ratio] 18.0 % Critically high 11.0-15.0 [facility] Comment on above: Performed By: #### C BC #### [facility] [place] [facility] [address] [place] [address] [place] Hematocrit (Bld) [Volume fraction] 35.2 % Critically low 36.0-48.0 [facility] Comment on above: Performed By: #### C BC #### [facility] [place] [facility] [address] [place] [address] [place] Hemoglobin (Bld) [Mass/Vol] 10.5 g/dL Critically low 12.0-16.0 [facility] Comment on above: Performed By: #### C BC #### [facility] [place] [facility] [address] [place] [address] [place] IG # 0.02 10e3/ul Normal 0.00-0.03 [facility] Comment on above: Performed By: #### C BC #### [facility] [place] [facility] [address] [place] [address] [place] Jones IG % 0.3 % Normal 0.0-0.5 [facility] Comment on above: Performed By: #### C BC #### [facility] [place] [facility] [address] [place] [address] [place] Lymphocytes (Bld) [#/Vol] 1.0 103/ul Critically low 1.2-3.8 [facility] Comment on above: Performed By: #### C BC #### [facility] [place] [facility] [address] [place] [address] [place] Lymphocytes/100 WBC (Bld) 13.5 % Critically low 20.5-60.0 [facility] Comment on above: Performed By: #### C BC #### [facility] [place] [facility] [address] [place] [address] [place] Jones MANUAL DIFF REQ NO Normal [facility] Comment on above: Performed By: #### C BC #### [facility] [place] [facility] [address] [place], [place] [address] [place] MCH (RBC) [Entitic mass] 23.4 pg Critically low 26.7-34.0 [facility] Comment on above: Performed By: #### C BC #### [facility] [place] [facility] [address] [place], [place] [phone] Gumaromaryana Andradeen MCHC (RBC) [Mass/Vol] 29.8 g/dL Critically low 29.9-35.2 [facility] Comment on above: Performed By: #### C BC #### [facility] [place] [facility] [address] [place], [place] [phone] [place] MCV (RBC) [Entitic vol] 78.4 fL Critically low 81.0-99. 0 [facility] Comment on above: Performed By: #### C BC #### [facility] [place] [facility] [address] [place], [place] [phone] [place] Monocytes (Bld) [#/Vol] 0.3 103/ul Normal 0.3-0.8 [facility] Comment on above: Performed By: #### C BC #### [facility] [place] [facility] [address] [place], [place] [phone] [place] Monocytes/100 WBC (Bld) 4.0 % Normal 1.7-12.0 [facility] Comment on above: Performed By: #### C BC #### [facility] [place] [facility] [address] [place], [place] [phone] [place] Neutrophils (Bld) [#/Vol] 5.8 103/ul Normal 1.4-6.5 [facility] Comment on above: Performed By: #### C BC #### [facility] [place] [facility] [address] [place], [place] [phone] [place] Neutrophils/100 WBC (Bld) 82.2 % Critically high 43.0-75.0 [facility] Comment on above: Performed By: #### C BC #### [facility] [place] [facility] [address] [place], [place] [phone] [place] Platelet mean volume (Bld) [Entitic vol] 10.0 fL Normal 9.5-13.5 [facility] Comment on above: Performed By: #### C BC #### [facility] [place] [facility] [address] [place] [address] Gumaro Jones Platelets (Bld) [#/Vol] 261 103/ul Normal 150-450 [facility] Comment on above: Performed By: #### C BC #### [facility] [place] [facility] [address] [place] [address] Gum[place] Jones RBC (Bld) [#/Vol] 4.49 106/ul Normal 4.20-5.40 [facility] Comment on above: Performed By: #### C BC #### [facility] [place] [facility] [address] [place] [address] Gum[place] Jones WBC (Bld) [#/Vol] 7.0 103/ul Normal 4.0-11.0 [facility] Comment on above: Performed By: #### C BC #### [facility] [place] [facility] [address] [place] [address] G[place] Jones CRPon 12-10-2019 CRP [Mass/Vol] 1.5 mg/dL Critically high <=1.0 [facility] Comment on above: Performed By: #### C BC #### [facility] [place] [facility] [address] [place] [address] Gumaro Jones POINT OF CARE GLUCOSEon -2019 Glucose [Mass/Vol] 246 mg/dL Critically high 74-106 [facility] Comment on above: Result Comment: Samantha holland Meter Performed By: #### C BC #### [facility] [place] [facility] [address] [place] [address] Gumaro Jones Glucose [Mass/Vol] 190 mg/dL Critically high 74-106 [facility] Comment on above: Result Comment: Samantha holland Meter Performed By: #### C BC #### [facility] [place] [facility] [address] [place] [address] Gumaro Jones PROF 14(COMP METB)on 020 Albumin [Mass/Vol] 2.7 g/dL Critically low 3.5-5.0 [facility] Comment on above: Performed By: #### C BC #### [facility] [place] [facility] [address] [place], [place] [address] [place] Albumin/Globulin [Mass ratio] 0.6 {ratio} Normal [facility] Comment on above: Performed By: #### C BC #### [facility] [place] [facility] [address] [place], [place] [address] G[place] ALP [Catalytic activity/Vol] 98 U/L Normal 38-126 [facility] Comment on above: Performed By: #### C BC #### [facility] [place] [facility] [address] [place] [phone] [place] ALT [Catalytic activity/Vol] 37 U/L Normal 9-52 [facility] Comment on above: Performed By: #### C BC #### [facility] [place] [facility] [address] [place] [address] [place] Anion gap [Moles/Vol] 10.1 mmol/L Normal [facility] Comment on above: Performed By: #### C BC #### [facility] [place] [facility] [address] [place], [place] [address] G[place] AST [Catalytic activity/Vol] 42 U/L Critically high 14-36 [facility] Comment on above: Performed By: #### C BC #### [facility] [place] [facility] [address] [place], [place] [phone] [place] Bilirubin Ql (U) 0.3 mg/dL Normal 0.2-1.3 [facility] [place] [facility] Comment on above: Performed By: #### C BC #### [facility] [place] [facility] [address] [place], [place] [address] [place] Calcium [Mass/Vol] 8.4 mg/dL Normal 8.4-10.2 [facility] [place] [facility] Comment on above: Performed By: #### C BC #### [facility] [place] [facility] [address] [place], [place] [address] [place] Chloride [Moles/Vol] 102 mmol/L Normal 98-107 [facility] [place] [facility] Comment on above: Performed By: #### C BC #### [facility] [place] [facility] [address] [place], [place] [address] [place] CO2 [Moles/Vol] 28.8 mmol/L Normal 22.0-30.0 [facility] Comment on above: Performed By: #### C BC #### [facility] [place] [facility] [address] [place], [place] [phone] [place] Creatinine [Mass/Vol] 1.00 mg/dL Normal 0.52-1.04 [facility] Comment on above: Performed By: #### C BC #### [facility] [place] [facility] [address] [place] [address] [place] EGFR-AF PANAMANIAN >60 Normal >=60 [facility] Comment on above: Performed By: #### C BC #### [facility] [place] [facility] [address] [place] [address] [place] EGFR-NON AF PANAMANIAN >60 Normal >=60 [facility] Comment on above: Performed By: #### C BC #### [facility] [place] [facility] [address] [place] [address] [place] Globulin (S) [Mass/Vol] 4.4 g/dL Normal [facility] Comment on above: Performed By: #### C BC #### [facility] [place] [facility] [address] [place] [address] G[place] Glucose [Mass/Vol] 169 mg/dL Critically high 74-106 [facility] Comment on above: Performed By: #### C BC #### [facility] [place] [facility] [address] [place] [address] G[place] Potassium [Moles/Vol] 4.9 mmol/L Normal 3.4-5.0 [facility] Comment on above: Performed By: #### C BC #### [facility] [place] [facility] [address] [place], [place] [id number] [place] Protein [Mass/Vol] 7.1 g/dL Normal 6.1-8.2 [facility] Comment on above: Performed By: #### C BC #### [facility] [place] [facility] [address] [place] [address] Gumaro Sodium [Moles/Vol] 136 mmol/L Critically low 137-145 [facility] Comment on above: Performed By: #### C BC #### [facility] [place] [facility] [address] [place], [place] [address] [place] Urea nitrogen [Mass/Vol] 20.0 mg/dL Critically high 7.0-17.0 [facility] Comment on above: Performed By: #### C BC #### [facility] [place] [facility] [address] [place], [place] [address] G[place]aro Urea nitrogen/Creatinine [Mass ratio] 20.0 mg/mg Normal [facility] Comment on above: Performed By: #### C BC #### [facility] [place] [facility] [address] [place], [place] [address] [place] CARDIAC LANA 3-6on 0 CK [Catalytic activity/Vol] 53 U/L Normal 30-135 [facility] Comment on above: Performed By: #### V ITAD #### [facility] [place] [facility] [address] [place], [place] [address] G[place] CK.MB [Mass/Vol] ng/mL Normal <=2.37 [facility] Comment on above: Performed By: #### V ITAD #### [facility] [place] [facility] [address] [place], [place] [address] G[place]aro INR Coag (Bld) [Relative time] SEE BELOW Normal [facility] Comment on above: Result Comment: <0.0 34 ng/ml NEGATIVE 0.034-0.119 INDETERMINATE 0.120 AMI CUT OFF Performed By: #### V ITAD #### [facility] [place] [facility] [address] [place], [place] [address] [place]aro TROP <0.012 Normal <=0.034 [facility] Comment on above: Performed By: #### V ITAD #### [facility] [place] [facility] [address] [place], [place] [address] G[place]aro CK [Catalytic activity/Vol] 64 U/L Normal 30-135 [facility] [place] [facility] Comment on above: Performed By: #### V ITAD #### [facility] [place] [facility] [address] [place], [place] [address] G[place] CK.MB [Mass/Vol] 0.53 ng/mL Normal <=2.37 [facility] [place] [facility] Comment on above: Performed By: #### V ITAD #### [facility] [place] [facility] [address] [place] [address] Gumaro Jones INR Coag (Bld) [Relative time] SEE BELOW Normal [facility] Comment on above: Result Comment: <0.0 34 ng/ml NEGATIVE 0.034-0.119 INDETERMINATE 0.120 AMI CUT OFF Performed By: #### V ITAD #### [facility] [place] [facility] [address] [place] [address] G[place]aro TROP <0.012 Normal <=0.034 [facility] Comment on above: Performed By: #### V ITAD #### [facility] [place] [facility] [address] [place] [address] [place] CARDIAC LANA ADMITon 020 CK [Catalytic activity/Vol] 59 U/L Normal 30-135 [facility] [place] [facility] Comment on above: Performed By: #### V ITAD #### [facility] [place] [facility] [address] [place] [address] G[place]aro CK.MB [Mass/Vol] 0.88 ng/mL Normal <=2.37 [facility] [place] [facility] Comment on above: Performed By: #### V ITAD #### [facility] [place] [facility] [address] [place] [address] Gumaromaryana Andradeen INR Coag (Bld) [Relative time] SEE BELOW Normal [facility] [place] [facility] Comment on above: Result Comment: <0.0 34 ng/ml NEGATIVE 0.034-0.119 INDETERMINATE 0.120 AMI CUT OFF Performed By: #### V ITAD #### [facility] [place] [facility] [address] [place] [address] [place] TETE 36.0 ng/mL Normal <=61.5 [facility] [place] [facility] Comment on above: Performed By: #### V ITAD #### [facility] [place] [facility] [address] [place] [address] G[place] TROP <0.012 Normal <=0.034 [facility] Comment on above: Performed By: #### V ITAD #### [facility] [place] [facility] [address] [place] [address] G[place] CBC AUTO DIFFon 12-09-2019 Basophils (Bld) [#/Vol] 0.0 103/ul Normal 0.0-0.1 [facility] Comment on above: Performed By: #### V ITAD #### [facility] [place] [facility] [address] [place], [place] [address] Gumaro Basophils/100 WBC (Bld) 0.0 % Critically low 0.2-2.0 [facility] Comment on above: Performed By: #### V ITAD #### [facility] [place] [facility] [address] [place] [address] G[place]aro Eosinophils (Bld) [#/Vol] 0.0 103/ul Normal 0.0-0.7 [facility] Comment on above: Performed By: #### V ITAD #### [facility] [place] [facility] [address] [place] [address] [place] Eosinophils/100 WBC (Bld) 0.0 % Critically low 0.9-7.0 [facility] Comment on above: Performed By: #### V ITAD #### [facility] [place] [facility] [address] [place] [address] Gumaromaryana Jones Erythrocyte distribution width (RBC) [Ratio] 18.1 % Critically high 11.0-15.0 [facility] Comment on above: Performed By: #### V ITAD #### [facility] [place] [facility] [address] [place] [address] G[place]aro Hematocrit (Bld) [Volume fraction] 33.6 % Critically low 36.0-48.0 [facility] Comment on above: Performed By: #### V ITAD #### [facility] [place] [facility] [address] [place] [address] G[place]aro Hemoglobin (Bld) [Mass/Vol] 10.3 g/dL Critically low 12.0-16.0 [facility] Comment on above: Performed By: #### V ITAD #### [facility] [place] [facility] [address] [place] [address] G[place]aro IG # 0.02 10e3/ul Normal 0.00-0.03 [facility] Comment on above: Performed By: #### V ITAD #### [facility] [place] [facility] [address] [id number] [place] IG % 0.5 % Normal 0.0-0.5 [facility] Comment on above: Performed By: #### V ITAD #### [facility] [place] [facility] [address] [place], [place] [address] G[place]aro Lymphocytes (Bld) [#/Vol] 0.7 103/ul Critically low 1.2-3.8 [facility] Comment on above: Performed By: #### V ITAD #### [facility] [place] [facility] [address] [place], [place] [address] [place] Lymphocytes/100 WBC (Bld) 17.9 % Critically low 20.5-60.0 [facility] Comment on above: Performed By: #### V ITAD #### [facility] [place] [facility] [address] [place], [place] [address] [place] MANUAL DIFF REQ NO Normal [facility] Comment on above: Performed By: #### V ITAD #### [facility] [place] [facility] [address] [place] [address] Gumaromaryana Andradeen MCH (RBC) [Entitic mass] 23.6 pg Critically low 26.7-34.0 [facility] Comment on above: Performed By: #### V ITAD #### [facility] [place] [facility] [address] [place], [place] [address] Gumaromaryana Jones MCHC (RBC) [Mass/Vol] 30.7 g/dL Normal 29.9-35.2 [facility] [place] [facility] Comment on above: Performed By: #### V ITAD #### [facility] [place] [facility] [address] [place], [place] [address] [place] Karne MCV (RBC) [Entitic vol] 77.1 fL Critically low 81.0-99. 0 [facility] Comment on above: Performed By: #### V ITAD #### [facility] [place] [facility] [address] [place], [place] [address] G[place]aro Monocytes (Bld) [#/Vol] 0.2 103/ul Critically low 0.3-0.8 [facility] Comment on above: Performed By: #### V ITAD #### [facility] [place] [facility] [address] [place], [place] [address] [place] Monocytes/100 WBC (Bld) 4.9 % Normal 1.7-12.0 [facility] Comment on above: Performed By: #### V ITAD #### [facility] [place] [facility] [address] [place], [place] [address] G[place]aro Neutrophils (Bld) [#/Vol] 2.8 103/ul Normal 1.4-6.5 [facility] Comment on above: Performed By: #### V ITAD #### [facility] [place] [facility] [address] [place], [place] [address] [place] Neutrophils/100 WBC (Bld) 76.7 % Critically high 43.0-75.0 [facility] Comment on above: Performed By: #### V ITAD #### [facility] [place] [facility] [address] [place], [place] [address] Gumaromaryana Andradeen Platelet mean volume (Bld) [Entitic vol] 10.8 fL Normal 9.5-13.5 [facility] Comment on above: Performed By: #### V ITAD #### [facility] [place] [facility] [address] [place], [place] [address] G[place] Jones Platelets (Bld) [#/Vol] 197 103/ul Normal 150-450 [facility] Comment on above: Performed By: #### V ITAD #### [facility] [place] [facility] [address] [place], [place] [address] [place]aro RBC (Bld) [#/Vol] 4.36 106/ul Normal 4.20-5.40 [facility] Comment on above: Performed By: #### V ITAD #### [facility] [place] [facility] [address] [place], [place] [address] G[place]aro WBC (Bld) [#/Vol] 3.6 103/ul Critically low 4.0-11.0 [facility] Comment on above: Performed By: #### V ITAD #### [facility] [place] [facility] [address] [place], [place] [address] G[place] Jones CRPon 12-09-2019 CRP [Mass/Vol] 2.9 mg/dL Critically high <=1.0 [facility] Comment on above: Performed By: #### V ITAD #### [facility] [place] [facility] [address] [address] G[place] Jones CTA CHEST WO W CONon 020 CTA CHEST WO W CON EXAMINATION: CTA JANIS ST WO W CON HISTORY: SHORTNESS OF BREATH COMPARISON: CTA chest, 07/24/2017. TECHNIQUE: CT angiography of the pulmonary arteries following the administration of 100 mL Omnipaque 350. intravenous contrast. Coronal and sagittal MIP (maximum intensity projection) images were performed. Dose reduction techniques were achieved by using automated exposure control and/or adjustment of mA and/or kV according to patient size and/or use of iterative reconstruction technique. FINDINGS: There is good contrast opacification of the pulmonary arteries. No filling defects in the pulmonary arteries. No acute pulmonary emboli. Heart size is normal. No pericardial effusion. Thoracic aorta is normal in size. Trachea is normal. Esophagus is normal. No mediastinal lymphadenopathy. No pleural effusion. No pneumothorax. There are linear bands of atelectasis in both lower lobes. There are a few scattered subtle areas of groundglass airspace opacification in the lungs predominantly in the lower lobes. There is no dense airspace consolidation. No acute findings in the upper abdomen. No acute thoracic spine compression fracture. IMPRESSION: 1. No acute pulmonary emboli. 2. There are linear bands of atelectasis in both lower lobes. 3. Subtle patchy areas of groundglass airspace density predominantly in the lower lobes nonspecific. This could be related to atelectasis or air-trapping versus mild pneumonitis. 4. No mediastinal lymphadenopathy. Electronically authenticated by: ISMA CHRISTIANSEN Date: 2019-12-09 18:57 Normal [facility] POINT OF CARE GLUCOSEon Glucose [Mass/Vol] 206 mg/dL Critically high 74-106 [facility] Comment on above: Performed By: #### C BC #### [facility] [place] [facility] [address] [address] [place] Jones Glucose [Mass/Vol] 283 mg/dL Critically high 74-106 [facility] Comment on above: Performed By: #### C BC #### [facility] [place] [facility] [address] [place], [place] [address] G[place] Glucose [Mass/Vol] 197 mg/dL Critically high 74-106 [facility] Comment on above: Performed By: #### V ITAD #### [facility] [place] [facility] [address] [place], [place] [address] G[place] PROF 14(COMP METB)on 020 Albumin [Mass/Vol] 2.6 g/dL Critically low 3.5-5.0 [facility] Comment on above: Performed By: #### V ITAD #### [facility] [place] [facility] [address] [place], [place] [address] G[place]aro Albumin/Globulin [Mass ratio] 0.6 {ratio} Normal [facility] Comment on above: Performed By: #### V ITAD #### [facility] [place] [facility] [address] [place] [address] Gumaro ALP [Catalytic activity/Vol] 102 U/L Normal 38-126 [facility] Comment on above: Performed By: #### V ITAD #### [facility] [place] [facility] [address] [place], [place] [address] G[place]aro ALT [Catalytic activity/Vol] 28 U/L Normal 9-52 [facility] Comment on above: Performed By: #### V ITAD #### [facility] [place] [facility] [address] [place], [place] [address] [place] Anion gap [Moles/Vol] 10.8 mmol/L Normal [facility] Comment on above: Performed By: #### V ITAD #### [facility] [place] [facility] [address] [place], [place] [address] G[place]aro AST [Catalytic activity/Vol] 33 U/L Normal 14-36 [facility] Comment on above: Performed By: #### V ITAD #### [facility] [place] [facility] [address] [place], [place] [address] G[place] Bilirubin Ql (U) 0.3 mg/dL Normal 0.2-1.3 [facility] Comment on above: Performed By: #### V ITAD #### [facility] [place] [facility] [address] [place] [address] G[place]aro Calcium [Mass/Vol] 8.5 mg/dL Normal 8.4-10.2 [facility] Comment on above: Performed By: #### V ITAD #### [facility] [place] [facility] [address] [place] [address] G[place] Chloride [Moles/Vol] 103 mmol/L Normal 98-107 [facility] [place] [facility] Comment on above: Performed By: #### V ITAD #### [facility] [place] [facility] [address] [place] [address] G[place] CO2 [Moles/Vol] 27.9 mmol/L Normal 22.0-30.0 [facility] Comment on above: Performed By: #### V ITAD #### [facility] [place] [facility] [address] [place] [address] G[place]aro Creatinine [Mass/Vol] 0.90 mg/dL Normal 0.52-1.04 [facility] Comment on above: Performed By: #### V ITAD #### [facility] [place] [facility] [address] [place] [address] [place] EGFR-AF PANAMANIAN >60 Normal >=60 [facility] Comment on above: Performed By: #### V ITAD #### [facility] [place] [facility] [address] [place] [address] [place] EGFR-NON AF PANAMANIAN >60 Normal >=60 [facility] Comment on above: Performed By: #### V ITAD #### [facility] [place] [facility] [address] [place] [address] G[place] Globulin (S) [Mass/Vol] 4.5 g/dL Normal [facility] Comment on above: Performed By: #### V ITAD #### [facility] [place] [facility] [address] [place] [address] G[place]aro Glucose [Mass/Vol] 211 mg/dL Critically high 74-106 [facility] Comment on above: Performed By: #### V ITAD #### [facility] [place] [facility] [address] [place] [address] G[place]aro Potassium [Moles/Vol] 4.7 mmol/L Normal 3.4-5.0 [facility] Comment on above: Performed By: #### V ITAD #### [facility] [place] [facility] [address] [place] [address] G[place] Protein [Mass/Vol] 7.1 g/dL Normal 6.1-8.2 [facility] [place] [facility] Comment on above: Performed By: #### V ITAD #### [facility] [place] [facility] [address] [place] [address] G[place] Sodium [Moles/Vol] 137 mmol/L Normal 137-145 [facility] [place] [facility] Comment on above: Performed By: #### V ITAD #### [facility] [place] [facility] [address] [place] [address] G[place]aro Urea nitrogen [Mass/Vol] 12.0 mg/dL Normal 7.0-17.0 [facility] Comment on above: Performed By: #### V ITAD #### [facility] [place] [facility] [address] [place] [address] [place]aro Urea nitrogen/Creatinine [Mass ratio] 13.3 mg/mg Normal [facility] Comment on above: Performed By: #### V ITAD #### [facility] [place] [facility] [address] [place], [place] [address] G[place]aro CBC W MANUAL DIFFon 12-08-19 20 ATYPICAL LYMPH # Normal [facility] [place] [facility] Comment on above: Performed By: #### B MP, TSH, LIVER, LIPID #### [facility] [place] [facility] [address] [place] [address] [place] ATYPICAL LYMPH % Normal [facility] [place] [facility] Comment on above: Performed By: #### B MP, TSH, LIVER, LIPID #### [facility] [place] [facility] [address] [place] [address] [place] BAND # Normal 0.0-0.3 [facility] [place] [facility] Comment on above: Performed By: #### B MP, TSH, LIVER, LIPID #### [facility] [place] [facility] [address] [place] [address] [place] BAND % Normal 0-5 [facility] [place] [facility] Comment on above: Performed By: #### B MP, TSH, LIVER, LIPID #### [facility] [place] [facility] [address] [address] [place] BASOM # 0.00 103/ul Normal 0.00-0.10 [facility] [place] [facility] Comment on above: Performed By: #### B MP, TSH, LIVER, LIPID #### [facility] [place] [facility] [address] [address] [place] BASOM % 0.0 % Critically low 0.2-2.0 [facility] [place] [facility] Comment on above: Performed By: #### B MP, TSH, LIVER, LIPID #### [facility] [place] [facility] [address] [place] [address] [place] BLAST # Normal [facility] [place] [facility] Comment on above: Performed By: #### B MP, TSH, LIVER, LIPID #### [facility] [place] [facility] [address] [place] [address] [place] BLAST % Normal [facility] [place] [facility] Comment on above: Performed By: #### B MP, TSH, LIVER, LIPID #### [facility] [place] [facility] [address] [address] [place] CORRECTED WBC Normal 4.0-11.0 [facility] [place] [facility] Comment on above: Performed By: #### B MP, TSH, LIVER, LIPID #### [facility] [place] [facility] [address] [place] [address] [place] Eosinophils (Bld) [#/Vol] 0.00 103/ul Normal 0.00-0.70 [facility] [place] [facility] Comment on above: Performed By: #### B MP, TSH, LIVER, LIPID #### [facility] [place] [facility] [address] [place] [address] G[place] Eosinophils/100 WBC (Bld) 0.0 % Critically low 0.9-7.0 [facility] [place] [facility] Comment on above: Performed By: #### B MP, TSH, LIVER, LIPID #### [facility] [place] [facility] [address] [place] [address] G[place]aro Erythrocyte distribution width (RBC) [Ratio] 18.2 % Critically high 11.0-15.0 [facility] Comment on above: Performed By: #### B MP, TSH, LIVER, LIPID #### [facility] [place] [facility] [address] [address] G[place] Jones Hematocrit (Bld) [Volume fraction] 35.8 % Critically low 36.0-48.0 [facility] [place] [facility] Comment on above: Performed By: #### B MP, TSH, LIVER, LIPID #### [facility] [place] [facility] [address] [place] [address] G[place]aro Hemoglobin (Bld) [Mass/Vol] 10.7 g/dl Critically low 12.0-16.0 [facility] [place] [facility] Comment on above: Performed By: #### B MP, TSH, LIVER, LIPID #### [facility] [place] [facility] [address] [place] [address] G[place]aro LYMPHM # 0.54 103/ul Critically low 1.20-3.80 [facility] [place] [facility] Comment on above: Performed By: #### B MP, TSH, LIVER, LIPID #### [facility] [place] [facility] [address] [place] [address] [place]aro LYMPHM% 18.0 % Critically low 20.5-60.0 [facility] [place] [facility] Comment on above: Performed By: #### B MP, TSH, LIVER, LIPID #### [facility] [place] [facility] [address] [place] [address] Gumaro Jones MCH (RBC) [Entitic mass] 23.2 pg Critically low 26.7-34.0 [facility] Comment on above: Performed By: #### B MP, TSH, LIVER, LIPID #### [facility] [place] [facility] [address] [place] [address] Gumaro Jones MCHC (RBC) [Mass/Vol] 29.9 g/dl Normal 29.9-35.2 [facility] [place] [facility] Comment on above: Performed By: #### B MP, TSH, LIVER, LIPID #### [facility] [place] [facility] [address] [place] [address] Gumaro Jones MCV (RBC) [Entitic vol] 77.5 fL Critically low 81.0-99. 0 [facility] Comment on above: Performed By: #### B MP, TSH, LIVER, LIPID #### [facility] [place] [facility] [address] [place] [address] [place] METAMYELOCYTE # Normal [facility] Comment on above: Performed By: #### B MP, TSH, LIVER, LIPID #### [facility] [place] [facility] [address] [place] [address] [place] METAMYELOCYTE % Normal [facility] Comment on above: Performed By: #### B MP, TSH, LIVER, LIPID #### [facility] [place] [facility] [address] [place] [address] Gumaro MONOM# 0.09 103/ul Critically low 0.30-0.80 [facility] Comment on above: Performed By: #### B MP, TSH, LIVER, LIPID #### [facility] [place] [facility] [address] [place] [address] G[place]aro MONOM% 3.0 % Normal 1.7-12.0 [facility] Comment on above: Performed By: #### B MP, TSH, LIVER, LIPID #### [facility] [place] [facility] [address] [place] [address] [place] MYELOCYTE # Normal [facility] Comment on above: Performed By: #### B MP, TSH, LIVER, LIPID #### [facility] [place] [facility] [address] [place] [address] [place] MYELOCYTE % Normal [facility] Comment on above: Performed By: #### B MP, TSH, LIVER, LIPID #### [facility] [place] [facility] [address] [place] [address] G[place]aro NRBC Normal [facility] Comment on above: Performed By: #### B MP, TSH, LIVER, LIPID #### [facility] [place] [facility] [address] [place] [address] G[place]aro Platelet mean volume (Bld) [Entitic vol] 9.7 fL Normal 9.5-13.5 [facility] Comment on above: Performed By: #### B MP, TSH, LIVER, LIPID #### [facility] [place] [facility] [address] [place] [address] Gumaro Platelets (Bld) [#/Vol] 222 103/ul Normal 150-450 [facility] Comment on above: Performed By: #### B MP, TSH, LIVER, LIPID #### [facility] [place] [facility] [address] [place] [address] G[place] Jones RBC (Bld) [#/Vol] 4.62 106/ul Normal 4.20-5.40 [facility] Comment on above: Performed By: #### B MP, TSH, LIVER, LIPID #### [facility] [place] [facility] [address] [place] [address] Gumaromaryana Andradeen SEG # 2.37 103/ul Normal 1.40-6.50 [facility] Comment on above: Performed By: #### B MP, TSH, LIVER, LIPID #### [facility] [place] [facility] [address] [place] [address] Gumaro Jones Segmented neutrophils/100 WBC (Bld) 79.0 % Critically high 43.0-75.0 [facility] Comment on above: Performed By: #### B MP, TSH, LIVER, LIPID #### [facility] [place] [facility] [address] [place] [address] Gumaro Jones WBC (Bld) [#/Vol] 3.0 103/ul Critically low 4.0-11.0 [facility] Comment on above: Performed By: #### B MP, TSH, LIVER, LIPID #### [facility] [place] [facility] [address] [place] [address] Gumaro Jones CRPon 12-08-2019 CRP [Mass/Vol] 4.7 mg/dL Critically high <=1.0 [facility] Comment on above: Performed By: #### B MP, TSH, LIVER, LIPID #### [facility] [place] [facility] [address] [place] [address] Gumaro Jones CULTURE URINEon 12-08-2019 CULTURE URINE Culture Observations : NORMAL GENITAL BARB. NO POTENTIAL PATHOGENS SEEN. Normal [facility] [place] [facility] Comment on above: Performed By: #### V ITAD #### [facility] [place] [facility] [address] [place] [address] Gumaro Jones POINT OF CARE GLUCOSEon Glucose [Mass/Vol] 223 mg/dL Critically high 74-106 [facility] Comment on above: Performed By: #### V ITAD #### [facility] [place] [facility] [address] [place], [place] [address] G[place]aro Glucose [Mass/Vol] 179 mg/dL Critically high 74-106 [facility] Comment on above: Performed By: #### V ITAD #### [facility] [place] [facility] [address] [place], [place] [address] G[place]aro Glucose [Mass/Vol] 286 mg/dL Critically high 74-106 [facility] Comment on above: Performed By: #### B MP, TSH, LIVER, LIPID #### [facility] [place] [facility] [address] [place], [place] [address] [place] PROF 14(COMP METB)on 020 Albumin [Mass/Vol] 2.7 g/dL Critically low 3.5-5.0 [facility] Comment on above: Performed By: #### B MP, TSH, LIVER, LIPID #### [facility] [place] [facility] [address] [place] [id number] [place] Albumin/Globulin [Mass ratio] 0.6 {ratio} Normal [facility] Comment on above: Performed By: #### B MP, TSH, LIVER, LIPID #### [facility] [place] [facility] [address] [place], [place] [address] [place] ALP [Catalytic activity/Vol] 110 U/L Normal 38-126 [facility] Comment on above: Performed By: #### B MP, TSH, LIVER, LIPID #### [facility] [place] [facility] [address] [place], [place] [address] [place] ALT [Catalytic activity/Vol] 35 U/L Normal 9-52 [facility] Comment on above: Performed By: #### B MP, TSH, LIVER, LIPID #### [facility] [place] [facility] [address] [place], [place] [address] [place] Anion gap [Moles/Vol] 10.5 mmol/L Normal [facility] Comment on above: Performed By: #### B MP, TSH, LIVER, LIPID #### [facility] [place] [facility] [address] [place], [place] [address] [place] AST [Catalytic activity/Vol] 49 U/L Critically high 14-36 [facility] Comment on above: Performed By: #### B MP, TSH, LIVER, LIPID #### [facility] [place] [facility] [address] [place] [address] [place] Bilirubin Ql (U) 0.4 mg/dL Normal 0.2-1.3 [facility] [place] [facility] Comment on above: Performed By: #### B MP, TSH, LIVER, LIPID #### [facility] [place] [facility] [address] [place] [address] [place] Calcium [Mass/Vol] 8.4 mg/dL Normal 8.4-10.2 [facility] [place] [facility] Comment on above: Performed By: #### B MP, TSH, LIVER, LIPID #### [facility] [place] [facility] [address] [place] [address] [place] Chloride [Moles/Vol] 104 mmol/L Normal 98-107 [facility] [place] [facility] Comment on above: Performed By: #### B MP, TSH, LIVER, LIPID #### [facility] [place] [facility] [address] [place] [address] G[place] CO2 [Moles/Vol] 27.6 mmol/L Normal 22.0-30.0 [facility] [place] [facility] Comment on above: Performed By: #### B MP, TSH, LIVER, LIPID #### [facility] [place] [facility] [address] [place] [address] [place] Creatinine [Mass/Vol] 0.84 mg/dL Normal 0.52-1.04 [facility] [place] [facility] Comment on above: Performed By: #### B MP, TSH, LIVER, LIPID #### [facility] [place] [facility] [address] [place] [address] [place] EGFR-AF PANAMANIAN >60 Normal >=60 [facility] [place] [facility] Comment on above: Performed By: #### B MP, TSH, LIVER, LIPID #### [facility] [place] [facility] [address] [place] [address] [place] EGFR-NON AF PANAMANIAN >60 Normal >=60 [facility] [place] [facility] Comment on above: Performed By: #### B MP, TSH, LIVER, LIPID #### [facility] [place] [facility] [address] [place] [address] [place] Globulin (S) [Mass/Vol] 4.6 g/dL Normal [facility] Comment on above: Performed By: #### B MP, TSH, LIVER, LIPID #### [facility] [place] [facility] [address] [place] [address] [place] Glucose [Mass/Vol] 188 mg/dL Critically high 74-106 [facility] Comment on above: Performed By: #### B MP, TSH, LIVER, LIPID #### [facility] [place] [facility] [address] [place] [address] [place] Potassium [Moles/Vol] 4.1 mmol/L Normal 3.4-5.0 [facility] Comment on above: Performed By: #### B MP, TSH, LIVER, LIPID #### [facility] [place] [facility] [address] [place] [address] [place] Protein [Mass/Vol] 7.3 g/dL Normal 6.1-8.2 [facility] Comment on above: Performed By: #### B MP, TSH, LIVER, LIPID #### [facility] [place] [facility] [address] [place] [address] [place] Sodium [Moles/Vol] 138 mmol/L Normal 137-145 [facility] Comment on above: Performed By: #### B MP, TSH, LIVER, LIPID #### [facility] [place] [facility] [address] [place] [address] [place] Urea nitrogen [Mass/Vol] 8.0 mg/dL Normal 7.0-17.0 [facility] Comment on above: Performed By: #### B MP, TSH, LIVER, LIPID #### [facility] [place] [facility] [address] [place] [address] [place] Urea nitrogen/Creatinine [Mass ratio] 9.5 mg/mg Normal [facility] [place] [facility] Comment on above: Performed By: #### B MP, TSH, LIVER, LIPID #### [facility] [place] [facility] [address] [place] [address] [place] UA RANDOM W/MICROSCOPICon Bacteria LM.HPF (Urine sed) [#/Area] NONE SEEN Normal NONE SEEN [facility] [place] [facility] Comment on above: Performed By: #### B MP, TSH, LIVER, LIPID #### [facility] [place] [facility] [address] [place] [address] [place] Bilirubin [Mass/Vol] Negative Normal NEGATIVE [facility] [place] [facility] Comment on above: Performed By: #### B MP, TSH, LIVER, LIPID #### [facility] [place] [facility] [address] [place] [address] [place] BLOOD LARGE Normal NEGATIVE [facility] [place] [facility] Comment on above: Performed By: #### B MP, TSH, LIVER, LIPID #### [facility] [place] [facility] [address] [place] [address] [place] CAST NONE SEEN Normal NONE SEEN [facility] [place] [facility] Comment on above: Performed By: #### B MP, TSH, LIVER, LIPID #### [facility] [place] [facility] [address] [place] [address] [place] Clarity (U) CLEAR Normal [facility] [place] [facility] Comment on above: Performed By: #### B MP, TSH, LIVER, LIPID #### [facility] [place] [facility] [address] [place] [address] [place] Color (U) LT. YELLOW Normal YELLOW [facility] [place] [facility] Comment on above: Performed By: #### B MP, TSH, LIVER, LIPID #### [facility] [place] [facility] [address] [place] [address] [place] Crystals LM Nom (Urine sed) NONE SEEN Normal NONE SEEN [facility] [place] [facility] Comment on above: Performed By: #### B MP, TSH, LIVER, LIPID #### [facility] [place] [facility] [address] [place] [address] [place] Epithelial cells LM.HPF (Urine sed) [#/Area] FEW Normal [facility] [place] [facility] Comment on above: Performed By: #### B MP, TSH, LIVER, LIPID #### [facility] [place] [facility] [address] [place] [address] [place] Glucose [Mass/Vol] Negative Normal NEGATIVE [facility] [place] [facility] Comment on above: Performed By: #### B MP, TSH, LIVER, LIPID #### [facility] [place] [facility] [address] [place] [address] [place] Ketones Ql (U) Negative Normal NEGATIVE [facility] Comment on above: Performed By: #### B MP, TSH, LIVER, LIPID #### [facility] [place] [facility] [address] [place], [place] [phone] [place] MUCOUS NONE SEEN Normal NONE SEEN [facility] [place] [facility] Comment on above: Performed By: #### B MP, TSH, LIVER, LIPID #### [facility] [place] [facility] [address] [place] [phone] [place] Nitrite Ql (U) Negative Normal NEGATIVE [facility] Comment on above: Performed By: #### B MP, TSH, LIVER, LIPID #### [facility] [place] [facility] [address] [place] [address] [place] pH (Bld) 8.0 Normal 5-9 [facility] Comment on above: Performed By: #### B MP, TSH, LIVER, LIPID #### [facility] [place] [facility] [address] [place], [place] [phone] [place] Protein [Mass/Vol] Negative Normal [facility] Comment on above: Performed By: #### B MP, TSH, LIVER, LIPID #### [facility] [place] [facility] [address] [place] [address] [place] RBC (Bld) [#/Vol] 10-20 Normal 0-2 [facility] Comment on above: Performed By: #### B MP, TSH, LIVER, LIPID #### [facility] [place] [facility] [address] [place], [place] [phone] [place] SPEC GRAVITY 1.010 Normal 1.005-<=1.0 25 [facility] Comment on above: Performed By: #### B MP, TSH, LIVER, LIPID #### [facility] [place] [facility] [address] [place] [address] [place] Urobilinogen Qn (U) 0.2 EU/dl Normal [facility] [place] [facility] Comment on above: Performed By: #### B MP, TSH, LIVER, LIPID #### [facility] [place] [facility] [address] [place], [place] [phone] [place] WBC (Bld) [#/Vol] Negative Normal NEGATIVE [facility] Comment on above: Performed By: #### B MP, TSH, LIVER, LIPID #### [facility] [place] [facility] [address] [place], [place] [address] [place] WBC (Bld) [#/Vol] NONE SEEN Normal NONE SEEN [facility] Comment on above: Performed By: #### B MP, TSH, LIVER, LIPID #### [facility] [place] [facility] [address] [place], [place] [address] [place] XR CHEST 1 Von 12-08-2019 XR CHEST 1 V EXAM: XR CHEST 1 V HISTORY: Shortness of breath. COMPARISON: Chest x-ray from September 07, 2018. TECHNIQUE: Single AP view of the chest was performed. FINDINGS: There is mild mid to lower lung zone hazy interstitial opacity. Tiny pleural effusions cannot be entirely excluded although opacity at the costophrenic angles is favored to represent overlapping structures. The cardiomediastinal silhouette is borderline prominent. The osseous structures are intact. IMPRESSION: Mild mid to lower lung zone hazy interstitial opacity, nonspecific, potentially representing atelectasis, pneumonitis or mild pulmonary vascular congestion. Borderline prominence of the cardiomediastinal silhouette. Further evaluation with follow-up CT chest exam is advisable for more complete characterization/assessm ent. Electronically authenticated by: MENG CHAIREZ Date: 2019-12-08 00:40 Normal [facility] [place] [facility] CBC AUTO DIFFon 12-07-2019 Basophils (Bld) [#/Vol] 0.0 103/ul Normal 0.0-0.1 [facility] Comment on above: Performed By: #### B MP, TSH, LIVER, LIPID #### [facility] [place] [facility] [address] [place], [place] [address] [place] Basophils/100 WBC (Bld) 0.5 % Normal 0.2-2.0 [facility] Comment on above: Performed By: #### B MP, TSH, LIVER, LIPID #### [facility] [place] [facility] [address] [place], [place] [address] [place] Eosinophils (Bld) [#/Vol] 0.2 103/ul Normal 0.0-0.7 [facility] Comment on above: Performed By: #### B MP, TSH, LIVER, LIPID #### [facility] [place] [facility] [address] [place] [address] [place] Eosinophils/100 WBC (Bld) 5.5 % Normal 0.9-7.0 [facility] [place] [facility] Comment on above: Performed By: #### B MP, TSH, LIVER, LIPID #### [facility] [place] [facility] [address] [place] [address] [place] Erythrocyte distribution width (RBC) [Ratio] 18.3 % Critically high 11.0-15.0 [facility] [place] [facility] Comment on above: Performed By: #### B MP, TSH, LIVER, LIPID #### [facility] [place] [facility] [address] [place] [address] [place] Hematocrit (Bld) [Volume fraction] 35.8 % Critically low 36.0-48.0 [facility] Comment on above: Performed By: #### B MP, TSH, LIVER, LIPID #### [facility] [place] [facility] [address] [place] [address] [place] Hemoglobin (Bld) [Mass/Vol] 10.7 g/dL Critically low 12.0-16.0 [facility] Comment on above: Performed By: #### B MP, TSH, LIVER, LIPID #### [facility] [place] [facility] [address] [place] [address] [place] IG # 0.02 10e3/ul Normal 0.00-0.03 [facility] [place] [facility] Comment on above: Performed By: #### B MP, TSH, LIVER, LIPID #### [facility] [place] [facility] [address] [place] [address] [place] IG % 0.5 % Normal 0.0-0.5 [facility] Comment on above: Performed By: #### B MP, TSH, LIVER, LIPID #### [facility] [place] [facility] [address] [place] [address] [place] Lymphocytes (Bld) [#/Vol] 0.8 103/ul Critically low 1.2-3.8 [facility] Comment on above: Performed By: #### B MP, TSH, LIVER, LIPID #### [facility] [place] [facility] [address] [place] [address] [place] Lymphocytes/100 WBC (Bld) 21.1 % Normal 20.5-60.0 [facility] Comment on above: Performed By: #### B MP, TSH, LIVER, LIPID #### [facility] [place] [facility] [address] [place] [address] [place] Andradeen MANUAL DIFF REQ NO Normal [facility] Comment on above: Performed By: #### B MP, TSH, LIVER, LIPID #### [facility] [place] [facility] [address] [place], [place] [phone] [place] MCH (RBC) [Entitic mass] 23.5 pg Critically low 26.7-34.0 [facility] Comment on above: Performed By: #### B MP, TSH, LIVER, LIPID #### [facility] [place] [facility] [address] [place] [address] [place] MCHC (RBC) [Mass/Vol] 29.9 g/dL Normal 29.9-35.2 [facility] [place] [facility] Comment on above: Performed By: #### B MP, TSH, LIVER, LIPID #### [facility] [place] [facility] [address] [place] [address] [place] MCV (RBC) [Entitic vol] 78.7 fL Critically low 81.0-99. 0 [facility] [place] [facility] Comment on above: Performed By: #### B MP, TSH, LIVER, LIPID #### [facility] [place] [facility] [address] [place] [address] [place] Monocytes (Bld) [#/Vol] 0.5 103/ul Normal 0.3-0.8 [facility] Comment on above: Performed By: #### B MP, TSH, LIVER, LIPID #### [facility] [place] [facility] [address] [place] [address] [place] Monocytes/100 WBC (Bld) 12.6 % Critically high 1.7-12. 0 [facility] [place] [facility] Comment on above: Performed By: #### B MP, TSH, LIVER, LIPID #### [facility] [place] [facility] [address] [place] [address] [place] Neutrophils (Bld) [#/Vol] 2.4 103/ul Normal 1.4-6.5 [facility] [place] [facility] Comment on above: Performed By: #### B MP, TSH, LIVER, LIPID #### [facility] [place] [facility] [address] [place] [address] [place] Neutrophils/100 WBC (Bld) 59.8 % Normal 43.0-75.0 [facility] [place] [facility] Comment on above: Performed By: #### B MP, TSH, LIVER, LIPID #### [facility] [place] [facility] [address] [place] [phone] [place] Platelet mean volume (Bld) [Entitic vol] 9.5 fL Normal 9.5-13.5 [facility] [place] [facility] Comment on above: Performed By: #### B MP, TSH, LIVER, LIPID #### [facility] [place] [facility] [address] [place] [address] [place] Platelets (Bld) [#/Vol] 211 103/ul Normal 150-450 [facility] Comment on above: Performed By: #### B MP, TSH, LIVER, LIPID #### [facility] [place] [facility] [address] [place] [address] [place] RBC (Bld) [#/Vol] 4.55 106/ul Normal 4.20-5.40 [facility] [place] [facility] Comment on above: Performed By: #### B MP, TSH, LIVER, LIPID #### [facility] [place] [facility] [address] [place] [address] [place] WBC (Bld) [#/Vol] 4.0 103/ul Normal 4.0-11.0 [facility] [place] [facility] Comment on above: Performed By: #### B MP, TSH, LIVER, LIPID #### [facility] [place] [facility] [address] [place] [address] [place] CRPon 12-07-2019 CRP [Mass/Vol] 6.2 mg/dL Critically high <=1.0 [facility] [place] [facility] Comment on above: Performed By: #### B MP, TSH, LIVER, LIPID #### [facility] [place] [facility] [address] [place] [address] [place] LACTATE/LACTIC ACIDon 2019 Lactate [Moles/Vol] 1.9 mmol/L Normal 0.7-2.0 [facility] [place] [facility] Comment on above: Performed By: #### B MP, TSH, LIVER, LIPID #### [facility] [place] [facility] [address] [phone] [place] Jones PROF 14(COMP METB)on 020 Albumin [Mass/Vol] 2.8 g/dL Critically low 3.5-5.0 [facility] [place] [facility] Comment on above: Performed By: #### B MP, TSH, LIVER, LIPID #### [facility] [place] [facility] [address] [place] [address] [place] Albumin/Globulin [Mass ratio] 0.6 {ratio} Normal [facility] Comment on above: Performed By: #### B MP, TSH, LIVER, LIPID #### [facility] [place] [facility] [address] [place] [address] [place] ALP [Catalytic activity/Vol] 116 U/L Normal 38-126 [facility] Comment on above: Performed By: #### B MP, TSH, LIVER, LIPID #### [facility] [place] [facility] [address] [place] [address] Gumaromaryana Jones ALT [Catalytic activity/Vol] 31 U/L Normal 9-52 [facility] Comment on above: Performed By: #### B MP, TSH, LIVER, LIPID #### [facility] [place] [facility] [address] [place] [address] [place] Anion gap [Moles/Vol] 6.6 mmol/L Normal [facility] Comment on above: Performed By: #### B MP, TSH, LIVER, LIPID #### [facility] [place] [facility] [address] [place] [address] [place] AST [Catalytic activity/Vol] 48 U/L Critically high 14-36 [facility] Comment on above: Performed By: #### B MP, TSH, LIVER, LIPID #### [facility] [place] [facility] [address] [place] [phone] [place] Bilirubin Ql (U) 0.3 mg/dL Normal 0.2-1.3 [facility] [place] [facility] Comment on above: Performed By: #### B MP, TSH, LIVER, LIPID #### [facility] [place] [facility] [address] [place] [address] [place] Calcium [Mass/Vol] 8.5 mg/dL Normal 8.4-10.2 [facility] Comment on above: Performed By: #### B MP, TSH, LIVER, LIPID #### [facility] [place] [facility] [address] [place] [address] [place] Chloride [Moles/Vol] 104 mmol/L Normal 98-107 [facility] Comment on above: Performed By: #### B MP, TSH, LIVER, LIPID #### [facility] [place] [facility] [address] [place] [address] [place] CO2 [Moles/Vol] 31.1 mmol/L Critically high 22.0-30.0 [facility] Comment on above: Performed By: #### B MP, TSH, LIVER, LIPID #### [facility] [place] [facility] [address] [place] [address] [place] Creatinine [Mass/Vol] 0.99 mg/dL Normal 0.52-1.04 [facility] Comment on above: Performed By: #### B MP, TSH, LIVER, LIPID #### [facility] [place] [facility] [address] [place] [address] [place] EGFR-AF PANAMANIAN >60 Normal >=60 [facility] Comment on above: Performed By: #### B MP, TSH, LIVER, LIPID #### [facility] [place] [facility] [address] [place] [address] [place] EGFR-NON AF PANAMANIAN >60 Normal >=60 [facility] Comment on above: Performed By: #### B MP, TSH, LIVER, LIPID #### [facility] [place] [facility] [address] [place] [address] [place] Globulin (S) [Mass/Vol] 4.7 g/dL Normal [facility] Comment on above: Performed By: #### B MP, TSH, LIVER, LIPID #### [facility] [place] [facility] [address] [place] [address] [place] Glucose [Mass/Vol] 110 mg/dL Critically high 74-106 [facility] Comment on above: Performed By: #### B MP, TSH, LIVER, LIPID #### [facility] [place] [facility] [address] [place] [address] [place] Potassium [Moles/Vol] 3.7 mmol/L Normal 3.4-5.0 [facility] Comment on above: Performed By: #### B MP, TSH, LIVER, LIPID #### [facility] [place] [facility] [address] [place] [address] [place] Protein [Mass/Vol] 7.5 g/dL Normal 6.1-8.2 [facility] [place] [facility] Comment on above: Performed By: #### B MP, TSH, LIVER, LIPID #### [facility] [place] [facility] [address] [place] [address] [place] Sodium [Moles/Vol] 138 mmol/L Normal 137-145 [facility] [place] [facility] Comment on above: Performed By: #### B MP, TSH, LIVER, LIPID #### [facility] [place] [facility] [address] [place] [address] [place] Urea nitrogen [Mass/Vol] 10.0 mg/dL Normal 7.0-17.0 [facility] Comment on above: Performed By: #### B MP, TSH, LIVER, LIPID #### [facility] [place] [facility] [address] [place] [address] [place] Urea nitrogen/Creatinine [Mass ratio] 10.1 mg/mg Normal [facility] [place] [facility] Comment on above: Performed By: #### B MP, TSH, LIVER, LIPID #### [facility] [place] [facility] [address] [place] [address] [place] COVID-19 PCRon 11-14-2019 SARS-CoV-2, KARY Not Detected Normal Not Detected [facility] [place] [facility] Comment on above: Result Comment: This test was developed and its performance characteristics determined by [employer]. This test has not been FDA cleared or approved. This test has been authorized by FDA under an Emergency Use Authorization (EUA). This test is only authorized for the duration of time the declaration that circumstances exist justifying the authorization of the emergency use of in vitro diagnostic tests for detection of SARS-CoV-2 virus and/or diagnosis of COVID-19 infection under section 564(b)(1) of the Act, 21 U.S.C. 360bbb-3(b)(1), unless the authorization is terminated or revoked sooner. When diagnostic testing is negative, the possibility of a false negative result should be considered in the context of a patient's recent exposures and the presence of clinical signs and symptoms consistent with COVID-19. An individual without symptoms of COVID-19 and who is not shedding SARS-CoV-2 virus would expect to have a negative (not detected) result in this assay. Performed By: #### B MP, TSH, LIVER, LIPID #### [facility] [place] [facility] [address] [place] [address] [place] PRIORITY COVID PROCESSINGon 11-14-2019 Comment Comment Normal [facility] Comment on above: Result Comment: Rece ived Performed By: #### B MP, TSH, LIVER, LIPID #### [facility] [place] [facility] [address] [place] [address] [place] CBC AUTO DIFFon 11-13-2019 Basophils (Bld) [#/Vol] 0.0 103/ul Normal 0.0-0.1 [facility] Comment on above: Performed By: #### B MP, TSH, LIVER, LIPID #### [facility] [place] [facility] [address] [place] [address] [place] Basophils/100 WBC (Bld) 0.5 % Normal 0.2-2.0 [facility] Comment on above: Performed By: #### B MP, TSH, LIVER, LIPID #### [facility] [place] [facility] [address] [place] [address] [place] Eosinophils (Bld) [#/Vol] 0.5 103/ul Normal 0.0-0.7 [facility] Comment on above: Performed By: #### B MP, TSH, LIVER, LIPID #### [facility] [place] [facility] [address] [place] [address] [place] Eosinophils/100 WBC (Bld) 7.8 % Critically high 0.9-7.0 [facility] Comment on above: Performed By: #### B MP, TSH, LIVER, LIPID #### [facility] [place] [facility] [address] [place] [address] [place] Erythrocyte distribution width (RBC) [Ratio] 17.6 % Critically high 11.0-15.0 [facility] Comment on above: Performed By: #### B MP, TSH, LIVER, LIPID #### [facility] [place] [facility] [address] [place] [address] [place] Jones Hematocrit (Bld) [Volume fraction] 36.3 % Normal 36.0-48.0 [facility] [place] [facility] Comment on above: Performed By: #### B MP, TSH, LIVER, LIPID #### [facility] [place] [facility] [address] [place] [address] [place] Hemoglobin (Bld) [Mass/Vol] 10.8 g/dL Critically low 12.0-16.0 [facility] [place] [facility] Comment on above: Performed By: #### B MP, TSH, LIVER, LIPID #### [facility] [place] [facility] [address] [place] [address] [place] IG # 0.02 10e3/ul Normal 0.00-0.03 [facility] Comment on above: Performed By: #### B MP, TSH, LIVER, LIPID #### [facility] [place] [facility] [address] [place] [address] [place] IG % 0.3 % Normal 0.0-0.5 [facility] Comment on above: Performed By: #### B MP, TSH, LIVER, LIPID #### [facility] [place] [facility] [address] [place] [address] [place] Lymphocytes (Bld) [#/Vol] 1.5 103/ul Normal 1.2-3.8 [facility] [place] [facility] Comment on above: Performed By: #### B MP, TSH, LIVER, LIPID #### [facility] [place] [facility] [address] [place] [address] [place] Lymphocytes/100 WBC (Bld) 22.8 % Normal 20.5-60.0 [facility] Comment on above: Performed By: #### B MP, TSH, LIVER, LIPID #### [facility] [place] [facility] [address] [place] [address] Gumaromaryana Andradeen MANUAL DIFF REQ NO Normal [facility] [place] [facility] Comment on above: Performed By: #### B MP, TSH, LIVER, LIPID #### [facility] [place] [facility] [address] [address] [place] MCH (RBC) [Entitic mass] 23.1 pg Critically low 26.7-34.0 [facility] Comment on above: Performed By: #### B MP, TSH, LIVER, LIPID #### [facility] [place] [facility] [address] [address] [place] MCHC (RBC) [Mass/Vol] 29.8 g/dL Critically low 29.9-35.2 [facility] Comment on above: Performed By: #### B MP, TSH, LIVER, LIPID #### [facility] [place] [facility] [address] [address] [place] MCV (RBC) [Entitic vol] 77.6 fL Critically low 81.0-99. 0 [facility] Comment on above: Performed By: #### B MP, TSH, LIVER, LIPID #### [facility] [place] [facility] [address] [address] [place] Monocytes (Bld) [#/Vol] 0.5 103/ul Normal 0.3-0.8 [facility] Comment on above: Performed By: #### B MP, TSH, LIVER, LIPID #### [facility] [place] [facility] [address] [place] [address] [place] Monocytes/100 WBC (Bld) 7.4 % Normal 1.7-12.0 [facility] Comment on above: Performed By: #### B MP, TSH, LIVER, LIPID #### [facility] [place] [facility] [address] [place] [address] [place] Neutrophils (Bld) [#/Vol] 3.9 103/ul Normal 1.4-6.5 [facility] Comment on above: Performed By: #### B MP, TSH, LIVER, LIPID #### [facility] [place] [facility] [address] [place] [address] [place] Neutrophils/100 WBC (Bld) 61.2 % Normal 43.0-75.0 [facility] Comment on above: Performed By: #### B MP, TSH, LIVER, LIPID #### [facility] [place] [facility] [address] [place] [address] [place] Jones Platelet mean volume (Bld) [Entitic vol] 9.9 fL Normal 9.5-13.5 [facility] Comment on above: Performed By: #### B MP, TSH, LIVER, LIPID #### [facility] [place] [facility] [address] [place] [address] [place] Jones Platelets (Bld) [#/Vol] 297 103/ul Normal 150-450 [facility] Comment on above: Performed By: #### B MP, TSH, LIVER, LIPID #### [facility] [place] [facility] [address] [place] [address] [place] Jones RBC (Bld) [#/Vol] 4.68 106/ul Normal 4.20-5.40 [facility] Comment on above: Performed By: #### B MP, TSH, LIVER, LIPID #### [facility] [place] [facility] [address] [place] [address] [place] Jones WBC (Bld) [#/Vol] 6.4 103/ul Normal 4.0-11.0 [facility] Comment on above: Performed By: #### B MP, TSH, LIVER, LIPID #### [facility] [place] [facility] [address] [place] [address] [place] Jones CRPon 11-13-2019 CRP [Mass/Vol] 5.6 mg/dL Critically high <=1.0 [facility] Comment on above: Performed By: #### B MP, TSH, LIVER, LIPID #### [facility] [place] [facility] [address] [place] [address] [place] Jones PROF 14(COMP METB)on 020 Albumin [Mass/Vol] 2.9 g/dL Critically low 3.5-5.0 [facility] Comment on above: Performed By: #### B MP, TSH, LIVER, LIPID #### [facility] [place] [facility] [address] [place] [address] [place] Jones Albumin/Globulin [Mass ratio] 0.6 {ratio} Normal [facility] [place] [facility] Comment on above: Performed By: #### B MP, TSH, LIVER, LIPID #### [facility] [place] [facility] [address] [id number] [place] ALP [Catalytic activity/Vol] 96 U/L Normal 38-126 [facility] [place] [facility] Comment on above: Performed By: #### B MP, TSH, LIVER, LIPID #### [facility] [place] [facility] [address] [id number] [place] ALT [Catalytic activity/Vol] 24 U/L Normal 9-52 [facility] [place] [facility] Comment on above: Performed By: #### B MP, TSH, LIVER, LIPID #### [facility] [place] [facility] [address] [id number] [place] Anion gap [Moles/Vol] 6.7 mmol/L Normal [facility] Comment on above: Performed By: #### B MP, TSH, LIVER, LIPID #### [facility] [place] [facility] [address] [address] [place] AST [Catalytic activity/Vol] 27 U/L Normal 14-36 [facility] Comment on above: Performed By: #### B MP, TSH, LIVER, LIPID #### [facility] [place] [facility] [address] [id number] [place] Bilirubin Ql (U) 0.5 mg/dL Normal 0.2-1.3 [facility] [place] [facility] Comment on above: Performed By: #### B MP, TSH, LIVER, LIPID #### [facility] [place] [facility] [address] [phone] [place] Calcium [Mass/Vol] 8.7 mg/dL Normal 8.4-10.2 [facility] [place] [facility] Comment on above: Performed By: #### B MP, TSH, LIVER, LIPID #### [facility] [place] [facility] [address] [phone] [place] Chloride [Moles/Vol] 99 mmol/L Normal 98-107 [facility] [place] [facility] Comment on above: Performed By: #### B MP, TSH, LIVER, LIPID #### [facility] [place] [facility] [address] [id number] [place] CO2 [Moles/Vol] 34.4 mmol/L Critically high 22.0-30.0 [facility] Comment on above: Performed By: #### B MP, TSH, LIVER, LIPID #### [facility] [place] [facility] [address] [place] [address] [place] Creatinine [Mass/Vol] 1.08 mg/dL Critically high 0.52-1.04 [facility] Comment on above: Performed By: #### B MP, TSH, LIVER, LIPID #### [facility] [place] [facility] [address] [place] [address] [place] EGFR-AF PANAMANIAN >60 Normal >=60 [facility] Comment on above: Performed By: #### B MP, TSH, LIVER, LIPID #### [facility] [place] [facility] [address] [place] [address] [place] EGFR-NON AF PANAMANIAN 57 mL/min/1.73m2 Critically low >=60 [facility] Comment on above: Performed By: #### B MP, TSH, LIVER, LIPID #### [facility] [place] [facility] [address] [place] [address] [place] Globulin (S) [Mass/Vol] 4.9 g/dL Normal [facility] Comment on above: Performed By: #### B MP, TSH, LIVER, LIPID #### [facility] [place] [facility] [address] [place] [address] [place] Glucose [Mass/Vol] 123 mg/dL Critically high 74-106 [facility] Comment on above: Performed By: #### B MP, TSH, LIVER, LIPID #### [facility] [place] [facility] [address] [place] [address] [place] Potassium [Moles/Vol] 4.1 mmol/L Normal 3.4-5.0 [facility] Comment on above: Performed By: #### B MP, TSH, LIVER, LIPID #### [facility] [place] [facility] [address] [place] [address] [place] Protein [Mass/Vol] 7.8 g/dL Normal 6.1-8.2 [facility] Comment on above: Performed By: #### B MP, TSH, LIVER, LIPID #### [facility] [place] [facility] [address] [place], [place] [phone] [place] Sodium [Moles/Vol] 136 mmol/L Critically low 137-145 Th [facility] Comment on above: Performed By: #### B MP, TSH, LIVER, LIPID #### [facility] [place] [facility] [address] [place] [address] [place] Urea nitrogen [Mass/Vol] 14.0 mg/dL Normal 7.0-17.0 [facility] Comment on above: Performed By: #### B MP, TSH, LIVER, LIPID #### [facility] [place] [facility] [address] [place] [address] [place] Urea nitrogen/Creatinine [Mass ratio] 13.0 mg/mg Normal [facility] Comment on above: Performed By: #### B MP, TSH, LIVER, LIPID #### [facility] [place] [facility] [address] [place] [address] [place] CBC AUTO DIFFon 11-12-2019 Basophils (Bld) [#/Vol] 0.0 103/ul Normal 0.0-0.1 [facility] Comment on above: Performed By: #### B MP, TSH, LIVER, LIPID #### [facility] [place] [facility] [address] [place], [place] [phone] [place] Basophils/100 WBC (Bld) 0.5 % Normal 0.2-2.0 [facility] Comment on above: Performed By: #### B MP, TSH, LIVER, LIPID #### [facility] [place] [facility] [address] [place], [place] [phone] [place] Eosinophils (Bld) [#/Vol] 0.4 103/ul Normal 0.0-0.7 [facility] Comment on above: Performed By: #### B MP, TSH, LIVER, LIPID #### [facility] [place] [facility] [address] [place] [address] [place] Eosinophils/100 WBC (Bld) 6.7 % Normal 0.9-7.0 [facility] Comment on above: Performed By: #### B MP, TSH, LIVER, LIPID #### [facility] [place] [facility] [address] [place] [address] [place] Erythrocyte distribution width (RBC) [Ratio] 17.4 % Critically high 11.0-15.0 [facility] Comment on above: Performed By: #### B MP, TSH, LIVER, LIPID #### [facility] [place] [facility] [address] [place] [address] [place] Jones Hematocrit (Bld) [Volume fraction] 38.1 % Normal 36.0-48.0 [facility] [place] [facility] Comment on above: Performed By: #### B MP, TSH, LIVER, LIPID #### [facility] [place] [facility] [address] [place] [address] [place] Hemoglobin (Bld) [Mass/Vol] 11.3 g/dL Critically low 12.0-16.0 [facility] [place] [facility] Comment on above: Performed By: #### B MP, TSH, LIVER, LIPID #### [facility] [place] [facility] [address] [place] [address] [place]aro IG # 0.02 10e3/ul Normal 0.00-0.03 [facility] Comment on above: Performed By: #### B MP, TSH, LIVER, LIPID #### [facility] [place] [facility] [address] [place] [address] [place] IG % 0.3 % Normal 0.0-0.5 [facility] Comment on above: Performed By: #### B MP, TSH, LIVER, LIPID #### [facility] [place] [facility] [address] [place] [address] [place] Lymphocytes (Bld) [#/Vol] 1.6 103/ul Normal 1.2-3.8 [facility] [place] [facility] Comment on above: Performed By: #### B MP, TSH, LIVER, LIPID #### [facility] [place] [facility] [address] [place] [address] [place] Lymphocytes/100 WBC (Bld) 24.3 % Normal 20.5-60.0 [facility] Comment on above: Performed By: #### B MP, TSH, LIVER, LIPID #### [facility] [place] [facility] [address] [place] [address] Gumaromaryana Andradeen MANUAL DIFF REQ NO Normal [facility] [place] [facility] Comment on above: Performed By: #### B MP, TSH, LIVER, LIPID #### [facility] [place] [facility] [address] [address] [place] MCH (RBC) [Entitic mass] 22.9 pg Critically low 26.7-34.0 [facility] Comment on above: Performed By: #### B MP, TSH, LIVER, LIPID #### [facility] [place] [facility] [address] [address] [place] MCHC (RBC) [Mass/Vol] 29.7 g/dL Critically low 29.9-35.2 [facility] Comment on above: Performed By: #### B MP, TSH, LIVER, LIPID #### [facility] [place] [facility] [address] [place] [address] [place] MCV (RBC) [Entitic vol] 77.1 fL Critically low 81.0-99. 0 [facility] Comment on above: Performed By: #### B MP, TSH, LIVER, LIPID #### [facility] [place] [facility] [address] [address] [place] Monocytes (Bld) [#/Vol] 0.5 103/ul Normal 0.3-0.8 [facility] [place] [facility] Comment on above: Performed By: #### B MP, TSH, LIVER, LIPID #### [facility] [place] [facility] [address] [place] [address] G[place] Monocytes/100 WBC (Bld) 8.2 % Normal 1.7-12.0 [facility] Comment on above: Performed By: #### B MP, TSH, LIVER, LIPID #### [facility] [place] [facility] [address] [place] [address] [place] Neutrophils (Bld) [#/Vol] 3.8 103/ul Normal 1.4-6.5 [facility] Comment on above: Performed By: #### B MP, TSH, LIVER, LIPID #### [facility] [place] [facility] [address] [place] [address] [place] Neutrophils/100 WBC (Bld) 60.0 % Normal 43.0-75.0 [facility] Comment on above: Performed By: #### B MP, TSH, LIVER, LIPID #### [facility] [place] [facility] [address] [place] [address] G[place] Jones Platelet mean volume (Bld) [Entitic vol] 9.7 fL Normal 9.5-13.5 [facility] Comment on above: Performed By: #### B MP, TSH, LIVER, LIPID #### [facility] [place] [facility] [address] [place] [address] G[place] Jones Platelets (Bld) [#/Vol] 303 103/ul Normal 150-450 [facility] Comment on above: Performed By: #### B MP, TSH, LIVER, LIPID #### [facility] [place] [facility] [address] [place] [address] [place] Jones RBC (Bld) [#/Vol] 4.94 106/ul Normal 4.20-5.40 [facility] Comment on above: Performed By: #### B MP, TSH, LIVER, LIPID #### [facility] [place] [facility] [address] [place] [address] [place] Jones WBC (Bld) [#/Vol] 6.4 103/ul Normal 4.0-11.0 [facility] Comment on above: Performed By: #### B MP, TSH, LIVER, LIPID #### [facility] [place] [facility] [address] [place] [address] [place] Jones CRPon 11-12-2019 CRP [Mass/Vol] 5.3 mg/dL Critically high <=1.0 [facility] Comment on above: Performed By: #### B MP, TSH, LIVER, LIPID #### [facility] [place] [facility] [address] [place] [address] G[place] Jones PROF 14(COMP METB)on 020 Albumin [Mass/Vol] 3.0 g/dL Critically low 3.5-5.0 [facility] Comment on above: Performed By: #### B MP, TSH, LIVER, LIPID #### [facility] [place] [facility] [address] [place] [address] G[place] Jones Albumin/Globulin [Mass ratio] 0.6 {ratio} Normal [facility] [place] [facility] Comment on above: Performed By: #### B MP, TSH, LIVER, LIPID #### [facility] [place] [facility] [address] [place], [place] [address] G[place] ALP [Catalytic activity/Vol] 95 U/L Normal 38-126 [facility] Comment on above: Performed By: #### B MP, TSH, LIVER, LIPID #### [facility] [place] [facility] [address] [phone] [place] ALT [Catalytic activity/Vol] 23 U/L Normal 9-52 [facility] Comment on above: Performed By: #### B MP, TSH, LIVER, LIPID #### [facility] [place] [facility] [address] [phone] [place] Anion gap [Moles/Vol] 6.7 mmol/L Normal [facility] Comment on above: Performed By: #### B MP, TSH, LIVER, LIPID #### [facility] [place] [facility] [address] [address] [place] AST [Catalytic activity/Vol] 25 U/L Normal 14-36 [facility] Comment on above: Performed By: #### B MP, TSH, LIVER, LIPID #### [facility] [place] [facility] [address] [phone] [place] Bilirubin Ql (U) 0.6 mg/dL Normal 0.2-1.3 [facility] Comment on above: Performed By: #### B MP, TSH, LIVER, LIPID #### [facility] [place] [facility] [address] [phone] [place] Calcium [Mass/Vol] 8.2 mg/dL Critically low 8.4-10.2 [facility] Comment on above: Performed By: #### B MP, TSH, LIVER, LIPID #### [facility] [place] [facility] [address] [phone] [place] Chloride [Moles/Vol] 97 mmol/L Critically low 98-107 [facility] Comment on above: Performed By: #### B MP, TSH, LIVER, LIPID #### [facility] [place] [facility] [address] [phone] [place] CO2 [Moles/Vol] 37.7 mmol/L Critically high 22.0-30.0 [facility] Comment on above: Performed By: #### B MP, TSH, LIVER, LIPID #### [facility] [place] [facility] [address] [place] [address] [place] Creatinine [Mass/Vol] 1.13 mg/dL Critically high 0.52-1.04 [facility] Comment on above: Performed By: #### B MP, TSH, LIVER, LIPID #### [facility] [place] [facility] [address] [place] [address] [place] EGFR-AF PANAMANIAN >60 Normal >=60 [facility] Comment on above: Performed By: #### B MP, TSH, LIVER, LIPID #### [facility] [place] [facility] [address] [place] [address] [place] EGFR-NON AF PANAMANIAN 54 mL/min/1.73m2 Critically low >=60 [facility] Comment on above: Performed By: #### B MP, TSH, LIVER, LIPID #### [facility] [place] [facility] [address] [place] [address] [place] Globulin (S) [Mass/Vol] 5.0 g/dL Normal [facility] Comment on above: Performed By: #### B MP, TSH, LIVER, LIPID #### [facility] [place] [facility] [address] [place] [address] [place] Glucose [Mass/Vol] 124 mg/dL Critically high 74-106 [facility] Comment on above: Performed By: #### B MP, TSH, LIVER, LIPID #### [facility] [place] [facility] [address] [place] [address] [place] Potassium [Moles/Vol] 3.4 mmol/L Normal 3.4-5.0 [facility] Comment on above: Performed By: #### B MP, TSH, LIVER, LIPID #### [facility] [place] [facility] [address] [place] [address] [place] Protein [Mass/Vol] 8.0 g/dL Normal 6.1-8.2 [facility] Comment on above: Performed By: #### B MP, TSH, LIVER, LIPID #### [facility] [place] [facility] [address] [place], [place] [phone] [place] Sodium [Moles/Vol] 138 mmol/L Normal 137-145 [facility] Comment on above: Performed By: #### B MP, TSH, LIVER, LIPID #### [facility] [place] [facility] [address] [place], [place] [phone] [place] Urea nitrogen [Mass/Vol] 13.0 mg/dL Normal 7.0-17.0 [facility] Comment on above: Performed By: #### B MP, TSH, LIVER, LIPID #### [facility] [place] [facility] [address] [place] [address] G[place]aro Urea nitrogen/Creatinine [Mass ratio] 11.5 mg/mg Normal [facility] Comment on above: Performed By: #### B MP, TSH, LIVER, LIPID #### [facility] [place] [facility] [address] [place] [address] [place] CBC AUTO DIFFon 11-11-2019 Basophils (Bld) [#/Vol] 0.0 103/ul Normal 0.0-0.1 [facility] Comment on above: Performed By: #### B MP, TSH, LIVER, LIPID #### [facility] [place] [facility] [address] [place], [place] [phone] G[place] Basophils/100 WBC (Bld) 0.7 % Normal 0.2-2.0 [facility] Comment on above: Performed By: #### B MP, TSH, LIVER, LIPID #### [facility] [place] [facility] [address] [place], [place] [phone] [place] Eosinophils (Bld) [#/Vol] 0.4 103/ul Normal 0.0-0.7 [facility] Comment on above: Performed By: #### B MP, TSH, LIVER, LIPID #### [facility] [place] [facility] [address] [place] [address] G[place]aro Eosinophils/100 WBC (Bld) 6.0 % Normal 0.9-7.0 [facility] Comment on above: Performed By: #### B MP, TSH, LIVER, LIPID #### [facility] [place] [facility] [address] [place], [place] [phone] [place] Erythrocyte distribution width (RBC) [Ratio] 17.5 % Critically high 11.0-15.0 [facility] Comment on above: Performed By: #### B MP, TSH, LIVER, LIPID #### [facility] [place] [facility] [address] [place] [address] G[place] Jones Hematocrit (Bld) [Volume fraction] 35.8 % Critically low 36.0-48.0 [facility] [place] [facility] Comment on above: Performed By: #### B MP, TSH, LIVER, LIPID #### [facility] [place] [facility] [address] [place] [address] G[place]aro Hemoglobin (Bld) [Mass/Vol] 10.8 g/dL Critically low 12.0-16.0 [facility] Comment on above: Performed By: #### B MP, TSH, LIVER, LIPID #### [facility] [place] [facility] [address] [place] [address] Gumaro IG # 0.02 10e3/ul Normal 0.00-0.03 [facility] Comment on above: Performed By: #### B MP, TSH, LIVER, LIPID #### [facility] [place] [facility] [address] [place] [address] G[place] IG % 0.3 % Normal 0.0-0.5 [facility] Comment on above: Performed By: #### B MP, TSH, LIVER, LIPID #### [facility] [place] [facility] [address] [place] [address] G[place]aro Lymphocytes (Bld) [#/Vol] 1.5 103/ul Normal 1.2-3.8 [facility] [place] [facility] Comment on above: Performed By: #### B MP, TSH, LIVER, LIPID #### [facility] [place] [facility] [address] [place] [address] G[place]aro Lymphocytes/100 WBC (Bld) 25.1 % Normal 20.5-60.0 [facility] Comment on above: Performed By: #### B MP, TSH, LIVER, LIPID #### [facility] [place] [facility] [address] [place] [address] Gumaromaryana Andradeen MANUAL DIFF REQ NO Normal [facility] [place] [facility] Comment on above: Performed By: #### B MP, TSH, LIVER, LIPID #### [facility] [place] [facility] [address] [address] [place] MCH (RBC) [Entitic mass] 23.1 pg Critically low 26.7-34.0 [facility] Comment on above: Performed By: #### B MP, TSH, LIVER, LIPID #### [facility] [place] [facility] [address] [address] G[place]aro MCHC (RBC) [Mass/Vol] 30.2 g/dL Normal 29.9-35.2 [facility] Comment on above: Performed By: #### B MP, TSH, LIVER, LIPID #### [facility] [place] [facility] [address] [place] [address] G[place]aro MCV (RBC) [Entitic vol] 76.7 fL Critically low 81.0-99. 0 [facility] Comment on above: Performed By: #### B MP, TSH, LIVER, LIPID #### [facility] [place] [facility] [address] [address] [place] Monocytes (Bld) [#/Vol] 0.5 103/ul Normal 0.3-0.8 [facility] Comment on above: Performed By: #### B MP, TSH, LIVER, LIPID #### [facility] [place] [facility] [address] [place] [address] G[place]aro Monocytes/100 WBC (Bld) 8.5 % Normal 1.7-12.0 [facility] Comment on above: Performed By: #### B MP, TSH, LIVER, LIPID #### [facility] [place] [facility] [address] [place] [address] G[place]aro Neutrophils (Bld) [#/Vol] 3.6 103/ul Normal 1.4-6.5 [facility] Comment on above: Performed By: #### B MP, TSH, LIVER, LIPID #### [facility] [place] [facility] [address] [place] [address] G[place]aro Neutrophils/100 WBC (Bld) 59.4 % Normal 43.0-75.0 [facility] Comment on above: Performed By: #### B MP, TSH, LIVER, LIPID #### [facility] [place] [facility] [address] [address] [place] Jones Platelet mean volume (Bld) [Entitic vol] 9.8 fL Normal 9.5-13.5 [facility] Comment on above: Performed By: #### B MP, TSH, LIVER, LIPID #### [facility] [place] [facility] [address] [place] [address] Gumaro Jones Platelets (Bld) [#/Vol] 296 103/ul Normal 150-450 [facility] Comment on above: Performed By: #### B MP, TSH, LIVER, LIPID #### [facility] [place] [facility] [address] [place] [address] Gumaro Jones RBC (Bld) [#/Vol] 4.67 106/ul Normal 4.20-5.40 [facility] Comment on above: Performed By: #### B MP, TSH, LIVER, LIPID #### [facility] [place] [facility] [address] [place] [address] Gumaro Jones WBC (Bld) [#/Vol] 6.0 103/ul Normal 4.0-11.0 [facility] Comment on above: Performed By: #### B MP, TSH, LIVER, LIPID #### [facility] [place] [facility] [address] [place] [address] Gumaro Jones CRPon 11-11-2019 CRP [Mass/Vol] 4.7 mg/dL Critically high <=1.0 [facility] Comment on above: Performed By: #### B MP, TSH, LIVER, LIPID #### [facility] [place] [facility] [address] [place] [address] Gumaro Jones PROF 14(COMP METB)on 020 Albumin [Mass/Vol] 3.0 g/dL Critically low 3.5-5.0 [facility] Comment on above: Performed By: #### B MP, TSH, LIVER, LIPID #### [facility] [place] [facility] [address] [place] [address] Gumaro Jones Albumin/Globulin [Mass ratio] 0.6 {ratio} Normal [facility] [place] [facility] Comment on above: Performed By: #### B MP, TSH, LIVER, LIPID #### [facility] [place] [facility] [address] [place], [place] [address] G[place]aro ALP [Catalytic activity/Vol] 90 U/L Normal 38-126 [facility] [place] [facility] Comment on above: Performed By: #### B MP, TSH, LIVER, LIPID #### [facility] [place] [facility] [address] [phone] [place] ALT [Catalytic activity/Vol] 23 U/L Normal 9-52 [facility] [place] [facility] Comment on above: Performed By: #### B MP, TSH, LIVER, LIPID #### [facility] [place] [facility] [address] [phone] [place] Anion gap [Moles/Vol] 7.2 mmol/L Normal [facility] Comment on above: Performed By: #### B MP, TSH, LIVER, LIPID #### [facility] [place] [facility] [address] [address] [place] AST [Catalytic activity/Vol] 26 U/L Normal 14-36 The [facility] [place] [facility] Comment on above: Performed By: #### B MP, TSH, LIVER, LIPID #### [facility] [place] [facility] [address] [id number] [place] Bilirubin Ql (U) 0.5 mg/dL Normal 0.2-1.3 [facility] [place] [facility] Comment on above: Performed By: #### B MP, TSH, LIVER, LIPID #### [facility] [place] [facility] [address] [id number] [place] Calcium [Mass/Vol] 8.4 mg/dL Normal 8.4-10.2 [facility] [place] [facility] Comment on above: Performed By: #### B MP, TSH, LIVER, LIPID #### [facility] [place] [facility] [address] [id number] [place] Chloride [Moles/Vol] 100 mmol/L Normal 98-107 [facility] [place] [facility] Comment on above: Performed By: #### B MP, TSH, LIVER, LIPID #### [facility] [place] [facility] [address] [id number] [place] CO2 [Moles/Vol] 34.9 mmol/L Critically high 22.0-30.0 [facility] Comment on above: Performed By: #### B MP, TSH, LIVER, LIPID #### [facility] [place] [facility] [address] [place] [address] G[place]aro Creatinine [Mass/Vol] 1.04 mg/dL Normal 0.52-1.04 [facility] Comment on above: Performed By: #### B MP, TSH, LIVER, LIPID #### [facility] [place] [facility] [address] [place] [address] [place] EGFR-AF PANAMANIAN >60 Normal >=60 [facility] Comment on above: Performed By: #### B MP, TSH, LIVER, LIPID #### [facility] [place] [facility] [address] [place] [address] [place] EGFR-NON AF PANAMANIAN 59 mL/min/1.73m2 Critically low >=60 [facility] Comment on above: Performed By: #### B MP, TSH, LIVER, LIPID #### [facility] [place] [facility] [address] [place] [address] G[place] Globulin (S) [Mass/Vol] 4.8 g/dL Normal [facility] Comment on above: Performed By: #### B MP, TSH, LIVER, LIPID #### [facility] [place] [facility] [address] [place] [address] Gu[place]ro Glucose [Mass/Vol] 115 mg/dL Critically high 74-106 [facility] Comment on above: Performed By: #### B MP, TSH, LIVER, LIPID #### [facility] [place] [facility] [address] [place] [address] G[place] Potassium [Moles/Vol] 3.1 mmol/L Critically low 3.4-5.0 [facility] Comment on above: Performed By: #### B MP, TSH, LIVER, LIPID #### [facility] [place] [facility] [address] [place] [address] [place] Protein [Mass/Vol] 7.8 g/dL Normal 6.1-8.2 [facility] Comment on above: Performed By: #### B MP, TSH, LIVER, LIPID #### [facility] [place] [facility] [address] [place], [place] [phone] Gumaro Sodium [Moles/Vol] 139 mmol/L Normal 137-145 [facility] Comment on above: Performed By: #### B MP, TSH, LIVER, LIPID #### [facility] [place] [facility] [address] [place] [address] G[place] Urea nitrogen [Mass/Vol] 12.0 mg/dL Normal 7.0-17.0 [facility] Comment on above: Performed By: #### B MP, TSH, LIVER, LIPID #### [facility] [place] [facility] [address] [address] [place] Urea nitrogen/Creatinine [Mass ratio] 11.5 mg/mg Normal [facility] Comment on above: Performed By: #### B MP, TSH, LIVER, LIPID #### [facility] [place] [facility] [address] [place] [address] Gumaro CBC AUTO DIFFon 11-10-2019 Basophils (Bld) [#/Vol] 0.0 103/ul Normal 0.0-0.1 [facility] Comment on above: Performed By: #### B MP, TSH, LIVER, LIPID #### [facility] [place] [facility] [address] [place], [place] [phone] G[place]aro Basophils/100 WBC (Bld) 0.5 % Normal 0.2-2.0 [facility] Comment on above: Performed By: #### B MP, TSH, LIVER, LIPID #### [facility] [place] [facility] [address] [place], [place] [phone] G[place] Eosinophils (Bld) [#/Vol] 0.3 103/ul Normal 0.0-0.7 [facility] Comment on above: Performed By: #### B MP, TSH, LIVER, LIPID #### [facility] [place] [facility] [address] [place] [address] Gumaro Eosinophils/100 WBC (Bld) 4.3 % Normal 0.9-7.0 [facility] Comment on above: Performed By: #### B MP, TSH, LIVER, LIPID #### [facility] [place] [facility] [address] [place] [address] [place] Erythrocyte distribution width (RBC) [Ratio] 17.6 % Critically high 11.0-15.0 [facility] Comment on above: Performed By: #### B MP, TSH, LIVER, LIPID #### [facility] [place] [facility] [address] [place] [address] G[place]aro Jones Hematocrit (Bld) [Volume fraction] 35.3 % Critically low 36.0-48.0 [facility] [place] [facility] Comment on above: Performed By: #### B MP, TSH, LIVER, LIPID #### [facility] [place] [facility] [address] [place] [address] G[place] Jones Hemoglobin (Bld) [Mass/Vol] 10.6 g/dL Critically low 12.0-16.0 [facility] [place] [facility] Comment on above: Performed By: #### B MP, TSH, LIVER, LIPID #### [facility] [place] [facility] [address] [place] [address] Gumaro IG # 0.02 10e3/ul Normal 0.00-0.03 [facility] Comment on above: Performed By: #### B MP, TSH, LIVER, LIPID #### [facility] [place] [facility] [address] [place] [address] G[place]aro IG % 0.3 % Normal 0.0-0.5 [facility] Comment on above: Performed By: #### B MP, TSH, LIVER, LIPID #### [facility] [place] [facility] [address] [place] [address] G[place]aro Lymphocytes (Bld) [#/Vol] 1.5 103/ul Normal 1.2-3.8 [facility] [place] [facility] Comment on above: Performed By: #### B MP, TSH, LIVER, LIPID #### [facility] [place] [facility] [address] [place] [address] Gmuaro Lymphocytes/100 WBC (Bld) 23.5 % Normal 20.5-60.0 [facility] [place] [facility] Comment on above: Performed By: #### B MP, TSH, LIVER, LIPID #### [facility] [place] [facility] [address] [place] [address] G[place]aro Jones MANUAL DIFF REQ NO Normal [facility] [place] [facility] Comment on above: Performed By: #### B MP, TSH, LIVER, LIPID #### [facility] [place] [facility] [address] [place] [address] G[place]aro MCH (RBC) [Entitic mass] 23.1 pg Critically low 26.7-34.0 [facility] Comment on above: Performed By: #### B MP, TSH, LIVER, LIPID #### [facility] [place] [facility] [address] [place] [address] G[place]aro MCHC (RBC) [Mass/Vol] 30.0 g/dL Normal 29.9-35.2 [facility] Comment on above: Performed By: #### B MP, TSH, LIVER, LIPID #### [facility] [place] [facility] [address] [place] [address] G[place]aro MCV (RBC) [Entitic vol] 76.9 fL Critically low 81.0-99. 0 [facility] Comment on above: Performed By: #### B MP, TSH, LIVER, LIPID #### [facility] [place] [facility] [address] [place] [address] [place] Monocytes (Bld) [#/Vol] 0.5 103/ul Normal 0.3-0.8 [facility] Comment on above: Performed By: #### B MP, TSH, LIVER, LIPID #### [facility] [place] [facility] [address] [place] [address] G[place] Monocytes/100 WBC (Bld) 8.2 % Normal 1.7-12.0 [facility] [place] [facility] Comment on above: Performed By: #### B MP, TSH, LIVER, LIPID #### [facility] [place] [facility] [address] [place] [address] G[place]aro Neutrophils (Bld) [#/Vol] 3.9 103/ul Normal 1.4-6.5 [facility] Comment on above: Performed By: #### B MP, TSH, LIVER, LIPID #### [facility] [place] [facility] [address] [place] [address] G[place]aro Neutrophils/100 WBC (Bld) 63.2 % Normal 43.0-75.0 [facility] Comment on above: Performed By: #### B MP, TSH, LIVER, LIPID #### [facility] [place] [facility] [address] [address] [place] Jones Platelet mean volume (Bld) [Entitic vol] 9.8 fL Normal 9.5-13.5 [facility] Comment on above: Performed By: #### B MP, TSH, LIVER, LIPID #### [facility] [place] [facility] [address] [place] [address] Gumaro Jones Platelets (Bld) [#/Vol] 281 103/ul Normal 150-450 [facility] Comment on above: Performed By: #### B MP, TSH, LIVER, LIPID #### [facility] [place] [facility] [address] [place], [place] [phone] G[place] Jones RBC (Bld) [#/Vol] 4.59 106/ul Normal 4.20-5.40 [facility] Comment on above: Performed By: #### B MP, TSH, LIVER, LIPID #### [facility] [place] [facility] [address] [place] [address] G[place] Jones WBC (Bld) [#/Vol] 6.2 103/ul Normal 4.0-11.0 [facility] Comment on above: Performed By: #### B MP, TSH, LIVER, LIPID #### [facility] [place] [facility] [address] [place] [address] [place] Jones CRPon 11-10-2019 CRP [Mass/Vol] 4.7 mg/dL Critically high <=1.0 [facility] Comment on above: Performed By: #### B MP, TSH, LIVER, LIPID #### [facility] [place] [facility] [address] [place] [address] G[place] Jones PREG HCG QUALon 11-10-2019 , QUAL Negative Normal NEGATIVE [facility] Comment on above: Performed By: #### B MP, TSH, LIVER, LIPID #### [facility] [place] [facility] [address] [place] [address] Gumaromaryana Andradeen PROF 14(COMP METB)on 020 Albumin [Mass/Vol] 3.1 g/dL Critically low 3.5-5.0 [facility] Comment on above: Performed By: #### B MP, TSH, LIVER, LIPID #### [facility] [place] [facility] [address] [place], [place] [address] [place] Albumin/Globulin [Mass ratio] 0.6 {ratio} Normal [facility] Comment on above: Performed By: #### B MP, TSH, LIVER, LIPID #### [facility] [place] [facility] [address] [place], [place] [address] G[place] ALP [Catalytic activity/Vol] 91 U/L Normal 38-126 [facility] Comment on above: Performed By: #### B MP, TSH, LIVER, LIPID #### [facility] [place] [facility] [address] [place], [place] [address] [place] ALT [Catalytic activity/Vol] 22 U/L Normal 9-52 [facility] Comment on above: Performed By: #### B MP, TSH, LIVER, LIPID #### [facility] [place] [facility] [address] [place], [place] [address] [place] Anion gap [Moles/Vol] 10.4 mmol/L Normal [facility] Comment on above: Performed By: #### B MP, TSH, LIVER, LIPID #### [facility] [place] [facility] [address] [place], [place] [address] [place] AST [Catalytic activity/Vol] 21 U/L Normal 14-36 [facility] Comment on above: Performed By: #### B MP, TSH, LIVER, LIPID #### [facility] [place] [facility] [address] [place], [place] [address] [place] Bilirubin Ql (U) 0.6 mg/dL Normal 0.2-1.3 [facility] [place] [facility] Comment on above: Performed By: #### B MP, TSH, LIVER, LIPID #### [facility] [place] [facility] [address] [place], [place] [address] [place] Calcium [Mass/Vol] 8.4 mg/dL Normal 8.4-10.2 [facility] Comment on above: Performed By: #### B MP, TSH, LIVER, LIPID #### [facility] [place] [facility] [address] [place], [place] [address] [place] Chloride [Moles/Vol] 103 mmol/L Normal 98-107 [facility] [place] [facility] Comment on above: Performed By: #### B MP, TSH, LIVER, LIPID #### [facility] [place] [facility] [address] [address] [place] CO2 [Moles/Vol] 29.8 mmol/L Normal 22.0-30.0 [facility] Comment on above: Performed By: #### B MP, TSH, LIVER, LIPID #### [facility] [place] [facility] [address] [place] [address] G[place]aro Creatinine [Mass/Vol] 0.95 mg/dL Normal 0.52-1.04 [facility] Comment on above: Performed By: #### B MP, TSH, LIVER, LIPID #### [facility] [place] [facility] [address] [place] [address] [place] EGFR-AF PANAMANIAN >60 Normal >=60 [facility] Comment on above: Performed By: #### B MP, TSH, LIVER, LIPID #### [facility] [place] [facility] [address] [place] [address] [place] EGFR-NON AF PANAMANIAN >60 Normal >=60 [facility] Comment on above: Performed By: #### B MP, TSH, LIVER, LIPID #### [facility] [place] [facility] [address] [place] [address] [place]aro Globulin (S) [Mass/Vol] 4.8 g/dL Normal [facility] Comment on above: Performed By: #### B MP, TSH, LIVER, LIPID #### [facility] [place] [facility] [address] [place] [address] G[place]aro Glucose [Mass/Vol] 118 mg/dL Critically high 74-106 [facility] Comment on above: Performed By: #### B MP, TSH, LIVER, LIPID #### [facility] [place] [facility] [address] [place] [address] [place] Potassium [Moles/Vol] 3.2 mmol/L Critically low 3.4-5.0 [facility] Comment on above: Performed By: #### B MP, TSH, LIVER, LIPID #### [facility] [place] [facility] [address] [place], [place] [address] [place] Protein [Mass/Vol] 7.9 g/dL Normal 6.1-8.2 [facility] Comment on above: Performed By: #### B MP, TSH, LIVER, LIPID #### [facility] [place] [facility] [address] [place] [address] G[place]aro Sodium [Moles/Vol] 140 mmol/L Normal 137-145 [facility] Comment on above: Performed By: #### B MP, TSH, LIVER, LIPID #### [facility] [place] [facility] [address] [place] [address] G[place]aro Urea nitrogen [Mass/Vol] 11.0 mg/dL Normal 7.0-17.0 [facility] Comment on above: Performed By: #### B MP, TSH, LIVER, LIPID #### [facility] [place] [facility] [address] [place] [address] G[place]aro Urea nitrogen/Creatinine [Mass ratio] 11.6 mg/mg Normal [facility] Comment on above: Performed By: #### B MP, TSH, LIVER, LIPID #### [facility] [place] [facility] [address] [place] [address] [place]aro CBC AUTO DIFFon 11-09-2019 Basophils (Bld) [#/Vol] 0.0 103/ul Normal 0.0-0.1 [facility] Comment on above: Performed By: #### B MP, TSH, LIVER, LIPID #### [facility] [place] [facility] [address] [place] [address] G[place]aro Basophils/100 WBC (Bld) 0.5 % Normal 0.2-2.0 [facility] Comment on above: Performed By: #### B MP, TSH, LIVER, LIPID #### [facility] [place] [facility] [address] [place], [place] [phone] G[place] Eosinophils (Bld) [#/Vol] 0.3 103/ul Normal 0.0-0.7 [facility] Comment on above: Performed By: #### B MP, TSH, LIVER, LIPID #### [facility] [place] [facility] [address] [place] [address] Gumaro Eosinophils/100 WBC (Bld) 3.4 % Normal 0.9-7.0 [facility] Comment on above: Performed By: #### B MP, TSH, LIVER, LIPID #### [facility] [place] [facility] [address] [place] [address] G[place]aro Erythrocyte distribution width (RBC) [Ratio] 17.9 % Critically high 11.0-15.0 [facility] Comment on above: Performed By: #### B MP, TSH, LIVER, LIPID #### [facility] [place] [facility] [address] [place] [address] G[place]aro Hematocrit (Bld) [Volume fraction] 37.9 % Normal 36.0-48.0 [facility] [place] [facility] Comment on above: Performed By: #### B MP, TSH, LIVER, LIPID #### [facility] [place] [facility] [address] [place] [address] G[place]aro Hemoglobin (Bld) [Mass/Vol] 11.1 g/dL Critically low 12.0-16.0 [facility] Comment on above: Performed By: #### B MP, TSH, LIVER, LIPID #### [facility] [place] [facility] [address] [place] [address] Gumaro IG # 0.02 10e3/ul Normal 0.00-0.03 [facility] [place] [facility] Comment on above: Performed By: #### B MP, TSH, LIVER, LIPID #### [facility] [place] [facility] [address] [place] [address] G[place]aro IG % 0.3 % Normal 0.0-0.5 [facility] [place] [facility] Comment on above: Performed By: #### B MP, TSH, LIVER, LIPID #### [facility] [place] [facility] [address] [place] [address] G[place]aro Lymphocytes (Bld) [#/Vol] 1.6 103/ul Normal 1.2-3.8 [facility] [place] [facility] Comment on above: Performed By: #### B MP, TSH, LIVER, LIPID #### [facility] [place] [facility] [address] [place] [address] Gumaro Lymphocytes/100 WBC (Bld) 21.9 % Normal 20.5-60.0 [facility] [place] [facility] Comment on above: Performed By: #### B MP, TSH, LIVER, LIPID #### [facility] [place] [facility] [address] [place] [address] G[place]aro MANUAL DIFF REQ NO Normal [facility] Comment on above: Performed By: #### B MP, TSH, LIVER, LIPID #### [facility] [place] [facility] [address] [address] Gumaromaryana Jones MCH (RBC) [Entitic mass] 22.8 pg Critically low 26.7-34.0 [facility] Comment on above: Performed By: #### B MP, TSH, LIVER, LIPID #### [facility] [place] [facility] [address] [place] [address] Gumaromaryana Andradeen MCHC (RBC) [Mass/Vol] 29.3 g/dL Critically low 29.9-35.2 [facility] Comment on above: Performed By: #### B MP, TSH, LIVER, LIPID #### [facility] [place] [facility] [address] [place] [address] Gumaromaryana Andradeen MCV (RBC) [Entitic vol] 78.0 fL Critically low 81.0-99. 0 [facility] Comment on above: Performed By: #### B MP, TSH, LIVER, LIPID #### [facility] [place] [facility] [address] [place] [address] Gumaro Monocytes (Bld) [#/Vol] 0.6 103/ul Normal 0.3-0.8 [facility] Comment on above: Performed By: #### B MP, TSH, LIVER, LIPID #### [facility] [place] [facility] [address] [place] [address] Gumaro Monocytes/100 WBC (Bld) 7.8 % Normal 1.7-12.0 [facility] Comment on above: Performed By: #### B MP, TSH, LIVER, LIPID #### [facility] [place] [facility] [address] [place] [address] Gumaro Neutrophils (Bld) [#/Vol] 4.9 103/ul Normal 1.4-6.5 [facility] Comment on above: Performed By: #### B MP, TSH, LIVER, LIPID #### [facility] [place] [facility] [address] [place] [address] Gumaro Jones Neutrophils/100 WBC (Bld) 66.1 % Normal 43.0-75.0 [facility] Comment on above: Performed By: #### B MP, TSH, LIVER, LIPID #### [facility] [place] [facility] [address] [place], [place] [phone] Gumaromaryana Jones Platelet mean volume (Bld) [Entitic vol] 9.8 fL Normal 9.5-13.5 [facility] [place] [facility] Comment on above: Performed By: #### B MP, TSH, LIVER, LIPID #### [facility] [place] [facility] [address] [place] [address] Gumaro Platelets (Bld) [#/Vol] 302 103/ul Normal 150-450 [facility] Comment on above: Performed By: #### B MP, TSH, LIVER, LIPID #### [facility] [place] [facility] [address] [place] [address] G[place]aro RBC (Bld) [#/Vol] 4.86 106/ul Normal 4.20-5.40 [facility] [place] [facility] Comment on above: Performed By: #### B MP, TSH, LIVER, LIPID #### [facility] [place] [facility] [address] [place], [place] [phone] G[place]aro WBC (Bld) [#/Vol] 7.4 103/ul Normal 4.0-11.0 [facility] [place] [facility] Comment on above: Performed By: #### B MP, TSH, LIVER, LIPID #### [facility] [place] [facility] [address] [place] [address] Gumaromaryana Andradeen CRPon 11-09-2019 CRP [Mass/Vol] 4.1 mg/dL Critically high <=1.0 [facility] [place] [facility] Comment on above: Performed By: #### B MP, TSH, LIVER, LIPID #### [facility] [place] [facility] [address] [place] [address] G[place]aro LACTATE/LACTIC ACIDon 2019 Lactate [Moles/Vol] 2.5 mmol/L Critically high 0.7-2.0 [facility] Comment on above: Result Comment: test repeated critical value verified Performed By: #### B MP, TSH, LIVER, LIPID #### [facility] [place] [facility] [address] [phone] G[place]aro Lactate [Moles/Vol] 2.3 mmol/L Critically high 0.7-2.0 [facility] Comment on above: Result Comment: TEST REPEATED; CRITICAL VALUE VERIFIED Performed By: #### B MP, TSH, LIVER, LIPID #### [facility] [place] [facility] [address] [id number] Gumaromaryana Jones PROF 14(COMP METB)on 020 Albumin [Mass/Vol] 3.3 g/dL Critically low 3.5-5.0 [facility] Comment on above: Performed By: #### B MP, TSH, LIVER, LIPID #### [facility] [place] [facility] [address] [address] G[place]aro Albumin/Globulin [Mass ratio] 0.6 {ratio} Normal [facility] Comment on above: Performed By: #### B MP, TSH, LIVER, LIPID #### [facility] [place] [facility] [address] [address] Gumaro ALP [Catalytic activity/Vol] 99 U/L Normal 38-126 [facility] Comment on above: Performed By: #### B MP, TSH, LIVER, LIPID #### [facility] [place] [facility] [address] [address] G[place]aro ALT [Catalytic activity/Vol] 25 U/L Normal 9-52 [facility] Comment on above: Performed By: #### B MP, TSH, LIVER, LIPID #### [facility] [place] [facility] [address] [phone] G[place]aro Anion gap [Moles/Vol] 11.3 mmol/L Normal [facility] Comment on above: Performed By: #### B MP, TSH, LIVER, LIPID #### [facility] [place] [facility] [address] [phone] Gumaro AST [Catalytic activity/Vol] 23 U/L Normal 14-36 [facility] Comment on above: Performed By: #### B MP, TSH, LIVER, LIPID #### [facility] [place] [facility] [address] [phone] G[place]aro Bilirubin Ql (U) 0.4 mg/dL Normal 0.2-1.3 [facility] Comment on above: Performed By: #### B MP, TSH, LIVER, LIPID #### [facility] [place] [facility] [address] [place] [address] Gumaro Calcium [Mass/Vol] 8.8 mg/dL Normal 8.4-10.2 [facility] [place] [facility] Comment on above: Performed By: #### B MP, TSH, LIVER, LIPID #### [facility] [place] [facility] [address] [place] [address] Gumaro Chloride [Moles/Vol] 105 mmol/L Normal 98-107 [facility] [place] [facility] Comment on above: Performed By: #### B MP, TSH, LIVER, LIPID #### [facility] [place] [facility] [address] [place] [address] Gumaro CO2 [Moles/Vol] 27.3 mmol/L Normal 22.0-30.0 [facility] [place] [facility] Comment on above: Performed By: #### B MP, TSH, LIVER, LIPID #### [facility] [place] [facility] [address] [place] [address] Gumaro Creatinine [Mass/Vol] 0.89 mg/dL Normal 0.52-1.04 [facility] Comment on above: Performed By: #### B MP, TSH, LIVER, LIPID #### [facility] [place] [facility] [address] [place] [address] Gumaro EGFR-AF PANAMANIAN >60 Normal >=60 [facility] [place] [facility] Comment on above: Performed By: #### B MP, TSH, LIVER, LIPID #### [facility] [place] [facility] [address] [place] [address] Gumaro EGFR-NON AF PANAMANIAN >60 Normal >=60 [facility] Comment on above: Performed By: #### B MP, TSH, LIVER, LIPID #### [facility] [place] [facility] [address] [place] [address] Gumaro Globulin (S) [Mass/Vol] 5.2 g/dL Normal [facility] Comment on above: Performed By: #### B MP, TSH, LIVER, LIPID #### [facility] [place] [facility] [address] [phone] Gumaro Glucose [Mass/Vol] 104 mg/dL Normal 74-106 [facility] Comment on above: Performed By: #### B MP, TSH, LIVER, LIPID #### [facility] [place] [facility] [address] [address] Gumaro Potassium [Moles/Vol] 3.6 mmol/L Normal 3.4-5.0 [facility] Comment on above: Performed By: #### B MP, TSH, LIVER, LIPID #### [facility] [place] [facility] [address] [address] G[place]aro Protein [Mass/Vol] 8.5 g/dL Critically high 6.1-8.2 [facility] Comment on above: Performed By: #### B MP, TSH, LIVER, LIPID #### [facility] [place] [facility] [address] [place] [address] Gumaro Sodium [Moles/Vol] 140 mmol/L Normal 137-145 [facility] Comment on above: Performed By: #### B MP, TSH, LIVER, LIPID #### [facility] [place] [facility] [address] [phone] Gumaro Urea nitrogen [Mass/Vol] 13.0 mg/dL Normal 7.0-17.0 [facility] Comment on above: Performed By: #### B MP, TSH, LIVER, LIPID #### [facility] [place] [facility] [address] [place] [address] Gumaro Urea nitrogen/Creatinine [Mass ratio] 14.6 mg/mg Normal [facility] Comment on above: Performed By: #### B MP, TSH, LIVER, LIPID #### [facility] [facility] [address] [place], [place] [id number] Gumaro CBC AUTO DIFFon 10-29-2019 Basophils (Bld) [#/Vol] 0.0 103/ul Normal 0.0-0.1 [facility] Comment on above: Performed By: #### B MP, TSH, LIVER, LIPID #### [facility] [address] [place], [place] [id number] Gumaro Basophils/100 WBC (Bld) 0.3 % Normal 0.2-2.0 [facility] Comment on above: Performed By: #### B MP, TSH, LIVER, LIPID #### [facility] [address] [address] G[place] Eosinophils (Bld) [#/Vol] 0.0 103/ul Normal 0.0-0.7 [facility] Comment on above: Performed By: #### B MP, TSH, LIVER, LIPID #### [facility] [address] [place] [address] Gumaro Eosinophils/100 WBC (Bld) 0.0 % Critically low 0.9-7.0 [facility] Comment on above: Performed By: #### B MP, TSH, LIVER, LIPID #### [facility] [address] [place] [address] G[place] Erythrocyte distribution width (RBC) [Ratio] 17.2 % Critically high 11.0-15.0 [facility] Comment on above: Performed By: #### B MP, TSH, LIVER, LIPID #### [facility] [address] [place] [address] G[place]aro Hematocrit (Bld) [Volume fraction] 32.2 % Critically low 36.0-48.0 [facility] Comment on above: Performed By: #### B MP, TSH, LIVER, LIPID #### [facility] [address] [place] [address] G[place]aro Hemoglobin (Bld) [Mass/Vol] 9.6 g/dL Critically low 12.0-16.0 [facility] Comment on above: Performed By: #### B MP, TSH, LIVER, LIPID #### [facility] [address] [place] [address] Gumaro IG # 0.02 10e3/ul Normal 0.00-0.03 [facility] Comment on above: Performed By: #### B MP, TSH, LIVER, LIPID #### [facility] [address] [place] [address] Gumaro IG % 0.3 % Normal 0.0-0.5 [facility] Comment on above: Performed By: #### B MP, TSH, LIVER, LIPID #### [facility] [address] [place] [address] G[place]aro Lymphocytes (Bld) [#/Vol] 0.6 103/ul Critically low 1.2-3.8 [facility] Comment on above: Performed By: #### B MP, TSH, LIVER, LIPID #### [facility] [address] [place] [address] Gumaro Jones Lymphocytes/100 WBC (Bld) 9.1 % Critically low 20.5-60.0 [facility] Comment on above: Performed By: #### B MP, TSH, LIVER, LIPID #### [facility] [address] [place] [address] Gumaro Jones MANUAL DIFF REQ NO Normal [facility] Comment on above: Performed By: #### B MP, TSH, LIVER, LIPID #### [facility] [address] [place] [address] Gumaromaryana Jones MCH (RBC) [Entitic mass] 23.0 pg Critically low 26.7-34.0 [facility] Comment on above: Performed By: #### B MP, TSH, LIVER, LIPID #### [facility] [address] [place] [address] Gumaro Jones MCHC (RBC) [Mass/Vol] 29.8 g/dL Critically low 29.9-35.2 [facility] Comment on above: Performed By: #### B MP, TSH, LIVER, LIPID #### [facility] [address] [place] [address] Gumaro Jones MCV (RBC) [Entitic vol] 77.2 fL Critically low 81.0-99. 0 [facility] Comment on above: Performed By: #### B MP, TSH, LIVER, LIPID #### [facility] [address] [place] [address] Gumaromaryana Jones Monocytes (Bld) [#/Vol] 0.3 103/ul Normal 0.3-0.8 [facility] Comment on above: Performed By: #### B MP, TSH, LIVER, LIPID #### [facility] [address] [place], [place] [id number] Gumaro Monocytes/100 WBC (Bld) 4.6 % Normal 1.7-12.0 [facility] Comment on above: Performed By: #### B MP, TSH, LIVER, LIPID #### [facility] [address] [place], [place] [id number] Gumaro Neutrophils (Bld) [#/Vol] 5.6 103/ul Normal 1.4-6.5 [facility] Comment on above: Performed By: #### B MP, TSH, LIVER, LIPID #### [facility] [address] [place] [address] Gumaro Neutrophils/100 WBC (Bld) 85.7 % Critically high 43.0-75.0 [facility] Comment on above: Performed By: #### B MP, TSH, LIVER, LIPID #### [facility] [address] [place] [address] Gumaro Platelet mean volume (Bld) [Entitic vol] 9.5 fL Normal 9.5-13.5 [facility] Comment on above: Performed By: #### B MP, TSH, LIVER, LIPID #### [facility] [address] [place], [place] [phone] Gumaro Platelets (Bld) [#/Vol] 231 103/ul Normal 150-450 [facility] Comment on above: Performed By: #### B MP, TSH, LIVER, LIPID #### [facility] [address] [place] [address] Gumaro RBC (Bld) [#/Vol] 4.17 106/ul Critically low 4.20-5.40 [facility] Comment on above: Performed By: #### B MP, TSH, LIVER, LIPID #### [facility] [address] [place] [address] Gumaro WBC (Bld) [#/Vol] 6.6 103/ul Normal 4.0-11.0 [facility] Comment on above: Performed By: #### B MP, TSH, LIVER, LIPID #### [facility] [address] [id number] G[place] Jones POINT OF CARE GLUCOSEon 10-08 Glucose [Mass/Vol] 124 mg/dL Critically high 74-106 [facility] Comment on above: Performed By: #### B MP, TSH, LIVER, LIPID #### [facility] [address] [id number] Gumaromaryana Jones Glucose [Mass/Vol] 114 mg/dL Critically high 74-106 [facility] Comment on above: Performed By: #### B MP, TSH, LIVER, LIPID #### [facility] [address] [id number] [place] Jones PROF 14(COMP METB)on 020 Albumin [Mass/Vol] 2.7 g/dL Critically low 3.5-5.0 [facility] Comment on above: Performed By: #### B MP, TSH, LIVER, LIPID #### [facility] [address] [address] Gumaro Jones Albumin/Globulin [Mass ratio] 0.6 {ratio} Normal [facility] Comment on above: Performed By: #### B MP, TSH, LIVER, LIPID #### [facility] [address] [address] Gumaro ALP [Catalytic activity/Vol] 87 U/L Normal 38-126 [facility] Comment on above: Performed By: #### B MP, TSH, LIVER, LIPID #### [facility] [address] [address] Gumaromaryana Jones ALT [Catalytic activity/Vol] 21 U/L Normal 9-52 [facility] Comment on above: Performed By: #### B MP, TSH, LIVER, LIPID #### [facility] [address] [id number] G[place]aro Anion gap [Moles/Vol] 11.0 mmol/L Normal [facility] Comment on above: Performed By: #### B MP, TSH, LIVER, LIPID #### [facility] [address] [place] [address] Gumaro AST [Catalytic activity/Vol] 21 U/L Normal 14-36 [facility] Comment on above: Performed By: #### B MP, TSH, LIVER, LIPID #### [facility] [address] [place] [address] G[place] Bilirubin Ql (U) 0.4 mg/dL Normal 0.2-1.3 [facility] Comment on above: Performed By: #### B MP, TSH, LIVER, LIPID #### [facility] [address] [place] [address] G[place]aro Calcium [Mass/Vol] 8.6 mg/dL Normal 8.4-10.2 [facility] Comment on above: Performed By: #### B MP, TSH, LIVER, LIPID #### [facility] [address] [place] [address] G[place] Chloride [Moles/Vol] 105 mmol/L Normal 98-107 [facility] Comment on above: Performed By: #### B MP, TSH, LIVER, LIPID #### [facility] [address] [place] [address] G[place] CO2 [Moles/Vol] 26.2 mmol/L Normal 22.0-30.0 [facility] Comment on above: Performed By: #### B MP, TSH, LIVER, LIPID #### [facility] [address] [place] [address] G[place]aro Creatinine [Mass/Vol] 0.92 mg/dL Normal 0.52-1.04 [facility] Comment on above: Performed By: #### B MP, TSH, LIVER, LIPID #### [facility] [address] [place] [address] [place] EGFR-AF PANAMANIAN >60 Normal >=60 [facility] Comment on above: Performed By: #### B MP, TSH, LIVER, LIPID #### [facility] [address] [place] [address] [place] EGFR-NON AF PANAMANIAN >60 Normal >=60 [facility] Comment on above: Performed By: #### B MP, TSH, LIVER, LIPID #### [facility] [address] [phone] G[place]aro Globulin (S) [Mass/Vol] 4.4 g/dL Normal [facility] Comment on above: Performed By: #### B MP, TSH, LIVER, LIPID #### [facility] [address] [phone] G[place]aro Glucose [Mass/Vol] 153 mg/dL Critically high 74-106 [facility] Comment on above: Performed By: #### B MP, TSH, LIVER, LIPID #### [facility] [address] [place] [address] G[place]aro Potassium [Moles/Vol] 4.2 mmol/L Normal 3.4-5.0 [facility] Comment on above: Performed By: #### B MP, TSH, LIVER, LIPID #### [facility] [address] [place] [address] Gumaro Protein [Mass/Vol] 7.1 g/dL Normal 6.1-8.2 [facility] Comment on above: Performed By: #### B MP, TSH, LIVER, LIPID #### [facility] [address] [place], [place] [phone] Gumaro Sodium [Moles/Vol] 138 mmol/L Normal 137-145 [facility] Comment on above: Performed By: #### B MP, TSH, LIVER, LIPID #### [facility] [address] [place], [place] [phone] G[place]aro Urea nitrogen [Mass/Vol] 19.0 mg/dL Critically high 7.0-17.0 [facility] Comment on above: Performed By: #### B MP, TSH, LIVER, LIPID #### [facility] [address] [place], [place] [phone] Gumaro Urea nitrogen/Creatinine [Mass ratio] 20.7 mg/mg Normal [facility] Comment on above: Performed By: #### B MP, TSH, LIVER, LIPID #### [facility] [address] [place], [place] [phone] G[place] CBC AUTO DIFFon 10-28-2019 Basophils (Bld) [#/Vol] 0.0 103/ul Normal 0.0-0.1 [facility] Comment on above: Performed By: #### A 1C #### [facility] [address] [place] [address] Gumaro Basophils/100 WBC (Bld) 0.5 % Normal 0.2-2.0 [facility] Comment on above: Performed By: #### A 1C #### [facility] [address] [place] [address] G[place]aro Eosinophils (Bld) [#/Vol] 0.4 103/ul Normal 0.0-0.7 [facility] Comment on above: Performed By: #### A 1C #### [facility] [address] [place] [address] Gumaro Eosinophils/100 WBC (Bld) 6.9 % Normal 0.9-7.0 [facility] Comment on above: Performed By: #### A 1C #### [facility] [address] [place] [address] Gumaro Erythrocyte distribution width (RBC) [Ratio] 17.5 % Critically high 11.0-15.0 [facility] Comment on above: Performed By: #### A 1C #### [facility] [address] [place] [address] Gumaro Hematocrit (Bld) [Volume fraction] 33.8 % Critically low 36.0-48.0 [facility] Comment on above: Performed By: #### A 1C #### [facility] [address] [place] [address] Gumaro Hemoglobin (Bld) [Mass/Vol] 9.9 g/dL Critically low 12.0-16.0 [facility] Comment on above: Performed By: #### A 1C #### [facility] [address] [place] [address] Gumaro IG # 0.02 10e3/ul Normal 0.00-0.03 [facility] Comment on above: Performed By: #### A 1C #### [facility] [address] [place] [address] Gumaro IG % 0.4 % Normal 0.0-0.5 [facility] Comment on above: Performed By: #### A 1C #### [facility] [address] [place] [address] Gumaro Lymphocytes (Bld) [#/Vol] 1.3 103/ul Normal 1.2-3.8 [facility] Comment on above: Performed By: #### A 1C #### [facility] [address] [place] [address] Gumaro Lymphocytes/100 WBC (Bld) 22.5 % Normal 20.5-60.0 [facility] Comment on above: Performed By: #### A 1C #### [facility] [address] [place] [address] Gumaro Jones MANUAL DIFF REQ NO Normal [facility] Comment on above: Performed By: #### A 1C #### [facility] [address] [place] [address] Gumaro MCH (RBC) [Entitic mass] 22.9 pg Critically low 26.7-34.0 [facility] Comment on above: Performed By: #### A 1C #### [facility] [address] [place], [place] [phone] Gumaromaryana Jones MCHC (RBC) [Mass/Vol] 29.3 g/dL Critically low 29.9-35.2 [facility] Comment on above: Performed By: #### A 1C #### [facility] [address] [place] [address] Gumaromaryana Jones MCV (RBC) [Entitic vol] 78.1 fL Critically low 81.0-99. 0 [facility] Comment on above: Performed By: #### A 1C #### [facility] [address] [place], [place] [phone] Gumaro Monocytes (Bld) [#/Vol] 0.5 103/ul Normal 0.3-0.8 [facility] Comment on above: Performed By: #### A 1C #### [facility] [address] [place], [place] [phone] Gumaro Monocytes/100 WBC (Bld) 8.3 % Normal 1.7-12.0 [facility] Comment on above: Performed By: #### A 1C #### [facility] [address] [place] [address] Gumaro Neutrophils (Bld) [#/Vol] 3.5 103/ul Normal 1.4-6.5 [facility] Comment on above: Performed By: #### A 1C #### [facility] [address] [place] [address] Gumaro Neutrophils/100 WBC (Bld) 61.4 % Normal 43.0-75.0 [facility] Comment on above: Performed By: #### A 1C #### [facility] [address] [place] [address] Gumaro Platelet mean volume (Bld) [Entitic vol] 9.4 fL Critically low 9.5-13.5 [facility] Comment on above: Performed By: #### A 1C #### [facility] [address] [place] [address] Gumaro Platelets (Bld) [#/Vol] 229 103/ul Normal 150-450 [facility] Comment on above: Performed By: #### A 1C #### [facility] [address] [place] [address] Gumaro RBC (Bld) [#/Vol] 4.33 106/ul Normal 4.20-5.40 [facility] Comment on above: Performed By: #### A 1C #### [facility] [address] [place] [address] Gumaro WBC (Bld) [#/Vol] 5.7 103/ul Normal 4.0-11.0 [facility] Comment on above: Performed By: #### A 1C #### [facility] [address] [place], [place] [phone] G[place] CULTURE URINEon 10-28-2019 CULTURE URINE Culture Observations : No growth Normal [facility] Comment on above: Performed By: #### B MP, TSH, LIVER, LIPID #### [facility] [address] [place] [address] Gumaro ER URINE PROFILEon 0 Bilirubin [Mass/Vol] Negative Normal NEGATIVE [facility] Comment on above: Performed By: #### A 1C #### [facility] [address] [place] [address] [place] BLOOD Negative Normal NEGATIVE [facility] Comment on above: Performed By: #### A 1C #### [facility] [address] [place] [address] Gumaro Clarity (U) SL CLOUDY Normal [facility] Comment on above: Performed By: #### A 1C #### [facility] [address] [place] [address] G[place] Color (U) YELLOW Normal YELLOW [facility] Comment on above: Performed By: #### A 1C #### [facility] [address] [place] [address] Gumaro ERUAHD A micrscopic examina tion will be performed if indicated. Normal [facility] Comment on above: Performed By: #### A 1C #### [facility] [address] [place] [address] Gumaro Glucose [Mass/Vol] Negative Normal NEGATIVE [facility] Comment on above: Performed By: #### A 1C #### [facility] [address] [place] [address] Gumrao Ketones Ql (U) Negative Normal NEGATIVE [facility] Comment on above: Performed By: #### A 1C #### [facility] [address] [place] [address] G[place]aro Nitrite Ql (U) Negative Normal NEGATIVE [facility] Comment on above: Performed By: #### A 1C #### [facility] [address] [place], [place] [id number] Gumaro pH (Bld) 6.0 Normal 5-9 [facility] Comment on above: Performed By: #### A 1C #### [facility] [address] [place] [address] Gum[place] Protein (U) [Mass/Vol] Negative Normal [facility] Comment on above: Performed By: #### A 1C #### [facility] [address] [address] Gumaro SPEC GRAVITY >=1.030 Normal 1.005-<=1.0 25 [facility] Comment on above: Performed By: #### A 1C #### [facility] [address] [place] [address] G[place]aro UR MICRO IND INDICATED Normal [facility] Comment on above: Performed By: #### A 1C #### [facility] [address] [place] [address] Gumaromaryana Jones Urobilinogen Qn (U) 2.0 EU/dl Normal [facility] Comment on above: Performed By: #### A 1C #### [facility] [address] [place] [address] Gumaro WBC (Bld) [#/Vol] SMALL Normal NEGATIVE [facility] Comment on above: Performed By: #### A 1C #### [facility] [address] [place] [address] Gumaro POINT OF CARE GLUCOSEon 06- Glucose [Mass/Vol] 194 mg/dL Critically high -106 [facility] Comment on above: Performed By: #### B MP, TSH, LIVER, LIPID #### [facility] [address] [place] [address] Gumaro Glucose [Mass/Vol] 145 mg/dL Critically high -106 [facility] Comment on above: Performed By: #### A 1C #### [facility] [address] [place] [address] Gumaro Glucose [Mass/Vol] 112 mg/dL Critically high -106 [facility] Comment on above: Performed By: #### A 1C #### [facility] [address] [place] [address] Gumaro Glucose [Mass/Vol] 130 mg/dL Critically high -106 [facility] Comment on above: Performed By: #### A 1C #### [facility] [address] [place] [address] Gumaro PROF 14(COMP METB)on 020 Albumin [Mass/Vol] 2.6 g/dL Critically low 3.5-5.0 [facility] Comment on above: Performed By: #### A 1C #### [facility] [address] [place], [place] [phone] Gumaro Albumin/Globulin [Mass ratio] 0.6 {ratio} Normal [facility] Comment on above: Performed By: #### A 1C #### [facility] [address] [place], [place] [phone] Gumaro ALP [Catalytic activity/Vol] 78 U/L Normal 38-126 [facility] Comment on above: Performed By: #### A 1C #### [facility] [address] [place] [address] Gumaro ALT [Catalytic activity/Vol] 20 U/L Normal 9-52 [facility] Comment on above: Performed By: #### A 1C #### [facility] [address] [place] [address] Gumaro Anion gap [Moles/Vol] 9.9 mmol/L Normal [facility] Comment on above: Performed By: #### A 1C #### [facility] [address] [place] [address] Gumaro AST [Catalytic activity/Vol] 29 U/L Normal 14-36 [facility] Comment on above: Performed By: #### A 1C #### [facility] [address] [place] [address] Gumaro Bilirubin Ql (U) 0.5 mg/dL Normal 0.2-1.3 [facility] Comment on above: Performed By: #### A 1C #### [facility] [address] [place], [place] [address] Gumaro Calcium [Mass/Vol] 8.2 mg/dL Critically low 8.4-10.2 [facility] Comment on above: Performed By: #### A 1C #### [facility] [address] [place] [address] Gumaro Chloride [Moles/Vol] 106 mmol/L Normal 98-107 [facility] Comment on above: Performed By: #### A 1C #### [facility] [address] [place], [place] [address] Gumaro CO2 [Moles/Vol] 28.2 mmol/L Normal 22.0-30.0 [facility] Comment on above: Performed By: #### A 1C #### [facility] [address] [place], [place] [address] Gumaro Creatinine [Mass/Vol] 0.88 mg/dL Normal 0.52-1.04 [facility] Comment on above: Performed By: #### A 1C #### [facility] [address] [place], [place] [id number] G[place]aro EGFR-AF PANAMANIAN >60 Normal >=60 [facility] Comment on above: Performed By: #### A 1C #### [facility] [address] [place] [address] Gumaro EGFR-NON AF PANAMANIAN >60 Normal >=60 [facility] Comment on above: Performed By: #### A 1C #### [facility] [address] [place] [address] Gumaro Globulin (S) [Mass/Vol] 4.3 g/dL Normal [facility] Comment on above: Performed By: #### A 1C #### [facility] [address] [place] [address] Gumaro Glucose [Mass/Vol] 114 mg/dL Critically high 74-106 [facility] Comment on above: Performed By: #### A 1C #### [facility] [address] [place] [address] Gumaro Potassium [Moles/Vol] 4.1 mmol/L Normal 3.4-5.0 [facility] Comment on above: Performed By: #### A 1C #### [facility] [address] [place] [address] Gumaro Protein [Mass/Vol] 6.9 g/dL Normal 6.1-8.2 [facility] Comment on above: Performed By: #### A 1C #### [facility] [address] [place], [place] [id number] G[place]aro Sodium [Moles/Vol] 140 mmol/L Normal 137-145 [facility] Comment on above: Performed By: #### A 1C #### [facility] [address] [place] [address] Gumaro Urea nitrogen [Mass/Vol] 17.0 mg/dL Normal 7.0-17.0 [facility] Comment on above: Performed By: #### A 1C #### [facility] [address] [place] [address] Gumaro Urea nitrogen/Creatinine [Mass ratio] 19.3 mg/mg Normal [facility] Comment on above: Performed By: #### A 1C #### [facility] [address] [place] [address] G[place]aro URINE MICROSCOPIC ONLYon Bacteria LM.HPF (Urine sed) [#/Area] TRACE Normal NONE SEEN [facility] Comment on above: Performed By: #### A 1C #### [facility] [address] [place] [address] Gumaro CAST NONE SEEN Normal NONE SEEN [facility] Comment on above: Performed By: #### A 1C #### [facility] [address] [place] [address] G[place] Crystals LM Nom (Urine sed) NONE SEEN Normal NONE SEEN [facility] Comment on above: Performed By: #### A 1C #### [facility] [address] [place] [address] [place] CULTURE INDICATED Normal [facility] [place] [facility] Comment on above: Performed By: #### A 1C #### [facility] [place] [facility] [address] [place], [place] [id number] [place] Epithelial cells LM.HPF (Urine sed) [#/Area] FEW Normal [facility] [place] [facility] Comment on above: Performed By: #### A 1C #### [facility] [place] [facility] [address] [place], [place] [phone] [place] MUCOUS NONE SEEN Normal NONE SEEN [facility] [place] [facility] Comment on above: Performed By: #### A 1C #### [facility] [place] [facility] [address] [place] [id number] G[place] RBC (U) [#/Vol] 2-5 Normal 0-2 [facility] [place] [facility] Comment on above: Performed By: #### A 1C #### [facility] [place] [facility] [address] [place] [address] G[place] WBC (Bld) [#/Vol] >100 Normal NONE SEEN [facility] [place] [facility] Comment on above: Performed By: #### A 1C #### [facility] [place] [facility] [address] [place], [place] [phone] [place] CBC AUTO DIFFon 10-27-2019 Basophils (Bld) [#/Vol] 0.0 103/ul Normal 0.0-0.1 [facility] Comment on above: Performed By: #### C BC #### [facility] [place] [facility] [address] [place], [place] [phone] Gumaro Basophils/100 WBC (Bld) 0.4 % Normal 0.2-2.0 [facility] Comment on above: Performed By: #### C BC #### [facility] [place] [facility] [address] [place], [place] [phone] [place] Eosinophils (Bld) [#/Vol] 0.3 103/ul Normal 0.0-0.7 [facility] Comment on above: Performed By: #### C BC #### [facility] [place] [facility] [address] [place], [place] [phone] [place] Eosinophils/100 WBC (Bld) 4.6 % Normal 0.9-7.0 [facility] Comment on above: Performed By: #### C BC #### [facility] [place] [facility] [address] [place] [phone] G[place] Erythrocyte distribution width (RBC) [Ratio] 17.8 % Critically high 11.0-15.0 [facility] Comment on above: Performed By: #### C BC #### [facility] [place] [facility] [address] [place], [place] [phone] [place] Hematocrit (Bld) [Volume fraction] 34.9 % Critically low 36.0-48.0 [facility] Comment on above: Performed By: #### C BC #### [facility] [place] [facility] [address] [phone] [place] Hemoglobin (Bld) [Mass/Vol] 10.5 g/dL Critically low 12.0-16.0 [facility] Comment on above: Performed By: #### C BC #### [facility] [place] [facility] [address] [place], [place] [address] Gumaro IG # 0.02 10e3/ul Normal 0.00-0.03 [facility] [place] [facility] Comment on above: Performed By: #### C BC #### [facility] [place] [facility] [address] [place] [address] G[place] IG % 0.3 % Normal 0.0-0.5 [facility] [place] [facility] Comment on above: Performed By: #### C BC #### [facility] [place] [facility] [address] [place] [address] G[place] Lymphocytes (Bld) [#/Vol] 1.3 103/ul Normal 1.2-3.8 [facility] [place] [facility] Comment on above: Performed By: #### C BC #### [facility] [place] [facility] [address] [place], [place] [phone] G[place] Lymphocytes/100 WBC (Bld) 17.6 % Critically low 20.5-60.0 [facility] Comment on above: Performed By: #### C BC #### [facility] [place] [facility] [address] [place], [place] [phone] [place] MANUAL DIFF REQ NO Normal [facility] [place] [facility] Comment on above: Performed By: #### C BC #### [facility] [place] [facility] [address] [place], [place] [phone] [place] MCH (RBC) [Entitic mass] 23.5 pg Critically low 26.7-34.0 [facility] [place] [facility] Comment on above: Performed By: #### C BC #### [facility] [place] [facility] [address] [place], [place] [phone] [place] MCHC (RBC) [Mass/Vol] 30.1 g/dL Normal 29.9-35.2 [facility] [place] [facility] Comment on above: Performed By: #### C BC #### [facility] [place] [facility] [address] [place], [place] [address] [place] MCV (RBC) [Entitic vol] 78.1 fL Critically low 81.0-99. 0 [facility] Comment on above: Performed By: #### C BC #### [facility] [place] [facility] [address] [place], [place] [address] [place] Monocytes (Bld) [#/Vol] 0.6 103/ul Normal 0.3-0.8 [facility] Comment on above: Performed By: #### C BC #### [facility] [place] [facility] [address] [place] [address] G[place] Monocytes/100 WBC (Bld) 8.3 % Normal 1.7-12.0 [facility] Comment on above: Performed By: #### C BC #### [facility] [place] [facility] [address] [place] [address] [place] Neutrophils (Bld) [#/Vol] 5.1 103/ul Normal 1.4-6.5 [facility] Comment on above: Performed By: #### C BC #### [facility] [place] [facility] [address] [place] [phone] [place] Neutrophils/100 WBC (Bld) 68.8 % Normal 43.0-75.0 [facility] Comment on above: Performed By: #### C BC #### [facility] [place] [facility] [address] [place] [address] G[place] Platelet mean volume (Bld) [Entitic vol] 9.2 fL Critically low 9.5-13.5 [facility] Comment on above: Performed By: #### C BC #### [facility] [place] [facility] [address] [place] [address] [place] Platelets (Bld) [#/Vol] 242 103/ul Normal 150-450 [facility] Comment on above: Performed By: #### C BC #### [facility] [place] [facility] [address] [place] [address] [place] RBC (Bld) [#/Vol] 4.47 106/ul Normal 4.20-5.40 [facility] Comment on above: Performed By: #### C BC #### [facility] [place] [facility] [address] [place], [place] [address] [place] Andradeen WBC (Bld) [#/Vol] 7.5 103/ul Normal 4.0-11.0 [facility] Comment on above: Performed By: #### C BC #### [facility] [place] [facility] [address] [place] [address] [place] CRPon 10-27-2019 CRP [Mass/Vol] 3.0 mg/dL Critically high <=1.0 [facility] Comment on above: Performed By: #### A 1C #### [facility] [place] [facility] [address] [place], [place] [phone] Gumaro Jones LACTATE/LACTIC ACIDon 2019 Lactate [Moles/Vol] 1.7 mmol/L Normal 0.7-2.0 [facility] Comment on above: Performed By: #### L ACT #### [facility] [place] [facility] [address] [place] [address] G[place] Jones POINT OF CARE GLUCOSEon 10-08 Glucose [Mass/Vol] 128 mg/dL Critically high 74-106 [facility] Comment on above: Performed By: #### A 1C #### [facility] [place] [facility] [address] [place] [address] [place] Jones PROF 14(COMP METB)on 020 Albumin [Mass/Vol] 3.1 g/dL Critically low 3.5-5.0 [facility] Comment on above: Performed By: #### C MP #### [facility] [place] [facility] [address] [place], [place] [address] Gum[place] Jones Albumin/Globulin [Mass ratio] 0.7 {ratio} Normal [facility] Comment on above: Performed By: #### C MP #### [facility] [place] [facility] [address] [place], [place] [phone] [place] Jones ALP [Catalytic activity/Vol] 104 U/L Normal 38-126 [facility] Comment on above: Performed By: #### C MP #### [facility] [place] [facility] [address] [place], [place] [address] [place] ALT [Catalytic activity/Vol] 35 U/L Normal 9-52 [facility] [place] [facility] Comment on above: Performed By: #### C MP #### [facility] [place] [facility] [address] [phone] [place] Anion gap [Moles/Vol] 11.2 mmol/L Normal [facility] [place] [facility] Comment on above: Performed By: #### C MP #### [facility] [place] [facility] [address] [address] [place] AST [Catalytic activity/Vol] 31 U/L Normal 14-36 [facility] [place] [facility] Comment on above: Performed By: #### C MP #### [facility] [place] [facility] [address] [place] [address] [place] Bilirubin Ql (U) 0.5 mg/dL Normal 0.2-1.3 [facility] [place] [facility] Comment on above: Performed By: #### C MP #### [facility] [place] [facility] [address] [place] [address] [place] Calcium [Mass/Vol] 8.5 mg/dL Normal 8.4-10.2 [facility] [place] [facility] Comment on above: Performed By: #### C MP #### [facility] [place] [facility] [address] [place] [address] [place] Chloride [Moles/Vol] 105 mmol/L Normal 98-107 [facility] [place] [facility] Comment on above: Performed By: #### C MP #### [facility] [place] [facility] [address] [place] [address] [place] CO2 [Moles/Vol] 26.7 mmol/L Normal 22.0-30.0 [facility] [place] [facility] Comment on above: Performed By: #### C MP #### [facility] [place] [facility] [address] [place], [place] [address] [place] Creatinine [Mass/Vol] 0.93 mg/dL Normal 0.52-1.04 [facility] [place] [facility] Comment on above: Performed By: #### C MP #### [facility] [place] [facility] [address] [place] [address] [place] EGFR-AF PANAMANIAN >60 Normal >=60 [facility] [place] [facility] Comment on above: Performed By: #### C MP #### [facility] [place] [facility] [address] [phone] [place] EGFR-NON AF PANAMANIAN >60 Normal >=60 [facility] [place] [facility] Comment on above: Performed By: #### C MP #### [facility] [place] [facility] [address] [phone] [place] Globulin (S) [Mass/Vol] 4.7 g/dL Normal [facility] Comment on above: Performed By: #### C MP #### [facility] [place] [facility] [address] [address] [place] Glucose [Mass/Vol] 111 mg/dL Critically high 74-106 [facility] Comment on above: Performed By: #### C MP #### [facility] [place] [facility] [address] [place] [address] [place] Potassium [Moles/Vol] 3.9 mmol/L Normal 3.4-5.0 [facility] Comment on above: Performed By: #### C MP #### [facility] [place] [facility] [address] [address] [place] Protein [Mass/Vol] 7.8 g/dL Normal 6.1-8.2 [facility] Comment on above: Performed By: #### C MP #### [facility] [place] [facility] [address] [place], [place] [address] [place] Sodium [Moles/Vol] 139 mmol/L Normal 137-145 [facility] [place] [facility] Comment on above: Performed By: #### C MP #### [facility] [place] [facility] [address] [address] [place] Urea nitrogen [Mass/Vol] 18.0 mg/dL Critically high 7.0-17.0 [facility] Comment on above: Performed By: #### C MP #### [facility] [place] [facility] [address] [place], [place] [address] [place] Urea nitrogen/Creatinine [Mass ratio] 19.4 mg/mg Normal [facility] Comment on above: Performed By: #### C MP #### [facility] [place] [facility] [address] [phone] [place] RESPIRATORY PANEL PLUSon Adenovirus NOT DETECTED Normal NOT DETECTED [facility] [place] [facility] Comment on above: Performed By: #### A 1C #### [facility] [place] [facility] [address] [place] [address] [place] B. Parapertusis NOT DETECTED Normal NOT DETECTED [facility] [place] [facility] Comment on above: Performed By: #### A 1C #### [facility] [place] [facility] [address] [place] [address] [place] B. Pertussis NOT DETECTED Normal NOT DETECTED [facility] [place] [facility] Comment on above: Performed By: #### A 1C #### [facility] [place] [facility] [address] [place] [address] [place] Chlamydia Pneumoniae NOT DETECTED Normal NOT DETECTED [facility] [place] [facility] Comment on above: Performed By: #### A 1C #### [facility] [place] [facility] [address] [place] [address] [place] Coronavirus 229E NOT DETECTED Normal NOT DETECTED [facility] [place] [facility] Comment on above: Performed By: #### A 1C #### [facility] [place] [facility] [address] [place] [address] [place] Coronavirus HKU1 NOT DETECTED Normal NOT DETECTED [facility] [place] [facility] Comment on above: Performed By: #### A 1C #### [facility] [place] [facility] [address] [place] [address] [place] Coronavirus NL63 NOT DETECTED Normal NOT DETECTED [facility] [place] [facility] Comment on above: Performed By: #### A 1C #### [facility] [place] [facility] [address] [place] [address] [place] Coronavirus OC43 NOT DETECTED Normal NOT DETECTED [facility] [place] [facility] Comment on above: Performed By: #### A 1C #### [facility] [place] [facility] [address] [place] [address] [place] Influenza A H1 2009 NOT DETECTED Normal NOT DETECTED [facility] [place] [facility] Comment on above: Performed By: #### A 1C #### [facility] [place] [facility] [address] [place] [address] [place] Influenza B NOT DETECTED Normal NOT DETECTED [facility] [place] [facility] Comment on above: Performed By: #### A 1C #### [facility] [place] [facility] [address] [place] [address] [place] Metapneumovirus NOT DETECTED Normal NOT DETECTED [facility] [place] [facility] Comment on above: Performed By: #### A 1C #### [facility] [place] [facility] [address] [place] [address] [place] Mycoplas. Pneumoniae NOT DETECTED Normal NOT DETECTED [facility] [place] [facility] Comment on above: Performed By: #### A 1C #### [facility] [place] [facility] [address] [place] [address] [place] Parainfluenza 1 NOT DETECTED Normal NOT DETECTED [facility] [place] [facility] Comment on above: Performed By: #### A 1C #### [facility] [place] [facility] [address] [place] [address] [place] Parainfluenza 2 NOT DETECTED Normal NOT DETECTED [facility] [place] [facility] Comment on above: Performed By: #### A 1C #### [facility] [place] [facility] [address] [place] [address] [place] Parainfluenza 3 NOT DETECTED Normal NOT DETECTED [facility] [place] [facility] Comment on above: Performed By: #### A 1C #### [facility] [place] [facility] [address] [place] [address] [place] Parainfluenza 4 NOT DETECTED Normal NOT DETECTED [facility] [place] [facility] Comment on above: Performed By: #### A 1C #### [facility] [place] [facility] [address] [place] [address] [place] Rhino/Enterovirus NOT DETECTED Normal NOT DETECTED [facility] [place] [facility] Comment on above: Performed By: #### A 1C #### [facility] [place] [facility] [address] [place] [address] G[place] RP2 Header 1 RESPIRATORY PANEL: VIRUSES Normal [facility] [place] [facility] Comment on above: Performed By: #### A 1C #### [facility] [place] [facility] [address] [place] [address] G[place] RP2 Header 2 RESPIRATORY PANEL: BACTERIA Normal [facility] [place] [facility] Comment on above: Performed By: #### A 1C #### [facility] [place] [facility] [address] [place] [address] G[place] RP2 Header 4 EUA SEE BELOW Normal [facility] [place] [facility] Comment on above: Result Comment: This test is not yet approved or cleared by the [place] FDA. When there are no FDA-approved or cleared tests available, and other criteria are met, FDA can make tests available under an emergency access mechanism called an Emergency Use Authorization (EUA). The EUA for this test is supported by the [place] of Health and Human Service?s (HHS?s) declaration that circumstances exist to justify the emergency use of in vitro diagnostics for the detection and/or diagnosis of the virus that causes COVID-19. This EUA will remain in effect (meaning this test can be used) for the duration of the COVID-19 declaration justifying emergency of IVDs, unless it is terminated or revoked by FDA (after which the test may no longer be used). Performed By: #### A 1C #### [facility] [place] [facility] [address] [place] [address] [place] RSV NOT DETECTED Normal NOT DETECTED [facility] Comment on above: Performed By: #### A 1C #### [facility] [place] [facility] [address] [place] [address] G[place] Jones SARS-CoV-2: COVID-19 NOT DETECTED Normal NOT DETECTED [facility] [place] [facility] Comment on above: Performed By: #### A 1C #### [facility] [place] [facility] [address] [place] [address] G[place] Jones CBC AUTO DIFFon 08-29-2019 Basophils (Bld) [#/Vol] 0.1 103/ul Normal 0.0-0.1 [facility] Comment on above: Performed By: #### C BC #### [facility] [place] [facility] [address] [place] [address] [place] Basophils/100 WBC (Bld) 0.6 % Normal 0.2-2.0 [facility] [place] [facility] Comment on above: Performed By: #### C BC #### [facility] [place] [facility] [address] [place] [address] [place] Eosinophils (Bld) [#/Vol] 0.4 103/ul Normal 0.0-0.7 [facility] Comment on above: Performed By: #### C BC #### [facility] [place] [facility] [address] [place], [place] [address] [place] Eosinophils/100 WBC (Bld) 5.2 % Normal 0.9-7.0 [facility] [place] [facility] Comment on above: Performed By: #### C BC #### [facility] [place] [facility] [address] [place], [place] [address] [place] Erythrocyte distribution width (RBC) [Ratio] 17.1 % Critically high 11.0-15.0 [facility] [place] [facility] Comment on above: Performed By: #### C BC #### [facility] [place] [facility] [address] [place], [place] [address] [place] Hematocrit (Bld) [Volume fraction] 37.6 % Normal 36.0-48.0 [facility] [place] [facility] Comment on above: Performed By: #### C BC #### [facility] [place] [facility] [address] [place] [address] [place] Hemoglobin (Bld) [Mass/Vol] 10.9 g/dL Critically low 12.0-16.0 [facility] [place] [facility] Comment on above: Performed By: #### C BC #### [facility] [place] [facility] [address] [place] [address] G[place] IG # 0.03 10e3/ul Normal 0.00-0.03 [facility] [place] [facility] Comment on above: Performed By: #### C BC #### [facility] [place] [facility] [address] [place], [place] [address] G[place] IG % 0.4 % Normal 0.0-0.5 [facility] [place] [facility] Comment on above: Performed By: #### C BC #### [facility] [place] [facility] [address] [place], [place] [address] [place] Lymphocytes (Bld) [#/Vol] 2.0 103/ul Normal 1.2-3.8 [facility] [place] [facility] Comment on above: Performed By: #### C BC #### [facility] [place] [facility] [address] [place], [place] [address] [place] Lymphocytes/100 WBC (Bld) 24.5 % Normal 20.5-60.0 [facility] [place] [facility] Comment on above: Performed By: #### C BC #### [facility] [place] [facility] [address] [place] [address] [place] Jones MANUAL DIFF REQ NO Normal [facility] [place] [facility] Comment on above: Performed By: #### C BC #### [facility] [place] [facility] [address] [place], [place] [address] G[place] Jones MCH (RBC) [Entitic mass] 23.0 pg Critically low 26.7-34.0 [facility] Comment on above: Performed By: #### C BC #### [facility] [place] [facility] [address] [place], [place] [address] G[place] Jones MCHC (RBC) [Mass/Vol] 29.0 g/dL Critically low 29.9-35.2 [facility] Comment on above: Performed By: #### C BC #### [facility] [place] [facility] [address] [place] [address] G[place] Jones MCV (RBC) [Entitic vol] 79.5 fL Critically low 81.0-99. 0 [facility] Comment on above: Performed By: #### C BC #### [facility] [place] [facility] [address] [place] [address] [place] Monocytes (Bld) [#/Vol] 0.6 103/ul Normal 0.3-0.8 [facility] [place] [facility] Comment on above: Performed By: #### C BC #### [facility] [place] [facility] [address] [place], [place] [address] G[place] Monocytes/100 WBC (Bld) 7.1 % Normal 1.7-12.0 [facility] [place] [facility] Comment on above: Performed By: #### C BC #### [facility] [place] [facility] [address] [place] [address] G[place] Neutrophils (Bld) [#/Vol] 5.0 103/ul Normal 1.4-6.5 [facility] [place] [facility] Comment on above: Performed By: #### C BC #### [facility] [place] [facility] [address] [place], [place] [address] [place] Neutrophils/100 WBC (Bld) 62.2 % Normal 43.0-75.0 [facility] Comment on above: Performed By: #### C BC #### [facility] [place] [facility] [address] [place], [place] [address] Gumaromaryana Jones Platelet mean volume (Bld) [Entitic vol] 10.3 fL Normal 9.5-13.5 [facility] Comment on above: Performed By: #### C BC #### [facility] [place] [facility] [address] [place], [place] [address] G[place]aro Platelets (Bld) [#/Vol] 293 103/ul Normal 150-450 [facility] Comment on above: Performed By: #### C BC #### [facility] [place] [facility] [address] [place], [place] [address] G[place] RBC (Bld) [#/Vol] 4.73 106/ul Normal 4.20-5.40 [facility] Comment on above: Performed By: #### C BC #### [facility] [place] [facility] [address] [place], [place] [address] G[place] WBC (Bld) [#/Vol] 8.0 103/ul Normal 4.0-11.0 [facility] Comment on above: Performed By: #### C BC #### [facility] [place] [facility] [address] [place], [place] [address] G[place] GLYCOHEMOGLOBIN A1Con 2019 Glucose [Mass/Vol] 108 mg/dL Normal [facility] Comment on above: Performed By: #### A 1C #### [facility] [place] [facility] [address] [place], [place] [address] G[place] HbA1c (Bld) [Mass fraction] 5.4 % Normal <=6.0 [facility] Comment on above: Performed By: #### A 1C #### [facility] [place] [facility] [address] [place], [place] [address] [place] LIPID PROFILEon 08-29-2019 CHOL-HDL RATIO NORM SEE BELOW Normal [facility] Comment on above: Result Comment: 3.3 - 4.4 LOW RISK 4.4 - 7.1 AVERAGE RISK 7.1 - 11.0 MODERATE RISK >11.0 HIGH RISK Performed By: #### B MP, TSH, LIVER, LIPID #### [facility] [place] [facility] [address] [place], [place] [address] G[place] Cholesterol [Mass/Vol] 121 mg/dL Normal <=200 [facility] Comment on above: Performed By: #### B MP, TSH, LIVER, LIPID #### [facility] [place] [facility] [address] [place], [place] [address] G[place] Cholesterol in HDL [Mass/Vol] 36 mg/dL Normal [facility] Comment on above: Performed By: #### B MP, TSH, LIVER, LIPID #### [facility] [place] [facility] [address] [phone] [place] Cholesterol in HDL [Mass/Vol] > or = 60 mg/dl - LOW CARDIOVASCULAR RISK <40 mg/dl - HIGH CARDIOVASCULAR RISK Normal [facility] Comment on above: Performed By: #### B MP, TSH, LIVER, LIPID #### [facility] [place] [facility] [address] [phone] [place] Cholesterol in LDL [Mass/Vol] SEE BELOW Normal [facility] Comment on above: Result Comment: <100 mg/dl OPTIMAL 100 - 129 mg/dl NEAR OR ABOVE OPTIMAL 130 - 159 mg/dl BORDERLINE HIGH 160 - 189 mg/dl HIGH >190 mg/dl VERY HIGH Performed By: #### B MP, TSH, LIVER, LIPID #### [facility] [place] [facility] [address] [place], [place] [address] G[place] Cholesterol in LDL [Mass/Vol] 66.8 mg/dL Normal [facility] Comment on above: Performed By: #### B MP, TSH, LIVER, LIPID #### [facility] [place] [facility] [address] [place], [place] [address] G[place] Cholesterol.total/Pia sterol in HDL [Mass ratio] 3.4 {ratio} Normal [facility] Comment on above: Performed By: #### B MP, TSH, LIVER, LIPID #### [facility] [place] [facility] [address] [place], [place] [address] G[place] Triglyceride [Mass/Vol] 91 mg/dL Normal <=150 T [facility] Comment on above: Performed By: #### B MP, TSH, LIVER, LIPID #### [facility] [place] [facility] [address] [phone] G[place]aro VLDL CALC 18.2 mg/dL Normal [facility] Comment on above: Performed By: #### B MP, TSH, LIVER, LIPID #### [facility] [place] [facility] [address] [phone] [place] LIVER PROFILEon 08-29-2019 Albumin [Mass/Vol] 3.3 g/dL Critically low 3.5-5.0 [facility] [place] [facility] Comment on above: Performed By: #### B MP, TSH, LIVER, LIPID #### [facility] [place] [facility] [address] [address] [place] Albumin/Globulin [Mass ratio] 0.7 {ratio} Normal [facility] Comment on above: Performed By: #### B MP, TSH, LIVER, LIPID #### [facility] [address] [address] [place] ALP [Catalytic activity/Vol] 92 U/L Normal 38-126 [facility] Comment on above: Performed By: #### B MP, TSH, LIVER, LIPID #### [facility] [address] [address] [place] ALT [Catalytic activity/Vol] 19 U/L Normal 9-52 [facility] Comment on above: Performed By: #### B MP, TSH, LIVER, LIPID #### [facility] [address] [place] [address] [place] AST [Catalytic activity/Vol] 18 U/L Normal 14-36 [facility] Comment on above: Performed By: #### B MP, TSH, LIVER, LIPID #### [facility] [address] [address] [place] BILI, CONJUGATED 0.1 mg/dL Normal 0.0-0.3 [facility] Comment on above: Performed By: #### B MP, TSH, LIVER, LIPID #### [facility] [address] [address] [place] Bilirubin Ql (U) 0.4 mg/dL Normal 0.2-1.3 [facility] Comment on above: Performed By: #### B MP, TSH, LIVER, LIPID #### [facility] [address] [address] [place] Globulin (S) [Mass/Vol] 4.8 g/dL Normal [facility] Comment on above: Performed By: #### B MP, TSH, LIVER, LIPID #### [facility] [address] [address] [place] Protein [Mass/Vol] 8.1 g/dL Normal 6.1-8.2 [facility] Comment on above: Performed By: #### B MP, TSH, LIVER, LIPID #### [facility] [address] [id number] [place] PROF CHEM 8 (BAS METB)on Anion gap [Moles/Vol] 10.5 mmol/L Normal [facility] Comment on above: Performed By: #### B MP, TSH, LIVER, LIPID #### [facility] [address] [place] [address] [place] Calcium [Mass/Vol] 8.5 mg/dL Normal 8.4-10.2 [facility] Comment on above: Performed By: #### B MP, TSH, LIVER, LIPID #### [facility] [address] [address] [place] Chloride [Moles/Vol] 106 mmol/L Normal 98-107 [facility] Comment on above: Performed By: #### B MP, TSH, LIVER, LIPID #### [facility] [address] [place] [address] [place] CO2 [Moles/Vol] 27.3 mmol/L Normal 22.0-30.0 [facility] Comment on above: Performed By: #### B MP, TSH, LIVER, LIPID #### [facility] [address] [address] [place] Creatinine [Mass/Vol] 0.80 mg/dL Normal 0.52-1.04 [facility] Comment on above: Performed By: #### B MP, TSH, LIVER, LIPID #### [facility] [address] [id number] [place] EGFR-AF PANAMANIAN >60 Normal >=60 [facility] Comment on above: Performed By: #### B MP, TSH, LIVER, LIPID #### [facility] [address] [place] [address] [place] EGFR-NON AF PANAMANIAN >60 Normal >=60 [facility] Comment on above: Performed By: #### B MP, TSH, LIVER, LIPID #### [facility] [address] [place] [address] [place] Glucose [Mass/Vol] 99 mg/dL Normal 74-106 [facility] Comment on above: Performed By: #### B MP, TSH, LIVER, LIPID #### [facility] [address] [place] [address] [place] Potassium [Moles/Vol] 3.8 mmol/L Normal 3.4-5.0 [facility] Comment on above: Performed By: #### B MP, TSH, LIVER, LIPID #### [facility] [address] [place] [address] [place] Sodium [Moles/Vol] 140 mmol/L Normal 137-145 [facility] Comment on above: Performed By: #### B MP, TSH, LIVER, LIPID #### [facility] [address] [place] [address] [place] Urea nitrogen [Mass/Vol] 17.0 mg/dL Normal 7.0-17.0 [facility] Comment on above: Performed By: #### B MP, TSH, LIVER, LIPID #### [facility] [address] [place] [address] [place] Urea nitrogen/Creatinine [Mass ratio] 21.2 mg/mg Normal [facility] Comment on above: Performed By: #### B MP, TSH, LIVER, LIPID #### [facility] [address] [place] [address] [place] TSHon 08-29-2019 TSH Qn 4.467 uIU/mL Normal 0.470-4.680 [facility] Comment on above: Performed By: #### B MP, TSH, LIVER, LIPID #### [facility] [address] [place] [address] [place] Jones TSH Qn SEE BELOW Normal [facility] Comment on above: Result Comment: <0.3 4 UIU/ml HYPERTHYROID 0.34-5.60 UIU/ml EUTHYROID >5.60 UIU/ml HYPOTHYROID Performed By: #### B MP, TSH, LIVER, LIPID #### [facility] [address] [id number] [place] Jones VITAMIN D 25 OHon 08-29-2019 VIT D 25-OH 7.0 ng/mL Normal [facility] Comment on above: Performed By: #### V ITAD #### [facility] [address] [phone] [place] Jones VIT D RANGES SEE BELOW Normal [facility] Comment on above: Result Comment: <20 ng/mL Vit D deficient 20 - <30 ng/mL Vit D insufficient 30 - 100 ng/mL Vit D sufficient >100 ng/mL Potential Toxicity Performed By: #### V ITAD #### [facility] [address] [address] [place] Jones VITDH PLEASE NOTE: NORMAL RANGE CHANGE 01-11-2013, TESTING PERFORMED AT [facility]. Normal [facility] Comment on above: Performed By: #### V ITAD #### [facility] [address] [id number] [place] Jones Basic Metabolic Panelon 09-0 Anion gap [Moles/Vol] 11 mmol/L Normal 9-15 [facility] Comment on above: Performed By: #### C XWND #### [facility] [address] [place] [address] Calcium [Mass/Vol] 8.6 mg/dL Normal 8.5-9.9 [facility] Comment on above: Performed By: #### C XWND #### [facility] [address] [place] [address] Chloride [Moles/Vol] 106 mmol/L Normal 95-107 [facility] Comment on above: Performed By: #### C XWND #### [facility] [address] [place] [address] CO2 [Moles/Vol] 20 mmol/L Normal 20-31 [facility] Comment on above: Performed By: #### C XWND #### [facility] [address] [place] [address] Creatinine [Mass/Vol] 0.59 mg/dL Normal 0.50-0.90 [facility] Comment on above: Performed By: #### C XWND #### [facility] [address] [place] [address] GFR/1.73 sq M predicted among blacks MDRD (S/P/Bld) [Vol rate/Area] mL/min/{1.73_m2} Normal >60 [facility] Comment on above: Result Comment: >60 mL/min/1.73m2 EGFR, calc. for ages 18 and older using the MDRD formula (not corrected for weight), is valid for stable renal function. Performed By: #### C XWND #### [facility] [address] [place] [address] GFR/1.73 sq M.predicted MDRD (S/P/Bld) [Vol rate/Area] mL/min/{1.73_m2} Normal >60 [facility] Comment on above: Result Comment: >60 mL/min/1.73m2 EGFR, calc. for ages 18 and older using the MDRD formula (not corrected for weight), is valid for stable renal function. Performed By: #### C XWND #### [facility] [address] [place] [address] Glucose [Mass/Vol] 131 mg/dL Critically high 70-99 [facility] Comment on above: Performed By: #### C XWND #### [facility] [address] [place] [address] Potassium [Moles/Vol] 4.1 mmol/L Normal 3.4-4.9 [facility] Comment on above: Performed By: #### C XWND #### [facility] [address] [place] [address] Sodium [Moles/Vol] 137 mmol/L Normal 135-144 [facility] Comment on above: Performed By: #### C XWND #### [facility] [address] [place] [address] Urea nitrogen [Mass/Vol] 13 mg/dL Normal 6-20 [facility] Comment on above: Performed By: #### C XWND #### [facility] [address] [place] [address] CBC With Platelet and Differ entialon 01-08-2019 Platelet Slide Review Adequate Normal [facility] Comment on above: Performed By: #### C XWND #### [facility] [address] [place] [address] Slide Review see below Normal [facility] Comment on above: Result Comment: Slid e review agrees with reported results Performed By: #### C XWND #### [facility] [address] [place] [address] Anisocytosis Ql (Bld) 1+ Normal [facility] Comment on above: Performed By: #### C XWND #### [facility] [address] [place] [address] Hypochromia 1+ Normal [facility] Comment on above: Performed By: #### C XWND #### [facility] [address] [place] [address] Ovalocytes 1+ Normal [facility] Comment on above: Performed By: #### C XWND #### [facility] [address] [place] [address] Poikilocytosis 1+ Normal [facility] Comment on above: Performed By: #### C XWND #### [facility] [address] [place] [address] Basophils (Bld) [#/Vol] 0.0 10*3/uL Normal 0.0-0.2 [facility] Comment on above: Performed By: #### C XWND #### [facility] [address] [place] [address] Basophils/100 WBC (Bld) 1.1 % Normal [facility] Comment on above: Performed By: #### C XWND #### [facility] [address] [place] [address] Eosinophils (Bld) [#/Vol] 0.2 10*3/uL Normal 0.0-0.7 [facility] Comment on above: Performed By: #### C XWND #### [facility] [address] [place] [address] Eosinophils/100 WBC (Bld) 6.2 % Normal [facility] Comment on above: Performed By: #### C XWND #### [facility] [address] [place] [address] Erythrocyte distribution width (RBC) [Ratio] 20.1 % Critically high 11.5-14.5 [facility] Comment on above: Performed By: #### C XWND #### [facility] [address] [place] [address] Hematocrit (Bld) [Volume fraction] 36.7 % Low 37.0-47.0 [facility] Comment on above: Performed By: #### C XWND #### [facility] [address] [place] [address] Hemoglobin (Bld) [Mass/Vol] 10.5 g/dL Low 12.0-16.0 [facility] Comment on above: Performed By: #### C XWND #### [facility] [address] [place] [address] Lymphocytes (Bld) [#/Vol] 1.2 10*3/uL Normal 1.0-4.8 [facility] Comment on above: Performed By: #### C XWND #### [facility] [address] [place] [address] Lymphocytes/100 WBC (Bld) 35.2 % Normal [facility] Comment on above: Performed By: #### C XWND #### [facility] [address] [place] [address] MCH (RBC) [Entitic mass] 22.7 pg Low 27.0-31.3 [facility] Comment on above: Performed By: #### C XWND #### [facility] [address] [place] [address] MCHC (RBC) [Mass/Vol] 28.7 % Low 33.0-37.0 [facility] Comment on above: Performed By: #### C XWND #### [facility] [address] [place] [address] MCV (RBC) [Entitic vol] 79.3 fL Low 82.0-100.0 [facility] Comment on above: Performed By: #### C XWND #### [facility] [address] [place] [address] Monocytes (Bld) [#/Vol] 0.3 10*3/uL Normal 0.2-0.8 [facility] Comment on above: Performed By: #### C XWND #### [facility] [address] [place] [address] Monocytes/100 WBC (Bld) 7.7 % Normal [facility] Comment on above: Performed By: #### C XWND #### [facility] [address] [place] [address] Neutrophils (Bld) [#/Vol] 1.7 10*3/uL Normal 1.4-6.5 [facility] Comment on above: Performed By: #### C XWND #### [facility] [address] [place] [address] Neutrophils/100 WBC (Bld) 49.8 % Normal [facility] Comment on above: Performed By: #### C XWND #### [facility] [address] [place] [address] Platelets (Bld) [#/Vol] 140 10*3/uL Normal 130-400 [facility] Comment on above: Performed By: #### C XWND #### [facility] [address] [place] [address] RBC (Bld) [#/Vol] 4.62 10*6/uL Normal 4.20-5.40 [facility] Comment on above: Performed By: #### C XWND #### [facility] [address] [place] [address] WBC (Bld) [#/Vol] 3.5 10*3/uL Low 4.8-10.8 [facility] Comment on above: Performed By: #### C XWND #### [facility] [address] [place] [address] CBC With Platelet and Differ entialon 01-04-2019 Slide Review see below Normal [facility] Comment on above: Result Comment: Slid e review agrees with reported results Performed By: #### C BCWD #### [facility] [address] [place] [address] Anisocytosis Ql (Bld) 1+ Normal [facility] Comment on above: Performed By: #### C BCWD #### [facility] [address] [place] [address] Microcytic 1+ Normal [facility] Comment on above: Performed By: #### C BCWD #### [facility] [address] [place] [address] Basophils (Bld) [#/Vol] 0.0 10*3/uL Normal 0.0-0.2 [facility] Comment on above: Performed By: #### C BCWD #### [facility] [address] [place] [address] Basophils/100 WBC (Bld) 0.5 % Normal [facility] Comment on above: Performed By: #### C BCWD #### [facility] [address] [place] [address] Eosinophils (Bld) [#/Vol] 0.2 10*3/uL Normal 0.0-0.7 [facility] Comment on above: Performed By: #### C BCWD #### [facility] [address] [place] [address] Eosinophils/100 WBC (Bld) 4.6 % Normal [facility] Comment on above: Performed By: #### C BCWD #### [facility] [address] [place] [address] Erythrocyte distribution width (RBC) [Ratio] 19.5 % Critically high 11.5-14.5 [facility] Comment on above: Performed By: #### C BCWD #### [facility] [address] [place] [address] Hematocrit (Bld) [Volume fraction] 38.1 % Normal 37.0-47.0 [facility] Comment on above: Performed By: #### C BCWD #### [facility] [address] [place] [address] Hemoglobin (Bld) [Mass/Vol] 11.7 g/dL Low 12.0-16.0 [facility] Comment on above: Performed By: #### C BCWD #### [facility] [address] [place] [address] Lymphocytes (Bld) [#/Vol] 1.6 10*3/uL Normal 1.0-4.8 [facility] Comment on above: Performed By: #### C BCWD #### [facility] [address] [place] [address] Lymphocytes/100 WBC (Bld) 37.2 % Normal [facility] Comment on above: Performed By: #### C BCWD #### [facility] [address] [place] [address] MCH (RBC) [Entitic mass] 22.8 pg Low 27.0-31.3 [facility] Comment on above: Performed By: #### C BCWD #### [facility] [address] [place] [address] MCHC (RBC) [Mass/Vol] 30.8 % Low 33.0-37.0 [facility] Comment on above: Performed By: #### C BCWD #### [facility] [address] [place] [address] MCV (RBC) [Entitic vol] 74.0 fL Low 82.0-100.0 [facility] Comment on above: Performed By: #### C BCWD #### [facility] [address] [place] [address] Monocytes (Bld) [#/Vol] 0.3 10*3/uL Normal 0.2-0.8 [facility] Comment on above: Performed By: #### C BCWD #### [facility] [address] [place] [address] Monocytes/100 WBC (Bld) 7.1 % Normal [facility] Comment on above: Performed By: #### C BCWD #### [facility] [address] [place] [address] Neutrophils (Bld) [#/Vol] 2.2 10*3/uL Normal 1.4-6.5 [facility] Comment on above: Performed By: #### C BCWD #### [facility] [address] [place] [address] Neutrophils/100 WBC (Bld) 50.6 % Normal [facility] Comment on above: Performed By: #### C BCWD #### [facility] [address] [place] [address] Platelets (Bld) [#/Vol] 275 10*3/uL Normal 130-400 [facility] Comment on above: Performed By: #### C BCWD #### [facility] [address] [place] [address] RBC (Bld) [#/Vol] 5.15 10*6/uL Normal 4.20-5.40 [facility] Comment on above: Performed By: #### C BCWD #### [facility] [address] [place] [address] WBC (Bld) [#/Vol] 4.4 10*3/uL Low 4.8-10.8 [facility] Comment on above: Performed By: #### C BCWD #### [facility] [address] [place] [address] Folateon 01-04-2019 Folate 7.7 ng/mL Normal 7.3-26.1 [facility] Comment on above: Result Comment: As o f 15, the methodology has changed. Results from this methodology should not be compared with results from previous methodology. Performed By: #### C XWND #### [facility] [address] [place] [address] Iron Profileon 01-04-2019 % Saturation 11 % Normal 11-46 [facility] Comment on above: Performed By: #### I RONP #### [facility] [address] [place] [address] Iron Binding Capacity 321 ug/dL Normal 178-450 [facility] Comment on above: Performed By: #### I RONP #### [facility] [address] [place] [address] Iron [Mass/Vol] 35 ug/dL Low 37-145 [facility] Comment on above: Performed By: #### I RONP #### [facility] [address] [place] [address] Vitamin B12on 01-04-2019 Cobalamin (Vitamin B12) [Mass/Vol] 765 pg/mL Normal 232-1245 [facility] Comment on above: Performed By: #### C XWND #### [facility] [address] [place] [address] CBC With Platelet and Differ entialon 12-27-2018 Slide Review see below Normal [facility] Comment on above: Result Comment: Slid e review agrees with reported results Performed By: #### C BCWD #### [facility] [address] [place] [address] Anisocytosis Ql (Bld) 1+ Normal [facility] Comment on above: Performed By: #### C BCWD #### [facility] [address] [place] [address] Hypochromia 1+ Normal [facility] Comment on above: Performed By: #### C BCWD #### [facility] [address] [place] [address] Microcytic 1+ Normal [facility] Comment on above: Performed By: #### C BCWD #### [facility] [address] [place] [address] Platelet Slide Review Normal Normal [facility] Comment on above: Performed By: #### C BCWD #### [facility] [address] [place] [address] Basophils (Bld) [#/Vol] 0.0 10*3/uL Normal 0.0-0.2 [facility] Comment on above: Performed By: #### C BCWD #### [facility] [address] [place] [address] Basophils/100 WBC (Bld) 0.7 % Normal [facility] Comment on above: Performed By: #### C BCWD #### [facility] [address] [place] [address] Eosinophils (Bld) [#/Vol] 0.3 10*3/uL Normal 0.0-0.7 [facility] Comment on above: Performed By: #### C BCWD #### [facility] [address] [place] [address] Eosinophils/100 WBC (Bld) 5.3 % Normal [facility] Comment on above: Performed By: #### C BCWD #### [facility] [address] [place] [address] Erythrocyte distribution width (RBC) [Ratio] 18.8 % Critically high 11.5-14.5 [facility] Comment on above: Performed By: #### C BCWD #### [facility] [address] [place] [address] Hematocrit (Bld) [Volume fraction] 33.1 % Low 37.0-47.0 [facility] Comment on above: Performed By: #### C BCWD #### [facility] [address] [place] [address] Hemoglobin (Bld) [Mass/Vol] 10.7 g/dL Low 12.0-16.0 [facility] Comment on above: Performed By: #### C BCWD #### [facility] [address] [place] [address] Lymphocytes (Bld) [#/Vol] 1.6 10*3/uL Normal 1.0-4.8 [facility] Comment on above: Performed By: #### C BCWD #### [facility] [address] [place] [address] Lymphocytes/100 WBC (Bld) 26.4 % Normal [facility] Comment on above: Performed By: #### C BCWD #### [facility] [address] [place] [address] MCH (RBC) [Entitic mass] 23.3 pg Low 27.0-31.3 [facility] Comment on above: Performed By: #### C BCWD #### [facility] [address] [place] [address] MCHC (RBC) [Mass/Vol] 32.4 % Low 33.0-37.0 [facility] Comment on above: Performed By: #### C BCWD #### [facility] [address] [place] [address] MCV (RBC) [Entitic vol] 72.0 fL Low 82.0-100.0 [facility] Comment on above: Performed By: #### C BCWD #### [facility] [address] [place] [address] Monocytes (Bld) [#/Vol] 0.4 10*3/uL Normal 0.2-0.8 [facility] Comment on above: Performed By: #### C BCWD #### [facility] [address] [place] [address] Monocytes/100 WBC (Bld) 6.2 % Normal [facility] Comment on above: Performed By: #### C BCWD #### [facility] [address] [place] [address] Neutrophils (Bld) [#/Vol] 3.8 10*3/uL Normal 1.4-6.5 [facility] Comment on above: Performed By: #### C BCWD #### [facility] [address] [place] [address] Neutrophils/100 WBC (Bld) 61.4 % Normal [facility] Comment on above: Performed By: #### C BCWD #### [facility] [address] [place] [address] Platelets (Bld) [#/Vol] 242 10*3/uL Normal 130-400 [facility] Comment on above: Performed By: #### C BCWD #### [facility] [address] [place] [address] RBC (Bld) [#/Vol] 4.60 10*6/uL Normal 4.20-5.40 [facility] Comment on above: Performed By: #### C BCWD #### [facility] [address] [place] [address] WBC (Bld) [#/Vol] 6.1 10*3/uL Normal 4.8-10.8 [facility] Comment on above: Performed By: #### C BCWD #### [facility] [address] [place] [address] Basic Metabolic Panelon 08- Anion gap [Moles/Vol] 12 mmol/L Normal 9-15 [facility] Comment on above: Performed By: #### B MP #### [facility] [address] [place] [address] Calcium [Mass/Vol] 8.6 mg/dL Normal 8.5-9.9 [facility] Comment on above: Performed By: #### B MP #### [facility] [address] [place] [address] Chloride [Moles/Vol] 100 mmol/L Normal 95-107 [facility] Comment on above: Performed By: #### B MP #### [facility] [address] [place] [address] CO2 [Moles/Vol] 26 mmol/L Normal 20-31 [facility] Comment on above: Performed By: #### B MP #### [facility] [address] [place] [address] Creatinine [Mass/Vol] 0.66 mg/dL Normal 0.50-0.90 [facility] Comment on above: Performed By: #### B MP #### [facility] [address] [place] [address] GFR/1.73 sq M predicted among blacks MDRD (S/P/Bld) [Vol rate/Area] mL/min/{1.73_m2} Normal >60 [facility] Comment on above: Result Comment: >60 mL/min/1.73m2 EGFR, calc. for ages 18 and older using the MDRD formula (not corrected for weight), is valid for stable renal function. Performed By: #### B MP #### [facility] [address] [place] [address] GFR/1.73 sq M.predicted MDRD (S/P/Bld) [Vol rate/Area] mL/min/{1.73_m2} Normal >60 [facility] Comment on above: Result Comment: >60 mL/min/1.73m2 EGFR, calc. for ages 18 and older using the MDRD formula (not corrected for weight), is valid for stable renal function. Performed By: #### B MP #### [facility] [address] [place] [address] Glucose [Mass/Vol] 129 mg/dL Critically high 70-99 [facility] Comment on above: Performed By: #### B MP #### [facility] [address] [place] [address] Potassium [Moles/Vol] 3.7 mmol/L Normal 3.4-4.9 [facility] Comment on above: Performed By: #### B MP #### [facility] [address] [place] [address] Sodium [Moles/Vol] 138 mmol/L Normal 135-144 [facility] Comment on above: Performed By: #### B MP #### [facility] [address] [place] [address] Urea nitrogen [Mass/Vol] 11 mg/dL Normal 6-20 [facility] Comment on above: Performed By: #### B MP #### [facility] [address] [place] [address] Culture, Urineon 12-25-2018 Culture, Urine ORDERED BY: ZIYAD RODRIGUEZ SOURCE: Urine Voided COLLECTED: 12/25/18 15:55 ANTIBIOTICS AT ROMAIN.: RECEIVED : 12/25/18 16:05 Culture, Urine FINAL 12/26/18 11:04 <50,000 CFU/ml of mixed barb Multiple organisms isolated, no predominance. Culture indicates probable contamination. Please review colony count and clinical indications to determine if a repeat culture is necessary. No further workup to be done. Normal [facility] Comment on above: Performed By: #### C XURN #### [facility] [address] [place] [address] Urinalysis, reflex to micros copicon 12-25-2018 Bilirubin Ql (U) Negative Normal Negative [facility] Comment on above: Performed By: #### U A #### [facility] [address] [place] [address] Clarity (U) Clear Normal Clear [facility] Comment on above: Performed By: #### U A #### [facility] [address] [place] [address] Color (U) Yellow Normal Straw/Coffey [facility] Comment on above: Performed By: #### U A #### [facility] [address] [place] [address] Glucose Ql (U) Negative Normal Negative [facility] Comment on above: Performed By: #### U A #### [facility] [address] [place] [address] Hemoglobin Ql (U) MODERATE Abnormal Negative [facility] Comment on above: Performed By: #### U A #### [facility] [address] [place] [address] Ketones Ql (U) TRACE Abnormal Negative [facility] Comment on above: Performed By: #### U A #### [facility] [address] [place] [address] Leukocyte esterase Test strip Ql (U) TRACE Abnormal Negative [facility] Comment on above: Performed By: #### U A #### [facility] [address] [place] [address] Nitrite Ql (U) Negative Normal Negative [facility] Comment on above: Performed By: #### U A #### [facility] [address] [place] [address] pH (U) 7.5 [pH] Normal 5.0-9.0 [facility] Comment on above: Performed By: #### U A #### [facility] [address] [place] [address] Protein Ql (U) TRACE Abnormal Negative [facility] Comment on above: Performed By: #### U A #### [facility] [address] [place] [address] Specific gravity (U) [Rel density] 1.025 Normal 1.005-1.03 [facility] Comment on above: Performed By: #### U A #### [facility] [address] [place] [address] Urobilinogen Qn (U) 1.0 {Donna'U}/dL Normal < 2.0 [facility] Comment on above: Performed By: #### U A #### [facility] [address] [place] [address] Urine Microscopicon 12-26-19 19 Bacteria LM.HPF (Urine sed) [#/Area] Negative Normal [facility] Comment on above: Performed By: #### U SAI #### [facility] [address] [place] [address] RBC (U) [#/Vol] 20-50 Abnormal 0-5 [facility] Comment on above: Performed By: #### U SAI #### [facility] [address] [place] [address] Urine Epithelial Cells Auto 6-10 Normal 0-5 [facility] Comment on above: Performed By: #### U SAI #### [facility] [address] [place] [address] Urine Hyaline Casts Auto 1-3 Normal 0-5 [facility] Comment on above: Performed By: #### U SAI #### [facility] [address] [facility] [place] [address] Urine WBC Auto 0-2 Normal 0-5 [facility] Comment on above: Performed By: #### U SAI #### [facility] [address] [place] [address] Basic Metabolic Panel w/ Ref carlos to MGon 12-21-2018 Anion gap [Moles/Vol] 10 mmol/L [facility], [place] Calcium [Mass/Vol] 7.6 mg/dL Low 8.5 - 9.9 mg/dL [facility], [place] Chloride [Moles/Vol] 103 mmol/L [facility], [place] CO2 [Moles/Vol] 23 mmol/L [place] Creatinine [Mass/Vol] 0.77 mg/dL 0.5 - 0.9 mg/dL [place] GFR >60.0 >60 [place] Comment on above: >60 mL/min/1.73m2 EG FR, calc. for ages 18 and older using the MDRD formula (not corrected for weight), is valid for stable renal function. GFR Non- >60.0 >60 [place] Comment on above: >60 mL/min/1.73m2 EG FR, calc. for ages 18 and older using the MDRD formula (not corrected for weight), is valid for stable renal function. Glucose [Mass/Vol] 80 mg/dL 70 - 99 mg/dL [place] Interpretation and review of laboratory results Abnormal [place] Potassium [Moles/Vol] 4.1 mmol/L [place] Sodium [Moles/Vol] 136 mmol/L [place] Urea nitrogen [Mass/Vol] 16 mg/dL 6 - 20 mg/dL [place] Collection has been rescheduled by [facility] at 12/21/2018 04:34 Reason: Patient has port or line [place] CBC Auto Differentialon 12-07 Anisocytosis Ql (Bld) 1+ [place] Basophils (Bld) [#/Vol] 0.0 10*3/uL 0 - 0.2 K/uL [place] Basophils/100 WBC (Bld) 0.5 % [place] Eosinophils (Bld) [#/Vol] 0.5 10*3/uL 0 - 0.7 K/uL [place] Eosinophils/100 WBC (Bld) 6.9 % [place] Erythrocyte distribution width (RBC) [Ratio] 19.3 % High 11.5 - 14.5 % [place] Hematocrit (Bld) [Volume fraction] 28.9 % Low 37 - 47 % [place] Hemoglobin (Bld) [Mass/Vol] 9.4 g/dL Low 12 - 16 g/dL [place] Interpretation and review of laboratory results Abnormal [place] Lymphocytes (Bld) [#/Vol] 1.0 10*3/uL 1 - 4.8 K/uL [place] Lymphocytes/100 WBC (Bld) 15.4 % [place] MCH (RBC) [Entitic mass] 23.5 pg Low 27 - 31.3 pg [place] MCHC (RBC) [Mass/Vol] 32.4 % Low 33 - 37 % [place] MCV (RBC) [Entitic vol] 72.5 fL Low 82 - 100 fL [place] Microcytes 1+ [place] Monocytes (Bld) [#/Vol] 0.4 10*3/uL 0.2 - 0.8 K/uL [place] Monocytes/100 WBC (Bld) 6.7 % [place] Neutrophils (Bld) [#/Vol] 4.6 10*3/uL 1.4 - 6.5 K/uL [place] Neutrophils/100 WBC (Bld) 70.5 % [place] Platelets (Bld) [#/Vol] 175 10*3/uL 130 - 400 K/uL [place] RBC (Bld) [#/Vol] 3.99 10*6/uL Low [place] WBC (Bld) [#/Vol] 6.6 10*3/uL 4.8 - 10.8 K/uL [place] Collection has been rescheduled by [facility] at 12/21/2018 04:34 Reason: Patient has port or line [place] Basic Metabolic Panel w/ Ref carlos to MGon 12-20-2018 Anion gap [Moles/Vol] 10 mmol/L [place] Calcium [Mass/Vol] 7.7 mg/dL Low 8.5 - 9.9 mg/dL [place] Chloride [Moles/Vol] 106 mmol/L [place] CO2 [Moles/Vol] 24 mmol/L [place] Creatinine [Mass/Vol] 0.85 mg/dL 0.5 - 0.9 mg/dL [place] GFR >60.0 >60 [place] Comment on above: >60 mL/min/1.73m2 EG FR, calc. for ages 18 and older using the MDRD formula (not corrected for weight), is valid for stable renal function. GFR Non- >60.0 >60 [place] Comment on above: >60 mL/min/1.73m2 EG FR, calc. for ages 18 and older using the MDRD formula (not corrected for weight), is valid for stable renal function. Glucose [Mass/Vol] 89 mg/dL 70 - 99 mg/dL [place] Interpretation and review of laboratory results Abnormal [place] Potassium [Moles/Vol] 3.9 mmol/L [place] Sodium [Moles/Vol] 140 mmol/L [place] Urea nitrogen [Mass/Vol] 16 mg/dL 6 - 20 mg/dL [place] CBC auto differentialon 12-07 Basophils (Bld) [#/Vol] 0.0 10*3/uL 0 - 0.2 K/uL [place] Basophils/100 WBC (Bld) 0.2 % [place] Eosinophils (Bld) [#/Vol] 0.6 10*3/uL 0 - 0.7 K/uL [place] Eosinophils/100 WBC (Bld) 7 % [place] Erythrocyte distribution width (RBC) [Ratio] 19.2 % High 11.5 - 14.5 % [place] Hematocrit (Bld) [Volume fraction] 30.6 % Low 37 - 47 % [place] Hemoglobin (Bld) [Mass/Vol] 10.4 g/dL Low 12 - 16 g/dL [place] Interpretation and review of laboratory results Abnormal [place] Lymphocytes (Bld) [#/Vol] 0.9 10*3/uL Low 1 - 4.8 K/uL [place] Lymphocytes/100 WBC (Bld) 10.1 % [place] MCH (RBC) [Entitic mass] 24.9 pg Low 27 - 31.3 pg [place] MCHC (RBC) [Mass/Vol] 33.9 % 33 - 37 % [place] MCV (RBC) [Entitic vol] 73.6 fL Low 82 - 100 fL [place] Monocytes (Bld) [#/Vol] 0.4 10*3/uL 0.2 - 0.8 K/uL [place] Monocytes/100 WBC (Bld) 5.1 % [place] Neutrophils (Bld) [#/Vol] 6.7 10*3/uL High 1.4 - 6.5 K/uL [place] Neutrophils/100 WBC (Bld) 77.6 % [place] Platelets (Bld) [#/Vol] 190 10*3/uL 130 - 400 K/uL [place] RBC (Bld) [#/Vol] 4.16 10*6/uL Low [place] WBC (Bld) [#/Vol] 8.6 10*3/uL 4.8 - 10.8 K/uL [place] Otheron 12-20-2018 Roshan, Marypo Incoming Radiant Results From [facility] - 12/20/2018 5:28 PM EDT PERIPHERALLY INSERTED CENTRAL CATHETER (PICC) PLACEMENT WITH ULTRASOUND GUIDANCE CLINICAL HISTORY: PICC PLACEMENT FOR IV ANTIBIOTICS TO TREAT CELLULITIS OF ABDOMEN. After discussing the procedure and possible complications with the patient, informed consent was obtained. The patient was placed on the Special Procedures table. The right upper extremity was sterilely prepared using 2% chlorhexidine. Central venous catheter was inserted using a maximal sterile barrier technique which includes cap, mask, sterile gown, sterile gloves, sterile full-body drape, hand hygiene and 2% chlorhexidine for cutaneous antisepsis. A sterile ultrasound technique with sterile gel and sterile probe covers was also utilized. A pre-procedure time out was performed in order to assure the correct patient and procedure. Local anesthetic was administered. Utilizing sterile gel and sterile probe covers, a peripheral vein was accessed with sonographic guidance. A sonographic spot image was obtained for documentation. A guidewire was advanced into the vein with fluoroscopic guidance and a sheath was placed over the guidewire. A 5-Cuban dual-lumen PICC was advanced through the sheath, up the arm and into the central vasculature. It was positioned appropriately. The sheath was removed. The catheter was shown to aspirate and infuse properly. The flange of the catheter was affixed to the arm using a PICC securement device. A spot image of the chest showed the tip of the PICC line to lie in the superior vena cava. The patient tolerated the procedure well and without complications. Number of films: 1 Fluoroscopy time: 41.4 seconds CONCLUSION: SUCCESSFUL RIGHT PICC PLACEMENT WITHOUT IMMEDIATE COMPLICATIONS. [place] PERIPHERALLY INSERTE D CENTRAL CATHETER (PICC) PLACEMENT WITH ULTRASOUND GUIDANCE CLINICAL HISTORY: PICC PLACEMENT FOR IV ANTIBIOTICS TO TREAT CELLULITIS OF ABDOMEN. After discussing the procedure and possible complications with the patient, informed consent was obtained. The patient was placed on the Special Procedures table. The right upper extremity was sterilely prepared using 2% chlorhexidine. Central venous catheter was inserted using a maximal sterile barrier technique which includes cap, mask, sterile gown, sterile gloves, sterile full-body drape, hand hygiene and 2% chlorhexidine for cutaneous antisepsis. A sterile ultrasound technique with sterile gel and sterile probe covers was also utilized. A pre-procedure time out was performed in order to assure the correct patient and procedure. Local anesthetic was administered. Utilizing sterile gel and sterile probe covers, a peripheral vein was accessed with sonographic guidance. A sonographic spot image was obtained for documentation. A guidewire was advanced into the vein with fluoroscopic guidance and a sheath was placed over the guidewire. A 5-Cuban dual-lumen PICC was advanced through the sheath, up the arm and into the central vasculature. It was positioned appropriately. The sheath was removed. The catheter was shown to aspirate and infuse properly. The flange of the catheter was affixed to the arm using a PICC securement device. A spot image of the chest showed the tip of the PICC line to lie in the superior vena cava. The patient tolerated the procedure well and without complications. Number of films: 1 Fluoroscopy time: 41.4 seconds CONCLUSION: SUCCESSFUL RIGHT PICC PLACEMENT WITHOUT IMMEDIATE COMPLICATIONS. [place] Urine Cultureon 12-20-2018 Bacteria identified Cx Nom (U) No growth 24 hours [place], [place] ORDERED BY: RAJENDRA ANTONIO SOURCE: Urine Clean Catch COLLECTED: 12/18/18 22:45 ANTIBIOTICS AT [facility].: RECEIVED : 12/19/18 00:53 [place] VANCOMYCIN, TROUGHon 019 Interpretation and review of laboratory results Abnormal [place] Vancomycin Tr 4.1 ug/mL Low 10 - 20 ug/mL [place] Basic Metabolic Panel w/ Ref carlos to MGon 12-19-2018 Anion gap [Moles/Vol] 12 mmol/L [place] Calcium [Mass/Vol] 8.2 mg/dL Low 8.5 - 9.9 mg/dL [place] Chloride [Moles/Vol] 103 mmol/L [place] CO2 [Moles/Vol] 23 mmol/L [place] Creatinine [Mass/Vol] 0.9 mg/dL 0.5 - 0.9 mg/dL [place] GFR >60.0 >60 [place] Comment on above: >60 mL/min/1.73m2 EG FR, calc. for ages 18 and older using the MDRD formula (not corrected for weight), is valid for stable renal function. GFR Non- >60.0 >60 [place] Comment on above: >60 mL/min/1.73m2 EG FR, calc. for ages 18 and older using the MDRD formula (not corrected for weight), is valid for stable renal function. Glucose [Mass/Vol] 124 mg/dL High 70 - 99 mg/dL [place] Interpretation and review of laboratory results Abnormal [place] Potassium [Moles/Vol] 3.8 mmol/L [place] Sodium [Moles/Vol] 138 mmol/L [place] Urea nitrogen [Mass/Vol] 13 mg/dL 6 - 20 mg/dL [place] CBC auto differentialon 12-07 Basophils (Bld) [#/Vol] 0.0 10*3/uL 0 - 0.2 K/uL [place] Basophils/100 WBC (Bld) 0.2 % [place] Eosinophils (Bld) [#/Vol] 0.0 10*3/uL 0 - 0.7 K/uL [place] Eosinophils/100 WBC (Bld) 0.1 % [place] Erythrocyte distribution width (RBC) [Ratio] 19.1 % High 11.5 - 14.5 % [place] Hematocrit (Bld) [Volume fraction] 32.2 % Low 37 - 47 % [place] Hemoglobin (Bld) [Mass/Vol] 10.5 g/dL Low 12 - 16 g/dL [place] Interpretation and review of laboratory results Abnormal [place] Lymphocytes (Bld) [#/Vol] 0.7 10*3/uL Low 1 - 4.8 K/uL [place] Lymphocytes/100 WBC (Bld) 6.5 % [place] MCH (RBC) [Entitic mass] 23.7 pg Low 27 - 31.3 pg [place] MCHC (RBC) [Mass/Vol] 32.8 % Low 33 - 37 % [place] MCV (RBC) [Entitic vol] 72.3 fL Low 82 - 100 fL [place] Monocytes (Bld) [#/Vol] 0.4 10*3/uL 0.2 - 0.8 K/uL [place] Monocytes/100 WBC (Bld) 3.5 % [place] Neutrophils (Bld) [#/Vol] 10.2 10*3/uL High 1.4 - 6.5 K/uL [place] Neutrophils/100 WBC (Bld) 89.7 % [place] Platelets (Bld) [#/Vol] 226 10*3/uL 130 - 400 K/uL [place] RBC (Bld) [#/Vol] 4.45 10*6/uL [place] WBC (Bld) [#/Vol] 11.4 10*3/uL High 4.8 - 10.8 K/uL [place] Lactic Acid, Plasmaon 2018 Lactate [Moles/Vol] 1.5 mmol/L 0.5 - 2. 2 mmol/L [place] Microscopic Urinalysison Bacteria, UA RARE Abnormal /HPF [place] Epi Cells 3-5 [place] Hyaline Casts, UA 1-3 [place] Interpretation and review of laboratory results Abnormal [place] RBC (U) [#/Vol] 20-50 Abnormal [place] WBC, UA 6-10 Abnormal [place] POCT Glucoseon 12-19-2018 Glucose [Mass/Vol] 126 mg/dL High 60 - 115 mg/dl [place] Interpretation and review of laboratory results Abnormal [place] Performed on ACCU-CHEK [place] US DUP LOWER EXTREMITY LEFT VENon 12-19-2018 NO SONOGRAPHIC EVIDE NCE OF DEEP VENOUS THROMBOSIS WITHIN THE LEFT LOWER EXTREMITY. [place] Roshan, Chpo Incoming Radiant Results From [facility] - 12/19/2018 1:21 PM EDT VENOUS DUPLEX ULTRASOUND OF THE LEFT LOWER EXTREMITY CLINICAL HISTORY: LEFT LEG PAIN COMPARISON: VENOUS DUPLEX OF THE LOWER EXTREMITY FROM APRIL 03, 2018 TECHNIQUE: Trimble scale, duplex Doppler, with compression and augmentation sonography of the deep venous system of the left lower extremity was performed by a registered pump stitcher and the images were submitted for interpretation. FINDINGS: The common femoral, superficial femoral, and popliteal veins demonstrate normal color flow, augmentation, and compressibility. No venous duplex ultrasound evidence of DVT in the left lower extremity. IMPRESSION: NO SONOGRAPHIC EVIDENCE OF DEEP VENOUS THROMBOSIS WITHIN THE LEFT LOWER EXTREMITY. [place] VENOUS DUPLEX ULTRAS OUND OF THE LEFT LOWER EXTREMITY CLINICAL HISTORY: LEFT LEG PAIN COMPARISON: VENOUS DUPLEX OF THE LOWER EXTREMITY FROM APRIL 03, 2018 TECHNIQUE: Trimble scale, duplex Doppler, with compression and augmentation sonography of the deep venous system of the left lower extremity was performed by a registered pump stitcher and the images were submitted for interpretation. FINDINGS: The common femoral, superficial femoral, and popliteal veins demonstrate normal color flow, augmentation, and compressibility. No venous duplex ultrasound evidence of DVT in the left lower extremity. [place] Urine Reflex to Cultureon Bilirubin Urine Negative Negative [place] Blood, Urine LARGE Abnormal Negative [place] Clarity, UA Clear Clear [place] Color, UA Yellow Straw/Yello w [place] Glucose, Ur Negative Negative mg/dL [place] Interpretation and review of laboratory results Abnormal [place] Ketones Ql (U) TRACE Abnormal Negative mg/dL [place] Leukocyte esterase Test strip Ql (U) TRACE Abnormal Negative [place] Nitrite, Urine Negative Negative [place] pH, UA 5.5 [place] Protein (U) [Mass/Vol] 30 mg/dL Abnormal Negative [place] Specific [place], UA 1.018 [place] Urine Reflex to Culture YES [place] Urobilinogen, Urine 1.0 <2.0 E.U./dL [place] CBC Auto Differentialon 12-07 Anisocytosis Ql (Bld) 1+ [place] Bands Relative 20 % High 5 - 11 % [place] Basophils (Bld) [#/Vol] 0.0 10*3/uL 0 - 0.2 K/uL [place] Basophils/100 WBC (Bld) 0.3 % [place] Eosinophils (Bld) [#/Vol] 0.0 10*3/uL 0 - 0.7 K/uL [place] Eosinophils/100 WBC (Bld) 0 % [place] Erythrocyte distribution width (RBC) [Ratio] 19.3 % High 11.5 - 14.5 % [place] Hematocrit (Bld) [Volume fraction] 37.1 % 37 - 47 % [place] Hemoglobin (Bld) [Mass/Vol] 11.9 g/dL Low 12 - 16 g/dL [place] Interpretation and review of laboratory results Abnormal [place] Lymphocytes (Bld) [#/Vol] 1.0 10*3/uL 1 - 4.8 K/uL [place] Comment on above: Corrected result; pr eviously reported as 0.8 on 12/18/2018 at 22:55 by MADISYN Lymphocytes/100 WBC (Bld) 6.0 % [place] Comment on above: Corrected result; pr eviously reported as 5.1 on 12/18/2018 at 22:55 by MADISYN MCH (RBC) [Entitic mass] 23.4 pg Low 27 - 31.3 pg [place] MCHC (RBC) [Mass/Vol] 32.2 % Low 33 - 37 % [place] MCV (RBC) [Entitic vol] 72.5 fL Low 82 - 100 fL [place] Microcytes 1+ [place] Monocytes (Bld) [#/Vol] 1.1 10*3/uL High 0.2 - 0.8 K/uL [place] Comment on above: Corrected result; pr eviously reported as 0.4 on 12/18/2018 at 22:55 by MADISYN Monocytes/100 WBC (Bld) 6.6 % [place] Comment on above: Corrected result; pr eviously reported as 2.8 on 12/18/2018 at 22:55 by MADISYN Neutrophils (Bld) [#/Vol] 14.2 10*3/uL High 1.4 - 6.5 K/uL [place] Comment on above: Corrected result; pr eviously reported as 14.8 on 12/18/2018 at 22:55 by MADISYN Neutrophils/100 WBC (Bld) 68.0 % [place] Comment on above: Corrected result; pr eviously reported as 91.8 on 12/18/2018 at 22:55 by MADISYN PLATELET SLIDE REVIEW Normal [place] Platelets (Bld) [#/Vol] 248 10*3/uL 130 - 400 K/uL [place] Poikilocytes 1+ [place] RBC (Bld) [#/Vol] 5.12 10*6/uL [place] WBC (Bld) [#/Vol] 16.1 10*3/uL High 4.8 - 10.8 K/uL [place] Comprehensive Metabolic Pane elio 12-18-2018 Albumin [Mass/Vol] 3.7 g/dL 3.5 - 4.6 g/dL [place] ALP [Catalytic activity/Vol] 87 U/L 40 - 130 U/L [place] ALT [Catalytic activity/Vol] 13 U/L 0 - 33 U/L [place] Anion gap [Moles/Vol] 17 mmol/L [place] AST [Catalytic activity/Vol] 25 U/L 0 - 35 U/L [place] Bilirubin Ql (U) 0.9 mg/dL High 0.2 - 0.7 mg/dL [place] Calcium [Mass/Vol] 8.9 mg/dL 8.5 - 9.9 mg/dL [place] Chloride [Moles/Vol] 97 mmol/L [place] CO2 [Moles/Vol] 22 mmol/L [place] Creatinine [Mass/Vol] 0.96 mg/dL High 0.5 - 0.9 mg/dL [place] GFR >60.0 >60 [place] Comment on above: >60 mL/min/1.73m2 EG FR, calc. for ages 18 and older using the MDRD formula (not corrected for weight), is valid for stable renal function. GFR Non- >60.0 >60 [place] Comment on above: >60 mL/min/1.73m2 EG FR, calc. for ages 18 and older using the MDRD formula (not corrected for weight), is valid for stable renal function. Globulin (S) [Mass/Vol] 4.5 g/dL High 2.3 - 3.5 g/dL [place] Glucose [Mass/Vol] 149 mg/dL High 70 - 99 mg/dL [place] Interpretation and review of laboratory results Abnormal [place] Potassium [Moles/Vol] 3.8 mmol/L [place] Protein [Mass/Vol] 8.2 g/dL High 6.3 - 8 g/dL [place] Sodium [Moles/Vol] 136 mmol/L [place] Urea nitrogen [Mass/Vol] 12 mg/dL 6 - 20 mg/dL [place] Lactic Acid, Plasmaon 2018 Interpretation and review of laboratory results Abnormal [place] Lactate [Moles/Vol] 2.7 mmol/L High 0.5 - 2. 2 mmol/L [place] BASIC METABOLIC PANELon Anion gap [Moles/Vol] 13 mmol/L Normal 10 - 20 [facility] Comment on above: Performed By: #### B MP ####[address] [address] Calcium [Mass/Vol] 8.1 mg/dL Low 8.6 - 10.3 [facility] Comment on above: Performed By: #### B MP ####[address] [address] Chloride [Moles/Vol] 100 mmol/L Normal 98 - 107 [facility] Comment on above: Performed By: #### B MP ####[address] [address] Creatinine [Mass/Vol] 0.89 mg/dL Normal 0.50 - 1.05 [facility] Comment on above: Performed By: #### B MP ####[address] [address] GFR- AM. >60 Normal >60 [facility] Comment on above: Result Comment: CALC ULATIONS OF ESTIMATED GFR ARE PERFORMED USING THE MDRD STUDY EQUATION FOR THE IDMS-TRACEABLE CREATININE METHODS. CLIN CHEM 2007;53:766-72 Performed By: #### B MP ####[address] [address] GFR-NON AM. >60 Normal >60 [facility] Comment on above: Performed By: #### B MP ####[address] [address] Glucose [Mass/Vol] 97 mg/dL Normal 74 - 99 [facility] Comment on above: Performed By: #### B MP ####[address] [place] [address] HCO3 (Bld) [Moles/Vol] 31 mmol/L Normal 21 - 32 [facility] Comment on above: Performed By: #### B MP ####[address] [place] [address] Potassium [Moles/Vol] 3.5 mmol/L Normal 3.5 - 5.3 [facility] Comment on above: Performed By: #### B MP ####[address] [address] Sodium [Moles/Vol] 140 mmol/L Normal 136 - 145 [facility] Comment on above: Performed By: #### B MP ####[address] [address] Urea nitrogen [Mass/Vol] 9 mg/dL Normal 6 - 23 [facility] Comment on above: Performed By: #### B MP ####[address] [address] CBCon 11-10-2018 Erythrocyte distribution width (RBC) [Ratio] 16.5 % High 11.5 - 14.5 [facility] Comment on above: Performed By: #### C BC ####[address] [address] Hematocrit (Bld) [Volume fraction] 33.0 % Low 36.0 - 46.0 [facility] Comment on above: Performed By: #### C BC ####[address] [place] [address] Hemoglobin (Bld) [Mass/Vol] 9.6 g/dL Low 12.0 - 16.0 [facility] Comment on above: Performed By: #### C BC ####[address] [place] [address] MCHC (RBC) [Mass/Vol] 29.1 g/dL Low 32.0 - 36.0 [facility] Comment on above: Performed By: #### C BC ####[address] [address] MCV (RBC) [Entitic vol] 79 fL Low 80 - 100 [facility] Comment on above: Performed By: #### C BC ####[address] [address] Nucleated RBC/100 WBC (Bld) [Ratio] 0.0 /100 WBC Normal 0.0 - 0.0 [facility] Comment on above: Performed By: #### C BC ####[address] [address] Platelets (Bld) [#/Vol] 254 10*3/uL Normal 150 - 450 [facility] Comment on above: Performed By: #### C BC ####[address] [address] RBC (Bld) [#/Vol] 4.18 x10E12/L Normal 4.00 - 5.20 [facility] Comment on above: Performed By: #### C BC ####[address] [address] WBC (Bld) [#/Vol] 5.4 10*3/uL Normal 4.4 - 11.3 [facility] Comment on above: Performed By: #### C BC ####[address] [address] Daily Progress Note-Infectio us Diseaseon 11-10-2018 Daily Progress Note-Infectious Disease Service: Infectious Disease Subjective Data: LISA PINTO is a 37 year old Female who is Hospital Day # 4. Overnight Events: Patient had an uneventful night. Additional Information: Patient reports decreased discomfort in the left lower extremity. She still complains of a fair amount of itching in both lower extremities. Objective Data: Objective Information: T PRBPSpO2 [id number]% Date/Time11/10 14: 14: 14: 14: 14:45 Range(36.2C - 36.9C ) (72 - 89 ) (14 - 18 ) (103 - 117 )/ (50 - 66 ) (94% - 99% ) Highest temp of 36.9 C was recorded at 11/10 0:00 Pain reported at 11/10 10:23: 4 = Moderate Pain reported at 11/10 9:23: 7 = Severe T PRBPSpO2 [id number]/5098% Date/Time11/10 14: 14: 14: 14: 14:45 Range(36.2C - 36.9C ) (72 - 89 ) (14 - 18 ) (103 - 117 )/ (50 - 66 ) (94% - 99% ) Highest temp of 36.9 C was recorded at 11/10 0:00 She is again sitting in a bedside chair with her legs in a dependent position. The previously noted open skin lesions on the left calf are now closed and dry. There is no overlying erythema, crusting or residue. No odor is noted. There is evidence of excoriations from scratching over the anterior aspect of both legs. There is no cellulitis. Medication: Medications: Continuous Medications -------- No continuous medications are active Scheduled Medications -------- 1. Apixaban: 5 mg Oral Every 12 Hours 2. Ferrous Sulfate: 325 mg Oral Daily 3. Furosemide: 40 mg Oral 2 Times a Day 4. Hydrocortisone 1% Topical: 1 application(s) Topical 3 Times a Day 5. Lactobacillus: 1 capsule(s) Oral Daily 6. Metoprolol Tartrate: 25 mg Oral Every 12 Hours 7. Piperacillin - Tazobactam 3.375 gram/Iso-osmotic 50 mL Premix IVPB: 50 mL IntraVenous Piggyback Every 8 Hours 8. Potassium Chloride Extended Release: 20 mEq Oral Daily PRN Medications -------- 1. Acetaminophen: 650 mg Oral Every 4 Hours 2. Dextrose 50% in Water Injectable: 25 gram(s) IntraVenous Push Every 15 Minutes 3. diphenhydrAMINE: 25 mg Oral Every 24 Hours 4. Docusate: 100 mg Oral 2 Times a Day 5. Glucagon Injectable: 1 mg IntraMuscular Every 15 Minutes 6. oxyCODONE 5 mg - Acetaminophen 325 m tablet(s) Oral Every 4 Hours 7. Prochlorperazine: 10 mg Oral Every 8 Hours 8. Sodium Chloride 0.9% Injectable Flush: 1.5 mL IntraVenous Flush Every 8 Hours and as Needed Recent Lab Results: Results: I have reviewed these laboratory results: Complete Blood Count 10-Nov-2018 06:38:00 ResultValue White Blood Cell Count 5.4 Nucleated Erythrocyte Count 0.0 Red Blood Cell Count 4.18 HGB 9.6 L HCT 33.0 L MCV 79 L MCHC 29.1 L PLT 254 RDW-CV 16.5 H Basic Metabolic Panel 10-Nov-2018 06:38:00 ResultValue Glucose, Serum 97 NA 140 K 3.5 CL 100 Bicarbonate, Serum 31 Anion Gap, Serum 13 BUN 9 CREAT 0.89 GFR-Non >60 GFR- >60 Calcium, Serum 8.1 L Assessment and Plan: Admitting Dx: Cellulitis: Entered Date: 07-Nov-2018 04:04 Additional Dx: Heel pain: Entered Date: 10-Nov-2018 14:39 Migraine headache: Entered Date: 10-Nov-2018 14:39 Cellulitis: Entered Date: 10-Nov-2018 14:38 Pruritus: Entered Date: 10-Nov-2018 14:36 HTN (hypertension): Entered Date: 10-Nov-2018 14:34 Type 2 diabetes mellitus: Entered Date: 08-Nov-2018 15:13 Nausea: Entered Date: 08-Nov-2018 15:12 Assessment: Assessment: 1. Open, draining wounds posterior aspect of the left leg--now resolved 2. Advanced lymphedema both lower extremities, left greater than right 3. Super morbid obesity Plan: 1. Okay to discharge patient home 2. I don't feel that any antibiotics are needed at discharge 3. Patient is encouraged to elevate her legs. She can use a topical emollient lotion to help her with itching. Aveeno anti-itch is recommended. Management is discussed with her attending physician Electronic Signatures: Marquita Quinones) (Signed 10-Nov-2018 19:01) Authored: Service, Subjective Data, Objective Data, Assessment and Plan, Signature/Cosignature/At testation Last Updated: 10-Nov-2018 19:01 by Marquita Quinones) Normal [facility] GLUCOSE-POCTon 11-10-2018 Glucose [Mass/Vol] 100 mg/dL High 74 - 99 [facility] Comment on above: Performed By: #### G LILLIANA ####[address] [address] Glucose [Mass/Vol] 96 mg/dL Normal 74 - 99 [facility] Comment on above: Performed By: #### G LILLIANA ####[address] [address] BASIC METABOLIC PANELon Anion gap [Moles/Vol] 11 mmol/L Normal 10 - 20 [facility] Comment on above: Performed By: #### B MP ####[address] [address] Calcium [Mass/Vol] 8.1 mg/dL Low 8.6 - 10.3 [facility] Comment on above: Performed By: #### B MP ####[address] [address] Chloride [Moles/Vol] 104 mmol/L Normal 98 - 107 [facility] Comment on above: Performed By: #### B MP ####[address] [address] Creatinine [Mass/Vol] 0.86 mg/dL Normal 0.50 - 1.05 [facility] Comment on above: Performed By: #### B MP ####[address] [address] GFR- AM. >60 Normal >60 [facility] Comment on above: Result Comment: CALC ULATIONS OF ESTIMATED GFR ARE PERFORMED USING THE MDRD STUDY EQUATION FOR THE IDMS-TRACEABLE CREATININE METHODS. CLIN CHEM 2007;53:766-72 Performed By: #### B MP ####[address] [address] GFR-NON AM. >60 Normal >60 [facility] Comment on above: Performed By: #### B MP ####[id number] [address] Glucose [Mass/Vol] 94 mg/dL Normal 74 - 99 [facility] Comment on above: Performed By: #### B MP ####[address] [address] HCO3 (Bld) [Moles/Vol] 28 mmol/L Normal 21 - 32 [facility] Comment on above: Performed By: #### B MP ####[address] [address] Potassium [Moles/Vol] 3.8 mmol/L Normal 3.5 - 5.3 [facility] Comment on above: Performed By: #### B MP ####[address] [address] Sodium [Moles/Vol] 139 mmol/L Normal 136 - 145 [facility] Comment on above: Performed By: #### B MP ####[address] [address] Urea nitrogen [Mass/Vol] 10 mg/dL Normal 6 - 23 [facility] Comment on above: Performed By: #### B MP ####[address] [address] CBCon 11-09-2018 Erythrocyte distribution width (RBC) [Ratio] 16.3 % High 11.5 - 14.5 [facility] Comment on above: Performed By: #### C BC ####[address] [address] Hematocrit (Bld) [Volume fraction] 33.2 % Low 36.0 - 46.0 [facility] Comment on above: Performed By: #### C BC ####[address] [address] Hemoglobin (Bld) [Mass/Vol] 9.6 g/dL Low 12.0 - 16.0 [facility] Comment on above: Performed By: #### C BC ####[address] [address] MCHC (RBC) [Mass/Vol] 28.9 g/dL Low 32.0 - 36.0 [facility] Comment on above: Performed By: #### C BC ####[id number] [place] [address] MCV (RBC) [Entitic vol] 80 fL Normal 80 - 100 [facility] Comment on above: Performed By: #### C BC ####[address] [address] Nucleated RBC/100 WBC (Bld) [Ratio] 0.0 /100 WBC Normal 0.0 - 0.0 [facility] Comment on above: Performed By: #### C BC ####[address] [address] Platelets (Bld) [#/Vol] 274 10*3/uL Normal 150 - 450 [facility] Comment on above: Performed By: #### C BC ####[address] [address] RBC (Bld) [#/Vol] 4.14 x10E12/L Normal 4.00 - 5.20 [facility] Comment on above: Performed By: #### C BC ####[address] [address] WBC (Bld) [#/Vol] 5.9 10*3/uL Normal 4.4 - 11.3 [facility] Comment on above: Performed By: #### C BC ####[address] [address] Daily Progress Note-Medicine on 11-09-2018 Daily Progress Note-Medicine Service: Medicine Subjective Data: LISA PINTO is a 37 year old Female who is Hospital Day # 3. Additional Information: This is now the third day in a row that she has afternoon nausea of unknown cause. She is also complaining of heel pain, which is aggravated when laying in bed, or applying pressure to the heels, while sitting in the chair. She has a complaint of marked pruritus in the popliteal area on the left side without evidence of any acute skin changes. Her blood sugars have remained low, and thus even though she has diabetes mellitus, further testing at this time will not add to the patient's benefit. I did suggest to issue of diabetes and prediabetes being treated with metformin. The patient informed me that she had previously been on metformin, but, due to good blood sugars her PCP had DC'd the medication. Objective Data: Objective Information: T PRBPSpO2 [id number]/5895% Date/Time11/09 7: 7: 7: 7: 7:25 Range(36C - 37.1C ) (76 - 92 ) (18 - 19 ) (112 - 127 )/ (58 - 63 ) (95% - 99% ) Highest temp of 37.1 C was recorded at 11/08 20:00 Pain reported at 11/08 21:45: 3 = Mild Pain reported at 11/09 3:12: 5 = Moderate Electronic Signatures: Tank Elizabeth) (Signed 09-Nov-2018 14:32) Authored: Service, Subjective Data, Objective Data, Signature/Cosignature/At testation Last Updated: 09-Nov-2018 14:32 by Tank Elizbaeth) Normal [facility] GLUCOSE-POCTon 11-09-2018 Glucose [Mass/Vol] 109 mg/dL High 74 - 99 [facility] Comment on above: Performed By: #### G LILLIANA ####[address] [address] Glucose [Mass/Vol] 88 mg/dL Normal 74 - 99 [facility] Comment on above: Performed By: #### G LILLIANA ####[address] [address] Glucose [Mass/Vol] 98 mg/dL Normal 74 - 99 [facility] Comment on above: Performed By: #### G LILLIANA ####[address] [address] Glucose [Mass/Vol] 98 mg/dL Normal 74 - 99 [facility] Comment on above: Performed By: #### G LILLIANA ####[address] [address] BASIC METABOLIC PANELon Anion gap [Moles/Vol] 9 mmol/L Low 10 - 20 [facility] Comment on above: Performed By: #### B MP #### [address] [place] [address] Calcium [Mass/Vol] 7.9 mg/dL Low 8.6 - 10.3 [facility] Comment on above: Performed By: #### B MP #### [address] [address] Chloride [Moles/Vol] 106 mmol/L Normal 98 - 107 [facility] Comment on above: Performed By: #### B MP #### [address] [address] Creatinine [Mass/Vol] 0.88 mg/dL Normal 0.50 - 1.05 [facility] Comment on above: Performed By: #### B MP #### [address] [address] GFR- AM. >60 Normal >60 [facility] Comment on above: Result Comment: CALC ULATIONS OF ESTIMATED GFR ARE PERFORMED USING THE MDRD STUDY EQUATION FOR THE IDMS-TRACEABLE CREATININE METHODS. CLIN CHEM 2007;53:766-72 Performed By: #### B MP #### [address] [address] GFR-NON AM. >60 Normal >60 [facility] Comment on above: Performed By: #### B MP #### [address] [address] Glucose [Mass/Vol] 106 mg/dL High 74 - 99 [facility] Comment on above: Performed By: #### B MP #### [address] [address] HCO3 (Bld) [Moles/Vol] 27 mmol/L Normal 21 - 32 [facility] Comment on above: Performed By: #### B MP #### [address] [address] Potassium [Moles/Vol] 4.0 mmol/L Normal 3.5 - 5.3 [facility] Comment on above: Performed By: #### B MP #### [address] [address] Sodium [Moles/Vol] 138 mmol/L Normal 136 - 145 [facility] Comment on above: Performed By: #### B MP #### [address] [address] Urea nitrogen [Mass/Vol] 10 mg/dL Normal 6 - 23 [facility] Comment on above: Performed By: #### B MP #### [address] [address] CBCon 11-08-2018 Erythrocyte distribution width (RBC) [Ratio] 16.0 % High 11.5 - 14.5 [facility] Comment on above: Performed By: #### C BC #### [address] [address] Hematocrit (Bld) [Volume fraction] 32.7 % Low 36.0 - 46.0 [facility] Comment on above: Performed By: #### C BC #### [address] [address] Hemoglobin (Bld) [Mass/Vol] 9.2 g/dL Low 12.0 - 16.0 [facility] Comment on above: Performed By: #### C BC #### [address] [address] MCHC (RBC) [Mass/Vol] 28.1 g/dL Low 32.0 - 36.0 [facility] Comment on above: Performed By: #### C BC #### [address] [address] MCV (RBC) [Entitic vol] 81 fL Normal 80 - 100 [facility] Comment on above: Performed By: #### C BC #### [address] [address] Nucleated RBC/100 WBC (Bld) [Ratio] 0.0 /100 WBC Normal 0.0 - 0.0 [facility] Comment on above: Performed By: #### C BC #### [address] [place] [address] Platelets (Bld) [#/Vol] 252 10*3/uL Normal 150 - 450 [facility] Comment on above: Performed By: #### C BC #### [address] [address] RBC (Bld) [#/Vol] 4.04 x10E12/L Normal 4.00 - 5.20 [facility] Comment on above: Performed By: #### C BC #### [address] [address] WBC (Bld) [#/Vol] 5.7 10*3/uL Normal 4.4 - 11.3 [facility] Comment on above: Performed By: #### C BC #### [address] [address] Clinical Event Noteon 2018 Clinical Event Note Event: Details: Called by RN; pt c/o itching to bilateral legs, requesting benadryl. One time benadryl ordered. Electronic Signatures: Linda Valdivia (SHIRT LINE OPERATOR-DECK SUPERVISOR) (Signed 08-Nov-2018 08:44) Authored: Event Last Updated: 08-Nov-2018 08:44 by Linda Valdivia (SHIRT LINE OPERATOR-DECK SUPERVISOR) Normal [facility] Consult-Infectious Diseaseon 11-08-2018 Consult-Infectious Disease Service: Service: Infectious Disease History of Present Illness: HPI: This patient is a 37-year-old, morbidly obese female who presented to the emergency room at [facility] for evaluation of lower extremity wounds. The patient reports that over the last week or so, she developed a large open wound over the posterior aspect of the left leg with associated drainage. She reports experiencing fever and chills. She has been unable to keep her legs elevated, largely due to her obesity. She was diagnosed with lower extremity cellulitis and admission to a hospital was advised. She was transferred here to [place] and admitted. At the time of her admission she was prescribed IV Zosyn which continues at the time of this dictation. Since her arrival to the hospital, there is been no documented temperature elevation. She is seen today with the wound care nurse. The patient does admit to scratching her legs due to chronic itching. She reports that she does not spend a lot of time in bed stating I can't stand laying in bed . When asked why she developed open ulcerations over the left calf area, she stated that it may rub against the back of her chair. Past medical history: Super morbid obesity, diabetes, lymphedema, history of leg wounds, bipolar disease, anxiety Review Family/Social History and ROS: Social History: Smoking Status: never smoker Alcohol Use: denies Drug Use: denies Occupation: Unemployed Constitutional: POSITIVE: Fever, Chills Musculoskeletal: POSITIVE: Swelling, Stiffness Skin: POSITIVE: Pain, Pruritus, Ulcer Allergies: Darvocet A500: Hives/Urticaria Objective: Objective Information: T PRBPSpO2 [id number]/6293% Date/Time11/08 8: 8: 8: 8: 8:19 Range(36.6C - 37.4C ) (85 - 99 ) (16 - 20 ) (122 - 166 )/ (58 - 77 ) (93% - 97% ) Highest temp of 37.4 C was recorded at 11/07 20:00 Weights 11/08 6:19: Weight in kg (Weight (kg)) 230.5 11/08 6:19: Weight in lbs ((lbs)) 508.1 11/07 15:06: BMI (kg/m2) (BMI (kg/m2)) 73.138 This is a super morbidly obese 37-year-old woman with a BMI of 73 She is sitting in an oversized chair with her legs in a dependent position. She is awake and alert and does not appear toxic. She has obvious lymphedema of both lower extremities with the left leg being worse than the right. Multiple open excoriations are noted over the anterior aspect of both legs again worse in the left than the right. A large area of open ulceration is noted over the posterior aspect of the left leg. It is obvious that there has been clear yellow drainage from the ulceration as the padding below her is sustained. The patient is malodorous. I don't see any bright red erythema suggestive of cellulitis. Skin is moist and macerated beneath many redundant skin folds. Pebbled skin is noted particularly over the posterior aspect of both legs Focal area of erythema is noted over the posterior left leg. Medications: Medications: Continuous Medications -------- No continuous medications are active Scheduled Medications -------- 1. Apixaban: 5 mg Oral Every 12 Hours 2. Ferrous Sulfate: 325 mg Oral Daily 3. Furosemide: 40 mg Oral 2 Times a Day 4. Insulin Lispro Mild Corrective Scale: unit(s) SubCutaneous 4 Times a Day 5. Lactobacillus: 1 capsule(s) Oral Daily 6. Metoprolol Tartrate: 25 mg Oral Every 12 Hours 7. Piperacillin - Tazobactam 3.375 gram/Iso-osmotic 50 mL Premix IVPB: 50 mL IntraVenous Piggyback Every 8 Hours 8. Potassium Chloride Extended Release: 20 mEq Oral Daily PRN Medications -------- 1. Acetaminophen: 650 mg Oral Every 4 Hours 2. Dextrose 50% in Water Injectable: 25 gram(s) IntraVenous Push Every 15 Minutes 3. Docusate: 100 mg Oral 2 Times a Day 4. Glucagon Injectable: 1 mg IntraMuscular Every 15 Minutes 5. oxyCODONE 5 mg - Acetaminophen 325 m.5 tablet(s) Oral Every 6 Hours 6. Sodium Chloride 0.9% Injectable Flush: 1.5 mL IntraVenous Flush Every 8 Hours and as Needed Recent Lab Results: Results: I have reviewed these laboratory results: Complete Blood Count 08-Nov-2018 06:40:00 ResultValue White Blood Cell Count 5.7 Nucleated Erythrocyte Count 0.0 Red Blood Cell Count 4.04 HGB 9.2 L HCT 32.7 L MCV 81 MCHC 28.1 L PLT 252 RDW-CV 16.0 H Basic Metabolic Panel 08-Nov-2018 06:40:00 ResultValue Glucose, Serum 106 H NA 138 K 4.0 CL 106 Bicarbonate, Serum 27 Anion Gap, Serum 9 L BUN 10 CREAT 0.88 GFR-Non >60 GFR- >60 Calcium, Serum 7.9 L Hemoglobin A1C, Level 08-Nov-2018 06:40:00 ResultValue Estimated Average Glucose 137 Hemoglobin A1C, Level 6.4 Diagnosis of Diabetes-Adults Non-Diabetic: < or = 5.6% Increased risk for developing diabetes: 5.7-6.4% Diagnostic of diabetes: > or = 6.5% . Monitoring of Diabetes Age (y) Therapeutic Goal (%) Adults: >1 Assessment: 1. Advanced lymphedema both lower extremities 2. Open wound, posterior left leg with bacterial colonization 3. Super morbid obesity Plan: 1. Wound management is discussed today with the wound nurse 2. Leg elevation is advised but unsure cannot be accomplished 3. For now we'll continue Zosyn with a goal to decrease wound colonization. Only a brief course of antibiotics will be administered. 4. I did see the dietitian talking to this patient about weight loss Electronic Signatures: Marquita Quinones) (Signed 12-Nov-2018 19:39) Authored: Service, History of Present Illness, Review Family/Social History and ROS, Allergies, Objective, Assessment/Recommendatio ns, Signature/Cosignature/At testation Last Updated: 12-Nov-2018 19:39 by Marquita Quinones) [facility] [place] Consult-Wound Careon 019 Consult-Wound Care Service: Service: Wound Care Consult: Consult requested by (Attending Name): Dr Elizabeth Reason: Lymphedema groin wounds History of Present Illness: HPI: This is a 37-year-old female, who has a known past medical history of diabetes mellitus type 2, hypertension, pulmonary embolism, bipolar disorder, anxiety disorder, high-grade headaches, morbid obesity, chronic anemia, who presented to the ER at [facility], with complaints of bilateral lower extremity pain, fever, chills, and nausea. Workup in the ER showed patient's lateral lower extremities to be edematous, as well as erythematous, with foul-smelling drainage noted in the tibial area of the left lower extremity, as well as the left-sided groin area. The patient was diagnosed with bilateral lower extremity cellulitis, however not admitted to [facility], but in stead transferred to this institution, due to extreme morbid obesity per [facility] ER physician. While in the [facility] ER the patient received Zosyn for her lower extremity cellulitis. Wound service on consult for Lymphedema and groin wounds Comorbidities: Comorbid Conditionsdiabetes, hypertension Diabtetes Typeunknown Insulin Dependentunknown DM Acuity or Statusunknown DM Complicationsnone Social History: Social History: Smoking Statusnever smoker Alcohol Usedenies Drug Usedenies Allergies: Darvocet A500: Hives/Urticaria Review Family/Social History and ROS: Constitutional: POSITIVE: Fever, Chills; NEGATIVE: Anorexia, Weight Loss, Malaise Eyes: NEGATIVE: Blurry Vision, Drainage, Diploplia, Redness, Vision Loss/ Change ENMT: NEGATIVE: Nasal Discharge, Nasal Congestion, Ear Pain, Mouth Pain, Throat Pain Respiratory: POSITIVE: Wheezing, Shortness of Breath; NEGATIVE: Dry Cough, Productive Cough, Hemoptysis Cardiac: POSITIVE: Dyspnea on Exertion, Palpitations; NEGATIVE: Chest Pain, Orthopnea, Syncope Gastrointestinal: POSITIVE: Nausea; NEGATIVE: Vomiting, Diarrhea, Constipation, Abdominal Pain Musculoskeletal: POSITIVE: Pain, Swelling; NEGATIVE: Decreased ROM, Stiffness, Weakness Neurological: NEGATIVE: Dizziness, Confusion, Headache, Seizures, Syncope Psychiatric: NEGATIVE: Mood Changes, Anxiety, Hallucinations, Sleep Changes, Suicidal Ideas Skin: POSITIVE: Pain, Rash, Ulcer; NEGATIVE: Mass, Pruritus Endocrine: NEGATIVE: Heat Intolerance, Cold Intolerance, Sweat, Polyuria, Thirst Hematologic/Lymph: POSITIVE: Anemia; NEGATIVE: Bruising, Easy Bleeding, Night Sweats, Petechiae Allergic/Immunologic: NEGATIVE: Anaphylaxis, Itchy/ Teary Eyes, Itching, Sneezing, Swelling Allergies: Darvocet A500: Hives/Urticaria Objective: Objective Information: T PRBPSpO2 [id number]/6293% Date/Time11/08 8: 8: 8: 8: 8:19 Range(36.6C - 37.4C ) (85 - 99 ) (16 - 20 ) (122 - 132 )/ (58 - 62 ) (93% - 93% ) Highest temp of 37.4 C was recorded at 11/07 20:00 Pain reported at 11/08 3:20: sleeping Pain reported at 11/08 9:32: 0 = None Weights 11/08 14:13: BMI (kg/m2) (BMI (kg/m2)) 75.093 11/08 6:19: Weight in kg (Weight (kg)) 230.5 11/08 6:19: Weight in lbs ((lbs)) 508.1 Physical Exam: Constitutional: Morbid obesity. Alert and oriented 4. Pleasant and cooperative. Musculoskeletal: Difficulty with ambulation related to weight and lymphedema Extremities: Bilateral lower extremity stage III lymphedema Wound on the left posterior lower leg Neurological: alert and oriented x3 Lymphatic: Bilateral lower extremity lymphedema Psychological: Appropriate mood and behavior Skin: Bilateral groins with fungal rash and partial-thickness split skin linear. No drainage. Mild odor large abdominal pannus folds Bilateral lower extremities with stage III lymphedema and cobblestone appearance on the legs. Painful wound on the left posterior lower leg. The area is moist with partial-thickness wounds most likely due to edema, rubbing and edema Medications: Medications: Continuous Medications -------- No continuous medications are active Scheduled Medications -------- 1. Apixaban: 5 mg Oral Every 12 Hours 2. Ferrous Sulfate: 325 mg Oral Daily 3. Furosemide: 40 mg Oral 2 Times a Day 4. Insulin Lispro Mild Corrective Scale: unit(s) SubCutaneous 4 Times a Day 5. Lactobacillus: 1 capsule(s) Oral Daily 6. Metoprolol Tartrate: 25 mg Oral Every 12 Hours 7. Piperacillin - Tazobactam 3.375 gram/Iso-osmotic 50 mL Premix IVPB: 50 mL IntraVenous Piggyback Every 8 Hours 8. Potassium Chloride Extended Release: 20 mEq Oral Daily PRN Medications -------- 1. Acetaminophen: 650 mg Oral Every 4 Hours 2. Dextrose 50% in Water Injectable: 25 gram(s) IntraVenous Push Every 15 Minutes 3. Docusate: 100 mg Oral 2 Times a Day 4. Glucagon Injectable: 1 mg IntraMuscular Every 15 Minutes 5. oxyCODONE 5 mg - Acetaminophen 325 m.5 tablet(s) Oral Every 6 Hours 6. Sodium Chloride 0.9% Injectable Flush: 1.5 mL IntraVenous Flush Every 8 Hours and as Needed Recent Lab Results: Results: I have reviewed these laboratory results: Complete Blood Count 08-Nov-2018 06:40:00 ResultValue White Blood Cell Count 5.7 Nucleated Erythrocyte Count 0.0 Red Blood Cell Count 4.04 HGB 9.2 L HCT 32.7 L MCV 81 MCHC 28.1 L PLT 252 RDW-CV 16.0 H Basic Metabolic Panel 08-Nov-2018 06:40:00 ResultValue Glucose, Serum 106 H NA 138 K 4.0 CL 106 Bicarbonate, Serum 27 Anion Gap, Serum 9 L BUN 10 CREAT 0.88 GFR-Non >60 GFR- >60 Calcium, Serum 7.9 L Assessment: 37-year-old female with morbid obesity and bilateral lower extremity stage III lymphedema.. She came to the ED DC to [facility] to ours with complaints of lower extremity pain fever chills and nausea. The patient has a large pannus and in her right and left groin areas there is a fungal rash with partial-thickness splitting of the skin related to moisture, obesity, and immobility. There is some concern for lower extremity cellulitis with infectious disease on consult. Not convinced that she has cellulitis. Bilateral lower extremities with stage III lymphedema and cobbling of skin. On the left posterior lower leg is a partial-thickness wound that is related to moisture, lymphedema. This one is painful. Patient does complain of itching. Problem/Assessment/Plan: Impression 1: Bilateral groin fungal rash with partial-thickness open skin related to moisture and obesity Plan for Impression 1: Apply intra-dry wicking sheets changes needed Impression 2: Left lower posterior leg with partial-thickness wound chronic Plan for Impression 2: Wrapped the leg with intra-dry wicking sheets to remove the moisture which is contributing to the wound Impression 3: Extreme morbid obesity Plan for Impression 3: Nutrition on consult Impression 4: Chronic stage III bilateral lower extremity lymphedema Plan for Impression 4: Patient has been referred to lymphedema clinic Electronic Signatures: Aurora Ross (SHIRT LINE OPERATOR-DECK SUPERVISOR) (Signed 10-Nov-2018 13:21) Authored: Service, History of Present Illness, Review Family/Social History and ROS, Allergies, Objective, Assessment/Recommendatio ns, Signature/Cosignature/At testation Last Updated: 10-Nov-2018 13:21 by Aurora Ross (SHIRT LINE OPERATOR-DECK SUPERVISOR) Normal [facility] Daily Progress Note-Medicine on 11-08-2018 Daily Progress Note-Medicine Service: Medicine Subjective Data: LISA PINTO is a 37 year old Female who is Hospital Day # 2. Additional Information: The patient states that she feels slightly better than on admission, but continues to have pain in the lower extremities, especially at night. She also complained of mild nausea in the early afternoon hours, but does not relate the nausea to any of the medications. With respect to physical examination, perhaps because the patient is sitting up in chair, the lungs have no further abnormal findings, i.e. there is no wheezing appreciated today. The heart has regular rhythm, there is no murmur. Abdomen is soft nontender, bowel sounds are normoactive. Lower extremities show no major improvement as compared to yesterday. Plan: We will increase the Percocet for better pain control. Since hemoglobin A1c is 6.4, we will continue following the Accu-Cheks, but once there is no further nausea, we will discuss the addition of metformin to her medication regimen. Objective Data: Objective Information: T PRBPSpO2 [id number]/6293% Date/Time11/08 8: 8: 8: 8: 8:19 Range(36.6C - 37.4C ) (85 - 99 ) (16 - 20 ) (122 - 132 )/ (58 - 62 ) (93% - 97% ) Highest temp of 37.4 C was recorded at 11/07 20:00 Pain reported at 11/08 3:20: sleeping Pain reported at 11/08 9:32: 0 = None Electronic Signatures: Tank Elizabeth) (Signed 08-Nov-2018 15:11) Authored: Service, Subjective Data, Objective Data, Signature/Cosignature/At testation Last Updated: 08-Nov-2018 15:11 by Tank Elizabeth) [facility] Discharge [id number] Discharge Profile2 Discharge Orders: Anticipated Discharge Date: Anticipated Discharge [id number] Hospital Course (Home Care/Gold Form): Hospital Course: Hospital Course: include significant abnormal lab values The patient was admitted to the hospital and after initial evaluation in the ER with a diagnosis of bilateral lower extremity cellulitis. The lower extremities and only showed hypertrophic skin changes bilaterally, but actually on admission were weeping yellowish foul-smelling but clear material. The patient was seen by a infectious disease data processing systems consultant and placed on antibiotics which led to improvement in the erythematous anterior bilateral tibial areas. During her stay on the regular floor, the patient was retested for diabetes mellitus type 2. The hemoglobin A1c was 6.5. Glucose monitoring was initiated but then discontinued, due to low glucose values. Also discussed with the patient was in need to consider metformin for preventing progression of diabetes mellitus, with which she had been treated previously. According to the patient was discontinued due to good hemoglobin A1c values. One day prior discharge, the patient developed a severe itching sensation in the left the patient also experienced lower extremity, which then improved with hydrocortisone. Other complaints on the regular floor included migraine headache, which responded to Percocet administered, as well as recurrent nausea episodes in the afternoon hours, which were treated with Compazine. Her blood cultures remained negative, so that with her obvious improvement the patient was discharged back home in good condition. Provider FINAL REVIEW of Orders: Final Review: Final Review of Medication Reconciliation and Orders Completedby Physician Reviewing Matti Elizabeth MD at 10-Nov-2018 15:03:24 Appointments: Follow-Up Appointment 01: Physician/Dept/Bhavik umaña PCP Reason for Referralpost hospital follow up Call to Schedule in1 week Other Clinician Instructions: Other Instructions: Occupational Therapy InstructionsOT outpatient for chronic Lymphedema therapy eval and treat Electronic Signatures: Tank Elizabeth) (Signed 10-Nov-2018 15:03) Authored: Discharge Orders, Hospital Course (Home Care/Gold Form), Provider FINAL REVIEW of Orders, Appointments Aurora Ross (SHIRT LINE OPERATOR-DECK SUPERVISOR) (Signed 08-Nov-2018 17:01) Authored: Other Clinician Instructions, Gold Form - Seating And Mobility Technologist Summary Last Updated: 10-Nov-2018 15:03 by Tank Elizabeth) Normal [facility] GLUCOSE-POCTon 11-08-2018 Glucose [Mass/Vol] 125 mg/dL High 74 - 99 [facility] Comment on above: Performed By: #### G LILLIANA ####[id number] [place] [address] Glucose [Mass/Vol] 104 mg/dL High 74 - 99 [facility] Comment on above: Performed By: #### G LILLIANA ####[id number] [place] [address] Glucose [Mass/Vol] 105 mg/dL High 74 - 99 [facility] Comment on above: Performed By: #### G LILLIANA ####[address] [address] Glucose [Mass/Vol] 100 mg/dL High 74 - 99 [facility] Comment on above: Performed By: #### G LILLIANA ####[address] [address] HEMOGLOBIN A1Con 11-08-2018 HbA1c (Bld) [Mass fraction] 137 MG/DL Normal [facility] Comment on above: Performed By: #### H BA1E ####[address] [address] HbA1c (Bld) [Mass fraction] 6.4 % Normal [facility] Comment on above: Result Comment: Diag nosis of Diabetes-Adults Non-Diabetic: < or = 5.6% Increased risk for developing diabetes: 5.7-6.4% Diagnostic of diabetes: > or = 6.5% . Monitoring of Diabetes Age (y) Therapeutic Goal (%) Adults: >18 <7.0 Pediatrics: 13-18 <7.5 7-12 <8.0 0- 6 7.5-8.5 [place] [employer]. Diabetes Care 33(S1), May 2009. Performed By: #### H BA1E ####[address] [address] Nutrition Therapy-Assessment on 11-08-2018 Nutrition Therapy-Assessment Assessment Subjective/Objective: Note Type: Assessment Note Authored by: Registered Dietitian Tow Boat Captain Pager Number: [phone] Nutrition Note: The patient is a 37 year old Female admitted with cellulitis. Pt is a morbidly obese female with hx of DM2, HTN, PE, bipolar disorder, anxiety and chronic anemia. Pt reports hospitalized in 06/2018 and went into kidney failure after receiving Vanco. States she required dialysis for a short time. Pt reports she has an appt next week with the bariatric people at [facility] to discuss weight management options. Objective Information: T PRBPSpO2 [id number]/6293% Date/Time11/08 8: 8: 8: 8: 8:19 Range(36.6C - 37.4C ) (85 - 99 ) (16 - 20 ) (122 - 166 )/ (58 - 77 ) (93% - 97% ) Highest temp of 37.4 C was recorded at 11/07 20:00 Pain reported at 11/08 3:20: sleeping Pain reported at 11/08 9:32: 0 = None Height/Weight: Height in cm: 175.2 centimeter(s) Weight (kg): 230.5 BMI (kg/m2): 75.093 square meter Significant Weight Change: no Recent Lab Results: Results: I have reviewed these laboratory results: Glucose_POCT Trending View [id number] 12:18:00 08-Nov-2018 08:06:00 07-Nov-2018 21:25:00 07-Nov-2018 18:28:00 Glucose-[id number] H 100 H 140 H 109 H Basic Metabolic Panel 08-Nov-2018 06:40:00 ResultValue Glucose, Serum 106 H NA 138 K 4.0 CL 106 Bicarbonate, Serum 27 Anion Gap, Serum 9 L BUN 10 CREAT 0.88 GFR-Non >60 GFR- >60 Calcium, Serum 7.9 L Hemoglobin A1C, Level 08-Nov-2018 06:40:00 ResultValue Estimated Average Glucose 137 Hemoglobin A1C, Level 6.4 Diagnosis of Diabetes-Adults Non-Diabetic: < or = 5.6% Increased risk for developing diabetes: 5.7-6.4% Diagnostic of diabetes: > or = 6.5% . Monitoring of Diabetes Age (y) Therapeutic Goal (%) Adults: >1 Nutrition Labs: Special Chemistry: 08-Nov-2018 06:40, Hemoglobin A1C, Level Hemoglobin A1C, Level 6.4 Diagnosis of Diabetes-Adults Non-Diabetic: < or = 5.6% Increased risk for developing diabetes: 5.7-6.4% Diagnostic of diabetes: > or = 6.5% . Monitoring of Diabetes Age (y) Therapeutic Goal (%) Adults: >18 <7.0 Pediatrics: 13-18 <7.5 7-12 <8.0 0- 6 7.5-8.5 [place] [employer]. Diabetes Care 33(S1), May 2009. Current Active Medications/PN: Lactobacillus, Capsule (BACID) DOSE = 1 capsule(s) Oral Daily, 07-Nov-2018 Piperacillin - Tazobactam 3.375 gram/Iso-osmotic 50 mL Premix IVPB, (ZOSYN) Every 8 Hours Recommended Infusion Time: 4 hour(s) Notes from Pharmacy: Zosyn 4 Hour Infusion, 07-Nov-2018 Apixaban, Tablet (ELIQUIS) DOSE = 5 mg Oral Every 12 Hours, 07-Nov-2018 Metoprolol Tartrate, Tablet (LOPRESSOR) DOSE = 25 mg Oral Every 12 Hours, 07-Nov-2018 Docusate, Capsule (COLACE) DOSE = 100 mg Oral 2 Times a Day, PRN Constipation, 07-Nov-2018 Ferrous Sulfate, Tablet (FEOSOL) DOSE = 325 mg Oral Daily, 07-Nov-2018 Furosemide, Tablet (LASIX) DOSE = 40 mg Oral 2 Times a Day, 07-Nov-2018 oxyCODONE 5 mg - Acetaminophen 325 mg, Tablet (PERCOCET) DOSE = 0.5 tablet(s) Oral Every 6 Hours, PRN Pain - Severe (7-10) Ca.5 tablet(s)/DOSE x 1 = 0.5 tablet(s)/Dose (Requested dose was 0.5 tablet(s) per Flat Dose) (Daily Total is 2 tablet(s)) Clinician Notes: PERCOCET FOR PAIN, 07-Nov-2018 Food/Nutrition Related History: Change in Oral Intake/Appetite: no change GI Symptoms: nausea, Pt believes secondary to the ATB Time Frame for GI Symptoms Greater Than 2 Weeks: no Oral Problems: denies Food Allergies Comment: NKFA Food/Nutrition Related History: Pt reports often skips breakfast and often won' t eat till 5 or 6:00. States typical dinner may be beans, rice and tortillas, a salad with many vegetables, turkey or ham, no dressing but puts on some cottage cheese. Nutrition Focused Physical Findings: Physical Findings: deferred Nutrition Diagnosis: Dx: Overweight/obesity. related to dietary habits and lifestyle as evidenced by BMI of 75. Nutrition Interventions: Individualized Nutrition Prescription Provided for: diet Diet Education: Healthy Diabetic Eating Diet Education Provided: Create a Healthful Plate for Diabetes My Food Plan Coordination of Care with: RN Nutrition Goals: Goals: Nutrition Therapy: oral intake greater than 50%, adequate po fluid intake, Blood Glucose 80-180 mg/dl, lab values within normal limits, gradual weight loss Outcomes Summary: Nutrition Therapy Outcome Summary: Nutritional Therapy: Morbid obesity with multiple co morbidities Nutrition Therapy Recommendations: Nutrition Therapy Recommendations: Reviewed healthy eating patterns to promote glycemic control and weight management Dietitian Monitoring and Evaluation Plan: Monitoring and Evaluation Plan: po intake and tolerance, weight trend Diet Education: Nutrition Education: Basic Carb counting using Create a Plate for Diabetes and My Food Plan Education Provided to: patient Understanding of Diet: good Anticipated Compliance: fair Follow up: contact info to clinical nutrition provided. Pt voices intent keep appt with [facility] bariatric program next week Time Spent (minutes): 60 Nutrition Support: yes Electronic Signatures: Karen Castro (TEZ, NIMA) (Signed 08-Nov-2018 14:37) Authored: Assessment Subjective/Objective, Nutrition Focused Physical Findings, Nutrition Diagnosis, Nutrition Interventions, Nutrition Goals, Nutrition Recommendations, Dietitian Monitoring and Evaluation Plan, Diet Education, Time Spent/Nutrition Support Last Updated: 08-Nov-2018 14:37 by Karen Castro (TEZ, NIMA) Normal [facility] Admission Risk Screen - Adul ton 11-07-2018 Admission Risk Screen - Adult Allergies: Allergies: Darvocet A500: Hives/Urticaria Patient Verification: New W ID Band Applied in my Departmentyes Patient Identity Verified Bypatient ID Band FULL Name, include Middle, spelling matches patient's ID used for verificationyes ID Band Matches Patient ID used for Verficationyes ID Band MRN Matches EMR MRNyes Advance Directive: Advance Directive Medicalno Advance Directive Information Givenpatient/family declined Falls Screen: Type of Assessmentadmission Moderate Risk Factorsdizziness/syncope Risk for Injury Associated with Fallcoagulation blood thinners (Coumadin, heparin gtt), coagulopathy Fall Risk Conclusionmoderate falls risk with risk for associated injury Zebulon Safety InterventionsWDL *orient to call system *instruct to call for assistance before getting out of bed *non-slip footwear when patient is out of bed *call lui in reach *personal items and telephone in reach *physically safe environment (no spills or clutter) *bed in lowest position with wheels locked *appropriate side rails in place *room/bathroom lighting operational, light cord in reach *appropriate signage on door Family Violence Screen: Are you or have you been threatened or abused physically, emotionally, or sexually by anyoneno Do you feel UNSAFE going back to the place where you are livingno Clinical assessment: Are there any apparent signs of injuries/behaviors that could be related to abuse/neglectno Social Service Consult for abuse/neglect needed this visitno Functional screen: Functional Screen: In the recent/past 2-4 weeks, patient or family have noticedno issues that require a rehabilitation consult at this time Learning Assessment (Patient): Patient is Able to be Assessed for Learningyes Factors Influencing Readiness to Learnpain Factors that Impact Ability to Learnphysical limitations Devices/Methods Used to Communicatenone Learning Preferencespictorial Cultural Considerationsnone Developmental Considerationsnone Sikh ConsiderationsCATHOLIC Learning Assessment (Other Learner): Other learner availableno Suicide/Depression Screen: During the past month, have you often been bothered by feeling down, depressed or hopelessno During the past month, have you often had little interest or pleasure in doing thingsno Have you had any thoughts of harming yourselfno Have you had any thoughts of harming anyone elseno Adult Nutrition Screen: Have you recently lost weight without tryingno Have you been eating poorly because of a decreased appetiteno Malnutrition Screening Tool Score0 Malnutrition Screening Tool RiskMST = 0 or 1 Not at risk. Eating well with little or no weight loss Nutrition Consult needed this visitno Can Patient Participate in Room Serviceyes Patient requires Paper Dishes/Plastic Utensilsno Pain Screen: Pain Scalenumerical 0-10 Pain Scale Educationteaching provided Current Pain Level10 = Severe Acceptable Pain Level4 = Moderate Expression of Pain (nonverbal)verbalization Chronic Painyes Chronic Lower Extremity pain locationleft, leg Spiritual Screen: Are there any cultural, spiritual, episcopal practices/values/needs that are important for us to knowno Do you want a visit/item from Pastoral Ca[facility]o Would you like your Vegetable Grower/Associate Partner notifiedno CAGE: Is this an injured patient at a Trauma Center ([facility]/[place] /[place]): no Vaccinations: Vaccination - Influenza Vaccination Screen: Is it flu season (between and September 05)No Vaccination - Pneumonia Vaccination Screen: Patient has received a previous pneumonia vaccine:no/unknown... Immunocompetent persons with underlying chronic conditions or reside in [place] [facility] care facilitiesnone of these conditions Persons with Functional or Anatomic Asplenianone of these conditions Immunocompromised Personsnone of these conditions Pneumonia vaccine NOT indicated due to:patient DOES NOT have a condition that indicates vaccination Sina: Skin - Sina Scale: Sina: Sensory Perception (response to environment)(4) no impairment Sina: Moisture (degree skin exposed to moisture)(3) occasionally moist Sina: Activity (ability to walk)(2) chairfast Sina: Mobility (amount/control of body movement)(2) very limited Sina: Nutrition (quality of food intake)(2) probably inadequate Sina: Friction and Shear(2) potential problem Isna: Score15 Skin Intervention Orders (Nursing orders will be generated)elevate heels, up in chair < 1 hr intervals, turn side to side every 2 hrs, assess for therapeutic equipment, assess pressure points, hygiene care, toilet/ADL every 2 hrs awake, toilet/ADL every 4 hrs asleep, educate prevent/treat pressure ulcer Significant Indicatiors: Significant Indicators: Complete Pressure Injury: Pressure Injury Present on Admissionno Electronic Signatures: Luci Cochran (RN) (Signed 07-Nov-2018 15:27) Authored: Admission Risk Screens, Vaccinations, Sina, Pressure Injury Last Updated: 07-Nov-2018 15:27 by Luci Cochran (RN) Normal [facility] BLOOD CULTURE, BACTERIALon 0 11-07-2018 BLOOD CULTURE, BACTERIAL PATIENT: LISA PINTO LOCATION: [address]#: [id number] : 80 AGE: SEX: F ORDERED BY: MARIZOL BISHOP SOURCE: Blood COLLECTED: 11/07/18 15:10 ANTIBIOTICS AT [place].: RECEIVED : 11/07/18 22:07 SITE: R E S U L T S BLOOD CULTURE, BACTERIAL FINAL 11/12/18 23:42 No Growth at 1 days No Growth at 2 days No Growth at 3 days No Growth at 4 days NO GROWTH - FINAL REPORT Normal [facility] Comment on above: Performed By: #### B LDC ####[id number] [place] [address] BLOOD CULTURE, BACTERIAL PATIENT: LISA PINTO LOCATION: [facility] Minoo RADER#: [id number] : 80 AGE: SEX: F ORDERED BY: MARIZOL BISHOP SOURCE: Blood COLLECTED: 11/07/18 15:10 ANTIBIOTICS AT [place].: RECEIVED : 11/07/18 22:05 SITE: R E S U L T S BLOOD CULTURE, BACTERIAL FINAL 11/12/18 23:42 No Growth at 1 days No Growth at 2 days No Growth at 3 days No Growth at 4 days NO GROWTH - FINAL REPORT Normal [facility] Comment on above: Performed By: #### B LDC ####[id number] [place] [address] Clinical Intervention - Edward doran 11-07-2018 Clinical Intervention - Pharmacy Pharmacist's Clinical Intervention: Is this intervention medication reconciliation related: Yes, HISTORY Electronic Signatures: Kellen Garner ([employer]) (Signed 07-Nov-2018 16:17) Authored: Pharmacist's Clinical Intervention Last Updated: 07-Nov-2018 16:17 by Kellen Garner ([employer]) [facility] Discharge Planning Noteon Discharge Planning Note Discharge Needs Assessment: Discharge Planning Assessment [id number] Discharge Planning Assessment Completed byPT ADMITTED TODAY FOR LLE CELLULITIS Readmission Within the Last 30 Daysno previous admission in last 30 days Primary Care PhysicianPT DENIES PCP Adult Information: Reason for Admission as Stated by PatientCELLULITIS OF L LEG. L LEG PAIN OB Information: Reason for admission this visitfetal demise/loss greater than 20 weeks Patient Learning: Factors that Impact Ability to Learnphysical limitations(1) Other Factors: Functional Screen: In the recent/past 2-4 weeks, patient or family have noticedno issues that require a rehabilitation consult at this time(2) Discharge Planning: Discharge Planning: PT TRANSFERRED HERE FROM [facility] FOR LLE CELLULITIS. ON IV ZOSYN FOR ANTIBIOTICS AT THIS TIME W/ CONSULT TO DR QUINONES FOR I.D. RECS. 11/08/18 1222 Care Transition Note: Patient from home with and child, independent with ADLs, denies use of assistive devices. PCP is Dr Rose in [place]. Patient takes all medications as prescribed. Address and primary contact confirmed, telephone number is [phone]. No discharge needs anticipated at this time. Alfie Durham RN, TCC Final Disposition/Discharge: Disposition/Discharge Information: Discharge/Transfer Information: Discharge/Transfer Date/[id number] 18:27 Discharged Accompanied Byfamily member Discharge ModeCardiac Chair Transportation Methodprivate car Valuables/Medications/Be longings Returnedyes Final DispositionHome Electronic Signatures: Yolanda Nichole (RN PRN) (Signed 10-Nov-2018 20:01) Authored: Final Disposition/Discharge Libia Dyson (STAFF N) (Signed 07-Nov-2018 17:05) Authored: Discharge Planning Note Alfie Durham (CN) (Signed 08-Nov-2018 12:25) Authored: Discharge Planning Note Last Updated: 10-Nov-2018 20:01 by Yolanda Nichole (RN PRN) References: 1. Data Referenced From 5. Education 11/07/2018 03:06 PM 2. Data Referenced From Admission Risk Screen - Adult 11/07/2018 03:06 PM Normal [facility] GLUCOSE-POCTon 11-07-2018 Glucose [Mass/Vol] 140 mg/dL High 74 - 99 [facility] Comment on above: Performed By: #### G LILLIANA #### [address] [address] Glucose [Mass/Vol] 109 mg/dL High 74 - 99 [facility] Comment on above: Performed By: #### G LILLIANA #### [address] [address] Glucose [Mass/Vol] 124 mg/dL High 74 - 99 [facility] Comment on above: Performed By: #### G LILLIANA #### [address] [address] History and Physicalon 11-07 History and Physical History of Present Illness: /Lactating: Are You no (1) Are You Currently Breastfeedingno (1) Admission Reason: bilateral leg cellulitis, left leg foul drainage, ulcerative groin lesions HPI: This is a 37-year-old female, who has a known past medical history of diabetes mellitus type 2, hypertension, pulmonary embolism, bipolar disorder, anxiety disorder, high-grade headaches, morbid obesity, chronic anemia, who presented to the ER at [facility], with complaints of bilateral lower extremity pain, fever, chills, and nausea. Workup in the ER showed patient's lateral lower extremities to be edematous, as well as erythematous, with foul-smelling drainage noted in the tibial area of the left lower extremity, as well as the left-sided groin area. The patient was diagnosed with bilateral lower extremity cellulitis, however not admitted to [facility], but in stead transferred to this institution, due to extreme morbid obesity per [facility] ER physician. While in the [facility] ER the patient received Zosyn for her lower extremity cellulitis. Comorbidities: Comorbid Conditionsdiabetes, hypertension Diabtetes Typeunknown Insulin Dependentunknown DM Acuity or Statusunknown DM Complicationsnone Social History: Social History: Smoking Statusnever smoker Alcohol Usedenies Drug Usedenies Allergies: Darvocet A500: Hives/Urticaria Medications Prior to Admission: apixaban 5 mg oral tablet: 5 milligram(s) orally 2 times a day ALPRAZolam 1 mg oral tablet: 1 milligram(s) orally 2 times a day ferrous sulfate: 1 tab(s) orally once a day Colace 100 mg oral capsule: 100 milligram(s) orally 2 times a day, As Needed sulfamethoxazole-trimeth oprim 800 mg-160 mg oral tablet: 1 tab(s) orally 2 times a day potassium chloride 20 mEq oral tablet, extended release: 20 milliequivalent(s) orally once a day Metoprolol Tartrate 25 mg oral tablet: 25 milligram(s) orally 2 times a day furosemide 40 mg oral tablet: 40 milligram(s) orally 2 times a day. Review of Systems: Constitutional: POSITIVE: Fever, Chills; NEGATIVE: Anorexia, Weight Loss, Malaise Eyes: NEGATIVE: Blurry Vision, Drainage, Diploplia, Redness, Vision Loss/ Change ENMT: NEGATIVE: Nasal Discharge, Nasal Congestion, Ear Pain, Mouth Pain, Throat Pain Respiratory: POSITIVE: Wheezing; NEGATIVE: Dry Cough, Productive Cough, Hemoptysis, Shortness of Breath; COMMENTS: since yesterday Cardiac: POSITIVE: Palpitations; NEGATIVE: Chest Pain, Dyspnea on Exertion, Orthopnea, Syncope Gastrointestinal: POSITIVE: Nausea; NEGATIVE: Vomiting, Diarrhea, Constipation, Abdominal Pain Genitourinary: NEGATIVE: Discharge, Dysuria, Flank Pain, Frequency, Hematuria Musculoskeletal: POSITIVE: Pain; NEGATIVE: Decreased ROM, Swelling, Stiffness, Weakness Neurological: NEGATIVE: Dizziness, Confusion, Headache, Seizures, Syncope Psychiatric: NEGATIVE: Mood Changes, Anxiety, Hallucinations, Sleep Changes, Suicidal Ideas Skin: POSITIVE: Pain, Rash; NEGATIVE: Mass, Pruritus, Ulcer Endocrine: NEGATIVE: Heat Intolerance, Cold Intolerance, Sweat, Polyuria, Thirst Hematologic/Lymph: POSITIVE: Anemia; NEGATIVE: Bruising, Easy Bleeding, Night Sweats, Petechiae Allergic/Immunologic: NEGATIVE: Anaphylaxis, Itchy/ Teary Eyes, Itching, Sneezing, Swelling Objective: Objective Information: Pain reported at 11/07 15:06: 0 = None Physical Exam: Constitutional: Morbidly obese, awake/alert/oriented x3, no distress, alert and cooperative Eyes: Nonicteric, noninjected, extraocular movement intact, PERRL ENMT: Nasal passageways are clear, mouth is without lesions, throat shows no erythema or postnasal drip. Head/Neck: The neck is supple, no thyroid megaly, no jugular venous distention. No lymphadenopathy Respiratory/Thorax: Lungs have wheezes, but no rhonchi or rales. Cardiovascular: Regular rhythm and no murmur appreciated Gastrointestinal: Soft, morbidly obese , normal active bowel sounds, Le's negative, no obvious organomegaly. Musculoskeletal: able to move all extremities on command. Neurological: cranial nerves II-12 grossly intact, no drift, no facial droop, no obvious paresis. Skin: Warm, dry, hypertropic skin changes noted in the lower extremities bilaterally, as described in H&P, his bilateral erythema and edema of the lower extremities, as well as ulcerative lesions in the left groin area. Medications: Medications: Continuous Medications -------- No continuous medications are active Scheduled Medications -------- 1. Apixaban: 5 mg Oral Every 12 Hours 2. Ferrous Sulfate: 325 mg Oral Daily 3. Furosemide: 40 mg Oral 2 Times a Day 4. Lactobacillus: 1 capsule(s) Oral Daily 5. Metoprolol Tartrate: 25 mg Oral Every 12 Hours 6. Piperacillin - Tazobactam 3.375 gram/Iso-osmotic 50 mL Premix IVPB: 50 mL IntraVenous Piggyback Every 8 Hours 7. Potassium Chloride Extended Release: 20 mEq Oral Daily PRN Medications -------- 1. Acetaminophen: 650 mg Oral Every 4 Hours 2. Docusate: 100 mg Oral 2 Times a Day 3. Sodium Chloride 0.9% Injectable Flush: 1.5 mL IntraVenous Flush Every 8 Hours and as Needed Signatures/Attestation/C ertification: ADM Certification: Attending Provider Inpatient Certification StatementI certify this patients need for inpatient care based on the above documentation including; the order to admit as inpatient, the anticipated length of stay, diagnosis, problem list and plan of care, and discharge plan. Admission Order - View OnlyCurrent Admission Order. Admit to Inpatient Adult Community Admitting Diagnosis, L03.90 Cellulitis , Attending Provider Tank Elizabeth Jessica Electronic Signatures: Tank Elizabeth) (Signed 07-Nov-2018 18:10) Authored: History of Present Illness, Comorbidities, Social History, Allergies, Medications Prior to Admission, Review of Systems, Objective, Signatures/Attestation/C ertification Last Updated: 07-Nov-2018 18:10 by Tank Elizabeth) References: 1. Data Referenced From Patient Profile - Adult v2 11/07/2018 02:54 PM Normal [facility] Patient Profile - Adult v2on 11-07-2018 Patient Profile - Adult v2 Profile: Initial Info: How to be AddressedJULIE Spoken Language PreferredEnglish Source of Informationpatient Are you currently using the Personal Electronic Health Record or [employer] Stated Reason for AdmissionCELLULITIS [facility] Patient Belongings Remaining with Patientcell phone/electronics Medications Brought to Hospitalno General Health: Weight in kg224.5 kilogram(s) Weight in bdo311 pound(s) Height in feet5 feet Height in inches9 inch(es) Height in cm175.2 centimeter(s) BMI (kg/m2)73.138 square meter Weight Methodstated Scale Typebed Height Methodstated [facility] Based Care: How would you like to participate in your care KHOI What is the number one concern for you during this hospitalization TO GET HEALTHY AND GET OUT OF HERE What is the most important thing we can do to support you during this hospitalization KHOI Is there anything we need to know to best care for you NO Substance: Current or Former Substance Use never: Cigarette/Tobacco, e-Cigarette/Vaping, Alcohol, Street Drugs Health Mgmt: Symptoms/Conditions Managed at [facility] Are You Currently Breastfeedingno Skin Managementnot managed Are You no Relationship/Environ: Primary Source of Support/Comfortchild(geoff ); significant other Lives Withspouse; dependent child(geoff) Living Arrangementsapartment Resource/Environmental Concernsnone Anticipated Transition [facility] Anticipated at Transitionnone Significant IndicatorsComplete Information Review: Allergies, Home Meds and Significant Events have been Reviewed and Verified with Patient/Familyyes Problem List: Admitting Dx: Cellulitis: Catalog Name: Cellulitis, unspecified Electronic Signatures: Luci Cochran) (Signed 07-Nov-2018 15:06) Authored: Profile, Additional Information Last Updated: 07-Nov-2018 15:06 by Luci Cochran) [facility] Bacterial susceptibility her el by Loretta 08-10-2018 Bacterial susceptibility panel by Minimum inhibitory concentration (SAI) ORDERED BY: JOSSE DUMONT SOURCE: Leg COLLECTED: 08/10/18 15:18 ANTIBIOTICS AT ROMAIN.: RECEIVED : 08/10/18 19:09 Gram Stain Direct FINAL 08/11/18 12:15 Rare WBC's No epithelial cells Many Gram positive cocci Rare Small Gram positive rods Culture, Wound Aerobic FINAL 08/13/18 11:15 Moderate growth Enterobacter cloacae complex Moderate growth Staph aureus MSSA E. cloacae complex S.aureus MSSA ANTIBIOTICS SAI Interp SAI Interp Amoxicillin/Clavulanate >=32 R Cefazolin >=64 R S Ceftriaxone <=1 S S Ciprofloxacin <=0.25 S Clindamycin 0.25 S Gentamicin <=1 S <=0.5 S Oxacillin <=0.25 S Trimethoprim/Sulfamethox azole <=20 S <=10 S S=SUSCEPTIBLE I=INTERMEDIATE R=RESISTANT Normal [facility] Comment on above: Performed By: #### 5 [id number] #### [facility] [address] [place] [id number] Culture, Wound Aerobicon Culture, Wound Aerobic ORDERED BY: JOSSE DMUONT SOURCE: Leg COLLECTED: 08/10/18 15:18 ANTIBIOTICS AT ROMAIN.: RECEIVED : 08/10/18 19:09 Gram Stain Direct FINAL 08/11/18 12:15 Rare WBC's No epithelial cells Many Gram positive cocci Rare Small Gram positive rods Culture, Wound Aerobic INTERIM 08/12/18 11:45 Moderate growth Gram negative anthony ID and sensitivity to follow Moderate growth Gram negative anthony ID and sensitivity to follow Moderate growth Staphylococcus aureus Sensitivity to follow Normal [facility] Comment on above: Performed By: #### C XWND #### [facility] [address] [place] [address] Hemoglobin A1con 07-21-2018 HbA1c (Bld) [Mass fraction] 5.8 % Normal 4.8-5.9 [facility] Vital Signs Date Time Vital Sign Value Performing Clinician Facility 02-20-2024 10:43-0400 Body height 180.3 cm Cezar Bragg DPM FACFAS Work Phone: [facility] 02-20-2024 10:43-0400 Body mass index (BMI) [Ratio] 35.98 kg/m2 Cezar Bragg DPM FACFAS Work Phone: [facility] 02-20-2024 10:43-0400 Body weight 117.03 kg Cezar Bragg DPM FACFAS Work Phone: [facility] 02-20-2024 10:43-0400 Diastolic blood pressure 76 mm[Hg] Cezar Bragg DPM FACFAS Work Phone: [facility] 02-20-2024 10:43-0400 Heart rate 80 /min Cezar Bragg DPM FACFAS Work Phone: [facility] 02-20-2024 10:43-0400 Systolic blood pressure 128 mm[Hg] Cezar Bragg DPM FACFAS Work Phone: [facility] 11-14-2023 00:28-0400 Body temperature 97.7 [degF] Jack Hector [facility] 11-14-2023 00:28-0400 Diastolic blood pressure 74 mm[Hg] Jack Hector [facility] 11-14-2023 00:28-0400 Heart rate 66 /min Jack Hector [facility] 11-14-2023 00:28-0400 Respiratory rate 18 /min Jack Hector [facility] 11-14-2023 00:28-0400 SaO2% (BldA) [Mass fraction] 99 % Jack Hector [facility] 11-14-2023 00:28-0400 Systolic blood pressure 114 mm[Hg] Jack Hector [facility] 10-13-2023 10:38-0400 Body temperature 97.52 [degF] [facility] 10-13-2023 10:38-0400 Diastolic blood pressure 65 mm[Hg] [facility] 10-13-2023 10:38-0400 Heart rate 74 /min [facility] 10-13-2023 10:38-0400 Mean blood pressure 76 mm[Hg] [facility] 10-13-2023 10:38-0400 Respiratory rate 16 /min [facility] 10-13-2023 10:38-0400 SaO2% (BldA) [Mass fraction] 97 % [facility] 10-13-2023 10:38-0400 Systolic blood pressure 99 mm[Hg] [facility] 06-07-2023 09:45-0500 Heart rate 75 /min [facility] 06-07-2023 09:45-0500 SaO2% (BldA) [Mass fraction] 97 % [facility] 06-07-2023 09:45-0500 Body temperature 97.52 [degF] [facility] 06-07-2023 09:44-0500 Diastolic blood pressure 77 mm[Hg] [facility] 06-07-2023 09:44-0500 Mean blood pressure 90 mm[Hg] [facility] 06-07-2023 09:44-0500 Systolic blood pressure 116 mm[Hg] Mino Asencio [facility] 06-07-2023 09:00-0500 Blood Pressure Location Minoyrn Asencio [facility] 06-07-2023 09:00-0500 Respiratory rate 16 /min [facility] 05-31-2023 10:52-0500 Body temperature 97.52 [degF] ARISTIDES CLOAK [facility] 05-31-2023 10:52-0500 Diastolic blood pressure 70 mm[Hg] ARISTIDES CLOAK [facility] 05-31-2023 10:52-0500 Heart rate 69 /min ARISTIDES CLOAK [facility] 05-31-2023 10:52-0500 Respiratory rate 16 /min ARISTIDES CLOAK [facility] 05-31-2023 10:52-0500 SaO2% (BldA) [Mass fraction] 100 % ARISTIDES CLOAK [facility] 05-31-2023 10:52-0500 Systolic blood pressure 108 mm[Hg] ARISTIDES CLOAK [facility] 05-31-2023 10:50-0500 Blood Pressure Location Mino Asencio [facility] 05-31-2023 10:50-0500 Body temperature 97.52 [degF] Minoyrn Asencio [facility] 05-31-2023 10:50-0500 Diastolic blood pressure 70 mm[Hg] Minoyrn Asencio [facility] 05-31-2023 10:50-0500 Heart rate 69 /min [facility] Luis M [facility] 05-31-2023 10:50-0500 Mean blood pressure 83 mm[Hg] Mino Asencio [facility] 05-31-2023 10:50-0500 Respiratory rate 16 /min [facility] 05-31-2023 10:50-0500 SaO2% (BldA) [Mass fraction] 100 % [facility] 05-31-2023 10:50-0500 Systolic blood pressure 108 mm[Hg] [facility] 05-24-2023 11:01-0500 Blood Pressure Location [facility] 05-24-2023 11:01-0500 Body temperature 97.34 [degF] [facility] 05-24-2023 11:01-0500 Diastolic blood pressure 73 mm[Hg] [facility] 05-24-2023 11:01-0500 Heart rate 69 /min [facility] 05-24-2023 11:01-0500 Mean blood pressure 85 mm[Hg] [facility] 05-24-2023 11:01-0500 Respiratory rate 16 /min [facility] 05-24-2023 11:01-0500 SaO2% (BldA) [Mass fraction] 100 % [facility] 05-24-2023 11:01-0500 Systolic blood pressure 110 mm[Hg] [facility] 04-20-2023 10:00-0500 Blood Pressure Location ARISTIDES CLOAK [facility] 04-20-2023 10:00-0500 Body temperature 97.88 [degF] ARISTIDES CLOAK [facility] 04-20-2023 10:00-0500 Diastolic blood pressure 75 mm[Hg] ARISTIDES CLOAK [facility] 04-20-2023 10:00-0500 Heart rate 73 /min ARISTIDES CLOAK [facility] 04-20-2023 10:00-0500 Mean blood pressure 87 mm[Hg] ARISTIDES CLOAK [facility] 04-20-2023 10:00-0500 Respiratory rate 18 /min ARISTIDES CLOAK [facility] 04-20-2023 10:00-0500 SaO2% (BldA) [Mass fraction] 97 % ARISTIDES CLOAK [facility] 04-20-2023 10:00-0500 Systolic blood pressure 111 mm[Hg] ARISTIDES CLOAK [facility] 04-07-2023 13:53-0500 Body temperature 97.7 [degF] [facility] 04-07-2023 13:53-0500 Diastolic blood pressure 75 mm[Hg] [facility] 04-07-2023 13:53-0500 Heart rate 79 /min [facility] 04-07-2023 13:53-0500 Mean blood pressure 87 mm[Hg] [facility] 04-07-2023 13:53-0500 Respiratory rate 20 /min [facility] 04-07-2023 13:53-0500 SaO2% (BldA) [Mass fraction] 94 % [facility] 04-07-2023 13:53-0500 Systolic blood pressure 112 mm[Hg] [facility] 03-16-2023 10:40-0500 Heart rate 60 /min ARISTIDES CLOAK [facility] 03-16-2023 10:40-0500 SaO2% (BldA) [Mass fraction] 99 % ARISTIDES CLOAK [facility] 03-16-2023 10:40-0500 Body temperature 97.7 [degF] ARISTIDES CLOAK [facility] 03-16-2023 10:39-0500 Respiratory rate 16 /min ARISTIDES CLOAK [facility] 03-16-2023 10:39-0500 Diastolic blood pressure 80 mm[Hg] ARISTIDES CLOAK [facility] 03-16-2023 10:39-0500 Mean blood pressure 94 mm[Hg] ARISTIDES CLOAK [facility] 03-16-2023 10:39-0500 Systolic blood pressure 121 mm[Hg] ARISTIDES CLOAK [facility] 01-04-2023 14:00-0400 Blood Pressure Location ARISTIDES CLOAK [facility] 01-04-2023 14:00-0400 Body temperature 97.7 [degF] ARISTIDES CLOAK [facility] 01-04-2023 14:00-0400 Diastolic blood pressure 77 mm[Hg] ARISTIDES CLOAK [facility] 01-04-2023 14:00-0400 Heart rate 75 /min ARISTIDES CLOAK [facility] 01-04-2023 14:00-0400 Mean blood pressure 92 mm[Hg] ARISTIDES CLOAK [facility] 01-04-2023 14:00-0400 Respiratory rate 16 /min ARISTIDES CLOAK [facility] 01-04-2023 14:00-0400 SaO2% (BldA) [Mass fraction] 96 % ARISTIDES CLOAK [facility] 01-04-2023 14:00-0400 Systolic blood pressure 121 mm[Hg] ARISTIDES CLOAK [facility] 12-21-2022 15:43-0400 Blood Pressure Location LYNDSAY BARAHONA [facility] 12-21-2022 15:43-0400 Body temperature 98.06 [degF] LYNDSAY SIDELL [facility] 12-21-2022 15:43-0400 Diastolic blood pressure 64 mm[Hg] LYNDSAY SIDELL [facility] 12-21-2022 15:43-0400 Heart rate 97 /min LYNDSAY SIDELL [facility] 12-21-2022 15:43-0400 Respiratory rate 16 /min LYNDSAY SIDELL [facility] 12-21-2022 15:43-0400 SaO2% (BldA) [Mass fraction] 95 % LYNDSAY SIDELL [facility] 12-21-2022 15:43-0400 Systolic blood pressure 108 mm[Hg] LYNDSAY SIDELL [facility] 12-17-2022 13:48-0400 [facility] 12-17-2022 13:48-0400 [facility] 12-17-2022 12:00-0400 [facility] 12-17-2022 12:00-0400 [facility] 12-17-2022 11:52-0400 [facility] 11:52-0400 [facility] 12-17-2022 11:39-0400 Heart rate 94 /min [facility] 12-17-2022 11:39-0400 SaO2% (BldA) [Mass fraction] 98 % [facility] 12-17-2022 11:35-0400 Body temperature 99.86 [degF] [facility] 12-17-2022 11:00-0400 Diastolic blood pressure 62 mm[Hg] [facility] 12-17-2022 11:00-0400 Mean blood pressure 72 mm[Hg] [facility]-17-2022 11:00-0400 Systolic blood pressure 92 mm[Hg] [facility]ied [facility] 12-17-2022 08:33-0400 Heart rate 98 /min [facility] 12-17-2022 08:33-0400 SaO2% (BldA) [Mass fraction] 94 % [facility] 12-17-2022 08:33-0400 Diastolic blood pressure 66 mm[Hg] [facility] 12-17-2022 08:33-0400 Mean blood pressure 78 mm[Hg] [facility] 12-17-2022 08:33-0400 Systolic blood pressure 102 mm[Hg] [facility] 12-17-2022 08:31-0400 Body temperature 100.4 [degF] [facility] 12-17-2022 06:08-0400 Body temperature 102.2 [degF] mariesally [facility] 12-17-2022 06:08-0400 Diastolic blood pressure 64 mm[Hg] [facility] 12-17-2022 06:08-0400 Heart rate 100 /min [facility] 12-17-2022 06:08-0400 Mean blood pressure 77 mm[Hg] [facility] 12-17-2022 06:08-0400 Respiratory rate 19 /min [facility] 12-17-2022 06:08-0400 SaO2% (BldA) [Mass fraction] 94 % [facility] 12-17-2022 06:08-0400 Systolic blood pressure 103 mm[Hg] mad [facility] 12-17-2022 04:01-0400 Body temperature 102.2 [degF] [facility] 12-17-2022 04:01-0400 Heart rate 101 /min [facility] 12-17-2022 04:01-0400 Mean blood pressure 78 mm[Hg] mad [facility] 12-17-2022 01:10-0400 Body temperature 99.5 [degF] mad [facility] 12-17-2022 01:10-0400 Heart rate 88 /min [facility] 12-16-2022 21:23-0400 Heart rate 96 /min [facility] 12-16-2022 21:23-0400 Mean blood pressure 83 mm[Hg] [facility] 12-16-2022 21:21-0400 Body temperature 100.76 [degF] mad [facility] 12-16-2022 13:21-0400 Blood Pressure Location [facility] 12-16-2022 13:21-0400 Respiratory rate 16 /min [facility] 12-16-2022 11:15-0400 Respiratory rate 16 /min mad [facility] 12-16-2022 10:48-0400 Respiratory rate 15 /min mad [facility] 12-16-2022 02:40-0400 gluc 117 mg/dL [facility] 12-16-2022 02:40-0400 gluc [facility] 12-16-2022 02:32-0400 Respiratory rate 20 /min [facility] 12-07-2022 14:00-0400 Blood Pressure Location ARITSIDES CLOAK [facility] 12-07-2022 14:00-0400 Body temperature 97.88 [degF] ARISTIDES CLOAK [facility] 12-07-2022 14:00-0400 Diastolic blood pressure 76 mm[Hg] ARISTIDES CLOAK [facility] 12-07-2022 14:00-0400 Heart rate 71 /min [facility]STID[facility] CLOAK [facility] 12-07-2022 14:00-0400 Mean blood pressure 90 mm[Hg] [facility]STID[facility] CLOAK [facility] 12-07-2022 14:00-0400 Respiratory rate 14 /min ARISTID[facility] CLOAK [facility] 12-07-2022 14:00-0400 SaO2% (BldA) [Mass fraction] 97 % [facility]STID[facility] CLOAK [facility] 12-07-2022 14:00-0400 Systolic blood pressure 119 mm[Hg] ARISTIDES CLOAK [facility] 11-08-2022 14:00-0400 Blood Pressure Location ARISTIDES CLOAK [facility] 11-08-2022 14:00-0400 Body temperature 97.88 [degF] [facility] CLOAK [facility] 11-08-2022 14:00-0400 Diastolic blood pressure 60 mm[Hg] [facility]STID[facility] CLOAK [facility] 11-08-2022 14:00-0400 Heart rate 78 /min [facility]STID[facility] CLOAK [facility] 11-08-2022 14:00-0400 Mean blood pressure 70 mm[Hg] ARISTID[facility] CLOAK [facility] 11-08-2022 14:00-0400 Respiratory rate 16 /min [facility] CLOAK [facility] 11-08-2022 14:00-0400 SaO2% (BldA) [Mass fraction] 96 % [facility]STID[facility] CLOAK [facility] 11-08-2022 14:00-0400 Systolic blood pressure 90 mm[Hg] ARISTIDES CLOAK [facility] 10-12-2022 14:00-0400 Body temperature 97.88 [degF] [facility]STIDES CLOAK [facility] 10-12-2022 14:00-0400 Diastolic blood pressure 58 mm[Hg] [facility]STIDES CLOAK [facility] 10-12-2022 14:00-0400 Heart rate 82 /min ARISTID[facility] CLOAK [facility] 10-12-2022 14:00-0400 Mean blood pressure 67 mm[Hg] ARISTIDES CLOAK [facility] 10-12-2022 14:00-0400 Respiratory rate 18 /min ARISTIDES CLOAK [facility] 10-12-2022 14:00-0400 SaO2% (BldA) [Mass fraction] 97 % [facility]STIDES CLOAK [facility] 10-12-2022 14:00-0400 Systolic blood pressure 86 mm[Hg] [facility]STID[facility] CLOAK [facility] 10-12-2022 08:20-0400 Blood Pressure Location ARISTIDES CLOAK [facility] 10-12-2022 08:20-0400 Body temperature 98.06 [degF] LYNDSAY SIDELL [facility] 10-12-2022 08:20-0400 Diastolic blood pressure 86 mm[Hg] LYNDSAY SIDELL [facility] 10-12-2022 08:20-0400 Heart rate 100 /min LYNDSAY SIDELL [facility] 10-12-2022 08:20-0400 SaO2% (BldA) [Mass fraction] 94 % LYNDSAY SIDELL [facility] 10-12-2022 08:20-0400 Systolic blood pressure 134 mm[Hg] LYNDSAY SIDELL [facility] 09-03-2022 14:03-0400 Diastolic blood pressure 82 mm[Hg] LYNDSAY SIDELL [facility] 09-03-2022 14:03-0400 Mean blood pressure 96 mm[Hg] LYNDSAY SIDELL [facility] 09-03-2022 14:03-0400 Systolic blood pressure 124 mm[Hg] LYNDSAY SIDELL [facility] 09-03-2022 13:45-0400 Blood Pressure Location LYNDSAY SIDELL [facility] 09-03-2022 13:45-0400 Body temperature 98.06 [degF] LYNDSAY SIDELL [facility] 09-03-2022 13:45-0400 Diastolic blood pressure 92 mm[Hg] LYNDSAY SIDELL [facility] 09-03-2022 13:45-0400 Heart rate 107 /min LYNDSAY SIDELL [facility] 09-03-2022 13:45-0400 SaO2% (BldA) [Mass fraction] 97 % LYNDSAY SIDELL [facility] 09-03-2022 13:45-0400 Systolic blood pressure 144 mm[Hg] LYNDSAY SIDELL [facility] 07-30-2022 11:42-0400 Blood Pressure Location LYNDSAY SIDELL [facility] 07-30-2022 11:42-0400 Body temperature 98.06 [degF] LYNDSAY SIDELL [facility] 07-30-2022 11:42-0400 Diastolic blood pressure 86 mm[Hg] LYNDSAY SIDELL [facility] 07-30-2022 11:42-0400 Heart rate 105 /min LYNDSAY SIDELL [facility] 07-30-2022 11:42-0400 SaO2% (BldA) [Mass fraction] 95 % LYNDSAY SIDELL [facility] 07-30-2022 11:42-0400 Systolic blood pressure 122 mm[Hg] LYNDSAY SIDELL [facility] 07-22-2022 00:57-0400 Diastolic blood pressure 65 mm[Hg] Jack Hector [facility] 07-22-2022 00:57-0400 Heart rate 82 /min Jack Hector [facility] 07-22-2022 00:57-0400 Mean blood pressure 78 mm[Hg] Jack Hector [facility] 07-22-2022 00:57-0400 SaO2% (BldA) [Mass fraction] 95 % Jack Hector [facility] 07-22-2022 00:57-0400 Systolic blood pressure 104 mm[Hg] Jack Hector [facility] 07-21-2022 20:12-0400 Body temperature 97.7 [degF] Jack Hector [facility] 07-21-2022 20:12-0400 Diastolic blood pressure 86 mm[Hg] Jack Hector [facility] 07-21-2022 20:12-0400 Heart rate 101 /min Jack Hector [facility] 07-21-2022 20:12-0400 Respiratory rate 15 /min Jack Hector [facility] 07-21-2022 20:12-0400 SaO2% (BldA) [Mass fraction] 100 % Jack Hector [facility] 07-21-2022 20:12-0400 Systolic blood pressure 132 mm[Hg] Jack Hector [facility] 06-21-2022 07:22-0500 Blood Pressure Location Marisol Gomezell [facility] 06-21-2022 07:22-0500 Body temperature 98.6 [degF] Marisol Bernard [facility] 06-21-2022 07:22-0500 Diastolic blood pressure 72 mm[Hg] Marisol Bernard [facility] 06-21-2022 07:22-0500 Heart rate 129 /min Marisol Bernard [facility] 06-21-2022 07:22-0500 SaO2% (BldA) [Mass fraction] 98 % Marisol Bernard [facility] 06-21-2022 07:22-0500 Systolic blood pressure 136 mm[Hg] Marisol Bernard [facility] 04-21-2022 14:11-0500 Blood Pressure Location Marisol Bernard [facility] 04-21-2022 14:11-0500 Body temperature 98.24 [degF] Marisol Bernard [facility] 04-21-2022 14:11-0500 Diastolic blood pressure 60 mm[Hg] Marisol Bernard [facility] 04-21-2022 14:11-0500 Heart rate 116 /min Marisol Bernard [facility] 04-21-2022 14:11-0500 SaO2% (BldA) [Mass fraction] 97 % Marisol Bernard [facility] 04-21-2022 14:11-0500 Systolic blood pressure 124 mm[Hg] Marisol Bernard [facility] 07-30-2021 10:15-0400 Body temperature 98.49 [degF] Cliff Sandra DPM Work Phone: [facility] 07-30-2021 10:15-0400 Diastolic blood pressure 74 mm[Hg] Cliff Sandra DPM Work Phone: [facility] 07-30-2021 10:15-0400 Heart rate 80 /min Cliff Sandra DPM Work Phone: [facility] 07-30-2021 10:15-0400 Respiratory rate 16 /min Cliff Sandra DPM Work Phone: [facility] 07-30-2021 10:15-0400 SaO2% (BldA) [Mass fraction] 98 % Cliff Sandra DPM Work Phone: [facility] 07-30-2021 10:15-0400 Systolic blood pressure 122 mm[Hg] Cliff Sandra DPM Work Phone: [facility] 04-23-2021 16:13-0500 Diastolic blood pressure 60 mm[Hg] Shayy Nielson MD Work Phone: [facility] 04-23-2021 16:13-0500 Heart rate 66 /min Shayy Nielson MD Work Phone: [facility] 04-23-2021 16:13-0500 Respiratory rate 14 /min Shayy Nielson MD Work Phone: [facility] 04-23-2021 16:13-0500 SaO2% (BldA) [Mass fraction] 97 % Shayy Nielson MD Work Phone: [facility] 04-23-2021 16:13-0500 Systolic blood pressure 109 mm[Hg] Shayy Nielson MD Work Phone: [facility] 04-23-2021 10:21-0500 Body height 180.3 cm Shayy Nielson MD Work Phone: [facility] 04-23-2021 10:21-0500 Body mass index (BMI) [Ratio] 58.44 kg/m2 Shayy Nielson MD Work Phone: [facility] 04-23-2021 10:21-0500 Body temperature 98.4 [degF] Shayy Nielson MD Work Phone: [facility] 04-23-2021 10:21-0500 Body weight 190.06 kg Shayy Nielson MD Work Phone: [facility] 03-19-2021 04:30-0500 Diastolic blood pressure 76 mm[Hg] [facility] 03-19-2021 04:30-0500 SaO2% (BldA) [Mass fraction] 97 % [facility] 03-19-2021 04:30-0500 Systolic blood pressure 119 mm[Hg] [facility] 03-19-2021 04:15-0500 Heart rate 71 /min [facility] 03-19-2021 04:15-0500 Respiratory rate 17 /min [facility] 03-19-2021 00:33-0500 Body height 180.3 cm [facility] 03-19-2021 00:33-0500 Body mass index (BMI) [Ratio] 59.69 kg/m2 [facility] 03-19-2021 00:33-0500 Body temperature 97.59 [degF] [facility] 03-19-2021 00:33-0500 Body weight 194.14 kg [facility] 04-29-2020 22:00-0500 Pulse (Heart Rate) 75 /min [facility] 04-29-2020 22:00-0500 Pulse Oximetry 100 % [facility] [place] 04-29-2020 22:00-0500 Respiratory Rate 17 /min [facility] [place] 04-29-2020 21:00-0500 Body Temperature 97.81 [degF] [facility] [place] 04-29-2020 21:00-0500 BP Diastolic 83 mm[Hg] [facility] [place] 04-29-2020 21:00-0500 BP Systolic 139 mm[Hg] [facility] [place] 04-28-2020 14:21-0500 Height 175.3 cm [facility] [place] 04-23-2020 03:37-0500 BMI (Body Mass Index) 61.28 kg/m2 [facility] 04-23-2020 03:37-0500 Body weight 188.24 kg [facility] [place] 12-21-2018 07:32-0400 Body Temperature 98.8 [degF] [facility] [place] 12-21-2018 07:32-0400 BP Diastolic 62 mm[facility]Hg[facility] [place] 12-21-2018 07:32-0400 BP Systolic 132 mm[Hg[facility] [place] 12-21-2018 07:32-0400 Pulse (Heart Rate) 76 /min Rajendra Paco [facility], [place] 12-21-2018 07:32-0400 Pulse Oximetry 96 % Rajendra Antonio [facility] , [place] 12-21-2018 07:32-0400 Respiratory Rate 18 /min Rajendra Valderrama [facility], [place] 12-19-2018 03:25-0400 BMI (Body Mass Index) 70.26 kg/m2 Rajendra Valderrama [facility], [place] 12-19-2018 03:25-040 Body weight 215.8 kg Rajendra Valderrama [facility] , [place] 12-19-2018 [id number] Height 175.3 cm [facility] [place] Encounters Encounter Date Encounter Type Care Provider Facility Start: 02-20-2024 End: 02-20-2024 Bamboo flowsheet Cezar D Dolce DPM FACFAS Work Phone: [facility] Start: 02-20-2024 End: 02-20-2024 Bamboo flowsheet Cezar D Dolce DPM FACFAS Work Phone: [facility] Start: 02-20-2024 End: 02-20-2024 Patient encounter procedure Cezar D Dolce DPM FACFAS Work Phone: [facility] Comment on above: Onychomycosis (Prima ry Dx); Type II diabetes mellitus with neurological manifestations (CMS/HCC); Pain in left toe(s); Pain in right toe(s) Start: 02-20-2024 End: 02-20-2024 ambulatory CEZAR D DOLCE Not Available Start: 11-18-2023 End: 11-18-2023 ambulatory CEZAR D DOLCE Not Available Start: 11-14-2023 End: 11-14-2023 Emergency department patient visit Jack Young [facility] Start: 10-13-2023 End: 10-13-2023 ambulatory Mino Asencio Facility:[facility] Start: 10-13-2023 End: 10-13-2023 Patient encounter procedure Mino Asencio [facility] Start: 10-07-2023 End: 10-07-2023 ambulatory Mino Asencio Facility:[facility] Start: 10-07-2023 End: 10-07-2023 Patient encounter procedure Mino Asencio [facility] Start: 08-26-2023 End: 08-26-2023 ambulatory CEZAR Sally BRAGG Not Available Start: 07-05-2023 End: 07-05-2023 ambulatory MIGNON CHILDRESS Facility:[facility] Start: 07-05-2023 End: 07-05-2023 Patient encounter procedure MIGNON GRACIEMODE [facility] Start: 06-28-2023 End: 06-29-2023 Pre-admission assessment ARISTIDES L CLOAK [facility] Start: 06-07-2023 End: 06-07-2023 ambulatory Mino Asencio Facility:[facility] Start: 06-07-2023 End: 06-07-2023 Patient encounter procedure Mino Asencio [facility] Start: 06-02-2023 End: 06-02-2023 ambulatory ARISTIDES L CLOAK Facility:[facility] Start: 05-31-2023 End: 05-31-2023 ambulatory Mino Asencio Facility:[facility] Start: 05-31-2023 End: 05-31-2023 Patient encounter procedure ARISTIDES L CLOAK [facility] Start: 05-24-2023 End: 05-24-2023 ambulatory Mino Asencio Facility:[facility] Start: 05-24-2023 End: 05-24-2023 Patient encounter procedure Mino Asencio [facility] Start: 05-24-2023 End: 05-24-2023 ambulatory CEZAR BRAGG Not Available Start: 04-20-2023 End: 04-20-2023 ambulatory ARISTIDES L CLOAK Facility:[facility] Start: 04-20-2023 End: 04-20-2023 Patient encounter procedure ARISTIDES L CLOAK [facility] Start: 04-18-2023 End: 04-18-2023 ambulatory DECK SUPERVISOR PASCUAL Sulma FORTINO Facility:[facility] Start: 04-18-2023 End: 04-18-2023 Patient encounter procedure PASCUAL Sulma FREITAS [facility] Start: 04-07-2023 End: 04-07-2023 ambulatory Mino Asencio Facility:[facility] Start: 04-07-2023 End: 04-07-2023 Patient encounter procedure Mino Asencio [facility] Start: 03-16-2023 End: 03-16-2023 ambulatory ARISTIDES BORJA Facility:[facility] Start: 03-16-2023 End: 03-16-2023 Patient encounter procedure ARISTIDES BORJA [facility] Start: 03-03-2023 ambulatory [facility] Start: 02-10-2023 End: 02-11-2023 ambulatory [facility] Start: 02-03-2023 ambulatory GISELA CHIN [facility] Start: 01-31-2023 End: 02-01-2023 ambulatory ARMINDA SEGAL [facility] Start: 01-19-2023 End: 01-28-2023 ambulatory JUSTIN Rica Susanna [facility] Start: 01-19-2023 End: 01-20-2023 Pre-admission assessment ARISTIDES BORJA [facility] Start: 01-04-2023 End: 01-04-2023 Lab Drop off MIGNON CHILDRESS [facility] Start: 01-04-2023 End: 01-04-2023 Patient encounter procedure ARISTIDES BORJA [facility] Start: 12-27-2022 End: 12-27-2022 Lab Drop off MIGNON CHILDRESS [facility] Start: 12-27-2022 End: 12-27-2022 Patient encounter procedure LYNDSAY BARAHONA [facility] Start: 12-21-2022 End: 12-21-2022 ambulatory Mignon Childress Facility:[facility] Start: 12-21-2022 End: 12-21-2022 ambulatory PHYSICIAN NO [facility] Work Phone: Start: 12-21-2022 End: 12-21-2022 Departed Referred PHYSICIAN NO [facility] [place] Work Phone: Start: 12-21-2022 End: 12-21-2022 Patient encounter procedure LYNDSAY BARAHONA [facility] Start: 12-20-2022 End: 12-20-2022 [facility] Start: 12-20-2022 End: 12-20-2022 Patient encounter procedure Dana Paris Clint [facility] Start: 12-16-2022 End: 12-17-2022 Observation Kassidy Sandoval [facility] Start: 12-14-2022 End: 12-14-2022 ambulatory PHYSICIAN NO FAMILY Facility:[facility] Start: 12-14-2022 End: 12-14-2022 ambulatory [facility] Work Phone: Start: 12-14-2022 End: 12-14-2022 Departed Referred [facility] [place] Work Phone: Start: 12-08-2022 End: 12-08-2022 ambulatory PHYSICIAN NO FAMILY [facility] Work Phone: Start: 12-08-2022 End: 12-08-2022 Departed Referred [facility] [place] Work Phone: Start: 12-07-2022 End: 12-07-2022 Patient encounter procedure ARISTIDES Galvin CLOAK [facility] Start: 11-08-2022 End: 11-08-2022 Patient encounter procedure ARISTIDES Galvin CLOAK [facility] Start: 10-12-2022 End: 10-12-2022 Patient encounter procedure ARISTIDES CHEEMAAK [facility] Start: 10-12-2022 End: 10-12-2022 Patient encounter procedure LYNDSAY W SIDELL [facility] Start: 10-12-2022 End: 10-12-2022 Preprocedural examination done LYNDSAY W SIDELL [facility] Start: 10-11-2022 End: 10-11-2022 Patient encounter procedure Cezar Bragg [facility] Start: 09-03-2022 End: 09-03-2022 Patient encounter procedure LYNDSAY W SIDELL [facility] Start: 07-30-2022 End: 07-30-2022 Lab Drop off LYNDSAY W SIDELL [facility] Start: 07-30-2022 End: 07-30-2022 Patient encounter procedure LYNDSAY BARAHONA [facility] [place] Start: 07-21-2022 End: 07-22-2022 Emergency department patient visit Jack Young [facility] Start: 07-15-2022 End: 07-15-2022 Patient encounter procedure MIGNON GRACIEMODE [facility] Start: 06-21-2022 End: 06-21-2022 Patient encounter procedure Marisol Bernard [facility] Start: 04-21-2022 End: 04-21-2022 Patient encounter procedure Marisol Bernard [facility] Start: 09-28-2021 End: 09-28-2021 Patient encounter procedure Marisol Bernard [facility] Start: 09-22-2021 Patient encounter procedure Rajinder Sofia APRN.MILLER APPRENTICE Work Phone: [facility] Start: 09-22-2021 Progress Note Rajinder HERMAN RN.MILLER APPRENTICE Work Phone: [facility] Start: 08-18-2021 Patient encounter procedure Mar Beck MD Work Phone: [facility] Start: 08-18-2021 Progress Note Mar Beck MD Work Phone: [facility] Techn[facility] Chief Start: 08-17-2021 End: 08-17-2021 Patient encounter procedure Gamal Yin PA-C Work Phone: Orthopaedics Comment on above: Pain in right hip (P rimary Dx) Start: 07-31-2021 Patient encounter procedure Jenny France PA-C Work Phone: [facility] Start: 07-31-2021 Progress Note Jenny France PA-C Work Phone: [facility] Start: 07-30-2021 Unlisted evaluation and management service Cliff Flores DPM Work Phone: [facility] 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 Start: 03-19-2021 End: 03-19-2021 Emergency department patient visit [facility] Comment on above: Chest pain, unspecif ied type (Primary Dx); Cough; Nausea Start: 07-23-2020 End: 07-24-2020 Unknown Ramsey Hoover Facility:[facility] Start: 07-23-2020 End: 07-24-2020 ambulatory MD MARIA ELENA SORENSEN Facility:[facility] Start: 04-21-2020 End: 04-30-2020 Evaluation and management of inpatient ELI LAMB [facility] Start: 04-21-2020 End: 04-30-2020 Evaluation and management of inpatient Eli Lamb Work Phone: [facility] Comment on above: Acute osteomyelitis of right pelvic region and thigh (HCC) (Primary Dx) Start: 12-08-2019 End: 12-10-2019 Evaluation and management of inpatient NONE LISTED REQUEST Facility:[facility] Start: 12-03-2019 Patient encounter procedure RAMÍREZ BONILLA Facility:[facility] Start: 11-22-2019 Patient encounter procedure FILIBERTO Siddiqi ANETTEGUERITA Facility:[facility] Start: 11-09-2019 End: 11-13-2019 Evaluation and management of inpatient CEZAR SIM Facility:[facility] Start: 11-06-2019 Patient encounter procedure SHAYY AREVALO Facility:[facility] Start: 10-27-2019 End: 10-29-2019 Patient encounter procedure DOCTOR PATRICIA Facility:[facility] Start: 10-25-2019 Patient encounter procedure CEZAR SIM Facility:[facility] Start: 08-30-2019 Encounter for genera l adult medical examination without abnormal findings [facility]AR [facility] Start: 08-29-2019 End: 08-30-2019 Patient encounter procedure CEZAR SIM Facility:[facility] Start: 12-18-2018 End: 12-21-2018 Evaluation and management of inpatient Rajendra Antonio Work Phone: [facility] Comment on above: Cellulitis of abdomi nal wall (Primary Dx); Leg pain, left Start: 08-29-2017 End: 08-30-2017 Ambulatory DEFAULT PHYSICIAN Facility:[facility] Encounter for genera l adult medical examination without abnormal findings CEZAR SIM [facility] Procedures Date Procedure Procedure Detail Performing Clinician Start: 04-06-2023 Endoscopic biopsy Saurav Asencio Comment on above: at [facility] Start: 11-30-2022 Peripherally inserte d central catheter (physical object) ARISTIDES BORJA Comment on above: INSERTION Start: 10-25-2022 Gastric sleeve LYNDSAYSHANITA CURRY Comment on above: [facility] Start: 12-24-2021 Microscopic observat ion [Identifier] in Cervix by Cyto stain Cezar Bragg DPM FACFAS Work Phone: Start: 12-23-2021 Mammography Cezar Bragg DPM [facility] Work Phone: Start: 04-23-2021 Ct angiography chest w/contrast/noncontrast Shayy Nielson MD Work Phone: Start: 04-23-2021 COVID-19, RAPID Shayy Nielson MD Work Phone: Start: 04-23-2021 Comprehensive metabo lic panel Shayy Nielson MD Work Phone: Start: 04-23-2021 Ecg routine ecg w/le ast 12 lds w/i&r Shayy Nielson MD Work Phone: Start: 03-19-2021 Ecg routine ecg w/le ast 12 lds w/i&r Jacklyn Eugene PA-C Work Phone: Start: 03-19-2021 Assay of troponin quantitative Jacklyn Eugene PA-C Work Phone: Start: 03-19-2021 COVID-19, RAPID Shante e Eugene PA-C Work Phone: Start: 03-19-2021 End: 03-19-2021 Comprehensive metabolic panel Jacklyn Eugene PA-C Work Phone: Start: 06-27-2020 Antibody screen Comment on above: Performed By: #### X M #### [facility] (DEFAULT) [address] [place] [address] Start: 06-24-2020 Antibody screen Comment on above: Performed By: #### X M #### [facility] (DEFAULT) [address] [place] [address] Start: 06-21-2020 Antibody screen Comment on above: Performed By: #### C A, LDO, CHM7, MGO, BILI, ASTO #### [facility] (DEFAULT) [address] [place] [address] Start: 04-30-2020 Gluc bld gluc mntr d ev cleared fda spec home use ELI ORLOP Start: 04-29-2020 Blood count complete automated ELI ARAUZLOP Start: 04-29-2020 Glucose blood reagent strip ELI GRIFFITHP Start: 04-29-2020 Glucose blood reagent strip Eli J Orlop Work Phone: Start: 04-29-2020 Gluc bld gluc mntr d ev cleared fda spec home use ELI ORLOP Start: 04-29-2020 Basic metabolic pane l calcium total ELI ORLOP Start: 04-29-2020 Glucose blood reagent strip ELI ORLOP Start: 04-29-2020 Glucose blood reagent strip Eli J Orlop Work Phone: Start: 04-29-2020 Glucose blood reagent strip ELI ORLOP Start: 04-29-2020 DISCHARGE PATIENT STANL EY ORLOP Start: 04-29-2020 Glucose blood reagent strip Eli J Orlop Work Phone: Start: 04-29-2020 Gluc bld gluc mntr d ev cleared fda spec home use ELI ORLOP Start: 04-29-2020 Glucose blood reagent strip ELI ORLOP Start: 04-29-2020 INITIATE OXYGEN THER APY PROTOCOL ELI ORLOP Start: 04-29-2020 Glucose blood reagent strip Eli J Orlop Work Phone: Start: 04-29-2020 Basic metabolic pane l calcium total ELI ORLOP Start: 04-29-2020 Gluc bld gluc mntr d ev cleared fda spec home use ELI ORLOP Start: 04-29-2020 Basic metabolic pane l calcium total Jesús Nguyen Work Phone: Start: 04-29-2020 Gluc bld gluc mntr d ev cleared fda spec home use ELI ORLOP Start: 04-28-2020 Glucose blood reagent strip ELI ORLOP Start: 04-28-2020 Glucose blood reagent strip Jesús Nguyen Work Phone: Start: 04-28-2020 Gluc bld gluc mntr d ev cleared fda spec home use ELI ORLOP Start: 04-28-2020 Glucose blood reagent strip ELI ORLOP Start: 04-28-2020 DIET CARB CONTROL STANL EY ORLOP Start: 04-28-2020 Glucose blood reagent strip Jesús Nguyen Work Phone: Start: 04-28-2020 Glucose blood reagent strip ELI ORLOP Start: 04-28-2020 Glucose blood reagent strip Jesús Nguyen Work Phone: Start: 04-28-2020 Gluc bld gluc mntr d ev cleared fda spec home use ELI ORLOP Start: 04-28-2020 Echo tthrc r-t 2d w/ wom-mode compl spec&colr d ELI ORLOP Start: 04-28-2020 INITIATE OXYGEN THER APY PROTOCOL ELI ORLOP Start: 04-28-2020 Glucose blood reagent strip ELI ORLOP Start: 04-28-2020 Echo tthrc r-t 2d w/ wom-mode compl spec&colr d Smith T Aouad Work Phone (unformatted): [phone] Start: 04-28-2020 Basic metabolic pane l calcium total ELI ORLOP Start: 04-28-2020 Glucose blood reagent strip Jesús Nugyen Work Phone: Start: 04-28-2020 Gluc bld gluc mntr d ev cleared fda spec home use ELI ORLOP Start: 04-28-2020 Basic metabolic pane l calcium total Jesús Nguyen Work Phone: Start: 04-28-2020 Gluc bld gluc mntr d ev cleared fda spec home use ELI ORLOP Start: 04-27-2020 Glucose blood reagent strip ELI ORLOP Start: 04-27-2020 Gluc bld gluc mntr d ev cleared fda spec home use ELI ORLOP Start: 04-27-2020 Glucose blood reagent strip Jesús Nguyen Work Phone: Start: 04-27-2020 Glucose blood reagent strip ELI ORLOP Start: 04-27-2020 Glucose blood reagent strip Jesús Nguyen Work Phone: Start: 04-27-2020 Glucose blood reagent strip ELI ORLOP Start: 04-27-2020 Glucose blood reagent strip Jesús Wong Work Phone: Start: 04-27-2020 Gluc bld gluc mntr d ev cleared fda spec home use ELI ORLOP Start: 04-27-2020 INITIATE OXYGEN THER APY PROTOCOL ELI ORLOP Start: 04-27-2020 Glucose blood reagent strip ELI ORLOP Start: 04-27-2020 Basic metabolic pane l calcium total ELI ORLOP Start: 04-27-2020 Blood count complete automated ELI ORLOP Start: 04-27-2020 Reticulated platelet assay ELI ORLOP Start: 04-27-2020 Glucose blood reagent strip Jesús Nguyen Work Phone: Start: 04-27-2020 Basic metabolic pane l calcium total Jesús Nguyen Work Phone: Start: 04-27-2020 Blood count complete automated Lisa Thomas Work Phone: Start: 04-27-2020 IMMATURE PLATELET FRACTION Jesús Nguyen Work Phone: Start: 04-27-2020 Gluc bld gluc mntr d ev cleared fda spec home use ELI ORLOP Start: 04-27-2020 Gluc bld gluc mntr d ev cleared fda spec home use ELI ORLOP Start: 04-26-2020 Glucose blood reagent strip ELI ORLOP Start: 04-26-2020 Gluc bld gluc mntr d ev cleared fda spec home use ELI ORLOP Start: 04-26-2020 IP CONSULT TO ONCOLOGY ELI ORLOP Start: 04-26-2020 Glucose blood reagent strip Jesús Nguyen Work Phone: Start: 04-26-2020 Glucose blood reagent strip ELI ORLOP Start: 04-26-2020 Glucose blood reagent strip Jesús Nguyen Work Phone: Start: 04-26-2020 Glucose blood reagent strip ELI ORLOP Start: 04-26-2020 Glucose blood reagent strip Jesús Nguyen Work Phone: Start: 04-26-2020 Gluc bld gluc mntr d ev cleared fda spec home use ELI ORLOP Start: 04-26-2020 Glucose blood reagent strip ELI ORLOP Start: 04-26-2020 INITIATE OXYGEN THER APY PROTOCOL ELI ORLOP Start: 04-26-2020 Glucose blood reagent strip Jesús Nguyen Work Phone: Start: 04-26-2020 Basic metabolic pane l calcium total ELI ORLOP Start: 04-26-2020 Blood count complete automated ELI ORLOP Start: 04-26-2020 Gluc bld gluc mntr d ev cleared fda spec home use ELI ORLOP Start: 04-26-2020 Basic metabolic pane l calcium total Jesús Nguyen Work Phone: Start: 04-26-2020 Blood count complete automated Lisa Thomas Work Phone: Start: 04-26-2020 Gluc bld gluc mntr d ev cleared fda spec home use ELI ORLOP Start: 04-25-2020 Glucose blood reagent strip ELI ORLOP Start: 04-25-2020 Gluc bld gluc mntr d ev cleared fda spec home use ELI ORLOP Start: 04-25-2020 Glucose blood reagent strip Jesús Nguyen Work Phone: Start: 04-25-2020 Immunoassay tumor an tigen quantitative ca 15-3 ELI ORLOP Start: 04-25-2020 Glucose blood reagent strip ELI ORLOP Start: 04-25-2020 Immunoassay tumor an tigen quantitative ca 15-3 Lisa Thomas Work Phone: Start: 04-25-2020 Level iv surg pathol ogy gross&microscopic exam ELI ARAUZLOP Start: 04-25-2020 Glucose blood reagent strip Jesús Nguyen Work Phone: Start: 04-25-2020 Level iv surg pathol ogy gross&microscopic exam Jesús Nguyen Work Phone: Start: 04-25-2020 Bone &/joint imaging 3 phase study ELI ORLOP Start: 04-25-2020 CULTURE, BLOOD 1 STANLE Y ORLOP Start: 04-25-2020 Biopsy bone trocar/n eedle superficial ELI DAVONTELOP Start: 04-25-2020 Glucose blood reagent strip Jesús Nguyen Work Phone: Start: 04-25-2020 Bone &/joint imaging 3 phase study Smith Vazquez Aouad Work Phone (unformatted): [phone] Start: 04-25-2020 Gluc bld gluc mntr d ev cleared fda spec home use ELI ORLOP Start: 04-25-2020 CATHETER REMOVAL STANLE Y ORLOP Start: 04-25-2020 Cul prsmptv pthgnc o rganism scrn w/colony estimj Jesús Nguyen Work Phone: Start: 04-25-2020 IR BIOPSY BONE NEEDL E SUPERFCL Smith T Aouad Work Phone (unformatted): [phone] Start: 04-25-2020 INITIATE OXYGEN THER APY PROTOCOL ELI ARAUZLOP Start: 04-25-2020 Glucose blood reagent strip ELI ARAUZLOP Start: 04-25-2020 Assay of free thyroxine ELI ORLOP Start: 04-25-2020 Assay of thyroid sti mulating hormone tsh ELI ORLOP Start: 04-25-2020 Basic metabolic pane l calcium total ELI GRIFFITHP Start: 04-25-2020 Blood count complete automated ELI GRIFFITHP Start: 04-25-2020 Hepatic function panel ELI GRIFFITHP Start: 04-25-2020 Glucose blood reagent strip Jesús Nguyen Work Phone: Start: 04-25-2020 Assay of free thyroxine Jesús Nguyen Work Phone: Start: 04-25-2020 Assay of thyroid sti mulating hormone tsh Jesús Nguyen Work Phone: Start: 04-25-2020 Basic metabolic pane l calcium total Jesús Nguyen Work Phone: Start: 04-25-2020 Blood count complete automated Lisa Thomas Work Phone: Start: 04-25-2020 Hepatic function panel Jesús Nguyen Work Phone: Start: 04-25-2020 NURSING COMMUNICATION S LUIS LAMB Start: 04-25-2020 Assay of nephelometr y each analyte cahd ELI GRIFFITHP Start: 04-25-2020 C-reactive protein LEVY ARAUZLOP Start: 04-25-2020 Assay of nephelometr y each analyte chad Smith T Aouad Work Phone (unformatted): [phone] Start: 04-25-2020 C-reactive protein Arle tte T Aouad Work Phone (unformatted): [phone] Start: 04-25-2020 CULTURE, BLOOD 1 Tammy e T Aouad Work Phone (unformatted): [phone] Start: 04-24-2020 Glucose blood reagent strip ELI ARAUZLOP Start: 04-24-2020 Prothrombin time STANLE Y ORLOP Start: 04-24-2020 Thromboplastin time partial plasma/whole blood ELI ORLOP Start: 04-24-2020 Glucose blood reagent strip Jesús Nguyen Work Phone: Start: 04-24-2020 Prothrombin time Benjam in A Carrle Work Phone: Start: 04-24-2020 Thromboplastin time partial plasma/whole blood Steph A Carrle Work Phone: Start: 04-24-2020 Glucose blood reagent strip ELI ORLOP Start: 04-24-2020 Radiologic exam ches t single view ELI ORLOP Start: 04-24-2020 Glucose blood reagent strip Jesús Nguyen Work Phone: Start: 04-24-2020 Radiologic exam ches t single view Ad Ramos Work Phone: Start: 04-24-2020 Alpha-fetoprotein serum ELI DAVONTELOP Start: 04-24-2020 Carcinoembryonic antigen cea ELI ORLOP Start: 04-24-2020 Immunoassay tumor an tigen quantitative ca 125 ELI ORLOP Start: 04-24-2020 Immunoassay tumor an tigen quantitative ca 19-9 ELI ORLOP Start: 04-24-2020 Glucose blood reagent strip ELI ORLOP Start: 04-24-2020 IP CONSULT TO ONCOLOGY ELI LAMB Start: 04-24-2020 Alpha-fetoprotein serum Lisa Thomas Work Phone: Start: 04-24-2020 Carcinoembryonic antigen cea Lisa Thomas Work Phone: Start: 04-24-2020 Immunoassay tumor an tigen quantitative ca 125 Lisa Thomas Work Phone: Start: 04-24-2020 Immunoassay tumor an tigen quantitative ca 19-9 Lisa Thomas Work Phone: Start: 04-24-2020 Glucose blood reagent strip Jesús Nguyen Work Phone: Start: 04-24-2020 Ct lower extremity w/contrast material ELI ORLOP Start: 04-24-2020 Ct pelvis w/contrast material ELI ORLOP Start: 04-24-2020 INITIATE OXYGEN THER APY PROTOCOL ELI ORLOP Start: 04-24-2020 Ct lower extremity w/contrast material Smith T Aouad Work Phone (unformatted): [phone] Start: 04-24-2020 Ct pelvis w/contrast material Smith T Aouad Work Phone (unformatted): [phone] Start: 04-24-2020 Basic metabolic pane l calcium total ELI ORLOP Start: 04-24-2020 Blood count complete automated ELI ORLOP Start: 04-24-2020 Glucose blood reagent strip ELI ORLOP Start: 04-24-2020 Basic metabolic pane l calcium total Jesús Nguyen Work Phone: Start: 04-24-2020 Blood count complete automated Jesús Nguyen Work Phone: Start: 04-24-2020 Glucose blood reagent strip Jesús Nguyen Work Phone: Start: 04-23-2020 Glucose blood reagent strip ELI ORLOP Start: 04-23-2020 Radiologic exam pelv is compl minimum 3 views ELI ORLOP Start: 04-23-2020 Glucose blood reagent strip Jesús Nguyen Work Phone: Start: 04-23-2020 C-reactive protein LEVY ROB ORLOP Start: 04-23-2020 IP CONSULT TO ORTHOP EDIC SURGERY ELI ORLOP Start: 04-23-2020 Radiologic exam pelv is compl minimum 3 views Jeremias Wallace Work Phone: Start: 04-23-2020 C-reactive protein Arle tte T Aouad Work Phone (unformatted): [phone] Start: 04-23-2020 Blood count complete auto&auto difrntl wbc ELI ORLOP Start: 04-23-2020 PREVIOUS SPECIMEN STANL EY ORLOP Start: 04-23-2020 Glucose blood reagent strip ELI ORLOP Start: 04-23-2020 Blood count complete auto&auto difrntl wbc Jesús Nguyen Work Phone: Start: 04-23-2020 Basic metabolic pane l calcium total ELI ORLOP Start: 04-23-2020 Drug tst prsmv instr mnt chem analyzers pr date ELI ORLOP Start: 04-23-2020 Glucose blood reagent strip Jesús Nguyen Work Phone: Start: 04-23-2020 INFECTIOUS DISEASE INTERVENTION ELI ORLOP Start: 04-23-2020 Basic metabolic pane l calcium total Ad Brian Work Phone: Start: 04-23-2020 SPECIMEN REJECTION Ad Brian Work Phone: Start: 04-23-2020 Glucose blood reagent strip ELI ORLOP Start: 04-23-2020 INFECTIOUS DISEASE INTERVENTION Smith T Aoshiela Work Phone (unformatted): [phone] Start: 04-23-2020 Glucose blood reagent strip Jesús Wong Work Phone: Start: 04-23-2020 Calcium ionized ELI ORLOP Start: 04-23-2020 Drug screen quantita tive vancomycin ELI ORLOP Start: 04-23-2020 INITIATE OXYGEN THER APY PROTOCOL ELI ORLOP Start: 04-23-2020 Glucose blood reagent strip ELI ORLOP Start: 04-23-2020 Calcium ionized Jesús Nguyen Work Phone: Start: 04-23-2020 Drug screen quantita tive vancomycin Jesús Nguyen Work Phone: Start: 04-23-2020 Glucose blood reagent strip Jesús Nguyen Work Phone: Start: 04-22-2020 Glucose blood reagent strip ELI ORLOP Start: 04-22-2020 Glucose blood reagent strip Jesús Wong Work Phone: Start: 04-22-2020 Glucose blood reagent strip ELI ORLOP Start: 04-22-2020 Glucose blood reagent strip Jesús Wong Work Phone: Start: 04-22-2020 Us retroperitoneal r eal time w/image limited ELI ORLOP Start: 04-22-2020 Glucose blood reagent strip ELI ORLOP Start: 04-22-2020 PREVIOUS SPECIMEN STANL EY ORLOP Start: 04-22-2020 TRANSFER PATIENT STANLE Y ORLOP Start: 04-22-2020 Us retroperitoneal r eal time w/image limited Alex Sandie Work Phone: Start: 04-22-2020 Glucose blood reagent strip Jesús Nguyen Work Phone: Start: 04-22-2020 INITIATE OXYGEN THER APY PROTOCOL ELI ORLOP Start: 04-22-2020 Glucose blood reagent strip ELI ORLOP Start: 04-22-2020 Glucose blood reagent strip Jesús Nguyen Work Phone: Start: 04-22-2020 Assay of magnesium LEVY ROB ORLOP Start: 04-22-2020 Assay of phosphorus inorganic ELI ORLOP Start: 04-22-2020 Blood count complete auto&auto difrntl wbc ELI ORLOP Start: 04-22-2020 Blood count complete automated ELI ORLOP Start: 04-22-2020 Creatine kinase total S TANLEY ORLOP Start: 04-22-2020 Drug screen quantita tive vancomycin ELI ORLOP Start: 04-22-2020 Drug tst prsmv instr mnt chem analyzers pr date ELI ORLOP Start: 04-22-2020 Myoglobin ELI OR LOP Start: 04-22-2020 Assay of magnesium Levy rob J Orlop Work Phone: Start: 04-22-2020 Assay of phosphorus inorganic Eli J Orlop Work Phone: Start: 04-22-2020 Blood count complete auto&auto difrntl wbc Eli J Orlop Work Phone: Start: 04-22-2020 Blood count complete automated Eli J Orlop Work Phone: Start: 04-22-2020 Creatine kinase total S tanley J Orlop Work Phone: Start: 04-22-2020 Drug screen quantita tive vancomycin Eli J Orlop Work Phone: Start: 04-22-2020 Myoglobin Eli J Orlop Work Phone: Start: 04-22-2020 SPECIMEN REJECTION Levy rob J Orlop Work Phone: Start: 04-22-2020 Assay of urine sodium S TANLEY ORLOP Start: 04-22-2020 Chloride urine ELI ORLOP Start: 04-22-2020 Creatinine other source ELI ORLOP Start: 04-22-2020 Potassium urine ELI ORLOP Start: 04-22-2020 Protein total xcpt refractometry urine ELI ORLOP Start: 04-22-2020 Urnls dip stick/tabl et reagent auto microscopy ELI ARAUZLOP Start: 04-22-2020 DAILY WEIGHTS ELI Marie RLOP Start: 04-22-2020 STRICT INTAKE AND OUTPUT ELI GRIFFITHP Start: 04-22-2020 Assay of urine sodium N ishant Sandie Work Phone: Start: 04-22-2020 Chloride urine Alex Sandie Work Phone: Start: 04-22-2020 Creatinine other source Alex Sandie Work Phone: Start: 04-22-2020 Potassium urine Alex Sandie Work Phone: Start: 04-22-2020 Protein total xcpt refractometry urine Alex Sandie Work Phone: Start: 04-22-2020 Urnls dip stick/tabl et reagent auto microscopy Alex Sandie Work Phone: Start: 04-22-2020 Comprehensive metabo lic panel ELI GRIFFITHLeslye Start: 04-21-2020 BASIC METABOLIC PANE L W/ REFLEX TO MG FOR LOW K Alex Sandie Work Phone: Start: 04-21-2020 Glucose blood reagent strip ELI GRIFFITHLeslye Start: 04-21-2020 Insj prph ctr vad w/ subq port age 5 yr/> ELI LAMB Start: 04-21-2020 MISCELLANEOUS NURSIN G CARE ORDER (SPECIFY) ELI GRIFFITHLeslye Start: 04-21-2020 NURSING COMMUNICATION S MADIROB ARAUZMILO Start: 04-21-2020 Glucose blood reagent strip Kati Mcdaniel Work Phone: Start: 04-21-2020 Assay of lactate DANA Ambriz DAVONTEMILO Start: 04-21-2020 Glucose blood reagent strip Kati Mcdaniel Work Phone: Start: 04-21-2020 Insj prph ctr vad w/ subq port age 5 yr/> Kati Mcdaniel Work Phone: Start: 04-21-2020 Nursing procedure Shere en Violeta Work Phone: Start: 04-21-2020 LACTATE, SEPSIS Eli Griffithp Work Phone: Start: 04-21-2020 Assay of ferritin LEVYL EY LILIANP Start: 04-21-2020 Assay of lactate LEVYLE Y DAVONTELOP Start: 04-21-2020 Assay of thyroid sti mulating hormone tsh ELI GRIFFITHP Start: 04-21-2020 Assay of troponin quantitative ELI GRIFFITHP Start: 04-21-2020 Blood count complete auto&auto difrntl wbc ELI GRIFFITHP Start: 04-21-2020 C-reactive protein LEVY ROB GRIFFITHP Start: 04-21-2020 Comprehensive metabo lic panel ELI GRIFFITHP Start: 04-21-2020 COVID-19, ANTIBODY, TOTAL ELI GRIFFITHP Start: 04-21-2020 Creatine kinase total S LUIS LAMB Start: 04-21-2020 Fibrinogen activity STA LEVI GRIFFITHP Start: 04-21-2020 Hemoglobin glycosylated a1c ELI GRIFFITHP Start: 04-21-2020 Lactate dehydrogenase ldh ELI LAMB Start: 04-21-2020 Myoglobin ELI PARRAP Start: 04-21-2020 Procalcitonin (pct) STA LEVI LAMB Start: 04-21-2020 CULTURE, BLOOD 1 DANA LAMB Start: 04-21-2020 NURSING COMMUNICATION S LUIS LAMB Start: 04-21-2020 Culture bacterial quanttative colony count urine ELI LAMB Start: 04-21-2020 IP CONSULT TO PULMONOLOGY ELI LAMB Start: 04-21-2020 Assay of ferritin Levyl lisha Griffithp Work Phone: Start: 04-21-2020 Assay of thyroid sti mulating hormone tsh Eli Griffithp Work Phone: Start: 04-21-2020 Assay of troponin quantitative Eli Griffithp Work Phone: Start: 04-21-2020 Blood count complete auto&auto difrntl wbc Eli Griffithp Work Phone: Start: 04-21-2020 C-reactive protein Levy Griffithp Work Phone: Start: 04-21-2020 Comprehensive metabo lic panel Eli Lamb Work Phone: Start: 04-21-2020 COVID-19, ANTIBODY, TOTAL Eli Lamb Work Phone: Start: 04-21-2020 Creatine kinase total S luis Lamb Work Phone: Start: 04-21-2020 Fibrinogen activity Cristina Lamb Work Phone: Start: 04-21-2020 Hemoglobin glycosylated a1c Eli Lamb Work Phone: Start: 04-21-2020 Lactate dehydrogenase ldh Eli Lamb Work Phone: Start: 04-21-2020 LACTATE, SEPSIS Eli Lamb Work Phone: Start: 04-21-2020 Myoglobin Eli Lamb Work Phone: Start: 04-21-2020 Procalcitonin (pct) Cristina Lamb Work Phone: Start: 04-21-2020 CULTURE, BLOOD 1 Dana Lamb Work Phone: Start: 04-21-2020 COVID-19 ELI PEDRAZA Start: 04-21-2020 Urinalysis microscopic only ELI DAVONTEMILO Start: 04-21-2020 Urnls dip stick/tabl et rgnt auto w/o microscopy ELI DAVONTEMILO Start: 04-21-2020 Culture bacterial quanttative colony count urine Kati Mcdaniel Work Phone: Start: 04-21-2020 IP CONSULT TO INFECT IOUS DISEASES ELI LAMB Start: 04-21-2020 PHARMACY TO DOSE VANCOMYCIN ELI LAMB Start: 04-21-2020 REASON FOR NO CHEMIC AL VTE PROPHYLAXIS ELI LAMB Start: 04-21-2020 SPECIALTY BED REQUEST S LUIS LAMB Start: 04-21-2020 Culture bacterial bl ood aerobic w/id isolates LEI LAMB Start: 04-21-2020 IP CONSULT TO NEPHROLOGY ELI LABM Start: 04-21-2020 PLACE INTERMITTENT P NEUMATIC COMPRESSION DEVICE ELI LAMB Start: 04-21-2020 OT EVAL AND TREAT EHSAN DOWNS ORLOP Start: 04-21-2020 PT EVAL AND TREAT EHASN ARAUZLOP Start: 04-21-2020 FULL CODE ELI PEDRAZA Start: 04-21-2020 INITIATE OXYGEN THER APY PROTOCOL ELI GRIFFITHP Start: 04-21-2020 INTAKE AND OUTPUT EHSAN ARAUZLOP Start: 04-21-2020 NOTIFY PHYSICIAN (SPECIFY) ELI GRIFFITHP Start: 04-21-2020 VITAL SIGNS ELI PARRAP Start: 04-21-2020 Urinalysis microscopic only Eli Lamb Work Phone: Start: 04-21-2020 Urnls dip stick/tabl et rgnt auto w/o microscopy Eli Lamb Work Phone: Start: 04-21-2020 PATIENT STATUS (DIRECT) ELI LAMB Start: 12-08-2019 End: 12-08-2019 Microscopic examination of blood, culture CEZAR SIM Comment on above: Performed By: #### C BC #### [facility] [address] [address] [place] Start: 11-09-2019 End: 11-09-2019 Microscopic examination of blood, culture CEZAR SIM Comment on above: Performed By: #### B MP, TSH, LIVER, LIPID #### [facility] [address] [address] [place] Start: 10-27-2019 Microscopic examinat ion of blood, culture CEZAR SIM Comment on above: Performed By: #### B MP, TSH, LIVER, LIPID #### [facility] [address] [address] [place] Start: 12-21-2018 BASIC METABOLIC PANE L W/ REFLEX TO MG FOR LOW K Nellie Pentito Work Phone: Start: 12-21-2018 Blood count complete auto&auto difrntl wbc Nellie Pentito Work Phone: Start: 12-21-2018 RADIOLOGY REPORT [facility] Start: 12-20-2018 Cath, inf, per/cent/midline Cruz Schwartz Work Phone: Start: 12-20-2018 Fluoro central venou s access dev placement Cruz Schwartz Work Phone: Start: 12-20-2018 Us vasc access sits vsl patency ndl entry Cruz Schwartz Work Phone: Start: 12-20-2018 Drug screen quantita tive vancomycin Nellie Pentrobert Work Phone: Start: 12-20-2018 BASIC METABOLIC PANE L W/ REFLEX TO MG FOR LOW K Nellie Pentito Work Phone: Start: 12-20-2018 Blood count complete auto&auto difrntl wbc Nellie Pentito Work Phone: Start: 12-19-2018 Dup-scan xtr veins unilateral/limited study Nellie Pentito Work Phone: Start: 12-19-2018 Assay of lactate Nellie Pentito Work Phone: Start: 12-19-2018 BASIC METABOLIC PANE L W/ REFLEX TO MG FOR LOW K Nellie Pentito Work Phone: Start: 12-19-2018 Blood count complete auto&auto difrntl wbc Nellie Pentito Work Phone: Start: 12-19-2018 Gluc bld gluc mntr d ev cleared fda spec home use Unknown Provider Result Start: 12-19-2018 WOUND OSTOMY EVAL AND TREAT Nellie Pentito Work Phone: Start: 12-18-2018 Culture bacterial bl ood aerobic w/id isolates Rajendra Antonio Work Phone: Start: 12-18-2018 Assay of lactate Alessandro Antonio Work Phone: Start: 12-18-2018 Blood count complete auto&auto difrntl wbc Rajendra Antonio Work Phone: Start: 12-18-2018 Comprehensive metabo lic panel Rajendra Antonio Work Phone: Start: 12-18-2018 Culture bacterial quanttative colony count urine Rajendra Antonio Work Phone: Start: 12-18-2018 Urinalysis microscopic only Rajendra Antonio Work Phone: Start: 12-18-2018 Urnls dip stick/tabl et rgnt auto w/o microscopy Rajendra Antonio Work Phone: section Marisol henderson Cholecystectomy Marisol Sherly johnston Gallbladder structur e (body structure) Marisol Gomezell Tonsillectomy Marisol Marco Antonio Tonsillectomy Marisol Bernard Plan of Treatment Date Care Activity Detail Author Start: 10-24-2028 DTaP/Tdap/Td vaccine (2 - Td or Tdap) DTaP/Tdap/Td vaccine (2 - Td or Tdap) [facility] Start: 10-24-2028 DTaP/Tdap/Td vaccine (2 - Td) DTaP/Tdap/Td vaccine (2 - Td) [place], [place] Start: 12-24-2024 Screening for malignant neoplasm of cervix [facility] Start: 04-30-2024 End: 04-30-2024 Patient encounter procedure 04/30/2024 9:10 AM EST Procedure Visit [facility] [address] [place] [id number] Cezar Bragg, DPM FACFAS [address] [place] [address] [facility] Start: 02-20-2024 End: 02-20-2024 Patient encounter procedure 02/20/2024 10:30 AM EDT Procedure Visit [facility] [address] [place] [id number] Cezar Bragg, DPM FACFAS [address] [place] [address] Arrived [facility] Comment on above: Arrived Start: 01-08-2024 Influenza vaccination Influenza Vaccine (#1) [facility] Start: 06-16-2023 Hemoglobin A1c measurement Diabetes: Hemoglobin A1C [facility] Start: 12-23-2022 Screening for malignant neoplasm of breast Mammogram [facility] Start: 01-08-2022 Hemoglobin A1c/Hemoglobin.total in Blood HBA1C [facility] Start: 01-07-2022 Influenza vaccination [facility] Start: 04-21-2021 HbA1c (Bld) [Mass fraction] A1C test (Diabetic or Prediabetic) [place], [place] Start: 04-21-2021 Hemoglobin A1c measurement A1C test (Diabetic or Prediabetic) [facility] Start: 01-07-2021 Influenza vaccination [facility] Start: 2020 Mammography MAMMOGRAM [facility] Start: 04-28-2020 End: 04-28-2021 NM BONE SCAN 3 PHASE NM BONE SCAN 3 PHASE Imaging Routine Acute osteomyelitis of right pelvic region and thigh (HCC) Expected: 04/28/2020, Expires: 04/28/2021 [place], [place] Comment on above: Expected: 04/28/2020, Expires: Start: 01-08-2020 Influenza vaccination Flu vaccine (#1) [place] Start: 12-20-2019 Creatinine monitoring Creatinine monitoring [place], [place] Start: 12-20-2019 Potassium monitoring Potassium monitoring [place] Start: 07-22-2019 A1C test (Diabetic or Prediabetic) A1C test (Diabetic or Prediabetic) [place] Start: 01-07-2019 Influenza vaccination Flu vaccine (#1) [place] Start: 12-27-2018 End: 12-27-2018 Office Visit 12/27/2018 Office Visit Family Medicine 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, 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 [address] [place] [address] [facility] Start: 05-21-2016 Lipid panel Lipid screen [facility] Start: 05-21-2016 Lipid screen Lipid screen [place], [place] Start: 2010 HPV TESTING HPV TESTING [facility] Start: 2010 Screening for malignant neoplasm of cervix [facility] Start: 2001 Cervical cancer screen Cervical cancer screen [place], [place] Start: 2001 PAP TESTING PAP TESTING [facility] Start: 2001 Screening for malignant neoplasm of cervix [facility] Start: 11-27-1999 Hepatitis B Vaccine (1 of 3 - Risk 3-dose series) Hepatitis B Vaccine (1 of 3 - Risk 3-dose series) [facility] Start: 11-27-1999 Urine microalbumin profile DTAP,TDAP,TD (1 - Tdap) [facility] Start: 11-27-1999 Urine screening for protein Diabetes: Urine Protein Screening [facility] Start: 1998 ANNUAL PCP TEAM CHRONIC DISEASE VISIT ANNUAL PCP TEAM CHRONIC DISEASE VISIT [facility] Start: 1998 Diabetic microalbuminuria test Diabetic microalbuminuria test [facility] Start: 1998 Diabetic retinal exam Diabetic retinal exam [facility] Start: 1998 Hepatitis B surface antibody level LDL CHOLESTEROL [facility] Start: 1998 HEPATITIS C SCREENING HEPATITIS C SCREENING [facility] Start: 1998 HIV SCREENING HIV SCREENING [facility] Start: 1998 Urine screening for protein Diabetic microalbuminuria test [facility] Start: 1996 ONE PNEUMOVAX PRIOR TO AGE 65 ONE PNEUMOVAX PRIOR TO AGE 65 [facility] Start: 11-27-1995 HIV screen HIV screen [place], [place] Start: 11-27-1995 HIV screening HIV screen [facility] Start: 1993 Varicella Vaccine (1 of 2 - 13+ 2-dose series) Varicella Vaccine (1 of 2 - 13+ 2-dose series) [place] Start: 1992 Adult depression screening assessment DEPRESSION SCREENING [facility] Start: 1992 COVID-19 Vaccine (1) COVID-19 Vaccine (1) [facility] Start: 1990 [object Object] Diabetic foot exam [facility] Start: 1990 Diabetic foot examination Diabetic foot exam [facility] Start: 1990 Diabetic retinal exam Diabetic retinal exam [facility] Start: 1990 Glaucoma screening Diabetes: Retinopathy Screening [facility] Start: 1990 Hepatitis B screening URINE ALBUMIN:CREATININE RATIO [facility] Start: 1990 Hepatitis C antibody, confirmatory test DILATED RETINAL EXAM [facility] Start: 1986 Pneumococcal 0-64 years Vaccine (1 of 1 - PPSV23) Pneumococcal 0-64 years Vaccine (1 of 1 - PPSV23) [facility] [place] Start: 1986 Pneumococcal 0-64 years Vaccine (1 of 4 - PCV13) Pneumococcal 0-64 years Vaccine (1 of 4 - PCV13) [facility] Start: 1981 Varicella vaccine (1 of 2 - 2-dose childhood series) Varicella vaccine (1 of 2 - 2-dose childhood series) [facility] Start: 1980 Hepatitis C screening Hepatitis C screen [facility] Basic metabolic 2000 panel BASIC METABOLIC PANEL Lab Routine Daily until discontinued starting 04/24/2020, 6 completed [place] Comment on above: Daily until discontinued starting 2019, 6 completed Basic Metabolic Pane l w/ Reflex to MG [place] Comment on above: Daily until discontinued starting 2018 Tomorrow AM until di scontinued starting 04/30/2020 CBC CBC Lab Routine Tomorrow AM until discontinued starting 04/30/2020 [place] Comment on above: Tomorrow AM until discontinued starting 04/30/2020 CBC auto differential CBC auto d ifferential Lab Routine - Unit Daily until discontinued starting 12/22/2018 [place] Comment on above: Daily until discontinued starting 2018 End: 04-21-2020 COVID-19 COVID-19 Lab Routine One Time for 1 Occurrences starting 04/21/2020 until 04/21/2020 [place] Comment on above: One Time for 1 Occurrences starting 04/08 until 04/21/2020 End: 03-19-2021 CTA Chest W WO (PE study) CTA Chest W WO (PE study) Imaging STAT Once for 1 Occurrences starting 03/19/2021 until 03/19/2021 [employer] Phone: Comment on above: Once for 1 Occurrences starting 03/19/20 21 until 03/19/2021 CTA Chest W WO (PE study) CTA Ch est W WO (PE study) Imaging STAT 03/19/2021 1:50 AM EST [employer] Phone: Culture Blood #1 Culture Blood # 1 Microbiology STAT 12/18/2018 10:54 PM [facility] #2 Culture Blood # 2 Microbiology STAT 12/18/2018 10:54 PM EDT [facility] DAVID Culture, Anaerobic a nd Aerobic Culture, Anaerobic and Aerobic Microbiology Routine 04/25/2020 12:00 PM [place] Culture, Blood 1 Culture, Blood 1 Microbiology STAT 04/25/2020 12:00 AM [place] End: 04-21-2020 Culture, Blood 2 Culture, Blood 2 Microbiology STAT One Time for 1 Occurrences starting 04/21/2020 until 04/21/2020 [place] Comment on above: One Time for 1 Occurrences starting 04/08 until 04/21/2020 Debridement nail any method 1-5 DEBRIDEMENT OF NAIL(S), 1-5 Procedures Routine Pain due to onychomycosis of toenail of left foot Pain due to onychomycosis of toenail of right foot Onychomycosis of multiple toenails with type 2 diabetes mellitus (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 VINCENZO NIETO [employer] Work Phone: Comment on above: Ordered: 07/30/2021 EKG 12 Lead - Chest Pain EKG 12 Lead - Chest Pain ECG STAT 03/19/2021 2:54 AM [employer] Work Phone: EKG 12 Lead - Chest Pain EKG 12 Lead - Chest Pain ECG STAT 04/23/2021 10:12 AM [employer] Work Phone: Initiate Oxygen Ther apy Protocol Initiate Oxygen Therapy Protocol Respiratory Care Routine Daily until discontinued starting 12/19/2018 [place] Comment on above: Daily until discontinued starting 2018 [place] [place] Initiate Oxygen Therapy Protocol Respiratory Care Routine Daily until discontinued starting 04/21/2020 [place] Comment on above: Daily until discontinued starting 2019 POCT Glucose [place], [place] Comment on above: 4X Daily (AC & HS) until discontinued st arting 04/25/2020 As Needed until disc ontinued starting 04/25/2020 End: 04-22-2020 PREVIOUS SPECIMEN PREVIOUS SPECIMEN Lab STAT Once for 1 Occurrences starting 04/22/2020 until 04/22/2020 [facility], [place] Comment on above: Once for 1 Occurrences starting 04/22/20 20 until 04/22/2020 End: 04-23-2020 PREVIOUS SPECIMEN PREVIOUS SPECIMEN Lab STAT Once for 1 Occurrences starting 04/23/2020 until 04/23/2020 [facility], [place] Comment on above: Once for 1 Occurrences starting 04/23/20 20 until 04/23/2020 PREVIOUS SPECIMEN [facility], [place] End: 03-19-2021 Urine Reflex to Culture Urine Reflex to Culture Lab STAT One Time for 1 Occurrences starting 03/19/2021 until 03/19/2021 [facility] Work Phone: Comment on above: One Time for 1 Occurrences starting 03/09 until 03/19/2021 End: 03-19-2021 XR CHEST PORTABLE XR CHEST PORTABLE Imaging STAT Once for 1 Occurrences starting 03/19/2021 until 03/19/2021 [facility] Work Phone: Comment on above: Once for 1 Occurrences starting 03/19/20 until 03/19/2021 XR CHEST PORTABLE XR CHEST MARY BLE Imaging STAT 03/19/2021 12:55 AM EST [facility] Work Phone: End: 09-13-2022 XR HIP GENERAL 3V PELV/AP/LAT RIGHT XR HIP GENERAL 3V PELV/AP/LAT RIGHT Radiology Routine Pain in right hip 1 Occurrences starting 08/14/2021 until 09/13/2022 [facility] Work Phone: Comment on above: 1 Occurrences starting 08/14/2021 until 09/13/2022 [facility] Immunizations Immunization Date Immunization Notes Care Provider Florentin roy 06-08-2021 SARS-CoV-2 (COVID-19 ) [id number] vaccine Marisol Bernard [facility] 02-10-2021 influenza virus vaccine, unspecified formulation Cezar Bragg DPM FACFAS Work Phone: [facility] 11-27-2020 SARS-CoV-2 (COVID-19 ) [id number] vaccine Marisol Bernard [facility] Comment on above: Result Comment: 2021: TPV3 09-22-2020 COVID-19, mRNA, LNP-S, PF, 30 mcg/0.3 mL dose; Translations: [[facility] COVID-19 Vaccine] Marisol Bernard [facility] Comment on above: Reason for Medicatio n: Prophylaxis 10-24-2018 tetanus toxoid, reduced diphtheria toxoid, and acellular pertussis vaccine, adsorbed Marisol Bernard [facility] 05-25-2011 hepatitis B vaccine, adult dosage Marisol Bernard [facility] NEGATED: Highlighted row has not occurred!02-25-2022 influenza virus vaccine, unspecified formulation Marisol Bernard [facility] NEGATED: Highlighted row has not occurred!02-05-2020 influenza, injectable, quadrivalent, preservative free Marisol Bernard [facility] Payers Date Payer Category Payer Self-pay [id number] 2022 [facility] Health [facility] [id number] 2022 Medicaid [id number] 2021 Unknown [facility] ONLY x0000 2021-Present [id number] ATTN [facility] [place] [address] Other x0000 [id number] 2020 Unknown 2018 Unknown [employer] [facility] MEDICAID xxxxxxxxxxx 2018-Present [phone] CLAIMS DEPARTMENT [address] [place] [address] xxxxxxxxxxx [id number] 2015 Medicaid [employer] [id number] 2015-Present [phone] [address] [place] [address] Medicaid [id number] 1980 Unknown [id number] 2.840.1.978005.3.579.2. 593 1980 Unknown [id number] 2.840.1.360343.3.579.2. 593 1980 Unknown [id number] 2.840.1.196439.3.579.2. 59 1980 Unknown [id number] 2.16840.1.917849.3.579.2. 593 1980 Unknown [id number] 2.16840.1.029929.3.579.2. 593 1980 Unknown [id number] 2.16.840.1.174045.3.579.2. 593 1980 Unknown [id number] 2.16.840.1.541341.3.579.2. 593 1980 Unknown [id number] 2.16.840.1.957600.3.579.2. 593 1980 Unknown [id number] 2.16.840.1.690379.3.579.2. 175 1980 Unknown [id number] 2.16.840.1.731523.3.579.2. 196 1980 Unknown [id number] 2.16.840.1.774487.3.579.2. 196 1980 Unknown [id number] 2.16.840.1.860017.3.579.2. 182 1980 Unknown [id number] 2.16840.1.819422.3.579.2. 182 1980 Unknown [id number] 2.16.840.1.181283.3.579.2. 93 1980 Unknown [id number] 2.16840.1.045507.3.579.2. 1980 Unknown [id number] 2.16840.1.175906.3.579.2. 72 1980 Unknown [id number] 2.16840.1.092980.3.579.2. 72 1980 Unknown [id number] 2.16.840.1.358047.3.579.2. 72 1980 Unknown [id number] 2.16840.1.135961.3.579.2. 72 1980 Unknown [id number] 2.16.840.1.819730.3.579.2. 72 1980 Unknown [id number] 2.16840.1.846732.3.579.2. 72 1980 Unknown [id number] 2.16.840.1.353269.3.579.2. 727 1980 Unknown [id number] 2.16.840.1.471796.3.579.2. 1980 Unknown [id number] 2.16.840.1.065469.3.579.2. 727 1980 Unknown [id number] 2.16.840.1.376026.3.579.2. 1980 Unknown [id number] 2.16.840.1.441652.3.579.2. 72 1980 Unknown [id number] 2.16.840.1.958352.3.579.2. 1980 Unknown [id number] 2.16.840.1.566222.3.579.2. 1980 Unknown [id number] 2.16840.1.196727.3.579.2. 1258 1980 Unknown [id number] 2.16840.1.635194.3.579.2. 1258 1980 Unknown [id number] 2.16.840.1.094831.3.579.2. 1258 1980 Unknown [id number] 2.16.840.1.335405.3.579.2. 1259 1959 Self-pay [id number] 1959 Unknown [id number] Unknown [id number] 2.16840.1.504058.3.579.2. 531 Unknown [id number] 2.16840.1.471296.3.579.2. 531 Unknown [id number] 2.16840.1.239320.3.579.2. 531 Social History Date Type Detail Facility Start: 12-19-2018 End: 10-11-2022 Tobacco smoking status DCIS Never smoker [facility] Start: 12-19-2018 End: 11-18-2023 Alcohol intake No [place] Start: 1980 Sex Assigned At Not on file [facility] Start: 04-25-2020 End: 10-11-2022 Tobacco use and exposure Never used [facility] Start: 04-25-2020 End: 04-23-2021 Alcohol intake Current non-drinker of alcohol (finding) [place] Start: 07-11-2021 End: 07-21-2021 Exposure to SARS-CoV-2 (event) Not sure [place] Start: 07-30-2021 Alcohol intake Current drinke r of alcohol (finding) [facility] Start: 09-27-2016 History SDOH Alcohol Comment rarely [facility] Tobacco smoking status Never [facility] Start: 1980 Sex Assigned At Female F [facility] Start: 11-18-2023 End: 02-20-2024 Alcoholic beverage intake Lifetime non-drinker (finding) [facility] Start: 11-18-2023 History of Social function [facility] Healthcare Medical Equipment Procedure Code Equipment Code Equipment Origin al Text Equipment Identifier Dates Fluoroscopic guidance for insertion of tunnelled dialysis catheter CATHETER BIOFLO DURAMAX 24CM FDA Start: 07-03-2018 Fluoroscopic guidance for insertion of tunnelled dialysis catheter CATHETER BIOFLO DURAMAX 24CM FDA Start: 07-03-2018 Fluoroscopic guidance for insertion of tunnelled dialysis catheter CATHETER BIOFLO DURAMAX 24CM FDA Start: 07-03-2018 Lancets, See Instructions, 1 EA, 11, Lancets, [id number], Supply, 180, cm, 02/25/22 10:46:00 EDT, Height/Length Dosing, 187.5, kg, 02/25/22 10:46:00 EDT, Weight Dosing Start: 02-25-2022 Test strips, See Instructions, 1 EA, 11, Test strips test 3 times a day, [id number], Supply, 180, cm, 02/25/22 10:46:00 EDT, Height/Length Dosing, 187.5, kg, 02/25/22 10:46:00 EDT, Weight Dosing Start: 02-25-2022 Lancets, See Instructions, 1 EA, 11, Lancets, [id number], Supply, 180, cm, 02/25/22 10:46:00 EDT, Height/Length Dosing, 187.5, kg, 02/25/22 10:46:00 EDT, Weight Dosing Start: 02-25-2022 Test strips, See Instructions, 1 EA, 11, Test strips test 3 times a day, [id number], Supply, 180, cm, 02/25/22 10:46:00 EDT, Height/Length Dosing, 187.5, kg, 02/25/22 10:46:00 EDT, Weight Dosing Start: 02-25-2022 Lancets, See Instructions, 1 EA, 11, Lancets, [id number], Supply, 180, cm, 02/25/22 10:46:00 EDT, Height/Length Dosing, 187.5, kg, 02/25/22 10:46:00 EDT, Weight Dosing Start: 02-25-2022 Test strips, See Instructions, 1 EA, 11, Test strips test 3 times a day, [id number], Supply, 180, cm, 02/25/22 10:46:00 EDT, Height/Length Dosing, 187.5, kg, 02/25/22 10:46:00 EDT, Weight Dosing Start: 02-25-2022 Lancets, See Instructions, 1 EA, 11, Lancets, [id number], Supply, 180, cm, 02/25/22 10:46:00 EDT, Height/Length Dosing, 187.5, kg, 02/25/22 10:46:00 EDT, Weight Dosing Start: 02-25-2022 Test strips, See Instructions, 1 EA, 11, Test strips test 3 times a day, [id number], Supply, 180, cm, 02/25/22 10:46:00 EDT, Height/Length Dosing, 187.5, kg, 02/25/22 10:46:00 EDT, Weight Dosing Start: 02-25-2022 Lancets, See Instructions, 1 EA, 11, Lancets, [id number], Supply, 180, cm, 02/25/22 10:46:00 EDT, Height/Length Dosing, 187.5, kg, 02/25/22 10:46:00 EDT, Weight Dosing Start: 02-25-2022 Test strips, See Instructions, 1 EA, 11, Test strips test 3 times a day, [id number], Supply, 180, cm, 02/25/22 10:46:00 EDT, Height/Length Dosing, 187.5, kg, 02/25/22 10:46:00 EDT, Weight Dosing Start: 02-25-2022 Lancets, See Instructions, 1 EA, 11, Lancets, [id number], Supply, 180, cm, 02/25/22 10:46:00 EDT, Height/Length Dosing, 187.5, kg, 02/25/22 10:46:00 EDT, Weight Dosing Start: 02-25-2022 Test strips, See Instructions, 1 EA, 11, Test strips test 3 times a day, [id number], Supply, 180, cm, 02/25/22 10:46:00 EDT, Height/Length Dosing, 187.5, kg, 02/25/22 10:46:00 EDT, Weight Dosing Start: 02-25-2022 Lancets, See Instructions, 1 EA, 11, Lancets, [id number], Supply, 180, cm, 02/25/22 10:46:00 EDT, Height/Length Dosing, 187.5, kg, 02/25/22 10:46:00 EDT, Weight Dosing Start: 02-25-2022 Test strips, See Instructions, 1 EA, 11, Test strips test 3 times a day, [id number], Supply, 180, cm, 02/25/22 10:46:00 EDT, Height/Length Dosing, 187.5, kg, 02/25/22 10:46:00 EDT, Weight Dosing Start: 02-25-2022 Lancets, See Instructions, 1 EA, 11, Lancets, [id number], Supply, 180, cm, 02/25/22 10:46:00 EDT, Height/Length Dosing, 187.5, kg, 02/25/22 10:46:00 EDT, Weight Dosing Start: 02-25-2022 Test strips, See Instructions, 1 EA, 11, Test strips test 3 times a day, [id number], Supply, 180, cm, 02/25/22 10:46:00 EDT, Height/Length Dosing, 187.5, kg, 02/25/22 10:46:00 EDT, Weight Dosing Start: 02-25-2022 Lancets, See Instructions, 1 EA, 11, Lancets, [id number], Supply, 180, cm, 02/25/22 10:46:00 EDT, Height/Length Dosing, 187.5, kg, 02/25/22 10:46:00 EDT, Weight Dosing Start: 02-25-2022 Test strips, See Instructions, 1 EA, 11, Test strips test 3 times a day, [id number], Supply, 180, cm, 02/25/22 10:46:00 EDT, Height/Length Dosing, 187.5, kg, 02/25/22 10:46:00 EDT, Weight Dosing Start: 02-25-2022 Lancets, See Instructions, 1 EA, 11, Lancets, [id number], Supply, 180, cm, 02/25/22 10:46:00 EDT, Height/Length Dosing, 187.5, kg, 02/25/22 10:46:00 EDT, Weight Dosing Start: 02-25-2022 Test strips, See Instructions, 1 EA, 11, Test strips test 3 times a day, [id number], Supply, 180, cm, 02/25/22 10:46:00 EDT, Height/Length Dosing, 187.5, kg, 02/25/22 10:46:00 EDT, Weight Dosing Start: 02-25-2022 Lancets, See Instructions, 1 EA, 11, Lancets, [id number], Supply, 180, cm, 02/25/22 10:46:00 EDT, Height/Length Dosing, 187.5, kg, 02/25/22 10:46:00 EDT, Weight Dosing Start: 02-25-2022 Test strips, See Instructions, 1 EA, 11, Test strips test 3 times a day, [id number], Supply, 180, cm, 02/25/22 10:46:00 EDT, Height/Length Dosing, 187.5, kg, 02/25/22 10:46:00 EDT, Weight Dosing Start: 02-25-2022 Lancets, See Instructions, 1 EA, 11, Lancets, [id number], Supply, 180, cm, 02/25/22 10:46:00 EDT, Height/Length Dosing, 187.5, kg, 02/25/22 10:46:00 EDT, Weight Dosing Start: 02-25-2022 Test strips, See Instructions, 1 EA, 11, Test strips test 3 times a day, [id number], Supply, 180, cm, 02/25/22 10:46:00 EDT, Height/Length Dosing, 187.5, kg, 02/25/22 10:46:00 EDT, Weight Dosing Start: 02-25-2022 Lancets, See Instructions, 1 EA, 11, Lancets, [id number], Supply, 180, cm, 02/25/22 10:46:00 EDT, Height/Length Dosing, 187.5, kg, 02/25/22 10:46:00 EDT, Weight Dosing Start: 02-25-2022 Test strips, See Instructions, 1 EA, 11, Test strips test 3 times a day, [id number], Supply, 180, cm, 02/25/22 10:46:00 EDT, Height/Length Dosing, 187.5, kg, 02/25/22 10:46:00 EDT, Weight Dosing Start: 02-25-2022 Lancets, See Instructions, 1 EA, 11, Lancets, [id number], Supply, 180, cm, 02/25/22 10:46:00 EDT, Height/Length Dosing, 187.5, kg, 02/25/22 10:46:00 EDT, Weight Dosing Start: 02-25-2022 Test strips, See Instructions, 1 EA, 11, Test strips test 3 times a day, [id number], Supply, 180, cm, 02/25/22 10:46:00 EDT, Height/Length Dosing, 187.5, kg, 02/25/22 10:46:00 EDT, Weight Dosing Start: 02-25-2022 Lancets, See Instructions, 1 EA, 11, Lancets, [id number], Supply, 175, cm, 12/21/22 15:49:00 EDT, Height/Length Dosing, 155, kg, 12/21/22 15:49:00 EDT, Weight Dosing Start: 12-21-2022 Test strips, See Instructions, 1 EA, 11, Test strips test 3 times a day, [id number], Supply, 175, cm, 12/21/22 15:49:00 EDT, Height/Length Dosing, 155, kg, 12/21/22 15:49:00 EDT, Weight Dosing Start: 12-21-2022 Lancets, See Instructions, 1 EA, 11, Lancets, [id number], Supply, 175, cm, 12/21/22 15:49:00 EDT, Height/Length Dosing, 155, kg, 12/21/22 15:49:00 EDT, Weight Dosing Start: 12-21-2022 Lancett device, See Instructions, 1 EA, 1, uset to check bs, [id number], Supply, 175, cm, 12/21/22 15:49:00 EDT, Height/Length Dosing, 155, kg, 12/21/22 15:49:00 EDT, Weight Dosing Start: 12-22-2022 Test strips, See Instructions, 1 EA, 11, Test strips test 3 times a day, [id number], Supply, 175, cm, 12/21/22 15:49:00 EDT, Height/Length Dosing, 155, kg, 12/21/22 15:49:00 EDT, Weight Dosing Start: 12-21-2022 Lancets, See Instructions, 1 EA, 11, Lancets, [id number], Supply, 175, cm, 12/21/22 15:49:00 EDT, Height/Length Dosing, 155, kg, 12/21/22 15:49:00 EDT, Weight Dosing Start: 12-21-2022 Lancett device, See Instructions, 1 EA, 1, uset to check bs, [id number], Supply, 175, cm, 12/21/22 15:49:00 EDT, Height/Length Dosing, 155, kg, 12/21/22 15:49:00 EDT, Weight Dosing Start: 12-22-2022 Test strips, See Instructions, 1 EA, 11, Test strips test 3 times a day, [id number], Supply, 175, cm, 12/21/22 15:49:00 EDT, Height/Length Dosing, 155, kg, 12/21/22 15:49:00 EDT, Weight Dosing Start: 12-21-2022 Lancets, See Instructions, 1 EA, 11, Lancets, [id number], Supply, 175, cm, 12/21/22 15:49:00 EDT, Height/Length Dosing, 155, kg, 12/21/22 15:49:00 EDT, Weight Dosing Start: 12-21-2022 Lancett device, See Instructions, 1 EA, 1, uset to check bs, [id number], Supply, 175, cm, 12/21/22 15:49:00 EDT, Height/Length Dosing, 155, kg, 12/21/22 15:49:00 EDT, Weight Dosing Start: 12-22-2022 Test strips, See Instructions, 1 EA, 11, Test strips test 3 times a day, [id number], Supply, 175, cm, 12/21/22 15:49:00 EDT, Height/Length Dosing, 155, kg, 12/21/22 15:49:00 EDT, Weight Dosing Start: 12-21-2022 Lancets, See Instructions, 1 EA, 11, Lancets, [id number], Supply, 175, cm, 12/21/22 15:49:00 EDT, Height/Length Dosing, 155, kg, 12/21/22 15:49:00 EDT, Weight Dosing Start: 12-21-2022 Lancett device, See Instructions, 1 EA, 1, uset to check bs, [id number], Supply, 175, cm, 12/21/22 15:49:00 EDT, Height/Length Dosing, 155, kg, 12/21/22 15:49:00 EDT, Weight Dosing Start: 12-22-2022 Test strips, See Instructions, 1 EA, 11, Test strips test 3 times a day, [id number], Supply, 175, cm, 12/21/22 15:49:00 EDT, Height/Length Dosing, 155, kg, 12/21/22 15:49:00 EDT, Weight Dosing Start: 12-21-2022 Lancets, See Instructions, 1 EA, 11, Lancets, [id number], Supply, 175, cm, 12/21/22 15:49:00 EDT, Height/Length Dosing, 155, kg, 12/21/22 15:49:00 EDT, Weight Dosing Start: 12-21-2022 Lancett device, See Instructions, 1 EA, 1, uset to check bs, [id number], Supply, 175, cm, 12/21/22 15:49:00 EDT, Height/Length Dosing, 155, kg, 12/21/22 15:49:00 EDT, Weight Dosing Start: 12-22-2022 Test strips, See Instructions, 1 EA, 11, Test strips test 3 times a day, [id number], Supply, 175, cm, 12/21/22 15:49:00 EDT, Height/Length Dosing, 155, kg, 12/21/22 15:49:00 EDT, Weight Dosing Start: 12-21-2022 Lancets, See Instructions, 1 EA, 11, Lancets, [id number], Supply, 175, cm, 12/21/22 15:49:00 EDT, Height/Length Dosing, 155, kg, 12/21/22 15:49:00 EDT, Weight Dosing Start: 12-21-2022 Lancett device, See Instructions, 1 EA, 1, uset to check bs, [id number], Supply, 175, cm, 12/21/22 15:49:00 EDT, Height/Length Dosing, 155, kg, 12/21/22 15:49:00 EDT, Weight Dosing Start: 12-22-2022 Test strips, See Instructions, 1 EA, 11, Test strips test 3 times a day, [id number], Supply, 175, cm, 12/21/22 15:49:00 EDT, Height/Length Dosing, 155, kg, 12/21/22 15:49:00 EDT, Weight Dosing Start: 12-21-2022 Lancets, See Instructions, 1 EA, 11, Lancets, [id number], Supply, 175, cm, 12/21/22 15:49:00 EDT, Height/Length Dosing, 155, kg, 12/21/22 15:49:00 EDT, Weight Dosing Start: 12-21-2022 Lancett device, See Instructions, 1 EA, 1, uset to check bs, [id number], Supply, 175, cm, 12/21/22 15:49:00 EDT, Height/Length Dosing, 155, kg, 12/21/22 15:49:00 EDT, Weight Dosing Start: 12-22-2022 Test strips, See Instructions, 1 EA, 11, Test strips test 3 times a day, [id number], Supply, 175, cm, 12/21/22 15:49:00 EDT, Height/Length Dosing, 155, kg, 12/21/22 15:49:00 EDT, Weight Dosing Start: 12-21-2022 Lancets, See Instructions, 1 EA, 11, Lancets, [id number], Supply, 175, cm, 12/21/22 15:49:00 EDT, Height/Length Dosing, 155, kg, 12/21/22 15:49:00 EDT, Weight Dosing Start: 12-21-2022 Lancett device, See Instructions, 1 EA, 1, uset to check bs, [id number], Supply, 175, cm, 12/21/22 15:49:00 EDT, Height/Length Dosing, 155, kg, 12/21/22 15:49:00 EDT, Weight Dosing Start: 12-22-2022 Test strips, See Instructions, 1 EA, 11, Test strips test 3 times a day, [id number], Supply, 175, cm, 12/21/22 15:49:00 EDT, Height/Length Dosing, 155, kg, 12/21/22 15:49:00 EDT, Weight Dosing Start: 12-21-2022 Lancets, See Instructions, 1 EA, 11, Lancets, [id number], Supply, 175, cm, 12/21/22 15:49:00 EDT, Height/Length Dosing, 155, kg, 12/21/22 15:49:00 EDT, Weight Dosing Start: 12-21-2022 Lancett device, See Instructions, 1 EA, 1, uset to check bs, [id number], Supply, 175, cm, 12/21/22 15:49:00 EDT, Height/Length Dosing, 155, kg, 12/21/22 15:49:00 EDT, Weight Dosing Start: 12-22-2022 Test strips, See Instructions, 1 EA, 11, Test strips test 3 times a day, [id number], Supply, 175, cm, 12/21/22 15:49:00 EDT, Height/Length Dosing, 155, kg, 12/21/22 15:49:00 EDT, Weight Dosing Start: 12-21-2022 Lancets, See Instructions, 1 EA, 11, Lancets, [id number], Supply, 175, cm, 12/21/22 15:49:00 EDT, Height/Length Dosing, 155, kg, 12/21/22 15:49:00 EDT, Weight Dosing Start: 12-21-2022 Lancett device, See Instructions, 1 EA, 1, uset to check bs, [id number], Supply, 175, cm, 12/21/22 15:49:00 EDT, Height/Length Dosing, 155, kg, 12/21/22 15:49:00 EDT, Weight Dosing Start: 12-22-2022 Test strips, See Instructions, 1 EA, 11, Test strips test 3 times a day, [id number], Supply, 175, cm, 12/21/22 15:49:00 EDT, Height/Length Dosing, 155, kg, 12/21/22 15:49:00 EDT, Weight Dosing Start: 12-21-2022 Lancets, See Instructions, 1 EA, 11, Lancets, [id number], Supply, 175, cm, 12/21/22 15:49:00 EDT, Height/Length Dosing, 155, kg, 12/21/22 15:49:00 EDT, Weight Dosing Start: 12-21-2022 Lancett device, See Instructions, 1 EA, 1, uset to check bs, [id number], Supply, 175, cm, 12/21/22 15:49:00 EDT, Height/Length Dosing, 155, kg, 12/21/22 15:49:00 EDT, Weight Dosing Start: 12-22-2022 Test strips, See Instructions, 1 EA, 11, Test strips test 3 times a day, [id number], Supply, 175, cm, 12/21/22 15:49:00 EDT, Height/Length Dosing, 155, kg, 12/21/22 15:49:00 EDT, Weight Dosing Start: 12-21-2022 Lancets, See Instructions, 1 EA, 11, Lancets, [id number], Supply, 175, cm, 12/21/22 15:49:00 EDT, Height/Length Dosing, 155, kg, 12/21/22 15:49:00 EDT, Weight Dosing Start: 12-21-2022 Lancett device, See Instructions, 1 EA, 1, uset to check bs, [id number], Supply, 175, cm, 12/21/22 15:49:00 EDT, Height/Length Dosing, 155, kg, 12/21/22 15:49:00 EDT, Weight Dosing Start: 12-22-2022 Test strips, See Instructions, 1 EA, 11, Test strips test 3 times a day, [id number], Supply, 175, cm, 12/21/22 15:49:00 EDT, Height/Length Dosing, 155, kg, 12/21/22 15:49:00 EDT, Weight Dosing Start: 12-21-2022 Lancets, See Instructions, 1 EA, 11, Lancets, [id number], Supply, 175, cm, 12/21/22 15:49:00 EDT, Height/Length Dosing, 155, kg, 12/21/22 15:49:00 EDT, Weight Dosing Start: 12-21-2022 Lancett device, See Instructions, 1 EA, 1, uset to check bs, [id number], Supply, 175, cm, 12/21/22 15:49:00 EDT, Height/Length Dosing, 155, kg, 12/21/22 15:49:00 EDT, Weight Dosing Start: 12-22-2022 Test strips, See Instructions, 1 EA, 11, Test strips test 3 times a day, [id number], Supply, 175, cm, 12/21/22 15:49:00 EDT, Height/Length Dosing, 155, kg, 12/21/22 15:49:00 EDT, Weight Dosing Start: 12-21-2022 Lancets, See Instructions, 1 EA, 11, Lancets, [id number], Supply, 175, cm, 12/21/22 15:49:00 EDT, Height/Length Dosing, 155, kg, 12/21/22 15:49:00 EDT, Weight Dosing Start: 12-21-2022 Lancett device, See Instructions, 1 EA, 1, uset to check bs, [id number], Supply, 175, cm, 12/21/22 15:49:00 EDT, Height/Length Dosing, 155, kg, 12/21/22 15:49:00 EDT, Weight Dosing Start: 12-22-2022 Test strips, See Instructions, 1 EA, 11, Test strips test 3 times a day, [id number], Supply, 175, cm, 12/21/22 15:49:00 EDT, Height/Length Dosing, 155, kg, 12/21/22 15:49:00 EDT, Weight Dosing Start: 12-21-2022 Lancets, See Instructions, 1 EA, 11, Lancets, [id number], Supply, 175, cm, 12/21/22 15:49:00 EDT, Height/Length Dosing, 155, kg, 12/21/22 15:49:00 EDT, Weight Dosing Start: 12-21-2022 Lancett device, See Instructions, 1 EA, 1, uset to check bs, [id number], Supply, 175, cm, 12/21/22 15:49:00 EDT, Height/Length Dosing, 155, kg, 12/21/22 15:49:00 EDT, Weight Dosing Start: 12-22-2022 Test strips, See Instructions, 1 EA, 11, Test strips test 3 times a day, [id number], Supply, 175, cm, 12/21/22 15:49:00 EDT, Height/Length Dosing, 155, kg, 12/21/22 15:49:00 EDT, Weight Dosing Start: 12-21-2022 Lancets, See Instructions, 1 EA, 11, Lancets, [id number], Supply, 175, cm, 12/21/22 15:49:00 EDT, Height/Length Dosing, 155, kg, 12/21/22 15:49:00 EDT, Weight Dosing Start: 12-21-2022 Lancett device, See Instructions, 1 EA, 1, uset to check bs, [id number], Supply, 175, cm, 12/21/22 15:49:00 EDT, Height/Length Dosing, 155, kg, 12/21/22 15:49:00 EDT, Weight Dosing Start: 12-22-2022 Test strips, See Instructions, 1 EA, 11, Test strips test 3 times a day, [id number], Supply, 175, cm, 12/21/22 15:49:00 EDT, Height/Length Dosing, 155, kg, 12/21/22 15:49:00 EDT, Weight Dosing Start: 12-21-2022 Lancets, See Instructions, 1 EA, 11, Lancets, [id number], Supply, 175, cm, 12/21/22 15:49:00 EDT, Height/Length Dosing, 155, kg, 12/21/22 15:49:00 EDT, Weight Dosing Start: 12-21-2022 Lancett device, See Instructions, 1 EA, 1, uset to check bs, [id number], Supply, 175, cm, 12/21/22 15:49:00 EDT, Height/Length Dosing, 155, kg, 12/21/22 15:49:00 EDT, Weight Dosing Start: 12-22-2022 Test strips, See Instructions, 1 EA, 11, Test strips test 3 times a day, [id number], Supply, 175, cm, 12/21/22 15:49:00 EDT, Height/Length Dosing, 155, kg, 12/21/22 15:49:00 EDT, Weight Dosing Start: 12-21-2022 Lancets, See Instructions, 1 EA, 11, Lancets, [id number], Supply, 175, cm, 12/21/22 15:49:00 EDT, Height/Length Dosing, 155, kg, 12/21/22 15:49:00 EDT, Weight Dosing Start: 12-21-2022 Lancett device, See Instructions, 1 EA, 1, uset to check bs, [id number], Supply, 175, cm, 12/21/22 15:49:00 EDT, Height/Length Dosing, 155, kg, 12/21/22 15:49:00 EDT, Weight Dosing Start: 12-22-2022 Test strips, See Instructions, 1 EA, 11, Test strips test 3 times a day, [id number], Supply, 175, cm, 12/21/22 15:49:00 EDT, Height/Length Dosing, 155, kg, 12/21/22 15:49:00 EDT, Weight Dosing Start: 12-21-2022 Lancets, See Instructions, 1 EA, 11, Lancets, [id number], Supply, 175, cm, 12/21/22 15:49:00 EDT, Height/Length Dosing, 155, kg, 12/21/22 15:49:00 EDT, Weight Dosing Start: 12-21-2022 Lancett device, See Instructions, 1 EA, 1, uset to check bs, [id number], Supply, 175, cm, 12/21/22 15:49:00 EDT, Height/Length Dosing, 155, kg, 12/21/22 15:49:00 EDT, Weight Dosing Start: 12-22-2022 Test strips, See Instructions, 1 EA, 11, Test strips test 3 times a day, [id number], Supply, 175, cm, 12/21/22 15:49:00 EDT, Height/Length Dosing, 155, kg, 12/21/22 15:49:00 EDT, Weight Dosing Start: 12-21-2022 Functional Status Date Assessment Result Facility 11-14-2023 Functional Status N/A [facility] 12-21-2022 Functional Status N/A [facility] 12-16-2022 Functional Status No [facility] 12-16-2022 Functional Status [facility] 10-12-2022 Functional Status N/A [facility] 09-03-2022 Functional Status N/A [facility] 07-30-2022 Functional Status N/A [facility] 07-21-2022 Functional Status N/A [facility] 06-21-2022 Functional Status N/A [facility] 04-21-2022 Functional Status N/A [facility] Clinical Notes 07-23-2020 to 02-20-2024 Cezar Bragg DPM FACFAS - 02/20/2024 10:30 AM EDT Note Date & Type Note Facility 02-20-2024 History of Presen t illness Narrative Images from the original note were not included. patient: Lisa Heart : 1980 PCP: [facility] Provider MD Allyson SUBJECTIVE This is a 43 y.o. female diabetic patient presents today chief complaint of painful elongated nails digits 1 through 10 the cause marked limitation in ambulation due to pain and pressure from shoe gear. The patient states he has been attempting to control his blood glucose levels with regular visits to his primary care physician. Allergies: Allergies Allergen Reactions Penicillins Anaphylaxis, Unknown and Swelling tolerated cefepime 04/2020 Acetaminophen Unknown and Hives Propoxyphene Hives and Rash Vancomycin Rash and Unknown Other Reaction(s): Renal Failure Other reaction(s): Renal Failure Past Medical History: Past Medical History: Diagnosis Date Diabetes mellitus ([facility]) Thyroid disease ([facility]) Medications: Current Outpatient Medications: albuterol HFA 90 mcg/act inhaler, INHALE 2 PUFFS 4 TIMES A DAY NEEDED FOR WHEEZING, Disp: , Rfl: ALPRAZolam (Xanax) 1 MG tablet, Take 1 mg by mouth Daily as needed., Disp: , Rfl: isstqhquxwbqhje-kcfjwkfltzjmudq-VX 30-2-10 MG/5ML syrup, TAKE 10 ML BY MOUTH 4 TIMES A DAY NEEDED FOR COUGH AND CONGESTION FOR 10 DAYS, Disp: , Rfl: bumetanide (Bumex) 1 MG tablet, Take 1 mg by mouth in the morning., Disp: , Rfl: EC-Naproxen 500 MG EC tablet, Take 500 mg by mouth in the morning and 500 mg before bedtime., Disp: , Rfl: Eliquis 5 MG tablet, Take 5 mg by mouth in the morning and 5 mg before bedtime., Disp: , Rfl: famotidine (Pepcid) 20 MG tablet, TAKE 1 TABLET BY MOUTH TWICE A DAY AVOID EATING OR DRINKING FOR 10 MINUTES AFTER EACH DOSE, Disp: , Rfl: fluconazole (Diflucan) 100 MG tablet, TAKE 1 TABLET BY MOUTH EVERY DAY FOR 7 DAYS, Disp: , Rfl: hydrOXYzine HCl (Atarax) 25 MG tablet, TAKE 1 TO 2 TABLETS BY MOUTH EVERY DAY AT BEDTIME NEEDED 30, Disp: , Rfl: levothyroxine (Synthroid, Levoxyl) 25 MCG tablet, TAKE 1 TABLET ON AN EMPTY STOMACH FROM OTHER MEDS/VITAMINS/FOOD BY 60 MINUTES ONCE A DAY, Disp: , Rfl: metFORMIN XR (Glucophage-XR) 500 MG 24 hr tablet, Take 500 mg by mouth in the evening. Take with meals., Disp: , Rfl: mupirocin (Bactroban) 2 % ointment, APPLY TO AFFECTED AREA 3 TIMES A DAY, Disp: , Rfl: sertraline (Zoloft) 50 MG tablet, TAKE 1 TABLET BY MOUTH EVERY DAY FOR 30 DAYS, Disp: , Rfl: Review of systems: Constitutional: Denies fever, chills, nausea, vomiting GI: Denies abdominal pain, cramping, loose stool, gastric ulcers Musculoskeletal: Denies low back pain, knee pain, systemic arthritis Neurologic: Denies burning, tingling, transient paralysis OBJECTIVE Physical Examination: DERM: Positive hair growth to b/l feet with good skin turgor noted. Negative openings in skin. No macerations noted interdigitally. Web spaces were clean and dry. No ulcerations were noted. Nails 1 through 10 were thickened elongated yellow and crumbly with subungual debris. They were painful to palpation [id number] on the right [id number] on the left. VASC: DP /PT were nonpalpable bilateral. Capillary refill time < 3 seconds Digits 1-5 bilateral NEURO: Lewellen Keshia 5.07 monofilament was diminished B/L. Vibratory sensation was diminished b/l. Mild peripheral neuropathy noted in a stocking-glove orientation Musculoskeletal: Muscle strength was +5 over 5 all intrinsic and extrinsic muscles tested. Radiographs: AP/MO/LAT: Diagnostic ultrasound: ASSESSMENT 1. Onychomycosis 2. Type II diabetes mellitus with neurological manifestations (CMS/HCC) 3. Pain in left toe(s) 4. Pain in right toe(s) PLAN The patient was educated on proper diabetic foot care. There educated on the etiology of onychomycosis. Also educated on performing regular inspections of the feet. We discussed routine visits to her primary care physician to monitor the glucose levels as well. Today the nails were debrided both in length and thickness 1 through 10. Cezar Bragg DPM FACMICHELLE documented in this encounter [facility] 11-14-2023 Evaluation + Plan note Extrac val from: Title:ED Note Author:Jack Young DO Date :11/14/23 Pain, dental (K08.89: Other specified disorders of teeth and supporting structures) Orders: benzocaine topical, 1 angel, Gel, Topical, QID for 30 day(s), Stop date 12/14/23 0:36:00 EDT, STAT, Start date 11/14/23 0:37:00 EDT clindamycin, 450 mg = 3 cap(s), Cap, Oral, Once, Stop date 11/14/23 0:37:00 EDT, STAT, Start date 11/14/23 0:37:00 EDT, 11/14/23 0:37:00 EDT clindamycin, 450 mg = 3 cap(s), Oral, TID, X 7 day(s), # 63 cap(s), Refills(s) 0, Pharmacy: [id number], 175, cm, 11/14/23 0:31:00 EDT, Height/Length Dosing, 116.9, kg, 11/14/23 0:31:00 EDT, Weight Dosing ketorolac, 30 mg = 1 mL, Injection, IntraMuscular, Once, Stop date 11/14/23 0:37:00 EDT, STAT, Start date 11/14/23 0:37:00 EDT, 11/14/23 0:37:00 EDT lidocaine topical, 200 mg, 10 mL, Soln-Oral, Oral, Once, Stop date 11/14/23 0:37:00 EDT, STAT, Start date 11/14/23 0:37:00 EDT Future Appointments Appointment Date:10/11/2024 02:20:00 PM Scheduled Provider:Mino Asencio DO Location:[facility].ONCOLOGY Appointment Type:ONC Office Visit 30 (FT) Future Scheduled Tests Laboratory* CBC w/ Auto Diff 04/07/24 * CBC w/ Auto Diff 10/12/24 * Comprehensive Metabolic Panel 04/07/24 * Comprehensive Metabolic Panel 10/12/24 * Ferritin 10/12/24 * Folate Level 10/12/24 * Iron Level 10/12/24 * Iron Percent Saturation 10/12/24 * Lactate Dehydrogenase 10/12/24 * Transferrin 10/12/24 * Vitamin B12 Level 10/12/24 [facility]07-08-2024 Hospital Discharge instructions Patient Education 11/14/2023 00:55:46 Dental Pain Dental Pain Dental pain is often a sign that something is wrong with your teeth or gums. It is also something that can occur following dental treatment. If you have dental pain, it is important to contact your dental care provider, especially if the cause of the pain has not been determined. Dental pain may beof varying intensity and can be caused by many things, including: Tooth decay (cavities or caries). Cavities are caused by bacteria that produce acids that irritate the nerve of your tooth, making it sensitive to air and hot or cold temperatures. This eventually causes discomfort or pain. Abscess or infection. Once the bacteria reach the inner part of the tooth (pulp), a bacterial infection (dental abscess) can occur. Pus typically collects at the end of the root of a tooth. Injury. A crack in the tooth. Gum recession exposing the root, and possibly the nerves, of a tooth. Gum (periodontal)disease. Abnormal grinding or clenching. Poor or improper home care. An unknown reason (idiopathic). Your pain may be mild or severe. It may occur when you are: Chewing. Exposed to hot or cold temperatures. Eating or drinking sugary foods or beverages, such as soda or candy. Your pain may be constant, or it may come and go without cause. Follow these instructions at home: The following actions may help to lessen any discomfort that you are feeling before or after getting dental care. Medicines Take zowk-oql-gtekobq and prescription medicines only as told by your dental care provider. If you were prescribed an antibiotic medicine, take it as told by your dental care provider. Do notstop taking the antibiotic even if you start to feel better. Eating and drinking Avoid foods or drinks that cause you pain, such as: Very hot or very cold foods or drinks. Sweet or sugary foods or drinks. Managing pain and swelling Ice can sometimes be used to reduce pain and swelling, especially if the pain is following dental treatment. If directed, put ice on the painful area of your face. To do this: ?Put ice in a plastic bag. ?Place a towel between your skin and the bag. ?Leave the ice on for 20 minutes, 2 3 times a day. ?Remove the ice if your skin turns bright red. This is very important. If you cannot feel pain, heat, or cold, you have a greater risk of damage to the area. Brushing your teeth To keep your mouth and gums healthy, brush your teeth twice a day using a fluoride toothpaste. Use a toothpaste made for sensitive teeth as directed by your dental care provider, especially if the root is exposed. Always brush your teeth with a soft-bristled toothbrush. This will help prevent irritation to your gums. General instructions Floss at least once a day. Do not apply heat to the outside of the face. Gargle with a mixture of salt and water 3 4 times a day or as needed. To make salt water, completely dissolve 1 tsp (3 6 g) of salt in 1 cup (237 mL) of warm water. Keep all follow-up visits. This is important. Contact a dental care provider if: You have any unexplained dental pain. Your pain is not controlled with medicines. Your symptoms get worse. You have new symptoms. Get help right away if: You are unable to open your mouth. You are having trouble breathing or swallowing. You have a fever. You notice that your face, neck, or jaw is swollen. These symptoms may represent a serious problem that is an emergency. Do not wait to see if the symptoms will go away. Get medical help right away. Call your local emergency services (911 in the [place] Do not drive yourself to the hospital. Summary Dental pain may be caused by many things, including tooth decay and infection. Your pain may be mild or severe. Take xzne-xao-fdfpnfj and prescription medicines only as told by your dental care provider. Watch your dental pain for any changes. Let your dental care provider know if your symptoms get worse. This information is not intended to replace advice given to you by your health care provider. Make sure you discuss any questions you have with your health care provider. Document Revised: 01/28/2021 Document Reviewed: 01/28/2021 [employer] Patient Education 2022 [employer]. Follow Up Care 11/14/2023 00:23:33 With:Dental: [facility] [phone] Address:Unknown When:11/17/2023 With:Dental: [facility] [phone] Address:Unknown When:11/17/2023 With:Dental: [facility] [phone] Address:Unknown When:11/17/2023 With:[facility] Address: [address] [place] [address] [place] [address] Business (1) When:11/16/2023 [facility]07-08-2024 NoteED Patient Education Note Dentistry Dental Pain Dental pain is often a sign that something is wrong with your teeth or gums. It is also something that can occur following dental treatment. If you have dental pain, it is important to contact your dental care provider, especially if the cause of the pain has not been determined. Dental pain may beof varying intensity and can be caused by many things, including: ? Tooth decay (cavities or caries). Cavities are caused by bacteria that produce acids that irritate the nerve of your tooth, making it sensitive to air and hot or cold temperatures. This eventually causes discomfort or pain. ? Abscess or infection. Once the bacteria reach the inner part of the tooth (pulp), a bacterial infection (dental abscess) can occur. Pus typically collects at the end of the root of a tooth. ? Injury. ? A crack in the tooth. ? Gum recession exposing the root, and possibly the nerves, of a tooth. ? Gum (periodontal)disease. ? Abnormal grinding or clenching. ? Poor or improper home care. ? An unknown reason (idiopathic). Your pain may be mild or severe. It may occur when you are: ? Chewing. ? Exposed to hot or cold temperatures. ? Eating or drinking sugary foods or beverages, such as soda or candy. Your pain may be constant, or it may come and go without cause. Follow these instructions at home: The following actions may help to lessen any discomfort that you are feeling before or after getting dental care. Medicines ? Take lipn-fkf-ypmbxms and prescription medicines only as told by your dental care provider. ? If you were prescribed an antibiotic medicine, take it as told by your dental care provider. Do not stop taking the antibiotic even if you start to feel better. Eating and drinking Avoid foods or drinks that cause you pain, such as: ? Very hot or very cold foods or drinks. ? Sweet or sugary foods or drinks. Managing pain and swelling ? Ice can sometimes be used to reduce pain and swelling, especially if the pain is following dentaltreatment. ? If directed, put ice on the painful area of your face. To do this: ? Put ice in a plastic bag. ? Place a towel between your skin and the bag. ? Leave the ice on for 20 minutes, 2?3 times a day. ? Remove the ice if your skin turns bright red. This is very important. If you cannot feel pain, heat, or cold, you have a greater risk of damage to the area. Brushing your teeth ? To keep your mouth and gums healthy, brush your teeth twice a day using a fluoride toothpaste. ? Use a toothpaste made for sensitive teeth as directed by your dental care provider, especially ifthe root is exposed. ? Always brush your teeth with a soft-bristled toothbrush. This will help prevent irritation to your gums. General instructions ? Floss at least once a day. ? Do not apply heat to the outside of the face. ? Gargle with a mixture of salt and water 3?4 times a day or as needed. To make salt water, completely dissolve ??1 tsp (3?6 g) of salt in 1 cup (237 mL) of warm water. ? Keep all follow-up visits. This is important. Contact a dental care provider if: ? You have any unexplained dental pain. ? Your pain is not controlled with medicines. ? Your symptoms get worse. ? You have new symptoms. Get help right away if: ? You are unable to open your mouth. ? You are having trouble breathing or swallowing. ? You have a fever. ? You notice that your face, neck, or jaw is swollen. These symptoms may represent a serious problem that is an emergency. Do not wait to see if the symptoms will go away. Get medical help right away. Call your local emergency services (911 in the [place] Do not drive yourself to the hospital. Summary ? Dental pain may be caused by many things, including tooth decay and infection. ? Your pain may be mild or severe. ? Take ifio-yxj-hhvbsmt and prescription medicines only as told by your dental care provider. ? Watch your dental pain for any changes. Let your dental care provider know if your symptoms get worse. This information is not intended to replace advice given to you by your health care provider. Make sure you discuss any questions you have with your health care provider. Document Revised: 01/28/2021 Document Reviewed: 01/28/2021 [employer] Patient Education ? 2022 [employer].[facility] 04-07-2023 Hospital Discharge instructions Follow Up Care 04/07/2023 14:27:06 With:Mino Asencio DO, ONC Address: [facility] [address] [place] [address] [phone] Fax Business (1) When: Unknown Comments:f/u in a year.cbc, cmp, ldh, iron studies, folic acid, b12, ldh prio rto f/u. [facility] Patient [facility] CHIEF COMPLAINT Chief Complaint Patient presents with Follow-up PT REPORTS NO IMPROVEMENT IN SYMPTOMS. HISTORY OF PRESENT ILLNESS: Lisa Heart is a 42 y.o. female who presents as a new patient, referred by bariatric surgery, Dr. Childress, for evaluation of dysphagia, nausea and newly diagnosed cirrhosis. Patient reports feeling unwell since undergoing laparoscopic sleeve gastrectomy 10/25/2022. Reports that since then, she has had multiple interventions with limited findings or improvement in symptoms. Upon further chart review, patient had an EGD with dilation up to 19 mm due to gastric stricture 11/05/3033 and XR upper GI with air contrast on 11/29/2022. Further procedure details are listed below. Today, she reports that she is unable to eat or drink, although can take pills with sips of water. She reports intermittent abdominal discomfort localized to the left side. Notes normal BMs, denies constipation, diarrhea, hematochezia or melena. She currently has a PICC line for TPN. She was recently diagnosed with cirrhosis s/p liver biopsy during bariatric surgery. 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 Denies current alcohol consumption, although admits to having drank socially in the past. No tobacco or marijuana use. INTERVAL HISTORY 02/03/2023: Patient presents today in follow-up. Since last visit she underwent EGD with 20 mm balloon dilation 01/31/2023. Also noted to have a few small erosions at the GE junction, biopsies showing reflux esophagitis. Today she reports that dysphagia has slightly improved after dilation but experiencing continued heartburn, regurgitation, and intermittent epigastric pain. Admits that symptoms worsen with spicy and citrus foods. Currently taking Protonix 40 mg once daily and has been following a soft diet. At previous visit chronic liver workup was ordered, in which was all unremarkable. Most recent LFTs (01/27/2023): AST 27, ALT 13, alk phos 89, and total bilirubin 0.7. US with elastrography scheduled for 02/10/2023. Patient denies symptoms of decompensation in the forms of jaundice, scleral icterus, confusion, hematemesis, abdominal distention/swelling, melena, and hematochezia. Of note, patient recently hospitalized 01/07/2023 at [facility] for septic shock with tachycardia, hypotension with pressor requirement, and leukocytosis, in which was thought to be 2/2 CLABSI. She received broad-spectrum antibiotics along with anti-fungal coverage. Her PICC line was discontinued with cultures positive for Klebsiella. Patient was discharged and sent to [facility]. INTERVAL HISTORY 03/03/2023: Pt presents today for follow up. She reports that she continues to have ongoing heartburn and things feel stuck when she eats. After last visit she increased Protonix to BID and used Carafate with no improvement. Pt had ultrasound with elastography on 02/10/2023 which revealed morphologic findings consistent with early cirrhosis with no masses seen and elastography findings that corresponds to (F3) grading of fibrosis. Patient denies symptoms of decompensation in the forms of jaundice, scleral icterus, confusion, hematemesis, abdominal distention/swelling, melena, and hematochezia. Results reviewed with patient and family. Pt would also like her records resent to Dr. Childress so they can proceed with her planned surgery. PREVIOUS LABS/IMAGING/ENDOSCOPY: US LIVER WITH ELASTOGRAPHY 02/10/2023 9:47 AM CLINICAL INDICATIONS: FINDINGS: LIVER: Echogenicity: Heterogeneous and somewhat increased Echotexture: Heterogeneous Contour: Somewhat nodular Size: Small Mass: No masses seen Renal vein: Hepatopedal flow. Flow velocity is 20.3 cm/s Gallbladder not visualized. Pancreas: Not visualized elastography conducted. Mean tissue stiffness: 9.95 kPa Median tissue stiffness: 9.52 kPa E IQR/MEAN: 45.6% Findings corresponds to severe (F3) grading of fibrosis. Upper, the elevated E IQR/MEAN indicates decreased specificity and accuracy of measurements IMPRESSION: *Morphologic findings consistent with early cirrhosis *Elastography findings corresponds to severe (F3) grading of fibrosis. Upper, the elevated E IQR/MEAN indicates decreased specificity and accuracy of measurements EGD with balloon dilation 01/31/2023: Impression: Few small erosions noted at the GE junction. Biopsies were obtained distal esophagus to rule out reflux esophagitis and the from the proximal esophagus to rule out EOE. Slight resistance was encountered at the level of the GE junction which was noted at 38 cm from the incisors. The site was dilated with a 20 mm CRE balloon dilator. Small shallow intended laceration was noted at the GE junction after balloon dilation. Signs of gastric sleeve was noted. Normal examination of the duodenum. Recommendations: Follow-up histopathology results. Further plan depends upon the (more content not included)...[facility]09-28-2023 Formerly [facility] Gastroenterology Follow-Up Patient Visit CHIEF COMPLAINT Chief Complaint Patient presents with Follow-up No concerns HISTORY OF PRESENT ILLNESS: Lisa Heart is a 42 y.o. female who presents as a new patient, referred by bariatric surgery, Dr. Childress, for evaluation of dysphagia, nausea and newly diagnosed cirrhosis. Patient reports feeling unwell since undergoing laparoscopic sleeve gastrectomy 10/25/2022. Reports that since then, she has had multiple interventions with limited findings or improvement in symptoms. Upon further chart review, patient had an EGD with dilation up to 19 mm due to gastric stricture 11/05/3033 and XR upper GI with air contrast on 11/29/2022. Further procedure details are listed below. Today, she reports that she is unable to eat or drink, although can take pills with sips of water. She reports intermittent abdominal discomfort localized to the left side. Notes normal BMs, denies constipation, diarrhea, hematochezia or melena. She currently has a PICC line for TPN. She was recently diagnosed with cirrhosis s/p liver biopsy during bariatric surgery. 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 Denies current alcohol consumption, although admits to having drank socially in the past. No tobacco or marijuana use. INTERVAL HISTORY 02/03/2023: Patient presents today in follow-up. Since last visit she underwent EGD with 20 mm balloon dilation 01/31/2023. Also noted to have a few small erosions at the GE junction, biopsies showing reflux esophagitis. Today she reports that dysphagia has slightly improved after dilation but experiencing continued heartburn, regurgitation, and intermittent epigastric pain. Admits that symptoms worsen with spicy and citrus foods. Currently taking Protonix 40 mg once daily and has been following a soft diet. At previous visit chronic liver workup was ordered, in which was all unremarkable. Most recent LFTs (01/27/2023): AST 27, ALT 13, alk phos 89, and total bilirubin 0.7. US with elastrography scheduled for 02/10/2023. Patient denies symptoms of decompensation in the forms of jaundice, scleral icterus, confusion, hematemesis, abdominal distention/swelling, melena, and hematochezia. Of note, patient recently hospitalized 01/07/2023 at [facility] for septic shock with tachycardia, hypotension with pressor requirement, and leukocytosis, in which was thought to be 2/2 CLABSI. She received broad-spectrum antibiotics along with anti-fungal coverage. Her PICC line was discontinued with cultures positive for Klebsiella. Patient was discharged and [facility]. PREVIOUS LABS/IMAGING/ENDOSCOPY: EGD with balloon dilation 01/31/2023: Impression: Few small erosions noted at the GE junction. Biopsies were obtained distal esophagus to rule out reflux esophagitis and the from the proximal esophagus to rule out EOE. Slight resistance was encountered at the level of the GE junction which was noted at 38 cm from the incisors. The site was dilated with a 20 mm CRE balloon dilator. Small shallow intended laceration was noted at the GE junction after balloon dilation. Signs of gastric sleeve was noted. Normal examination of the duodenum. Recommendations: Follow-up histopathology results. Further plan depends upon the histopathology results. Final Diagnosis A. Esophagus, distal, biopsy: - Reflux esophagitis in junctional mucosa with focal activity - No intestinal metaplasia, dysplasia, or malignancy identified B. Esophagus, proximal, biopsy: - No significant pathologic findings in squamous mucosa XR upper GI with air contrast 11/29/2022: Delayed emptying of the distal esophageal contents into the narrow stomach remnant. This did reproduce the patients pain. There does appear to be some narrowing at GE junction which is smooth and short segment. Gastroesophogeal reflux was also noted. EGD with dilation 11/05/2022 (Dr. Jeffery): Findings: Anatomy consistent with sleeve gastrectomy, no gastroesophogeal junction pathology appreciated such as hiatal hernia or esophagitis, angulation of the stomach at the angularis consistent with gastric stricture, balloon dilation performed up to 19 mm diameter and 4.5 atomospheres of pressure with an 18-20mm ballon, normal antrum, pylorus, and duodenum. HISTORY: Problem list: There is no problem list on file for this patient. Past Medical History: Past Medical History: Diagnosis Date Cirrhosis (CMS/HCC) Dysphagia GERD (gastroesophageal reflux disease) Past Surgical History: Past Surgical History: Procedure Laterality Date BARIATRIC SURGERY CT GUIDED PERCUTANEOUS BIOPSY BONE DEEP 05/14/2020 CT GUIDED PERCUTANEOUS BIOPSY BONE DEEP 05/14/2020 CT GUIDED PERCUTANEOUS BIOPSY BONE DEEP 05/05/2020 CT GUIDED PERCUTANEOUS BIOPSY BONE DEEP 05/05/2020 HERNIA REPAIR UPPER GASTROINTESTINAL ENDOSCOPY FAMILY HISTORY: No family history on file. SOCIAL HISTORY: Socia (more content not included)...[facility] 01-31-2023 NotePatient: Lisa Heart Procedure Summary Date: 01/31/23 Room / Location: [facility] Anesthesia Start: 832 Anesthesia Stop: 906 Procedure: EGD Diagnosis: Dysphagia, unspecified type Scheduled Providers: Arminda Segal MD; Morena Naik MD; COLIN Teague Responsible Provider: Morena Naik MD Anesthesia Type: MAC ASA Status: 3 Anesthesia Type: MAC Vitals Value Taken Time BP 101/61 01/31/23 0920 Temp 36.3 01/31/23 0932 Pulse 88 01/31/23 0920 Resp 16 01/31/23919 SpO2 96 % 01/31/23919 Anesthesia Post Evaluation Patient location during evaluation: PACU Patient participation: complete - patient participated Level of consciousness: awake Pain score: 0 Pain management: adequate Airway patency: patent Cardiovascular status: acceptable Respiratory status: acceptable Patient is hemodynamically stable and is able to be discharged from PACU per anesthesia protocol. No notable events documented.[facility]09-25-2023 Note Patient: Lisa Heart Procedure Information Date/Time: 01/31/23 0900 Scheduled providers: Arminda Segal MD; Morena Naik MD; COLIN Teague Procedure: EGD Location: [facility] Past Medical History: Diagnosis Date ??? Cirrhosis (CMS/HCC) ??? Dysphagia ??? GERD (gastroesophageal reflux disease) Relevant Problems No relevant active problems Clinical information reviewed: Tobacco Allergies Meds Med Hx Surg Hx OB Status Fam Hx Soc Hx Physical Exam Anesthesia Plan ASA 3 MAC The patient is not a current smoker. Patient was not previously instructed to abstain from smoking on day of procedure. Patient did not smoke on day of procedure. Education provided regarding risk of obstructive sleep apnea. intravenous induction Anesthetic plan and risks discussed with patient. Plan discussed with CAA. [facility] Dis[facility] instructions Patient Education 01/04/2023 15:05:42 Dr Borja's Instructions ONC (CUSTOM) Dr. Borja s instructions for 01/04/23 1. For nausea, start the olanzapine which you will dissolve on your tongue. Take it in the evening - it can cause sleepiness but this should wear off by the next morning. Continue to take the ondansetron - it works in a different way than the olanzapine does. 2. For pain, use 2 of the fentanyl patches you have at home together. We will re-evaluate in 5-7 days for further dose increase if needed. I will send a few more to your pharmacy. PLEASE NOTE THE ORDER ON THE BOX OF PATCHES WILL SAY 1 PATCH - THIS IS TO AVOID DELAYS WITH YOUR INSURANCE. 3. Your sleep should improve with better pain control, but you can also take one of your hydroxyzine at bedtime until you get the olanzapine. I'd recommend not using both hydroxyzine and olanzapine on the same night, at least for now. 4. Follow up in [address] Borja during business hours, please call the oncology office at [phone] and speak with a manager rn case (Adela Law). After hours, please call the main hospital bridge operator at [phone] and you will be connected to Dr. Borja. [facility]08-23-2023 NoteFollow up call made. Pt reports that she has a UTI and PICC line infection, cancelled tomorrows EGD with dilation. She is getting direct admitted to the hospital. She will follow up when her health improves.[facility]08-21-2023 NoteMedications to take AM day of procedure with sips water only: BRING INHALER FAMOTIDINE HYDROXYZINE HYOSYAMINE LEVOTHYROXINE METOPROLOL OMEPRAZOLE ALL PAIN MEDS SERTRALINE Medication Hold instructions: ELIQUIS HELD 12/26/22 PER PATIENT NSAIDs (Motrin,Aleve): 5 days prior to procedure Vitamins/Supplements: 5 days prior to procedure IF YOU ARE GOING HOME AFTER YOUR SURGERY OR PROCEDURE, FOR YOUR SAFETY, YOUR SURGERY WILL BE CANCELLED IF BOTH OF THE FOLLOWING ARE NOT AVAILABLE: An adult class a regional drivers over the age of 18, that can receive information about your care after surgery, and drive you home. A responsible adult to stay with you for 24 hours in case of an emergency. Can be same as above. The highest risk of complications is within the first 24 hours after sedation/anesthesia. Nothing to eat or drink after midnight the night before surgery. This includes gum, candy, mints, and lozenges. No alcohol, marijuana, or tobacco products including vaping for 24 hours. Please brush your teeth; don't swallow the toothpaste or water. If you use dentures, wear them but do not use paste. Please leave any other removable dental hardware at home. Do not put in contact lenses. Do not wear perfume, make-up, nail kazakh, or lotions on the day of your surgery or procedure. Follow skin-prep/wipe instructions as below if required. Bring with you: *Insurance card *Photo ID *Medication list *Co-pay for visit/prescriptions If applicable: *Rescue inhalers *Green bracelet from lab *CPAP or BiPAP machine, if staying overnight *Any braces, splints, or equipment ordered preoperatively *Remote controls for implanted devices Leave at home: *Purse/Wallet/Rodríguez- unless needed for co-pay *Cell phone (can leave with family/friend or place in locker if needed) *Jewelry (including piercings and wedding bands) *If not possible, ask the person who is waiting with you to keep them Children under the age of 12 will not be allowed into patient care areas. We will call you between 3pm and 4pm the day before your surgery to give you an arrival time. If you do not receive this call, have any questions, or need to make any changes, please call [phone]. Notify your surgeon if you develop any illness such as a cold, cough, fever, sore throat or vomiting between now and your surgery. Thank you for entrusting us with your care. [facility] Note [facility] Gastroenterology New Patient Visit - History & Physical CHIEF COMPLAINT Chief Complaint Patient presents with New Patient Referred for abnormal liver results HISTORY OF PRESENT ILLNESS: Lisa Heart is a 42 y.o. female who presents for evaluation of dysphagia, nausea and newly diagnosed cirrhosis. Patient reports feeling unwell since undergoing staging laparoscopic sleeve gastrectomy, she reports that she has had multiple interventions with limited findings or improvement. Upon further chart review, pt had an EGD with dilation on 11/05/3033 and XR upper GI with air contrast on 11/29/2022. Further procedure details are listed below. Today, she reports that she is unable to eat or drink, can take pills with sips of water. She reports intermittent abdominal discomfort localized to the left side. Pt reports normal BM's, denies constipation, diarrhea, hematochezia or melena. Pt has had a PICC line placed for TPN. She was recently diagnosed with cirrhosis s/p liver biopsy during bariatric surgery. 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 She is classified as Child-Puentes class A. Denies current alcohol consumption, drank socially in the past but has discontinued. No tobacco or marijuana use. Pt reports that she went to [facility] over the weekend for chest pain, pt reports CT and labs were completed and were negative- they attributed her symptoms to ongoing dysphagia. Will request records from outlying facility. 10/25/2022: Pt had staging laparoscopic sleeve gastrectomy, repair of umbilical hernia and percutaneous liver biopsy that revealed cirrhosis. 11/05/2022: EGD performed at [facility] by Mignon Childress. Findings: Anatomy consistent with sleeve gastrectomy, no gastroesophogeal junction pathology appreciated such as hiatal hernia or esophagitis, angulation of the stomach at the angularis consistent with gastric stricture, balloon dilation performed up to 19 mm diameter and 4.5 atomospheres of pressure with an 18-20mm ballon, normal antrum, pylorus, and duodenum. 11/29/2022: XR upper GI with air contrast, Findings are as follows: Delayed emptying of the distal esophageal contents into the narrow stomach remnant. This did reproduce the patients pain. There does appear to be some narrowing at GE junction which is smooth and short segment. Gastroesophogeal reflux was also noted. PREVIOUS LABS/IMAGING/ENDOSCOPY: 10/25/2022: Pt had Staging laparoscopic sleeve gastrectomy, repair of umbilical hernia and percutaneous liver biopsy that revealed cirrhosis. 11/05/2022: EGD performed at [facility] by Mignon Childress. Findings: Anatomy consistent with sleeve gastrectomy, no gastroesophogeal junction pathology appreciated such as hiatal hernia or esophagitis, angulation of the stomach at the angularis consistent with gastric stricture, balloon dilation performed up to 19 mm diameter and 4.5 atomospheres of pressure with an 18-20mm ballon, normal antrum, pylorus, and duodenum. 11/29/2022: XR upper GI with air contrast, Findings are as follows: Delayed emptying of the distal esophageal contents into the narrow stomach remnant. This did reproduce the patients pain. There does appear to be some narrowing at GE junction which is smooth and short segment. Gastroesophogeal reflux was also noted. HISTORY: Problem list: There is no problem list on file for this patient. Past Medical History: No past medical history on file. Past Surgical History: Past Surgical History: Procedure Laterality Date CT GUIDED PERCUTANEOUS BIOPSY BONE DEEP 05/14/2020 CT GUIDED PERCUTANEOUS BIOPSY BONE DEEP 05/14/2020 CT GUIDED PERCUTANEOUS BIOPSY BONE DEEP 05/05/2020 CT GUIDED PERCUTANEOUS BIOPSY BONE DEEP 05/05/2020 FAMILY HISTORY: No family history on file. SOCIAL HISTORY: Social History Tobacco Use Smoking status: Never Smokeless tobacco: Never Substance Use Topics Alcohol use: Not Currently Drug use: Never ALLERGIES: Penicillins, Acetaminophen, Darvocet a500 [propoxyphene n-acetaminophen], Piperacillin-tazobactam, Propoxyphene, and Vancomycin Current Medications: Current Outpatient Medications: metoprolol tartrate (Lopressor) 25 mg tablet, Take 25 mg by mouth twice a day., Disp: , Rfl: albuterol 90 mcg/actuation inhaler, INHALE 2 PUFFS 4 TIMES A DAY NEEDED FOR WHEEZING, Disp: , Rfl: Eliquis 5 mg tablet, Take 5 mg by mouth in the morning and at bedtime., Disp: , Rfl: enoxaparin (Lovenox) 80 mg/0.8 mL syringe, INJECT 0.8ML (80MG) SUBQ TWICE A DAY, Disp: , Rfl: famotidine (Pepcid) 20 mg tablet, TAKE 1 TABLET TWICE A DAY, AVOID EATING AND DRINKING FOR 10 MINUTES AFTER EACH DOSE, Disp: , Rfl: FreeStyle Lite Meter kit, See administration instructions., Disp: , Rfl: FreeStyle Lite Strips strip, TEST 3 TIMES DAILY DIRECTED, Disp: , Rfl: HYDROcodone-acetaminophen (Hycet) 7.5-325 mg/15 mL solution, , Disp: , Rfl: hydrOXYzine HCL (more content not included)...[facility]08-11-2023 Hospital Discharge instructions Patient Education 12/17/2022 13:11:53 Nonspecific Chest Pain, Adult Nonspecific Chest Pain, Adult Chest pain is an uncomfortable, tight, or painful feeling in the chest. The pain can feel like a crushing, aching, or squeezing pressure. A person can feel a burning or tingling sensation. Chest paincan also be felt in your back, neck, jaw, shoulder, or arm. This pain can be worse when you move, sneeze, or take a deep breath. Chest pain can be caused by a condition that is life-threatening. This must be treated right away. It can also be caused by something that is not life- threatening. If you have chest pain, it can be hard to know the difference, so it is important to get help right away to make sure that you do not have a serious condition. Some life-threatening causes of chest pain include: Heart attack. A tear in the body's main blood vessel (aortic dissection). Inflammation around your heart (pericarditis). A problem in the lungs, such as a blood clot (pulmonary embolism) or a collapsed lung (pneumothorax). Some non life-threatening causes of chest pain include: Heartburn. Anxiety or stress. Damage to the bones, muscles, and cartilage that make up your chest wall. Pneumonia or bronchitis. Shingles infection (varicella-zoster virus). Your chest pain may come and go. It may also be constant. Your health care provider will do tests and other studies to find the cause of your pain. Treatment will depend on the cause of your chest pain. Follow these instructions at home: Medicines Take zmyk-qmq-oulpipi and prescription medicines only as told by your health care provider. If you were prescribed an antibiotic medicine, take it as told by your health care provider. Do notstop taking the antibiotic even if you start to feel better. Activity Avoid any activities that cause chest pain. Do not lift anything that is heavier than 10 lb (4.5 kg), or the limit that you are told, until your health care provider says that it is safe. Rest as directed by your health care provider. Return to your normal activities only as told by your health care provider. Ask your health care provider what activities are safe for you. Lifestyle Do not use any products that contain nicotine or tobacco, such as cigarettes, e- cigarettes, and chewing tobacco. If you need help quitting, ask your health care provider. Do not drink alcohol. Make healthy lifestyle changes as recommended. These may include: ?Getting regular exercise. Ask your health care provider to suggest some exercises that are safe for you. ?Eating a heart-healthy diet. This includes plenty of fresh fruits and vegetables, whole grains, low-fat (lean) protein, and low-fat dairy products. A dietitian can help you find healthy eating options. ?Maintaining a healthy weight. ?Managing any other health conditions you may have, such as high blood pressure (hypertension) or diabetes. ?Reducing stress, such as with yoga or relaxation techniques. General instructions Pay attention to any changes in your symptoms. It is up to you to get the results of any tests that were done. Ask your health care provider, or the department that is doing the tests, when your results will be ready. Keep all follow-up visits as told by your health care provider. This is important. You may be asked to go for further testing if your chest pain does not go away. Contact a health care provider if: Your chest pain does not go away. You feel depressed. You have a fever. You notice changes in your symptoms or develop new symptoms. Get help right away if: Your chest pain gets worse. You have a cough that gets worse, or you cough up blood. You have severe pain in your abdomen. You faint. You have sudden, unexplained chest discomfort. You have sudden, unexplained discomfort in your arms, back, neck, or jaw. You have shortness of breath at any time. You suddenly start to sweat, or your skin gets clammy. You feel nausea or you vomit. You suddenly feel lightheaded or dizzy. You have severe weakness, or unexplained weakness or fatigue. Your heart begins to beat quickly, or it feels like it is skipping beats. These symptoms may represent a serious problem that is an emergency. Do not wait to see if the symptoms will go away. Get medical help right away. Call your local emergency services (911 in the [place] Do not drive yourself to the hospital. Summary Chest pain can be caused by a condition that is serious and requires urgent treatment. It may also be caused by something that is not life-threatening. Your health care provider may do lab tests and other studies to find the cause of your pain. Follow your health care provider's instructions on taking medicines, making lifestyle changes, and getting emergency treatment if symptoms become worse. Keep all follow-up visits as told by your health care provider. This includes visits for any further testing if your chest pain does not go away. This information is not intended to replace advice given to you by your health care provider. Make sure you discuss any questions you have with your health care provider. Document Revised: 07/09/2021 Document Reviewed: 07/09/2021 [employer] Patient Education 2022 [employer] 12/17/2022 13:11:52 Chest Wall Pain, Whbi-kl-Ldgo Chest Wall Pain Chest wall pain is pain in or around the bones and muscles of your chest. Chest wall pain may be caused by: An injury. Coughing a lot. Using your chest and arm muscles too much. Sometimes, the cause may not be known. This pain may take a few weeks or longer to get better. Follow these instructions at home: Managing pain, stiffness, and swelling If told, put ice on the painful area: Put ice in a plastic bag. Place a towel between your skin and the bag. Leave the ice on for 20 minutes, 2 3 times a day. Activity Rest as told by your doctor. Avoid doing things that cause pain. This includes lifting heavy items. Ask your doctor what activities are safe for you. General instructions Take kcxy-xoi-cgynjgl and prescription medicines only as told by your doctor. Do not use any products that contain nicotine or tobacco, such as cigarettes, e- cigarettes, and chewing tobacco. If you need help quitting, ask your doctor. Keep all follow-up visits as told by your doctor. This is important. Contact a doctor if: You have a fever. Your chest pain gets worse. You have new symptoms. Get help right away if: You feel sick to your stomach (nauseous) or you throw up (vomit). You feel sweaty or light-headed. You have a cough with mucus from your lungs (sputum) or you cough up blood. You are short of breath. These symptoms may be an emergency. Do not wait to see if the symptoms will go away. Get medical help right away. Call your local emergency services (911 in the [place] Do not drive yourself to the hospital. Summary Chest wall pain is pain in or around the bones and muscles of your chest. It may be treated with ice, rest, and medicines. Your condition may also get better if you avoid doing things that cause pain. Contact a doctor if you have a fever, chest pain that gets worse, or new symptoms. Get help right away if you feel light-headed or you get short of breath. These symptoms may be an emergency. This information is not intended to replace advice given to you by your health care provider. Make sure you discuss any questions you have with your health care provider. Document Revised: 07/28/2021 Document Reviewed: 07/10/2021 [employer] Patient Education 2022 [employer] 12/17/2022 13:11:34 Acute Pain, Adult Acute Pain, Adult Acute pain is a type of sudden pain that may last for just a few days or for as long as six months.It is often related to an illness, injury, or medical procedure. Acute pain may be mild, moderate, or severe. Pain can make it hard for you to do your normal, daily activities. It can cause anxiety and lead toother problems if it is left untreated. Treatment depends on the cause and severity of your pain. Acute pain usually goes away once your injury has healed or you are no longer ill. Follow these instructions at home: Medicines Take uzah-uln-bpexccd and prescription medicines only as told by your health care provider. Take the lowest dose of medicine for the shortest amount of time needed to relieve the pain. If you are taking prescription pain medicine: ?Do not stop taking the medicine suddenly. Talk to your health care provider about how and when to discontinue prescription medicine. ?Do not take more pills than told by your health care provider even if your pain is severe. ?Do not take other dflm-gys-vvhqnzg pain medicines in addition to prescription pain medicine unlesstold by your health care provider. ?Ask your health care provider if the medicine requires you to avoid driving or using heavy machinery. ?Ask your health care provider if the medicine can cause constipation. You may need to take these actions to prevent or treat constipation: ?Drink enough fluid to keep your urine pale yellow. ?Eat foods that are high in fiber, such as beans, whole grains, and fresh fruits and vegetables. ?Take qmyb-zim-hoddkky or prescription medicines. ?Limit foods that are high in fat and processed sugars, such as fried or sweet foods. Managing pain, stiffness, and swelling If directed, put ice on the affected area. To do this: Put ice in a plastic bag. Place a towel between your skin and the bag. Leave the ice on for 20 minutes, 2 3 times a day. If directed, apply heat to the affected area as often as told by your health care provider. Use theheat source that your health care provider recommends, such as a moist heat pack or a heating pad. Place a towel between your skin and the heat source. Leave the heat on for 20 30 minutes. Remove the heat if your skin turns bright red. This is especially important if you are unable to feel pain, heat, or cold. You may have a greater risk of getting burned. Activity Rest as told by your health care provider. Return to your normal activities as told by your health care provider. Ask your health care provider what activities are safe for you. General instructions Check your pain level as told by your health care provider. Ask your health care provider if other strategies such as distraction, relaxation, or physical therapies can help your pain. Keep all follow-up visits as told by your health care provider. This is important. Contact a health care provider if: Your pain is not controlled by medicine. Your pain does not improve or gets worse. You have side effects from pain medicines, such as vomiting or confusion. Get help right away if you: Have severe pain. Have trouble breathing. Lose consciousness. Have chest pain or pressure that lasts for more than a few minutes, or if you have other symptoms along with chest pain, including if you: ?Have pain or discomfort in one or both arms, your back, neck, jaw, or stomach. ?Have shortness of breath. ?Break out in a cold sweat. ?Feel nauseous. ?Become light-headed. These symptoms may represent a serious problem that is an emergency. Do not wait to see if the symptoms will go away. Get medical help right away. Call your local emergency services (911 in the [place] Do not drive yourself to the hospital. Summary Acute pain may be mild, moderate, or severe. It usually goes away once your injury has healed or you are no longer ill. Take kauz-ugd-hnwzimq and prescription medicines only as told by your health care provider. Ask your health care provider if the medicine prescribed to you can cause constipation. Contact a health care provider if your pain is not controlled by medicine. This information is not intended to replace advice given to you by your health care provider. Make sure you discuss any questions you have with your health care provider. Document Revised: 09/10/2019 Document Reviewed: 09/10/2019 [employer] Patient Education 2022 [employer]. Follow Up Care 12/16/2022 02:30:31 With:Renato Lubin Address: [address] [place] [address]- Business (1) When: Unknown Comments:Call for followup appointmentCall physician if symptoms worsen With:LYNDSAY BARAHONA Address: [address] [place] [address] Business (1) When: Unknown Comments:Call for followup appointmenCall physician if symptoms worsen [facility]08-11-2023 Evaluation + Plan noteExtracted from: Title:Discharge Note Author:Jaime ARNETT, Kassidy Siddiqi ate:12/17/22 Stable Discharge To, Anticipated II - Home with home health Discharged to - Home with family care Prescriptions Eliquis 5 mg oral tablet, 5 mg= 1 tab(s), Oral, BID, 11 refills fentaNYL 12 mcg/hr Transderm ER Film, 1 patch(es), Topical, q72hr, Not taking: Patient is waiting on insuance coverage Glucometer, See Instructions hydrOXYzine hydrochloride 25 mg Tab, 25 mg= 1 tab(s), Oral, q6hr, PRN, 1 refills Lancets, See Instructions, 11 refills levothyroxine 25 mcg (0.025 mg) Tab, 25 mcg= 1 tab(s), Oral, Daily, 5 refills lidocaine Top 5% film Patch, 1 patch(es), Topical, Daily, 2 refills metformin 500 mg ER Tab, 500 mg= 1 tab(s), Oral, Daily, 3 refills mupirocin Top 2% Oint, 1 angel, Topical, TID, 1 refills, Still taking, not as prescribed: ONLY PRN oxyCODONE 5 mg Tab, 5 mg= 1 tab(s), Oral, q4hr, PRN Pepcid 20 mg Tab, 20 mg= 1 tab(s), Oral, BID, 11 refills prochlorperazine 10 mg Tab, 10 mg= 1 tab(s), Oral, q6hr, PRN, 1 refills senna 8.6 mg Tab, 8.6 mg= 1 tab(s), Oral, Daily, PRN, 1 refills Test strips, See Instructions, 11 refills Home hyoscyamine 0.125 mg oral Tab, 0.125 mg= 1 tab(s), Oral, QID, PRN ondansetron 4 mg Tab, 4 mg= 1 tab(s), Oral, q8hr, PRN polyethylene glycol 3350 17 gram packet, 17 gm, Oral, Daily, PRN promethazine 12.5 mg oral tablet, 12.5 mg= 1 tab(s), Oral, q8hr, PRN TPN Electrolytes intravenous solution, IV Piggyback, Daily With When Contact Information Renato Lubin [address] [place] [id number] Business (1) Additional Instructions: LYNDSYA BARAHONA In 0 days [address] [place] [address] Business (1) Additional Instructions: Extracted from: Title:Consult Note Author:Tristian ARNETT, Elham Cosme Date:12/17/22 42-year-old female with card iac risk factors but no elevation of enzymes and EKG is unremarkable. She is feeling better. I think she is set for discharge follow-up as an outpatient further testing including stress test. Echocardiogram looks good. 1. Chest pain, rule out acute myocardial infarction (R07.9: Chest pain, unspecified) 2. Esophageal dysmotility (K22.4: Dyskinesia of esophagus) 3. GERD (gastroesophageal reflux disease) (K21.9: Gastro-esophageal reflux disease without esophagitis) 4. Morbid obesity (E66.01: Morbid (severe) obesity due to excess calories) 5. S/P gastric bypass (Z98.84: Bariatric surgery status) 6. Diffuse large B cell lymphoma (C83.30: Diffuse large B-cell lymphoma, unspecified site) 7. HTN (hypertension) (I10: Essential (primary) hypertension) 8. HLD (hyperlipidemia) (E78.5: Hyperlipidemia, unspecified) 9. History of DVT in adulthood (Z86.718: Personal history of other venous thrombosis and embolism) DVT prophylaxis (Z29.9: Encounter for prophylactic measures, unspecified) Hypothyroidism (E03.9: Hypothyroidism, unspecified) Extracted from: Title:Admission H & P Author:Jaime ARNETT, Ahmad Date:12/16/22 Acute chest pain -I did speak with her bariatric surgeon very much appreciate his assistance and insight into her case she does have follow-up for esophageal dysmotility in [place]. -She does have a history of DVTs, a CT chest was obtained without contrast by ED staff. 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 Lifestyle modifications encouraged. Obesity is a pro- inflammatory state likely affecting above medical processes. Outpatient follow up. -Out pt follow up w/Dr. Childress Diffuse Large B Cell Lymphoma -Out pt follow up w/Oncology HTN: Resume home medications HLD: Resume home medications Time: 75 mins Plan: r/o chest pain d/c home w/out pt follow up for esophageal dysmotility and bariatric surgery. Extracted from: Title:ED Note Author:Serg Corrigan DO Date: Acute chest pain (R07.9: Janis st pain, unspecified) Orders: acetaminophen + Generic Diluent 100 mL, 1,000 mg = 100 mL, Soln-IV, IV Piggyback, Once, Stop date 12/16/22 5:51:00 EDT, STAT, Start date 12/16/22 5:51:00 EDT, 400 mL/hr, Infuse over 15 minute(s) morphine, 4 mg = 2 mL, Injection, IV Push, Once, Stop date 12/16/22 3:24:00 EDT, STAT, Start date 12/16/22 3:24:00 EDT, 12/16/22 3:24:00 EDT morphine, 4 mg = 2 mL, Injection, IV Push, Once, Stop date 12/16/22 5:43:00 EDT, STAT, Start date 12/16/22 5:43:00 EDT, 12/16/22 5:43:00 EDT ondansetron, 4 mg = 2 mL, Injection, IV Push, Once, Stop date 12/16/22 3:24:00 EDT, STAT, Start date 12/16/22 3:24:00 EDT, 12/16/22 3:24:00 EDT Sodium Chloride 0.9% intravenous solution 1,000 mL, 1,000 mL, IV, 999 mL/hr, STAT, Start date 12/16/22 4:29:00 EDT, 1 hour(s), Total volume (mL): 1,000, 157 kg, 2.76, m2 Automated Diff Basic Metabolic Panel CBC w/ Auto Diff CT Abdomen/Pelvis w/o Contrast CT Chest w/o Contrast ECG 12 Lead Adult ECG 12 Lead Adult ED Cardiac Monitoring eGFR Hepatic Function Panel Lipase Level Oxygen Saturation Oxygen Therapy PT & PTT Saline Lock Insert Troponin 0 Hr. Troponin 3 Hr. Troponin 6 Hr. Troponin 9 Hr. UA With Cult Reflex Urine Culture XR Chest Single View Addendum by Musa Stevenson M.D. on December 16, 2022 13:19:41 EDT Care of the patient was transitioned to ga upon shift change to follow-up with CT results chest abdomen and pelvis and admission to the hospital. The patient has presented with chest pain radiating to the neck and shoulder. The CT of the chest, abdomen and pelvis without contrast shows no acute process. The case is discussed with the hospitalist and the patient will be admitted to the hospitalist services for further evaluation and treatment. Future Appointments Appointment Date:12/20/2022 07:00:00 AM Scheduled Provider:Dana Butler Location:[facility] Appointment Type:FM Open Appointment Date:12/28/2022 02:00:00 PM Scheduled Provider:ARISTIDES BORJA MD Location:.ONCOLOGY Appointment Type:ONC Supportive Care Follow Up (FT) Appointment Date:04/07/2023 01:45:00 PM Scheduled Provider:Mino Asencio DO Location:.ONCOLOGY Appointment Type:ONC Office Visit 15 (FT) Future Scheduled Tests Laboratory* CBC w/ Auto Diff 04/02/23 * CBC w/ Auto Diff 11/23/22 * Comprehensive Metabolic Panel 04/02/23 * Comprehensive Metabolic Panel 11/23/22 * Lactate Dehydrogenase 04/02/23 * PT 11/09/22 * PT 11/23/22 Radiology* CT Abdomen/Pelvis w/ Contrast 03/18/22 * CT Chest w/ Contrast 03/18/22 [facility]08-09-2023 Hospital Discharge instructions Patient Education 12/15/2022 07:09:55 Obesity, Adult Obesity, Adult Obesity is the condition of having too much total body fat. Being overweight or obese means that your weight is greater than what is considered healthy for your body size. Obesity is determined by a measurement called BMI (body mass index). BMI is an estimate of body fat and is calculated from height and weight. For adults, a BMI of 30 or higher is considered obese. Obesity can lead to other health concerns and major illnesses, including: Stroke. Coronary artery disease (CAD). Type 2 diabetes. Some types of cancer, including cancers of the colon, breast, uterus, and gallbladder. High blood pressure (hypertension). High cholesterol. Gallbladder stones. Obesity can also contribute to: Osteoarthritis. Sleep apnea. Infertility problems. What are the causes? Common causes of this condition include: Eating daily meals that are high in calories, sugar, and fat. Drinking high amounts of sugar-sweetened beverages, such as soft drinks. Being born with genes that may make you more likely to become obese. Having a medical condition that causes obesity, including: ?Hypothyroidism. ?Polycystic ovarian syndrome (PCOS). ?Binge-eating disorder. ?Cuttyhunk syndrome. Taking certain medicines, such as steroids, antidepressants, and seizure medicines. Not being physically active (sedentary lifestyle). Not getting enough sleep. What increases the risk? The following factors may make you more likely to develop this condition: Having a family history of obesity. Living in an area with limited access to: ?[place], recreation centers, or sidewalks. ?Healthy food choices, such as grocery stores and [place]. What are the signs or symptoms? The main sign of this condition is having too much body fat. How is this diagnosed? This condition is diagnosed based on: Your BMI. If you are an adult with a BMI of 30 or higher, you are considered obese. Your waist circumference. This measures the distance around your waistline. Your skinfold thickness. Your health care provider may gently pinch a fold of your skin and measureit. You may have other tests to check for underlying conditions. How is this treated? Treatment for this condition often includes changing your lifestyle. Treatment may include some or all of the following: Dietary changes. This may include developing a healthy meal plan. Regular physical activity. This may include activity that causes your heart to beat faster (aerobicexercise) and strength training. Work with your health care provider to design an exercise program that works for you. Medicine to help you lose weight if you are unable to lose one pound a week after six weeks of healthy eating and more physical activity. Treating conditions that cause the obesity (underlying conditions). Surgery. Surgical options may include gastric banding and gastric bypass. Surgery may be done if: ?Other treatments have not helped to improve your condition. ?You have a BMI of 40 or higher. ?You have life-threatening health problems related to obesity. Follow these instructions at home: Eating and drinking Follow recommendations from your health care provider about what you eat and drink. Your health care provider may advise you to: ?Limit fast food, sweets, and processed snack foods. ?Choose low-fat options, such as low-fat milk instead of whole milk. ?Eat five or more servings of fruits or vegetables every day. ?Choose healthy foods when you eat out. ?Keep low-fat snacks available. ?Limit sugary drinks, such as soda, fruit juice, sweetened iced tea, and flavored milk. Drink enough water to keep your urine pale yellow. Do not follow a fad diet. Fad diets can be unhealthy and even dangerous. Other healthful choices include: ?Eat at home more often. This gives you more control over what you eat. ?Learn to read food labels. This will help you understand how much food is considered one serving. ?Learn what a healthy serving size is. Physical activity Exercise regularly, as told by your health care provider. ?Most adults should get up to 150 minutes of moderate-intensity exercise every week. ?Ask your health care provider what types of exercise are safe for you and how often you should exercise. Warm up and stretch before being active. Cool down and stretch after being active. Rest between periods of activity. Lifestyle Work with your health care provider and a dietitian to set a weight-loss goal that is healthy and reasonable for you. Limit your screen time. Find ways to reward yourself that do not involve food. Do not drink alcohol if: ?Your health care provider tells you not to drink. ?You are , may be , or are planning to become . If you drink alcohol: ?Limit how much you have to: ?0 1 drink a day for women. ?0 2 drinks a day for men. ?Know how much alcohol is in your drink. In the [place] one drink equals one 12 oz bottle of beer (355 mL), one 5 oz glass of wine (148 mL), or one 1 oz glass of hard liquor (44 mL). General instructions Keep a weight-loss journal to keep track of the food you eat and how much exercise you get. Take flor-icu-mlcteyj and prescription medicines only as told by your health care provider. Take vitamins and supplements only as told by your health care provider. Consider joining a support group. Your health care provider may be able to recommend a support group. Pay attention to your mental health as obesity can lead to depression or self esteem issues. Keep all follow-up visits. This is important. Contact a health care provider if: You are unable to meet your weight-loss goal after six weeks of dietary and lifestyle changes. You have trouble breathing. Summary Obesity is the condition of having too much total body fat. Being overweight or obese means that your weight is greater than what is considered healthy for your body size. Work with your health care provider and a dietitian to set a weight-loss goal that is healthy and reasonable for you. Exercise regularly, as told by your health care provider. Ask your health care provider what types of exercise are safe for you and how often you should exercise. This information is not intended to replace advice given to you by your health care provider. Make sure you discuss any questions you have with your health care provider. Document Revised: 12/01/2021 Document Reviewed: 12/01/2021 [employer] Patient Education 2022 [employer]. 12/15/2022 07:09:54 Hypothyroidism Hypothyroidism Hypothyroidism is when the thyroid gland does not make enough of certain hormones. This is called an underactive thyroid. The thyroid gland is a small gland located in the lower front part of the neck, just in front of the windpipe (trachea). This gland makes hormones that help control how the bodyuses food for energy (metabolism) as well as how the heart and brain function. These hormones also play a role in keeping your bones strong. When the thyroid is underactive, it produces too little ofthe hormones thyroxine (T4) and triiodothyronine (T3). What are the causes? This condition may be caused by: Wilmer's disease. This is a disease in which the body's disease-fighting system (immune system) attacks the thyroid gland. This is the most common cause. Viral infections. . Certain medicines. defects. Problems with a gland in the center of the brain (pituitary gland). Lack of enough iodine in the diet. Other causes may include: Past radiation treatments to the head or neck for cancer. Past treatment with radioactive iodine. Past exposure to radiation in the environment. Past surgical removal of part or all of the thyroid. What increases the risk? You are more likely to develop this condition if: You are female. You have a family history of thyroid conditions. You use a medicine called lithium. You take medicines that affect the immune system (immunosuppressants). What are the signs or symptoms? Common symptoms of this condition include: Not being able to tolerate cold. Feeling as though you have no energy (lethargy). Lack of appetite. Constipation. Sadness or depression. Weight gain that is not explained by a change in diet or exercise habits. Menstrual irregularity. Dry skin, coarse hair, or brittle nails. Other symptoms may include: Muscle pain. Slowing of thought processes. Poor memory. How is this diagnosed? This condition may be diagnosed based on: Your symptoms, your medical history, and a physical exam. Blood tests. You may also have imaging tests, such as an ultrasound or MRI. How is this treated? This condition is treated with medicine that replaces the thyroid hormones that your body does not make. After you begin treatment, it may take several weeks for symptoms to go away. Follow these instructions at home: Take jszi-wwl-gfglbsi and prescription medicines only as told by your health care provider. If you start taking any new medicines, tell your health care provider. Keep all follow-up visits as told by your health care provider. This is important. ?As your condition improves, your dosage of thyroid hormone medicine may change. ?You will need to have blood tests regularly so that your health care provider can monitor your condition. Contact a health care provider if: Your symptoms do not get better with treatment. You are taking thyroid hormone replacement medicine and you: ?Sweat a lot. ?Have tremors. ?Feel anxious. ?Lose weight rapidly. ?Cannot tolerate heat. ?Have emotional swings. ?Have diarrhea. ?Feel weak. Get help right away if: You have chest pain. You have an irregular heartbeat. You have a rapid heartbeat. You have difficulty breathing. These symptoms may be an emergency. Get help right away. Call 911. Do not wait to see if the symptoms will go away. Do not drive yourself to the hospital. Summary Hypothyroidism is when the thyroid gland does not make enough of certain hormones (it is underactive). When the thyroid is underactive, it produces too little of the hormones thyroxine (T4) and triiodothyronine (T3). The most common cause is Wilmer's disease, a disease in which the body's disease-fighting system(immune system) attacks the thyroid gland. The condition can also be caused by viral infections, medicine, , or past radiation treatment to the head or neck. Symptoms may include weight gain, dry skin, constipation, feeling as though you do not have energy,and not being able to tolerate cold. This condition is treated with medicine to replace the thyroid hormones that your body does not make. This information is not intended to replace advice given to you by your health care provider. Make sure you discuss any questions you have with your health care provider. Document Revised: 04/27/2022 Document Reviewed: 04/27/2022 [employer] Patient Education 2022 [employer]. 12/15/2022 07:09:53 Hypertension, Adult Hypertension, Adult High blood pressure (hypertension) is when the force of blood pumping through the arteries is too strong. The arteries are the blood vessels that carry blood from the heart throughout the body. Hypertension forces the heart to work harder to pump blood and may cause arteries to become narrow or stiff. Untreated or uncontrolled hypertension can lead to a heart attack, heart failure, a stroke, kidney disease, and other problems. A blood pressure reading consists of a higher number over a lower number. Ideally, your blood pressure should be below 120/80. The first ( top ) number is called the systolic pressure. It is a measure of the pressure in your arteries as your heart beats. The second ( bottom ) number is called the diastolic pressure. It is a measure of the pressure in your arteries as the heart relaxes. What are the causes? The exact cause of this condition is not known. There are some conditions that result in high bloodpressure. What increases the risk? Certain factors may make you more likely to develop high blood pressure. Some of these risk factorsare under your control, including: Smoking. Not getting enough exercise or physical activity. Being overweight. Having too much fat, sugar, calories, or salt (sodium) in your diet. Drinking too much alcohol. Other risk factors include: Having a personal history of heart disease, diabetes, high cholesterol, or kidney disease. Stress. Having a family history of high blood pressure and high cholesterol. Having obstructive sleep apnea. Age. The risk increases with age. What are the signs or symptoms? High blood pressure may not cause symptoms. Very high blood pressure (hypertensive crisis) may cause: Headache. Fast or irregular heartbeats (palpitations). Shortness of breath. Nosebleed. Nausea and vomiting. Vision changes. Severe chest pain, dizziness, and seizures. How is this diagnosed? This condition is diagnosed by measuring your blood pressure while you are seated, with your arm resting on a flat surface, your legs uncrossed, and your feet flat on the floor. The cuff of the bloodpressure monitor will be placed directly against the skin of your upper arm at the level of your heart. Blood pressure should be measured at least twice using the same arm. Certain conditions can cause a difference in blood pressure between your right and left arms. If you have a high blood pressure reading during one visit or you have normal blood pressure with other risk factors, you may be asked to: Return on a different day to have your blood pressure checked again. Monitor your blood pressure at home for 1 week or longer. If you are diagnosed with hypertension, you may have other blood or imaging tests to help your health care provider understand your overall risk for other conditions. How is this treated? This condition is treated by making healthy lifestyle changes, such as eating healthy foods, exercising more, and reducing your alcohol intake. You may be referred for counseling on a healthy diet and physical activity. Your health care provider may prescribe medicine if lifestyle changes are not enough to get your blood pressure under control and if: Your systolic blood pressure is above 130. Your diastolic blood pressure is above 80. Your personal target blood pressure may vary depending on your medical conditions, your age, and other factors. Follow these instructions at home: Eating and drinking Eat a diet that is high in fiber and potassium, and low in sodium, added sugar, and fat. An exampleof this eating plan is called the DASH diet. DASH stands for Dietary Approaches to Stop Hypertension. To eat this way: ?Eat plenty of fresh fruits and vegetables. Try to fill one half of your plate at each meal with fruits and vegetables. ?Eat whole grains, such as whole-wheat pasta, brown rice, or whole-grain bread. Fill about one fourth of your plate with whole grains. ?Eat or drink low-fat dairy products, such as skim milk or low-fat yogurt. ?Avoid fatty cuts of meat, processed or cured meats, and poultry with skin. Fill about one fourth of your plate with lean proteins, such as fish, chicken without skin, beans, eggs, or tofu. ?Avoid pre-made and processed foods. These tend to be higher in sodium, added sugar, and fat. Reduce your daily sodium intake. Many people with hypertension should eat less than 1,500 mg of sodium a day. Do not drink alcohol if: ?Your health care provider tells you not to drink. ?You are , may be , or are planning to become . If you drink alcohol: ?Limit how much you have to: ?0 1 drink a day for women. ?0 2 drinks a day for men. ?Know how much alcohol is in your drink. In the [place] one drink equals one 12 oz bottle of beer (355 mL), one 5 oz glass of wine (148 mL), or one 1 oz glass of hard liquor (44 mL). Lifestyle Work with your health care provider to maintain a healthy body weight or to lose weight. Ask what an ideal weight is for you. Get at least 30 minutes of exercise that causes your heart to beat faster (aerobic exercise) most days of the week. Activities may include walking, swimming, or biking. Include exercise to strengthen your muscles (resistance exercise), such as Pilates or lifting weights, as part of your weekly exercise routine. Try to do these types of exercises for 30 minutes at least 3 days a week. Do not use any products that contain nicotine or tobacco. These products include cigarettes, chewing tobacco, and vaping devices, such as e-cigarettes. If you need help quitting, ask your health careprovider. Monitor your blood pressure at home as told by your health care provider. Keep all follow-up visits. This is important. Medicines Take kzbw-cdx-jyybnlu and prescription medicines only as told by your health care provider. Follow directions carefully. Blood pressure medicines must be taken as prescribed. Do not skip doses of blood pressure medicine. Doing this puts you at risk for problems and can makethe medicine less effective. Ask your health care provider about side effects or reactions to medicines that you should watch for. Contact a health care provider if you: Think you are having a reaction to a medicine you are taking. Have headaches that keep coming back (recurring). Feel dizzy. Have swelling in your ankles. Have trouble with your vision. Get help right away if you: Develop a severe headache or confusion. Have unusual weakness or numbness. Feel faint. Have severe pain in your chest or abdomen. Vomit repeatedly. Have trouble breathing. These symptoms may be an emergency. Get help right away. Call 911. Do not wait to see if the symptoms will go away. Do not drive yourself to the hospital. Summary Hypertension is when the force of blood pumping through your arteries is too strong. If this condition is not controlled, it may put you at risk for serious complications. Your personal target blood pressure may vary depending on your medical conditions, your age, and other factors. For most people, a normal blood pressure is less than 120/80. Hypertension is treated with lifestyle changes, medicines, or a combination of both. Lifestyle changes include losing weight, eating a healthy, low-sodium diet, exercising more, and limiting alcohol. This information is not intended to replace advice given to you by your health care provider. Make sure you discuss any questions you have with your health care provider. Document Revised: 03/02/2022 Document Reviewed: 03/02/2022 [employer] Patient Education 2022 [employer]. Follow Up Care 06/21/2022 07:48:03 With:Dana Butler Address: [address] [place] [address] [place] [address]- When:Within 6 Month(s) Comments:[facility] 08-01-2023 Hospital Discharge instructions Patient Education 12/07/2022 14:55:59 Dr Borja's Instructions ONC (CUSTOM) Dr. Borja s instructions for 12-07-22 1. For pain, we will start a fentanyl patch. Please do not take any more morphine extended release even if you regain the ability to keep pills down - it would be OK to take the oxycodone as ordered though. You change the patch every 72 hours - set a reminder on your phone. 2. I'll follow up with Dr. Chang regarding any scans and their timing. 3. For nausea, try taking the Zofran together with the prochlorperazine - they work in different ways and together are more effective than either alone. 4. Follow up in the office in 3 weeks; I'll call you in 5-7 days to see how the fentanyl is workingand whether we need to adjust the dose. 5. Hang in there! To contact Dr. Borja during business hours, please call the oncology office at [phone] and speak with a manager rn case (Adela Law). After hours, please call the main hospital bridge operator at [phone] and you will be connected to Dr. Borja. [facility]07-26-2023 NoteScheduled with WEATHER ANALYST 12/20/22. Referral for Hepatology. Called to schedule a clinic appt. No answer. Left aVM to return our call.[facility]07-24-2023 NotePlease call Vero at Dr. Ramos's about referral for Cirrhosis.[facility]07-03-2023 Hospital Discharge instructions Patient Education 11/08/2022 14:50:57 Dr Borja's Instructions ONC (CUSTOM) Dr. Borja s instructions for 11-08-22 1. For pain, I'm ordering a pain patch to put right over the painful area. This is not absorbed into your system. PLEASE CALL if your pharmacy has your other medications but not this one - it may require prior authorization by your insurance company. 2. Also for pain, you can increase your oxycodone to 2 tablets. Please keep track of how many tablets you take each day. 3. You can take the Zofran (ondansetron) every 4 hours for nausea as needed up to 5 doses a day. 4. I'm also prescribing some prochlorperazine (Compazine) for you to try for nausea, every 6 hours as needed. It's fine to take this together with the Zofran, they work in different ways. 5. Once we get the nausea under control, we'll start duloxetine, a medication for nerve pain. It doesn't work right away but should start to work in a couple of weeks. 6. I'll speak to Dr. Chang about your new pain. 7. I'm referring you to a machined parts metal sprayer (specializes in liver diseases too) regarding your fatty liver. 8. Will call you in a few days, and follow up in about [address] Borja during business hours, please call the oncology office at [phone] and speak with a manager rn case (Adela Law). After hours, please call the main hospital bridge operator at [phone] and you will be connected to Dr. Borja. [facility]06-06-2023 Hospital Discharge instructions Patient Education 10/12/2022 15:06:18 Dr Borja's Instructions ONC (CUSTOM) Dr. Borja s instructions for 10-12-22 1. For pain, begin the morphine extended release, 1 tab in the morning and 1 tab in the evening. 2. I will send some oxycodone (the main ingredient in Percocet) to use for pain if needed in between the morphine tablets. You can take these every 6 hours if needed. Please call me if your pharmacy doesn't have it. We may need to substitute morphine immediate release. 3. I'm sending senna which is a natural laxative (pill) to take 2 tablets if needed for constipation. Call me if it doesn't work within 24 hours. 4. For anxiety, I'll send some hydroxyzine, a mild non addictive anxiety medication. Take one as needed every 6 hours. 5. I'll call you in a few days, follow up visit in about [address] Borja during business hours, please call the oncology office at [phone] and speak with a manager rn case (Adela or Ani). After hours, please call the main hospital bridge operator at [phone] and you will be connected to Dr. Borja. [facility]06-06-2023 Hospital Discharge instructions Patient Education 10/12/2022 08:48:17 BMI for Adults BMI for Adults What is BMI? Body mass index (BMI) is a number that is calculated from a person's weight and height. BMI can help estimate how much of a person's weight is composed of fat. BMI does not measure body fat directly.Rather, it is an alternative to procedures that directly measure body fat, which can be difficult and expensive. BMI can help identify people who may be at higher risk for certain medical problems. What are BMI measurements used for? BMI is used as a screening tool to identify possible weight problems. It helps determine whether a person is obese, overweight, a healthy weight, or underweight. BMI is useful for: Identifying a weight problem that may be related to a medical condition or may increase the risk for medical problems. Promoting changes, such as changes in diet and exercise, to help reach a healthy weight. BMI screening can be repeated to see if these changes are working. How is BMI calculated? BMI involves measuring your weight in relation to your height. Both height and weight are measured,and the BMI is calculated from those numbers. This can be done either in [place] ([place] or metric measurements. Note that charts and online BMI calculators are available to help you find your BMI quickly and easily without having to do these calculations yourself. To calculate your BMI in [place] ([place] measurements: 1.Measure your weight in pounds (lb). 2.Multiply the number of pounds by 703. For example, for a person who weighs 180 lb, multiply that number by 703, which equals 126,540. 3.Measure your height in inches. Then multiply that number by itself to get a measurement called inches squared. For example, for a person who is 70 inches tall, the inches squared measurement is 70 inches x 70inches, which equals 4,900 inches squared. 4.Divide the total from step 2 (number of lb x 703) by the total from step 3 (inches squared): 126,540 4,900 = 25.8. This is your BMI. To calculate your BMI in metric measurements: 1.Measure your weight in kilograms (kg). 2.Measure your height in meters (m). Then multiply that number by itself to get a measurement called meters squared. For example, for a person who is 1.75 m tall, the meters squared measurement is 1.75 m x 1.75 m, which is equal to 3.1 meters squared. 3.Divide the number of kilograms (your weight) by the meters squared number. In this example: 70 3.1 = 22.6. This is your BMI. What do the results mean? BMI charts are used to identify whether you are underweight, normal weight, overweight, or obese. The following guidelines will be used: Underweight: BMI less than 18.5. Normal weight: BMI between 18.5 and 24.9. Overweight: BMI between 25 and 29.9. Obese: BMI of 30 or above. Keep these notes in mind: Weight includes both fat and muscle, so someone with a muscular build, such as an athlete, may havea BMI that is higher than 24.9. In cases like these, BMI is not an accurate measure of body fat. To determine if excess body fat is the cause of a BMI of 25 or higher, further assessments may needto be done by a health care provider. BMI is usually interpreted in the same way for men and women. Where to find more information For more information about BMI, including tools to quickly calculate your BMI, go to these websites: Centers for Disease Control and Prevention: www.cdc.gov [place] Heart Association: www.heart.org National Heart, Lung, and Blood [place]: www.nhlbi.nih.gov Summary Body mass index (BMI) is a number that is calculated from a person's weight and height. BMI may help estimate how much of a person's weight is composed of fat. BMI can help identify thosewho may be at higher risk for certain medical problems. BMI can be measured using N[place] measurements or metric measurements. BMI charts are used to identify whether you are underweight, normal weight, overweight, or obese. This information is not intended to replace advice given to you by your health care provider. Make sure you discuss any questions you have with your health care provider. Document Revised: 01/16/2020 Document Reviewed: 11/23/2019 [employer] Patient Education 2022 [employer]. 10/12/2022 08:48:15 General Anesthesia, Adult General Anesthesia, Adult General anesthesia is the use of medicines to make a person go to sleep (unconscious) for a medical procedure. General anesthesia must be used for certain procedures, and is often recommended for procedures that: Last a long time. Require you to be still or in an unusual position. Are major and can cause blood loss. The medicines used for general anesthesia are called general anesthetics. As well as making you unconscious for a certain amount of time, these medicines: Prevent pain. Control your blood pressure. Relax your muscles. Tell a health care provider about: Any allergies you have. All medicines you are taking, including vitamins, herbs, eye drops, creams, and ztim-lrm-ceoktzr medicines. Any problems you or family members have had with anesthetic medicines. Types of anesthetics you have had in the past. Any blood disorders you have. Any surgeries you have had. Any medical conditions you have. Any recent upper respiratory, chest, or ear infections. Any history of: ?Heart or lung conditions, such as heart failure, sleep apnea, asthma, or chronic obstructive pulmonary disease (COPD). ? service. ?Depression or anxiety. Any tobacco or drug use, including marijuana or alcohol use. Whether you are or may be . What are the risks? Generally, this is a safe procedure. However, problems may occur, including: Allergic reaction. Lung and heart problems. Inhaling food or liquid from the stomach into the lungs (aspiration). Nerve injury. Dental injury. Air in the bloodstream, which can lead to stroke. Extreme agitation or confusion (delirium) when you wake up from the anesthetic. Waking up during your procedure and being unable to move. This is rare. These problems are more likely to develop if you are having a major surgery or if you have an advanced or serious medical condition. You can prevent some of these complications by answering all of your health care provider's questions thoroughly and by following all instructions before your procedure. General anesthesia can cause side effects, including: Nausea or vomiting. A sore throat from the breathing tube. Hoarseness. Wheezing or coughing. Shaking chills. Tiredness. Body aches. Anxiety. Sleepiness or drowsiness. Confusion or agitation. What happens before the procedure? Staying hydrated Follow instructions from your health care provider about hydration, which may include: Up to 2 hours before the procedure you may continue to drink clear liquids, such as water, clear fruit juice, black coffee, and plain tea. Eating and drinking restrictions Follow instructions from your health care provider about eating and drinking, which may include: 8 hours before the procedure stop eating heavy meals or foods such as meat, fried foods, or fatty foods. 6 hours before the procedure stop eating light meals or foods, such as toast or cereal. 6 hours before the procedure stop drinking milk or drinks that contain milk. 2 hours before the procedure stop drinking clear liquids. Medicines Ask your health care provider about: Changing or stopping your regular medicines. This is especially important if you are taking diabetes medicines or blood thinners. Taking medicines such as aspirin and ibuprofen. These medicines can thin your blood. Do not take these medicines unless your health care provider tells you to take them. Taking wemz-blz-klogwkw medicines, vitamins, herbs, and supplements. Do not take these during the week before your procedure unless your health care provider approves them. General instructions Starting 3 6 weeks before the procedure, do not use any products that contain nicotine or tobacco, such as cigarettes and e-cigarettes. If you need help quitting, ask your health care provider. If you brush your teeth on the morning of the procedure, make sure to spit out all of the toothpaste. Tell your health care provider if you become ill or develop a cold, cough, or fever. If instructed by your health care provider, bring your sleep apnea device with you on the day of your surgery (if applicable). Ask your health care provider if you will be going home the same day, the following day, or after alonger hospital stay. ?Plan to have a responsible adult take you home from the hospital or clinic. ?Plan to have a responsible adult care for you for the time you are told after you leave the hospital or clinic. This is important. What happens during the procedure? You will be given anesthetics through both of the following: ?A mask placed over your nose and mouth. ?An IV in one of your veins. You may receive a medicine to help you relax (sedative). After you are unconscious, a breathing tube may be inserted down your throat to help you breathe. This will be removed before you wake up. An anesthesia specialist will stay with you throughout your procedure. He or she will: ?Keep you comfortable and safe by continuing to give you medicines and adjusting the amount of medicine that you get. ?Monitor your blood pressure, pulse, and oxygen levels to make sure that the anesthetics do not cause any problems. The procedure may vary among health care providers and hospitals. What happens after the procedure? Your blood pressure, temperature, heart rate, breathing rate, and blood oxygen level will be monitored until the medicines you were given have worn off. You will wake up in a recovery area. You may wake up slowly. If you feel anxious or agitated, you may be given medicine to help you calm down. If you will be going home the same day, your health care provider may check to make sure you can walk, drink, and urinate. Your health care provider will treat any pain or side effects you have before you go home. Do not drive or operate machinery until your health care provider says that it is safe. Summary General anesthesia is used to keep you still and prevent pain during a procedure. It is important to tell your health care provider about your medical history and any surgeries you have had, and previous experience with anesthesia. Follow your health care provider's instructions about when to stop eating, drinking, or taking certain medicines before your procedure. Plan to have a responsible adult take you home from the hospital or clinic. This information is not intended to replace advice given to you by your health care provider. Make sure you discuss any questions you have with your health care provider. Document Revised: 01/05/2021 Document Reviewed: 08/06/2020 [employer] Patient Education 2022 [employer]. Follow Up Care 10/11/2022 09:12:46 With:BROOKLYN CASEY LYNDSAY Karol Address: [address] [place] [address] When: Unknown [facility] [place] 05-25-2023 Hospital Discharge instructions Follow Up Care 09/30/2022 15:43:14 With:Mino Asencio Address: [facility] [address] [place] [address] [place] [address] [phone] Fax Business (7) When: Unknown Comments:cbc, cmp, ldh. [propr o f/u in 6 months. [facility]04-28-2023 Hospital Discharge instructions Patient Education 09/03/2022 14:21:44 BMI for Adults BMI for Adults What is BMI? Body mass index (BMI) is a number that is calculated from a person's weight and height. BMI can help estimate how much of a person's weight is composed of fat. BMI does not measure body fat directly.Rather, it is an alternative to procedures that directly measure body fat, which can be difficult and expensive. BMI can help identify people who may be at higher risk for certain medical problems. What are BMI measurements used for? BMI is used as a screening tool to identify possible weight problems. It helps determine whether a person is obese, overweight, a healthy weight, or underweight. BMI is useful for: Identifying a weight problem that may be related to a medical condition or may increase the risk for medical problems. Promoting changes, such as changes in diet and exercise, to help reach a healthy weight. BMI screening can be repeated to see if these changes are working. How is BMI calculated? BMI involves measuring your weight in relation to your height. Both height and weight are measured,and the BMI is calculated from those numbers. This can be done either in [place] ([place] or metric measurements. Note that charts and online BMI calculators are available to help you find your BMI quickly and easily without having to do these calculations yourself. To calculate your BMI in [place] ([place] measurements: 1.Measure your weight in pounds (lb). 2.Multiply the number of pounds by 703. For example, for a person who weighs 180 lb, multiply that number by 703, which equals 126,540. 3.Measure your height in inches. Then multiply that number by itself to get a measurement called inches squared. For example, for a person who is 70 inches tall, the inches squared measurement is 70 inches x 70inches, which equals 4,900 inches squared. 4.Divide the total from step 2 (number of lb x 703) by the total from step 3 (inches squared): 126,540 4,900 = 25.8. This is your BMI. To calculate your BMI in metric measurements: 1.Measure your weight in kilograms (kg). 2.Measure your height in meters (m). Then multiply that number by itself to get a measurement called meters squared. For example, for a person who is 1.75 m tall, the meters squared measurement is 1.75 m x 1.75 m, which is equal to 3.1 meters squared. 3.Divide the number of kilograms (your weight) by the meters squared number. In this example: 70 3.1 = 22.6. This is your BMI. What do the results mean? BMI charts are used to identify whether you are underweight, normal weight, overweight, or obese. The following guidelines will be used: Underweight: BMI less than 18.5. Normal weight: BMI between 18.5 and 24.9. Overweight: BMI between 25 and 29.9. Obese: BMI of 30 or above. Keep these notes in mind: Weight includes both fat and muscle, so someone with a muscular build, such as an athlete, may havea BMI that is higher than 24.9. In cases like these, BMI is not an accurate measure of body fat. To determine if excess body fat is the cause of a BMI of 25 or higher, further assessments may needto be done by a health care provider. BMI is usually interpreted in the same way for men and women. Where to find more information For more information about BMI, including tools to quickly calculate your BMI, go to these websites: Centers for Disease Control and Prevention: www.cdc.gov [place] [employer] Association: www.heart.org National Heart, Lung, and Blood [place]: www.nhlbi.nih.gov Summary Body mass index (BMI) is a number that is calculated from a person's weight and height. BMI may help estimate how much of a person's weight is composed of fat. BMI can help identify thosewho may be at higher risk for certain medical problems. BMI can be measured using [place] measurements or metric measurements. BMI charts are used to identify whether you are underweight, normal weight, overweight, or obese. This information is not intended to replace advice given to you by your health care provider. Make sure you discuss any questions you have with your health care provider. Document Revised: 01/16/2020 Document Reviewed: 11/23/2019 [employer] Patient Education 2022 [employer]Vue. 09/03/2022 14:21:39 Cellulitis, Adult Cellulitis, Adult Cellulitis is a skin infection. The infected area is usually warm, red, swollen, and tender. This condition occurs most often in the arms and lower legs. The infection can travel to the muscles, blood, and underlying tissue and become serious. It is very important to get treated for this condition. What are the causes? Cellulitis is caused by bacteria. The bacteria enter through a break in the skin, such as a cut, burn, insect bite, open sore, or crack. What increases the risk? This condition is more likely to occur in people who: Have a weak body defense system (immune system). Have open wounds on the skin, such as cuts, bennett, bites, and scrapes. Bacteria can enter the body through these open wounds. Are older than 60 years of age. Have diabetes. Have a type of long-lasting (chronic) liver disease (cirrhosis) or kidney disease. Are obese. Have a skin condition such as: ?Itchy rash (eczema). ?Slow movement of blood in the veins (venous stasis). ?Fluid buildup below the skin (edema). Have had radiation therapy. Use IV drugs. What are the signs or symptoms? Symptoms of this condition include: Redness, streaking, or spotting on the skin. Swollen area of the skin. Tenderness or pain when an area of the skin is touched. Warm skin. A fever. Chills. Blisters. How is this diagnosed? This condition is diagnosed based on a medical history and physical exam. You may also have tests, including: Blood tests. Imaging tests. How is this treated? Treatment for this condition may include: Medicines, such as antibiotic medicines or medicines to treat allergies (antihistamines). Supportive care, such as rest and application of cold or warm cloths (compresses) to the skin. Hospital care, if the condition is severe. The infection usually starts to get better within 1 2 days of treatment. Follow these instructions at home: Medicines Take tutw-wya-xbokjre and prescription medicines only as told by your health care provider. If you were prescribed an antibiotic medicine, take it as told by your health care provider. Do notstop taking the antibiotic even if you start to feel better. General instructions Drink enough fluid to keep your urine pale yellow. Do not touch or rub the infected area. Raise (elevate) the infected area above the level of your heart while you are sitting or lying down. Apply warm or cold compresses to the affected area as told by your health care provider. Keep all follow-up visits as told by your health care provider. This is important. These visits letyour health care provider make sure a more serious infection is not developing. Contact a health care provider if: You have a fever. Your symptoms do not begin to improve within 1 2 days of starting treatment. Your bone or joint underneath the infected area becomes painful after the skin has healed. Your infection returns in the same area or another area. You notice a swollen bump in the infected area. You develop new symptoms. You have a general ill feeling (malaise) with muscle aches and pains. Get help right away if: Your symptoms get worse. You feel very sleepy. You develop vomiting or diarrhea that persists. You notice red streaks coming from the infected area. Your red area gets larger or turns dark in color. These symptoms may represent a serious problem that is an emergency. Do not wait to see if the symptoms will go away. Get medical help right away. Call your local emergency services (911 in the [place] Do not drive yourself to the hospital. Summary Cellulitis is a skin infection. This condition occurs most often in the arms and lower legs. Treatment for this condition may include medicines, such as antibiotic medicines or antihistamines. Take ywhm-pvz-czzhzhn and prescription medicines only as told by your health care provider. If you were prescribed an antibiotic medicine, do not stop taking the antibiotic even if you start to feel better. Contact a health care provider if your symptoms do not begin to improve within 1 2 days of startingtreatment or your symptoms get worse. Keep all follow-up visits as told by your health care provider. This is important. These visits letyour health care provider make sure that a more serious infection is not developing. This information is not intended to replace advice given to you by your health care provider. Make sure you discuss any questions you have with your health care provider. Document Revised: 02/04/2022 Document Reviewed: 02/04/2022 [employer] Patient Education 2022 [employer]. Follow Up Care 09/03/2022 09:50:29 With:LYNDSAY BARAHONA CNP Address: [facility] [place] [address] When: Unknown [facility] [place] 03-24-2023 Hospital Discharge instructions Patient Education 07/30/2022 12:59:26 Exercising to Lose Weight Exercising to Lose Weight Exercise is structured, repetitive physical activity to improve fitness and health. Getting regularexercise is important for everyone. It is especially important if you are overweight. Being overweight increases your risk of heart disease, stroke, diabetes, high blood pressure, and several types of cancer. Reducing your calorie intake and exercising can help you lose weight. Exercise is usually categorized as moderate or vigorous intensity. To lose weight, most people needto do a certain amount of moderate-intensity or vigorous-intensity exercise each week. Moderate-intensity exercise Moderate-intensity exercise is any activity that gets you moving enough to burn at least three times more energy (calories) than if you were sitting. Examples of moderate exercise include: Walking a mile in 15 minutes. Doing light yard work. Biking at an easy pace. Most people should get at least 150 minutes (2 hours and 30 minutes) a week of moderate-intensity exercise to maintain their body weight. Vigorous-intensity exercise Vigorous-intensity exercise is any activity that gets you moving enough to burn at least six times more calories than if you were sitting. When you exercise at this intensity, you should be working hard enough that you are not able to carry on a conversation. Examples of vigorous exercise include: Running. Playing a team sport, such as football, basketball, and soccer. Jumping rope. Most people should get at least 75 minutes (1 hour and 15 minutes) a week of vigorous-intensity exercise to maintain their body weight. How can exercise affect me? When you exercise enough to burn more calories than you eat, you lose weight. Exercise also reducesbody fat and builds muscle. The more muscle you have, the more calories you burn. Exercise also: Improves mood. Reduces stress and tension. Improves your overall fitness, flexibility, and endurance. Increases bone strength. The amount of exercise you need to lose weight depends on: Your age. The type of exercise. Any health conditions you have. Your overall physical ability. Talk to your health care provider about how much exercise you need and what types of activities aresafe for you. What actions can I take to lose weight? Nutrition Make changes to your diet as told by your health care provider or diet and nutrition services associate (dietitian). This may include: ?Eating fewer calories. ?Eating more protein. ?Eating less unhealthy fats. ?Eating a diet that includes fresh fruits and vegetables, whole grains, low-fat dairy products, andlean protein. ?Avoiding foods with added fat, salt, and sugar. Drink plenty of water while you exercise to prevent dehydration or heat stroke. Activity Choose an activity that you enjoy and set realistic goals. Your health care provider can help you make an exercise plan that works for you. Exercise at a moderate or vigorous intensity most days of the week. ?The intensity of exercise may vary from person to person. You can tell how intense a workout is for you by paying attention to your breathing and heartbeat. Most people will notice their breathing and heartbeat get faster with more intense exercise. Do resistance training twice each week, such as: ?Push-ups. ?Sit-ups. ?Lifting weights. ?Using resistance bands. Getting short amounts of exercise can be just as helpful as long structured periods of exercise. Ifyou have trouble finding time to exercise, try to include exercise in your daily routine. ?Get up, stretch, and walk around every 30 minutes throughout the day. ?Go for a walk during your lunch break. ?Park your car farther away from your destination. ?If you take public transportation, get off one stop early and walk the rest of the way. ?Make phone calls while standing up and walking around. ?Take the stairs instead of elevators or escalators. Wear comfortable clothes and shoes with good support. Do not exercise so much that you hurt yourself, feel dizzy, or get very short of breath. Where to find more information [place] Department of Health and Human Services: www.hhs.gov Centers for Disease Control and Prevention (CDC): www.cdc.gov Contact a health care provider: Before starting a new exercise program. If you have questions or concerns about your weight. If you have a medical problem that keeps you from exercising. Get help right away if you have any of the following while exercising: Injury. Dizziness. Difficulty breathing or shortness of breath that does not go away when you stop exercising. Chest pain. Rapid heartbeat. Summary Being overweight increases your risk of heart disease, stroke, diabetes, high blood pressure, and several types of cancer. Losing weight happens when you burn more calories than you eat. Reducing the amount of calories you eat in addition to getting regular moderate or vigorous exercise each week helps you lose weight. This information is not intended to replace advice given to you by your health care provider. Make sure you discuss any questions you have with your health care provider. Document Released: 05/28/2011 Document Revised: 05/08/2018 Document Reviewed: 05/08/2018 [employer] Patient Education 2020 [employer]. 07/30/2022 12:59:25 BMI for Adults BMI for Adults Body mass index (BMI) is a number that is calculated from a person's weight and height. BMI may help to estimate how much of a person's weight is composed of fat. BMI can help identify those who may be at higher risk for certain medical problems. How is BMI used with adults? BMI is used as a screening tool to identify possible weight problems. It is used to check whether aperson is obese, overweight, healthy weight, or underweight. How is BMI calculated? BMI measures your weight and compares it to your height. This can be done either in [place] ([place] or metric measurements. Note that charts are available to help you find your BMI quickly and easily without having to do these calculations yourself. To calculate your BMI in [place] ([place] measurements, your health care provider will: 1.Measure your weight in pounds (lb). 2.Multiply the number of pounds by 703. For example, for a person who weighs 180 lb, multiply that number by 703, which equals 126,540. 3.Measure your height in inches (in). Then multiply that number by itself to get a measurement called inches squared. For example, for a person who is 70 in tall, the inches squared measurement is 70 in x 70 in, which equals 4900 inches squared. 4.Divide the total from Step 2 (number of lb x 703) by the total from Step 3 (inches squared): 126,540 4900 = 25.8. This is your BMI. To calculate your BMI in metric measurements, your health care provider will: 1.Measure your weight in kilograms (kg). 2.Measure your height in meters (m). Then multiply that number by itself to get a measurement called meters squared. For example, for a person who is 1.75 m tall, the meters squared measurement is 1.75 m x 1.75 m, which is equal to 3.1 meters squared. 3.Divide the number of kilograms (your weight) by the meters squared number. In this example: 70 3.1 = 22.6. This is your BMI. How is BMI interpreted? To interpret your results, your health care provider will use BMI charts to identify whether you are underweight, normal weight, overweight, or obese. The following guidelines will be used: Underweight: BMI less than 18.5. Normal weight: BMI between 18.5 and 24.9. Overweight: BMI between 25 and 29.9. Obese: BMI of 30 and above. Please note: Weight includes both fat and muscle, so someone with a muscular build, such as an athlete, may havea BMI that is higher than 24.9. In cases like these, BMI is not an accurate measure of body fat. To determine if excess body fat is the cause of a BMI of 25 or higher, further assessments may needto be done by a health care provider. BMI is usually interpreted in the same way for men and women. Why is BMI a useful tool? BMI is useful in two ways: Identifying a weight problem that may be related to a medical condition, or that may increase the risk for medical problems. Promoting lifestyle and diet changes in order to reach a healthy weight. Summary Body mass index (BMI) is a number that is calculated from a person's weight and height. BMI may help to estimate how much of a person's weight is composed of fat. BMI can help identify those who may be at higher risk for certain medical problems. BMI can be measured using Nauruan measurements or metric measurements. To interpret your results, your health care provider will use BMI charts to identify whether you are underweight, normal weight, overweight, or obese. This information is not intended to replace advice given to you by your health care provider. Make sure you discuss any questions you have with your health care provider. Document Released: 01/04/2005 Document Revised: 04/07/2018 Document Reviewed: 03/08/2018 [employer] Patient Education 2020 [employer]. 07/30/2022 12:59:23 Hypothyroidism Hypothyroidism Hypothyroidism is when the thyroid gland does not make enough of certain hormones (it is underactive). The thyroid gland is a small gland located in the lower front part of the neck, just in front ofthe windpipe (trachea). This gland makes hormones that help control how the body uses food for energy (metabolism) as well as how the heart and brain function. These hormones also play a role in keeping your bones strong. When the thyroid is underactive, it produces too little of the hormones thyroxine (T4) and triiodothyronine (T3). What are the causes? This condition may be caused by: Wilmer's disease. This is a disease in which the body's disease-fighting system (immune system) attacks the thyroid gland. This is the most common cause. Viral infections. . Certain medicines. defects. Past radiation treatments to the head or neck for cancer. Past treatment with radioactive iodine. Past exposure to radiation in the environment. Past surgical removal of part or all of the thyroid. Problems with a gland in the center of the brain (pituitary gland). Lack of enough iodine in the diet. What increases the risk? You are more likely to develop this condition if: You are female. You have a family history of thyroid conditions. You use a medicine called lithium. You take medicines that affect the immune system (immunosuppressants). What are the signs or symptoms? Symptoms of this condition include: Feeling as though you have no energy (lethargy). Not being able to tolerate cold. Weight gain that is not explained by a change in diet or exercise habits. Lack of appetite. Dry skin. Coarse hair. Menstrual irregularity. Slowing of thought processes. Constipation. Sadness or depression. How is this diagnosed? This condition may be diagnosed based on: Your symptoms, your medical history, and a physical exam. Blood tests. You may also have imaging tests, such as an ultrasound or MRI. How is this treated? This condition is treated with medicine that replaces the thyroid hormones that your body does not make. After you begin treatment, it may take several weeks for symptoms to go away. Follow these instructions at home: Take wxrb-iiq-xelyjzw and prescription medicines only as told by your health care provider. If you start taking any new medicines, tell your health care provider. Keep all follow-up visits as told by your health care provider. This is important. ?As your condition improves, your dosage of thyroid hormone medicine may change. ?You will need to have blood tests regularly so that your health care provider can monitor your condition. Contact a health care provider if: Your symptoms do not get better with treatment. You are taking thyroid replacement medicine and you: ?Sweat a lot. ?Have tremors. ?Feel anxious. ?Lose weight rapidly. ?Cannot tolerate heat. ?Have emotional swings. ?Have diarrhea. ?Feel weak. Get help right away if you have: Chest pain. An irregular heartbeat. A rapid heartbeat. Difficulty breathing. Summary Hypothyroidism is when the thyroid gland does not make enough of certain hormones (it is underactive). When the thyroid is underactive, it produces too little of the hormones thyroxine (T4) and triiodothyronine (T3). The most common cause is Wilmer's disease, a disease in which the body's disease-fighting system(immune system) attacks the thyroid gland. The condition can also be caused by viral infections, medicine, , or past radiation treatment to the head or neck. Symptoms may include weight gain, dry skin, constipation, feeling as though you do not have energy,and not being able to tolerate cold. This condition is treated with medicine to replace the thyroid hormones that your body does not make. This information is not intended to replace advice given to you by your health care provider. Make sure you discuss any questions you have with your health care provider. Document Released: 04/25/2006 Document Revised: 04/07/2018 Document Reviewed: 04/05/2018 [employer] Patient Education 2020 [employer]. Follow Up Care 07/28/2022 15:04:30 With:LYNDSAY BARAHONA CNP Address: [address] [place] [address] When: Unknown [facility] [place] 03-16-2023 Evaluation + Plan noteExtracted from: Title:ED Note Author:Jack Young DO Date :07/22/22 Cellulitis (L03.90: Cellulit is, unspecified) Orders: clindamycin, 450 mg = 3 cap(s), Oral, q8hr, X 7 day(s), # 63 cap(s), Refills(s) 0, Pharmacy: [facility]/pharmacy #[id number], 180.3, cm, 07/21/22 20:15:00 EDT, Height/Length Dosing, 170.8, kg, 07/21/22 20:15:00 EDT, Weight Dosing clindamycin + Dextrose 5% in Water intravenous solution 50 mL, 300 mg = 50 mL, IV Piggyback, Once, Stop date 07/22/22 0:01:00 EDT, STAT, Start date 07/22/22 0:01:00 EDT, 100 mL/hr, Infuse over 30 minute(s), 07/22/22 0:01:00 EDT ketorolac, 15 mg = 1 mL, Injection, IV Push, Once, Stop date 07/22/22 0:02:00 EDT, STAT, Start date 07/22/22 0:02:00 EDT, 07/22/22 0:02:00 EDT naproxen, 500 mg = 1 tab(s), Oral, BID, # 28 tab(s), Refills(s) 0, Pharmacy: [facility]/pharmacy #[id number], 180.3, cm, 07/21/22 20:15:00 EDT, Height/Length Dosing, 170.8, kg, 07/21/22 20:15:00 EDT, Weight Dosing Sodium Chloride 0.9% intravenous solution, 1,000 mL, Soln-IV, IV, Once, Stop date 07/22/22 0:02:00 EDT, STAT, Start date 07/22/22 0:02:00 EDT, mL/hr, Infuse over 61, minute(s) Sodium Chloride 0.9% intravenous solution, Soln-IV, Misc, Once, Stop date 07/22/22 0:08:48 EDT, Physician Stop, 07/22/22 0:08:48 EDT Automated Diff Basic Metabolic Panel Blood Culture Charcoal CBC w/ Auto Diff eGFR Extra SST Tube Hepatic Function Panel Lactic Acid Lactic Acid Lipase Level Future Appointments Appointment Date:09/27/2022 02:00:00 PM Scheduled Provider:Candis Holley [facility] Type:ONC Office Visit 30 (FT) Appointment Date:12/20/2022 07:00:00 AM Scheduled Provider:Dana Butler Location:[facility] Appointment Type:FM Open Diagnostic Tests Pending * Blood Culture Charcoal 07/21/22 Future Scheduled Tests Radiology* CT Abdomen/Pelvis w/ Contrast 03/18/22 * CT Chest w/ Contrast 03/18/22 [facility]03-16-2023 Hospital Discharge instructions Patient Education 07/22/2022 01:37:27 Cellulitis, Adult Cellulitis, Adult Cellulitis is a skin infection. The infected area is usually warm, red, swollen, and tender. This condition occurs most often in the arms and lower legs. The infection can travel to the muscles, blood, and underlying tissue and become serious. It is very important to get treated for this condition. What are the causes? Cellulitis is caused by bacteria. The bacteria enter through a break in the skin, such as a cut, burn, insect bite, open sore, or crack. What increases the risk? This condition is more likely to occur in people who: Have a weak body defense system (immune system). Have open wounds on the skin, such as cuts, bennett, bites, and scrapes. Bacteria can enter the body through these open wounds. Are older than 60 years of age. Have diabetes. Have a type of long-lasting (chronic) liver disease (cirrhosis) or kidney disease. Are obese. Have a skin condition such as: ?Itchy rash (eczema). ?Slow movement of blood in the veins (venous stasis). ?Fluid buildup below the skin (edema). Have had radiation therapy. Use IV drugs. What are the signs or symptoms? Symptoms of this condition include: Redness, streaking, or spotting on the skin. Swollen area of the skin. Tenderness or pain when an area of the skin is touched. Warm skin. A fever. Chills. Blisters. How is this diagnosed? This condition is diagnosed based on a medical history and physical exam. You may also have tests, including: Blood tests. Imaging tests. How is this treated? Treatment for this condition may include: Medicines, such as antibiotic medicines or medicines to treat allergies (antihistamines). Supportive care, such as rest and application of cold or warm cloths (compresses) to the skin. Hospital care, if the condition is severe. The infection usually starts to get better within 1 2 days of treatment. Follow these instructions at home: Medicines Take gcje-smv-qvblgqc and prescription medicines only as told by your health care provider. If you were prescribed an antibiotic medicine, take it as told by your health care provider. Do notstop taking the antibiotic even if you start to feel better. General instructions Drink enough fluid to keep your urine pale yellow. Do not touch or rub the infected area. Raise (elevate) the infected area above the level of your heart while you are sitting or lying down. Apply warm or cold compresses to the affected area as told by your health care provider. Keep all follow-up visits as told by your health care provider. This is important. These visits letyour health care provider make sure a more serious infection is not developing. Contact a health care provider if: You have a fever. Your symptoms do not begin to improve within 1 2 days of starting treatment. Your bone or joint underneath the infected area becomes painful after the skin has healed. Your infection returns in the same area or another area. You notice a swollen bump in the infected area. You develop new symptoms. You have a general ill feeling (malaise) with muscle aches and pains. Get help right away if: Your symptoms get worse. You feel very sleepy. You develop vomiting or diarrhea that persists. You notice red streaks coming from the infected area. Your red area gets larger or turns dark in color. These symptoms may represent a serious problem that is an emergency. Do not wait to see if the symptoms will go away. Get medical help right away. Call your local emergency services (911 in the [place] Do not drive yourself to the hospital. Summary Cellulitis is a skin infection. This condition occurs most often in the arms and lower legs. Treatment for this condition may include medicines, such as antibiotic medicines or antihistamines. Take jpjy-dpz-adbjkxl and prescription medicines only as told by your health care provider. If you were prescribed an antibiotic medicine, do not stop taking the antibiotic even if you start to feel better. Contact a health care provider if your symptoms do not begin to improve within 1 2 days of startingtreatment or your symptoms get worse. Keep all follow-up visits as told by your health care provider. This is important. These visits letyour health care provider make sure that a more serious infection is not developing. This information is not intended to replace advice given to you by your health care provider. Make sure you discuss any questions you have with your health care provider. Document Released: 02/02/2006 Document Revised: 09/14/2018 Document Reviewed: 09/14/2018 [employer] Patient Education 2020 [employer]. Follow Up Care 07/21/2022 20:04:16 With:Marisol Bernard Address: [address] [place] [address], [place] [address] [phone] Business (1) When:07/24/2022 [facility]02-13-2023 Hospital Discharge instructions Patient Education 06/21/2022 07:54:34 BMI for Adults BMI for Adults Body mass index (BMI) is a number that is calculated from a person's weight and height. BMI may help to estimate how much of a person's weight is composed of fat. BMI can help identify those who may be at higher risk for certain medical problems. How is BMI used with adults? BMI is used as a screening tool to identify possible weight problems. It is used to check whether aperson is obese, overweight, healthy weight, or underweight. How is BMI calculated? BMI measures your weight and compares it to your height. This can be done either in [place] ([place] or metric measurements. Note that charts are available to help you find your BMI quickly and easily without having to do these calculations yourself. To calculate your BMI in [place] ([place] measurements, your health care provider will: 1.Measure your weight in pounds (lb). 2.Multiply the number of pounds by 703. For example, for a person who weighs 180 lb, multiply that number by 703, which equals [phone]. 3.Measure your height in inches (in). Then multiply that number by itself to get a measurement called inches squared. For example, for a person who is 70 in tall, the inches squared measurement is 70 in x 70 in, which equals 4900 inches squared. 4.Divide the total from Step 2 (number of lb x 703) by the total from Step 3 (inches squared): 126,540 4900 = 25.8. This is your BMI. To calculate your BMI in metric measurements, your health care provider will: 1.Measure your weight in kilograms (kg). 2.Measure your height in meters (m). Then multiply that number by itself to get a measurement called meters squared. For example, for a person who is 1.75 m tall, the meters squared measurement is 1.75 m x 1.75 m, which is equal to 3.1 meters squared. 3.Divide the number of kilograms (your weight) by the meters squared number. In this example: 70 3.1 = 22.6. This is your BMI. How is BMI interpreted? To interpret your results, your health care provider will use BMI charts to identify whether you are underweight, normal weight, overweight, or obese. The following guidelines will be used: Underweight: BMI less than 18.5. Normal weight: BMI between 18.5 and 24.9. Overweight: BMI between 25 and 29.9. Obese: BMI of 30 and above. Please note: Weight includes both fat and muscle, so someone with a muscular build, such as an athlete, may havea BMI that is higher than 24.9. In cases like these, BMI is not an accurate measure of body fat. To determine if excess body fat is the cause of a BMI of 25 or higher, further assessments may needto be done by a health care provider. BMI is usually interpreted in the same way for men and women. Why is BMI a useful tool? BMI is useful in two ways: Identifying a weight problem that may be related to a medical condition, or that may increase the risk for medical problems. Promoting lifestyle and diet changes in order to reach a healthy weight. Summary Body mass index (BMI) is a number that is calculated from a person's weight and height. BMI may help to estimate how much of a person's weight is composed of fat. BMI can help identify those who may be at higher risk for certain medical problems. BMI can be measured using [place] measurements or metric measurements. To interpret your results, your health care provider will use BMI charts to identify whether you are underweight, normal weight, overweight, or obese. This information is not intended to replace advice given to you by your health care provider. Make sure you discuss any questions you have with your health care provider. Document Released: 01/04/2005 Document Revised: 04/07/2018 Document Reviewed: 03/08/2018 [employer] Patient Education 2020 [employer]. 06/21/2022 07:54:32 Upper Respiratory Infection, Adult Upper Respiratory Infection, Adult An upper respiratory infection (URI) is a common viral infection of the nose, throat, and upper airpassages that lead to the lungs. The most common type of URI is the common cold. URIs usually get better on their own, without medical treatment. What are the causes? A URI is caused by a virus. You may catch a virus by: Breathing in droplets from an infected person's cough or sneeze. Touching something that has been exposed to the virus (contaminated) and then touching your mouth, nose, or eyes. What increases the risk? You are more likely to get a URI if: You are very young or very old. It is gabriella or winter. You have close contact with others, such as at a daycare, school, or health care facility. You smoke. You have long-term (chronic) heart or lung disease. You have a weakened disease-fighting (immune) system. You have nasal allergies or asthma. You are experiencing a lot of stress. You work in an area that has poor air circulation. You have poor nutrition. What are the signs or symptoms? A URI usually involves some of the following symptoms: Runny or stuffy (congested) nose. Sneezing. Cough. Sore throat. Headache. Fatigue. Fever. Loss of appetite. Pain in your forehead, behind your eyes, and over your cheekbones (sinus pain). Muscle aches. Redness or irritation of the eyes. Pressure in the ears or face. How is this diagnosed? This condition may be diagnosed based on your medical history and symptoms, and a physical exam. Your health care provider may use a cotton swab to take a mucus sample from your nose (nasal swab). This sample can be tested to determine what virus is causing the illness. How is this treated? URIs usually get better on their own within 7 10 days. You can take steps at home to relieve your symptoms. Medicines cannot cure URIs, but your health care provider may recommend certain medicines to help relieve symptoms, such as: Qhvo-rqv-kafqnud cold medicines. Cough suppressants. Coughing is a type of defense against infection that helps to clear the respiratory system, so take these medicines only as recommended by your health care provider. Fever-reducing medicines. Follow these instructions at home: Activity Rest as needed. If you have a fever, stay home from work or school until your fever is gone or until your health care provider says you are no longer contagious. Your health care provider may have you wear a face mask to prevent your infection from spreading. Relieving symptoms Gargle with a salt-water mixture 3 4 times a day or as needed. To make a salt- water mixture, completely dissolve 1 tsp of salt in 1 cup of warm water. Use a cool-mist humidifier to add moisture to the air. This can help you breathe more easily. Eating and drinking Drink enough fluid to keep your urine pale yellow. Eat soups and other clear broths. General instructions Take ycog-dww-zrohsko and prescription medicines only as told by your health care provider. These include cold medicines, fever reducers, and cough suppressants. Do not use any products that contain nicotine or tobacco, such as cigarettes and e-cigarettes. If you need help quitting, ask your health care provider. Stay away from secondhand smoke. Stay up to date on all immunizations, including the yearly (annual) flu vaccine. Keep all follow-up visits as told by your health care provider. This is important. How to prevent the spread of infection to others URIs can be passed from person to person (are contagious). To prevent the infection from spreading: ?Wash your hands often with soap and water. If soap and water are not available, use hand non cdl driver. ?Avoid touching your mouth, face, eyes, or nose. ?Cough or sneeze into a tissue or your sleeve or elbow instead of into your hand or into the air. Contact a health care provider if: You are getting worse instead of better. You have a fever or chills. Your mucus is brown or red. You have yellow or brown discharge coming from your nose. You have pain in your face, especially when you bend forward. You have swollen neck glands. You have pain while swallowing. You have white areas in the back of your throat. Get help right away if: You have shortness of breath that gets worse. You have severe or persistent: ?Headache. ?Ear pain. ?Sinus pain. ?Chest pain. You have chronic lung disease along with any of the following: ?Wheezing. ?Prolonged cough. ?Coughing up blood. ?A change in your usual mucus. You have a stiff neck. You have changes in your: ?Vision. ?Hearing. ?Thinking. ?Mood. Summary An upper respiratory infection (URI) is a common infection of the nose, throat, and upper air passages that lead to the lungs. A URI is caused by a virus. URIs usually get better on their own within 7 10 days. Medicines cannot cure URIs, but your health care provider may recommend certain medicines to help relieve symptoms. This information is not intended to replace advice given to you by your health care provider. Make sure you discuss any questions you have with your health care provider. Document Released: 10/19/2001 Document Revised: 05/03/2019 Document Reviewed: 12/09/2017 [employer] Patient Education [employer]. 06/21/2022 07:54:26 DASH Eating Plan DASH Eating Plan DASH stands for Dietary Approaches to Stop Hypertension. The DASH eating plan is a healthy eatingplan that has been shown to reduce high blood pressure (hypertension). It may also reduce your riskfor type 2 diabetes, heart disease, and stroke. The DASH eating plan may also help with weight loss. What are tips for following this plan? General guidelines Avoid eating more than 2,300 mg (milligrams) of salt (sodium) a day. If you have hypertension, you may need to reduce your sodium intake to 1,500 mg a day. Limit alcohol intake to no more than 1 drink a day for non women and 2 drinks a day for men. One drink equals 12 oz of beer, 5 oz of wine, or 1 oz of hard liquor. Work with your health care provider to maintain a healthy body weight or to lose weight. Ask what an ideal weight is for you. Get at least 30 minutes of exercise that causes your heart to beat faster (aerobic exercise) most days of the week. Activities may include walking, swimming, or biking. Work with your health care provider or diet and nutrition services associate (dietitian) to adjust your eating plan to your individual calorie needs. Reading food labels Check food labels for the amount of sodium per serving. Choose foods with less than 5 percent of the Daily Value of sodium. Generally, foods with less than 300 mg of sodium per serving fit into this eating plan. To find whole grains, look for the word whole as the first word in the ingredient list. Shopping Buy products labeled as low-sodium or no salt added. Buy fresh foods. Avoid canned foods and premade or frozen meals. Cooking Avoid adding salt when cooking. Use salt-free seasonings or herbs instead of table salt or sea salt. Check with your health care provider or pharmacist before using salt substitutes. Do not alexandre foods. Cook foods using healthy methods such as baking, boiling, grilling, and broiling instead. Cook with heart-healthy oils, such as olive, canola, soybean, or sunflower oil. Meal planning Eat a balanced diet that includes: ?5 or more servings of fruits and vegetables each day. At each meal, try to fill half of your platewith fruits and vegetables. ?Up to 6 8 servings of whole grains each day. ?Less than 6 oz of lean meat, poultry, or fish each day. A 3-oz serving of meat is about the same size as a deck of cards. One egg equals 1 oz. ?2 servings of low-fat dairy each day. ?A serving of nuts, seeds, or beans 5 times each week. ?Heart-healthy fats. Healthy fats called [place]-3 fatty acids are found in foods such as flaxseeds and coldwater fish, like sardines, salmon, and mackerel. Limit how much you eat of the following: ?Canned or prepackaged foods. ?Food that is high in trans fat, such as fried foods. ?Food that is high in saturated fat, such as fatty meat. ?Sweets, desserts, sugary drinks, and other foods with added sugar. ?Full-fat dairy products. Do not salt foods before eating. Try to eat at least 2 vegetarian meals each week. Eat more home-cooked food and less restaurant, buffet, and fast food. When eating at a restaurant, ask that your food be prepared with less salt or no salt, if possible. What foods are recommended? The items listed may not be a complete list. Talk with your dietitian about what dietary choices are best for you. Grains Whole-grain or whole-wheat bread. Whole-grain or whole-wheat pasta. Brown rice. Oatmeal. Quinoa. Bulgur. Whole-grain and low-sodium cereals. Elena bread. Low- fat, low-sodium crackers. Whole-wheat flour tortillas. Vegetables Fresh or frozen vegetables (raw, steamed, roasted, or grilled). Low-sodium or reduced-sodium tomatoand vegetable juice. Low-sodium or reduced-sodium tomato sauce and tomato paste. Low-sodium or reduced-sodium canned vegetables. Fruits All fresh, dried, or frozen fruit. Canned fruit in natural juice (without added sugar). Meat and other protein foods Skinless chicken or turkey. Ground chicken or turkey. Pork with fat trimmed off. Fish and seafood. Egg whites. Dried beans, peas, or lentils. Unsalted nuts, nut butters, and seeds. Unsalted canned beans. Lean cuts of beef with fat trimmed off. Low-sodium, lean deli meat. Dairy Low-fat (1%) or fat-free (skim) milk. Fat-free, low-fat, or reduced-fat cheeses. Nonfat, low-sodiumricotta or cottage cheese. Low-fat or nonfat yogurt. Low-fat, low-sodium cheese. Fats and oils Soft margarine without trans fats. Vegetable oil. Low-fat, reduced-fat, or light mayonnaise and salad dressings (reduced-sodium). Canola, safflower, olive, soybean, and sunflower oils. Avocado. Seasoning and other foods Herbs. Spices. Seasoning mixes without salt. Unsalted popcorn and pretzels. Fat- free sweets. What foods are not recommended? The items listed may not be a complete list. Talk with your dietitian about what dietary choices are best for you. Grains Baked goods made with fat, such as croissants, muffins, or some breads. Dry pasta or rice meal packs. Vegetables Creamed or fried vegetables. Vegetables in a cheese sauce. Regular canned vegetables (not low-sodium or reduced-sodium). Regular canned tomato sauce and paste (not low-sodium or reduced-sodium). Regular tomato and vegetable juice (not low-sodium or reduced-sodium). Pickles. Olives. Fruits Canned fruit in a light or heavy syrup. Fried fruit. Fruit in cream or butter sauce. Meat and other protein foods Fatty cuts of meat. Ribs. Fried meat. Beach. Sausage. Bologna and other processed lunch meats. Salami. Fatback. Hotdogs. Bratwurst. Salted nuts and seeds. Canned beans with added salt. Canned or smoked fish. Whole eggs or egg yolks. Chicken or turkey with skin. Dairy Whole or 2% milk, cream, and cwpk-jzf-yckb. Whole or full-fat cream cheese. Whole-fat or sweetened yogurt. Full-fat cheese. Nondairy creamers. Whipped toppings. Processed cheese and cheese spreads. Fats and oils Butter. Stick margarine. Lard. Shortening. Ghee. Beach fat. Tropical oils, such as coconut, palm kernel, or palm oil. Seasoning and other foods Salted popcorn and pretzels. Onion salt, garlic salt, seasoned salt, table salt, and sea salt. Worcestershire sauce. Tartar sauce. Barbecue sauce. Teriyaki sauce. Soy sauce, including reduced-sodium.Steak sauce. Canned and packaged gravies. Fish sauce. Oyster sauce. Cocktail sauce. Horseradish that you find on the shelf. Ketchup. Mustard. Meat flavorings and tenderizers. Bouillon cubes. Hot sauce and Tabasco sauce. Premade or packaged marinades. Premade or packaged taco seasonings. Relishes. Regular salad dressings. Where to find more information: National Heart, Lung, and Blood [place]: www.nhlbi.nih.gov [place] [employer] Association: www.heart.org Summary The DASH eating plan is a healthy eating plan that has been shown to reduce high blood pressure (hypertension). It may also reduce your risk for type 2 diabetes, heart disease, and stroke. With the DASH eating plan, you should limit salt (sodium) intake to 2,300 mg a day. If you have hypertension, you may need to reduce your sodium intake to 1,500 mg a day. When on the DASH eating plan, aim to eat more fresh fruits and vegetables, whole grains, lean proteins, low-fat dairy, and heart-healthy fats. Work with your health care provider or diet and nutrition services associate (dietitian) to adjust your eating plan to your individual calorie needs. This information is not intended to replace advice given to you by your health care provider. Make sure you discuss any questions you have with your health care provider. Document Released: 04/13/2012 Document Revised: 04/07/2018 Document Reviewed: 04/18/2017 [employer] Patient Education 2020 [employer] 06/21/2022 07:54:25 Hypertension, Adult Hypertension, Adult High blood pressure (hypertension) is when the force of blood pumping through the arteries is too strong. The arteries are the blood vessels that carry blood from the heart throughout the body. Hypertension forces the heart to work harder to pump blood and may cause arteries to become narrow or stiff. Untreated or uncontrolled hypertension can cause a heart attack, heart failure, a stroke, kidneydisease, and other problems. A blood pressure reading consists of a higher number over a lower number. Ideally, your blood pressure should be below 120/80. The first ( top ) number is called the systolic pressure. It is a measure of the pressure in your arteries as your heart beats. The second ( bottom ) number is called the diastolic pressure. It is a measure of the pressure in your arteries as the heart relaxes. What are the causes? The exact cause of this condition is not known. There are some conditions that result in or are related to high blood pressure. What increases the risk? Some risk factors for high blood pressure are under your control. The following factors may make you more likely to develop this condition: Smoking. Having type 2 diabetes mellitus, high cholesterol, or both. Not getting enough exercise or physical activity. Being overweight. Having too much fat, sugar, calories, or salt (sodium) in your diet. Drinking too much alcohol. Some risk factors for high blood pressure may be difficult or impossible to change. Some of these factors include: Having chronic kidney disease. Having a family history of high blood pressure. Age. Risk increases with age. Race. You may be at higher risk if you are . Gender. Men are at higher risk than women before age 45. After age 65, women are at higher risk than men. Having obstructive sleep apnea. Stress. What are the signs or symptoms? High blood pressure may not cause symptoms. Very high blood pressure (hypertensive crisis) may cause: Headache. Anxiety. Shortness of breath. Nosebleed. Nausea and vomiting. Vision changes. Severe chest pain. Seizures. How is this diagnosed? This condition is diagnosed by measuring your blood pressure while you are seated, with your arm resting on a flat surface, your legs uncrossed, and your feet flat on the floor. The cuff of the bloodpressure monitor will be placed directly against the skin of your upper arm at the level of your heart. It should be measured at least twice using the same arm. Certain conditions can cause a difference in blood pressure between your right and left arms. Certain factors can cause blood pressure readings to be lower or higher than normal for a short period of time: When your blood pressure is higher when you are in a health care provider's office than when you are at home, this is called white coat hypertension. Most people with this condition do not need medicines. When your blood pressure is higher at home than when you are in a health care provider's office, this is called masked hypertension. Most people with this condition may need medicines to control blood pressure. If you have a high blood pressure reading during one visit or you have normal blood pressure with other risk factors, you may be asked to: Return on a different day to have your blood pressure checked again. Monitor your blood pressure at home for 1 week or longer. If you are diagnosed with hypertension, you may have other blood or imaging tests to help your health care provider understand your overall risk for other conditions. How is this treated? This condition is treated by making healthy lifestyle changes, such as eating healthy foods, exercising more, and reducing your alcohol intake. Your health care provider may prescribe medicine if lifestyle changes are not enough to get your blood pressure under control, and if: Your systolic blood pressure is above 130. Your diastolic blood pressure is above 80. Your personal target blood pressure may vary depending on your medical conditions, your age, and other factors. Follow these instructions at home: Eating and drinking Eat a diet that is high in fiber and potassium, and low in sodium, added sugar, and fat. An exampleeating plan is called the DASH (Dietary Approaches to Stop Hypertension) diet. To eat this way: ?Eat plenty of fresh fruits and vegetables. Try to fill one half of your plate at each meal with fruits and vegetables. ?Eat whole grains, such as whole-wheat pasta, brown rice, or whole-grain bread. Fill about one fourth of your plate with whole grains. ?Eat or drink low-fat dairy products, such as skim milk or low-fat yogurt. ?Avoid fatty cuts of meat, processed or cured meats, and poultry with skin. Fill about one fourth of your plate with lean proteins, such as fish, chicken without skin, beans, eggs, or tofu. ?Avoid pre-made and processed foods. These tend to be higher in sodium, added sugar, and fat. Reduce your daily sodium intake. Most people with hypertension should eat less than 1,500 mg of sodium a day. Do not drink alcohol if: ?Your health care provider tells you not to drink. ?You are , may be , or are planning to become . If you drink alcohol: ?Limit how much you use to: ?0 1 drink a day for women. ?0 2 drinks a day for men. ?Be aware of how much alcohol is in your drink. In the [place] one drink equals one 12 oz bottle of beer (355 mL), one 5 oz glass of wine (148 mL), or one 1 oz glass of hard liquor (44 mL). Lifestyle Work with your health care provider to maintain a healthy body weight or to lose weight. Ask what an ideal weight is for you. Get at least 30 minutes of exercise most days of the week. Activities may include walking, swimming, or biking. Include exercise to strengthen your muscles (resistance exercise), such as Pilates or lifting weights, as part of your weekly exercise routine. Try to do these types of exercises for 30 minutes at least 3 days a week. Do not use any products that contain nicotine or tobacco, such as cigarettes, e- cigarettes, and chewing tobacco. If you need help quitting, ask your health care provider. Monitor your blood pressure at home as told by your health care provider. Keep all follow-up visits as told by your health care provider. This is important. Medicines Take ijnz-rwz-wvefsja and prescription medicines only as told by your health care provider. Follow directions carefully. Blood pressure medicines must be taken as prescribed. Do not skip doses of blood pressure medicine. Doing this puts you at risk for problems and can makethe medicine less effective. Ask your health care provider about side effects or reactions to medicines that you should watch for. Contact a health care provider if you: Think you are having a reaction to a medicine you are taking. Have headaches that keep coming back (recurring). Feel dizzy. Have swelling in your ankles. Have trouble with your vision. Get help right away if you: Develop a severe headache or confusion. Have unusual weakness or numbness. Feel faint. Have severe pain in your chest or abdomen. Vomit repeatedly. Have trouble breathing. Summary Hypertension is when the force of blood pumping through your arteries is too strong. If this condition is not controlled, it may put you at risk for serious complications. Your personal target blood pressure may vary depending on your medical conditions, your age, and other factors. For most people, a normal blood pressure is less than 120/80. Hypertension is treated with lifestyle changes, medicines, or a combination of both. Lifestyle changes include losing weight, eating a healthy, low-sodium diet, exercising more, and limiting alcohol. This information is not intended to replace advice given to you by your health care provider. Make sure you discuss any questions you have with your health care provider. Document Released: 04/25/2006 Document Revised: 01/03/2019 Document Reviewed: 01/03/2019 [employer] Patient Education 2020 [employer]. 06/21/2022 07:54:22 Gastroesophageal Reflux Disease, Adult Gastroesophageal Reflux Disease, Adult Gastroesophageal reflux (BERNABE) happens when acid from the stomach flows up into the tube that connects the mouth and the stomach (esophagus). Normally, food travels down the esophagus and stays in thestomach to be digested. However, when a person has BERNABE, food and stomach acid sometimes move back up into the esophagus. If this becomes a more serious problem, the person may be diagnosed with a disease called gastroesophageal reflux disease (GERD). GERD occurs when the reflux: Happens often. Causes frequent or severe symptoms. Causes problems such as damage to the esophagus. When stomach acid comes in contact with the esophagus, the acid may cause soreness (inflammation) in the esophagus. Over time, GERD may create small holes (ulcers) in the lining of the esophagus. What are the causes? This condition is caused by a problem with the muscle between the esophagus and the stomach (lower esophageal sphincter, or LES). Normally, the LES muscle closes after food passes through the esophagus to the stomach. When the LES is weakened or abnormal, it does not close properly, and that allowsfood and stomach acid to go back up into the esophagus. The LES can be weakened by certain dietary substances, medicines, and medical conditions, including: Tobacco use. . Having a hiatal hernia. Alcohol use. Certain foods and beverages, such as coffee, chocolate, onions, and peppermint. What increases the risk? You are more likely to develop this condition if you: Have an increased body weight. Have a connective tissue disorder. Use NSAID medicines. What are the signs or symptoms? Symptoms of this condition include: Heartburn. Difficult or painful swallowing. The feeling of having a lump in the throat. A bitter taste in the mouth. Bad breath. Having a large amount of saliva. Having an upset or bloated stomach. Belching. Chest pain. Different conditions can cause chest pain. Make sure you see your health care provider if you experience chest pain. Shortness of breath or wheezing. Ongoing (chronic) cough or a night-time cough. Wearing away of tooth enamel. Weight loss. How is this diagnosed? Your health care provider will take a medical history and perform a physical exam. To determine if you have mild or severe GERD, your health care provider may also monitor how you respond to treatment. You may also have tests, including: A test to examine your stomach and esophagus with a small camera (endoscopy). A test that measures the acidity level in your esophagus. A test that measures how much pressure is on your esophagus. A barium swallow or modified barium swallow test to show the shape, size, and functioning of your esophagus. How is this treated? The goal of treatment is to help relieve your symptoms and to prevent complications. Treatment for this condition may vary depending on how severe your symptoms are. Your health care provider may recommend: Changes to your diet. Medicine. Surgery. Follow these instructions at home: Eating and drinking Follow a diet as recommended by your health care provider. This may involve avoiding foods and drinks such as: ?Coffee and tea (with or without caffeine). ?Drinks that contain alcohol. ?Energy drinks and sports drinks. ?Carbonated drinks or sodas. ?Chocolate and cocoa. ?Peppermint and mint flavorings. ?Garlic and onions. ?Horseradish. ?Spicy and acidic foods, including peppers, chili powder, keane powder, vinegar, hot sauces, and barbecue sauce. ?Bluffs fruit juices and citrus fruits, such as oranges, chris, and limes. ?Tomato-based foods, such as red sauce, chili, salsa, and pizza with red sauce. ?Fried and fatty foods, such as donuts, norwegian fries, potato chips, and high-fat dressings. ?High-fat meats, such as hot dogs and fatty cuts of red and white meats, such as rib eye steak, sausage, ham, and beach. ?High-fat dairy items, such as whole milk, butter, and cream cheese. Eat small, frequent meals instead of large meals. Avoid drinking large amounts of liquid with your meals. Avoid eating meals during the 2 3 hours before bedtime. Avoid lying down right after you eat. Do not exercise right after you eat. Lifestyle Do not use any products that contain nicotine or tobacco, such as cigarettes, e- cigarettes, and chewing tobacco. If you need help quitting, ask your health care provider. Try to reduce your stress by using methods such as yoga or meditation. If you need help reducing stress, ask your health care provider. If you are overweight, reduce your weight to an amount that is healthy for you. Ask your health care provider for guidance about a safe weight loss goal. General instructions Pay attention to any changes in your symptoms. Take bdwj-apa-kbcrefq and prescription medicines only as told by your health care provider. Do not take aspirin, ibuprofen, or other NSAIDs unless your health care provider told you to do so. Wear loose-fitting clothing. Do not wear anything tight around your waist that causes pressure on your abdomen. Raise (elevate) the head of your bed about 6 inches (15 cm). Avoid bending over if this makes your symptoms worse. Keep all follow-up visits as told by your health care provider. This is important. Contact a health care provider if: You have: ?New symptoms. ?Unexplained weight loss. ?Difficulty swallowing or it hurts to swallow. ?Wheezing or a persistent cough. ?A hoarse voice. Your symptoms do not improve with treatment. Get help right away if you: Have pain in your arms, neck, jaw, teeth, or back. Feel sweaty, dizzy, or light-headed. Have chest pain or shortness of breath. Vomit and your vomit looks like blood or coffee grounds. Faint. Have stool that is bloody or black. Cannot swallow, drink, or eat. Summary Gastroesophageal reflux happens when acid from the stomach flows up into the esophagus. GERD is a disease in which the reflux happens often, causes frequent or severe symptoms, or causes problems such as damage to the esophagus. Treatment for this condition may vary depending on how severe your symptoms are. Your health care provider may recommend diet and lifestyle changes, medicine, or surgery. Contact a health care provider if you have new or worsening symptoms. Take myrg-cmu-uktcqzq and prescription medicines only as told by your health care provider. Do not take aspirin, ibuprofen, or other NSAIDs unless your health care provider told you to do so. Keep all follow-up visits as told by your health care provider. This is important. This information is not intended to replace advice given to you by your health care provider. Make sure you discuss any questions you have with your health care provider. Document Released: 02/02/2006 Document Revised: 11/01/2018 Document Reviewed: 11/01/2018 [employer] Patient Education 2020 [employer]. 06/21/2022 07:54:19 Managing Bipolar Disorder Managing Bipolar Disorder When someone is diagnosed with bipolar disorder, the person may be relieved to now know why he or she has felt or behaved a certain way. The person may also feel overwhelmed about the treatment ahead, how to get needed support, and how to deal with the condition each day. With care and support, a person with bipolar disorder can learn to manage his or her symptoms and live with the condition. How to manage lifestyle changes Managing stress Stress is your body's reaction to life changes and events, both good and bad. Stress can play a major role in bipolar disorder, so it is important to learn how to manage stress. Some techniques to help you manage stress include: Meditation, muscle relaxation, and breathing exercises. Exercise. Even a short daily walk can help to lower stress levels. Getting enough good-quality sleep. Too little sleep can cause johnson to start (can trigger johnson). Making a schedule to manage your time. Knowing your daily schedule can help to keep you from feeling overwhelmed by tasks and deadlines. Spending time on hobbies you enjoy. Medicines Your health care provider may suggest certain medicines if he or she feels that they will help improve your condition. Avoid using caffeine, alcohol, and other substances that may prevent your medicines from working properly. It is also important to: Talk with your pharmacist or health care provider about all the medicines that you take, their possible side effects, and which medicines are safe to take together. Make it your goal to take part in all treatment decisions (shared decision- making). Ask about possible side effects of medicines that your health care provider recommends, and tell him or her how youfeel about having those side effects. It is best if shared decision-making with your health care provider is part of your total treatment plan. If you are taking medicines as part of your treatment, do not stop taking medicines before you ask your health care provider if it is safe to stop. You may need to have the medicine slowly decreased (tapered) over time to lower the risk of harmful side effects. Relationships Spend time with people whom you trust and with whom you feel a sense of understanding and calm. Tryto find friends or family members who make you feel safe and can help you control feelings of johnson. Consider going to couples counseling, family education classes, or family therapy to: Educate your loved ones about your condition and offer suggestions about how they can support you. Help resolve conflicts. Help develop communication skills in your relationships. How to recognize changes in your condition Everyone responds differently to treatment for bipolar disorder. Some signs that your condition is improving include: Leveling of your mood. You may have less anger and excitement about daily activities, and your low moods may not be as bad. Your symptoms being less intense. Feeling calm more often. Thinking clearly. Not experiencing consequences for extreme behavior. Feeling like your life is settling down. Your behavior seeming more normal to you and to other people. Some signs that your condition may be getting worse include: Sleep problems. Moods cycling between deep lows and unusually high (excess) energy. Extreme emotions. More anger at loved ones. Staying away from others, or isolating yourself. A feeling of power or superiority. Completing a lot of tasks in a very short amount of time. Unusual thoughts and behaviors. Suicidal thoughts. Follow these instructions at home: Medicines Take qrvf-uvo-bgopoip and prescription medicines only as told by your health care provider or pharmacist. Ask your pharmacist what svok-gov-kqmitxd cold medicines you should avoid. Some medicines can make symptoms worse. General instructions Ask for support from trusted family members or friends to make sure you stay on track with your treatment. Keep a journal to write down your daily moods, medicines, sleep habits, and life events. This may help you have more success with your treatment. Make and follow a routine for daily meal times. Eat healthy foods, such as whole grains, vegetables, and fresh fruit. Try to go to sleep and wake up around the same time every day. Keep all follow-up visits as told by your health care provider. This is important. Where to find support Talking to others Try making a list of the people you may want to tell about your condition, such as the people you trust most. Plan what you are willing and not willing to talk about. Think about your needs ahead of time, and how your friends and family members can support you. Let your loved ones know when they can share advice and when you would just like them to listen. Give your loved ones information about bipolar disorder, and encourage them to learn about the condition. Finances Not all insurance plans cover mental health care, so it is important to check with your insurance carrier. If paying for co-pays or counseling services is a problem, search for a [facility] or [facility] mental health care center. Public mental health care services may be offered there at a low cost or no cost when you are not able to see a private health care provider. If you are taking medicine for depression, you may be able to get the generic form, which may be less expensive than brand-name medicine. Some makers of prescription medicines also offer help to patients who cannot afford the medicines they need. Questions to ask your health care provider: If you are taking medicines: ?How long do I need to take medicine? ?Are there any long-term side effects of my medicine? ?Are there any alternatives to taking medicine? How would I benefit from therapy? How often should I follow up with a health care provider? Contact a health care provider if: Your symptoms get worse or they do not get better with treatment. Get help right away if: You have thoughts about harming yourself or others. If you ever feel like you may hurt yourself or others, or have thoughts about taking your own life,get help right away. You can go to your nearest emergency department or call: Your local emergency services (911 in the [place] A suicide crisis helpline, such as the National Suicide Prevention Lifeline at . Thisis open 24-hours a day. Summary Learning ways to manage stress can help to calm you and may also help your treatment work better. There is a wide range of medicines that can help to treat bipolar disorder. Having healthy relationships can help to make your moods more stable. Contact a health care provider if your symptoms get worse or they do not get better with treatment. This information is not intended to replace advice given to you by your health care provider. Make sure you discuss any questions you have with your health care provider. Document Released: 08/25/2017 Document Revised: 08/17/2019 Document Reviewed: 08/25/2017 [employer] Patient Education 2020 [employer]. 06/21/2022 07:54:15 Anemia Anemia Anemia is a condition in which you do not have enough red blood cells or hemoglobin. Hemoglobin is a substance in red blood cells that carries oxygen. When you do not have enough red blood cells or hemoglobin (are anemic), your body cannot get enough oxygen and your organs may not work properly. Asa result, you may feel very tired or have other problems. What are the causes? Common causes of anemia include: Excessive bleeding. Anemia can be caused by excessive bleeding inside or outside the body, including bleeding from the intestine or from periods in women. Poor nutrition. Long-lasting (chronic) kidney, thyroid, and liver disease. Bone marrow disorders. Cancer and treatments for cancer. HIV (human immunodeficiency virus) and AIDS (acquired immunodeficiency syndrome). Treatments for HIV and AIDS. Spleen problems. Blood disorders. Infections, medicines, and autoimmune disorders that destroy red blood cells. What are the signs or symptoms? Symptoms of this condition include: Minor weakness. Dizziness. Headache. Feeling heartbeats that are irregular or faster than normal (palpitations). Shortness of breath, especially with exercise. Paleness. Cold sensitivity. Indigestion. Nausea. Difficulty sleeping. Difficulty concentrating. Symptoms may occur suddenly or develop slowly. If your anemia is mild, you may not have symptoms. How is this diagnosed? This condition is diagnosed based on: Blood tests. Your medical history. A physical exam. Bone marrow biopsy. Your health care provider may also check your stool (feces) for blood and may do additional testingto look for the cause of your bleeding. You may also have other tests, including: Imaging tests, such as a CT scan or MRI. Endoscopy. Colonoscopy. How is this treated? Treatment for this condition depends on the cause. If you continue to lose a lot of blood, you may need to be treated at a hospital. Treatment may include: Taking supplements of iron, vitamin B12, or folic acid. Taking a hormone medicine (erythropoietin) that can help to stimulate red blood cell growth. Having a blood transfusion. This may be needed if you lose a lot of blood. Making changes to your diet. Having surgery to remove your spleen. Follow these instructions at home: Take kuvl-scs-zpqpnec and prescription medicines only as told by your health care provider. Take supplements only as told by your health care provider. Follow any diet instructions that you were given. Keep all follow-up visits as told by your health care provider. This is important. Contact a health care provider if: You develop new bleeding anywhere in the body. Get help right away if: You are very weak. You are short of breath. You have pain in your abdomen or chest. You are dizzy or feel faint. You have trouble concentrating. You have bloody or black, tarry stools. You vomit repeatedly or you vomit up blood. Summary Anemia is a condition in which you do not have enough red blood cells or enough of a substance in your red blood cells that carries oxygen (hemoglobin). Symptoms may occur suddenly or develop slowly. If your anemia is mild, you may not have symptoms. This condition is diagnosed with blood tests as well as a medical history and physical exam. Other tests may be needed. Treatment for this condition depends on the cause of the anemia. This information is not intended to replace advice given to you by your health care provider. Make sure you discuss any questions you have with your health care provider. Document Released: 06/02/2005 Document Revised: 04/07/2018 Document Reviewed: 05/27/2017 [employer] Patient Education 2020 [employer]. Follow Up Care 04/21/2022 14:39:20 With:Marisol Bernard CNP Address: [address] [place] [phone] When:6 months [facility] 12-14-2022 Hospital Discharge instructions Patient Education 04/21/2022 14:44:48 BMI for Adults BMI for Adults Body mass index (BMI) is a number that is calculated from a person's weight and height. BMI may help to estimate how much of a person's weight is composed of fat. BMI can help identify those who may be at higher risk for certain medical problems. How is BMI used with adults? BMI is used as a screening tool to identify possible weight problems. It is used to check whether aperson is obese, overweight, healthy weight, or underweight. How is BMI calculated? BMI measures your weight and compares it to your height. This can be done either in [place] ([place] or metric measurements. Note that charts are available to help you find your BMI quickly and easily without having to do these calculations yourself. To calculate your BMI in [place] measurements, your health care provider will: 1.Measure your weight in pounds (lb). 2.Multiply the number of pounds by 703. For example, for a person who weighs 180 lb, multiply that number by 703, which equals 126,540. 3.Measure your height in inches (in). Then multiply that number by itself to get a measurement called inches squared. For example, for a person who is 70 in tall, the inches squared measurement is 70 in x 70 in, which equals 4900 inches squared. 4.Divide the total from Step 2 (number of lb x 703) by the total from Step 3 (inches squared): 126,540 4900 = 25.8. This is your BMI. To calculate your BMI in metric measurements, your health care provider will: 1.Measure your weight in kilograms (kg). 2.Measure your height in meters (m). Then multiply that number by itself to get a measurement called meters squared. For example, for a person who is 1.75 m tall, the meters squared measurement is 1.75 m x 1.75 m, which is equal to 3.1 meters squared. 3.Divide the number of kilograms (your weight) by the meters squared number. In this example: 70 3.1 = 22.6. This is your BMI. How is BMI interpreted? To interpret your results, your health care provider will use BMI charts to identify whether you are underweight, normal weight, overweight, or obese. The following guidelines will be used: Underweight: BMI less than 18.5. Normal weight: BMI between 18.5 and 24.9. Overweight: BMI between 25 and 29.9. Obese: BMI of 30 and above. Please note: Weight includes both fat and muscle, so someone with a muscular build, such as an athlete, may havea BMI that is higher than 24.9. In cases like these, BMI is not an accurate measure of body fat. To determine if excess body fat is the cause of a BMI of 25 or higher, further assessments may needto be done by a health care provider. BMI is usually interpreted in the same way for men and women. Why is BMI a useful tool? BMI is useful in two ways: Identifying a weight problem that may be related to a medical condition, or that may increase the risk for medical problems. Promoting lifestyle and diet changes in order to reach a healthy weight. Summary Body mass index (BMI) is a number that is calculated from a person's weight and height. BMI may help to estimate how much of a person's weight is composed of fat. BMI can help identify those who may be at higher risk for certain medical problems. BMI can be measured using Nauruan measurements or metric measurements. To interpret your results, your health care provider will use BMI charts to identify whether you are underweight, normal weight, overweight, or obese. This information is not intended to replace advice given to you by your health care provider. Make sure you discuss any questions you have with your health care provider. Document Released: 01/04/2005 Document Revised: 04/07/2018 Document Reviewed: 03/08/2018 [employer] Patient Education 2020 [employer]. 04/21/2022 14:44:43 Sinusitis, Adult Sinusitis, Adult Sinusitis is inflammation of your sinuses. Sinuses are hollow spaces in the bones around your face.Your sinuses are located: Around your eyes. In the middle of your forehead. Behind your nose. In your cheekbones. Mucus normally drains out of your sinuses. When your nasal tissues become inflamed or swollen, mucus can become trapped or blocked. This allows bacteria, viruses, and fungi to grow, which leads to infection. Most infections of the sinuses are caused by a virus. Sinusitis can develop quickly. It can last for up to 4 weeks (acute) or for more than 12 weeks (chronic). Sinusitis often develops after a cold. What are the causes? This condition is caused by anything that creates swelling in the sinuses or stops mucus from draining. This includes: Allergies. Asthma. Infection from bacteria or viruses. Deformities or blockages in your nose or sinuses. Abnormal growths in the nose (nasal polyps). Pollutants, such as chemicals or irritants in the air. Infection from fungi (rare). What increases the risk? You are more likely to develop this condition if you: Have a weak body defense system (immune system). Do a lot of swimming or diving. Overuse nasal sprays. Smoke. What are the signs or symptoms? The main symptoms of this condition are pain and a feeling of pressure around the affected sinuses.Other symptoms include: Stuffy nose or congestion. Thick drainage from your nose. Swelling and warmth over the affected sinuses. Headache. Upper toothache. A cough that may get worse at night. Extra mucus that collects in the throat or the back of the nose (postnasal drip). Decreased sense of smell and taste. Fatigue. A fever. Sore throat. Bad breath. How is this diagnosed? This condition is diagnosed based on: Your symptoms. Your medical history. A physical exam. Tests to find out if your condition is acute or chronic. This may include: ?Checking your nose for nasal polyps. ?Viewing your sinuses using a device that has a light (endoscope). ?Testing for allergies or bacteria. ?Imaging tests, such as an MRI or CT scan. In rare cases, a bone biopsy may be done to rule out more serious types of fungal sinus disease. How is this treated? Treatment for sinusitis depends on the cause and whether your condition is chronic or acute. If caused by a virus, your symptoms should go away on their own within 10 days. You may be given medicines to relieve symptoms. They include: ?Medicines that shrink swollen nasal passages (topical intranasal decongestants). ?Medicines that treat allergies (antihistamines). ?A spray that eases inflammation of the nostrils (topical intranasal corticosteroids). ?Rinses that help get rid of thick mucus in your nose (nasal saline washes). If caused by bacteria, your health care provider may recommend waiting to see if your symptoms improve. Most bacterial infections will get better without antibiotic medicine. You may be given antibiotics if you have: ?A severe infection. ?A weak immune system. If caused by narrow nasal passages or nasal polyps, you may need to have surgery. Follow these instructions at home: Medicines Take, use, or apply [id number]-hao-[id number] and prescription medicines only as told by your health care provider. These may include nasal sprays. If you were prescribed an antibiotic medicine, take it as told by your health care provider. Do notstop taking the antibiotic even if you start to feel better. Hydrate and humidify Drink enough fluid to keep your urine pale yellow. Staying hydrated will help to thin your mucus. Use a cool mist humidifier to keep the humidity level in your home above 50%. Inhale steam for 10 15 minutes, 3 4 times a day, or as told by your health care provider. You can do this in the bathroom while a hot shower is running. Limit your exposure to cool or dry air. Rest Rest as much as possible. Sleep with your head raised (elevated). Make sure you get enough sleep each night. General instructions Apply a warm, moist washcloth to your face 3 4 times a day or as told by your health care provider.This will help with discomfort. Wash your hands often with soap and water to reduce your exposure to germs. If soap and water are not available, use hand non cdl driver. Do not smoke. Avoid being around people who are smoking (secondhand smoke). Keep all follow-up visits as told by your health care provider. This is important. Contact a health care provider if: You have a fever. Your symptoms get worse. Your symptoms do not improve within 10 days. Get help right away if: You have a severe headache. You have persistent vomiting. You have severe pain or swelling around your face or eyes. You have vision problems. You develop confusion. Your neck is stiff. You have trouble breathing. Summary Sinusitis is soreness and inflammation of your sinuses. Sinuses are hollow spaces in the bones around your face. This condition is caused by nasal tissues that become inflamed or swollen. The swelling traps or blocks the flow of mucus. This allows bacteria, viruses, and fungi to grow, which leads to infection. If you were prescribed an antibiotic medicine, take it as told by your health care provider. Do notstop taking the antibiotic even if you start to feel better. Keep all follow-up visits as told by your health care provider. This is important. This information is not intended to replace advice given to you by your health care provider. Make sure you discuss any questions you have with your health care provider. Document Released: 04/25/2006 Document Revised: 09/25/2018 Document Reviewed: 09/25/2018 [employer] Patient Education 2019 [employer]. Follow Up Care 02/25/2022 11:08:34 With:Marisol Bernard CNP Address: [place] [id number]- [phone] When:3 months [facility] 05-17-2022 NoteHNO ID: [id number] Author: Rajinder Sofia APRN.MILLER APPRENTICE Service: ? Author Type: Nurse Specialist Type: Progress Notes Filed: 09/25/2021 7:09 AM Note Text: [facility] NOTE NAME: FLEX PINTO NO.: [id number] DATE OF SERVICE: 09/22/2021 [facility] DATE OF : 1980 REASON FOR VISIT: The patient is a resident of [facility]. This is a discharge visit for morbid obesity and chronic pain. Upon entering the room, found the patient lying in bed. The patient does not appear to be in distress or discomfort. The patient appears to be in very good spirits. The patient states is ready to leave. The patient states is anxious to go home and will be going home with her parents and daughter. The patient states that she has no concerns of going home. DATE OF ADMISSION: February 05, 2021 DATE OF DISCHARGE: September 22, 2021 MEDICATIONS: 1. Gabapentin 300 mg every morning and bedtime for neuropathy. 2. Prochlorperazine 10 mg 3 times a day for nausea, vomiting. 3. Metformin 500 mg every morning and bedtime for diabetes. 4. Lasix 20 mg every Tuesday, Tuesday and Tuesday for congestive heart failure. 5. Melatonin 5 mg at bedtime for insomnia. 6. Eliquis 5 mg every morning and bedtime for preventative of blood clotting. 7. Salonpas pain relieving patch apply to chest in the morning for pain. 8. Lexapro 20 mg in the morning for depression. 9. The patient also has p.r.n. medications of Benzonatate for cough, Vistaril for anxiety, acetaminophen, Zofran, Proventil, Ventolin, bisacodyl, and Milk of Magnesia. LABORATORY DATA: CBC report date June 02, 2021. Abnormals: RDW 19.1, platelets 130. All other labs within normal range. Basic metabolic panel report date July 08, 2021. Abnormals: Potassium 5.4. All other labs within normal range. Hemoglobin A1c 6.3. SUBJECTIVE DATA: Upon entering the room, found the patient lying in bed, watching television. The patient does not appear to be in distress or discomfort. The patient states she has no complaints at this time. No pain, no cough, no shortness of breath. No fever, chills, or nausea. States she has been eating and drinking well. Denies bowel or bladder dysfunction. Staff reports patient has been up and working with therapy and has been up walking and has been using up and down the stairs, although the patient is limited on stair use. OBJECTIVE DATA: Temp 97.3, blood pressure 126/78, pulse 82, respirations 18, pulse ox 98% on room air. Weight 422 pounds. Respiratory: Respirations are easy and unlabored with patient at rest. Lung sounds are clear. Heart: Heart rate and rhythm regular. Abdomen: Soft, nontender with palpation. Bowel sounds present x4. Extremities: Mildly edematous. Psych: The patient is calm, alert, and pleasant conversation. The patient is alert and oriented x3. IMPRESSION AND PLAN: 1. Morbid obesity with chronic and generalized weakness. The patient has progressed with therapy services. We will continue to home. The patient currently is on acetaminophen, Salonpas and Percocet as needed and gabapentin. 2. Diabetes. The patient has good glycemic control. Last blood sugar 121. Currently on metformin. 3. Anxiety and depression. The patient is calm, cooperative. The patient is currently on Lexapro, Vistaril. 4. Lymphoma. When we saw, the patient is currently on Eliquis. 5. Congestive heart failure. Continue with Lasix. The patient is stable at time of discharge. The patient will continue to follow with primary care physician. The patient will continue to follow with oncology services as needed. The patient will follow with psychiatric services as needed. The patient will go home with current medications, current labs and current treatments. The patient will follow with home health agency, physical and occupational therapy. The patient is authorized to be discharged home. Time spent doing discharge greater than 31 minutes. DICTATED BY: CARMELA Hernandes/Nabila JOB# [id number] cc:[facility]05-17-2022 History of Present illness Narrative* Rajinder Sofia APRN.MILLER APPRENTICE - 09/22/2021 12:00 AM EDT [facility] NOTE NAME: FLEX PINTO NO.: [id number] DATE OF SERVICE: 09/22/2021 [facility] DATE OF : 1980 REASON FOR VISIT: The patient is a resident of [facility]. This is a discharge visit for morbid obesity and chronic pain. Upon entering the room, found the patient lying in bed. The patient does not appear to be in distress or discomfort. The patient appears to be in very good spirits. The patient states is ready to leave. The patient states is anxious to go home and will be going home with herparents and daughter. The patient states that she has no concerns of going home. DATE OF ADMISSION: February 05, 2021 DATE OF DISCHARGE: September 22, 2021 MEDICATIONS: 1. Gabapentin 300 mg every morning and bedtime for neuropathy. 2. Prochlorperazine 10 mg 3 times a day for nausea, vomiting. 3. Metformin 500 mg every morning and bedtime for diabetes. 4. Lasix 20 mgevery Tuesday, Tuesday and Tuesday for congestive heart failure. 5. Melatonin 5 mg at bedtime for insomnia. 6. Eliquis 5 mg every morning and bedtime for preventative of blood clotting. 7. Salonpas pain relieving patch apply to chest in the morning for pain. 8. Lexapro 20 mg in the morning for depression. 9. The patient also has p.r.n. medications of Benzonatate for cough, Vistaril for anxiety, acetaminophen, Zofran, Proventil, Ventolin, bisacodyl, and Milk of Magnesia. LABORATORY DATA: CBC report date June 02, 2021. Abnormals: RDW 19.1, platelets 130. All other labs within normal range. Basic metabolic panel report date July 08, 2021. Abnormals: Potassium 5.4. All other labs within normal range. Hemoglobin A1c 6.3. SUBJECTIVE DATA: Upon entering the room, found the patient lying in bed, watching television. The patient does not appear to be in distress or discomfort. The patient states she has no complaints at this time. No pain, no cough, no shortness of breath. No fever, chills, or nausea. States she has been eating and drinking well. Denies bowel or bladder dysfunction. Staff reports patient has been up and working with therapy and has been up walking and has been using up and down the stairs, althoughthe patient is limited on stair use. OBJECTIVE DATA: Temp 97.3, blood pressure 126/78, pulse 82, respirations 18, pulse ox 98% on room air. Weight 422 pounds. Respiratory: Respirations are easy and unlabored with patient at rest. Lung sounds are clear. Heart: Heart rate and rhythm regular. Abdomen: Soft, nontender with palpation. Bowel sounds present x4. Extremities: Mildly edematous. Psych: The patient is calm, alert, and pleasant conversation. The patient is alert and oriented x3. IMPRESSION AND PLAN: 1. Morbid obesity with chronic and generalized weakness. The patient has progressed with therapy services. We will continue to home. The patient currently is on acetaminophen, Salonpas and Percocet as needed and gabapentin. 2. Diabetes. The patient has good glycemic control. Last blood sugar 121. Currently on metformin. 3. Anxiety and depression. The patient is calm, cooperative. The patient is currently on Lexapro, Vistaril. 4. Lymphoma. When we saw, the patient is currently on Eliquis. 5. Congestive heart failure. Continue with Lasix. The patient is stable at time of discharge. The patient will continue to follow with primary care physician. The patient will continue to follow with oncology services as needed. The patient will follow with psychiatric services as needed. The patient will go home with current medications, current labs and current treatments. The patientwill follow with home health agency, physical and occupational therapy. The patient is authorized to be discharged home. Time spent doing discharge greater than 31 minutes. DICTATED BY: CARMELA Hernandes JOB# [id number] cc:[facility] documented in this encounterMadison Health04-12-2022 NoteHNO ID: [id number] Author: Mar Beck MD Service: ? Author Type: Physician Type: Progress Notes Filed: 08/19/2021 5:59 PM Note Text: [facility] NOTE NAME: FLEX PINTO NO.: [id number] DATE OF SERVICE: 08/18/2021 [facility] DATE OF : 1980 MONTHLY AND ACUTE EVALUATION Visit was made with proper PPE. CHIEF COMPLAINT: 1. toothache on the left upper oral cavity area. 2. Anticoagulation for recurrent DVT/PE. 3. Osteosarcoma. 4. Neuropathy. 5. Morbid obesity. 6. Type 2 diabetes. H AND P: This is a [place] care resident in this facility. The goal is for her to be so mobile that she can be discharged to community, but this is not an easy task. The patient now has pain in the right upper quadrant of the mouth and I made an evaluation and it appears to be infected, but not an abscess. The patient does not have fever, no vomiting and she is tolerating oral intake at this time. Past medical history, social history, surgical history, family history and functional history all unchanged and in the chart for review. CODE STATUS: Full code. ALLERGIES: PENICILLIN, VANCOMYCIN, ZOSYN, DARVOCET. REVIEW OF SYSTEMS: Denies chest pain. No shortness of breath. No nausea or vomiting. Good oral intake. No symptoms. Musculoskeletal is improved, but the oral pain is present. MEDICATIONS CURRENTLY USING: In the chart for review. PHYSICAL EXAM: Blood pressure is 103/66 with a temp of 97.8, pulse 91, respirations 18, saturating 96% that is on room air. Her weight is 413. Last month it was 412 and before that 433. So she has lost 20 pounds and then she stopped there. Since she has been here she lost some weight, but minimally with the weight that we would like her to lose. The patient is awake, alert, in a little discomfort because of the pain in the oral cavity. Eyes: PERRLA. Mucosa is moist. Oral cavity does not have thrush. Mucosas are okay. I wore gloves and light to evaluate the oral cavity. In the left upper quadrant the patient has 1 missing tooth. Then she has another tooth that is broken and then she has 1 that appears to have a cavity, but the gums are okay and she does not have any discharge, no odor or lymphadenopathy in the radicular or cervical area. Neck is supple. Lungs: Clear to auscultation bilaterally. No crackles, wheezes or rhonchi. Cardiac sounds are regular in rate and rhythm. Abdomen is soft, nontender or distended. No leg edema. BLOOD WORK RESULTS: Evaluated and in the chart for review. IMPRESSION AND DIAGNOSES: 1. Tooth infection in the left upper quadrant of the mouth. We will do clindamycin as THE PATIENT IS ALLERGIC TO PENICILLIN 300 mg t.i.d. for 7 days plus probiotic for 14 days and referral for dentist. She does not need any CBC at this time. The patient does not have any other general symptom. 2. Morbid obesity. We again talked to her about the importance of decreasing her oral intake to improve her mobility and functionality. The patient is not interested at this time. 3. Type 2 diabetes. Her A1c level was 6.2 recently last month. She was using metformin, so we will continue with that. 4. 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 The patient is off the long acting opioid. She is on oxycodone as needed, but she was taking barely, but now with the oral cavity pain she is taking it a little bit more frequently which we acknowledged that is a problem, so we will keep it like that. 5. Anxiety. She is on Lexapro 20 plus Vistaril as needed. Psychiatry is following on that regard as well. DICTATED BY: MD CLAUDIO METZGER/Nabila JOB# [id number] cc:[facility]04-12-2022 NoteHNO ID: [id number] Author: Gamal Yin PA-C Service: ? Author Type: Physician Veterinary Medicine Scientist Type: Progress Notes Filed: 08/18/2021 8:58 AM Note Text: appt cancelled.[facility]04-12-2022 History of Present illness Narrative* Gamal Yin PA-C - 08/18/2021 8:57 AM EDT appt cancelled. documented in this encounterMadison Health04-12-2022 History of Present illness Narrative* Mar Beck MD - 08/18/2021 12:00 AM EDT [facility] NOTE NAME: FLEX PINTO NO.: [id number] DATE OF SERVICE: 08/18/2021 [facility] DATE OF : 1980 MONTHLY AND ACUTE EVALUATION Visit was made with proper PPE. CHIEF COMPLAINT: 1. toothache on the left upper oral cavity area. 2. Anticoagulation for recurrent DVT/PE. 3. Osteosarcoma. 4. Neuropathy. 5. Morbid obesity. 6. Type 2 diabetes. H AND P: This is a [employer] care resident in this facility. The goal is for her to be so mobile that she can be discharged to community, but this is not an easy task. The patient now has pain in theright upper quadrant of the mouth and I made an evaluation and it appears to be infected, but not an abscess. The patient does not have fever, no vomiting and she is tolerating oral intake at this time. Past medical history, social history, surgical history, family history and functional history all unchanged and in the chart for review. CODE STATUS: Full code. ALLERGIES: PENICILLIN, VANCOMYCIN, ZOSYN, DARVOCET. REVIEW OF SYSTEMS: Denies chest pain. No shortness of breath. No nausea or vomiting. Good oral intake. No symptoms. Musculoskeletal is improved, but the oral pain is present. MEDICATIONS CURRENTLY USING: In the chart for review. PHYSICAL EXAM: Blood pressure is 103/66 with a temp of 97.8, pulse 91, respirations 18, saturating 96% that is on room air. Her weight is 413. Last month it was 412 and before that 433. So she has lost 20 pounds and then she stopped there. Since she has been here she lost some weight, but minimallywith the weight that we would like her to lose. The patient is awake, alert, in a little discomfortbecause of the pain in the oral cavity. Eyes: PERRLA. Mucosa is moist. Oral cavity does not have thrush. Mucosas are okay. I wore gloves and light to evaluate the oral cavity. In the left upper quadrant the patient has 1 missing tooth. Then she has another tooth that is broken and then she has 1 that appears to have a cavity, but the gums are okay and she does not have any discharge, no odor or lymphadenopathy in the radicular or cervical area. Neck is supple. Lungs: Clear to auscultation bilaterally. No crackles, wheezes or rhonchi. Cardiac sounds are regular in rate and rhythm. Abdomen is soft, nontender or distended. No leg edema. BLOOD WORK RESULTS: Evaluated and in the chart for review. IMPRESSION AND DIAGNOSES: 1. Tooth infection in the left upper quadrant of the mouth. We will do clindamycin as THE PATIENT IS ALLERGIC TO PENICILLIN 300 mg t.i.d. for 7 days plus probiotic for 14 days and referral for dentist. She does not need any CBC at this time. The patient does not have any other general symptom. 2. Morbid obesity. We again talked to her about the importance of decreasing her oral intake to improve her mobility and functionality. The patient is not interested at this time. 3. Type 2 diabetes.Her A1c level was 6.2 recently last month. She was using metformin, so we will continue with that. 4. 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 The patient is off the long acting opioid. She is on oxycodone as needed, but she was taking barely, but now with the oral cavity pain she is taking it a little bit more frequently which we acknowledged that is a problem, so we will keep it like that. 5. Anxiety. She is on Lexapro 20 plus Vistaril as needed. Psychiatry is following on that regard aswell. DICTATED BY: MD CLAUDIO METZGER/Nabila JOB# [id number] cc:[facility] documented in this encounterMadison Health03-25-2022 NoteHNO ID: [id number] Author: Jenny France PA-C Service: ? Author Type: Physician Veterinary Medicine Scientist Type: Progress Notes Filed: 08/03/2021 4:59 PM Note Text: [facility] NOTE NAME: FLEX PINTO NO.: [id number] DATE OF SERVICE: 07/31/2021 [facility] DATE OF : 1980 CHIEF COMPLAINT: Monthly followup visit for type 2 diabetes mellitus, anxiety, lymphoma, and other medical issues. SUBJECTIVE FINDINGS: The patient was seen in her room at [facility], lying in bed. She had no particular complaints for me today. She was recently seen by Orthopedics for her right hip pain, who felt that the pain was related more to right ischial bursitis. They recommended ongoing therapy and weightbearing as tolerated. She has been being weaned off her pain medications and seems to be doing quite well with this. She had no complaints of significant pain or discomfort for me today. Overall blood sugars have been well controlled with recent hemoglobin A1c being 6.3. Her weight is down to 412 pounds, which is a rather significant loss of about 20 pounds over the last few months. She relates that she is really working hard with this. She denies any chest pain, shortness of breath, fever, chills, or cough. REVIEW OF SYSTEMS: The patient relates that she is not having any bowel issues, melena, or hematochezia. She is not having any urinary issues and is voiding well. She relates to me today that her goal is to improve enough to get out of the facility. MEDICATIONS: Medications reviewed [facility]. CODE STATUS: Code status is full code. PHYSICAL EXAMINATION: Temp 97, pulse 64, respirations 18, BP 117/73, pulse ox 95%. Weight 412.4 pounds. Examination revealed a morbidly obese woman, lying in bed. She appeared comfortable and in no distress. She was mentating well. Skin turgor good. HEENT: Mucosa moist. Neck: No JVD. Heart: Currently regular rate and rhythm without murmur. Lungs: Clear throughout. Abdomen: Obese, positive bowel sounds, soft, no obvious tenderness, guarding, or rebound. Lower extremities: No significant edema. ASSESSMENT AND PLAN: 1. Type 2 diabetes mellitus. Blood sugars overall very well controlled on metformin and continue to monitor. 2. Anxiety and depression. Overall stable on current regimen, which includes Lexapro and p.r.n. Vistaril. She does not seem to be using much of the Vistaril. 3. History of B-cell lymphoma, recent imaging does not demonstrate recurrence per the orthopedic note. We will continue to advance activity and physical therapy. 4. Morbid obesity. Continue supportive care. 5. Generalized weakness. Continue therapies as ordered. 6. Apparent history of deep vein thrombosis. Continue Eliquis. DICTATED BY: Jenny France PA-C PG/Nabila JOB# [id number] cc:[facility] History of Present illness Narrative* Jenny France PA-C - 07/31/2021 12:00 AM EDT [facility] NOTE NAME: FLEX PINTO NO.: [id number] DATE OF SERVICE: 07/31/2021 [facility] DATE OF : 1980 CHIEF COMPLAINT: Monthly followup visit for type 2 diabetes mellitus, anxiety, lymphoma, and other medical issues. SUBJECTIVE FINDINGS: The patient was seen in her room at [facility], lying in bed. She had no particular complaints for me today. She was recently seen by Orthopedics for her right hippain, who felt that the pain was related more to right ischial bursitis. They recommended ongoing therapy and weightbearing as tolerated. She has been being weaned off her pain medications and seems to be doing quite well with this. She had no complaints of significant pain or discomfort for me today. Overall blood sugars have been well controlled with recent hemoglobin A1c being 6.3. Her weight is down to 412 pounds, which is a rather significant loss of about 20 pounds over the last few months. She relates that she is really working hard with this. She denies any chest pain, shortness of breath, fever, chills, or cough. REVIEW OF SYSTEMS: The patient relates that she is not having any bowel issues, melena, or hematochezia. She is not having any urinary issues and is voiding well. She relates to me today that her goal is to improve enough to get out of the facility. MEDICATIONS: Medications reviewed in the penit[facility]iary record. CODE STATUS: Code status is full code. PHYSICAL EXAMINATION: Temp 97, pulse 64, respirations 18, BP 117/73, pulse ox 95%. Weight 412.4 pounds. Examination revealed a morbidly obese woman, lying in bed. She appeared comfortable and in no distress. She was mentating well. Skin turgor good. HEENT: Mucosa moist. Neck: No JVD. Heart: Currently regular rate and rhythm without murmur. Lungs: Clear throughout. Abdomen: Obese, positive bowel sounds, soft, no obvious tenderness, guarding, or rebound. Lower extremities: No significant edema. ASSESSMENT AND PLAN: 1. Type 2 diabetes mellitus. Blood sugars overall very well controlled on metformin and continue tomonitor. 2. Anxiety and depression. Overall stable on current regimen, which includes Lexapro and p.r.n. Vistaril. She does not seem to be using much of the Vistaril. 3. History of B-cell lymphoma, recent imaging does not demonstrate recurrence per the orthopedic note. We will continue to advance activity and physical therapy. 4. Morbid obesity. Continue supportive care. 5. Generalized weakness. Continue therapies as ordered. 6. Apparent history of deep vein thrombosis. Continue Eliquis. DICTATED BY: Jenny France PA-C PG/Nabila JOB# [id number] cc:[facility] documented in this encounterMadison Health03-24-2022 NoteHNO ID: [id number] Author: Cliff Flores DPM Service: ? Author Type: Physician Type: Progress Notes Filed: 07/30/2021 1:27 PM Note Text: Lisa Heart : 1980 [facility]ent[facility] PCP: SANTIAGO Date of Last Visit: 06/30 PAST MEDICAL HISTORY Diagnosis Date - Abdominal pain - Anemia - Cellulitis of leg, left - Cellulitis of right leg - Costochondritis - Dizzy spells - DM type 2 (diabetes mellitus, type 2) ([facility]) - DVT (deep venous thrombosis) ([facility]) 09/[address] Saldana - Edema lower extremity edema, bilateral - GERD (gastroesophageal reflux disease) - Headache(784.0) - Menorrhagia - Morbid obesity ([facility]) - Orthostatic hypotension - TYLER (obstructive sleep apnea) - Pulmonary emboli ([facility]) Current Outpatient Medications Medication Sig - megestrol (MEGACE) 40 mg tablet Take one(1) tablet daily and Increase to twice daily if bleeding worsening - RIVAROXABAN (XARELTO ORAL) Take 20 mg by mouth once daily. - HYDROcodone-acetaminophen (NORCO) 5-325 mg per tablet Take 1 tablet by mouth every 6 hours as needed. - gabapentin (NEURONTIN) 100 mg capsule Take 100 mg by mouth three times daily. - Multivitamin capsule Take 1 capsule by mouth once daily. - FERROUS SULFATE ORAL Take by mouth. - ALPRAZolam (XANAX) 1 mg tablet Take 1 mg by mouth at bedtime as needed. - metoclopramide HCl (REGLAN) 10 mg tablet Take 10 mg by mouth four times daily. - bumetanide (BUMEX) 1 mg tablet Take 1 mg by mouth once daily. - pantoprazole DR (PROTONIX) 40 mg tablet Take 40 mg by mouth once daily. - metFORMIN ER (FORTAMET) 1,000 mg 24 hr tablet Take 1,000 mg by mouth twice daily with meals. No current facility-administered medications for this visit. ALLERGIES Allergen Reactions - Darvocet A500 [Prop* Hives - Penicillins Other: See Comments - Vancomycin Unknown - Zosyn [Piperacillin* Unknown Subjective: Lisa is a 40 year old female year old DIABETIC who presents today for evaluation and treatment of painful digital nail deformities as well as generalized foot care. The patient has been unable to provide self nail care due to the severe nature of deformity which causes pressure and limits the patient's ability to walk in shoe gear without pain. Patient has attempted self debridement using a pumice stone and specialized nail instrument with no success. Patient advised not to attempt self care. Class B Findings: Decrease or absence of hair growth, Pigmentary changes, Skin texture (thin, shiny) and Nail changes (thickening) Objective: Each digital nail on the right 1 and the left 1 is elongated, thickened, ridged, lysing with friable subungual debris which, after debridement to underlying nail bed, reveals a characteristic fungal/yeast/mold odor and consistency. There is no surrounding cellulitis, deep incurvation, or evidence of bacterial infection. Class findings include normal pedal pulses, lack of digital/pedal hair growth, the above noted nail changes, some telangectasias and lower leg edema bilaterally. Lower Extremity Edema: yes: B/L Assessment: Symptomatic onychomycosis digital nails toes 1 Rt 1 Lt. Examination of individual toenails: R5 is normal. R4 is normal. R3 is normal. R2 is normal. R1 is brittle, discolored, dystrophic, elongated, painful, yellow with subungual debris. L1 is brittle, discolored, dystrophic, elongated, painful, yellow, with subungual debris. L2 is normal. L3 is normal. L4 is normal. L5 is normal. Plan: The offending nail margins were mechanically and electrically debrided to the level of normal underlying nail bed with good relief obtained as evidenced by pain free palpation of the digits. The patient will be followed to maintain the length and thickness of their nails as best as possible. Patient relates painful ambulation. We will see her back on an as needed basis or sooner should problems arise. SLIGHT INCURVATION OF NAIL BORDERS B/L GRT TOES. REMOVED NO FURTHER TX NEEDED, NURSING ADVISED Cliff Flores DPM Encounter Diagnosis ICD-10-CM 1. Pain due to onychomycosis of toenail of left foot B35.1 DEBRIDEMENT OF NAIL(S), 1-5 M79.675 2. Pain due to onychomycosis of toenail of right foot B35.1 DEBRIDEMENT OF NAIL(S), 1-5 M79.674 3. 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 Z79.01 DEBRIDEMENT OF NAIL(S), 1-5C[facility] of Present illness Narrative* Cliff Flores DPM - 07/30/2021 1:25 PM EDT Lisa Heart : 1980 Penitentiary: [facility] PCP: SANTIAGO Date of Last Visit: 06/30 PAST MEDICAL HISTORY Diagnosis Date Abdominal pain Anemia Cellulitis of leg, left Cellulitis of right leg Costochondritis Dizzy spells DM type 2 (diabetes mellitus, type 2) ([facility]) DVT (deep venous thrombosis) ([facility]) 09/[address] Saldana Edema lower extremity edema, bilateral GERD (gastroesophageal reflux disease) Headache(784.0) Menorrhagia Morbid obesity ([facility]) Orthostatic hypotension TYLER (obstructive sleep apnea) Pulmonary emboli ([facility]) Current Outpatient Medications Medication Sig megestrol (MEGACE) 40 mg tablet Take one(1) tablet daily and Increase to twice daily if bleeding worsening RIVAROXABAN (XARELTO ORAL) Take 20 mg by mouth once daily. HYDROcodone-acetaminophen (NORCO) 5-325 mg per tablet Take 1 tablet by mouth every 6 hours as needed. gabapentin (NEURONTIN) 100 mg capsule Take 100 mg by mouth three times daily. Multivitamin capsule Take 1 capsule by mouth once daily. FERROUS SULFATE ORAL Take by mouth. ALPRAZolam (XANAX) 1 mg tablet Take 1 mg by mouth at bedtime as needed. metoclopramide HCl (REGLAN) 10 mg tablet Take 10 mg by mouth four times daily. bumetanide (BUMEX) 1 mg tablet Take 1 mg by mouth once daily. pantoprazole DR (PROTONIX) 40 mg tablet Take 40 mg by mouth once daily. metFORMIN ER (FORTAMET) 1,000 mg 24 hr tablet Take 1,000 mg by mouth twice daily with meals. No current facility-administered medications for this visit. ALLERGIES Allergen Reactions Darvocet A500 [Prop* Hives Penicillins Other: See Comments Vancomycin Unknown Zosyn [Piperacillin* Unknown Subjective: Lisa is a 40 year old female year old DIABETIC who presents today for evaluation and treatment of painful digital nail deformities as well as generalized foot care. The patient has been unable to provide self nail care due to the severe nature of deformity which causes pressure and limits the patient's ability to walk in shoe gear without pain. Patient has attempted self debridement using a pumice stone and specialized nail instrument with no success. Patient advised not to attemptself care. Class B Findings: Decrease or absence of hair growth, Pigmentary changes, Skin texture (thin, shiny) and Nail changes (thickening) Objective: Each digital nail on the right 1 and the left 1 is elongated, thickened, ridged, lysing with friable subungual debris which, after debridement to underlying nail bed, reveals a characteristic fungal/yeast/mold odor and consistency. There is no surrounding cellulitis, deep incurvation, orevidence of bacterial infection. Class findings include normal pedal pulses, lack of digital/pedal hair growth, the above noted nail changes, some telangectasias and lower leg edema bilaterally. Lower Extremity Edema: yes: B/L Assessment: Symptomatic onychomycosis digital nails toes 1 Rt 1 Lt. Examination of individual toenails: R5 is normal. R4 is normal. R3 is normal. R2 is normal. R1 is brittle, discolored, dystrophic, elongated, painful, yellow with subungual debris. L1 is brittle, discolored, dystrophic, elongated, painful, yellow, with subungual debris. L2 is normal. L3 is normal. L4 is normal. L5 is normal. Plan: The offending nail margins were mechanically and electrically debrided to the level of normalunderlying nail bed with good relief obtained as evidenced by pain free palpation of the digits. The patient will be followed to maintain the length and thickness of their nails as best as possible. Patient relates painful ambulation. We will see her back on an as needed basis or sooner should problems arise. SLIGHT INCURVATION OF NAIL BORDERS B/L GRT TOES. REMOVED NO FURTHER TX NEEDED, NURSING ADVISED Cliff Flores DPM Encounter Diagnosis ICD-10-CM 1. Pain due to onychomycosis of toenail of left foot B35.1 DEBRIDEMENT OF NAIL(S), 1-5 M79.675 2. Pain due to onychomycosis of toenail of right foot B35.1 DEBRIDEMENT OF NAIL(S), 1-5 M79.674 3. Onychomycosis of multiple toenails with type 2 diabetes mellitus (HCC) E11.69 DEBRIDEMENT OF NAIL(S), 1-5 B35.1 4. custodial (current) use of anticoagulants Z79.01 DEBRIDEMENT OF NAIL(S), 1-5 [facility]03-24-[facility]22 Instructions* Patient Instructions* Cliff Flores DPM - 07/30/2021 1:25 PM EDT Pt not to attempt self care due to high risk. documented in this encounterMad[facility]03-15-2022 NoteHNO ID: [id number] Author: Adalberto Oleary MD Service: ? Author Type: Resident Type: Progress Notes Filed: 07/21/2021 11:50 AM Note Text: Orthopaedic Oncology New Patient Note Date: July 20, 2021 Attending Provider: Dr. Padmini Elizondo Referring Physician(s): Self Chief Complaint: Patient presents with: Right Hip - New New Patient: Here for a right hip consult HPI:Lisa Heart is a 40 year old female who presents today with reported right hip pain. I will highlight that the patient?s past medical history is largely notable for 1. Hx of R hip lymphoma (see below) 2. DM (Hb A1c 6.3 on 07/28/21) 3. Morbid obesity (433 lbs on 07/03/21) - BMI 60.4 4. Chronic opioid use 5. Chronic eliquis use for hx of DVTs (2016) Regarding her oncologic history, she has extensive documentation from Dr. Maria Elena Sorensen, oncology at [facility]: ? Stage IIE diffuse large B-cell lymphoma, germinal center type (negative for MYC, BCL2, BCL6) with involvement of right ischium, inferior pubic ramus, right acetabulum with soft tissue component and right external iliac lymph node ? Currently receiving treatment with RCHOP ? Neulasta for colony stimulation ? Valtrex for viral prophylaxis, fluconazole for fungal prophylaxis ? On oxycodone for cancer-related pain More recently getting treatment with Dr. Xander Burrell at [facility]. Last surveillance imaging in May 2021, no new foci of disease. The reported current symptoms first began approximately in Apr 2020 with debilitating right hip pain for which she sought treatment in [place], [place]. She ultimately was referred to [facility] for diagnosis and management of her lymphoma. Her chief complaint in the office today is right hip pain, located over the posterior buttock which worsens with ambulation and even sitting. She has only had PO narcotics (oxycodone, morphine) and no NSAIDs or PT. The patient denies any associated mass upon presentation. The pain is described as being present constantlyand is aching in nature. There are not reported radiculopathy pains. The patient endorses nocturnal pain. The patient denies associated numbness and tingling. Overall, the pain has Stable since first presenting. Today, the pain is a 8 on a 10-point scale. At it's worst, the pain is a 10/10. The pain improves with physical therapy. The pain becomes worse with virtually all activity, walking and sitting. The patient is not able to perform ADLs. Miscellaneous concurrent symptoms: The patient denies: none The patient reports: fever and night sweats Other Pertinent History: DM (Hb A1c 6.3 on 07/28/21), Morbid obesity (433 lbs on 07/03/21) - BMI 60.4,Chronic eliquis use for hx of DVTs (2016) Assist Device: Yes - using Nathalia lift for transfers Previous Personal Malignancy/MSK disorder? YES, DATE Apr 2020 Previous surgery for this problem? NO Prior radiation therapy for any reason? NO Body Location of the Radiation Treatment (if applicable): N/A Prior chemotherapy for any reason? YES, DATE [facility] (last in Jul 2020) Working Status: Not working Smoking: Never smoker ETOH: Denies Illicit Drugs: Denies Home Situation: Preoperative Ambulatory Status: Minimal Ambulation/Wheelchair Bound Number of Entry Steps: None Bedroom Location: First floor Bathroom Location: First floor Caregiver Assistance: Consistent/Live-In (5-7 days/wk) Home Location: Greater than 150 miles Hobbies: Enjoys traveling to dirt [employer] [place] Currently residing in [place], [place] Pertinent Past Medical History: PAST MEDICAL HISTORY Diagnosis Date - Abdominal pain - Anemia - Cellulitis of leg, left - Cellulitis of right leg - Costochondritis - Dizzy spells - DM type 2 (diabetes mellitus, type 2) ([facility]) - DVT (deep venous thrombosis) ([facility]) 09/[address] Saldana - Edema lower extremity edema, bilateral - GERD (gastroesophageal reflux disease) - Headache(784.0) - Menorrhagia - Morbid obesity ([facility]) - Orthostatic hypotension - TYLER (obstructive sleep apnea) - Pulmonary emboli (HCC) Pertinent Past Surgical History: PAST SURGICAL HISTORY Procedure Laterality Date - SNGL 2000 - CHOLECYSTECTOMY 1999 Medications: Current Outpatient Medications Medication Sig Dispense Refill - megestrol (MEGACE) 40 mg tablet Take one(1) tablet daily and Increase to twice daily if bleeding worsening 30 tablet 0 - RIVAROXABAN (XARELTO ORAL) Take 20 mg by mouth once daily. - HYDROcodone-acetaminophen (NORCO) 5-325 mg per tablet Take 1 tablet by mouth every 6 hours as needed. - gabapentin (NEURONTIN) 100 mg capsule Take 100 mg by mouth three times daily. - Multivitamin capsule Take 1 capsule by mouth once daily. - FERROUS SULFATE ORAL Take by mouth. - ALPRAZolam (XANAX) 1 mg tablet Take 1 mg by mouth at bedtime as needed. - metoclopramide HCl (REGLAN) 10 mg tablet Take 10 mg by mouth four times daily. - bumetanide (more content not included)...[facility]03-15-2022 NoteHNO ID: [id number] Author: Padmini Elizondo MD Service: ? Author Type: Physician Type: Progress Notes Filed: 07/21/2021 11:50 AM Note Text: [facility] STAFF PHYSICIAN NOTE OF PERSONAL INVOLVEMENT IN CARE Resident's history reviewed. I have personally examined the patient and repeated the mays components of the exam/history. The assessment and plan were formulated and discussed with the resident/fellow. Please see my below dicatation for all pertinent highlights, including historical emphasis, clinical exam, tests ordered, and the plan moving forward. See resident's note for additional details. Regarding the plan, we have had an in depth discussion today regarding the current symptomatology and possible causes for the current symptoms. This discussion included a personal review of all the available imaging studies with the patient, pertinent lab values, and highlighting mays findings. I have spent a total time of 45min reviewing all available information, with 30min of that time spent in [id number] time with the patient. Greater than 50% of this visit time was spent in counseling an/or care coordination. This is largely been spent reviewing x-rays/CT imaging, as well as counseling with regard to expectations moving forward from a symptomatic standpoint, weight loss, and anti-inflammatory use. In Summary: Highlights: This is my 1st visit with Lisa, who is here today for evaluation of Right hip pain. Please see a summary, as below: Lisa is here today with inability to ambulate. Has talked with Dr. Burrell in the past (Virtual Visit) H/o DLBCL with involvement in a mass at the right ischium, inferior pubic ramus, right acetabulum with soft tissue component, and a right external iliac lymph node. Dx'd in Apr 2020 -- severe stiffness and pain in the right hip -- sought Rx in [place], [place] and then trx'd to [facility] Biopsy proven (Stage IIE), germinal center type s/p RCHOP [id number] (last Rx was in July 2020) Sees palliative medicine and is on Oxycodone + Morphine NSAIDS - none prior to his. No prior injections. Has been having surveillance at [facility] -- in remission currently Primary complaint is persistent pain in the right hip (right buttock, worse with ambulation, no groin pain) She has had no injections Her last PT was in November 2020 -- had a fall and had exacerbation of the right hip pain profile She lives i PMHx: Diffuse large B-cell lymphoma per above, history of DVT/PE on Xarelto (2017), DM (A1c 6.3), morbid obesity (BMI 60) Lives in a facility presently -- has not been home in a long time (previously lived with parents) Smoking status: Nonsmoker Occupation: Not working Hobbies: Visiting [employer] tracks Exam: Please see my resident note, below, for details. To highlight: Exam was difficult today as she was on a gurney, and given her weight, it was impossible to move her. She points directly over her right ischium as the origin of the pain. She is appropriately conversive, but outside of that I was unable to do any major exam today. She does have obvious lymphedema in bilateral lower extremities, which is largely a harbinger of her morbid obesity. Imaging: Plain film x-ray imaging from 06/04/2021 is reviewed. This shows a chronic appearing process that shows a previous aggressive lytic lesion process in the right ischium, with some heterotopic ossification overgrowth. The acetabulum, proper, shows degenerative changes in the hip with a calcified labrum, and mild joint space loss, bilaterally. There are no concerns for pathologic fracture, all column anatomic landmarks (anterior/posterior) are essentially normal. CT imaging from 06/04/2021 is reviewed. There are changes from a previously treated lymphoma of the right ischium and inferior posterior wall, which has a honeycomb appearance, with mixed lucency and sclerotic changes and coarse trabeculae. There are erosive changes in the ischial tuberosity, with no evident soft tissue mass. The posterior wall, other than the most inferior aspect of it, is showing no signs of involvement. The rest of the acetabulum appears largely normal. She does have moderate arthritic changes with osteophyte formation over the anterior/superior acetabulum, and mild to moderate joint space narrowing on axial views. Plan: - Lisa was referred to me today for evaluation of potential hip replacement surgery. I do not believe that this is a pragmatic consideration, given the lack of symptoms emanating from her hip joint proper, her morbid obesity, and the lack of structural integrity loss to the hip joint proper. - OK for PT to work with Lisa --while she has distorted anatomy around her ischium, which is causing hamstring tendinitis exacerbation, there is no surgical intervention for this and this will likely be something that is permanent. She has no concern for impending pathologic fracture that would require surgical (more content not included)...[facility] 07-03-2021 NoteHNO ID: [id number] Author: Mar Beck MD Service: ? Author Type: Physician Type: Progress Notes Filed: 07/06/2021 4:19 PM Note Text: [facility] NOTE NAME: FLEX PINTO NO.: [id number] DATE OF SERVICE: 07/03/2021 [facility] DATE OF : 1980 MONTHLY EVALUATION Visit was made with proper PPE. CHIEF COMPLAINT: 1. Morbid obesity. 2. Depression, uncontrolled. 3. Chronic opioid use. 4. Anticoagulated. 5. Type 2 diabetes. HISTORY AND PHYSICAL: This is a long-term care resident in this facility versus skilled. The patient is in transition, asking what is going to be her long-term care management. The patient has been here for long period of time. The patient does not have any other ulcers at this moment. Her blood sugar is well controlled. Blood pressures are at target. The patient has lost 17 pounds since she has been here. Problem is that the patient continues to say that she has pain. Apparently, the morphine was decreased from extended release b.i.d. to once a day and now once a day as needed which I disagree as the long-acting medication should not be used as needed. It has my name so I am discontinuing that medication, continue with the Percocet as needed as we do not want the patient to be in withdrawal at this time. I am reviewing the progress report and the patient has used oxycodone today twice and the Vistaril yesterday for anxiety. PAST MEDICAL HISTORY, SURGICAL HISTORY, SOCIAL HISTORY, FAMILY HISTORY AND FUNCTIONAL HISTORY: All unchanged and in the chart for review. CODE STATUS: Full code. ALLERGIES: PENICILLIN, VANCOMYCIN, ZOSYN, DARVOCET. REVIEW OF SYSTEMS: Denies chest pain, shortness of breath, nausea or vomiting. She states I am still in pain but it is only when we ask her. When she is eating and we are talking about something different, no pain mentioned. MEDICATIONS CURRENTLY USING: In the chart for review. PHYSICAL EXAMINATION: Blood pressure is 111/75 with a temp of 97.1, pulse 64, respirations 20, saturating 95% that is on room air. Her weight is 433. The patient is awake, alert, did not answer orientation questions. Eyes: PERRLA. Mucosa is moist. No thrush. Neck is supple. Lungs: Clear to auscultation bilaterally. No crackles, wheezes or rhonchi. Cardiac sounds are regular in rate and rhythm. Abdomen is soft, nontender or distended. Bowel sounds are present. No bladder distention. Cranial nerves are grossly intact. Moving upper and lower extremities volitionally. BLOOD WORK RESULTS: Evaluated and in the chart for review. IMPRESSION AND DIAGNOSES: 1. Depression. I think that that is the main issue. If the patient is depressed, then the pain will not be controlled and sometimes the mood disorder is the one that is prevailing the symptoms, so what we will do is instead of doing Vistaril long-term, we will continue for now as needed. We will increase the Lexapro from 10 mg to 20 mg to have full dose as the patient is a young person and she needs a higher dose to control the mood disorder. We will reassess with the BMP in one week as this medication may cause hyponatremia. 2. Chronic opioid user. We are discontinuing the morphine for good. I disagree in using extended release medications as needed that is not safe for the patient and we will continue with the Percocet as needed at this time with the plan of tapering that down to off or to something unless powerful like tramadol or Tylenol Number 3 later on. 3. Anticoagulated. Continue with the same medication. 4. Hypertension with low blood pressure numbers. Blood pressures at goal. No changes. 5. Type 2 diabetes. A1c level every 3 months as the patient has lost 17 pounds so that could be good. The last blood sugar that we have that was long-time ago was in the 120s. So, we will just continue to follow with that. DICTATED BY: MD CLAUDIO METZGER/Nabila JOB# [id number] cc:[facility]01-21-2022 NoteHNO ID: [id number] Author: Jenny France PA-C Service: ? Author Type: Physician Veterinary Medicine Scientist Type: Progress Notes Filed: 06/01/2021 2:09 PM Note Text: [facility] NOTE NAME: FLEX PINTO NO.: [id number] DATE OF SERVICE: 05/29/2021 [facility] DATE OF : 1980 CHIEF COMPLAINT: Bilateral hand and wrist pain. SUBJECTIVE FINDINGS: The patient was seen in her room at [facility] at her request. She had been telling the nurses that for the last 48 hours or so that she was having discomfort in both wrists and particularly her knuckles over the MCP area. She describes this as constant and achy. She thought that the hands were somewhat swollen. Neither areas were warm to the touch or particularly red. There have been no documented fever or chills. The patient has not experienced any history of pseudogout or rheumatoid arthritis. She currently is utilizing Percocet for right hip pain as well as extended release morphine sulfate at night. REVIEW OF SYSTEMS: See above. MEDICATIONS: Reviewed in the penitentiary record. CODE STATUS: Full code. PHYSICAL EXAMINATION: Temp 97.2, pulse 60, respirations 20, BP 115/70, pulse ox 97%. Examination revealed a morbidly obese middle-aged woman, lying in bed. She was mentating at her baseline. She appeared comfortable. Examination of the hands revealed no active synovitis. Mild tenderness was appreciated at the dorsal aspect of both wrists and on palpation of the MCPs. There was no tenderness to the DIPs or PIPs and certainly no signs of deformity. There did not seem to be significant swelling at that time. Tinel sign was negative bilaterally. ASSESSMENT AND PLAN: Hand and wrist pain. At this point, she is not having active synovitis. We will check laboratory work to include CBC, BMP, ESR, CRP, rheumatoid factor, KYA and uric acid. If the pain persists, we will obtain bilateral hand and wrist x-rays. We will continue to monitor. DICTATED BY: Jenny France PA-C PG/Acusiminoo JOB# [id number] cc:[facility]01-20-2022 NoteHNO ID: [id number] Author: Cliff Flores DPM Service: ? Author Type: Physician Type: Progress Notes Filed: 05/28/2021 3:40 PM Note Text: Lisa Heart : 1980 Penitentiary: [facility] PCP: SANTIAGO Date of Last Visit: 05/2021 DANITA PAST MEDICAL HISTORY Diagnosis Date - Abdominal pain - Anemia - Cellulitis of leg, left - Cellulitis of right leg - Costochondritis - Dizzy spells - DM type 2 (diabetes mellitus, type 2) ([facility]) - DVT (deep venous thrombosis) ([facility]) 09/[address] Saldana - Edema lower extremity edema, bilateral - GERD (gastroesophageal reflux disease) - Headache(784.0) - Menorrhagia - Morbid obesity ([facility]) - Orthostatic hypotension - TYLER (obstructive sleep apnea) - Pulmonary emboli ([facility]) Current Outpatient Medications Medication Sig - megestrol (MEGACE) 40 mg tablet Take one(1) tablet daily and Increase to twice daily if bleeding worsening - RIVAROXABAN (XARELTO ORAL) Take 20 mg by mouth once daily. - HYDROcodone-acetaminophen (NORCO) 5-325 mg per tablet Take 1 tablet by mouth every 6 hours as needed. - gabapentin (NEURONTIN) 100 mg capsule Take 100 mg by mouth three times daily. - Multivitamin capsule Take 1 capsule by mouth once daily. - FERROUS SULFATE ORAL Take by mouth. - ALPRAZolam (XANAX) 1 mg tablet Take 1 mg by mouth at bedtime as needed. - metoclopramide HCl (REGLAN) 10 mg tablet Take 10 mg by mouth four times daily. - bumetanide (BUMEX) 1 mg tablet Take 1 mg by mouth once daily. - pantoprazole DR (PROTONIX) 40 mg tablet Take 40 mg by mouth once daily. - metFORMIN ER (FORTAMET) 1,000 mg 24 hr tablet Take 1,000 mg by mouth twice daily with meals. No current facility-administered medications for this visit. ALLERGIES Allergen Reactions - Darvocet A500 [Prop* Hives - Percocet [Oxycodone* Hives Subjective: Lisa is a 40 year old female year old DIABETIC who presents today for evaluation and treatment of painful digital nail deformities as well as generalized foot care. The patient has been unable to provide self nail care due to the severe nature of deformity which causes pressure and limits the patient's ability to walk in shoe gear without pain. Patient has attempted self debridement using a pumice stone and specialized nail instrument with no success. Patient advised not to attempt self care. Class B Findings: Decrease or absence of hair growth, Pigmentary changes, Skin texture (thin, shiny) and Nail changes (thickening) Objective: Each digital nail on the right 1 and the left 1 is elongated, thickened, ridged, lysing with friable subungual debris which, after debridement to underlying nail bed, reveals a characteristic fungal/yeast/mold odor and consistency. There is no surrounding cellulitis, deep incurvation, or evidence of bacterial infection. Class findings include diminished pedal pulses, lack of digital/pedal hair growth, the above noted nail changes, some telangectasias and lower leg edema bilaterally. Lower Extremity Edema: yes: B/L Assessment: Symptomatic onychomycosis digital nails toes 1 Rt 1 Lt. Examination of individual toenails: R5 is normal. R4 is normal. R3 is normal. R2 is normal. R1 is brittle, discolored, dystrophic, elongated, painful, yellow with subungual debris. L1 is brittle, discolored, dystrophic, elongated, painful, yellow, with subungual debris. L2 is normal. L3 is normal. L4 is normal. L5 is normal. Plan: The offending nail margins were mechanically and electrically debrided to the level of normal underlying nail bed with good relief obtained as evidenced by pain free palpation of the digits. The patient will be followed to maintain the length and thickness of their nails as best as possible. Patient relates painful ambulation. We will see her back on an as needed basis or sooner should problems arise. Cliff Flores DPM Encounter Diagnosis ICD-10-CM 1. Pain due to onychomycosis of toenail of left foot B35.1 DEBRIDEMENT OF NAIL(S), 1-5 M79.675 2. Pain due to onychomycosis of toenail of right foot B35.1 DEBRIDEMENT OF NAIL(S), 1-5 M79.674 3. Onychomycosis of multiple toenails with type 2 diabetes mellitus (HCC) E11.69 DEBRIDEMENT OF NAIL(S), 1-5 B35.1 4. custodial (current) use of anticoagulants Z79.01 DEBRIDEMENT OF NAIL(S), [facility] NoteHNO ID: [id number] Author: Jenny France PA-C Service: ? Author Type: Physician Veterinary Medicine Scientist Type: Progress Notes Filed: 05/27/2021 12:39 PM Note Text: [facility] NOTE NAME: LISA PINTOLOUIS NO.: [id number] DATE OF SERVICE: 05/26/2021 [facility] DATE OF : 1980 CHIEF COMPLAINT: Hypersomnia. SUBJECTIVE FINDINGS: The patient was seen in her room at [facility] lying in bed. She asked the nursing staff to see me today as she was requesting a possible change in her analgesic medication. She states that she feels that she is sleeping much of the day away and would like to discontinue her morning morphine sulfate extended release tablet. She does have Percocet available for p.r.n. pain and would like to keep the morphine on at night, however feels that she would like to start doing more and getting up and out of bed in her chair. 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 Overall, she just feels too drowsy and feels like she would like to do more. She had no other new complaints for me today. REVIEW OF SYSTEMS: See above. MEDICATIONS: Reviewed in the penitentiary record. CODE STATUS: Full code. PHYSICAL EXAMINATION: Temp 97.2, pulse 57, respirations 20, BP 96/60, pulse ox 96%. Examination revealed a morbidly obese, middle-aged woman lying in bed. She appeared comfortable. She was mentating well. She did not appear overtly lethargic for me today. ASSESSMENT AND PLAN: 1. Hypersomnia, perhaps related to analgesic medication. We will discontinue the daytime morphine dose and continue to monitor. She does have p.r.n. Percocet available as needed. We will see if this changes her mentation in any way. 2. Acute on chronic pain from neoplasm, specifically right hip lymphoma. She will follow up with orthopedics later this month. We will continue to monitor. DICTATED BY: Jenny France PA-C PG/Nabila JOB# [id number] cc:[facility]01-17-2022 Evaluation + Plan note Future Scheduled Tests Laboratory* CBC w/ Auto Diff 05/25/21 * Comprehensive Metabolic Panel 05/25/21 * Lactate Dehydrogenase 05/25/21 Radiology* CT Abdomen/Pelvis w/ Contrast 10/27/21 * CT Chest w/ Contrast 10/27/21 [facility]01-11-2022 NoteHNO ID: [id number] Author: Jenny France PA-C Service: ? Author Type: Physician Veterinary Medicine Scientist Type: Progress Notes Filed: 05/20/2021 1:09 PM Note Text: [facility] NOTE NAME: LISA PINTO ELLIS NO.: [id number] DATE OF SERVICE: 05/19/2021 [facility] DATE OF : 1980 CHIEF COMPLAINT: Followup for musculoskeletal chest pain, lymphoma, and other medical issues. SUBJECTIVE FINDINGS: The patient was seen in her room at [facility], lying in bed. She had no complaints for me today and related that she was no longer having any discomfort in her chest. She felt that the Salonpas patch was effective. She has been eating and drinking at her baseline and weight remains stable. Staff relates that she has not been particularly anxious. She relates that she is having right hip pain, but that it is fairly well controlled. She is scheduled to follow up with Orthopedics later this month and will also undergo a repeat CT scan. The patient had COVID-19 in April 2021, and was treated with monoclonal antibody therapy. She has not experienced any residual sequelae. Overall blood sugars have been well controlled. She had no new complaints for me today. REVIEW OF SYSTEMS: Please see above. The patient denies any chest pain, shortness of breath, fever, chills, or cough. There are no bowel or bladder issues. MEDICATIONS: Medications reviewed in the penitentiary record. CODE STATUS: Code status is full code. PHYSICAL EXAMINATION: Temp 97.3, pulse 76, respirations 20, BP 109/77, pulse ox 94%. Examination revealed a morbidly obese woman lying in bed. She appeared comfortable. She appeared sleepy. Skin fair turgor. HEENT: Mucosa moist. Heart: Regular rate and rhythm. Lungs: Clear. Abdomen: Soft, obese, no tenderness. Lower extremities: Chronic lymphedematous changes. ASSESSMENT AND PLAN: 1. History of musculoskeletal chest pain. This seems to be improved with topical therapy. Continue to monitor. 2. Anxiety with depression. The patient remains on p.r.n. Vistaril. In addition, she is currently taking Lexapro. 3. Morbid obesity. Continue supportive care. 4. Personal history of COVID-19, resolved without sequelae. The patient is fully vaccinated but has not yet received the booster shot. 5. Right hip lymphoma. We will follow up with Orthopedics later this month. The patient does have a chronic pain related to such. We will continue morphine sulfate as ordered. 6. Vitamin D deficiency. Continue replacement. 7. Type 2 diabetes mellitus. Blood sugar generally quite well controlled. We will follow up laboratory work in the near future. DICTATED BY: Jenny France PA-C PG/Nabila JOB# [id number] cc:[facility]12-30-2021 NoteHNO ID: [id number] Author: Jenny France PA-C Service: ? Author Type: Physician Veterinary Medicine Scientist Type: Progress Notes Filed: 05/11/2021 11:59 AM Note Text: [facility] NOTE NAME: FLEX PINTO NO.: [id number] DATE OF SERVICE: 05/07/2021 [facility] DATE OF : 1980 CHIEF COMPLAINT: Chest pain. SUBJECTIVE FINDINGS: The patient was seen in her room at [facility], lying in bed. I was notified late yesterday afternoon that the patient was experiencing chest discomfort described as somewhat achy but then at times sharp. She told the nurse that it was radiating to her right arm. Nursing staff medicated with Vistaril and acetaminophen with only limited response. The patient became more anxious at which time the squad was called for consideration for transfer to the emergency room. According to the nursing report the patient underwent EKG done by the squad, which showed no acute changes. At which time, the patient was provided reassurance and elected to stay in the building. Apparently, Vistaril was effective in alleviating the discomfort. The patient relates to me today that she is not experiencing any more discomfort. She did go out to the emergency room on approximately April 23, 2021, for a similar event and workup was completely unremarkable and she was sent back to the facility. There is no personal history of cardiac disease. Today, the patient relates that she feels well. She related that the pain yesterday was sharp but also achy. She related that she felt that she pulled a muscle in her chest when turning in bed and that this area was rather tender. She denied any palpitations, dyspnea, nausea, vomiting, or diaphoresis associated with the discomfort. She had no change in lower extremity edema or calf tenderness although she does spend much of her time lying in bed. She is on Eliquis chronically. REVIEW OF SYSTEMS: Please see above. MEDICATIONS: Medications reviewed in the penitentiary record. CODE STATUS: Code status is full code. PHYSICAL EXAMINATION: Temp 97.2 pulse 70, respirations 16, BP 108/66 pulse ox 95%. Examination revealed an morbidly obese, middle-aged woman, lying in bed. She was smiling and appropriate. She appeared comfortable and in no distress. Skin good turgor. HEENT: Mucosa moist. Neck: No JVD. Heart: Regular rate and rhythm without murmur. Lungs: Clear anteriorly and laterally. Palpation of the chest revealed significant reproducible tenderness to the left anterior chest region. Abdomen: Obese, soft, nontender. Lower extremities: With no worsening edema. ASSESSMENT AND PLAN: Likely musculoskeletal chest pain in patient with history of anxiety and depression. Discussed with her at length that we can utilize topical therapy. She is agreeable to try Salonpas or a Lidoderm patch to the chest region. Again she also does require a great deal of reassurance. We will renew Vistaril for now. She also remains on Lexapro and this dose may need to be adjusted depending on progress. We will continue to follow. DICTATED BY: Jenny France PA-C PG/Nabila JOB# [id number] cc:[facility]12-08-2021 NoteHNO ID: [id number] Author: Jenny France PA-C Service: ? Author Type: Physician Veterinary Medicine Scientist Type: Progress Notes Filed: 04/16/2021 11:49 AM Note Text: [facility] NOTE NAME: FLEX PINTO NO.: [id number] DATE OF SERVICE: 04/15/2021 [facility] DATE OF : 1980 CHIEF COMPLAINT: Followup for COVID-19 infection. SUBJECTIVE FINDINGS: The patient was seen in her room at [facility] on the [facility] unit. He donned full personal protective equipment prior to entering the patient's room for the evaluation and remained 6 feet away from the patient. The patient is status post monoclonal antibody infusion done approximately 9 days ago. She is likely going to be moved off the [facility] unit today. Overall, other than having some fatigue, she has done quite well. She is eating and drinking well. She denied any chest pain, shortness of breath, fever, chills, cough, vomiting, or diarrhea. REVIEW OF SYSTEMS: See above. MEDICATIONS: Medications reviewed in the penitentiary record. CODE STATUS: Code status is full code. PHYSICAL EXAMINATION: Temp 97.3, pulse 70, respirations 18, BP 111/65, pulse ox 98%. Weight 422 pounds. Examination revealed a morbidly obese, middle-aged woman, lying in bed. She was smiling and appropriate. She did not appear acutely ill. She was not coughing or tachypneic. LAB DATA: Recent laboratory assessment from April 14, 2021, sodium 139, potassium 4.6, chloride 101, CO2 is 29, BUN 12, creatinine 0.71. GFR greater than 60. White blood cell count 5.73, hemoglobin 12.7, hematocrit 41.9, and platelet count of 186. ASSESSMENT AND PLAN: Acute COVId-19 infection. Overall significantly improved. She is status post monoclonal antibody therapy. [facility]. DICTATED BY: Jenny France PA-C PG/Nabila JOB# [id number] cc:[facility]12-06-2021 NoteHNO ID: [id number] Author: Jenny France PA-C Service: ? Author Type: Physician Veterinary Medicine Scientist Type: Progress Notes Filed: 04/14/2021 1:09 PM Note Text: [facility] NOTE NAME: FLEX PINTO NO.: [id number] DATE OF SERVICE: 04/13/2021 [facility] DATE OF : 1980 CHIEF COMPLAINT: Follow up for COVID-19 infection. SUBJECTIVE FINDINGS: The patient was seen in her room at [facility]. I donned full personal protective equipment prior to entering the patient's room for the evaluation. The patient is status post monoclonal antibody infusion done 1-week ago. Other than feeling fatigued, she had no new complaints. She is starting to eat and drink well. She denied any chest pain, shortness of breath, fever, chills or cough. She has not experienced any vomiting or diarrhea. REVIEW OF SYSTEMS: See above. MEDICATIONS: Reviewed in the penitentiary record. CODE STATUS: Full code. PHYSICAL EXAMINATION: Temp 97.9, pulse 75, respirations 18, BP 119/80, pulse ox 97%. Examination revealed a morbidly obese, chronically ill-appearing woman, lying in bed. She was smiling and appropriate. She was not tachypneic. She was not coughing. Heart revealed a regular rate and rhythm. Lungs were diminished, but clear throughout. Abdomen: Obese, soft. No tenderness. Lower extremities: Chronic lymphedematous changes. Although laboratory tests were ordered, it does not appear that they were entered into the system. ASSESSMENT AND PLAN: 1. Acute COVID-19 infections status post monoclonal antibody infusion. The patient remains asymptomatic. We will continue supportive care. We will follow up with laboratory work tomorrow. She remains on chronic anticoagulation therapy with Eliquis. 2. Morbid obesity. Continue supportive care. 3. Right hip pain secondary to lymphoma. Continue ongoing analgesics. DICTATED BY: Jenny France PA-C PG/Nabila JOB# [id number] cc:[facility]12-03-2021 NoteHNO ID: [id number] Author: Jenny France PA-C Service: ? Author Type: Physician Veterinary Medicine Scientist Type: Progress Notes Filed: 04/13/2021 12:18 PM Note Text: [facility] NOTE NAME: FLEX PINTO NO.: [id number] DATE OF SERVICE: 04/10/2021 [facility] DATE OF : 1980 CHIEF COMPLAINT: Follow up for COVID-19 infection. SUBJECTIVE FINDINGS: The patient was seen in her room at [facility] on the [facility] unit. I donned full personal protective equipment prior to entering her room for the evaluation. The patient is status post monoclonal antibody infusion done approximately 4 days ago. Other than feeling fatigued, she had no other complaints with the exception of a very mild headache. She complains that she has lost her taste and smell, although is making efforts to drink fairly well. She does not seem to be eating as much. She denies any chest pain, shortness of breath, fever, chills, cough, or sputum production, and has not experienced any vomiting or diarrhea. REVIEW OF SYSTEMS: See above. MEDICATIONS: Reviewed in the penitentiary record. CODE STATUS: Full code. PHYSICAL EXAMINATION: Temp 97.8, pulse 61, respirations 18, blood pressure 97/65, pulse ox 93%. Examination revealed a morbidly obese, chronically ill-appearing woman, lying in bed. She was smiling and appropriate. She was not tachypneic. Heart revealed a regular rate and rhythm. Lungs were diminished but clear throughout. Abdomen is obese, soft, no tenderness. Lower extremities with chronic lymphedematous changes. LABORATORY ASSESSMENT: As follows. It does not appear that recent labs have been entered in at this point. ASSESSMENT AND PLAN: 1. Acute COVID-19 infection status post monoclonal antibody infusion. The patient generally remains asymptomatic. We will continue supportive care. She remains on chronic anti-coagulation therapy with Eliquis. 2. Morbid obesity. Continue supportive care. 3. Right hip pain secondary to lymphoma. Continue ongoing analgesics. DICTATED BY: Jenny France PA-C PG/Nabila JOB# [id number] cc:[facility]12-02-2021 NoteHNO ID: [id number] Author: Mar Beck MD Service: ? Author Type: Physician Type: Progress Notes Filed: 04/13/2021 5:29 PM Note Text: [facility] NOTE NAME: FLEX PINTO NO.: [id number] DATE OF SERVICE: 04/09/2021 [facility] DATE OF : 1980 PROGRESS NOTE Visit was made with proper PPE. CHIEF COMPLAINT: 1. Coronavirus infection nCOVID-19. 2. Dyspepsia. 3. 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 4. Morbid obesity. HISTORY AND PHYSICAL: This is a patient with coronavirus infection. She received monoclonal antibodies day before yesterday, tolerated the medication, no side effect. No fever. Oxygen remains stable above 90. No need of dexamethasone. Today, she is complaining about epigastric pain, burning sensation. No nausea or vomiting though. No cough. No headache. CODE STATUS: Full code. ALLERGIES: PENICILLIN, VANCOMYCIN, ZOSYN, DARVOCET. REVIEW OF SYSTEMS: Denies chest pain or shortness of breath. GI: H and P. No dysuria. No headaches at this time. MEDICATIONS CURRENTLY USING: In the chart for review. PHYSICAL EXAMINATION: Blood pressure 108/62 with a temp of 97.9, pulse 83, respirations 20, saturating 96% on room air. Her weight is 422. The patient is awake, alert, oriented in time and place in no distress, but in discomfort related to the epigastric tenderness. Eyes: PERRLA. Mucosa is moist. No thrush. Neck is supple. Lungs: Clear to auscultation. She was able to roll to evaluate posterior jacobsen. No crackles, wheezes or rhonchi. Cardiac sounds are regular in rate and rhythm. Abdomen is soft with epigastric tenderness. No rebound. No suprapubic tenderness. Leg edema is minimal. Moving upper and lower extremities volitionally. BLOOD WORK RESULTS: Evaluated and in the chart for review. IMPRESSION AND DIAGNOSES: 1. Coronavirus infection nCOVID-19. For venous thromboembolism prophylaxis, she has apixaban which she uses chronically. She is also already repleted in her vitamin D as she had lower level before. For cough, she is doing guaifenesin as needed, Tylenol as needed for pain and she already received monoclonal antibodies so we will just continue to follow on her closely as her oxygen is normal and no fever. 2. Epigastric discomfort. We will do omeprazole 40 mg once a day for the next 2 weeks only and reassess. We do not want to make her use the medication chronically if not needed, but at this point with all these new stressors that she has including the diagnosis of the COVID and not only the COVID, she may have some gastritis so we are treating that at this point and we will reassess. 3. Anticoagulated. Continue with the apixaban and her hemoglobin is stable as well as the creatinine so she needs full dose. 4. Lymphoma of the hip. She has scheduled an appointment today with Ortho which she did not attend due to being in isolation so we need to reschedule that appointment over next week. DICTATED BY: MD CLAUDIO METZGER/Nabila JOB# [id number] cc:[facility]ella [place] [address]-01-2021 NoteHNO ID: [id number] Author: Jenny France PA-C Service: ? Author Type: Physician Veterinary Medicine Scientist Type: Progress Notes Filed: 04/09/2021 11:39 AM Note Text: [facility] NOTE NAME: FLEX PINTO NO.: [id number] DATE OF SERVICE: 04/08/2021 [facility] DATE OF : 1980 CHIEF COMPLAINT: Follow up for COVID-19 infection. SUBJECTIVE FINDINGS: The patient was seen in her room at [facility] on the cohorted unit. I donned full personal protective equipment and remained greater than 6 feet away from the patient for the evaluation. The patient tested positive for COVID-19 on April 06, 2021 via rapid antigen and this was confirmed by PCR testing. Given her morbid obesity and other comorbidities she met the criteria for monoclonal antibody therapy and underwent infusion yesterday, which she tolerated without incident. She relates that overall she is feeling fairly well although complains of loss of taste and smell. She does seem to be eating and drinking fairly well. She did have a headache initially, but this has resolved. She denies any respiratory complaints, shortness of breath, cough, or sputum production. She denied any nausea, vomiting, or diarrhea. The patient received her 2nd vaccination for COVID-19 on November 27, 2020. She has not yet received a booster shot. REVIEW OF SYSTEMS: See above. MEDICATIONS: Reviewed in the [facility]iary record. CODE STATUS: Full code. PHYSICAL EXAMINATION: Temp 97.8, pulse 75, respirations 20, BP 134/72, pulse ox 96%. Examination revealed a morbidly obese, chronically ill-appearing woman, lying in bed. She was smiling and was appropriate to the situation. She was mentating at her baseline. She did not appear acutely ill. The patient does not appear tachypneic. She was in no obvious distress. ASSESSMENT AND PLAN: 1. COVID-19 infection, status post monoclonal antibody therapy. Overall only mildly symptomatic and stable. We will continue to monitor. She remains on chronic anticoagulation therapy with Eliquis. 2. Morbid obesity. Continue supportive care. DICTATED BY: Jenny France PA-C PG/Nabila JOB# [id number] cc:[facility]11-30-2021 NoteHNO ID: [id number] Author: Mar Beck MD Service: ? Author Type: Physician Type: Progress Notes Filed: 04/08/2021 4:59 PM Note Text: [facility] NOTE NAME: FLEX PINTO NO.: [id number] DATE OF SERVICE: 04/07/2021 Gabriella Aegis/[facility] DATE OF : 1980 ACUTE NOTE Visit was made with proper PPE. CHIEF COMPLAINT: 1. Coronavirus infection in COVID-19. 2. Morbid obesity. 3. Anticoagulated for DVT with Eliquis. 4. Lymphoma of the hip. HISTORY AND PHYSICAL: This is a patient that came here for rehabilitation and at this time the patient has developed COVID infection. She has 2 days with the disease, oxygen is normal, just headache, no fever, fair appetite, fair fluid intake. The patient meets criteria for monoclonal antibodies due to her weight and being immunosuppressed for the lymphoma as well as being a diabetic. So, I explained to her benefits and risks of the side effects and she agreed to get the medication today. CODE STATUS: Full code. ALLERGIES: PENICILLIN, VANCOMYCIN, ZOSYN, DARVOCET. REVIEW OF SYSTEMS: Denies chest pain, shortness of breath, nausea or vomiting. Today, no headache, no fever as well. Breathing comfortably. MEDICATIONS CURRENTLY USING: All in the chart for review. PHYSICAL EXAMINATION: Blood pressure is 142/72 with a temp of 97.9, pulse 68, respirations 18, saturating 96% on room air. Her weight is 423. Awake, alert, oriented in time and place, not in distress. Eyes: PERRLA. Mucosa is moist. No thrush. Neck is supple. Lungs: Clear to auscultation. She was able to roll to evaluate posterior jacobsen. Grossly, no crackles, wheezes or rhonchi. Cardiac sounds are regular in rate and rhythm. Abdomen is soft, nontender or distended. Bowel sounds present. 1 plus pitting edema up to the knees. Able to move upper and lower extremities. BLOOD WORK RESULTS: Evaluated and in the chart for review. IMPRESSION AND DIAGNOSES: 1. Coronavirus infection in COVID-19. 2. Morbid obesity. 3. Anticoagulated for atrial fibrillation. 4. Lymphoma of the right hip. 5. Diabetes. The patient meets criteria for having monoclonal antibodies and she agrees to that. So, she will get one dose of bamlanivimab one-time dose today. We will continue to follow her closely in her oxygen levels in case she desaturates and we need to add dexamethasone. For venous thromboembolism prophylaxis, she is on Eliquis that she takes for deep venous thrombosis. She is already corrected in her vitamin D level. We will continue to follow her closely. Addendum MAB received, no immediate side effects. DICTATED BY: MD CLAUDIO METZGER/Nabila JOB# [id number] cc:[facility]ella [facility]11-29-2021 NoteHNO ID: [id number] Author: Mar Beck MD Service: ? Author Type: Physician Type: Progress Notes Filed: 04/08/2021 4:49 PM Note Text: [facility] NOTE NAME: FLEX PINTO NO.: [id number] DATE OF SERVICE: 04/06/2021 [facility] DATE OF : 1980 ACUTE NOTE Visit was made with proper PPE. CHIEF COMPLAINT: 1. Coronavirus infection in COVID-19. 2. Headache. 3. Lymphoma of the hip. 4. Pain on that area. 5. Functional decline. HISTORY AND PHYSICAL: This is a patient that came here for therapy after a diagnosis of lymphoma of the hip with inability to perform daily activities and pain. She has been doing fairly stable here and she was exposed to a staff member with COVID infection. She got tested positive. She is now in isolation. The patient does not have cough or shortness of breath, but headache and malaise at this time only. CODE STATUS: Full code. ALLERGIES: PENICILLIN, VANCOMYCIN, ZOSYN, DARVOCET DIFFERENT DOSES. REVIEW OF SYSTEMS: Denies chest pain or shortness of breath, nausea or vomiting. She states that she has headache only. MEDICATIONS CURRENTLY USING: In the chart for review. PHYSICAL EXAMINATION: Blood pressure 123/85 with a temp of 97.7, pulse 72, respirations 18, saturating 95% on room air. Weight 423. The patient is awake, alert. She is calm. She is breathing comfortably. Eyes: PERRLA. Mucosa is moist. No thrush. Neck is supple. The patient is able to roll back and forth. No crackles, wheezes or rhonchi. Cardiac sounds are regular in rate and rhythm. At this time, 1 plus pitting edema only. Abdomen: Soft, nontender or distended. Bowel sounds present. No bladder distention at this time. BLOOD WORK RESULTS: From February 09, 2021. At that time, the vitamin D was 16.8 and it has been corrected. All electrolytes are normal. IMPRESSION AND DIAGNOSES: 1. Coronavirus infection in COVID-19. At this time, the only symptom is headache and fatigue, malaise. We will do Tylenol 1 g start for the headache and then t.i.d. as needed. She has other medications for pain control for the lymphoma of the hip, so we will not make changes in that regard. We will check her oxygen level t.i.d. and if she drops below 90 consistently, we will do dexamethasone as we do not have availability for remdesivir. We also spoke with the DON about the monoclonal antibodies and she will see if we have that available to offer tomorrow and if that is the case, we will talk to the patient 1-to-1 as she meets criteria for having that for prevention of getting worse or needing admission to the hospital. For venous thromboembolism prophylaxis, she is on apixaban so we do not need anything extra. 2. Pain related to lymphoma of the hip. Continue with the same regimen of morphine extended release and the Percocet as needed. 3. Vitamin D deficiency. We are correcting with 50,000 units once a week for 8 weeks as patients in observational study it has been seen that they respond worse if the vitamin D levels are not corrected and in her case, we already started correction in February so she may be better at this point. We will continue with the high dose for 8 more weeks at this time so a total of 12 and then we will reassess in her level. DICTATED BY: MD CLAUDIO METZGER/Nabila JOB# [id number] cc:[facility]11-16-2021 NoteHNO ID: [id number] Author: Jenny France PA-C Service: ? Author Type: Physician Veterinary Medicine Scientist Type: Progress Notes Filed: 03/25/2021 1:29 PM Note Text: [facility] NOTE NAME: FLEX PINTO NO.: [id number] DATE OF SERVICE: 03/24/2021 [facility] DATE OF : 1980 CHIEF COMPLAINT: Follow up for chest pain and other medical issues. SUBJECTIVE FINDINGS: The patient was seen in her room at [facility] lying in bed. She was recently sent out to the emergency room last week when complaining of some sharp discomfort in the chest. She had been apparently coughing a lot. The patient had no evidence of cardiac events or pulmonary embolus per nursing staff and was apparently returned to the facility within a few hours. She has had no chest discomfort since that time. The patient is quite sedentary and is no longer working with therapy. She only utilizes a Nathalia lift for transfers. She rarely gets out of bed however, states that she was up for a few hours yesterday and that she has had worsening right hip pain today. The patient otherwise had no complaints. There are no documented fever, chills, or changes in her bowel or bladder pattern. REVIEW OF SYSTEMS: See above. MEDICATIONS: Reviewed in the [facility]itentiary record. CODE STATUS: Full code. PHYSICAL EXAMINATION: Temp 97.5, pulse 70, respirations 20, BP 90/58, pulse ox 97%, weight 424.3 pounds. Examination revealed a morbidly obese, chronically ill-appearing woman, lying in bed. She appeared fairly comfortable. HEENT: Mucosa moist. Neck: No JVD. Heart: Regular rate and rhythm. Lungs: Clear. Abdomen: Obese. Positive bowel sounds, soft. No tenderness. Lower extremities: Chronic lymphedematous changes. ASSESSMENT AND PLAN: 1. Chest pain, resolved. Continue to monitor. 2. Chronic right hip pain. Apparently recently went for a CT scan at [facility], unclear as to who ordered this. No results are currently available. We will have staff follow up on this. We will continue morphine sulfate long acting for now. 3. Morbid obesity. Continue supportive care. Her effort in participation with therapy was poor. 4. Anxiety and depression. Continue escitalopram. 5. Chronic lymphedema. Continue supportive care. DICTATED BY: Jenny France PA-C PG/Nabila JOB# [id number] cc:[facility]11-11-2021 NoteHNO ID: [id number] Author: Cliff Flores DPM Service: ? Author Type: Physician Type: Progress Notes Filed: 03/19/2021 4:21 PM Note Text: Lisa Heart : 1980 Penitentiary: [facility] PCP: santiago Date of Last Visit: 02/2021 danita PAST MEDICAL HISTORY Diagnosis Date - Abdominal pain - Anemia - Cellulitis of leg, left - Cellulitis of right leg - Costochondritis - Dizzy spells - DM type 2 (diabetes mellitus, type 2) ([facility]) - DVT (deep venous thrombosis) ([facility]) 09/[address] Saldana - Edema lower extremity edema, bilateral - GERD (gastroesophageal reflux disease) - Headache(784.0) - Menorrhagia - Morbid obesity ([facility]) - Orthostatic hypotension - TYLER (obstructive sleep apnea) - Pulmonary emboli ([facility]) Current Outpatient Medications Medication Sig - megestrol (MEGACE) 40 mg tablet Take one(1) tablet daily and Increase to twice daily if bleeding worsening - RIVAROXABAN (XARELTO ORAL) Take 20 mg by mouth once daily. - HYDROcodone-acetaminophen (NORCO) 5-325 mg per tablet Take 1 tablet by mouth every 6 hours as needed. - gabapentin (NEURONTIN) 100 mg capsule Take 100 mg by mouth three times daily. - Multivitamin capsule Take 1 capsule by mouth once daily. - FERROUS SULFATE ORAL Take by mouth. - ALPRAZolam (XANAX) 1 mg tablet Take 1 mg by mouth at bedtime as needed. - metoclopramide HCl (REGLAN) 10 mg tablet Take 10 mg by mouth four times daily. - bumetanide (BUMEX) 1 mg tablet Take 1 mg by mouth once daily. - pantoprazole DR (PROTONIX) 40 mg tablet Take 40 mg by mouth once daily. - metFORMIN ER (FORTAMET) 1,000 mg 24 hr tablet Take 1,000 mg by mouth twice daily with meals. No current facility-administered medications for this visit. ALLERGIES Allergen Reactions - Darvocet A500 [Prop* Hives - Percocet [Oxycodone* Hives Subjective: Lisa is a 40 year old female year old DIABETIC who presents today for evaluation and treatment of painful digital nail deformities as well as generalized foot care. The patient has been unable to provide self nail care due to the severe nature of deformity which causes pressure and limits the patient's ability to walk in shoe gear without pain. Patient has attempted self debridement using a pumice stone and specialized nail instrument with no success. Patient advised not to attempt self care. Class B Findings: Decrease or absence of hair growth, Pigmentary changes, Skin texture (thin, shiny) and Nail changes (thickening) Objective: Each digital nail on the right 1, 2, 3, 4 and 5 and the left 1, 2, 3, 4 and 5 is elongated, thickened, ridged, lysing with friable subungual debris which, after debridement to underlying nail bed, reveals a characteristic fungal/yeast/mold odor and consistency. There is no surrounding cellulitis, deep incurvation, or evidence of bacterial infection. Class findings include diminished pedal pulses, lack of digital/pedal hair growth, the above noted nail changes, some telangectasias and lower leg edema bilaterally. Lower Extremity Edema: yes: B/L Assessment: Symptomatic onychomycosis digital nails toes 1, 2, 3, 4 and 5 Rt 1, 2, 3, 4 and 5 Lt. Examination of individual toenails: R5 is normal. R4 is normal. R3 is normal. R2 is normal. R1 is brittle, discolored, dystrophic, elongated, painful, yellow with subungual debris. L1 is brittle, discolored, dystrophic, elongated, painful, yellow, with subungual debris. L2 is normal. L3 is normal. L4 is normal. L5 is normal. Plan: The offending nail margins were mechanically and electrically debrided to the level of normal underlying nail bed with good relief obtained as evidenced by pain free palpation of the digits. The patient will be followed to maintain the length and thickness of their nails as best as possible. Patient relates painful ambulation. We will see her back on an as needed basis or sooner should problems arise. PT C/O INGROWN NAILS, BOTH BIG TOES. UPON EVALUATION, INCURVATED MEDIAL AND LATERAL NAIL BORDERS B/L GREAT TOES WITH DRIED BLOOD ALONG THE NAIL GROOVES. NO XUAN INFECTION NOTED. REMOVED OFFENDING NAIL BORDERS, APPLIED BACITRACIN OINTMENT. ORDERS WRITTEN FOR TOPICAL BACTROBAN OINTMENT ONCE DAILY X 7 DAYS. STAFF TO CALL WITH ANY QUESTIONS OR CONCERNS. F/U PRN Cliff Flores DPM Encounter Diagnosis ICD-10-CM 1. Pain due to onychomycosis of toenail of left foot B35.1 DEBRIDEMENT OF NAILS, 6 OR MORE M79.675 2. Pain due to onychomycosis of toenail of right foot B35.1 DEBRIDEMENT OF NAILS, 6 OR MORE M79.674 3. 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 Ingrown nail L60.0 [facility]BRIDEMENT [facility]ILS[facility] NoteHNO ID: [id number] Author: Jenny France PA-C Service: ? Author Type: Physician Veterinary Medicine Scientist Type: Progress Notes Filed: 03/06/2021 11:49 AM Note Text: [facility] NOTE NAME: TOBINPALMA HEARTFLEX NO.: [id number] DATE OF SERVICE: 03/05/2021 [facility] DATE OF : 1980 CHIEF COMPLAINT: Followup for right hip pain and other medical issues. SUBJECTIVE FINDINGS: The patient was seen in her room, lying in bed at [facility]. She related that she was comfortable; however, with movement related that she was still having significant discomfort in the right hip. Her participation with therapy remains variable and staff is utilizing a Nathalia lift for all transfers. The patient apparently went out to [facility] 2 days ago to undergo followup CT scan for her hip pain. I do not have any details in this regard as to who ordered this and have no results at this point. The patient is unable to provide me any additional information. Blood sugars have been well controlled. The patient continues to have some tenderness with both great toes. She is requesting to see Podiatry. REVIEW OF SYSTEMS: See above. MEDICATIONS: Medications reviewed in the penitentiary record. CODE STATUS: Code status is full code. PHYSICAL EXAMINATION: Temp 97.5, pulse 84, respirations 18, BP 106/82, pulse ox 97%. Examination revealed a morbidly obese, chronically ill-appearing woman, lying in bed. She appeared fairly comfortable. Examination of the skin revealed excoriations on both feet. The patient on both great toes on the medial and lateral aspect of the nail bed has some slightly yellowed area. I was unable to express any purulence over these areas, were somewhat tender. Skin turgor otherwise good. HEENT: Mucosa moist. Neck: No JVD. Heart: Regular rate and rhythm. Lungs: Clear. Abdomen: Obese, positive bowel sounds, soft, no tenderness. ASSESSMENT AND PLAN: 1. Chronic right hip pain. Details as to why she went for further imaging are unknown. She did have an MRI apparently prior to admission, which was unremarkable. We will have staff obtain details from that examination. 2. Bilateral paronychia. We will arrange for the patient to see Podiatry. Her toenails need cut and also some additional attention. 3. Type 2 diabetes mellitus. Blood sugars stable on metformin. 4. Morbid obesity. Continue supportive care. 5. Anxiety and depression. Continues escitalopram. 6. Chronic lymphedema. Continue supportive care. 7. Weakness. Continue therapies. DICTATED BY: Jenny France PA-C PG/Nabila JOB# [id number] cc:[facility]10-19-2021 NoteHNO ID: [id number] Author: Jenny France PA-C Service: ? Author Type: Physician Veterinary Medicine Scientist Type: Progress Notes Filed: 02/25/2021 11:49 AM Note Text: [facility] NOTE NAME: FLEX PINTO NO.: [id number] DATE OF SERVICE: 02/24/2021 [facility] DATE OF : 1980 CHIEF COMPLAINT: Bilateral great toe pain. SUBJECTIVE FINDINGS: The patient was seen in her room lying in bed at [facility]. Overall she appeared quite comfortable. Her participation with therapy remains rather variable and staff is still utilizing a Nathalia lift for transfers. The patient's blood sugars have been well controlled. She relates that her pain is well controlled. Today she is complaining of bilateral great toe pain and is concerned that she may have some infection. There are no documented fever or chills. REVIEW OF SYSTEMS: See above. MEDICATIONS: Reviewed in the penitentiary record. CODE STATUS: Full code. PHYSICAL EXAMINATION: Temp 97.7, pulse 62, respirations 20, BP 92/62, pulse ox 92%. Weight 450 pounds. Examination revealed a chronically ill-appearing obese woman lying in bed. She overall appeared fairly comfortable. Examination of the skin revealed excoriations to both feet. On both great toes on the medial and lateral aspects of the nailbeds some slight yellow purulence was noted. I was unable to express anything, however these areas were somewhat tender on palpation for patient. There was not significant surrounding erythema. Skin turgor otherwise good. HEENT: Mucosa moist. Neck: No JVD. Heart: Regular rate and rhythm. Lungs: Clear throughout. Abdomen: Obese, soft. No tenderness. ASSESSMENT AND PLAN: 1. Bilateral great toe paronychia. We will have staff cleanse these areas with normal saline and apply Triple antibiotic ointment for the next 7 days. We will continue to follow and ask wound care in the facility to monitor. At this point I do not believe she needs systemic antibiotics. 2. Type 2 diabetes mellitus. Blood sugar well controlled on metformin. 3. Chronic right hip pain. We will consider changing to shorter acting opioid and tapering and we will discuss this with Dr. Beck. We will continue gabapentin. 4. Morbid obesity. Continue supportive care. 5. Anxiety and depression. Continue escitalopram. 6. Chronic lymphedema. 7. Weakness. Continue ongoing therapies. DICTATED BY: Jenny France PA-C PG/Nabila JOB# [id number] cc:[facility]10-12-2021 NoteHNO ID: [id number] Author: Jenny France PA-C Service: ? Author Type: Physician Veterinary Medicine Scientist Type: Progress Notes Filed: 02/18/2021 2:59 PM Note Text: [facility] NOTE NAME: FLEX PINTO NO.: [id number] DATE OF SERVICE: 02/17/2021 [facility] DATE OF : 1980 CHIEF COMPLAINT: Follow up for type 2 diabetes mellitus, hip pain and other medical issues. SUBJECTIVE FINDINGS: The patient was seen in her room lying in bed at [facility]. She appeared fairly comfortable. Staff notes that her participation with therapy is rather variable. There are still needing to utilize a Nathalia lift for transfers. The patient's blood sugars have been well controlled on metformin and she has not required any additional coverage. She relates today that her right hip pain is well controlled on her current regimen. There are no documented fever, chills, complains of chest pain, shortness of breath, cough or change in current bowel or bladder habit. REVIEW OF SYSTEMS: See above. MEDICATIONS: Reviewed in the penitentiary record. CODE STATUS: Full code. PHYSICAL EXAMINATION: Temp 97.4, pulse 72, respirations 20, BP 136/81, pulse ox 89% on room air. Examination revealed a morbidly obese middle-aged woman, lying in bed. She was mentating well. Skin turgor fair. HEENT: Mucosa moist. Neck: No JVD. Heart: Regular rate and rhythm. Lungs: Clear. Abdomen: Obese, soft. No tenderness, guarding or rebound. Lower extremities: No significant edema. ASSESSMENT AND PLAN: 1. Type 2 diabetes mellitus, stable and doing well on metformin. We will discontinue Accu-Cheks and corrective coverage. 2. Vitamin D deficiency. Continue replacement. 3. Chronic right hip pain, stable on morphine ER b.i.d. May consider leaving to a shorter acting opioid and weaning off. We will discuss with Dr. Beck. We will continue gabapentin. 4. Morbid obesity. Continue supportive care. The patient also likely has some component of obstructive sleep apnea due to obesity. She relates that she was placed on BiPAP while in the hospital, but was unable to tolerate that. She is unclear as to if she is interested in any sleep studies at this time. 5. Anxiety and depression. Continue escitalopram. 6. Lymphedema, stable. 7. Weakness. Continue ongoing therapies. DICTATED BY: Jenny France PA-C PG/Nabila JOB# [id number] cc:[facility]10-05-2021 NoteHNO ID: [id number] Author: Jenny France PA-C Service: ? Author Type: Physician Veterinary Medicine Scientist Type: Progress Notes Filed: 02/11/2021 1:59 PM Note Text: [facility] NOTE NAME: FLEX PINTO NO.: [id number] DATE OF SERVICE: 02/10/2021 [facility] DATE OF : 1980 CHIEF COMPLAINT: Follow up for insomnia, type 2 diabetes mellitus, hip pain and other medical issues. SUBJECTIVE FINDINGS: The patient was seen in her room lying in bed at [facility]. She related to me today that she was fairly comfortable. She was however, having difficulty sleeping and was requesting something for this. She had been recently started on metformin and blood sugars have been well controlled, requiring very little corrective coverage. Today, she was found to have a vitamin D level of 10 and started on replacement therapy. She continues to complain of discomfort in the right hip however, relates that the morphine sulfate ER does seem to be effective. On review of her medication administration, she has not utilized any Tylenol in between for any additional pain. The patient has morbid obesity and has difficulty moving related to that. She is utilizing a mechanical lift for transfers. She has been in and out of pen[facility]iary since 1 year ago after developing a COVID-19 infection. The patient is currently on escitalopram for anxiety and depression. In addition is taking Compazine 3 times a day for nausea and vomiting. Also is taking gabapentin for apparent chronic pain. REVIEW OF SYSTEMS: The patient overall feels weak. She denies any chest pain, shortness of breath, cough, fever or chills. She relates that her bowels are moving. She denies any urinary symptoms. MEDICATIONS: Reviewed in the penitentiary record. CODE STATUS: Full code. PHYSICAL EXAMINATION: Temp 98.2, pulse 90, respirations 20, blood pressure 95/60, pulse ox 95%, weight 450 pounds. Examination revealed a morbidly obese, middle-aged woman, lying in bed. She was mentating well. Skin turgor fair. HEENT: Mucosa moist. Neck: No JVD. Heart: Regular rate and rhythm. Lungs: Clear throughout. Abdomen: Obese, soft. No tenderness, guarding or rebound. Lower extremities: No significant edema at this point. LABORATORY ASSESSMENT: Vitamin D level is noted to be 10.8. ASSESSMENT AND PLAN: 1. Insomnia. The patient will be started on melatonin. 2. Type 2 diabetes mellitus, currently stable and doing well on metformin. She is not requiring much corrective coverage. We will continue to monitor. 3. Vitamin D deficiency. She has been started on replacement with ergocalciferol and cholecalciferol. 4. Chronic right hip pain. Remains on morphine sulfate ER twice daily. We will continue to monitor. We will discuss conversion of this with Dr. Beck as there was some consideration of moving to a shorter acting opioid with a goal of weaning off. We will continue gabapentin. 5. Morbid obesity. Continue supportive care. She is working with the dietitian. 6. Anxiety and depression, remains on escitalopram. We will continue to monitor. 7. Lymphedema, overall stable. 8. Weakness. The patient is quite weak at this time. We will continue therapies with the hopes of her being able to improve mobility and even ambulate. We will continue to follow. DICTATED BY: Jenny France PA-C PG/Nabila JOB# [id number] cc:Gabriella Gunn [facility]10-01-2021 NoteHNO ID: [id number] Author: Mar Beck MD Service: ? Author Type: Physician Type: Progress Notes Filed: 02/09/2021 7:49 PM Note Text: [facility] NOTE NAME: FLEX PINTO NO.: [id number] DATE OF SERVICE: 02/06/2021 Gabriella Gunn/prison facility DATE OF : 1980 ADMISSION NOTE Visit was made with proper PPE. CHIEF COMPLAINT: 1. Right hip pain. 2. Morbid obesity. 3. Lymphedema. 4. Anxiety. 5. Lack of mobility. 6. UTI. Treated. HISTORY AND PHYSICAL: This is a dependent patient related to her weight. The patient states that she was walking around in her house from the bed to the recliner, from the recliner to the bedroom. She used to sleep in the recliner to be able to stand up to keep her functional as active as possible. That happened until January roughly of last year 2019. She got COVID, went to the hospital, from then she went to prison facility and then to penitentiary. She has not been back home. In November 2020, the patient fell while in the penitentiary and since then, she has been Nathalia lift, not able to ambulate. This is roughly 8 weeks ago. This time, she went from the penitentiary to the hospital with right hip pain and she got an MRI showing just musculoskeletal pain, nothing acute, no fractures, no neck process, no osteoarthritis. The patient was also found to have UTI which has been treated already and she came here for therapy. Currently, I saw her rolling. When she rolled on top of the right hip, which is the one that has pain, she does it by herself and really fast. When she does it through the other side, the patient has pain and cannot roll by herself and needs help, but otherwise she moves upper extremities and lower extremities volitionally in bed. PAST MEDICAL HISTORY: B-cell lymphoma, right chronic hip pain, diabetes type 2, morbid obesity, anxiety, bipolar, acid reflux, cellulitis, neuropathy. SURGICAL HISTORY: None. FAMILY HISTORY: The patient does not want to talk about that. CODE STATUS: Full code. ALLERGIES: PENICILLIN, VANCOMYCIN, ZOSYN, DARVOCET BOTH 500 MG AND 100 MG. SOCIAL HISTORY: No alcohol, cigarettes or illegal drugs. REVIEW OF SYSTEMS: General: The patient states that she feels weaker than her usual and she would like to ambulate. No chest pain at this time. Leg edema improved. Respiratory: No shortness of breath or cough. Does not remember when was the last bowel movement. No symptoms at this time. Neurological: No acute issues. Psychiatric: She acknowledges that she has anxiety. Skin: H and P. Musculoskeletal: Generalized weakness and pain on the right hip H and P. Ears, nose and throat: No problems. Eyes: No problems. All other review of systems evaluated and negative. MEDICATIONS CURRENTLY USING: Colace 100 mg once a day as needed, Lovenox 80 mg b.i.d. no end date, gabapentin 300 mg b.i.d., Humalog sliding scale 4 times a day, morphine extended release 15 mg b.i.d., prochlorpemazine 10 mg t.i.d. as needed for nausea. PHYSICAL EXAMINATION: Blood pressure 126/78 with a temp of 97.5, pulse 90, respirations 18, saturating 95% on room air. Her weight is 415 pounds with BMI of 50. Blood sugars 202 and 200 yesterday as well. Awake, alert, oriented in time and place in no distress, chronically ill, morbidly obese. Eyes: PERRLA. Mucosa is moist. Dentition is poor with periodontal disease, missing some pieces. Tongue with no thrush. Neck is supple. Lungs: Clear to auscultation. She was able to roll laterally to evaluate posterior jacobsen. Grossly, no crackles, wheezes or rhonchi but difficult to assess due to the habitus of the patient. Leg edema 1 plus. Onychogryphosis. The patient has edema also in abdominal wall, in external genital skin as well as in thoracic wall. Abdomen is soft. Bowel sounds are present. No bladder distention. Cranial nerves are grossly intact. Motor 5/5 upper and 4+/5 lower symmetric. Pain in the right hip. As per her, she points out to iliosacral area and not to the groin which is the referred pain for the hip and when we are making evaluation and we are moving the foot, the patient does not have really the pain. She does not become tachycardic and the blood pressure is stable. BLOOD WORK RESULTS: White cell count of 5.8, hemoglobin 11.7. Sodium 138, potassium 4.3, creatinine 0.6, BUN 14. This is from January 29, 2021. IMPRESSION AND DIAGNOSES: 1. Musculoskeletal pain on the right hip. Multiple contributors, one is the immobility, the other one is the weight, other one is deconditioning. The patient is on Percocet and prednisone in the hospital as well as morphine as needed, then it was changed to morphine extended release which she is taking right now. We will keep it like that for over the weekend. Next week, we can change the morphine long-acting to short-acting and with taper progressively. We can do Tylenol (more content not included)...[facility]03-17-2021 Note Patient Education Materials [facility]ments Appointment Date:10/22/2021 12:30:00 PM Scheduled Provider:Mino Asencio DO Location:FT.ONCOLOGY Appointment Type:ONC Video Visit 15 (FT) Future Scheduled Tests Laboratory* CBC w/ Auto Diff 05/25/21 * Comprehensive Metabolic Panel 05/25/21 * Lactate Dehydrogenase 05/25/21 Radiology* CT Abdomen/Pelvis w/ Contrast 10/27/21 * CT Chest w/ Contrast 10/27/21 [facility] Evaluation + Plan note Future Appointments Appointment Date:06/21/2022 07:20:00 AM Scheduled Provider:Marisol Bernard CNP Location:[facility] Appointment Type:FM Open Appointment Date:10/04/2022 02:00:00 PM Scheduled Provider:Candis Holley Location:FT.ONCOLOGY Appointment Type:ONC Office Visit 30 (FT) Future Scheduled Tests Radiology* CT Abdomen/Pelvis w/ Contrast 03/18/22 * CT Chest w/ Contrast 03/18/22 [facility] Evaluation + Plan note Future Appointments Appointment Date:10/04/2022 02:00:00 PM Scheduled Provider:Candis Holley Location:FT[facility]COLOGY Appointment Type:ONC Office Visit 30 (FT) Appointment Date:12/20/2022 07:00:00 AM Scheduled Provider:Dana Butler Location:[facility] Appointment Type: Open Future Scheduled Tests Radiology* CT Abdomen/Pelvis w/ Contrast 03/18/22 * CT Chest w/ Contrast 03/18/22 [facility] Evaluation + Plan note Future Appointments Appointment Date:09/27/2022 02:00:00 PM Scheduled Provider:Candis Holley Location:.ONCOLOGY Appointment Type:ONC Office Visit 30 (FT) Appointment Date:12/20/2022 07:00:00 AM Scheduled Provider:Dana Butler Location:[facility] Appointment Type:FM Open Diagnostic Tests Pending * Nicotine and Metabolite, Quant 07/15/22 Future Scheduled Tests Radiology* CT Abdomen/Pelvis w/ Contrast 03/18/22 * CT [facility]/ [facility] Appointment Date:09/27/2022 02:00:00 PM Scheduled Provider:Candis Hol[facility] Type[facility] Office Visit 30 (FT) Appointment Date:12/20/2022 07:00:00 AM Scheduled Provider:Dana Butler Location:[facility] Appointment Type:FM Open Future Scheduled Tests Radiology* CT Abdomen/Pelvis w/ Contrast 03/18/22 * CT Chest w/ Contrast 03/18/22 [facility] Evaluation + Plan note Future Appointments Appointment Date:09/17/2022 09:00:00 AM Scheduled Provider:LYNDSAY BARAHONA CNP Location:[facility] Appointment Type:FM Open Appointment Date:09/27/2022 02:00:00 PM Scheduled Provider:Candis Holley [facility] Type:ONC Office Visit 30 (FT) Appointment Date:12/20/2022 07:00:00 AM Scheduled Provider:Dana Butler Location:[facility] Appointment Type:FM Open Future Scheduled Tests Radiology* CT Abdomen/Pelvis w/ Contrast 03/18/22 * CT Chest w/ Contrast 03/18/22 [facility] Evaluation + Plan note Future Appointments Appointment Date:10/12/2022 08:20:00 AM Scheduled Provider:LYNDSAY BARAHONA CNP Location:[facility] Appointment Type:FM Open Appointment Date:10/12/2022 02:00:00 PM Scheduled Provider:ARISTIDES BORJA MD Location:[facility]ONCOLOGY Appointment Type:ONC Supportive Care New (FT) Appointment Date:12/20/2022 07:00:00 AM Scheduled Provider:Dana Butler Location:[facility] Appointment Type:FM Open Appointment Date:04/07/2023 01:45:00 PM Scheduled Provider:Mino Asencio DO Location:.ONCOLOGY Appointment Type:ONC Office Visit 15 (FT) Future Scheduled Tests Laboratory* CBC w/ Auto Diff 04/02/23 * Comprehensive Metabolic Panel 04/02/23 * Lactate Dehydrogenase 04/02/23 Radiology* CT Abdomen/Pelvis w/ Contrast 03/18/22 * CT Chest w/ Contrast 03[facility]18/22 [facility]ments Appointment Date:11/01/2022 02:00:00 PM Scheduled Provider:ARISTIDES BORJA MD Location:[facility]ONCOLOGY Appointment Type:ONC Supportive Care Follow Up (FT) Appointment Date:12/20/2022 07:00:00 AM Scheduled Provider:Dana Butler Location:[facility] Appointment Type: Open Appointment Date:04/07/2023 01:45:00 PM Scheduled Provider:Mino Asencio DO Location:.ONCOLOGY Appointment Type:ONC Office Visit 15 (FT) Future Scheduled Tests Laboratory* CBC w/ Auto Diff 04/02/23 * Comprehensive Metabolic Panel 04/02/23 * Lactate Dehydrogenase 04/02/23 Radiology* CT Abdomen/Pelvis w/ Contrast 03/18/22 * CT Chest w/ Contrast 03/18/22 [facility]ments Appointment Date:11/23/2022 02:00:00 PM Scheduled Provider:ARISTIDES BORJA MD Location:[facility]ONCOLOG[facility] Appointment Type:ONC Supportive Care Follow Up (FT) Appointment Date:12/20/2022 07:00:00 AM Scheduled Provider:Dana Butler Location:[facility] Appointment Type:FM Open Appointment Date:04/07/2023 01:45:00 PM Scheduled Provider:Mino Asencio DO Location:.ONCOLOGY Appointment Type:ONC Office Visit 15 (FT) Future Scheduled Tests Laboratory* CBC w/ Auto Diff 04/02/23 * Comprehensive Metabolic Panel 04/02/23 * Lactate Dehydrogenase 04/02/23 Radiology* CT Abdomen/Pelvis w/ Contrast 03/18/22 * CT Chest w/ Contrast 03/18/22 [facility] App[facility]ments Appointment Date:12/20/2022 07:00:00 AM Scheduled Provider:Dana Butler Location:[facility] Appointment Type:FM Open Appointment Date:12/28/2022 02:00:00 PM Scheduled Provider:ARISTIDES BORJA MD [facility] Type:ONC Supportive Care Follow Up (FT) Appointment Date:04/07/2023 01:45:00 PM Scheduled Provider:Mino Asencio DO [facility] Type:[facility]C Office Visit 15 (FT) Future Scheduled Tests Laboratory* CBC w/ Auto Diff 04/02/23 * CBC w/ Auto Diff 11/23/22 * Comprehensive Metabolic Panel 04/02/23 * Comprehensive Metabolic Panel 11/23/22 * Lactate Dehydrogenase 04/02/23 * PT 11/09/22 * PT 11/23/22 Radiology* CT Abdomen/Pelvis w/ Contrast 03/18/22 * CT Chest w/ Contrast 03/18/22 [facility]ments Appointment Date:12/28/2022 02:00:00 PM Scheduled Provider:ARISTIDES BORJA MD [facility] Type:ONC Supportive Care Follow Up (FT) Appointment Date:04/07/2023 01:45:00 PM Scheduled Provider:Mino Asencio DO Location:.ONCOLOGY Appointment Type:ONC Office Visit 15 (FT) Future Scheduled Tests Laboratory* CBC w/ Auto Diff 04/02/23 * CBC w/ Auto Diff 11/23/22 * Comprehensive Metabolic Panel 04/02/23 * Comprehensive Metabolic Panel 11/23/22 * Lactate Dehydrogenase 04/02/23 * PT 11/09/22 * PT 11/23/22 Radiology* CT Abdomen/Pelvis w/ Contrast 03/18/22 * CT Chest w/ Contrast 03/18/22 [facility] Evaluation + Plan note Future Appointments Appointment Date:12/28/2022 02:00:00 PM Scheduled Provider:ARISTIDES BORJA MD Location:[facility].ONCOLOGY Appointment Type:ONC Supportive Care Follow Up (FT) Appointment Date:04/07/2023 01:45:00 PM Scheduled Provider:Mino Asencio DO Location:[facility].ONCOLOGY Appointment Type:ONC Office Visit 15 (FT) Future Scheduled Tests Laboratory* CBC w/ Auto Diff 04/02/23 * CBC w/ Auto Diff 11/23/22 * Comprehensive Metabolic Panel 04/02/23 * Comprehensive Metabolic Panel 11/23/22 * Lactate Dehydrogenase 04/02/23 * PT 11/09/22 * PT 11/23/22 Radiology* US Extremity Non-Vascular Limited Left 12/21/22 * CT Abdomen/Pelvis w/ Contrast 03/18/22 * CT Chest w/ Contrast 03/18/22 [facility] [place] Evaluation + Plan note Future Appointments Appointment Date:01/19/2023 02:00:00 PM Scheduled Provider:ARISTIDES BORJA MD Location:FT.ONCOLOGY Appointment Type:ONC Supportive Care Follow Up (FT) Appointment Date:04/07/2023 01:45:00 PM Scheduled Provider:Mino Asencio DO Location:FT.ONCOLOGY Appointment Type:ONC Office Visit 15 (FT) Future Scheduled Tests Laboratory* CBC w/ Auto Diff 04/02/23 * CBC w/ Auto Diff 11/23/22 * Comprehensive Metabolic Panel 04/02/23 * Comprehensive Metabolic Panel 11/23/22 * Lactate Dehydrogenase 04/02/23 * PT 11/09/22 * PT 11/23/22 Radiology* CT Abdomen/Pelvis w/ Contrast 03/18/22 * CT Chest w/ Contrast 03/18/22 [facility]ments Appointment Date:04/07/2023 01:45:00 PM Scheduled Provider:Mino Asencio DO Location:FT.ONCOLOGY Appointment Type:ONC Office Visit 15 (FT) Future Scheduled Tests Laboratory* CBC w/ Auto Diff 04/02/23 * CBC w/ Auto Diff 11/23/22 * Comprehensive Metabolic Panel 04/02/23 * Comprehensive Metabolic Panel 11/23/22 * Lactate Dehydrogenase 04/02/23 * PT 11/09/22 * PT 11/23/22 Radiology* CT Abdomen/Pelvis w/ Contrast 03/18/22 * CT Chest w/ Contrast 03/18/22 [facility] App[facility]ments Appointment Date:03/30/2023 10:00:00 AM Scheduled Provider:ARISTIDES BORJA MD Location:FT.ONCOLOGY Appointment Type:ONC Supportive Care Follow Up (FT) Appointment Date:04/07/2023 01:45:00 PM Scheduled Provider:Mino Asencio DO Location:.ONCOLOGY Appointment Type:ONC Office Visit 15 (FT) Future Scheduled Tests Laboratory* CBC w/ Auto Diff 04/02/23 * CBC w/ Auto Diff 11/23/22 * Comprehensive Metabolic Panel 04/02/23 * Comprehensive Metabolic Panel 11/23/22 * Lactate Dehydrogenase 04/02/23 * PT 11/09/22 * PT 11/23/22 Radiology* CT Abdomen/Pelvis w/ Contrast 03/18/22 * CT Chest w/ Contrast 03/18/22 * MA Mamm Screen w/CAD if perf and 3D Chucho 03/16/23 [facility] App[facility]ments Appointment Date:04/20/2023 10:30:00 AM Scheduled Provider:ARISTIDES BORJA MD Location:FT.ONCOLOGY Appointment Type:ONC Supportive Care Follow Up (FT) Appointment Date:10/13/2023 10:45:00 AM Scheduled Provider:Mino Asencio DO Location:.ONCOLOGY Appointment Type:ONC Office Visit 30 (FT) Future Scheduled Tests Laboratory* CBC w/ Auto Diff 10/06/23 * CBC w/ Auto Diff 11/23/22 * Comprehensive Metabolic Panel 10/06/23 * Comprehensive Metabolic Panel 11/23/22 * Lactate Dehydrogenase 10/06/23 * PT 11/09/22 * PT 11/23/22 Radiology* MA Mamm Screen w/CAD if perf and 3D Chucho 03/16/23 [facility] Appointments Appointment Date:04/20/2023 10:30:00 AM Scheduled Provider:ARISTIDES BORJA MD Location:.ONCOLOGY Appointment Type:ONC Supportive Care Follow Up (FT) Appointment Date:10/13/2023 10:45:00 AM Scheduled Provider:Mino Asencio DO Location:FT.ONCOLOGY Appointment Type:ONC Office Visit 30 (FT) Diagnostic Tests Pending * Vitamin B1 04/18/23 Future Scheduled Tests Laboratory* CBC w/ Auto Diff 10/06/23 * CBC w/ Auto Diff 11/23/22 * Comprehensive Metabolic Panel 10/06/23 * Comprehensive Metabolic Panel 11/23/22 * Lactate Dehydrogenase 10/06/23 * PT 11/09/22 * PT 11/23/22 Radiology* MA Mamm Screen w/CAD if perf and 3D Chucho 03/16/23 [facility] App[facility]ments Appointment Date:05/31/2023 10:30:00 AM Scheduled Provider:ARISTIDES BORJA MD Location:.ONCOLOGY Appointment Type:ONC Supportive Care Follow Up (FT) Appointment Date:10/13/2023 10:45:00 AM Scheduled Provider:Mino Asencio DO Location:.ONCOLOGY Appointment Type:ONC Office Visit 30 (FT) Future Scheduled Tests Laboratory* CBC w/ Auto Diff 10/06/23 * CBC w/ Auto Diff 11/23/22 * Comprehensive Metabolic Panel 10/06/23 * Comprehensive Metabolic Panel 11/23/22 * Lactate Dehydrogenase 10/06/23 * PT 11/09/22 * PT 11/23/22 Radiology* MA Mamm Screen w/CAD if perf and 3D Chucho 03/16/23 [facility] Appointments Appointment Date:05/31/2023 10:30:00 AM Scheduled Provider:ARISTIDES BORJA MD Location:.ONCOLOGY Appointment Type:ONC Supportive Care Follow Up (FT) Appointment Date:05/31/2023 11:00:00 AM Scheduled Provider: Location:.ONCOLOGY Appointment Type:ONC Venofer (FT) Appointment Date:06/07/2023 11:00:00 AM Scheduled Provider: Location:.ONCOLOGY Appointment Type:ONC Venofer (FT) Appointment Date:10/13/2023 10:45:00 AM Scheduled Provider:Mino Asencio DO Location:.ONCOLOGY Appointment Type:ONC Office Visit 30 (FT) Future Scheduled Tests Laboratory* CBC w/ Auto Diff 10/06/23 * Comprehensive Metabolic Panel 10/06/23 * Lactate Dehydrogenase 10/06/23 [facility] App[facility]ments Appointment Date:06/02/2023 02:45:00 PM Scheduled Provider: Location:.[facility] Appointment Type:MA Screen (FT) Appointment Date:06/07/2023 10:00:00 AM Scheduled Provider: Location:.ONCOLOGY Appointment Type:ONC Venofer (FT) Appointment Date:06/28/2023 10:30:00 AM Scheduled Provider:ARISTIDES BORJA MD Location:.ONCOLOGY Appointment Type:ONC Supportive Care Follow Up (FT) Appointment Date:10/13/2023 10:45:00 AM Scheduled Provider:Mino Asencio DO Location:.ONCOLOGY Appointment Type:ONC Office Visit 30 (FT) Future Scheduled Tests Laboratory* CBC w/ Auto Diff 10/06/23 * Comprehensive Metabolic Panel 10/06/23 * Lactate Dehydrogenase 10/06/23 Radiology* MA Mamm Screen w/CAD if perf and 3D Chucho 06/02/23 [facility] App[facility]ments Appointment Date:06/28/2023 10:30:00 AM Scheduled Provider:ARISTIDES BORJA MD Location:.ONCOLOGY Appointment Type:ONC Supportive Care Follow Up (FT) Appointment Date:10/13/2023 10:45:00 AM Scheduled Provider:Mino Asencio DO Location:.ONCOLOGY Appointment Type:ONC Office Visit 30 (FT) Future Scheduled Tests Laboratory* CBC w/ Auto Diff 10/06/23 * Comprehensive Metabolic Panel 10/06/23 * Ferritin 09/05/23 * Iron Level 09/05/23 * Iron Percent Saturation 09/05/23 * Lactate Dehydrogenase 10/06/23 * Transferrin 09/05/23 [facility]ments Appointment Date:10/13/2023 10:45:00 AM Scheduled Provider:Mino Asencio DO Location:.ONCOLOGY Appointment Type:ONC Office Visit 30 (FT) Future Scheduled Tests Laboratory* CBC w/ Auto Diff 10/06/23 * Comprehensive Metabolic Panel 10/06/23 * Ferritin 09/05/23 * Iron Level 09/05/23 * Iron Percent Saturation 09/05/23 * Lactate Dehydrogenase 10/06/23 * Transferrin 09/05/23 [facility] App[facility]ments Appointment Date:10/13/2023 10:45:00 AM Scheduled Provider:Mino Asencio DO Location:FT.ONCOLOGY Appointment Type:ONC Office Visit 30 (FT) Diagnostic Tests Pending * Vitamin B1 07/05/23 Future Scheduled Tests Laboratory* CBC w/ Auto Diff 10/06/23 * Comprehensive Metabolic Panel 10/06/23 * Ferritin 09/05/23 * Iron Level 09/05/23 * Iron Percent Saturation 09/05/23 * Lactate Dehydrogenase 10/06/23 * Transferrin 09/05/23 [facility] App[facility]ments Appointment Date:10/13/2023 10:45:00 AM Scheduled Provider:Mino Asencio DO Location:.ONCOLOGY Appointment Type:ONC Office Visit 30 (FT) Future Scheduled Tests Laboratory* CBC w/ Auto Diff 04/07/24 * Comprehensive Metabolic Panel 04/07/24 [facility] Tests Laboratory* CBC w/ Auto Diff 04/07/24 * CBC w/ Auto Diff 10/12/24 * Comprehensive Metabolic Panel 04/07/24 * Comprehensive Metabolic Panel 10/12/24 * Ferritin 10/12/24 * Folate Level 10/12/24 * Iron Level 10/12/24 * Iron Percent Saturation 10/12/24 * Lactate Dehydrogenase 10/12/24 * Transferrin 10/12/24 * Vitamin B12 Level 10/12/24 [facility] note* Diagnosis Chest pain, unspecified type- Primary Cough Nausea Nausea alone documented in this encounter [facility] Phone: [email or web address] note* Diagnosis Chest pain, unspecified type- Primary documented in this encounter [facility] Phone: [email or web address] note* Diagnosis Pain due to onychomycosis of toenail of left foot- Primary Pain due to onychomycosis of toenail of right foot Onychomycosis of multiple toenails with type 2 diabetes mellitus (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 Long-term (current) use of anticoagulants [facility] Diagnosis Pain in right hip- Primary Pain in joint, pelvic region and thigh [facility] noteNo assessment information [facility]High[facility] Work Phone: Evaluation note* Diagnosis Onychomycosis- Primary Dermatophytosis of nail Type II diabetes mellitus with neurological manifestations (CMS/HCC) Type II or unspecified type diabetes mellitus with neurological manifestations, not stated as uncontrolled Pain in left toe(s) Pain in right toe(s) [facility] N[facility] No data available for this section [facility] Discharge instructions* Instructions* Jacklyn Knight PA-C - 03/19/2021 Please follow up with your primary care doctor in 1 day as well * Attachments The following attachments cannot be sent through Care Everywhere. * Nausea and Vomiting (Nauruan) * Chest [facility] (Nauruan) [facility]* Attachments The following attachments cannot be sent through Care Everywhere. * Chest Pain (Nauruan) [facility] Discharge instructions No data available for this section [facility] Progress note No data available for this section [facility] Diagnostic Procedure Only (Routine) - Pending Review Specialty Diagnoses / Procedures Referred By Julio vazquez Referred To Contact XR IMAGING Diagnoses Pain in right hip Procedures XR HIP GENERAL 3V PELV/AP/LAT RIGHT RADEX HIP UNILATERAL WITH PELVIS 2-3 VIEWS Gamal Yin PA-C [address] [place] [address] Xr Imaging Referral ID Status Reason Start Date Expiration Date Visits Requested Visits Authorized [id number] Pending Review Auto-Generat ed Referral 08/14/2021 09/13/2022 1 1 [facility] Summary Purpose Family History Relationship Condition Age at Onset Recorded Date/T james father Hypertension Unknown High blood cholesterol Unknown Not Specified Diabetes mellitus Unknown Cerebrovascular accident (CVA) Unknown Advance Directives Documents on File Type Date Recorded Patient Assembly Line Leader Expl anation Advance Directives and Living Will Power of Patient Access Director Latest Code Status on File Code Status Date Activated Date Inactivated Comments Full Code 12/19/2018 3:25 AM Full Code 11/01/2017 5:51 PM 11/07/2017 8:40 PM Full Code 02/22/2016 10:39 PM 02/26/2016 9:01 PM Documents on File Type Date Recorded Patient Assembly Line Leader Expl anation ACP-Advance Directive ACP-Power of Patient Access Director Latest Code Status on File Code Status Date Activated Date Inactivated Comments Full Code 04/21/2020 12:11 PM Full Code 12/19/2018 3:25 AM 12/21/2018 8:13 PM Full Code 11/01/2017 5:51 PM 11/07/2017 8:40 PM Full Code 02/22/2016 10:39 PM 02/26/2016 9:01 PM Documents on File Type Date Recorded Patient Assembly Line Leader Expl anation ACP-Advance Directive ACP-Power of Patient Access Director Latest Code Status on File Code Status Date Activated Date Inactivated Comments Full Code 04/21/2020 12:11 PM 04/30/2020 2:20 AM Full Code 12/19/2018 3:25 AM 12/21/2018 8:13 PM Advance Directive Response Recorded Date/ Time Advance Directives No March 11:08am Hospital Course Note Send Summary: Discharge Summ tom Providers: Provider RoleProvider Name ReferringRequired, No Pcp Aurora Cramer Roberta Note Recipients: Unknown, MD Malka Discharge: Summary: Admission Date: .07-Nov-2018 14:18:00 Discharge Date: 10-Nov-2018 Attending Physician at Discharge: Tank Elizabeth Admission Reason: bilateral leg cellulitis, left leg foul drainage, ulcerative groin lesions(1) Final Discharge Diagnoses: Cellulitis, Nausea, Pruritus, Procedures: none Condition at Discharge: Satisfactory Disposition at Discharge: .Home Vital Signs: T PRBPSpO2 Value36.69898754/5098% Date/Time11/10 14: 14: 14: 14: 14:45 Range(36.2C - 36.9C ) (72 - 89 ) (14 - 18 ) (103 - 117 )/ (50 - 66 ) (94% - 99% ) Highest temp of 36.9 C was recorded at 11/10 0:00 Hospital Course: The patient was admitted to the hospital and after initial evaluation in the ER with a diagnosis of bilateral lower extremity cellulitis. The lower extremities and only showed hypertrophic skin c (more content not included)... Note EMERGENCY DEPARTMENT DISCHAR GE SUMMARY PATIENT NAME:LISA MCDANIELS MRN: [id number] AGE: 39 Years SEX: Female PHONE:[phone] DOS: 06/29/2020 23:49:00 : 1980 ATTENDING PHYSICIAN:Kaylyn Pedersen MD, V PCP: Divine Herrera MD CHIEF COMPLAINT: CP Allergies penicillin (Rash) vancomycin (Kidney failure) Darvocet-N 100 (Hives or rash) Problems No Problems Documented DISCHARGE DIAGNOSIS: DISCHARGE INSTRUCTIONS: Nonspecific Chest Pain ED PHYSICIAN DOCUMENTATION: History of Present Illness The patient is a?39-year-old female with history of large B-cell lymphoma, hypertension, TYLER, morbid obesity, chronic hypoxemic respiratory failure?who presents the ED for evaluation of chest pain. ?Patient states she developed?aching chest pain around 5:00?PM this evening. ?Is been constant for the past?7 hours and radiates toward the left shoulder region.? Patient resides in a nursing facility. ?She states her last chemotherapy was 2 weeks ago.? She was recently discharged from [facility] (more content not included)... Discharge Instructions * Discharge Instr - Activity* Pascual Bush, ALICIA - 12/21/2018 3:08 PM EDT Up as tolerated. Continue to increase daily. * Discharge Instr - Diet* Pascual Bush RN - 12/21/2018 3:08 PM EDT ? Good nutrition is important when healing from an illness, injury, or surgery. Follow any nutrition recommendations given to you during your hospital stay. ? If you were given an oral nutrition supplement while in the hospital, continue to take this supplement at home. You can take it with meals, in-between meals, and/or before bedtime. These supplements can be purchased at most local grocery stores, pharmacies, and chain super-stores. ? If you have any questions about your diet or nutrition, call the hospital and ask for the dietitian. 3 carb diet is recommended. * Discharge Instr - MCKENZIE* Pascual Bush RN - 12/20/2018 4:14 PM EDT Continuity of Care Form Patient Name: Lisa Mcdaniels : 1980 Admit date: 12/18/2018 Discharge date: 12/21/2018 Code Status Order: Full Code Advance Directives: Advance Care Flowsheet Documentation Date/Time Healthcare Directive Type of Healthcare Directive Copy in Chart Healthcare Agent Appointed Healthcare Agent's Name Healthcare Agent's Phone Number 12/19/18 0333 No, patient does not have an advance directive for healthcare treatment -- -- -- -- -- Admitting Physician: Zaria Shah MD PCP: Josse Dumont APRN - DECK SUPERVISOR Discharging Nurse: Pascual Bush Discharging Hospital Unit/Room#: W465/W465-01 Discharging Unit Emergency Contact: Extended Emergency Contact Information Primary Emergency Contact: Jaylen Caldwell Address: [address] [place] [address] of [place] [employer] Relation: Parent Past Surgical History: Past Surgical History: Procedure Laterality Date SECTION CHOLECYSTECTOMY TONSILLECTOMY Immunization History: There is no immunization history on file for this patient. Active Problems: Patient Active Problem List Diagnosis Code Cellulitis and abscess of leg L03.119, L02.419 Sepsis ([facility]) A41.9 Diabetes ([facility]) E11.9 Morbid obesity due to excess calories ([facility]) E66.01 Leg pain, left M79.605 Umbilical hernia K42.9 Ruptured varicosity I83.90 Iron deficiency anemia D50.9 Anticoagulated Z79.01 Acute cystitis with hematuria-Klebsiella oxytoca N30.01 Gait abnormality R26.9 DVT (deep vein thrombosis) in ([facility]) O22.30, I82.409 PE (pulmonary thromboembolism) ([facility]) I26.99 Hypertension I10 Migraine G43.909 Cellulitis L03.90 Lactic acid acidosis E87.2 Skin ulcer, limited to breakdown of skin ([facility]) L98.491 Isolation/Infection: Isolation Contact Patient Infection Status Infection Onset Added Last Indicated Last Indicated By Review Planned Expiration Resolved Resolved By MRSA 11/06/18 11/09/18 11/06/18 Anaerobic and Aerobic Culture Left leg wound Positive for MRSA 11.06.18 , Nurse Assessment: Last Vital Signs: BP (!) 104/46 Pulse 85 Temp 98.8 F (37.1 C) (Oral) Resp 18 Ht 5' 9 (1.753 m) Wt (!) 475 lb 12 oz (215.8 kg) SpO2 98% BMI 70.26 kg/m Last documented pain score (0-10 scale): Pain Level: 8 Last Weight: Wt Readings from Last 1 Encounters: 12/19/18 (!) 475 lb 12 oz (215.8 kg) Mental Status: oriented and alert IV Access: - PICC - site R Basilic, insertion date: 12/20/2018 Nursing Mobility/ADLs: Walking Independent Transfer Independent Bathing Independent Dressing Independent Toileting Independent Feeding Independent Precision Farming Coordinator Independent Med Delivery whole Wound Care Documentation and Therapy: Elimination: Continence: Bowel: Yes Bladder: Yes Urinary Catheter: None Colostomy/Ileostomy/Ileal Conduit: No Date of Last BM: 12/20/2018 Intake/Output Summary (Last 24 hours) at 12/20/2018 1613 Last data filed at 12/20/2018 0428 Gross per 24 hour Intake 2791 ml Output 1360 ml Net 1431 ml I/O last 3 completed shifts: In: 2791 [P.O.:360; I.V.:2431] Out: 1360 [Urine:1360] Safety Concerns: None Impairments/Disabilities: None Nutrition Therapy: Current Nutrition Therapy: - Oral Diet: Carb Control 3 carbs/meal (1500kcals/day) Routes of Feeding: Oral Liquids: No Restrictions Daily Fluid Restriction: no Last Modified Barium Swallow with Video (Video Swallowing Test): not done Treatments at the Time of Hospital Discharge: Respiratory Treatments: Oxygen Therapy: is not on home oxygen therapy. Ventilator: - No ventilator support Rehab Therapies: Weight Bearing Status/Restrictions: No weight bearing restirctions Other Medical Equipment (for information only, NOT a DME order): Other Treatments: Patient's personal belongings (please select all that are sent with patient): Graciela VARGAS SIGNATURE: MANAGEMENT/SOCIAL WORK SECTION Inpatient Status Date: Readmission Risk Assessment Score: Readmission Risk Risk of Unplanned Readmission: 12 Discharging to Facility/ Agency [facility] [phone] Packing Machine Pilot Can Router/Welder Apprentice Gas signature: ICIAN SECTION Prognosis: {Prognosis:0057537515} Condition at Discharge: { Patient Condition:925693000} Rehab Potential (if transferring to Rehab): {Prognosis:7224805699} Recommended Labs or Other Treatments After Discharge: Physician Certification: I certify the above information and transfer of Lisa Mcdaniels is necessary for the continuing treatment of the diagnosis listed and that she requires {Admit to Appropriate Level of Care:46978} for {GREATER/LESS:712341779} 30 days. Update Admission H&P: {CHP DME Changes in HandP:329851913} PHYSICIAN SIGNATURE: {Esignature:515212370} * Attachments The following attachments cannot be sent through Care Everywhere. * Cellulitis (Nauruan) * Low-Carbohydrate Diet for Weight Loss: General Info (Nauruan) * PICC (Peripherally Inserted Central Catheter) (Nauruan) documented in this encounter* Discharge Instr - Activity* Lisa Thomas APRN - NP - 04/28/2020 4:13 PM EST Activity as tolerated * Discharge Instr - Diet* Lisa Thomas APRN - NP - 04/28/2020 4:13 PM EST Good nutrition is important when healing from an illness, injury, or surgery. Follow any nutrition recommendations given to you during your hospital stay. If you were given an oral nutrition supplement while in the hospital, continue to take this supplement at home. You can take it with meals, in-between meals, and/or before bedtime. These supplements can be purchased at most local grocery stores, pharmacies, and chain super-stores. If you have any questions about your diet or nutrition, call the hospital and ask for the dietitian. Regular, cardiac diet * Discharge Instr - MCKENZIE* Eli Lamb, DO - 04/29/2020 12:36 PM EST Continuity of Care Form Patient Name: Lisa Mcdaniels : 1980 Admit date: 04/21/2020 Discharge date: Code Status Order: Full Code Advance Directives: Advance Care Flowsheet Documentation Date/Time Healthcare Directive Type of Healthcare Directive Copy in Chart Healthcare Agent Appointed Healthcare Agent's Name Healthcare Agent's Phone Number 04/21/20 1823 No, patient does not have an advance directive for healthcare treatment -- -- -- -- -- Admitting Physician: Jesús Nguyen MD PCP: No primary care provider on file. Discharging Nurse: Discharging Hospital Unit/Room#: 0428/0428-02 Discharging Unit Phone Number: Emergency Contact: Extended Emergency Contact Information Primary Emergency Contact: Jaylen Caldwell Address: [address] [place] [address] of [facility] Mobile Relation: Parent Past Surgical History: Past Surgical History: Procedure Laterality Date SECTION CHOLECYSTECTOMY HC PICC POWERPIC TRIPLE 04/21/2020 IR BIOPSY BONE NEEDLE SUPERFCL 04/25/2020 IR BIOPSY BONE NEEDLE SUPERFCL 04/25/2020 Steph Veliz MD [facility] SPECIAL PROCEDURES TONSILLECTOMY Immunization History: There is no immunization history on file for this patient. Active Problems: Patient Active Problem List Diagnosis Code Cellulitis and abscess of leg L03.119, L02.419 Sepsis ([facility]) A41.9 Diabetes ([facility]) E11.9 Morbid obesity due to excess calories ([facility]) E66.01 Leg pain, left M79.605 Umbilical hernia K42.9 Ruptured varicosity I83.899 Iron deficiency anemia D50.9 Anticoagulated Z79.01 Acute cystitis with hematuria-Klebsiella oxytoca N30.01 Gait abnormality R26.9 DVT (deep vein thrombosis) in O22.30 PE (pulmonary thromboembolism) ([facility]) I26.99 Hypertension I10 Migraine G43.909 Cellulitis L03.90 Skin ulcer, limited to breakdown of skin ([facility]) L98.491 Pelvic fracture ([facility]) S32.9XXA Isolation/Infection: Isolation Contact Patient Infection Status Infection Onset Added Last Indicated Last Indicated By Review Planned Expiration Resolved Resolved By MRSA 11/06/18 11/09/18 11/06/18 Anaerobic and Aerobic Culture Left leg wound Positive for MRSA 11.06.18 , Resolved COVID-19 Rule Out 04/21/20 04/21/20 04/21/20 COVID-19 (Ordered) 04/24/20 Dionna Craig RN Nurse Assessment: Last Vital Signs: BP 130/70 Pulse 80 Temp 97.7 F (36.5 C) (Oral) Resp 19 Ht 5' 9 (1.753 m) Wt (!) 415 lb (188.2 kg) SpO2 98% BMI 61.28 kg/m Last documented pain score (0-10 scale): Pain Level: 7 Last Weight: Wt Readings from Last 1 Encounters: 04/23/20 (!) 415 lb (188.2 kg) Mental Status: {IP PT MENTAL STATUS:70479:::0} IV Access: { MCKENZIE IV ACCESS:255516547:::0} Nursing Mobility/ADLs: Walking {CHP DME ADLs:873780767:::0} Transfer {CHP DME ADLs:718276220:::0} Bathing {CHP DME ADLs:893860349:::0} Dressing {CHP DME ADLs:013555833:::0} Toileting {CHP DME ADLs:848029728:::0} Feeding {CHP DME ADLs:558116866:::0} Precision Farming Coordinator {CHP DME ADLs:256093801:::0} Med Delivery { MCKENZIE MED Delivery:165511304:::0} Wound Care Documentation and Therapy: Elimination: Continence: Bowel: {YES / NO:} Bladder: {YES / NO:} Urinary Catheter: {Urinary Catheter:572692051:::0} Colostomy/Ileostomy/Ileal Conduit: {YES / NO:} Date of Last BM: Intake/Output Summary (Last 24 hours) at 04/29/2020 1236 Last data filed at 04/29/2020 1224 Gross per 24 hour Intake 1252.6 ml Output 1225 ml Net 27.6 ml I/O last 3 completed shifts: In: 1252.6 [P.O.:830; I.V.:422.6] Out: 2024 [Urine:2024] Safety Concerns: { MCKENZIE Safety Concerns:209136389:::0} Impairments/Disabilities: { MCKENZIE Impairments/Disabilities:575869188:::0} Nutrition Therapy: Current Nutrition Therapy: { MCKENZIE Diet List:295397002:::0} Routes of Feeding: {[facility] DME Other Feedings:465622051:::0} Liquids: {[facility] liquid thickness:96981} Daily Fluid Restriction: {[facility] DME Yes amt example:590806161:::0} Last Modified Barium Swallow with Video (Video Swallowing Test): {Done Not Done Date:442397545:::0} Treatments at the Time of Hospital Discharge: Respiratory Treatments: Oxygen Therapy: {Therapy; copd oxygen:54642:::0} Ventilator: {[facility] Vent List:429412242:::0} Rehab Therapies: {THERAPEUTIC INTERVENTION:2978173419} Weight Bearing Status/Restrictions: {[facility] Weight Bearin:::0} Other Medical Equipment (for information only, NOT a DME order): {EQUIPMENT:151148111} Other Treatments: Patient's personal belongings (please select all that are sent with patient): {[facility] DME Belongings:000174487:::0} RN SIGNATURE: {Esignature:626092027:::0} CASE MANAGEMENT/SOCIAL WORK SECTION Inpatient Status Date: Readmission Risk Assessment Score: Readmission Risk Risk of Unplanned Readmission: 11 Discharging to Facility/ Agency Name: Address: Phone: Fax: Dialysis Facility (if applicable) Name: Address: Dialysis Schedule: Phone: Fax: Packing Machine Pilot Can Router/Welder Apprentice Gas signature: {Esignature:459789801:::0} PHYSICIAN SECTION Prognosis: Fair Condition at Discharge: Stable Rehab Potential (if transferring to Rehab): Fair Recommended Labs or Other Treatments After Discharge: none Physician Certification: I certify the above information and transfer of Lisa Mcdaniels is necessary for the continuing treatment of the diagnosis listed and that she requires Care Home Facility for less 30 days. Update Admission H&P: No change in H&P PHYSICIAN SIGNATURE: * Additional Instructions* Renato Alvarez DO - 04/28/2020 Orthopedic Instructions: -Weight bearing status: Nonweight bearing right lower extremity -Ice (20 minutes on and off 1 hour) as needed for swelling/pain -Call the office or come to Emergency Room if signs of infection appear (hot, swollen, red, draining pus, fever) -Take medications as prescribed. -Wean off narcotics (percocet/norco) as soon as possible. Do not take tylenol if still taking narcotics. -Follow up with Dr. Ramos in his office in 10-14 days (05/08). Call [phone] to schedule. Renato Alvarez DO Orthopedic Surgery Resident, PGY-2 [place], [place] documented in this encounter History of Present Illness * Cruz Schwartz MD - 12/21/2018 12:34 PM EDT Infectious Disease Patient Name: Lisa Mcdaniels Date: 12/21/2018 Date of : 1980 Cellulitis of abdomen Review of Systems Constitutional: Negative for chills, diaphoresis, fatigue and fever. HENT: Negative. Respiratory: Negative. Gastrointestinal: Positive for abdominal pain. Negative for diarrhea, nausea and vomiting. Genitourinary: Negative. Musculoskeletal: Negative. Neurological: Negative. BP 132/62 Pulse 76 Temp 98.8 F (37.1 C) (Oral) Resp 18 Ht 5' 9 (1.753 m) Wt (!) 475 lb 12 oz (215.8 kg) SpO2 96% BMI 70.26 kg/m Physical Exam Constitutional: She is oriented to person, place, and time. No distress. Morbidly obese Cardiovascular: Normal heart sounds. No murmur heard. Pulmonary/Chest: Effort normal. No respiratory distress. She has no wheezes. She has no rales. She exhibits no tenderness. Abdominal: Soft. Bowel sounds are normal. She exhibits no distension and no mass. There is tenderness. There is no rebound and no guarding. Musculoskeletal: She exhibits no edema or tenderness. Neurological: She is alert and oriented to person, place, and time. Skin: Skin is warm. She is not diaphoretic. There is erythema. ASSESSMENT: Patient Active Problem List Diagnosis Cellulitis and abscess of leg Sepsis ([facility]) Diabetes ([facility]) Morbid obesity due to excess calories ([facility]) Leg pain, left Umbilical hernia Ruptured varicosity Iron deficiency anemia Anticoagulated Acute cystitis with hematuria-Klebsiella oxytoca Gait abnormality DVT (deep vein thrombosis) in ([facility]) PE (pulmonary thromboembolism) ([facility]) Hypertension Migraine Cellulitis Lactic acid acidosis Skin ulcer, limited to breakdown of skin ([facility]) PLAN: Cellulitis of abdomen Switch toceftriaxone plan for PICC line 2 to 4 weeks IV antibiotics Patient will need to be placed on amoxicillin 500 mg twice a day for life after this resolves to try prevent recurrent Infectious Disease Patient Name: Lisa Mcdaniels Date: 12/21/2018 Date of : 1980 Cellulitis of abdomen Review of Systems Constitutional: Negative for chills, diaphoresis, fatigue and fever. HENT: Negative. Respiratory: Negative. Gastrointestinal: Positive for abdominal pain. Negative for diarrhea, nausea and vomiting. Genitourinary: Negative. Musculoskeletal: Negative. Neurological: Negative. BP 132/62 Pulse 76 Temp 98.8 F (37.1 C) (Oral) Resp 18 Ht 5' 9 (1.753 m) Wt (!) 475 lb 12 oz (215.8 kg) SpO2 96% BMI 70.26 kg/m Physical Exam Constitutional: She is oriented to person, place, and time. No distress. Morbidly obese Cardiovascular: Normal heart sounds. No murmur heard. Pulmonary/Chest: Effort normal. No respiratory distress. She has no wheezes. She has no rales. She exhibits no tenderness. Abdominal: Soft. Bowel sounds are normal. She exhibits no distension and no mass. There is tenderness. There is no rebound and no guarding. Musculoskeletal: She exhibits no edema or tenderness. Neurological: She is alert and oriented to person, place, and time. Skin: Skin is warm. She is not diaphoretic. There is erythema. ASSESSMENT: PLAN: Cellulitis of abdomen Switch toceftriaxone plan for PICC line 2 to 4 weeks IV antibiotics Patient will need to be placed on amoxicillin 500 mg twice a day for life after this resolves to try prevent recurrent * Heidi Vo RN - 12/20/2018 8:00 PM EDT Patient in chair watching tv. IVF infusing. Assessment completed. Abdomen red and tender to touch. Patient c/o 8 pain in abdomen will medicate per JUL. No further needs at this time. * Harini Amador RN - 12/20/2018 6:45 PM EDT Pt assessment completed. Abdomen is very red and warm to touch. Active bowel sounds, diminished lung sounds. She has been up to chair all day. PICC line was placed this afternoon for IV medications at discharge. Patient was very upset by this. Complaints of nausea returning since PICC line placement, unable to medicated due to recently being medicated. * Jaja Ryder MD - 12/20/2018 2:55 PM EDT I take responsibility of PICC line despite patient getting Lovenox today morning Jaja Ryder MD Pager : [phone] * Cruz Schwartz MD - 12/20/2018 1:40 PM EDT Infectious Disease Patient Name: Lisa Mcdaniels Date: 12/20/2018 Date of : 1980 Cellulitis of abdomen Review of Systems Constitutional: Negative for chills, diaphoresis, fatigue and fever. HENT: Negative. Respiratory: Negative. Gastrointestinal: Positive for abdominal pain. Negative for diarrhea, nausea and vomiting. Genitourinary: Negative. Musculoskeletal: Negative. Neurological: Negative. BP (!) 104/46 Pulse 85 Temp 98.8 F (37.1 C) (Oral) Resp 18 Ht 5' 9 (1.753 m) Wt (!) 475 lb 12 oz (215.8 kg) SpO2 98% BMI 70.26 kg/m Physical Exam Constitutional: She is oriented to person, place, and time. No distress. Morbidly obese Cardiovascular: Normal heart sounds. No murmur heard. Pulmonary/Chest: Effort normal. No respiratory distress. She has no wheezes. She has no rales. She exhibits no tenderness. Abdominal: Soft. Bowel sounds are normal. She exhibits no distension and no mass. There is tenderness. There is no rebound and no guarding. Musculoskeletal: She exhibits no edema or tenderness. Neurological: She is alert and oriented to person, place, and time. Skin: Skin is warm. She is not diaphoretic. There is erythema. ASSESSMENT: Patient Active Problem List Diagnosis Cellulitis and abscess of leg Sepsis ([facility]) Diabetes ([facility]) Morbid obesity due to excess calories ([facility]) Leg pain, left Umbilical hernia Ruptured varicosity Iron deficiency anemia Anticoagulated Acute cystitis with hematuria-Klebsiella oxytoca Gait abnormality DVT (deep vein thrombosis) in ([facility]) PE (pulmonary thromboembolism) ([facility]) Hypertension Migraine Cellulitis Lactic acid acidosis Skin ulcer, limited to breakdown of skin ([facility]) PLAN: Cellulitis of abdomen Switch toceftriaxone plan for PICC line 2 to 4 weeks IV antibiotics Patient will need to be placed on amoxicillin 500 mg twice a day for life after this resolves to try prevent recurrent * Jaja Ryder MD - 12/20/2018 12:37 PM EDT Department of Internal Medicine Progress Note SUBJECTIVE: No acute events overnight. ROS: All 12 systems reviewed and negative except mentioned in HPI and Assessment and plan MEDICATIONS: Current Facility-Administered Medications Medication Dose Route Frequency Provider Last Rate Last Dose sodium chloride flush 0.9 % injection 10 mL 10 mL Intravenous 2 times per day RUSS Bear CNP 10 mL at 12/20/18 1007 sodium chloride flush 0.9 % injection 10 mL 10 mL Intravenous PRN Nellie Pentito, 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 10 mL at 12/19/18 0647 magnesium hydroxide (MILK OF MAGNESIA) 400 MG/5ML suspension 30 mL 30 mL Oral Daily PRN Nellie Pentito, 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 ondansetron (ZOFRAN) injection 4 mg 4 mg Intravenous Q6H PRN Nellie Pentito, 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 4 mg at 12/19/184 enoxaparin (LOVENOX) injection 40 mg 40 mg Subcutaneous Daily Nellie Pentito, 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 40 mg at 12/20/18 0952 0.9 % sodium chloride infusion Intravenous Continuous Nellie Pentito, 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 100 mL/hr at 12/20/18 0334 acetaminophen (TYLENOL) tablet 650 mg 650 mg Oral Q4H PRN Nellie Pentito, 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 ketorolac (TORADOL) injection 15 mg 15 mg Intravenous Q6H PRN Nellie Pentito, 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 15 mg at 12/20/18 0334 famotidine (PEPCID) tablet 20 mg 20 mg Oral BID Nellie Pentito, 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 20 mg at 12/20/18 0950 miconazole (MICOTIN) 2 % powder Topical TID Nellie Pentito, 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 ampicillin (OMNIPEN) 2 g in sodium chloride 0.9 % 100 mL IVPB 2 g Intravenous 4 times per day Cruz Schwartz MD Stopped at 12/20/18 1106 ALPRAZolam (XANAX) tablet 1 mg 1 mg Oral BID PRN Jaja Ryder MD docusate sodium (COLACE) capsule 100 mg 100 mg Oral Daily PRN Jaja Ryder MD furosemide (LASIX) tablet 40 mg 40 mg Oral Daily Jaja Ryder MD 40 mg at 12/20/18 0951 potassium chloride (KLOR-CON) extended release tablet 20 mEq 20 mEq Oral Daily with breakfast Jaja Ryder MD 20 mEq at 12/20/18 0951 OXcarbazepine (TRILEPTAL) tablet 300 mg 300 mg Oral QPM Jaja Ryder MD 300 mg at 12/19/18 1750 sertraline (ZOLOFT) tablet 50 mg 50 mg Oral Daily Jaja Ryder MD 50 mg at 12/20/18 0951 [Held by provider] metoprolol tartrate (LOPRESSOR) tablet 25 mg 25 mg Oral BID Jaja Ryder MD tunzwjn-atnbrucduwtfv-tsizzjaq (EXCEDRIN MIGRAINE) per tablet 1 tablet 1 tablet Oral Q8H PRN MD Boyd 1 tablet at 12/19/18 1620 traMADol (ULTRAM) tablet 50 mg 50 mg Oral Q6H PRN Jaja Ryder MD 50 mg at 12/19/18 1620 albuterol (PROVENTIL) nebulizer solution 2.5 mg 2.5 mg Nebulization Q4H PRN Jaja Ryder MD OBJECTIVE: Vital Signs: Vitals: 12/20/18 0730 BP: (!) 104/46 Pulse: 85 Resp: 18 Temp: 98.8 F (37.1 C) SpO2: 98% Focal exam: General Exam (except as mentioned above): CONSTITUTIONAL: Awake, alert, no apparent distress EYES: PERRL, conjunctiva normal ENT: Normocephalic, atraumatic NECK: Supple BACK: Symmetric LUNGS: CTAB except bilateral basilar crackles. CARDIOVASCULAR: S1S2 present ABDOMEN: soft, non-distended, non-tender MUSCULOSKELETAL: There is no redness, warmth, or swelling of the joints. NEUROLOGIC: Alert, awake, oriented x 3. No FND EXTREMITIES: Warm and well perfused. LABS Recent Labs 12/18/18224412/19/18 0612 12/20/18 0651 WBC 16.1* 11.4* 8.6 RBC 5.12 4.45 4.16* HGB 11.9* 10.5* 10.4* HCT 37.1 32.2* 30.6* MCV 72.5* 72.3* 73.6* MCH 23.4* 23.7* 24.9* MCHC 32.2* 32.8* 33.9 RDW 19.3* 19.1* 19.2* PLT 248 226 190 Recent Labs 12/18/18224412/19/18 0612 12/20/18 0652 NA 136 138 140 K 3.8 3.8 3.9 CL 97 103 106 CO2 22 23 24 BUN 12 13 16 CREATININE 0.96* 0.90 0.85 GLUCOSE 149* 124* 89 CALCIUM 8.9 8.2* 7.7* No results for input(s): MG in the last 72 hours. ASSESSMENT AND PLAN Active Hospital Problems Diagnosis Date Noted Leg pain, left [M79.605] 02/21/2016 Priority: High Cellulitis [L03.90] 12/19/2018 Lactic acid acidosis [E87.2] 12/19/2018 Skin ulcer, limited to breakdown of skin ([facility]) [L98.491] 12/19/2018 Hypertension [I10] Morbid obesity due to excess calories ([facility]) [E66.01] 02/21/2016 Diabetes ([facility]) [E11.9] 02/18/2016 - - Left lower extremity pain and swelling: US ruled out DVT. Stasis dermatitis - abdominal pannus: On Ampicillin. Blood cultures negative. Leukocytosis resolved - Hypertension: Continue home meds. Lopressor held due to borderline low blood pressure DVT prophylaxis: Lovenox Jaja Ryder MD Pager : [phone] * Candis Ramirez RN - 12/20/2018 12:50 AM EDT PM assessment completed, patient alert and oriented x4. Lower abdomen reddened, warm and firm. Denies nausea. Patient has c/o 7/10 pain in abdomen, medicated with Toradol per orders. Will continue tomonitor, call light within reach. * Sheree Kerns RN - 12/19/2018 6:08 PM EDT Pt washed up by barge workerminoo Harris and Candis. Linens changed. Pt reports headache down to 6/10 after being medicated with Excedrin migraine and Ultram as ordered. States that the back of her head feels heavy .Informed Dr Ryder via [employer]. * Yue Rosa RCP - 12/19/2018 5:16 PM EDT Jannie Barrett Respiratory Therapy Evaluation Current Order: PRN Home Regimen: PRN Ordering Physician: LUZMARIA Re-evaluation Date: N/A Diagnosis: CELLULITIS Patient Status: Stable / Unstable + Physician notified The following MDI Criteria must be met in order to convert aerosol to MDI with spacer. If unable tomeet, MDI will be converted to aerosol: [] Patient able to demonstrate the ability to use MDI effectively [] Patient alert and cooperative [] Patient able to take deep breath with 5-10 second hold [] Medication(s) available in this delivery method [] Peak flow greater than or equal to 200 ml/min Current Order Substituted To (same drug, same frequency) Aerosol to MDI [] Albuterol Sulfate 0.083% unit dose by aerosol Albuterol Sulfate MDI 2 puffs by inhalation with spacer [] Levalbuterol 1.25 mg unit dose by aerosol Levalbuterol MDI 2 puffs by inhalation with spacer [] Levalbuterol 0.63 mg unit dose by aerosol Levalbuterol MDI 2 puffs by inhalation with spacer [] Ipratropium Hecla 0.02% unit dose by aerosol Ipratropium [place] MDI 2 puffs by inhalation with spacer [] Duoneb (Ipratropium + Albuterol) unit dose by aerosol Ipratropium MDI + Albuterol MDI 2 puffs byinhalation w/spacer MDI to Aerosol [] Albuterol Sulfate MDI Albuterol Sulfate 0.083% unit dose by aerosol [] Levalbuterol MDI 2 puffs by inhalation Levalbuterol 1.25 mg unit dose by aerosol [] Ipratropium Hecla MDI by inhalation Ipratropium [place] 0.02% unit dose by aerosol [] Combivent (Ipratropium + Albuterol) MDI by inhalation Duoneb (Ipratropium + Albuterol) unit doseby aerosol Treatment Assessment [Frequency/Schedule]: Change frequency to: Q4PRN per Protocol, P&T, [facility] Points 0 1 2 3 4 Pulmonary Status Non-Smoker [x] Smoking history < 20 pack years [] Smoking history ? 20 pack years [] Pulmonary Disorder (acute or chronic) [] Severe or Chronic w/ Exacerbation [] Surgical Status No [x] Surgeries General [] Surgery Lower [] Abdominal Thoracic or [] Upper Abdominal Thoracic with PulmonaryDisorder [] Chest X-ray Clear/Not Ordered [x] Chronic Changes Results Pending [] Infiltrates, atelectasis, pleural effusion, or edema [] Infiltrates in more thanone lobe [] Infiltrate + Atelectasis, &/or pleural effusion [] Respiratory Pattern Regular, RR = 12-20 [x] Increased, RR = 21-25 [] LANDIS, irregular, or RR = 26-30 [] Decreased FEV1 or RR = 31-35 [] Severe SOB, use of accessory muscles, or RR ? 35 [] Mental Status Alert, oriented, Cooperative [x] Confused but Follows commands [] Lethargic or unable to follow commands [] Obtunded[] Comatose [] Breath Sounds Clear to auscultation [] Decreased unilaterally or in bases only [x] Decreased bilaterally [] Crackles or intermittent wheezes [] Wheezes [] Cough Strong, Spontan., & nonproductive [x] Strong, spontaneous, & productive [] Weak, Nonproductive [] Weak, productive or with wheezes [] No spontaneous cough or may require suctioning [] Level of Activity Ambulatory [] Ambulatory w/ Assist [x] Non-ambulatory [] Paraplegic [] Quadriplegic [] Total Score:___2____ Triage Score:___5 Tri Triage: 1. (>20) Freq: Q3 2. (16-20) Freq: Q4 3. (11-15) Freq: QID & Albuterol Q2 PRN 4. (6-10) Freq: TID & Albuterol Q2 PRN 5. (0-5) Freq Q4prn * Jaja Ryder MD - 12/19/2018 2:33 PM EDT Department of Internal Medicine Progress Note SUBJECTIVE: complains of pain over left leg No acute events overnight. ROS: All 12 systems reviewed and negative except mentioned in HPI and Assessment and plan MEDICATIONS: Current Facility-Administered Medications Medication Dose Route Frequency Provider Last Rate Last Dose sodium chloride flush 0.9 % injection 10 mL 10 mL Intravenous 2 times per day Nellie Pentito, 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 10 mL at 12/19/18 0809 sodium chloride flush 0.9 % injection 10 mL 10 mL Intravenous PRN Nellie Pentito, 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 10 mL at 12/19/18 0647 magnesium hydroxide (MILK OF MAGNESIA) 400 MG/5ML suspension 30 mL 30 mL Oral Daily PRN Nellie Pentito, 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 ondansetron (ZOFRAN) injection 4 mg 4 mg Intravenous Q6H PRN Nellie Pentito, 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 enoxaparin (LOVENOX) injection 40 mg 40 mg Subcutaneous Daily Nellie Pentito, 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 40 mg at 12/19/18 0809 0.9 % sodium chloride infusion Intravenous Continuous Nellie Pentito, 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 100 mL/hr at 12/19/18 0428 acetaminophen (TYLENOL) tablet 650 mg 650 mg Oral Q4H PRN Nellie Pentito, 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 ketorolac (TORADOL) injection 15 mg 15 mg Intravenous Q6H PRN Nellie Pentito, 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 15 mg at 12/19/18 1337 famotidine (PEPCID) tablet 20 mg 20 mg Oral BID Nellie Pentito, 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 20 mg at 12/19/18 0808 miconazole (MICOTIN) 2 % powder Topical TID Nellie Pentito, 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 ampicillin (OMNIPEN) 2 g in sodium chloride 0.9 % 100 mL IVPB 2 g Intravenous 4 times per day Cruz Schwartz MD OBJECTIVE: Vital Signs: Vitals: 12/19/18 0807 BP: Pulse: Resp: Temp: 98.8 F (37.1 C) SpO2: Focal exam: Redness and tenderness over lower abdominal wall General Exam (except as mentioned above): CONSTITUTIONAL: Awake, alert, no apparent distress EYES: PERRL, conjunctiva normal ENT: Normocephalic, atraumatic NECK: Supple BACK: Symmetric LUNGS: CTAB except bilateral basilar crackles. CARDIOVASCULAR: S1S2 present ABDOMEN: soft, non-distended, non-tender MUSCULOSKELETAL: There is no redness, warmth, or swelling of the joints. NEUROLOGIC: Alert, awake, oriented x 3. No FND EXTREMITIES: Warm and well perfused. LABS Recent Labs 12/18/18224412/19/18611 WBC 16.1* 11.4* RBC 5.12 4.45 HGB 11.9* 10.5* HCT 37.1 32.2* MCV 72.5* 72.3* MCH 23.4* 23.7* MCHC 32.2* 32.8* RDW 19.3* 19.1* PLT 248 226 Recent Labs 12/18/18224412/19/18611 NA 136 138 K 3.8 3.8 CL 97 103 CO2 22 23 BUN 12 13 CREATININE 0.96* 0.90 GLUCOSE 149* 124* CALCIUM 8.9 8.2* No results for input(s): MG in the last 72 hours. ASSESSMENT AND PLAN Active Hospital Problems Diagnosis Date Noted Leg pain, left [M79.605] 02/21/2016 Priority: High Cellulitis [L03.90] 12/19/2018 Lactic acid acidosis [E87.2] 12/19/2018 Skin ulcer, limited to breakdown of skin (HCC) [L98.491] 12/19/2018 Hypertension [I10] Morbid obesity due to excess calories (HCC) [E66.01] 02/21/2016 Diabetes (HCC) [E11.9] 02/18/2016 - Left lower extremity pain and swelling: US ruled out DVT. Stasis dermatitis - abdominal pannus: On Ampicillin. Blood cultures pending - Hypertension: Continue home meds - DVT prophylaxis: Lovenox Jaja Ryder MD Pager : [phone] * Karen Smith RD, LD - 12/19/2018 11:38 AM EDT Nutrition Assessment (Low Risk) Type and Reason for Visit: Initial, Positive Nutrition Screen(wounds) Nutrition Recommendations: Continue Carb Control 3, Low fat diet. Start wound healing ONS (NELSON) BID Nutrition Assessment: Pt adequately nourished on admission, at risk for nutrition compromise due toincreased nutrient needs for wound healing. Will start a wound healing nutrition supplement. Pt states she has initiated weight loss counseling with RDN in [place], denies any education needs at this time. Malnutrition Assessment: Malnutrition Status: No malnutrition Nutrition Risk Level ? Risk Level: Low Nutrition Diagnosis: Problem: Increased nutrient needs Etiology: Increased demand for energy/nutrients ? Signs and symptoms: Presence of wounds Nutrition Intervention: Food and/or Delivery: Continue current diet, Start ONS Nutrition Education/Counseling/Coordination of Care: Continued Inpatient Monitoring, Education Not Indicated(Pt recieves wt loss counseling with RDN in [place]) * Riana Greene RN - 12/19/2018 11:00 AM EDT Wound Ostomy Continence Nurse Consult Note NAME: Lisa LombardoEvelineon AGE: 38 y.o. GENDER: female : 1980 TODAY'S DATE: 12/19/2018 Subjective Reason for WOC Nurse Evaluation and Assessment: Abdominal fold redness/ Moisture Associated Skin Damage with fungal involvement, cellulitis and denudation of skin Lisa LombardoEvelineon is a 38 y.o. female referred by: [] Physician [x] Nursing [] Other: Wound Identification: Wound Type: MASD with fungal involvement, cellulitis and denudation of skin Contributing Factors: diabetes, decreased mobility, obesity and recurrent ABD cellulitis Wound History: Patient has had recurrent ABD cellulitis and presents with MASD to the abdominal pannus with fungal rash and denudation of skin Current Wound Care Treatment: Recommending: continue with antifungal powder, and will also add to separate skin folds with pillow or other textile cloth Patient Goal of Care: [x] Wound Healing [] Odor Control [] Palliative Care [] Pain Control [] Other: PAST MEDICAL HISTORY Diagnosis Date Anemia Anxiety Bipolar 1 disorder (HCC) Cellulitis bilateral legs Diabetes mellitus (HCC) DVT (deep venous thrombosis) ([facility]) 2014 Hypertension Migraine Obesity 01/07/2017 BMI 67.5 PE (pulmonary thromboembolism) ([facility]) 2014 PAST SURGICAL HISTORY Past Surgical History: Procedure Laterality Date SECTION CHOLECYSTECTOMY TONSILLECTOMY FAMILY HISTORY Family History Problem Relation Age of Onset Stroke Mother Diabetes Father Hypertension Father High Cholesterol Father SOCIAL HISTORY Social History Tobacco Use Smoking status: Never Smoker Smokeless tobacco: Never Used Substance Use Topics Alcohol use: No Drug use: No ALLERGIES Allergies Allergen Reactions Darvon [Propoxyphene] Hives MEDICATIONS No current facility-administered medications on file prior to encounter. Current Outpatient Medications on File Prior to Encounter Medication Sig Dispense Refill metoprolol tartrate (LOPRESSOR) 25 MG tablet take 1 tablet by mouth twice a day 0 diclofenac sodium 1 % GEL Apply 2 g topically 4 times daily 2 Tube 1 potassium chloride (KLOR-CON M) 20 MEQ TBCR extended release tablet Take 20 mEq by mouth daily (with breakfast) furosemide (LASIX) 40 MG tablet Take 40 mg by mouth daily sertraline (ZOLOFT) 50 MG tablet Take 1 tablet by mouth daily 30 tablet 5 OXcarbazepine (TRILEPTAL) 300 MG tablet Take 300 mg by mouth every evening At bedtime albuterol sulfate HFA (PROVENTIL HFA) 108 (90 Base) MCG/ACT inhaler Inhale 2 puffs into the lungs every 6 hours as needed for Wheezing or Shortness of Breath (Space out to every 6 hours as symptoms improve) Space out to every 6 hours as symptoms improve. 1 Inhaler 0 pantoprazole (PROTONIX) 40 MG tablet Take 1 tablet by mouth every morning (before breakfast) 30 tablet 3 ondansetron (ZOFRAN ODT) 4 MG disintegrating tablet Take 1 tablet by mouth every 8 hours as needed for Nausea 10 tablet 0 albuterol (PROVENTIL) (2.5 MG/3ML) 0.083% nebulizer solution Take 3 mLs by nebulization every 6 hours as needed for Wheezing 120 each 3 docusate sodium (COLACE) 100 MG capsule Take 1 capsule by mouth daily as needed for Constipation 30capsule 3 ALPRAZolam (XANAX) 1 MG tablet Take 1 mg by mouth 2 times daily as needed. . apixaban (ELIQUIS) 5 MG TABS tablet Take 5 mg by mouth 2 times daily amLODIPine (NORVASC) 5 MG tablet Take 1 tablet by mouth daily 30 tablet 2 Objective BP (!) 118/53 Comment: Notified RN Pulse 98 Temp 98.8 F (37.1 C) (Oral) Resp 18 Ht 5' 9 (1.753 m) Wt (!) 475 lb 12 oz (215.8 kg) SpO2 98% BMI 70.26 kg/m LABS: WBC: Lab Results Component Value Date WBC 11.4 12/19/2018 H/H: Lab Results Component Value Date HGB 10.5 12/19/2018 HCT 32.2 12/19/2018 PTT: Lab Results Component Value Date APTT 49.9 05/25/2015 [APTT} PT/INR: Lab Results Component Value Date PROTIME 10.6 12/25/2016 INR 1.0 12/25/2016 HgBA1c: Lab Results Component Value Date LABA1C 5.8 07/21/2018 Assessment Sina Risk Score: Sina Scale Score: 19 Patient Active Problem List Diagnosis Cellulitis and abscess of leg Sepsis (HCC) Diabetes (HCC) Morbid obesity due to excess calories (HCC) Leg pain, left Umbilical hernia Ruptured varicosity Iron deficiency anemia Anticoagulated Acute cystitis with hematuria-Klebsiella oxytoca Gait abnormality DVT (deep vein thrombosis) in (HCC) PE (pulmonary thromboembolism) (HCC) Hypertension Migraine Cellulitis Lactic acid acidosis Skin ulcer, limited to breakdown of skin (HCC) Plan Plan of Care: Recommending: continue with antifungal powder, and will also add to separate skin folds with pillow or other textile cloth Specialty Bed Required : N/A [] Low Air Loss [] Pressure Redistribution [] Fluid Immersion [] Bariatric [] Other: Current Diet: DIET LOW FAT; Carb Control: 3 carb choices (45 gms)/meal Portable Grinding Machine Operator consult: N/A Discharge Plan: Placement for patient upon discharge: home with support Patient appropriate for Outpatient Wound Care Center: N/A Referrals: [] [employer] [] Home Health Care [] Supplies [] Other Patient/Caregiver Teaching: Level of patient/caregiver understanding able to: [] Indicates understanding [] Needs reinforcement [] Unsuccessful [] Verbal Understanding [] Demonstrated understanding [] No evidence of learning [] Refused teaching [x] N/A * Sheree Kerns RN - 12/19/2018 8:44 AM EDT Assessment completed this shift.Alert and oriented x4. Denies nausea. Lower abdomen and abdominal fold reddened. C/o headache and abdominal pain 12/16. Perfect Serv to Dr Ryder to inform that Toradol was not effective.Awaiting reply. Pt reports having slight weakness in legs. Instructed her to call for assistance. Falls precautions implemented. Electronically signed by Sheree Kerns RNon 12/19/2018 at 8:50 AM * Irvin Figueredo RN - 12/19/2018 6:34 AM EDT [facility] faxed over information on patient. They are located in the blue chart on the top. * Quynh Astudillo RN - 12/19/2018 4:52 AM EDT Pt transferred to room [facility] via wheelchair and ER transporter. Pt alert and oriented. She lives at home with spouse and child, who the pt stated assist with her care. VS stable, no fever noted. Pt stated occasionally feeling lightheaded prior to admission and was encouraged to call for assistance should she need to get out of bed. Upon assessment this nurse noted redness throughout lower abdomen and excoriation of the left groin. Area cleansed and Micotin powder applied. Pt oriented to room, given call light and bed in lowest position. Will continue to monitor. * Irvin Figueredo RN - 12/19/2018 4:28 AM EDT [facility] made aware of order to obtain records from [facility], consent signed by patient to obtain records. * Morena Pozo RPH - 12/19/2018 3:51 AM EDT Pharmacy Note Vancomycin Consult Lisa Mcdaniels is a 38 y.o. female started on Vancomycin for cellulitis; consult received from RUSS Bear CNP to manage therapy. Also receiving the following antibiotics: Zosyn. Patient Active Problem List Diagnosis Cellulitis and abscess of leg Sepsis (HCC) Diabetes (HCC) Morbid obesity due to excess calories (HCC) Leg pain, left Umbilical hernia Ruptured varicosity Iron deficiency anemia Anticoagulated Acute cystitis with hematuria-Klebsiella oxytoca Gait abnormality DVT (deep vein thrombosis) in (HCC) PE (pulmonary thromboembolism) (HCC) Hypertension Migraine Cellulitis Allergies: Darvon [propoxyphene] Temp max: 102.7 *F Recent Labs 12/18/18 2245 BUN 12 Recent Labs 12/18/18 2245 CREATININE 0.96* Recent Labs 12/18/18 2245 WBC 16.1* No intake or output data in the 24 hours ending 12/19/18 0348 Culture Date Source Results 12/18/18 Blood x2, urine Pending Ht Readings from Last 1 Encounters: 12/18/18 5' 9 (1.753 m) Wt Readings from Last 1 Encounters: 12/18/18 (!) 496 lb (225 kg) Body mass index is 73.25 kg/m . Estimated Creatinine Clearance: 163 mL/min (A) (based on SCr of 0.96 mg/dL (H)). Assessment/Plan: TBW: 225 kg IBW: 66.2 kg ABW: 129.7 kg Will initiate vancomycin 2,000 mg (15 mg/kg per ABW) IV every 12 hours. Vancomycin 1,000mg IV givenin ED 12/18/18 at 2239. Initial trough scheduled for prior to the 4th dose on 12/20/18 at approx 1130. Timing of future trough levels will be determined based on culture results, renal function, and clinical response. Thank you for the consult. Will continue to follow. documented in this encounter* Claus Velazquez MD - 04/29/2020 3:42 PM EST Today's Date: 04/29/2020 Patient Name: Lisa Mcdaniels Date of admission: 04/21/2020 12:10 PM Patient's age: 39 y.o., 1980 Admission Dx: Septic shock (HCC) [A41.9, R65.21] Reason for Consult: management recommendations Requesting Physician: Jesús Nguyen MD CHIEF COMPLAINT: Lytic bone lesion SUBJECTIVE: Patient seen and examined I reviewed the results of bone biopsy with patient Overall this appears nondiagnostic She may need open bone biopsy or referral to tertiary care She denies any fever chills No nausea vomiting. BRIEF CASE HISTORY: The patient is a 39 y.o. female who is admitted to the hospital for hip pain. The patient was recently treated for CO VID and after recovery, she was in a penitentiary and then was discharged home. She started having severe pain in the right hip area. She was admitted to the hospital and imaging study showed lytic lesion destroying the right ischium with some soft tissue component. There was suspicion of an infection so she was diagnosed with septic shock and was managed conservatively, orthopedic surgery and infectious disease were consulted and the suspicion is for a tumor inher pelvis. For that we are consulted to see the patient. The patient is seen and evaluated. She understand the finding. Biopsy was ordered for the bone lesion She is complaining of severe pain in her hip. She is morbidly obese and has been bed bound lately. Past Medical History: has a past medical history of MARCIE (acute kidney injury) ([facility]), Anemia, Anxiety, Bipolar 1 disorder ([facility]), Cellulitis, COVID-19, Diabetes mellitus ([facility]), DVT (deep venous thrombosis) ([facility]), Hypertension, Migraine, Obesity, PE (pulmonary thromboembolism) ([facility]), and Pelvis fracture ([facility]). Past Surgical History: has a past surgical history that includes Cholecystectomy; Tonsillectomy; section; picc powerpic triple (04/21/2020); and IR BIOPSY SUPERFICIAL BONE (04/25/2020). Medications: Reviewed in [facility] Allergies: Penicillins and Darvon [propoxyphene] Social History: reports that she has never smoked. She has never used smokeless tobacco. She reports that she does not drink alcohol or use drugs. Family History: family history includes Diabetes in her father; High Cholesterol in her father; Hypertension in her father; Stroke in her mother. REVIEW OF SYSTEMS: Constitutional: Progressive fatigue, weight gain. Eyes: No eye discharge, double vision, or eye pain HEENT: negative for sore mouth, sore throat, hoarseness and voice change Respiratory: Shortness of breath and cough Cardiovascular: negative for chest pain, dyspnea, palpitations, orthopnea, PND Gastrointestinal: negative for nausea, vomiting, diarrhea, constipation, abdominal pain, Dysphagia,hematemesis and hematochezia Genitourinary: negative for frequency, dysuria, nocturia, urinary incontinence, and hematuria Integument: negative for rash, skin lesions, bruises. Hematologic/Lymphatic: negative for easy bruising, bleeding, lymphadenopathy, or petechiae Endocrine: negative for heat or cold intolerance,weight changes, change in bowel habits and hair loss Musculoskeletal: Hip and pelvic pain as discussed. Neurological: negative for headaches, dizziness, seizures, weakness, numbness PHYSICAL EXAM: BP 130/70 Pulse 80 Temp 97.7 F (36.5 C) (Oral) Resp 19 Ht 5' 9 (1.753 m) Wt (!) 415 lb (188.2 kg) SpO2 98% BMI 61.28 kg/m Temp (24hrs), Av.7 F (36.5 C), Min:97.2 F (36.2 C), Max:98.2 F (36.8 C) General appearance -appearing morbidly obese lady Mental status - alert and cooperative Eyes - pupils equal and reactive, extraocular eye movements intact Ears - bilateral TM's and external ear canals normal Mouth - mucous membranes moist, pharynx normal without lesions Neck - supple, no significant adenopathy Lymphatics - no palpable lymphadenopathy, no hepatosplenomegaly Chest - clear to auscultation, decreased air entry bilaterally Heart - normal rate, regular rhythm, normal S1, S2, no murmurs Abdomen -large pannus and mild cellulitis. Soft, nontender, nondistended, no masses or organomegaly Neurological - alert, oriented, normal speech, no focal findings or movement disorder noted Musculoskeletal -severe pain and tenderness in the right hip and pelvis Extremities - peripheral pulses normal, no pedal edema, no clubbing or cyanosis Skin - normal coloration and turgor, no rashes, no suspicious skin lesions noted , DATA: Labs: CBC: Recent Labs 04/27/20 0713 WBC 9.0 HGB 9.4* HCT 30.4* PLT See Reflexed IPF Result BMP: Recent Labs 04/28/20 0601 04/29/20 0501 NA 138 138 K 4.6 4.8 CO2 23 22 BUN 13 11 CREATININE 0.63 0.58 LABGLOM >60 >60 GLUCOSE 90 90 PT/INR: No results for input(s): PROTIME, INR in the last 72 hours. Surgical Pathology Report Surgical Pathology Collected: 04/25/20 1533 Lab status: Final Resulting lab: Paice Value: -- Diagnosis -- BONE, RIGHT ISCHIUM, IMAGE GUIDED BONE BIOPSY: - BONE AND MARROW NECROSIS WITH GRANULATION TISSUE AND BONE REMODELING. - SPECIAL STAINS APPEAR NEGATIVE FOR MICROORGANISMS (BACTERIAL, FUNGAL OR MYCOBACTERIAL). - PANKERATIN IMMUNOSTAIN IS NEGATIVE FOR METASTATIC CARCINOMA. - SEE COMMENT. -- Diagnosis Comment -- THERE IS NO EVIDENCE OF MALIGNANCY IN THE SECTIONS, HOWEVER THERE IS ALSO NO EVIDENCE OF AN IDENTIFIABLE INFECTIOUS ETIOLOGY. CONSIDERATION FOR A SURGICAL INCISIONAL BIOPSY AT A FUTURE DATE (BOTH FOR ROUTINE HISTOLOGY WELL TISSUE MICROBIOLOGICAL CULTURE) MAY BE FURTHER CONTRIBUTORY, IF THE PATIENT FAILS TO RESPOND TO CONSERVATIVE THERAPY. IMAGING DATA: Reviewed Primary Problem Septic shock (HCC) Active Hospital Problems Diagnosis Date Noted Pelvic fracture ([facility]) [S32.9XXA] 02/05/2020 Morbid obesity due to excess calories ([facility]) [E66.01] 02/21/2016 Diabetes (HCC) [E11.9] 02/18/2016 IMPRESSION: 1. Lytic bone lesion 2. Pathological fracture 3. Morbid obesity 4. MARCIE 5. Recent CO VID RECOMMENDATIONS: 1. Bone biopsy results were discussed with patient. This appears nondiagnostic and she may need open bone biopsy 2. Overall suspicious for malignancy is very high based on the imaging studies 3. Myeloma panel was negative 4. Likely will be discharged soon 5. Open biopsy can be arranged as outpatient. She also may benefit from referral to orthopedic oncology at [facility] 6. Patient will follow with Dr. Lang as outpatient in 2 weeks Discussed with patient and Nurse. Claus Velazquez MD Special Education Supervisor/Medical Oncologist This note is created with the assistance of a speech recognition program. While intending to generate a document that actually reflects the content of the visit, the document can still have some errors including those of syntax and sound a like substitutions which may escape proof reading. It such instances, actual meaning can be extrapolated by contextual diversion. * Smith Diaz MD - 04/29/2020 3:40 PM EST [facility] - Infectious diseases evaluation admission date 04/21/2020 reason for consultation: covid + Impression : Current: Remote Covid, persistent positive test, + AB, no clinical covid illness, isolation removed Septic shock - resolved CRP elevation Acute renal failure improving Hyperkalemia elevated CPK Morbid obesity R ischial bone lytic lesions and a soft tissue mass Right hip pathological fracture 01/2020. No sx, ambulating Allergy severe to PNC swelling and SOB tolerated cefepime 04/25 SCN bacteremia contamination U cx Enterococcus faecalis & MSSA, presumed UTI, BC neg Discussion / summary of stay / plan of care Recommendations U cx Enterococcus faecalis & MSSA, presumed UTI Stopped vancomycin and cefepime 04/24 Switch AB back to ceftriaxone 2 g daily x4 weeks, until 05/26/2004/28 echo completed - no obvious vegetations, get MIRYAM when indicated Lytic ischial lesions - IR to biopsy for cx and path, necrotic tissue, no atypical cells cx [negative] Bone scan - suspicious of metastatic disease rather than infectious disease, renal cell, breast or thyroid are suggested by reading Get oncology to [facility] appropriately Get bone scan outpatient to look for improvement Reconciled. Ok to DC F/u in clinic in 4 weeks Infection Control Recommendations Zebulon Precautions Antimicrobial Stewardship Recommendations Simplification of therapy Targeted therapy IV to oral conversion Per Kg dosing Coordination ofOutpatient Care: Estimated Length of IV antimicrobials: Patient will need Midline / picc Catheter Insertion: Patient will need SNF: Patient will need outpatient wound care: History of Present Illness: Initial history: Lisa Mcdaniels is a 39 y.o.-year-old female history of Covid in November and needed oxygen at thetime Fracture of the right pelvis after a fall in January, treated conservatively and sent to the SNF and left Home improved 04/18 - arriving home Could not walk the steps and sat down x 2 days before she got attention. this was due to pain of the right hip - presented w headache nausea to the emergency room, was tachycardic hypotensive needing oxygen and pressors. ARF and elevated CK and K. Per report the patient was tested Covid positive - covid AB + as well Procalcitonin 1.5 and white count of 16, creatinine elevated 6 and CRP 19 She was also noticed to have a potassium of 7 Chest x-ray bilateral hazy infiltrates CT of the pelvis only shows lytic bone lesions of the right ischium along with soft tissue mass with nonspecific groundglass opacities bilateral lungs The patient was admitted with septic shock started on Levophed, but due to the positive Covid she was admitted to the Covid unit 04/22 creat better - K better - off pressures No cellulitis Leiva from [facility] was removed - urine seemed cloudy w sediments but she denies dysuria and UAwas contaminated initially, then repeat shows no UTI signs. Interval changes 04/29/2020 Patient Vitals for the past 8 hrs: BP Temp Temp src Pulse Resp SpO2 04/29/20 1230 130/70 97.7 F (36.5 C) Oral 80 19 98 % 04/29/20 0822 139/74 97.2 F (36.2 C) Oral 76 99 % No acute events overnight. States hip pain continues to improve. Remains afebrile. Tissue culture negative so far. Planning DC to SNF. Pathology showing no evidence of malignancy and no evidence of infection. Consider surgical incisional biopsy in future for further work up. bone scan is concerning for metastasis more than infection Oncology consulted, pending Summary of relevant labs: Labs: WBC 12 - 8.5 - 8.2 - 7.6 - 7 - 8.7 Procal 1.71 Creat 2.57 - 1.86 - 1.42 CRP 237.5 - 72.4 - 29 Fibrinogen 605 CEA: 2.2 Ca 19-9: 14 AFP: 4.8 CA 125: 22 CA 27.29 : 21 kappa / lambda nl Micro: Urine cx 04/21 +Enterococcus faecalis & MSSA Blood cx / neg Blood cx 04/25 +Staph epidermidis in 1/2, represents contaminant Bone bx 04/25 cx negative Path report pending THERE IS NO EVIDENCE OF MALIGNANCY IN THE SECTIONS, HOWEVER THERE IS ALSO NO EVIDENCE OF AN IDENTIFIABLE INFECTIOUS ETIOLOGY. CONSIDERATION FOR A SURGICAL INCISIONAL BIOPSY AT A FUTURE DATE (BOTH FOR ROUTINE HISTOLOGY WELL TISSUE MICROBIOLOGICAL CULTURE) MAY BE FURTHER CONTRIBUTORY, IF THE PATIENT FAILS TO RESPOND TO CONSERVATIVE THERAPY. ImaginD Echo: No obvious vegetation on this study, consider MIRYAM when indicated. Bone scan 04/25 - Heterogeneous uptake of radiotracer in the right ischial bone where the patient has an expansile lytic lesion. No abnormal increased activity. Decreased radiotracer uptake may be related to rapid bone turnover. Findings suspicious for metastatic disease rather than infection. Renal cell carcinoma, thyroid carcinoma and breast carcinoma would be likely etiology in the event of metastatic etiology. 4. Favor neoplastic bony destructive process over infectious process. Renal US no renal mass CT Hip/Pelvis - 04/24 Aggressive osseous destruction and fragmented ossific densities and ossific debris with destruction of the right ischial tuberosity extending to the posterior column of the right acetabulum. Differential consideration includes destructive metastatic lesion with surrounding soft tissue mass with superinfection not excluded versus a combination of osteomyelitis and surrounding phlegmonous changes. However, there is no ulceration extending to this region making primary infection less likely. Destructive metastatic lesion and/or pathological fracture/osseous destruction is suspected. Pelvis xray 04/23: Diastasis left SI joint suggested fracture of the right inferior pubic ramus possible of pathologic fracture cannot be excluded, further evaluation with CT of the pelvis is recommended Renal US 04/[address] of the pelvis only shows lytic bone lesions of the right ischium along with soft tissue mass with nonspecific groundglass opacities bilateral lungs I have personally reviewed the past medical history, past surgical history, medications, social history, and family history, and I haveupdated the database accordingly. Allergies: Penicillins and Darvon [propoxyphene] Review of Systems: Review of Systems Constitutional: Positive for activity change. Negative for appetite change, chills and fever. HENT: Negative for congestion. Eyes: Negative for discharge. Respiratory: Negative for apnea and cough. Cardiovascular: Negative for chest pain. Gastrointestinal: Negative for abdominal pain and nausea. Endocrine: Negative for heat intolerance. Genitourinary: Negative for dysuria. Musculoskeletal: Positive for arthralgias. Skin: Negative for color change. Allergic/Immunologic: Negative for immunocompromised state. Neurological: Negative for headaches. Hematological: Negative for adenopathy. Psychiatric/Behavioral: Negative for agitation. Physical Examination : Physical Exam Constitutional: Appearance: Normal appearance. She is obese. She is not ill-appearing or diaphoretic. HENT: Head: Normocephalic and atraumatic. Nose: No congestion or rhinorrhea. Comments: Nasal canula Mouth/Throat: Mouth: Mucous membranes are moist. Eyes: Conjunctiva/sclera: Conjunctivae normal. Neck: Musculoskeletal: Neck supple. No muscular tenderness. Cardiovascular: Rate and Rhythm: Normal rate and regular rhythm. Heart sounds: Normal heart sounds. No murmur. Pulmonary: Effort: No respiratory distress. Breath sounds: Normal breath sounds. Abdominal: Palpations: Abdomen is soft. Tenderness: There is no abdominal tenderness. There is no guarding. Genitourinary: Comments: Urine kelly Musculoskeletal: General: No swelling or deformity. Skin: General: Skin is dry. Coloration: Skin is not jaundiced. Neurological: Mental Status: She is oriented to person, place, and time. Mental status is at baseline. Cranial Nerves: No cranial nerve deficit. Psychiatric: Mood and Affect: Mood normal. Thought Content: Thought content normal. Past Medical History: Past Medical History: Diagnosis Date MARCIE (acute kidney injury) ([facility]) 04/21/2020 Anemia Anxiety Bipolar 1 disorder ([facility]) Cellulitis bilateral legs COVID-19 11/2019 Diabetes mellitus ([facility]) DVT (deep venous thrombosis) ([facility]) 2014 Hypertension Migraine Obesity 01/07/2017 BMI 67.5 PE (pulmonary thromboembolism) ([facility]) 2014 Pelvis fracture ([facility]) 01/2020 Past Surgical History: Past Surgical History: Procedure Laterality Date SECTION CHOLECYSTECTOMY HC PICC POWERPIC TRIPLE 04/21/2020 IR BIOPSY BONE NEEDLE SUPERFCL 04/25/2020 IR BIOPSY BONE NEEDLE SUPERFCL 04/25/2020 Steph Veliz MD [facility] SPECIAL PROCEDURES TONSILLECTOMY Medications: miconazole Topical BID cefTRIAXone (ROCEPHIN) IV 2 g Intravenous Q24H oxyCODONE-acetaminophen 1 tablet Oral Once [Held by provider] amLODIPine 5 mg Oral Daily megestrol 40 mg Oral Daily [Held by provider] metoprolol tartrate 25 mg Oral BID OXcarbazepine 300 mg Oral QPM pantoprazole 40 mg Oral QAM AC sertraline 50 mg Oral Daily Vitamin D 6,000 Units Oral Daily sodium chloride flush 10 mL Intravenous 2 times per day insulin lispro 0-12 Units Subcutaneous TID WC insulin lispro 0-6 Units Subcutaneous Nightly heparin (porcine) 10,000 Units Subcutaneous 3 times per day Social History: Social History Socioeconomic History Marital status: Spouse name: steph Number of children: 1 Years of education: Not on file Highest education level: Not on file Occupational History Not on file Social Needs Financial resource strain: Not on file Food insecurity Worry: Not on file Inability: Not on file Transportation needs Medical: Not on file Non-medical: Not on file Tobacco Use Smoking status: Never Smoker Smokeless tobacco: Never Used Substance and Sexual Activity Alcohol use: No Drug use: No Sexual activity: Not on file Lifestyle Physical activity Days per week: Not on file Minutes per session: Not on file Stress: Not on file Relationships Social connections Talks on phone: Not on file Gets together: Not on file Attends episcopal service: Not on file Active member of club or organization: Not on file Attends meetings of clubs or organizations: Not on file Relationship status: Not on file Intimate partner violence Fear of current or ex partner: Not on file Emotionally abused: Not on file Physically abused: Not on file Forced sexual activity: Not on file Other Topics Concern Not on file Social History Narrative Lives With: Spouse Type of Home: House--Home Layout: One level Home Access: Stairs to enter without rails--Entrance Stairs - Number of Steps: 2 Bathroom Shower/Tub: Walk-in shower Bathroom Equipment: (no AD) Home Equipment: (no AD) ADL Assistance: Independent Homemaking Assistance: Independent Ambulation Assistance: Independent Transfer Assistance: Independent Active Stove Refinisher: Yes Lives w family Family History: Family History Problem Relation Age of Onset Stroke Mother Diabetes Father Hypertension Father High Cholesterol Father Medical Decision Making: I have independently reviewed/ordered the following labs: CBC with Differential: Recent Labs 04/27/20 0713 WBC 9.0 HGB 9.4* HCT 30.4* PLT See Reflexed IPF Result BMP: Recent Labs 04/28/20 0601 04/29/20 0501 NA 138 138 K 4.6 4.8 CL 108* 107 CO2 23 22 BUN 13 11 CREATININE 0.63 0.58 Hepatic Function Panel: No results for input(s): PROT, LABALBU, BILIDIR, IBILI, BILITOT, ALKPHOS, ALT, AST in the last 72 hours. No results for input(s): RPR in the last 72 hours. No results for input(s): HIV in the last 72 hours. No results for input(s): BC in the last 72 hours. Lab Results Component Value Date CREATININE 0.58 04/29/2020 GLUCOSE 90 04/29/2020 Detailed results: Thank you for allowing us to participate in the care of this patient.Please call with questions. This note is created with the assistance of a speech recognition program. While intending to generate adocument that actually reflects the content of the visit, the document can still have some errors including those of syntax and sound a like substitutions which may escape proof reading. It such instances, actual meaningcan be extrapolated by contextual diversion. Randi Argueta Office: Perfect serve / office [phone] I have discussed the care of the patient, including pertinent history and exam findings, with the student. I have seen and examined the patient and the mays elements of all parts of the encounter havebeen performed by me. I agree with the assessment, plan and orders as documented by the student Smith Diaz, Infectious Diseases * Ad Ramos MD - 04/29/2020 12:06 PM EST Despite the fact that the biopsy does not report any infection or tumor the x- ray appearance is disturbing and it could be primary bone tumor. It would be best to have her seen by an orthopedic oncologist. I [facility] there [facility] should have consultation from somewhere [facility] or [facility]. * Lisa Thomas APRN - SRI - 04/29/2020 8:55 AM EST [facility] Office: [phone] Matthew Green DO, Niko Winn DO, Eli Lamb DO, Gabriel Cosme DO, Britney Hooper MD, Viviana Stern MD, Vanessa Yi MD, Kati Mcdaniel MD, Don Anderson MD, Rosalia Espinoza MD, MD Sharmaine, Dandy Go MD, Edson Jackson MD, Reji Houser DO, Trupti Martínez MD, Jhoana Nelson MD, Cristhian Mccoy DO, Salvador Kirby MD, Luci Garcia DO, Javy Minaya MD, MD Ana, Tatyana Velasquez, CARMELA, Radha Conde, CARMELA, Fallon Morrissey CNP, Penny Medina, SEUN,Andi James, DECK SUPERVISOR, Iraida Samson, DECK SUPERVISOR, Wendy Stephen, DECK SUPERVISOR, Kelly Wallace, DECK SUPERVISOR, Divine Porter, DECK SUPERVISOR, Ottoniel Lozano PA-C, Lisa Thomas, JULISSA, Zoraida Sue, DECK SUPERVISOR, Zuly Rowe, DECK SUPERVISOR, Marychuy Masterson, DECK SUPERVISOR, Joana Pichardo, DECK SUPERVISOR, Ebony Cole, DECK SUPERVISOR [facility] IN-PATIENT SERVICE [facility] Progress Note 04/29/2020 8:55 AM Name: Lisa Mcdaniels Acct: [id number] Room: [address] [place] [address] Day: 8 Admit Date: 04/21/2020 12:10 PM PCP: No primary care provider on file. Code Status: Full Code Subjective: C/C: hip pain Interval History Status: not changed Patient evaluated in room sitting in bed. Vitals are stable. Patient continues to endorse right hippain. Extensive work-up including possible metastatic disease accomplished, no malignancy identified. Ortho also following as well as infectious disease. Patient stable for discharge. Discussed with CM Brief History: Lisa Mcdaniels is a 39 y.o. F who was directly admitted from [facility] ED Apr 21 for the management of Septic shock (HCC). Pt tested + Covid in November and was treated with supplemental oxygen. On Feb 04 she fell and sustained a rt pelvic fracture. Pt was discharged to a SNF where she recently tested Neg for Covid. She left the facility Apr 18. Since dc pt has been unable to walk due to rt hip pain. She reports H/A, F/C and nausea. On presentation to the ED pt was tachycardic and hypotensive. She was tx with 2L Saline, Levophed, Ceftaroline, Clindamycin & Fentanyl. Pt reported covid + but there was no documentation sent to substantiate this. Patient cleared out of isolation precautions per infectious disease Levophed weaned R hip pain persistent- unable to complete MRI due to body habitus, ortho consulted Right hip lesion identified, biopsy completed likely metastatic disease Echo completed no vegetations noted Antibiotics continue for UTI Review of Systems: Constitutional: negative for chills, fevers, sweats Respiratory: negative for cough, dyspnea on exertion, shortness of breath, wheezing Cardiovascular: negative for chest pain, chest pressure/discomfort, lower extremity edema, palpitations Gastrointestinal: negative for abdominal pain, constipation, diarrhea, nausea, vomiting Neurological: negative for dizziness, headache Medications: Allergies: Allergies Allergen Reactions Penicillins Swelling tolerated cefepime 04/2020 Darvon [Propoxyphene] Hives Current Meds: Scheduled Meds: miconazole Topical BID cefTRIAXone (ROCEPHIN) IV 2 g Intravenous Q24H oxyCODONE-acetaminophen 1 tablet Oral Once [Held by provider] amLODIPine 5 mg Oral Daily megestrol 40 mg Oral Daily [Held by provider] metoprolol tartrate 25 mg Oral BID OXcarbazepine 300 mg Oral QPM pantoprazole 40 mg Oral QAM AC sertraline 50 mg Oral Daily Vitamin D 6,000 Units Oral Daily sodium chloride flush 10 mL Intravenous 2 times per day insulin lispro 0-12 Units Subcutaneous TID WC insulin lispro 0-6 Units Subcutaneous Nightly heparin (porcine) 10,000 Units Subcutaneous 3 times per day Continuous Infusions: dextrose PRN Meds: ALPRAZolam, glucose, dextrose, glucagon (rDNA), dextrose, albuterol, albuterol sulfate HFA, traMADol, HYDROcodone 5 mg - acetaminophen OR HYDROcodone 5 mg - acetaminophen, sodium chloride flush Data: Past Medical History: has a past medical history of MARCIE (acute kidney injury) ([facility]), Anemia, Anxiety, Bipolar 1 disorder ([facility]), Cellulitis, COVID-19, Diabetes mellitus ([facility]), DVT (deep venous thrombosis) ([facility]), Hypertension, Migraine, Obesity, PE (pulmonary thromboembolism) ([facility]), and Pelvis fracture ([facility]). Social History: reports that she has never smoked. She has never used smokeless tobacco. She reports that she does not drink alcohol or use drugs. Family History: Family History Problem Relation Age of Onset Stroke Mother Diabetes Father Hypertension Father High Cholesterol Father Vitals: BP 139/74 Pulse 76 Temp 97.2 F (36.2 C) (Oral) Resp 14 Ht 5' 9 (1.753 m) Wt (!) 415 lb (188.2 kg) SpO2 99% BMI 61.28 kg/m Temp (24hrs), Av.7 F (36.5 C), Min:97.2 F (36.2 C), Max:98.2 F (36.8 C) Recent Labs 04/28/20 1138 04/28/20 1601 04/28/20 2106 04/29/20 0816 POCGLU 112* 100 91 90 I/O (24Hr): Intake/Output Summary (Last 24 hours) at 04/29/2020 0855 Last data filed at 04/29/2020 0622 Gross per 24 hour Intake 1252.6 ml Output 1425 ml Net -172.4 ml Labs: Hematology: Recent Labs 04/27/20 0713 WBC 9.0 RBC 3.76* HGB 9.4* HCT 30.4* MCV 80.9* MCH 25.0* MCHC 30.9 RDW 19.7* PLT See Reflexed IPF Result MPV NOT REPORTED Chemistry: Recent Labs 04/27/20 0713 04/28/20 0601 04/29/20 0501 NA 137 138 138 K 5.1 4.6 4.8 CL 106 108* 107 CO2 21 23 22 GLUCOSE 86 90 90 BUN 13 13 11 CREATININE 0.65 0.63 0.58 ANIONGAP 10 7* 9 LABGLOM >60 >60 >60 GFRAA >60 >60 >60 CALCIUM 8.5* 9.0 9.2 Recent Labs 04/27/20 2015 04/28/20 0740 04/28/20 1138 04/28/20 1601 04/28/20 2106 04/29/20 0816 POCGLU 119* 87 112* 100 91 90 ABG:No results found for: POCPH, PHART, PH, POCPCO2, ZEN4HKT, PCO2, POCPO2, PO2ART, PO2, POCHCO3, HOE9AXL, HCO3, NBEA, PBEA, BEART, BE, THGBART, THB, PJE4SVS, TDRF0EGB, T5NBDKXE, O2SAT, FIO2 Lab Results Component Value Date/Time SPECIAL NOT REPORTED 04/25/2020 12:00 PM Lab Results Component Value Date/Time CULTURE NO GROWTH 3 DAYS 04/25/2020 12:00 PM Radiology: Us Renal Limited Result Date: 04/22/2020 Essentially unremarkable renal ultrasound Physical Examination: General appearance: alert, cooperative and no distress, withdrawal Mental Status: oriented to person, place and time and normal affect Lungs: clear to auscultation bilaterally, normal effort, diminished posteriorly secondary to body habitus Heart: regular rate and rhythm, no murmur Abdomen: Morbidly obese soft, nontender, nondistended, normal bowel sounds, no masses, hepatomegaly, splenomegaly Extremities: no edema, redness, tenderness in the calves, bilateral vascular discoloration Skin: no gross lesions, rashes, induration Assessment: Hospital Problems Last Modified POA Diabetes (HCC) (Chronic) 04/28/2020 Yes Morbid obesity due to excess calories (HCC) (Chronic) 04/28/2020 Yes Pelvic fracture (HCC) (Chronic) 04/28/2020 Yes Plan: 1. right hip fracture/lesion:Ortho, ID and Heme/Onc consulted for assistance for further management, IR guided aspiration/analysis, negative for metastatic disease 2. E. coli UTI: Continue rocephin 05/26/20 3. History of COVID-19 viral infection: 11/2019. Removed out isolation precautions per infectious disease 4. Essential hypertension: Metoprolol Norvasc continue to be on hold secondary to improving hypotension. 5. Poor p.o. intake 6. Depression with anxiety: Continue Xanax increased frequency, Zoloft 7. Diabetes mellitus type 2: A.m. blood sugar within normal limits. Continue KARMA. Monitor patientfor hyper/hypoglycemic events 8. Septic shock: Resolved, with concurrent hypovolemic hypotension- continue Rocephin per ID recs 9. Nontraumatic rhabdo: resolved, nephrology following. Discontinue IV fluids 10. Morbid obesity 11. GI/DVT prophylaxis: Protonix, heparin 12. Dispo: senior living facility post discharge, likely today RUSS Aldana NP 04/29/2020 8:55 AM Associated attestation - Eli Lamb DO - 04/29/2020 3:50 PM EST I have seen and examined Lisa Mcdaniels and the mays elements of all parts of the encounter have been performed by me. I agree with the assessment, plan and orders as documented by the Advanced Practice Provider. Any modifications to the exam findings and the plan of treatment is as below and the final version is my approved version of the assessment. Additional Comments: Patient is resting company denies any complaints of chest pain, shortness of breath, nausea or vomiting. Neck is supple without JVD Heart is very rhythm and rate Orthopedic, oncology and ID evaluations in progress. GI and DVT prophylaxis PT and OT Discharge planning, plan was discharged to skilled facility, orthopedics now recommending transfer to [facility] for further investigation for possible primary bone cancer, transfer initiated * Ad Ramos MD - 04/28/2020 7:48 PM EST Reviewed physical therapy notes. Reviewed the pathology report. Discussed the report with the patient. If future repeat open biopsy is needed we will arrange it. * Linda Garcia OT - 04/28/2020 3:45 PM EST Occupational Therapy Facility/Department: [address] [facility] Daily Treatment Note NAME: Lisa Mcdaniels : 1980 Date of Service: 04/28/2020 Discharge Recommendations: Patient would benefit from continued therapy after discharge OT Equipment Recommendations Equipment Needed: Yes Mobility Devices: ADL Assistive Devices ADL Assistive Devices: Toileting - Drop Arm Commode, Heavy Duty Drop Arm Commode;Shower Chair with back;Sock-Aid Soft;Network Administrator Assessment Performance deficits / Impairments: Decreased functional mobility ;Decreased ADL status;Decreased endurance;Decreased high-level IADLs;Decreased strength;Decreased safe awareness;Decreased balance Prognosis: Good Decision Making: Medium Complexity Patient Education: OT POC, importance of OOB activity, hand placement for transfers, use of bed rail for bed mobility, importance of progressing self for therapy - fair return REQUIRES OT FOLLOW UP: Yes Activity Tolerance Activity Tolerance: Patient limited by pain;Patient limited by fatigue Activity Tolerance: HR at 145 EOB with standing Safety Devices Safety Devices in place: Yes Type of devices: All fall risk precautions in place;Patient at risk for falls;Call light within reach;Left in bed;Nurse notified;Gait belt Restraints Initially in place: No Patient Diagnosis(es): There were no encounter diagnoses. has a past medical history of MARCIE (acute kidney injury) ([facility]), Anemia, Anxiety, Bipolar 1 disorder (HCC), Cellulitis, COVID-19, Diabetes mellitus (HCC), DVT (deep venous thrombosis) (HCC), Hypertension, Migraine, Obesity, PE (pulmonary thromboembolism) (HCC), and Pelvis fracture (HCC). has a past surgical history that includes Cholecystectomy; Tonsillectomy; section; hc piccpowerpic triple (04/21/2020); and IR BIOPSY SUPERFICIAL BONE (04/25/2020). Restrictions Restrictions/Precautions Restrictions/Precautions: General Precautions Required Braces or Orthoses?: No Position Activity Restriction Other position/activity restrictions: up with assistance; Pt reports WBAT from pevlic injury in january General Patient assessed for rehabilitation services?: Yes Family / Caregiver Present: No General Comment Comments: RN ok'd patient for OT/PT tx. Pt pleasant and cooperative throughout. Pain Assessment Pain Assessment: Faces Pain Level: 7 Pain Location: Hip;Back Pain Orientation: Right Non-Pharmaceutical Pain Intervention(s): Ambulation/Increased Activity;Distraction;Repositioned Response to Pain Intervention: Patient Satisfied Vital Signs Patient Currently in Pain: Yes Orientation Objective ADL Grooming: Modified independent ;Setup(OT facilitated washing face sitting EOB with set up, pt provided with hair brush, declined brushing hair at this time) LE Dressing: Increased time to complete;Setup;Dependent/Total(TD for donning socks EOB, reports using a sock aid at baseline) Balance Sitting Balance: Stand by assistance(EOB for ~8 min) Standing Balance: Contact guard assistance Standing Balance Time: 1 min Activity: EOB, side steps to HOB Comment: HR reaching 145 with standing EOB; returned to EOB recovered quickly Functional Mobility Functional - Mobility Device: Rolling Walker Activity: Other Assist Level: Contact guard assistance Bed mobility Supine to Sit: Contact guard assistance Sit to Supine: Contact guard assistance Scooting: Contact guard assistance Transfers Sit to stand: Moderate assistance Stand to sit: Contact guard assistance Cognition Overall Cognitive Status: WFL Plan Plan Times per week: 3-4x/wk Current Treatment Recommendations: Strengthening, Safety Education & Training, Patient/Caregiver Education & Training, Self-Care / ADL, Equipment Evaluation, Education, & procurement, Endurance Training, Functional Mobility Training, Balance Training Goals Short term goals Time Frame for Short term goals: Patient will, by discharge Short term goal 1: demo UB ADLs at CGA using AE PRN Short term goal 2: demo LB ADLs at Mod A using AE PRN Short term goal 3: demo functional transfers at CGA Short term goal 4: demo 3+ min of dynamic standing tolerance at CGA to engage in ADLs Short term goal 5: demo bed mobility at Min A Short term goal 6: NOTIFY OTR TO UPDATE POC PATIENT PROGRESSES Therapy Time Individual Concurrent Group Co-treatment Time In 1444 Time Out 1502 Minutes 18 Timed Code Treatment Minutes: 8 Minutes Linda Garcia, OTR/L * Zoraida Tello PTA - 04/28/2020 3:16 PM EST Physical Therapy Facility/Department: [address] [facility] Daily Treatment Note NAME: Lisa Mcdaniels : 1980 Date of Service: 04/28/2020 Discharge Recommendations: Patient would benefit from continued therapy after discharge Assessment Body structures, Functions, Activity limitations: Decreased functional mobility ;Decreased endurance;Decreased strength;Increased pain Assessment: Pt beformed bed mobility CGA, and sat EOB ~8 CGA. Performed sit to stand with ModA x2, pt took 3 side steps towards HOB with CGA and RW. After pt took steps, her HR increased to 145 bpm, but recovered soon after pt sat back down. She could benefit from continued PT services for gait training and strengthening. Prognosis: Good Decision Making: Medium Complexity PT Education: Goals;PT Role;Plan of Care REQUIRES PT FOLLOW UP: Yes Activity Tolerance Activity Tolerance: Patient limited by fatigue;Patient limited by pain Patient Diagnosis(es): There were no encounter diagnoses. has a past medical history of MARCIE (acute kidney injury) ([facility]), Anemia, Anxiety, Bipolar 1 disorder ([facility]), Cellulitis, COVID-19, Diabetes mellitus ([facility]), DVT (deep venous thrombosis) ([facility]), Hypertension, Migraine, Obesity, PE (pulmonary thromboembolism) ([facility]), and Pelvis fracture ([facility]). has a past surgical history that includes Cholecystectomy; Tonsillectomy; section; hc piccpowerpic triple (04/21/2020); and IR BIOPSY SUPERFICIAL BONE (04/25/2020). Restrictions Restrictions/Precautions Restrictions/Precautions: General Precautions Required Braces or Orthoses?: No Position Activity Restriction Other position/activity restrictions: up with assistance; Pt reports WBAT from pe[place]lic injury in [place] Subjective General Chart Reviewed: Yes Response To Previous Treatment: Patient with no complaints from previous session. Family / Caregiver Present: No Subjective Subjective: Pt and RN agreeable to PT this afternoon. Pt awake in bed upon arrival with c/o 7/10 pain in low back/hip. Co-treat with OT. Pain Screening Patient Currently in Pain: Yes Pain Assessment Pain Assessment: 0-10 Pain Level: 7 Pain Location: Hip;Back Pain Orientation: Right Vital Signs Patient Currently in Pain: Yes Orientation Orientation Overall Orientation Status: Within Normal Limits Cognition Cognition Overall Cognitive Status: WFL Objective Bed mobility Supine to Sit: Contact guard assistance Sit to Supine: Contact guard assistance Scooting: Contact guard assistance Comment: in bariatric bed and with use of bed rails Transfers Sit to Stand: Moderate Assistance;2 Person Assistance Stand to sit: Moderate Assistance;2 Person Assistance Ambulation Ambulation?: Yes Ambulation 1 Surface: level tile Device: Rolling Walker Other Apparatus: O2 Assistance: Contact guard assistance Gait Deviations: Decreased step length;Decreased step height Distance: 3 side steps towards HOB Stairs/Curb Stairs?: No Balance Posture: Good Sitting - Static: Good Sitting - Dynamic: Poor Standing - Static: Fair Standing - Dynamic: Fair Comments: standing balance assessed with RW. Pt sat EOB ~8 minutes CGA-SBA. Exercises: Seated LE exercise program: Long Arc Quads, hip abduction/adduction, heel/toe raises. Reps: 10x each LE Goals Short term goals Time Frame for Short term goals: 10 visits Short term goal 1: transfers with SBA Short term goal 2: amb 50 ft with a RW x SBA Short term goal 3: ascend/descend 4 steps with SBA Short term goal 4: 20-30 min exercise program x SBA Patient Goals Patient goals : Return home Plan Plan Times per week: 5-6x wk Current Treatment Recommendations: Strengthening, Functional Mobility Training, Transfer Training, Gait Training, Safety Education & Training, Endurance Training, Stair training, Pain Management Safety Devices Type of devices: Call light within reach, Left in bed, Nurse notified Restraints Initially in place: No Therapy Time Individual Concurrent Group Co-treatment Time In 1446 Time Out 1502 Minutes 16 Timed Code Treatment Minutes: 8 Minutes (co-treat with OT) Zoraida Tello PTA * Marisol Ramirez, ANAMARIA, LD - 04/28/2020 2:29 PM EST Comprehensive Nutrition Assessment Type and Reason for Visit: Initial(LOS) Nutrition Recommendations/Plan: Continue current Carb Control diet. Encourage/monitor intakes as tolerated. Provide ONS as/if needed with meals. Nutrition Assessment: Pt seen based on length of stay. Admitted with c/o right hip pain. Pt with previous pelvis fracture. PMHx of DM, HTN. Pt with ischium mass present - s/p biopsy and awaiting results. Pt with a good appetite and eating well at meals. Consumed more than 75% of breakfast today. Labs/Meds reviewed. Noted pt recieving Megace - reported hx of poor PO intakes. Malnutrition Assessment: Malnutrition Status: Insufficient data Context: Acute Illness Findings of the 6 clinical characteristics of malnutrition: Energy Intake: Mild decrease in energy intake (Comment) Weight Loss: Unable to assess Body Fat Loss: No significant body fat loss Muscle Mass Loss: No significant muscle mass loss Fluid Accumulation: (Moderate) Generalized Process Manager Strength: Not Performed Estimated Daily Nutrient Needs: Energy (kcal): 12-14 kcal/kg = 2321-5944 kcals/day; Weight Used for Energy Requirements: Admission Protein (g): 1.2-1.5 gm/kg = 80-100 gm pro/day; Weight Used for Protein Requirements: Merkel Nutrition Related Findings: Labs reviewed. Meds reviewed: Humalog, Megace, Vitamin D. Last BM 04/27. Wounds: (Areas of redness and excoriations.) Current Nutrition Therapies: DIET CARB CONTROL; Carb Control: 4 carb choices (60 gms)/meal Anthropometric Measures: Height: 5' 9 (175.3 cm) Current Body Weight: 415 lb (188.2 kg) Admission Body Weight: 408 lb (185.1 kg) Merkel Body Weight: 145 lbs; % Merkel Body Weight 286.2 % BMI: 61.3 BMI Categories: Obese Class 3 (BMI 40.0 or greater) Nutrition Diagnosis: Inadequate oral intake related to (current medical condition) as evidenced by (hx of poor PO intakes) Nutrition Interventions: Food and/or Nutrient Delivery: Continue Current Diet Nutrition Education/Counseling: No recommendation at this time Coordination of Nutrition Care: Continue to monitor while inpatient Goals: Oral intakes to meet 75-100% of estimated nutrition needs. Nutrition Monitoring and Evaluation: Food/Nutrient Intake Outcomes: Food and Nutrient Intake Physical Signs/Symptoms Outcomes: Biochemical Data, GI Status, Fluid Status or Edema, Hemodynamic Status, Nutrition Focused Physical Findings, Skin, Weight Contact: * Smith Diaz MD - 04/28/2020 12:15 PM EST [facility] - Infectious diseases evaluation admission date 04/21/2020 reason for consultation: covid + Impression : Current: Remote Covid, persistent positive test, + AB, no clinical covid illness, isolation removed Septic shock - resolved CRP elevation Acute renal failure improving Hyperkalemia elevated CPK Morbid obesity R ischial bone lytic lesions and a soft tissue mass Right hip pathological fracture 01/2020. No sx, ambulating Allergy severe to PNC swelling and SOB tolerated cefepime 04/25 SCN bacteremia contamination U cx Enterococcus faecalis & MSSA, presumed UTI, BC neg Discussion / summary of stay / plan of care Recommendations U cx Enterococcus faecalis & MSSA, presumed UTI Stopped vancomycin and cefepime 04/24 Switch AB back to ceftriaxone 2 g daily x4 weeks, until 05/26/2004/28 echo completed - no obvious vegetations, get MIRYAM when indicated Lytic ischial lesions - IR to biopsy for cx and path, necrotic tissue, no atypical cells cx [negative] Bone scan - suspicious of metastatic disease rather than infectious disease, renal cell, breast or thyroid are suggested by reading Get oncology to [facility] appropriately Get bone scan outpatient to look for improvement Reconciled. Ok to DC F/u in clinic in 4 weeks Infection Control Recommendations Zebulon Precautions Antimicrobial Stewardship Recommendations Simplification of therapy Targeted therapy IV to oral conversion Per Kg dosing Coordination ofOutpatient Care: Estimated Length of IV antimicrobials: Patient will need Midline / picc Catheter Insertion: Patient will need SNF: Patient will need outpatient wound care: History of Present Illness: Initial history: Lisa Mcdaniels is a 39 y.o.-year-old female history of Covid in November and needed oxygen at thetime Fracture of the right pelvis after a fall in January, treated conservatively and sent to the SNF and left Home improved 04/18 - arriving home Could not walk the steps and sat down x 2 days before she got attention. this was due to pain of the right hip - presented w headache nausea to the emergency room, was tachycardic hypotensive needing oxygen and pressors. ARF and elevated CK and K. Per report the patient was tested Covid positive - covid AB + as well Procalcitonin 1.5 and white count of 16, creatinine elevated 6 and CRP 19 She was also noticed to have a potassium of 7 Chest x-ray bilateral hazy infiltrates CT of the pelvis only shows lytic bone lesions of the right ischium along with soft tissue mass with nonspecific groundglass opacities bilateral lungs The patient was admitted with septic shock started on Levophed, but due to the positive Covid she was admitted to the Covid unit 04/22 creat better - K better - off pressures No cellulitis Leiva from [place] was removed - urine seemed cloudy w sediments but she denies dysuria and UAwas contaminated initially, then repeat shows no UTI signs. Interval changes 04/28/2020 Patient Vitals for the past 8 hrs: BP Temp Temp src Pulse Resp SpO2 04/28/20 0815 138/79 98.4 F (36.9 C) Oral 75 13 99 % 04/28/20 0800 74 Continues to have pain in the right hip, it is better than before, was able to sit up and stand today with PT. No acute events overnight. Remains afebrile. Tissue culture negative so far Pathology showing no evidence of malignancy and no evidence of infection. Consider surgical incisional biopsy in future for further work up. bone scan is concerning for metastasis more than infection Oncology consulted, pending Summary of relevant labs: Labs: WBC 12 - 8.5 - 8.2 - 7.6 - 7 - 8.7 Procal 1.71 Creat 2.57 - 1.86 - 1.42 CRP 237.5 - 72.4 - 29 Fibrinogen 605 CEA: 2.2 Ca 19-9: 14 AFP: 4.8 CA 125: 22 CA 27.29 : 21 kappa / lambda nl Micro: Urine cx 04/21 +Enterococcus faecalis & MSSA Blood cx 04/21 neg Blood cx 04/25 +Staph epidermidis in 1/2, represents contaminant Bone bx 04/25 cx negative Path report pending THERE IS NO EVIDENCE OF MALIGNANCY IN THE SECTIONS, HOWEVER THERE IS ALSO NO EVIDENCE OF AN IDENTIFIABLE INFECTIOUS ETIOLOGY. CONSIDERATION FOR A SURGICAL INCISIONAL BIOPSY AT A FUTURE DATE (BOTH FOR ROUTINE HISTOLOGY WELL TISSUE MICROBIOLOGICAL CULTURE) MAY BE FURTHER CONTRIBUTORY, IF THE PATIENT FAILS TO RESPOND TO CONSERVATIVE THERAPY. ImaginD Echo: No obvious vegetation on this study, consider MIRYAM when indicated. Bone scan 04/25 - Heterogeneous uptake of radiotracer in the right ischial bone where the patient has an expansile lytic lesion. No abnormal increased activity. Decreased radiotracer uptake may be related to rapid bone turnover. Findings suspicious for metastatic disease rather than infection. Renal cell carcinoma, thyroid carcinoma and breast carcinoma would be likely etiology in the event of metastatic etiology. 4. Favor neoplastic bony destructive process over infectious process. Renal US no renal mass CT Hip/Pelvis - 04/24 Aggressive osseous destruction and fragmented ossific densities and ossific debris with destruction of the right ischial tuberosity extending to the posterior column of the right acetabulum. Differential consideration includes destructive metastatic lesion with surrounding soft tissue mass with superinfection not excluded versus a combination of osteomyelitis and surrounding phlegmonous changes. However, there is no ulceration extending to this region making primary infection less likely. Destructive metastatic lesion and/or pathological fracture/osseous destruction is suspected. Pelvis xray 04/23: Diastasis left SI joint suggested fracture of the right inferior pubic ramus possible of pathologic fracture cannot be excluded, further evaluation with CT of the pelvis is recommended Renal US 04/[address] of the pelvis only shows lytic bone lesions of the right ischium along with soft tissue mass with nonspecific groundglass opacities bilateral lungs I have personally reviewed the past medical history, past surgical history, medications, social history, and family history, and I haveupdated the database accordingly. Allergies: Penicillins and Darvon [propoxyphene] Review of Systems: Review of Systems Constitutional: Positive for activity change. Negative for appetite change, chills and fever. HENT: Negative for congestion. Eyes: Negative for discharge. Respiratory: Negative for apnea and cough. Cardiovascular: Negative for chest pain. Gastrointestinal: Negative for abdominal pain and nausea. Endocrine: Negative for heat intolerance. Genitourinary: Negative for dysuria. Musculoskeletal: Positive for arthralgias. Skin: Negative for color change. Allergic/Immunologic: Negative for immunocompromised state. Neurological: Negative for headaches. Hematological: Negative for adenopathy. Psychiatric/Behavioral: Negative for agitation. Physical Examination : Physical Exam Constitutional: Appearance: Normal appearance. She is obese. She is not ill-appearing or diaphoretic. HENT: Head: Normocephalic and atraumatic. Nose: No congestion or rhinorrhea. Comments: Nasal canula Mouth/Throat: Mouth: Mucous membranes are moist. Eyes: Conjunctiva/sclera: Conjunctivae normal. Neck: Musculoskeletal: Neck supple. No muscular tenderness. Cardiovascular: Rate and Rhythm: Normal rate and regular rhythm. Heart sounds: Normal heart sounds. No murmur. Pulmonary: Effort: No respiratory distress. Breath sounds: Normal breath sounds. Abdominal: Palpations: Abdomen is soft. Tenderness: There is no abdominal tenderness. There is no guarding. Genitourinary: Comments: Urine kelly Musculoskeletal: General: No swelling or deformity. Skin: General: Skin is dry. Coloration: Skin is not jaundiced. Neurological: Mental Status: She is oriented to person, place, and time. Mental status is at baseline. Cranial Nerves: No cranial nerve deficit. Psychiatric: Mood and Affect: Mood normal. Thought Content: Thought content normal. Past Medical History: Past Medical History: Diagnosis Date MARCIE (acute kidney injury) ([facility]) 04/21/2020 Anemia Anxiety Bipolar 1 disorder ([facility]) Cellulitis bilateral legs COVID-19 11/2019 Diabetes mellitus ([facility]) DVT (deep venous thrombosis) ([facility]) 2014 Hypertension Migraine Obesity 01/07/2017 BMI 67.5 PE (pulmonary thromboembolism) ([facility]) 2014 Pelvis fracture ([facility]) 01/2020 Past Surgical History: Past Surgical History: Procedure Laterality Date SECTION CHOLECYSTECTOMY PICC POWERPIC TRIPLE 04/21/2020 IR BIOPSY BONE NEEDLE SUPERFCL 04/25/2020 IR BIOPSY BONE NEEDLE SUPERFCL 04/25/2020 Steph Veliz MD [facility] SPECIAL PROCEDURES TONSILLECTOMY Medications: miconazole Topical BID cefTRIAXone (ROCEPHIN) IV 2 g Intravenous Q24H oxyCODONE-acetaminophen 1 tablet Oral Once [Held by provider] amLODIPine 5 mg Oral Daily megestrol 40 mg Oral Daily [Held by provider] metoprolol tartrate 25 mg Oral BID OXcarbazepine 300 mg Oral QPM pantoprazole 40 mg Oral QAM AC sertraline 50 mg Oral Daily Vitamin D 6,000 Units Oral Daily sodium chloride flush 10 mL Intravenous 2 times per day insulin lispro 0-12 Units Subcutaneous TID WC insulin lispro 0-6 Units Subcutaneous Nightly heparin (porcine) 10,000 Units Subcutaneous 3 times per day Social History: Social History Socioeconomic History Marital status: Spouse name: steph Number of children: 1 Years of education: Not on file Highest education level: Not on file Occupational History Not on file Social Needs Financial resource strain: Not on file Food insecurity Worry: Not on file Inability: Not on file Transportation needs Medical: Not on file Non-medical: Not on file Tobacco Use Smoking status: Never Smoker Smokeless tobacco: Never Used Substance and Sexual Activity Alcohol use: No Drug use: No Sexual activity: Not on file Lifestyle Physical activity Days per week: Not on file Minutes per session: Not on file Stress: Not on file Relationships Social connections Talks on phone: Not on file Gets together: Not on file Attends episcopal service: Not on file Active member of club or organization: Not on file Attends meetings of clubs or organizations: Not on file Relationship status: Not on file Intimate partner violence Fear of current or ex partner: Not on file Emotionally abused: Not on file Physically abused: Not on file Forced sexual activity: Not on file Other Topics Concern Not on file Social History Narrative Lives With: Spouse Type of Home: House--Home Layout: One level Home Access: Stairs to enter without rails--Entrance Stairs - Number of Steps: 2 Bathroom Shower/Tub: Walk-in shower Bathroom Equipment: (no AD) Home Equipment: (no AD) ADL Assistance: Independent Homemaking Assistance: Independent Ambulation Assistance: Independent Transfer Assistance: Independent Active Stove Refinisher: Yes Lives w family Family History: Family History Problem Relation Age of Onset Stroke Mother Diabetes Father Hypertension Father High Cholesterol Father Medical Decision Making: I have independently reviewed/ordered the following labs: CBC with Differential: Recent Labs 04/26/20 0512 04/27/20 0713 WBC 8.7 9.0 HGB 8.5* 9.4* HCT 29.1* 30.4* PLT 183 See Reflexed IPF Result BMP: Recent Labs 04/27/20 0713 04/28/20 0601 NA 137 138 K 5.1 4.6 CL 106 108* CO2 21 23 BUN 13 13 CREATININE 0.65 0.63 Hepatic Function Panel: No results for input(s): PROT, LABALBU, BILIDIR, IBILI, BILITOT, ALKPHOS, ALT, AST in the last 72 hours. No results for input(s): RPR in the last 72 hours. No results for input(s): HIV in the last 72 hours. No results for input(s): BC in the last 72 hours. Lab Results Component Value Date CREATININE 0.63 04/28/2020 GLUCOSE 90 04/28/2020 Detailed results: Thank you for allowing us to participate in the care of this patient.Please call with questions. This note is created with the assistance of a speech recognition program. While intending to generate adocument that actually reflects the content of the visit, the document can still have some errors including those of syntax and sound a like substitutions which may escape proof reading. It such instances, actual meaningcan be extrapolated by contextual diversion. Randi Argueta Office: [facility] / office [phone] I have discussed the care of the patient, including pertinent history and exam findings, with the student. I have seen and examined the patient and the mays elements of all parts of the encounter havebeen performed by me. I agree with the assessment, plan and orders as documented by the student Smith Diaz, Infectious Diseases * Wendy Lowery - 04/28/2020 9:12 AM EST Echo completed at the bedside. * Lisa Thomas APRN - NP - 04/28/2020 8:56 AM EST [facility] Office: [phone] Matthew Green DO, Niko Winn DO, Eli Lamb DO, Gabriel Cosme DO, Britney Hooper MD, Viviana Stern MD, Vanessa Yi MD, Kati Mcdaniel MD, Don Anderson MD, Rosalia Espinoza MD, MD Sharmaine, Dandy Go MD, Edson Jackson MD, Reji Houser DO, Trupti Martínez MD, Jhoana Nelson MD, Cristhian Mccoy DO, Salvador Kirby MD, Luci Garcia DO, Javy Minaya MD, MD Ana, Tatyana Velasquez, DECK SUPERVISOR, Radha Conde, DECK SUPERVISOR, Fallon Morrissey, DECK SUPERVISOR, Penny Medina, MILLER APPRENTICE,Andi James, DECK SUPERVISOR, Iraida Samson, DECK SUPERVISOR, Wendy Stephen, DECK SUPERVISOR, Kelly Wallace, DECK SUPERVISOR, Divine Porter, DECK SUPERVISOR, Ottoniel Lozano PA-C, Lisa Thomas, JULISSA, Zoraida Sue, DECK SUPERVISOR, Zuly Rowe, DECK SUPERVISOR, Marychuy Masterson, DECK SUPERVISOR, Joana Pichardo, DECK SUPERVISOR, Ebony Cole, DECK SUPERVISOR [facility] IN-PATIENT SERVICE [facility] Progress Note 04/28/2020 8:56 AM Name: Lisa Mcdaniels Acct: [id number] Room: [address] [place] [address] Day: 7 Admit Date: 04/21/2020 12:10 PM PCP: No primary care provider on file. Code Status: Full Code Subjective: C/C: hip pain Interval History Status: not changed Patient evaluated in room sitting in bed in no acute distress. Vital signs are stable. Pain persists. Patient tolerating p.o. intake well. Awaiting biopsy results. Oncology following. Brief History: Lisa Mcdaniels is a 39 y.o. F who was directly admitted from [facility] ED Apr 21 for the management of Septic shock (HCC). Pt tested + Covid in November and was treated with supplemental oxygen. On Feb 04 she fell and sustained a rt pelvic fracture. Pt was discharged to a SNF where she recently tested Neg for Covid. She left the facility Apr 18. Since dc pt has been unable to walk due to rt hip pain. She reports H/A, F/C and nausea. On presentation to the ED pt was tachycardic and hypotensive. She was tx with 2L Saline, Levophed, Ceftaroline, Clindamycin & Fentanyl. Pt reported covid + but there was no documentation sent to substantiate this. Patient cleared out of isolation precautions per infectious disease Levophed weaned R hip pain persistent- unable to complete MRI due to body habitus, ortho consulted Review of Systems: Constitutional: negative for chills, fevers, sweats Respiratory: negative for cough, dyspnea on exertion, shortness of breath, wheezing Cardiovascular: negative for chest pain, chest pressure/discomfort, lower extremity edema, palpitations Gastrointestinal: negative for abdominal pain, constipation, diarrhea, nausea, vomiting Neurological: negative for dizziness, headache Medications: Allergies: Allergies Allergen Reactions Penicillins Swelling tolerated cefepime 04/2020 Darvon [Propoxyphene] Hives Current Meds: Scheduled Meds: miconazole Topical BID cefTRIAXone (ROCEPHIN) IV 2 g Intravenous Q24H oxyCODONE-acetaminophen 1 tablet Oral Once [Held by provider] amLODIPine 5 mg Oral Daily megestrol 40 mg Oral Daily [Held by provider] metoprolol tartrate 25 mg Oral BID OXcarbazepine 300 mg Oral QPM pantoprazole 40 mg Oral QAM AC sertraline 50 mg Oral Daily Vitamin D 6,000 Units Oral Daily sodium chloride flush 10 mL Intravenous 2 times per day insulin lispro 0-12 Units Subcutaneous TID WC insulin lispro 0-6 Units Subcutaneous Nightly heparin (porcine) 10,000 Units Subcutaneous 3 times per day Continuous Infusions: dextrose sodium chloride 50 mL/hr at 04/28/20 0345 PRN Meds: ALPRAZolam, glucose, dextrose, glucagon (rDNA), dextrose, albuterol, albuterol sulfate HFA, traMADol, HYDROcodone 5 mg - acetaminophen OR HYDROcodone 5 mg - acetaminophen, sodium chloride flush Data: Past Medical History: has a past medical history of MARCIE (acute kidney injury) ([facility]), Anemia, Anxiety, Bipolar 1 disorder ([facility]), Cellulitis, COVID-19, Diabetes mellitus ([facility]), DVT (deep venous thrombosis) ([facility]), Hypertension, Migraine, Obesity, PE (pulmonary thromboembolism) ([facility]), and Pelvis fracture ([facility]). Social History: reports that she has never smoked. She has never used smokeless tobacco. She reports that she does not drink alcohol or use drugs. Family History: Family History Problem Relation Age of Onset Stroke Mother Diabetes Father Hypertension Father High Cholesterol Father Vitals: BP 138/79 Pulse 75 Temp 98.4 F (36.9 C) (Oral) Resp 13 Ht 5' 9 (1.753 m) Wt (!) 415 lb (188.2 kg) SpO2 99% BMI 61.28 kg/m Temp (24hrs), Av.9 F (36.6 C), Min:97.1 F (36.2 C), Max:99.1 F (37.3 C) Recent Labs 04/27/20 1201 04/27/20 1713 04/27/20201404/28/20 0740 POCGLU 79 94 119* 87 I/O (24Hr): Intake/Output Summary (Last 24 hours) at 04/28/2020 0856 Last data filed at 04/28/2020 0800 Gross per 24 hour Intake 725 ml Output 1625 ml Net -900 ml Labs: Hematology: Recent Labs 04/26/20 0512 04/27/20 0713 WBC 8.7 9.0 RBC 3.42* 3.76* HGB 8.5* 9.4* HCT 29.1* 30.4* MCV 85.1 80.9* MCH 24.9* 25.0* MCHC 29.2 30.9 RDW 19.9* 19.7* PLT 183 See Reflexed IPF Result MPV 10.0 NOT REPORTED Chemistry: Recent Labs 04/26/20 0512 04/27/20 0713 04/28/20 0601 NA 135 137 138 K 5.1 5.1 4.6 CL 106 106 108* CO2 21 21 23 GLUCOSE 85 86 90 BUN 15 13 13 CREATININE 0.63 0.65 0.63 ANIONGAP 8* 10 7* LABGLOM >60 >60 >60 GFRAA >60 >60 >60 CALCIUM 8.3* 8.5* 9.0 Recent Labs 04/26/20 2013 04/27/20 0759 04/27/20 1201 04/27/20 1713 04/27/20201404/28/20 0740 POCGLU 98 76 79 94 119* 87 ABG:No results found for: POCPH, PHART, PH, POCPCO2, VCH3XDI, PCO2, POCPO2, PO2ART, PO2, POCHCO3, QBI9ZFS, HCO3, NBEA, PBEA, BEART, BE, THGBART, THB, XXI7RPI, HQMG5JFK, F0YUFSPK, O2SAT, FIO2 Lab Results Component Value Date/Time SPECIAL NOT REPORTED 04/25/2020 12:00 PM Lab Results Component Value Date/Time CULTURE NO GROWTH 2 DAYS 04/25/2020 12:00 PM Radiology: Us Renal Limited Result Date: 04/22/2020 Essentially unremarkable renal ultrasound Physical Examination: General appearance: alert, cooperative and no distress, withdrawal Mental Status: oriented to person, place and time and normal affect Lungs: clear to auscultation bilaterally, normal effort, diminished posteriorly secondary to body habitus Heart: regular rate and rhythm, no murmur Abdomen: Morbidly obese soft, nontender, nondistended, normal bowel sounds, no masses, hepatomegaly, splenomegaly Extremities: no edema, redness, tenderness in the calves, bilateral vascular discoloration Skin: no gross lesions, rashes, induration Assessment: Hospital Problems Last Modified POA * (Principal) Septic shock (HCC) 04/21/2020 Yes Diabetes (HCC) (Chronic) 04/21/2020 Yes Morbid obesity due to excess calories (HCC) (Chronic) 04/21/2020 Yes Lactic acid acidosis 04/21/2020 Yes Pelvic fracture (HCC) (Chronic) 04/21/2020 Yes Non-traumatic rhabdomyolysis 04/21/2020 Yes COVID-19 04/21/2020 Yes Overview Signed 04/21/2020 6:13 PM by Penny Medina APRN - MILLER APPRENTICE + Covid November 2019 MARCIE (acute kidney injury) (HCC) 04/21/2020 Yes Plan: 1. Pathologic right hip fracture/lesion:Ortho, ID and Heme/Onc consulted for assistance for furthermanagement, IR guided aspiration/analysis, probable metastatic illness per onc notes. Echo ordered.Right hip biopsy pending 2. E. coli UTI: Continue rocephin 3. History of COVID-19 viral infection: 11/2019. Removed out isolation precautions per infectious disease 4. Essential hypertension: Metoprolol Norvasc continue to be on hold secondary to improving hypotension. 5. Poor p.o. intake 6. Depression with anxiety: Continue Xanax increased frequency, Zoloft 7. Diabetes mellitus type 2: A.m. blood sugar within normal limits. Continue KARMA. Monitor patientfor hyper/hypoglycemic events 8. Septic shock: Resolved, with concurrent hypovolemic hypotension- continue Rocephin per ID recs 9. Nontraumatic rhabdo: resolved, nephrology following. Discontinue IV fluids 10. Morbid obesity 11. GI/DVT prophylaxis: Protonix, heparin 12. Dispo: senior living facility post discharge Lisa GomezeRUSS - WEATHER ANALYST 04/28/2020 8:56 AM Associated attestation - Jesús Nguyen MD - 04/28/2020 5:31 PM EST Attending Supervising Physician s Attestation Statement I have seen and examined Lisa Mcdaniels and the mays elements of all parts of the encounter have been performed by me. I agree with the assessment, plan and orders as documented by the Advanced Practice Provider. I discussed the findings and plans with the nurse practitioner and agree as documented in her note . Additional Comments: awaiting biopsy results. Working on placement. Discussed with patient. DC whencleared by all services * Elke Mcghee OTA - 04/28/2020 8:13 AM EST Occupational Therapy Occupational Therapy Not Seen Note DATE: 04/28/2020 Name: Lisa Mcdaniels : 1980 Patient not available for Occupational Therapy due to: Patient Declined this AM after SAUCEDO encouragement pt declining to open eyes. Next Scheduled Treatment: Attempt back if time allotted * Smith Diaz MD - 04/27/2020 10:43 PM EST [facility] - Infectious diseases evaluation admission date 04/21/2020 reason for consultation: covid + Impression : Current: Remote Covid, persistent positive test, + AB, no clinical covid illness, isolation removed Septic shock - resolved CRP elevation Acute renal failure improving Hyperkalemia elevated CPK Morbid obesity R ischial bone lytic lesions and a soft tissue mass Right hip pathological fracture 01/2020. No sx, ambulating Allergy severe to PNC swelling and SOB tolerated cefepime 04/25 SCN bacteremia contamination U cx Enterococcus faecalis & MSSA, presumed UTI, BC neg Discussion / summary of stay / plan of care Recommendations U cx Enterococcus faecalis & MSSA, presumed UTI Stopped vancomycin and cefepime 04/24 Switch AB back to ceftriaxone 2 g daily Still pend echo due to SA in urine Lytic ischial lesions - IR to biopsy for cx and path, necrotic tissue seen pend cx [negative] and path Bone scan - suspicious of metastatic disease rather than infectious disease, renal cell, breast or thyroid are suggested by reading Get oncology to [facility] appropriately Infection Control Recommendations Zebulon Precautions Antimicrobial Stewardship Recommendations Simplification of therapy Targeted therapy IV to oral conversion Per Kg dosing Coordination ofOutpatient Care: Estimated Length of IV antimicrobials: Patient will need Midline / picc Catheter Insertion: Patient will need SNF: Patient will need outpatient wound care: History of Present Illness: Initial history: Lisa Mcdaniels is a 39 y.o.-year-old female history of Covid in November and needed oxygen at thetime Fracture of the right pelvis after a fall in January, treated conservatively and sent to the SNF and left Home improved 04/18 - arriving home Could not walk the steps and sat down x 2 days before she got attention. this was due to pain of the right hip - presented w headache nausea to the emergency room, was tachycardic hypotensive needing oxygen and pressors. ARF and elevated CK and K. Per report the patient was tested Covid positive - covid AB + as well Procalcitonin 1.5 and white count of 16, creatinine elevated 6 and CRP 19 She was also noticed to have a potassium of 7 Chest x-ray bilateral hazy infiltrates CT of the pelvis only shows lytic bone lesions of the right ischium along with soft tissue mass with nonspecific groundglass opacities bilateral lungs The patient was admitted with septic shock started on Levophed, but due to the positive Covid she was admitted to the Covid unit 04/22 creat better - K better - off pressures No cellulitis Leiva from [place] was removed - urine seemed cloudy w sediments but she denies dysuria and UAwas contaminated initially, then repeat shows no UTI signs. Interval changes 04/27/2020 Patient Vitals for the past 8 hrs: BP Temp Temp src Pulse Resp SpO2 04/27/20 1939 126/71 97.1 F (36.2 C) Oral 80 16 100 % 04/27/20 1600 133/63 99.1 F (37.3 C) Oral Continues to have pain in the right hip, it is better than before, the patient continues on the antibiotic, blood cultures showing SCN X1 contamination not of any significance clinically Pathology still pending at this point, but the bone scan is concerning for metastasis more than infection Oncology consulted, pending Summary of relevant labs: Labs: WBC 12 - 8.5 - 8.2 - 7.6 - 7 - 8.7 Procal 1.71 Creat 2.57 - 1.86 - 1.42 CRP 237.5 - 72.4 - 29 Fibrinogen 605 CEA: 2.2 Ca 19-9: 14 AFP: 4.8 CA 125: 22 CA 27.29 : pending candace / lambda nl Micro: Urine cx 04/21 +Enterococcus faecalis & MSSA Blood cx 04/21 neg Blood cx 04/25 +Staph epidermidis in 05/10, represents contaminant Bone bx 04/25 cx pening Path report pending ImaginD Echo Bone scan 04/25 - Heterogeneous uptake of radiotracer in the right ischial bone where the patient has an expansile lytic lesion. No abnormal increased activity. Decreased radiotracer uptake may be related to rapid bone turnover. Findings suspicious for metastatic disease rather than infection. Renal cell carcinoma, thyroid carcinoma and breast carcinoma would be likely etiology in the event of metastatic etiology. 4. Favor neoplastic bony destructive process over infectious process. Renal US no renal mass CT Hip/Pelvis - 04/24 Aggressive osseous destruction and fragmented ossific densities and ossific debris with destruction of the right ischial tuberosity extending to the posterior column of the right acetabulum. Differential consideration includes destructive metastatic lesion with surrounding soft tissue mass with superinfection not excluded versus a combination of osteomyelitis and surrounding phlegmonous changes. However, there is no ulceration extending to this region making primary infection less likely. Destructive metastatic lesion and/or pathological fracture/osseous destruction is suspected. Pelvis xray 04/23: Diastasis left SI joint suggested fracture of the right inferior pubic ramus possible of pathologic fracture cannot be excluded, further evaluation with CT of the pelvis is recommended Renal US 04/[address] of the pelvis only shows lytic bone lesions of the right ischium along with soft tissue mass with nonspecific groundglass opacities bilateral lungs I have personally reviewed the past medical history, past surgical history, medications, social history, and family history, and I haveupdated the database accordingly. Allergies: Penicillins and Darvon [propoxyphene] Review of Systems: Review of Systems Constitutional: Positive for activity change. Negative for appetite change, chills and fever. HENT: Negative for congestion. Eyes: Negative for discharge. Respiratory: Negative for apnea and cough. Cardiovascular: Negative for chest pain. Gastrointestinal: Negative for abdominal pain and nausea. Endocrine: Negative for heat intolerance. Genitourinary: Negative for dysuria. Musculoskeletal: Positive for arthralgias. Skin: Negative for color change. Allergic/Immunologic: Negative for immunocompromised state. Neurological: Negative for headaches. Hematological: Negative for adenopathy. Psychiatric/Behavioral: Negative for agitation. Physical Examination : Physical Exam Constitutional: Appearance: Normal appearance. She is obese. She is not ill-appearing or diaphoretic. HENT: Head: Normocephalic and atraumatic. Nose: No congestion or rhinorrhea. Comments: Nasal canula Mouth/Throat: Mouth: Mucous membranes are moist. Eyes: Conjunctiva/sclera: Conjunctivae normal. Neck: Musculoskeletal: Neck supple. No muscular tenderness. Cardiovascular: Rate and Rhythm: Normal rate and regular rhythm. Heart sounds: Normal heart sounds. No murmur. Pulmonary: Effort: No respiratory distress. Breath sounds: Normal breath sounds. Abdominal: Palpations: Abdomen is soft. Tenderness: There is no abdominal tenderness. There is no guarding. Genitourinary: Comments: Urine kelly Musculoskeletal: General: No swelling or deformity. Skin: General: Skin is dry. Coloration: Skin is not jaundiced. Neurological: Mental Status: She is oriented to person, place, and time. Mental status is at baseline. Cranial Nerves: No cranial nerve deficit. Psychiatric: Mood and Affect: Mood normal. Thought Content: Thought content normal. Past Medical History: Past Medical History: Diagnosis Date MARCIE (acute kidney injury) ([facility]) 04/21/2020 Anemia Anxiety Bipolar 1 disorder ([facility]) Cellulitis bilateral legs COVID-19 11/2019 Diabetes mellitus ([facility]) DVT (deep venous thrombosis) ([facility]) 2014 Hypertension Migraine Obesity 01/07/2017 BMI 67.5 PE (pulmonary thromboembolism) ([facility]) 2015 Pelvis fracture ([facility]) 01/2020 Past Surgical History: Past Surgical History: Procedure Laterality Date SECTION CHOLECYSTECTOMY HC PICC POWERPIC TRIPLE 04/21/2020 IR BIOPSY BONE NEEDLE SUPERFCL 04/25/2020 IR BIOPSY BONE NEEDLE SUPERFCL 04/25/2020 Steph Veliz MD [facility] SPECIAL PROCEDURES TONSILLECTOMY Medications: miconazole Topical BID cefTRIAXone (ROCEPHIN) IV 2 g Intravenous Q24H oxyCODONE-acetaminophen 1 tablet Oral Once [Held by provider] amLODIPine 5 mg Oral Daily megestrol 40 mg Oral Daily [Held by provider] metoprolol tartrate 25 mg Oral BID OXcarbazepine 300 mg Oral QPM pantoprazole 40 mg Oral QAM AC sertraline 50 mg Oral Daily Vitamin D 6,000 Units Oral Daily sodium chloride flush 10 mL Intravenous 2 times per day insulin lispro 0-12 Units Subcutaneous TID WC insulin lispro 0-6 Units Subcutaneous Nightly heparin (porcine) 10,000 Units Subcutaneous 3 times per day Social History: Social History Socioeconomic History Marital status: Spouse name: steph Number of children: 1 Years of education: Not on file Highest education level: Not on file Occupational History Not on file Social Needs Financial resource strain: Not on file Food insecurity Worry: Not on file Inability: Not on file Transportation needs Medical: Not on file Non-medical: Not on file Tobacco Use Smoking status: Never Smoker Smokeless tobacco: Never Used Substance and Sexual Activity Alcohol use: No Drug use: No Sexual activity: Not on file Lifestyle Physical activity Days per week: Not on file Minutes per session: Not on file Stress: Not on file Relationships Social connections Talks on phone: Not on file Gets together: Not on file Attends episcopal service: Not on file Active member of club or organization: Not on file Attends meetings of clubs or organizations: Not on file Relationship status: Not on file Intimate partner violence Fear of current or ex partner: Not on file Emotionally abused: Not on file Physically abused: Not on file Forced sexual activity: Not on file Other Topics Concern Not on file Social History Narrative Lives With: Spouse Type of Home: House--Home Layout: One level Home Access: Stairs to enter without rails--Entrance Stairs - Number of Steps: 2 Bathroom Shower/Tub: Walk-in shower Bathroom Equipment: (no AD) Home Equipment: (no AD) ADL Assistance: Independent Homemaking Assistance: Independent Ambulation Assistance: Independent Transfer Assistance: Independent Active Stove Refinisher: Yes Lives w family Family History: Family History Problem Relation Age of Onset Stroke Mother Diabetes Father Hypertension Father High Cholesterol Father Medical Decision Making: I have independently reviewed/ordered the following labs: CBC with Differential: Recent Labs 04/26/20 0512 04/27/20 0713 WBC 8.7 9.0 HGB 8.5* 9.4* HCT 29.1* 30.4* PLT 183 See Reflexed IPF Result BMP: Recent Labs 04/26/20 0512 04/27/20 0713 NA 135 137 K 5.1 5.1 CL 106 106 CO2 21 21 BUN 15 13 CREATININE 0.63 0.65 Hepatic Function Panel: Recent Labs 04/25/20 0619 PROT 5.4* LABALBU 2.6* BILIDIR <0.08 IBILI CANNOT BE CALCULATED BILITOT 0.23* ALKPHOS 89 ALT 20 AST 26 No results for input(s): RPR in the last 72 hours. No results for input(s): HIV in the last 72 hours. No results for input(s): BC in the last 72 hours. Lab Results Component Value Date CREATININE 0.65 04/27/2020 GLUCOSE 86 04/27/2020 Detailed results: Thank you for allowing us to participate in the care of this patient.Please call with questions. This note is created with the assistance of a speech recognition program. While intending to generate adocument that actually reflects the content of the visit, the document can still have some errors including those of syntax and sound a like substitutions which may escape proof reading. It such instances, actual meaningcan be extrapolated by contextual diversion. Smith Diaz MD Office: Perfect serve / office [phone] I have discussed the care of the patient, including pertinent history and exam findings, with the student. I have seen and examined the patient and the mays elements of all parts of the encounter havebeen performed by me. I agree with the assessment, plan and orders as documented by the student Smith Diaz, Infectious Diseases * Jesús Nguyen MD - 04/27/2020 10:46 AM EST [facility] Office: [phone] Matthew Green DO, Niko Winn DO, Eli Lamb DO, Gabriel Cosme DO, Britney Hooper MD, Viviana Stern MD, Vanessa Yi MD, Kati Mcdaniel MD, Don Anderson MD, Rosalia Espinoza MD, MD Sharmaine, Dandy Go MD, Edson Jackson MD, Reji Houser DO, Trupti Martínez MD, Jhoana Nelson MD, Cristhian Mccoy DO, Salvador Kirby MD, Luci Garcia DO, Javy Minaya MD, MD Ana, Tatyana Velasquez, DECK SUPERVISOR, Radha Conde, DECK SUPERVISOR, Fallon Morrissey, DECK SUPERVISOR, Penny Medina, [facility],Andi James, DECK SUPERVISOR, Iraida Samson, DECK SUPERVISOR, Wendy Stephen, DECK SUPERVISOR, Kelly Wallace, DECK SUPERVISOR, Divine Porter, DECK SUPERVISOR, Ottoniel Lozano PA-C, Lisa Thomas, [facility], Zoraida Sue, DECK SUPERVISOR, Zuly Rowe, DECK SUPERVISOR, Marychuy Masterson, DECK SUPERVISOR, Joana Pichardo, DECK SUPERVISOR, Ebony Cole, DECK SUPERVISOR [facility] IN-PATIENT SERVICE [facility] Progress Note 04/27/2020 10:46 AM Name: Lisa Mcdaniels Acct: [id number] Room: 0428/0428-02 IP Day: 6 Admit Date: 04/21/2020 12:10 PM PCP: No primary care provider on file. Code Status: Full Code Subjective: C/C: hip pain Interval History Status: not changed. No issues overnight On IV antibiotics per ID Underwent biopsy Results still pending No other complaints Working on placement Brief History: Lisa Mcdaniels is a 39 y.o. F who was directly admitted from [facility] ED Apr 21 for the management of Septic shock (HCC). Pt tested + Covid in November and was treated with supplemental oxygen. On Feb 04 she fell and sustained a rt pelvic fracture. Pt was discharged to a SNF where she recently tested Neg for Covid. She left the facility Apr 18. Since dc pt has been unable to walk due to rt hip pain. She reports H/A, F/C and nausea. On presentation to the ED pt was tachycardic and hypotensive. She was tx with 2L Saline, Levophed, Ceftaroline, Clindamycin & Fentanyl. Pt reported covid + but there was no documentation sent to substantiate this. Patient cleared out of isolation precautions per infectious disease Levophed weaned R hip pain persistent- unable to complete MRI due to body habitus, ortho consulted Review of Systems: Constitutional: negative for chills, fevers, sweats Respiratory: negative for cough, dyspnea on exertion, shortness of breath, wheezing Cardiovascular: negative for chest pain, chest pressure/discomfort, lower extremity edema, palpitations Gastrointestinal: negative for abdominal pain, constipation, diarrhea, nausea, vomiting Neurological: negative for dizziness, headache Medications: Allergies: Allergies Allergen Reactions Penicillins Swelling tolerated cefepime 04/2020 Darvon [Propoxyphene] Hives Current Meds: Scheduled Meds: miconazole Topical BID cefTRIAXone (ROCEPHIN) IV 2 g Intravenous Q24H oxyCODONE-acetaminophen 1 tablet Oral Once [Held by provider] amLODIPine 5 mg Oral Daily megestrol 40 mg Oral Daily [Held by provider] metoprolol tartrate 25 mg Oral BID OXcarbazepine 300 mg Oral QPM pantoprazole 40 mg Oral QAM AC sertraline 50 mg Oral Daily Vitamin D 6,000 Units Oral Daily sodium chloride flush 10 mL Intravenous 2 times per day insulin lispro 0-12 Units Subcutaneous TID WC insulin lispro 0-6 Units Subcutaneous Nightly heparin (porcine) 10,000 Units Subcutaneous 3 times per day Continuous Infusions: dextrose sodium chloride 50 mL/hr at 04/26/20 1235 PRN Meds: ALPRAZolam, glucose, dextrose, glucagon (rDNA), dextrose, albuterol, albuterol sulfate HFA, traMADol, HYDROcodone 5 mg - acetaminophen OR HYDROcodone 5 mg - acetaminophen, sodium chloride flush Data: Past Medical History: has a past medical history of MARCIE (acute kidney injury) ([facility]), Anemia, Anxiety, Bipolar 1 disorder (HCC), Cellulitis, COVID-19, Diabetes mellitus (HCC), DVT (deep venous thrombosis) ([facility]), Hypertension, Migraine, Obesity, PE (pulmonary thromboembolism) ([facility]), and Pelvis fracture ([facility]). Social History: reports that she has never smoked. She has never used smokeless tobacco. She reports that she does not drink alcohol or use drugs. Family History: Family History Problem Relation Age of Onset Stroke Mother Diabetes Father Hypertension Father High Cholesterol Father Vitals: BP 130/64 Pulse 81 Comment: Simultaneous filing. User may not have seen previous data. Temp 98.9 F (37.2 C) (Temporal) Resp 15 Ht 5' 9 (1.753 m) Wt (!) 415 lb (188.2 kg) SpO2 98% BMI 61.28 kg/m Temp (24hrs), Av.7 F (37.1 C), Min:97.9 F (36.6 C), Max:99.8 F (37.7 C) Recent Labs 04/26/20 0808 04/26/20 1207 04/26/20 1654 04/27/20 0759 POCGLU 77 91 104 76 I/O (24Hr): Intake/Output Summary (Last 24 hours) at 04/27/2020 1046 Last data filed at 04/27/2020 0518 Gross per 24 hour Intake 2584 ml Output 3000 ml Net -416 ml Labs: Hematology: Recent Labs 04/24/20203004/25/20 0001 04/25/2019 04/26/20 0512 04/27/20 0713 WBC -- -- 7.0 8.7 9.0 RBC -- -- 3.57* 3.42* 3.76* HGB -- -- 9.0* 8.5* 9.4* HCT -- -- 31.0* 29.1* 30.4* MCV -- -- 86.8 85.1 80.9* MCH -- -- 25.2 24.9* 25.0* MCHC -- -- 29.0 29.2 30.9 RDW -- -- 19.9* 19.9* 19.7* PLT -- -- 180 183 See Reflexed IPF Result MPV -- -- 10.5 10.0 NOT REPORTED CRP -- 29.6* -- -- -- INR 1.0 -- -- -- -- Chemistry: Recent Labs 04/25/2061804/26/20 0512 04/27/20 0713 NA 138 135 137 K 4.7 5.1 5.1 CL 110* 106 106 CO2 21 21 21 GLUCOSE 81 85 86 BUN 20 15 13 CREATININE 0.63 0.63 0.65 ANIONGAP 7* 8* 10 LABGLOM >60 >60 >60 GFRAA >60 >60 >60 CALCIUM 8.1* 8.3* 8.5* Recent Labs 04/25/20 0619 04/25/20 0619 04/25/20 1629 04/25/20 2025 04/26/20 0808 04/26/20 1207 04/26/20 1654 04/27/20 0759 PROT 5.4* -- -- -- -- -- -- -- LABALBU 2.6* -- -- -- -- -- -- -- TSH 7.03* -- -- -- -- -- -- -- AST 26 -- -- -- -- -- -- -- ALT 20 -- -- -- -- -- -- -- ALKPHOS 89 -- -- -- -- -- -- -- BILITOT 0.23* -- -- -- -- -- -- -- BILIDIR <0.08 -- -- -- -- -- -- -- POCGLU -- < > 96 95 77 91 104 76 < > = values in this interval not displayed. ABG:No results found for: POCPH, PHART, PH, POCPCO2, GXO0LWZ, PCO2, POCPO2, PO2ART, PO2, POCHCO3, RIL2MDC, HCO3, NBEA, PBEA, BEART, BE, THGBART, THB, [id number], [id number], [id number], O2SAT, FIO2 Lab Results Component Value Date/Time SPECIAL NOT REPORTED 04/25/2020 12:00 PM Lab Results Component Value Date/Time CULTURE NO GROWTH 1 DAY 04/25/2020 12:00 PM Radiology: Xr Chest (single View Frontal) Result Date: 04/24/2020 Right basilar atelectasis versus infiltrate. Evidence of pulmonary vascular congestion Widening of the mediastinum. Consider CT for further workup if clinically indicated Ct Pelvis W Contrast Additional Contrast? None Result Date: 04/24/2020 1. Aggressive osseous destruction and fragmented ossific densities and ossific debris with destruction of the right ischial tuberosity extending to the posterior column of the right acetabulum. Differential consideration includes destructive metastatic lesion with surrounding soft tissue mass with s uperinfection not excluded versus a combination of osteomyelitis and surrounding phlegmonous changes. However, there is no ulceration extending to this region making primary infection less likely. Destructive metastatic lesion and/or pathological fracture/osseous destruction is suspected. 2. Moderate bilateral hip osteoarthrosis. 3. Moderate sigmoid colonic diverticulosis. 4. Mild degenerative changes at the pubic symphysis and lumbar spine. 5. Right adnexal 6.3 cm dermoid cyst. 6. Large fat-containing anterior abdominal wall hernia measuring 12.3 x 13 cm. The findings were sent to the Radiology Results Communication Center at 10:39 am on 04/24/2020to be communicated to a licensed caregiver. Nm Bone Scan 3 Phase Result Date: 04/25/2020 1. Study limited due to patient's condition and morbid obesity. 2. No definite evidence of hyperemia. 3. Heterogeneous uptake of radiotracer in the right ischial bone where the patient has an expansile lytic lesion. No abnormal increased activity. Decreased radiotracer uptake may be related to rapid bone turnover. Findings suspicious for metastatic disease rather than infection. Renal cell carcinoma, thyroid carcinoma and breast carcinoma would be likely etiology in the event of metastatic etiology. 4. Favor neoplastic bony destructive process over infectious process. RECOMMENDATIONS: Tissue sampling may be required for definitive diagnosis. Given findings suspicious for lytic metastatic disease, suggest assessment for thyroid and breast cancer. Ultrasound of the kidneys was performed demonstrating no renal mass. Us Renal Limited Result Date: 04/22/2020 Essentially unremarkable renal ultrasound Xr Pelvis (min 3 Views) Result Date: 04/23/2020 Diastasis left SI joint suggested fracture of the right inferior pubic ramus possible of pathologicfracture cannot be excluded there is a inadequate evaluation of the pelvis due to technique and further evaluation with CT of the pelvis is recommended Ct Hip Right W Contrast Result Date: 04/24/2020 1. Aggressive osseous destruction and fragmented ossific densities and ossific debris with destruction of the right ischial tuberosity extending to the posterior column of the right acetabulum. Differential consideration includes destructive metastatic lesion with surrounding soft tissue mass with s uperinfection not excluded versus a combination of osteomyelitis and surrounding phlegmonous changes. However, there is no ulceration extending to this region making primary infection less likely. Destructive metastatic lesion and/or pathological fracture/osseous destruction is suspected. 2. Moderate bilateral hip osteoarthrosis. 3. Moderate sigmoid colonic diverticulosis. 4. Mild degenerative changes at the pubic symphysis and lumbar spine. 5. Right adnexal 6.3 cm dermoid cyst. 6. Large fat-containing anterior abdominal wall hernia measuring 12.3 x 13 cm. The findings were sent to the Radiology Results Communication Center at 10:39 am on 04/24/2020to be communicated to a licensed caregiver. Ir Biopsy Superficial Bone Result Date: 04/25/2020 Successful fluoroscopy guided core biopsy of the right ischial lesion. Physical Examination: General appearance: alert, cooperative and no distress, obese Mental Status: oriented to person, place and time and normal affect Lungs: clear to auscultation bilaterally, normal effort Heart: regular rate and rhythm Abdomen: soft, nontender, nondistended, normal bowel sounds Extremities: no edema, redness, tenderness in the calves Skin: no gross lesions, rashes, induration Assessment: Hospital Problems Last Modified POA * (Principal) Septic shock (HCC) 04/21/2020 Yes Diabetes (HCC) (Chronic) 04/21/2020 Yes Morbid obesity due to excess calories (HCC) (Chronic) 04/21/2020 Yes Lactic acid acidosis 04/21/2020 Yes Pelvic fracture (HCC) (Chronic) 04/21/2020 Yes Non-traumatic rhabdomyolysis 04/21/2020 Yes COVID-19 04/21/2020 Yes Overview Signed 04/21/2020 6:13 PM by Penny Medina APRN - MILLER APPRENTICE + Covid November 2019 MARCIE (acute kidney injury) (HCC) 04/21/2020 Yes Plan: 1. Pathologic right hip fracture/lesion:Ortho, ID and Heme/Onc consulted - s/p IR guided aspiration/analysis, probable metastatic illness per onc notes. Echo pending. Biopsy pending 2. E. coli UTI: Continue Levaquin 3. History of COVID-19 viral infection: no need for isolation per ID 4. Depression with anxiety: Continue Xanax, Zoloft 5. Diabetes mellitus type 2: monitor glucose, continue insulin correction 6. Septic shock: Resolved - s/p levophed 7. MARCIE - resolved 8. Morbid obesity 9. Disposition: awaiting placement. DC when cleared by all services Jesús Nguyen MD 04/27/2020 10:46 AM * Jesús Nguyen MD - 04/26/2020 12:04 PM EST [facility] Office: [phone] Matthew Green DO, Niko Winn DO, Eli Lamb DO, Gabriel Cosme DO, Britney Hooper MD, Viviana Stern MD, Vanessa Yi MD, Kati Mcdaniel MD, Don Anderson MD, Rosalia Espinoza MD, MD Sharmaine, Dandy Go MD, Edson Jackson MD, Reji Houser DO, Trupti Martínez MD, Jhoana Nelson MD, Cristhian Mccoy DO, Salvador Kirby MD, Luci Garcia DO, Javy Minaya MD, MD Ana, Tatyana Velasquez, DECK SUPERVISOR, Radha Conde, DECK SUPERVISOR, Fallon Morrissey, DECK SUPERVISOR, Penny Medina, MILLER APPRENTICE,Andi James, DECK SUPERVISOR, Iraida Samson, DECK SUPERVISOR, Wendy Stephen, DECK SUPERVISOR, Kelly Wallace, DECK SUPERVISOR, Divine Porter, DECK SUPERVISOR, Ottoniel Lozano PA-C, Lisa Thomas, JULISSA, Zoraida Sue, DECK SUPERVISOR, Zuly Rowe, DECK SUPERVISOR, Marychuy Masterson, DECK SUPERVISOR, Joana Pichardo, DECK SUPERVISOR, Ebony Cole, DECK SUPERVISOR [facility] IN-PATIENT SERVICE [facility] Progress Note 04/26/2020 12:04 PM Name: Lisa Mcdaniels Acct: [id number] Room: [facility]04[facility] Day: 5 Admit Date: 04/21/2020 12:10 PM PCP: No primary care provider on file. Code Status: Full Code Subjective: C/C: hip pain Interval History Status: not changed. No issues overnight On IV antibiotics per ID Underwent biopsy yesterday Results pending States she is feeling better Working on placement Brief History: Lisa Mcdaniels is a 39 y.o. F who was directly admitted from [facility] ED Apr 21 for the management of Septic shock (HCC). Pt tested + Covid in November and was treated with supplemental oxygen. On Feb 04 she fell and sustained a rt pelvic fracture. Pt was discharged to a SNF where she recently tested Neg for Covid. She left the facility Apr 18. Since dc pt has been unable to walk due to rt hip pain. She reports H/A, F/C and nausea. On presentation to the ED pt was tachycardic and hypotensive. She was tx with 2L Saline, Levophed, Ceftaroline, Clindamycin & Fentanyl. Pt reported covid + but there was no documentation sent to substantiate this. Patient cleared out of isolation precautions per infectious disease Levophed weaned R hip pain persistent- unable to complete MRI due to body habitus, ortho consulted Review of Systems: Constitutional: negative for chills, fevers, sweats Respiratory: negative for cough, dyspnea on exertion, shortness of breath, wheezing Cardiovascular: negative for chest pain, chest pressure/discomfort, lower extremity edema, palpitations Gastrointestinal: negative for abdominal pain, constipation, diarrhea, nausea, vomiting Neurological: negative for dizziness, headache Medications: Allergies: Allergies Allergen Reactions Penicillins Swelling tolerated cefepime 04/2020 Darvon [Propoxyphene] Hives Current Meds: Scheduled Meds: cefTRIAXone (ROCEPHIN) IV 2 g Intravenous Q24H oxyCODONE-acetaminophen 1 tablet Oral Once [Held by provider] amLODIPine 5 mg Oral Daily megestrol 40 mg Oral Daily [Held by provider] metoprolol tartrate 25 mg Oral BID OXcarbazepine 300 mg Oral QPM pantoprazole 40 mg Oral QAM AC sertraline 50 mg Oral Daily Vitamin D 6,000 Units Oral Daily sodium chloride flush 10 mL Intravenous 2 times per day insulin lispro 0-12 Units Subcutaneous TID WC insulin lispro 0-6 Units Subcutaneous Nightly heparin (porcine) 10,000 Units Subcutaneous 3 times per day Continuous Infusions: dextrose sodium chloride 50 mL/hr at 04/22/206 PRN Meds: ALPRAZolam, glucose, dextrose, glucagon (rDNA), dextrose, albuterol, albuterol sulfate HFA, traMADol, HYDROcodone 5 mg - acetaminophen OR HYDROcodone 5 mg - acetaminophen, sodium chloride flush Data: Past Medical History: has a past medical history of MARCIE (acute kidney injury) (HCC), Anemia, Anxiety, Bipolar 1 disorder (HCC), Cellulitis, COVID-19, Diabetes mellitus (HCC), DVT (deep venous thrombosis) (HCC), Hypertension, Migraine, Obesity, PE (pulmonary thromboembolism) (HCC), and Pelvis fracture (HCC). Social History: reports that she has never smoked. She has never used smokeless tobacco. She reports that she does not drink alcohol or use drugs. Family History: Family History Problem Relation Age of Onset Stroke Mother Diabetes Father Hypertension Father High Cholesterol Father Vitals: BP 135/73 Pulse 85 Temp 97.9 F (36.6 C) (Oral) Resp 13 Ht 5' 9 (1.753 m) Wt (!) 415 lb (188.2 kg) SpO2 99% BMI 61.28 kg/m Temp (24hrs), Av.1 F (36.7 C), Min:97.3 F (36.3 C), Max:99.2 F (37.3 C) Recent Labs 04/25/20 1331 04/25/20 1629 04/25/20202404/26/20 0808 POCGLU 71 96 95 77 I/O (24Hr): Intake/Output Summary (Last 24 hours) at 04/26/2020 1204 Last data filed at 04/26/2020 0711 Gross per 24 hour Intake 1764 ml Output 825 ml Net 939 ml Labs: Hematology: Recent Labs 04/23/20 1838 04/24/20 0653 04/24/20203004/25/20 0001 04/25/20 0619 04/26/20 0512 WBC -- 7.6 -- -- 7.0 8.7 RBC -- 3.58* -- -- 3.57* 3.42* HGB -- 9.1* -- -- 9.0* 8.5* HCT -- 31.1* -- -- 31.0* 29.1* MCV -- 86.9 -- -- 86.8 85.1 MCH -- 25.4 -- -- 25.2 24.9* MCHC -- 29.3 -- -- 29.0 29.2 RDW -- 20.3* -- -- 19.9* 19.9* PLT -- 223 -- -- 180 183 MPV -- 10.4 -- -- 10.5 10.0 CRP 72.7* -- -- 29.6* -- -- INR -- -- 1.0 -- -- -- Chemistry: Recent Labs 04/24/20 0653 04/25/20 0619 04/26/20 0512 NA 141 138 135 K 4.8 4.7 5.1 CL 109* 110* 106 CO2 21 21 21 GLUCOSE 96 81 85 BUN 27* 20 15 CREATININE 0.82 0.63 0.63 ANIONGAP 11 7* 8* LABGLOM >60 >60 >60 GFRAA >60 >60 >60 CALCIUM 8.2* 8.1* 8.3* Recent Labs 04/24/20 2102 04/25/20 0619 04/25/20 0637 04/25/20 1331 04/25/20 1629 04/25/20 20204/26/20 0808 PROT -- 5.4* -- -- -- -- -- LABALBU -- 2.6* -- -- -- -- -- TSH -- 7.03* -- -- -- -- -- AST -- 26 -- -- -- -- -- ALT -- 20 -- -- -- -- -- ALKPHOS -- 89 -- -- -- -- -- BILITOT -- 0.23* -- -- -- -- -- BILIDIR -- <0.08 -- -- -- -- -- POCGLU 90 -- 79 71 96 95 77 ABG:No results found for: POCPH, PHART, PH, POCPCO2, [id number], PCO2, POCPO2, PO2ART, PO2, POCHCO3, LUS3QIK, HCO3, NBEA, PBEA, BEART, BE, THGBART, THB, [id number], [id number], [id number], O2SAT, FIO2 Lab Results Component Value Date/Time SPECIAL NOT REPORTED 04/25/2020 12:00 PM Lab Results Component Value Date/Time CULTURE PENDING 04/25/2020 12:00 PM Radiology: Xr Chest (single View Frontal) Result Date: 04/24/2020 Right basilar atelectasis versus infiltrate. Evidence of pulmonary vascular congestion Widening of the mediastinum. Consider CT for further workup if clinically indicated Ct Pelvis W Contrast Additional Contrast? None Result Date: 04/24/2020 1. Aggressive osseous destruction and fragmented ossific densities and ossific debris with destruction of the right ischial tuberosity extending to the posterior column of the right acetabulum. Differential consideration includes destructive metastatic lesion with surrounding soft tissue mass with s uperinfection not excluded versus a combination of osteomyelitis and surrounding phlegmonous changes. However, there is no ulceration extending to this region making primary infection less likely. Destructive metastatic lesion and/or pathological fracture/osseous destruction is suspected. 2. Moderate bilateral hip osteoarthrosis. 3. Moderate sigmoid colonic diverticulosis. 4. Mild degenerative changes at the pubic symphysis and lumbar spine. 5. Right adnexal 6.3 cm dermoid cyst. 6. Large fat-containing anterior abdominal wall hernia measuring 12.3 x 13 cm. The findings were sent to the Radiology Results Communication Center at 10:39 am on 04/24/2020to be communicated to a licensed caregiver. Nm Bone Scan 3 Phase Result Date: 04/25/2020 1. Study limited due to patient's condition and morbid obesity. 2. No definite evidence of hyperemia. 3. Heterogeneous uptake of radiotracer in the right ischial bone where the patient has an expansile lytic lesion. No abnormal increased activity. Decreased radiotracer uptake may be related to rapid bone turnover. Findings suspicious for metastatic disease rather than infection. Renal cell carcinoma, thyroid carcinoma and breast carcinoma would be likely etiology in the event of metastatic etiology. 4. Favor neoplastic bony destructive process over infectious process. RECOMMENDATIONS: Tissue sampling may be required for definitive diagnosis. Given findings suspicious for lytic metastatic disease, suggest assessment for thyroid and breast cancer. Ultrasound of the kidneys was performed demonstrating no renal mass. Us Renal Limited Result Date: 04/22/2020 Essentially unremarkable renal ultrasound Xr Pelvis (min 3 Views) Result Date: 04/23/2020 Diastasis left SI joint suggested fracture of the right inferior pubic ramus possible of pathologicfracture cannot be excluded there is a inadequate evaluation of the pelvis due to technique and further evaluation with CT of the pelvis is recommended Ct Hip Right W Contrast Result Date: 04/24/2020 1. Aggressive osseous destruction and fragmented ossific densities and ossific debris with destruction of the right ischial tuberosity extending to the posterior column of the right acetabulum. Differential consideration includes destructive metastatic lesion with surrounding soft tissue mass with s uperinfection not excluded versus a combination of osteomyelitis and surrounding phlegmonous changes. However, there is no ulceration extending to this region making primary infection less likely. Destructive metastatic lesion and/or pathological fracture/osseous destruction is suspected. 2. Moderate bilateral hip osteoarthrosis. 3. Moderate sigmoid colonic diverticulosis. 4. Mild degenerative changes at the pubic symphysis and lumbar spine. 5. Right adnexal 6.3 cm dermoid cyst. 6. Large fat-containing anterior abdominal wall hernia measuring 12.3 x 13 cm. The findings were sent to the Radiology Results Communication Center at 10:39 am on 04/24/2020to be communicated to a licensed caregiver. Ir Biopsy Superficial Bone Result Date: 04/25/2020 Successful fluoroscopy guided core biopsy of the right ischial lesion. Physical Examination: General appearance: alert, cooperative and no distress, obese Mental Status: oriented to person, place and time and normal affect Lungs: clear to auscultation bilaterally, normal effort Heart: regular rate and rhythm Abdomen: soft, nontender, nondistended, normal bowel sounds Extremities: no edema, redness, tenderness in the calves Skin: no gross lesions, rashes, induration Assessment: Hospital Problems Last Modified POA * (Principal) Septic shock (HCC) 04/21/2020 Yes Diabetes (HCC) (Chronic) 04/21/2020 Yes Morbid obesity due to excess calories (HCC) (Chronic) 04/21/2020 Yes Lactic acid acidosis 04/21/2020 Yes Pelvic fracture (HCC) (Chronic) 04/21/2020 Yes Non-traumatic rhabdomyolysis 04/21/2020 Yes COVID-19 04/21/2020 Yes Overview Signed 04/21/2020 6:13 PM by Penny Medina APRN - MILLER APPRENTICE + Covid November 2019 MARCIE (acute kidney injury) (HCC) 04/21/2020 Yes Plan: 1. Pathologic right hip fracture/lesion:Ortho, ID and Heme/Onc consulted - s/p IR guided aspiration/analysis, probable metastatic illness per onc notes. Echo ordered. Biopsy pending 2. E. coli UTI: Continue Levaquin 3. History of COVID-19 viral infection: Removed out isolation precautions per infectious disease recommendations 4. Depression with anxiety: Continue Xanax, Zoloft 5. Diabetes mellitus type 2: monitor glucose, continue insulin correction 6. Septic shock: Resolved - s/p levophed 7. Nontraumatic rhabdo: resolved, nephrology signed off. Discontinue IV fluids 8. Morbid obesity 9. GI/DVT prophylaxis: Protonix, heparin 10. Disposition: working on placement 11. DC when cleared by all services Jesús Nguyen MD 04/26/2020 12:04 PM * Smith Diaz MD - 04/26/2020 9:19 AM EST [facility] - Infectious diseases evaluation admission date 04/21/2020 reason for consultation: covid + Impression : Current: Remote Covid, persistent positive test, + AB, no clinical covid illness, isolation removed Septic shock - resolved CRP elevation Acute renal failure improving Hyperkalemia elevated CPK Morbid obesity R ischial bone lytic lesions and a soft tissue mass Right hip pathological fracture 01/2020. No sx, ambulating Allergy severe to PNC swelling and SOB tolerated cefepime 04/25 SCN bacteremia contamination U cx Enterococcus faecalis & MSSA, presumed UTI, BC neg Discussion / summary of stay / plan of care Recommendations U cx Enterococcus faecalis & MSSA, presumed UTI Stopped vancomycin and cefepime 04/24 Switch AB back to ceftriaxone 2 g daily Still pend echo due to SA in urine Lytic ischial lesions - IR to biopsy for cx and path, necrotic tissue seen pend cx and path Bone scan - suspicious of metastatic disease rather than infectious disease, renal cell, breast or thyroid are suggested by reading Get oncology to [facility] appropriately Infection Control Recommendations Zebulon Precautions Antimicrobial Stewardship Recommendations Simplification of therapy Targeted therapy IV to oral conversion Per Kg dosing Coordination ofOutpatient Care: Estimated Length of IV antimicrobials: Patient will need Midline / picc Catheter Insertion: Patient will need SNF: Patient will need outpatient wound care: History of Present Illness: Initial history: Lisa Mcdaniels is a 39 y.o.-year-old female history of Covid in November and needed oxygen at thetime Fracture of the right pelvis after a fall in January, treated conservatively and sent to the SNF and left Home improved 04/18 - arriving home Could not walk the steps and sat down x 2 days before she got attention. this was due to pain of the right hip - presented w headache nausea to the emergency room, was tachycardic hypotensive needing oxygen and pressors. ARF and elevated CK and K. Per report the patient was tested Covid positive - covid AB + as well Procalcitonin 1.5 and white count of 16, creatinine elevated 6 and CRP 19 She was also noticed to have a potassium of 7 Chest x-ray bilateral hazy infiltrates CT of the pelvis only shows lytic bone lesions of the right ischium along with soft tissue mass with nonspecific groundglass opacities bilateral lungs The patient was admitted with septic shock started on Levophed, but due to the positive Covid she was admitted to the Covid unit 04/22 creat better - K better - off pressures No cellulitis Leiva from [facility] was removed - urine seemed cloudy w sediments but she denies dysuria and UAwas contaminated initially, then repeat shows no UTI signs. Interval changes 04/26/2020 Patient Vitals for the past 8 hrs: BP Temp Temp src Pulse Resp SpO2 04/26/20 0806 (!) 141/67 99.2 F (37.3 C) Temporal 85 18 99 % 04/26/20 0353 (!) 142/73 97.5 F (36.4 C) Temporal 76 11 99 % Seen and examined at bedside. States hip pain much improved since admission CRP also better w AB BC + SCN x 1 suggesting contamination rather Denies shortness of breath, fever, cough, and abdominal pain at this time. Afebrile, white count 8.7 Blood cx 04/25 x2: Staph epidermidis in 1 out of 2 - represents contaminant Bone scan shows radiotracer uptake to right ischium and diminished uptake that may be related to rapid bone turnover. Findings suggestive of metastatic disease rather than infectious disease. Recommended assessment for thyroid and breast cancer. Renal US - no mass. Ct right hip and pelvis suggesting a right ischial lytic lesions and soft tissue mass, pathologicalfracture- IR aspirated for biopsy cx neg so far and path still is pend Still has pain right hip, CT remote hospital shows lytic lesions and some soft tissue mass - concernes for pathological fracture - no films on MRI on file Urine cx 04/21 +Enterococcus faecalis & MSSA candace / lambda nl Summary of relevant labs: Labs: WBC 12 - 8.5 - 8.2 - 7.6 - 7 - 8.7 Procal 1.71 Creat 2.57 - 1.86 - 1.42 CRP 237.5 - 72.4 - 29 Fibrinogen 605 CEA: 2.2 Ca 19-9: 14 AFP: 4.8 CA 125: 22 CA 27.29 : pending candace / lambda nl Micro: Urine cx 04/21 +Enterococcus faecalis & MSSA Blood cx 04/21 neg Blood cx 04/25 +Staph epidermidis in 1/2, represents contaminant Bone bx 04/25 cx pening Path report pending ImaginD Echo Bone scan 04/25 - Heterogeneous uptake of radiotracer in the right ischial bone where the patient has an expansile lytic lesion. No abnormal increased activity. Decreased radiotracer uptake may be related to rapid bone turnover. Findings suspicious for metastatic disease rather than infection. Renal cell carcinoma, thyroid carcinoma and breast carcinoma would be likely etiology in the event of metastatic etiology. 4. Favor neoplastic bony destructive process over infectious process. Renal US no renal mass CT Hip/Pelvis - 04/24 Aggressive osseous destruction and fragmented ossific densities and ossific debris with destruction of the right ischial tuberosity extending to the posterior column of the right acetabulum. Differential consideration includes destructive metastatic lesion with surrounding soft tissue mass with superinfection not excluded versus a combination of osteomyelitis and surrounding phlegmonous changes. However, there is no ulceration extending to this region making primary infection less likely. Destructive metastatic lesion and/or pathological fracture/osseous destruction is suspected. Pelvis xray 04/23: Diastasis left SI joint suggested fracture of the right inferior pubic ramus possible of pathologic fracture cannot be excluded, further evaluation with CT of the pelvis is recommended Renal US 04/[address] of the pelvis only shows lytic bone lesions of the right ischium along with soft tissue mass with nonspecific groundglass opacities bilateral lungs I have personally reviewed the past medical history, past surgical history, medications, social history, and family history, and I haveupdated the database accordingly. Allergies: Penicillins and Darvon [propoxyphene] Review of Systems: Review of Systems Constitutional: Positive for activity change. Negative for appetite change, chills and fever. HENT: Negative for congestion. Eyes: Negative for discharge. Respiratory: Negative for apnea and cough. Cardiovascular: Negative for chest pain. Gastrointestinal: Negative for abdominal pain and nausea. Endocrine: Negative for heat intolerance. Genitourinary: Negative for dysuria. Musculoskeletal: Positive for arthralgias. Skin: Negative for color change. Allergic/Immunologic: Negative for immunocompromised state. Neurological: Negative for headaches. Hematological: Negative for adenopathy. Psychiatric/Behavioral: Negative for agitation. Physical Examination : Physical Exam Constitutional: Appearance: Normal appearance. She is obese. She is not ill-appearing or diaphoretic. HENT: Head: Normocephalic and atraumatic. Nose: No congestion or rhinorrhea. Comments: Nasal canula Mouth/Throat: Mouth: Mucous membranes are moist. Eyes: Conjunctiva/sclera: Conjunctivae normal. Neck: Musculoskeletal: Neck supple. No muscular tenderness. Cardiovascular: Rate and Rhythm: Normal rate and regular rhythm. Heart sounds: Normal heart sounds. No murmur. Pulmonary: Effort: No respiratory distress. Breath sounds: Normal breath sounds. Abdominal: Palpations: Abdomen is soft. Tenderness: There is no abdominal tenderness. There is no guarding. Genitourinary: Comments: Urine kelly Musculoskeletal: General: No swelling or deformity. Skin: General: Skin is dry. Coloration: Skin is not jaundiced. Neurological: Mental Status: She is oriented to person, place, and time. Mental status is at baseline. Cranial Nerves: No cranial nerve deficit. Psychiatric: Mood and Affect: Mood normal. Thought Content: Thought content normal. Past Medical History: Past Medical History: Diagnosis Date MARCIE (acute kidney injury) ([facility]) 04/21/2020 Anemia Anxiety Bipolar 1 disorder ([facility]) Cellulitis bilateral legs COVID-19 11/2019 Diabetes mellitus ([facility]) DVT (deep venous thrombosis) ([facility]) 2014 Hypertension Migraine Obesity 01/07/2017 BMI 67.5 PE (pulmonary thromboembolism) ([facility]) 2014 Pelvis fracture ([facility]) 01/2020 Past Surgical History: Past Surgical History: Procedure Laterality Date SECTION CHOLECYSTECTOMY HC PICC POWERPIC TRIPLE 04/21/2020 IR BIOPSY BONE NEEDLE SUPERFCL 04/25/2020 IR BIOPSY BONE NEEDLE SUPERFCL 04/25/2020 Steph Veliz MD [facility] SPECIAL PROCEDURES TONSILLECTOMY Medications: cefTRIAXone (ROCEPHIN) IV 2 g Intravenous Q24H oxyCODONE-acetaminophen 1 tablet Oral Once [Held by provider] amLODIPine 5 mg Oral Daily megestrol 40 mg Oral Daily [Held by provider] metoprolol tartrate 25 mg Oral BID OXcarbazepine 300 mg Oral QPM pantoprazole 40 mg Oral QAM AC sertraline 50 mg Oral Daily Vitamin D 6,000 Units Oral Daily sodium chloride flush 10 mL Intravenous 2 times per day insulin lispro 0-12 Units Subcutaneous TID WC insulin lispro 0-6 Units Subcutaneous Nightly heparin (porcine) 10,000 Units Subcutaneous 3 times per day Social History: Social History Socioeconomic History Marital status: Spouse name: steph Number of children: 1 Years of education: Not on file Highest education level: Not on file Occupational History Not on file Social Needs Financial resource strain: Not on file Food insecurity Worry: Not on file Inability: Not on file Transportation needs Medical: Not on file Non-medical: Not on file Tobacco Use Smoking status: Never Smoker Smokeless tobacco: Never Used Substance and Sexual Activity Alcohol use: No Drug use: No Sexual activity: Not on file Lifestyle Physical activity Days per week: Not on file Minutes per session: Not on file Stress: Not on file Relationships Social connections Talks on phone: Not on file Gets together: Not on file Attends episcopal service: Not on file Active member of club or organization: Not on file Attends meetings of clubs or organizations: Not on file Relationship status: Not on file Intimate partner violence Fear of current or ex partner: Not on file Emotionally abused: Not on file Physically abused: Not on file Forced sexual activity: Not on file Other Topics Concern Not on file Social History Narrative Lives With: Spouse Type of Home: House--Home Layout: One level Home Access: Stairs to enter without rails--Entrance Stairs - Number of Steps: 2 Bathroom Shower/Tub: Walk-in shower Bathroom Equipment: (no AD) Home Equipment: (no AD) ADL Assistance: Independent Homemaking Assistance: Independent Ambulation Assistance: Independent Transfer Assistance: Independent Active Stove Refinisher: Yes [employer] [place] w family Family History: Family History Problem Relation Age of Onset Stroke Mother Diabetes Father Hypertension Father High Cholesterol Father Medical Decision Making: I have independently reviewed/ordered the following labs: CBC with Differential: Recent Labs 04/23/20 1634 04/23/20 1634 04/25/20 0619 04/26/20 0512 WBC 8.2 < > 7.0 8.7 HGB 8.4* < > 9.0* 8.5* HCT 27.6* < > 31.0* 29.1* PLT 206 < > 180 183 LYMPHOPCT 21* -- -- -- MONOPCT 7 -- -- -- < > = values in this interval not displayed. BMP: Recent Labs 04/25/20 0619 04/26/20 0512 NA 138 135 K 4.7 5.1 CL 110* 106 CO2 21 21 BUN 20 15 CREATININE 0.63 0.63 Hepatic Function Panel: Recent Labs 04/25/20 0619 PROT 5.4* LABALBU 2.6* BILIDIR <0.08 IBILI CANNOT BE CALCULATED BILITOT 0.23* ALKPHOS 89 ALT 20 AST 26 No results for input(s): RPR in the last 72 hours. No results for input(s): HIV in the last 72 hours. No results for input(s): BC in the last 72 hours. Lab Results Component Value Date CREATININE 0.63 04/26/2020 GLUCOSE 85 04/26/2020 Detailed results: Thank you for allowing us to participate in the care of this patient.Please call with questions. This note is created with the assistance of a speech recognition program. While intending to generate adocument that actually reflects the content of the visit, the document can still have some errors including those of syntax and sound a like substitutions which may escape proof reading. It such instances, actual meaningcan be extrapolated by contextual diversion. Randi Argueta Office: Perfect serve / office [phone] I have discussed the care of the patient, including pertinent history and exam findings, with the student. I have seen and examined the patient and the mays elements of all parts of the encounter havebeen performed by me. I agree with the assessment, plan and orders as documented by the student Smith Diaz, Infectious Diseases * Ad Ramos MD - 04/25/2020 6:59 PM EST He was also seen on 04/25/2020. Again continues to complain of pain in the buttock area. Unable to ambulate. Reviewed the chart and the pathology report is still not back was given suggest metastatic lesion. Oncology consultation would be appropriate. We will continue to follow her up. * Zeynep Rush OTA - 04/25/2020 3:46 PM EST Occupational Therapy Occupational Therapy Not Seen Note DATE: 04/25/2020 Name: Lisa Mcdaniels : 1980 Patient not available for Occupational Therapy due to: Patient Declined: Pt had just learned this am that her has at another hospital. Next Scheduled Treatment: 04/26/20 * Natalie Osman MD - 04/25/2020 3:16 PM EST Today's Date: 04/25/2020 Patient Name: Lisa Mcdaniels Date of admission: 04/21/2020 12:10 PM Patient's age: 39 y.o., 1980 Admission Dx: Septic shock (HCC) [A41.9, R65.21] Reason for Consult: management recommendations Requesting Physician: Kati Mcdaniel MD CHIEF COMPLAINT: Lytic bone lesion SUBJECTIVE: . The patient was seen and examined. No significant changes. Continues to have bone aches. Pain is mainly in the hip. No fever. BRIEF CASE HISTORY: The patient is a 39 y.o. female who is admitted to the hospital for hip pain. The patient was recently treated for CO VID and after recovery, she was in a penitentiary and then was discharged home. She started having severe pain in the right hip area. She was admitted to the hospital and imaging study showed lytic lesion destroying the right ischium with some soft tissue component. There was suspicion of an infection so she was diagnosed with septic shock and was managed conservatively, orthopedic surgery and infectious disease were consulted and the suspicion is for a tumor inher pelvis. For that we are consulted to see the patient. The patient is seen and evaluated. She understand the finding. Biopsy was ordered for the bone lesion She is complaining of severe pain in her hip. She is morbidly obese and has been bed bound lately. Past Medical History: has a past medical history of MARCIE (acute kidney injury) ([facility]), Anemia, Anxiety, Bipolar 1 disorder (HCC), Cellulitis, COVID-19, Diabetes mellitus (HCC), DVT (deep venous thrombosis) (HCC), Hypertension, Migraine, Obesity, PE (pulmonary thromboembolism) (HCC), and Pelvis fracture (HCC). Past Surgical History: has a past surgical history that includes Cholecystectomy; Tonsillectomy; section; hc picc powerpic triple (04/21/2020); and IR BIOPSY SUPERFICIAL BONE (04/25/2020). Medications: Reviewed in [facility] Allergies: Penicillins and Darvon [propoxyphene] Social History: reports that she has never smoked. She has never used smokeless tobacco. She reports that she does not drink alcohol or use drugs. Family History: family history includes Diabetes in her father; High Cholesterol in her father; Hypertension in her father; Stroke in her mother. REVIEW OF SYSTEMS: Constitutional: Progressive fatigue, weight gain. Eyes: No eye discharge, double vision, or eye pain HEENT: negative for sore mouth, sore throat, hoarseness and voice change Respiratory: Shortness of breath and cough Cardiovascular: negative for chest pain, dyspnea, palpitations, orthopnea, PND Gastrointestinal: negative for nausea, vomiting, diarrhea, constipation, abdominal pain, Dysphagia,hematemesis and hematochezia Genitourinary: negative for frequency, dysuria, nocturia, urinary incontinence, and hematuria Integument: negative for rash, skin lesions, bruises. Hematologic/Lymphatic: negative for easy bruising, bleeding, lymphadenopathy, or petechiae Endocrine: negative for heat or cold intolerance,weight changes, change in bowel habits and hair loss Musculoskeletal: Hip and pelvic pain as discussed. Neurological: negative for headaches, dizziness, seizures, weakness, numbness PHYSICAL EXAM: BP (!) 146/73 Pulse 87 Temp 98.1 F (36.7 C) (Oral) Resp 20 Ht 5' 9 (1.753 m) Wt (!) 415 lb (188.2 kg) SpO2 98% BMI 61.28 kg/m Temp (24hrs), Av F (36.7 C), Min:97.3 F (36.3 C), Max:98.9 F (37.2 C) General appearance -appearing morbidly obese lady Mental status - alert and cooperative Eyes - pupils equal and reactive, extraocular eye movements intact Ears - bilateral TM's and external ear canals normal Mouth - mucous membranes moist, pharynx normal without lesions Neck - supple, no significant adenopathy Lymphatics - no palpable lymphadenopathy, no hepatosplenomegaly Chest - clear to auscultation, decreased air entry bilaterally Heart - normal rate, regular rhythm, normal S1, S2, no murmurs Abdomen -large pannus and mild cellulitis. Soft, nontender, nondistended, no masses or organomegaly Neurological - alert, oriented, normal speech, no focal findings or movement disorder noted Musculoskeletal -severe pain and tenderness in the right hip and pelvis Extremities - peripheral pulses normal, no pedal edema, no clubbing or cyanosis Skin - normal coloration and turgor, no rashes, no suspicious skin lesions noted , DATA: Labs: CBC: Recent Labs 04/24/20 0653 04/25/20 0619 WBC 7.6 7.0 HGB 9.1* 9.0* HCT 31.1* 31.0* PLT 223 180 BMP: Recent Labs 04/24/20 0653 04/25/20 0619 NA 141 138 K 4.8 4.7 CO2 21 21 BUN 27* 20 CREATININE 0.82 0.63 LABGLOM >60 >60 GLUCOSE 96 81 PT/INR: Recent Labs 04/24/202030 PROTIME 10.4 INR 1.0 IMAGING DATA: Primary Problem Septic shock (HCC) Active Hospital Problems Diagnosis Date Noted Non-traumatic rhabdomyolysis [M62.82] 04/21/2020 COVID-19 [U07.1] 04/21/2020 MARCIE (acute kidney injury) (HCC) [N17.9] 04/21/2020 Septic shock (HCC) [A41.9, R65.21] 04/20/2020 Pelvic fracture (HCC) [S32.9XXA] 02/05/2020 Lactic acid acidosis [E87.2] 12/19/2018 Morbid obesity due to excess calories (HCC) [E66.01] 02/21/2016 Diabetes (HCC) [E11.9] 02/18/2016 IMPRESSION: 1. Lytic bone lesion 2. Pathological fracture 3. Morbid obesity 4. MARCIE 5. Recent CO VID RECOMMENDATIONS: 1. Bone biopsy done today. 2. Further work-up for multiple myeloma. 3. This is likely malignant 4. Further treatment recommendation will be after review of the pathology Discussed with patient and Nurse. Natalie Wolf MD [facility] This note is created with the assistance of a speech recognition program. While intending to generate a document that actually reflects the content of the visit, the document can still have some errors including those of syntax and sound a like substitutions which may escape proof reading. It such instances, actual meaning can be extrapolated by contextual diversion. * Herman Vo PT - 04/25/2020 2:52 PM EST Physical Therapy DATE: 04/25/2020 NAME: Lisa Mcdaniels : 1980 No chief complaint on file. Patient not seen this date for Physical Therapy due to: [] Blood transfusion in progress [] Hemodialysis [x] Patient Declined [] Spine Precautions [] Strict Bedrest [] Surgery/ Procedure [] Testing [] Other [] PT is being discontinued at this time. Patient independent. No further needs. [] PT is being discontinued at this time due to declining physical/ medical status. Therapy is not appropriate at this time. Herman Vo PT * Smith Diaz MD - 04/25/2020 8:42 AM EST [facility] - Infectious diseases evaluation admission date 04/21/2020 reason for consultation: covid + Impression : Current: Remote Covid, persistent positive test, + AB, no clinical covid illness Septic shock - resolved CRP elevation Acute renal failure improving Hyperkalemia elevated CPK Morbid obesity R ischial bone lytic lesions and a soft tissue mass Right hip pathological fracture 01/2020. No sx, ambulating Allergy severe to PNC swelling and SOB Discussion / summary of stay / plan of care Recommendations Stop vancomycin and cefepime U cx Enterococcus faecalis & MSSA, presumed UTI BC 04/21 neg - repeat Get echo due to SA in urine ( though initisal urine was contaminated) 04/24 Switch AB back to ceftriaxone 2 g daily Repeat CRP Lytic ischial lesions - IR to biopsy for cx and path, necrotic tissue seen pend cx and path Get a Bone scan, pend MM work up Allergy to PNC but tolerated cefepime + Covid antibodies, removed out of covid isolation Infection Control Recommendations Zebulon Precautions Antimicrobial Stewardship Recommendations Simplification of therapy Targeted therapy IV to oral conversion Per Kg dosing Coordination ofOutpatient Care: Estimated Length of IV antimicrobials: Patient will need Midline / picc Catheter Insertion: Patient will need SNF: Patient will need outpatient wound care: History of Present Illness: Initial history: Lisa Mcdaniels is a 39 y.o.-year-old female history of Covid in November and needed oxygen at thetime Fracture of the right pelvis after a fall in January, treated conservatively and sent to the SNF and left Home improved 04/18 - arriving home Could not walk the steps and sat down x 2 days before she got attention. this was due to pain of the right hip - presented w headache nausea to the emergency room, was tachycardic hypotensive needing oxygen and pressors. ARF and elevated CK and K. Per report the patient was tested Covid positive - covid AB + as well Procalcitonin 1.5 and white count of 16, creatinine elevated 6 and CRP 19 She was also noticed to have a potassium of 7 Chest x-ray bilateral hazy infiltrates CT of the pelvis only shows lytic bone lesions of the right ischium along with soft tissue mass with nonspecific groundglass opacities bilateral lungs The patient was admitted with septic shock started on Levophed, but due to the positive Covid she was admitted to the Covid unit 04/22 creat better - K better - off pressures No cellulitis Leiva from [facility] was removed - urine seemed cloudy w sediments but she denies dysuria and UAwas contaminated initially, then repeat shows no UTI signs. Interval changes 04/25/2020 Patient Vitals for the past 8 hrs: BP Temp Temp src Pulse Resp SpO2 04/25/20 0700 133/69 98.8 F (37.1 C) Temporal 68 14 100 % 04/25/20 0400 137/77 97.3 F (36.3 C) Oral 78 18 Seen and examined at bedside. Patient returned form bone scan and scheduled for biopsy today. States hip pain is unchanged. Denies shortness of breath and abdominal pain at this time. On 3L NC. Afebrile, white count 7.6 Pelvis xray showing diastasis of left SI joint suggesting fracture of right inferior pubic ramus, pathologic fracture cannot be ruled out - Ct right hip and pelvis suggesting a right ischial lytic lesions and soft tissue mass, pathologicalfracture- IR to aspirated for Dg Still has pain right hip, CT remote hospital shows lytic lesions and some soft tissue mass - concernes for pathological fracture - no films on MRI on file Urine cx 04/21 +Enterococcus faecalis & MSSA candace / lambda nl Summary of relevant labs: Labs: WBC 12 - 8.5 - 8.2 - 7.6 - 7 Procal 1.71 Creat 2.57 - 1.86 - 1.42 CRP 237.5 - 72.4 - 29 Fibrinogen 605 [place]: 1.92/ 2.15, ratio 0.89 CEA: 2.2 Ca 19-9: 14 AFP: 4.8 CA 125: 22 candace / lambda nl Micro: Urine cx 04/21 +Enterococcus faecalis & MSSA Blood cx 04/21 neg Blood cx 04/25 neg so far Bone bx 04/25 Imaging: Bone scan 04/[address] Hip/Pelvis - 04/24 Aggressive osseous destruction and fragmented ossific densities and ossific debris with destruction of the right ischial tuberosity extending to the posterior column of the right acetabulum. Differential consideration includes destructive metastatic lesion with surrounding soft tissue mass with superinfection not excluded versus a combination of osteomyelitis and surrounding phlegmonous changes. However, there is no ulceration extending to this region making primary infection less likely. Destructive metastatic lesion and/or pathological fracture/osseous destruction is suspected. Pelvis xray 04/23: Diastasis left SI joint suggested fracture of the right inferior pubic ramus possible of pathologic fracture cannot be excluded, further evaluation with CT of the pelvis is recommended Renal US 04/[address] of the pelvis only shows lytic bone lesions of the right ischium along with soft tissue mass with nonspecific groundglass opacities bilateral lungs I have personally reviewed the past medical history, past surgical history, medications, social history, and family history, and I haveupdated the database accordingly. Allergies: Penicillins and Darvon [propoxyphene] Review of Systems: Review of Systems Constitutional: Positive for activity change. Negative for appetite change, chills and fever. HENT: Negative for congestion. Eyes: Negative for discharge. Respiratory: Negative for apnea and cough. Cardiovascular: Negative for chest pain. Gastrointestinal: Negative for abdominal pain and nausea. Endocrine: Negative for heat intolerance. Genitourinary: Negative for dysuria. Musculoskeletal: Positive for arthralgias. Skin: Negative for color change. Allergic/Immunologic: Negative for immunocompromised state. Neurological: Negative for headaches. Hematological: Negative for adenopathy. Psychiatric/Behavioral: Negative for agitation. Physical Examination : Physical Exam Constitutional: Appearance: Normal appearance. She is obese. She is not ill-appearing or diaphoretic. HENT: Head: Normocephalic and atraumatic. Nose: No congestion or rhinorrhea. Comments: Nasal canula Mouth/Throat: Mouth: Mucous membranes are moist. Eyes: Conjunctiva/sclera: Conjunctivae normal. Neck: Musculoskeletal: Neck supple. No muscular tenderness. Cardiovascular: Rate and Rhythm: Normal rate and regular rhythm. Heart sounds: Normal heart sounds. No murmur. Pulmonary: Effort: No respiratory distress. Breath sounds: Normal breath sounds. Abdominal: Palpations: Abdomen is soft. Tenderness: There is no abdominal tenderness. There is no guarding. Genitourinary: Comments: Urine kelly Musculoskeletal: General: No swelling or deformity. Skin: General: Skin is dry. Coloration: Skin is not jaundiced. Neurological: Mental Status: She is oriented to person, place, and time. Mental status is at baseline. Cranial Nerves: No cranial nerve deficit. Psychiatric: Mood and Affect: Mood normal. Thought Content: Thought content normal. Past Medical History: Past Medical History: Diagnosis Date MARCIE (acute kidney injury) ([facility]) 04/21/2020 Anemia Anxiety Bipolar 1 disorder ([facility]) Cellulitis bilateral legs COVID-19 11/2019 Diabetes mellitus ([facility]) DVT (deep venous thrombosis) ([facility]) 2014 Hypertension Migraine Obesity 01/07/2017 BMI 67.5 PE (pulmonary thromboembolism) ([facility]) 2014 Pelvis fracture ([facility]) 01/2020 Past Surgical History: Past Surgical History: Procedure Laterality Date SECTION CHOLECYSTECTOMY HC PICC POWERPIC TRIPLE 04/21/2020 TONSILLECTOMY Medications: cefTRIAXone (ROCEPHIN) IV 2 g Intravenous Q24H oxyCODONE-acetaminophen 1 tablet Oral Once [Held by provider] amLODIPine 5 mg Oral Daily megestrol 40 mg Oral Daily [Held by provider] metoprolol tartrate 25 mg Oral BID OXcarbazepine 300 mg Oral QPM pantoprazole 40 mg Oral QAM AC sertraline 50 mg Oral Daily sodium chloride flush 10 mL Intravenous 2 times per day Vitamin D 6,000 Units Oral Daily lidocaine 1 % injection 5 mL Intradermal Once sodium chloride flush 10 mL Intravenous 2 times per day lidocaine 1 % injection 5 mL Intradermal Once sodium chloride flush 10 mL Intravenous 2 times per day insulin lispro 0-12 Units Subcutaneous TID WC insulin lispro 0-6 Units Subcutaneous Nightly heparin (porcine) 10,000 Units Subcutaneous 3 times per day Social History: Social History Socioeconomic History Marital status: Spouse name: steph Number of children: 1 Years of education: Not on file Highest education level: Not on file Occupational History Not on file Social Needs Financial resource strain: Not on file Food insecurity Worry: Not on file Inability: Not on file Transportation needs Medical: Not on file Non-medical: Not on file Tobacco Use Smoking status: Never Smoker Smokeless tobacco: Never Used Substance and Sexual Activity Alcohol use: No Drug use: No Sexual activity: Not on file Lifestyle Physical activity Days per week: Not on file Minutes per session: Not on file Stress: Not on file Relationships Social connections Talks on phone: Not on file Gets together: Not on file Attends episcopal service: Not on file Active member of club or organization: Not on file Attends meetings of clubs or organizations: Not on file Relationship status: Not on file Intimate partner violence Fear of current or ex partner: Not on file Emotionally abused: Not on file Physically abused: Not on file Forced sexual activity: Not on file Other Topics Concern Not on file Social History Narrative Lives With: Spouse Type of Home: House--Home Layout: One level Home Access: Stairs to enter without rails--Entrance Stairs - Number of Steps: 2 Bathroom Shower/Tub: Walk-in shower Bathroom Equipment: (no AD) Home Equipment: (no AD) ADL Assistance: Independent Homemaking Assistance: Independent Ambulation Assistance: Independent Transfer Assistance: Independent Active Stove Refinisher: Yes Lives w family Family History: Family History Problem Relation Age of Onset Stroke Mother Diabetes Father Hypertension Father High Cholesterol Father Medical Decision Making: I have independently reviewed/ordered the following labs: CBC with Differential: Recent Labs 04/23/20 1634 04/24/20 0653 04/25/20 0619 WBC 8.2 7.6 7.0 HGB 8.4* 9.1* 9.0* HCT 27.6* 31.1* 31.0* PLT 206 223 180 LYMPHOPCT 21* -- -- MONOPCT 7 -- -- BMP: Recent Labs 04/24/20 0653 04/25/20 0619 NA 141 138 K 4.8 4.7 CL 109* 110* CO2 21 21 BUN 27* 20 CREATININE 0.82 0.63 Hepatic Function Panel: No results for input(s): PROT, LABALBU, BILIDIR, IBILI, BILITOT, ALKPHOS, ALT, AST in the last 72 hours. No results for input(s): RPR in the last 72 hours. No results for input(s): HIV in the last 72 hours. No results for input(s): BC in the last 72 hours. Lab Results Component Value Date CREATININE 0.63 04/25/2020 GLUCOSE 81 04/25/2020 Detailed results: Thank you for allowing us to participate in the care of this patient.Please call with questions. This note is created with the assistance of a speech recognition program. While intending to generate adocument that actually reflects the content of the visit, the document can still have some errors including those of syntax and sound a like substitutions which may escape proof reading. It such instances, actual meaningcan be extrapolated by contextual diversion. Randi Argueta Office: Perfect serve / office [phone] I have discussed the care of the patient, including pertinent history and exam findings, with the student. I have seen and examined the patient and the mays elements of all parts of the encounter havebeen performed by me. I agree with the assessment, plan and orders as documented by the student Smith Diaz, Infectious Diseases * Lisa Thomas APRN - SRI - 04/25/2020 8:23 AM EST [facility] Office: [phone] Matthew Green DO, Niko Winn DO, Eli Lamb DO, Gabriel Cosme DO, Britney Hooper MD, Viviana Stern MD, Vanessa Yi MD, Kati Mcdaniel MD, Don Anderson MD, Rosalia Espinoza MD, MD Sharmaine, Dandy Go MD, Edson Jackson MD, Reji Houser DO, Trupti Martínez MD, Jhoana Nelson MD, Cristhian Mccoy DO, Salvador Kirby MD, Luci Garcia DO, Javy Minaya MD, MD Ana, Tatyana Velasquez, DECK SUPERVISOR, Radha Conde, DECK SUPERVISOR, Fallon Morrissey, DECK SUPERVISOR, Penny Medina, [facility],Andi James, DECK SUPERVISOR, Iraida Samson, DECK SUPERVISOR, Wendy Stephen, DECK SUPERVISOR, Kelly Wallace, DECK SUPERVISOR, Divine Porter, DECK SUPERVISOR, Ottoniel Lozano PA-C, Lisa Thomas DNP, Zoraida Sue, DECK SUPERVISOR, Zuly Rowe, DECK SUPERVISOR, Marychuy Masterson, DECK SUPERVISOR, Joana Pichardo, DECK SUPERVISOR, Ebony Cole, DECK SUPERVISOR [facility] IN-PATIENT SERVICE [facility] Progress Note 04/25/2020 8:23 AM Name: Lisa Mcdaniels Acct: [id number] Room: [facility]/0431-01 Day: 4 Admit Date: 04/21/2020 12:10 PM PCP: No primary care provider on file. Code Status: Full Code Subjective: C/C: hip pain Interval History Status: not changed. Patient evaluated in room tearful at bedside due to the passing of her spouse. Patient to have IR guided biopsy of right hip today given findings on recent CT imaging. Follow-up echo ordered. Ortho, hematology/oncology and infectious disease are following. Blood pressure normalizing without midodrine. Brief History: Lisa Mcdaniels is a 39 y.o. F who was directly admitted from [facility] ED Apr 21 for the management of Septic shock (HCC). Pt tested + Covid in November and was treated with supplemental oxygen. On Feb 04 she fell and sustained a rt pelvic fracture. Pt was discharged to a SNF where she recently tested Neg for Covid. She left the facility Apr 18. Since dc pt has been unable to walk due to rt hip pain. She reports H/A, F/C and nausea. On presentation to the ED pt was tachycardic and hypotensive. She was tx with 2L Saline, Levophed, Ceftaroline, Clindamycin & Fentanyl. Pt reported covid + but there was no documentation sent to substantiate this. Patient cleared out of isolation precautions per infectious disease Levophed weaned R hip pain persistent- unable to complete MRI due to body habitus, ortho consulted Review of Systems: Constitutional: negative for chills, fevers, sweats Respiratory: negative for cough, dyspnea on exertion, shortness of breath, wheezing Cardiovascular: negative for chest pain, chest pressure/discomfort, lower extremity edema, palpitations Gastrointestinal: negative for abdominal pain, constipation, diarrhea, nausea, vomiting Neurological: negative for dizziness, headache Medications: Allergies: Allergies Allergen Reactions Penicillins Swelling tolerated cefepime 04/2020 Darvon [Propoxyphene] Hives Current Meds: Scheduled Meds: cefTRIAXone (ROCEPHIN) IV 2 g Intravenous Q24H oxyCODONE-acetaminophen 1 tablet Oral Once [Held by provider] amLODIPine 5 mg Oral Daily megestrol 40 mg Oral Daily [Held by provider] metoprolol tartrate 25 mg Oral BID OXcarbazepine 300 mg Oral QPM pantoprazole 40 mg Oral QAM AC sertraline 50 mg Oral Daily sodium chloride flush 10 mL Intravenous 2 times per day Vitamin D 6,000 Units Oral Daily lidocaine 1 % injection 5 mL Intradermal Once sodium chloride flush 10 mL Intravenous 2 times per day lidocaine 1 % injection 5 mL Intradermal Once sodium chloride flush 10 mL Intravenous 2 times per day insulin lispro 0-12 Units Subcutaneous TID WC insulin lispro 0-6 Units Subcutaneous Nightly heparin (porcine) 10,000 Units Subcutaneous 3 times per day Continuous Infusions: sodium chloride 50 mL/hr at 04/22/20 2146 PRN Meds: albuterol, albuterol sulfate HFA, ALPRAZolam, traMADol, sodium chloride flush, HYDROcodone 5 mg - acetaminophen OR HYDROcodone 5 mg - acetaminophen, sodium chloride flush, sodium chloride flush Data: Past Medical History: has a past medical history of MARCIE (acute kidney injury) ([facility]), Anemia, Anxiety, Bipolar 1 disorder ([facility]), Cellulitis, COVID-19, Diabetes mellitus (HCC), DVT (deep venous thrombosis) ([facility]), Hypertension, Migraine, Obesity, PE (pulmonary thromboembolism) ([facility]), and Pelvis fracture ([facility]). Social History: reports that she has never smoked. She has never used smokeless tobacco. She reports that she does not drink alcohol or use drugs. Family History: Family History Problem Relation Age of Onset Stroke Mother Diabetes Father Hypertension Father High Cholesterol Father Vitals: BP 133/69 Pulse 68 Temp 98.8 F (37.1 C) (Temporal) Resp 14 Ht 5' 9 (1.753 m) Wt (!) 415 lb (188.2 kg) SpO2 100% BMI 61.28 kg/m Temp (24hrs), Av.9 F (36.6 C), Min:97.3 F (36.3 C), Max:98.8 F (37.1 C) Recent Labs 04/24/20 1249 04/24/20 1717 04/24/20 2102 04/25/20 0637 POCGLU 69 88 90 79 I/O (24Hr): Intake/Output Summary (Last 24 hours) at 04/25/2020 0823 Last data filed at 04/25/2020 0408 Gross per 24 hour Intake 2863 ml Output 2150 ml Net 713 ml Labs: Hematology: Recent Labs 04/23/20 1634 04/23/20 1838 04/24/20 0653 04/24/20 2031 04/25/20 0001 04/25/20 0619 WBC 8.2 -- 7.6 -- -- 7.0 RBC 3.37* -- 3.58* -- -- 3.57* HGB 8.4* -- 9.1* -- -- 9.0* HCT 27.6* -- 31.1* -- -- 31.0* MCV 81.9* -- 86.9 -- -- 86.8 MCH 24.9* -- 25.4 -- -- 25.2 MCHC 30.4 -- 29.3 -- -- 29.0 RDW 19.9* -- 20.3* -- -- 19.9* PLT 206 -- 223 -- -- 180 MPV 10.3 -- 10.4 -- -- 10.5 CRP -- 72.7* -- -- 29.6* -- INR -- -- -- 1.0 -- -- Chemistry: Recent Labs 04/23/20 0827 04/23/20 1414 04/24/20 0653 04/25/20 0619 NA -- 140 141 138 K -- 4.5 4.8 4.7 CL -- 111* 109* 110* CO2 -- 22 21 21 GLUCOSE -- 150* 96 81 BUN -- 29* 27* 20 CREATININE -- 0.90 0.82 0.63 ANIONGAP -- 7* 11 7* LABGLOM -- >60 >60 >60 GFRAA -- >60 >60 >60 CALCIUM -- 8.0* 8.2* 8.1* CAION 1.11* -- -- -- Recent Labs 04/23/20205204/24/20 0652 04/24/20 1249 04/24/20 1717 04/24/20 2102 04/25/20 0637 POCGLU 119* 90 69 88 90 79 ABG:No results found for: POCPH, PHART, PH, POCPCO2, JYI2HKK, PCO2, POCPO2, PO2ART, PO2, POCHCO3, POR6ZTZ, HCO3, NBEA, PBEA, BEART, BE, THGBART, THB, [id number], [id number], [id number], O2SAT, FIO2 Lab Results Component Value Date/Time SPECIAL LT HAND 6ML 04/21/2020 04:02 PM Lab Results Component Value Date/Time CULTURE NO GROWTH 3 DAYS 04/21/2020 04:02 PM Radiology: Us Renal Limited Result Date: 04/22/2020 Essentially unremarkable renal ultrasound Physical Examination: General appearance: alert, cooperative and no distress Mental Status: oriented to person, place and time and normal affect Lungs: clear to auscultation bilaterally, normal effort, diminished posteriorly secondary to body habitus Heart: regular rate and rhythm, no murmur Abdomen: Morbidly obese soft, nontender, nondistended, normal bowel sounds, no masses, hepatomegaly, splenomegaly Extremities: no edema, redness, tenderness in the calves, bilateral vascular discoloration Skin: no gross lesions, rashes, induration Assessment: Hospital Problems Last Modified POA * (Principal) Septic shock (HCC) 04/21/2020 Yes Diabetes (HCC) (Chronic) 04/21/2020 Yes Morbid obesity due to excess calories (HCC) (Chronic) 04/21/2020 Yes Lactic acid acidosis 04/21/2020 Yes Pelvic fracture (HCC) (Chronic) 04/21/2020 Yes Non-traumatic rhabdomyolysis 04/21/2020 Yes COVID-19 04/21/2020 Yes Overview Signed 04/21/2020 6:13 PM by Penny Medina APRN - MILLER APPRENTICE + Covid November 2019 MARCIE (acute kidney injury) (HCC) 04/21/2020 Yes Plan: 1. Pathologic right hip fracture/lesion:Ortho, ID and Heme/Onc consulted for assistance for furthermanagement, IR guided aspiration/analysis, probable metastatic illness per onc notes. Echo ordered 2. E. coli UTI: Continue Levaquin 3. Hypovolemic hypotension: Worsened by septic shock. Resolved. Levophed weaned, midodrine initiated - discontinued on 04/24. Monitor blood pressure closely to see if we can reintroduce patient's antihypertensives, continue on hold 4. History of COVID- viral infection: Removed out isolation precautions per infectious disease recommendations, LFO2 as needed 5. Poor p.o. intake 6. Depression with anxiety: Continue Xanax, Zoloft 7. Diabetes mellitus type 2: A.m. blood sugar within normal limits. Continue KARMA. Monitor patientfor hyper/hypoglycemic events 8. Septic shock: Resolved, with concurrent hypovolemic hypotension- continue Levaquin per ID recs 9. Nontraumatic rhabdo: resolved, nephrology following. Discontinue IV fluids 10. Morbid obesity 11. GI/DVT prophylaxis: Protonix, heparin RUSS Aldana NP 04/25/2020 8:23 AM * Gina Campbell - 04/24/2020 10:49 AM EST Physical Therapy DATE: 04/24/2020 NAME: Lisa Mcdaniels : 1980 Patient not seen this date for Physical Therapy due to: [] Blood transfusion in progress [] Hemodialysis [x] Patient Declined: Despite MAX encouragement of importance of getting out of bed, pt refused. [] Spine Precautions [] Strict Bedrest [] Surgery/ Procedure [] Testing [] Other [] PT is being discontinued at this time. Patient independent. No further needs. [] PT is being discontinued at this time due to declining physical/ medical status. Therapy is not appropriate at this time. JASVIR Berumen Treatment performed by Student CLAIM ANALYST under the supervision of co-signing CLAIM ANALYST who agrees with all treatment and documentation. Maranda Jarrett PTA * mSith Diaz MD - 04/24/2020 8:45 AM EST [facility] - Infectious diseases evaluation admission date 04/21/2020 reason for consultation: covid + Impression : Current: Remote Covid, persistent positive test, + AB, no clinical covid illness Septic shock - resolved CRP elevation Acute renal failure improving Hyperkalemia elevated CPK Morbid obesity R ischial bone lytic lesions and a soft tissue mass Right hip pathological fracture 01/2020. No sx, ambulating Allergy severe to PNC swelling and SOB Discussion / summary of stay / plan of care Recommendations Stop vancomycin and cefepime U cx Enterococcus faecalis & MSSA, presumed UTI BC 04/21 neg - repeat Get echo due to SA in urine Switch AB back to ceftriaxone 2 g daily Repeat CRP Lytic ischial lesions - IR to biopsy for cx and path Get a Bone scan MM work up Allergy to PNC but tolerated cefepime + Covid antibodies, removed out of covid isolation Infection Control Recommendations Zebulon Precautions Antimicrobial Stewardship Recommendations Simplification of therapy Targeted therapy IV to oral conversion Per Kg dosing Coordination ofOutpatient Care: Estimated Length of IV antimicrobials: Patient will need Midline / picc Catheter Insertion: Patient will need SNF: Patient will need outpatient wound care: History of Present Illness: Initial history: Lisa Mcdaniels is a 39 y.o.-year-old female history of Covid in November and needed oxygen at thetime Fracture of the right pelvis after a fall in January, treated conservatively and sent to the SNF and left Home improved 04/18 - arriving home Could not walk the steps and sat down x 2 days before she got attention. this was due to pain of the right hip - presented w headache nausea to the emergency room, was tachycardic hypotensive needing oxygen and pressors. ARF and elevated CK and K. Per report the patient was tested Covid positive - covid AB + as well Procalcitonin 1.5 and white count of 16, creatinine elevated 6 and CRP 19 She was also noticed to have a potassium of 7 Chest x-ray bilateral hazy infiltrates CT of the pelvis only shows lytic bone lesions of the right ischium along with soft tissue mass with nonspecific groundglass opacities bilateral lungs The patient was admitted with septic shock started on Levophed, but due to the positive Covid she was admitted to the Covid unit 04/22 creat better - K better - off pressures No cellulitis Leiva from [facility] was removed - urine seemed cloudy w sediments but she denies dysuria and UAwas contaminated initially, then repeat shows no UTI signs. Interval changes 04/24/2020 Patient Vitals for the past 8 hrs: BP Temp Temp src Pulse Resp SpO2 04/24/20 0826 12 100 % 04/24/20 0650 126/61 Temporal 68 13 99 % 04/24/20 0306 122/75 97.9 F (36.6 C) Oral 63 10 99 % Patient seen and examined at bedside. No acute events overnight. States hip pain remains unchanged.She states she has no history of fall, and that hip pain started when she was walking and turned abruptly - she felt a pop and pain radiating down her leg. Was initially presenting with decreased sensation to RLE but has sensation at this time. Denies fever, chills, nausea, and cough at this time. 2L on NC. Afebrile, white count 7.6 Pelvis xray showing diastasis of left SI joint suggesting fracture of right inferior pubic ramus, pathologic fracture cannot be ruled out - Ct right hip and pelvis suggesting a left ischial lytic lesions and soft tissue mass, pathological fracture- IR to aspirated forDg Still has pain right hip, CT remote hospital shows lytic lesions and some soft tissue mass - concernes for pathological fracture - no films on MRI on file Urine cx 04/21 +Enterococcus faecalis & MSSA Summary of relevant labs: Labs: WBC 12 - 8.5 - 8.2 - 7.6 Procal 1.71 Creat 2.57 - 1.86 - 1.42 CRP 237.5 - 72.4 Fibrinogen 605 Micro: Urine cx 04/21 +Enterococcus faecalis & MSSA Blood cx / neg Imaging: CT Hip/Pelvis - 04/24 Aggressive osseous destruction and fragmented ossific densities and ossific debris with destruction of the right ischial tuberosity extending to the posterior column of the right acetabulum. Differential consideration includes destructive metastatic lesion with surrounding soft tissue mass with superinfection not excluded versus a combination of osteomyelitis and surrounding phlegmonous changes. However, there is no ulceration extending to this region making primary infection less likely. Destructive metastatic lesion and/or pathological fracture/osseous destruction is suspected. Pelvis xray 04/23: Diastasis left SI joint suggested fracture of the right inferior pubic ramus possible of pathologic fracture cannot be excluded, further evaluation with CT of the pelvis is recommended Renal US 04/[address] of the pelvis only shows lytic bone lesions of the right ischium along with soft tissue mass with nonspecific groundglass opacities bilateral lungs I have personally reviewed the past medical history, past surgical history, medications, social history, and family history, and I haveupdated the database accordingly. Allergies: Penicillins and Darvon [propoxyphene] Review of Systems: Review of Systems Constitutional: Positive for activity change. Negative for appetite change, chills and fever. HENT: Negative for congestion. Eyes: Negative for discharge. Respiratory: Negative for apnea and cough. Cardiovascular: Negative for chest pain. Gastrointestinal: Negative for abdominal pain and nausea. Endocrine: Negative for heat intolerance. Genitourinary: Negative for dysuria. Musculoskeletal: Positive for arthralgias. Skin: Negative for color change. Allergic/Immunologic: Negative for immunocompromised state. Neurological: Negative for headaches. Hematological: Negative for adenopathy. Psychiatric/Behavioral: Negative for agitation. Physical Examination : Physical Exam Constitutional: Appearance: Normal appearance. She is obese. She is not ill-appearing or diaphoretic. HENT: Head: Normocephalic and atraumatic. Nose: No congestion or rhinorrhea. Comments: Nasal canula Mouth/Throat: Mouth: Mucous membranes are moist. Eyes: Conjunctiva/sclera: Conjunctivae normal. Neck: Musculoskeletal: Neck supple. No muscular tenderness. Cardiovascular: Rate and Rhythm: Normal rate and regular rhythm. Heart sounds: Normal heart sounds. No murmur. Pulmonary: Effort: No respiratory distress. Breath sounds: Normal breath sounds. Abdominal: Palpations: Abdomen is soft. Tenderness: There is no abdominal tenderness. There is no guarding. Genitourinary: Comments: Urine kelly Musculoskeletal: General: No swelling or deformity. Skin: General: Skin is dry. Coloration: Skin is not jaundiced. Neurological: Mental Status: She is oriented to person, place, and time. Mental status is at baseline. Cranial Nerves: No cranial nerve deficit. Psychiatric: Mood and Affect: Mood normal. Thought Content: Thought content normal. Past Medical History: Past Medical History: Diagnosis Date MARCIE (acute kidney injury) ([facility]) 04/21/2020 Anemia Anxiety Bipolar 1 disorder ([facility]) Cellulitis bilateral legs COVID-19 11/2019 Diabetes mellitus ([facility]) DVT (deep venous thrombosis) ([facility]) 2014 Hypertension Migraine Obesity 01/07/2017 BMI 67.5 PE (pulmonary thromboembolism) ([facility]) 2014 Pelvis fracture ([facility]) 01/2020 Past Surgical History: Past Surgical History: Procedure Laterality Date SECTION CHOLECYSTECTOMY HC PICC POWERPIC TRIPLE 04/21/2020 TONSILLECTOMY Medications: levoFLOXacin 500 mg Oral Daily oxyCODONE-acetaminophen 1 tablet Oral Once [Held by provider] amLODIPine 5 mg Oral Daily megestrol 40 mg Oral Daily [Held by provider] metoprolol tartrate 25 mg Oral BID OXcarbazepine 300 mg Oral QPM pantoprazole 40 mg Oral QAM AC sertraline 50 mg Oral Daily sodium chloride flush 10 mL Intravenous 2 times per day Vitamin D 6,000 Units Oral Daily midodrine 10 mg Oral TID WC lidocaine 1 % injection 5 mL Intradermal Once sodium chloride flush 10 mL Intravenous 2 times per day lidocaine 1 % injection 5 mL Intradermal Once sodium chloride flush 10 mL Intravenous 2 times per day insulin lispro 0-12 Units Subcutaneous TID WC insulin lispro 0-6 Units Subcutaneous Nightly heparin (porcine) 10,000 Units Subcutaneous 3 times per day Social History: Social History Socioeconomic History Marital status: Spouse name: steph Number of children: 1 Years of education: Not on file Highest education level: Not on file Occupational History Not on file Social Needs Financial resource strain: Not on file Food insecurity Worry: Not on file Inability: Not on file Transportation needs Medical: Not on file Non-medical: Not on file Tobacco Use Smoking status: Never Smoker Smokeless tobacco: Never Used Substance and Sexual Activity Alcohol use: No Drug use: No Sexual activity: Not on file Lifestyle Physical activity Days per week: Not on file Minutes per session: Not on file Stress: Not on file Relationships Social connections Talks on phone: Not on file Gets together: Not on file Attends episcopal service: Not on file Active member of club or organization: Not on file Attends meetings of clubs or organizations: Not on file Relationship status: Not on file Intimate partner violence Fear of current or ex partner: Not on file Emotionally abused: Not on file Physically abused: Not on file Forced sexual activity: Not on file Other Topics Concern Not on file Social History Narrative Lives With: Spouse Type of Home: House--Home Layout: One level Home Access: Stairs to enter without rails--Entrance Stairs - Number of Steps: 2 Bathroom Shower/Tub: Walk-in shower Bathroom Equipment: (no AD) Home Equipment: (no AD) ADL Assistance: Independent Homemaking Assistance: Independent Ambulation Assistance: Independent Transfer Assistance: Independent Active Stove Refinisher: Yes Lives w family Family History: Family History Problem Relation Age of Onset Stroke Mother Diabetes Father Hypertension Father High Cholesterol Father Medical Decision Making: I have independently reviewed/ordered the following labs: CBC with Differential: Recent Labs 04/21/20 1607 04/21/20 1607 04/23/20 1634 04/24/20 0653 WBC 12.0* < > 8.2 7.6 HGB 9.5* < > 8.4* 9.1* HCT 31.3* < > 27.6* 31.1* PLT 278 < > 206 223 LYMPHOPCT 10* -- 21* -- MONOPCT 9* -- 7 -- < > = values in this interval not displayed. BMP: Recent Labs 04/22/20 0443 04/23/20 1414 04/24/20 0653 NA 139 140 141 K 4.5 4.5 4.8 CL 106 111* 109* CO2 23 22 21 BUN 31* 29* 27* CREATININE 1.42* 0.90 0.82 MG 1.8 -- -- Hepatic Function Panel: Recent Labs 04/21/20 1607 04/22/20 0443 PROT 6.0* 5.7* LABALBU 2.9* 2.6* BILITOT 0.88 0.62 ALKPHOS 95 89 ALT 27 25 AST 54* 39* No results for input(s): RPR in the last 72 hours. No results for input(s): HIV in the last 72 hours. No results for input(s): BC in the last 72 hours. Lab Results Component Value Date CREATININE 0.82 04/24/2020 GLUCOSE 96 04/24/2020 Detailed results: Thank you for allowing us to participate in the care of this patient.Please call with questions. This note is created with the assistance of a speech recognition program. While intending to generate adocument that actually reflects the content of the visit, the document can still have some errors including those of syntax and sound a like substitutions which may escape proof reading. It such instances, actual meaningcan be extrapolated by contextual diversion. Randi Argueta Office: Perfect serve / office [phone] I have discussed the care of the patient, including pertinent history and exam findings, with the student. I have seen and examined the patient and the mays elements of all parts of the encounter havebeen performed by me. I agree with the assessment, plan and orders as documented by the student Smith Diaz, Infectious Diseases * Lisa Thomas APRN - NP - 04/24/2020 8:05 AM EST Physician Progress Note PATIENT: LISA MCDANIELS CSN #: [id number] : 1980 ADMIT DATE: 04/21/2020 12:10 PM DISCH DATE: RESPONDING PROVIDER #: LISA Mandujano NP QUERY TEXT: Patient admitted with suspected septic shock, noted to have possible right hip infection.. If possible, please document in progress notes and discharge summary if you are evaluating and/or treating any of the following: The medical record reflects the following: Risk Factors: hip replacement Clinical Indicators: right hip pain with walking, 02/04- fall with pelvic fracture and rehab with increasing pain and inability to walk, rehabed and got home and could not walk for 2 days. Per PN of medicine on 04/22 - CT abd/pelvis without contrast:- from outside facility - Destructive lytic bone lesion involves the rt ischium with associated soft tissue mass. pulmonology notes concern for osteomyelitis. Treatment: IV- Vancomycin, Fentanyl, clindamycin. Thank You, contact if questions or concerns Antonio VARGAS, CDI- email - [email or web address] cell -[phone] office - [phone] Options provided: -- right hip osteomyelitis -- Right hip infection not clinically significant -- Other - I will add my own diagnosis -- Disagree - Not applicable / Not valid -- Disagree - Clinically unable to determine / Unknown -- Refer to Clinical Documentation Reviewer PROVIDER RESPONSE TEXT: Imaging ordered to determine osteo presence. Pt unable to completed imaging due to body habitus Query created by: Antonio Spencer on 04/23/2020 9:36 AM QUERY TEXT: Patient admitted with septic shock from outside facility. Noted documentation of septic shock on H&P - 04/21 and ruled out on PN of 04/22 and noted Hypovolemia and hypovolemic shock on PN 04/21-04/22 with a note of septic shock likely related to hypovolemia. If possible, please document in progress notes and discharge summary if you are evaluating and /or treating any of the following: The medical record reflects the following: Risk Factors: h/o COVID with no test results, morbid obesity, h/o pelvic fx and inability to walk. Clinical Indicators: septic shock - resolved on PN of medicine on 04/22 - but no documentation of sepsis due to an infectious process to support septic shock. positive antibody for covid, - removed form isolation as not a current infection. Pulm PN - hypovolemia and hypovolemic shock present and need for IV medication support. and IVF, .SBP- 90-100 with MAP-= 60-70, HR - 140-60, BMI- 65 Treatment: bolus - 2 L then NS @ 50, IV - Levophed, Ceftaroline, Clindamycin, Fentanyl, Vancomycin, cefepime, Thank You, contact if questions or concerns Antonio VARGAS, CDI- email - [email or web address] -[phone] office - [phone] Options provided: -- Hypovolemia and hypovolemic shock confirmed and septic shock ruled out -- septic shock confirmed and Hypovolemia and hypovolemic shock ruled out -- septic shock and Hypovolemia and hypovolemic shock confirmed -- septic shock and Hypovolemia and hypovolemic shock ruled out -- Other - I will add my own diagnosis -- Disagree - Not applicable / Not valid -- Disagree - Clinically unable to determine / Unknown -- Refer to Clinical Documentation Reviewer PROVIDER RESPONSE TEXT: After study, Hypovolemia and hypovolemic shock confirmed and septic shock ruled out. Query created by: Antonio Spencer on 04/23/2020 9:51 AM Electronically signed by: LISA Mandujano NP 04/24/2020 8:04 AM * Lisa Thomas APRN - NP - 04/24/2020 7:21 AM EST [facility] Office: [phone] Matthew Green DO, Niko Winn DO, Eli Lamb DO, Gabriel Comse DO, Britney Hooper MD, Viviana Stern MD, Vanessa Yi MD, Kati Mcdaniel MD, Don Anderson MD, Rosalia Espinoza MD, MD Sharmaine, Dandy Go MD, Edson Jackson MD, Reji Houser DO, Trupti Martínez MD, Jhoana Nelson MD, Cristhian Mccoy DO, Salvador Kirby MD, Luci Garcia DO, Javy Minaya MD, MD Ana, Tatyana Velasquez, DECK SUPERVISOR, Radha Conde DECK SUPERVISOR, Fallon Morrissey, DECK SUPERVISOR, Penny Medina, MILLER APPRENTICE,Andi James, DECK SUPERVISOR, Iraida Samson DECK SUPERVISOR, Wendy Stephen, DECK SUPERVISOR, Kelly Wallace, DECK SUPERVISOR, Divine Porter, DECK SUPERVISOR, Ottoniel Lozano PA-C, Lisa Thomas DNP, Zoraida Sue, DECK SUPERVISOR, Zuly Rowe DECK SUPERVISOR, Marychuy Masterson DECK SUPERVISOR, Joana Pichardo DECK SUPERVISOR, Ebony Cole, DECK SUPERVISOR [facility] IN-PATIENT SERVICE [facility] Progress Note 04/24/2020 7:21 AM Name: Lisa Mcdaniels Acct: [id number] Room: 0431/0431-01 Day: 3 Admit Date: 04/21/2020 12:10 PM PCP: No primary care provider on file. Code Status: Full Code Subjective: C/C: hip pain Interval History Status: not changed. Patient evaluated in room sitting in bed. Hypovolemic hypotension improved, patient tolerating midodrine well. IV fluids continue. Ortho consulted overnight for recurrent right hip pain after a previous right pelvic fracture from January Brief History: Lisa Mcdaniels is a 39 y.o. F who was directly admitted from [facility] ED Apr 21 for the management of Septic shock (HCC). Pt tested + Covid in November and was treated with supplemental oxygen. On Feb 04 she fell and sustained a rt pelvic fracture. Pt was discharged to a SNF where she recently tested Neg for Covid. She left the facility Apr 18. Since dc pt has been unable to walk due to rt hip pain. She reports H/A, F/C and nausea. On presentation to the ED pt was tachycardic and hypotensive. She was tx with 2L Saline, Levophed, Ceftaroline, Clindamycin & Fentanyl. Pt reported covid + but there was no documentation sent to substantiate this. Patient cleared out of isolation precautions per infectious disease Levophed weaned R hip pain persistent- unable to complete MRI due to body habitus, ortho consulted Review of Systems: Constitutional: negative for chills, fevers, sweats Respiratory: negative for cough, dyspnea on exertion, shortness of breath, wheezing Cardiovascular: negative for chest pain, chest pressure/discomfort, lower extremity edema, palpitations Gastrointestinal: negative for abdominal pain, constipation, diarrhea, nausea, vomiting Neurological: negative for dizziness, headache Medications: Allergies: Allergies Allergen Reactions Penicillins Swelling tolerated cefepime 04/2020 Darvon [Propoxyphene] Hives Current Meds: Scheduled Meds: levoFLOXacin 500 mg Oral Daily oxyCODONE-acetaminophen 1 tablet Oral Once [Held by provider] amLODIPine 5 mg Oral Daily megestrol 40 mg Oral Daily [Held by provider] metoprolol tartrate 25 mg Oral BID OXcarbazepine 300 mg Oral QPM pantoprazole 40 mg Oral QAM AC sertraline 50 mg Oral Daily sodium chloride flush 10 mL Intravenous 2 times per day Vitamin D 6,000 Units Oral Daily midodrine 10 mg Oral TID lidocaine 1 % injection 5 mL Intradermal Once sodium chloride flush 10 mL Intravenous 2 times per day lidocaine 1 % injection 5 mL Intradermal Once sodium chloride flush 10 mL Intravenous 2 times per day insulin lispro 0-12 Units Subcutaneous TID insulin lispro 0-6 Units Subcutaneous Nightly heparin (porcine) 10,000 Units Subcutaneous 3 times per day Continuous Infusions: sodium chloride 50 mL/hr at 04/22/20 2146 norepinephrine Stopped (04/22/20 0805) PRN Meds: albuterol, albuterol sulfate HFA, ALPRAZolam, traMADol, sodium chloride flush, HYDROcodone 5 mg - acetaminophen OR HYDROcodone 5 mg - acetaminophen, sodium chloride flush, sodium chloride flush Data: Past Medical History: has a past medical history of MARCIE (acute kidney injury) (HCC), Anemia, Anxiety, Bipolar 1 disorder (HCC), Cellulitis, COVID-19, Diabetes mellitus (HCC), DVT (deep venous thrombosis) (HCC), Hypertension, Migraine, Obesity, PE (pulmonary thromboembolism) (HCC), and Pelvis fracture (HCC). Social History: reports that she has never smoked. She has never used smokeless tobacco. She reports that she does not drink alcohol or use drugs. Family History: Family History Problem Relation Age of Onset Stroke Mother Diabetes Father Hypertension Father High Cholesterol Father Vitals: BP 122/75 Pulse 63 Temp 97.9 F (36.6 C) (Oral) Resp 10 Ht 5' 9 (1.753 m) Wt (!) 415 lb (188.2 kg) SpO2 99% BMI 61.28 kg/m Temp (24hrs), Av F (36.7 C), Min:97.7 F (36.5 C), Max:98.7 F (37.1 C) Recent Labs 04/23/20 1128 04/23/20 1557 04/23/20 2053 04/24/20 0652 POCGLU 124* 113* 119* 90 I/O (24Hr): Intake/Output Summary (Last 24 hours) at 04/24/2020 0721 Last data filed at 04/24/2020 0433 Gross per 24 hour Intake 3659.17 ml Output 1570 ml Net 2089.17 ml Labs: Hematology: Recent Labs 04/21/20 1607 04/22/20 0443 04/23/20 1634 04/23/20 1838 WBC 12.0* 8.5 8.2 -- RBC 3.81* 3.56* 3.37* -- HGB 9.5* 8.9* 8.4* -- HCT 31.3* 30.3* 27.6* -- MCV 82.2* 85.1 81.9* -- MCH 24.9* 25.0* 24.9* -- MCHC 30.4 29.4 30.4 -- RDW 19.9* 19.7* 19.9* -- PLT 278 229 206 -- MPV 10.1 10.4 10.3 -- CRP 237.5* -- -- 72.7* Chemistry: Recent Labs 04/21/20 1607 04/21/20 22504/22/2044204/23/20 0827 04/23/20 1414 NA 137 135 139 -- 140 K 5.1 5.0 4.5 -- 4.5 CL 102 102 106 -- 111* CO2 21 23 23 -- 22 GLUCOSE 182* 235* 206* -- 150* BUN 42* 34* 31* -- 29* CREATININE 2.57* 1.86* 1.42* -- 0.90 MG -- -- 1.8 -- -- ANIONGAP 14 10 10 -- 7* LABGLOM 21* 30* 41* -- >60 GFRAA 25* 37* 50* -- >60 CALCIUM 8.2* 7.9* 8.2* -- 8.0* CAION -- -- -- 1.11* -- PHOS -- -- 2.8 -- -- TROPHS 17* -- -- -- -- CKTOTAL 1,836* -- 1,058* -- -- MYOGLOBIN 484* -- 152* -- -- Recent Labs 04/21/20 1607 04/21/20 16004/22/2044204/22/2044204/22/20204904/23/20 0759 04/23/20 1128 04/23/20 1557 04/23/20205204/24/20 0652 PROT 6.0* -- 5.7* -- -- -- -- -- -- -- LABALBU 2.9* -- 2.6* -- -- -- -- -- -- -- LABA1C 5.7 -- -- -- -- -- -- -- -- -- TSH 0.91 -- -- -- -- -- -- -- -- -- AST 54* -- 39* -- -- -- -- -- -- -- ALT 27 -- 25 -- -- -- -- -- -- -- LDH 422* -- -- -- -- -- -- -- -- -- ALKPHOS 95 -- 89 -- -- -- -- -- -- -- BILITOT 0.88 -- 0.62 -- -- -- -- -- -- -- POCGLU -- < > -- < > 145* 116* 124* 113* 119* 90 < > = values in this interval not displayed. ABG:No results found for: POCPH, PHART, PH, POCPCO2, QZE9HAW, PCO2, POCPO2, PO2ART, PO2, POCHCO3, JDM8HOV, HCO3, NBEA, PBEA, BEART, BE, THGBART, THB, NNW5QPT, MFVA3WCN, X9CPZPVZ, O2SAT, FIO2 Lab Results Component Value Date/Time SPECIAL LT HAND 6ML 04/21/2020 04:02 PM Lab Results Component Value Date/Time CULTURE NO GROWTH 3 DAYS 04/21/2020 04:02 PM Radiology: Us Renal Limited Result Date: 04/22/2020 Essentially unremarkable renal ultrasound Physical Examination: General appearance: alert, cooperative and no distress Mental Status: oriented to person, place and time and normal affect Lungs: clear to auscultation bilaterally, normal effort, diminished posteriorly secondary to body habitus Heart: regular rate and rhythm, no murmur Abdomen: Morbidly obese soft, nontender, nondistended, normal bowel sounds, no masses, hepatomegaly, splenomegaly Extremities: no edema, redness, tenderness in the calves, bilateral vascular discoloration Skin: no gross lesions, rashes, induration Assessment: Hospital Problems Last Modified POA * (Principal) Septic shock (HCC) 04/21/2020 Yes Diabetes (HCC) (Chronic) 04/21/2020 Yes Morbid obesity due to excess calories (HCC) (Chronic) 04/21/2020 Yes Lactic acid acidosis 04/21/2020 Yes Pelvic fracture (HCC) (Chronic) 04/21/2020 Yes Non-traumatic rhabdomyolysis 04/21/2020 Yes COVID-19 04/21/2020 Yes Overview Signed 04/21/2020 6:13 PM by Penny Mednia APRN - MILLER APPRENTICE + Covid November 2019 MARCIE (acute kidney injury) (HCC) 04/21/2020 Yes Plan: 1. Septic shock: With concurrent hypovolemic hypotension continue antibiotics. ID consulted. Cefepime transition to Levaquin 2. E. coli UTI: Continue Levaquin at the discretion of infectious disease 3. Nontraumatic rhabdo: With acute kidney injury, nephrology following. Continue IV fluids 4. Hypovolemic hypotension: Worsened by septic shock. Continue IV fluids. Hold antihypertensives. Levophed weaned, midodrine initiated-discontinued on 04/24. Monitor blood pressure closely to see if we can reintroduce patient's antihypertensives 5. Right hip lesion: ortho consulted, unable to complete MRI 2/[address] ordered per ortho 6. History of COVID-19 viral infection: Removed out isolation precautions per infectious disease recommendations 7. Poor p.o. intake 8. Depression with anxiety: Continue Xanax, Zoloft 9. Diabetes mellitus type 2: A.m. blood sugar within normal limits. Continue KARMA. Monitor patientfor hyper/hypoglycemic events 10. GI/DVT prophylaxis: Protonix, heparin RUSS Aldana NP 04/24/2020 7:21 AM Associated attestation - Jesús Nguyen MD - 04/24/2020 1:39 PM EST Attending Supervising Physician s Attestation Statement I have seen and examined Lisa Mcdaniels and the mays elements of all parts of the encounter have been performed by me. I agree with the assessment, plan and orders as documented by the Advanced Practice Provider. I discussed the findings and plans with the nurse practitioner and agree as documented in her note . Additional Comments: CT reviewed, concerned for metastatic disease vs infection. Oncology consulted, ID following. Plans for biopsy. * Jeremias Wallace DO - 04/24/2020 5:23 AM EST Orthopedic Progress Note Patient: Lisa Harsh Mcdaniels Date of : 1980 39 y.o. female Subjective: Patient seen and examined at bedside. No complaints or concerns Per nursing PT was unable to have MRI performed last nigh due to body habitus Objective: Vitals: 04/24/20 0306 BP: 122/75 Pulse: 63 Resp: 10 Temp: 97.9 F (36.6 C) SpO2: 99% Gen: Alert, oriented, pleasant RLE: No ecchymoses, abrasions, deformity, or lacerations. Skin intact. Compartments soft. EHL/FHL/TA/GS complex motor intact. Sural, saphenous, superificial/deep peroneal, and plantar nerve distribution SILT. Minimal pain with log roll. Patient unable to perform SLR due to pain. Pain with JANNIE and FADIR. Foot warm and well perfused. Recent Labs 04/23/20 1414 04/23/20 1634 WBC -- 8.2 HGB -- 8.4* HCT -- 27.6* PLT -- 206 NA 140 -- K 4.5 -- BUN 29* -- CREATININE 0.90 -- GLUCOSE 150* -- Meds: Heparin, Levaquin See rec for complete list Impression/plan: 39 y.o. female being seen for right hip pain, concern for pathologic fracture of right inferior pubic rami -Patient unable to have MRI completed due to body habitus. Recommend CT scan w contrast to be completed today. -Weight bearing: NWB RLE -Pain control and medical management per primary -DVT ppx: Per primary. Ok from orthostandpoint -Will follow up advanced imaging. Further recommendations to follow -Patient may require biopsy pending CT -Please page probation supervisor Ortho resident with any questions or concerns Jeremias Wallace, Orthopedic Surgery Resident PGY-3 [place], [place] Associated attestation - Ad Ramos MD - 04/24/2020 3:51 PM EST Attending Physician Statement I have discussed the case, including pertinent history and exam findings with the resident. I have seen and examined the patient on 04.24.2020 and the mays elements of the encounter have been performed by me. I agree with the assessment, plan and orders as documented by the resident. * Ad Brian MD - 04/23/2020 1:18 PM EST Renal Progress Note Patient : Lisa Mcdaniels; 39 y.o. Location: 0431/0431-01 Attending: Jesús Nguyen MD Admit Date: 04/21/2020 Hospital Day: 2 Subjective: Patient was laying in bed, quite comfortable. No new issues reported overnight. She still reports some hip pain that is persisting. No fevers reported overnight. Alert awake oriented x3. Able to converse appropriately. Continues to be on 2 L nasal cannula. Urine output has been adequate in the last 24 hours. Serum creatinine did improve to 1.42 mg/DL yesterday. No labs available from today. Renal ultrasound 04/22/2020: Right kidney 12.8 cm, left kidney 12 cm. Impression: Essentially unremarkable renal ultrasound. Outpatient Medications: Medications Prior to Admission: traMADol (ULTRAM) 50 MG tablet, Take 50 mg by mouth every 6 hours as needed. megestrol (MEGACE) 40 MG tablet, Take 40 mg by mouth daily sertraline (ZOLOFT) 50 MG tablet, Take 1 tablet by mouth daily docusate sodium (COLACE) 100 MG capsule, Take 1 capsule by mouth daily as needed for Constipation amLODIPine (NORVASC) 5 MG tablet, Take 1 tablet by mouth daily albuterol (PROVENTIL) (2.5 MG/3ML) 0.083% nebulizer solution, Take 3 mLs by nebulization every 6 hours as needed for Wheezing ondansetron (ZOFRAN ODT) 4 MG disintegrating tablet, Take 1 tablet by mouth every 8 hours as neededfor Nausea pantoprazole (PROTONIX) 40 MG tablet, Take 1 tablet by mouth every morning (before breakfast) diclofenac sodium 1 % GEL, Apply 2 g topically 4 times daily miconazole (MICOTIN) 2 % powder, Apply topically 2 times daily. metoprolol tartrate (LOPRESSOR) 25 MG tablet, take 1 tablet by mouth twice a day potassium chloride (KLOR-CON M) 20 MEQ TBCR extended release tablet, Take 20 mEq by mouth daily (with breakfast) furosemide (LASIX) 40 MG tablet, Take 40 mg by mouth daily OXcarbazepine (TRILEPTAL) 300 MG tablet, Take 300 mg by mouth every evening At bedtime albuterol sulfate HFA (PROVENTIL HFA) 108 (90 Base) MCG/ACT inhaler, Inhale 2 puffs into the lungs every 6 hours as needed for Wheezing or Shortness of Breath (Space out to every 6 hours as symptoms improve) Space out to every 6 hours as symptoms improve. ALPRAZolam (XANAX) 1 MG tablet, Take 1 mg by mouth 2 times daily as needed. . Current Medications: Scheduled Meds: levoFLOXacin 500 mg Oral Daily oxyCODONE-acetaminophen 1 tablet Oral Once [Held by provider] amLODIPine 5 mg Oral Daily megestrol 40 mg Oral Daily [Held by provider] metoprolol tartrate 25 mg Oral BID OXcarbazepine 300 mg Oral QPM pantoprazole 40 mg Oral QAM AC sertraline 50 mg Oral Daily sodium chloride flush 10 mL Intravenous 2 times per day Vitamin D 6,000 Units Oral Daily midodrine 10 mg Oral TID WC lidocaine 1 % injection 5 mL Intradermal Once sodium chloride flush 10 mL Intravenous 2 times per day lidocaine 1 % injection 5 mL Intradermal Once sodium chloride flush 10 mL Intravenous 2 times per day insulin lispro 0-12 Units Subcutaneous TID WC insulin lispro 0-6 Units Subcutaneous Nightly heparin (porcine) 10,000 Units Subcutaneous 3 times per day Continuous Infusions: sodium chloride 50 mL/hr at 04/22/20 2146 norepinephrine Stopped (04/22/20 0805) PRN Meds: albuterol, albuterol sulfate HFA, ALPRAZolam, traMADol, sodium chloride flush, HYDROcodone 5 mg - acetaminophen OR HYDROcodone 5 mg - acetaminophen, sodium chloride flush, sodium chloride flush Input/Output: I/O last 3 completed shifts: In: 315 [P.O.:50; I.V.:215; IV Piggyback:50] Out: 1900 [Urine:1900]. Patient Vitals for the past 96 hrs (Last 3 readings): Weight 04/23/20 0337 (!) 415 lb (188.2 kg) 04/22/20 0600 (!) 411 lb (186.4 kg) 04/21/20 1435 (!) 408 lb (185.1 kg) Vital Signs: Temperature: Temp: 97.8 F (36.6 C) TMax: Temp (24hrs), Av.1 F (36.7 C), Min:97.1 F (36.2 C), Max:99.1 F (37.3 C) Respirations: Resp: 14 Pulse: Pulse: 72 BP: BP: 126/67 BP Range: Systolic (24hrs), Av , Min:104 , Max:135 Diastolic (24hrs), Av, Min:46, Max:76 Physical Examination: Due to the current efforts to prevent transmission of COVID-19 and also the need to preserve PPE for other caregivers, a swdw-pd-[id number] encounter with the patient was not performed. That being said, all relevant records and diagnostic tests were reviewed, including laboratory results and imaging. I did evaluate the patient through the room window and was in no distress. Case was discussed with involved healthcare workers as required. Labs: Recent Labs 04/21/20160604/22/20 0443 WBC 12.0* 8.5 RBC 3.81* 3.56* HGB 9.5* 8.9* HCT 31.3* 30.3* MCV 82.2* 85.1 MCH 24.9* 25.0* MCHC 30.4 29.4 RDW 19.9* 19.7* PLT 278 229 MPV 10.1 10.4 BMP: Recent Labs 04/21/20 1607 04/21/20 2259 04/22/20 0443 NA 137 135 139 K 5.1 5.0 4.5 CL 102 102 106 CO2 21 23 23 BUN 42* 34* 31* CREATININE 2.57* 1.86* 1.42* GLUCOSE 182* 235* 206* CALCIUM 8.2* 7.9* 8.2* Phosphorus: Recent Labs 04/22/20 0443 PHOS 2.8 Magnesium: Recent Labs 04/22/20 0443 MG 1.8 Albumin: Recent Labs 04/21/20 1607 04/22/20 0443 LABALBU 2.9* 2.6* SPEP: Lab Results Component Value Date PROT 5.7 04/22/2020 Urinalysis/Chemistries: Lab Results Component Value Date NITRU NEGATIVE 04/22/2020 COLORU YELLOW 04/22/2020 PHUR 6.0 04/22/2020 WBCUA 2 TO 5 04/22/2020 RBCUA 2 TO 5 04/22/2020 MUCUS NOT REPORTED 04/22/2020 TRICHOMONAS NOT REPORTED 04/22/2020 YEAST NOT REPORTED 04/22/2020 BACTERIA NOT REPORTED 04/22/2020 CLARITYU Clear 12/25/2018 SPECGRAV 1.013 04/22/2020 LEUKOCYTESUR TRACE 04/22/2020 UROBILINOGEN Normal 04/22/2020 BILIRUBINUR NEGATIVE 04/22/2020 BLOODU MODERATE 12/25/2018 GLUCOSEU NEGATIVE 04/22/2020 KETUA NEGATIVE 04/22/2020 AMORPHOUS NOT REPORTED 04/22/2020 Urine Sodium: Lab Results Component Value Date MARY JO 60 04/22/2020 Urine Potassium: Lab Results Component Value Date KUR 21.4 04/22/2020 Urine Chloride: Lab Results Component Value Date CLUR 49 04/22/2020 Urine Creatinine: Lab Results Component Value Date LABCREA 53.8 04/22/2020 Radiology: Reviewed as available. Assessment: 1. Acute Kidney Injury likely due to ATN from underlying infection, also seems to have some prerenal factors as the creatinine did start to improve with IV fluids and further complicated by use of diuretics at home. Baseline creatinine currently not available. Her creatinine at outlying facility before admission was 6.1 mg/DL. Improving slowly. 2. Acute hyperkalemia likely due to underlying acute renal dysfunction, decreased distal sodium delivery and also further complicated by use of potassium supplements at home. Now seems to be improving, potassium at outlying facility was 7.0 initially. Potassium at 4.5 yesterday. No labs available for today. 3. COVID-19 infection. ID following for the same. Covid antibodies positive. 4. ?Right hip infection, ID on board. 5. Lactic acidosis. 6. Elevated CK myoglobin. Rhabdomyolysis? 7. Morbid obesity. 8. Anemia. 9. Leukocytosis. 10. UTI. 11. History of being dialysis dependent for about 6 weeks in around September 2018, now has been off of dialysis since a while. 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 12. Hypotension requiring pressor support. 13. Diabetes type 2. 14. Essential hypertension. 15. History of PE and DVT. 16. History of pelvic fracture. Plan: 1. Continue gentle hydration IV fluids to 50 cc an hour normal saline. 2. Continue monitor strict I's and O's renal function. 3. COVID-19 treatment as per infectious disease. 4. Currently on antibiotics, be careful with vancomycin as patient had history of vancomycin toxicity and being dialysis dependent in the past. 5. Continue to hold diuretics for now. 6. Obtain CBC and BMP. 7. Will follow. Nutrition Please ensure that patient is on a renal diet/TF. Avoid nephrotoxic drugs/contrast exposure. We will continue to follow along with you. Ad Brian M.D. Internal Medicine Resident , PGY-3 [facility] 04/23/20 1:18 PM This note is created with the assistance of a speech-recognition program. While intending to generate a document that actually reflects the content of the visit, no guarantees can be provided that every mistake has been identified and corrected by editing. * Marizol Rodriguez, [facility] 04/23/2020 11:51 AM EST Pharmacy Vancomycin Consult Vancomycin Day: 3 Current Dosing: dosing based on random levels Temp max: afebrile Recent Labs 04/21/20 2259 04/22/20 0443 BUN 34* 31* Recent Labs 04/21/20 2259 04/22/20 0443 CREATININE 1.86* 1.42* Recent Labs 04/21/20 1607 04/22/20 0443 WBC 12.0* 8.5 Intake/Output Summary (Last 24 hours) at 04/23/2020 1149 Last data filed at 04/23/2020 1145 Gross per 24 hour Intake 914.17 ml Output 2170 ml Net -1255.83 ml Culture Date Source Results 04/21/20 urine e.faecalis Ht Readings from Last 1 Encounters: 04/21/20 5' 9 (1.753 m) Wt Readings from Last 1 Encounters: 04/23/20 (!) 415 lb (188.2 kg) Body mass index is 61.28 kg/m . Estimated Creatinine Clearance: 97 mL/min (A) (based on SCr of 1.42 mg/dL (H)). Random: 12.6 mcg/ml Assessment/Plan: Random level indicated adequate clearance of vancomycin. Will initiate regimen of 2000mg IV q24 hours. Will continue to monitor renal function and levels as clinically indicated. Marizol Rodriguez Pharm.D., [facility] 04/23/2020 11:51 AM * Madan Sandra, PT - 04/23/2020 11:14 AM EST Physical Therapy Facility/Department: [address] [place] Initial Assessment NAME: Lisa Mcdaniels : 1980 Date of Service: 04/23/2020 Discharge Recommendations: Patient would benefit from continued therapy after discharge Assessment Body structures, Functions, Activity limitations: Decreased functional mobility ;Decreased endurance;Decreased strength;Increased pain Assessment: The pt took 3-4 steps with a RW x min assist. She reported increased pain with mobilization. She could benefit from a continuation of PT for gait training and strengthening Prognosis: Good Decision Making: Medium Complexity PT Education: Goals;PT Role;Plan of Care REQUIRES PT FOLLOW UP: Yes Activity Tolerance Activity Tolerance: Patient limited by fatigue;Patient limited by pain Patient Diagnosis(es): There were no encounter diagnoses. has a past medical history of MARCIE (acute kidney injury) ([facility]), Anemia, Anxiety, Bipolar 1 disorder ([facility]), Cellulitis, COVID-19, Diabetes mellitus ([facility]), DVT (deep venous thrombosis) ([facility]), Hypertension, Migraine, Obesity, PE (pulmonary thromboembolism) ([facility]), and Pelvis fracture ([facility]). has a past surgical history that includes Cholecystectomy; Tonsillectomy; section; and picc powerpic triple (04/21/2020). Restrictions Restrictions/Precautions Required Braces or Orthoses?: No Position Activity Restriction Other position/activity restrictions: up with assistance; Pt reports WBAT from pevlic injury in january Vision/Hearing Vision: Impaired Vision Exceptions: Wears glasses for reading Hearing: Within functional limits Subjective General Patient assessed for rehabilitation services?: Yes Response To Previous Treatment: Not applicable Family / Caregiver Present: No Follows Commands: Within Functional Limits Subjective Subjective: RN and pt agreeable to PT eval Pain Screening Patient Currently in Pain: Yes Pain Assessment Pain Assessment: 0-10 Pain Level: 8 Pain Location: Hip Pain Orientation: Right Vital Signs Patient Currently in Pain: Yes Orientation Orientation Overall Orientation Status: Within Normal Limits Social/Functional History Social/Functional History Lives With: Spouse Type of Home: House Home Layout: One level Home Access: Stairs to enter with rails Entrance Stairs - Number of Steps: 5 Entrance Stairs - Rails: Both Bathroom Shower/Tub: Tub only, Walk-in shower Bathroom Toilet: Standard Bathroom Accessibility: Accessible Receives Help From: Family ADL Assistance: Independent Homemaking Assistance: Independent Homemaking Responsibilities: Yes Meal Prep Responsibility: Primary Laundry Responsibility: Primary Cleaning Responsibility: Primary Shopping Responsibility: Primary Ambulation Assistance: Independent Transfer Assistance: Independent Active Stove Refinisher: Yes Mode of Transportation: SUV 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 Additional Comments: Pt reports that being in SNF most recently, above is home information; Pt reports that she has been getting PT/OT at SNF and they have been working on BSC transfers and ADLs progressing towards further distant mobility and standing tolerance with PT. Cognition Objective AROM RLE (degrees) RLE AROM: WFL AROM LLE (degrees) LLE AROM : WFL AROM RUE (degrees) RUE AROM : WFL AROM LUE (degrees) LUE AROM : WFL Strength RLE Strength RLE: WFL Strength LLE Strength LLE: WFL Strength RUE Strength RUE: WFL Strength LUE Strength LUE: WFL Sensation Overall Sensation Status: Impaired Bed mobility Supine to Sit: 2 Person assistance;Maximum assistance(for B LE and for trunk progression) Sit to Supine: Maximum assistance;2 Person assistance(for B LE and guiding the trunk) Scooting: Maximal assistance;2 Person assistance Transfers Sit to Stand: 2 Person Assistance;Minimal Assistance Stand to sit: 2 Person Assistance;Minimal Assistance Ambulation Ambulation?: Yes Ambulation 1 Surface: level tile Device: Rolling Walker Assistance: Minimal assistance Distance: The pt took 3-4 sidesteps towards the head of the bed x min assist Balance Posture: Good Sitting - Static: Good Sitting - Dynamic: Poor Standing - Static: Fair Standing - Dynamic: Fair Plan Plan Times per week: 5-6x wk Current Treatment Recommendations: Strengthening, Functional Mobility Training, Transfer Training, Gait Training, Safety Education & Training, Endurance Training, Stair training, Pain Management Safety Devices Type of devices: Call light within reach, Left in bed, Nurse notified G-Code OutComes Score AM-PAC Score AM-[facility] Inpatient Mobility Raw Score : 14 (04/23/201108) AM-PAC Inpatient T-Scale Score : 38.1 (04/23/201108) Mobility Inpatient CMS 0-100% Score: 61.29 (04/23/201108) Mobility Inpatient CMS G-Code Modifier : CL (04/23/201108) Goals Short term goals Time Frame for Short term goals: 10 visits Short term goal 1: transfers with SBA Short term goal 2: amb 50 ft with a RW x SBA Short term goal 3: ascend/descend 4 steps with SBA Short term goal 4: 20-30 min exercise program x SBA Patient Goals Patient goals : Return home Therapy Time Individual Concurrent Group Co-treatment Time In 0900 Time Out 0928 Minutes 28 Madan Sandra PT * Linda Garcia OT - 04/23/2020 10:02 AM EST Occupational Therapy Occupational Therapy Initial Assessment Date: 04/23/2020 Patient Name: Lisa Mcdaniels : 1980 Date of Service: 04/23/2020 Discharge Recommendations: Patient would benefit from continued therapy after discharge OT Equipment Recommendations Equipment Needed: Yes Mobility Devices: ADL Assistive Devices ADL Assistive Devices: Toileting - Drop Arm Commode, Heavy Duty Drop Arm Commode;Shower Chair with back;Sock-Aid Soft;Network Administrator Assessment Performance deficits / Impairments: Decreased functional mobility ;Decreased ADL status;Decreased endurance;Decreased high-level IADLs;Decreased strength;Decreased safe awareness;Decreased balance Assessment: Patient demonstrates decreased endurance and B LE strength affecting performance and safety with functional tasks.Pt required Max A x2 for bed mobility tasks to sit EOB at SBA for ~8 min with UE support on bed rail. Pt able to complete sit to stand transfer at Min A x2 tolerating ~1 minEOB with x1 side step to the R prior to be returned to EOB. Pt demonstrates a need for extensive support for safe ADL engagement and is unsafe to return home without extensive physical assistance to reduce risk of falls. OT services are warranted to address functional deifcits impacting performanceand safety with ADLs through skilled interveniton for safe return to PLOF. Prognosis: Good Decision Making: Medium Complexity Patient Education: OT role, OT POC, purpose of evaluation, importance of OOB activity, sequencing for bed mobility, hand placement for transfers - fair return REQUIRES OT FOLLOW UP: Yes Activity Tolerance Activity Tolerance: Patient limited by pain;Patient limited by fatigue Activity Tolerance: HR to 122 with activity Safety Devices Safety Devices in place: Yes Type of devices: All fall risk precautions in place;Patient at risk for falls;Call light within reach;Left in bed;Nurse notified;Gait belt Restraints Initially in place: No Patient Diagnosis(es): There were no encounter diagnoses. has a past medical history of MARCIE (acute kidney injury) ([facility]), Anemia, Anxiety, Bipolar 1 disorder ([facility]), Cellulitis, COVID-19, Diabetes mellitus ([facility]), DVT (deep venous thrombosis) ([facility]), Hypertension, Migraine, Obesity, PE (pulmonary thromboembolism) ([facility]), and Pelvis fracture ([facility]). has a past surgical history that includes Cholecystectomy; Tonsillectomy; section; and picc powerpic triple (04/21/2020). Restrictions Restrictions/Precautions Required Braces or Orthoses?: No Position Activity Restriction Other position/activity restrictions: up with assistance; Pt reports WBAT from pevlic injury in january General Patient assessed for rehabilitation services?: Yes Family / Caregiver Present: No General Comment Comments: RN ok'd patient for OT/PT evaluation. Pt pleasant and cooperative throughout evaluation. Pt verbalized struggles in life at this time with husbands illness and her health difficulties within the past 6 months, therapeutic listening provided. Patient Currently in Pain: Yes Pain Assessment Pain Assessment: Faces Pain Level: 8 Patient's Stated Pain Goal: No pain Pain Type: Acute pain;Chronic pain Pain Location: Hip Pain Orientation: Right Pain Descriptors: Aching;Constant Pain Frequency: Continuous Pain Onset: On-going Clinical Progression: Not changed Functional Pain Assessment: Activities are not prevented Non-Pharmaceutical Pain Intervention(s): Ambulation/Increased Activity;Therapeutic presence;Emotional support;Distraction Response to Pain Intervention: Patient Satisfied Vital Signs Resp: 15 Patient Currently in Pain: Yes Oxygen Therapy SpO2: 98 % Pulse Oximeter Device Mode: Continuous Pulse Oximeter Device Location: Finger O2 Device: Nasal cannula O2 Flow Rate (L/min): 2 L/min Social/Functional History Social/Functional History Lives With: Spouse Type of Home: House Home Layout: One level Home Access: Stairs to enter with rails Entrance Stairs - Number of Steps: 5 Entrance Stairs - Rails: Both Bathroom Shower/Tub: Tub only, Walk-in shower Bathroom Toilet: Standard Bathroom Accessibility: Accessible Receives Help From: Family ADL Assistance: Independent Homemaking Assistance: Independent Homemaking Responsibilities: Yes Meal Prep Responsibility: Primary Laundry Responsibility: Primary Cleaning Responsibility: Primary Shopping Responsibility: Primary Ambulation Assistance: Independent Transfer Assistance: Independent Active Stove Refinisher: Yes Mode of Transportation: SUV 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 Additional Comments: Pt reports that being in SNF most recently, above is home information; Pt reports that she has been getting PT/OT at SNF and they have been working on BSC transfers and ADLs progressing towards further distant mobility and standing tolerance with PT. Objective Vision: Impaired Vision Exceptions: Wears glasses for reading Hearing: Within functional limits Balance Sitting Balance: Stand by assistance(EOB for ~8 minutes; demo s/s of discomfort and fatigue) Standing Balance: Contact guard assistance(CGA EOB using RW for ~1 min for linen change, pt unable to tolerate further standing d/t fatigue and pain) Functional Mobility Functional - Mobility Device: Rolling Walker Activity: Other Assist Level: Minimal assistance Functional Mobility Comments: Pt took one side step to the R to HOB and required to return to a seated position ADL Feeding: Independent;Setup Grooming: Modified independent ;Setup UE Bathing: Moderate assistance;Setup;Increased time to complete LE Bathing: Maximum assistance;Increased time to complete;Setup UE Dressing: Moderate assistance;Setup;Increased time to complete LE Dressing: Maximum assistance;Increased time to complete;Setup(Pt required TD to don socks this date) Toileting: Maximum assistance;Increased time to complete;Setup Tone RUE RUE Tone: Normotonic Tone LUE LUE Tone: Normotonic Coordination Movements Are Fluid And Coordinated: Yes Bed mobility Supine to Sit: 2 Person assistance;Maximum assistance(for B LE and for trunk progression) Sit to Supine: Maximum assistance(for B LE and guiding the trunk) Scooting: Maximal assistance Comment: in bariatric bed and with use of bed rails Transfers Sit to stand: 2 Person assistance;Minimal assistance Stand to sit: Minimal assistance Cognition Overall Cognitive Status: WFL Sensation Overall Sensation Status: Impaired(reports numbness and tingling in the R foot) LUE AROM : WFL Left Hand AROM: WFL RUE AROM : WFL Right Hand AROM: WFL LUE Strength Gross LUE Strength: WFL L Hand General: 5/5 RUE Strength Gross RUE Strength: WFL R Hand General: 5/5 Plan Plan Times per week: 3-4x/wk Current Treatment Recommendations: Strengthening, Safety Education & Training, Patient/Caregiver Education & Training, Self-Care / ADL, Equipment Evaluation, Education, & procurement, Endurance Training, Functional Mobility Training, Balance Training AM-PAC Score AM-PAC Inpatient Daily Activity Raw Score: 16 (04/23/20 1003) AM-PAC Inpatient ADL T-Scale Score : 35.96 (04/23/20 1003) ADL Inpatient CMS 0-100% Score: 53.32 (04/23/20 1003) ADL Inpatient CMS G-Code Modifier : CK (04/23/201002) Goals Short term goals Time Frame for Short term goals: Patient will, by discharge Short term goal 1: demo UB ADLs at CGA using AE PRN Short term goal 2: demo LB ADLs at Mod A using AE PRN Short term goal 3: demo functional transfers at CGA Short term goal 4: demo 3+ min of dynamic standing tolerance at CGA to engage in ADLs Short term goal 5: demo bed mobility at Min A Short term goal 6: NOTIFY OTR TO UPDATE POC PATIENT PROGRESSES Therapy Time Individual Concurrent Group Co-treatment Time In 0900 Time Out 0929 Minutes 29 Timed Code Treatment Minutes: 10 Minutes Linda Garcia OTR/L * Smith Diaz MD - 04/23/2020 9:45 AM EST [facility] - Infectious diseases evaluation admission date 04/21/2020 reason for consultation: covid + Impression : Current: Remote Covid, persistent positive test, + AB, no clinical covid illness Septic shock - resolved Acute renal failure improving Hyperkalemia elevated CPK Morbid obesity Right hip fracture 01/2020. No sx, ambulating Allergy severe to PNC swelling and SOB Discussion / summary of stay / plan of care Recommendations Stop vancomycin and cefepime Drop to levaquin po x 7 days for Enterococcus faecalis UTI Ct pevis and CT right hip w contrast and fluid/ mucomyst prep, and repeat CRP - trying to better eval the right hip pain and CT report by remote hospital [facility] lytic lesions- ? Pathological fracture? Disc w med for mucomyst and iv fluid - disc w Dr Sandie lemus who saw her yesterday Pt too large for MRI - would not fit Allergy to PNC but tolerated cefepime + Covid antibodies, removed out of covid isolation Infection Control Recommendations Zebulon Precautions Contact Isolation Airborne isolation Droplet Isolation Antimicrobial Stewardship Recommendations Simplification of therapy Targeted therapy IV to oral conversion Per Kg dosing Coordination ofOutpatient Care: Estimated Length of IV antimicrobials: Patient will need Midline / picc Catheter Insertion: Patient will need SNF: Patient will need outpatient wound care: History of Present Illness: Initial history: Lisa Mcdaniels is a 39 y.o.-year-old female history of Covid in November and needed oxygen at thetime Fracture of the right pelvis after a fall in January, treated conservatively and sent to the SNF and left Home improved 04/18 - arriving home Could not walk the steps and sat down x 2 days before she got attention. this was due to pain of the right hip - presented w headache nausea to the emergency room, was tachycardic hypotensive needing oxygen and pressors. ARF and elevated CK and K. Per report the patient was tested Covid positive - covid AB + as well Procalcitonin 1.5 and white count of 16, creatinine elevated 6 and CRP 19 She was also noticed to have a potassium of 7 Chest x-ray bilateral hazy infiltrates CT of the pelvis only shows lytic bone lesions of the right ischium along with soft tissue mass with nonspecific groundglass opacities bilateral lungs The patient was admitted with septic shock started on Levophed, but due to the positive Covid she was admitted to the Covid unit 04/22 creat better - K better - off pressures No cellulitis Leiva from [facility] was removed - urine seemed cloudy w sediments but she denies dysuria and UAwas contaminated initially, then repeat shows no UTI signs. Interval changes 04/23/2020 Patient Vitals for the past 8 hrs: BP Temp Temp src Pulse Resp SpO2 Weight 04/23/20 0846 15 98 % 04/23/20 0800 109/61 98.7 F (37.1 C) Temporal 72 12 99 % 04/23/20 0337 135/76 97.6 F (36.4 C) Oral 84 17 99 % (!) 415 lb (188.2 kg) Patient seen and examined at bedside. No acute events overnight. States hip pain improving but still persists. Reports chills and nausea but denies fever and vomiting at this time. States she has been using oxygen since diagnosed with COVID, on 2L NC. Denies cough. Afebrile, white count 8.5 Still has pain right hip, CT remote hospital shows lytic lesions and some soft tissue mass - concernes for pathological fracture - no films on MRI on file Urine cx 04/21 +Enterococcus faecalis Summary of relevant labs: Labs: WBC 12 - 8.5 Procal 1.71 Creat 2.57 - 1.86 - 1.42 CRP 237.5 Fibrinogen 605 Micro: Urine cx 04/21 +Enterococcus faecalis Blood cx 04/21 neg Imaging: Renal US 04/[address] of the pelvis only shows lytic bone lesions of the right ischium along with soft tissue mass with nonspecific groundglass opacities bilateral lungs I have personally reviewed the past medical history, past surgical history, medications, social history, and family history, and I haveupdated the database accordingly. Allergies: Penicillins and Darvon [propoxyphene] Review of Systems: Review of Systems Constitutional: Positive for activity change and chills. Negative for appetite change and fever. HENT: Negative for congestion. Eyes: Negative for discharge. Respiratory: Negative for apnea. Cardiovascular: Negative for chest pain. Gastrointestinal: Positive for nausea. Negative for abdominal pain. Endocrine: Negative for heat intolerance. Genitourinary: Negative for dysuria. Musculoskeletal: Positive for arthralgias. Skin: Negative for color change. Allergic/Immunologic: Negative for immunocompromised state. Neurological: Positive for headaches. Hematological: Negative for adenopathy. Psychiatric/Behavioral: Negative for agitation. Physical Examination : Physical Exam Constitutional: Appearance: Normal appearance. She is obese. She is ill-appearing. She is not diaphoretic. HENT: Head: Normocephalic and atraumatic. Nose: No congestion or rhinorrhea. Comments: Nasal canula Mouth/Throat: Mouth: Mucous membranes are moist. Eyes: Conjunctiva/sclera: Conjunctivae normal. Neck: Musculoskeletal: Neck supple. No muscular tenderness. Cardiovascular: Rate and Rhythm: Regular rhythm. Tachycardia present. Heart sounds: Normal heart sounds. No murmur. Pulmonary: Effort: No respiratory distress. Breath sounds: Normal breath sounds. Abdominal: Palpations: Abdomen is soft. Tenderness: There is no abdominal tenderness. There is no guarding. Genitourinary: Comments: Urine kelly Musculoskeletal: General: No swelling or deformity. Skin: General: Skin is dry. Coloration: Skin is not jaundiced. Neurological: Mental Status: She is oriented to person, place, and time. Mental status is at baseline. Cranial Nerves: No cranial nerve deficit. Psychiatric: Mood and Affect: Mood normal. Thought Content: Thought content normal. Past Medical History: Past Medical History: Diagnosis Date MARCIE (acute kidney injury) ([facility]) 04/21/2020 Anemia Anxiety Bipolar 1 disorder ([facility]) Cellulitis bilateral legs COVID-19 11/2019 Diabetes mellitus ([facility]) DVT (deep venous thrombosis) ([facility]) 2014 Hypertension Migraine Obesity 01/07/2017 BMI 67.5 PE (pulmonary thromboembolism) ([facility]) 2014 Pelvis fracture ([facility]) 01/2020 Past Surgical History: Past Surgical History: Procedure Laterality Date SECTION CHOLECYSTECTOMY HC PICC POWERPIC TRIPLE 04/21/2020 TONSILLECTOMY Medications: oxyCODONE-acetaminophen 1 tablet Oral Once [Held by provider] amLODIPine 5 mg Oral Daily megestrol 40 mg Oral Daily [Held by provider] metoprolol tartrate 25 mg Oral BID OXcarbazepine 300 mg Oral QPM pantoprazole 40 mg Oral QAM AC sertraline 50 mg Oral Daily sodium chloride flush 10 mL Intravenous 2 times per day cefepime 2 g Intravenous Q8H Vitamin D 6,000 Units Oral Daily vancomycin (VANCOCIN) intermittent dosing (placeholder) Other RX Placeholder midodrine 10 mg Oral TID WC lidocaine 1 % injection 5 mL Intradermal Once sodium chloride flush 10 mL Intravenous 2 times per day lidocaine 1 % injection 5 mL Intradermal Once sodium chloride flush 10 mL Intravenous 2 times per day insulin lispro 0-12 Units Subcutaneous TID WC insulin lispro 0-6 Units Subcutaneous Nightly heparin (porcine) 10,000 Units Subcutaneous 3 times per day Social History: Social History Socioeconomic History Marital status: Spouse name: steph Number of children: 1 Years of education: Not on file Highest education level: Not on file Occupational History Not on file Social Needs Financial resource strain: Not on file Food insecurity Worry: Not on file Inability: Not on file Transportation needs Medical: Not on file Non-medical: Not on file Tobacco Use Smoking status: Never Smoker Smokeless tobacco: Never Used Substance and Sexual Activity Alcohol use: No Drug use: No Sexual activity: Not on file Lifestyle Physical activity Days per week: Not on file Minutes per session: Not on file Stress: Not on file Relationships Social connections Talks on phone: Not on file Gets together: Not on file Attends episcopal service: Not on file Active member of club or organization: Not on file Attends meetings of clubs or organizations: Not on file Relationship status: Not on file Intimate partner violence Fear of current or ex partner: Not on file Emotionally abused: Not on file Physically abused: Not on file Forced sexual activity: Not on file Other Topics Concern Not on file Social History Narrative Lives With: Spouse Type of Home: House--Home Layout: One level Home Access: Stairs to enter without rails--Entrance Stairs - Number of Steps: 2 Bathroom Shower/Tub: Walk-in shower Bathroom Equipment: (no AD) Home Equipment: (no AD) ADL Assistance: Independent Homemaking Assistance: Independent Ambulation Assistance: Independent Transfer Assistance: Independent Active Stove Refinisher: Yes Lives w family Family History: Family History Problem Relation Age of Onset Stroke Mother Diabetes Father Hypertension Father High Cholesterol Father Medical Decision Making: I have independently reviewed/ordered the following labs: CBC with Differential: Recent Labs 04/21/20 1607 04/22/20 0443 WBC 12.0* 8.5 HGB 9.5* 8.9* HCT 31.3* 30.3* PLT 278 229 LYMPHOPCT 10* -- MONOPCT 9* -- BMP: Recent Labs 04/21/20 2259 04/22/20 0443 NA 135 139 K 5.0 4.5 CL 102 106 CO2 23 23 BUN 34* 31* CREATININE 1.86* 1.42* MG -- 1.8 Hepatic Function Panel: Recent Labs 04/21/20 1607 04/22/20 0443 PROT 6.0* 5.7* LABALBU 2.9* 2.6* BILITOT 0.88 0.62 ALKPHOS 95 89 ALT 27 25 AST 54* 39* No results for input(s): RPR in the last 72 hours. No results for input(s): HIV in the last 72 hours. No results for input(s): BC in the last 72 hours. Lab Results Component Value Date CREATININE 1.42 04/22/2020 GLUCOSE 206 04/22/2020 Detailed results: Thank you for allowing us to participate in the care of this patient.Please call with questions. This note is created with the assistance of a speech recognition program. While intending to generate adocument that actually reflects the content of the visit, the document can still have some errors including those of syntax and sound a like substitutions which may escape proof reading. It such instances, actual meaningcan be extrapolated by contextual diversion. Randi Argueta Office: Perfect serve / office [phone] I have discussed the care of the patient, including pertinent history and exam findings, with the student. I have seen and examined the patient and the mays elements of all parts of the encounter havebeen performed by me. I agree with the assessment, plan and orders as documented by the student Smith Diaz, Infectious Diseases * Lisa Thomas APRN - SRI - 04/23/2020 9:21 AM EST [facility] Office: [phone] Matthew Green DO, Niko Winn DO, Eli Lamb DO, Gabriel Cosme DO, Britney Hooper MD, Viviana Stern MD, Vanessa Yi MD, Kati Mcdaniel MD, Don Anderson MD, Rosalia Espinoza MD, MD Sharmaine, Dandy Go MD, Edson Jackson MD, Reji Houser DO, Trupti Martínez MD, Jhoana Nelson MD, Cristhian Mccoy DO, Salvador Kirby MD, Luci Garcia DO, Javy Minaya MD, MD Ana, Tatyana Velasquez, DECK SUPERVISOR, Radha Conde, DECK SUPERVISOR, Fallon Morrissey, DECK SUPERVISOR, Penny Medina, MILLER APPRENTICE,Andi James, DECK SUPERVISOR, Iraida Samson, DECK SUPERVISOR, Wendy Stephen, DECK SUPERVISOR, Kelly Wallace, DECK SUPERVISOR, Divine Porter, DECK SUPERVISOR, Ottoniel Lozano PA-C, Lisa Thomas, JULISSA, Zoraida Sue, DECK SUPERVISOR, Zuly Rowe, DECK SUPERVISOR, Marychuy Mastesron, DECK SUPERVISOR, Joana Pichardo, DECK SUPERVISOR, Ebony Cole, DECK SUPERVISOR [facility] IN-PATIENT SERVICE [facility] Progress Note 04/23/2020 9:21 AM Name: Lisa Mcdaniels Acct: [id number] Room: [id number] Day: 2 Admit Date: 04/21/2020 12:10 PM PCP: No primary care provider on file. Code Status: Full Code Subjective: C/C: hip pain Interval History Status: not changed. Patient evaluated in room sitting in bed. Blood pressures continue to fluctuate running slightly hypotensive at times. Levophed has been discontinued. Midodrine started. Kidney function continues to improve, renal ultrasound from yesterday reviewed. UOP continues to be good with IV fluids Brief History: Lisa Mcdaniels is a 39 y.o. F who was directly admitted from [facility] ED Apr 21 for the management of Septic shock (HCC). Pt tested + Covid in November and was treated with supplemental oxygen. On Feb 04 she fell and sustained a rt pelvic fracture. Pt was discharged to a SNF where she recently tested Neg for Covid. She left the facility Apr 18. Since dc pt has been unable to walk due to rt hip pain. She reports H/A, F/C and nausea. On presentation to the ED pt was tachycardic and hypotensive. She was tx with 2L Saline, Levophed, Ceftaroline, Clindamycin & Fentanyl. Pt reported covid + but there was no documentation sent to substantiate this. Patient cleared out of isolation precautions per infectious disease Review of Systems: Constitutional: negative for chills, fevers, sweats Respiratory: negative for cough, dyspnea on exertion, shortness of breath, wheezing Cardiovascular: negative for chest pain, chest pressure/discomfort, lower extremity edema, palpitations Gastrointestinal: negative for abdominal pain, constipation, diarrhea, nausea, vomiting Neurological: negative for dizziness, headache Medications: Allergies: Allergies Allergen Reactions Penicillins Swelling tolerated cefepime 04/2020 Darvon [Propoxyphene] Hives Current Meds: Scheduled Meds: oxyCODONE-acetaminophen 1 tablet Oral Once [Held by provider] amLODIPine 5 mg Oral Daily megestrol 40 mg Oral Daily [Held by provider] metoprolol tartrate 25 mg Oral BID OXcarbazepine 300 mg Oral QPM pantoprazole 40 mg Oral QAM AC sertraline 50 mg Oral Daily sodium chloride flush 10 mL Intravenous 2 times per day cefepime 2 g Intravenous Q8H Vitamin D 6,000 Units Oral Daily vancomycin (VANCOCIN) intermittent dosing (placeholder) Other RX Placeholder midodrine 10 mg Oral TID WC lidocaine 1 % injection 5 mL Intradermal Once sodium chloride flush 10 mL Intravenous 2 times per day lidocaine 1 % injection 5 mL Intradermal Once sodium chloride flush 10 mL Intravenous 2 times per day insulin lispro 0-12 Units Subcutaneous TID WC insulin lispro 0-6 Units Subcutaneous Nightly heparin (porcine) 10,000 Units Subcutaneous 3 times per day Continuous Infusions: sodium chloride 50 mL/hr at 04/22/20 2146 norepinephrine Stopped (04/22/20 0805) PRN Meds: albuterol, albuterol sulfate HFA, ALPRAZolam, traMADol, sodium chloride flush, HYDROcodone 5 mg - acetaminophen OR HYDROcodone 5 mg - acetaminophen, sodium chloride flush, sodium chloride flush Data: Past Medical History: has a past medical history of MARCIE (acute kidney injury) ([facility]), Anemia, Anxiety, Bipolar 1 disorder ([facility]), Cellulitis, COVID-19, Diabetes mellitus (HCC), DVT (deep venous thrombosis) ([facility]), Hypertension, Migraine, Obesity, PE (pulmonary thromboembolism) ([facility]), and Pelvis fracture ([facility]). Social History: reports that she has never smoked. She has never used smokeless tobacco. She reports that she does not drink alcohol or use drugs. Family History: Family History Problem Relation Age of Onset Stroke Mother Diabetes Father Hypertension Father High Cholesterol Father Vitals: BP 135/76 Pulse 84 Temp 97.6 F (36.4 C) (Oral) Resp 15 Ht 5' 9 (1.753 m) Wt (!) 415 lb (188.2 kg) SpO2 98% BMI 61.28 kg/m Temp (24hrs), Av.2 F (36.8 C), Min:97.1 F (36.2 C), Max:99.1 F (37.3 C) Recent Labs 04/22/20 1235 04/22/20 1615 04/22/20204904/23/20 0759 POCGLU 162* 121* 145* 116* I/O (24Hr): Intake/Output Summary (Last 24 hours) at 04/23/2020 0921 Last data filed at 04/23/2020 0900 Gross per 24 hour Intake 776.67 ml Output 2050 ml Net -1273.33 ml Labs: Hematology: Recent Labs 04/21/20 1607 04/22/20 0443 WBC 12.0* 8.5 RBC 3.81* 3.56* HGB 9.5* 8.9* HCT 31.3* 30.3* MCV 82.2* 85.1 MCH 24.9* 25.0* MCHC 30.4 29.4 RDW 19.9* 19.7* PLT 278 229 MPV 10.1 10.4 CRP 237.5* -- Chemistry: Recent Labs 04/21/20 1607 04/21/20 2259 04/22/20 0443 04/23/20 0827 NA 137 135 139 -- K 5.1 5.0 4.5 -- CL 102 102 106 -- CO2 21 23 23 -- GLUCOSE 182* 235* 206* -- BUN 42* 34* 31* -- CREATININE 2.57* 1.86* 1.42* -- MG -- -- 1.8 -- ANIONGAP 14 10 10 -- LABGLOM 21* 30* 41* -- GFRAA 25* 37* 50* -- CALCIUM 8.2* 7.9* 8.2* -- CAION -- -- -- 1.11* PHOS -- -- 2.8 -- TROPHS 17* -- -- -- CKTOTAL 1,836* -- 1,058* -- MYOGLOBIN 484* -- 152* -- Recent Labs 04/21/20 1607 04/21/20 1607 04/21/20202404/22/20 0443 04/22/20 0803 04/22/20 1235 04/22/20 1615 04/22/20204904/23/20 0759 PROT 6.0* -- -- 5.7* -- -- -- -- -- LABALBU 2.9* -- -- 2.6* -- -- -- -- -- LABA1C 5.7 -- -- -- -- -- -- -- -- TSH 0.91 -- -- -- -- -- -- -- -- AST 54* -- -- 39* -- -- -- -- -- ALT 27 -- -- 25 -- -- -- -- -- LDH 422* -- -- -- -- -- -- -- -- ALKPHOS 95 -- -- 89 -- -- -- -- -- BILITOT 0.88 -- -- 0.62 -- -- -- -- -- POCGLU -- < > 233* -- 147* 162* 121* 145* 116* < > = values in this interval not displayed. ABG:No results found for: POCPH, PHART, PH, POCPCO2, EVE7HTH, PCO2, POCPO2, PO2ART, PO2, POCHCO3, NTM4SPW, HCO3, NBEA, PBEA, BEART, BE, THGBART, THB, BXS9PEC, VUIS9QDB, R6QUUDVL, O2SAT, FIO2 Lab Results Component Value Date/Time SPECIAL LT HAND 6ML 04/21/2020 04:02 PM Lab Results Component Value Date/Time CULTURE NO GROWTH 2 DAYS 04/21/2020 04:02 PM Radiology: Us Renal Limited Result Date: 04/22/2020 Essentially unremarkable renal ultrasound Physical Examination: General appearance: alert, cooperative and no distress Mental Status: oriented to person, place and time and normal affect Lungs: clear to auscultation bilaterally, normal effort Heart: regular rate and rhythm, no murmur Abdomen: soft, nontender, nondistended, normal bowel sounds, no masses, hepatomegaly, splenomegaly Extremities: no edema, redness, tenderness in the calves Skin: no gross lesions, rashes, induration Assessment: Hospital Problems Last Modified POA * (Principal) Septic shock (HCC) 04/21/2020 Yes Diabetes (HCC) (Chronic) 04/21/2020 Yes Morbid obesity due to excess calories (HCC) (Chronic) 04/21/2020 Yes Lactic acid acidosis 04/21/2020 Yes Pelvic fracture (HCC) (Chronic) 04/21/2020 Yes Non-traumatic rhabdomyolysis 04/21/2020 Yes COVID-19 04/21/2020 Yes Overview Signed 04/21/2020 6:13 PM by Penny Medina APRN - MILLER APPRENTICE + Covid November 2019 MARCIE (acute kidney injury) ([facility]) 04/21/2020 Yes Plan: 1. Septic shock: Continue antibiotics. ID consulted. Continue cefepime 2. Nontraumatic rhabdo: With acute kidney injury, nephrology following. Continue IV fluids 3. Hypovolemic hypotension: Worsened by septic shock. Continue IV fluids. Hold antihypertensives. Levophed weaned, midodrine initiated. 4. History of COVID-19 viral infection: Removed out isolation precautions per infectious disease recommendations 5. Poor p.o. intake 6. Depression with anxiety: Continue Xanax, Zoloft 7. Diabetes mellitus type 2: A.m. blood sugar within normal limits. Continue KARMA. Monitor patientfor hyper/hypoglycemic events 8. GI/DVT prophylaxis: Protonix, heparin RUSS Aldana NP 04/23/2020 9:21 AM * Alex Hooper MD - 04/22/2020 5:58 PM EST Renal Progress Note Patient : Lisa Mcdaniels; 39 y.o. Location: 3011/3011-01 Attending: Jesús Nguyen MD Admit Date: 04/21/2020 Hospital Day: 1 Subjective: Patient was laying in bed, quite comfortable. No new issues reported overnight. Urine output documented as 3.6 L in the last 24 hours. Serum creatinine did improve to 1.42 mg/DL today. Did have some hypotensive episodes overnight, currently doing okay. Renal ultrasound 04/22/2020: Right kidney 12.8 cm, left kidney 12 cm. Impression: Essentially unremarkable renal ultrasound. Outpatient Medications: Medications Prior to Admission: traMADol (ULTRAM) 50 MG tablet, Take 50 mg by mouth every 6 hours as needed. megestrol (MEGACE) 40 MG tablet, Take 40 mg by mouth daily sertraline (ZOLOFT) 50 MG tablet, Take 1 tablet by mouth daily docusate sodium (COLACE) 100 MG capsule, Take 1 capsule by mouth daily as needed for Constipation amLODIPine (NORVASC) 5 MG tablet, Take 1 tablet by mouth daily albuterol (PROVENTIL) (2.5 MG/3ML) 0.083% nebulizer solution, Take 3 mLs by nebulization every 6 hours as needed for Wheezing ondansetron (ZOFRAN ODT) 4 MG disintegrating tablet, Take 1 tablet by mouth every 8 hours as neededfor Nausea pantoprazole (PROTONIX) 40 MG tablet, Take 1 tablet by mouth every morning (before breakfast) diclofenac sodium 1 % GEL, Apply 2 g topically 4 times daily miconazole (MICOTIN) 2 % powder, Apply topically 2 times daily. metoprolol tartrate (LOPRESSOR) 25 MG tablet, take 1 tablet by mouth twice a day potassium chloride (KLOR-CON M) 20 MEQ TBCR extended release tablet, Take 20 mEq by mouth daily (with breakfast) furosemide (LASIX) 40 MG tablet, Take 40 mg by mouth daily OXcarbazepine (TRILEPTAL) 300 MG tablet, Take 300 mg by mouth every evening At bedtime albuterol sulfate HFA (PROVENTIL HFA) 108 (90 Base) MCG/ACT inhaler, Inhale 2 puffs into the lungs every 6 hours as needed for Wheezing or Shortness of Breath (Space out to every 6 hours as symptoms improve) Space out to every 6 hours as symptoms improve. ALPRAZolam (XANAX) 1 MG tablet, Take 1 mg by mouth 2 times daily as needed. . Current Medications: Scheduled Meds: [Held by provider] amLODIPine 5 mg Oral Daily megestrol 40 mg Oral Daily [Held by provider] metoprolol tartrate 25 mg Oral BID OXcarbazepine 300 mg Oral QPM pantoprazole 40 mg Oral QAM AC sertraline 50 mg Oral Daily sodium chloride flush 10 mL Intravenous 2 times per day cefepime 2 g Intravenous Q8H Vitamin D 6,000 Units Oral Daily vancomycin (VANCOCIN) intermittent dosing (placeholder) Other RX Placeholder midodrine 10 mg Oral TID WC lidocaine 1 % injection 5 mL Intradermal Once sodium chloride flush 10 mL Intravenous 2 times per day lidocaine 1 % injection 5 mL Intradermal Once sodium chloride flush 10 mL Intravenous 2 times per day insulin lispro 0-12 Units Subcutaneous TID WC insulin lispro 0-6 Units Subcutaneous Nightly heparin (porcine) 10,000 Units Subcutaneous 3 times per day Continuous Infusions: sodium chloride 150 mL/hr at 04/22/20 0406 norepinephrine Stopped (04/22/20 0805) PRN Meds: albuterol, albuterol sulfate HFA, ALPRAZolam, traMADol, sodium chloride flush, HYDROcodone 5 mg - acetaminophen OR HYDROcodone 5 mg - acetaminophen, sodium chloride flush, sodium chloride flush Input/Output: I/O last 3 completed shifts: In: 3281.3 [P.O.:360; I.V.:2921.3] Out: 3125 [Urine:3125]. Patient Vitals for the past 96 hrs (Last 3 readings): Weight 04/22/20 0600 (!) 411 lb (186.4 kg) 04/21/20 1435 (!) 408 lb (185.1 kg) 04/21/20 1215 (!) 472 lb (214.1 kg) Vital Signs: Temperature: Temp: 99.1 F (37.3 C) TMax: Temp (24hrs), Av.4 F (36.9 C), Min:97.7 F (36.5 C), Max:99.1 F (37.3 C) Respirations: Resp: 16 Pulse: Pulse: 87 BP: BP: (!) 87/56 BP Range: Systolic (24hrs), Av , Min:87 , Max:116 Diastolic (24hrs), Av, Min:55, Max:56 Physical Examination: Due to the current efforts to prevent transmission of COVID-19 and also the need to preserve PPE for other caregivers, a [id number] encounter with the patient was not performed. That being said, all relevant records and diagnostic tests were reviewed, including laboratory results and imaging. I did evaluate the patient through the room window and was in no distress. Case was discussed with involved healthcare workers as required. Labs: Recent Labs 04/21/20 1607 04/22/20 0443 WBC 12.0* 8.5 RBC 3.81* 3.56* HGB 9.5* 8.9* HCT 31.3* 30.3* MCV 82.2* 85.1 MCH 24.9* 25.0* MCHC 30.4 29.4 RDW 19.9* 19.7* PLT 278 229 MPV 10.1 10.4 BMP: Recent Labs 04/21/20 1607 04/21/20 2259 04/22/20 0443 NA 137 135 139 K 5.1 5.0 4.5 CL 102 102 106 CO2 21 23 23 BUN 42* 34* 31* CREATININE 2.57* 1.86* 1.42* GLUCOSE 182* 235* 206* CALCIUM 8.2* 7.9* 8.2* Phosphorus: Recent Labs 04/22/20 0443 PHOS 2.8 Magnesium: Recent Labs 04/22/20 0443 MG 1.8 Albumin: Recent Labs 04/21/20 1607 04/22/20 0443 LABALBU 2.9* 2.6* SPEP: Lab Results Component Value Date PROT 5.7 04/22/2020 Urinalysis/Chemistries: Lab Results Component Value Date NITRU NEGATIVE 04/22/2020 COLORU YELLOW 04/22/2020 PHUR 6.0 04/22/2020 WBCUA 2 TO 5 04/22/2020 RBCUA 2 TO 5 04/22/2020 MUCUS NOT REPORTED 04/22/2020 TRICHOMONAS NOT REPORTED 04/22/2020 YEAST NOT REPORTED 04/22/2020 BACTERIA NOT REPORTED 04/22/2020 CLARITYU Clear 12/25/2018 SPECGRAV 1.013 04/22/2020 LEUKOCYTESUR TRACE 04/22/2020 UROBILINOGEN Normal 04/22/2020 BILIRUBINUR NEGATIVE 04/22/2020 BLOODU MODERATE 12/25/2018 GLUCOSEU NEGATIVE 04/22/2020 KETUA NEGATIVE 04/22/2020 AMORPHOUS NOT REPORTED 04/22/2020 Urine Sodium: Lab Results Component Value Date MARY JO 60 04/22/2020 Urine Potassium: Lab Results Component Value Date KUR 21.4 04/22/2020 Urine Chloride: Lab Results Component Value Date CLUR 49 04/22/2020 Urine Creatinine: Lab Results Component Value Date LABCREA 53.8 04/22/2020 Radiology: Reviewed. Assessment: 1. Acute Kidney Injury likely due to ATN from underlying infection, also seems to have some prerenal factors as the creatinine did start to improve with IV fluids and further complicated by use of diuretics at home. Baseline creatinine currently not available. Her creatinine at outlying facility before admission was 6.1 mg/DL. 2. Acute hyperkalemia likely due to underlying acute renal dysfunction, decreased distal sodium delivery and also further complicated by use of potassium supplements at home. Now seems to be improving, potassium at outlying facility was 7.0 initially. Now improved to 5.1 today. 3. COVID-19 infection. 4. ?Right hip infection, ID on board. 5. Lactic acidosis. 6. Elevated CK myoglobin. 7. Morbid obesity. 8. Anemia. 9. Leukocytosis. 10. UTI. 11. History of being dialysis dependent for about 6 weeks in around September 2018, now has been off of dialysis since a while. 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 12. Hypotension requiring pressor support. 13. Diabetes type 2. 14. Essential hypertension. 15. History of PE and DVT. 16. History of pelvic fracture. Plan: 1. Decrease IV fluids to 50 cc an hour normal saline. 2. Continue monitor strict I's and O's renal function. 3. COVID-19 treatment as per infectious disease. 4. Currently on antibiotics, be careful with vancomycin as patient had history of vancomycin toxicity and being dialysis dependent in the past. 5. Continue to hold diuretics for now. 6. BMP in AM. 7. Will follow. Nutrition Please ensure that patient is on a renal diet/TF. Avoid nephrotoxic drugs/contrast exposure. We will continue to follow along with you. Alex Hooper MD [facility] This note is created with the assistance of a speech-recognition program. While intending to generate a document that actually reflects the content of the visit, no guarantees can be provided that every mistake has been identified and corrected by editing. * Ruby Miller OT - 04/22/2020 3:28 PM EST Occupational Therapy Not Seen Note DATE: 04/22/2020 Name: Lisa Mcdaniels : 1980 Patient not available for Occupational Therapy due to: Other: Evaluation attempted this date however ultrasound at bedside to complete renal ultrasound. OT to check back tomorrow Next Scheduled Treatment: 04/23/2020 * Awa Tolentino PT - 04/22/2020 3:03 PM EST Physical Therapy DATE: 04/22/2020 NAME: Lisa Mcdaniels : 1980 Patient not seen this date for Physical Therapy due to: [] Blood transfusion in progress [] Hemodialysis [] Patient Declined [] Spine Precautions [] Strict Bedrest [] Surgery/ Procedure [x] Testing: evaluation attempted, bedside ultrasound present for bedside testing. PT will check back as time allows or 04/23/20. [] Other [] PT is being discontinued at this time. Patient independent. No further needs. [] PT is being discontinued at this time due to declining physical/ medical status. Therapy is not appropriate at this time. Awa Tolentino PT * Jolie Sebastian MD - 04/22/2020 1:07 PM EST PULMONARY & CRITICAL CARE MEDICINE PROGRESS NOTE Patient: Lisa Mcdaniels Admit date: 04/21/2020 Primary Care Physician: No primary care provider on file. Consulting Physician: Jesús Nguyen MD CODE Status: Full Code LOS: 1 SUBJECTIVE CHIEF COMPLAINT/REASON FOR INITIAL CONSULT: BRIEF HOSPITAL COURSE: The patient is a 39 y.o. female The patient is a 39 y.o. female she has history of diabetes mellitus, severe morbid obesity, hypertension, previous history of MARCIE, possible CKD, previous history of DVT/PE in 2015 not on chronic anticoagulation therapy. According to patient she was initially tested positive for COVID-19 on December 04 it is not known whatkind of treatment she has. At the end of January she had a fall and apparently she had a pelvic fracture and right hip pain she has not been very mobile since then. She was in rehab facility and according to patient she had a Covid testing done at that time at the end of January and she was still positive at that time. According to patient she was not feeling well she has significant pain shewas not mobile she was also having fever, nausea pain decreased appetite not eating well right hip pain was much worse. She presented to [facility] yesterday where she was hypotensive. She was found in MARCIE with creatinine of greater than 6 potassium was elevated at 7 and BUN was 57. She has mild lactic acidelevation of 3.4 high CK myoglobin was elevated, WBC was increased to 17. She received fluid boluses there and she was started on Levophed drip. She had a repeat creatinine done which was apparently down to around 3 and potassium improved to 5.7. She had a CT done of abdominal pelvis which showed a right ischial destructive bone lesion with mass concern for osteomyelitis. Lung bases shows nonspecific groundglass changes on CT scan of the abdomen. She had not been on any oxygen and on room air. She was transferred to Covid unit because of hypotension and apparently Covid test was positive although no documentation of Covid testing from [facility] was found. INTERVAL HISTORY: 04/22/20 Overnight events seen she remained hypotensive and required Levophed until this morning and this morning Levophed is weaning off. Her systolic blood pressure is between 90 to 100 systolic she is not tachycardic she is comfortable and she is on room air most of the time except at night when she required 2 L nasal cannula, she had refused CPAP BiPAP when I discussed with her yesterday. She was seen by infectious disease and she is on cefepime vancomycin. She is on IV fluid she was seen by nephrology. Creatinine improved from 1.86- 1.42 today BUN is 31 bicarbonate is 23 and potassium is 4.5 REVIEW OF SYSTEMS: Review of Systems Constitutional: Positive for appetite change, fatigue . HENT: Negative for postnasal drip, sinus pressure, sinus pain, sore throat and voice change. Eyes: Negative for photophobia, pain, discharge, redness and visual disturbance. Respiratory: Positive for apnea. Negative for cough, choking, chest tightness, shortness of breath and wheezing. Cardiovascular: Negative for chest pain, palpitations and leg swelling. Gastrointestinal: . Negative for abdominal distention, abdominal pain, blood in stool, rectal pain and vomiting. Endocrine: Negative for polydipsia, polyphagia and polyuria. Genitourinary: Negative for dysuria, frequency and urgency. Musculoskeletal: Positive for arthralgias and back pain. Skin: Negative for color change and rash. Neurological: Negative for dizziness, seizures, facial asymmetry, speech difficulty, light-headedness and numbness. Hematological: Negative for adenopathy. Does not bruise/bleed easily. Psychiatric/Behavioral: Positive for decreased concentration. OBJECTIVE PaO2/FiO2 RATIO: No results for input(s): POCPO2 in the last 72 hours. VITAL SIGNS: LAST: BP (!) 87/56 Pulse 88 Temp 98.8 F (37.1 C) (Oral) Resp 15 Ht 5' 9 (1.753 m) Wt (!) 411 lb (186.4 kg) SpO2 92% BMI 60.69 kg/m 8-24 HR RANGE: TEMP Temp Av.3 F (36.8 C) Min: 97.7 F (36.5 C) Max: 99.1 F (37.3 C) BP Systolic (24hrs), Av , Min:63 , Max:116 Diastolic (24hrs), Av, Min:21, Max:56 PULSE Pulse Av.7 Min: 66 Max: 123 RR Resp Av.4 Min: 9 Max: 17 O2 SAT SpO2 Av.6 % Min: 92 % Max: 100 % OXYGEN DELIVERY O2 Flow Rate (L/min) Av L/min Min: 2 L/min Max: 2 L/min SYSTEMIC EXAMINATION: General appearance -comfortable not in distress Mental status - awake & alert, follows commands Eyes - pupils equal and reactive, sclera anicteric Mouth - mucous membranes moist, pharynx normal without lesions large tongue Mallampati 3 Neck - supple, no significant adenopathy, carotids upstroke normal bilaterally, no bruits Chest - Breath sounds bilaterally were dimnished to auscultation at bases. There were no wheezes, rhonchi or rales. There is no intercostal recession or use of accessory muscles Heart - normal rate, regular rhythm, normal S1, S2, no murmurs, rubs, clicks or gallops Abdomen -large pannus, no fluctuation redness or cellulitis, soft, nontender, nondistended, no masses or organomegaly Neurological - non-focal move all extremities deep tendon reflexes and motor intact Extremities - peripheral pulses normal, no pedal edema, no clubbing or cyanosis Skin - normal coloration and turgor, no rashes, no suspicious skin lesions noted DATA REVIEW Medications: Current Inpatient Scheduled Meds: [Held by provider] amLODIPine 5 mg Oral Daily megestrol 40 mg Oral Daily [Held by provider] metoprolol tartrate 25 mg Oral BID OXcarbazepine 300 mg Oral QPM pantoprazole 40 mg Oral QAM AC sertraline 50 mg Oral Daily sodium chloride flush 10 mL Intravenous 2 times per day cefepime 2 g Intravenous Q8H Vitamin D 6,000 Units Oral Daily vancomycin (VANCOCIN) intermittent dosing (placeholder) Other RX Placeholder midodrine 10 mg Oral TID WC lidocaine 1 % injection 5 mL Intradermal Once sodium chloride flush 10 mL Intravenous 2 times per day lidocaine 1 % injection 5 mL Intradermal Once sodium chloride flush 10 mL Intravenous 2 times per day insulin lispro 0-12 Units Subcutaneous TID WC insulin lispro 0-6 Units Subcutaneous Nightly heparin (porcine) 10,000 Units Subcutaneous 3 times per day Continuous Infusions: sodium chloride 150 mL/hr at 04/22/20 0406 norepinephrine Stopped (04/22/20 0805) INPUT/OUTPUT: In: 3281.3 [P.O.:360; I.V.:2921.3] Out: 3000 [Urine:3000] Date 04/22/20 - 04/22/202358 Shift 5276-5781 8582-7457 5197-5661 24 Hour Total INTAKE P.O.(mL/kg/hr) 360(0.2) 360 I.V.(mL/kg) 1241.6(6.7) 1241.6(6.7) Shift Total(mL/kg) 1601.6(8.6) 1601.6(8.6) OUTPUT Urine(mL/kg/hr) 1200(0.8) 150 1350 Shift Total(mL/kg) 1200(6.4) 150(0.8) 1350(7.2) Weight (kg) 186.4 186.4 186.4 186.4 LABS: ABGs: No results for input(s): POCPH, POCPCO2, POCPO2, POCHCO3, MGRK1KMY in the last 72 hours. CBC: Recent Labs 04/21/20 16004/22/20 0443 WBC 12.0* 8.5 HGB 9.5* 8.9* HCT 31.3* 30.3* MCV 82.2* 85.1 PLT 278 229 LYMPHOPCT 10* -- RBC 3.81* 3.56* MCH 24.9* 25.0* MCHC 30.4 29.4 RDW 19.9* 19.7* CRP: Recent Labs 04/21/20 160 CRP 237.5* LDH: Recent Labs 04/21/20 160 LDH 422* BMP: Recent Labs 04/21/20 1607 04/21/20 2259 04/22/20 0443 NA 137 135 139 K 5.1 5.0 4.5 CL 102 102 106 CO2 21 23 23 BUN 42* 34* 31* CREATININE 2.57* 1.86* 1.42* GLUCOSE 182* 235* 206* PHOS -- -- 2.8 Liver Function Test: Recent Labs 04/21/20 1607 04/22/20 0443 PROT 6.0* 5.7* LABALBU 2.9* 2.6* ALT 27 25 AST 54* 39* ALKPHOS 95 89 BILITOT 0.88 0.62 Coagulation Profile: No results for input(s): INR, PROTIME, APTT in the last 72 hours. D-Dimer: No results for input(s): DDIMER in the last 72 hours. Ferritin: Recent Labs 04/21/20 160 FERRITIN 196* Lactic Acid: No results for input(s): LACTA in the last 72 hours. Cardiac Enzymes: Recent Labs 04/21/20 1607 04/22/20 0443 CKTOTAL 1,836* 1,058* BNP/ProBNP: No results for input(s): BNP, PROBNP in the last 72 hours. Triglycerides: No results for input(s): TRIG in the last 72 hours. Microbiology: Recent Labs 04/21/20 1602 SPECDESC .BLOOD SPECIAL LT HAND 6ML CULTURE NO GROWTH 7 HOURS Pathology: Radiology Reports: US RENAL LIMITED Final Result Essentially unremarkable renal ultrasound Echocardiogram: No results found for this or any previous visit. ASSESSMENT AND PLAN Assessment: Shock likely septic shock associated with hypovolemia. Hypovolemic shock. Acute renal failure secondary to hypovolemia/shock. Hyperkalemia improved COVID-19 positivity/infection Right hip pain with history of pelvic fracture. 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 Diabetes mellitus. Hypertension. Hyperlipidemia. Plan: I personally interviewed/examined the patient; reviewed interval history, interpreted all availableradiographic and laboratory data at the time of service. Weaned off Levophed drip. Continue with midodrine IV fluid to continue adjustment per nephrology Follow-up blood culture from Germain Mishraus. Infectious disease evaluation and follow-up. On cefepime and vancomycin. Suggest orthopedics evaluation. She is currently on room air no respiratory complaint at this time. Continue supplemental O2 at night order selector urine output and renal function and electrolytes. Will use supplemental oxygen to keep oxygen saturation >90% Discussed with patient about CPAP/BiPAP at night. According to patient she did use CPAP in rehabilitation/ECF and she did not tolerated she does not want to use CPAP. Chemical DVT prophylaxis as per protocol Glycemic control per primary service Skin/wound care reviewed with the nursing staff Physical/occupational therapy Okay to transfer to stepdown unit once she is off Levophed and continue to remain off Levophed and maintain systolic blood pressure above 90 to 100. Once she is transferred to stepdown unit critical care will sign off Was The patient is/remains critically ill with illness/injury that acutely impairs one or more vital organ systems, such that there is a high probability of imminent or life threatening deterioration in the patient's condition. Critical care time of 35 minutes was spent (excluding procedures), in coordination of care during bedside rounds and discussion of patient care in detail, and recommendations of the team were adopted in the plan. Necessity of all invasive devices was also confirmed. Jolie Sebastian M.D. Pulmonary and Critical Care Medicine 04/22/2020, 1:07 PM This patient was evaluated in the context of the global SARS-CoV-2 (COVID-19) pandemic, which necessitated considerations that the patient either has COVID-19 infection or is at risk of infection with COVID-19. Institutional protocols and algorithms that pertain to the evaluation & management of patients with COVID- 19 or those at risk for COVID-19 are in a state of rapid changes based on infor mation released by regulatory bodies including the CDC and federal and state organizations. These policies and algorithms were followed during the patient's care. Please note that this chart was generated using voice recognition Review Trackers dictation software. Although every effort was made to ensure the accuracy of this automated telephone information clerk, some errors in telephone information clerk may have occurred. * Jesús Nguyen MD - 04/22/2020 10:55 AM EST [facility] Office: [phone] Matthew Green DO, Niko Winn DO, Eli Lamb DO, Gabriel Cosme DO, Britney Hooper MD, Viviana Stern MD, Vanessa Yi MD, Kati Mcdaniel MD, Don Anderson MD, Rosalia Espinoza MD, MD Sharmaine, Dandy Go MD, Edson Jackson MD, Reji Houser DO, Trupti Martínez MD, Jhoana Nelson MD, Cristhian Mccoy DO, Salvador Kirby MD, Luci Garcia DO, Javy Minaya MD, MD nAa, Tatyana Velasquez, DECK SUPERVISOR, Radha Conde DECK SUPERVISOR, Fallon Morrissey, DECK SUPERVISOR, Penny Medina, MILLER APPRENTICE,Andi James, DECK SUPERVISOR, Iraida Samson, DECK SUPERVISOR, Wendy Stephen, DECK SUPERVISOR, Kelly Wallace, DECK SUPERVISOR, Divine Porter, DECK SUPERVISOR, EPIFANIO PalmaC, Lsia Thomas, JULISSA, Zoraida Sue, DECK SUPERVISOR, Zuly Rowe, DECK SUPERVISOR, Marychuy Masterson, DECK SUPERVISOR, Joana Pichardo CNP, Ebony Cole CNP [facility] IN-PATIENT SERVICE [facility] Progress Note 04/22/2020 10:55 AM Name: Lisa Mcdaniels Acct: [id number] Room: 3011/3011-01 Day: 1 Admit Date: 04/21/2020 12:10 PM PCP: No primary care provider on file. Code Status: Full Code Subjective: C/C: hip pain Interval History Status: not changed. No issues overnight COVID Ab positive Ok to remove isolation Discussed with ID No other complaints Still minimal PO intake Brief History: Lisa Mcdaniels is a 39 y.o. F who was directly admitted from [facility] ED Apr 21 for the management of Septic shock (HCC). Pt tested + Covid in November and was treated with supplemental oxygen. On Feb 04 she fell and sustained a rt pelvic fracture. Pt was discharged to a SNF where she recently tested Neg for Covid. She left the facility Apr 18. Since dc pt has been unable to walk due to rt hip pain. She reports H/A, F/C and nausea. On presentation to the ED pt was tachycardic and hypotensive. She was tx with 2L Saline, Levophed, Ceftaroline, Clindamycin & Fentanyl. Pt reported covid + but there was no documentation sent to substantiate this. Pertinent Diagnostics on Transfer: WBC 16.9, Hgb 11.9, platelet 372, Pt 15.7, INR 1.4, BUN 57, Creat 6.1, K 7 --> 5.7, Gap 25, ALP 97, ALT 36, AST 84, lactic acid 3.4, CRP 19.9, myoglobin >3680, CK 4245, Procalciton 1.51 UA: WNL CXR: Hazy bilat lung markings EKG: Sinus tach at 127 CT abd/pelvis without contrast: Destructive lytic bone lesion involes the rt ischium with associated soft tissue mass. Nonspecific ground glass densities bilat lung bases. Fat containing umbilical hernia, 4cm dermoid in rt ovary. Review of Systems: Constitutional: negative for chills, fevers, positive for fatigue Respiratory: negative for cough, dyspnea on exertion, shortness of breath, wheezing Cardiovascular: negative for chest pain, chest pressure/discomfort Gastrointestinal: negative for abdominal pain, constipation, diarrhea, nausea, vomiting Neurological: negative for dizziness, headache Medications: Allergies: Allergies Allergen Reactions Penicillins Swelling Darvon [Propoxyphene] Hives Current Meds: Scheduled Meds: vancomycin 2,000 mg Intravenous Once [Held by provider] amLODIPine 5 mg Oral Daily megestrol 40 mg Oral Daily [Held by provider] metoprolol tartrate 25 mg Oral BID OXcarbazepine 300 mg Oral QPM pantoprazole 40 mg Oral QAM AC sertraline 50 mg Oral Daily sodium chloride flush 10 mL Intravenous 2 times per day cefepime 2 g Intravenous Q8H Vitamin D 6,000 Units Oral Daily vancomycin (VANCOCIN) intermittent dosing (placeholder) Other RX Placeholder midodrine 10 mg Oral TID WC lidocaine 1 % injection 5 mL Intradermal Once sodium chloride flush 10 mL Intravenous 2 times per day lidocaine 1 % injection 5 mL Intradermal Once sodium chloride flush 10 mL Intravenous 2 times per day insulin lispro 0-12 Units Subcutaneous TID WC insulin lispro 0-6 Units Subcutaneous Nightly heparin (porcine) 10,000 Units Subcutaneous 3 times per day Continuous Infusions: sodium chloride 150 mL/hr at 04/22/20 0406 norepinephrine Stopped (04/22/20 0805) PRN Meds: albuterol, albuterol sulfate HFA, ALPRAZolam, traMADol, sodium chloride flush, HYDROcodone 5 mg - acetaminophen OR HYDROcodone 5 mg - acetaminophen, sodium chloride flush, sodium chloride flush Data: Past Medical History: has a past medical history of MARCIE (acute kidney injury) ([facility]), Anemia, Anxiety, Bipolar 1 disorder ([facility]), Cellulitis, COVID-19, Diabetes mellitus ([facility]), DVT (deep venous thrombosis) ([facility]), Hypertension, Migraine, Obesity, PE (pulmonary thromboembolism) ([facility]), and Pelvis fracture ([facility]). Social History: reports that she has never smoked. She has never used smokeless tobacco. She reports that she does not drink alcohol or use drugs. Family History: Family History Problem Relation Age of Onset Stroke Mother Diabetes Father Hypertension Father High Cholesterol Father Vitals: BP (!) 87/56 Pulse 88 Temp 98.8 F (37.1 C) (Oral) Resp 15 Ht 5' 9 (1.753 m) Wt (!) 411 lb (186.4 kg) SpO2 92% BMI 60.69 kg/m Temp (24hrs), Av.3 F (36.8 C), Min:97.7 F (36.5 C), Max:99.1 F (37.3 C) Recent Labs 04/21/20185804/21/20202404/22/20 0803 POCGLU 233* 233* 147* I/O (24Hr): Intake/Output Summary (Last 24 hours) at 04/22/2020 1055 Last data filed at 04/22/2020 0800 Gross per 24 hour Intake 3281.25 ml Output 3775 ml Net -493.75 ml Labs: Hematology: Recent Labs 04/21/20160604/22/20442 WBC 12.0* 8.5 RBC 3.81* 3.56* HGB 9.5* 8.9* HCT 31.3* 30.3* MCV 82.2* 85.1 MCH 24.9* 25.0* MCHC 30.4 29.4 RDW 19.9* 19.7* PLT 278 229 MPV 10.1 10.4 CRP 237.5* -- Chemistry: Recent Labs 04/21/20160604/21/20225804/22/20 044 NA 137 135 139 K 5.1 5.0 4.5 CL 102 102 106 CO2 21 23 23 GLUCOSE 182* 235* 206* BUN 42* 34* 31* CREATININE 2.57* 1.86* 1.42* MG -- -- 1.8 ANIONGAP 14 10 10 LABGLOM 21* 30* 41* GFRAA 25* 37* 50* CALCIUM 8.2* 7.9* 8.2* PHOS -- -- 2.8 TROPHS 17* -- -- CKTOTAL 1,836* -- 1,058* MYOGLOBIN 484* -- 152* Recent Labs 04/21/20160604/21/20185804/21/20202404/22/20 0443 04/22/20 0803 PROT 6.0* -- -- 5.7* -- LABALBU 2.9* -- -- 2.6* -- LABA1C 5.7 -- -- -- -- TSH 0.91 -- -- -- -- AST 54* -- -- 39* -- ALT 27 -- -- 25 -- LDH 422* -- -- -- -- ALKPHOS 95 -- -- 89 -- BILITOT 0.88 -- -- 0.62 -- POCGLU -- 233* 233* -- 147* ABG:No results found for: POCPH, PHART, PH, POCPCO2, HZZ6LXU, PCO2, POCPO2, PO2ART, PO2, POCHCO3, HBA7ZZO, HCO3, NBEA, PBEA, BEART, BE, THGBART, THB, VTD4ACH, EFPI9XRB, U0CLDIIY, O2SAT, FIO2 Lab Results Component Value Date/Time SPECIAL LT HAND 6ML 04/21/2020 04:02 PM Lab Results Component Value Date/Time CULTURE NO GROWTH 7 HOURS 04/21/2020 04:02 PM Radiology: No results found. Physical Examination: General appearance: alert, cooperative and no distress, obese Mental Status: oriented to person, place and time Lungs: clear to auscultation bilaterally, normal effort Heart: regular rate and rhythm Abdomen: soft, nontender, nondistended, normal bowel sounds Extremities: no edema, redness, tenderness in the calves Skin: no gross lesions, rashes, induration Assessment: Hospital Problems Last Modified POA * (Principal) Septic shock (HCC) 04/21/2020 Yes Diabetes (HCC) (Chronic) 04/21/2020 Yes Morbid obesity due to excess calories (HCC) (Chronic) 04/21/2020 Yes Lactic acid acidosis 04/21/2020 Yes Pelvic fracture (HCC) (Chronic) 04/21/2020 Yes Non-traumatic rhabdomyolysis 04/21/2020 Yes COVID-19 04/21/2020 Yes Overview Signed 04/21/2020 6:13 PM by Penny Medina APRN - MILLER APPRENTICE + Covid November 2019 MARCIE (acute kidney injury) ([facility]) 04/21/2020 Yes Plan: - Vitals, labs, imaging, medications reviewed - ID consulted - prior covid infection, antibody positive - remove isolation - continue vanc/cefepime - Nephrology following - continue IVF - Pulmonology following - continue levophed, start midodrine - Monitor renal function/creatinine - Antibiotics per ID - Hold BP medications - Continue midodrine 10 TID - Weaned off pressor support - Remove isolation, discussed with ID transfer to floor - Discussed with RN Jesús Nguyen MD 04/22/2020 10:55 AM * Branden Nilda, [facility] - 04/21/2020 12:44 PM EST Pharmacy Note Vancomycin Consult Lisa Mcdaniels is a 39 y.o. female started on Vancomycin for Sepsis; consult received from Dr. Eli Lamb to manage therapy. Also receiving the following antibiotics: Maxipime. Patient Active Problem List Diagnosis Cellulitis and abscess of leg Sepsis (HCC) Diabetes (HCC) Morbid obesity due to excess calories (HCC) Leg pain, left Umbilical hernia Ruptured varicosity Iron deficiency anemia Anticoagulated Acute cystitis with hematuria-Klebsiella oxytoca Gait abnormality DVT (deep vein thrombosis) in PE (pulmonary thromboembolism) (HCC) Hypertension Migraine Cellulitis Lactic acid acidosis Skin ulcer, limited to breakdown of skin (HCC) Septic shock (HCC) Allergies: Darvon [propoxyphene] Temp max: n/a No results for input(s): BUN in the last 72 hours. No results for input(s): CREATININE in the last 72 hours. No results for input(s): WBC in the last 72 hours. No intake or output data in the 24 hours ending 04/21/20 1237 Culture Date Source Results 04/21/2020 Blood sent Ht Readings from Last 1 Encounters: 04/21/20 5' 9 (1.753 m) Wt Readings from Last 1 Encounters: 04/21/20 (!) 472 lb (214.1 kg) Body mass index is 69.7 kg/m . CrCl cannot be calculated (Patient's most recent lab result is older than the maximum 10 days allowed.). Goal Trough Level: 10 - 20 mcg/mL Assessment/Plan: Will initiate Vancomycin at 2000 mg IV x 1 dose until serum creatinine known. Further dosing based on renal function. Timing of trough level will be determined based on culture results, renal function, and clinical response. Thank you for the consult. Will continue to follow. Nilda Otero, Pharm D. 04/21/2020 12:39 PM documented in this encounter Assessments Diagnosis Cellulitis of abdominal wall- Primary Cellulitis and abscess of trunk Leg pain, left Pain in limb Cellulitis Cellulitis and abscess of unspecified site Hypertension Unspecified essential hypertension Morbid obesity due to excess calories (HCC) Diabetes (HCC) Lactic acid acidosis Acidosis Skin ulcer, limited to breakdown of skin (HCC) Diagnosis Septic shock (HCC)- Primary Acute osteomyelitis of right pelvic region and thigh (HCC) Diabetes (HCC) Morbid obesity due to excess calories (HCC) Pelvic fracture (HCC) Unspecified closed fracture of pelvis Non-traumatic rhabdomyolysis Lactic acid acidosis Acidosis COVID-19 MARCIE (acute kidney injury) (HCC) Acute kidney failure, unspecified Reason for Referral Status Reason Specialty Diagnoses / Procedures Referre d By Contact Referred To Contact Open Radiology Diagnoses Acute osteomyelitis of right pelvic region and thigh (HCC) Procedures NM BONE SCAN 3 PHASE NM BONE SCAN 3 PHASE Smith Diaz MD [facility], [address] [place] [address] Phone: [phone] Chief Complaint and Reason for Visit Chief Complaint [id number] E11.9 I10 C83.39 E11.9 I10 Additional Source Comments INFORMATION SOURCE (unrecogn ized section and content) DATE CREATED AUTHOR 10/27/2017 [facility] DATE CREATED AUTHOR AUTHOR'S ORGANIZ ATION 12/01/2018 [facility] DATE CREATED AUTHOR AUTHOR'S ORGANIZ ATION 01/08/2019 [facility] DATE CREATED AUTHOR AUTHOR'S ORGANIZ ATION 12/17/2019 [facility] DATE CREATED AUTHOR AUTHOR'S ORGANIZ ATION 06/01/2020 [facility] DATE CREATED AUTHOR AUTHOR'S ORGANIZ ATION 07/05/2020 [facility] DATE CREATED AUTHOR AUTHOR'S ORGANIZ ATION 08/04/2020 [facility] DATE CREATED AUTHOR AUTHOR'S ORGANIZ ATION 10/23/2020 [facility] DATE CREATED AUTHOR AUTHOR'S ORGANIZ ATION 04/15/2021 [facility] DATE CREATED AUTHOR AUTHOR'S ORGANIZ ATION 04/24/2021 [facility] DATE CREATED AUTHOR AUTHOR'S ORGANIZ ATION 06/07/2021 [facility] DATE CREATED AUTHOR AUTHOR'S ORGANIZ ATION 09/26/2021 [facility] DATE CREATED AUTHOR AUTHOR'S ORGANIZ ATION 12/30/2022 [facility] DATE CREATED AUTHOR AUTHOR'S ORGANIZ ATION 01/29/2023 [facility] DATE CREATED AUTHOR AUTHOR'S ORGANIZ ATION 04/15/2023 [facility] DATE CREATED AUTHOR AUTHOR'S ORGANIZ ATION 10/08/2023 [facility] DATE CREATED AUTHOR AUTHOR'S ORGANIZ ATION 11/23/2023 [facility] DATE CREATED AUTHOR AUTHOR'S ORGANIZ ATION 02/10/2024 [facility] DATE CREATED AUTHOR AUTHOR'S ORGANIZ ATION 02/21/2024 [facility] EPIC Reason for Visit (unrecogniz ed section and content) Reason Comments Wound Infection abdomin Status Reason Specialty Diagnoses / Procedures Referre d By Contact Referred To Contact Diagnoses Cellulitis Zaria Shah MD [address] [place] [address] [facility] Status Reason Specialty Diagnoses / Procedures Referre d By Contact Referred To Contact Diagnoses Septic shock (HCC) sepsis with shock Kati Mcdaniel MD [address] [place] [address] [facility] Reason Comments Chest Pain Reason Comments Chest Pain lt side since 0300 t his am Reason Comments Debridement of Nail Specialty Diagnoses / Procedures Referred By Contac t Referred To Contact Orthopedics / ORTHOPAEDIC SURGERY Diagnoses right hip pain pt to have xrays dropped off Procedures [facility] Gamal Yin PA-C [address] [place] [address] Referral ID Status Reason Start Date Expiration Date Visits Requested Visits Authorized [id number] Authorized Financial Clearance Not Required 08/07/2021 09/05/2021 99 99 Reason Comments DM Foot Care Dm nail care Ordered Prescriptions (unrec ognized section and content) Prescription Sig Dispensed Refills Start Date End Da te cefTRIAXone (ROCEPHIN) infusion Infuse 2,000 mg intravenously every 12 hours for 28 days Compound per protocol Stop after 05/26/20 and call D Aouad before pulling line Do the bone scan before the AB is over 112 g 0 04/28/2020 05/26/2020 ALPRAZolam (XANAX) 1 MG tabletIndications:Acut e osteomyelitis of right pelvic region and thigh (HCC) Take 1 tablet by mouth 3 times daily as needed for Anxiety for up to 30 days. 0 04/28/2020 05/28/2020 oxyCODONE-acetaminophe n (PERCOCET) 5-325 MG per tabletIndications:Acut e osteomyelitis of right pelvic region and thigh (HCC) Take 1 tablet by mouth once for 1 dose. 0 04/28/2020 04/28/2020 levoFLOXacin (LEVAQUIN) 500 MG tablet Take 1 tablet by mouth daily for 7 days 7 tablet 0 04/23/2020 04/28/2020 Prescription Sig Dispensed Refills Start Date End Da te ondansetron (ZOFRAN-ODT) [address] 1 tablet under the tongue 3 times daily as needed for Nausea or Vomiting 15 tablet 0 03/19/2021 03/24/2021 albuterol sulfate HFA (VENTOLIN HFA) 108 (90 Base) MCG/ACT inhaler Inhale 2 puffs into the lungs every 4 hours as needed for Wheezing or Shortness of Breath 18 g 0 03/19/2021 benzonatate (TESSALON) 100 MG capsule Take 1-2 capsules by mouth 3 times daily as needed for Cough 60 capsule 0 03/19/2021 03/29/2021 guaiFENesin (MUCINEX) 600 MG extended release tablet Take 1 tablet by mouth 2 times daily for 15 days 30 tablet 0 03/19/2021 04/03/2021 Prescription Sig Dispensed Refills Start Date End Da te hydrOXYzine (VISTARIL) 25 MG capsule Take 2 capsules by mouth 2 times daily as needed for Anxiety 60 capsule 0 04/23/2021 05/23/2021 Scheduled Active and Recently Administ ered Medications (unrecognized section and content) Medication Order 03/17/2021 03/18/2021 03/19/2021 0.9 % sodium chloride bolus (COMPLETED) 500 mL, IntraVENous, at 250 mL/hr, Administer over 2 Hours, ONCE, On Agnieszka 03/19/21 at 0032, For 1 dose 0101 (New Bag - Prov ider: Neda Thornton RN)0454 (Stopped - Provider: Eulalia Knight RN) morphine (PF) injection 2 mg (COMPLETED) 2 mg, IntraVENous, ONCE, On Agnieszka 03/19/21 at 0234, For 1 dose, If oral and IV narcotics ordered, use oral first and only use IV if oral is ineffective or cannot take oral. Do Not give oral and IV within 1 hour of each other unless specifically ordered. 0258 (Given - Provid er: Eulalia Knight RN) ondansetron (ZOFRAN) injection 4 mg (COMPLETED) 4 mg, IntraVENous, ONCE, On Agnieszka 03/19/21 at 0234, For 1 dose 0257 (Given - Provid er: Eulalia Knight RN) PRN Medication Order 03/17/2021 03/18/2021 03/19/2021 iopamidol (ISOVUE-370) 76 % injection 100 mL (COMPLETED) 100 mL, IntraVENous, IMG ONCE PRN, Other, Starting on Agnieszka 03/19/21 at 0034, For 1 dose 0149 (Given - Provid er: Mando Arteaga) Scheduled Medication Order 04/21/2021 04/22/2021 04/23/2021 0.9 % sodium chloride bolus (COMPLETED) 1,000 mL, IntraVENous, at 500 mL/hr, Administer over 2 Hours, ONCE, On Agnieszka 04/23/21 at 1011, For 1 dose 1108 (New Bag - Prov ider: Irvin Weir RN)1315 (Stopped - Provider: Irvin Weir RN) acetaminophen (TYLENOL) tablet 1,000 mg (COMPLETED) 1,000 mg, Oral, ONCE, On Agnieszka 04/23/21 at 1011, For 1 dose, Maximum dose of acetaminophen is 4000 mg from all sources in 24 hours. 1108 (Given - Provid er: Irvin Weir RN) ketorolac (TORADOL) injection 30 mg (COMPLETED) 30 mg, IntraVENous, ONCE, On Agnieszka 04/23/21 at 1011, For 1 dose, Do not administer for more than 5 days. 1110 (Given - Provid er: Irvin Weir RN) LORazepam (ATIVAN) injection 1 mg (COMPLETED) 1 mg, IntraVENous, ONCE, On Agnieszka 04/23/21 at 1011, For 1 dose 1111 (Given - Provid er: Irvin Weir RN) morphine sulfate (PF) injection 4 mg (COMPLETED) 4 mg, IntraVENous, ONCE, On Agnieszka 04/23/21 at 1258, For 1 dose, If oral and IV narcotics ordered, use oral first and only use IV if oral is ineffective or cannot take oral. Do Not give oral and IV within 1 hour of each other unless specifically ordered. 1306 (Given - Provid er: Irvin Weir RN) ondansetron (ZOFRAN) injection 4 mg 4 mg, IntraVENous, ONCE, On Agnieszka 04/23/21 at 1258, For 1 dose 1328 (Not Given - Pr ovider: Irvin Weir RN - Reason: Other - Comment: not nauseated) sodium chloride flush 0.9 % injection 10 mL 10 mL, IntraVENous, 2 TIMES DAILY, First dose on Agnieszka 04/23/21 at 1158 1158 (Due)2100 (Due) PRN Medication Order 04/21/2021 04/22/2021 04/23/2021 iopamidol (ISOVUE-300) 61 % injection 100 mL (COMPLETED) 100 mL, IntraVENous, IMG ONCE PRN, Other, Starting on Agnieszka 04/23/21 at 1157, For 1 dose 1236 (Given - Provid er: Carin Kovacs) No Frequency Medication Order 04/21/2021 04/22/2021 04/23/2021 ondansetron (ZOFRAN) 4 MG/2ML injection (COMPLETED) Starting on Agnieszka 04/23/21 at 1106, For 1 dose, Irvin Weir: cabinet override 1108 (Given - Provid er: Irvin Weir RN) Care Teams (unrecognized sec tion and content) Frame Operator Relationship Specialty Start Date End Date Justin Lebron MD [address] [place] [address] PCP - General Family Medicine 04/23/21 Frame Operator Relationship Specialty Start Date End Date Rajendra Saldana PCP - General Family Practice 09/16/16 Frame Operator Relationship Specialty Start Date End Date Rajendra Saldana PCP - General Family Practice 09/16/16 Frame Operator Relationship Specialty Start Date End Date Rajendra Saldana PCP - General Family Practice 09/16/16 Frame Operator Relationship Specialty Start Date End Date Rajendra Saldana PCP - General Family Practice 09/16/16 Frame Operator Relationship Specialty Start Date End Date Rajendra Saldana PCP - General Family Practice 09/16/16 Team Status: Inactive Member Role Status Dates NON STAFF Attending Provider Active Team Status: Inactive Member Role Status Dates Mignon Childress Attending Provider Active Team Status: Inactive Member Role Status Dates PHYSICIAN NO FAMILY Primary Care Provider Active Mignon Childress Attending Provider Active Team Status: Inactive Member Role Status Dates Mignon Childress Attending Provider Active PHYSICIAN NO FAMILY Primary Care Provider Active Frame Operator Relationship Specialty Start Date End Date Unallocated, Higinio Abdi MD [address] [place] [id number] PCP - General 11/19/22 Lyndsay Barahona MD [address] [facility] [address] [place] [address] Referring Physician Family Medicine 11/19/22 Frame Operator Relationship Specialty Start Date End Date Unallocated, Higinio Abdi MD [address] [place] [id number] PCP - General 11/19/22 Lyndsay Barahona MD [address] [facility] [address] [place] [address] Referring Physician Family Medicine 11/19/22 Source Comments (unrecognize d section and content) In the event this informatio n is protected by the Federal Confidentiality of Alcohol and Drug Abuse Patient Records regulations: The Federal rules restrict any use of the information to criminally investigate or prosecute any alcohol or drug abuse patient.[facility] HealthIn the event this information is protected by the Federal Confidentiality of Alcohol and Drug Abuse Patient Records regulations: The Federal rules restrict any use of the information to criminally investigate or prosecute any alcohol or drug abuse patient.[facility] HealthIn the event this information is protected by the Federal Confidentiality of Alcohol and Drug Abuse Patient Records regulations: The Federal rules restrict any use of the information to criminally investigate or prosecute any alcohol or drug abuse patient.[facility] HealthIn the event this information is protected by the Federal Confidentiality of Alcohol and Drug Abuse Patient Records regulations: The Federal rules restrict any use of the information to criminally investigate or prosecute any alcohol or drug abuse patient.[facility] HealthIn the event this information is protected by the Federal Confidentiality of Alcohol and Drug Abuse Patient Records regulations: The Federal rules restrict any use of the information to criminally investigate or prosecute any alcohol or drug abuse patient.[facility] Goals (unrecognized section and content) Goals may be documented in a n alternate section FOR RECORDS PERTAINING TO PATIENTS WHO ARE OR HAVE BEEN ENROLLED IN A CHEMICAL DEPENDENCY/SUBSTANCEABUSE PROGRAM, SOME INFORMATION MAY BE OMITTED. This clinical summary was aggregated from multiple sources. Caution should be exercised in using it in the provision of clinical care. This summary normalizes information from multiple sources, and as a consequence, information in this document may materially change the coding, format and clinical context of patient data. In addition, data may be omitted in some cases. CLINICAL DECISIONS SHOULD BE BASED ON THE PRIMARY CLINICAL RECORDS. [facility] [employer] [facility]. provides no warranty or guarantee of the accuracy or completeness of information in this document.
[2024-03-20 07:32] VITALS: BP 99/59; PULSE 60; TEMP 36.4; O2SAT 96
--- NOTE | 2024-03-20 07:47 | CM.NOTE ---
Rounds made with Dr. Mohan, redness to abdomen has improved. Dr. Mohan will change pt to OBS status and discharge to home this afternoon after IV dose of antibiotics.
[2024-03-20] MEDS: MAGNESIUM OXIDE 400 MG TABLET PO (08:19)
[2024-03-20 08:31] VITALS: O2SAT 96
[2024-03-20 11:47] LABS: Glucometer 91 mg/dL (74-106)
[2024-03-20 11:52] VITALS: BP 114/73; PULSE 58; O2SAT 95
--- NOTE | 2024-03-20 14:05 | P.DS_ITS ---
DS: Providers Provider Date of admission: 03/19/24 10:54 Primary care physician: Garret Andino NP DS: Diagnosis Discharge Diagnosis (1) UTI (urinary tract infection): (2) Cellulitis of abdominal wall: (3) Gastric bypass status for obesity: Plan Admission findings: Hypotension, fever to 103.7, normal white blood cell count but with significant left shift, thrombocytopenia, positive lactic acidosis, positive CRP, elevated BNP, resulting in sepsis Abdominal wall cellulitis resulting in sepsis with lactic acidosis-time of d ischarge Acute elevation in BNP can and exam consistent with acute combined congestive heart failure-improving at the time of discharge Hypomagnesemia-supplement Hyperbilirubinemia-CT scan not consistent with acute changes on liver-monitor as an outpatient NIDDM-by history-will check Accu-Cheks, likely elevated secondary to the sepsis as outlined above Status post gastric bypass-diet management Thrombocytopenia likely secondary to the sepsis-monitor daily Iron deficiency anemia-likely secondary to gastric bypass-monitor daily Admission status: Patient with rapidly progressing over the last 12 to 16 hours cellulitis of the abdominal wall-history of this in the past. With the rapid progression, combined with the acute combined congestive heart failure and workup for that, medically necessary treatment will span 2 midnights. Inpatient status. ? DS: Summary Hospital Course Hospital Course: Patient with a history of recurrent abdominal wall cellulitis presented to emergency room with increasing pain and erythema and calor, CT scan did not show any abscess formation. Laboratory results consistent with sepsis. Patient was treated with IV antibiotics and fluids. Treated with Cipro and clindamycin. The following morning she was much improved the erythema is well inside the line of demarcation. She is no longer tender in her abdomen the calor is still persisting erythema is persisting but much improved. Patient did improve faster than anticipated. She feels comfortable going home, in light of the antibiotics chosen the and oral form as well will discharge patient to home in improving condition. Medications see list. Follow-up with her PCP within the next week. Time Spent with Patient Time attestation: Total time spent providing and/or coordinating discharge services: Exam Constitutional Vital Signs, click to edit/add: Last Vital Signs Temp 97.5 F L 03/20/24 07:32 Pulse 58 L 03/20/24 11:52 Resp 18 03/20/24 11:52 BP 114/73 03/20/24 11:52 Pulse Ox 95 03/20/24 11:52 O2 Del Method Room Air 03/20/24 11:52 Documenting provider has reviewed patient's vital signs: yes Common normals: no apparent distress [facility] Common normals: normocephalic Chest Common normals: inspection of chest normal Respiratory Common normals: normal respiratory effort and no retractions; not clear to ascultation bilaterally Auscultation: rales (In the bases) Cardio Common normals: regular rate and regular rhythm GI Common normals: negative for Normal to inspection, nondistended, normoactive bowel sounds present (Erythema well inside line of demarcation, faint, less calor but persisting) Extremity Common normals: abnormal to inspection (2-3+ edema bilateral lower extremities) Neuro Common normals: oriented x3 DS: Data Data Completed and Pending Labs on day of discharge: Labs from last 24 hours 03/20/24 03/20/24 03/19/24 11:46 05:42 19:29 WBC 3.4 L RBC 3.08 L Hgb 9.4 L Hct 28.5 L MCV 92.5 MCH 30.5 MCHC 33.0 RDW 14.4 Plt Count 114 L MPV 10.2 Neut % (Auto) 51.2 Lymph % (Auto) 34.5 Haakon % (Auto) 8.0 Eos % (Auto) 5.7 Baso % (Auto) 0.3 Neut # (Auto) 1.7 Lymph # (Auto) 1.2 Haakon # (Auto) 0.3 Eos # (Auto) 0.2 Baso # (Auto) 0.0 Abs Immat Gran (auto) 0.01 Imm/Tot Granulo (auto) 0.3 Sodium 146 H Potassium 3.5 Chloride 110 H Carbon Dioxide 26.6 Anion Gap 12.9 BUN 13.0 Creatinine 0.64 Est GFR ( Amer) >60 Est GFR (Non-Af Amer) >60 BUN/Creatinine Ratio 20.3 Glucose 92 Calcium 7.7 L Total Bilirubin 0.8 AST 27 ALT 21 Alkaline Phosphatase 80 C-Reactive Protein 6.05 H NT-Pro-B Natriuret Pep 964.0 H* Total Protein 5.2 L Albumin 2.2 L Globulin 3.0 Albumin/Globulin Ratio 0.7 POC Glucose 91 102 03/19/24 16:41 WBC RBC Hgb Hct MCV MCH MCHC RDW Plt Count MPV Neut % (Auto) Lymph % (Auto) Haakon % (Auto) Eos % (Auto) Baso % (Auto) Neut # (Auto) Lymph # (Auto) Haakon # (Auto) Eos # (Auto) Baso # (Auto) Abs Immat Gran (auto) Imm/Tot Granulo (auto) Sodium Potassium Chloride Carbon Dioxide Anion Gap BUN Creatinine Est GFR ( Amer) Est GFR (Non-Af Amer) BUN/Creatinine Ratio Glucose Calcium Total Bilirubin AST ALT Alkaline Phosphatase C-Reactive Protein NT-Pro-B Natriuret Pep Total Protein Albumin Globulin Albumin/Globulin Ratio POC Glucose 93 Discharge Plan Discharge Disposition: Home, Self-Care Condition: Good Discharge Medications: New ciprofloxacin HCl [Cipro] 500 mg tablet 500 mg PO Q12H Qty: 30 0RF clindamycin HCl [Cleocin HCl] 300 mg capsule 300 mg PO Q6H Qty: 60 0RF Activity: increase activity as tolerated Diet: advance to your usual diet Print Language: Romanian Patient Instructions: Cellulitis (ED) Forms: Portal Instructions Follow Up Appointments: Please follow up with PCP for 5-7 days following discharge. [phone] Discharge Date/Time: 03/20/24 12:55
--- NOTE | 2024-03-22 15:59 | CM.DCFOLLOWU ---
1st attempt 03/22/24, no answer
--- NOTE | 2024-03-26 11:54 | CM.DCFOLLOWU ---
Person spoke with:patient How are you feeling?well How is your pain?none Did you understand your discharge instructions?yes Do you have any questions about your discharge instructions?no Were you given any prescriptions at discharge?yes Were you able to get your prescriptions filled?yes Do you understand how to take your medications as ordered?yes Do you have any questions about your follow up appointment and do you plan to keep your follow up appointment? no questions, she has attempted to call her PCP several times, no call back from them. Advised pt to continue to call and leave messages to schedule appt. Is there anything else that you would like to discuss?no Questions/Comments/Concerns/Other:na
== END 2024-03-20 12:55 | disposition home or self-care (01) ==
LOC: ER 21:45 → MS 03-20 06:57
PROVIDERS: Personal Emergency Response Attendant; Registered Nurse; Admitting Provider Family Medicine; Emergency Provider Emergency Medicine; PCP Nurse Practitioner Family; Visit Provider Family Medicine
DX: A41.9 Sepsis, unspecified organism (principal); N39.0 Urinary tract infection, site not specified; L03.311 Cellulitis of abdominal wall; I50.41 Acute combined systolic (congestive) and diastolic (congestive) heart failure; D69.6 Thrombocytopenia, unspecified; E87.20 Acidosis, unspecified; Z88.0 Allergy status to penicillin; E83.42 Hypomagnesemia; E80.6 Other disorders of bilirubin metabolism; E11.9 Type 2 diabetes mellitus without complications; D50.9 Iron deficiency anemia, unspecified; Z98.84 Bariatric surgery status; R79.82 Elevated C-reactive protein (CRP); B96.20 Unspecified Escherichia coli [E. coli] as the cause of diseases classified elsewhere
CPT/HCPCS: 36415; 71045; 74177; 80053; 81001; 82948; 83605; 83735; 83880; 84484; 85025; 85610; 85652; 85730; 86140; 87040; 87086; 87150; 87186; 93005; 93306; 94761; 96365; 96366; 96367; 96375; 99285; G0378; J0736; J0744; J1940; J3010; Q9966; Q9967